=== PATIENT | male | born 1965 | race Caucasian/White ===

== ENCOUNTER 2019-09-02 09:08 | Inpatient (IN) | payer MEDICARE, MEDICAID ==
--- NOTE | 2019-09-02 09:14 | ED ---
Psych HPI <Vandana Roberts - Last Filed: 09/02/19 09:22> <Jose Guadalupe Burnham - Last Filed: 09/02/19 18:23> <Vivian Chavez - Last Filed: 09/06/19 10:39> - General Stated Complaint: Mental Health - History of Present Illness Initial Comments: 54yo male with history of depression on wellbutrin and seroquel, who is a patient at [facility] presenting to the emergency department today for cc of suicidal ideations with plan. Patient states he thought about cutting himself with a s harp razor blade in order to end his life, patient denies attempt. Denies overdose or other methods of suicidal ideation. Patient denies homicidal ideations. No fire arms in the home. Patient denies additional complaints. Patient denies any recent fever, chills, shortness of breath, chest pain, back pain, abdominal pain, nausea or vomiting, numbness or tingling, dysuria or hematuria, constipation or diarrhea, headaches or visual changes, or any other complaints. (Vandana Roberts) - Related Data Previous Rx's Medication Instructions Recorded Clotrimazole Cream [Lotrimin Cream] 1 applic TOPICAL DAILY #1 dose 09/06/19 Cyclobenzaprine [Flexeril] 10 mg PO TID PRN 30 Days tab 09/06/19 DULoxetine HCL [Cymbalta] 30 mg PO BID 30 Days capsule. 09/06/19 Diazepam [Valium] 5 mg PO BID 30 Days tab 09/06/19 Diclofenac Sodium [Voltaren] 75 mg PO BID 30 Days tab 09/06/19 Disulfiram [Antabuse] 250 mg PO DAILY 30 Days tab 09/06/19 Fluticasone Nasal [place] [Flonase 2 spr EA NOSTRIL DAILY PRN #1 spray 09/06/19 Nasal [place]] Gabapentin 800 mg PO TID 30 Days tab 09/06/19 Melatonin 20 mg PO HS PRN 30 Days tab 09/06/19 Nicotine 14Mg/24Hr Patch [Habitrol] 1 patch TRANSDERM DAILY 14 Days 09/06/19 patch Pantoprazole [Protonix] 40 mg PO HS 30 Days tablet. 09/06/19 Pravastatin Sodium [Pravachol] 40 mg PO DAILY 30 Days tab 04/11/20 QUEtiapine [SEROquel] 200 mg PO HS 30 Days tab 09/06/19 Sennosides-Docusate Sodium 1 each PO BID 30 Days tab 09/06/19 [Senokot-S] glyBURIDE [Diabeta] 5 mg PO AC-BID 30 Days tab 09/06/19 metFORMIN HCL 1,000 mg PO BID 30 Days tab 09/06/19 Allergies Allergy/AdvReac Type Severity Reaction Status Date / Time thimerosal Allergy Rash/Hives Verified 09/02/19 19:13 Review of Systems ROS Other: All systems not noted in ROS Statement are negative. <Vandana Roberts - Last Filed: 09/02/19 09:22> ROS Other: All systems not noted in ROS Statement are negative. <Jose Guadalupe Burnham - Last Filed: 09/02/19 18:23> ROS Other: All systems not noted in ROS Statement are negative. <Vivian Chavez - Last Filed: 09/06/19 10:39> ROS Statement: Those systems with pertinent positive or pertinent negative responses have been documented in the HPI. General Exam <Vandana Roberts - Last Filed: 09/02/19 09:22> - General Exam Comments Initial Comments: General: The patient is awake and alert, in no distress Eye: Pupils are equal, round and reactive to light, extra-ocular movements are intact. No nystagmus. There is normal conjunctiva bilaterally. No signs of icterus. Ears, nose, mouth and throat: There are moist mucous membranes and no oral lesions. Neck: The neck is supple, there is no tenderness or JVD. Cardiovascular: There is a regular rate and rhythm. No murmur, rub or gallop is appreciated. Respiratory: Lungs are clear to auscultation, respirations are non-labored, breath sounds are equal. No wheezes, stridor, rales, or rhonchi. Gastrointestinal: Soft, non-distended, non-tender abdomen without masses or organomegaly noted. There is no rebound or guarding present. Musculoskeletal: Normal ROM, no tenderness. Strength 5/5. Sensation intact. Radial pulses equal bilaterally 2+. Neurological: A&O x 3. CN II-XII intact grossly, There are no obvious motor or sensory deficits. Coordination appears grossly intact. Speech is normal. Skin: Skin is warm and dry and no rashes or lesions are noted. Psychiatric: Cooperative, flat affect (Vandana Roberts) Course <Jose Guadalupe Burnham - Last Filed: 09/02/19 18:23> Vital Signs 09/02/19 09/02/19 09/02/19 09:18 09:41 10:26 Temperature 99.2 F Pulse Rate 122 H 102 H Respiratory 18 18 18 Rate Blood Pressure 124/95 O2 Sat by Pulse 100 Oximetry 09/02/19 09/02/19 09/02/19 11:00 12:00 13:00 Temperature Pulse Rate Respiratory 18 18 18 Rate Blood Pressure O2 Sat by Pulse Oximetry 09/02/19 09/02/19 09/02/19 14:00 15:00 16:00 Temperature Pulse Rate 85 Respiratory 18 16 16 Rate Blood Pressure 128/88 O2 Sat by Pulse 97 Oximetry 09/02/19 09/02/19 17:00 18:28 Temperature Pulse Rate 81 Respiratory 20 18 Rate Blood Pressure 120/90 O2 Sat by Pulse 97 Oximetry - Reevaluation(s) Reevaluation #1: 09/02/19 18:25 Patient was endorsed me at shift change pending evaluation by EPS. Patient will be admitted for inpatient treatment (Jose Guadalupe Burnham) Medical Decision Making - Lab Data Result diagrams: 09/03/19 07:05 09/03/19 07:05 <Vivian Chavez - Last Filed: 09/06/19 10:39> - Medical Decision Making The patient was evaluated by social work. They are currently attempting to admit the patient to the mental health unit. I will sign the patient over to Dr. Burnham at shift change. (Vivian Chavez) - Lab Data Lab Results 09/02/19 Range/Units 09:00 Urine Color Light Yellow Urine Appearance Clear (Clear) Urine pH 6.0 (5.0-8.0) Ur Specific [place] 1.008 (1.001-1.035) Urine Protein Negative (Negative) Urine Glucose (UA) Negative (Negative) Urine Ketones 1+ H (Negative) Urine Blood Negative (Negative) Urine Nitrite Negative (Negative) Urine Bilirubin Negative (Negative) Urine Urobilinogen <2.0 (<2.0) mg/dL Ur Leukocyte Esterase Negative (Negative) Urine Opiates Screen Not Detected (NotDetected) Ur Oxycodone Screen Not Detected (NotDetected) Urine Methadone Screen Not Detected (NotDetected) Ur Propoxyphene Screen Not Detected (NotDetected) Ur Barbiturates Screen Not Detected (NotDetected) U Tricyclic Antidepress Not Detected (NotDetected) Ur Phencyclidine Scrn Not Detected (NotDetected) Ur Amphetamines Screen Not Detected (NotDetected) U Methamphetamines Scrn Not Detected (NotDetected) U Benzodiazepines Scrn Detected H (NotDetected) Urine Cocaine Screen Not Detected (NotDetected) U Marijuana (THC) Screen Not Detected (NotDetected) Disposition <Vandana Roberts - Last Filed: 09/02/19 09:22> <Jose Guadalupe Burnham - Last Filed: 09/02/19 18:23> Is patient prescribed a controlled substance at d/c from ED?: No Decision to Admit Reason: Admit from EC Decision Date: 09/02/19 Decision Time: 15:18 <Vivian Chavez - Last Filed: 09/06/19 10:39> Clinical Impression: Depression, Suicidal ideation Disposition: ADMITTED IP TO THIS HOSP
[2019-09-02 09:47] LABS: Appearance,Urine Clear (Clear); Bilirubin,Urine Negative (Negative); Blood,Urine Negative (Negative); Color,Urine Light Yellow; Glucose,Urine (UA) Negative (Negative); Ketones,Urine 1+ (Negative); Leukocyte Esterase,Urine Negative (Negative); Nitrite,Urine Negative (Negative); Protein,Urine Negative (Negative); Specific Gravity,Urine 1.008 (1.001-1.035); Urobilinogen,Urine <2.0 mg/dL (<2.0)
[2019-09-02 10:03] LABS: Amphetamine Screen,Urine Not Detected (NotDetected); Barbiturate Screen,Urine Not Detected (NotDetected); Benzodiazepines Screen,Urine Detected (NotDetected); Cocaine Screen,Urine Not Detected (NotDetected); Methadone Screen, Urine Not Detected (NotDetected); Opiate Screen,Urine Not Detected (NotDetected); Oxycodone Screen, Urine Not Detected (NotDetected); Phencyclidine Screen,Urine Not Detected (NotDetected); Tricyclic Antidepressant,Urine Not Detected (NotDetected); Urn Cannabinoid Scrn Not Detected (NotDetected)
[2019-09-02] MEDS ORDERED: LORazepam 1 MG TAB PO STA (10:12)
[2019-09-02] MEDS ORDERED: MAG HYDROX/AL HYDROX/SIMETH 30 ML CUP PO PRN (18:15)
[2019-09-02] MEDS ORDERED: ACETAMINOPHEN TAB 325 MG TAB PO PRN (18:15)
[2019-09-02] MEDS ORDERED: ZIPRASIDONE 20 MG VIAL IM PRN (18:15)
[2019-09-02] MEDS ORDERED: MAGNESIUM HYDROXIDE 2,400 MG/10 ML CUP PO PRN (18:15)
[2019-09-02] MEDS ORDERED: FLUTICASONE 50MCG/SPRAY NASAL 16GM EA NOSTRIL PRN (18:19)
[2019-09-02] MEDS ORDERED: CYCLOBENZAPRINE 10 MG TAB PO PRN (18:19)
[2019-09-02] MEDS: DIAZEPAM 5 MG TAB PO SCH (18:58)
[2019-09-02] MEDS: QUEtiapine 200 MG TAB PO SCH (21:07)
[2019-09-02] MEDS: ETODOLAC 400 MG TAB PO SCH (21:07)
[2019-09-02] MEDS: DULoxetine HCL 20 MG CAPSULE.DR PO SCH (21:07)
[2019-09-02] MEDS: GABAPENTIN 400 MG CAP PO SCH (23:11)
[2019-09-03 07:37] LABS: Glucose,Whole Blood 138 mg/dL (75-99)
[2019-09-03 07:51] LABS: Albumin 4.5 g/dL (3.5-5.0); Calcium 9.9 mg/dL (8.4-10.2); Potassium 4.4 mmol/L (3.5-5.1); Total Bilirubin 0.3 mg/dL (0.2-1.3); Total Protein 7.8 g/dL (6.3-8.2)
[2019-09-03 07:54] LABS: HCT 44.2 % (39.0-53.0); HGB 14.7 gm/dL (13.0-17.5); MCH 31.3 pg (25.0-35.0); MCHC 33.2 g/dL (31.0-37.0); MCV 94.4 fL (80.0-100.0); Mean Platelet Volume 7.2; Platelet Count 384 k/uL (150-450); RBC 4.68 m/uL (4.30-5.90); RDW 13.5 % (11.5-15.5)
[2019-09-03] MEDS: metFORMIN 500 MG TAB PO SCH ×2 (07:58→16:38)
[2019-09-03] MEDS: glipiZIDE 10 MG TAB PO SCH ×2 (07:58→17:20)
[2019-09-03] MEDS: NICOTINE 14MG/24HR PATCH TRANSDERM SCH (08:32)
[2019-09-03] MEDS: ETODOLAC 400 MG TAB PO SCH ×2 (08:32→20:19)
[2019-09-03] MEDS: PRAVASTATIN SODIUM 40 MG TAB PO SCH (08:32)
[2019-09-03] MEDS: DIAZEPAM 5 MG TAB PO SCH ×2 (08:33→20:22)
[2019-09-03] MEDS: CLOTRIMAZOLE 1% CREAM 15 GM TUBE TOPICAL SCH (08:33)
[2019-09-03] MEDS: DULoxetine HCL 20 MG CAPSULE.DR PO SCH (08:33)
[2019-09-03] MEDS: GABAPENTIN 400 MG CAP PO SCH ×3 (08:33→20:21)
[2019-09-03] MEDS: DISULFIRAM 250 MG PO SCH (08:36)
[2019-09-03] MEDS ORDERED: buPROPion SR 100 MG TABLET.ER PO SCH (09:00)
[2019-09-03 10:38] VITALS: BMI 25.7
[2019-09-03 10:56] LABS: Basophils # (M) 0.09 k/uL (0-0.2); Eosinophils # (M) 0.36 k/uL (0-0.7); Lymphocytes # (M) 2.52 k/uL (1.0-4.8); Neutrophils # (M) 5.13 k/uL (1.3-7.7); Neutrophils % (M) 57 %; Nucleated Red Blood Cells 0 /100 WBC (0-0); Total Cells Counted 100
--- NOTE | 2019-09-03 12:10 | P.HP ---
Psychiatric H&P - . H&P Date: 09/03/19 History & Physical: Allergies Allergy/AdvReac Type Severity Reaction Status Date / Time thimerosal Allergy Rash/Hives Verified 09/02/19 19:13 Vital Signs Temp 98.3 F 09/03/19 06:04 Pulse 137 H 09/03/19 06:04 Resp 16 09/03/19 06:04 BP 118/76 09/03/19 06:04 Pulse Ox 98 09/03/19 06:04 Intake & Output 09/02/19 09/03/19 09/03/19 18:59 06:59 18:59 Weight 74.7 kg 74.7 kg Laboratory Last Values WBC 9.0 k/uL (3.8-10.6) 09/03/19 07:05 RBC 4.68 m/uL (4.30-5.90) 09/03/19 07:05 Hgb 14.7 gm/dL (13.0-17.5) 09/03/19 07:05 Hct 44.2 % (39.0-53.0) 09/03/19 07:05 MCV 94.4 fL (80.0-100.0) 09/03/19 07:05 MCH 31.3 pg (25.0-35.0) 09/03/19 07:05 MCHC 33.2 g/dL (31.0-37.0) 09/03/19 07:05 RDW 13.5 % (11.5-15.5) 09/03/19 07:05 Plt Count 384 k/uL (150-450) 09/03/19 07:05 Neutrophils % (Manual) 57 % 09/03/19 07:05 Lymphocytes % (Manual) 28 % 09/03/19 07:05 Monocytes % (Manual) 10 % 09/03/19 07:05 Eosinophils % (Manual) 4 % 09/03/19 07:05 Basophils % (Manual) 1 % 09/03/19 07:05 Neutrophils # (Manual) 5.13 k/uL (1.3-7.7) 09/03/19 07:05 Lymphocytes # (Manual) 2.52 k/uL (1.0-4.8) 09/03/19 07:05 Monocytes # (Manual) 0.90 k/uL (0-1.0) 09/03/19 07:05 Eosinophils # (Manual) 0.36 k/uL (0-0.7) 09/03/19 07:05 Basophils # (Manual) 0.09 k/uL (0-0.2) 09/03/19 07:05 Nucleated RBCs 0 /100 WBC (0-0) 09/03/19 07:05 Manual Slide Review Performed 09/03/19 07:05 Sodium 139 mmol/L (137-145) 09/03/19 07:05 Potassium 4.4 mmol/L (3.5-5.1) 09/03/19 07:05 Chloride 104 mmol/L (98-107) 09/03/19 07:05 Carbon Dioxide 22 mmol/L (22-30) 09/03/19 07:05 Anion Gap 13 mmol/L 09/03/19 07:05 BUN 27 mg/dL (9-20) H 09/03/19 07:05 Creatinine 1.19 mg/dL (0.66-1.25) 09/03/19 07:05 Est GFR (CKD-EPI)AfAm 79 (>60 ml/min/1.73 sqM) 09/03/19 07:05 Est GFR (CKD-EPI)NonAf 68 (>60 ml/min/1.73 sqM) 09/03/19 07:05 Glucose 160 mg/dL (74-99) H 09/03/19 07:05 POC Glucose (mg/dL) 138 mg/dL (75-99) H 09/03/19 07:36 POC Glu Implementation Architect ID Louise Howard 09/03/19 07:36 Calcium 9.9 mg/dL (8.4-10.2) 09/03/19 07:05 Total Bilirubin 0.3 mg/dL (0.2-1.3) 09/03/19 07:05 AST 25 U/L (17-59) 09/03/19 07:05 ALT 32 U/L (4-49) 09/03/19 07:05 Alkaline Phosphatase 96 U/L (38-126) 09/03/19 07:05 Total Protein 7.8 g/dL (6.3-8.2) 09/03/19 07:05 Albumin 4.5 g/dL (3.5-5.0) 09/03/19 07:05 Triglycerides 352 mg/dL (<150) H 09/03/19 07:05 Cholesterol 212 mg/dL (<200) H 09/03/19 07:05 LDL Cholesterol, Calc 93 mg/dL (0-99) 09/03/19 07:05 HDL Cholesterol 49 mg/dL (40-60) 09/03/19 07:05 TSH 0.501 mIU/L (0.465-4.680) 09/03/19 07:05 Urine Color Light Yellow 09/02/19 09:00 Urine Appearance Clear (Clear) 09/02/19 09:00 Urine pH 6.0 (5.0-8.0) 09/02/19 09:00 Ur Specific [place] 1.008 (1.001-1.035) 09/02/19 09:00 Urine Protein Negative (Negative) 09/02/19 09:00 Urine Glucose (UA) Negative (Negative) 09/02/19 09:00 Urine Ketones 1+ (Negative) H 09/02/19 09:00 Urine Blood Negative (Negative) 09/02/19 09:00 Urine Nitrite Negative (Negative) 09/02/19 09:00 Urine Bilirubin Negative (Negative) 09/02/19 09:00 Urine Urobilinogen <2.0 mg/dL (<2.0) 09/02/19 09:00 Ur Leukocyte Esterase Negative (Negative) 09/02/19 09:00 Urine Opiates Screen Not Detected (NotDetected) 09/02/19 09:00 Ur Oxycodone Screen Not Detected (NotDetected) 09/02/19 09:00 Urine Methadone Screen Not Detected (NotDetected) 09/02/19 09:00 Ur Propoxyphene Screen Not Detected (NotDetected) 09/02/19 09:00 Ur Barbiturates Screen Not Detected (NotDetected) 09/02/19 09:00 U Tricyclic Antidepress Not Detected (NotDetected) 09/02/19 09:00 Ur Phencyclidine Scrn Not Detected (NotDetected) 09/02/19 09:00 Ur Amphetamines Screen Not Detected (NotDetected) 09/02/19 09:00 U Methamphetamines Scrn Not Detected (NotDetected) 09/02/19 09:00 U Benzodiazepines Scrn Detected (NotDetected) H 09/02/19 09:00 Urine Cocaine Screen Not Detected (NotDetected) 09/02/19 09:00 U Marijuana (THC) Screen Not Detected (NotDetected) 09/02/19 09:00 09/03/19 12:02 IDENTIFYING DATA: Patient is a 54-year-old male currently lives with her sister in a house is has 1 son and collects disability. HPI: Patient presented to the hospital yesterday and as per ER report claimed that patient was suicidal with a plan to cut himself with a razor blade. Patient was positive for benzodiazepines only and his urine drug screen before being admitted to the mental health unit. Patient was seen during group today and was directable and agreeable to take to write in the office. Patient claims that he's been struggling with depression and isolation more frequently in the past month or so. He states that he has recently moved up to [facility] to move with his sister and has minimal friends and contacts in the area. He states that he is also been concerned about the pandemic in the area which is caused him to be more isolated. He claims that his sister recently found out that he was huffing air duster in the house and caught him going out and buying cans 3 times a day. He states that he has been huffing air duster for the past 6 months and uses approximately 12 cans a day. He claims to have been taking his medications however continues to have anxiety and depression. He also comp lained of pain and arthritis in his back. He claims that he sleeps approximately 1 hour a night. Patient denies any suicidal or homicidal ideations intent or plan. At this time patient denies any auditory or visual hallucinations. Patient denies any flight of ideas and increased in goal directed behavior. Patient admits to using cigarettes daily however denies any other recreational drug use. PAST PSYCHIATRIC HISTORY: Patient states that his history of depression and anxiety and claims to have had an episode of "schizoaffective disorder". He says his last admission to the mental health unit was at [facility] approximately one year ago. He claims that he has a psychiatrist at [facility] and was supposed to go in for weekly therapy. Patient is currently on Valium, Cymbalta, Seroquel and disulfiram along with Wellbutrin. He denies any history of suicide attempts. PMH: Diabetes mellitus, back\\hip pain, obstructive sleep apnea ALLERGIES: as per EMR CHEMICAL DEPENDENCY HISTORY: as per HPI FAMILY PSYCHIATRIC/SUBSTANCE USE HISTORY: He states that his father had a "mental breakdown" however does not know what his diagnosis was. 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 He states that he is currently on disability is has 1 son and currently lives with his sister in a house.. MENTAL STATUS EXAM: General Appearance: Patient appears to be stated age is alert, directable, and attempts to cooperate. Patient appears to have poor hygiene and grooming. Behavior: Patient is seated without any agitated behavior. Attempts to cooperate. Speech: Patient's speech is fluent and nonpressured. Spoken. Mood/Affect: Patient reports their mood is depressed and anxious, affect is congruent Suicidality/Homicidality: Patient denies having any homicidal ideation intent or plan. Denies any suicidal ideations intent or plan Perceptions: Patient denies any visual hallucinations and denies any auditory hallucinations Though content/process: There is no evidence of any delusional thought content and thought process is linear and goal-directed. Preoccupied with his anxiety and depression. Memory and concentration: AOX3, grossly intact for the purposes of this session. Can spell "WORLD" backwards Judgment and insight: poor STRENGTHS/WEAKNESSES: strength is that patient is resilient. Weakness is that patient has poor judgment and is impulsive INTELLECT: average IMPRESSIONS: Major depressive disorder, severe, recurrent Anxiety disorder unspecified Inhalant abuse Nicotine dependence PLAN: -Patient is admitted under voluntary status to MHU for stabilization of psychiatric symptoms and safety. Patient signed adult voluntary form and medication consent and is placed in patient's chart. -Medications : Will restart patient on his home dose of Valium 5 mg twice a day for anxiety, Cymbalta increased to 30 mg twice a day for pain/mood, Seroquel 200 mg daily at bedtime +25 mg daily for mood stabilization/insomnia. -Geodon PRN for agitation/aggression -Patient was counselled on substance abuse and desired to cut back on use. -Patient was informed of the risks, benefits and side effects of the medication and patient verbally consented to taking the medications. Patient signed med consent form and was placed in chart. -Internal Medicine consult to perform medical evaluation and physical. -NRT - nicotine patch -SW on board for discharge planning. Encourage patient to participate in groups to work on coping skills. Patient currently has an intake date at [place] [facility] on Sunday.
[2019-09-03] MEDS: QUEtiapine 25 MG TAB PO SCH (12:25)
[2019-09-03 13:39] LABS: Hemoglobin A1C 7.1 % (4.0-6.0)
--- NOTE | 2019-09-03 20:01 | P.CONS ---
History of Present Illness - Reason for Consult Consult date: 09/03/19 - History of Present Illness Patient is a 54-year-old male with a PMH of depression and polysubstance abuse who presented to the ED with complaints of depression and suicidal ideation. 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 He reported thinking of cutting himself with a razor and his life. He was seen in the mental health unit where he reported feeling better since his admission. He did report mild right sided great toe pain which he believes is due to an ingrown nail, for which he follows with a marine designer. He denied chest pain, shortness of breath, cough, sore throat, nausea, vomiting, fever, chills, or diarrhea. He reports compliance with his medications at home. Review of Systems Pertinent positives and negatives as discussed in HPI, a complete review of systems was performed and all other systems are negative. Past Medical History Past Medical History: Diabetes Mellitus, Sleep Apnea/CPAP/BIPAP Additional Past Medical History / Comment(s): hx bilateral hip 2017 replacements History of Any Multi-Drug Resistant Organisms: None Reported Past Surgical History: Joint Replacement Additional Past Surgical History / Comment(s): Both hips replaced, right heal shatered Past Psychological History: Anxiety, Bipolar, Depression, Schizoaffective Disorder Smoking Status: Current some day smoker Past Alcohol Use History: None Reported Past Drug Use History: None Reported Medications and Allergies Home Medications Medication Instructions Recorded Confirmed Type Clotrimazole Cream [Lotrimin Cream] 1 applic TOPICAL DAILY 09/02/19 09/02/19 History Cyclobenzaprine [Flexeril] 10 mg PO TID PRN 09/02/19 09/02/19 History DULoxetine HCL [Cymbalta] 20 mg PO BID 09/02/19 09/02/19 History Diazepam [Valium] 5 mg PO BID 09/02/19 09/02/19 History Diclofenac Sodium [Voltaren] 75 mg PO BID 09/02/19 09/02/19 History Disulfiram [Antabuse] 250 mg PO DAILY 09/02/19 09/02/19 History Fluticasone Nasal [place] [Flonase 2 spr EA NOSTRIL DAILY PRN 09/02/19 09/02/19 History Nasal [place]] Gabapentin 800 mg PO TID 09/02/19 09/02/19 History Melatonin 20 mg PO HS PRN 09/02/19 09/02/19 History Omeprazole 20 mg PO HS 09/02/19 09/02/19 History Pravastatin Sodium [Pravachol] 40 mg PO DAILY 09/02/19 09/02/19 History QUEtiapine [SEROquel] 200 mg PO HS 09/02/19 09/02/19 History buPROPion HCL [Wellbutrin Sr] 200 mg PO DAILY 09/02/19 09/02/19 History diphenhydrAMINE [Benadryl] 250 mg PO HS PRN 09/02/19 09/02/19 History glyBURIDE [Diabeta] 5 mg PO AC-BID 09/02/19 09/02/19 History metFORMIN HCL 1,000 mg PO BID 09/02/19 09/02/19 History Allergies Allergy/AdvReac Type Severity Reaction Status Date / Time thimerosal Allergy Rash/Hives Verified 09/02/19 19:13 Physical Exam Vitals: Vital Signs Temp Pulse Resp BP Pulse Ox 09/03/19 06:04 98.3 F 137 H 16 118/76 98 Intake and Output 09/03/19 09/03/19 09/03/19 06:59 14:59 22:59 Other: Weight 74.7 kg General: non toxic, no distress, appears at stated age, overweight Derm: no unusual rashes/lesions no unusual ecchymoses, warm, dry Head: atraumatic, normocephalic, symmetric Eyes: EOMI, no lid lag, anicteric sclera, pupils equal round reactive to light ENT: Nose and ears atraumatic, no thrush, no pharyngeal erythema Neck: No thyromegaly, no cervical lymphadenopathy, trachea midline, supple Mouth: no lip lesion, mucus membranes moist Cardiovascular: S1S2 reg, no murmur, positive posterior tibial pulse bilateral, no edema, capillary refill less than 2 seconds Lungs: CTA bilateral, no rhonchi, no rales , no accessory muscle use Abdominal: soft, nontender to palpation, no guarding, no appreciable organomegaly, normal bowel sounds Ext: no gross muscle atrophy, toenail fungus bilaterally throughout all toes, muscle strength 5 out of 5 in all 4 extremities grossly, no contractures Neuro: CN II-XI grossly intact, light touch intact all 4 extremities, finger to nose within normal limits, Psych: Alert, oriented, appropriate affect Results CBC & Chem 7: 09/03/19 07:05 09/03/19 07:05 Labs: Abnormal Lab Results - Last 24 Hours (Table) 09/03/19 09/03/19 09/03/19 Range/Units 07:05 07:05 07:36 BUN 27 H (9-20) mg/dL Glucose 160 H (74-99) mg/dL POC Glucose (mg/dL) 138 H (75-99) mg/dL Hemoglobin A1c 7.1 H (4.0-6.0) % Triglycerides 352 H (<150) mg/dL Cholesterol 212 H (<200) mg/dL Assessment and Plan Plan: Type 2 DM -C/w home meds: Metformin and Glyburide -A1C 7.1 -Advised patient on importance of outpatient f/u with his PMD Hypertriglyceridemia -Advised patient on importance of PMD f/u with lifestyle modifications -May consider Fibrate use if persistently elevated Substance abuse -Advised patient on importance of cessation Depression with suicidal ideation -As per psych Chronic LBP -C/w home meds: Flexiril and Gabapentin Thank you for allowing us to participate in the care of this patient. We will follow peripherally. Do not hesitate to contact us with questions. Someone can be reached from the [facility] hospitalist group at all hours of the day at [phone].
[2019-09-03] MEDS: DULoxetine HCL 30 MG CAPSULE.DR PO SCH (20:19)
[2019-09-03] MEDS: QUEtiapine 200 MG TAB PO SCH (20:20)
[2019-09-04 08:06] LABS: Glucose,Whole Blood 211 mg/dL (75-99)
[2019-09-04] MEDS: PRAVASTATIN SODIUM 40 MG TAB PO SCH (08:07)
[2019-09-04] MEDS: GABAPENTIN 400 MG CAP PO SCH ×3 (08:07→21:13)
[2019-09-04] MEDS: metFORMIN 500 MG TAB PO SCH ×2 (08:07→17:16)
[2019-09-04] MEDS: glipiZIDE 10 MG TAB PO SCH ×2 (08:07→17:16)
[2019-09-04] MEDS: NICOTINE 14MG/24HR PATCH TRANSDERM SCH (08:08)
[2019-09-04] MEDS: CLOTRIMAZOLE 1% CREAM 15 GM TUBE TOPICAL SCH (08:08)
[2019-09-04] MEDS: QUEtiapine 25 MG TAB PO SCH (08:08)
[2019-09-04] MEDS: ETODOLAC 400 MG TAB PO SCH ×2 (08:08→20:34)
[2019-09-04] MEDS: DULoxetine HCL 30 MG CAPSULE.DR PO SCH ×2 (08:08→20:34)
[2019-09-04] MEDS: DIAZEPAM 5 MG TAB PO SCH ×2 (08:08→20:36)
[2019-09-04] MEDS: DISULFIRAM 250 MG PO SCH (08:09)
--- NOTE | 2019-09-04 10:07 | P.PN ---
Progress Note - Text Progress Note Date: 09/04/19 Interval History: Patient was seen taking part in group this morning and was directable and agre eable to speak with magnetic tape typewriter operator in the office. Patient appeared of fair hygiene and grooming and also wearing street clothing and was fairly talkative today. Patient appeared to have improvement in his insight and judgment and spoke about the guilt he has about huffing canisters in his sister's home and states that "it was disrespectful and I'm glad she did what she did". He states that he is continuing to look forward to going to [place] for substance abuse treatment. He states that he is going to groups and trying to work on his coping skills. He states that today he feels a little lethargic as his Wellbutrin was discontinued and he has Seroquel on board however states that he would like to continue on the same dose and will see tomorrow if he liked to have his Seroquel titrated down. He states that he slept well last night and his anxiety and mood have been gradually improving. At this time patient denies any suicidal or homical ideations, intent or plan. Patient denies any auditory, visual hallucinations and denies any paranoia or delusions. Mental Status Exam: General Appearance: Patient appears to be stated age is alert, directable, and attempts to cooperate. Patient appears to have improving hygiene and grooming. Wearing street clothing. Behavior: Patient is seated without any agitated behavior. Attempts to cooperate. Speech: Patient's speech is fluent and nonpressured. Spoken. Mood/Affect: Patient reports their mood is gradually improving, affect is congruent and brighter affect. Suicidality/Homicidality: Patient denies having any homicidal ideation intent or plan. Denies any suicidal ideations intent or plan Perceptions: Patient denies any visual hallucinations and denies any auditory hallucinations Though content/process: There is no evidence of any delusional thought content and thought process is linear and goal-directed. Memory and concentration: AOX3, grossly intact for the purposes of this session. Judgment and insight: poor, mildly improving. Assessment Major depressive disorder, severe, recurrent Anxiety disorder unspecified Inhalant abuse Nicotine dependence Plan: -Patient continues to meet criteria for inpatient psychiatric admission for symptom stabilization and safety. Patient has signed adult voluntary form and medication consent and was placed in patient's chart. -Medications: Continue with Valium 5 mg twice a day for anxiety, Cymbalta 30 mg twice a day for mood/pain, Seroquel 200 mg daily at bedtime at bedtime +25 mg daily for mood stabilization/insomnia. -When necessary Abril for agitation/aggression. -NRT - nicotine patch -SW on board for discharge planning. Encouraged the patient to participate in milieu. Patient currently has an intake date at [place] [facility] on Sunday.
[2019-09-04] MEDS: QUEtiapine 200 MG TAB PO SCH (20:34)
[2019-09-05 07:34] LABS: Glucose,Whole Blood 161 mg/dL (75-99)
[2019-09-05] MEDS: CLOTRIMAZOLE 1% CREAM 15 GM TUBE TOPICAL SCH (07:38)
[2019-09-05] MEDS: glipiZIDE 10 MG TAB PO SCH ×2 (07:38→19:31)
[2019-09-05] MEDS: metFORMIN 500 MG TAB PO SCH ×2 (07:38→19:31)
[2019-09-05] MEDS: DISULFIRAM 250 MG PO SCH (07:39)
[2019-09-05] MEDS: DIAZEPAM 5 MG TAB PO SCH ×2 (07:39→21:08)
[2019-09-05] MEDS: ETODOLAC 400 MG TAB PO SCH ×2 (07:40→21:08)
[2019-09-05] MEDS: DULoxetine HCL 30 MG CAPSULE.DR PO SCH ×2 (07:40→21:08)
[2019-09-05] MEDS: GABAPENTIN 400 MG CAP PO SCH ×3 (07:41→21:09)
[2019-09-05] MEDS: PRAVASTATIN SODIUM 40 MG TAB PO SCH (07:41)
[2019-09-05] MEDS: NICOTINE 14MG/24HR PATCH TRANSDERM SCH (07:41)
[2019-09-05] MEDS: QUEtiapine 25 MG TAB PO SCH (07:41)
--- NOTE | 2019-09-05 10:34 | P.PN ---
Progress Note - Text Progress Note Date: 09/05/19 Interval History: Patient was seen wandering the halls and near the nurse's desk this morning and was directable and agreeable to speak with quality analyst/technical writer in the office. Patient appeared to have improving hygiene and grooming and states that he slept well last night on his Seroquel. He states that he also declined his Seroquel this morning as it was making him feel "too sleepy" yesterday and states that his anxiety has been under better control now that the Wellbutrin has been discontinued. He claims that he has been having issues with his roommate who "acts like a 14-year-old and a 20-year-old body". He did state that he is trying to keep his distance from him. Patient appeared to have improvement in his insight and judgment. He states that he is continuing to look forward to going to [place] for substance abuse treatment and states that it is going to be a "long road for recovery" and also spoke about coming out of a "great group this morning". At this time patient denies any suicidal or homical ideations, intent or plan. Patient denies any auditory, visual hallucinations and denies any paranoia or delusions. Mental Status Exam: General Appearance: Patient appears to be stated age is alert, directable, and attempts to cooperate. Patient appears to have improving hygiene and grooming. Wearing street clothing. Behavior: Patient is seated without any agitated behavior. Attempts to cooperate. Speech: Patient's speech is fluent and nonpressured. Spoken. Mood/Affect: Patient reports their mood is gradually improving, affect is congruent and brighter affect. Suicidality/Homicidality: Patient denies having any homicidal ideation intent or plan. Denies any suicidal ideations intent or plan Perceptions: Patient denies any visual hallucinations and denies any auditory hallucinations Though content/process: There is no evidence of any delusional thought content and thought process is linear and goal-directed. More future oriented. Memory and concentration: AOX3, grossly intact for the purposes of this session. Judgment and insight: poor, mildly improving. Assessment Major depressive disorder, severe, recurrent Anxiety disorder unspecified Inhalant abuse Nicotine dependence Plan: -Patient continues to meet criteria for inpatient psychiatric admission for s ymptom stabilization and safety. Patient has signed adult voluntary form and medication consent and was placed in patient's chart. -Medications: Continue with Valium 5 mg twice a day for anxiety, Cymbalta 30 mg twice a day for mood/pain, Seroquel 200 mg daily at bedtime for mood stabilization/insomnia, discontinued morning dose of Seroquel due to lethargy. -When necessary Abril for agitation/aggression. -NRT - nicotine patch -SW on board for discharge planning. Encouraged the patient to participate in milieu. Patient currently has an intake date at [facility] on Sunday.
[2019-09-05] MEDS: SENNOSIDES-DOCUSATE SODIUM 1 EACH TAB PO SCH ×2 (10:36→21:09)
[2019-09-05 17:42] LABS: Glucose,Whole Blood 114 mg/dL (75-99)
[2019-09-05] MEDS: QUEtiapine 200 MG TAB PO SCH (21:09)
[2019-09-05] MEDS: PANTOPRAZOLE 40 MG TABLET PO SCH (21:09)
[2019-09-06 07:45] LABS: Glucose,Whole Blood 135 mg/dL (75-99)
[2019-09-06] MEDS: metFORMIN 500 MG TAB PO SCH ×2 (07:53→17:40)
[2019-09-06] MEDS: glipiZIDE 10 MG TAB PO SCH ×2 (07:53→17:40)
[2019-09-06] MEDS: DISULFIRAM 250 MG PO SCH (07:54)
[2019-09-06] MEDS: DULoxetine HCL 30 MG CAPSULE.DR PO SCH ×2 (07:54→21:00)
[2019-09-06] MEDS: CLOTRIMAZOLE 1% CREAM 15 GM TUBE TOPICAL SCH (07:54)
[2019-09-06] MEDS: DIAZEPAM 5 MG TAB PO SCH (07:54)
[2019-09-06] MEDS: ETODOLAC 400 MG TAB PO SCH ×2 (07:55→21:59)
[2019-09-06] MEDS: PRAVASTATIN SODIUM 40 MG TAB PO SCH (07:56)
[2019-09-06] MEDS: NICOTINE 14MG/24HR PATCH TRANSDERM SCH (07:56)
[2019-09-06] MEDS: GABAPENTIN 400 MG CAP PO SCH ×3 (07:56→21:00)
[2019-09-06] MEDS: SENNOSIDES-DOCUSATE SODIUM 1 EACH TAB PO SCH ×2 (07:56→21:59)
--- NOTE | 2019-09-06 08:25 | P.PN ---
Progress Note - Text Progress Note Date: 09/06/19 Interval History: Patient was seen after breakfast this morning and was directable and agreeable to speak with technical writer and editor in the office. Patient appeared to have improving hygiene and grooming and states that he slept well last night. Patient states that he felt a little bit sad last night after listening to the news in the evening time however stated that he usually doesn't watch the news and went to go to bed afterwards. Patient requested to have his Valium changed from nighttime dosing to 4 PM dosing. He states that he is continuing to look forward to going to [place] for substance abuse treatment tomorrow. Patient is continuing to go to groups. At this time patient denies any suicidal or homical ideations, intent or plan. Patient denies any auditory, visual hallucinations and denies any paranoia or delusions. Mental Status Exam: General Appearance: Patient appears to be stated age is alert, directable, and attempts to cooperate. Patient appears to have improving hygiene and grooming. Wearing street clothing. Behavior: Patient is seated without any agitated behavior. Attempts to cooperate. Speech: Patient's speech is fluent and nonpressured. Spoken. Mood/Affect: Patient reports their mood is gradually improving, affect is congruent and brighter affect. Suicidality/Homicidality: Patient denies having any homicidal ideation intent or plan. Denies any suicidal ideations intent or plan Perceptions: Patient denies any visual hallucinations and denies any auditory hallucinations Though content/process: There is no evidence of any delusional thought content and thought process is linear and goal-directed. More future oriented. Memory and concentration: AOX3, grossly intact for the purposes of this session. Judgment and insight: mildly improving. Assessment Major depressive disorder, severe, recurrent Anxiety disorder unspecified Inhalant abuse Nicotine dependence Plan: -Patient continues to meet criteria for inpatient psychiatric admission for symptom stabilization and safety. Patient has signed adult voluntary form and medication consent and was placed in patient's chart. -Medications: Continue with Valium 5 mg twice a day for anxiety, Cymbalta 30 mg twice a day for mood/pain, Seroquel 200 mg daily at bedtime for mood stabilization/insomnia. -When necessary Geodon for agitation/aggression. -NRT - nicotine patch -SW on board for discharge planning. Encouraged the patient to participate in milieu. Patient currently has an intake date at [facility] on Sunday. Discharge tomorrow morning.
[2019-09-06] MEDS ORDERED: DIAZEPAM 5 MG TAB PO SCH (16:00)
[2019-09-06] MEDS: PANTOPRAZOLE 40 MG TABLET PO SCH (21:00)
[2019-09-06] MEDS: QUEtiapine 200 MG TAB PO SCH (21:00)
[2019-09-07 05:52] LABS: Glucose,Whole Blood 138 mg/dL (75-99)
[2019-09-07] MEDS: ETODOLAC 400 MG TAB PO SCH (07:05)
[2019-09-07] MEDS: metFORMIN 500 MG TAB PO SCH (07:05)
[2019-09-07] MEDS: CLOTRIMAZOLE 1% CREAM 15 GM TUBE TOPICAL SCH (07:05)
[2019-09-07] MEDS: PRAVASTATIN SODIUM 40 MG TAB PO SCH (07:06)
[2019-09-07] MEDS: DULoxetine HCL 30 MG CAPSULE.DR PO SCH (07:06)
[2019-09-07] MEDS: GABAPENTIN 400 MG CAP PO SCH (07:06)
[2019-09-07 07:26] VITALS: BP 122/79; PULSE 124; RESP 16; TEMP 97.4
[2019-09-07] MEDS: glipiZIDE 10 MG TAB PO SCH (08:06)
[2019-09-07] MEDS: DISULFIRAM 250 MG PO SCH (08:07)
[2019-09-07] MEDS: SENNOSIDES-DOCUSATE SODIUM 1 EACH TAB PO SCH (08:08)
[2019-09-07] MEDS: NICOTINE 14MG/24HR PATCH TRANSDERM SCH (08:08)
--- NOTE | 2019-09-07 08:21 | P.DS ---
Providers Date of admission: 09/02/19 18:12 Expected date of discharge: 09/07/19 Attending physician: Conrado David MD Consults: 09/02/19 18:15 Consult Physician Routine Consulting Provider: Sourav Sloan Consult Reason/Comments: medical management Do you want consulting provider notified?: Yes Primary care physician: Cuauhtemoc Hardy MD - Discharge Diagnosis(es) (1) Major depressive disorder, recurrent severe without psychotic features Current Visit: Yes Status: Acute Priority: High (2) Anxiety disorder Current Visit: Yes Status: Acute Priority: Medium (3) Inhalant abuse Current Visit: Yes Status: Acute Priority: High (4) Nicotine dependence Current Visit: Yes Status: Acute Priority: Low Hospital Course: Admission HPI: Patient is a 54-year-old male currently lives with her sister in a house is has 1 son and collects disability. Patient presented to the hospital yesterday and as per ER report claimed that patient was suicidal with a plan to cut himself with a razor blade. Patient was positive for benzodiazepines only and his urine drug screen before being admitted to the mental health unit. Patient was seen during group today and was directable and agreeable to take to write in the office. Patient claims that he's been struggling with depression and isolation more frequently in the past month or so. He states that he has recently moved up to [facility] to move with his sister and has minimal friends and contacts in the area. He states that he is also been concerned about the pandemic in the area which is caused him to be more isolated. He claims that his sister recently found out that he was huffing air duster in the house and caught him going out and buying cans 3 times a day. He states that he has been huffing air duster for the past 6 months and uses approximately 12 cans a day. He claims to have been taking his medications however continues to have anxiety and depression. He also complained of pain and arthritis in his back. He claims that he sleeps approximately 1 hour a night. Patient denies any suicidal or homicidal ideations intent or plan. At this time patient denies any auditory or visual hallucinations. Patient denies any flight of ideas and increased in goal directed behavior. Patient admits to using cigarettes daily however denies any other recreational drug use. Hospital course: Upon admission to the unit patient was initially depressed and feeling hopeless. Patient was however directable and agreeable to commence treatment. Patient got along well with other patients on the unit and followed unit protocol. Patient was compliant with the medications and denied any side effects throughout hospital course. Patient was started on Seroquel titrated up to a dose of 200 mg nightly for mood stabilization/insomnia and also restarted on his home dose of Valium 5 mg twice a day for anxiety. Patient was restarted on Cymbalta however titrated up to a dose of 30 mg twice a day for mood/pain. Patient spoke of his stressors and engaged in therapy both group and individual. Patient was also seen by medical team for history and physical exam. Throughout the course of the hospitalization patient gradually improved with regards to mood, anxiety, sleep and became future oriented with improved insight and judgment. On the day of discharge patient denied any suicidal or homicidal ideations intent or plan denied any auditory or visual hallucinations. Patient endorsed wanting to live for his health and his future. The patient denied any access to guns or weapons. Patient denied any paranoia and did not endorse any delusions. Patient does have a significant history of substance abuse and was counseled on abstaining from all substances including alcohol and marijuana. Patient was agreeable to go to [facility] for substance inpatient abuse treatment. Patient was also counseled on the medications and need for regular compliance and was encouraged to follow-up with their outpatient appointment for mental health and also for primary care. Mental status exam: General Appearance: Patient appears to be stated age is alert, pleasant, and cooperative. Patient is in no acute distress and has fair hygiene and grooming Behavior: Patient is calmly seated without any agitated behavior. Cooperative. Speech: Patient's speech is fluent and nonpressured. Mood/Affect: Patient reports their mood is "better", affect is congruent and euthymic. Suicidality/Homicidality: Patient denies having any suicidal or homicidal ideation intent or plan. Perceptions: Patient denies any auditory or visual hallucinations. Though content/process: There is no evidence of any delusional thought content and thought process is linear and goal-directed. More future oriented. Memory and concentration: AOX3, grossly intact for the purposes of this session. Can spell "WORLD" backwards correctly. Judgment and insight: improved with guarded prognosis Impression: Major depressive disorder, severe, recurrent, without psychotic features Anxiety disorder unspecified Inhalant abuse Nicotine dependence Plan: -Continue with discharge today as patient has improved and stabilized p sychiatrically and is not currently an imminent threat to himself and/or others. -Continue medications: Continue with Seroquel 200 mg daily at bedtime for mood stabilization/insomnia, Valium 5 mg twice a day for anxiety, Cymbalta 30 mg twice a day for mood/pain. -Patient was counseled on the need for medication compliance and appropriate follow-up at mental health and also primary care for medical issues. Patient verbalized understanding and agreed. -concrete worker helped coordinate patient's ride and intake at [place] for inpatient substance abuse rehab. Social work also to arrange for patients follow up appointments for psychiatric care along with follow up with primary care provider. -Patient counseled on abstaining from recreational drugs and marijuana and alcohol. Was informed/educated on the adverse effects on their physical and mental health. Patient verbally agreed and understood. -Patient was instructed to return to the hospital or seek immediate medical care if their psychiatric or medical symptoms do worsen or reoccur. Allergies Allergy/AdvReac Type Severity Reaction Status Date / Time thimerosal Allergy Rash/Hives Verified 09/02/19 19:13 Laboratory Results WBC 9.0 k/uL (3.8-10.6) 09/03/19 07:05 RBC 4.68 m/uL (4.30-5.90) 09/03/19 07:05 Hgb 14.7 gm/dL (13.0-17.5) 09/03/19 07:05 Hct 44.2 % (39.0-53.0) 09/03/19 07:05 MCV 94.4 fL (80.0-100.0) 09/03/19 07:05 MCH 31.3 pg (25.0-35.0) 09/03/19 07:05 MCHC 33.2 g/dL (31.0-37.0) 09/03/19 07:05 RDW 13.5 % (11.5-15.5) 09/03/19 07:05 Plt Count 384 k/uL (150-450) 09/03/19 07:05 Neutrophils % (Manual) 57 % 09/03/19 07:05 Lymphocytes % (Manual) 28 % 09/03/19 07:05 Monocytes % (Manual) 10 % 09/03/19 07:05 Eosinophils % (Manual) 4 % 09/03/19 07:05 Basophils % (Manual) 1 % 09/03/19 07:05 Neutrophils # (Manual) 5.13 k/uL (1.3-7.7) 09/03/19 07:05 Lymphocytes # (Manual) 2.52 k/uL (1.0-4.8) 09/03/19 07:05 Monocytes # (Manual) 0.90 k/uL (0-1.0) 09/03/19 07:05 Eosinophils # (Manual) 0.36 k/uL (0-0.7) 09/03/19 07:05 Basophils # (Manual) 0.09 k/uL (0-0.2) 09/03/19 07:05 Nucleated RBCs 0 /100 WBC (0-0) 09/03/19 07:05 Manual Slide Review Performed 09/03/19 07:05 Sodium 139 mmol/L (137-145) 09/03/19 07:05 Potassium 4.4 mmol/L (3.5-5.1) 09/03/19 07:05 Chloride 104 mmol/L (98-107) 09/03/19 07:05 Carbon Dioxide 22 mmol/L (22-30) 09/03/19 07:05 Anion Gap 13 mmol/L 09/03/19 07:05 BUN 27 mg/dL (9-20) H 09/03/19 07:05 Creatinine 1.19 mg/dL (0.66-1.25) 09/03/19 07:05 Est GFR (CKD-EPI)AfAm 79 (>60 ml/min/1.73 sqM) 09/03/19 07:05 Est GFR (CKD-EPI)NonAf 68 (>60 ml/min/1.73 sqM) 09/03/19 07:05 Glucose 160 mg/dL (74-99) H 09/03/19 07:05 POC Glucose (mg/dL) 138 mg/dL (75-99) H 09/07/19 05:51 POC Glu Loan Review Analyst ID Ajit Pete 09/07/19 05:[address] Glu mg/dL 157 09/03/19 07:05 Hemoglobin A1c 7.1 % (4.0-6.0) H 09/03/19 07:05 Calcium 9.9 mg/dL (8.4-10.2) 09/03/19 07:05 Total Bilirubin 0.3 mg/dL (0.2-1.3) 09/03/19 07:05 AST 25 U/L (17-59) 09/03/19 07:05 ALT 32 U/L (4-49) 09/03/19 07:05 Alkaline Phosphatase 96 U/L (38-126) 09/03/19 07:05 Total Protein 7.8 g/dL (6.3-8.2) 09/03/19 07:05 Albumin 4.5 g/dL (3.5-5.0) 09/03/19 07:05 Triglycerides 352 mg/dL (<150) H 09/03/19 07:05 Cholesterol 212 mg/dL (<200) H 09/03/19 07:05 LDL Cholesterol, Calc 93 mg/dL (0-99) 09/03/19 07:05 HDL Cholesterol 49 mg/dL (40-60) 09/03/19 07:05 TSH 0.501 mIU/L (0.465-4.680) 09/03/19 07:05 Urine Color Light Yellow 09/02/19 09:00 Urine Appearance Clear (Clear) 09/02/19 09:00 Urine pH 6.0 (5.0-8.0) 09/02/19 09:00 Ur Specific [place] 1.008 (1.001-1.035) 09/02/19 09:00 Urine Protein Negative (Negative) 09/02/19 09:00 Urine Glucose (UA) Negative (Negative) 09/02/19 09:00 Urine Ketones 1+ (Negative) H 09/02/19 09:00 Urine Blood Negative (Negative) 09/02/19 09:00 Urine Nitrite Negative (Negative) 09/02/19 09:00 Urine Bilirubin Negative (Negative) 09/02/19 09:00 Urine Urobilinogen <2.0 mg/dL (<2.0) 09/02/19 09:00 Ur Leukocyte Esterase Negative (Negative) 09/02/19 09:00 Urine Opiates Screen Not Detected (NotDetected) 09/02/19 09:00 Ur Oxycodone Screen Not Detected (NotDetected) 09/02/19 09:00 Urine Methadone Screen Not Detected (NotDetected) 09/02/19 09:00 Ur Propoxyphene Screen Not Detected (NotDetected) 09/02/19 09:00 Ur Barbiturates Screen Not Detected (NotDetected) 09/02/19 09:00 U Tricyclic Antidepress Not Detected (NotDetected) 09/02/19 09:00 Ur Phencyclidine Scrn Not Detected (NotDetected) 09/02/19 09:00 Ur Amphetamines Screen Not Detected (NotDetected) 09/02/19 09:00 U Methamphetamines Scrn Not Detected (NotDetected) 09/02/19 09:00 U Benzodiazepines Scrn Detected (NotDetected) H 09/02/19 09:00 Urine Cocaine Screen Not Detected (NotDetected) 09/02/19 09:00 U Marijuana (THC) Screen Not Detected (NotDetected) 09/02/19 09:00 Vital Signs Temp 97.4 F L 09/07/19 06:20 Pulse 124 H 09/07/19 06:20 Resp 16 09/07/19 06:20 BP 122/79 09/07/19 06:20 Pulse Ox 99 09/06/19 08:00 Patient Condition at Discharge: Stable Plan - Discharge Summary Discharge Rx Participant: No New Discharge Prescriptions: New DULoxetine HCL [Cymbalta] 30 mg PO BID 30 Days capsule. Nicotine 14Mg/24Hr Patch [Habitrol] 1 patch TRANSDERM DAILY 14 Days patch Pantoprazole [Protonix] 40 mg PO HS 30 Days tablet. Sennosides-Docusate Sodium [Senokot-S] 1 each PO BID 30 Days tab Gabapentin [Neurontin] 800 mg PO TID 30 Days #180 cap Diazepam [Valium] 5 mg PO BID 30 Days #60 tab Continue Disulfiram [Antabuse] 250 mg PO DAILY 30 Days tab glyBURIDE [Diabeta] 5 mg PO AC-BID 30 Days tab Cyclobenzaprine [Flexeril] 10 mg PO TID PRN 30 Days tab PRN Reason: Muscle Spasm Fluticasone Nasal [place] [Flonase Nasal [place]] 2 spr EA NOSTRIL DAILY PRN #1 spray PRN Reason: Allergy Symptoms Clotrimazole Cream [Lotrimin Cream] 1 applic TOPICAL DAILY #1 dose Melatonin 20 mg PO HS PRN 30 Days tab PRN Reason: Insomnia metFORMIN HCL 1,000 mg PO BID 30 Days tab Pravastatin Sodium [Pravachol] 40 mg PO DAILY 30 Days tab QUEtiapine [SEROquel] 200 mg PO HS 30 Days tab Diclofenac Sodium [Voltaren] 75 mg PO BID 30 Days tab Discontinued diphenhydrAMINE [Benadryl] 250 mg PO HS PRN PRN Reason: Insomnia Omeprazole 20 mg PO HS Gabapentin 800 mg PO TID DULoxetine HCL [Cymbalta] 20 mg PO BID Diazepam [Valium] 5 mg PO BID buPROPion HCL [Wellbutrin Sr] 200 mg PO DAILY Discharge Medication List Clotrimazole Cream [Lotrimin Cream] 1 applic TOPICAL DAILY #1 dose 09/06/19 [Rx] Cyclobenzaprine [Flexeril] 10 mg PO TID PRN 30 Days tab 09/06/19 [Rx] DULoxetine HCL [Cymbalta] 30 mg PO BID 30 Days capsule. 09/06/19 [Rx] Diazepam [Valium] 5 mg PO BID 30 Days #60 tab 09/06/19 [Rx] Diclofenac Sodium [Voltaren] 75 mg PO BID 30 Days tab 09/06/19 [Rx] Disulfiram [Antabuse] 250 mg PO DAILY 30 Days tab 09/06/19 [Rx] Fluticasone Nasal [place] [Flonase Nasal [place]] 2 spr EA NOSTRIL DAILY PRN #1 spray 09/06/19 [Rx] Gabapentin [Neurontin] 800 mg PO TID 30 Days #180 cap 09/06/19 [Rx] Melatonin 20 mg PO HS PRN 30 Days tab 09/06/19 [Rx] Nicotine 14Mg/24Hr Patch [Habitrol] 1 patch TRANSDERM DAILY 14 Days patch 09/06/19 [Rx] Pantoprazole [Protonix] 40 mg PO HS 30 Days tablet. 09/06/19 [Rx] Pravastatin Sodium [Pravachol] 40 mg PO DAILY 30 Days tab 09/06/19 [Rx] QUEtiapine [SEROquel] 200 mg PO HS 30 Days tab 09/06/19 [Rx] Sennosides-Docusate Sodium [Senokot-S] 1 each PO BID 30 Days tab 09/06/19 [Rx] glyBURIDE [Diabeta] 5 mg PO AC-BID 30 Days tab 09/06/19 [Rx] metFORMIN HCL 1,000 mg PO BID 30 Days tab 09/06/19 [Rx] Follow up Appointment(s)/Referral(s): intake,intake [Other] - 09/07/19 11:00 am Cuauhtemoc Hardy MD [Primary Care Provider] - 1-2 days Patient Instructions/Handouts: Depression (DC) Activity/Diet/Wound Care/Special Instructions: Activity and diet as tolerated. Avoid the use of street drugs and alcohol. Take all medications as prescribed. When you are in need of refills on your medications please contact your medical provider and/or outpatient psychiatrist to have this done. Please go to scheduled outpatient appointment for aftercare. If symptoms return or become worse call the crisis line at and/or go to the nearest emergency room for an evaluation. Discharge Disposition: HOME SELF-CARE
[2019-09-07] MEDS ORDERED: DIAZEPAM 5 MG TAB PO SCH (09:00)
== END 2019-09-07 08:30 | DRG 885 ==
LOC: EC 09:08 → 3MHU 18:12
PROVIDERS: ADMIT Psychiatry & Neurology Psychiatry; ATTEND Psychiatry & Neurology Psychiatry
DX: F33.2 Major depressive disorder, recurrent severe without psychotic features (principal); R45.851 Suicidal ideations; E11.9 Type 2 diabetes mellitus without complications; F41.9 Anxiety disorder, unspecified; F18.10 Inhalant abuse, uncomplicated; G47.00 Insomnia, unspecified; G47.33 Obstructive sleep apnea (adult) (pediatric); E78.1 Pure hyperglyceridemia; G89.29 Other chronic pain; M54.5 Low back pain; M47.9 Spondylosis, unspecified; L60.0 Ingrowing nail; E66.3 Overweight; Z68.25 Body mass index [BMI] 25.0-25.9, adult; F17.210 Nicotine dependence, cigarettes, uncomplicated; Z71.6 Tobacco abuse counseling; Z79.84 Long term (current) use of oral hypoglycemic drugs; Z79.899 Other long term (current) drug therapy; Z96.643 Presence of artificial hip joint, bilateral; Z99.89 Dependence on other enabling machines and devices; Z71.3 Dietary counseling and surveillance; Z88.8 Allergy status to other drugs, medicaments and biological substances
CPT/HCPCS: 80053; 80061; 80306; 81003; 82075; 83036; 84443; 85025; 99285

== ENCOUNTER 2020-02-22 05:39 | Emergency (ER) | payer MEDICARE, OTHER ==
[2020-02-22 05:47] VITALS: BP 132/108; PULSE 117; RESP 18; TEMP 100.2
--- NOTE | 2020-02-22 06:13 | ED ---
Psych HPI - General Chief Complaint: Psychiatric Symptoms Stated Complaint: Depression Time Seen by Provider: 02/22/20 05:52 Source: patient, EMS Mode of arrival: EMS - History of Present Illness Initial Comments: Andrea is a 55-year-old male with extensive history of depression, anxiety and substance abuse. Patient reports that he was recently in rehab and was doing quite well however while in rehab he was taken off all of his benzos and was not prescribed any discharge. Patient reports that all the stress of life over the past couple months of the bed too much for him. He has established care with a new psychiatrist who is scheduled to see this Sunday through [facility], Dr. Waller. He has been following for therapy. He states that because he does not have medications for his anxiety and because he is very anxious and overwhelmed by with everything going on in the world right now he started drinking again a few weeks ago. She states that he does not want to drink, he drank last night finish drinking at midnight. This morning decided to have EMS bring him to the hospital for help with sobriety. The patient denies suicidal or homicidal ideations. He states he simply feels overwhelmed. - Related Data Previous Rx's Medication Instructions Recorded RX: Clotrimazole Cream [Lotrimin 1 applic TOPICAL DAILY #1 dose 09/06/19 Cream] RX: Cyclobenzaprine [Flexeril] 10 mg PO TID PRN 30 Days tab 09/06/19 RX: DULoxetine HCL [Cymbalta] 30 mg PO BID 30 Days capsule. 09/06/19 RX: Diclofenac Sodium [Voltaren] 75 mg PO BID 30 Days tab 09/06/19 RX: Disulfiram [Antabuse] 250 mg PO DAILY 30 Days tab 09/06/19 RX: Fluticasone Nasal [place] 2 spr EA NOSTRIL DAILY PRN #1 spray 09/06/19 [Flonase Nasal [place]] RX: Gabapentin [Neurontin] 800 mg PO TID 30 Days #180 cap 09/06/19 RX: Melatonin 20 mg PO HS PRN 30 Days tab 09/06/19 RX: Nicotine 14Mg/24Hr Patch 1 patch TRANSDERM DAILY 14 Days 09/06/19 [Habitrol] patch RX: Pantoprazole [Protonix] 40 mg PO HS 30 Days tablet. 09/06/19 RX: Pravastatin Sodium [Pravachol] 40 mg PO DAILY 30 Days tab 09/06/19 RX: QUEtiapine [SEROquel] 200 mg PO HS 30 Days tab 09/06/19 RX: Sennosides-Docusate Sodium 1 each PO BID 30 Days tab 09/06/19 [Senokot-S] RX: diazePAM [Valium] 5 mg PO BID 30 Days #60 tab 09/06/19 RX: glyBURIDE [Diabeta] 5 mg PO AC-BID 30 Days tab 09/06/19 RX: metFORMIN HCL 1,000 mg PO BID 30 Days tab 09/06/19 chlordiazePOXIDE HCl [Librium] 50 mg PO QID #34 capsule 02/22/20 Allergies Allergy/AdvReac Type Severity Reaction Status Date / Time thimerosal Allergy Rash/Hives Verified 02/22/20 05:47 Review of Systems ROS Statement: Those systems with pertinent positive or pertinent negative responses have been documented in the HPI. ROS Other: All systems not noted in ROS Statement are negative. Past Medical History Past Medical History: Diabetes Mellitus, Sleep Apnea/CPAP/BIPAP Additional Past Medical History / Comment(s): hx bilateral hip 2017 replacements History of Any Multi-Drug Resistant Organisms: None Reported Past Surgical History: Joint Replacement Additional Past Surgical History / Comment(s): Both hips replaced, right heal shatered Past Psychological History: Anxiety, Bipolar, Depression, Schizoaffective Disorder Past Alcohol Use History: None Reported Past Drug Use History: None Reported General Exam - General Exam Comments Initial Comments: Physical Exam GENERAL: Patient is well-developed and well-nourished. Patient is nontoxic and well-hydrated and is in no distress. HENT: Normocephalic, Atraumatic. EYES: PERRL, EOMI PULMONARY: Unlabored respirations. CARDIOVASCULAR: RRR Warm and well perfused extremities ABDOMEN: Non-distended SKIN: No rashes or bruising : Deferred NEUROLOGIC: Alert and oriented Normal speech Normal gait MUSCULOSKELETAL: Moving all extremities with no apparent injury PSYCHIATRIC: No SI/HI Limitations: no limitations Course Vital Signs 02/22/20 05:40 Temperature 100.2 F H Pulse Rate 117 H Respiratory 18 Rate Blood Pressure 132/108 O2 Sat by Pulse 95 Oximetry Medical Decision Making - Medical Decision Making Patient was seen and evaluated, history is obtained from the patient 55-year-old with a history of generalized anxiety, not currently on any when necessary anxiety medications. He states that he has been using alcohol to self medicate and wants help so that he is no longer using alcohol. Patient does have outpatient therapy as well as her outpatient psychiatrist, is scheduled to see a psychiatrist on Sunday of this week. She was previously prescribed Valium long-term, he has previously been given Librium for alcohol withdrawal. Discussed with patient the option for a Librium taper until he can see a psychiatrist patient is agreeable to this. At this time further workup is not indicated patient is not suicidal or homicidal delusional, a danger to himself or others. Patient does not require psychiatric evaluation at this time and will be discharged home. Disposition Clinical Impression: Acute anxiety, Alcohol abuse, Adjustment reaction of adult life Disposition: HOME SELF-CARE Additional Instructions: Take Librium as prescribed DO NOT DRINK ALCOHOL WHILE TAKING LIBRIUM - THIS COULD RESULT IN OVERDOSE AND Follow up with Dr Waller on Sunday as scheduled Call 911 or return to the ER or any worsening condition or development of new or concerning symptoms Prescriptions: chlordiazePOXIDE HCl [Librium] 50 mg PO QID #34 capsule Is patient prescribed a controlled substance at d/c from ED?: Yes Referrals: Marlen Mobley MD [Primary Care Provider] - 1-2 days
[2020-02-22] MEDS ORDERED: chlordiazePOXIDE 25 MG CAP PO STA (06:25)
== END 2020-02-22 06:51 | disposition home or self-care (01) ==
LOC: EC 05:39
DX: F41.9 Anxiety disorder, unspecified (principal); F10.10 Alcohol abuse, uncomplicated; F43.20 Adjustment disorder, unspecified; G47.33 Obstructive sleep apnea (adult) (pediatric); Z88.8 Allergy status to other drugs, medicaments and biological substances; Y90.9 Presence of alcohol in blood, level not specified; Z99.89 Dependence on other enabling machines and devices; Z96.643 Presence of artificial hip joint, bilateral
CPT/HCPCS: 82075; 99284

== ENCOUNTER 2020-03-14 10:08 | Inpatient (IN) | payer MEDICARE, MEDICAID ==
--- NOTE | 2020-03-14 10:36 | ED ---
Psych HPI - General Source: patient, RN notes reviewed Mode of arrival: ambulatory Limitations: no limitations <Kenneth Chinchilla - Last Filed: 03/14/20 10:35> <Jose Guadalupe Woods - Last Filed: 03/15/20 13:17> - General Chief Complaint: Psychiatric Symptoms Stated Complaint: mental health Time Seen by Provider: 03/14/20 10:21 - History of Present Illness Initial Comments: This a 55-year-old male presents emergency Department chief complaint of depression, bipolar disorder, psychiatric issues. Patient states that he has been struggling for the last year with his bipolar disorder states that he has hallucinations auditory and visual. Patient states that he does have a current psychiatrist. Patient states that he also has been huffing for the last year which is making difficult. Patient denies being suicidal denies any homicidal ideation. Patient has no physical complaints though he states that he was diagnosed with COVID 4 months ago. Patient states that he had no symptoms. Patient states that he does have a diabetes hypertension kidney disease. (Kenneth Chinchilla) - Related Data Home Medications Medication Instructions Recorded Confirmed Acetaminophen-Codeine 300-30mg 1 tab PO Q4-6H PRN 03/14/20 03/14/20 [Tylenol w/codeine #3] Carvedilol [Coreg] 6.25 mg PO BID 03/14/20 03/14/20 DULoxetine HCL [Cymbalta] 60 mg PO BID 03/14/20 03/14/20 Disulfiram [Antabuse] 500 mg PO DAILY 03/14/20 03/14/20 Lisinopril [Zestril] 10 mg PO DAILY 03/14/20 03/14/20 Pravastatin Sodium [Pravachol] 40 mg PO HS 03/14/20 03/14/20 busPIRone HCL [Buspar] 30 mg PO BID 03/14/20 03/14/20 diazePAM [Valium] 5 mg PO Q8H PRN 03/14/20 03/14/20 gemfibroziL [Lopid] 600 mg PO AC-BID 03/14/20 03/14/20 glipiZIDE XL [Glucotrol Xl] 2.5 mg PO DAILY 03/14/20 03/14/20 metFORMIN HCL ER [Glucophage Xr] 500 mg PO DAILY 03/14/20 03/14/20 Previous Rx's Medication Instructions Recorded Cyclobenzaprine [Flexeril] 10 mg PO TID PRN 30 Days tab 09/06/19 Fluticasone Nasal [place] [Flonase 2 spr EA NOSTRIL DAILY PRN #1 spray 09/06/19 Nasal [place]] Gabapentin [Neurontin] 800 mg PO TID 30 Days #180 cap 09/06/19 Pantoprazole [Protonix] 40 mg PO HS 30 Days tablet. 09/06/19 QUEtiapine [SEROquel] 200 mg PO HS 30 Days tab 09/06/19 Allergies Allergy/AdvReac Type Severity Reaction Status Date / Time thimerosal Allergy Rash/Hives Verified 03/14/20 14:20 Review of Systems ROS Other: All systems not noted in ROS Statement are negative. <Kenneth Chinchilla - Last Filed: 03/14/20 10:35> ROS Other: All systems not noted in ROS Statement are negative. <Jose Guadalupe Woods - Last Filed: 03/15/20 13:17> ROS Statement: Those systems with pertinent positive or pertinent negative responses have been documented in the HPI. Past Medical History Past Medical History: Diabetes Mellitus, Sleep Apnea/CPAP/BIPAP Additional Past Medical History / Comment(s): hx bilateral hip 2017 replacements History of Any Multi-Drug Resistant Organisms: None Reported Past Surgical History: Joint Replacement Additional Past Surgical History / Comment(s): Both hips replaced, right heal shatered Past Psychological History: Anxiety, Bipolar, Depression, Schizoaffective Disorder Smoking Status: Current every day smoker Past Alcohol Use History: None Reported Past Drug Use History: None Reported <Kenneth Chinchilla - Last Filed: 03/14/20 10:35> General Exam Limitations: no limitations General appearance: alert, in no apparent distress Head exam: Present: atraumatic, normocephalic, normal inspection Eye exam: Present: normal appearance, PERRL, EOMI. Absent: scleral icterus, conjunctival injection, periorbital swelling ENT exam: Present: normal exam, normal oropharynx, mucous membranes moist Neck exam: Present: normal inspection, full ROM. Absent: tenderness, meningismus, lymphadenopathy Respiratory exam: Present: normal lung sounds bilaterally. Absent: respiratory distress, wheezes, rales, rhonchi, stridor Cardiovascular Exam: Present: normal rhythm, tachycardia, normal heart sounds. Absent: systolic murmur, diastolic murmur, rubs, gallop, clicks GI/Abdominal exam: Present: soft, normal bowel sounds. Absent: distended, tenderness, guarding, rebound, rigid Psychiatric exam: Present: anxious Skin exam: Present: warm, dry, intact, normal color. Absent: rash <Kenneth Chinchilla M - Last Filed: 03/14/20 10:35> Course Vital Signs 03/14/20 03/14/20 03/14/20 10:16 10:31 16:52 Temperature 100.5 F H 98.8 F Pulse Rate 116 H 138 H Respiratory 20 18 Rate Blood Pressure 126/87 153/69 O2 Sat by Pulse 100 98 Oximetry 03/14/20 03/15/20 03/15/20 21:03 00:00 09:45 Temperature 98.4 F Pulse Rate 105 H Respiratory 16 Rate Blood Pressure 107/71 100/65 97/64 O2 Sat by Pulse 100 Oximetry 03/15/20 03/15/20 11:17 13:09 Temperature Pulse Rate 106 H 96 Respiratory 18 16 Rate Blood Pressure 85/54 86/62 O2 Sat by Pulse 95 95 Oximetry Medical Decision Making - Lab Data Result diagrams: 03/14/20 10:36 03/14/20 10:36 <Jose Guadalupe Woods N - Last Filed: 03/15/20 13:17> - Lab Data Lab Results 03/14/20 03/14/20 03/14/20 Range/Units 10:36 10:36 10:36 WBC 12.0 H (3.8-10.6) k/uL RBC 4.03 L (4.30-5.90) m/uL Hgb 12.4 L (13.0-17.5) gm/dL Hct 38.6 L (39.0-53.0) % MCV 95.7 (80.0-100.0) fL MCH 30.7 (25.0-35.0) pg MCHC 32.1 (31.0-37.0) g/dL RDW 14.4 (11.5-15.5) % Plt Count 330 (150-450) k/uL Neutrophils % 91 % Lymphocytes % 3 % Monocytes % 3 % Eosinophils % 2 % Basophils % 0 % Neutrophils # 10.8 H (1.3-7.7) k/uL Lymphocytes # 0.4 L (1.0-4.8) k/uL Monocytes # 0.3 (0-1.0) k/uL Eosinophils # 0.3 (0-0.7) k/uL Basophils # 0.0 (0-0.2) k/uL Sodium 134 L (137-145) mmol/L Potassium 4.6 (3.5-5.1) mmol/L Chloride 97 L (98-107) mmol/L Carbon Dioxide 22 (22-30) mmol/L Anion Gap 15 mmol/L BUN 25 H (9-20) mg/dL Creatinine 2.04 H (0.66-1.25) mg/dL Est GFR (CKD-EPI)AfAm 41 (>60 ml/min/1.73 sqM) Est GFR (CKD-EPI)NonAf 36 (>60 ml/min/1.73 sqM) Glucose 222 H (74-99) mg/dL POC Glucose (mg/dL) (75-99) mg/dL POC Glu Distillery Manager ID Calcium 8.3 L (8.4-10.2) mg/dL Total Bilirubin 0.7 (0.2-1.3) mg/dL AST 47 (17-59) U/L ALT 21 (4-49) U/L Alkaline Phosphatase 151 H (38-126) U/L Total Protein 8.3 H (6.3-8.2) g/dL Albumin 5.0 (3.5-5.0) g/dL Urine Opiates Screen Not Detected (NotDetected) Ur Oxycodone Screen Not Detected (NotDetected) Urine Methadone Screen Not Detected (NotDetected) Ur Propoxyphene Screen Not Detected (NotDetected) Ur Barbiturates Screen Not Detected (NotDetected) U Tricyclic Antidepress Detected H (NotDetected) Ur Phencyclidine Scrn Not Detected (NotDetected) Ur Amphetamines Screen Not Detected (NotDetected) U Methamphetamines Scrn Not Detected (NotDetected) U Benzodiazepines Scrn Detected H (NotDetected) Urine Cocaine Screen Not Detected (NotDetected) U Marijuana (THC) Screen Not Detected (NotDetected) Coronavirus (PCR) (Not Detectd) 03/14/20 03/14/20 03/15/20 Range/Units 16:56 20:45 03:36 WBC (3.8-10.6) k/uL RBC (4.30-5.90) m/uL Hgb (13.0-17.5) gm/dL Hct (39.0-53.0) % MCV (80.0-100.0) fL MCH (25.0-35.0) pg MCHC (31.0-37.0) g/dL RDW (11.5-15.5) % Plt Count (150-450) k/uL Neutrophils % % Lymphocytes % % Monocytes % % Eosinophils % % Basophils % % Neutrophils # (1.3-7.7) k/uL Lymphocytes # (1.0-4.8) k/uL Monocytes # (0-1.0) k/uL Eosinophils # (0-0.7) k/uL Basophils # (0-0.2) k/uL Sodium (137-145) mmol/L Potassium (3.5-5.1) mmol/L Chloride (98-107) mmol/L Carbon Dioxide (22-30) mmol/L Anion Gap mmol/L BUN (9-20) mg/dL Creatinine (0.66-1.25) mg/dL Est GFR (CKD-EPI)AfAm (>60 ml/min/1.73 sqM) Est GFR (CKD-EPI)NonAf (>60 ml/min/1.73 sqM) Glucose (74-99) mg/dL POC Glucose (mg/dL) 240 H 234 H (75-99) mg/dL POC Glu Distillery Manager ID Rossi Ayon Mckenzie Calcium (8.4-10.2) mg/dL Total Bilirubin (0.2-1.3) mg/dL AST (17-59) U/L ALT (4-49) U/L Alkaline Phosphatase (38-126) U/L Total Protein (6.3-8.2) g/dL Albumin (3.5-5.0) g/dL Urine Opiates Screen (NotDetected) Ur Oxycodone Screen (NotDetected) Urine Methadone Screen (NotDetected) Ur Propoxyphene Screen (NotDetected) Ur Barbiturates Screen (NotDetected) U Tricyclic Antidepress (NotDetected) Ur Phencyclidine Scrn (NotDetected) Ur Amphetamines Screen (NotDetected) U Methamphetamines Scrn (NotDetected) U Benzodiazepines Scrn (NotDetected) Urine Cocaine Screen (NotDetected) U Marijuana (THC) Screen (NotDetected) Coronavirus (PCR) Not Detected (Not Detectd) 03/15/20 Range/Units 10:48 WBC (3.8-10.6) k/uL RBC (4.30-5.90) m/uL Hgb (13.0-17.5) gm/dL Hct (39.0-53.0) % MCV (80.0-100.0) fL MCH (25.0-35.0) pg MCHC (31.0-37.0) g/dL RDW (11.5-15.5) % Plt Count (150-450) k/uL Neutrophils % % Lymphocytes % % Monocytes % % Eosinophils % % Basophils % % Neutrophils # (1.3-7.7) k/uL Lymphocytes # (1.0-4.8) k/uL Monocytes # (0-1.0) k/uL Eosinophils # (0-0.7) k/uL Basophils # (0-0.2) k/uL Sodium (137-145) mmol/L Potassium (3.5-5.1) mmol/L Chloride (98-107) mmol/L Carbon Dioxide (22-30) mmol/L Anion Gap mmol/L BUN (9-20) mg/dL Creatinine (0.66-1.25) mg/dL Est GFR (CKD-EPI)AfAm (>60 ml/min/1.73 sqM) Est GFR (CKD-EPI)NonAf (>60 ml/min/1.73 sqM) Glucose (74-99) mg/dL POC Glucose (mg/dL) 309 H (75-99) mg/dL POC Glu Distillery Manager Mariana Sargent Calcium (8.4-10.2) mg/dL Total Bilirubin (0.2-1.3) mg/dL AST (17-59) U/L ALT (4-49) U/L Alkaline Phosphatase (38-126) U/L Total Protein (6.3-8.2) g/dL Albumin (3.5-5.0) g/dL Urine Opiates Screen (NotDetected) Ur Oxycodone Screen (NotDetected) Urine Methadone Screen (NotDetected) Ur Propoxyphene Screen (NotDetected) Ur Barbiturates Screen (NotDetected) U Tricyclic Antidepress (NotDetected) Ur Phencyclidine Scrn (NotDetected) Ur Amphetamines Screen (NotDetected) U Methamphetamines Scrn (NotDetected) U Benzodiazepines Scrn (NotDetected) Urine Cocaine Screen (NotDetected) U Marijuana (THC) Screen (NotDetected) Coronavirus (PCR) (Not Detectd) Disposition <Kenneth Chinchilla - Last Filed: 03/14/20 10:35> Is patient prescribed a controlled substance at d/c from ED?: No Decision to Admit Reason: Admit from EC <Jose Guadalupe Woods - Last Filed: 03/15/20 13:17> Clinical Impression: Inhalant abuse, Depression, Acute psychosis Disposition: ADMITTED IP TO THIS [facility] Condition: Stable Referrals: Marlen Mobley MD [Primary Care Provider] - 1-2 days
[2020-03-14 10:54] LABS: Cocaine Screen,Urine Not Detected (NotDetected); Opiate Screen,Urine Not Detected (NotDetected); Phencyclidine Screen,Urine Not Detected (NotDetected); Urn Cannabinoid Scrn Not Detected (NotDetected)
[2020-03-14 10:55] LABS: Amphetamine Screen,Urine Not Detected (NotDetected); Barbiturate Screen,Urine Not Detected (NotDetected); Benzodiazepines Screen,Urine Detected (NotDetected); Methadone Screen, Urine Not Detected (NotDetected); Oxycodone Screen, Urine Not Detected (NotDetected); Tricyclic Antidepressant,Urine Detected (NotDetected)
[2020-03-14 11:04] LABS: Basophils % (A) 0 %; Eosinophils # (A) 0.3 k/uL (0-0.7); Eosinophils % (A) 2 %; HCT 38.6 % (39.0-53.0); HGB 12.4 gm/dL (13.0-17.5); Lymphocytes # (A) 0.4 k/uL (1.0-4.8); Lymphocytes % (A) 3 %; MCH 30.7 pg (25.0-35.0); MCHC 32.1 g/dL (31.0-37.0); MCV 95.7 fL (80.0-100.0); Mean Platelet Volume 6.9; Monocytes # (A) 0.3 k/uL (0-1.0); Monocytes % (A) 3 %; Neutrophils # (A) 10.8 k/uL (1.3-7.7); Neutrophils % (A) 91 %; Platelet Count 330 k/uL (150-450); RBC 4.03 m/uL (4.30-5.90); RDW 14.4 % (11.5-15.5)
[2020-03-14 11:27] LABS: Calcium 8.3 mg/dL (8.4-10.2); Potassium 4.6 mmol/L (3.5-5.1); Total Bilirubin 0.7 mg/dL (0.2-1.3); Total Protein 8.3 g/dL (6.3-8.2)
--- NOTE | 2020-03-14 11:40 | XR ---
EXAMINATION TYPE: XR chest 2V DATE OF EXAM: 03/14/2020 COMPARISON: None HISTORY: 55-year-old male with cough and shortness of breath TECHNIQUE: PA and lateral views FINDINGS: The cardiomediastinal silhouette, aorta, and pulmonary vasculature are within normal limits. Some str genna atelectasis at the left base. No consolidation or effusion. IMPRESSION: Strandy left basilar atelectasis. Otherwise, no acute process seen.
[2020-03-14] MEDS ORDERED: FLUTICASONE 50MCG/SPRAY NASAL 16GM EA NOSTRIL PRN (16:12)
[2020-03-14] MEDS ORDERED: Acetaminophen-Codeine 300-30mg TAB PO PRN (16:12)
[2020-03-14] MEDS ORDERED: CYCLOBENZAPRINE 10 MG TAB PO PRN (16:12)
[2020-03-14] MEDS ORDERED: LORazepam 1 MG TAB PO STA (16:16)
[2020-03-14] MEDS ORDERED: busPIRone HCl 10 MG TAB PO SCH (16:45)
[2020-03-14] MEDS: busPIRone HCl 10 MG TAB PO SCH ×2 (16:51→20:59)
[2020-03-14] MEDS: lisinopriL 10 MG TAB PO SCH (16:51)
[2020-03-14] MEDS: DULoxetine HCL 60 MG CAPSULE.DR PO SCH ×2 (16:51→21:01)
[2020-03-14] MEDS: carvediloL 6.25 MG TAB PO SCH (16:51)
[2020-03-14 16:59] LABS: Glucose,Whole Blood 240 mg/dL (75-99)
[2020-03-14] MEDS: INSULIN ASPART (NovoLOG) 100 UNIT/ML VIAL SQ SCH ×2 (17:11→20:56)
[2020-03-14 20:46] LABS: Glucose,Whole Blood 234 mg/dL (75-99)
[2020-03-14] MEDS: PANTOPRAZOLE 40 MG TABLET PO SCH (20:58)
[2020-03-14] MEDS: QUEtiapine 200 MG TAB PO SCH (20:59)
[2020-03-14] MEDS: PRAVASTATIN SODIUM 40 MG TAB PO SCH (21:06)
[2020-03-14] MEDS: cloNIDine HCL 0.1 MG TAB PO SCH (21:53)
[2020-03-14] MEDS: GABAPENTIN 400 MG CAP PO SCH (22:02)
[2020-03-15] MEDS: GABAPENTIN 400 MG CAP PO SCH ×3 (09:42→22:00)
[2020-03-15] MEDS: lisinopriL 10 MG TAB PO SCH (09:43)
[2020-03-15] MEDS: carvediloL 6.25 MG TAB PO SCH ×3 (09:44→19:44)
[2020-03-15] MEDS: DISULFIRAM 500 MG PO SCH (09:49)
[2020-03-15] MEDS ORDERED: LORazepam 1 MG TAB PO STA (10:49)
[2020-03-15 10:50] LABS: Glucose,Whole Blood 309 mg/dL (75-99)
[2020-03-15] MEDS: INSULIN ASPART (NovoLOG) 100 UNIT/ML VIAL SQ SCH ×4 (11:13→22:00)
[2020-03-15] MEDS: FENOFIBRATE 160 MG TAB PO SCH (11:14)
[2020-03-15] MEDS ORDERED: SODIUM CHLORIDE 0.9% 1,000 ML IV ONE (13:14)
[2020-03-15] MEDS ORDERED: MAGNESIUM HYDROXIDE 2,400 MG/10 ML CUP PO PRN (18:06)
[2020-03-15] MEDS ORDERED: MAG HYDROX/AL HYDROX/SIMETH 30 ML CUP PO PRN (18:06)
[2020-03-15] MEDS ORDERED: ZIPRASIDONE 20 MG VIAL IM PRN (18:06)
[2020-03-15] MEDS ORDERED: LORazepam 2 MG/ML INJ IM PRN (18:08)
[2020-03-15 19:34] LABS: Glucose,Whole Blood 335 mg/dL (75-99)
[2020-03-15] MEDS: busPIRone HCl 10 MG TAB PO SCH (19:45)
[2020-03-15] MEDS: PANTOPRAZOLE 40 MG TABLET PO SCH (19:45)
[2020-03-15] MEDS: DULoxetine HCL 60 MG CAPSULE.DR PO SCH (19:45)
[2020-03-15] MEDS: QUEtiapine 200 MG TAB PO SCH (19:45)
[2020-03-15 21:57] LABS: Glucose,Whole Blood 226 mg/dL (75-99)
[2020-03-15] MEDS: LORazepam 1 MG TAB PO PRN (22:00)
[2020-03-15] MEDS: cloNIDine HCL 0.1 MG TAB PO SCH (22:02)
[2020-03-15] MEDS: NICOTINE 7MG/24HR PATCH TRANSDERM SCH (22:03)
[2020-03-15] MEDS: PRAVASTATIN SODIUM 40 MG TAB PO SCH (22:04)
--- NOTE | 2020-03-15 23:23 | P.MDCNMH ---
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 he admits that he parked there on sunday night and was found on Sunday morning. he kept going into the store to buy more and getting high. he has not taken his psych meds for few days now. he has bipolar disorder with alternating manic and depressed mood. he denies any homicidal or suicidal ideation he currently denies any medical complaints. he denies any chest pain or trouble breathing,, denies any headaches, nausea or vomiting, denies nay coughing fever, or chills. he denies any drug of abuse, admits to occasional alcohol drinking no more than 1-3 drinks at a time. and claims that he has quit smoking for about a week now. patient claims that he had COVID 19 about 5 months ago Review of Systems Pertinent positives as noted in HPI. All other systems were reviewed and are negative Past Medical History Past Medical History: Diabetes Mellitus, Hypertension, Sleep Apnea/CPAP/BIPAP Additional Past Medical History / Comment(s): hx bilateral hip 2017 replacements History of Any Multi-Drug Resistant Organisms: None Reported Past Surgical History: Joint Replacement Additional Past Surgical History / Comment(s): Both hips replaced, right heal shatered Past Psychological History: Anxiety, Bipolar, Depression, Schizoaffective Disorder Smoking Status: Former smoker Past Alcohol Use History: None Reported Past Drug Use History: None Reported - Past Family History family Additional Family Medical History / Comment(s): anxiety Medications and Allergies Home Medications Medication Instructions Recorded Confirmed Type Cyclobenzaprine [Flexeril] 10 mg PO TID PRN 30 Days tab 09/06/19 03/14/20 Rx Fluticasone Nasal [place] [Flonase 2 spr EA NOSTRIL DAILY PRN #1 spray 09/06/19 03/14/20 Rx Nasal [place]] Gabapentin [Neurontin] 800 mg PO TID 30 Days #180 cap 09/06/19 03/14/20 Rx Pantoprazole [Protonix] 40 mg PO HS 30 Days tablet. 09/06/19 03/14/20 Rx QUEtiapine [SEROquel] 200 mg PO HS 30 Days tab 09/06/19 03/14/20 Rx Acetaminophen-Codeine 300-30mg 1 tab PO Q4-6H PRN 03/14/20 03/14/20 History [Tylenol w/codeine #3] Carvedilol [Coreg] 6.25 mg PO BID 03/14/20 03/14/20 History DULoxetine HCL [Cymbalta] 60 mg PO BID 03/14/20 03/14/20 History Disulfiram [Antabuse] 500 mg PO DAILY 03/14/20 03/14/20 History Lisinopril [Zestril] 10 mg PO DAILY 03/14/20 03/14/20 History Pravastatin Sodium [Pravachol] 40 mg PO HS 03/14/20 03/14/20 History busPIRone HCL [Buspar] 30 mg PO BID 03/14/20 03/14/20 History diazePAM [Valium] 5 mg PO Q8H PRN 03/14/20 03/14/20 History gemfibroziL [Lopid] 600 mg PO AC-BID 03/14/20 03/14/20 History glipiZIDE XL [Glucotrol Xl] 2.5 mg PO DAILY 03/14/20 03/14/20 History metFORMIN HCL ER [Glucophage Xr] 500 mg PO DAILY 03/14/20 03/14/20 History Allergies Allergy/AdvReac Type Severity Reaction Status Date / Time thimerosal Allergy Rash/Hives Verified 03/14/20 14:20 Physical Exam Vitals: Vital Signs Temp Pulse Pulse Resp BP BP Pulse Ox 03/15/20 19:20 97.8 F 110 H 18 126/75 96 03/15/20 15:57 90 18 108/63 98 03/15/20 14:47 95 18 91/56 98 03/15/20 13:28 97 18 98/74 98 03/15/20 13:09 96 16 86/62 95 03/15/20 11:17 106 H 18 85/54 95 03/15/20 09:45 97/64 03/15/20 00:00 98.4 F 105 H 16 100/65 100 Intake and Output 03/15/20 03/15/20 03/16/20 14:59 22:59 06:59 Other: Weight 84.2 kg Constitutional: No acute distress, conversant, pleasant Eyes: Anicteric sclerae, moist conjunctiva, no lid-lag Pupils equal round reactive to light ENMT: NC/AT Oropharynx clear, no erythema, exudates Neck: Supple, FROM, no masses, or JVD No carotid bruits No thyromegaly Lungs: Clear to auscultation Clear to percussion Normal respiratory effort, no accessory muscle use Cardiovascular: Heart regular in rate and rhythm, No murmurs, gallops, or rubs No peripheral edema Abdominal: Soft Nontender, no guarding, rebound or rigidity Abdomen moving with respiration Normoactive bowel sounds No hepatomegaly, No splenomegaly No palpable mass No abdominal wall hernia noted Skin: big toe nails with thickening yellow discoloration, otherwise Normal temperature, tone, texture, turgor No induration No subcutaneous nodules No rash, lesions No ulcers Extremities: No digital cyanosis No clubbing Pedal pulses intact and symmetrical Radial pulses intact and symmetrical No calf tenderness Psychiatric: Alert and oriented to person, place and time Appropriate affect fair judgement Neuro Muscles Strength 5/5 in all 4 extremities Sensation to light touch grossly present throughout Cranial nerves II-XII grossly intact No focal sensory deficits Lymphatics: no palpable cervical or supraclavicular , or inguinal lymph nodes Cranial Nerve Examination - Cranial Nerves Cranial Nerve II- Optic: Intact Cranial Nerve III- Oculomotor: Intact Cranial Nerve IV- Trochlear: Intact Cranial Nerve V- Trigeminal: Intact Cranial Nerve - Abducens: Intact Cranial Nerve VII- Facial: Intact Cranial Nerve VIII- Auditory: Intact Cranial Nerve IX- Glossopharyngeal: Intact Cranial Nerve X- Vagus: Intact Cranial Nerve XI- Accessory: Intact Cranial Nerve XII- Hypoglossal: Intact Results CBC & Chem 7: 03/14/20 10:36 03/14/20 10:36 Labs: Abnormal Lab Results - Last 24 Hours (Table) 03/15/20 03/15/20 03/15/20 Range/Units 10:48 19:32 21:56 POC Glucose (mg/dL) 309 H 335 H 226 H (75-99) mg/dL Assessment and Plan Assessment: bipolar disorder management per psych hypertension controlled resume home meds coreg clonidine lisinopril DM check A1C hold oral hypoglycemic agents continue with insulin sliding scale Toenail fungal infection Terbinafine cream twice a day Patient counseled to follow up with podiatry as an outpatient low risk for dvt , patient is ambulatory Follow-up labs Thank you for allowing us to participate in the care of this patient. We will follow peripherally. Do not hesitate to contact us with questions. Someone can be reached from the [facility] hospitalist group at all hours of the day at [phone].
[2020-03-16] MEDS: TERBINAFINE 1% CREAM 15 GM TUBE TOPICAL SCH ×3 (00:04→21:04)
[2020-03-16 02:09] LABS: Cholesterol 266 mg/dL (<200); HDL Cholesterol 49 mg/dL (40-60)
[2020-03-16 02:19] LABS: Triglycerides 555 mg/dL (<150)
[2020-03-16 08:05] LABS: Glucose,Whole Blood 288 mg/dL (75-99)
[2020-03-16] MEDS: INSULIN ASPART (NovoLOG) 100 UNIT/ML VIAL SQ SCH ×4 (08:06→20:24)
[2020-03-16] MEDS ORDERED: metFORMIN 500 MG TAB PO SCH (09:00)
[2020-03-16] MEDS: DISULFIRAM 500 MG PO SCH (09:01)
[2020-03-16] MEDS: lisinopriL 10 MG TAB PO SCH (09:01)
[2020-03-16] MEDS: FENOFIBRATE 160 MG TAB PO SCH (09:01)
[2020-03-16] MEDS: busPIRone HCl 10 MG TAB PO SCH ×2 (09:01→20:50)
[2020-03-16] MEDS: DULoxetine HCL 60 MG CAPSULE.DR PO SCH ×2 (09:01→20:49)
[2020-03-16] MEDS: GABAPENTIN 400 MG CAP PO SCH ×3 (09:01→20:49)
[2020-03-16] MEDS: NICOTINE 7MG/24HR PATCH TRANSDERM SCH (09:02)
[2020-03-16 12:59] LABS: Glucose,Whole Blood 169 mg/dL (75-99)
[2020-03-16] MEDS: LORazepam 1 MG TAB PO PRN (13:31)
[2020-03-16 13:32] LABS: Hemoglobin A1C 8.3 % (4.0-6.0)
--- NOTE | 2020-03-16 14:23 | P.HP ---
Psychiatric H&P - . H&P Date: 03/16/20 History & Physical: Allergies Allergy/AdvReac Type Severity Reaction Status Date / Time thimerosal Allergy Rash/Hives Verified 03/14/20 14:20 Vital Signs Temp 97.8 F 03/15/20 19:20 Pulse 110 H 03/15/20 19:20 Resp 18 03/15/20 19:20 BP 126/75 03/15/20 19:20 Pulse Ox 96 03/15/20 19:20 Intake & Output 03/15/20 03/16/20 03/16/20 18:59 06:59 18:59 Weight 84.2 kg Laboratory Last Values WBC 12.0 k/uL (3.8-10.6) H 03/14/20 10:36 RBC 4.03 m/uL (4.30-5.90) L 03/14/20 10:36 Hgb 12.4 gm/dL (13.0-17.5) L 03/14/20 10:36 Hct 38.6 % (39.0-53.0) L 03/14/20 10:36 MCV 95.7 fL (80.0-100.0) 03/14/20 10:36 MCH 30.7 pg (25.0-35.0) 03/14/20 10:36 MCHC 32.1 g/dL (31.0-37.0) 03/14/20 10:36 RDW 14.4 % (11.5-15.5) 03/14/20 10:36 Plt Count 330 k/uL (150-450) 03/14/20 10:36 Neutrophils % 91 % 03/14/20 10:36 Lymphocytes % 3 % 03/14/20 10:36 Monocytes % 3 % 03/14/20 10:36 Eosinophils % 2 % 03/14/20 10:36 Basophils % 0 % 03/14/20 10:36 Neutrophils # 10.8 k/uL (1.3-7.7) H 03/14/20 10:36 Lymphocytes # 0.4 k/uL (1.0-4.8) L 03/14/20 10:36 Monocytes # 0.3 k/uL (0-1.0) 03/14/20 10:36 Eosinophils # 0.3 k/uL (0-0.7) 03/14/20 10:36 Basophils # 0.0 k/uL (0-0.2) 03/14/20 10:36 Sodium 134 mmol/L (137-145) L 03/14/20 10:36 Potassium 4.6 mmol/L (3.5-5.1) 03/14/20 10:36 Chloride 97 mmol/L (98-107) L 03/14/20 10:36 Carbon Dioxide 22 mmol/L (22-30) 03/14/20 10:36 Anion Gap 15 mmol/L 03/14/20 10:36 BUN 25 mg/dL (9-20) H 03/14/20 10:36 Creatinine 2.04 mg/dL (0.66-1.25) H 03/14/20 10:36 Est GFR (CKD-EPI)AfAm 41 (>60 ml/min/1.73 sqM) 03/14/20 10:36 Est GFR (CKD-EPI)NonAf 36 (>60 ml/min/1.73 sqM) 03/14/20 10:36 Glucose 222 mg/dL (74-99) H 03/14/20 10:36 POC Glucose (mg/dL) 169 mg/dL (75-99) H 03/16/20 12:58 POC Glu [employer] Instructor ID Nasir Thapa 03/16/20 12:[address] Glu mg/dL 192 03/14/20 10:36 Hemoglobin A1c 8.3 % (4.0-6.0) H 03/14/20 10:36 Calcium 8.3 mg/dL (8.4-10.2) L 03/14/20 10:36 Total Bilirubin 0.7 mg/dL (0.2-1.3) 03/14/20 10:36 AST 47 U/L (17-59) 03/14/20 10:36 ALT 21 U/L (4-49) 03/14/20 10:36 Alkaline Phosphatase 151 U/L (38-126) H 03/14/20 10:36 Total Protein 8.3 g/dL (6.3-8.2) H 03/14/20 10:36 Albumin 5.0 g/dL (3.5-5.0) 03/14/20 10:36 Triglycerides 555 mg/dL (<150) H 03/14/20 10:36 Cholesterol 266 mg/dL (<200) H 03/14/20 10:36 LDL Cholesterol, Calc mg/dL (0-99) 03/14/20 10:36 HDL Cholesterol 49 mg/dL (40-60) 03/14/20 10:36 Urine Opiates Screen Not Detected (NotDetected) 03/14/20 10:36 Ur Oxycodone Screen Not Detected (NotDetected) 03/14/20 10:36 Urine Methadone Screen Not Detected (NotDetected) 03/14/20 10:36 Ur Propoxyphene Screen Not Detected (NotDetected) 03/14/20 10:36 Ur Barbiturates Screen Not Detected (NotDetected) 03/14/20 10:36 U Tricyclic Antidepress Detected (NotDetected) H 03/14/20 10:36 Ur Phencyclidine Scrn Not Detected (NotDetected) 03/14/20 10:36 Ur Amphetamines Screen Not Detected (NotDetected) 03/14/20 10:36 U Methamphetamines Scrn Not Detected (NotDetected) 03/14/20 10:36 U Benzodiazepines Scrn Detected (NotDetected) H 03/14/20 10:36 Urine Cocaine Screen Not Detected (NotDetected) 03/14/20 10:36 U Marijuana (THC) Screen Not Detected (NotDetected) 03/14/20 10:36 Coronavirus (PCR) Not Detected (Not Detectd) 03/15/20 03:36 03/16/20 14:06 IDENTIFYING DATA: Patient is a 55-year-old male currently lives with her sister in a house is has 1 son and collects disability. HPI: Patient presented to the hospital through the ER for psychiatric evaluation and depression. Patient has a significant history for polysubstance abuse including huffing aerosolized cans, history of depression and psychosis. Patient was last hospitalized in the psychiatric unit in August 2019 and was released to [facility]. According to ER report patient has apparently been hallucinating auditory and visually. Patient claims that he has been huffing for the past year. He states that he was diagnosed with covid-19 approximately 4 months ago. He states that he was found in a parking lot over the weekend that he was using ear trolley cleaner cans repeatedly in his car. Patient's urine drug screen was positive for benzodiazepines and TCAs. Patient's creatinine level was 2.04 and BUN was 25. Patient's sodium was 134 and WBCs were 12.0 on admission. Patient was agreeable to speak to science writer and appeared to be anxious. He claims that he has been having a "rough year" and states that he's been thinking a lot about covid-19. He claims that after leaving the hospital in August he went to [place] for rehab and claims that he ended up testing positive for coronavirus. He claims that he was then transferred to [place] to go to [facility] and was therefore a couple of months. He claims that once he left he was feeling "high" and states that he was having manic like symptoms where he was spending a lot of money and had an elated affect. He claims that he also s tarted drinking alcohol approximately fifth of vodka a day and also started using aerosolized cans once again. He claims that he was using approximately 6- 9 cans a day. He states that his highs from using the cans are separate from when he feels "manic". He states that his sleep is fair when he is on Seroquel and claims that he was hearing voices which were negative when he was also using. He claims that he sat in the parking lot in his car and continuously was using aerosolized cans. He states that the patrol police sergeant stopped him and brought him into the hospital for significant concerns. Patient claims that his anxiety is fairly high at this point and claims that his mood is "unstable". Patient denies any current suicidal or homicidal ideations intent or plan. At this time patient denies any current auditory or visual hallucinations. Patient denies any flight of ideas and increased in goal directed behavior. Patient admits to using cigarettes daily however denies any other recreational drug use. Patient also uses aerosolized cans and also alcohol as noted above. PAST PSYCHIATRIC HISTORY: Patient states that his history of depression and mood disorder and anxiety. He says his last admission to the mental health unit was August 2019. He claims that he has a psychiatrist at [facility] and was supposed to go in for weekly therapy. Patient is currently on Valium, Cymbalta, Seroquel and disulfiram. He denies any history of suicide attempts. PMH: Diabetes mellitus, back\\hip pain, obstructive sleep apnea, hypertension ALLERGIES: as per EMR CHEMICAL DEPENDENCY HISTORY: as per HPI FAMILY PSYCHIATRIC/SUBSTANCE USE HISTORY: He states that his father had a "mental breakdown" however does not know what his diagnosis was. He states that his sisters suffer from anxiety. 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 He states that he is currently on disability is has 1 son and currently lives with his sister in a house.. MENTAL STATUS EXAM: General Appearance: Patient appears to be stated age is alert, directable, and attempts to cooperate. Patient appears to have fair hygiene and grooming. Behavior: Patient is seated without any agitated behavior. Attempts to cooperate. Speech: Patient's speech is fluent and nonpressured. Soft Spoken. Mood/Affect: Patient reports their mood is "unstable" and anxious, affect is congruent Suicidality/Homicidality: Patient denies having any homicidal ideation intent or plan. Denies any suicidal ideations intent or plan Perceptions: Patient denies any visual hallucinations and denies any auditory hallucinations Though content/process: There is no evidence of any delusional thought content and thought process is linear and goal-directed. Preoccupied with his anxiety and depression. Memory and concentration: AOX3, grossly intact for the purposes of this session. Can spell "WORLD" backwards Judgment and insight: poor STRENGTHS/WEAKNESSES: strength is that patient is resilient. Weakness is that patient has poor judgment and is impulsive INTELLECT: average IMPRESSIONS: Mood disorder unspecified, rule out secondary to polysubstance abuse versus bipolar disorder. Anxiety disorder unspecified Inhalant abuse Nicotine dependence PLAN: -Patient is admitted under voluntary status to MHU for stabilization of psychiatric symptoms and safety. Patient signed adult voluntary form and medication consent and is placed in patient's chart. -Medications : Continue with home dose of Cymbalta 60 mg twice a day for pain/mood, continue with home dose of BuSpar 30 mg twice a day for anxiety. Patient is agreeable to start Zyprexa instead of Seroquel for mood stabiliz ation/insomnia. We'll start 2.5 mg daily +5 mg daily at bedtime. Continue with Antabuse daily for alcohol use disorder. -Geodon and Ativan PRN for agitation/aggression -CIWA protocol with Ativan when necessary. -Patient was counselled on substance abuse and desired to cut back on use. -Patient was informed of the risks, benefits and side effects of the medication and patient verbally consented to taking the medications. Patient signed med consent form and was placed in chart. -Internal Medicine consult to perform medical evaluation and physical. -NRT - nicotine patch -SW on board for discharge planning. Encourage patient to participate in groups to work on coping skills. We'll continue to work with patient on substance abuse programs and rehab, to arrange this prior to discharge. 03/16/20 14:10 03/16/20 14:30
[2020-03-16] MEDS: OLANZapine 2.5 MG TAB PO SCH (14:58)
[2020-03-16] MEDS: carvediloL 6.25 MG TAB PO SCH (16:46)
[2020-03-16 17:28] LABS: Glucose,Whole Blood 257 mg/dL (75-99)
[2020-03-16 19:47] LABS: Glucose,Whole Blood 256 mg/dL (75-99)
[2020-03-16] MEDS: OLANZapine 5 MG TAB PO SCH (20:49)
[2020-03-16] MEDS: PANTOPRAZOLE 40 MG TABLET PO SCH (20:49)
[2020-03-16] MEDS: PRAVASTATIN SODIUM 40 MG TAB PO SCH (20:49)
[2020-03-16] MEDS: cloNIDine HCL 0.1 MG TAB PO SCH (21:04)
[2020-03-17] MEDS: DISULFIRAM 500 MG PO SCH (08:11)
[2020-03-17] MEDS: carvediloL 6.25 MG TAB PO SCH ×2 (08:11→17:56)
[2020-03-17] MEDS: busPIRone HCl 10 MG TAB PO SCH ×2 (08:11→19:54)
[2020-03-17] MEDS: INSULIN ASPART (NovoLOG) 100 UNIT/ML VIAL SQ SCH ×4 (08:11→20:02)
[2020-03-17] MEDS: NICOTINE 7MG/24HR PATCH TRANSDERM SCH (08:11)
[2020-03-17] MEDS: lisinopriL 10 MG TAB PO SCH (08:12)
[2020-03-17] MEDS: DULoxetine HCL 60 MG CAPSULE.DR PO SCH ×2 (08:12→19:54)
[2020-03-17] MEDS: FENOFIBRATE 160 MG TAB PO SCH (08:12)
[2020-03-17] MEDS: TERBINAFINE 1% CREAM 15 GM TUBE TOPICAL SCH ×2 (08:12→19:54)
[2020-03-17] MEDS: OLANZapine 2.5 MG TAB PO SCH (08:12)
[2020-03-17 08:13] LABS: Glucose,Whole Blood 316 mg/dL (75-99)
[2020-03-17] MEDS: GABAPENTIN 400 MG CAP PO SCH ×3 (08:17→21:02)
[2020-03-17] MEDS: LORazepam 1 MG TAB PO PRN ×3 (08:17→22:26)
[2020-03-17 11:37] LABS: Calcium 9.4 mg/dL (8.4-10.2); Potassium 5.3 mmol/L (3.5-5.1)
[2020-03-17 13:00] LABS: Glucose,Whole Blood 247 mg/dL (75-99)
--- NOTE | 2020-03-17 13:42 | P.PN ---
Progress Note - Text Progress Note Date: 03/17/20 Interval History: Patient was seen wandering the hallways and was directable and agreeable to sp lena with typewriters functional tester in the office. Patient appears to be calmer today and claims that his anxiety move gradually improving. He states that he does not have suicidal thoughts today. He claims that he was able to speak with the intake person for rehab and claims that he'll be waiting for the response from them as to when he can get into rehab again. Patient was concerned about his kidney function and his heart rate today and lab work was reviewed with him. Patient will be getting a basic metabolic panel tomorrow. Patient claims that he feels better overall however claims that he does feel a little "tired today" however once remained on the same dose medications. He states that he is able to sleep better last night. They've 7 fair appetite. At this time patient denies any suicidal or homical ideations, intent or plan. Patient denies any auditory, visual hallucinations and denies any paranoia or delusions. Mental Status Exam: General Appearance: Patient appears to be stated age is alert, directable, and attempts to cooperate. Patient appears to have improving hygiene and grooming. Behavior: Patient is seated without any agitated behavior. Attempts to cooperate. Speech: Patient's speech is fluent and nonpressured Mood/Affect: Patient reports their mood is "a bit better today", affect is congruent Suicidality/Homicidality: Patient denies having any homicidal ideation intent or plan. Denies any suicidal ideations intent or plan Perceptions: Patient denies any visual hallucinations and denies any auditory hallucinations Though content/process: There is no evidence of any delusional thought content and thought process is linear and goal-directed. Memory and concentration: AOX3, grossly intact for the purposes of this session Judgment and insight: poor, improving mildly Assessment Mood disorder unspecified, rule out secondary to polysubstance abuse versus bipolar disorder. Anxiety disorder unspecified Inhalant abuse Nicotine dependence Plan: -Patient continues to meet criteria for inpatient psychiatric admission for symptom stabilization and safety. Patient has signed adult voluntary form and medication consent and was placed in patient's chart. -Medications: Continue with Zyprexa 2.5 mg daily +5 mg daily at bedtime for insomnia/mood stabilization. Continue with Antabuse daily for alcohol use disorder. Continue with Cymbalta 60 mg twice a day for pain/mood/anxiety. Continue with BuSpar 30 mg twice a day for anxiety. -CIWA protocol with when necessary Ativan. -When necessary Ativan and Geodon for agitation/aggression. -NRT - nicotine patch -SW on board for discharge planning. Encouraged the patient to participate in milieu. Patient has called the access line and is currently waiting for the response and the intake date for rehab.
[2020-03-17] MEDS ORDERED: SODIUM POLYSTYRENE SULFONATE 15 GM/60 ML BOTTLE PO STA (13:52)
[2020-03-17] MEDS: glipiZIDE 10 MG TAB PO SCH (17:56)
[2020-03-17 18:07] LABS: Glucose,Whole Blood 232 mg/dL (75-99)
[2020-03-17] MEDS: PANTOPRAZOLE 40 MG TABLET PO SCH (19:55)
[2020-03-17] MEDS: OLANZapine 5 MG TAB PO SCH (19:55)
[2020-03-17] MEDS: cloNIDine HCL 0.1 MG TAB PO SCH (19:55)
[2020-03-17] MEDS: PRAVASTATIN SODIUM 40 MG TAB PO SCH (19:56)
[2020-03-17 20:01] LABS: Glucose,Whole Blood 200 mg/dL (75-99)
[2020-03-18] MEDS: LORazepam 1 MG TAB PO PRN ×3 (06:38→21:24)
[2020-03-18] MEDS: busPIRone HCl 10 MG TAB PO SCH ×2 (08:06→21:21)
[2020-03-18] MEDS: NICOTINE 7MG/24HR PATCH TRANSDERM SCH (08:06)
[2020-03-18] MEDS: TERBINAFINE 1% CREAM 15 GM TUBE TOPICAL SCH ×2 (08:06→21:21)
[2020-03-18 08:07] LABS: Glucose,Whole Blood 312 mg/dL (75-99)
[2020-03-18] MEDS: OLANZapine 2.5 MG TAB PO SCH (08:07)
[2020-03-18] MEDS: carvediloL 6.25 MG TAB PO SCH ×2 (08:07→17:50)
[2020-03-18] MEDS: DISULFIRAM 500 MG PO SCH (08:07)
[2020-03-18] MEDS: DULoxetine HCL 60 MG CAPSULE.DR PO SCH ×2 (08:07→21:22)
[2020-03-18] MEDS: glipiZIDE 10 MG TAB PO SCH ×2 (08:08→17:50)
[2020-03-18] MEDS: FENOFIBRATE 160 MG TAB PO SCH (08:08)
[2020-03-18] MEDS: INSULIN ASPART (NovoLOG) 100 UNIT/ML VIAL SQ SCH ×4 (08:08→20:12)
[2020-03-18] MEDS: GABAPENTIN 400 MG CAP PO SCH ×3 (08:09→21:22)
--- NOTE | 2020-03-18 09:33 | P.PN ---
Progress Note - Text Progress Note Date: 03/18/20 Interval History: Patient was seen wandering the hallways and was directable and agreeable to yahaira paredes with sign writer letterer or painter in the office. Patient was concerned about possible hemorrhoids and also constipation and was requesting a stool softener today. Patient claims that he is trying to go to groups and participate as best as he can.. He states that he does not have suicidal thoughts today however does claim that he has still racing thoughts mainly about what he is going to do when he leaves the [facility]. He claims that he is willing to go to rehab at this point and wants to eventually move out of his sister's home. Patient was concerned about his kidney function and is anxiously awaiting his blood work today. He claims that he did wake up with a panic attack and required an Ativan at that time and now feels much better with regards to his anxiety. He states that he is able to sleep better last night. He admits having a fair appetite. At this time patient denies any suicidal or homical ideations, intent or plan. Patient denies any auditory, visual hallucinations and denies any paranoia or delusions. Mental Status Exam: General Appearance: Patient appears to be stated age is alert, directable, and attempts to cooperate. Patient appears to have improving hygiene and grooming. Behavior: Patient is seated without any agitated behavior. Attempts to cooperate. Speech: Patient's speech is fluent and nonpressured Mood/Affect: Patient reports their mood is "ok", affect is congruent and constricted Suicidality/Homicidality: Patient denies having any homicidal ideation intent or plan. Denies any suicidal ideations intent or plan Perceptions: Patient denies any visual hallucinations and denies any auditory hallucinations Though content/process: There is no evidence of any delusional thought content and thought process is linear and goal-directed. Perseverating on somatic symptoms and his anxiety. Memory and concentration: AOX3, grossly intact for the purposes of this session Judgment and insight: poor, improving mildly Assessment Mood disorder unspecified, rule out secondary to polysubstance abuse versus bipolar disorder. Anxiety disorder unspecified Inhalant abuse Nicotine dependence Plan: -Patient continues to meet criteria for inpatient psychiatric admission for symptom stabilization and safety. Patient has signed adult voluntary form and medication consent and was placed in patient's chart. -Medications: Increased Zyprexa 2.5 mg daily +7.5 mg daily at bedtime for insomnia/mood stabilization. Continue with Antabuse daily for alcohol use disorder. Continue with Cymbalta 60 mg twice a day for pain/mood/anxiety. Continue with BuSpar 30 mg twice a day for anxiety. -Added stool softener. -CIWA protocol with when necessary Ativan. -Awaiting basic metabolic panel today. -When necessary Ativan and Geodon for agitation/aggression. -NRT - nicotine patch -SW on board for discharge planning. Encouraged the patient to participate in milieu. Patient has called the access line and is currently waiting for the response and the intake date for rehab.
[2020-03-18 12:20] LABS: Calcium 9.6 mg/dL (8.4-10.2); Potassium 5.5 mmol/L (3.5-5.1)
[2020-03-18] MEDS: SENNOSIDES-DOCUSATE SODIUM 1 EACH TAB PO SCH ×2 (12:31→21:21)
[2020-03-18 12:54] LABS: Glucose,Whole Blood 176 mg/dL (75-99)
[2020-03-18] MEDS ORDERED: SODIUM POLYSTYRENE SULFONATE 15 GM/60 ML BOTTLE PO STA (13:53)
[2020-03-18 17:48] LABS: Glucose,Whole Blood 189 mg/dL (75-99)
[2020-03-18 20:06] LABS: Glucose,Whole Blood 222 mg/dL (75-99)
[2020-03-18] MEDS ORDERED: OLANZapine 2.5 MG TAB PO SCH (21:00)
[2020-03-18] MEDS: cloNIDine HCL 0.1 MG TAB PO SCH (21:22)
[2020-03-18] MEDS: PANTOPRAZOLE 40 MG TABLET PO SCH (21:24)
[2020-03-18] MEDS: PRAVASTATIN SODIUM 40 MG TAB PO SCH (21:25)
[2020-03-19] MEDS: LORazepam 1 MG TAB PO PRN ×3 (06:19→23:14)
[2020-03-19 07:42] LABS: Glucose,Whole Blood 242 mg/dL (75-99)
[2020-03-19] MEDS: carvediloL 6.25 MG TAB PO SCH ×2 (08:06→16:30)
[2020-03-19] MEDS: NICOTINE 7MG/24HR PATCH TRANSDERM SCH (08:06)
[2020-03-19] MEDS: busPIRone HCl 10 MG TAB PO SCH ×2 (08:07→20:29)
[2020-03-19] MEDS: DISULFIRAM 500 MG PO SCH (08:07)
[2020-03-19] MEDS: DULoxetine HCL 60 MG CAPSULE.DR PO SCH ×2 (08:07→20:29)
[2020-03-19] MEDS: GABAPENTIN 400 MG CAP PO SCH ×3 (08:08→20:29)
[2020-03-19] MEDS: OLANZapine 2.5 MG TAB PO SCH (08:08)
[2020-03-19] MEDS: SENNOSIDES-DOCUSATE SODIUM 1 EACH TAB PO SCH ×2 (08:08→21:08)
[2020-03-19] MEDS: TERBINAFINE 1% CREAM 15 GM TUBE TOPICAL SCH ×2 (08:09→20:25)
[2020-03-19] MEDS: INSULIN ASPART (NovoLOG) 100 UNIT/ML VIAL SQ SCH ×4 (08:09→20:29)
[2020-03-19] MEDS: glipiZIDE 10 MG TAB PO SCH ×2 (09:48→19:08)
[2020-03-19] MEDS: FENOFIBRATE 160 MG TAB PO SCH (09:48)
--- NOTE | 2020-03-19 11:18 | P.PN ---
Progress Note - Text Progress Note Date: 03/19/20 Interval History: Patient was seen wandering the hallways and was directable and agreeable to yahaira paredes with designer writer in the office. Patient was concerned about being oversedated at nighttime. He states that he was able to sleep throughout the night over claims that he was not able to awaken well this morning. Patient also claims that during the day still feeling a bit tired however does claim that his anxieties been helping. Patient states he did have his nighttime dose of Zyprexa decreased. Patient claims that he is trying to go to groups and participate as best as he can. He claims that he missed coffee this morning however does claim that he is eating his meals. He states that he does not have suicidal thoughts today. He claims that he is feeling anxious about possibly going home soon and claims that he would relapse if he does not go to [facility]. Hospital Admissions Officer reviewed patient's lab work today. He states that he is able to sleep better last night. He admits having a fair appetite. At this time patient denies any suicidal or homical ideations, intent or plan. Patient denies any auditory, visual hallucinations and denies any paranoia or delusions. Mental Status Exam: General Appearance: Patient appears to be stated age is alert, directable, and attempts to cooperate. Patient appears to have improving hygiene and grooming. Behavior: Patient is seated without any agitated behavior. Attempts to cooperate. Speech: Patient's speech is fluent and nonpressured Mood/Affect: Patient reports their mood is "a bit better", affect is congruent and constricted Suicidality/Homicidality: Patient denies having any homicidal ideation intent or plan. Denies any suicidal ideations intent or plan Perceptions: Patient denies any visual hallucinations and denies any auditory hallucinations Though content/process: There is no evidence of any delusional thought content and thought process is linear and goal-directed. Perseverating on somatic symptoms and his anxiety. Memory and concentration: AOX3, grossly intact for the purposes of this session Judgment and insight: poor, improving mildly Assessment Mood disorder unspecified, rule out secondary to polysubstance abuse versus bipolar disorder. Anxiety disorder unspecified Inhalant abuse Nicotine dependence Plan: -Patient continues to meet criteria for inpatient psychiatric admission for symptom stabilization and safety. Patient has signed adult voluntary form and medication consent and was placed in patient's chart. -Medications: decreased Zyprexa 1.25 mg daily + 5 mg daily at bedtime for insomnia/mood stabilization. Continue with Antabuse daily for alcohol use disorder. Continue with Cymbalta 60 mg twice a day for pain/mood/anxiety. Continue with BuSpar 30 mg twice a day for anxiety. -Added stool softener. Will add hemorrhoid cream. -Will ask medicine for input on patient's potassium and his insulin dosing as his potassium level is 5.5 today. -When necessary Sudhir and Abril for agitation/aggression. -NRT - nicotine patch -SW on board for discharge planning. Encouraged the patient to participate in milieu. Patient has an intake date at [facility] on March 24. Patient is at high-risk for relapse and is impulsive and will attempt to discharge patient directly to rehab.
[2020-03-19 12:03] LABS: Potassium 5.2 mmol/L (3.5-5.1)
[2020-03-19 12:04] LABS: Calcium 9.3 mg/dL (8.4-10.2)
[2020-03-19 13:21] LABS: Glucose,Whole Blood 317 mg/dL (75-99)
[2020-03-19 17:33] LABS: Glucose,Whole Blood 151 mg/dL (75-99)
[2020-03-19] MEDS: ACETAMINOPHEN TAB 325 MG TAB PO PRN (17:40)
[2020-03-19] MEDS: cloNIDine HCL 0.1 MG TAB PO SCH (20:28)
[2020-03-19 20:36] LABS: Glucose,Whole Blood 243 mg/dL (75-99)
[2020-03-19] MEDS ORDERED: OLANZapine 5 MG TAB PO SCH (21:00)
[2020-03-19] MEDS: PANTOPRAZOLE 40 MG TABLET PO SCH (21:08)
[2020-03-19] MEDS: PRAVASTATIN SODIUM 40 MG TAB PO SCH (21:08)
[2020-03-20] MEDS: LORazepam 1 MG TAB PO PRN ×3 (07:18→21:52)
[2020-03-20 07:46] LABS: Glucose,Whole Blood 328 mg/dL (75-99)
[2020-03-20] MEDS: NICOTINE 7MG/24HR PATCH TRANSDERM SCH (07:56)
[2020-03-20] MEDS: carvediloL 6.25 MG TAB PO SCH ×2 (07:56→16:20)
[2020-03-20] MEDS: INSULIN ASPART (NovoLOG) 100 UNIT/ML VIAL SQ SCH ×4 (07:56→20:46)
[2020-03-20] MEDS: glipiZIDE 10 MG TAB PO SCH ×2 (07:56→16:19)
[2020-03-20] MEDS: busPIRone HCl 10 MG TAB PO SCH ×2 (07:57→20:47)
[2020-03-20] MEDS: FENOFIBRATE 160 MG TAB PO SCH (07:57)
[2020-03-20] MEDS: DULoxetine HCL 60 MG CAPSULE.DR PO SCH ×2 (07:57→20:48)
[2020-03-20] MEDS: DISULFIRAM 500 MG PO SCH (07:57)
[2020-03-20] MEDS: OLANZapine 2.5 MG TAB PO SCH ×2 (07:58→20:49)
[2020-03-20] MEDS: SENNOSIDES-DOCUSATE SODIUM 1 EACH TAB PO SCH ×2 (07:58→20:47)
[2020-03-20] MEDS: TERBINAFINE 1% CREAM 15 GM TUBE TOPICAL SCH ×2 (07:58→21:23)
[2020-03-20] MEDS: GABAPENTIN 400 MG CAP PO SCH ×3 (07:58→20:47)
--- NOTE | 2020-03-20 11:31 | P.PN ---
Progress Note - Text Progress Note Date: 03/20/20 Interval History: Patient was seen taking part in activities group today and was directable and agreeable to speak with caption writer in the office. Patient claims that his anxiety was worse this morning and states that he did not sleep as well as he thought last night. Patient was asking to have his Zyprexa increased once again to 7.5 mg. He states that his energy level today is fair and he does not feel lethargic. He claims that his mood is also been gradually improving and spoke more about wanting to eventually move out of his home and find his own home. Patient claims that he is trying to go to groups and participate as best as he can. He claims that he is having problems of his hemorrhoids and was requesting to have medication for it. He states that he does not have suicidal thoughts today. He admits having a fair appetite. At this time patient denies any suicidal or homical ideations, intent or plan. Patient denies any auditory, visual hallucinations and denies any paranoia or delusions. Mental Status Exam: General Appearance: Patient appears to be stated age is alert, directable, and attempts to cooperate. Patient appears to have improving hygiene and grooming. Behavior: Patient is seated without any agitated behavior. Attempts to cooperate. Speech: Patient's speech is fluent and nonpressured Mood/Affect: Patient reports their mood is "better", affect is congruent and constricted Suicidality/Homicidality: Patient denies having any homicidal ideation intent or plan. Denies any suicidal ideations intent or plan Perceptions: Patient denies any visual hallucinations and denies any auditory hallucinations Though content/process: There is no evidence of any delusional thought content and thought process is linear and goal-directed. Memory and concentration: AOX3, grossly intact for the purposes of this session Judgment and insight: poor, improving mildly Assessment Mood disorder unspecified, rule out secondary to polysubstance abuse versus bipolar disorder. Anxiety disorder unspecified Inhalant abuse Nicotine dependence Plan: -Patient continues to meet criteria for inpatient psychiatric admission for symptom stabilization and safety. Patient has signed adult voluntary form and medication consent and was placed in patient's chart. -Medications: Increased Zyprexa 1.25 mg daily + 7.5 mg daily at bedtime for insomnia/mood stabilization. Continue with Antabuse daily for alcohol use disorder. Continue with Cymbalta 60 mg twice a day for pain/mood/anxiety. Continue with BuSpar 30 mg twice a day for anxiety. -Continue with stool softener. Will add hemorrhoid cream. -Potassium improved yesterday. -When necessary Ativan and Geodon for agitation/aggression. -NRT - nicotine patch -SW on board for discharge planning. Encouraged the patient to participate in milieu. Patient has an intake date at [facility] on March 24. Patient is at high-risk for relapse and is impulsive and will attempt to discharge patient directly to rehab.
[2020-03-20] MEDS: HYDROCORTISONE 2.5% RECTAL CREAM 30 GM TUBE RECTAL SCH ×2 (12:12→20:50)
[2020-03-20 12:47] LABS: Glucose,Whole Blood 241 mg/dL (75-99)
[2020-03-20] MEDS: ACETAMINOPHEN TAB 325 MG TAB PO PRN (16:20)
[2020-03-20 17:31] LABS: Glucose,Whole Blood 220 mg/dL (75-99)
[2020-03-20 19:58] LABS: Glucose,Whole Blood 266 mg/dL (75-99)
[2020-03-20] MEDS: cloNIDine HCL 0.1 MG TAB PO SCH (20:47)
[2020-03-20] MEDS: INSULIN DETEMIR (LEVEMIR) 100 UNIT/ML SYR SQ SCH (20:49)
[2020-03-20] MEDS: PANTOPRAZOLE 40 MG TABLET PO SCH (20:49)
[2020-03-20] MEDS: PRAVASTATIN SODIUM 40 MG TAB PO SCH (20:51)
[2020-03-21] MEDS: LORazepam 1 MG TAB PO PRN ×2 (06:12→16:33)
[2020-03-21] MEDS: glipiZIDE 10 MG TAB PO SCH ×2 (07:54→16:32)
[2020-03-21] MEDS: carvediloL 6.25 MG TAB PO SCH ×2 (07:54→16:33)
[2020-03-21] MEDS: INSULIN ASPART (NovoLOG) 100 UNIT/ML VIAL SQ SCH ×4 (07:55→20:01)
[2020-03-21] MEDS: busPIRone HCl 10 MG TAB PO SCH ×2 (07:55→20:01)
[2020-03-21] MEDS: DULoxetine HCL 60 MG CAPSULE.DR PO SCH ×2 (07:56→20:01)
[2020-03-21] MEDS: DISULFIRAM 500 MG PO SCH (07:56)
[2020-03-21] MEDS: GABAPENTIN 400 MG CAP PO SCH ×3 (07:56→20:01)
[2020-03-21] MEDS: FENOFIBRATE 160 MG TAB PO SCH (07:56)
[2020-03-21] MEDS: SENNOSIDES-DOCUSATE SODIUM 1 EACH TAB PO SCH ×2 (07:57→20:01)
[2020-03-21] MEDS: OLANZapine 2.5 MG TAB PO SCH ×2 (07:57→21:08)
[2020-03-21] MEDS: TERBINAFINE 1% CREAM 15 GM TUBE TOPICAL SCH ×2 (07:57→21:29)
[2020-03-21] MEDS: HYDROCORTISONE 2.5% RECTAL CREAM 30 GM TUBE RECTAL SCH ×2 (07:58→21:29)
[2020-03-21] MEDS: NICOTINE 7MG/24HR PATCH TRANSDERM SCH (07:58)
[2020-03-21 08:00] LABS: Glucose,Whole Blood 247 mg/dL (75-99)
--- NOTE | 2020-03-21 10:52 | P.PN ---
Progress Note - Text Progress Note Date: 03/21/20 Interval History: Patient was seen in the nurse's desk today and was directable and agreeable to speak with documentation writer in the office. Patient claims that his anxiety has been overall better however did state that he is to take an Ativan this morning due to a "panic attack". He states that he's been struggling with this for several years. He claims that he was able to sleep better throughout the night last night. He states that his energy level today is fair and he does not feel lethargic. He claims that his mood is also been gradually improving. Needs to speak about his future plans of obtaining section 8 housing eventually after rehab. Patient claims that he is trying to go to groups and participate as best as he can. He states that he does not have suicidal thoughts today. He admits having a fair appetite. At this time patient denies any suicidal or homical ideations, intent or plan. Patient denies any auditory, visual hallucinations and denies any paranoia or delusions. Mental Status Exam: General Appearance: Patient appears to be stated age is alert, directable, and attempts to cooperate. Patient appears to have improving hygiene and grooming. Behavior: Patient is seated without any agitated behavior. Attempts to cooperate. Speech: Patient's speech is fluent and nonpressured Mood/Affect: Patient reports their mood is "better", affect is congruent and constricted Suicidality/Homicidality: Patient denies having any homicidal ideation intent or plan. Denies any suicidal ideations intent or plan Perceptions: Patient denies any visual hallucinations and denies any auditory hallucinations Though content/process: There is no evidence of any delusional thought content and thought process is linear and goal-directed. Memory and concentration: AOX3, grossly intact for the purposes of this session Judgment and insight: poor, improving mildly Assessment Mood disorder unspecified, rule out secondary to polysubstance abuse versus bipolar disorder. Anxiety disorder unspecified Inhalant abuse Nicotine dependence Plan: -Patient continues to meet criteria for inpatient psychiatric admission for symptom stabilization and safety. Patient has signed adult voluntary form and medication consent and was placed in patient's chart. -Medications: Continue with Zyprexa 1.25 mg daily + 7.5 mg daily at bedtime for insomnia/mood stabilization. Continue with Antabuse daily for alcohol use disorder. Continue with Cymbalta 60 mg twice a day for pain/mood/anxiety. Continue with BuSpar 30 mg twice a day for anxiety. Added melatonin 6 mg daily at bedtime for sleep. -Continue with stool softener. Continue with hemorrhoid cream. -Potassium improved yesterday. -When necessary Ativan and Geodon for agitation/aggression. -NRT - nicotine patch -SW on board for discharge planning. Encouraged the patient to participate in milieu. Patient has an intake date at [facility] on March 24. Patient is at high-risk for relapse and is impulsive and will attempt to discharge patient directly to rehab.
[2020-03-21 12:44] LABS: Glucose,Whole Blood 279 mg/dL (75-99)
[2020-03-21] MEDS: ACETAMINOPHEN TAB 325 MG TAB PO PRN (16:33)
[2020-03-21 17:36] LABS: Glucose,Whole Blood 225 mg/dL (75-99)
[2020-03-21 19:56] LABS: Glucose,Whole Blood 264 mg/dL (75-99)
[2020-03-21] MEDS: cloNIDine HCL 0.1 MG TAB PO SCH (20:01)
[2020-03-21] MEDS: PRAVASTATIN SODIUM 40 MG TAB PO SCH (20:02)
[2020-03-21] MEDS: INSULIN DETEMIR (LEVEMIR) 100 UNIT/ML SYR SQ SCH (21:08)
[2020-03-21] MEDS: MELATONIN 3 MG TABLET PO SCH (21:08)
[2020-03-21] MEDS: PANTOPRAZOLE 40 MG TABLET PO SCH (21:08)
[2020-03-22] MEDS: LORazepam 1 MG TAB PO PRN ×2 (01:05→09:02)
[2020-03-22] MEDS: ACETAMINOPHEN TAB 325 MG TAB PO PRN ×2 (05:39→21:37)
[2020-03-22 08:18] LABS: Glucose,Whole Blood 345 mg/dL (75-99)
[2020-03-22] MEDS: INSULIN ASPART (NovoLOG) 100 UNIT/ML VIAL SQ SCH ×4 (08:26→20:04)
[2020-03-22] MEDS: DISULFIRAM 500 MG PO SCH (08:58)
[2020-03-22] MEDS: busPIRone HCl 10 MG TAB PO SCH ×2 (09:02→20:05)
[2020-03-22] MEDS: OLANZapine 2.5 MG TAB PO SCH ×2 (09:02→20:06)
[2020-03-22] MEDS: GABAPENTIN 400 MG CAP PO SCH ×3 (09:02→20:50)
[2020-03-22] MEDS: glipiZIDE 10 MG TAB PO SCH ×2 (09:02→18:01)
[2020-03-22] MEDS: DULoxetine HCL 60 MG CAPSULE.DR PO SCH ×2 (09:02→20:07)
[2020-03-22] MEDS: SENNOSIDES-DOCUSATE SODIUM 1 EACH TAB PO SCH ×2 (09:02→20:05)
[2020-03-22] MEDS: carvediloL 6.25 MG TAB PO SCH ×2 (09:02→18:01)
[2020-03-22] MEDS: FENOFIBRATE 160 MG TAB PO SCH (09:02)
[2020-03-22] MEDS: HYDROCORTISONE 2.5% RECTAL CREAM 30 GM TUBE RECTAL SCH ×2 (09:03→20:07)
[2020-03-22] MEDS: TERBINAFINE 1% CREAM 15 GM TUBE TOPICAL SCH ×2 (09:03→20:07)
[2020-03-22] MEDS: NICOTINE 7MG/24HR PATCH TRANSDERM SCH (09:03)
--- NOTE | 2020-03-22 11:15 | P.PN ---
Progress Note - Text Progress Note Date: 03/22/20 Interval History: Patient was seen near the nurse's desk today and was directable and agreeable to speak with news writer in the office. Patient claims that his anxiety has been overall getting better, she did state that he did have some mild anxiety this morning however claims it is mainly related to thinking about his sister and going back to her place when he is finished rehab. He claims that he was able to sleep better throughout the night last night. He states that his energy level today is fair and he does not feel lethargic. He spoke about politics and another world issues including the Coronavirus. He claims that his mood is also been gradually improving. Needs to speak about his future plans of obtaining section 8 housing eventually after rehab. Patient claims that he is trying to go to groups and participate as best as he can. He states that he does not have suicidal thoughts today. He admits having a fair appetite. At this time patient denies any suicidal or homical ideations, intent or plan. Patient denies any auditory, visual hallucinations and denies any paranoia or delusions. Mental Status Exam: General Appearance: Patient appears to be stated age is alert, directable, and attempts to cooperate. Patient appears to have improving hygiene and grooming. Behavior: Patient is seated without any agitated behavior. Attempts to cooperate. Speech: Patient's speech is fluent and nonpressured Mood/Affect: Patient reports their mood is "good", affect is congruent and constricted Suicidality/Homicidality: Patient denies having any homicidal ideation intent or plan. Denies any suicidal ideations intent or plan Perceptions: Patient denies any visual hallucinations and denies any auditory hallucinations Though content/process: There is no evidence of any delusional thought content and thought process is linear and goal-directed. Memory and concentration: AOX3, grossly intact for the purposes of this session Judgment and insight: poor, improving mildly Assessment Mood disorder unspecified, rule out secondary to polysubstance abuse versus bipolar disorder. Anxiety disorder unspecified Inhalant abuse Nicotine dependence Plan: -Patient continues to meet criteria for inpatient psychiatric admission for symptom stabilization and safety. Patient has signed adult voluntary form and medication consent and was placed in patient's chart. -Medications: Continue with Zyprexa 1.25 mg daily + 7.5 mg daily at bedtime for insomnia/mood stabilization. Continue with Antabuse daily for alcohol use disorder. Continue with Cymbalta 60 mg twice a day for pain/mood/anxiety. Continue with BuSpar 30 mg twice a day for anxiety. Continue with melatonin 6 mg daily at bedtime for sleep. -Continue with stool softener. Continue with hemorrhoid cream. -Potassium improved yesterday. -When necessary Ativan and Geodon for agitation/aggression. -NRT - nicotine patch -SW on board for discharge planning. Encouraged the patient to participate in milieu. Patient has an intake date at [facility] on March 24. Patient is at high-risk for relapse and is impulsive and will attempt to discharge patient directly to rehab.
[2020-03-22 12:52] LABS: Glucose,Whole Blood 115 mg/dL (75-99)
[2020-03-22] MEDS: LORazepam 0.5 MG TAB PO PRN (16:39)
[2020-03-22 17:55] LABS: Glucose,Whole Blood 322 mg/dL (75-99)
[2020-03-22 19:57] LABS: Glucose,Whole Blood 215 mg/dL (75-99)
[2020-03-22] MEDS: MELATONIN 3 MG TABLET PO SCH (20:06)
[2020-03-22] MEDS: PRAVASTATIN SODIUM 40 MG TAB PO SCH (20:07)
[2020-03-22] MEDS: PANTOPRAZOLE 40 MG TABLET PO SCH (20:07)
[2020-03-22] MEDS: cloNIDine HCL 0.1 MG TAB PO SCH (20:07)
[2020-03-22] MEDS: INSULIN DETEMIR (LEVEMIR) 100 UNIT/ML SYR SQ SCH (20:48)
[2020-03-23] MEDS: LORazepam 0.5 MG TAB PO PRN ×3 (03:27→18:16)
[2020-03-23 07:51] LABS: Glucose,Whole Blood 327 mg/dL (75-99)
[2020-03-23] MEDS: INSULIN ASPART (NovoLOG) 100 UNIT/ML VIAL SQ SCH ×4 (07:59→19:59)
[2020-03-23] MEDS: glipiZIDE 10 MG TAB PO SCH ×2 (07:59→17:44)
[2020-03-23] MEDS: busPIRone HCl 10 MG TAB PO SCH ×2 (08:44→20:02)
[2020-03-23] MEDS: DISULFIRAM 500 MG PO SCH (08:44)
[2020-03-23] MEDS: GABAPENTIN 400 MG CAP PO SCH ×3 (08:44→20:02)
[2020-03-23] MEDS: carvediloL 6.25 MG TAB PO SCH ×2 (08:44→17:45)
[2020-03-23] MEDS: DULoxetine HCL 60 MG CAPSULE.DR PO SCH ×2 (08:44→20:02)
[2020-03-23] MEDS: FENOFIBRATE 160 MG TAB PO SCH (08:44)
[2020-03-23] MEDS: TERBINAFINE 1% CREAM 15 GM TUBE TOPICAL SCH ×2 (08:45→21:23)
[2020-03-23] MEDS: SENNOSIDES-DOCUSATE SODIUM 1 EACH TAB PO SCH ×2 (08:45→20:02)
[2020-03-23] MEDS: NICOTINE 7MG/24HR PATCH TRANSDERM SCH (08:45)
[2020-03-23] MEDS: HYDROCORTISONE 2.5% RECTAL CREAM 30 GM TUBE RECTAL SCH ×2 (08:45→21:23)
[2020-03-23] MEDS: OLANZapine 2.5 MG TAB PO SCH ×2 (08:45→21:11)
[2020-03-23 09:40] LABS: Calcium 9.7 mg/dL (8.4-10.2); Potassium 5.3 mmol/L (3.5-5.1)
--- NOTE | 2020-03-23 10:07 | P.PN ---
Progress Note - Text Progress Note Date: 03/23/20 Interval History: Patient was seen participating in group this morning and was directable and ag reeable to speak with director underwriter sales in the office. Patient claims that his anxiety has been overall getting better. He claims that his mood has been also improving on the current medications. He claims that he needed to take an Ativan this morning early due to waking up from a nightmare in a panic attack. He continues to focus on the rehab and what he will do after he leaves. He claims that he was able to sleep better throughout the night last night. He states that his energy level today is fair and he does not feel lethargic. Patient claims that he is trying to go to groups and participate as best as he can. Things that he is getting along with other individuals on the unit well. He states that he does not have suicidal thoughts today. He admits having a fair appetite. At this time patient denies any suicidal or homical ideations, intent or plan. Patient denies any auditory, visual hallucinations and denies any paranoia or delusions. Mental Status Exam: General Appearance: Patient appears to be stated age is alert, directable, and attempts to cooperate. Patient appears to have improving hygiene and grooming. Behavior: Patient is seated without any agitated behavior. Attempts to c ooperate. Speech: Patient's speech is fluent and nonpressured Mood/Affect: Patient reports their mood is "good", affect is congruent and constricted Suicidality/Homicidality: Patient denies having any homicidal ideation intent or plan. Denies any suicidal ideations intent or plan Perceptions: Patient denies any visual hallucinations and denies any auditory hallucinations Though content/process: There is no evidence of any delusional thought content and thought process is linear and goal-directed. Memory and concentration: AOX3, grossly intact for the purposes of this session Judgment and insight: improving mildly Assessment Mood disorder unspecified, rule out secondary to polysubstance abuse versus bipolar disorder. Anxiety disorder unspecified Inhalant abuse Nicotine dependence Plan: -Patient continues to meet criteria for inpatient psychiatric admission for symptom stabilization and safety. Patient has signed adult voluntary form and medication consent and was placed in patient's chart. -Medications: Continue with Zyprexa 1.25 mg daily + 7.5 mg daily at bedtime for insomnia/mood stabilization. Continue with Antabuse daily for alcohol use disorder. Continue with Cymbalta 60 mg twice a day for pain/mood/anxiety. Continue with BuSpar 30 mg twice a day for anxiety. Continue with melatonin 6 mg daily at bedtime for sleep. Discontinued Catapres and replaced with prazosin 1 mg daily at bedtime for nightmares. -Continue with stool softener. Continue with hemorrhoid cream. -When necessary Ativan and Geodon for agitation/aggression. -NRT - nicotine patch -SW on board for discharge planning. Encouraged the patient to participate in milieu. Patient has an intake date at [facility] on February. Patient is at high-risk for relapse and is impulsive and will attempt to discharge patient directly to rehab. We'll attempt to ask for any further recommendations regarding patient's insulin and metformin prior to discharge.
[2020-03-23] MEDS: INSULIN ASPART (NovoLOG) 100 UNIT/ML VIAL SQ ONE ×2 (10:52→10:57)
[2020-03-23 11:08] LABS: Glucose,Whole Blood 180 mg/dL (75-99)
[2020-03-23 12:33] LABS: Glucose,Whole Blood 152 mg/dL (75-99)
[2020-03-23 17:40] LABS: Glucose,Whole Blood 324 mg/dL (75-99)
[2020-03-23 19:55] LABS: Glucose,Whole Blood 189 mg/dL (75-99)
[2020-03-23] MEDS: INSULIN DETEMIR (LEVEMIR) 100 UNIT/ML SYR SQ SCH (19:59)
[2020-03-23] MEDS ORDERED: PRAZOSIN 1 MG CAP PO SCH (21:00)
[2020-03-23] MEDS: MELATONIN 3 MG TABLET PO SCH (21:10)
[2020-03-23] MEDS: PANTOPRAZOLE 40 MG TABLET PO SCH (21:10)
[2020-03-23] MEDS: PRAVASTATIN SODIUM 40 MG TAB PO SCH (21:10)
[2020-03-24] MEDS: LORazepam 0.5 MG TAB PO PRN ×2 (03:28→10:58)
[2020-03-24] MEDS: ACETAMINOPHEN TAB 325 MG TAB PO PRN (03:28)
[2020-03-24 07:11] VITALS: BP 141/102; PULSE 134; RESP 18; TEMP 97.6
[2020-03-24 07:59] LABS: Glucose,Whole Blood 362 mg/dL (75-99)
[2020-03-24] MEDS: busPIRone HCl 10 MG TAB PO SCH (08:06)
[2020-03-24] MEDS: OLANZapine 2.5 MG TAB PO SCH (08:07)
[2020-03-24] MEDS: SENNOSIDES-DOCUSATE SODIUM 1 EACH TAB PO SCH (08:07)
[2020-03-24] MEDS: GABAPENTIN 400 MG CAP PO SCH (08:07)
[2020-03-24] MEDS: HYDROCORTISONE 2.5% RECTAL CREAM 30 GM TUBE RECTAL SCH (08:08)
[2020-03-24] MEDS: carvediloL 6.25 MG TAB PO SCH (08:08)
[2020-03-24] MEDS: INSULIN ASPART (NovoLOG) 100 UNIT/ML VIAL SQ SCH (08:09)
[2020-03-24] MEDS: glipiZIDE 10 MG TAB PO SCH (08:10)
[2020-03-24] MEDS: DISULFIRAM 500 MG PO SCH (08:54)
[2020-03-24] MEDS: NICOTINE 7MG/24HR PATCH TRANSDERM SCH (09:09)
[2020-03-24] MEDS: FENOFIBRATE 160 MG TAB PO SCH (09:09)
[2020-03-24] MEDS: TERBINAFINE 1% CREAM 15 GM TUBE TOPICAL SCH (09:10)
[2020-03-24] MEDS: DULoxetine HCL 60 MG CAPSULE.DR PO SCH (09:11)
--- NOTE | 2020-03-24 10:00 | P.DS ---
Providers Date of admission: 03/15/20 17:36 Expected date of discharge: 03/24/20 Attending physician: Conrado David MD Consults: 03/15/20 18:06 Consult Physician Routine Consulting Provider: Sourav Sloan Consult Reason/Comments: H&P and medical and diabetes and hypotension Do you want consulting provider notified?: Yes Primary care physician: Marlen Mobley - Discharge Diagnosis(es) (1) Unspecified mood [affective] disorder Current Visit: Yes Status: Acute Priority: High (2) Anxiety disorder Current Visit: Yes Status: Acute Priority: Medium (3) Inhalant abuse Current Visit: Yes Status: Acute Priority: High (4) Nicotine dependence Current Visit: Yes Status: Acute Priority: Low Hospital Course: Admission HPI: Patient is a 55-year-old male currently lives with her sister in a house is has 1 son and collects disability. Patient presented to the hospital through the ER for psychiatric evaluation and depression. Patient has a significant history for polysubstance abuse including huffing aerosolized cans, history of depression and psychosis. Patient was last hospitalized in the psychiatric unit in August 2019 and was released to [facility]. According to ER report patient has apparently been hallucinating auditory and visually. Patient claims that he has been huffing for the past year. He states that he was diagnosed with covid-19 approximately 4 months ago. He states that he was found in a parking lot over the weekend that he was using ear upholstery cleaner cans repeatedly in his car. Patient's urine drug screen was positive for benzodiazepines and TCAs. Patient's creatinine level was 2.04 and BUN was 25. Patient's sodium was 134 and WBCs were 12.0 on admission. Patient was agreeable to speak to software writer and appeared to be anxious. He claims that he has been having a "rough year" and states that he's been thinking a lot about covid-19. He claims that after leaving the hospital in August he went to [facility] for rehab and claims that he ended up testing positive for coronavirus. He claims that he was then transferred to [place] to go to [facility] and was therefore a couple of months. He claims that once he left he was feeling "high" and states that he was having manic like symptoms where he was spending a lot of money and had an elated affect. He claims that he also started drinking alcohol approximately fifth of vodka a day and also started using aerosolized cans once again. He claims that he was using approximately 6-9 cans a day. He states that his highs from using the cans are separate from when he feels "manic". He states that his sleep is fair when he is on Seroquel and claims that he was hearing voices which were negative when he was also using. He claims that he sat in the parking lot in his car and continuously was using aerosolized cans. He states that the police artist stopped him and brought him into the hospital for significant concerns. Patient claims that his anxiety is fairly high at this point and claims that his mood is "unstable". Patient denies any current suicidal or homicidal ideations intent or plan. At this time patient denies any current auditory or visual hallucinations. Patient denies any flight of ideas and increased in goal directed behavior. Patient admits to using cigarettes daily however denies any other recreational drug use. Patient also uses aeroso lized cans and also alcohol as noted above. Hospital course: Upon admission to the unit patient was initially depressed and anxious in going through withdrawals. Patient was however directable and agreeable to commence treatment. Patient got along well with other patients on the unit and followed unit protocol. Patient was compliant with the medications and denied any side effects throughout hospital course. Patient was started on Zyprexa and titrated up to dose of 1.25 mg daily +7.5 mg daily at bedtime for insomnia/mood stabilization. Patient was also restarted on his Antabuse, restarted on Cymbalta 60 mg twice a day for mood/pain/anxiety and also restarted on BuSpar 30 mg twice a day for anxiety. Added on melatonin 6 mg daily at bedtime for sleep and discontinue Catapres and replaced with prazosin titrated up to a dose of 2 mg daily at bedtime for nightmares/blood pressure. Patient will also be given a two-week supply of when necessary Ativan 0.5 mg daily at bedtime for anxiety /panic attacks. Patient spoke of his stressors and engaged in therapy both group and individual. Patient was also seen by medical team for history and physical exam. Patient had a chest x-ray on admission on 03/14/2020 which showed stranded left basilar atelectasis with no acute process seen. Throughout the course of the hospitalization patient gradually improved with regards to mood, anxiety, sleep and became future oriented with improved insight and judgment. On the day of discharge patient denied any suicidal or homicidal ideations intent or plan denied any auditory or visual hallucinations. Patient endorsed wanting to live for his health and his sobriety. The patient denied any access to guns or weapons. Patient denied any paranoia and did not endorse any delusions. Patient does have a significant history of substance abuse and was counseled on abstaining from all substances including alcohol and marijuana. Patient was offered inpatient substance rehab and was discharged directly to [facility] inpatient rehab from the unit. Patient was also counseled on the medications and need for regular compliance and was encouraged to follow-up with their outpatient appointment for mental health and also for primary care. Mental status exam: General Appearance: Patient appears to be overweight, stated age is alert, pleasant, and cooperative. Patient is in no acute distress and has improved hygiene and grooming Behavior: Patient is calmly seated without any agitated behavior. Speech: Patient's speech is fluent and nonpressured. Mood/Affect: Patient reports their mood is "better", affect is congruent and euthymic. Suicidality/Homicidality: Patient denies having any suicidal or homicidal ideation intent or plan. Perceptions: Patient denies any auditory or visual hallucinations. Though content/process: There is no evidence of any delusional thought content and thought process is linear and goal-directed. more future oriented Memory and concentration: AOX3, grossly intact for the purposes of this session. Can spell "WORLD" backwards correctly. Judgment and insight: chronically poor, however has improved with guarded prognosis Impression: Mood disorder unspecified, rule out substance-induced mood disorder versus bipolar disorder Anxiety disorder unspecified Inhalant abuse Nicotine dependence Plan: -Continue with discharge today as patient has improved and stabilized psychiatrically and is not currently an imminent threat to himself and/or others. Patient will remain at chronically elevated risk for harm to self and/or others due to his polysubstance abuse. -Continue medications: Continue with Zyprexa 1.25 mg daily +7.5 mg daily at bedtime for mood stabilization/insomnia, Antabuse, Cymbalta 60 mg twice a day for mood/pain/anxiety. BuSpar 30 mg twice a day for anxiety, melatonin 6 mg daily at bedtime for sleep, prazosin 2 mg daily at bedtime for nightmares/blood pressure and also will be given a two-week supply of 0.5 mg of Ativan nightly for anxiety/panic attacks. -Patient was counseled on the need for medication compliance and appropriate follow-up at mental health and also primary care for medical issues. Patient verbalized understanding and agreed. -Social work to help patient with arrangement for discharge to [facility] for inpatient rehab today. Social work also to arrange for patients follow up appointments with [facility] for psychiatric care along with follow up with primary care provider. -Patient counseled on abstaining from recreational drugs and marijuana and alcohol. Was informed/educated on the adverse effects on their physical and mental health. Patient verbally agreed and understood. Patient will be going to [facility] for inpatient rehab today. -Patient was instructed to return to the hospital or seek immediate medical care if their psychiatric or medical symptoms do worsen or reoccur. Allergies Allergy/AdvReac Type Severity Reaction Status Date / Time thimerosal Allergy Rash/Hives Verified 03/14/20 14:20 Laboratory Results WBC 12.0 k/uL (3.8-10.6) H 03/14/20 10:36 RBC 4.03 m/uL (4.30-5.90) L 03/14/20 10:36 Hgb 12.4 gm/dL (13.0-17.5) L 03/14/20 10:36 Hct 38.6 % (39.0-53.0) L 03/14/20 10:36 MCV 95.7 fL (80.0-100.0) 03/14/20 10:36 MCH 30.7 pg (25.0-35.0) 03/14/20 10:36 MCHC 32.1 g/dL (31.0-37.0) 03/14/20 10:36 RDW 14.4 % (11.5-15.5) 03/14/20 10:36 Plt Count 330 k/uL (150-450) 03/14/20 10:36 Neutrophils % 91 % 03/14/20 10:36 Lymphocytes % 3 % 03/14/20 10:36 Monocytes % 3 % 03/14/20 10:36 Eosinophils % 2 % 03/14/20 10:36 Basophils % 0 % 03/14/20 10:36 Neutrophils # 10.8 k/uL (1.3-7.7) H 03/14/20 10:36 Lymphocytes # 0.4 k/uL (1.0-4.8) L 03/14/20 10:36 Monocytes # 0.3 k/uL (0-1.0) 03/14/20 10:36 Eosinophils # 0.3 k/uL (0-0.7) 03/14/20 10:36 Basophils # 0.0 k/uL (0-0.2) 03/14/20 10:36 Sodium 136 mmol/L (137-145) L 03/23/20 08:58 Potassium 5.1 mmol/L (3.5-5.1) 03/23/20 12:24 Chloride 103 mmol/L (98-107) 03/23/20 08:58 Carbon Dioxide 22 mmol/L (22-30) 03/23/20 08:58 Anion Gap 11 mmol/L 03/23/20 08:58 BUN 28 mg/dL (9-20) H 03/23/20 08:58 Creatinine 1.21 mg/dL (0.66-1.25) 03/23/20 08:58 Est GFR (CKD-EPI)AfAm 77 (>60 ml/min/1.73 sqM) 03/23/20 08:58 Est GFR (CKD-EPI)NonAf 67 (>60 ml/min/1.73 sqM) 03/23/20 08:58 Glucose 314 mg/dL (74-99) H 03/23/20 08:58 POC Glucose (mg/dL) 362 mg/dL (75-99) H 03/24/20 07:54 POC Glu Scientific Artist ID Greg Torres 03/24/20 07:[address] Glu mg/dL 192 03/14/20 10:36 Hemoglobin A1c 8.3 % (4.0-6.0) H 03/14/20 10:36 Calcium 9.7 mg/dL (8.4-10.2) 03/23/20 08:58 Total Bilirubin 0.7 mg/dL (0.2-1.3) 03/14/20 10:36 AST 47 U/L (17-59) 03/14/20 10:36 ALT 21 U/L (4-49) 03/14/20 10:36 Alkaline Phosphatase 151 U/L (38-126) H 03/14/20 10:36 Total Protein 8.3 g/dL (6.3-8.2) H 03/14/20 10:36 Albumin 5.0 g/dL (3.5-5.0) 03/14/20 10:36 Triglycerides 555 mg/dL (<150) H 03/14/20 10:36 Cholesterol 266 mg/dL (<200) H 03/14/20 10:36 LDL Cholesterol, Calc mg/dL (0-99) 03/14/20 10:36 HDL Cholesterol 49 mg/dL (40-60) 03/14/20 10:36 Urine Opiates Screen Not Detected (NotDetected) 03/14/20 10:36 Ur Oxycodone Screen Not Detected (NotDetected) 03/14/20 10:36 Urine Methadone Screen Not Detected (NotDetected) 03/14/20 10:36 Ur Propoxyphene Screen Not Detected (NotDetected) 03/14/20 10:36 Ur Barbiturates Screen Not Detected (NotDetected) 03/14/20 10:36 U Tricyclic Antidepress Detected (NotDetected) H 03/14/20 10:36 Ur Phencyclidine Scrn Not Detected (NotDetected) 03/14/20 10:36 Ur Amphetamines Screen Not Detected (NotDetected) 03/14/20 10:36 U Methamphetamines Scrn Not Detected (NotDetected) 03/14/20 10:36 U Benzodiazepines Scrn Detected (NotDetected) H 03/14/20 10:36 Urine Cocaine Screen Not Detected (NotDetected) 03/14/20 10:36 U Marijuana (THC) Screen Not Detected (NotDetected) 03/14/20 10:36 Coronavirus (PCR) Not Detected (Not Detectd) 03/15/20 03:36 Vital Signs Temp 97.6 F 03/24/20 05:45 Pulse 134 H 03/24/20 05:45 Resp 18 03/24/20 05:45 BP 141/102 03/24/20 05:45 Pulse Ox 98 03/24/20 05:45 Patient Condition at Discharge: Stable Plan - Discharge Summary Discharge Rx Participant: No New Discharge Prescriptions: New LORazepam [Ativan] 0.5 mg PO HS PRN 14 Days tab PRN Reason: Anxiety carvediloL [Coreg] 6.25 mg PO BID-W/MEALS 30 Days tab Fluticasone Nasal Ragley [Flonase Nasal Ragley] 2 spray EA NOSTRIL DAILY PRN #1 spr PRN Reason: Allergy Symptoms glipiZIDE [Glucotrol] 10 mg PO AC-BID 30 Days tab Nicotine 7Mg/24Hr Patch [Habitrol] 1 patch TRANSDERM DAILY 30 Days patch Terbinafine 1% Cream [LamISIL] 1 applic TOPICAL BID #1 applic Fenofibrate [Lofibra] 160 mg PO DAILY 30 Days tab Melatonin 6 mg PO HS 30 Days tablet Prazosin [Minipress] 2 mg PO HS 30 Days cap Gabapentin [Neurontin] 800 mg PO TID 30 Days cap Hydrocortisone Pr Cream [Proctosol-Hc 2.5%] 1 applic RECTAL BID #1 applic Pantoprazole [Protonix] 40 mg PO HS 30 Days tablet. Sennosides-Docusate Sodium [Senokot-S] 1 each PO BID 30 Days tab Acetaminophen Tab [Tylenol] 650 mg PO Q8HR PRN 14 Days tab PRN Reason: Fever And/ Or Pain OLANZapine [ZyPREXA] 1.25 mg PO DAILY 30 Days tab OLANZapine [ZyPREXA] 7.5 mg PO HS 30 Days tablet Continue Disulfiram [Antabuse] 500 mg PO DAILY busPIRone HCL [Buspar] 30 mg PO BID 30 Days tab DULoxetine HCL [Cymbalta] 60 mg PO BID 30 Days cap Changed Pravastatin Sodium [Pravachol] 40 mg PO HS 30 Days tab Discontinued Pantoprazole [Protonix] 40 mg PO HS 30 Days tablet. Cyclobenzaprine [Flexeril] 10 mg PO TID PRN 30 Days tab PRN Reason: Muscle Spasm Fluticasone Nasal Ragley [Flonase Nasal Ragley] 2 spr EA NOSTRIL DAILY PRN #1 spray PRN Reason: Allergy Symptoms QUEtiapine [SEROquel] 200 mg PO HS 30 Days tab Gabapentin [Neurontin] 800 mg PO TID 30 Days #180 cap diazePAM [Valium] 5 mg PO Q8H PRN PRN Reason: Anxiety gemfibroziL [Lopid] 600 mg PO AC-BID Lisinopril [Zestril] 10 mg PO DAILY Carvedilol [Coreg] 6.25 mg PO BID Acetaminophen-Codeine 300-30mg [Tylenol w/codeine #3] 1 tab PO Q4-6H PRN PRN Reason: Pain No Action glipiZIDE XL [Glucotrol Xl] 2.5 mg PO DAILY metFORMIN HCL ER [Glucophage Xr] 500 mg PO DAILY Discharge Medication List Disulfiram [Antabuse] 500 mg PO DAILY 03/14/20 [History] glipiZIDE XL [Glucotrol Xl] 2.5 mg PO DAILY 03/14/20 [History] metFORMIN HCL ER [Glucophage Xr] 500 mg PO DAILY 03/14/20 [History] Acetaminophen Tab [Tylenol] 650 mg PO Q8HR PRN 14 Days tab 03/24/20 [Rx] DULoxetine HCL [Cymbalta] 60 mg PO BID 30 Days cap 03/24/20 [Rx] Fenofibrate [Lofibra] 160 mg PO DAILY 30 Days tab 03/24/20 [Rx] Fluticasone Nasal Ragley [Flonase Nasal Ragley] 2 spray EA NOSTRIL DAILY PRN #1 spr 03/24/20 [Rx] Gabapentin [Neurontin] 800 mg PO TID 30 Days cap 03/24/20 [Rx] Hydrocortisone Pr Cream [Proctosol-Hc 2.5%] 1 applic RECTAL BID #1 applic 03/24/20 [Rx] LORazepam [Ativan] 0.5 mg PO HS PRN 14 Days tab 03/24/20 [Rx] Melatonin 6 mg PO HS 30 Days tablet 03/24/20 [Rx] Nicotine 7Mg/24Hr Patch [Habitrol] 1 patch TRANSDERM DAILY 30 Days patch 03/24/20 [Rx] OLANZapine [ZyPREXA] 1.25 mg PO DAILY 30 Days tab 03/24/20 [Rx] OLANZapine [ZyPREXA] 7.5 mg PO HS 30 Days tablet 03/24/20 [Rx] Pantoprazole [Protonix] 40 mg PO HS 30 Days tablet.dr 03/24/20 [Rx] Pravastatin Sodium [Pravachol] 40 mg PO HS 30 Days tab 03/24/20 [Rx] Prazosin [Minipress] 2 mg PO HS 30 Days cap 03/24/20 [Rx] Sennosides-Docusate Sodium [Senokot-S] 1 each PO BID 30 Days tab 03/24/20 [Rx] Terbinafine 1% Cream [LamISIL] 1 applic TOPICAL BID #1 applic 03/24/20 [Rx] busPIRone HCL [Buspar] 30 mg PO BID 30 Days tab 03/24/20 [Rx] carvediloL [Coreg] 6.25 mg PO BID-W/MEALS 30 Days tab 03/24/20 [Rx] glipiZIDE [Glucotrol] 10 mg PO AC-BID 30 Days tab 03/24/20 [Rx] Follow up Appointment(s)/Referral(s): intake,intake [Other] - 03/24/20 1:00 pm Marlen Mobley MD [Primary Care Provider] - 1-2 days Activity/Diet/Wound Care/Special Instructions: Activity and diet as tolerated. Avoid the use of street drugs and alcohol. Take all medications as prescribed. When you are in need of refills on your medications please contact your medical provider and/or outpatient psychiatrist to have this done. Please go to scheduled outpatient appointment for aftercare treatment. If symptoms return or become worse, call the crisis line at and/or go to the nearest emergency room for evaluation. Discharge Disposition: OTHER INSTITUTION NOT DEFINED
[2020-03-24 13:43] VITALS: BMI 28.6
== END 2020-03-24 12:04 | disposition home or self-care (01) | DRG 885 ==
LOC: EC 10:08 → 3MHU 03-15 17:36
PROVIDERS: ADMIT Psychiatry & Neurology Psychiatry; ATTEND Psychiatry & Neurology Psychiatry
DX: F39 Unspecified mood [affective] disorder (principal); J98.11 Atelectasis; E11.9 Type 2 diabetes mellitus without complications; I95.9 Hypotension, unspecified; F18.10 Inhalant abuse, uncomplicated; F31.9 Bipolar disorder, unspecified; G47.00 Insomnia, unspecified; F41.0 Panic disorder [episodic paroxysmal anxiety]; Z20.828 Contact with and (suspected) exposure to other viral communicable diseases; I10 Essential (primary) hypertension; G47.33 Obstructive sleep apnea (adult) (pediatric); N28.9 Disorder of kidney and ureter, unspecified; K64.9 Unspecified hemorrhoids; S80.822A Blister (nonthermal), left lower leg, initial encounter; F17.210 Nicotine dependence, cigarettes, uncomplicated; Z71.6 Tobacco abuse counseling; Z79.84 Long term (current) use of oral hypoglycemic drugs; Z79.899 Other long term (current) drug therapy; Z86.19 Personal history of other infectious and parasitic diseases; Z96.643 Presence of artificial hip joint, bilateral; Z88.8 Allergy status to other drugs, medicaments and biological substances; Z81.8 Family history of other mental and behavioral disorders
CPT/HCPCS: 36415; 71046; 80048; 80053; 80061; 80306; 82075; 83036; 84132; 85025; 87635; 96360; 96361; 99285

== ENCOUNTER 2020-04-18 14:26 | Emergency (ER) | payer MEDICARE, OTHER ==
[2020-04-18 15:20] LABS: Glucose,Whole Blood 403 mg/dL (75-99)
[2020-04-18] MEDS ORDERED: SODIUM CHLORIDE 0.9% 2,000 ML IV ONE (15:25)
[2020-04-18 15:47] LABS: Basophils # (A) 0.1 k/uL (0-0.2); Basophils % (A) 1 %; Eosinophils # (A) 0.3 k/uL (0-0.7); Eosinophils % (A) 3 %; HCT 33.8 % (39.0-53.0); HGB 11.4 gm/dL (13.0-17.5); Lymphocytes # (A) 1.8 k/uL (1.0-4.8); Lymphocytes % (A) 21 %; MCH 31.2 pg (25.0-35.0); MCHC 33.8 g/dL (31.0-37.0); MCV 92.5 fL (80.0-100.0); Mean Platelet Volume 7.4; Monocytes # (A) 0.3 k/uL (0-1.0); Monocytes % (A) 4 %; Neutrophils # (A) 5.8 k/uL (1.3-7.7); Neutrophils % (A) 67 %; Platelet Count 306 k/uL (150-450); RBC 3.65 m/uL (4.30-5.90); RDW 13.8 % (11.5-15.5); WBC 8.6 k/uL (3.8-10.6)
[2020-04-18] MEDS ORDERED: LORazepam 2 MG/ML INJ IV STA (15:48)
[2020-04-18 15:51] LABS: Appearance,Urine Clear (Clear); Bilirubin,Urine Negative (Negative); Blood,Urine Negative (Negative); Color,Urine Colorless; Glucose,Urine (UA) 4+ (Negative); Ketones,Urine Negative (Negative); Leukocyte Esterase,Urine Negative (Negative); Nitrite,Urine Negative (Negative); Protein,Urine Negative (Negative); Specific Gravity,Urine 1.013 (1.001-1.035); Urobilinogen,Urine <2.0 mg/dL (<2.0)
[2020-04-18 15:55] LABS: ALT 16 U/L (4-49); AST 20 U/L (17-59); African American GFR (CKD) 88 (>60 ml/min/1.73 sqM); Alkaline Phosphatase 100 U/L (38-126); Anion Gap 12 mmol/L; Blood Urea Nitrogen 15 mg/dL (9-20); Calcium 9.1 mg/dL (8.4-10.2); Carbon Dioxide 21 mmol/L (22-30); Chloride 103 mmol/L (98-107); Glucose 408 mg/dL (74-99); Lipase 136 U/L (23-300); Magnesium 1.8 mg/dL (1.6-2.3); Non-African American GFR(CKD) 76 (>60 ml/min/1.73 sqM); Potassium 4.4 mmol/L (3.5-5.1); Sodium 136 mmol/L (137-145); Total Bilirubin 0.3 mg/dL (0.2-1.3)
[2020-04-18] MEDS ORDERED: INSULIN ASPART (NovoLOG) 100 UNIT/ML VIAL SQ ONE (15:57)
--- NOTE | 2020-04-18 16:02 | ED ---
General Adult HPI - General Chief complaint: Recheck/Abnormal Lab/Rx Stated complaint: High Blood Sugar Time Seen by Provider: 04/18/20 15:03 Source: patient, RN notes reviewed Mode of arrival: ambulatory Limitations: no limitations - History of Present Illness Initial comments: 55-year-old male presents emergency Department with chief complaint of hype rglycemia. Patient states blood sugar has been recently elevated. Patient denies any nausea vomiting diarrhea constipation. Patient states that she is currently homeless and states he was unable to afford his insulin in which he was discharged from with from [facility]. Patient states that he used to be on glipizide and metformin states his blood sugar was always well-controlled he is unsure why they switch his medications. Patient denies any chest pain or shortness of breath. Patient does admit that he is anxious does admit to occasional alcohol use denies any recent drug use he states that he is refrain since being discharged from rehab. Patient denies any other significant compla ints of fevers or chills. - Related Data Previous Rx's Medication Instructions Recorded Acetaminophen Tab [Tylenol] 650 mg PO Q8HR PRN 14 Days tab 03/24/20 Alcohol Antiseptic Pads [Alcohol 1 each TP AC-TID #90 med..pad 03/24/20 Swabs] Blood Sugar Diagnostic [Test 1 each MC AC-TID #90 strip 03/24/20 Strips] DULoxetine HCL [Cymbalta] 60 mg PO BID 30 Days cap 03/24/20 Fenofibrate [Lofibra] 160 mg PO DAILY 30 Days tab 03/24/20 Fluticasone Nasal [place] [Flonase 2 spray EA NOSTRIL DAILY PRN #1 spr 03/24/20 Nasal [place]] Gabapentin [Neurontin] 800 mg PO TID 30 Days cap 03/24/20 Hydrocortisone Pr Cream 1 applic RECTAL BID #1 applic 03/24/20 [Proctosol-Hc 2.5%] Insulin Aspart [NovoLOG] 5 units SQ TID-W/MEALS #5 cart 03/24/20 Insulin Detemir (Levemir) [Levemir] 15 unit SQ HS #5 syr 03/24/20 LORazepam [Ativan] 0.5 mg PO HS PRN 14 Days tab 03/24/20 Lancets 1 each MC AC-TID #90 each 03/24/20 Melatonin 6 mg PO HS 30 Days tablet 03/24/20 [place], Insulin Disposable [Bd 1 needle SQ DIRECTED #120 needle 03/24/20 Ultra-Fine Pen Needle 4mm 32g] Nicotine 7Mg/24Hr Patch [Habitrol] 1 patch TRANSDERM DAILY 30 Days 03/24/20 patch OLANZapine [ZyPREXA] 1.25 mg PO DAILY 30 Days tab 03/24/20 OLANZapine [ZyPREXA] 7.5 mg PO HS 30 Days tablet 03/24/20 Pantoprazole [Protonix] 40 mg PO HS 30 Days tablet. 03/24/20 Pravastatin Sodium [Pravachol] 40 mg PO HS 30 Days tab 03/24/20 Prazosin [Minipress] 2 mg PO HS 30 Days cap 03/24/20 Sennosides-Docusate Sodium 1 each PO BID 30 Days tab 03/24/20 [Senokot-S] Terbinafine 1% Cream [LamISIL] 1 applic TOPICAL BID #1 applic 03/24/20 busPIRone HCL [Buspar] 30 mg PO BID 30 Days tab 03/24/20 carvediloL [Coreg] 6.25 mg PO BID-W/MEALS 30 Days tab 03/24/20 glipiZIDE [Glucotrol] 10 mg PO AC-BID 30 Days tab 03/24/20 glipiZIDE [Glucotrol] 20 mg PO AC-BID #60 tablet 04/18/20 metFORMIN HCL 1,000 mg PO BID #60 tab 04/18/20 Allergies Allergy/AdvReac Type Severity Reaction Status Date / Time thimerosal Allergy Rash/Hives Verified 04/18/20 14:40 Review of Systems ROS Statement: Those systems with pertinent positive or pertinent negative responses have been documented in the HPI. ROS Other: All systems not noted in ROS Statement are negative. Past Medical History Past Medical History: Diabetes Mellitus, Hypertension, Sleep Apnea/CPAP/BIPAP Additional Past Medical History / Comment(s): hx bilateral hip 2017 replacements History of Any Multi-Drug Resistant Organisms: None Reported Past Surgical History: Joint Replacement Additional Past Surgical History / Comment(s): Both hips replaced, right heal shatered Past Psychological History: Anxiety, Bipolar, Depression, Schizoaffective Disorder Smoking Status: Former smoker Past Alcohol Use History: None Reported Past Drug Use History: None Reported - Past Family History family Additional Family Medical History / Comment(s): anxiety General Exam Limitations: no limitations General appearance: alert, in no apparent distress Head exam: Present: atraumatic, normocephalic, normal inspection Eye exam: Present: normal appearance, PERRL, EOMI. Absent: scleral icterus, conjunctival injection, periorbital swelling ENT exam: Present: normal exam, normal oropharynx, mucous membranes moist Neck exam: Present: normal inspection, full ROM. Absent: tenderness, meningismus, lymphadenopathy Respiratory exam: Present: normal lung sounds bilaterally. Absent: respiratory distress, wheezes, rales, rhonchi, stridor Cardiovascular Exam: Present: normal rhythm, tachycardia, normal heart sounds. Absent: systolic murmur, diastolic murmur, rubs, gallop, clicks Neurological exam: Present: alert, oriented X3, CN II-XII intact, reflexes normal. Absent: motor sensory deficit Skin exam: Present: warm, dry, intact, normal color. Absent: rash Course Vital Signs 04/18/20 14:35 Temperature 97.9 F Pulse Rate 102 H Respiratory 18 Rate Blood Pressure 121/83 O2 Sat by Pulse 98 Oximetry Medical Decision Making - Medical Decision Making 55-year-old male presented for hyperglycemia. Patient was well hydrated, given insulin. Blood sugar has improved. Patient will be provided prescription for metformin and glipizide as he was prior taken as tolerated well and blood sugar was primary control. Patient we discharged stable condition with close follow- up. - Lab Data Result diagrams: 04/18/20 15:28 04/18/20 15:28 Lab Results 04/18/20 04/18/20 04/18/20 Range/Units 15:09 15:28 15:28 WBC 8.6 (3.8-10.6) k/uL RBC 3.65 L (4.30-5.90) m/uL Hgb 11.4 L (13.0-17.5) gm/dL Hct 33.8 L (39.0-53.0) % MCV 92.5 (80.0-100.0) fL MCH 31.2 (25.0-35.0) pg MCHC 33.8 (31.0-37.0) g/dL RDW 13.8 (11.5-15.5) % Plt Count 306 (150-450) k/uL MPV 7.4 Neutrophils % 67 % Lymphocytes % 21 % Monocytes % 4 % Eosinophils % 3 % Basophils % 1 % Neutrophils # 5.8 (1.3-7.7) k/uL Lymphocytes # 1.8 (1.0-4.8) k/uL Monocytes # 0.3 (0-1.0) k/uL Eosinophils # 0.3 (0-0.7) k/uL Basophils # 0.1 (0-0.2) k/uL Sodium (137-145) mmol/L Potassium (3.5-5.1) mmol/L Chloride (98-107) mmol/L Carbon Dioxide (22-30) mmol/L Anion Gap mmol/L BUN (9-20) mg/dL Creatinine (0.66-1.25) mg/dL Est GFR (CKD-EPI)AfAm (>60 ml/min/1.73 sqM) Est GFR (CKD-EPI)NonAf (>60 ml/min/1.73 sqM) Glucose (74-99) mg/dL POC Glucose (mg/dL) 403 H (75-99) mg/dL POC Glu [employer] Supervisor ID Jackson Montero Plasma Lactic Acid Ender (0.7-2.0) mmol/L Calcium (8.4-10.2) mg/dL Magnesium (1.6-2.3) mg/dL Total Bilirubin (0.2-1.3) mg/dL AST (17-59) U/L ALT (4-49) U/L Alkaline Phosphatase (38-126) U/L Total Protein (6.3-8.2) g/dL Albumin (3.5-5.0) g/dL Lipase (23-300) U/L Urine Color Colorless Urine Appearance Clear (Clear) Urine pH 6.0 (5.0-8.0) Ur Specific [place] 1.013 (1.001-1.035) Urine Protein Negative (Negative) Urine Glucose (UA) 4+ H (Negative) Urine Ketones Negative (Negative) Urine Blood Negative (Negative) Urine Nitrite Negative (Negative) Urine Bilirubin Negative (Negative) Urine Urobilinogen <2.0 (<2.0) mg/dL Ur Leukocyte Esterase Negative (Negative) Acetone, Qual (Negative) 04/18/20 04/18/20 04/18/20 Range/Units 15:28 15:28 16:41 WBC (3.8-10.6) k/uL RBC (4.30-5.90) m/uL Hgb (13.0-17.5) gm/dL Hct (39.0-53.0) % MCV (80.0-100.0) fL MCH (25.0-35.0) pg MCHC (31.0-37.0) g/dL RDW (11.5-15.5) % Plt Count (150-450) k/uL MPV Neutrophils % % Lymphocytes % % Monocytes % % Eosinophils % % Basophils % % Neutrophils # (1.3-7.7) k/uL Lymphocytes # (1.0-4.8) k/uL Monocytes # (0-1.0) k/uL Eosinophils # (0-0.7) k/uL Basophils # (0-0.2) k/uL Sodium 136 L (137-145) mmol/L Potassium 4.4 (3.5-5.1) mmol/L Chloride 103 (98-107) mmol/L Carbon Dioxide 21 L (22-30) mmol/L Anion Gap 12 mmol/L BUN 15 (9-20) mg/dL Creatinine 1.08 (0.66-1.25) mg/dL Est GFR (CKD-EPI)AfAm 88 (>60 ml/min/1.73 sqM) Est GFR (CKD-EPI)NonAf 76 (>60 ml/min/1.73 sqM) Glucose 408 H (74-99) mg/dL POC Glucose (mg/dL) 376 H (75-99) mg/dL POC Glu [employer] Supervisor ID Rossi Ayon Plasma Lactic Acid Ender 3.0 H* (0.7-2.0) mmol/L Calcium 9.1 (8.4-10.2) mg/dL Magnesium 1.8 (1.6-2.3) mg/dL Total Bilirubin 0.3 (0.2-1.3) mg/dL AST 20 (17-59) U/L ALT 16 (4-49) U/L Alkaline Phosphatase 100 (38-126) U/L Total Protein 7.0 (6.3-8.2) g/dL Albumin 4.0 (3.5-5.0) g/dL Lipase 136 (23-300) U/L Urine Color Urine Appearance (Clear) Urine pH (5.0-8.0) Ur Specific [place] (1.001-1.035) Urine Protein (Negative) Urine Glucose (UA) (Negative) Urine Ketones (Negative) Urine Blood (Negative) Urine Nitrite (Negative) Urine Bilirubin (Negative) Urine Urobilinogen (<2.0) mg/dL Ur Leukocyte Esterase (Negative) Acetone, Qual Negative (Negative) 04/18/20 Range/Units 17:41 WBC (3.8-10.6) k/uL RBC (4.30-5.90) m/uL Hgb (13.0-17.5) gm/dL Hct (39.0-53.0) % MCV (80.0-100.0) fL MCH (25.0-35.0) pg MCHC (31.0-37.0) g/dL RDW (11.5-15.5) % Plt Count (150-450) k/uL MPV Neutrophils % % Lymphocytes % % Monocytes % % Eosinophils % % Basophils % % Neutrophils # (1.3-7.7) k/uL Lymphocytes # (1.0-4.8) k/uL Monocytes # (0-1.0) k/uL Eosinophils # (0-0.7) k/uL Basophils # (0-0.2) k/uL Sodium (137-145) mmol/L Potassium (3.5-5.1) mmol/L Chloride (98-107) mmol/L Carbon Dioxide (22-30) mmol/L Anion Gap mmol/L BUN (9-20) mg/dL Creatinine (0.66-1.25) mg/dL Est GFR (CKD-EPI)AfAm (>60 ml/min/1.73 sqM) Est GFR (CKD-EPI)NonAf (>60 ml/min/1.73 sqM) Glucose (74-99) mg/dL POC Glucose (mg/dL) 263 H (75-99) mg/dL POC Glu [employer] Supervisor ID Rossi Ayon Plasma Lactic Acid Ender (0.7-2.0) mmol/L Calcium (8.4-10.2) mg/dL Magnesium (1.6-2.3) mg/dL Total Bilirubin (0.2-1.3) mg/dL AST (17-59) U/L ALT (4-49) U/L Alkaline Phosphatase (38-126) U/L Total Protein (6.3-8.2) g/dL Albumin (3.5-5.0) g/dL Lipase (23-300) U/L Urine Color Urine Appearance (Clear) Urine pH (5.0-8.0) Ur Specific [place] (1.001-1.035) Urine Protein (Negative) Urine Glucose (UA) (Negative) Urine Ketones (Negative) Urine Blood (Negative) Urine Nitrite (Negative) Urine Bilirubin (Negative) Urine Urobilinogen (<2.0) mg/dL Ur Leukocyte Esterase (Negative) Acetone, Qual (Negative) Disposition Clinical Impression: Hyperglycemia Disposition: HOME SELF-CARE Condition: Stable Instructions (If sedation given, give patient instructions): Diabetic Hyperglycemia (ED) Additional Instructions: Please return to the Emergency Department if symptoms worsen or any other concerns. Prescriptions: glipiZIDE [Glucotrol] 20 mg PO AC-BID #60 tablet metFORMIN HCL 1,000 mg PO BID #60 tab Is patient prescribed a controlled substance at d/c from ED?: No Referrals: Marlen Mobley MD [Primary Care Provider] - 1-2 days Time of Disposition: 18:06
[2020-04-18 16:44] LABS: Glucose,Whole Blood 376 mg/dL (75-99)
[2020-04-18] MEDS ORDERED: INSULIN REGULAR 100 UNIT/ML VIAL IV ONE (17:10)
[2020-04-18 17:43] LABS: Glucose,Whole Blood 263 mg/dL (75-99)
[2020-04-18 18:22] VITALS: BP 138/78; PULSE 79; RESP 16; TEMP 97.8
[2020-04-18 18:22] LABS: Glucose,Whole Blood 135 mg/dL (75-99)
== END 2020-04-18 18:21 | disposition home or self-care (01) ==
LOC: SUPCPDRO 14:26 → EC 14:26
DX: R73.9 Hyperglycemia, unspecified (principal); G47.30 Sleep apnea, unspecified; Z88.3 Allergy status to other anti-infective agents; Z59.0 Homelessness; Z99.89 Dependence on other enabling machines and devices; Z96.643 Presence of artificial hip joint, bilateral; Z87.891 Personal history of nicotine dependence
CPT/HCPCS: 36415; 93005; 80053; 82009; 83605; 83690; 83735; 85025; 81003; 99283; 96374; 96375; 96361 ×2; 96372; J2060

== ENCOUNTER 2020-06-17 14:45 | Observation (INO) | payer MEDICARE, OTHER ==
[2020-06-17] MEDS ORDERED: NITROGLYCERIN OINT 1 INCH/GM PACKET TOPICAL STA (15:13)
[2020-06-17] MEDS ORDERED: LORazepam 2 MG/ML INJ IV PRN (15:14)
[2020-06-17] MEDS ORDERED: THIAMINE 100 MG/ML 2 ML VIAL IM STA (15:14)
[2020-06-17] MEDS: LORazepam 2 MG/ML INJ IV PRN ×3 (15:31→23:07)
--- NOTE | 2020-06-17 15:53 | ED ---
General Adult HPI - General Chief complaint: Chest Pain Stated complaint: Cardiac Issues Time Seen by Provider: 06/17/20 14:50 Source: patient, EMS, RN notes reviewed, old records reviewed Mode of arrival: EMS Limitations: no limitations - History of Present Illness Initial comments: this is a 55-year-old male who presents to the emergency department from [facility]. Patient was scheduled to have a cardiac cath tomorrow and he came in this morning with chest pain. Patient states he stopped drinking last night 8:00 this morning he woke up he was having chest pain secondary came to the emergency department. They did an EKG and cardiac enzymes and they were negative but they felt as though the patient needed to be further evaluated and since she was having a cardiac cath tomorrow they sent to our facility with a catheterization was done. Patient states currently he is chest pain-free denies any shortness of breath. Patient states he is quite a heavy drinker. He shouldn't denies any recent fever chills or cough. Patient denies abdominal pain patient denies any swelling to legs or calf tenderness. - Related Data Home Medications Medication Instructions Recorded Confirmed Aspirin [Adult Low Dose Aspirin EC] 81 mg PO QAM 06/15/20 06/15/20 Cyclobenzaprine [Flexeril] 10 mg PO TID 06/15/20 06/15/20 Gemfibrozil [Lopid] 600 mg PO AC-BID 06/15/20 06/15/20 Hydrocortisone Pr Cream 1 applic RECTAL BID PRN 06/15/20 06/15/20 [Proctosol-Hc 2.5%] Melatonin 10 mg PO HS 06/15/20 06/15/20 OLANZapine [ZyPREXA] 5 mg PO QAM 06/15/20 06/15/20 OLANZapine [ZyPREXA] 15 mg PO HS 06/15/20 06/15/20 lisinopriL 20 mg PO DAILY 06/15/20 06/15/20 oxyCODONE HCL/ACETAMINOPHEN 1 tab PO TID 06/15/20 06/15/20 [Percocet 7.5-325 mg] Previous Rx's Medication Instructions Recorded Acetaminophen Tab [Tylenol] 650 mg PO Q8HR PRN 14 Days tab 03/24/20 DULoxetine HCL [Cymbalta] 60 mg PO BID 30 Days cap 03/24/20 Fenofibrate [Lofibra] 160 mg PO DAILY 30 Days tab 03/24/20 Fluticasone Nasal [place] [Flonase 2 spray EA NOSTRIL DAILY PRN #1 spr 03/24/20 Nasal [place]] Gabapentin [Neurontin] 800 mg PO TID 30 Days cap 03/24/20 Pantoprazole [Protonix] 40 mg PO HS 30 Days tablet. 03/24/20 Pravastatin Sodium [Pravachol] 40 mg PO HS 30 Days tab 03/24/20 Prazosin [Minipress] 2 mg PO HS 30 Days cap 03/24/20 busPIRone HCL [Buspar] 30 mg PO BID 30 Days tab 03/24/20 carvediloL [Coreg] 6.25 mg PO BID-W/MEALS 30 Days tab 03/24/20 glipiZIDE [Glucotrol] 20 mg PO AC-BID #60 tablet 04/18/20 metFORMIN HCL 1,000 mg PO BID #60 tab 04/18/20 Allergies Allergy/AdvReac Type Severity Reaction Status Date / Time thimerosal Allergy Severe Rash/Hives/throat Verified 06/17/20 14:54 swelling neomycin Allergy Rash/Hives Verified 06/17/20 14:54 Review of Systems ROS Statement: Those systems with pertinent positive or pertinent negative responses have been documented in the HPI. ROS Other: All systems not noted in ROS Statement are negative. Past Medical History Past Medical History: Diabetes Mellitus, Hypertension, Sleep Apnea/CPAP/BIPAP Additional Past Medical History / Comment(s): hx bilateral hip 2017 replacements History of Any Multi-Drug Resistant Organisms: None Reported Past Surgical History: Joint Replacement Additional Past Surgical History / Comment(s): bilateral cataract removed, Both hips replaced, right heal shatered Past Psychological History: Anxiety, Bipolar, Depression, Schizoaffective Disorder Smoking Status: Current every day smoker Past Alcohol Use History: Abuse Past Drug Use History: None Reported - Past Family History family Additional Family Medical History / Comment(s): anxiety General Exam - General Exam Comments Initial Comments: GENERAL: Patient is well-developed and well-nourished. Patient is nontoxic and well- hydrated and is in mild distress. ENT: Neck is soft and supple. No significant lymphadenopathy is noted. Oropharynx is clear. Moist mucous membranes. Neck has full range of motion without eliciting any pain. EYES: The sclera were anicteric and conjunctiva were pink and moist. Extraocular movements were intact and pupils were equal round and reactive to light. Eyelids were unremarkable. PULMONARY: Unlabored respirations. Good breath sounds bilaterally. No audible rales rhonchi or wheezing was noted. CARDIOVASCULAR: There is a regular rate and rhythm without any murmurs gallops or rubs. ABDOMEN: Soft and nontender with normal bowel sounds. SKIN: Skin is clear with no lesions or rashes and otherwise unremarkable. NEUROLOGIC: Patient is alert and oriented x3. Cranial nerves II through XII are grossly intact. Motor and sensory are also intact. Normal speech, volume and content. Symmetrical smile. MUSCULOSKELETAL: Normal extremities with adequate strength and full range of motion. No lower extremity swelling or edema. No calf tenderness. LYMPHATICS: No significant lymphadenopathy is noted PSYCHIATRIC: Normal psychiatric evaluation. Limitations: no limitations Course Vital Signs 06/17/20 14:48 Temperature 99.8 F H Pulse Rate 94 Respiratory 18 Rate Blood Pressure 129/75 O2 Sat by Pulse 97 Oximetry Medical Decision Making - Medical Decision Making EKG shows normal sinus rhythm at 96 bpm MT interval is 140 QRS is 92 QT interval 352 QTC is [address] segment elevation or depression Patient is chest pain-free throughout his ED course. I spoke with Dr. Byrd she agreed to admit the patient admitted the patient wrote admitting orders. - Lab Data Lab Results 06/17/20 Range/Units 15:24 Troponin I <0.012 (0.000-0.034) ng/mL Disposition Clinical Impression: Chest pain, Alcohol withdrawal Disposition: ADMITTED IP TO THIS HOSP Referrals: Marlen Mobley MD [Primary Care Provider] - 1-2 days Time of Disposition: 15:55
[2020-06-17] MEDS ORDERED: NITROGLYCERIN SL TABS 0.4 MG TAB SUBLINGUAL PRN (15:55)
[2020-06-17] MEDS ORDERED: MELATONIN 3 MG TABLET PO PRN (16:16)
[2020-06-17] MEDS ORDERED: ONDANSETRON 4 MG/2 ML VIAL IVP PRN (16:16)
[2020-06-17] MEDS ORDERED: NALOXONE 0.4 MG/ML 1 ML VIAL IV PRN (16:16)
[2020-06-17] MEDS ORDERED: ACETAMINOPHEN TAB 325 MG TAB PO PRN (16:16)
--- NOTE | 2020-06-17 16:43 | P.HPIM ---
<Ajit Rudolph - Last Filed: 06/17/20 15:50> History of Present Illness H&P Date: 06/17/20 Chief Complaint: Chest pain History of presenting illness: Patient is a 55-year-old male with a past medical history of diabetes mellitus type 2, hypertension, EtOH use/abuse, anxiety, and recent Covid 19 virus infection in August,. Patient reports that since having Covid 19 virus infection he has been having problems with his heart and kidneys and has been undergoing extensive testing via his PCP and network and threat support specialist and recently failed his Stress Test and was scheduled for a cardiac cath on 06/18/[address] Morton. Patient states that since he was scheduled for his cardiac cath he was instructed that he had to stop drinking yesterday and binged from his typical 1 pint per day and drank a total of three 1/2 Pints of vodka with last drink at 8 PM. Pt states that today upon checking his blood pressure at home he noted it was elevated at 179/115 and became very anxious that it was so high and he then developed some chest tightness across his chest so he went straight to the ER. Patient was seen and fully evaluated at [facility] Emergency Department and transferred to [facility] to be admitted for continued close monitoring and further evaluation by cardiology. Upon assessment, patient reports chest pain is resolved and currently denies having any headache, lightheadedness, dizziness, changes in vision or hearing, palpitations, shortness of breath, abdominal pain, nausea, vomiting, or any swelling/pain/numbness/tingling/weakness in extremities. [facility] ED course: Patient was seen and fully evaluated in the emergency department resulting in transfer to our facility for admission for cardiac evaluation secondary to reports of chest pain and recently failed stress test. Labs: Troponin less than 0.012. CBC revealing mild leukocytosis with WBC count of 13.90, mild anemia with hemoglobin 10.3 and hematocrit 30.8, and thrombocytopenia with platelet count of 483. Liver profile normal findings. Lipase 25. Chest x-ray was negative for acute cardiopulmonary process. EKG prior to arrival revealed sinus tach at 115 bpm with no ischemic changes present. EKG upon arrival showing normal sinus rhythm and 99 bpm, no ischemic changes present. Assessment: Review of systems: Pertinent positives and negatives as discussed in HPI, a complete review of systems was performed and all other systems are negative. Physical exam: General: non toxic, no distress, appears at stated age Derm: warm, dry Head: atraumatic, normocephalic, symmetric Eyes: EOMI, no lid lag, anicteric sclera Mouth: no lip lesion, mucus membranes moist Cardiovascular: S1S2 reg, no murmur, positive posterior tibial pulse bilateral, Lungs: CTA bilateral, no rhonchi, no rales , no accessory muscle use Abdominal: soft, nontender to palpation, no guarding, no appreciable organ omegaly Ext: no gross muscle atrophy, no edema, no contractures Neuro: CN II-XI grossly intact, no focal neuro deficits Psych: Alert, oriented, appropriate affect Plan of care: Chest pain -Cardiology consult, patient scheduled for cardiac catheterization tomorrow with Dr. Morton. -Telemetry monitoring -Initial Troponin Negative < 0.012, trend troponins every 3 hours 2. -EKG prior to arrival revealed sinus tach at 115 bpm with no ischemic changes present. -EKG upon arrival showing normal sinus rhythm and 99 bpm, no ischemic changes present. -Continue daily carvedilol, pravastatin, aspirin, and Nitropaste. -Heparin for DVT prophylaxis -Chest pain currently resolved. -Heart healthy carb consistent diet and patient to be NPO at midnight for scheduled cardiac cath. EtOH withdrawal -CIWA protocol with symptom triggered medication management. -Fall precautions, seizure precautions, and aspiration precautions in place. Diabetes mellitus type 2 -Hold oral glycemic medications. Place patient on glycemic protocol with sliding scale. -Heart healthy carb consistent diet. Hypertension -Monitor vital signs and continue daily medication management. -Heart healthy carb consistent diet. Hyperlipidemia -Continue daily medication regimen with pravastatin. -Healthy carb consistent diet. The patient is placed in observation with an anticipated less than 2 midnight stay for evaluation of chest pain and EtOH withdrawal. CODE STATUS: Full code DVT prophylaxis: Heparin Discussed with: Patient Anticipated discharge date: tomorrow Anticipated discharge place: Home A total of 45 minutes was spent on the care of this complex patient more than 50% of the time was spent in counseling and care coordination. Past Medical History Past Medical History: Diabetes Mellitus, Hypertension, Sleep Apnea/CPAP/BIPAP Additional Past Medical History / Comment(s): hx bilateral hip 2017 replacements History of Any Multi-Drug Resistant Organisms: None Reported Past Surgical History: Joint Replacement Additional Past Surgical History / Comment(s): bilateral cataract removed, Both hips replaced, right heal shatered Past Psychological History: Anxiety, Bipolar, Depression, Schizoaffective Disorder Smoking Status: Current every day smoker Past Alcohol Use History: Abuse Past Drug Use History: None Reported - Past Family History family Additional Family Medical History / Comment(s): anxiety Medications and Allergies Home Medications Medication Instructions Recorded Confirmed Type Acetaminophen Tab [Tylenol] 650 mg PO Q8HR PRN 14 Days tab 03/24/20 06/17/20 Rx DULoxetine HCL [Cymbalta] 60 mg PO BID 30 Days cap 03/24/20 06/17/20 Rx Fenofibrate [Lofibra] 160 mg PO DAILY 30 Days tab 03/24/20 06/17/20 Rx Fluticasone Nasal [place] [Flonase 2 spray EA NOSTRIL DAILY PRN #1 spr 03/24/20 06/17/20 Rx Nasal [place]] Gabapentin [Neurontin] 800 mg PO TID 30 Days cap 03/24/20 06/17/20 Rx Pantoprazole [Protonix] 40 mg PO HS 30 Days tablet.dr 03/24/20 06/17/20 Rx Pravastatin Sodium [Pravachol] 40 mg PO HS 30 Days tab 03/24/20 06/17/20 Rx Prazosin [Minipress] 2 mg PO HS 30 Days cap 03/24/20 06/17/20 Rx busPIRone HCL [Buspar] 30 mg PO BID 30 Days tab 03/24/20 06/17/20 Rx carvediloL [Coreg] 6.25 mg PO BID-W/MEALS 30 Days tab 03/24/20 06/17/20 Rx glipiZIDE [Glucotrol] 20 mg PO AC-BID #60 tablet 04/18/20 06/17/20 Rx metFORMIN HCL 1,000 mg PO BID #60 tab 04/18/20 06/17/20 Rx Cyclobenzaprine [Flexeril] 10 mg PO TID PRN 06/15/20 06/17/20 History Gemfibrozil [Lopid] 600 mg PO AC-BID 06/15/20 06/17/20 History OLANZapine [ZyPREXA] 5 mg PO QAM 06/15/20 06/17/20 History lisinopriL 20 mg PO DAILY 06/15/20 06/17/20 History oxyCODONE HCL/ACETAMINOPHEN 1 tab PO TID PRN 06/15/20 06/17/20 History [Percocet 7.5-325 mg] Clotrimazole Cream [Lotrimin Cream] 1 applic TOPICAL DAILY 06/17/20 06/17/20 History Ergocalciferol (Vitamin D2) 1,250 mcg PO RODRÍGUEZ 06/17/20 06/17/20 History [Drisdol (50,000 Iu)] Melatonin 6 mg PO HS 06/17/20 06/17/20 History OLANZapine [ZyPREXA] 10 mg PO HS 06/17/20 06/17/20 History Sennosides [Senna] 8.6 mg PO BID PRN 06/17/20 06/17/20 History Allergies Allergy/AdvReac Type Severity Reaction Status Date / Time thimerosal Allergy Severe Rash/Hives/throat Verified 06/17/20 17:09 swelling neomycin Allergy Rash/Hives Verified 06/17/20 17:09 Physical Exam Vitals: Vital Signs Temp Pulse Resp BP Pulse Ox 06/17/20 14:48 99.8 F H 94 18 129/75 97 Intake and Output 06/17/20 06/17/20 06/17/20 06:59 14:59 22:59 Other: Weight 86.183 kg <Natalie Byrd - Last Filed: 06/17/20 18:42> History of Present Illness Patient seen and examined independently. Patient was also seen by Ajit Rudolph NP and case was discussed. I am in agreement with subjective, physical exam, assessment and plan as written above and amended below. Patient seen and examined at bedside. He is not longer having chest pain, he continues to have dyspnea on exertion which has been going on for quite some time per patient. + mild LINK, + tremors, No fidgeting, no nausea, no vomiting. General: non toxic, no distress, appears at stated age Derm: warm, dry Head: atraumatic, normocephalic, symmetric Eyes: EOMI, no lid lag, anicteric sclera Mouth: no lip lesion, mucus membranes moist Cardiovascular: S1S2 reg, no murmur, positive posterior tibial pulse bilateral, Lungs: Decreased bs bilateral, no rhonchi, no rales , no accessory muscle use Abdominal: soft, nontender to palpation, no guarding, no appreciable organomegaly Chest pain with abnormal stress test as outpatient - trop negative, ekg non ischemic, likely cath in AM. Discussed with nursing to alert cath lab nurse in AM that patient is now in patient. Physical Exam Osteopathic Statement: *. No significant issues noted on an osteopathic structural exam other than those noted in the History and Physical/Consult. Vitals: Vital Signs Temp Pulse Pulse Resp BP BP Pulse Ox 06/17/20 17:58 98.1 F 106 H 18 103/71 98 06/17/20 16:58 98.4 F 104 H 20 124/71 98 06/17/20 14:48 99.8 F H 94 18 129/75 97 Intake and Output 06/17/20 06/17/20 06/17/20 06:59 14:59 22:59 Other: # Voids 1 Weight 86.183 kg 86.183 kg Results Labs: Abnormal Lab Results - Last 24 Hours (Table) 06/17/20 Range/Units 17:50 POC Glucose (mg/dL) 205 H (75-99) mg/dL
[2020-06-17] MEDS: NICOTINE 14MG/24HR PATCH TRANSDERM SCH (17:51)
[2020-06-17 17:52] LABS: Glucose,Whole Blood 205 mg/dL (75-99)
[2020-06-17] MEDS: NITROGLYCERIN OINT 1 INCH/GM PACKET TOPICAL SCH ×2 (17:52→23:09)
[2020-06-17] MEDS: carvediloL 6.25 MG TAB PO SCH (17:58)
[2020-06-17] MEDS: THIAMINE 100 MG TAB PO SCH (17:59)
[2020-06-17] MEDS: INSULIN ASPART (NovoLOG) 100 UNIT/ML VIAL SQ SCH ×2 (17:59→20:37)
[2020-06-17] MEDS ORDERED: oxyCODONE-APAP 7.5-325MG 1 EACH TAB PO PRN (18:08)
[2020-06-17 20:18] LABS: Glucose,Whole Blood 185 mg/dL (75-99)
[2020-06-17] MEDS: busPIRone HCl 10 MG TAB PO SCH (20:36)
[2020-06-17] MEDS: DULoxetine HCL 60 MG CAPSULE.DR PO SCH (20:36)
[2020-06-17] MEDS: GABAPENTIN 400 MG CAP PO SCH (20:37)
[2020-06-17] MEDS ORDERED: PRAZOSIN 1 MG CAP PO SCH (21:00)
[2020-06-17] MEDS ORDERED: MELATONIN 3 MG TABLET PO SCH (21:00)
[2020-06-17] MEDS ORDERED: OLANZapine 10 MG TAB PO SCH (21:00)
[2020-06-17] MEDS ORDERED: PRAVASTATIN SODIUM 40 MG TAB PO SCH (21:00)
[2020-06-17] MEDS ORDERED: PANTOPRAZOLE 40 MG TABLET PO SCH (21:00)
[2020-06-17] MEDS: SODIUM CHLORIDE 0.9% 1,000 ML IV SCH (22:01)
[2020-06-17] MEDS: HEPARIN SODIUM,PORCINE 5,000 UNIT/ML 1 ML VIAL SQ SCH (23:06)
[2020-06-18] MEDS: SODIUM CHLORIDE 0.9% 1,000 ML IV SCH ×2 (02:21→13:27)
[2020-06-18 02:51] VITALS: TEMP 97.5
[2020-06-18] MEDS: LORazepam 2 MG/ML INJ IV PRN ×3 (04:05→10:36)
[2020-06-18] MEDS: NITROGLYCERIN OINT 1 INCH/GM PACKET TOPICAL SCH (05:13)
[2020-06-18 06:19] LABS: HCT 32.4 % (39.0-53.0); HGB 10.5 gm/dL (13.0-17.5); MCH 30.2 pg (25.0-35.0); MCHC 32.3 g/dL (31.0-37.0); MCV 93.3 fL (80.0-100.0); Mean Platelet Volume 6.9; Platelet Count 386 k/uL (150-450); RBC 3.48 m/uL (4.30-5.90); RDW 15.7 % (11.5-15.5); WBC 5.7 k/uL (3.8-10.6)
[2020-06-18] MEDS ORDERED: GEMFIBROZIL 600 MG PO SCH (07:30)
[2020-06-18] MEDS ORDERED: ASPIRIN 325 MG TAB PO STA (08:03)
[2020-06-18] MEDS ORDERED: ALPRAZolam 0.5 MG TAB PO PRN (08:03)
[2020-06-18] MEDS ORDERED: ATORVASTATIN 80 MG TAB PO STA (08:03)
[2020-06-18] MEDS ORDERED: SODIUM CHLORIDE 0.9% 1,000 ML in EMPTY BAG 1 BAG IV ONE (08:03)
[2020-06-18] MEDS ORDERED: ALPRAZolam 0.25 MG TAB PO PRN (08:03)
[2020-06-18] MEDS ORDERED: NITROGLYCERIN SL TABS 0.4 MG TAB SUBLINGUAL PRN (08:03)
[2020-06-18 08:06] LABS: Glucose,Whole Blood 184 mg/dL (75-99)
[2020-06-18] MEDS: INSULIN ASPART (NovoLOG) 100 UNIT/ML VIAL SQ SCH ×2 (08:12→13:19)
[2020-06-18] MEDS: busPIRone HCl 10 MG TAB PO SCH (08:24)
[2020-06-18] MEDS: carvediloL 6.25 MG TAB PO SCH (08:24)
[2020-06-18] MEDS: GABAPENTIN 400 MG CAP PO SCH (08:24)
[2020-06-18] MEDS: DULoxetine HCL 60 MG CAPSULE.DR PO SCH (08:25)
[2020-06-18] MEDS: THIAMINE 100 MG TAB PO SCH (08:25)
[2020-06-18] MEDS: HEPARIN SODIUM,PORCINE 5,000 UNIT/ML 1 ML VIAL SQ SCH (08:26)
[2020-06-18] MEDS ORDERED: LIDOCAINE 1% INJ 10MG/ML (20 ML MDV) ONE (08:52)
[2020-06-18] MEDS ORDERED: VERAPAMIL 2.5 MG/ML 2 ML AMP ONE (08:54)
[2020-06-18] MEDS ORDERED: fentaNYL (PF) 50 MCG/ML 2 ML AMP ONE (08:54)
[2020-06-18] MEDS ORDERED: ASPIRIN 81 MG PO SCH (09:00)
[2020-06-18] MEDS ORDERED: ASPIRIN 325 MG TAB PO SCH (09:00)
[2020-06-18] MEDS ORDERED: FENOFIBRATE 160 MG TAB PO SCH (09:00)
[2020-06-18] MEDS ORDERED: OLANZapine 5 MG TAB PO SCH (09:00)
[2020-06-18] MEDS ORDERED: lisinopriL 20 MG TAB PO SCH (09:00)
[2020-06-18] MEDS ORDERED: fentaNYL (PF) 50 MCG/ML 2 ML AMP IV ONE (09:33)
[2020-06-18] MEDS ORDERED: IV FLUID CONTINUATION 800 ML IV ONE (09:34)
[2020-06-18] MEDS ORDERED: LIDOCAINE 1% INJ 10MG/ML (20 ML MDV) SQ ONE (09:34)
[2020-06-18] MEDS ORDERED: MIDAZOLAM 2 MG/2 ML VIAL IV ONE (09:34)
[2020-06-18] MEDS ORDERED: VERAPAMIL SYRINGE (5 MG/10 ML) INTRAARTER ONE (09:40)
[2020-06-18] MEDS ORDERED: IOPAMIDOL-370 125ML BTL INJ ONE (09:49)
[2020-06-18 10:07] VITALS: RESP 16
[2020-06-18] MEDS ORDERED: RX INFO: IV CONTRAST WAS GIVEN 1 EACH MISC MISCELLANE PRN (10:11)
[2020-06-18] MEDS ORDERED: SODIUM CHLORIDE 0.9% 1,000 ML IV SCH (10:15)
--- NOTE | 2020-06-18 10:25 | CC ---
CARDIAC CATHETERIZATION REPORT Mr. Elliott is a 55-year-old male with a known history of hypertension, hyperlipidemia, diabetes mellitus, who has been complaining of episode of chest discomfort and had an abnormal myocardial perfusion imaging. In view of that, recommendation was made regarding cardiac catheterization. The procedure as well as the risks and the complications were discussed with the patient who is in full understanding and agreement. PROCEDURE: Patient was brought to the recyclable materials collector in a fasting semi-sedated state after receiving fentanyl and Benadryl and achieving moderate conscious sedated state. Using Xylocaine anesthesia and Seldinger technique, a 6-Montserratian sheath was introduced in the right radial artery. Selective right and left coronary angiography was performed using 5- [place]erratian 3.5 bend right Tonia catheter. Multiple views of the coronary artery including hemiaxial views obtained. Following that 5-Montserratian tight pigtail catheter introduced in the left ventricle and pressures were calculated. Following that, catheter and sheath were removed. Hemostasis was obtained with deployment of a TR band. There was no immediate complication. The patient was returned to his room in stable condition. Of note, the patient received 4500 units of intravenous heparin as well as intra-arterial verapamil. FINDINGS: LEFT MAIN: This is a large-sized vessel, bifurcating into left circumflex, left anterior descending artery. Left main coronary artery has no evidence of high-grade stenosis. LEFT ANTERIOR DESCENDING ARTERY: This is a large size vessel, tortuous in the mid and distal segment, giving rise to a diagonal branch of moderate caliber proximally. The left anterior descending artery as well as branches have no evidence of obstructive coronary artery disease. LEFT CIRCUMFLEX: This is a large nondominant vessel, giving rise to 2 obtuse marginal branches. The left circumflex as well as branches have no evidence of obstructive coronary artery disease. RIGHT CORONARY ARTERY: This is a large dominant vessel bifurcating distally PDA and posterolateral segment and branches. The right coronary artery as well as branches have no evidence of obstructive coronary artery disease. LEFT VENTRICULOGRAM: Left ventriculogram was not performed. HEMODYNAMICS: There was no gradient across the aortic valve. The left ventricular end-diastolic pressure was 10-12 mmHg. CONCLUSION: 1. Normal coronary arteries. 2. Normal left ventricular end-diastolic pressure. RECOMMENDATION: In view of finding anatomy, I recommend continue medical therapy with aggressive coronary risk modifications that have been initiated. Those findings and recommendation were discussed with the patient and his sister over the phone. They are in full understanding and agreement. Duration of sedation is 23 minutes. MMODL / IJN: [id number] /
--- NOTE | 2020-06-18 10:31 | LTR ---
June 18, 2020 Re: Andrea Elliott Dear Dr. Peralta: I had an opportunity to perform cardiac catheterization on Mr. Elliott at [facility] on the 18 of June and a full copy of the procedure note will be forwarded to you. In brief, he was found to have no evidence of obstructive coronary artery disease with a preserved left ventricular size and systolic function. Based on those findings, I recommended continued medical therapy with the aggressive coronary risk modifications as you have initiated. Thank you again for allowing me the opportunity to participate in his care. Please feel free to call for any questions. Sincerely yours, MD MINI Ash / ANAMN: [id number] /
[2020-06-18] MEDS: NICOTINE 14MG/24HR PATCH TRANSDERM SCH (10:38)
[2020-06-18 10:39] LABS: African American GFR (CKD) 59.5 (60.0-200.0); Anion Gap 11.4 mmol/L (4.00-12.00); Calcium 9.5 mg/dL (8.7-10.3); Carbon Dioxide 19.6 mmol/L (21.6-31.8); Chol/HDL Ratio 12.33; Magnesium 2.1 mg/dL (1.5-2.4); Non-African American GFR(CKD) 51.3 (60.0-200.0); Potassium 5.1 mmol/L (3.5-5.5)
[2020-06-18] MEDS ORDERED: methylPREDNISolone SOD SUCCI 125 MG/2 ML VIAL IV SCH (11:30)
[2020-06-18 12:55] LABS: Glucose,Whole Blood 317 mg/dL (75-99)
--- NOTE | 2020-06-18 14:12 | P.DS ---
<Ajit Rudolph - Last Filed: 06/18/20 14:01> Providers Expected date of discharge: 06/18/20 Hospital Course: Discharge Diagnosis: Non-Cardiac Chest pain, Resolved EtOH withdrawal Diabetes mellitus type 2, poorly controlled with recent A1c of 10.2 Hypertension Hyperlipidemia Hospital Course: Patient is a 55-year-old male with a past medical history of diabetes mellitus type 2, hypertension, EtOH use/abuse drinking a reported 1-2 pints of liquor daily, anxiety, and recent Covid 19 virus infection in August,. 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 He presented to [facility] ED with reports of chest pain which was reportedly preceded by reports of alcohol withdrawal, anxiety, and hypertension. Patient was transferred to our facility where he was admitted for cardiac workup and EtOH withdrawal as it had been greater than 18 hours since patients last drink. Cardiac workup completed with lipid profile revealing an elevated triglyceride level of 686 and total cholesterol of 296, troponins negative, EKGs showing no ischemic changes, and cardiac catheterization was reported to have no evidence of obstructive coronary artery disease with a preserved left ventricular size and systolic function. Patient was cleared by cardiology with recommendations to continue medical therapy with aggressive coronary risk modifications which are already in place with aspirin, carvedilol, pravastatin, fenofibrate, gemfibrozil, and lisinopril. CIWA protocol was in place and CIWA score downtrending with score of 5 upon discharge. Patient being discharged home at this time. Had long discussion on the importance of smoking and alcohol cessation. Patient was educated on significant risks of continued use up to and including . Discussed inpatient rehabilitation and patient declined at this time. Patient was strongly encouraged to continue attending outpatient AA meetings as we discussed and understand that there are inpatient rehabilitation centers available if he changes his mind and is willing to go. Recent A1c obtained outpatient on 06/09/20 resulted at 10.2, this was addressed by PCP with the addition of oral medications Jardiance and will need follow up. Assessment: Patient seen and examined at bedside Upon assessment, patient continues to deny any chest pain, headache, lightheadedness, dizziness, changes in vision or hearing, palpitations, shortness of breath, abdominal pain, nausea, or vomiting. No noted tremors. Physical exam: Vital signs stable. General: non toxic, no distress, appears at stated age Derm: warm, dry Head: atraumatic, normocephalic, symmetric Eyes: EOMI, no lid lag, anicteric sclera Mouth: no lip lesion, mucus membranes moist Cardiovascular: S1S2 reg, no murmur, positive posterior tibial pulse bilateral, Lungs: CTA bilateral, no rhonchi, no rales , no accessory muscle use Abdominal: soft, nontender to palpation, no guarding, no appreciable organomegaly Ext: no gross muscle atrophy, no edema, no contractures Neuro: CN II-XI grossly intact, no focal neuro deficits Psych: Alert, oriented, appropriate affect A total of 45 minutes of time were spent preparing this complex discharge summary. Plan - Discharge Summary Discharge Rx Participant: No New Discharge Prescriptions: New Aspirin 81 mg PO QAM chew Nicotine 14Mg/24Hr Patch [Habitrol] 1 patch TRANSDERM DAILY 30 Days #30 patch Thiamine [Vitamin B-1] 100 mg PO BID-W/MEALS tab Continue carvediloL [Coreg] 6.25 mg PO BID-W/MEALS 30 Days tab Fluticasone Nasal [place] [Flonase Nasal [place]] 2 spray EA NOSTRIL DAILY PRN #1 spr PRN Reason: Allergy Symptoms Fenofibrate [Lofibra] 160 mg PO DAILY 30 Days tab Prazosin [Minipress] 2 mg PO HS 30 Days cap Gabapentin [Neurontin] 800 mg PO TID 30 Days cap Pantoprazole [Protonix] 40 mg PO HS 30 Days tablet. Acetaminophen Tab [Tylenol] 650 mg PO Q8HR PRN 14 Days tab PRN Reason: Fever And/ Or Pain busPIRone HCL [Buspar] 30 mg PO BID 30 Days tab DULoxetine HCL [Cymbalta] 60 mg PO BID 30 Days cap Pravastatin Sodium [Pravachol] 40 mg PO HS 30 Days tab glipiZIDE [Glucotrol] 20 mg PO AC-BID #60 tablet Cyclobenzaprine [Flexeril] 10 mg PO TID PRN PRN Reason: Muscle Pain Gemfibrozil [Lopid] 600 mg PO AC-BID lisinopriL 20 mg PO DAILY OLANZapine [ZyPREXA] 5 mg PO QAM oxyCODONE HCL/ACETAMINOPHEN [Percocet 7.5-325 mg] 1 tab PO TID PRN PRN Reason: Pain OLANZapine [ZyPREXA] 10 mg PO HS Clotrimazole Cream [Lotrimin Cream] 1 applic TOPICAL DAILY Ergocalciferol (Vitamin D2) [Drisdol (50,000 Iu)] 1,250 mcg PO RODRÍGUEZ Sennosides [Senna] 8.6 mg PO BID PRN PRN Reason: Constipation Melatonin 6 mg PO HS metFORMIN HCL 1,000 mg PO BID #60 tab Discharge Medication List Acetaminophen Tab [Tylenol] 650 mg PO Q8HR PRN 14 Days tab 03/24/20 [Rx] DULoxetine HCL [Cymbalta] 60 mg PO BID 30 Days cap 03/24/20 [Rx] Fenofibrate [Lofibra] 160 mg PO DAILY 30 Days tab 03/24/20 [Rx] Fluticasone Nasal [place] [Flonase Nasal [place]] 2 spray EA NOSTRIL DAILY PRN #1 sp r 03/24/20 [Rx] Gabapentin [Neurontin] 800 mg PO TID 30 Days cap 03/24/20 [Rx] Pantoprazole [Protonix] 40 mg PO HS 30 Days tablet.dr 03/24/20 [Rx] Pravastatin Sodium [Pravachol] 40 mg PO HS 30 Days tab 03/24/20 [Rx] Prazosin [Minipress] 2 mg PO HS 30 Days cap 03/24/20 [Rx] busPIRone HCL [Buspar] 30 mg PO BID 30 Days tab 03/24/20 [Rx] carvediloL [Coreg] 6.25 mg PO BID-W/MEALS 30 Days tab 03/24/20 [Rx] glipiZIDE [Glucotrol] 20 mg PO AC-BID #60 tablet 04/18/20 [Rx] Cyclobenzaprine [Flexeril] 10 mg PO TID PRN 06/15/20 [History] Gemfibrozil [Lopid] 600 mg PO AC-BID 06/15/20 [History] OLANZapine [ZyPREXA] 5 mg PO QAM 06/15/20 [History] lisinopriL 20 mg PO DAILY 06/15/20 [History] oxyCODONE HCL/ACETAMINOPHEN [Percocet 7.5-325 mg] 1 tab PO TID PRN 06/15/20 [History] Clotrimazole Cream [Lotrimin Cream] 1 applic TOPICAL DAILY 06/17/20 [History] Ergocalciferol (Vitamin D2) [Drisdol (50,000 Iu)] 1,250 mcg PO RODRÍGUEZ 06/17/20 [History] Melatonin 6 mg PO HS 06/17/20 [History] OLANZapine [ZyPREXA] 10 mg PO HS 06/17/20 [History] Sennosides [Senna] 8.6 mg PO BID PRN 06/17/20 [History] Aspirin 81 mg PO QAM chew 06/18/20 [Rx] Nicotine 14Mg/24Hr Patch [Habitrol] 1 patch TRANSDERM DAILY 30 Days #30 patch 06/18/20 [Rx] Thiamine [Vitamin B-1] 100 mg PO BID-W/MEALS tab 06/18/20 [Rx] metFORMIN HCL 1,000 mg PO BID #60 tab 06/18/20 [Rx] Follow up Appointment(s)/Referral(s): Fiordaliza Morton MD [STAFF PHYSICIAN] - 1 Week (office will call pt at home to set up appoinment. ) Marlen Mobley MD [Primary Care Provider] - 1-2 days Jose Guadalupe Foster DO [Doctor of Osteopathic Medicine] - 1 Week (Follow-up with Dr. Foster, studio model for persistent dyspnea with exertion status post Covid 19 virus infection. Need PFTs to rule out underlying chronic lung disease with long-standing history of tobacco use.) Activity/Diet/Wound Care/Special Instructions: Activity: As tolerated Diet: Heart healthy and carb consistent diet. Special Instructions: -Strongly encourage you to stop smoking. -Strongly encourage you to stop drinking, as continuing alcohol abuse can lead to significant health consequences up to and including . Continue attending AA meetings as we discussed and understand that there are inpatient rehabilitation centers available if you change your mind and are willing to go. -Resume Metformin in 48 hours Discharge Disposition: HOME SELF-CARE <Natalie Byrd - Last Filed: 06/19/20 07:31> Providers Date of admission: 06/17/20 16:08 Attending physician: Natalie Byrd DO Consults: 06/17/20 15:56 Consult Physician Urgent Consulting Provider: [facility] Consult Reason/Comments: Chest pain Do you want consulting provider notified?: Yes Primary care physician: Marlen [facility] Course: Patient seen and examined independently. Patient was also seen by Ajit Rudolph NP and case was discussed. I am in agreement with discharge diagnosis, hospital course, and physical exam as written above and amended below. Patient seen and examined at bedside. No chest pain, mild tremors, no nausea, no vomiting, no LINK, no SOB at rest. Discussed possible trial of PPI on an outpatient basis and PFT/Pulmonary evaluation General: non toxic, no distress, appears at stated age Derm: warm, dry Head: atraumatic, normocephalic, symmetric Eyes: EOMI, no lid lag, anicteric sclera Mouth: no lip lesion, mucus membranes moist Cardiovascular: S1S2 reg, no murmur, positive posterior tibial pulse bilateral, Lungs: CTA bilateral, no rhonchi, no rales , no accessory muscle use Abdominal: soft, nontender to palpation, no guarding, no appreciable organomegaly Ext: no gross muscle atrophy, no edema, no contractures Neuro: CN II-XI grossly intact, no focal neuro deficits, + Tremors. Psych: Alert, oriented, appropriate affect Non cardiac chest pain ETOH abuse with withdrawal
[2020-06-18 14:18] VITALS: BP 115/77; PULSE 96
[2020-06-19] MEDS ORDERED: HEPARIN SODIUM,PORCINE 2,500 UNIT in SODIUM CHLORIDE 0.9% 250 ML IRRIGATION PRN (07:00)
[2020-06-19] MEDS ORDERED: HEPARIN SODIUM,PORCINE 10,000 UNIT in SODIUM CHLORIDE 0.9% 1,000 ML IRRIGATION PRN (07:00)
[2020-06-19] MEDS ORDERED: ASPIRIN 81 MG PO SCH (09:00)
== END 2020-06-18 15:45 | disposition home or self-care (01) ==
LOC: EC 14:45 → 6NMEDSUR 16:08
PROVIDERS: ADMIT Internal Medicine; ATTEND Internal Medicine
DX: R07.89 Other chest pain (principal); E11.65 Type 2 diabetes mellitus with hyperglycemia; E78.5 Hyperlipidemia, unspecified; F10.239 Alcohol dependence with withdrawal, unspecified; F17.200 Nicotine dependence, unspecified, uncomplicated; F25.9 Schizoaffective disorder, unspecified; F31.9 Bipolar disorder, unspecified; F41.9 Anxiety disorder, unspecified; I10 Essential (primary) hypertension; Z86.16 Personal history of COVID-19; Z79.82 Long term (current) use of aspirin; Z79.84 Long term (current) use of oral hypoglycemic drugs; Z79.899 Other long term (current) drug therapy; Z96.643 Presence of artificial hip joint, bilateral
CPT/HCPCS: 93458; 96376 ×3; 96372 ×2; 93005 ×2; 96374; 99285; 36415; 80061; 80048; 83735; 84484; 85027; 83721; G0378 ×2; C1769; C1894; J2250; J2060 ×2; J1644 ×3; J3411; J2001; J3010; Q9967

== ENCOUNTER 2020-07-02 15:50 | Inpatient (IN) | payer MEDICARE, MEDICAID ==
--- NOTE | 2020-07-02 16:53 | XR ---
EXAMINATION TYPE: XR chest 2V DATE OF EXAM: 07/02/2020 COMPARISON: 03/14/2020 HISTORY: Cough and short of breath TECHNIQUE: 2 views FINDINGS: Heart and mediastinum are normal. Lungs are clear. Diaphragm is normal. Bony thorax is norm al. IMPRESSION: Normal chest. No change.
--- NOTE | 2020-07-02 17:10 | ED ---
General Adult HPI - General Chief complaint: Psychiatric Symptoms Stated complaint: Anxiety Time Seen by Provider: 07/02/20 15:59 Source: patient, EMS, RN notes reviewed, old records reviewed Mode of arrival: EMS Limitations: no limitations - History of Present Illness Initial comments: 55-year-old male presenting for depression, suicidal ideation. Patient admits to HUFFING prior to arrival. He states this was not a suicide attempt but that he's been having increased anxiety and thoughts of suicide. He also admits to minimal alcohol consumption today. He's had history of depression and anxiety and states he symptoms are worsening. Denies any specific self-harm. - Related Data Home Medications Medication Instructions Recorded Confirmed Cyclobenzaprine [Flexeril] 10 mg PO TID PRN 06/15/20 07/02/20 Gemfibrozil [Lopid] 600 mg PO AC-BID 06/15/20 07/02/20 OLANZapine [ZyPREXA] 5 mg PO QAM 06/15/20 07/02/20 lisinopriL 20 mg PO DAILY 06/15/20 07/02/20 oxyCODONE HCL/ACETAMINOPHEN 1 tab PO TID PRN 06/15/20 07/02/20 [Percocet 7.5-325 mg] Clotrimazole Cream [Lotrimin Cream] 1 applic TOPICAL DAILY 06/17/20 07/02/20 Ergocalciferol (Vitamin D2) 1,250 mcg PO RODRÍGUEZ 06/17/20 07/02/20 [Drisdol (50,000 Iu)] Melatonin 6 mg PO HS 06/17/20 07/02/20 OLANZapine [ZyPREXA] 10 mg PO HS 06/17/20 07/02/20 Sennosides [Senna] 8.6 mg PO BID PRN 06/17/20 07/02/20 Carvedilol [Coreg] 12.5 mg PO BID 07/02/20 07/02/20 Nicotine 14Mg/24Hr Patch [Habitrol] 1 patch TRANSDERM DAILY PRN 07/02/20 07/02/20 Previous Rx's Medication Instructions Recorded Acetaminophen Tab [Tylenol] 650 mg PO Q8HR PRN 14 Days tab 03/24/20 DULoxetine HCL [Cymbalta] 60 mg PO BID 30 Days cap 03/24/20 Fenofibrate [Lofibra] 160 mg PO DAILY 30 Days tab 03/24/20 Fluticasone Nasal [place] [Flonase 2 spray EA NOSTRIL DAILY PRN #1 spr 03/24/20 Nasal [place]] Gabapentin [Neurontin] 800 mg PO TID 30 Days cap 03/24/20 Pantoprazole [Protonix] 40 mg PO HS 30 Days tablet. 03/24/20 Pravastatin Sodium [Pravachol] 40 mg PO HS 30 Days tab 03/24/20 Prazosin [Minipress] 2 mg PO HS 30 Days cap 03/24/20 busPIRone HCL [Buspar] 30 mg PO BID 30 Days tab 03/24/20 glipiZIDE [Glucotrol] 20 mg PO AC-BID #60 tablet 04/18/20 Aspirin 81 mg PO QAM chew 06/18/20 Thiamine [Vitamin B-1] 100 mg PO BID-W/MEALS tab 06/18/20 metFORMIN HCL 1,000 mg PO BID #60 tab 06/18/20 Allergies Allergy/AdvReac Type Severity Reaction Status Date / Time thimerosal Allergy Severe Rash/Hives/throat Verified 07/02/20 18:25 swelling neomycin Allergy Rash/Hives Verified 07/02/20 18:25 Review of Systems ROS Statement: Those systems with pertinent positive or pertinent negative responses have been documented in the HPI. ROS Other: All systems not noted in ROS Statement are negative. Past Medical History Past Medical History: Diabetes Mellitus, Hypertension, Sleep Apnea/CPAP/BIPAP Additional Past Medical History / Comment(s): hx bilateral hip 2017 replacements History of Any Multi-Drug Resistant Organisms: None Reported Past Surgical History: Joint Replacement Additional Past Surgical History / Comment(s): bilateral cataract removed, Both hips replaced, right heal shattered- screws/plates/ pins. Past Psychological History: Anxiety, Bipolar, Depression, Schizoaffective Disorder Smoking Status: Current every day smoker Past Alcohol Use History: Abuse Past Drug Use History: None Reported - Past Family History family Additional Family Medical History / Comment(s): anxiety General Exam Limitations: no limitations General appearance: alert, in no apparent distress Head exam: Present: atraumatic, normocephalic Eye exam: Present: normal appearance, PERRL ENT exam: Present: normal exam Neck exam: Present: normal inspection. Absent: tenderness, meningismus Respiratory exam: Present: normal lung sounds bilaterally. Absent: respiratory distress, wheezes, rales Cardiovascular Exam: Present: regular rate, normal rhythm GI/Abdominal exam: Present: soft. Absent: distended, tenderness, guarding Extremities exam: Present: normal inspection, normal capillary refill. Absent: pedal edema, calf tenderness Neurological exam: Present: alert, oriented X3, CN II-XII intact. Absent: motor sensory deficit Psychiatric exam: Present: depressed, anxious, suicidal ideation Skin exam: Present: warm, dry, intact. Absent: cyanosis, diaphoretic Course Vital Signs 07/02/20 07/02/20 15:58 18:13 Temperature 97.8 F Pulse Rate 89 79 Respiratory 16 16 Rate Blood Pressure 132/89 137/86 O2 Sat by Pulse 99 99 Oximetry - Reevaluation(s) Reevaluation #1: 07/02/20 17:09 Patient cleared for EPS evaluation. Medical Decision Making - Medical Decision Making Patient evaluated for suicidal ideation, depression. He has been evaluated by EPS in the emergency department and felt to require inpatient psychiatric evaluation and treatment. He will be admitted to this institution. - Lab Data Lab Results 07/02/20 Range/Units 17:04 Urine Opiates Screen Not Detected (NotDetected) Ur Oxycodone Screen Not Detected (NotDetected) Urine Methadone Screen Not Detected (NotDetected) Ur Propoxyphene Screen Not Detected (NotDetected) Ur Barbiturates Screen Not Detected (NotDetected) U Tricyclic Antidepress Not Detected (NotDetected) Ur Phencyclidine Scrn Not Detected (NotDetected) Ur Amphetamines Screen Not Detected (NotDetected) U Methamphetamines Scrn Not Detected (NotDetected) U Benzodiazepines Scrn Detected H (NotDetected) Urine Cocaine Screen Not Detected (NotDetected) U Marijuana (THC) Screen Not Detected (NotDetected) Disposition Clinical Impression: Depression, Anxiety disorder, Suicidal ideation Disposition: ADMITTED IP TO THIS [facility] Condition: Stable Is patient prescribed a controlled substance at d/c from ED?: No Referrals: Marlen Mobley MD [Primary Care Provider] - 1-2 days Decision to Admit Reason: Admit from EC Decision Date: 07/02/20 Decision Time: 19:20
[2020-07-02 17:45] LABS: Amphetamine Screen,Urine Not Detected (NotDetected); Barbiturate Screen,Urine Not Detected (NotDetected); Benzodiazepines Screen,Urine Detected (NotDetected); Cocaine Screen,Urine Not Detected (NotDetected); Methadone Screen, Urine Not Detected (NotDetected); Opiate Screen,Urine Not Detected (NotDetected); Oxycodone Screen, Urine Not Detected (NotDetected); Phencyclidine Screen,Urine Not Detected (NotDetected); Tricyclic Antidepressant,Urine Not Detected (NotDetected); Urn Cannabinoid Scrn Not Detected (NotDetected)
[2020-07-02] MEDS ORDERED: LORazepam 1 MG TAB PO STA (19:19)
[2020-07-02] MEDS ORDERED: MAG HYDROX/AL HYDROX/SIMETH 30 ML CUP PO PRN (21:45)
[2020-07-02] MEDS ORDERED: MAGNESIUM HYDROXIDE 2,400 MG/10 ML CUP PO PRN (21:45)
[2020-07-02] MEDS ORDERED: ACETAMINOPHEN TAB 325 MG TAB PO PRN (21:45)
[2020-07-02] MEDS ORDERED: CYCLOBENZAPRINE 10 MG TAB PO PRN (21:51)
[2020-07-02] MEDS ORDERED: LORazepam 2 MG/ML INJ IM PRN (21:53)
[2020-07-02 21:55] LABS: Glucose,Whole Blood 143 mg/dL (75-99)
[2020-07-02] MEDS ORDERED: HALOPERIDOL LACTATE 5 MG/ML 1 ML VIAL IM PRN (22:00)
[2020-07-02] MEDS ORDERED: SENNOSIDES 8.6 MG TAB PO PRN (23:00)
[2020-07-02] MEDS: PRAVASTATIN SODIUM 40 MG TAB PO SCH (23:06)
[2020-07-03] MEDS: PANTOPRAZOLE 40 MG TABLET PO SCH ×2 (00:18→21:05)
[2020-07-03] MEDS ORDERED: LORazepam 1 MG TAB PO PRN (06:45)
[2020-07-03] MEDS ORDERED: GEMFIBROZIL 600 MG PO SCH (07:30)
[2020-07-03] MEDS ORDERED: glipiZIDE 10 MG TAB PO SCH (07:30)
[2020-07-03 07:56] LABS: Glucose,Whole Blood 172 mg/dL (75-99)
[2020-07-03] MEDS: FENOFIBRATE 160 MG TAB PO SCH (07:58)
[2020-07-03] MEDS: carvediloL 12.5 MG TAB PO SCH ×2 (07:58→17:21)
[2020-07-03] MEDS: ASPIRIN 81 MG PO SCH (07:58)
[2020-07-03] MEDS: THIAMINE 100 MG TAB PO SCH ×2 (07:58→17:21)
[2020-07-03] MEDS: NICOTINE 14MG/24HR PATCH TRANSDERM SCH (07:59)
[2020-07-03] MEDS ORDERED: FLUTICASONE 50MCG/SPRAY NASAL 16GM EA NOSTRIL PRN (09:00)
[2020-07-03] MEDS ORDERED: metFORMIN 500 MG TAB PO SCH (09:00)
[2020-07-03] MEDS ORDERED: lisinopriL 20 MG TAB PO SCH (09:00)
[2020-07-03 10:24] LABS: Anisocytosis Slight; Basophils % (A) 1 %; Eosinophils # (A) 0.2 k/uL (0-0.7); Eosinophils % (A) 3 %; HCT 34.2 % (39.0-53.0); HGB 11.4 gm/dL (13.0-17.5); Lymphocytes % (A) 27 %; MCH 30.4 pg (25.0-35.0); MCHC 33.5 g/dL (31.0-37.0); Mean Platelet Volume 6.8; Monocytes # (A) 0.5 k/uL (0-1.0); Monocytes % (A) 7 %; Neutrophils # (A) 4.3 k/uL (1.3-7.7); Neutrophils % (A) 59 %; Platelet Count 415 k/uL (150-450); RBC 3.76 m/uL (4.30-5.90); RDW 16.1 % (11.5-15.5); WBC 7.2 k/uL (3.8-10.6)
[2020-07-03 10:34] LABS: Albumin 4.8 g/dL (3.5-5.0); Calcium 10.3 mg/dL (8.4-10.2); Potassium 5.2 mmol/L (3.5-5.1); Total Bilirubin 0.5 mg/dL (0.2-1.3); Total Protein 8.1 g/dL (6.3-8.2)
[2020-07-03] MEDS: GABAPENTIN 300 MG CAP PO SCH ×2 (11:48→21:06)
[2020-07-03 12:56] LABS: Glucose,Whole Blood 57 mg/dL (75-99)
[2020-07-03 13:08] LABS: Glucose,Whole Blood 56 mg/dL (75-99)
[2020-07-03 13:20] LABS: Glucose,Whole Blood 75 mg/dL (75-99)
--- NOTE | 2020-07-03 13:43 | P.HPMEDMHU ---
History of Present Illness H&P Date: 07/03/20 Chief Complaint: diabetes Patient is a 55-year-old male with a history of diabetes, hypertension, neuropathy, dyslipidemia who presented to the emergency department secondary to worsening anxiety and depression. He had been huffing 5 aerosol cans. He was subsequently admitted to the mental health unit. We are called secondary to elevated potassium, BUN, creatinine and low blood pressure. Patient seen and examined. He reports that he has been feeling depressed and did 5:30 aerosol cans over the weekend. He has had minimal alcohol consumption. He feels as though he has not been eating well but thinks his water intake take it may have been adequate. He reports prior history of kidney problems during Covid. He denies any nausea, vomiting, diarrhea. He denies any dysuria but states 2 days ago he felt it was difficult to urinate. He denies any cough, cold, fever, flu, chest pain, shortness of breath. Currently he is feeling anxious, fidgety, and diaphoretic. He feels as though he is withdrawing. He denies any lightheadedness or dizziness. Review of Systems Pertinent positives and negatives as discussed in HPI, a complete review of systems was performed and all other systems are negative. 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, neuropathy, anxiety History of Any Multi-Drug Resistant Organisms: None Reported Past Surgical History: Joint Replacement Additional Past Surgical History / Comment(s): bilateral cataract removed, Both hips replaced, right heal shattered- screws/plates/ pins, cardiac cath 06/18/20 Past Psychological History: Anxiety, Bipolar, Depression, Schizoaffective Disorder Smoking Status: Current some day smoker Past Alcohol Use History: Abuse Past Drug Use History: None Reported Additional Drug Use History / Comment(s): huffing - Past Family History family Additional Family Medical History / Comment(s): anxiety Medications and Allergies Home Medications Medication Instructions Recorded Confirmed Type Acetaminophen Tab [Tylenol] 650 mg PO Q8HR PRN 14 Days tab 03/24/20 07/02/20 Rx DULoxetine HCL [Cymbalta] 60 mg PO BID 30 Days cap 03/24/20 07/02/20 Rx Fenofibrate [Lofibra] 160 mg PO DAILY 30 Days tab 03/24/20 07/02/20 Rx Fluticasone Nasal [place] [Flonase 2 spray EA NOSTRIL DAILY PRN #1 spr 03/24/20 07/02/20 Rx Nasal [place]] Gabapentin [Neurontin] 800 mg PO TID 30 Days cap 03/24/20 07/02/20 Rx Pantoprazole [Protonix] 40 mg PO HS 30 Days tablet.dr 03/24/20 07/02/20 Rx Pravastatin Sodium [Pravachol] 40 mg PO HS 30 Days tab 03/24/20 07/02/20 Rx Prazosin [Minipress] 2 mg PO HS 30 Days cap 03/24/20 07/02/20 Rx busPIRone HCL [Buspar] 30 mg PO BID 30 Days tab 03/24/20 07/02/20 Rx glipiZIDE [Glucotrol] 20 mg PO AC-BID #60 tablet 04/18/20 07/02/20 Rx Cyclobenzaprine [Flexeril] 10 mg PO TID PRN 06/15/20 07/02/20 History Gemfibrozil [Lopid] 600 mg PO AC-BID 06/15/20 07/02/20 History OLANZapine [ZyPREXA] 5 mg PO QAM 06/15/20 07/02/20 History lisinopriL 20 mg PO DAILY 06/15/20 07/02/20 History oxyCODONE HCL/ACETAMINOPHEN 1 tab PO TID PRN 06/15/20 07/02/20 History [Percocet 7.5-325 mg] Clotrimazole Cream [Lotrimin Cream] 1 applic TOPICAL DAILY 06/17/20 07/02/20 History Ergocalciferol (Vitamin D2) 1,250 mcg PO RODRÍGUEZ 06/17/20 07/02/20 History [Drisdol (50,000 Iu)] Melatonin 6 mg PO HS 06/17/20 07/02/20 History OLANZapine [ZyPREXA] 10 mg PO HS 06/17/20 07/02/20 History Sennosides [Senna] 8.6 mg PO BID PRN 06/17/20 07/02/20 History Aspirin 81 mg PO QAM chew 06/18/20 07/02/20 Rx Thiamine [Vitamin B-1] 100 mg PO BID-W/MEALS tab 06/18/20 07/02/20 Rx metFORMIN HCL 1,000 mg PO BID #60 tab 06/18/20 07/02/20 Rx Carvedilol [Coreg] 12.5 mg PO BID 07/02/20 07/02/20 History Nicotine 14Mg/24Hr Patch [Habitrol] 1 patch TRANSDERM DAILY PRN 07/02/20 07/02/20 History Allergies Allergy/AdvReac Type Severity Reaction Status Date / Time thimerosal Allergy Severe Rash/Hives/throat Verified 07/02/20 18:25 swelling neomycin Allergy Rash/Hives Verified 07/02/20 18:25 Physical Exam Osteopathic Statement: *. No significant issues noted on an osteopathic structural exam other than those noted in the History and Physical/Consult. Vitals: Vital Signs Temp Pulse Pulse Resp BP BP Pulse Ox 07/03/20 08:00 110 H 85/53 07/03/20 03:49 97.6 F 132 H 110/68 07/02/20 22:18 98.4 F 106 H 16 101/64 98 07/02/20 18:13 79 16 137/86 99 07/02/20 15:58 97.8 F 89 16 132/89 99 Intake and Output 07/02/20 07/03/20 07/03/20 22:59 06:59 14:59 Other: Weight 78.5 kg General: non toxic, no distress, appears at stated age, diaphoretic Derm: warm, dry Head: atraumatic, normocephalic, symmetric Eyes: EOMI, no lid lag, anicteric sclera, pupils equal round reactive to light ENT: Nose and ears atraumatic, no thrush, no pharyngeal erythema Neck: No thyromegaly, no cervical lymphadenopathy, trachea midline, supple Mouth: no lip lesion, mucus membranes dry Cardiovascular: S1S2 tachy, no murmur, positive posterior tibial pulse bilateral, no edema, capillary refill less than 2 seconds Lungs: clear to ascultation bilateral, no ronchi, no rales, no wheeze, no accessory muscle use Abdominal: soft, nontender to palpation, no guarding, no appreciable organomegaly, normal bowel sounds Ext: no gross muscle atrophy, muscle strength muscle strength 5 out of 5 in all 4 extremities, no contractures Neuro: CN II-XI grossly intact, light touch intact all 4 extremities, finger to nose within normal limits, Psych: Alert, oriented, appropriate affect Cranial Nerve Examination - Cranial Nerves Cranial Nerve II- Optic: Intact Cranial Nerve III- Oculomotor: Intact Cranial Nerve IV- Trochlear: Intact Cranial Nerve V- Trigeminal: Intact Cranial Nerve - Abducens: Intact Cranial Nerve VII- Facial: Intact Cranial Nerve VIII- Auditory: Intact Cranial Nerve IX- Glossopharyngeal: Intact Cranial Nerve X- Vagus: Intact Cranial Nerve XI- Accessory: Intact Cranial Nerve XII- Hypoglossal: Intact Results CBC & Chem 7: 07/03/20 09:59 07/03/20 09:59 Labs: Abnormal Lab Results - Last 24 Hours (Table) 07/02/20 07/02/20 07/03/20 Range/Units 17:04 21:42 07:55 RBC (4.30-5.90) m/uL Hgb (13.0-17.5) gm/dL Hct (39.0-53.0) % RDW (11.5-15.5) % Potassium (3.5-5.1) mmol/L Carbon Dioxide (22-30) mmol/L BUN (9-20) mg/dL Creatinine (0.66-1.25) mg/dL Glucose (74-99) mg/dL POC Glucose (mg/dL) 143 H 172 H (75-99) mg/dL Calcium (8.4-10.2) mg/dL Triglycerides (<150) mg/dL Cholesterol (<200) mg/dL U Benzodiazepines Scrn Detected H (NotDetected) 07/03/20 07/03/20 07/03/20 Range/Units 09:59 09:59 12:47 RBC 3.76 L (4.30-5.90) m/uL Hgb 11.4 L (13.0-17.5) gm/dL Hct 34.2 L (39.0-53.0) % RDW 16.1 H (11.5-15.5) % Potassium 5.2 H (3.5-5.1) mmol/L Carbon Dioxide 21 L (22-30) mmol/L BUN 52 H (9-20) mg/dL Creatinine 2.43 H (0.66-1.25) mg/dL Glucose 102 H (74-99) mg/dL POC Glucose (mg/dL) 57 L (75-99) mg/dL Calcium 10.3 H (8.4-10.2) mg/dL Triglycerides 419 H (<150) mg/dL Cholesterol 252 H (<200) mg/dL U Benzodiazepines Scrn (NotDetected) 07/03/20 Range/Units 13:03 RBC (4.30-5.90) m/uL Hgb (13.0-17.5) gm/dL Hct (39.0-53.0) % RDW (11.5-15.5) % Potassium (3.5-5.1) mmol/L Carbon Dioxide (22-30) mmol/L BUN (9-20) mg/dL Creatinine (0.66-1.25) mg/dL Glucose (74-99) mg/dL POC Glucose (mg/dL) 56 L (75-99) mg/dL Calcium (8.4-10.2) mg/dL Triglycerides (<150) mg/dL Cholesterol (<200) mg/dL U Benzodiazepines Scrn (NotDetected) Assessment and Plan Assessment: JACKIE with hyperkalemia - hold lisinopril - encourage oral fluid intake - Repeat BP in AM - renal us - check UA - hold metformin and glipizde DM 2 with neuropathy - Hold metformin and glipizide secondary to renal dysfunction -Sliding-scale insulin -Follow blood sugars -Hemoglobin A1c 10.2 on 06/09/20 Hypertension -Currently hypotensive -Oral fluid hydration -Hold lisinopril, parameters added to Coreg Dyslipidemia -Fenofibrate, gemfibrozil Polysubstance abuse -Cessation Anemia -Chronic and at baseline -Outpatient follow-up Plan on following up with patient in a.m. and repeat blood work. Thank you for allowing us to participate in the care of this pleasant patient. Do not hesitate to contact us with questions. Someone can be reached from the [facility] hospitalist group all hours of the day at [phone] or via perfect serve.
--- NOTE | 2020-07-03 13:46 | US ---
EXAMINATION TYPE: US renals and bladder DATE OF EXAM: 07/03/2020 COMPARISON: NONE CLINICAL HISTORY: JACKIE, difficulty urinating . Abnormal labs. No pain. EXAM MEASUREMENTS: Right Kidney: 10.0 x 4.6 x 5.5 cm Left Kidney: 10.9 x 4.0 x 6.6 cm Right Kidney: No hydronephrosis or masses seen Left Kidney: No hydronephrosis or masses seen Bladder: distended, anechoic Bilateral Jets not seen There is no evidence for hydronephrosis at this point in time. No nephrolithiasis is seen. No stefania s are identified. The urinary bladder is anechoic. Bilateral ureteral jets are seen. IMPRESSION: No distinct abnormality seen.
[2020-07-03 14:28] LABS: Glucose,Whole Blood 112 mg/dL (75-99)
[2020-07-03] MEDS: OLANZapine 5 MG TAB PO SCH (14:41)
[2020-07-03] MEDS: DULoxetine HCL 30 MG CAPSULE.DR PO SCH (14:41)
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
[2020-07-03 17:48] LABS: Glucose,Whole Blood 126 mg/dL (75-99)
[2020-07-03] MEDS ORDERED: OLANZapine 5 MG TAB PO ONE (18:00)
[2020-07-03 19:20] LABS: Hemoglobin A1C 8.4 % (4.0-6.0)
[2020-07-03] MEDS ORDERED: OLANZapine 10 MG TAB PO SCH (21:00)
[2020-07-03] MEDS ORDERED: PANTOPRAZOLE 40 MG TABLET PO SCH (21:00)
[2020-07-03] MEDS ORDERED: PRAVASTATIN SODIUM 40 MG TAB PO SCH (21:00)
[2020-07-03] MEDS: PRAVASTATIN SODIUM 40 MG TAB PO SCH (21:05)
[2020-07-03] MEDS: busPIRone HCl 5 MG TAB PO SCH (21:05)
[2020-07-03 21:07] VITALS: RESP 18
[2020-07-04 02:30] VITALS: TEMP 97.9
[2020-07-04 07:00] LABS: Calcium 9.8 mg/dL (8.4-10.2)
[2020-07-04 07:41] LABS: Glucose,Whole Blood 155 mg/dL (75-99)
[2020-07-04] MEDS: THIAMINE 100 MG TAB PO SCH (08:06)
[2020-07-04] MEDS: carvediloL 12.5 MG TAB PO SCH (08:06)
[2020-07-04] MEDS: NICOTINE 14MG/24HR PATCH TRANSDERM SCH (08:06)
[2020-07-04] MEDS: FENOFIBRATE 160 MG TAB PO SCH (08:07)
[2020-07-04] MEDS: OLANZapine 5 MG TAB PO SCH (08:07)
[2020-07-04] MEDS: busPIRone HCl 5 MG TAB PO SCH (08:07)
[2020-07-04] MEDS: ASPIRIN 81 MG PO SCH (08:07)
[2020-07-04] MEDS: DULoxetine HCL 30 MG CAPSULE.DR PO SCH (08:07)
[2020-07-04] MEDS: GABAPENTIN 300 MG CAP PO SCH (08:08)
[2020-07-04 08:11] VITALS: BP 105/70; PULSE 130
[2020-07-04] MEDS ORDERED: ERGOCALCIFEROL 1,250 MCG (50,000 IU) CAPSULE PO SCH (09:00)
== END 2020-07-04 08:43 | disposition short-term general hospital (02) | DRG 897 ==
LOC: EC 15:50 → 3MHU 21:42
PROVIDERS: ADMIT Psychiatry & Neurology Psychiatry; ATTEND Psychiatry & Neurology Psychiatry
DX: F10.230 Alcohol dependence with withdrawal, uncomplicated (principal); R45.851 Suicidal ideations; N17.9 Acute kidney failure, unspecified; F18.20 Inhalant dependence, uncomplicated; F25.9 Schizoaffective disorder, unspecified; F31.9 Bipolar disorder, unspecified; E11.40 Type 2 diabetes mellitus with diabetic neuropathy, unspecified; I95.9 Hypotension, unspecified; I11.9 Hypertensive heart disease without heart failure; E11.9 Type 2 diabetes mellitus without complications; F41.9 Anxiety disorder, unspecified; Z20.822 Contact with and (suspected) exposure to COVID-19; N28.9 Disorder of kidney and ureter, unspecified; I10 Essential (primary) hypertension; G47.30 Sleep apnea, unspecified; F17.200 Nicotine dependence, unspecified, uncomplicated; E87.5 Hyperkalemia; E78.5 Hyperlipidemia, unspecified; D64.9 Anemia, unspecified; Z79.82 Long term (current) use of aspirin; Z79.84 Long term (current) use of oral hypoglycemic drugs; Z96.643 Presence of artificial hip joint, bilateral; Z79.899 Other long term (current) drug therapy; Z98.42 Cataract extraction status, left eye; Z98.41 Cataract extraction status, right eye; Z88.8 Allergy status to other drugs, medicaments and biological substances; Z81.8 Family history of other mental and behavioral disorders
CPT/HCPCS: 71046; 76770; 80048; 80053; 80061; 80306; 82075; 82550; 83036; 85025; 87635; 93005; 99285

== ENCOUNTER 2020-07-04 08:06 | Inpatient (IN) | payer MEDICARE, OTHER ==
[2020-07-04] MEDS ORDERED: NALOXONE 0.4 MG/ML 1 ML VIAL IV PRN (08:59)
[2020-07-04] MEDS ORDERED: MELATONIN 3 MG TABLET PO PRN (08:59)
[2020-07-04] MEDS ORDERED: ONDANSETRON 4 MG/2 ML VIAL IVP PRN (08:59)
[2020-07-04] MEDS ORDERED: ACETAMINOPHEN TAB 325 MG TAB PO PRN (08:59)
[2020-07-04] MEDS ORDERED: INSULIN REGULAR 100 UNIT/ML VIAL IV ONE (09:02)
[2020-07-04] MEDS ORDERED: SODIUM CHLORIDE 0.9% 1,000 ML IV ONE (09:02)
[2020-07-04] MEDS ORDERED: DEXTROSE 50% SYRINGE 50 ML IVP STA (09:02)
[2020-07-04] MEDS ORDERED: NICOTINE 14MG/24HR PATCH TRANSDERM PRN (09:03)
[2020-07-04] MEDS ORDERED: FLUTICASONE 50MCG/SPRAY NASAL 16GM EA NOSTRIL PRN (09:03)
[2020-07-04] MEDS ORDERED: SENNOSIDES 8.6 MG TAB PO PRN (09:03)
[2020-07-04] MEDS ORDERED: oxyCODONE-APAP 7.5-325MG 1 EACH TAB PO PRN (09:03)
[2020-07-04] MEDS ORDERED: CALCIUM GLUCONATE 1 GM in SODIUM CHLORIDE 0.9% 100 ML IVPB ONE (09:03)
[2020-07-04] MEDS ORDERED: LORazepam 1 MG TAB PO PRN (09:39)
--- NOTE | 2020-07-04 11:01 | P.HPIM ---
History of Present Illness H&P Date: 07/04/20 Chief Complaint: hyperkalemia Patient is a 55-year-old male with diabetes mellitus type 2 [id number], hypertension, neuropathy, dyslipidemia, and chronic pain who initially presented to the end urgency department secondary to worsening anxiety and depression. He had 5 aerosol cans a day prior. He was initially admitted to the mental health unit on 07/02/20. One blood work was done there after admission it was noted that his creatinine was 2.43, BUN 52, and potassium 5.2. Patient was not having any chest pain, shortness breath, nausea, vomiting, diarrhea, or dizziness. At that point in time his nephrotoxic medications including lisinopril, metformin were held. Oral fluid hydration was encouraged. His glipizide had also been discontinued. He developed some hypoglycemia with sugar in the 50s. This is corrected by giving him apple juice. He underwent a renal ultrasound which was without distinct abnormality. Creatine kinase was 100. Hemoglobin A1c 8.4. Urinalysis was ordered but was unable to be obtained. On the morning of 07/04 repeat blood work was obtained which showed a potassium of 6, creatinine 1.8, BUN 47, sodium 136. The currently arrangements are made for admission to the selective care unit. Patient seen and examined at bedside. He denies any lightheadedness, dizziness, chest pain, palpitations, shortness of breath. He has been eating and drinking well and was able to drink water throughout the day yesterday. He denies any dysuria or difficulty urinating. He is feeling anxious and fidgety. He feels as though he is continuing to withdraw an exceedingly anxious and is requesting Ativan. Review of Systems Pertinent positives and negatives as discussed in HPI, a complete review of systems was performed and all other systems are negative. 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, neuropathy, anxiety History of Any Multi-Drug Resistant Organisms: None Reported Past Surgical History: Joint Replacement Additional Past Surgical History / Comment(s): bilateral cataract removed, Both hips replaced, right heal shattered- screws/plates/ pins, cardiac cath 06/18/20 Past Psychological History: Anxiety, Bipolar, Depression, Schizoaffective Disorder Smoking Status: Current some day smoker Past Alcohol Use History: Abuse Past Drug Use History: None Reported Additional Drug Use History / Comment(s): huffing - Past Family History family Additional Family Medical History / Comment(s): anxiety Medications and Allergies Home Medications Medication Instructions Recorded Confirmed Type Acetaminophen Tab [Tylenol] 650 mg PO Q8HR PRN 14 Days tab 03/24/20 07/02/20 Rx DULoxetine HCL [Cymbalta] 60 mg PO BID 30 Days cap 03/24/20 07/02/20 Rx Fenofibrate [Lofibra] 160 mg PO DAILY 30 Days tab 03/24/20 07/02/20 Rx Fluticasone Nasal [place] [Flonase 2 spray EA NOSTRIL DAILY PRN #1 spr 03/24/20 07/02/20 Rx Nasal [place]] Gabapentin [Neurontin] 800 mg PO TID 30 Days cap 03/24/20 07/02/20 Rx Pantoprazole [Protonix] 40 mg PO HS 30 Days tablet. 03/24/20 07/02/20 Rx Pravastatin Sodium [Pravachol] 40 mg PO HS 30 Days tab 03/24/20 07/02/20 Rx Prazosin [Minipress] 2 mg PO HS 30 Days cap 03/24/20 07/02/20 Rx busPIRone HCL [Buspar] 30 mg PO BID 30 Days tab 03/24/20 07/02/20 Rx glipiZIDE [Glucotrol] 20 mg PO AC-BID #60 tablet 04/18/20 07/02/20 Rx Cyclobenzaprine [Flexeril] 10 mg PO TID PRN 06/15/20 07/02/20 History Gemfibrozil [Lopid] 600 mg PO AC-BID 06/15/20 07/02/20 History OLANZapine [ZyPREXA] 5 mg PO QAM 06/15/20 07/02/20 History lisinopriL 20 mg PO DAILY 06/15/20 07/02/20 History oxyCODONE HCL/ACETAMINOPHEN 1 tab PO TID PRN 06/15/20 07/02/20 History [Percocet 7.5-325 mg] Clotrimazole Cream [Lotrimin Cream] 1 applic TOPICAL DAILY 06/17/20 07/02/20 History Ergocalciferol (Vitamin D2) 1,250 mcg PO RODRÍGUEZ 06/17/20 07/02/20 History [Drisdol (50,000 Iu)] Melatonin 6 mg PO HS 06/17/20 07/02/20 History OLANZapine [ZyPREXA] 10 mg PO HS 06/17/20 07/02/20 History Sennosides [Senna] 8.6 mg PO BID PRN 06/17/20 07/02/20 History Aspirin 81 mg PO QAM chew 06/18/20 07/02/20 Rx Thiamine [Vitamin B-1] 100 mg PO BID-W/MEALS tab 06/18/20 07/02/20 Rx metFORMIN HCL 1,000 mg PO BID #60 tab 06/18/20 07/02/20 Rx Carvedilol [Coreg] 12.5 mg PO BID 07/02/20 07/02/20 History Nicotine 14Mg/24Hr Patch [Habitrol] 1 patch TRANSDERM DAILY PRN 07/02/20 07/02/20 History Allergies Allergy/AdvReac Type Severity Reaction Status Date / Time thimerosal Allergy Severe Rash/Hives/throat Verified 07/02/20 18:25 swelling neomycin Allergy Rash/Hives Verified 07/02/20 18:25 Physical Exam Osteopathic Statement: *. No significant issues noted on an osteopathic structural exam other than those noted in the History and Physical/Consult. Vitals: Intake and Output 07/03/20 07/04/20 07/04/20 22:59 06:59 14:59 Other: Weight 78.5 kg General: non toxic, no distress, appears at stated age Derm: warm, dry Head: atraumatic, normocephalic, symmetric Eyes: EOMI, no lid lag, anicteric sclera, pupils equal round reactive to light ENT: Nose and ears atraumatic, no thrush, no pharyngeal erythema Neck: No thyromegaly, no cervical lymphadenopathy, trachea midline, supple Mouth: no lip lesion, mucus membranes moist Cardiovascular: S1S2 reg, no murmur, positive posterior tibial pulse bilateral, no edema, capillary refill less than 2 seconds Lungs: clear to ascultation bilateral, no ronchi, no rales, no wheeze, no accessory muscle use Abdominal: soft, nontender to palpation, no guarding, no appreciable organomegaly, normal bowel sounds Ext: no gross muscle atrophy, muscle strength muscle strength 5 out of 5 in all 4 extremities, no contractures Neuro: CN II-XI grossly intact, light touch intact all 4 extremities, finger to nose within normal limits, Psych: Alert, oriented, appropriate affect Thrombosis Risk Factor Assmnt - DVT/VTE Prophylaxis DVT/VTE Prophylaxis: Mechanical Prophylaxis ordered Assessment and Plan Assessment: JACKIE with hyperkalemia - contnue to hold lisinopril - 0.9 1L bolus and then 130 mL/hr - nephro consult - renal ultrasound normal - check UA - hold metformin and glipizde - repeat BMP in AM DM 2 with neuropathy - Hold metformin and glipizide secondary to renal dysfunction - Sliding-scale insulin - Follow blood sugars - Hemoglobin A1c 8.4 Hypertension -Currently controlled -Hold lisinopril, parameters added to Coreg Dyslipidemia -Fenofibrate, gemfibrozil Polysubstance abuse -Cessation Anemia -Chronic and at baseline -Outpatient follow-up The patient is admitted with an anticipated greater than 2 midnight stay for evaluation of hyperkalemia. Surrogate decision-maker: CODE STATUS:full DVT prophylaxis: SCDs Discussed with: heather, nursing, and mental health nurse Anticipated discharge date: 2-[address]: return to mental health A total of 65 minutes was spent on the care of this complex patient more than 50% of the time was spent in counseling and care coordination.
[2020-07-04] MEDS ORDERED: SODIUM POLYSTYRENE SULFONATE 15 GM/60 ML BOTTLE PO STA (11:26)
[2020-07-04] MEDS: SODIUM CHLORIDE 0.9% 1,000 ML IV SCH ×2 (12:00→19:35)
[2020-07-04] MEDS: LORazepam 0.5 MG TAB PO PRN ×2 (12:01→20:13)
[2020-07-04 12:05] LABS: Glucose,Whole Blood 128 mg/dL (75-99)
[2020-07-04 13:20] LABS: Calcium 9.6 mg/dL (8.4-10.2)
--- NOTE | 2020-07-04 13:37 | P.NPCON ---
History of Present Illness - Reason for Consult Consult date: 07/04/20 acute renal failure, hyperkalemia - Chief Complaint Hyperkalemia - History of Present Illness 55-year-old white male admitted to inpatient psychiatry because of major depression. As per him he does have chronic kidney disease secondary to NSAID use which was stopped by his primary care physician couple of months ago. He admits having Covid infection last year and since then has elevated kidney function and heart problems. He does have long history of diabetes, denies any retinopathy but does have neuropathy. No history of CAD or strokes. He has hypertension and takes senna Prill and carvedilol at home. He also on multiple psychiatric medications. Denies any nausea vomiting diarrhea. No recent contrast studies or NSAID use. While he was in psychiatric unit, creatinine increased to 2.43 and a potassium of 5.2. Repeat potassium was 6.0 and creatinine was 1.8. He was transferred for medical management for hyperkalemia. Ultrasound no hydronephrosis, bladder scan no urinary retention. He was treated medically repeat potassium was 5.0. Review of Systems Constitutional: Reports as per HPI 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, neuropathy, anxiety History of Any Multi-Drug Resistant Organisms: None Reported Past Surgical History: Joint Replacement Additional Past Surgical History / Comment(s): bilateral cataract removed, Both hips replaced, right heal shattered- screws/plates/ pins, cardiac cath 06/18/20 Past Anesthesia/Blood Transfusion Reactions: No Reported Reaction Past Psychological History: Anxiety, Bipolar, Depression, Schizoaffective Disorder Smoking Status: Current some day smoker Past Alcohol Use History: Abuse Past Drug Use History: None Reported Additional Drug Use History / Comment(s): huffing - Past Family History family Additional Family Medical History / Comment(s): anxiety Medications and Allergies Home Medications Medication Instructions Recorded Confirmed Type Acetaminophen Tab [Tylenol] 650 mg PO Q8HR PRN 14 Days tab 03/24/20 07/02/20 Rx DULoxetine HCL [Cymbalta] 60 mg PO BID 30 Days cap 03/24/20 07/02/20 Rx Fenofibrate [Lofibra] 160 mg PO DAILY 30 Days tab 03/24/20 07/02/20 Rx Fluticasone Nasal [place] [Flonase 2 spray EA NOSTRIL DAILY PRN #1 spr 03/24/20 07/02/20 Rx Nasal [place]] Gabapentin [Neurontin] 800 mg PO TID 30 Days cap 03/24/20 07/02/20 Rx Pantoprazole [Protonix] 40 mg PO HS 30 Days tablet. 03/24/20 07/02/20 Rx Pravastatin Sodium [Pravachol] 40 mg PO HS 30 Days tab 03/24/20 07/02/20 Rx Prazosin [Minipress] 2 mg PO HS 30 Days cap 03/24/20 07/02/20 Rx busPIRone HCL [Buspar] 30 mg PO BID 30 Days tab 03/24/20 07/02/20 Rx glipiZIDE [Glucotrol] 20 mg PO AC-BID #60 tablet 04/18/20 07/02/20 Rx Cyclobenzaprine [Flexeril] 10 mg PO TID PRN 06/15/20 07/02/20 History Gemfibrozil [Lopid] 600 mg PO AC-BID 06/15/20 07/02/20 History OLANZapine [ZyPREXA] 5 mg PO QAM 06/15/20 07/02/20 History lisinopriL 20 mg PO DAILY 06/15/20 07/02/20 History oxyCODONE HCL/ACETAMINOPHEN 1 tab PO TID PRN 06/15/20 07/02/20 History [Percocet 7.5-325 mg] Clotrimazole Cream [Lotrimin Cream] 1 applic TOPICAL DAILY 06/17/20 07/02/20 History Ergocalciferol (Vitamin D2) 1,250 mcg PO RODRÍGUEZ 06/17/20 07/02/20 History [Drisdol (50,000 Iu)] Melatonin 6 mg PO HS 06/17/20 07/02/20 History OLANZapine [ZyPREXA] 10 mg PO HS 06/17/20 07/02/20 History Sennosides [Senna] 8.6 mg PO BID PRN 06/17/20 07/02/20 History Aspirin 81 mg PO QAM chew 06/18/20 07/02/20 Rx Thiamine [Vitamin B-1] 100 mg PO BID-W/MEALS tab 06/18/20 07/02/20 Rx metFORMIN HCL 1,000 mg PO BID #60 tab 06/18/20 07/02/20 Rx Carvedilol [Coreg] 12.5 mg PO BID 07/02/20 07/02/20 History Nicotine 14Mg/24Hr Patch [Habitrol] 1 patch TRANSDERM DAILY PRN 07/02/20 07/02/20 History Allergies Allergy/AdvReac Type Severity Reaction Status Date / Time thimerosal Allergy Severe Rash/Hives/throat Verified 07/02/20 18:25 swelling neomycin Allergy Rash/Hives Verified 07/02/20 18:25 Physical Exam Vitals: Vital Signs Temp Pulse Resp BP Pulse Ox 07/04/20 09:13 99 F 94 16 106/67 95 Intake and Output 07/03/20 07/04/20 07/04/20 22:59 06:59 14:59 Other: # Voids 1 Weight 78.5 kg No acute distress S1-S2 heard Lungs clear Abdomen soft No edema Results - Lab Results Most recent lab results Calcium 9.6 mg/dL (8.4-10.2) 07/04/20 12:50 07/04/20 12:50 Assessment and Plan Assessment: #1 nonoliguric acute kidney injury suspect prerenal process and combination of lisinopril. #2 hyperkalemia secondary to acute kidney injury and lisinopril. #3 history of hypertension but currently low normal blood pressures. #4 major depression #5 metabolic acidosis secondary to acute kidney injury #6 suspected CK D stage III baseline creatinine and 0.2-1.5 MG per DL secondary to tubulointerstitial nephritis from chronic NSAID use. Plan: #1 agree with stopping lisinopril. Decrease lisinopril to 6.25 mg twice a day. #2 follow-up on CPK. Check urine analysis and protein creatinine ratio. #3 continue with normal saline at 130 ML's an hour. #4 add sodium bicarbonate by tomorrow if CO2 less than 22. #5 avoid nephrotoxic agents and hypotensive episodes. #6 do not restart lisinopril, with history of high normal potassium's in the past.
[2020-07-04] MEDS: INSULIN ASPART (NovoLOG) 100 UNIT/ML VIAL SQ SCH ×3 (14:37→20:13)
[2020-07-04 16:18] LABS: Glucose,Whole Blood 168 mg/dL (75-99)
[2020-07-04] MEDS ORDERED: GEMFIBROZIL 600 MG PO SCH (17:30)
[2020-07-04] MEDS ORDERED: carvediloL 12.5 MG TAB PO SCH (17:30)
[2020-07-04 17:45] LABS: Appearance,Urine Clear (Clear); Bilirubin,Urine Negative (Negative); Blood,Urine Negative (Negative); Color,Urine Light Yellow; Glucose,Urine (UA) 1+ (Negative); Ketones,Urine Negative (Negative); Leukocyte Esterase,Urine Negative (Negative); Nitrite,Urine Negative (Negative); Protein,Urine Negative (Negative); Specific Gravity,Urine 1.008 (1.001-1.035); Urobilinogen,Urine <2.0 mg/dL (<2.0)
[2020-07-04 17:53] LABS: Creatinine,Urine Random 32.7 mg/dL; Protein/Creatinine Ratio,Urine 0.367
[2020-07-04 20:03] LABS: Glucose,Whole Blood 143 mg/dL (75-99)
[2020-07-04] MEDS: PANTOPRAZOLE 40 MG TABLET PO SCH (20:13)
[2020-07-04] MEDS: OLANZapine 10 MG TAB PO SCH (20:13)
[2020-07-04] MEDS: GABAPENTIN 400 MG CAP PO SCH (20:13)
[2020-07-04] MEDS: busPIRone HCl 5 MG TAB PO SCH (20:13)
[2020-07-05] MEDS: LORazepam 0.5 MG TAB PO PRN ×3 (04:41→18:30)
[2020-07-05] MEDS: SODIUM CHLORIDE 0.9% 1,000 ML IV SCH ×3 (04:41→17:30)
[2020-07-05 06:12] LABS: Glucose,Whole Blood 139 mg/dL (75-99)
[2020-07-05] MEDS: carvediloL 6.25 MG TAB PO SCH ×2 (06:30→17:45)
[2020-07-05] MEDS: INSULIN ASPART (NovoLOG) 100 UNIT/ML VIAL SQ SCH ×4 (06:30→20:42)
[2020-07-05 07:27] LABS: Anisocytosis Slight; HGB 10.7 gm/dL (13.0-17.5); MCH 30.5 pg (25.0-35.0); MCHC 32.4 g/dL (31.0-37.0); MCV 94.1 fL (80.0-100.0); Mean Platelet Volume 6.7; Platelet Count 393 k/uL (150-450); RDW 16.4 % (11.5-15.5); WBC 5.4 k/uL (3.8-10.6)
[2020-07-05 07:50] LABS: Calcium 9.8 mg/dL (8.4-10.2); Potassium 5.4 mmol/L (3.5-5.1)
[2020-07-05] MEDS: DULoxetine HCL 30 MG CAPSULE.DR PO SCH (09:41)
[2020-07-05] MEDS: busPIRone HCl 5 MG TAB PO SCH ×2 (09:41→20:41)
[2020-07-05] MEDS: ASPIRIN 81 MG PO SCH (09:41)
[2020-07-05] MEDS: GABAPENTIN 400 MG CAP PO SCH ×2 (09:42→20:41)
[2020-07-05] MEDS: OLANZapine 5 MG TAB PO SCH (09:42)
[2020-07-05] MEDS: FENOFIBRATE 160 MG TAB PO SCH (09:42)
[2020-07-05] MEDS: SODIUM BICARBONATE TAB 650 MG TAB PO SCH ×2 (10:33→20:42)
[2020-07-05 12:09] LABS: Glucose,Whole Blood 118 mg/dL (75-99)
[2020-07-05 13:01] LABS: Calcium 9.6 mg/dL (8.4-10.2); Potassium 4.9 mmol/L (3.5-5.1)
--- NOTE | 2020-07-05 14:09 | P.DS ---
Providers Date of admission: 07/04/20 08:58 Expected date of discharge: 07/05/20 Attending physician: Natalie Byrd DO Consults: 07/04/20 09:01 Consult Physician Routine Consulting Provider: Rodger Betts Consult Reason/Comments: JACKIE, Hyperkalemia Do you want consulting provider notified?: Yes Primary care physician: Stated None Hospital Course: 1. JACKIE with hyperkalemia 2. DM II with neuropathy 3. HTN 4. HLD 5. Polysubstance Abuse 6. Chronic Anemia Patient is a 55-year-old male with diabetes mellitus type 2 [id number], hypertension, neuropathy, dyslipidemia, and chronic pain who initially presented to the emergency department secondary to worsening anxiety and depression. He had 5 aerosol cans a day prior. He was initially admitted to the mental health unit on 07/02/20. Once blood work was done there after admission it was noted that his creatinine was 2.43, BUN 52, and potassium 5.2. Patient was not having any chest pain, shortness breath, nausea, vomiting, diarrhea, or dizziness. At that point in time his nephrotoxic medications including lisinopril, metformin were held. Oral fluid hydration was encouraged. His glipizide had also been discontinued. He developed some hypoglycemia with sugar in the 50s. This is corrected by giving him apple juice. He underwent a renal ultrasound which was without distinct abnormality. Creatine kinase was 100. Hemoglobin A1c 8.4. Urinalysis was ordered but was unable to be obtained. On the morning of 07/04 repeat blood work was obtained which showed a potassium of 6, creatinine 1.8, BUN 47, sodium 136. The currently arrangements are made for admission to the selective care unit. Patient was started on bicarb by nephrology, and given IVF with improvement in Cr. K remained in high-normal range on day of discharge. Regarding his medications - metformin was continued as GFR improved. Glipizide was halved to 10mg BID from 20mg BID to avoid future hypoglycemic events, and lisinopril was discontinued. His existing home medications were renally adjusted on discharge. Assessment: Gen: awake, alert HEENT: normocephalic, atraumatic, good hearing acuity, moist mucous membranes Resp: good air exchange, breathing comfortably with no accessory muscle use CVS: good distal perfusion x 4, GI: soft, NTTP, ND : no SPT, no CVAT, camarena catheter not present MSK: no pitting edema, no clubbing Neuro: non-focal, moving all extremities Psych: cooperative, anxious mood Patient Condition at Discharge: Good Plan - Discharge Summary Discharge Rx Participant: No New Discharge Prescriptions: New busPIRone HCl [Buspar] 15 mg PO BID tab carvediloL [Coreg] 6.25 mg PO BID-W/MEALS tab DULoxetine HCL [Cymbalta] 90 mg PO DAILY capsule. Gabapentin [Neurontin] 400 mg PO BID cap Sodium Bicarbonate Tab 650 mg PO BID tab Continue Fluticasone Nasal [place] [Flonase Nasal [place]] 2 spray EA NOSTRIL DAILY PRN #1 spr PRN Reason: Allergy Symptoms Fenofibrate [Lofibra] 160 mg PO DAILY 30 Days tab Prazosin [Minipress] 2 mg PO HS 30 Days cap Pantoprazole [Protonix] 40 mg PO HS 30 Days tablet. Acetaminophen Tab [Tylenol] 650 mg PO Q8HR PRN 14 Days tab PRN Reason: Fever And/ Or Pain Pravastatin Sodium [Pravachol] 40 mg PO HS 30 Days tab Cyclobenzaprine [Flexeril] 10 mg PO TID PRN PRN Reason: Muscle Pain Gemfibrozil [Lopid] 600 mg PO AC-BID OLANZapine [ZyPREXA] 5 mg PO DAILY oxyCODONE HCL/ACETAMINOPHEN [Percocet 7.5-325 mg] 1 tab PO TID PRN PRN Reason: Pain OLANZapine [ZyPREXA] 10 mg PO HS Clotrimazole Cream [Lotrimin Cream] 1 applic TOPICAL DAILY Ergocalciferol (Vitamin D2) [Drisdol (50,000 Iu)] 1,250 mcg PO RODRÍGUEZ Sennosides [Senna] 8.6 mg PO BID PRN PRN Reason: Constipation Melatonin 6 mg PO HS Aspirin 81 mg PO QAM chew metFORMIN HCL 1,000 mg PO BID #60 tab Nicotine 14Mg/24Hr Patch [Habitrol] 1 patch TRANSDERM DAILY PRN PRN Reason: Nicotine Cravings Thiamine [Vitamin B-1] 100 mg PO AC-BID Changed glipiZIDE [Glucotrol] 10 mg PO AC-BID #60 tablet Discontinued Gabapentin [Neurontin] 800 mg PO TID 30 Days cap busPIRone HCL [Buspar] 30 mg PO BID 30 Days tab DULoxetine HCL [Cymbalta] 60 mg PO BID 30 Days cap lisinopriL 20 mg PO DAILY Carvedilol [Coreg] 12.5 mg PO BID Discharge Medication List Acetaminophen Tab [Tylenol] 650 mg PO Q8HR PRN 14 Days tab 03/24/20 [Rx] Fenofibrate [Lofibra] 160 mg PO DAILY 30 Days tab 03/24/20 [Rx] Fluticasone Nasal [place] [Flonase Nasal [place]] 2 spray EA NOSTRIL DAILY PRN #1 spr 03/24/20 [Rx] Pantoprazole [Protonix] 40 mg PO HS 30 Days tablet.dr 03/24/20 [Rx] Pravastatin Sodium [Pravachol] 40 mg PO HS 30 Days tab 03/24/20 [Rx] Prazosin [Minipress] 2 mg PO HS 30 Days cap 03/24/20 [Rx] Cyclobenzaprine [Flexeril] 10 mg PO TID PRN 06/15/20 [History] Gemfibrozil [Lopid] 600 mg PO AC-BID 06/15/20 [History] OLANZapine [ZyPREXA] 5 mg PO DAILY 06/15/20 [History] oxyCODONE HCL/ACETAMINOPHEN [Percocet 7.5-325 mg] 1 tab PO TID PRN 06/15/20 [History] Clotrimazole Cream [Lotrimin Cream] 1 applic TOPICAL DAILY 06/17/20 [History] Ergocalciferol (Vitamin D2) [Drisdol (50,000 Iu)] 1,250 mcg PO RODRÍGUEZ 06/17/20 [History] Melatonin 6 mg PO HS 06/17/20 [History] OLANZapine [ZyPREXA] 10 mg PO HS 06/17/20 [History] Sennosides [Senna] 8.6 mg PO BID PRN 06/17/20 [History] Aspirin 81 mg PO QAM chew 06/18/20 [Rx] metFORMIN HCL 1,000 mg PO BID #60 tab 06/18/20 [Rx] Nicotine 14Mg/24Hr Patch [Habitrol] 1 patch TRANSDERM DAILY PRN 07/02/20 [History] Thiamine [Vitamin B-1] 100 mg PO AC-BID 07/04/20 [History] DULoxetine HCL [Cymbalta] 90 mg PO DAILY capsule. 07/05/20 [Rx] Gabapentin [Neurontin] 400 mg PO BID cap 07/05/20 [Rx] Sodium Bicarbonate Tab 650 mg PO BID tab 07/05/20 [Rx] busPIRone HCl [Buspar] 15 mg PO BID tab 07/05/20 [Rx] carvediloL [Coreg] 6.25 mg PO BID-W/MEALS tab 07/05/20 [Rx] glipiZIDE [Glucotrol] 10 mg PO AC-BID #60 tablet 07/05/20 [Rx] Discharge Disposition: TRANSFER TO PSYCH HOSP/UNIT
[2020-07-05 16:47] LABS: Glucose,Whole Blood 184 mg/dL (75-99)
[2020-07-05 20:07] LABS: Glucose,Whole Blood 172 mg/dL (75-99)
[2020-07-05] MEDS: PANTOPRAZOLE 40 MG TABLET PO SCH (20:41)
[2020-07-05] MEDS: OLANZapine 10 MG TAB PO SCH (20:41)
--- NOTE | 2020-07-05 20:51 | PN ---
PROGRESS NOTE Patient is seen for followup for hyperkalemia and acute kidney injury. Serum creatinine has improved from 1.65 on initial admission to 1.37 now. Serum potassium has also improved. It was 5.4 early this morning. Repeat one later on today was 4.9. Previous potassium was 6.0 on 07/04/2020. Currently patient is off of the HOANG inhibitors. He did report history of urine retention. We will ensure that he is emptying his bladder. O/E Pt is awake, comfortable, not in acute distress. Alert and oriented x3. Lungs are clear Heart sounds are heard, no murmur Abdomen is soft, non tender. Ext. no edema. [employer] exam is grossly intact, no motor deficits. Labs show cr 1.37, K 5.4, repeat K 4.9 ASSESSMENT 1. JACKIE, pre renal, improved. R/o obstructive uropathy. Check post void bladder scan. 2. Metabolic acidosis, currently off metformin. Can resume as outpatient once acidosis has improved. Add sodium bicarb, as this will help with the potassium as well. 3. Chronic kidney disease with previous creatinine 1.5 to 1.2 mg/dL, mostly secondary to nephrosclerosis and chronic NSAID use. 4. Hyperkalemia, secondary to JACKIE, HOANG/I, improved. Started on sodium bicarb yesterday.Maintain low potassium diet. R/o urine retention. PLAN: Maintain off of HOANG inhibitors. Can resume metformin down the road as outpatient. Add oral sodium bicarb. Follow up as outpatient for CKD. Check post void scan. MMODL / IJN: [id number] / MTDMacey
[2020-07-06 01:26] VITALS: RESP 16
[2020-07-06] MEDS: SODIUM CHLORIDE 0.9% 1,000 ML IV SCH ×2 (01:36→06:32)
[2020-07-06] MEDS: LORazepam 0.5 MG TAB PO PRN ×2 (04:48→12:33)
[2020-07-06 06:15] LABS: Glucose,Whole Blood 149 mg/dL (75-99)
[2020-07-06] MEDS: carvediloL 6.25 MG TAB PO SCH ×2 (06:32→17:26)
[2020-07-06] MEDS: INSULIN ASPART (NovoLOG) 100 UNIT/ML VIAL SQ SCH ×3 (06:32→17:26)
[2020-07-06] MEDS: ASPIRIN 81 MG PO SCH (07:44)
[2020-07-06] MEDS: GABAPENTIN 400 MG CAP PO SCH (07:44)
[2020-07-06] MEDS: busPIRone HCl 5 MG TAB PO SCH (07:44)
[2020-07-06] MEDS: FENOFIBRATE 160 MG TAB PO SCH (07:45)
[2020-07-06] MEDS: SODIUM BICARBONATE TAB 650 MG TAB PO SCH (07:45)
[2020-07-06] MEDS: DULoxetine HCL 30 MG CAPSULE.DR PO SCH (07:45)
[2020-07-06] MEDS: OLANZapine 5 MG TAB PO SCH (07:49)
[2020-07-06 11:25] VITALS: BP 132/89; PULSE 101; TEMP 98.1
[2020-07-06 12:02] LABS: Glucose,Whole Blood 142 mg/dL (75-99)
--- NOTE | 2020-07-06 13:22 | P.CN ---
Psychiatric Consult - . Consult date: 07/06/20 Consult:: IDENTIFYING DATA: This patient is a , unemployed, 55-year-old male who was initially admitted for depression and suicidal ideation in the context of alcohol and inhalant substance abuse who was transferred to the medical floor for management of acute kidney injury and hyperkalemia. HISTORY OF PRESENT ILLNESS: The patient presented to the hospital 07/02/2020 with a chief complaint of depression and suicidal ideation. Prior to that admission, the patient admitted to huffing prior to arrival. The patient reported to the emergency physician and he has been expressing increased anxiety and had thoughts of suicide. The patient was subsequently admitted to the psychiatric unit. Upon arrival to the psychiatric unit, who is noted that the patient had hyperkalemia and the blood work displayed acute kidney injury and the patient was admitted to the medical floor. Patient was evaluated by nephrology and the patient's lisinopril and metformin were held. Lisinopril was discontinued. The patient was then medically cleared. Upon evaluation, the patient does endorse significant symptoms of depression and elevated anxiety. He states that his been feeling overwhelmed and sad symptoms of anhedonia, hopelessness, helplessness, low mood, difficulty sleeping, and chronic suicidal ideation. This occurs in the context of substance abuse. The patient has been huffing 6 to 9 cans per day. He was previously prescribed Ativan earlier this winter but since discontinuing Ativan and the patient has been huffing on almost a daily basis as well as drinking up to a half pint of alcohol per day. The patient is currently requesting admission to the inpatient psychiatric unit to "get my medications right." PAST PSYCHIATRIC HISTORY: Patient has a history of schizoaffective disorder, major depressive disorder, generalized anxiety disorder, and substance abuse. Past psychotropic medications include Zyprexa, Cymbalta, BuSpar, Valium, Seroquel, disulfiram, and Ativan. This patient has had about 10-12 inpatient psychiatric admissions and was most recently admitted to the psychiatric unit on 03/16/2020. The patient follows with Dr. Waller through [facility]. He denies any prior attempts at suicide. PAST MEDICAL HISTORY: Diabetes mellitus, type II, obstructive sleep apnea, hypertension, bilateral hip replacement in 2017, neuropathy. ALLERGIES: Thimerosal, neomycin CHEMICAL DEPENDENCY HISTORY: Patient reports huffing daily prior to this admission. He also reports drinking up to a pint of hard liquor per day. He has previously stayed at [facility] for his substance use. FAMILY PSYCHIATRIC/SUBSTANCE USE HISTORY: The patient reports that his sisters suffer from anxiety. He reports an unspecified mental illness from his father. He does report substance abuse history from his father. SOCIAL HISTORY: Patient was born and raised in [place]. 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 His current on disability, is , and currently lives with his sister. He has one son. MENTAL STATUS EXAM: General Appearance: Patient appears to be stated age is alert, pleasant, and cooperative. Patient appears to have fair hygiene and grooming wearing hospital gown with fair eye contact. Multiple tattoos noted. Bald and with a hahn. Behavior: Patient is calmly lying in bed without any agitated behavior. Speech: Patient's speech is fluent and nonpressured. Mood/Affect: Patient reports their mood is "depressed and anxious", affect is congruent but slightly expansive in range. Suicidality/Homicidality: Patient is currently endorsing suicidal ideation but no homicidal ideation, intention, and/or plan. Perceptions: Patient denies any visual hallucinations and denies any auditory hallucinations Though content/process: There is no evidence of any delusional thought content and thought process is linear and goal-directed. Memory and concentration: AOX3, grossly intact for the purposes of this session. Can spell "WORLD" backwards Judgment and insight: poor IMPRESSIONS: Mood disorder, unspecified, rule out secondary to polysubstance abuse versus bipolar disorder. Anxiety disorder, unspecified Inhalant abuse Alcohol Use disorder Nicotine dependence PLAN: -At this time patient DOES meet criteria for inpatient psychiatric admission. -Delirium precautions recommended with patient including - avoiding use of narcotics and QUARTER INSPECTOR sedatives, limit anticholinergic medications when possible, frequent re-orientation, minimize use of restraints, open window shades during the day and close them at night -Would recommend the following medication changes/additions: We will decrease Cymbalta to 60 mg by mouth daily due to concern of kidney injury. Continue BuSpar 15 mg by mouth twice a day for anxiety Continue gabapentin 400 mg by mouth twice a day Continue melatonin 3 mg by mouth at bedtime when necessary for insomnia Decrease Zyprexa to 10 mg by mouth at bedtime for management of mood disorder/mood stabilization -Cannot leave AMA at this time. Patient will need a petition and certification if attempting to leave AMA. -When medically stable, patient is eligible for transfer to a psych bed when available. -Psychiatry will sign off at this point, please contact with any questions. 07/06/20 13:06
--- NOTE | 2020-07-06 16:30 | PN ---
PROGRESS NOTE Patient is seen for followup for acute kidney injury. The patient's renal function has improved with creatinine down to 1.3. He is comfortable. Denies any significant complaints. His creatinine had peaked at 2.43 mg/dL. Serum potassium has improved as well. The patient was started on sodium bicarb yesterday and there are plans for possible discharge to inpatient psych today. PHYSICAL EXAMINATION: Patient is comfortable, not in any acute distress. Blood pressure was 124/81, heart rate 114 per minute. He is afebrile. EXAMINATION OF THE HEART: S1, S2. EXAMINATION OF THE LUNGS: Bilateral breath sounds are heard. Abdomen is soft, nontender. Examination of lower extremities shows no evidence of edema. ELECTROLESS PLATER exam grossly intact. LABS: Labs show sodium 138, potassium 4.9, serum creatinine 1.37 yesterday on 07/05/2020. ASSESSMENT: 1. Acute kidney injury, currently improved. The patient is nonoliguric. He is off HOANG inhibitors. Creatinine down to about 1.3 from 2.4 at peak. 2. Chronic kidney disease secondary to nephrosclerosis, chronic use of NSAIDs. Baseline creatinine 1.5 to 1.2, NKF stage 3. 3. Metabolic acidosis maintained on sodium bicarb, started yesterday, currently off of metformin. 4. Hyperkalemia associated with acute kidney injury and some degree of acidosis, currently improved. Continue with the sodium bicarb for now. PLAN: Continue with sodium bicarb. Continue to monitor labs and maintain low-potassium diet. Avoid constipation. MMODL / IJN: [id number] /
[2020-07-06 17:00] LABS: Glucose,Whole Blood 191 mg/dL (75-99)
[2020-07-07] MEDS ORDERED: DULoxetine HCL 60 MG CAPSULE.DR PO SCH (09:00)
== END 2020-07-06 17:46 | DRG 683 ==
LOC: 3SCARD 08:58
PROVIDERS: ADMIT Internal Medicine; ATTEND Internal Medicine
DX: N17.9 Acute kidney failure, unspecified (principal); R45.851 Suicidal ideations; E87.2 Acidosis; E11.649 Type 2 diabetes mellitus with hypoglycemia without coma; D63.1 Anemia in chronic kidney disease; F25.9 Schizoaffective disorder, unspecified; E11.40 Type 2 diabetes mellitus with diabetic neuropathy, unspecified; E11.22 Type 2 diabetes mellitus with diabetic chronic kidney disease; F31.9 Bipolar disorder, unspecified; F39 Unspecified mood [affective] disorder; F18.10 Inhalant abuse, uncomplicated; N18.30 Chronic kidney disease, stage 3 unspecified; E87.5 Hyperkalemia; E78.5 Hyperlipidemia, unspecified; G89.29 Other chronic pain; I12.9 Hypertensive chronic kidney disease with stage 1 through stage 4 chronic kidney disease, or unspecified chronic kidney disease; F17.200 Nicotine dependence, unspecified, uncomplicated; N12 Tubulo-interstitial nephritis, not specified as acute or chronic; F41.1 Generalized anxiety disorder; G47.33 Obstructive sleep apnea (adult) (pediatric); F10.10 Alcohol abuse, uncomplicated; G47.00 Insomnia, unspecified; T39.395A Adverse effect of other nonsteroidal anti-inflammatory drugs [NSAID], initial encounter; R33.9 Retention of urine, unspecified; Z56.0 Unemployment, unspecified; Z79.899 Other long term (current) drug therapy; Z79.84 Long term (current) use of oral hypoglycemic drugs; Z79.82 Long term (current) use of aspirin; Z96.643 Presence of artificial hip joint, bilateral; Z98.42 Cataract extraction status, left eye; Z98.41 Cataract extraction status, right eye; Z98.890 Other specified postprocedural states; Z86.16 Personal history of COVID-19; Z88.3 Allergy status to other anti-infective agents; Z88.8 Allergy status to other drugs, medicaments and biological substances; Z81.8 Family history of other mental and behavioral disorders
CPT/HCPCS: 80048; 81003; 82570; 84156; 85027

== ENCOUNTER 2020-07-06 16:54 | Inpatient (IN) | payer MEDICARE, MEDICAID ==
[2020-07-06] MEDS ORDERED: oxyCODONE-APAP 7.5-325MG 1 EACH TAB PO PRN (17:18)
[2020-07-06] MEDS ORDERED: FLUTICASONE 50MCG/SPRAY NASAL 16GM EA NOSTRIL PRN (17:18)
[2020-07-06] MEDS ORDERED: MELATONIN 3 MG TABLET PO PRN (17:24)
[2020-07-06] MEDS ORDERED: MAG HYDROX/AL HYDROX/SIMETH 30 ML CUP PO PRN (17:26)
[2020-07-06] MEDS ORDERED: MAGNESIUM HYDROXIDE 2,400 MG/10 ML CUP PO PRN (17:26)
[2020-07-06] MEDS ORDERED: HALOPERIDOL LACTATE 5 MG/ML 1 ML VIAL IM PRN (17:27)
[2020-07-06] MEDS: INSULIN ASPART (NovoLOG) 100 UNIT/ML VIAL SQ SCH ×2 (18:42→21:01)
[2020-07-06 20:22] LABS: Glucose,Whole Blood 158 mg/dL (75-99)
[2020-07-06] MEDS: busPIRone HCl 5 MG TAB PO SCH (20:26)
[2020-07-06] MEDS: OLANZapine 10 MG TAB PO SCH (20:26)
[2020-07-06] MEDS: GABAPENTIN 400 MG CAP PO SCH (20:26)
[2020-07-06] MEDS: SODIUM BICARBONATE TAB 650 MG TAB PO SCH (21:40)
[2020-07-07 07:51] LABS: Glucose,Whole Blood 189 mg/dL (75-99)
[2020-07-07] MEDS: GABAPENTIN 400 MG CAP PO SCH ×2 (08:06→20:20)
[2020-07-07] MEDS: INSULIN ASPART (NovoLOG) 100 UNIT/ML VIAL SQ SCH ×4 (08:06→20:21)
[2020-07-07] MEDS: SODIUM BICARBONATE TAB 650 MG TAB PO SCH ×2 (08:07→20:20)
[2020-07-07] MEDS: busPIRone HCl 5 MG TAB PO SCH ×2 (08:07→20:20)
[2020-07-07] MEDS: ASPIRIN 81 MG PO SCH (08:07)
[2020-07-07] MEDS: FENOFIBRATE 160 MG TAB PO SCH (08:07)
[2020-07-07] MEDS: NICOTINE 14MG/24HR PATCH TRANSDERM SCH ×2 (08:08→09:27)
[2020-07-07] MEDS: carvediloL 6.25 MG TAB PO SCH ×2 (08:08→16:35)
[2020-07-07] MEDS: LORazepam 1 MG TAB PO PRN ×2 (08:43→16:35)
[2020-07-07] MEDS: amLODIPine 10 MG TAB PO SCH (08:56)
[2020-07-07] MEDS ORDERED: DULoxetine HCL 60 MG CAPSULE.DR PO SCH (09:00)
[2020-07-07 09:11] LABS: Calcium 10.6 mg/dL (8.4-10.2); Potassium 5.1 mmol/L (3.5-5.1)
--- NOTE | 2020-07-07 09:34 | P.HP ---
Psychiatric H&P - . H&P Date: 07/07/20 History & Physical: Allergies Allergy/AdvReac Type Severity Reaction Status Date / Time thimerosal Allergy Severe Rash/Hives/throat Verified 07/06/20 18:33 swelling neomycin Allergy Rash/Hives Verified 07/06/20 18:33 Vital Signs Temp 97.5 F L 07/07/20 06:48 Pulse 120 H 07/07/20 08:11 Resp 16 07/07/20 06:48 BP 165/96 07/07/20 08:11 Pulse Ox Intake & Output 07/06/20 07/07/20 07/07/20 18:59 06:59 18:59 Weight 81 kg Laboratory Last Values Sodium 136 mmol/L (137-145) L 07/07/20 07:51 Potassium 5.1 mmol/L (3.5-5.1) 07/07/20 07:51 Chloride 101 mmol/L (98-107) 07/07/20 07:51 Carbon Dioxide 22 mmol/L (22-30) 07/07/20 07:51 Anion Gap 13 mmol/L 07/07/20 07:51 BUN 22 mg/dL (9-20) H 07/07/20 07:51 Creatinine 1.31 mg/dL (0.66-1.25) H 07/07/20 07:51 Est GFR (CKD-EPI)AfAm 70 (>60 ml/min/1.73 sqM) 07/07/20 07:51 Est GFR (CKD-EPI)NonAf 61 (>60 ml/min/1.73 sqM) 07/07/20 07:51 Glucose 176 mg/dL (74-99) H 07/07/20 07:51 POC Glucose (mg/dL) 189 mg/dL (75-99) H 07/07/20 07:48 POC Glu Gun Examiner ID Elvin Roblero 07/07/20 07:48 Calcium 10.6 mg/dL (8.4-10.2) H 07/07/20 07:51 07/07/20 09:21 IDENTIFYING DATA: Patient is a , on disability, 55-year-old male who was initially admitted for depression suicidal ideation in the context of alcohol and inhalant abuse who is now discharged from the medical floor after being managed for acute kidney injury and hyperkalemia. HPI: Patient presented to the hospital on 07/02/2020 with a chief complaint depression and suicidal ideation. Prior to that admission, the patient reports that he has been feeling increasingly anxious and depressed over the past month. He states that the panic attacks have been occurring every day and would last hours at a time. He reports that during these panic attacks he would experience "feeling like I'm coming out of my skin" elevated anxiety, palpitations, and general and he is. He reports fear of the next attack. He states that it is these panic attacks that push him toward substance use. He states that he has been huffing 4-5 cans of chemical dusters. He reports he does this to alleviate his anxiety. On top of huffing, the patient does report to increased alcohol use saying that he would drink upwards to a pint of hard liquor multiple times per week. The patient reports that he has been feeling increasing depression. He reports anhedonia, low mood, low motivation, and suicidal ideation with a plan to cut his wrists. He reports that he did not attempt and reports no prior attempts at suicide. The patient does not endorse any significant symptoms of bipolar disorder at this time. He reports no flight of ideas, racing thoughts, or increased goal-directed behavior. He denies any auditory or visual hallucinations. He denies any paranoia or delusions. PAST PSYCHIATRIC HISTORY: Patient states that he has a history of schizoaffective disorder, major depressive disorder, generalized anxiety disorder, and substance abuse. The patient has had previous trials of Zyprexa, Cymbalta, BuSpar, Valium, Seroquel, disulfiram, and Ativan. He vaguely recalls being on Prozac in the past. The patient has had multiple psychiatric admissions and was most recently admitted to this psychiatric unit on 03/15. Patient follows with [facility] and reports seeing his therapist weekly. He denies any prior attempts at suicide. PMH: Diabetes mellitus type 2, obstructive sleep apnea, hypertension, bilateral hip replacement in 2017, neuropathy, acute kidney injury ALLERGIES: Thimerosal, neomycin CHEMICAL DEPENDENCY HISTORY: Patient reports huffing 4-5 cans per day over the past month. He reports heavy alcohol use, approximately a pint of hard liquor most days per week over the past month. He reports smoking a quarter pack per day of tobacco. He denies any other illicit drug use or marijuana use. The patient reports multiple inpatient rehabilitation admissions. His last rehabilitation admission was in February 2020 to [facility] for his alcohol and drug use. FAMILY PSYCHIATRIC/SUBSTANCE USE HISTORY: The patient reports that his sister has been diagnosed with anxiety. He reports that his father had a psychotic break when he was in pharmacy school. He also reports that his father abused Valium. SOCIAL HISTORY: Patient was born and raised in [place], [place]. 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 He reports he stopped working due to back and hip problems. He is currently on disability. He is since 2010. He has one 31-year-old son. He has 2 sisters, one he currently lives with. MENTAL STATUS EXAM: General Appearance: Patient appears to be stated age is alert, directable, and attempts to cooperate. Hygiene and grooming appear fair. Patient has extensive facial hair and a prominent mustache. Behavior: Patient is seated without any agitated behavior. Psychomotor activity appears slightly elevated. Patient appears to fidget while in his chair. Eye contact is appropriate. Speech: Patient's speech is fluent and nonpressured. Mood/Affect: Patient reports their mood is very anxious, affect is congruent and nervous. Suicidality/Homicidality: Patient denies having any homicidal ideation intent or plan. Patient admits to suicidal ideation with a plan but no intention. Perceptions: Patient denies any visual hallucinations and denies any auditory hallucinations Though content/process: There is no evidence of any delusional thought content and thought process is linear and goal-directed. Memory and concentration: AOX3, grossly intact for the purposes of this session. Can spell "WORLD" backwards Judgment and insight: Fair STRENGTHS/WEAKNESSES: Strength is that the patient has stable housing and stable income. Weakness is that patient engages in significant substance use and has poor coping skills. INTELLECT: average IMPRESSIONS: Mood disorder, unspecified, rule out secondary to polysubstance abuse Panic disorder Generalized anxiety disorder Inhalant abuse Alcohol use disorder Nicotine dependence PLAN: -Patient is admitted under voluntary status to MHU for stabilization of psychiatric symptoms and safety. Patient signed adult voluntary form and medication consent and is placed in patient's chart. -Medications : Discontinue Cymbalta at this time. We will start Paxil 20 mg by mouth daily for management of depression/anxiety/panic disorder. Continue BuSpar 15 mg by mouth twice a day for anxiety Continue gabapentin 400 mg by mouth twice a day for neuropathy/off label use for anxiety Continue Zyprexa 10 mg by mouth at bedtime for mood augmentation Start melatonin 5 mg by mouth at bedtime for insomnia. -Ativan and Haldol PRN for agitation/aggression -Patient was counselled on substance abuse and desired to cut back on use -Patient was informed of the risks, benefits and side effects of the medication and patient verbally consented to taking the medications. Patient signed med consent form and was placed in chart. -Internal Medicine consult to perform medical evaluation and physical. -NRT - nicotine patch -SW on board for discharge planning. Encourage patient to participate in groups to work on coping skills.
[2020-07-07 12:42] LABS: Glucose,Whole Blood 127 mg/dL (75-99)
[2020-07-07] MEDS: ACETAMINOPHEN TAB 325 MG TAB PO PRN (14:31)
[2020-07-07 17:42] LABS: Glucose,Whole Blood 150 mg/dL (75-99)
--- NOTE | 2020-07-07 18:38 | P.MDCNMH ---
History of Present Illness H&P Date: 07/07/20 Chief Complaint: Medical Clearance for Psychiatry 55 year old man with history of DM, MARRY, HTN, with recent admission to the medical floor for JACKIE and hyperkalemia. Psychiatry consulted medicine for medical management. Pt has no concerns at this time. Reports anxiety and depression, but no pain at this time. Review of Systems All Systems reviewed and pertinent positives and negatives noted in HPI, all other symptoms are negative 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, neuropathy, anxiety History of Any Multi-Drug Resistant Organisms: None Reported Past Surgical History: Joint Replacement Additional Past Surgical History / Comment(s): bilateral cataract removed, Both hips replaced, right heal shattered- screws/plates/ pins, cardiac cath 06/18/20 Past Anesthesia/Blood Transfusion Reactions: No Reported Reaction Past Psychological History: Anxiety, Bipolar, Depression, Schizoaffective Di sorder Smoking Status: Current some day smoker Past Alcohol Use History: Abuse Past Drug Use History: None Reported Additional Drug Use History / Comment(s): huffing - Past Family History family Additional Family Medical History / Comment(s): anxiety Medications and Allergies Home Medications Medication Instructions Recorded Confirmed Type Acetaminophen Tab [Tylenol] 650 mg PO Q8HR PRN 14 Days tab 03/24/20 07/06/20 Rx Fenofibrate [Lofibra] 160 mg PO DAILY 30 Days tab 03/24/20 07/06/20 Rx Fluticasone Nasal [place] [Flonase 2 spray EA NOSTRIL DAILY PRN #1 spr 03/24/20 07/06/20 Rx Nasal [place]] Pantoprazole [Protonix] 40 mg PO HS 30 Days tablet. 03/24/20 07/06/20 Rx Pravastatin Sodium [Pravachol] 40 mg PO HS 30 Days tab 03/24/20 07/06/20 Rx Prazosin [Minipress] 2 mg PO HS 30 Days cap 03/24/20 07/06/20 Rx Cyclobenzaprine [Flexeril] 10 mg PO TID PRN 06/15/20 07/06/20 History Gemfibrozil [Lopid] 600 mg PO AC-BID 06/15/20 07/06/20 History OLANZapine [ZyPREXA] 5 mg PO DAILY 06/15/20 07/06/20 History oxyCODONE HCL/ACETAMINOPHEN 1 tab PO TID PRN 06/15/20 07/06/20 History [Percocet 7.5-325 mg] Clotrimazole Cream [Lotrimin Cream] 1 applic TOPICAL DAILY 06/17/20 07/06/20 History Ergocalciferol (Vitamin D2) 1,250 mcg PO [id number] 06/17/20 07/06/20 History [Drisdol (50,000 Iu)] Melatonin 6 mg PO HS 06/17/20 07/06/20 History OLANZapine [ZyPREXA] 10 mg PO HS 06/17/20 07/06/20 History Sennosides [Senna] 8.6 mg PO BID PRN 06/17/20 07/06/20 History Aspirin 81 mg PO QAM chew 06/18/20 07/06/20 Rx metFORMIN HCL 1,000 mg PO BID #60 tab 06/18/20 07/06/20 Rx Nicotine 14Mg/24Hr Patch [Habitrol] 1 patch TRANSDERM DAILY PRN 07/02/20 07/06/20 History Thiamine [Vitamin B-1] 100 mg PO AC-BID 07/04/20 07/06/20 History DULoxetine HCL [Cymbalta] 90 mg PO DAILY capsule. 07/05/20 07/06/20 Rx Gabapentin [Neurontin] 400 mg PO BID cap 07/05/20 07/06/20 Rx Sodium Bicarbonate Tab 650 mg PO BID tab 07/05/20 07/06/20 Rx busPIRone HCl [Buspar] 15 mg PO BID tab 07/05/20 07/06/20 Rx carvediloL [Coreg] 6.25 mg PO BID-W/MEALS tab 07/05/20 07/06/20 Rx glipiZIDE [Glucotrol] 10 mg PO AC-BID #60 tablet 07/05/20 07/06/20 Rx Allergies Allergy/AdvReac Type Severity Reaction Status Date / Time thimerosal Allergy Severe Rash/Hives/throat Verified 07/06/20 18:33 swelling neomycin Allergy Rash/Hives Verified 07/06/20 18:33 Physical Exam Osteopathic Statement: *. No significant issues noted on an osteopathic structural exam other than those noted in the History and Physical/Consult. Vitals: Vital Signs Temp Pulse Resp BP 07/07/20 16:36 126 H 118/80 07/07/20 11:26 97.0 F L 07/07/20 08:11 120 H 165/96 07/07/20 06:48 97.5 F L 116 H 16 129/84 07/06/20 18:13 98.1 F 98 16 157/104 Gen: awake, alert HEENT: normocephalic, atraumatic, good hearing acuity, moist mucous membranes Resp: good air exchange, breathing comfortably with no accessory muscle use CVS: good distal perfusion x 4, GI: soft, NTTP, ND : no SPT, no CVAT, camarena catheter not present MSK: no pitting edema, no clubbing Neuro: non-focal, moving all extremities, cranial nerves II through XII are intact Psych: cooperative, euthymic mood Cranial Nerve Examination - Cranial Nerves Cranial Nerve II- Optic: Intact Cranial Nerve III- Oculomotor: Intact Cranial Nerve IV- Trochlear: Intact Cranial Nerve V- Trigeminal: Intact Cranial Nerve - Abducens: Intact Cranial Nerve VII- Facial: Intact Cranial Nerve VIII- Auditory: Intact Cranial Nerve IX- Glossopharyngeal: Intact Cranial Nerve X- Vagus: Intact Cranial Nerve XI- Accessory: Intact Cranial Nerve XII- Hypoglossal: Intact Results CBC & Chem 7: 07/07/20 07:51 Labs: Abnormal Lab Results - Last 24 Hours (Table) 07/06/20 07/07/20 07/07/20 Range/Units 20:10 07:48 07:51 Sodium 136 L (137-145) mmol/L BUN 22 H (9-20) mg/dL Creatinine 1.31 H (0.66-1.25) mg/dL Glucose 176 H (74-99) mg/dL POC Glucose (mg/dL) 158 H 189 H (75-99) mg/dL Calcium 10.6 H (8.4-10.2) mg/dL 07/07/20 Range/Units 12:41 Sodium (137-145) mmol/L BUN (9-20) mg/dL Creatinine (0.66-1.25) mg/dL Glucose (74-99) mg/dL POC Glucose (mg/dL) 127 H (75-99) mg/dL Calcium (8.4-10.2) mg/dL Assessment and Plan Assessment: 1. Hypertension 2. MARRY 3. DM II 4. Anxiety 5. MDD 55 year old man with HTN, MARRY, DMII, Anxiety, MDD who is now in the MHU for Depression and SI. Medicine asked to manage medical conditions. Plan: patient's medical conditions are stable continue home meds on discharge from MHU, patient may continue metformin and glipizide at half his original home dose (see my previous dc summary) will need follow up BMP check tomorrow AM to ensure K is still controlled, and Cr improving/stable Remainder of care per primary team
[2020-07-07 19:59] LABS: Glucose,Whole Blood 207 mg/dL (75-99)
[2020-07-07] MEDS: OLANZapine 10 MG TAB PO SCH (20:20)
[2020-07-07] MEDS ORDERED: MELATONIN 5 MG TABLET PO SCH (21:00)
[2020-07-08] MEDS: LORazepam 1 MG TAB PO PRN (05:59)
[2020-07-08 07:49] LABS: Glucose,Whole Blood 158 mg/dL (75-99)
[2020-07-08] MEDS: INSULIN ASPART (NovoLOG) 100 UNIT/ML VIAL SQ SCH ×4 (07:57→20:35)
[2020-07-08] MEDS: FENOFIBRATE 160 MG TAB PO SCH (07:58)
[2020-07-08] MEDS: carvediloL 6.25 MG TAB PO SCH ×2 (07:58→17:27)
[2020-07-08] MEDS: GABAPENTIN 400 MG CAP PO SCH ×2 (07:58→20:32)
[2020-07-08] MEDS: SODIUM BICARBONATE TAB 650 MG TAB PO SCH ×2 (07:58→20:33)
[2020-07-08] MEDS: NICOTINE 14MG/24HR PATCH TRANSDERM SCH (07:58)
[2020-07-08] MEDS: busPIRone HCl 5 MG TAB PO SCH ×2 (07:58→20:32)
[2020-07-08] MEDS: ASPIRIN 81 MG PO SCH (07:58)
[2020-07-08] MEDS: amLODIPine 10 MG TAB PO SCH (07:58)
[2020-07-08] MEDS ORDERED: PARoxetine 20 MG TAB PO SCH (09:00)
[2020-07-08 10:30] LABS: Calcium 10.2 mg/dL (8.4-10.2); Potassium 5.6 mmol/L (3.5-5.1)
--- NOTE | 2020-07-08 11:39 | P.PN ---
Progress Note - Text Progress Note Date: 07/08/20 Interval History: Patient was seen wandering the hallways and was directable and agreeable to speak with machine sign writer in the office. The patient reports that he continues to experience elevated anxiety. He states that he had a panic attack last night. He reports that this was triggered by a nightmare that he had related to some previous traumas that he has experienced in his life. Despite all of this, the patient is not reporting any significant symptoms of suicidal or homicidal ideation, intention, and/or plan today. He denies any auditory or visual hallucinations. Denying any paranoia or delusions. He has been adherent with his medications and is not reporting any significant side effects at this time. We discussed at length the tempering of his expectations in terms of managing his anxiety. The patient was counseled at great length that substance abuse will always interfere with his ability to reach homeostasis in terms of mood and anxiety symptoms. Mental Status Exam: General Appearance: Patient appears to be stated age is alert, directable, and cooperative. Hygiene and grooming appear fair. Behavior: Patient is calmly seated without any agitated behavior. Psychomotor activity appears normal. Eye contact is appropriate. Speech: Patient's speech is fluent and nonpressured. Mood/Affect: Mood is described as anxious, affect is congruent and constricted. Suicidality/Homicidality: Patient denies having any suicidal or homicidal ideation intent or plan. Perceptions: Patient denies any visual hallucinations and denies any auditory hallucinations Though content/process: There is no evidence of any delusional thought content and thought process is linear and goal-directed. 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 Panic disorder Generalized anxiety disorder Inhalant abuse Alcohol use disorder Nicotine dependence Plan: -Patient continues to meet criteria for inpatient psychiatric admission for symptom stabilization and safety. Patient has signed adult voluntary form and medication consent and was placed in patient's chart. -Medications: Increase Paxil to 40 mg by mouth daily for management of depression/anxiety/panic disorder. Continue BuSpar 15 mg by mouth twice a day for anxiety Continue gabapentin 400 mg by mouth twice a day for neuropathy/off label use for anxiety Continue Zyprexa 10 mg by mouth at bedtime for mood augmentation Discontinue melatonin due to vivid dreams/nightmares. -When necessary Vistaril and Haldol for agitation/aggression. -NRT - nicotine patch -SW on board for discharge planning. Encouraged the patient to participate in milieu.
[2020-07-08] MEDS: hydrOXYzine pamoate 25 MG CAP PO PRN ×2 (12:13→17:27)
[2020-07-08 12:33] LABS: Glucose,Whole Blood 123 mg/dL (75-99)
[2020-07-08] MEDS: ACETAMINOPHEN TAB 325 MG TAB PO PRN (14:07)
[2020-07-08 17:39] LABS: Glucose,Whole Blood 144 mg/dL (75-99)
[2020-07-08 20:02] LABS: Glucose,Whole Blood 210 mg/dL (75-99)
[2020-07-08] MEDS: OLANZapine 10 MG TAB PO SCH (20:32)
[2020-07-08] MEDS ORDERED: SODIUM POLYSTYRENE SULFONATE 15 GM/60 ML BOTTLE PO STA (21:03)
[2020-07-09] MEDS: hydrOXYzine pamoate 25 MG CAP PO PRN ×4 (05:47→22:08)
[2020-07-09 07:41] LABS: Potassium 4.6 mmol/L (3.5-5.1)
[2020-07-09 07:46] LABS: Glucose,Whole Blood 186 mg/dL (75-99)
[2020-07-09] MEDS: INSULIN ASPART (NovoLOG) 100 UNIT/ML VIAL SQ SCH ×4 (07:54→20:18)
[2020-07-09] MEDS: NICOTINE 14MG/24HR PATCH TRANSDERM SCH (07:55)
[2020-07-09] MEDS: amLODIPine 10 MG TAB PO SCH (07:55)
[2020-07-09] MEDS: PARoxetine 20 MG TAB PO SCH (07:56)
[2020-07-09] MEDS: carvediloL 6.25 MG TAB PO SCH ×2 (07:56→17:53)
[2020-07-09] MEDS: busPIRone HCl 5 MG TAB PO SCH (07:56)
[2020-07-09] MEDS: ASPIRIN 81 MG PO SCH (07:56)
[2020-07-09] MEDS: GABAPENTIN 400 MG CAP PO SCH ×2 (07:56→20:17)
[2020-07-09] MEDS: SODIUM BICARBONATE TAB 650 MG TAB PO SCH ×2 (07:57→20:17)
[2020-07-09] MEDS: FENOFIBRATE 160 MG TAB PO SCH (07:57)
[2020-07-09] MEDS ORDERED: hydrOXYzine pamoate 25 MG CAP PO STA (09:37)
[2020-07-09] MEDS ORDERED: cloNIDine HCL 0.1 MG TAB PO ONE (12:42)
[2020-07-09 12:44] LABS: Glucose,Whole Blood 166 mg/dL (75-99)
--- NOTE | 2020-07-09 12:53 | P.PN ---
Progress Note - Text Progress Note Date: 07/09/20 Interval History: Patient was seen wandering the hallways and was directable and agreeable to speak with magnetic tape typewriter operator in the office. The patient is reporting that he is expressing a panic attack. Despite this, the patient does not appear to be hyperventilating, perspiration, or appear in any acute distress. Patient states that he feels elevated anxiety and is unable to identify what is the trigger. He states that he "cannot live this way." He reports that if he was to go home that he feels like he would hurt himself. He is not reporting any homicidal ideation, intention, and/or plan. He is not reporting any auditory or visual hallucinations. The patient does admit that he has been using illicit Valium prior to this admission. The patient has been downplaying his substance abuse. Mental Status Exam: General Appearance: Patient appears to be stated age is alert, directable, and cooperative. Hygiene and grooming appear fair. Prominent mustache. Behavior: Patient is calmly seated without any agitated behavior. Psychomotor activity appears slightly elevated. Eye contact is appropriate. Speech: Patient's speech is fluent and nonpressured. Mood/Affect: Mood is described as anxious, affect is nervous and upset. Suicidality/Homicidality: Patient states that he would hurt himself given his current state. He is not reporting any homicidal ideation, intention, and/or plan. Perceptions: Patient denies any visual hallucinations and denies any auditory nguyen llucinations Though content/process: There is no evidence of any delusional thought content and thought process is linear and goal-directed. 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 Panic disorder Generalized anxiety disorder Inhalant abuse Alcohol use disorder Nicotine dependence Plan: -Patient continues to meet criteria for inpatient psychiatric admission for symptom stabilization and safety. Patient has signed adult voluntary form and medication consent and was placed in patient's chart. -Of concern, is the patient's elevated blood pressure. Despite not displaying any significant overt symptoms of a panic attack, the patient has had consisten tly high blood pressure and tachycardia. Medicine has been consulted to evaluate the patient. We will hold on discharge for now. -Medications: Continue Paxil 40 mg by mouth daily for management of depression/anxiety/panic disorder. Increase BuSpar to 30 mg by mouth twice a day for anxiety Continue gabapentin 400 mg by mouth twice a day for neuropathy/off label use for anxiety Continue Zyprexa 10 mg by mouth at bedtime for mood augmentation Start clonidine 0.1 mg by mouth twice a day for concern for withdrawal symptoms Discontinue melatonin due to vivid dreams/nightmares. -When necessary Vistaril and Haldol for agitation/aggression. -NRT - nicotine patch -SW on board for discharge planning. Encouraged the patient to participate in milieu.
[2020-07-09] MEDS: ACETAMINOPHEN TAB 325 MG TAB PO PRN (13:51)
[2020-07-09 17:44] LABS: Glucose,Whole Blood 151 mg/dL (75-99)
[2020-07-09 20:03] LABS: Glucose,Whole Blood 187 mg/dL (75-99)
[2020-07-09] MEDS: busPIRone HCl 10 MG TAB PO SCH (20:15)
[2020-07-09] MEDS: OLANZapine 10 MG TAB PO SCH (20:17)
[2020-07-09] MEDS: cloNIDine HCL 0.1 MG TAB PO SCH (20:17)
[2020-07-10] MEDS: hydrOXYzine pamoate 25 MG CAP PO PRN ×4 (04:01→20:35)
[2020-07-10 07:52] LABS: Glucose,Whole Blood 169 mg/dL (75-99)
[2020-07-10] MEDS: SODIUM BICARBONATE TAB 650 MG TAB PO SCH ×2 (07:54→20:35)
[2020-07-10] MEDS: FENOFIBRATE 160 MG TAB PO SCH (07:54)
[2020-07-10] MEDS: busPIRone HCl 10 MG TAB PO SCH ×2 (07:55→20:34)
[2020-07-10] MEDS: cloNIDine HCL 0.1 MG TAB PO SCH ×2 (07:56→20:34)
[2020-07-10] MEDS: PARoxetine 20 MG TAB PO SCH (07:56)
[2020-07-10] MEDS: NICOTINE 14MG/24HR PATCH TRANSDERM SCH (07:56)
[2020-07-10] MEDS: carvediloL 6.25 MG TAB PO SCH ×2 (07:56→17:44)
[2020-07-10] MEDS: ASPIRIN 81 MG PO SCH (07:56)
[2020-07-10] MEDS: amLODIPine 10 MG TAB PO SCH (07:57)
[2020-07-10] MEDS: INSULIN ASPART (NovoLOG) 100 UNIT/ML VIAL SQ SCH ×4 (07:59→20:35)
[2020-07-10] MEDS: GABAPENTIN 400 MG CAP PO SCH ×2 (07:59→20:34)
[2020-07-10 12:47] LABS: Glucose,Whole Blood 165 mg/dL (75-99)
[2020-07-10] MEDS ORDERED: LORazepam 0.5 MG TAB PO PRN (13:32)
--- NOTE | 2020-07-10 14:06 | P.PN ---
Progress Note - Text Progress Note Date: 07/10/20 Clinical Problems: Substance induced depressive disorder, rule out major depressive disorder with anxious distress, generalized anxiety disorder, panic disorder, inhalant use disorder severe, alcohol use disorder severe, tobacco use Interim history: I reviewed the medical record and interviewed the patient. He is a 55-year-old male transferred to the psychiatric unit from the medicine unit with complaints of anxiety, depression and suicidal ideation. He was discharged from medicine with a diagnosis of acute kidney injury with hyperkalemia, diabetes mellitus type 2 with neuropathy and hypertension. The hospitalist appeared to believe that the acute kidney injury was result of the combination lisinopril and high-dose glipizide (there was no mention of continued injury secondary to inhalant use). The patient complained of chronic and persistent anxiety unrelieved by his multiple psychotropic medications including BuSpar, Neurontin, Zyprexa and paroxatine. 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 We discussed treatment options and I agreed to trial a small dose of Ativan PRN for the treatment of his anxiety complaints. I explained that this was when necessary only while he is in the hospital and will not be prescribed at discharge. After he left my office immediately went to the nurse's station and demanded the benzodiazepines. At which point, the nurse informed me that his attending did not want him prescribed a benzodiazepine. He then demanded discharge and called his sister. His sister in turn called the nurses station and complained that he is "not ready for discharge." Mental status exam: He presented as a thin elderly male who is dressed casually with a T-shirt and jeans. He made eye contact and attended the interview. He had a tense facial expression. He had slight psychomotor retardation but no abnormal involuntary movements. His speech was spontaneous with normal rate and rhythm. Affect was anxious but not inappropriate. His denied suicidal ideation and wishes. He expressed feelings of hopelessness and helplessness with regard to his chronic anxiety. He ruminated about his anxiety. He did not express ideas reference, paranoid ideation or delusions. Her thinking was concrete but his associations were coherent, logical and goal directed. He denied hallucinations did not appear to responding to internal stimuli. We completed the Mini-Mental State Examination. His total score was 26/30. He showed no impairment in orientation or short-term memory. He He was unable to count backwards from 100 x 7 but accurate spell the word "world" correctly. He had no impairment in naming, language or visual spatial functioning. Assessment: He is a chronically anxious middle-aged man who presented with depression and anxiety and suicidal ideation in the context of abusing inhalant and alcohol. His most prominent complaint is anxiety which she is requesting benzodiazepine. Plan: Continue inpatient treatment. Sick precautions. Continue BuSpar 30 mg twice a day, Neurontin 40 mg twice a day, Zyprexa 10 mg at bedtime and proximal teen 40 mg daily. Ativan 0.5 mg 3 times a day when necessary for anxiety; monitor frequency of use of Ativan and taper prior to discharge. Encourage participation in therapeutic groups and activities. Evaluate clinical status response to treatment daily basis.
[2020-07-10 17:37] LABS: Glucose,Whole Blood 153 mg/dL (75-99)
[2020-07-10 19:57] LABS: Glucose,Whole Blood 178 mg/dL (75-99)
[2020-07-10] MEDS: OLANZapine 10 MG TAB PO SCH (20:34)
[2020-07-11] MEDS: hydrOXYzine pamoate 25 MG CAP PO PRN ×4 (02:28→20:45)
[2020-07-11 07:48] LABS: Glucose,Whole Blood 187 mg/dL (75-99)
[2020-07-11] MEDS: INSULIN ASPART (NovoLOG) 100 UNIT/ML VIAL SQ SCH ×4 (08:02→20:05)
[2020-07-11] MEDS: NICOTINE 14MG/24HR PATCH TRANSDERM SCH (08:04)
[2020-07-11] MEDS: GABAPENTIN 400 MG CAP PO SCH ×2 (08:07→20:05)
[2020-07-11] MEDS: amLODIPine 10 MG TAB PO SCH (08:08)
[2020-07-11] MEDS: ASPIRIN 81 MG PO SCH (08:08)
[2020-07-11] MEDS: busPIRone HCl 10 MG TAB PO SCH ×2 (08:08→20:05)
[2020-07-11] MEDS: carvediloL 6.25 MG TAB PO SCH ×2 (08:08→17:56)
[2020-07-11] MEDS: cloNIDine HCL 0.1 MG TAB PO SCH ×2 (08:08→20:05)
[2020-07-11] MEDS: FENOFIBRATE 160 MG TAB PO SCH (08:09)
[2020-07-11] MEDS: SODIUM BICARBONATE TAB 650 MG TAB PO SCH ×2 (08:09→20:05)
[2020-07-11] MEDS: PARoxetine 20 MG TAB PO SCH (08:09)
[2020-07-11] MEDS ORDERED: ERGOCALCIFEROL 1,250 MCG (50,000 IU) CAPSULE PO SCH (09:00)
--- NOTE | 2020-07-11 12:29 | P.PN ---
Progress Note - Text Progress Note Date: 07/11/20 Clinical Problems: Substance induced depressive disorder, rule out major depressive disorder with anxious distress, generalized anxiety disorder, panic disorder, inhalant use disorder severe, alcohol use disorder severe, tobacco use Interim history: I reviewed the medical record and interviewed the patient. He apologized for his leading me yesterday alleging that he is unaware that his attending psychiatrist did not want him prescribed benzodiazepines. However, he acknowledged that he has abused benzodiazepines in the past. Overall he feels that that overall his anxiety has decreased and he is looking forward to discharge. He attributes the improvement anxiety to therapeutic groups and activities. Mental status exam: He presented as a thin elderly male who is dressed in a hospital gown. He made eye contact and attended the interview. He blunted but bright facial expression. He had slight psychomotor retardation and no abnormal involuntary movements. His speech was spontaneous with normal rate and rhythm. Affect was anxious but not inappropriate. His denied suicidal ideation and wishes. He did not express feelings of hopelessness and helplessness with regard to his chronic anxiety. He did not ruminate about his anxiety. He did not express ideas reference, paranoid ideation or delusions. His thinking was concrete but his associations were coherent, logical and goal directed. He denied hallucinations did not appear to responding to internal stimuli. Assessment: He is a chronically anxious middle-aged man who presented with depression and anxiety and suicidal ideation in the context of abusing inhalant and alcohol. Plan: Continue inpatient treatment. Sick precautions. Continue BuSpar 30 mg twice a day, Neurontin 40 mg twice a day, Zyprexa 10 mg at bedtime and proximal teen 40 mg daily. Encourage participation in therapeutic groups and activities. Evaluate clinical status response to treatment daily basis.
[2020-07-11 12:37] LABS: Glucose,Whole Blood 180 mg/dL (75-99)
[2020-07-11] MEDS: ACETAMINOPHEN TAB 325 MG TAB PO PRN (16:44)
[2020-07-11 17:50] LABS: Glucose,Whole Blood 130 mg/dL (75-99)
[2020-07-11 19:48] LABS: Glucose,Whole Blood 278 mg/dL (75-99)
[2020-07-11 19:48] LABS: Glucose,Whole Blood 262 mg/dL (75-99)
[2020-07-11] MEDS: OLANZapine 10 MG TAB PO SCH (20:05)
[2020-07-12] MEDS: hydrOXYzine pamoate 25 MG CAP PO PRN ×3 (02:29→13:49)
[2020-07-12 07:47] LABS: Glucose,Whole Blood 169 mg/dL (75-99)
[2020-07-12] MEDS: INSULIN ASPART (NovoLOG) 100 UNIT/ML VIAL SQ SCH ×2 (08:02→12:56)
[2020-07-12] MEDS: cloNIDine HCL 0.1 MG TAB PO SCH (08:03)
[2020-07-12] MEDS: PARoxetine 20 MG TAB PO SCH (08:03)
[2020-07-12] MEDS: busPIRone HCl 10 MG TAB PO SCH (08:04)
[2020-07-12] MEDS: ASPIRIN 81 MG PO SCH (08:05)
[2020-07-12] MEDS: amLODIPine 10 MG TAB PO SCH (08:05)
[2020-07-12] MEDS: carvediloL 6.25 MG TAB PO SCH (08:05)
[2020-07-12] MEDS: GABAPENTIN 400 MG CAP PO SCH (08:05)
[2020-07-12] MEDS: NICOTINE 14MG/24HR PATCH TRANSDERM SCH (08:12)
[2020-07-12] MEDS: FENOFIBRATE 160 MG TAB PO SCH (08:12)
[2020-07-12] MEDS: SODIUM BICARBONATE TAB 650 MG TAB PO SCH (08:12)
[2020-07-12 09:14] VITALS: RESP 20
--- NOTE | 2020-07-12 10:04 | P.DS ---
Providers Date of admission: 07/06/20 18:12 Expected date of discharge: 07/12/20 Attending physician: Tej Joe MD Consults: 07/06/20 17:26 Consult Physician Routine Consulting Provider: Sourav Sloan Consult Reason/Comments: H&P and medical Do you want consulting provider notified?: Yes Primary care physician: Marlen Mobley - Discharge Diagnosis(es) (1) Major depressive disorder, recurrent severe without psychotic features Current Visit: Yes Status: Acute Priority: High (2) Anxiety disorder Current Visit: No Status: Acute Priority: High (3) Inhalant abuse Current Visit: Yes Status: Acute Priority: Medium (4) Nicotine dependence Current Visit: No Status: Chronic Priority: Medium Hospital Course: Admission HPI: Patient is a , on disability, 55-year-old male who was initially admitted for depression suicidal ideation in the context of alcohol and inhalant abuse who is now discharged from the medical floor after being managed for acute kidney injury and hyperkalemia. Patient presented to the hospital on 07/02/2020 with a chief complaint depression and suicidal ideation. Prior to that admission, the patient reports that he has been feeling increasingly anxious and depressed over the past month. He states that the panic attacks have been occurring every day and would last hours at a time. He reports that during these panic attacks he would experience "feeling like I'm coming out of my skin" elevated anxiety, palpitations, and general and he is. He reports fear of the next attack. He states that it is these panic attacks that push him toward substance use. He states that he has been huffing 4-5 cans of chemical dusters. He reports he does this to alleviate his anxiety. On top of huffing, the patient does report to increased alcohol use saying that he would drink upwards to a pint of hard liquor multiple times per week. The patient reports that he has been feeling increasing depression. He reports anhedonia, low mood, low motivation, and suicidal ideation with a plan to cut his wrists. He reports that he did not attempt and reports no prior attempts at suicide. The patient does not endorse any significant symptoms of bipolar disorder at this time. He reports no flight of ideas, racing thoughts, or increased goal-directed behavior. He denies any auditory or visual hallucinations. He denies any paranoia or delusions. Hospital course: Upon admission to the unit patient was initially presenting with elevated anxiety. The patient would state that he is having a panic attack but displayed no significant physical symptoms of a panic attack aside from high blood pressure and tachycardia. He did not appear to be in any acute distress upon presentation. The patient would complain of elevated anxiety throughout the hospital stay. During the hospital stay, the patient would also make attempts to obtain benzodiazepine medications from staff and at times would like to staff stating that he was prescribed Valium at home and that he was taking it on a regular basis. Review the patient's maps reveals the patient was not prescribed Valium since this past April. The patient then admitted that he was using illicit Valium. When the patient's Ativan was discontinued, the patient expressed anger towards the treatment team. The patient was counseled at length that it elevated anxiety will always be a problem if he engages in substance abuse that tends to exacerbate his anxiety symptoms. The patient was started on Paxil and was continued on his medications of BuSpar, gabapentin, and Zyprexa. Paxil was gradually titrated to final dose of 40 mg by mouth daily to address his depression, anxiety, and reported panic disorder. The patient was initially to be discharged last week, but the patient's sister expressed concern that the patient was not feeling ready and the patient stated that due to his elevated anxiety and presented with immediate risk to harm himself. The patient presented well over the weekend but continued to make an attempt to obtain benzodiazepine medication, even despite significant counseling and psychoeducation. On the day of discharge, the patient is not reporting any suicidal or homicidal ideation, intention, and/or plan. He is not reporting any paranoia or delusions. He denies any access to firearms or other weapons. Even prior to this admission, the patient has no previous attempts at suicide. The patient's blood pressure continues to be high but has decreased significantly. Vitals upon discharge revealed mild tachycardia 114 bpm and a blood pressure 141/91. The patient is not endorsing any palpitations, chest pain, or headache. He has been adherent with his medications is not reporting any symptoms and side effects. The patient was counseled at length on abstaining from all substances including alcohol, marijuana, inhalants, and illicit benzodiazepine use. The patient was offered however declined inpatient substance-abuse rehab. Prior to discharge, family meeting will be arranged by the social work professor to answer any questions and ensure safety. Mental status exam: General Appearance: Patient appears to be stated age is alert, pleasant, and cooperative. Patient is in no acute distress and has fair hygiene and grooming . Patient has prominent facial hair and is bald. Behavior: Patient is calmly seated without any agitated behavior. psychomotor activity appears normal. Speech: Patient's speech is fluent and nonpressured. Mood/Affect: Patient reports their mood "doing okay." affect appears slightly a ngry at this provider. Suicidality/Homicidality: Patient denies having any suicidal or homicidal ideation intent or plan. Perceptions: Patient denies any auditory or visual hallucinations. Though content/process: There is no evidence of any delusional thought content and thought process is linear and goal-directed. more future oriented Memory and concentration: AOX3, grossly intact for the purposes of this session. Can spell "WORLD" backwards correctly. Judgment and insight: Improved with guarded prognosis Impression: Depressive disorder secondary to substance abuse Generalized anxiety disorder Inhalant abuse Alcohol use disorder Benzodiazepine abuse Nicotine dependence Plan: -Continue with discharge today as patient has improved and stabilized psychiatrically and is not currently an imminent threat to himself and/or others. [Patient will remain at chronically elevated risk for harm to self and/or others due to his lack of insight and polysubstance abuse Continue medications: Paxil 40 mg by mouth daily for depression/anxiety Gabapentin 400 mg by mouth twice a day for neuropathy/off label use for anxiety Zyprexa 10 mg by mouth at bedtime for mood augmentation Clonidine 0.1 mg by mouth twice a day for withdrawal symptoms Vistaril 50 mg by mouth 3 times a day when necessary for anxiety Nicotine replacement therapy patches -Patient was counseled on the need for medication compliance and appropriate follow-up at mental health and also primary care for medical issues. Patient verbalized understanding and agreed. -Social work to arrange for and conduct family meeting to ensure safety upon discharge and answer any questions/concerns. Social work also to arrange for patients follow up appointments with [facility] for psychiatric care along with follow up with primary care provider. -Patient counseled on abstaining from recreational drugs and marijuana and alcohol. Was informed/educated on the adverse effects on their physical and mental health. Patient verbally agreed and understood. Patient was offered substance abuse treatment however declined at this time. -Patient was instructed to return to the hospital or seek immediate medical care if their psychiatric or medical symptoms do worsen or reoccur. -Psychoeducation and supportive therapy provided to patient. Risks and benefits of pharmacological treatment versus the risks and benefits of nontreatment weight and discussed. Informed consent discussion held. Common side effects of psychotropics discussed such as, but not limited to headache, GI disturbance, sexual dysfunction, movement disorders, sedation, and orthostatic hypotension. Life threatening and blackbox warnings of prescribed medications also discussed. Potential risks of operating a vehicle or heavy machinery discussed with patient at length. Advised on importance of compliance and a reliable and responsible manner. Patient advised to review FDA consumer labeling of all medications prior to taking. Patient verbalized understanding of potential risks, and agrees with current treatment plan. Patient advised to medically contact physician/emergency personnel if any acute changes in condition occur. Vital Signs Temp 97.0 F L 07/12/20 08:05 Pulse 114 H 07/12/20 09:36 Resp 20 07/12/20 08:05 BP 141/91 07/12/20 09:36 Pulse Ox 98 07/09/20 06:36 Intake & Output 07/11/20 07/12/20 07/12/20 18:59 06:59 18:59 Weight 78.8 kg Laboratory Results Sodium 140 mmol/L (137-145) 07/09/20 07:07 Potassium 4.6 mmol/L (3.5-5.1) 07/09/20 07:07 Chloride 104 mmol/L (98-107) 07/09/20 07:07 Carbon Dioxide 24 mmol/L (22-30) 07/09/20 07:07 Anion Gap 12 mmol/L 07/09/20 07:07 BUN 22 mg/dL (9-20) H 07/09/20 07:07 Creatinine 1.14 mg/dL (0.66-1.25) 07/09/20 07:07 Est GFR (CKD-EPI)AfAm 83 (>60 ml/min/1.73 sqM) 07/09/20 07:07 Est GFR (CKD-EPI)NonAf 72 (>60 ml/min/1.73 sqM) 07/09/20 07:07 Glucose 180 mg/dL (74-99) H 07/09/20 07:07 POC Glucose (mg/dL) 169 mg/dL (75-99) H 07/12/20 07:44 POC Glu Equipment Installation Professional ID Elvin Roblero 07/12/20 07:44 Calcium 10.0 mg/dL (8.4-10.2) 07/09/20 07:07 Allergies Allergy/AdvReac Type Severity Reaction Status Date / Time thimerosal Allergy Severe Rash/Hives/throat Verified 07/06/20 18:33 swelling neomycin Allergy Rash/Hives Verified 07/06/20 18:33 Patient Condition at Discharge: Stable Plan - Discharge Summary Discharge Rx Participant: No New Discharge Prescriptions: New Aspirin 81 mg PO QAM 30 Days chew busPIRone HCl [Buspar] 30 mg PO BID 30 Days tab cloNIDine HCL [Catapres] 0.1 mg PO BID 30 Days tab carvediloL [Coreg] 6.25 mg PO BID-W/MEALS 30 Days tab Nicotine 14Mg/24Hr Patch [Habitrol] 1 patch TRANSDERM DAILY 30 Days patch Fenofibrate [Lofibra] 160 mg PO DAILY 30 Days tab Gabapentin [Neurontin] 400 mg PO BID 30 Days cap amLODIPine [Norvasc] 10 mg PO DAILY 30 Days tab INSULIN ASPART (NovoLOG) [NovoLOG (formulary)] 0 unit SQ ACHS vial PARoxetine [Paxil] 40 mg PO DAILY 30 Days tab Sodium Bicarbonate Tab 650 mg PO BID 30 Days tab hydrOXYzine pamoate [Vistaril] 50 mg PO TID 30 Days cap OLANZapine [ZyPREXA] 10 mg PO HS 30 Days tab Continue Pantoprazole [Protonix] 40 mg PO HS 30 Days tablet. Pravastatin Sodium [Pravachol] 40 mg PO HS 30 Days tab Cyclobenzaprine [Flexeril] 10 mg PO TID PRN PRN Reason: Muscle Pain Gemfibrozil [Lopid] 600 mg PO AC-BID Ergocalciferol (Vitamin D2) [Drisdol (50,000 Iu)] 1,250 mcg PO RODRÍGUEZ Sennosides [Senna] 8.6 mg PO BID PRN PRN Reason: Constipation metFORMIN HCL 1,000 mg PO BID #60 tab Thiamine [Vitamin B-1] 100 mg PO AC-BID glipiZIDE [Glucotrol] 10 mg PO AC-BID #60 tablet Discontinued Fluticasone Nasal [place] [Flonase Nasal [place]] 2 spray EA NOSTRIL DAILY PRN #1 spr PRN Reason: Allergy Symptoms Fenofibrate [Lofibra] 160 mg PO DAILY 30 Days tab Prazosin [Minipress] 2 mg PO HS 30 Days cap Acetaminophen Tab [Tylenol] 650 mg PO Q8HR PRN 14 Days tab PRN Reason: Fever And/ Or Pain OLANZapine [ZyPREXA] 5 mg PO DAILY oxyCODONE HCL/ACETAMINOPHEN [Percocet 7.5-325 mg] 1 tab PO TID PRN PRN Reason: Pain OLANZapine [ZyPREXA] 10 mg PO HS Clotrimazole Cream [Lotrimin Cream] 1 applic TOPICAL DAILY Melatonin 6 mg PO HS Aspirin 81 mg PO QAM chew Nicotine 14Mg/24Hr Patch [Habitrol] 1 patch TRANSDERM DAILY PRN PRN Reason: Nicotine Cravings busPIRone HCl [Buspar] 15 mg PO BID tab carvediloL [Coreg] 6.25 mg PO BID-W/MEALS tab DULoxetine HCL [Cymbalta] 90 mg PO DAILY capsule. Gabapentin [Neurontin] 400 mg PO BID cap Sodium Bicarbonate Tab 650 mg PO BID tab Discharge Medication List Pantoprazole [Protonix] 40 mg PO HS 30 Days tablet. 03/24/20 [Rx] Pravastatin Sodium [Pravachol] 40 mg PO HS 30 Days tab 03/24/20 [Rx] Cyclobenzaprine [Flexeril] 10 mg PO TID PRN 06/15/20 [History] Gemfibrozil [Lopid] 600 mg PO AC-BID 06/15/20 [History] Ergocalciferol (Vitamin D2) [Drisdol (50,000 Iu)] 1,250 mcg PO RODRÍGUEZ 06/17/20 [History] Sennosides [Senna] 8.6 mg PO BID PRN 06/17/20 [History] metFORMIN HCL 1,000 mg PO BID #60 tab 06/18/20 [Rx] Thiamine [Vitamin B-1] 100 mg PO AC-BID 07/04/20 [History] glipiZIDE [Glucotrol] 10 mg PO AC-BID #60 tablet 07/05/20 [Rx] Aspirin 81 mg PO QAM 30 Days chew 07/12/20 [Rx] Fenofibrate [Lofibra] 160 mg PO DAILY 30 Days tab 07/12/20 [Rx] Gabapentin [Neurontin] 400 mg PO BID 30 Days cap 07/12/20 [Rx] INSULIN ASPART (NovoLOG) [NovoLOG (formulary)] 0 unit SQ ACHS vial 07/12/20 [Rx] Nicotine 14Mg/24Hr Patch [Habitrol] 1 patch TRANSDERM DAILY 30 Days patch 07/12/20 [Rx] OLANZapine [ZyPREXA] 10 mg PO HS 30 Days tab 07/12/20 [Rx] PARoxetine [Paxil] 40 mg PO DAILY 30 Days tab 07/12/20 [Rx] Sodium Bicarbonate Tab 650 mg PO BID 30 Days tab 07/12/20 [Rx] amLODIPine [Norvasc] 10 mg PO DAILY 30 Days tab 07/12/20 [Rx] busPIRone HCl [Buspar] 30 mg PO BID 30 Days tab 07/12/20 [Rx] carvediloL [Coreg] 6.25 mg PO BID-W/MEALS 30 Days tab 07/12/20 [Rx] cloNIDine HCL [Catapres] 0.1 mg PO BID 30 Days tab 07/12/20 [Rx] hydrOXYzine pamoate [Vistaril] 50 mg PO TID 30 Days cap 07/12/20 [Rx] Follow up Appointment(s)/Referral(s): [facility] [Outside] - 07/13/20 10:00 am (07-13-20 @ 10:00 with Cindy Coleman at [place] Office 07-14-20 @ 3:[address] Waller at [place] office) Marlen Mobley MD [Primary Care Provider] - 3 Days (Follow up with Primary Dr for monitoring of blood pressure and heart rate.) Patient Instructions/Handouts: Depression (ED), Psychotic Disorder (DC) Activity/Diet/Wound Care/Special Instructions: Activity and diet as tolerated. Avoid the use of street drugs and alcohol. Take all medications as prescribed. When you are in need of refills on your medications please contact your medical provider and/or outpatient psychiatrist to have this done. Please go to scheduled outpatient appointment for aftercare treatment. If symptoms return or become worse, call the crisis line at and/or go to the nearest emergency room for evaluation.
[2020-07-12] MEDS ORDERED: carvediloL 12.5 MG TAB PO SCH ×2 (11:00→17:30)
[2020-07-12] MEDS ORDERED: carvediloL 6.25 MG TAB PO ONE (11:00)
[2020-07-12 12:24] VITALS: BP 129/78
[2020-07-12 12:39] LABS: Glucose,Whole Blood 144 mg/dL (75-99)
[2020-07-12 15:17] VITALS: PULSE 130
[2020-07-12 16:13] VITALS: TEMP 97.5
== END 2020-07-12 16:44 | disposition home or self-care (01) | DRG 885 ==
LOC: 3MHU 18:12
PROVIDERS: ADMIT Psychiatry & Neurology Psychiatry; ATTEND Psychiatry & Neurology Psychiatry
DX: F33.2 Major depressive disorder, recurrent severe without psychotic features (principal); R45.851 Suicidal ideations; N17.9 Acute kidney failure, unspecified; E11.40 Type 2 diabetes mellitus with diabetic neuropathy, unspecified; F13.10 Sedative, hypnotic or anxiolytic abuse, uncomplicated; F18.10 Inhalant abuse, uncomplicated; F10.20 Alcohol dependence, uncomplicated; I10 Essential (primary) hypertension; E87.5 Hyperkalemia; G47.33 Obstructive sleep apnea (adult) (pediatric); F41.1 Generalized anxiety disorder; F17.210 Nicotine dependence, cigarettes, uncomplicated; Z71.6 Tobacco abuse counseling; F41.0 Panic disorder [episodic paroxysmal anxiety]; Z79.84 Long term (current) use of oral hypoglycemic drugs; Z79.82 Long term (current) use of aspirin; Z79.899 Other long term (current) drug therapy; Z96.643 Presence of artificial hip joint, bilateral; Z98.42 Cataract extraction status, left eye; Z98.41 Cataract extraction status, right eye; Z98.890 Other specified postprocedural states; Z88.3 Allergy status to other anti-infective agents; Z88.8 Allergy status to other drugs, medicaments and biological substances; Z81.8 Family history of other mental and behavioral disorders
CPT/HCPCS: 80048; 93005

== ENCOUNTER 2020-10-16 14:52 | Observation (INO) | payer MEDICARE, OTHER ==
--- NOTE | 2020-10-16 15:18 | ED ---
General Adult HPI - General Chief complaint: Psychiatric Symptoms Stated complaint: Depression Time Seen by Provider: 10/16/20 15:17 Source: patient Mode of arrival: EMS Limitations: no limitations - History of Present Illness Initial comments: Patient presents to the ED by ambulance for evaluation. Patient states that he has been depressed and anxious recently, and he was "huffing duster" just prior to being brought to the ED today. Patient states that he was huffing to "get high". Patient denies suicidal ideations or suicidal attempt. Patient denies any other illicit drug use, and he denies alcohol use as well. Patient denies medication abuse or overdose. Patient denies having any symptoms besides anxiety at this time, and he is requesting medication for his anxiety. Patient denies having any pain, trauma or injury, fever or chills, headache, focal numbness/weakness/neuro deficit, visual changes, chest pain, dyspnea, cough or cold symptoms, palpitations, dizziness, abdominal pain, nausea/vomiting/diarrhea, dysuria or urinary symptoms, hallucinations, homicidal ideations, or any other symptoms or complaints. - Related Data Home Medications Medication Instructions Recorded Confirmed Gemfibrozil [Lopid] 600 mg PO BID 06/15/20 10/16/20 Gabapentin 800 mg PO TID 10/16/20 10/16/20 Prazosin HCl 2 mg PO HS 10/16/20 10/16/20 busPIRone HCL 30 mg PO BID 10/16/20 10/16/20 carvediloL [Coreg*] 12.5 mg PO BID 10/16/20 10/16/20 glipiZIDE [Glucotrol] 20 mg PO BID 10/16/20 10/16/20 Previous Rx's Medication Instructions Recorded Pantoprazole [Protonix] 40 mg PO HS 30 Days tablet. 03/24/20 Pravastatin Sodium [Pravachol] 40 mg PO HS 30 Days tab 03/24/20 metFORMIN HCL 1,000 mg PO BID #60 tab 06/18/20 Fenofibrate [Lofibra] 160 mg PO DAILY 30 Days tab 07/12/20 OLANZapine [ZyPREXA] 10 mg PO HS 30 Days tab 07/12/20 PARoxetine [Paxil] 40 mg PO DAILY 30 Days tab 07/12/20 Sodium Bicarbonate Tab 650 mg PO BID 30 Days tab 07/12/20 amLODIPine [Norvasc] 10 mg PO DAILY 30 Days tab 07/12/20 cloNIDine HCL [Catapres] 0.1 mg PO BID 30 Days tab 07/12/20 Allergies Allergy/AdvReac Type Severity Reaction Status Date / Time thimerosal Allergy Severe Rash/Hives/throat Verified 10/16/20 17:42 swelling neomycin Allergy Rash/Hives Verified 10/16/20 17:42 Review of Systems ROS Statement: Those systems with pertinent positive or pertinent negative responses have been documented in the HPI. ROS Other: All systems not noted in ROS Statement are negative. 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, neuropathy, anxiety History of Any Multi-Drug Resistant Organisms: None Reported Past Surgical History: Joint Replacement Additional Past Surgical History / Comment(s): bilateral cataract removed, Both hips replaced, right heal shattered- screws/plates/ pins, cardiac cath 06/18/20 Past Anesthesia/Blood Transfusion Reactions: No Reported Reaction Past Psychological History: Anxiety, Bipolar, Depression, Schizoaffective Disorder Smoking Status: Current some day smoker Past Alcohol Use History: Occasional, Rare Past Drug Use History: None Reported - Past Family History family Additional Family Medical History / Comment(s): anxiety General Exam Limitations: no limitations General appearance: alert, in no apparent distress Head exam: Present: atraumatic, normocephalic Eye exam: Present: normal appearance, PERRL, EOMI ENT exam: Present: mucous membranes moist Neck exam: Present: other (Trachea is in midline) Respiratory exam: Present: normal lung sounds bilaterally. Absent: respiratory distress, wheezes, rales, rhonchi, stridor Cardiovascular Exam: Present: normal rhythm, tachycardia, normal heart sounds, other (Normal radial pulses bilaterally) GI/Abdominal exam: Present: soft. Absent: distended, tenderness, guarding Extremities exam: Absent: tenderness, pedal edema, calf tenderness Neurological exam: Present: alert, oriented X3, CN II-XII intact. Absent: motor sensory deficit Psychiatric exam: Present: anxious Skin exam: Present: warm, dry, intact, normal color Course Vital Signs 10/16/20 10/16/20 10/16/20 15:03 17:14 17:18 Temperature 100 F H 98.7 F Pulse Rate 115 H 95 Respiratory 20 16 Rate Blood Pressure 140/96 151/85 O2 Sat by Pulse 98 98 Oximetry - Reevaluation(s) Reevaluation #1: 10/16/20 18:18 Patient denies development of any new symptoms while in the ED. Patient remains alert and breathing comfortably with a normal room air oxygen saturation. Patient is aware of his test results, and he agrees with hospital admission at this time for further evaluation and management. 10/16/20 18:30 Case, H&P, test results and ED management were discussed with Dr. Smith. He accepts hospital admission. He agrees with nephrology consultation. He has no further recommendations at this time. EKG Findings - EKG Comments: EKG Findings:: Sinus tachycardia, ventricular rate of 105 bpm, no ectopy, normal CT and QRS intervals, normal QT interval, normal axis, nonspecific T-wave abnormality Medical Decision Making - Medical Decision Making Patient is noted to have acute renal insufficiency on laboratory evaluation. Patient's labs are otherwise fairly unremarkable. Patient's renal ultrasounds are also unremarkable. He shouldn't has been hydrated with IV fluids in the ED. Given that the patient is unlikely to have good outpatient follow-up, will admit the patient to the hospital for further evaluation and management of his acute renal insufficiency. Dr. Smith has accepted hospital admission. - Lab Data Result diagrams: 10/16/20 15:55 10/16/20 15:55 Lab Results 10/16/20 10/16/20 10/16/20 Range/Units 15:55 15:55 15:55 WBC 7.4 (3.8-10.6) k/uL RBC 4.18 L (4.30-5.90) m/uL Hgb 11.9 L (13.0-17.5) gm/dL Hct 36.4 L (39.0-53.0) % MCV 87.2 (80.0-100.0) fL MCH 28.6 (25.0-35.0) pg MCHC 32.8 (31.0-37.0) g/dL RDW 14.3 (11.5-15.5) % Plt Count 367 (150-450) k/uL MPV 6.7 Neutrophils % 61 % Lymphocytes % 27 % Monocytes % 7 % Eosinophils % 1 % Basophils % 1 % Neutrophils # 4.6 (1.3-7.7) k/uL Lymphocytes # 2.0 (1.0-4.8) k/uL Monocytes # 0.5 (0-1.0) k/uL Eosinophils # 0.1 (0-0.7) k/uL Basophils # 0.0 (0-0.2) k/uL Sodium 139 (137-145) mmol/L Potassium 3.8 (3.5-5.1) mmol/L Chloride 108 H (98-107) mmol/L Carbon Dioxide 22 (22-30) mmol/L Anion Gap 9 mmol/L BUN 34 H (9-20) mg/dL Creatinine 3.06 H (0.66-1.25) mg/dL Est GFR (CKD-EPI)AfAm 25 (>60 ml/min/1.73 sqM) Est GFR (CKD-EPI)NonAf 22 (>60 ml/min/1.73 sqM) Glucose 167 H (74-99) mg/dL Calcium 9.8 (8.4-10.2) mg/dL Total Bilirubin 0.4 (0.2-1.3) mg/dL AST 24 (17-59) U/L ALT 19 (4-49) U/L Alkaline Phosphatase 80 (38-126) U/L Creatine Kinase (55-170) U/L Total Protein 6.9 (6.3-8.2) g/dL Albumin 4.1 (3.5-5.0) g/dL Urine Color Urine Appearance (Clear) Urine pH (5.0-8.0) Ur Specific [place] (1.001-1.035) Urine Protein (Negative) Urine Glucose (UA) (Negative) Urine Ketones (Negative) Urine Blood (Negative) Urine Nitrite (Negative) Urine Bilirubin (Negative) Urine Urobilinogen (<2.0) mg/dL Ur Leukocyte Esterase (Negative) Urine WBC (0-5) /hpf Ur Squamous Epith Cells (0-4) /hpf Hyaline Casts (0-2) /lpf Urine Mucus (None) /hpf Salicylates <1.0 mg/dL Urine Opiates Screen Not Detected (NotDetected) Ur Oxycodone Screen Not Detected (NotDetected) Urine Methadone Screen Not Detected (NotDetected) Ur Propoxyphene Screen Not Detected (NotDetected) Acetaminophen <10.0 ug/mL Ur Barbiturates Screen Not Detected (NotDetected) U Tricyclic Antidepress Not Detected (NotDetected) Ur Phencyclidine Scrn Not Detected (NotDetected) Ur Amphetamines Screen Not Detected (NotDetected) U Methamphetamines Scrn Not Detected (NotDetected) U Benzodiazepines Scrn Not Detected (NotDetected) Urine Cocaine Screen Not Detected (NotDetected) U Marijuana (THC) Screen Not Detected (NotDetected) Serum Alcohol <10 mg/dL 10/16/20 10/16/20 Range/Units 15:55 15:55 WBC (3.8-10.6) k/uL RBC (4.30-5.90) m/uL Hgb (13.0-17.5) gm/dL Hct (39.0-53.0) % MCV (80.0-100.0) fL MCH (25.0-35.0) pg MCHC (31.0-37.0) g/dL RDW (11.5-15.5) % Plt Count (150-450) k/uL MPV Neutrophils % % Lymphocytes % % Monocytes % % Eosinophils % % Basophils % % Neutrophils # (1.3-7.7) k/uL Lymphocytes # (1.0-4.8) k/uL Monocytes # (0-1.0) k/uL Eosinophils # (0-0.7) k/uL Basophils # (0-0.2) k/uL Sodium (137-145) mmol/L Potassium (3.5-5.1) mmol/L Chloride (98-107) mmol/L Carbon Dioxide (22-30) mmol/L Anion Gap mmol/L BUN (9-20) mg/dL Creatinine (0.66-1.25) mg/dL Est GFR (CKD-EPI)AfAm (>60 ml/min/1.73 sqM) Est GFR (CKD-EPI)NonAf (>60 ml/min/1.73 sqM) Glucose (74-99) mg/dL Calcium (8.4-10.2) mg/dL Total Bilirubin (0.2-1.3) mg/dL AST (17-59) U/L ALT (4-49) U/L Alkaline Phosphatase (38-126) U/L Creatine Kinase 84 (55-170) U/L Total Protein (6.3-8.2) g/dL Albumin (3.5-5.0) g/dL Urine Color Yellow Urine Appearance Cloudy (Clear) Urine pH 5.0 (5.0-8.0) Ur Specific [place] 1.022 (1.001-1.035) Urine Protein Trace H (Negative) Urine Glucose (UA) 1+ H (Negative) Urine Ketones Negative (Negative) Urine Blood Negative (Negative) Urine Nitrite Negative (Negative) Urine Bilirubin Negative (Negative) Urine Urobilinogen <2.0 (<2.0) mg/dL Ur Leukocyte Esterase Negative (Negative) Urine WBC 3 (0-5) /hpf Ur Squamous Epith Cells 1 (0-4) /hpf Hyaline Casts 23 H (0-2) /lpf Urine Mucus Rare H (None) /hpf Salicylates mg/dL Urine Opiates Screen (NotDetected) Ur Oxycodone Screen (NotDetected) Urine Methadone Screen (NotDetected) Ur Propoxyphene Screen (NotDetected) Acetaminophen ug/mL Ur Barbiturates Screen (NotDetected) U Tricyclic Antidepress (NotDetected) Ur Phencyclidine Scrn (NotDetected) Ur Amphetamines Screen (NotDetected) U Methamphetamines Scrn (NotDetected) U Benzodiazepines Scrn (NotDetected) Urine Cocaine Screen (NotDetected) U Marijuana (THC) Screen (NotDetected) Serum Alcohol mg/dL - Radiology Data Radiology results: report reviewed (Chest x-ray: No acute process; renal/bladder ultrasound: No acute abnormality of the renal ultrasound) Disposition Clinical Impression: Depression, Acute anxiety, Huffing, Acute renal insufficiency Disposition: ADMITTED IP TO THIS [facility] Condition: Stable Is patient prescribed a controlled substance at d/c from ED?: No Referrals: Marlen Mobley MD [Primary Care Provider] - 1-2 days Time of Disposition: 18:31
[2020-10-16] MEDS ORDERED: LORazepam 2 MG/ML INJ IV STA ×2 (15:24→18:42)
[2020-10-16] MEDS ORDERED: SODIUM CHLORIDE 0.9% 1,000 ML IV ONE (15:27)
[2020-10-16 16:11] LABS: Basophils % (A) 1 %; Eosinophils # (A) 0.1 k/uL (0-0.7); Eosinophils % (A) 1 %; HCT 36.4 % (39.0-53.0); HGB 11.9 gm/dL (13.0-17.5); Lymphocytes % (A) 27 %; MCH 28.6 pg (25.0-35.0); MCHC 32.8 g/dL (31.0-37.0); MCV 87.2 fL (80.0-100.0); Mean Platelet Volume 6.7; Monocytes # (A) 0.5 k/uL (0-1.0); Monocytes % (A) 7 %; Neutrophils # (A) 4.6 k/uL (1.3-7.7); Neutrophils % (A) 61 %; Platelet Count 367 k/uL (150-450); RBC 4.18 m/uL (4.30-5.90); RDW 14.3 % (11.5-15.5); WBC 7.4 k/uL (3.8-10.6)
[2020-10-16 16:18] LABS: Amphetamine Screen,Urine Not Detected (NotDetected); Barbiturate Screen,Urine Not Detected (NotDetected); Benzodiazepines Screen,Urine Not Detected (NotDetected); Cocaine Screen,Urine Not Detected (NotDetected); Methadone Screen, Urine Not Detected (NotDetected); Opiate Screen,Urine Not Detected (NotDetected); Oxycodone Screen, Urine Not Detected (NotDetected); Phencyclidine Screen,Urine Not Detected (NotDetected); Tricyclic Antidepressant,Urine Not Detected (NotDetected); Urn Cannabinoid Scrn Not Detected (NotDetected)
[2020-10-16 16:20] LABS: ALT 19 U/L (4-49); AST 24 U/L (17-59); Acetaminophen <10.0 ug/mL; African American GFR (CKD) 25 (>60 ml/min/1.73 sqM); Albumin 4.1 g/dL (3.5-5.0); Alcohol <10 mg/dL; Alkaline Phosphatase 80 U/L (38-126); Anion Gap 9 mmol/L; Blood Urea Nitrogen 34 mg/dL (9-20); Calcium 9.8 mg/dL (8.4-10.2); Carbon Dioxide 22 mmol/L (22-30); Chloride 108 mmol/L (98-107); Glucose 167 mg/dL (74-99); Non-African American GFR(CKD) 22 (>60 ml/min/1.73 sqM); Potassium 3.8 mmol/L (3.5-5.1); Salicylate <1.0 mg/dL; Sodium 139 mmol/L (137-145); Total Bilirubin 0.4 mg/dL (0.2-1.3); Total Protein 6.9 g/dL (6.3-8.2)
[2020-10-16] MEDS ORDERED: SODIUM CHLORIDE 0.9% 500 ML 500 ML IV ONE (16:38)
[2020-10-16 16:52] LABS: Appearance,Urine Cloudy (Clear); Bilirubin,Urine Negative (Negative); Blood,Urine Negative (Negative); Color,Urine Yellow; Glucose,Urine (UA) 1+ (Negative); Hyaline Casts,Urine 23 /lpf (0-2); Ketones,Urine Negative (Negative); Leukocyte Esterase,Urine Negative (Negative); Mucus,Urine Rare /hpf; Nitrite,Urine Negative (Negative); Protein,Urine Trace (Negative); Specific Gravity,Urine 1.022 (1.001-1.035); Squamous Epithelial Cell,Urine 1 /hpf (0-4); Urobilinogen,Urine <2.0 mg/dL (<2.0); WBC,Urine 3 /hpf (0-5)
--- NOTE | 2020-10-16 17:30 | XR ---
EXAMINATION TYPE: XR chest 1V portable DATE OF EXAM: 10/16/2020 COMPARISON: 07/02/2020 HISTORY: Pain. TECHNIQUE: Single frontal view of the chest is obtained. FINDINGS: There is no focal air space opacity, pleural effusion, or pneumothorax seen. The cardiac silhouette size is within normal limits. The osseous structures are intact. IMPRESSION: No acute process.
--- NOTE | 2020-10-16 17:52 | US ---
EXAMINATION TYPE: US renals and bladder DATE OF EXAM: 10/16/2020 COMPARISON: NONE CLINICAL HISTORY: acute renal insufficiency. abn labs, pt in ER for depression EXAM MEASUREMENTS: Right Kidney: 9.8 x 4.9 x 5.8 cm Left Kidney: 10.1 x 4.8 x 5.7 cm Right Kidney: No hydronephrosis or masses seen Left Kidney: No hydronephrosis or masses seen Bladder: wnl There is no evidence for hydronephrosis at this point in time. No nephrolithiasis is seen. No stefania s are identified. IMPRESSION: No acute abnormality of the renal ultrasound.
[2020-10-16] MEDS: SODIUM CHLORIDE 0.9% 1,000 ML IV SCH (18:45)
[2020-10-16 21:18] LABS: Glucose,Whole Blood 248 mg/dL (75-99)
--- NOTE | 2020-10-16 23:38 | P.HPIM ---
History of Present Illness H&P Date: 10/16/20 The patient is a 55-year-old male with a PMH of type II DM, hyperlipidemia, hypertension, obstructive sleep apnea, and inhalants abuse who presented to the emergency room via EMS after he was found huffing cans of compressed air. patient reports that he has been abusing inhalants roughly 6-7 cans daily for the past 2 years. He reports anxiety due to his homelessness but denied any additional complaints. He denied chest discomfort, shortness of breath, fever, chills, cough. Denied abdominal pain, nausea, vomiting, diarrhea, dizziness. In the emergency room, laboratory evaluation revealed a creatinine of 3.060 up from a baseline of 1.5. the patient was subsequently admitted for further management. Review of systems: Pertinent positives and negatives as discussed in HPI, a complete review of systems was performed and all other systems are negative. Physical examination: General: non toxic, no distress, appears at stated age, normal weight Derm: no unusual rashes/lesions no unusual ecchymoses, warm, dry Head: atraumatic, normocephalic, symmetric Eyes: EOMI, no lid lag, anicteric sclera, pupils equal round reactive to light ENT: Nose and ears atraumatic, no thrush, no pharyngeal erythema Neck: No thyromegaly, no cervical lymphadenopathy, trachea midline, supple Mouth: no lip lesion, mucus membranes moist Cardiovascular: S1S2 reg, no murmur, positive posterior tibial pulse bilateral, no edema, capillary refill less than 2 seconds Lungs: CTA bilateral, no rhonchi, no rales , no accessory muscle use Abdominal: soft, nontender to palpation, no guarding, no appreciable o rganomegaly, normal bowel sounds Ext: no gross muscle atrophy, muscle strength 5 out of 5 in all 4 extremities grossly, no contractures, Neuro: CN II-XI grossly intact, light touch intact all 4 extremities, finger to nose within normal limits, Psych: Alert, oriented, appropriate affect Assessment/plan: Acute kidney injury on chronic kidney disease -Continue IV fluids -Monitor BMP Inhalants abuse -Strongly advised on the importance of cessation Chronic conditions: Type II DM, hypertension, hyperlipidemia -Lispro insulin sliding scale blood glucose monitoring -Check A1c -Continue the remaining home medications DVT prophylaxis -Heparin subq The patient is admitted with an anticipated less than 2 midnight stay for evaluation of JACKIE CODE STATUS: Full Code Discussed with: Patient Anticipated discharge date: Patient Anticipated discharge place: [facility] A total of 35 minutes was spent on the care of this complex patient more than 50% of the time was spent in counseling and care coordination. 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, neuropathy, anxiety History of Any Multi-Drug Resistant Organisms: None Reported Past Surgical History: Joint Replacement Additional Past Surgical History / Comment(s): bilateral cataract removed, Both hips replaced, right heal shattered- screws/plates/ pins, cardiac cath 06/18/20 Past Anesthesia/Blood Transfusion Reactions: No Reported Reaction Past Psychological History: Anxiety, Bipolar, Depression, Schizoaffective Disorder Smoking Status: Current every day smoker Past Alcohol Use History: Occasional, Rare Past Drug Use History: None Reported Additional Drug Use History / Comment(s): huffing-on & off for last year, once in a while-6 cans - Past Family History family Additional Family Medical History / Comment(s): anxiety Medications and Allergies Home Medications Medication Instructions Recorded Confirmed Type Pantoprazole [Protonix] 40 mg PO HS 30 Days tablet. 03/24/20 10/16/20 Rx Pravastatin Sodium [Pravachol] 40 mg PO HS 30 Days tab 03/24/20 10/16/20 Rx Gemfibrozil [Lopid] 600 mg PO BID 06/15/20 10/16/20 History metFORMIN HCL 1,000 mg PO BID #60 tab 06/18/20 10/16/20 Rx Fenofibrate [Lofibra] 160 mg PO DAILY 30 Days tab 07/12/20 10/16/20 Rx OLANZapine [ZyPREXA] 10 mg PO HS 30 Days tab 07/12/20 10/16/20 Rx PARoxetine [Paxil] 40 mg PO DAILY 30 Days tab 07/12/20 10/16/20 Rx Sodium Bicarbonate Tab 650 mg PO BID 30 Days tab 07/12/20 10/16/20 Rx amLODIPine [Norvasc] 10 mg PO DAILY 30 Days tab 07/12/20 10/16/20 Rx cloNIDine HCL [Catapres] 0.1 mg PO BID 30 Days tab 07/12/20 10/16/20 Rx Gabapentin 800 mg PO TID 05/22/21 05/22/21 History Prazosin HCl 2 mg PO HS 10/16/20 10/16/20 History busPIRone HCL 30 mg PO BID 10/16/20 10/16/20 History carvediloL [Coreg*] 12.5 mg PO BID 10/16/20 10/16/20 History glipiZIDE [Glucotrol] 20 mg PO BID 10/16/20 10/16/20 History Allergies Allergy/AdvReac Type Severity Reaction Status Date / Time thimerosal Allergy Severe Rash/Hives/throat Verified 10/16/20 17:42 swelling neomycin Allergy Rash/Hives Verified 10/16/20 17:42 Physical Exam Vitals: Vital Signs Temp Pulse Resp BP BP Pulse Ox 10/16/20 20:11 97.9 F 20 98/64 96 10/16/20 19:57 89 18 98 10/16/20 18:38 98.4 F 89 16 129/93 97 10/16/20 17:18 98.7 F 10/16/20 17:14 95 16 151/85 98 10/16/20 15:03 100 F H 115 H 20 140/96 98 Intake and Output 10/16/20 10/16/20 10/16/20 06:59 14:59 22:59 Other: Weight 83.915 kg Results CBC & Chem 7: 10/16/20 15:55 10/16/20 15:55 Labs: Abnormal Lab Results - Last 24 Hours (Table) 10/16/20 10/16/20 10/16/20 Range/Units 15:55 15:55 15:55 RBC 4.18 L (4.30-5.90) m/uL Hgb 11.9 L (13.0-17.5) gm/dL Hct 36.4 L (39.0-53.0) % Chloride 108 H (98-107) mmol/L BUN 34 H (9-20) mg/dL Creatinine 3.06 H (0.66-1.25) mg/dL Glucose 167 H (74-99) mg/dL POC Glucose (mg/dL) (75-99) mg/dL Urine Protein Trace H (Negative) Urine Glucose (UA) 1+ H (Negative) Hyaline Casts 23 H (0-2) /lpf Urine Mucus Rare H (None) /hpf 10/16/20 Range/Units 21:16 RBC (4.30-5.90) m/uL Hgb (13.0-17.5) gm/dL Hct (39.0-53.0) % Chloride (98-107) mmol/L BUN (9-20) mg/dL Creatinine (0.66-1.25) mg/dL Glucose (74-99) mg/dL POC Glucose (mg/dL) 248 H (75-99) mg/dL Urine Protein (Negative) Urine Glucose (UA) (Negative) Hyaline Casts (0-2) /lpf Urine Mucus (None) /hpf
[2020-10-17] MEDS: HEPARIN SODIUM,PORCINE/PF 5,000 UNIT/0.5 ML SYRINGE SQ SCH ×4 (02:15→21:37)
[2020-10-17] MEDS: LORazepam 2 MG/ML INJ IV PRN ×3 (04:40→21:38)
[2020-10-17 07:15] LABS: Glucose,Whole Blood 186 mg/dL (75-99)
[2020-10-17] MEDS: GABAPENTIN 400 MG CAP PO SCH ×3 (08:11→21:37)
[2020-10-17] MEDS: INSULIN ASPART (NovoLOG) 100 UNIT/ML VIAL SQ SCH ×4 (08:11→22:28)
[2020-10-17] MEDS: SODIUM BICARBONATE TAB 650 MG TAB PO SCH ×2 (08:11→21:37)
[2020-10-17] MEDS: SODIUM CHLORIDE 0.9% 1,000 ML IV SCH ×2 (08:11→17:40)
[2020-10-17] MEDS: PARoxetine 20 MG TAB PO SCH (08:12)
[2020-10-17] MEDS: busPIRone HCl 10 MG TAB PO SCH ×2 (08:12→21:36)
[2020-10-17] MEDS: cloNIDine HCL 0.1 MG TAB PO SCH ×2 (08:12→21:37)
--- NOTE | 2020-10-17 08:55 | P.NPCON ---
History of Present Illness - Reason for Consult Consult date: 10/17/20 acute renal failure - Chief Complaint Acute kidney injury - History of Present Illness Is a 55-year-old male who is seen in consultation because of acute kidney injury, history of inhalation abuse with a compressed air cans. He admits to poor intake of both food and liquids. No nausea vomiting no diarrhea. No abdominal pain. Denies any chest pain shortness of breath headache seizures syncope. He is known to us with acute kidney injury, hyperkalemia and hypomagnesemia in the past No history of alcohol abuse or other drug abuse currently Creatinine was 3 on admission he was started on IV fluids. He says is making plenty of urine. Repeat labs this morning are not available Past history significant for diabetes for about 20 years, sleep apnea, bilateral hip replacements in 2017 anxiety and peripheral neuropathy. 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, neuropathy, anxiety History of Any Multi-Drug Resistant Organisms: None Reported Past Surgical History: Joint Replacement Additional Past Surgical History / Comment(s): bilateral cataract removed, Both hips replaced, right heal shattered- screws/plates/ pins, cardiac cath 06/18/20 Past Anesthesia/Blood Transfusion Reactions: No Reported Reaction Past Psychological History: Anxiety, Bipolar, Depression, Schizoaffective Disorder Smoking Status: Current every day smoker Past Alcohol Use History: Occasional, Rare Past Drug Use History: None Reported Additional Drug Use History / Comment(s): huffing-on & off for last year, once in a while-6 cans - Past Family History family Additional Family Medical History / Comment(s): anxiety Medications and Allergies Home Medications Medication Instructions Recorded Confirmed Type Pantoprazole [Protonix] 40 mg PO HS 30 Days tablet. 03/24/20 10/16/20 Rx Pravastatin Sodium [Pravachol] 40 mg PO HS 30 Days tab 03/24/20 10/16/20 Rx Gemfibrozil [Lopid] 600 mg PO BID 06/15/20 10/16/20 History metFORMIN HCL 1,000 mg PO BID #60 tab 06/18/20 10/16/20 Rx Fenofibrate [Lofibra] 160 mg PO DAILY 30 Days tab 07/12/20 10/16/20 Rx OLANZapine [ZyPREXA] 10 mg PO HS 30 Days tab 07/12/20 10/16/20 Rx PARoxetine [Paxil] 40 mg PO DAILY 30 Days tab 07/12/20 10/16/20 Rx Sodium Bicarbonate Tab 650 mg PO BID 30 Days tab 07/12/20 10/16/20 Rx amLODIPine [Norvasc] 10 mg PO DAILY 30 Days tab 07/12/20 10/16/20 Rx cloNIDine HCL [Catapres] 0.1 mg PO BID 30 Days tab 07/12/20 10/16/20 Rx Gabapentin 800 mg PO TID 10/16/20 10/16/20 History Prazosin HCl 2 mg PO HS 10/16/20 10/16/20 History busPIRone HCL 30 mg PO BID 10/16/20 10/16/20 History carvediloL [Coreg*] 12.5 mg PO BID 10/16/20 10/16/20 History glipiZIDE [Glucotrol] 20 mg PO BID 10/16/20 10/16/20 History Allergies Allergy/AdvReac Type Severity Reaction Status Date / Time thimerosal Allergy Severe Rash/Hives/throat Verified 10/16/20 17:42 swelling neomycin Allergy Rash/Hives Verified 10/16/20 17:42 Physical Exam Vitals: Vital Signs Temp Pulse Pulse Resp BP BP Pulse Ox 10/17/20 08:00 97.9 F 100 19 129/84 97 10/17/20 03:15 97.7 F 81 18 109/66 96 10/16/20 20:11 97.9 F 20 98/64 96 10/16/20 19:57 89 18 98 10/16/20 18:38 98.4 F 89 16 129/93 97 10/16/20 17:18 98.7 F 10/16/20 17:14 95 16 151/85 98 10/16/20 15:03 100 F H 115 H 20 140/96 98 Intake and Output 10/16/20 10/17/20 10/17/20 22:59 06:59 14:59 Intake Total 2570 Balance 2570 Intake: Intake, IV Titration 1320 Amount Sodium Chloride 0.9% 1, 320 000 ml @ 80 mls/hr IV . [id number] [facility] Rx#:[id number] Sodium Chloride 0.9% 1, 1000 000 ml @ 999 mls/hr IV . Q1H1M [facility] Rx#:[id number] Oral 1250 Other: Weight 83.915 kg On exam concurrently is awake alert oriented. HEENT exam no JVP neck is supple no facial asymmetry Lungs clear to auscultation good air entry bilaterally Heart sounds are unremarkable for any murmur rub gallop Abdomen soft nontender no masses felt Extremity exam was no edema Neurologically awake alert oriented no asterixis Results - Lab Results Most recent lab results Calcium 9.8 mg/dL (8.4-10.2) 10/16/20 15:55 10/16/20 15:55 10/16/20 15:55 Assessment and Plan Assessment: Impression 1. Acute kidney injury likely from volume depletion with poor intake. Blood pr essure is somewhat low in the 90s to 120 range 2. Admitted with history of inhaling compressed air cans, awake and alert 3. Diabetes mellitus for 20 years, with some neuropathy 4. Chronic kidney disease, stage III, creatinine has been 1.14 dated 07/09/2020 with urine protein to creatinine ratio of 0.36 on 07/04/2020 and an ultrasound kidney showing 9.8 cm and 10.1 similar kidney 5. History of depression 6. History of hyperkalemia in the past, potassium was 6.6 on 01/15/2020 7. Hypertension currently blood pressure is somewhat low on clonidine 0.1 twice a day and prazosin 2 mg at bedtime Recommendation 1. Agree with continuation of IV fluids normal saline at 80 an hour. 2. Check renal profile today 3. Discontinue clonidine, given potential of noncompliance. 4. Maintain prazosin currently on 2 mg ,Watch blood pressure and adjust blood pressure medications as needed. Thank you for this consultation and we'll continue to follow closely
[2020-10-17 09:52] LABS: Anion Gap 5.3 mmol/L (4.00-12.00); BUN/Creat Ratio 17.5 Ratio (12.00-20.00); Calcium 8.5 mg/dL (8.7-10.3); Carbon Dioxide 22.7 mmol/L (21.6-31.8); Non-African American GFR(CKD) 47.5 (60.0-200.0); Potassium 4.4 mmol/L (3.5-5.5)
--- NOTE | 2020-10-17 10:19 | P.PN ---
<Ajit Rudolph - Last Filed: 10/17/20 10:04> Subjective Progress Note Date: 10/17/20 Hospital course: Patient is a 55-year-old male with a past medical history of hypertension, hyp erlipidemia, diabetes mellitus type 2, obstructive sleep apnea, anxiety, and inhalants abuse. Patient reportedly presented to the hospital on the evening of 10/16/20 after reportedly being found by the police huffing aerosol cans in the [employer] parking lot. Patient reportedly Huffs approximately 6-7 aerosolized cans daily and has done so for the past 2 years. Upon arrival to facility patient received full workup in the emergency department and was found to have an acute kidney injury with a creatinine of 3.060 which was significantly up from his baseline creatinine of 1.5. Patient was admitted under our services along with consultation to nephrology. Physical exam: Patient seen and fully evaluated at the bedside this morning. Patient slightly withdrawn and appeared to have paranoid behaviors. Attempted to discuss possibility of drug and alcohol rehabilitation program once medically stable, patient adamantly declined at this time. Patient denied having any complaints including headache, lightheadedness, dizziness, changes in his vision or hearing, chest pain, palpitations, shortness of breath, abdominal pain, nausea, changes in appetite, vomiting, changes in her difficulties with urinary or bowel function, or experiencing any numbness/tingling/weakness of his extremities. General: non toxic, no distress, appears at stated age Derm: warm, dry Head: atraumatic, normocephalic, symmetric Eyes: EOMI, no lid lag, anicteric sclera Mouth: no lip lesion, mucus membranes moist Cardiovascular: S1S2 reg, no murmur, positive posterior tibial pulse bilateral, Lungs: CTA bilateral, no rhonchi, no rales , no accessory muscle use Abdominal: soft, nontender to palpation, no guarding, no appreciable organomegaly Ext: no gross muscle atrophy, no edema, no contractures Neuro: CN II-XI grossly intact, no focal neuro deficits Psych: Alert, oriented, anxious and slightly paranoid behavior Plan of care: Acute kidney injury, improving -BUN 28, creatinine 1.6, and GFR of 47.5. -Continuation of gentle hydration with 0.9% normal saline at 80 mL's per hour we will continue to monitor with repeat a.m. labs. -Nephrology following recommended discontinuing of clonidine and maintaining prazosin at 2 mg with close monitoring of blood pressures. -Urinalysis is positive for protein and glucose but negative for blood or infection. -We will continue to monitor renal function closely with repeat a.m. labs. Inhalants abuse -Discussed possibility of possible assistance with placement in rehabilitation center for drug and alcohol abuse once he is medically stable, patient adamantly against this at this time. Patient educated on the importance of cessation of inhalants and risks of continued use up to and including . Tox-rftmiuo-jjvwdpyoz diabetes mellitus type 2 -Hold oral glycemic medications in place patient on glycemic protocol with NovoLog sliding scale. -Hemoglobin A1c 7.5%. Other chronic conditions including: Hypertension, hyperlipidemia, and obstructive sleep apnea -Monitor vital signs and continue daily medication management. -Heart healthy carb consistent diet. CODE STATUS: Full code DVT prophylaxis: Heparin Discussed with: Patient and RN Anticipated discharge date: possibly tomorrow. Anticipated discharge place: home A total of 45 minutes was spent on the care of this complex patient more than 50 % of the time was spent in counseling and care coordination. Objective - Vital Signs Vital signs: Vital Signs Temp 97.9 F 10/17/20 08:00 Pulse 100 10/17/20 08:00 Resp 19 10/17/20 08:00 BP 129/84 10/17/20 08:00 Pulse Ox 97 10/17/20 08:00 Intake & Output 10/16/20 10/17/20 10/17/20 18:59 06:59 18:59 Intake Total 2570 Balance 2570 Weight 83.915 kg 83.915 kg Intake: Intake, IV Titration 1320 Amount Sodium Chloride 0.9% 1, 320 000 ml @ 80 mls/hr IV . [id number] [facility] Rx#:[id number] Sodium Chloride 0.9% 1, 1000 000 ml @ 999 mls/hr IV . Q1H1M ONE Rx#:[id number] Oral 1250 - Labs CBC & Chem 7: 10/16/20 15:55 10/17/20 05:57 Labs: Abnormal Lab Results - Last 24 Hours (Table) 10/16/20 10/16/20 10/16/20 Range/Units 15:55 15:55 15:55 RBC 4.18 L (4.30-5.90) m/uL Hgb 11.9 L (13.0-17.5) gm/dL Hct 36.4 L (39.0-53.0) % Chloride 108 H (98-107) mmol/L BUN 34 H (9-20) mg/dL Creatinine 3.06 H (0.66-1.25) mg/dL Est GFR (CKD-EPI)AfAm (60.0-200.0) Est GFR (CKD-EPI)NonAf (60.0-200.0) Glucose 167 H (74-99) mg/dL POC Glucose (mg/dL) (75-99) mg/dL Calcium (8.7-10.3) mg/dL Urine Protein Trace H (Negative) Urine Glucose (UA) 1+ H (Negative) Hyaline Casts 23 H (0-2) /lpf Urine Mucus Rare H (None) /hpf 10/16/20 10/17/20 10/17/20 Range/Units 21:16 05:57 07:13 RBC (4.30-5.90) m/uL Hgb (13.0-17.5) gm/dL Hct (39.0-53.0) % Chloride (98-107) mmol/L BUN 28.0 H (9-20) mg/dL Creatinine 1.6 H (0.66-1.25) mg/dL Est GFR (CKD-EPI)AfAm 55.0 L (60.0-200.0) Est GFR (CKD-EPI)NonAf 47.5 L (60.0-200.0) Glucose 178 H (74-99) mg/dL POC Glucose (mg/dL) 248 H 186 H (75-99) mg/dL Calcium 8.5 L (8.7-10.3) mg/dL Urine Protein (Negative) Urine Glucose (UA) (Negative) Hyaline Casts (0-2) /lpf Urine Mucus (None) /hpf <Ezio Smith - Last Filed: 10/17/20 12:12> Objective - Vital Signs Vital signs: Vital Signs Temp 97.9 F 10/17/20 08:00 Pulse 100 10/17/20 08:00 Resp 19 10/17/20 08:00 BP 129/84 10/17/20 08:00 Pulse Ox 97 10/17/20 08:00 Intake & Output 10/16/20 10/17/20 10/17/20 18:59 06:59 18:59 Intake Total 2570 Balance 2570 Weight 83.915 kg 83.915 kg Intake: Intake, IV Titration 1320 Amount Sodium Chloride 0.9% 1, 320 000 ml @ 80 mls/hr IV . [id number] [facility] Rx#:[id number] Sodium Chloride 0.9% 1, 1000 000 ml @ 999 mls/hr IV . Q1H1M [facility] Rx#:[id number] Oral 1250 - Labs CBC & Chem 7: 10/17/20 05:57 10/17/20 05:57 Labs: Abnormal Lab Results - Last 24 Hours (Table) 10/16/20 10/16/20 10/16/20 Range/Units 15:55 15:55 15:55 WBC (4.50-10.00) X 10*3/uL RBC 4.18 L (4.30-5.90) m/uL Hgb 11.9 L (13.0-17.5) gm/dL Hct 36.4 L (39.0-53.0) % MCHC (32.0-37.0) g/dL Chloride 108 H (98-107) mmol/L BUN 34 H (9-20) mg/dL Creatinine 3.06 H (0.66-1.25) mg/dL Est GFR (CKD-EPI)AfAm (60.0-200.0) Est GFR (CKD-EPI)NonAf (60.0-200.0) Glucose 167 H (74-99) mg/dL POC Glucose (mg/dL) (75-99) mg/dL Calcium (8.7-10.3) mg/dL Urine Protein Trace H (Negative) Urine Glucose (UA) 1+ H (Negative) Hyaline Casts 23 H (0-2) /lpf Urine Mucus Rare H (None) /hpf 10/16/20 10/17/20 10/17/20 Range/Units 21:16 05:57 05:57 WBC 10.14 H (4.50-10.00) X 10*3/uL RBC 3.48 L (4.30-5.90) m/uL Hgb 9.9 L (13.0-17.5) gm/dL Hct 31.0 L (39.0-53.0) % MCHC 31.9 L (32.0-37.0) g/dL Chloride (98-107) mmol/L BUN 28.0 H (9-20) mg/dL Creatinine 1.6 H (0.66-1.25) mg/dL Est GFR (CKD-EPI)AfAm 55.0 L (60.0-200.0) Est GFR (CKD-EPI)NonAf 47.5 L (60.0-200.0) Glucose 178 H (74-99) mg/dL POC Glucose (mg/dL) 248 H (75-99) mg/dL Calcium 8.5 L (8.7-10.3) mg/dL Urine Protein (Negative) Urine Glucose (UA) (Negative) Hyaline Casts (0-2) /lpf Urine Mucus (None) /hpf 10/17/20 10/17/20 Range/Units 07:13 11:31 WBC (4.50-10.00) X 10*3/uL RBC (4.30-5.90) m/uL Hgb (13.0-17.5) gm/dL Hct (39.0-53.0) % MCHC (32.0-37.0) g/dL Chloride (98-107) mmol/L BUN (9-20) mg/dL Creatinine (0.66-1.25) mg/dL Est GFR (CKD-EPI)AfAm (60.0-200.0) Est GFR (CKD-EPI)NonAf (60.0-200.0) Glucose (74-99) mg/dL POC Glucose (mg/dL) 186 H 198 H (75-99) mg/dL Calcium (8.7-10.3) mg/dL Urine Protein (Negative) Urine Glucose (UA) (Negative) Hyaline Casts (0-2) /lpf Urine Mucus (None) /hpf Assessment and Plan Assessment: I reviewed the documentation as provided by the PABLO above, who is the original author of this note. I agree with the documented assessment and plan, with the following changes: None
[2020-10-17 10:39] LABS: Basophils # (A) 0.05 X 10*3/uL (0.00-0.10); Basophils % (A) 0.5 %; Eosinophils # (A) 0.16 X 10*3/uL (0.04-0.35); Eosinophils % (A) 1.6 %; HGB 9.9 g/dL (13.0-17.0); Lymphocytes # (A) 2.23 X 10*3/uL (0.90-5.00); MCH 28.4 pg (27.0-32.0); MCHC 31.9 g/dL (32.0-37.0); MCV 89.1 fL (80.0-97.0); Mean Platelet Volume 9.6 fL (9.5-12.2); Monocytes # (A) 0.69 X 10*3/uL (0.20-1.00); Monocytes % (A) 6.8 %; Neutrophils # (A) 6.97 X 10*3/uL (1.80-7.70); Neutrophils % (A) 68.7 %; Platelet Count 331 X 10*3/uL (140-440); RBC 3.48 X 10*6/uL (4.40-5.60); RDW 13.5 % (11.5-14.5); WBC 10.14 X 10*3/uL (4.50-10.00)
[2020-10-17 11:32] LABS: Glucose,Whole Blood 198 mg/dL (75-99)
[2020-10-17 12:29] LABS: Magnesium 1.6 mg/dL (1.5-2.4)
[2020-10-17 14:45] LABS: Hemoglobin A1C 9.6 % (4.0-6.0)
[2020-10-17 16:33] LABS: Glucose,Whole Blood 228 mg/dL (75-99)
[2020-10-17] MEDS ORDERED: PRAVASTATIN SODIUM 40 MG TAB PO SCH (21:00)
[2020-10-17] MEDS ORDERED: OLANZapine 10 MG TAB PO SCH (21:00)
[2020-10-17] MEDS ORDERED: PRAZOSIN 1 MG CAP PO SCH (21:00)
[2020-10-17] MEDS ORDERED: PANTOPRAZOLE 40 MG TABLET PO SCH (21:00)
[2020-10-17 21:20] LABS: Glucose,Whole Blood 163 mg/dL (75-99)
[2020-10-18 02:23] VITALS: RESP 18
[2020-10-18 07:04] LABS: Glucose,Whole Blood 210 mg/dL (75-99)
[2020-10-18] MEDS: cloNIDine HCL 0.1 MG TAB PO SCH (07:49)
[2020-10-18] MEDS: PARoxetine 20 MG TAB PO SCH (07:49)
[2020-10-18] MEDS: SODIUM CHLORIDE 0.9% 1,000 ML IV SCH (07:49)
[2020-10-18] MEDS: GABAPENTIN 400 MG CAP PO SCH (07:49)
[2020-10-18] MEDS: HEPARIN SODIUM,PORCINE/PF 5,000 UNIT/0.5 ML SYRINGE SQ SCH (07:49)
[2020-10-18] MEDS: busPIRone HCl 10 MG TAB PO SCH (07:49)
[2020-10-18] MEDS: SODIUM BICARBONATE TAB 650 MG TAB PO SCH (07:49)
[2020-10-18] MEDS: INSULIN ASPART (NovoLOG) 100 UNIT/ML VIAL SQ SCH ×2 (08:00→12:32)
[2020-10-18] MEDS: LORazepam 2 MG/ML INJ IV PRN ×2 (08:01→13:27)
[2020-10-18 08:03] VITALS: TEMP 97.7
[2020-10-18 08:24] LABS: HCT 35.3 % (39.0-53.0); HGB 11.6 gm/dL (13.0-17.5); MCH 28.8 pg (25.0-35.0); MCHC 32.8 g/dL (31.0-37.0); MCV 87.8 fL (80.0-100.0); Mean Platelet Volume 7.2; Platelet Count 327 k/uL (150-450); RBC 4.02 m/uL (4.30-5.90); RDW 13.9 % (11.5-15.5); WBC 5.9 k/uL (3.8-10.6)
[2020-10-18 09:00] LABS: African American GFR (CKD) 73 (>60 ml/min/1.73 sqM); Anion Gap 6 mmol/L; Blood Urea Nitrogen 21 mg/dL (9-20); Carbon Dioxide 24 mmol/L (22-30); Chloride 109 mmol/L (98-107); Glucose 224 mg/dL (74-99); Magnesium 1.4 mg/dL (1.6-2.3); Non-African American GFR(CKD) 63 (>60 ml/min/1.73 sqM); Potassium 5.2 mmol/L (3.5-5.1); Sodium 139 mmol/L (137-145)
[2020-10-18] MEDS: MAGNESIUM SULFATE-D5W PMX 1 GM in DEXTROSE/WATER 1 100ML.BAG IVPB SCH ×4 (10:56→15:13)
[2020-10-18 11:56] LABS: Glucose,Whole Blood 220 mg/dL (75-99)
--- NOTE | 2020-10-18 13:05 | P.PN ---
Subjective Patient is seen in follow-up for acute kidney injury. Renal function improving. Oral intake is good. No vomiting or diarrhea. Vital signs are stable. General: The patient appeared well nourished and normally developed. HEENT: Head exam is unremarkable. Neck is without jugular venous distension. LUNGS: Breath sounds decreased. HEART: Rate and Rhythm are regular. ABDOMEN: Soft, no distention. EXTREMITITES: No edema. Objective - Vital Signs Vital signs: Vital Signs Temp 97.7 F 10/18/20 07:19 Pulse 88 10/18/20 07:19 Resp 18 10/18/20 07:19 BP 151/111 10/18/20 07:19 Pulse Ox 97 10/18/20 07:19 Intake & Output 10/17/20 10/18/20 10/18/20 18:59 06:59 18:59 Intake Total 2200 Balance 2200 Intake: Intake, IV Titration 800 Amount Sodium Chloride 0.9% 1, 800 000 ml @ 80 mls/hr IV . [id number] [facility] Rx#:[id number] Oral 1400 Other: # Voids 3 - Labs CBC & Chem 7: 10/18/20 07:41 10/18/20 07:41 Labs: Abnormal Lab Results - Last 24 Hours (Table) 10/17/20 10/17/20 10/17/20 Range/Units 05:57 16:32 21:18 RBC (4.30-5.90) m/uL Hgb (13.0-17.5) gm/dL Hct (39.0-53.0) % Potassium (3.5-5.1) mmol/L Chloride (98-107) mmol/L BUN (9-20) mg/dL Creatinine (0.66-1.25) mg/dL Glucose (74-99) mg/dL POC Glucose (mg/dL) 228 H 163 H (75-99) mg/dL Hemoglobin A1c 9.6 H (4.0-6.0) % Magnesium (1.6-2.3) mg/dL 10/18/20 10/18/20 10/18/20 Range/Units 07:02 07:41 07:41 RBC 4.02 L (4.30-5.90) m/uL Hgb 11.6 L (13.0-17.5) gm/dL Hct 35.3 L (39.0-53.0) % Potassium 5.2 H (3.5-5.1) mmol/L Chloride 109 H (98-107) mmol/L BUN 21 H (9-20) mg/dL Creatinine 1.27 H (0.66-1.25) mg/dL Glucose 224 H (74-99) mg/dL POC Glucose (mg/dL) 210 H (75-99) mg/dL Hemoglobin A1c (4.0-6.0) % Magnesium 1.4 L (1.6-2.3) mg/dL 10/18/20 Range/Units 11:52 RBC (4.30-5.90) m/uL Hgb (13.0-17.5) gm/dL Hct (39.0-53.0) % Potassium (3.5-5.1) mmol/L Chloride (98-107) mmol/L BUN (9-20) mg/dL Creatinine (0.66-1.25) mg/dL Glucose (74-99) mg/dL POC Glucose (mg/dL) 220 H (75-99) mg/dL Hemoglobin A1c (4.0-6.0) % Magnesium (1.6-2.3) mg/dL Assessment and Plan Plan: Assessment: 1. Acute kidney injury mostly prerenal secondary to hypovolemia improving with IV hydration. Creatinine 1.27 today. 2. Hypomagnesemia from poor intake. Being replaced. 3. Diabetes mellitus. 4. Chronic kidney disease stage III with baseline creatinine 1.1-1.3. 5. Hypertension with chronic kidney disease. Stable. Plan: Maintain IV hydration. Magnesium being replaced. Encourage oral intake. Anticipate discharge soon. Follow up outpatient in 1-2 weeks.
[2020-10-18 14:33] VITALS: BMI 29.0
--- NOTE | 2020-10-18 14:34 | P.DS ---
<Ajit Rudolph - Last Filed: 10/18/20 14:23> Providers Expected date of discharge: 10/18/20 Hospital Course: Discharge Diagnosis: Acute kidney injury, improving Inhalants abuse Anf-xxqpnth-nuheuonpz diabetes mellitus type 2 Hypertension Hyperlipidemia Obstructive sleep apnea Hospital Course: Patient is a 55-year-old male with a past medical history of hypertension, hyperlipidemia, diabetes mellitus type 2, obstructive sleep apnea, anxiety, and inhalants abuse. Patient reportedly presented to the hospital on the evening of 10/16/20 after reportedly being found by the police huffing aerosol cans in the [employer] parking lot. Patient reportedly Huffs approximately 6-7 aerosolized cans daily and has done so for the past 2 years. Upon arrival to facility patient received full workup in the emergency department and was found to have an acute kidney injury with a creatinine of 3.060 which was significantly up from his baseline creatinine of 1.5. Patient was admitted under our services along with consultation to nephrology. He received IV hydration resulting in significant improvement of renal function with BUN 21, creatinine 1.27, and GFR of 63. Patient was found to have significant hypomagnesemia throughout hospitalization requiring replacement. Patient being discharged home on oral magnesium supplements and instructed on importance of taking daily. Patient's hemoglobin A1c was 9.6 however patient does report that he has not been taking his oral diabetic medications. Patient strongly encouraged to resume taking metformin and glipizide as directed and risks of continued medical noncompliance. Patient being discharged home and to follow up with PCP in 2 days and given prescription for follow-up on electrolyte levels and renal function with results to be sent back to PCP. Patient educated on the importance of cessation of Huffing/Abuse of inhalants and risks of continued use up to and including . Physical exam: Patient seen and fully evaluated at the bedside this morning. Renal function significantly improved. Patient continues to deny having any complaints including headache, lightheadedness, dizziness, changes in his vision or hearing, chest pain, palpitations, shortness of breath, abdominal pain, nausea, changes in appetite, vomiting, changes in her difficulties with urinary or bowel function, or experiencing any numbness/tingling/weakness of his extremities. General: non toxic, no distress, appears at stated age Derm: warm, dry Head: atraumatic, normocephalic, symmetric Eyes: EOMI, no lid lag, anicteric sclera Mouth: no lip lesion, mucus membranes moist Cardiovascular: S1S2 reg, no murmur, positive posterior tibial pulse bilateral, Lungs: CTA bilateral, no rhonchi, no rales , no accessory muscle use Abdominal: soft, nontender to palpation, no guarding, no appreciable organomegaly Ext: no gross muscle atrophy, no edema, no contractures Neuro: CN II-XI grossly intact, no focal neuro deficits Psych: Alert, oriented, anxious and slightly paranoid behavior A total of 45 minutes of time were spent preparing this complex discharge summary. Assessment: I reviewed the documentation as provided by the PABLO above, who is the original author of this note. I agree with the documented assessment and plan, with the following changes: None Patient Condition at Discharge: Stable Plan - Discharge Summary Discharge Rx Participant: Yes New Discharge Prescriptions: New Magnesium Oxide [Mag-Oxide] 200 mg PO DAILY 30 Days #30 tablet Continue Pantoprazole [Protonix] 40 mg PO HS 30 Days tablet. Pravastatin Sodium [Pravachol] 40 mg PO HS 30 Days tab Gemfibrozil [Lopid] 600 mg PO BID metFORMIN HCL 1,000 mg PO BID #60 tab cloNIDine HCL [Catapres] 0.1 mg PO BID 30 Days tab Fenofibrate [Lofibra] 160 mg PO DAILY 30 Days tab amLODIPine [Norvasc] 10 mg PO DAILY 30 Days tab PARoxetine [Paxil] 40 mg PO DAILY 30 Days tab Sodium Bicarbonate Tab 650 mg PO BID 30 Days tab OLANZapine [ZyPREXA] 10 mg PO HS 30 Days tab glipiZIDE [Glucotrol] 20 mg PO BID Prazosin HCl 2 mg PO HS Gabapentin 800 mg PO TID busPIRone HCL 30 mg PO BID carvediloL [Coreg*] 12.5 mg PO BID Discharge Medication List Pantoprazole [Protonix] 40 mg PO HS 30 Days tablet. 03/24/20 [Rx] Pravastatin Sodium [Pravachol] 40 mg PO HS 30 Days tab 03/24/20 [Rx] Gemfibrozil [Lopid] 600 mg PO BID 06/15/20 [History] metFORMIN HCL 1,000 mg PO BID #60 tab 06/18/20 [Rx] Fenofibrate [Lofibra] 160 mg PO DAILY 30 Days tab 07/12/20 [Rx] OLANZapine [ZyPREXA] 10 mg PO HS 30 Days tab 07/12/20 [Rx] PARoxetine [Paxil] 40 mg PO DAILY 30 Days tab 07/12/20 [Rx] Sodium Bicarbonate Tab 650 mg PO BID 30 Days tab 07/12/20 [Rx] amLODIPine [Norvasc] 10 mg PO DAILY 30 Days tab 07/12/20 [Rx] cloNIDine HCL [Catapres] 0.1 mg PO BID 30 Days tab 07/12/20 [Rx] Gabapentin 800 mg PO TID 10/16/20 [History] Prazosin HCl 2 mg PO HS 10/16/20 [History] busPIRone HCL 30 mg PO BID 10/16/20 [History] carvediloL [Coreg*] 12.5 mg PO BID 10/16/20 [History] glipiZIDE [Glucotrol] 20 mg PO BID 10/16/20 [History] Magnesium Oxide [Mag-Oxide] 200 mg PO DAILY 30 Days #30 tablet 10/18/20 [Rx] Follow up Appointment(s)/Referral(s): Marlen Mobley MD [Primary Care Provider] - 10/21/20 1:30 pm Ambulatory/Diagnostic Orders: Comprehensive Metabolic Panel [LAB.AMB] Time Frame: 3 Days, Location: None Selected Magnesium [LAB.AMB] Time Frame: 3 Days, Location: None Selected Activity/Diet/Wound Care/Special Instructions: Activity: As tolerated Diet: Heart healthy Special Instructions: Please abstain from huffing, as this can cause significant adverse health effects up to and including . Discharge Disposition: HOME SELF-CARE <Ezio Smith - Last Filed: 10/18/20 17:24> Providers Date of admission: 10/16/20 18:31 Attending physician: Ezio Smith MD Consults: 10/16/20 18:32 Consult Physician Urgent Consulting Provider: Ericka Grayson Consult Reason/Comments: acute renal insufficiency Do you want consulting provider notified?: Yes Primary care physician: Marlen Mobley
[2020-10-18 14:42] VITALS: BP 106/69; PULSE 99
== END 2020-10-18 16:58 | disposition home or self-care (01) ==
LOC: EC 14:52 → 4SSUR 18:31
PROVIDERS: ADMIT Internal Medicine; ATTEND Internal Medicine
DX: N17.9 Acute kidney failure, unspecified (principal); N18.30 Chronic kidney disease, stage 3 unspecified; I12.9 Hypertensive chronic kidney disease with stage 1 through stage 4 chronic kidney disease, or unspecified chronic kidney disease; E11.22 Type 2 diabetes mellitus with diabetic chronic kidney disease; E78.5 Hyperlipidemia, unspecified; F18.10 Inhalant abuse, uncomplicated; Z59.0 Homelessness; Z91.14 Patient's other noncompliance with medication regimen; Z20.822 Contact with and (suspected) exposure to COVID-19; F31.9 Bipolar disorder, unspecified; F25.9 Schizoaffective disorder, unspecified; E11.42 Type 2 diabetes mellitus with diabetic polyneuropathy; F06.4 Anxiety disorder due to known physiological condition; E83.42 Hypomagnesemia; E86.1 Hypovolemia; G47.33 Obstructive sleep apnea (adult) (pediatric); F17.200 Nicotine dependence, unspecified, uncomplicated; Z79.899 Other long term (current) drug therapy; Z79.84 Long term (current) use of oral hypoglycemic drugs; Z88.1 Allergy status to other antibiotic agents; Z96.643 Presence of artificial hip joint, bilateral; Z98.42 Cataract extraction status, left eye; Z98.41 Cataract extraction status, right eye
CPT/HCPCS: 96376 ×3; 96361 ×3; 96366; 96372 ×2; 96365; 96375; 99285; 36415; 93005; 80053; 80048 ×2; 82550; 83735 ×2; 85025 ×2; 85027; 81001; 80306; 80143; 83036; 87635; 80179; 71045; 76770; G0378 ×3; G0480; J2060 ×3; J3475; J1644 ×2; 80320

== ENCOUNTER 2020-12-05 | Emergency (ER) | payer MEDICARE, OTHER | END 2020-12-05 22:58 | disposition home or self-care (01) ==

== ENCOUNTER 2021-01-11 00:31 | Emergency (ER) | payer MEDICARE, OTHER ==
[2021-01-11 00:41] VITALS: BP 114/85; PULSE 90; RESP 18; TEMP 98.4
[2021-01-11] MEDS ORDERED: LORazepam 1 MG TAB PO STA (01:14)
--- NOTE | 2021-01-11 01:39 | ED ---
Anxiety HPI - General Chief Complaint: Anxiety Stated Complaint: High BP Time Seen by Provider: 01/11/21 00:43 Source: patient Mode of arrival: ambulatory - History of Present Illness Initial Comments: 55 -year-old male presenting to the emergency department with a chief complaint Acute anxiety. He states of since 10:00 he is experiencing a panic attack. patient reports this feels like his typical panic attack but he does not know the trigger at this time. States she takes Zyprexa and Remeron but they did not alleviate his symptoms tonight. States she has been previously seen in the emergency department for a panic attack. He reports his typical symptoms of this. He denies any homicidal, suicidal thoughts or ideations at this time. - Related Data Home Medications: Home Medications Medication Instructions Recorded Confirmed Gemfibrozil [Lopid] 600 mg PO BID 06/15/20 10/16/20 Gabapentin 800 mg PO TID 10/16/20 10/16/20 Prazosin HCl 2 mg PO HS 10/16/20 10/16/20 busPIRone HCL 30 mg PO BID 10/16/20 10/16/20 carvediloL [Coreg*] 12.5 mg PO BID 10/16/20 10/16/20 glipiZIDE [Glucotrol] 20 mg PO BID 10/16/20 10/16/20 Previous Rx's Medication Instructions Recorded Pantoprazole [Protonix] 40 mg PO HS 30 Days tablet. 03/24/20 Pravastatin Sodium [Pravachol] 40 mg PO HS 30 Days tab 03/24/20 metFORMIN HCL [Glucophage] 1,000 mg PO BID #60 tab 06/18/20 Fenofibrate [Lofibra] 160 mg PO DAILY 30 Days tab 07/12/20 OLANZapine [ZyPREXA] 10 mg PO HS 30 Days tab 07/12/20 PARoxetine [Paxil] 40 mg PO DAILY 30 Days tab 07/12/20 Sodium Bicarbonate Tab 650 mg PO BID 30 Days tab 07/12/20 amLODIPine [Norvasc] 10 mg PO DAILY 30 Days tab 07/12/20 cloNIDine HCL [Catapres] 0.1 mg PO BID 30 Days tab 07/12/20 Magnesium Oxide [Mag-Oxide] 200 mg PO DAILY 30 Days #30 tablet 10/18/20 Allergies/Adverse Reactions: Allergies Allergy/AdvReac Type Severity Reaction Status Date / Time thimerosal Allergy Severe Rash/Hives/throat Verified 01/11/21 00:41 swelling neomycin Allergy Rash/Hives Verified 01/11/21 00:41 Review of Systems ROS Statement: Those systems with pertinent positive or pertinent negative responses have been documented in the HPI. ROS Other: All systems not noted in ROS Statement are negative. Past Medical History Past Medical History: Diabetes Mellitus, Hyperlipidemia, Hypertension, Sleep A pnea/CPAP/BIPAP Additional Past Medical History / Comment(s): hx bilateral hip 2017 replacements, neuropathy, anxiety History of Any Multi-Drug Resistant Organisms: None Reported Past Surgical History: Joint Replacement Additional Past Surgical History / Comment(s): bilateral cataract removed, Both hips replaced, right heal shattered- screws/plates/ pins, cardiac cath 06/18/20 Past Anesthesia/Blood Transfusion Reactions: No Reported Reaction Past Psychological History: Anxiety, Bipolar, Depression, Schizoaffective Disorder Smoking Status: Current every day smoker Past Alcohol Use History: Occasional, Rare Past Drug Use History: None Reported - Past Family History family Additional Family Medical History / Comment(s): anxiety General Exam Limitations: no limitations General appearance: alert, in no apparent distress, anxious Head exam: Present: atraumatic, normocephalic, normal inspection Eye exam: Present: normal appearance Pupils: Present: normal accommodation ENT exam: Present: normal exam, normal oropharynx, mucous membranes moist Neck exam: Present: normal inspection, full ROM. Absent: tenderness Respiratory exam: Present: normal lung sounds bilaterally. Absent: respiratory distress, wheezes, rales, rhonchi, stridor Cardiovascular Exam: Present: regular rate, normal rhythm, normal heart sounds. Absent: systolic murmur Extremities exam: Present: normal inspection, full ROM Back exam: Present: normal inspection, full ROM Neurological exam: Present: alert, oriented X3 Psychiatric exam: Present: normal affect, anxious Skin exam: Present: warm, dry, intact, normal color Course Vital Signs 01/11/21 00:39 Temperature 98.4 F Pulse Rate 90 Respiratory 18 Rate Blood Pressure 114/85 O2 Sat by Pulse 98 Oximetry Medical Decision Making - Medical Decision Making 55-year-old male presenting to the emergency department with chief complaint of anxiety. On physical examination, patient is quite anxious. He did report his feels it is typical anxiety attack. Patient was given Ativan. Reevaluati on, he reports improvement in symptoms and would like to be discharged. He denies any homicidal, suicidal thoughts or ideations at this time. Case discussed with physician. Disposition Clinical Impression: Acute anxiety Disposition: HOME SELF-CARE Condition: Stable Instructions (If sedation given, give patient instructions): Generalized Anxiety Disorder (ED) Additional Instructions: Please return to the Emergency Department if symptoms worsen or any other concerns. Is patient prescribed a controlled substance at d/c from ED?: No Referrals: Marlen Mobley MD [Primary Care Provider] - 1-2 days Time of Disposition: 01:41
== END 2021-01-11 02:06 | disposition home or self-care (01) ==
LOC: EC 00:31
DX: F41.9 Anxiety disorder, unspecified (principal); E11.40 Type 2 diabetes mellitus with diabetic neuropathy, unspecified; I10 Essential (primary) hypertension; E78.5 Hyperlipidemia, unspecified; F31.9 Bipolar disorder, unspecified; F25.9 Schizoaffective disorder, unspecified; F17.200 Nicotine dependence, unspecified, uncomplicated; Z79.84 Long term (current) use of oral hypoglycemic drugs; Z79.899 Other long term (current) drug therapy
CPT/HCPCS: 99283

== ENCOUNTER 2021-02-15 16:10 | Observation (INO) | payer MEDICARE, OTHER ==
[2021-02-15] MEDS ORDERED: SODIUM CHLORIDE 0.9% 1,000 ML IV STA (16:43)
[2021-02-15 17:03] LABS: Basophils # (A) 0.1 k/uL (0-0.2); Basophils % (A) 1 %; Eosinophils # (A) 0.2 k/uL (0-0.7); Eosinophils % (A) 2 %; HCT 38.7 % (39.0-53.0); HGB 12.7 gm/dL (13.0-17.5); Lymphocytes # (A) 3.6 k/uL (1.0-4.8); Lymphocytes % (A) 29 %; MCH 29.4 pg (25.0-35.0); MCHC 32.7 g/dL (31.0-37.0); MCV 89.7 fL (80.0-100.0); Mean Platelet Volume 7.1; Monocytes # (A) 0.6 k/uL (0-1.0); Monocytes % (A) 5 %; Neutrophils # (A) 7.3 k/uL (1.3-7.7); Neutrophils % (A) 60 %; Platelet Count 419 k/uL (150-450); RBC 4.31 m/uL (4.30-5.90); WBC 12.2 k/uL (3.8-10.6)
[2021-02-15] MEDS ORDERED: LORazepam 2 MG/ML INJ IV STA (17:03)
[2021-02-15 17:13] LABS: Albumin 4.4 g/dL (3.5-5.0); Calcium 10.1 mg/dL (8.4-10.2); Magnesium 1.6 mg/dL (1.6-2.3); Potassium 3.9 mmol/L (3.5-5.1); Total Bilirubin 0.3 mg/dL (0.2-1.3); Total Protein 7.5 g/dL (6.3-8.2)
[2021-02-15 17:16] LABS: Partial Thromboplastin Time 23.1 sec (22.0-30.0); Prothrombin Time 10.8 sec (9.0-12.0)
--- NOTE | 2021-02-15 17:17 | ED ---
General Adult HPI - General Chief complaint: Chest Pain Stated complaint: Chest Pain Time Seen by Provider: 02/15/21 16:28 Source: patient, RN notes reviewed, old records reviewed Mode of arrival: ambulatory Limitations: no limitations - History of Present Illness Initial comments: 56-year-old male presenting for evaluation of chest pain. Patient states the pain began around 6 AM this morning. He states it radiates to his back. He has had similar pain in the past and was told this was his anxiety. He has no previous history of CAD. No history of DVT or PE. He denies cough or dyspnea. Denies fever. Denies vomiting. Denies diaphoresis. - Related Data Home Medications Medication Instructions Recorded Confirmed Prazosin HCl 2 mg PO HS 10/16/20 02/15/21 carvediloL [Coreg*] 12.5 mg PO BID 10/16/20 02/15/21 glipiZIDE [Glucotrol] 20 mg PO BID 10/16/20 02/15/21 Gabapentin 600 mg PO TID 02/15/21 02/15/21 Melatonin 5 mg PO HS PRN 02/15/21 02/15/21 Mirtazapine [Remeron] 15 mg PO HS 02/15/21 02/15/21 OLANZapine ODT [ZyPREXA ZYDIS] 5 mg PO DAILY PRN 02/15/21 02/15/21 OLANZapine [ZyPREXA] 15 mg PO HS 02/15/21 02/15/21 busPIRone HCL 15 mg PO BID 02/15/21 02/15/21 hydrOXYzine pamoate [Vistaril] 50 mg PO TID PRN 02/15/21 02/15/21 Previous Rx's Medication Instructions Recorded Pantoprazole [Protonix] 40 mg PO HS 30 Days tablet. 03/24/20 Pravastatin Sodium [Pravachol] 40 mg PO HS 30 Days tab 03/24/20 metFORMIN HCL [Glucophage] 1,000 mg PO BID #60 tab 06/18/20 Fenofibrate [Lofibra] 160 mg PO DAILY 30 Days tab 07/12/20 Allergies Allergy/AdvReac Type Severity Reaction Status Date / Time thimerosal Allergy Severe Rash/Hives/throat Verified 02/15/21 18:26 swelling neomycin Allergy Rash/Hives Verified 02/15/21 18:26 Review of Systems ROS Statement: Those systems with pertinent positive or pertinent negative responses have been documented in the HPI. ROS Other: All systems not noted in ROS Statement are negative. 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, neuropathy, anxiety History of Any Multi-Drug Resistant Organisms: None Reported Past Surgical History: Joint Replacement Additional Past Surgical History / Comment(s): bilateral cataract removed, Both hips replaced, right heal shattered- screws/plates/ pins, cardiac cath 06/18/20 Past Anesthesia/Blood Transfusion Reactions: No Reported Reaction Past Psychological History: Anxiety, Bipolar, Depression, Schizoaffective Diso rder Smoking Status: Current every day smoker Past Alcohol Use History: Occasional Past Drug Use History: None Reported - Past Family History family Additional Family Medical History / Comment(s): anxiety General Exam Limitations: no limitations General appearance: alert, in no apparent distress Head exam: Present: atraumatic, normocephalic Eye exam: Present: normal appearance, PERRL ENT exam: Present: mucous membranes dry Neck exam: Present: normal inspection. Absent: tenderness, meningismus Respiratory exam: Present: normal lung sounds bilaterally. Absent: respiratory distress, wheezes Cardiovascular Exam: Present: regular rate, normal rhythm GI/Abdominal exam: Present: soft. Absent: distended, tenderness, guarding Extremities exam: Present: normal inspection, normal capillary refill. Absent: pedal edema, calf tenderness Neurological exam: Present: alert, oriented X3, CN II-XII intact. Absent: motor sensory deficit Psychiatric exam: Present: anxious Skin exam: Present: warm, dry, intact. Absent: cyanosis, diaphoretic Course Vital Signs 02/15/21 02/15/21 16:15 17:00 Temperature 98.8 F Pulse Rate 102 H 92 Respiratory 19 12 Rate Blood Pressure 88/62 97/59 O2 Sat by Pulse 98 95 Oximetry EKG Findings - EKG Comments: EKG Findings:: EKG: Normal sinus rhythm, rate of 98, IL interval 144, QRS duration 92, QTC [address] segment elevation. Medical Decision Making - Medical Decision Making 56-year-old male presenting for evaluation of substernal chest pain. EKG is sinus rhythm. Chest x-ray is clear. Initial troponin negative. Patient did state the pain radiated to his back and therefore study of the aorta was pe rformed this was negative for dissection or acute findings. Patient had been taken to x-ray and had a near syncopal episode. [place] to require observation for telemetry and serial cardiac enzymes. I did discuss case with Dr. Zuniga. Patient will be admitted. - Lab Data Result diagrams: 02/15/21 16:54 02/15/21 16:54 Lab Results 02/15/21 02/15/21 02/15/21 Range/Units 16:54 16:54 16:54 WBC 12.2 H (3.8-10.6) k/uL RBC 4.31 (4.30-5.90) m/uL Hgb 12.7 L (13.0-17.5) gm/dL Hct 38.7 L (39.0-53.0) % MCV 89.7 (80.0-100.0) fL MCH 29.4 (25.0-35.0) pg MCHC 32.7 (31.0-37.0) g/dL RDW 14.0 (11.5-15.5) % Plt Count 419 (150-450) k/uL MPV 7.1 Neutrophils % 60 % Lymphocytes % 29 % Monocytes % 5 % Eosinophils % 2 % Basophils % 1 % Neutrophils # 7.3 (1.3-7.7) k/uL Lymphocytes # 3.6 (1.0-4.8) k/uL Monocytes # 0.6 (0-1.0) k/uL Eosinophils # 0.2 (0-0.7) k/uL Basophils # 0.1 (0-0.2) k/uL PT 10.8 (9.0-12.0) sec INR 1.0 (<1.2) APTT 23.1 (22.0-30.0) sec D-Dimer 0.55 (<0.60) mg/L FEU Sodium 138 (137-145) mmol/L Potassium 3.9 (3.5-5.1) mmol/L Chloride 104 (98-107) mmol/L Carbon Dioxide 16 L (22-30) mmol/L Anion Gap 18 mmol/L BUN 21 H (9-20) mg/dL Creatinine 1.39 H (0.66-1.25) mg/dL Est GFR (CKD-EPI)AfAm 65 (>60 ml/min/1.73 sqM) Est GFR (CKD-EPI)NonAf 56 (>60 ml/min/1.73 sqM) Glucose 138 H (74-99) mg/dL Calcium 10.1 (8.4-10.2) mg/dL Magnesium 1.6 (1.6-2.3) mg/dL Total Bilirubin 0.3 (0.2-1.3) mg/dL AST 24 (17-59) U/L ALT 17 (4-49) U/L Alkaline Phosphatase 76 (38-126) U/L Troponin I (0.000-0.034) ng/mL Total Protein 7.5 (6.3-8.2) g/dL Albumin 4.4 (3.5-5.0) g/dL 02/15/21 Range/Units 16:54 WBC (3.8-10.6) k/uL RBC (4.30-5.90) m/uL Hgb (13.0-17.5) gm/dL Hct (39.0-53.0) % MCV (80.0-100.0) fL MCH (25.0-35.0) pg MCHC (31.0-37.0) g/dL RDW (11.5-15.5) % Plt Count (150-450) k/uL MPV Neutrophils % % Lymphocytes % % Monocytes % % Eosinophils % % Basophils % % Neutrophils # (1.3-7.7) k/uL Lymphocytes # (1.0-4.8) k/uL Monocytes # (0-1.0) k/uL Eosinophils # (0-0.7) k/uL Basophils # (0-0.2) k/uL PT (9.0-12.0) sec INR (<1.2) APTT (22.0-30.0) sec D-Dimer (<0.60) mg/L FEU Sodium (137-145) mmol/L Potassium (3.5-5.1) mmol/L Chloride (98-107) mmol/L Carbon Dioxide (22-30) mmol/L Anion Gap mmol/L BUN (9-20) mg/dL Creatinine (0.66-1.25) mg/dL Est GFR (CKD-EPI)AfAm (>60 ml/min/1.73 sqM) Est GFR (CKD-EPI)NonAf (>60 ml/min/1.73 sqM) Glucose (74-99) mg/dL Calcium (8.4-10.2) mg/dL Magnesium (1.6-2.3) mg/dL Total Bilirubin (0.2-1.3) mg/dL AST (17-59) U/L ALT (4-49) U/L Alkaline Phosphatase (38-126) U/L Troponin I <0.012 (0.000-0.034) ng/mL Total Protein (6.3-8.2) g/dL Albumin (3.5-5.0) g/dL Disposition Clinical Impression: Chest pain Disposition: ADMITTED IP TO THIS [facility] Condition: Stable Is patient prescribed a controlled substance at d/c from ED?: No Referrals: Marlen Mobley MD [Primary Care Provider] - 1-2 days Decision to Admit Reason: Admit from EC Decision Date: 02/15/21 Decision Time: 19:01
--- NOTE | 2021-02-15 17:44 | XR ---
EXAMINATION TYPE: XR chest 2V DATE OF EXAM: 02/15/2021 COMPARISON: 07/02/2020 HISTORY: Chest pain TECHNIQUE: Frontal and lateral views of the chest are obtained. FINDINGS: There is no focal air space opacity, pleural effusion, or pneumothorax seen. The cardiac silhouette size is within normal limits. The osseous structures are intact. IMPRESSION: No acute cardiopulmonary process.
--- NOTE | 2021-02-15 18:38 | CT ---
EXAMINATION TYPE: CT angio thor/abd pel aorta DATE OF EXAM: 02/15/2021 COMPARISON: None available HISTORY: chest pain, syncope CT DLP: 928.8 mGycm. Automated Exposure Control for Dose Reduction was Utilized. CONTRAST: CTA scan of the thorax, abdomen and pelvis is performed without and with IV Contrast, patient injecte d with 80 mL of Isovue 370. Coronal, sagittal and MIPS/3-D reformats provided and reviewed. FINDINGS: CTA: The thoracic aorta and great vessels are grossly intact. There is minimal atherosclerotic plaque. No evidence of dissection, aneurysm or rupture. The abdominal aorta is grossly intact with minimal atherosclerotic plaque seen. No aneurysm, rupture or dissection. The celiac artery, SMA and PRAVIN, renal and iliac arteries are also grossly intact. No s ignificant stenosis, dissection or aneurysm. The central pulmonary arteries are adequately aerated without evidence of embolus. LUNGS: There is mild dependent atelectasis. Otherwise lungs are grossly clear, there is no concerning parenchymal mass or nodule identified. There is no pleural effusion or pneumothorax seen. The tra cheobronchial tree is patent. MEDIASTINUM: There are no greater than 1 cm hilar or mediastinal lymph nodes. No pericardial effusi on is seen. OTHER: No additional significant abnormality is seen. LIVER/GB: No significant abnormality is appreciated. PANCREAS: No significant abnormality is seen. SPLEEN: No significant abnormality is seen. ADRENALS: No significant abnormality is seen. KIDNEYS: No significant abnormality is seen. BOWEL: No significant abnormality is seen. GENITAL ORGANS: No gross abnormality seen. LYMPH NODES: No greater than 1cm abdominal or pelvic lymph nodes are appreciated. OSSEOUS STRUCTURES: No acute abnormality is seen. Severe L3-L5 spondylolysis with minimal grade 1 ant erolisthesis of L3 on L4. Bilateral hip arthroplasty seen. OTHER: No significant additional abnormality is seen. IMPRESSION: No acute abnormality of the CTA head chest, abdomen or pelvis. Lumbar spondylosis with minimal grade 1 spondylolisthesis.
[2021-02-15] MEDS ORDERED: ASPIRIN 325 MG TAB PO STA (18:52)
[2021-02-15] MEDS ORDERED: NALOXONE 0.4 MG/ML 1 ML VIAL IV PRN (18:56)
[2021-02-15] MEDS ORDERED: ACETAMINOPHEN TAB 325 MG TAB PO PRN (18:56)
[2021-02-15] MEDS: LORazepam 2 MG/ML INJ IV PRN (19:20)
[2021-02-15] MEDS: SODIUM CHLORIDE 0.9% 1,000 ML IV SCH (19:20)
[2021-02-15] MEDS ORDERED: SODIUM CHLORIDE 0.9% 1,000 ML IV ONE (21:36)
[2021-02-15] MEDS ORDERED: OLANZapine 7.5 MG TAB PO SCH (21:45)
[2021-02-15] MEDS ORDERED: PRAZOSIN 1 MG CAP PO SCH (21:45)
[2021-02-15] MEDS ORDERED: PRAVASTATIN SODIUM 40 MG TAB PO SCH (21:45)
[2021-02-15] MEDS ORDERED: MIRTAZAPINE 15 MG TAB PO SCH (21:45)
[2021-02-15] MEDS: busPIRone HCl 5 MG TAB PO SCH (22:56)
[2021-02-15] MEDS: GABAPENTIN 300 MG CAP PO SCH (22:56)
[2021-02-15] MEDS: carvediloL 12.5 MG TAB PO SCH (23:40)
--- NOTE | 2021-02-16 02:45 | P.HPIM ---
History of Present Illness H&P Date: 02/15/21 Chief Complaint: chest pain 56 year old male with multiple comorbidities, hypertension, diabetes mellitus Patient comes in due to sudden onset of chest pain started this morning described as retrosternal and radiates straight to the back 8 out of 10 in severity not associated with any other symptoms of nausea vomiting diaphoresis or palpitations he denies any shortness of breath or coughing denies any fevers or chills patient admits to having frequent episodes of chest pains in the past he is been told that he has anxiety. He was recently discharged back in September 2020, when he was admitted to the hospitalist police found him in [employer] parking lot huffing on some aerosolized Cans which she admits of doing in the past very frequently however he has quit for the past 6 months He is currently feeling okay denies any abdominal pain nausea vomiting diarrhea or changes in his urinary habits. She denies any chest pain trouble breathing at this time Patient workup in the ED EKG showed normal sinus rhythm, chest x-ray was negative Troponins were negative Patient had CT angios of the head chest abdomen and pelvis no acute pathology However ED noted that while patient was in the x-ray department he had a near syncope for which decided to keep him overnight for monitoring Blood work showed anion gap metabolic acidosis, lactic acid was checked and was elevated Review of Systems Pertinent positives as noted in HPI. All other systems were reviewed and are negative 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 , neuropathy, anxiety History of Any Multi-Drug Resistant Organisms: None Reported Past Surgical History: Joint Replacement Additional Past Surgical History / Comment(s): bilateral cataract removed, Both hips replaced, right heal shattered- screws/plates/ pins, cardiac cath 06/18/20 Past Anesthesia/Blood Transfusion Reactions: No Reported Reaction Past Psychological History: Anxiety, Bipolar, Depression, Schizoaffective Disorder Smoking Status: Current every day smoker Past Alcohol Use History: Occasional Past Drug Use History: None Reported - Past Family History family Additional Family Medical History / Comment(s): anxiety Medications and Allergies Home Medications Medication Instructions Recorded Confirmed Type Pantoprazole [Protonix] 40 mg PO HS 30 Days tablet. 03/24/20 02/15/21 Rx Pravastatin Sodium [Pravachol] 40 mg PO HS 30 Days tab 03/24/20 02/15/21 Rx metFORMIN HCL [Glucophage] 1,000 mg PO BID #60 tab 06/18/20 02/15/21 Rx Fenofibrate [Lofibra] 160 mg PO DAILY 30 Days tab 07/12/20 02/15/21 Rx Prazosin HCl 2 mg PO HS 10/16/20 02/15/21 History carvediloL [Coreg*] 12.5 mg PO BID 10/16/20 02/15/21 History glipiZIDE [Glucotrol] 20 mg PO BID 10/16/20 02/15/21 History Gabapentin 600 mg PO TID 02/15/21 02/15/21 History Melatonin 5 mg PO HS PRN 02/15/21 02/15/21 History Mirtazapine [Remeron] 15 mg PO HS 02/15/21 02/15/21 History OLANZapine ODT [ZyPREXA ZYDIS] 5 mg PO DAILY PRN 02/15/21 02/15/21 History OLANZapine [ZyPREXA] 15 mg PO HS 02/15/21 02/15/21 History busPIRone HCL 15 mg PO BID 02/15/21 02/15/21 History hydrOXYzine pamoate [Vistaril] 50 mg PO TID PRN 02/15/21 02/15/21 History Allergies Allergy/AdvReac Type Severity Reaction Status Date / Time thimerosal Allergy Severe Rash/Hives/throat Verified 02/15/21 18:26 swelling neomycin Allergy Rash/Hives Verified 02/15/21 18:26 Physical Exam Vitals: Vital Signs Temp Pulse Resp BP Pulse Ox 02/15/21 19:37 103 H 18 94/59 93 L 02/15/21 19:00 108 H 18 99/89 96 02/15/21 17:00 92 12 97/59 95 02/15/21 16:15 98.8 F 102 H 19 88/62 98 Intake and Output 02/15/21 02/15/21 02/15/21 06:59 14:59 22:59 Other: Weight 79.379 kg Constitutional: No acute distress, conversant, pleasant Eyes: Anicteric sclerae, moist conjunctiva, Pupils equal round reactive to light ENMT: NC/AT Oropharynx clear, no erythema, or exudates Neck: Supple, FROM, no masses, or JVD No carotid bruits No thyromegaly Lungs: Clear to auscultation Clear to percussion Normal respiratory effort, no accessory muscle use Cardiovascular: Heart regular in rate and rhythm, No murmurs, gallops, or rubs No peripheral edema Abdominal: Soft Nontender, no guarding, rebound or rigidity Abdomen moving with respiration Normoactive bowel sounds No hepatomegaly, No splenomegaly No palpable mass No abdominal wall hernia noted Skin: Normal temperature, tone, texture, turgor No induration No subcutaneous nodules No rash, lesions No ulcers Extremities: No digital cyanosis No clubbing Pedal pulses intact and symmetrical Radial pulses intact and symmetrical No calf tenderness Psychiatric: Alert and oriented to person, place and time Appropriate affect fair judgement Neuro Muscles Strength 5/5 in all 4 extremities Sensation to light touch grossly present throughout Cranial nerves II-XII grossly intact No focal sensory deficits Lymphatics: no palpable cervical or supraclavicular , or inguinal lymph nodes Results CBC & Chem 7: 02/15/21 16:54 02/15/21 16:54 Labs: Abnormal Lab Results - Last 24 Hours (Table) 02/15/21 02/15/21 02/15/21 Range/Units 16:54 16:54 20:45 WBC 12.2 H (3.8-10.6) k/uL Hgb 12.7 L (13.0-17.5) gm/dL Hct 38.7 L (39.0-53.0) % Carbon Dioxide 16 L (22-30) mmol/L BUN 21 H (9-20) mg/dL Creatinine 1.39 H (0.66-1.25) mg/dL Glucose 138 H (74-99) mg/dL Plasma Lactic Acid Ender 3.5 H* (0.7-2.0) mmol/L Assessment and Plan Assessment: Typical chest pain rule out ACS Trend troponins negative so far EKG normal sinus rhythm CT injury of the head chest abdomen and pelvis was negative for any aortic dissection Cardiology evaluation Trend troponins Cardiac monitoring Monitor vital signs Annual gap metabolic acidosis with lactic acidosis Slightly elevated renal function IV fluid hydration Repeat lactic acid resolved Imaging of the abdomen reviewed no vascular occlusions reported Chronic conditions Hypertension, resume home medications Hyperlipidemia resume statin Diabetes mellitus with A1c 9.6 resume insulin sliding scale for now Anxiety, Xanax when necessary Patient is full code Anticipated length of stay less than 2 midnights Heparin subcu 3 times a day for DVT prophylaxis
[2021-02-16 06:57] VITALS: RESP 18
[2021-02-16] MEDS: GABAPENTIN 300 MG CAP PO SCH ×2 (07:45→15:02)
[2021-02-16] MEDS: busPIRone HCl 5 MG TAB PO SCH (07:45)
[2021-02-16] MEDS: carvediloL 12.5 MG TAB PO SCH (07:45)
[2021-02-16] MEDS: SODIUM CHLORIDE 0.9% 1,000 ML IV SCH ×2 (07:46→15:03)
[2021-02-16] MEDS: HEPARIN SODIUM,PORCINE/PF 5,000 UNIT/0.5 ML SYRINGE SQ SCH ×2 (07:46→15:02)
[2021-02-16] MEDS: INSULIN ASPART (NovoLOG) 100 UNIT/ML VIAL SQ SCH ×2 (07:47→12:12)
[2021-02-16] MEDS ORDERED: ASPIRIN 325 MG TAB PO SCH (09:00)
[2021-02-16] MEDS ORDERED: PANTOPRAZOLE 40 MG/10 ML VIAL IV SCH (09:00)
[2021-02-16] MEDS: LORazepam 2 MG/ML INJ IV PRN ×2 (09:15→14:48)
[2021-02-16 09:36] LABS: Basophils # (A) 0.08 X 10*3/uL (0.00-0.10); Basophils % (A) 0.9 %; Eosinophils # (A) 0.27 X 10*3/uL (0.04-0.35); Eosinophils % (A) 3.2 %; HCT 34.9 % (39.6-50.0); HGB 11.5 g/dL (13.0-17.0); Lymphocytes # (A) 2.95 X 10*3/uL (0.90-5.00); Lymphocytes % (A) 34.6 %; MCH 29.4 pg (27.0-32.0); MCV 89.3 fL (80.0-97.0); Mean Platelet Volume 9.7 fL (9.5-12.2); Monocytes # (A) 0.82 X 10*3/uL (0.20-1.00); Monocytes % (A) 9.6 %; Neutrophils # (A) 4.38 X 10*3/uL (1.80-7.70); Neutrophils % (A) 51.3 %; Platelet Count 387 X 10*3/uL (140-440); RBC 3.91 X 10*6/uL (4.40-5.60); RDW 14.3 % (11.5-14.5); WBC 8.53 X 10*3/uL (4.50-10.00)
[2021-02-16 10:36] LABS: African American GFR (CKD) 70.2 (60.0-200.0); Albumin 4.3 g/dL (3.80-4.90); Albumin/Globulin Ratio 1.95 (1.60-3.17); Anion Gap 8.4 mmol/L (4.00-12.00); BUN/Creat Ratio 17.69 Ratio (12.00-20.00); Calcium 8.8 mg/dL (8.7-10.3); Carbon Dioxide 21.6 mmol/L (21.6-31.8); Globulin 2.2 g/dL (1.6-3.3); Non-African American GFR(CKD) 60.6 (60.0-200.0); Potassium 4.4 mmol/L (3.5-5.5); Total Bilirubin 0.2 mg/dL (0.3-1.2); Total Protein 6.5 g/dL (6.2-8.2)
[2021-02-16 11:53] LABS: Glucose,Whole Blood 160 mg/dL (75-99)
[2021-02-16 13:21] VITALS: BP 98/64; PULSE 86; TEMP 98.6
--- NOTE | 2021-02-16 14:58 | P.DS ---
Providers Date of admission: 02/15/21 18:56 Expected date of discharge: 02/16/21 Attending physician: Mina Zuniga Consults: 02/15/21 18:57 Consult Physician Routine Consulting Provider: Fiordaliza Morton Consult Reason/Comments: CP rule out Do you want consulting provider notified?: Yes Primary care physician: [facility] Hospital Course: This is a 56-year-old male with past medical history significant for hypertension, type 2 diabetes, and history of abusing aerosolized cans presented to the emergency room with chest pain. Patient was evaluated in the ER in 12- lead EKG showed no acute ischemic changes. Initial troponin was negative. Patient was placed on observation. Serial troponin remained negative. Patient was chest pain-free at the time of my evaluation this morning. He was seen and evaluated by cardiology. Patient was cleared for discharge home. No further testing recommended at this time. ACS ruled out. Patient will follow-up with cardiology in the office as directed. Physical exam: General: The patient is awake and alert, in no distress Eye: there is normal conjunctiva bilaterally. Neck: The neck is supple, there is no JVD. Cardiovascular: Normal S1-S2, no S3-S4, no murmurs. Respiratory: Lungs clear to auscultation bilaterally Gastrointestinal: Abdomen is soft, nontender Musculoskeletal: There is no pedal edema. Neurological:. Speech is normal. Skin: Skin is warm and dry Patient Condition at Discharge: Fair Plan - Discharge Summary Discharge Rx Participant: Yes New Discharge Prescriptions: Continue Pantoprazole [Protonix] 40 mg PO HS 30 Days tablet Pravastatin Sodium [Pravachol] 40 mg PO HS 30 Days tab metFORMIN HCL [Glucophage] 1,000 mg PO BID #60 tab Fenofibrate [Lofibra] 160 mg PO DAILY 30 Days tab glipiZIDE [Glucotrol] 20 mg PO BID Mirtazapine [Remeron] 15 mg PO HS OLANZapine [ZyPREXA] 15 mg PO HS Prazosin HCl 2 mg PO HS carvediloL [Coreg*] 12.5 mg PO BID OLANZapine ODT [ZyPREXA Zydis] 5 mg PO DAILY PRN PRN Reason: Anxiety busPIRone HCL 15 mg PO BID Melatonin 5 mg PO HS PRN PRN Reason: Insomnia Gabapentin 600 mg PO TID hydrOXYzine pamoate [Vistaril] 50 mg PO TID PRN PRN Reason: Anxiety Discharge Medication List Pantoprazole [Protonix] 40 mg PO HS 30 Days tablet. 03/24/20 [Rx] Pravastatin Sodium [Pravachol] 40 mg PO HS 30 Days tab 03/24/20 [Rx] metFORMIN HCL [Glucophage] 1,000 mg PO BID #60 tab 06/18/20 [Rx] Fenofibrate [Lofibra] 160 mg PO DAILY 30 Days tab 07/12/20 [Rx] Prazosin HCl 2 mg PO HS 10/16/20 [History] carvediloL [Coreg*] 12.5 mg PO BID 10/16/20 [History] glipiZIDE [Glucotrol] 20 mg PO BID 10/16/20 [History] Gabapentin 600 mg PO TID 02/15/21 [History] Melatonin 5 mg PO HS PRN 02/15/21 [History] Mirtazapine [Remeron] 15 mg PO HS 02/15/21 [History] OLANZapine ODT [ZyPREXA Zydis] 5 mg PO DAILY PRN 02/15/21 [History] OLANZapine [ZyPREXA] 15 mg PO HS 02/15/21 [History] busPIRone HCL 15 mg PO BID 02/15/21 [History] hydrOXYzine pamoate [Vistaril] 50 mg PO TID PRN 02/15/21 [History] Follow up Appointment(s)/Referral(s): Fiordaliza Morton MD [STAFF PHYSICIAN] - 2 Weeks Marlen Mobley MD [Primary Care Provider] - 1-2 days
--- NOTE | 2021-02-16 15:16 | CONS ---
CONSULTATION Mr. Elliott is a 56-year-old male who presented with symptoms of chest discomfort. His discomfort occurred at rest, not associated with any other symptoms. The patient has a history of chronic tobacco use, hypertension, hyperlipidemia and diabetes. In May of this year he underwent coronary angiography because of abnormal myocardial perfusion imaging that revealed no evidence of stress-induced ischemia. The patient has a prior history of alcohol intake and has a history of chronic tobacco use. The discomfort yesterday occurred at rest. It was not associated with any other symptoms. It lasted for a few hours. He is feeling better at this time. He denies any dizziness or palpitations. He denies any syncope. He has no PND, orthopnea or peripheral edema. MEDICATIONS: His medications at home included Zyprexa, prazosin, Remeron, Glucophage, pravastatin 40 mg daily, Protonix, Glucotrol 20 mg daily, carvedilol 12.5 mg twice a day, fenofibrate 160 mg daily, in addition to gabapentin. REVIEW OF SYSTEMS: RESPIRATORY SYSTEM: No recent wheezing or cough. No fever. He has chronic tobacco use. GI SYSTEM: No recent GI bleeding. No peptic ulcer disease. SYSTEM: No dysuria or hematuria. NERVOUS SYSTEM: No history of stroke or seizure. PHYSICAL EXAMINATION: He is a 56-year-old male, alert, oriented, in no apparent distress. Blood pressure is running in the 100s to 140 with a heart rate in the 80s. He was mildly tachycardic with sinus tachycardia. He had a temperature of 100 earlier. He is afebrile at this time. HEAD: Normocephalic. EYES: Sclerae anicteric. NECK: Good carotid upstroke. No bruit. No jugular venous distention. LUNGS: Clear to auscultation. HEART: Regular rate and rhythm. S1, S2. No S3. No S4. No murmur or rub. ABDOMEN: Soft, nontender. Positive bowel sounds. No organomegaly. EXTREMITIES: No edema. Intact distal pulses. LAB DATA: Lab data revealed troponin less than 0.012. Lactic acid on presentation 3.5, down to 1.2. BUN creatinine of 21 and 1.39. Hemoglobin of 12.7, white blood cell count 12.2. EKG revealed a sinus mechanism, normal axis and intervals. No acute ST-segment changes. Chest x-ray shows no acute infiltrate. Thoracic aortic CT shows no evidence of dissection or aneurysm. IMPRESSION: 1. Chest discomfort, atypical for ischemic heart disease, noncardiac. 2. Abnormal renal functions. The patient had abnormal renal functions in the past with some improvement. 3. History of chronic tobacco use. 4. Hypertension. 5. Hyperlipidemia. 6. Diabetes mellitus. 7. Probable dehydration. RECOMMENDATIONS: From the cardiac standpoint, I see no evidence of acute coronary syndrome. The patient does not require any further cardiac workup at this time. Will see him on an as-needed basis. Please feel free to call us for any questions. MMODL / IJN: [id number] /
[2021-02-16] MEDS ORDERED: carvediloL 12.5 MG TAB PO SCH (17:30)
[2021-02-17] MEDS ORDERED: PANTOPRAZOLE 40 MG TABLET PO SCH (07:30)
== END 2021-02-16 15:42 | disposition home or self-care (01) ==
LOC: EC 16:10 → 6NMEDSUR 18:56
PROVIDERS: ADMIT Internal Medicine; ATTEND Internal Medicine
DX: R07.89 Other chest pain (principal); E87.2 Acidosis; E78.5 Hyperlipidemia, unspecified; E11.9 Type 2 diabetes mellitus without complications; I10 Essential (primary) hypertension; Z20.822 Contact with and (suspected) exposure to COVID-19; F17.200 Nicotine dependence, unspecified, uncomplicated; F25.9 Schizoaffective disorder, unspecified; F31.9 Bipolar disorder, unspecified; F41.9 Anxiety disorder, unspecified; Z79.84 Long term (current) use of oral hypoglycemic drugs; Z79.899 Other long term (current) drug therapy; Z96.643 Presence of artificial hip joint, bilateral
CPT/HCPCS: 96376 ×2; 96361 ×3; 96372; 96375; 96374; 99285; 36415; 94760; 93005; 85379; 80053 ×2; 83605 ×2; 83735; 84484 ×2; 85025 ×2; 85610; 85730; 87635; 71046; 71275; 74174; G0378 ×2; J2060 ×2; C9113; Q9967; J1644

== ENCOUNTER → 2021-04-12 | Outpatient (CLI) | payer MEDICARE, OTHER ==
--- NOTE | 2021-04-12 21:03 | CONS ---
CONSULTATION REASON FOR CONSULTATION: Sleep apnea. HISTORY OF PRESENT ILLNESS: 56-year-old male patient recovering alcoholic, who is coming in for re-evaluation and treatment of obstructive sleep apnea. He was diagnosed having MARRY more than 20 years ago and he has quit the treatment as his machine broke and he has been off the treatment for almost 7 years. His initial evaluation was done through a sleep center in [place], [place]. The patient moved to [facility] around 3 years ago. He is post Covid from July of 2019 and he has recovered nicely. He is having typical features of obstructive sleep apnea with loud snoring, excessive hypersomnia and sleepiness and he quits breathing at night and wakes up waking up non-refreshed and tired and sleepy during the day. He goes to bed around 9 p.m., wakes up at 6 a.m. in the morning. He does have occasional nighttime arousals because of urination. He does grind his teeth and has chronic anxiety and chronic social anxiety. He has multiple other medical problems and comorbidities most significant of which is alcoholism from which he has recovered. His current Hollis score is at 12. No significant weight gain over the past 10 years. He is very much interested in pursuing treatment of his underlying sleep apnea. PAST MEDICAL HISTORY: MARRY, hypertension, hyperlipidemia, chronic anemia, Covid 19 infection back in July of 2019, alcoholism, chronic kidney disease, diabetes mellitus, neuropathy, diabetic neuropathy, chronic back pain. Social anxiety and depression. SURGICAL HISTORY: Includes bilateral hip replacement, right index finger surgery and right heel surgery. SOCIAL HISTORY: The patient is a nonsmoker. There is positive history of alcoholism. No substance abuse or drugs. OUTPATIENT MEDICATION LIST: Includes aspirin 81 mg p.o. daily, calcium and magnesium and zinc supplements, clonidine 0.1 mg twice a day, 1% cream, Coreg 12.5 mg twice a day, fenofibrate 160 mg p.o. daily, ferrous sulfate 325 mg p.o. daily, Flonase nasal spray, gabapentin 600 mg p.o. t.i.d., glipizide 10 mg 2 tablets b.i.d., hydrocortisone 0.2% cream, melatonin 5 mg on a p.r.n. basis, multivitamins, metformin 1 gram twice a day, pravastatin 40 mg p.o. daily, Protonix 40 mg p.o. daily, Senokot on a p.r.n. basis and vitamin B12 and super B complex, Buspirone 50 mg p.o. daily, Klonopin 1 mg every morning and 2 tablets at bedtime, 150 mg 1 tablet p.o. daily. Olanzapine 50 mg p.o. 1 tablet a day, prazosin 2 mg p.o. daily and Vistaril 50 mg 1 tablet 3 times a day as needed. FAMILY HISTORY: Negative for obstructive sleep apnea. REVIEW OF SYSTEMS: Fourteen-point review of system was done positive findings are mentioned in history of present illness. He drinks 2 cups of coffee in the morning. His weight is stable at around 180. He sleeps on his side. He does grind his teeth. He wakes up around 3-4 times in the middle of the night. No sleep paralysis, hallucinations or cataplexy. He has had dreams. No nightmares and he is on Prazosin for now. PHYSICAL EXAMINATION: VITAL SIGNS: BP is 111/85, pulse is 105, respirations 16, temperature 96.8, saturation 98% on room air. Height is 5 feet 7 inches, weight is 180. Hollis Score is at 12. Neck size 15.5 inches BMI 28. GENERAL APPEARANCE: Calm, comfortable. Head is atraumatic, normocephalic. NECK: Supple. Mallampati class 1. There is no goiter or neck masses. No overbite. LUNGS: Clear to auscultation. HEART: Heart sounds are regular rate and rhythm. Normal S1, S2. No S3, S4. No murmurs. ABDOMEN: Soft, nontender. No organomegaly. EXTREMITIES: No edema. No cyanosis or clubbing. NEUROLOGIC: Awake and alert. There is no focal neurological deficits. PSYCHIATRIC: Positive for social anxiety. IMPRESSION: 1. Obstructive sleep apnea diagnosed more than 20 years ago, currently off treatment and has been off treatment for the past 7 years. His machine is broken. His previous sleep evaluation was done through a sleep center in [place], [place]. The patient is currently symptomatic and his Hollis score is at 12 and he is interested in pursuing further treatment. No recent weight gain. 2. History of alcoholism, recovered. The patient has been clean for the past 2-3 months. 3. Hypertension. 4. Hyperlipidemia. 5. Chronic anemia, currently on iron supplements. 6. Diabetes mellitus with diabetic peripheral neuropathy and the patient on Neurontin for neuropathic discomfort. 7. Chronic kidney disease. 8. Chronic back pain. 9. Social anxiety/depression. PLAN: 1. Continue current medication regimen. 2. Proceed with a screening polysomnogram to assess for presence of sleep apnea and severity and treat accordingly. At same time, this will be a good opportunity to look for any periodic limb movement that goes along with his history of diabetic peripheral neuropathy. He is having dreams without nightmares. Continue Prazosin for now. Sleep hygiene measures are generally good and the patient is averaging around 7-8 hours of sleep per night. He has hypersomnia and sleepiness. Current Hollis score is 12. Will benefit from CPAP therapy if the diagnosis is established and reconfirmed. We will continue to follow. MINI / ANAMN: [id number] /
== END ==
LOC: SLEEP 15:02
PROVIDERS: ATTEND Internal Medicine Critical Care Medicine
DX: G47.33 Obstructive sleep apnea (adult) (pediatric) (principal); I10 Essential (primary) hypertension; E78.5 Hyperlipidemia, unspecified; D64.9 Anemia, unspecified; E11.42 Type 2 diabetes mellitus with diabetic polyneuropathy; I12.9 Hypertensive chronic kidney disease with stage 1 through stage 4 chronic kidney disease, or unspecified chronic kidney disease; E11.22 Type 2 diabetes mellitus with diabetic chronic kidney disease; N18.9 Chronic kidney disease, unspecified; G89.29 Other chronic pain; M54.9 Dorsalgia, unspecified; F41.9 Anxiety disorder, unspecified; F32.A Depression, unspecified; F17.200 Nicotine dependence, unspecified, uncomplicated; Z88.3 Allergy status to other anti-infective agents; Z88.8 Allergy status to other drugs, medicaments and biological substances
CPT/HCPCS: 99211

== ENCOUNTER → 2021-05-10 | Outpatient (CLI) | payer MEDICARE, OTHER ==
[2021-05-10 11:04] LABS: Basophils # (A) 0.08 X 10*3/uL (0.00-0.10); Basophils % (A) 0.9 %; Eosinophils # (A) 0.33 X 10*3/uL (0.04-0.35); Eosinophils % (A) 3.8 %; HCT 38.4 % (39.6-50.0); HGB 12.4 g/dL (13.0-17.0); Lymphocytes # (A) 2.16 X 10*3/uL (0.90-5.00); Lymphocytes % (A) 25.1 %; MCH 28.5 pg (27.0-32.0); MCHC 32.3 g/dL (32.0-37.0); MCV 88.3 fL (80.0-97.0); Mean Platelet Volume 9.5 fL (9.5-12.2); Monocytes # (A) 0.57 X 10*3/uL (0.20-1.00); Monocytes % (A) 6.6 %; Neutrophils # (A) 5.43 X 10*3/uL (1.80-7.70); Neutrophils % (A) 63.4 %; Platelet Count 347 X 10*3/uL (140-440); RBC 4.35 X 10*6/uL (4.40-5.60); RDW 14.3 % (11.5-14.5); WBC 8.59 X 10*3/uL (4.50-10.00)
[2021-05-10 11:43] LABS: % Iron Saturation 34.28 (15.00-50.00); ALT 29 U/L (10-49); AST 30 U/L (14-35); Albumin 4.6 g/dL (3.8-4.9); Alkaline Phosphatase 77 U/L (41-126); Amylase 47 U/L (23-121); BUN/Creat Ratio 11.37 Ratio (12.00-20.00); Blood Urea Nitrogen 16.6 mg/dL (9.0-27.0); Calcium 9.9 mg/dL (8.7-10.3); Carbon Dioxide 21.7 mmol/L (20.0-27.5); Chloride 102 mmol/L (96-109); Chol/HDL Ratio 4.69 Ratio; Ferritin 60.5 ng/mL (22.0-322.0); Globulin 2.7 g/dL (1.6-3.3); Glucose 174 mg/dL (70-110); Iron 155 ug/dL (65-175); LDL Cholesterol,Calculated 111.7 mg/dL (0.0-131.0); Lipase 27 U/L (14-60); Non-African American GFR(CKD) 52.6 (60.0-200.0); Potassium 4.8 mmol/L (3.5-5.5); Sodium 139 mmol/L (135-145); Total Iron Binding Capacity 452 ug/dL (228-460); Total Protein 7.3 g/dL (6.2-8.2)
[2021-05-10 11:45] LABS: Folate, Serum >20.00 ng/mL (4.40-31.00)
== END ==
LOC: LABWHC1 07:06
PROVIDERS: ATTEND Nurse Practitioner Family
DX: Z00.00 Encounter for general adult medical examination without abnormal findings (principal); I10 Essential (primary) hypertension; E11.9 Type 2 diabetes mellitus without complications; E78.5 Hyperlipidemia, unspecified; E66.3 Overweight; D50.9 Iron deficiency anemia, unspecified; G62.9 Polyneuropathy, unspecified; R74.8 Abnormal levels of other serum enzymes
CPT/HCPCS: 36415; 80053; 80061; 82150; 82306; 82607; 82728; 82746; 83036; 83540; 83550; 83690; 85025

== ENCOUNTER 2021-08-03 06:10 | Emergency (ER) | payer MEDICARE, OTHER ==
[2021-08-03] MEDS ORDERED: DIAZEPAM 5 MG/ML 2 ML INJ IM STA (06:34)
--- NOTE | 2021-08-03 07:38 | CT ---
EXAMINATION TYPE: CT lumbar spine wo con DATE OF EXAM: 08/03/2021 COMPARISON: None HISTORY: Pain and Rt leg numbness CT DLP: 1130.[address] of the lumbar spine was performed. Bone and soft tissue window settings are submitted as well as coronal and sagittal reconstructions. L1-L2: Normal disc space height. No disc herniation protrusion or central stenosis. No facet joint arthropathy. No evidence for foraminal encroachment. L2-L3: Normal disc space height. No disc herniation protrusion or central stenosis. No facet joint arthropathy. No evidence for foraminal encroachment. L3-L4: Severe degenerative disc disease with vacuum disc and extensive endplate sclerosis. Grade 1 an terolisthesis L3 on L4 measuring 4.6 mm. Posterior hypertrophic changes as well as of severe facet inez int arthropathy resulting in mild central stenosis. Bilateral neural foraminal encroachment identifie d. L4-L5: Severe degenerative disc disease with vacuum disc and extensive endplate sclerosis. Right 1 r etrolisthesis of L4 and L5 measuring 6 mm. There is hypertrophy of the ligamentum flavum and facet inez int arthropathy resulting in mild central stenosis. Bilateral neural foraminal encroachment noted. L5-S1: Mild degenerative disc space narrowing. Broad-based posterior disc bulge resulting in bilatera l lateral recess stenosis. No evidence for central stenosis or foraminal encroachment at this time. No paraspinal masses are identified. Lumbar segments are free if fracture. IMPRESSION: 1. Severe degenerative disc disease at L3-4 and L4-5 with associated mild central stenosis and bilate ral foraminal encroachment at each level. Grade 1 anterolisthesis L3 on L4 and grade 1 retrolisthesis of L4 and L5. See above
--- NOTE | 2021-08-03 08:00 | ED ---
Extremity Problem HPI - General Chief complaint: Extremity Problem,Nontraumatic Stated complaint: Leg Numbness Time Seen by Provider: 08/03/21 06:12 Source: patient, EMS, RN notes reviewed Mode of arrival: EMS Limitations: no limitations - History of Present Illness Initial comments: This a 56-year-old male presents emergency Department chief complaint of left leg numbness. Patient states that he has chronic peripheral neuropathy in which she takes gabapentin for. Patient does see Dr. Tyler. Patient states that he also had an MRI months ago which showed lumbar disc herniation. Patient states that he started having some pain radiating down his left leg and he was concerned. He denies any bowel incontinence, bladder retention, saddle anesthe daren. Patient states that "is going felt like his knee gave out on him but states he is able to ambulate now without any difficulty and he has forward motion of his lower extremities. Denies any abdominal pain denies any new trauma denies chest pain or shortness of breath. - Related Data Home Medications Medication Instructions Recorded Confirmed Prazosin HCl 2 mg PO HS 10/16/20 02/15/21 carvediloL [Coreg*] 12.5 mg PO BID 10/16/20 02/15/21 glipiZIDE [Glucotrol] 20 mg PO BID 10/16/20 02/15/21 Gabapentin 600 mg PO TID 02/15/21 02/15/21 Melatonin 5 mg PO HS PRN 02/15/21 02/15/21 Mirtazapine [Remeron] 15 mg PO HS 02/15/21 02/15/21 OLANZapine ODT [ZyPREXA Zydis] 5 mg PO DAILY PRN 02/15/21 02/15/21 OLANZapine [ZyPREXA] 15 mg PO HS 02/15/21 02/15/21 busPIRone HCL 15 mg PO BID 02/15/21 02/15/21 hydrOXYzine pamoate [Vistaril] 50 mg PO TID PRN 02/15/21 02/15/21 Previous Rx's Medication Instructions Recorded Pantoprazole [Protonix] 40 mg PO HS 30 Days tablet. 03/24/20 Pravastatin Sodium [Pravachol] 40 mg PO HS 30 Days tab 03/24/20 metFORMIN HCL [Glucophage] 1,000 mg PO BID #60 tab 06/18/20 Fenofibrate [Lofibra] 160 mg PO DAILY 30 Days tab 07/12/20 Ondansetron Odt [Zofran Odt] 4 mg PO Q8HR PRN #10 tab 07/17/21 Cyclobenzaprine [Flexeril] 10 mg PO TID PRN #15 tab 08/03/21 Allergies Allergy/AdvReac Type Severity Reaction Status Date / Time thimerosal Allergy Severe Rash/Hives/throat Verified 08/03/21 06:19 swelling neomycin Allergy Rash/Hives Verified 08/03/21 06:19 Review of Systems ROS Statement: Those systems with pertinent positive or pertinent negative responses have been documented in the HPI. ROS Other: All systems not noted in ROS Statement are negative. 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, neuropathy, anxiety History of Any Multi-Drug Resistant Organisms: None Reported Past Surgical History: Joint Replacement Additional Past Surgical History / Comment(s): bilateral cataract removed, Both hips replaced, right heal shattered- screws/plates/ pins, cardiac cath 06/18/20 Past Anesthesia/Blood Transfusion Reactions: No Reported Reaction Past Psychological History: Anxiety, Bipolar, Depression, Schizoaffective Disorder Smoking Status: Current every day smoker Past Alcohol Use History: Abuse Past Drug Use History: None Reported - Past Family History family Additional Family Medical History / Comment(s): anxiety General Exam Limitations: no limitations General appearance: alert, in no apparent distress Head exam: Present: atraumatic, normocephalic, normal inspection Respiratory exam: Present: normal lung sounds bilaterally. Absent: respiratory distress, wheezes, rales, rhonchi, stridor Cardiovascular Exam: Present: regular rate, normal rhythm, normal heart sounds. Absent: systolic murmur, diastolic murmur, rubs, gallop, clicks GI/Abdominal exam: Present: soft, normal bowel sounds. Absent: distended, tenderness, guarding, rebound, rigid Extremities exam: Present: other (Lower extremity pulses equal bilaterally dorsal pedis, posterior tibialis, equal color and equal warmth strength is equal bilaterally 5/ 5, DTRs within normal limits) Back exam: Present: full ROM, tenderness, muscle spasm, paraspinal tenderness. Absent: vertebral tenderness Neurological exam: Present: alert, oriented X3, CN II-XII intact, reflexes normal. Absent: motor sensory deficit Skin exam: Present: warm, dry, intact, normal color. Absent: rash Course Vital Signs 08/03/21 06:16 Temperature 99.5 F Pulse Rate 89 Respiratory 19 Rate Blood Pressure 141/112 O2 Sat by Pulse 99 Oximetry Medical Decision Making - Medical Decision Making CT does show degenerative changes, focal disc herniation, encroachment on the foramen patient has no red flag symptoms including bowel bladder retentionenema anesthesias. He is able to ambulate and has normal strength. Patient does have some lumbar radiculopathy in which patient will follow-up with Dr. Parham on- call orthopedic spine surgery, the patient patient agrees to plan. Patient unable take steroids secondary to diabetes, unable take Tylenol Motrin. Disposition Clinical Impression: Lumbar radiculopathy, acute Disposition: HOME SELF-CARE Condition: Stable Instructions (If sedation given, give patient instructions): Lumbar Radiculopathy (ED) Additional Instructions: Please return to the Emergency Department if symptoms worsen or any other concerns. Prescriptions: Cyclobenzaprine [Flexeril] 10 mg PO TID PRN #15 tab PRN Reason: Muscle Spasm Is patient prescribed a controlled substance at d/c from ED?: No Referrals: Marlen Mobley MD [Primary Care Provider] - 1-2 days Hayes Parham DO [Doctor of Osteopathic Medicine] - 1-2 days Time of Disposition: 07:59
[2021-08-03 08:16] VITALS: BP 123/97; PULSE 84; RESP 18; TEMP 99
== END 2021-08-03 08:15 | disposition home or self-care (01) ==
LOC: EC 06:10
DX: M54.16 Radiculopathy, lumbar region (principal); E11.9 Type 2 diabetes mellitus without complications; E78.5 Hyperlipidemia, unspecified; I10 Essential (primary) hypertension; F41.9 Anxiety disorder, unspecified; F31.9 Bipolar disorder, unspecified; F25.9 Schizoaffective disorder, unspecified; F17.200 Nicotine dependence, unspecified, uncomplicated; Z79.84 Long term (current) use of oral hypoglycemic drugs; Z96.643 Presence of artificial hip joint, bilateral
CPT/HCPCS: 99284; 96372; 72131; J3360

== ENCOUNTER 2021-08-10 17:01 | Emergency (ER) | payer MEDICARE, OTHER ==
--- NOTE | 2021-08-10 17:52 | ED ---
General Adult HPI - General Source: EMS Mode of arrival: EMS Limitations: no limitations <Rodrigue Ascencio - Last Filed: 08/10/21 17:52> <Jose F Tate - Last Filed: 08/12/21 05:21> - General Chief complaint: Psychiatric Symptoms Stated complaint: EPS eval Time Seen by Provider: 08/10/21 17:20 - History of Present Illness Initial comments: Dictation was produced using Pic[employer] dictation software. please excuse any grammatical, word or spelling errors. Chief Complaint: 56-year-old male presents to the emergency Department for suicidal ideation History of Present Illness: Patient is a 56-year-old male who has past medical history diabetes dyslipidemia and hypertension. States that he is feeling suicidal. He does not have a specific plan. Patient states he's been using computer duster and inhaling the fumes. he does not have any paranoia, not hearing any voices or seeing things. The ROS documented in this emergency department record has been reviewed and confirmed by me. Those systems with pertinent positive or negative responses have been documented in the HPI. All other systems are other negative and/or noncontributory. PHYSICAL EXAM: General Impression: Alert and oriented x3, not in acute distress HEENT: Normocephalic atraumatic, extra-ocular movements intact, pupils equal and reactive to light bilaterally, mucous membranes moist. Cardiovascular: Heart regular rate and rhythm Chest: Able to complete full sentences, no retractions, no tachypnea Musculoskeletal: no peripheral edema Motor: no focal deficits noted Neurological: CN II-XII grossly intact, no focal motor or sensory deficits noted Skin: Intact with no visualized rashes Psych: Normal affect and mood ED course: 56-year-old male presents to the emergency department for suicidal ideation. vital signs upon arrival are within acceptable limits (Rodrigue Ascencio) - Related Data Home Medications Medication Instructions Recorded Confirmed carvediloL [Coreg*] 12.5 mg PO BID 10/16/20 08/11/21 glipiZIDE [Glucotrol] 20 mg PO BID 10/16/20 08/11/21 Melatonin 5 mg PO HS PRN 02/15/21 08/11/21 busPIRone HCL 15 mg PO BID 02/15/21 08/11/21 hydrOXYzine pamoate [Vistaril] 50 mg PO DAILY PRN 02/15/21 08/11/21 Aspirin EC [Ecotrin Low Dose] 81 mg PO DAILY 08/10/21 08/11/21 Calcium/Magnesium/Zinc 1 tab PO DAILY 08/10/21 08/11/21 [Mucbdxf-Evrakatil-Faxu Tablet] Ferrous Sulfate [Feosol] 325 mg PO DAILY 08/10/21 08/11/21 Fluticasone Nasal [place] [Flonase 2 spr EA NOSTRIL DAILY PRN 08/10/21 08/11/21 Nasal [place]] Gabapentin 800 mg PO TID 08/10/21 08/11/21 Multivit-Min/Folic/Vit K/Lycop 1 tab PO DAILY 08/10/21 08/11/21 [Men's Multivitamin Tablet] Naltrexone HCl [Revia] 50 mg PO DAILY 08/10/21 08/11/21 Prazosin [Minipress] 5 mg PO HS 08/10/21 08/11/21 Sennosides [Senokot] 8.6 mg PO HS PRN 08/10/21 08/11/21 Vitamin B Complex 1 cap PO DAILY 08/10/21 08/11/21 Ziprasidone [Geodon] 40 mg PO BID 08/10/21 08/11/21 cloNIDine HCL [Catapres] 0.1 mg PO BID 08/10/21 08/11/21 clonazePAM [KlonoPIN] 1 mg PO DAILY 08/10/21 08/11/21 clonazePAM [KlonoPIN] 2 mg PO HS 08/10/21 08/11/21 Fish Oil(Unknown) 1 tab PO DAILY 08/11/21 08/11/21 Magnesium(Unknown) 1 tab PO DAILY 08/11/21 08/11/21 Turmeric(Unknown) 1 tab PO DAILY 08/11/21 08/11/21 Vitamin D3(Unknown) 1 tab PO DAILY 08/11/21 08/11/21 Previous Rx's Medication Instructions Recorded Pantoprazole [Protonix] 40 mg PO HS 30 Days tablet. 03/24/20 Pravastatin Sodium [Pravachol] 40 mg PO HS 30 Days tab 03/24/20 metFORMIN HCL [Glucophage] 1,000 mg PO BID #60 tab 06/18/20 Fenofibrate [Lofibra] 160 mg PO DAILY 30 Days tab 07/12/20 Allergies Allergy/AdvReac Type Severity Reaction Status Date / Time thimerosal Allergy Severe Rash/Hives/throat Verified 08/11/21 19:27 swelling neomycin Allergy Rash/Hives Verified 08/11/21 19:27 Review of Systems ROS Other: All systems not noted in ROS Statement are negative. <Rodrigue Ascencio - Last Filed: 08/10/21 17:52> ROS Other: All systems not noted in ROS Statement are negative. <Jose F Tate - Last Filed: 08/12/21 05:21> ROS Statement: Those systems with pertinent positive or pertinent negative responses have been documented in the HPI. 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, neuropathy, anxiety History of Any Multi-Drug Resistant Organisms: None Reported Past Surgical History: Joint Replacement Additional Past Surgical History / Comment(s): bilateral cataract removed, Both hips replaced, right heal shattered- screws/plates/ pins, cardiac cath 06/18/20 Past Anesthesia/Blood Transfusion Reactions: No Reported Reaction Past Psychological History: Anxiety, Bipolar, Depression, Schizoaffective Disorder Smoking Status: Current every day smoker Past Alcohol Use History: None Reported Past Drug Use History: None Reported - Past Family History family Additional Family Medical History / Comment(s): anxiety <Rodrigue Ascencio - Last Filed: 08/10/21 17:52> General Exam Limitations: no limitations <Rodrigue Ascencio - Last Filed: 08/10/21 17:52> Course Vital Signs 08/10/21 08/10/21 08/11/21 17:09 21:38 02:46 Temperature 98.9 F 98.7 F 98.1 F Pulse Rate 101 H 86 86 Respiratory 18 16 19 Rate Blood Pressure 162/129 135/81 110/74 O2 Sat by Pulse 99 96 97 Oximetry Medical Decision Making <Jose F Tate - Last Filed: 08/12/21 05:21> - Medical Decision Making 56-year-old male seen in [facility], patient deemed stable for discharge home (Jose F Tate) - Lab Data Lab Results 08/10/21 Range/Units 18:26 Urine Opiates Screen Negative (Negative) Urine Methadone Screen Negative (Negative) Ur Propoxyphene Screen Negative (Negative) Urine Barbiturates Negative (Negative) Ur Phencyclidine Scrn Negative (Negative) Ur Amphetamine Screen Negative (Negative) U Benzodiazepines Scrn Negative (Negative) Urine Cocaine Screen Negative (Negative) U Cannabinoids Screen Negative (Negative) Urine Alcohol Negative (Negative) Disposition <Rodrigue Ascencio D - Last Filed: 08/10/21 17:52> Is patient prescribed a controlled substance at d/c from ED?: No <Jose F Tate - Last Filed: 08/12/21 05:21> Clinical Impression: Depression, Inhalant abuse Disposition: HOME SELF-CARE Condition: Fair Instructions (If sedation given, give patient instructions): Mood Disorders (ED), Depression (ED) Referrals: Marlen Mobley MD [Primary Care Provider] - 1-2 days
[2021-08-10 21:38] VITALS: PULSE 86
[2021-08-11 02:48] VITALS: BP 110/74; RESP 19; TEMP 98.1
[2021-08-11 10:44] LABS: Urine Alcohol Negative (Negative); Urine Barbiturate Negative (Negative); Urine Cocaine Negative (Negative); Urine Methadone Negative (Negative); Urine Opiates Negative (Negative); Urine Phencyclidine Negative (Negative)
== END 2021-08-11 02:09 | disposition home or self-care (01) ==
LOC: EC 17:01
DX: F32.A Depression, unspecified (principal); F18.10 Inhalant abuse, uncomplicated; E11.40 Type 2 diabetes mellitus with diabetic neuropathy, unspecified; I10 Essential (primary) hypertension; E78.5 Hyperlipidemia, unspecified; F41.9 Anxiety disorder, unspecified; F25.9 Schizoaffective disorder, unspecified; F17.200 Nicotine dependence, unspecified, uncomplicated; Z79.84 Long term (current) use of oral hypoglycemic drugs; Z79.82 Long term (current) use of aspirin; Z79.899 Other long term (current) drug therapy
CPT/HCPCS: 80306; 82075; 99285

== ENCOUNTER 2021-08-11 16:45 | Inpatient (IN) | payer MEDICARE, OTHER ==
[2021-08-11] MEDS ORDERED: ALPRAZolam 0.5 MG TAB PO STA (17:41)
--- NOTE | 2021-08-11 17:42 | ED ---
General Adult HPI - General Source: patient Mode of arrival: wheelchair Limitations: no limitations <Rodrigue Ascencio - Last Filed: 08/11/21 17:41> <Jose F Tate - Last Filed: 08/12/21 05:19> - General Chief complaint: Psychiatric Symptoms Stated complaint: mental health Time Seen by Provider: 08/11/21 17:22 - History of Present Illness Initial comments: Dictation was produced using [employer] dictation software. please excuse any grammatical, word or spelling errors. Chief Complaint: 56-year-old male presents to the emergency Department for suicidal ideation. History of Present Illness: 26-year-old male who presents to the emergency department again for suicidal ideation. Patient was seen by me yesterday for the same complaint. Patient reports that he's been huffing air duster all day. He states he wants to hang himself. He was seen here yesterday by me. He is evaluated by EPS discharged home. Patient states he feels anxious. The ROS documented in this emergency department record has been reviewed and confirmed by me. Those systems with pertinent positive or negative responses have been documented in the HPI. All other systems are other negative and/or noncontributory. PHYSICAL EXAM: General Impression: Alert and oriented x3, not in acute distress HEENT: Normocephalic atraumatic, extra-ocular movements intact, pupils equal and reactive to light bilaterally, mucous membranes moist. Cardiovascular: Heart regular rate and rhythm Chest: Able to complete full sentences, no retractions, no tachypnea Abdomen: abdomen soft, non-tender, non-distended, no organomegaly Musculoskeletal: Pulses present and equal in all extremities, no peripheral edema Motor: no focal deficits noted Neurological: CN II-XII grossly intact, no focal motor or sensory deficits noted Skin: Intact with no visualized rashes Psych: Anxious ED course: 56-year-old male returns back to the emergency department for suicidal ideation. He states he has a plan to hang himself. Vital signs upon arrival shows heart rate of 126, rest of vital signs within acceptable limits. (Rodrigue Ascencio) - Related Data Home Medications Medication Instructions Recorded Confirmed carvediloL [Coreg*] 12.5 mg PO BID 10/16/20 08/11/21 glipiZIDE [Glucotrol] 20 mg PO BID 10/16/20 08/11/21 Melatonin 5 mg PO HS PRN 02/15/21 08/11/21 busPIRone HCL 15 mg PO BID 02/15/21 08/11/21 hydrOXYzine pamoate [Vistaril] 50 mg PO DAILY PRN 02/15/21 08/11/21 Aspirin EC [Ecotrin Low Dose] 81 mg PO DAILY 08/10/21 08/11/21 Calcium/Magnesium/Zinc 1 tab PO DAILY 08/10/21 08/11/21 [Ymdaxuw-Ujmdjlqmu-Agoc Tablet] Ferrous Sulfate [Feosol] 325 mg PO DAILY 08/10/21 08/11/21 Fluticasone Nasal [place] [Flonase 2 spr EA NOSTRIL DAILY PRN 08/10/21 08/11/21 Nasal [place]] Gabapentin 800 mg PO TID 08/10/21 08/11/21 Multivit-Min/Folic/Vit K/Lycop 1 tab PO DAILY 08/10/21 08/11/21 [Men's Multivitamin Tablet] Naltrexone HCl [Revia] 50 mg PO DAILY 08/10/21 08/11/21 Prazosin [Minipress] 5 mg PO HS 08/10/21 08/11/21 Sennosides [Senokot] 8.6 mg PO HS PRN 08/10/21 08/11/21 Vitamin B Complex 1 cap PO DAILY 08/10/21 08/11/21 Ziprasidone [Geodon] 40 mg PO BID 08/10/21 08/11/21 cloNIDine HCL [Catapres] 0.1 mg PO BID 08/10/21 08/11/21 clonazePAM [KlonoPIN] 1 mg PO DAILY 08/10/21 08/11/21 clonazePAM [KlonoPIN] 2 mg PO HS 08/10/21 08/11/21 Fish Oil(Unknown) 1 tab PO DAILY 08/11/21 08/11/21 Magnesium(Unknown) 1 tab PO DAILY 08/11/21 08/11/21 Turmeric(Unknown) 1 tab PO DAILY 08/11/21 08/11/21 Vitamin D3(Unknown) 1 tab PO DAILY 08/11/21 08/11/21 Previous Rx's Medication Instructions Recorded Pantoprazole [Protonix] 40 mg PO HS 30 Days tablet. 03/24/20 Pravastatin Sodium [Pravachol] 40 mg PO HS 30 Days tab 03/24/20 metFORMIN HCL [Glucophage] 1,000 mg PO BID #60 tab 06/18/20 Fenofibrate [Lofibra] 160 mg PO DAILY 30 Days tab 07/12/20 Allergies Allergy/AdvReac Type Severity Reaction Status Date / Time thimerosal Allergy Severe Rash/Hives/throat Verified 08/11/21 19:27 swelling neomycin Allergy Rash/Hives Verified 08/11/21 19:27 Review of Systems ROS Other: All systems not noted in ROS Statement are negative. <Rodrigue Ascencio - Last Filed: 08/11/21 17:41> ROS Other: All systems not noted in ROS Statement are negative. <Jose F Tate - Last Filed: 08/12/21 05:19> ROS Statement: Those systems with pertinent positive or pertinent negative responses have been documented in the HPI. 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, neuropathy, anxiety History of Any Multi-Drug Resistant Organisms: None Reported Past Surgical History: Joint Replacement Additional Past Surgical History / Comment(s): bilateral cataract removed, Both hips replaced, right heal shattered- screws/plates/ pins, cardiac cath 06/18/20 Past Anesthesia/Blood Transfusion Reactions: No Reported Reaction Past Psychological History: Anxiety, Bipolar, Depression, Schizoaffective Disorder Smoking Status: Current every day smoker Past Alcohol Use History: None Reported Past Drug Use History: None Reported - Past Family History family Additional Family Medical History / Comment(s): anxiety <Rodrigue Ascencio - Last Filed: 08/11/21 17:41> General Exam Limitations: no limitations <Rodrigue Ascencio - Last Filed: 08/11/21 17:41> General appearance: alert, in no apparent distress Head exam: Present: atraumatic, normocephalic, normal inspection Eye exam: Present: normal appearance, PERRL, EOMI. Absent: scleral icterus, conjunctival injection, periorbital swelling ENT exam: Present: normal exam, mucous membranes moist Neck exam: Present: normal inspection. Absent: tenderness, meningismus, lymphadenopathy Respiratory exam: Present: normal lung sounds bilaterally. Absent: respiratory distress, wheezes, rales, rhonchi, stridor Cardiovascular Exam: Present: regular rate, normal rhythm, normal heart sounds. Absent: systolic murmur, diastolic murmur, rubs, gallop, clicks GI/Abdominal exam: Present: soft, normal bowel sounds. Absent: distended, tenderness, guarding, rebound, rigid Extremities exam: Present: normal inspection, full ROM, normal capillary refill. Absent: tenderness, pedal edema, joint swelling, calf tenderness Back exam: Present: normal inspection Neurological exam: Present: alert, oriented X3, CN II-XII intact Psychiatric exam: Present: normal affect, normal mood Skin exam: Present: warm, dry, intact, normal color. Absent: rash <Jose F Tate - Last Filed: 08/12/21 05:19> Course Vital Signs 08/11/21 08/11/21 17:10 18:20 Temperature 98.2 F Pulse Rate 126 H 98 Respiratory 16 20 Rate Blood Pressure 152/97 110/77 O2 Sat by Pulse 96 96 Oximetry Medical Decision Making <Jose F Tate - Last Filed: 08/12/21 05:19> - Medical Decision Making 56-year-old male to the emergency department for evaluation. Patient deemed me dically stable for psychiatric evaluation. Patient seen and evaluated by psychiatry here in the ER and will be admitted for psychiatric evaluation and treatment (Jose F Tate) - Lab Data Lab Results 08/11/21 08/11/21 Range/Units 18:32 22:57 Urine Opiates Screen Not Detected (NotDetected) Ur Oxycodone Screen Not Detected (NotDetected) Urine Methadone Screen Not Detected (NotDetected) Ur Propoxyphene Screen Not Detected (NotDetected) Ur Barbiturates Screen Not Detected (NotDetected) U Tricyclic Antidepress Detected H (NotDetected) Ur Phencyclidine Scrn Not Detected (NotDetected) Ur Amphetamines Screen Not Detected (NotDetected) U Methamphetamines Scrn Not Detected (NotDetected) U Benzodiazepines Scrn Detected H (NotDetected) Urine Cocaine Screen Not Detected (NotDetected) U Marijuana (THC) Screen Not Detected (NotDetected) Coronavirus (PCR) Not Detected (Not Detectd) Disposition <Rodrigue Ascencio - Last Filed: 08/11/21 17:41> Is patient prescribed a controlled substance at d/c from ED?: No <Jose F Tate - Last Filed: 08/12/21 05:19> Clinical Impression: Depression, Inhalant abuse, Acute psychosis, Suicidal ideation Disposition: TRANSFER TO PSYCH HOSP/UNIT Condition: Fair
[2021-08-11 19:04] LABS: Amphetamine Screen,Urine Not Detected (NotDetected); Barbiturate Screen,Urine Not Detected (NotDetected); Benzodiazepines Screen,Urine Detected (NotDetected); Cocaine Screen,Urine Not Detected (NotDetected); Methadone Screen, Urine Not Detected (NotDetected); Opiate Screen,Urine Not Detected (NotDetected); Oxycodone Screen, Urine Not Detected (NotDetected); Phencyclidine Screen,Urine Not Detected (NotDetected); Tricyclic Antidepressant,Urine Detected (NotDetected); Urn Cannabinoid Scrn Not Detected (NotDetected)
[2021-08-12] MEDS ORDERED: ACETAMINOPHEN TAB 325 MG TAB PO PRN (01:16)
[2021-08-12] MEDS ORDERED: MAG HYDROX/AL HYDROX/SIMETH 30 ML CUP PO PRN (01:16)
[2021-08-12] MEDS ORDERED: HALOPERIDOL LACTATE 5 MG/ML 1 ML VIAL IM PRN (01:16)
[2021-08-12] MEDS ORDERED: MAGNESIUM HYDROXIDE 2,400 MG/10 ML CUP PO PRN (01:16)
[2021-08-12] MEDS ORDERED: haloperidoL 5 MG TAB PO PRN (01:26)
[2021-08-12 07:49] LABS: Glucose,Whole Blood 125 mg/dL (75-99)
[2021-08-12] MEDS: NICOTINE 14MG/24HR PATCH TRANSDERM SCH (08:40)
[2021-08-12] MEDS: GABAPENTIN 400 MG CAP PO SCH ×3 (08:41→21:23)
[2021-08-12] MEDS: MULTIVITAMINS, THERA 1 EACH TAB PO SCH (08:41)
[2021-08-12] MEDS: metFORMIN 500 MG TAB PO SCH ×2 (08:41→20:01)
[2021-08-12] MEDS: NALTREXONE HCL 50 MG TAB PO SCH (08:41)
[2021-08-12] MEDS: ASPIRIN 81 MG PO SCH (08:41)
[2021-08-12] MEDS: carvediloL 12.5 MG TAB PO SCH ×2 (08:41→18:00)
[2021-08-12] MEDS: cloNIDine HCL 0.1 MG TAB PO SCH ×2 (08:41→20:01)
[2021-08-12] MEDS: ZIPRASIDONE 40 MG CAP PO SCH ×2 (08:41→20:01)
[2021-08-12] MEDS ORDERED: hydrOXYzine HCL 50 MG/ML 1 ML VIAL IM PRN (09:00)
[2021-08-12] MEDS ORDERED: busPIRone HCl 5 MG TAB PO SCH (09:00)
[2021-08-12] MEDS ORDERED: hydrOXYzine pamoate 25 MG CAP PO PRN (09:00)
[2021-08-12] MEDS ORDERED: FLUTICASONE 50MCG/SPRAY NASAL 16GM EA NOSTRIL PRN (09:00)
[2021-08-12] MEDS: glipiZIDE 10 MG TAB PO SCH ×2 (09:05→21:23)
[2021-08-12 12:47] LABS: Glucose,Whole Blood 102 mg/dL (75-99)
--- NOTE | 2021-08-12 14:43 | P.HP ---
Psychiatric H&P - . H&P Date: 08/12/21 History & Physical: IDENTIFYING DATA: Andrea is a 56-year-old male admitted to the psychiatric unit voluntarily with complaints of depression, suicidal ideation and relapse to inhalation of air duster. HISTORY OF PRESENT ILLNESS: I reviewed the medical record and interviewed the patient. He is known to the psychiatric unit from prior admissions. We last discharged from in June 2020 with the diagnoses of major depressive disor kaitlynn, anxiety disorder, inhalant abuse and nicotine dependence. He stated that he was doing well until approximately one month prior to admission. He has been living in one of the three-quarter houses operated by [facility], meeting with his monogram maker that [facility] weekly and complying with medications prescribed by this [facility] psychiatrist. The change in his mental health status began when [facility] reshuffled clients in the three-quarter houses. He complained that he moved into a home with 3 other men and [facility] did not have regional property manager. The other residents of the home were irresponsible and did not contribute to the day-to-day upkeep of the house. He gave several examples that he found distressing. 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 He complained to [facility] management to no avail. He became increasingly frustrated and began neglecting himself. He stated that he stopped taking his medications regularly. The week of admission he relapsed to inhalation of air duster's. He stated he became so distressed they went to a local pharmacy and bought a can of air duster. After insulating the solvent he experiences visual hallucinations and began having thoughts of suicide. He expressed feelings of hopelessness and helplessness. He became distressed when he began having thoughts of overdosing on his prescription medications. He spoke to one of the managers of his request who recommended that he go to the . He presented to the initially with the complaint that he had an argument with his roommate. The EPS note indicates that he denied suicidal or homicidal ideations. He returned to the later the same day complaining of suicidal thoughts and expressed an interest in inpatient drug rehabilitation. He told the EPS nurse that he has not been taking his prescribed psychiatric medications for approximately 1-2 weeks. He reported suicidal thoughts with a plan of hanging or overdose and that he "would not be safe to be discharged and wants to be ." He denied the use of other drugs such as alcohol, cocaine, methamphetamine, or opioid pain medications, marijuana or heroin. He described continued anxiety in social situations. He denied symptoms suggestive of obsessions or compulsions. He described visual hallucinations and paranoia when he was abusing inhalants. PAST PSYCHIATRIC HISTORY: He has a long history of psychiatric illness with multiple psychiatric hospitalizations. According to [facility] his diagnosis he has a bipolar disorder, social anxiety disorder, alcohol use disorder and intellect use disorder. He last met with Dr. Dela Cruz that [facility] on 07/14/2021. His psychotropic medications are: Clonazepam 1 mg in the morning and 2 mg at bedtime, Geodon 40 mg twice a day, Vistaril 50 mg once a day when necessary, Prilosec prazosin 5 mg at bedtime and naltrexone 50 mg daily. This is his fifth or sixth psychiatric hospitalization. PAST MEDICAL HISTORY: Diabetes mellitus, back\\hip pain, obstructive sleep apnea ALLERGIES: Thimerosal, neomycin SUBSTANCE USE HISTORY: He has a history of inhalant abuse as well as alcohol use disorder. All his prior admissions to our psychiatric unit related to inhaling or "huffing" air duster. At his worst, he was inhaling 12 cans of air duster per day. He has been in residential substance abuse treatment programs and is currently living in a community house for substance use. FAMILY PSYCHIATRIC/SUBSTANCE USE HISTORY: His father had a history of a mental illness. LEGAL HISTORY: He is also in mental health court for legal charges related to inhalant use. SOCIAL HISTORY: His born and raised in [place]. 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 He is on disability related to his mental and physical problems. He last worked earlier this year for one month at the local [employer]. He quit when the work became too demanding. He is and has one son with whom he has no contact. MENTAL STATUS EXAM: He presented as a squat 56-year-old male with a shaved head. He made eye contact and appeared to attend to the interview. He had no prominent physical abnormalities. He had a blunted facial expression. He was alert and oriented to person, place and time. He had psychomotor retardation but no abnormal involuntary movements. His speech was spontaneous with decreased rate and rhythm. He had no articulation difficulties. His affect was depressed but reactive. He expressed suicidal ideation and wishes. He denied suicidal ideation. He expressed feelings of hopelessness, helplessness and worthlessness. He obsessed didn't ruminated over the residential problems and difficulty seeing experience as result of his inhalant abuse. He did not express ideas of reference, paranoid ideation, magical thinking or delusions. His thinking was concrete but his associations were coherent, logical and goal directed. He denied hallucinations did not appear to be responding to internal stimuli. Global impression of intellect is average. He is aware of his illness and need for treatment. STRENGTHS: Stable income, stable housing, engagement with mental health services, supportive relationship with his sister WEAKNESSES: Substance use problems, chronic physical problems IMPRESSION: . He said his 6-year-old male with multiple medical problems. He presented with complaints of suicidal ideation and a plan to hang himself or overdose on his prescription medications. The suicidal id eation developed in the context of problems with his living situation and subsequent poor compliance with prescription medication then relapse to inhalant use. He should be treated inpatient basis with a combination of psychopharmacology and multimodal therapy. PRINCIPLE DIAGNOSIS: Suicidal ideation, and he'll use disorder bipolar disorder current episode depressed without psychotic features, social anxiety disorder, alcohol use disorder in remission RECOMMENDATION: Admitted to the psychiatric unit voluntarily. Safety precautions. Consult medicine for initial physical exam and medical history. field crop harvest worker completed the initial psychosocial assessment and coordinate discharge and aftercare services. Continue his outpatient medications including clonazepam 1 mg in the morning and 2 mg at bedtime, Geodon 40 mg twice a day, Vistaril 50 mg daily when necessary, prazosin 5 mg at bedtime and naltrexone 50 mg daily. Discharge to residential substance abuse treatment. Encourage parti cipation in therapeutic groups and activities. Evaluate clinical status response to treatment daily basis. Allergies Allergy/AdvReac Type Severity Reaction Status Date / Time thimerosal Allergy Severe Rash/Hives/throat Verified 08/11/21 19:27 swelling neomycin Allergy Rash/Hives Verified 08/11/21 19:27 Vital Signs Temp 97.7 F 08/12/21 08:35 Pulse 110 H 08/12/21 08:35 Resp 18 08/12/21 08:35 BP 110/73 08/12/21 08:35 Pulse Ox 97 08/12/21 08:35 Intake & Output 08/11/21 08/12/21 08/12/21 18:59 06:59 18:59 Weight 81.647 kg Laboratory Last Values POC Glucose (mg/dL) 125 mg/dL (75-99) H 08/12/21 07:47 POC Glu General Worker ID Louise Howard 08/12/21 07:47 Urine Opiates Screen Not Detected (NotDetected) 08/11/21 18:32 Ur Oxycodone Screen Not Detected (NotDetected) 08/11/21 18:32 Urine Methadone Screen Not Detected (NotDetected) 08/11/21 18:32 Ur Propoxyphene Screen Not Detected (NotDetected) 08/11/21 18:32 Ur Barbiturates Screen Not Detected (NotDetected) 08/11/21 18:32 U Tricyclic Antidepress Detected (NotDetected) H 08/11/21 18:32 Ur Phencyclidine Scrn Not Detected (NotDetected) 08/11/21 18:32 Ur Amphetamines Screen Not Detected (NotDetected) 08/11/21 18:32 U Methamphetamines Scrn Not Detected (NotDetected) 08/11/21 18:32 U Benzodiazepines Scrn Detected (NotDetected) H 08/11/21 18:32 Urine Cocaine Screen Not Detected (NotDetected) 08/11/21 18:32 U Marijuana (THC) Screen Not Detected (NotDetected) 08/11/21 18:32 Coronavirus (PCR) Not Detected (Not Detectd) 08/11/21 22:57 08/12/21 09:43 08/12/21 14:39
[2021-08-12 17:35] LABS: Glucose,Whole Blood 166 mg/dL (75-99)
[2021-08-12 19:54] LABS: Glucose,Whole Blood 137 mg/dL (75-99)
[2021-08-12] MEDS: PRAVASTATIN SODIUM 40 MG TAB PO SCH (20:01)
[2021-08-12] MEDS: PANTOPRAZOLE 40 MG TABLET PO SCH (20:01)
[2021-08-12] MEDS: PRAZOSIN 1 MG CAP PO SCH (20:01)
[2021-08-12] MEDS: clonazePAM 1 MG TAB PO SCH (21:23)
[2021-08-13 07:50] LABS: Glucose,Whole Blood 163 mg/dL (75-99)
[2021-08-13] MEDS: ASPIRIN 81 MG PO SCH (08:39)
[2021-08-13] MEDS: glipiZIDE 10 MG TAB PO SCH ×2 (08:39→21:09)
[2021-08-13] MEDS: metFORMIN 500 MG TAB PO SCH ×2 (08:40→21:09)
[2021-08-13] MEDS: clonazePAM 1 MG TAB PO SCH ×2 (08:43→21:08)
[2021-08-13] MEDS: NICOTINE 14MG/24HR PATCH TRANSDERM SCH (08:43)
[2021-08-13] MEDS: cloNIDine HCL 0.1 MG TAB PO SCH ×2 (08:45→21:09)
[2021-08-13] MEDS: carvediloL 12.5 MG TAB PO SCH ×2 (08:45→16:47)
[2021-08-13] MEDS: ZIPRASIDONE 40 MG CAP PO SCH ×2 (09:38→21:09)
[2021-08-13] MEDS: MULTIVITAMINS, THERA 1 EACH TAB PO SCH (09:39)
[2021-08-13] MEDS: GABAPENTIN 400 MG CAP PO SCH ×3 (09:41→22:29)
[2021-08-13] MEDS: NALTREXONE HCL 50 MG TAB PO SCH (09:42)
[2021-08-13 10:37] LABS: Basophils # (A) 0.1 k/uL (0-0.2); Basophils % (A) 1 %; Eosinophils # (A) 0.3 k/uL (0-0.7); Eosinophils % (A) 4 %; HCT 41.6 % (39.0-53.0); HGB 13.1 gm/dL (13.0-17.5); Lymphocytes # (A) 2.6 k/uL (1.0-4.8); Lymphocytes % (A) 33 %; MCH 29.9 pg (25.0-35.0); MCHC 31.5 g/dL (31.0-37.0); MCV 94.7 fL (80.0-100.0); Mean Platelet Volume 7.4; Monocytes # (A) 0.3 k/uL (0-1.0); Monocytes % (A) 4 %; Neutrophils # (A) 4.2 k/uL (1.3-7.7); Neutrophils % (A) 54 %; Platelet Count 284 k/uL (150-450); RBC 4.39 m/uL (4.30-5.90); RDW 14.2 % (11.5-15.5); WBC 7.8 k/uL (3.8-10.6)
[2021-08-13 10:57] LABS: Albumin 4.5 g/dL (3.5-5.0); Calcium 9.1 mg/dL (8.4-10.2); Potassium 4.7 mmol/L (3.5-5.1); Total Bilirubin 0.5 mg/dL (0.2-1.3); Total Protein 7.6 g/dL (6.3-8.2)
--- NOTE | 2021-08-13 11:06 | P.PN ---
Progress Note - Text Progress Note Date: 08/13/21 Interval History: Patient was seen in his room and was directable and agreeable to speak with life insurance underwriter. He has a long history of psychiatric illness with multiple psychiatric hospitalizations. According to [facility] his diagnosis he has a bipolar disorder, social anxiety disorder, alcohol use disorder and intellect use disorder. At this time patient denies any suicidal or homical ideations, intent or plan. Patient denies any auditory, visual hallucinations and denies any paranoia or delusions. Patient denies any side effects from the medications and has been compliant with meds. Mental Status Exam: General Appearance: Patient appears to be stated age is alert, directable, and cooperative. Behavior: Patient is calmly seated without any agitated behavior. Speech: Patient's speech is fluent and nonpressured. Mood/Affect: Mood is improving mildly, affect is congruent and constricted. Suicidality/Homicidality: Patient denies having any suicidal or homicidal ideation intent or plan. Perceptions: Patient denies any visual hallucinations and denies any auditory hallucinations Though content/process: There is no evidence of any delusional thought content and thought process is linear and goal-directed. Memory and concentration: AOX3, grossly intact for the purposes of this session Judgment and insight: Improving mildly Assessment Patient stated that that he is very tired and continues to show severe depressive symptomatology which requires treatment in the hospital. Plan: -Patient continues to meet criteria for inpatient psychiatric admission for symptom stabilization and safety. -Medications: Continue medication as before. -When necessary Ativan and Haldol for agitation/aggression. -SW on board for discharge planning. Encouraged the patient to participate in milieu.
[2021-08-13 12:36] LABS: Glucose,Whole Blood 164 mg/dL (75-99)
[2021-08-13] MEDS: hydrOXYzine pamoate 25 MG CAP PO PRN (15:24)
[2021-08-13] MEDS: ZIPRASIDONE 20 MG CAP PO PRN (17:15)
[2021-08-13 17:23] LABS: Glucose,Whole Blood 67 mg/dL (75-99)
[2021-08-13 17:28] LABS: Glucose,Whole Blood 86 mg/dL (75-99)
[2021-08-13 17:54] LABS: HDL Cholesterol 38.1 mg/dL (40.00-60.00)
[2021-08-13 18:24] LABS: Chol/HDL Ratio 6.17 Ratio
[2021-08-13 20:02] LABS: Glucose,Whole Blood 99 mg/dL (75-99)
[2021-08-13] MEDS: PRAVASTATIN SODIUM 40 MG TAB PO SCH (21:09)
[2021-08-13] MEDS: PRAZOSIN 1 MG CAP PO SCH (21:09)
[2021-08-13] MEDS: PANTOPRAZOLE 40 MG TABLET PO SCH (21:09)
--- NOTE | 2021-08-14 01:17 | P.PN ---
Progress Note - Text Progress Note Date: 08/13/21 patient declined medical evaluation
[2021-08-14 06:53] VITALS: RESP 16
[2021-08-14 07:52] LABS: Glucose,Whole Blood 178 mg/dL (75-99)
[2021-08-14] MEDS: carvediloL 12.5 MG TAB PO SCH ×2 (07:59→18:09)
[2021-08-14] MEDS: cloNIDine HCL 0.1 MG TAB PO SCH ×2 (08:00→20:33)
[2021-08-14] MEDS: glipiZIDE 10 MG TAB PO SCH ×2 (08:01→20:33)
[2021-08-14] MEDS: NALTREXONE HCL 50 MG TAB PO SCH (08:01)
[2021-08-14] MEDS: MULTIVITAMINS, THERA 1 EACH TAB PO SCH (08:01)
[2021-08-14] MEDS: NICOTINE 14MG/24HR PATCH TRANSDERM SCH (08:01)
[2021-08-14] MEDS: ASPIRIN 81 MG PO SCH (08:01)
[2021-08-14] MEDS: GABAPENTIN 400 MG CAP PO SCH ×3 (08:01→20:34)
[2021-08-14] MEDS: PRAVASTATIN SODIUM 40 MG TAB PO SCH (08:01)
[2021-08-14] MEDS: metFORMIN 500 MG TAB PO SCH ×2 (08:01→20:34)
[2021-08-14] MEDS: ZIPRASIDONE 40 MG CAP PO SCH ×2 (08:02→20:34)
[2021-08-14] MEDS: clonazePAM 1 MG TAB PO SCH ×2 (08:28→20:32)
--- NOTE | 2021-08-14 11:05 | P.PN ---
Progress Note - Text Progress Note Date: 08/14/21 Interval History: Patient was seen in his room and was directable and agreeable to speak with typewriter repairer. Patient is a very withdrawn and preoccupied and is staying to himself. He is feeling tired. He speaks in low monotonous voice.. At this time patient denies any suicidal or homical ideations, intent or plan. Patient denies any auditory, visual hallucinations and denies any paranoia or delusions. Patient denies any side effects from the medications and has been compliant with meds. Mental Status Exam: General Appearance: Patient appears to be stated age is alert, directable, and cooperative. Behavior: Patient is calmly seated without any agitated behavior. Speech: Patient's speech is non fluent and nonpressured. Mood/Affect: Mood is improving mildly, affect is congruent and constricted. Suicidality/Homicidality: Patient denies having any suicidal or homicidal ideation intent or plan. Perceptions: Patient denies any visual hallucinations and denies any auditory hallucinations Though content/process: There is no evidence of any delusional thought content and thought process is linear and goal-directed. Memory and concentration: AOX3, grossly intact for the purposes of this session Judgment and insight: Improving mildly Assessment Patient continues to show severe depressive symptomatology necessitating hospitalization. Plan: -Patient continues to meet criteria for inpatient psychiatric admission for symptom stabilization and safety. -Medications: Continue medication as before. -When necessary Ativan and Haldol for agitation/aggression. -SW on board for discharge planning. Encouraged the patient to participate in milieu.
[2021-08-14 12:37] LABS: Glucose,Whole Blood 96 mg/dL (75-99)
[2021-08-14] MEDS: hydrOXYzine pamoate 25 MG CAP PO PRN (12:43)
[2021-08-14 14:46] LABS: Glucose,Whole Blood 104 mg/dL (75-99)
[2021-08-14] MEDS: ZIPRASIDONE 20 MG CAP PO PRN (14:50)
[2021-08-14] MEDS ORDERED: CALCIUM CARBONATE 500 MG CHEWABLE PO PRN (17:13)
--- NOTE | 2021-08-14 17:14 | P.MDCNMH ---
History of Present Illness H&P Date: 08/14/21 Chief Complaint: Medical management Patient is a 55-year-old male with diabetes mellitus type 2 [id number], hypertension, neuropathy, dyslipidemia, and chronic pain who initially presented to the emergency department secondary to worsening anxiety and depression. Medicine consulted for medical management Patient seen and examined at bedside. He denies any fevers, chills, nausea, vomiting, lightheadedness, dizziness, chest pain, palpitations, shortness of breath, abd pain, diarrhea, constipation, numbness/weakness of extremities. He has been eating and drinking well and was able to drink water throughout the day yesterday. He denies any dysuria or difficulty urinating. All Systems reviewed and pertinent positives and negatives noted in HPI, all other symptoms are negative Gen: awake, alert HEENT: normocephalic, atraumatic, good hearing acuity, moist mucous membranes Resp: good air exchange, breathing comfortably with no accessory muscle use CVS: good distal perfusion x 4, GI: soft, NTTP, ND : no SPT, no CVAT, camarena catheter not present MSK: no pitting edema, no clubbing Neuro: non-focal, moving all extremities, cranial nerves II through XII are intact Psych: cooperative, euthymic mood Assessment/plan: Chronic kidney disease Hypertension -He is not on an HOANG inhibitor, would recommend PCP consider this for chronic kidney disease and hypertension -Continue clonidine twice a day, Coreg DM 2 with neuropathy -Okay to resume home glipizide, metformin Dyslipidemia -Fenofibrate, -Resume home pravastatin Polysubstance abuse -Cessation counselor recommended Anemia -Chronic and at baseline -Outpatient follow-up GERD without esophagitis -Tums when necessary Surrogate decision-maker: CODE STATUS:full Thank you for this consult. A member of our team is available 18/12 home please recheck should there be any further questions or concerns. 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, neuropathy, anxiety History of Any Multi-Drug Resistant Organisms: None Reported Past Surgical History: Joint Replacement Additional Past Surgical History / Comment(s): bilateral cataract removed, Both hips replaced, right heal shattered- screws/plates/ pins, cardiac cath 06/18/20 Past Anesthesia/Blood Transfusion Reactions: No Reported Reaction Past Psychological History: Anxiety, Bipolar, Depression, Schizoaffective Disorder Smoking Status: Current every day smoker Past Alcohol Use History: None Reported Past Drug Use History: None Reported - Past Family History family Additional Family Medical History / Comment(s): anxiety Medications and Allergies Home Medications Medication Instructions Recorded Confirmed Type Pantoprazole [Protonix] 40 mg PO HS 30 Days tablet. 03/24/20 08/11/21 Rx Pravastatin Sodium [Pravachol] 40 mg PO HS 30 Days tab 03/24/20 08/11/21 Rx metFORMIN HCL [Glucophage] 1,000 mg PO BID #60 tab 06/18/20 08/11/21 Rx Fenofibrate [Lofibra] 160 mg PO DAILY 30 Days tab 07/12/20 08/11/21 Rx carvediloL [Coreg*] 12.5 mg PO BID 10/16/20 08/11/21 History glipiZIDE [Glucotrol] 20 mg PO BID 10/16/20 08/11/21 History Melatonin 5 mg PO HS PRN 02/15/21 08/11/21 History busPIRone HCL 15 mg PO BID 02/15/21 08/11/21 History hydrOXYzine pamoate [Vistaril] 50 mg PO DAILY PRN 02/15/21 08/11/21 History Aspirin EC [Ecotrin Low Dose] 81 mg PO DAILY 08/10/21 08/11/21 History Calcium/Magnesium/Zinc 1 tab PO DAILY 08/10/21 08/11/21 History [Gimkcgb-Valixxopi-Styq Tablet] Ferrous Sulfate [Feosol] 325 mg PO DAILY 08/10/21 08/11/21 History Fluticasone Nasal [place] [Flonase 2 spr EA NOSTRIL DAILY PRN 08/10/21 08/11/21 History Nasal [place]] Gabapentin 800 mg PO TID 08/10/21 08/11/21 History Multivit-Min/Folic/Vit K/Lycop 1 tab PO DAILY 08/10/21 08/11/21 History [Men's Multivitamin Tablet] Naltrexone HCl [Revia] 50 mg PO DAILY 08/10/21 08/11/21 History Prazosin [Minipress] 5 mg PO HS 08/10/21 08/11/21 History Sennosides [Senokot] 8.6 mg PO HS PRN 08/10/21 08/11/21 History Vitamin B Complex 1 cap PO DAILY 08/10/21 08/11/21 History Ziprasidone [Geodon] 40 mg PO BID 08/10/21 08/11/21 History cloNIDine HCL [Catapres] 0.1 mg PO BID 08/10/21 08/11/21 History clonazePAM [KlonoPIN] 1 mg PO DAILY 08/10/21 08/11/21 History clonazePAM [KlonoPIN] 2 mg PO HS 08/10/21 08/11/21 History Fish Oil(Unknown) 1 tab PO DAILY 08/11/21 08/11/21 History Magnesium(Unknown) 1 tab PO DAILY 08/11/21 08/11/21 History Turmeric(Unknown) 1 tab PO DAILY 08/11/21 08/11/21 History Vitamin D3(Unknown) 1 tab PO DAILY 08/11/21 08/11/21 History Allergies Allergy/AdvReac Type Severity Reaction Status Date / Time thimerosal Allergy Severe Rash/Hives/throat Verified 08/11/21 19:27 swelling neomycin Allergy Rash/Hives Verified 08/11/21 19:27 Physical Exam Osteopathic Statement: *. No significant issues noted on an osteopathic structural exam other than those noted in the History and Physical/Consult. Vitals: Vital Signs Temp Pulse Pulse Resp BP Pulse Ox 08/14/21 08:00 111 H 97/54 08/14/21 06:52 98.1 F 93 16 104/71 96 08/13/21 21:12 107 H 18 123/84 Intake and Output 08/14/21 08/14/21 08/14/21 06:59 14:59 22:59 Other: Weight 82.9 kg Cranial Nerve Examination - Cranial Nerves Cranial Nerve II- Optic: Intact Cranial Nerve III- Oculomotor: Intact Cranial Nerve IV- Trochlear: Intact Cranial Nerve V- Trigeminal: Intact Cranial Nerve - Abducens: Intact Cranial Nerve VII- Facial: Intact Cranial Nerve VIII- Auditory: Intact Cranial Nerve IX- Glossopharyngeal: Intact Cranial Nerve X- Vagus: Intact Cranial Nerve XI- Accessory: Intact Cranial Nerve XII- Hypoglossal: Intact Results CBC & Chem 7: 08/13/21 10:13 08/13/21 10:13 Labs: Abnormal Lab Results - Last 24 Hours (Table) 08/13/21 08/13/21 08/14/21 Range/Units 10:13 17:11 07:48 POC Glucose (mg/dL) 67 L 178 H (75-99) mg/dL Triglycerides 538.00 H (0.00-149.00) mg/dL Cholesterol 235.00 H (0.00-200.00) mg/dL HDL Cholesterol 38.10 L (40.00-60.00) mg/dL 08/14/21 Range/Units 14:44 POC Glucose (mg/dL) 104 H (75-99) mg/dL Triglycerides (0.00-149.00) mg/dL Cholesterol (0.00-200.00) mg/dL HDL Cholesterol (40.00-60.00) mg/dL
[2021-08-14 17:32] LABS: Glucose,Whole Blood 122 mg/dL (75-99)
[2021-08-14 19:54] LABS: Glucose,Whole Blood 107 mg/dL (75-99)
[2021-08-14] MEDS: PANTOPRAZOLE 40 MG TABLET PO SCH (20:34)
[2021-08-14] MEDS: PRAZOSIN 1 MG CAP PO SCH (20:34)
[2021-08-14 22:42] LABS: Glucose,Whole Blood 138 mg/dL (75-99)
[2021-08-14] MEDS: MELATONIN 5 MG TABLET PO PRN (22:54)
[2021-08-15] MEDS: ZIPRASIDONE 20 MG CAP PO PRN (05:49)
[2021-08-15 07:37] LABS: Glucose,Whole Blood 187 mg/dL (75-99)
[2021-08-15] MEDS: cloNIDine HCL 0.1 MG TAB PO SCH ×2 (08:08→20:04)
[2021-08-15] MEDS: clonazePAM 1 MG TAB PO SCH ×2 (08:08→20:04)
[2021-08-15] MEDS: ASPIRIN 81 MG PO SCH (08:08)
[2021-08-15] MEDS: GABAPENTIN 400 MG CAP PO SCH ×3 (08:09→20:04)
[2021-08-15] MEDS: FENOFIBRATE 160 MG TAB PO SCH (08:09)
[2021-08-15] MEDS: glipiZIDE 10 MG TAB PO SCH ×2 (08:10→20:09)
[2021-08-15] MEDS: metFORMIN 500 MG TAB PO SCH ×2 (08:10→20:04)
[2021-08-15] MEDS: NALTREXONE HCL 50 MG TAB PO SCH (08:11)
[2021-08-15] MEDS: MULTIVITAMINS, THERA 1 EACH TAB PO SCH (08:11)
[2021-08-15] MEDS: ZIPRASIDONE 40 MG CAP PO SCH ×2 (08:11→20:04)
[2021-08-15] MEDS: NICOTINE 14MG/24HR PATCH TRANSDERM SCH (08:11)
[2021-08-15] MEDS: carvediloL 12.5 MG TAB PO SCH ×2 (08:14→17:42)
--- NOTE | 2021-08-15 10:27 | P.PN ---
Progress Note - Text Progress Note Date: 08/15/21 Interval History: Patient was seen laying in his bed today and was directable and agreeable to s peak with consumer loan underwriter in the office. Patient appears to be fairly directable and cooperative during the interview. He states that he is feeling depressed and suicidal when he came into the hospital. He claims that he is no longer feeling like that and was speaking about going to rehab. He claims that. He has a spot for him at [facility] on . He appeared to be fairly future oriented and speaking about wanting to stay sober. He claims that he was using inhalants before coming into the hospital. He states that he has difficulty dealing with anxiety and we spoke about his benzodiazepines and the need to begin decreasing the Klonopin and patient was agreeable to this. He states that he has had better control with BuSpar and would like to have that resumed. He states that he is sleeping fairly well. Fair appetite. At this time patient denies any suicidal or homical ideations, intent or plan. Patient denies any auditory, visual hallucinations and denies any paranoia or delusions. Patient denies any side effects from the medications and has been compliant with meds. Mental Status Exam: General Appearance: Patient appears to be overweight, bald, stated age is alert, directable, and cooperative. Behavior: Patient is calmly seated without any agitated behavior. Appear somewhat anxious. Speech: Patient's speech is fluent and nonpressured. Mood/Affect: Mood is improving mildly, affect is congruent and constricted. Suicidality/Homicidality: Patient denies having any suicidal or homicidal ideation intent or plan. Perceptions: Patient denies any visual hallucinations and denies any auditory hallucinations Though content/process: There is no evidence of any delusional thought content and thought process is linear and goal-directed. [place] at times. Memory and concentration: AOX3, grossly intact for the purposes of this session Judgment and insight: Poor, Improving mildly Assessment Bipolar disorder, current episode depressed Suicidal ideations Social anxiety disorder Inhalant abuse Alcohol use disorder in remission Nicotine dependence Plan: -Patient continues to meet criteria for inpatient psychiatric admission for symptom stabilization and safety. Patient has signed adult voluntary form and medication consent and was placed in patient's chart. -Medications: Decreased Klonopin to 1 mg twice a day for anxiety, melatonin 5 mg daily at bedtime for insomnia, resumed BuSpar 15 mg twice a day for anxiety. Continue with Geodon 40 mg twice a day, naltrexone 50 mg daily for cravings, prazosin 5 mg daily at bedtime for nightmares. -Vistaril when necessary for anxiety. -When necessary Ativan and Haldol for agitation/aggression. -NRT - nicotine patch -SW on board for discharge planning. Encouraged the patient to participate in milieu. Patient has an intake appointment at [facility] for rehab on likely discharge then.
[2021-08-15 10:35] LABS: Appearance,Urine Clear (Clear); Bilirubin,Urine Negative (Negative); Blood,Urine Negative (Negative); Color,Urine Light Yellow; Glucose,Urine (UA) 3+ (Negative); Ketones,Urine Negative (Negative); Leukocyte Esterase,Urine Negative (Negative); Nitrite,Urine Negative (Negative); Protein,Urine Negative (Negative); Specific Gravity,Urine 1.009 (1.001-1.035); Urobilinogen,Urine <2.0 mg/dL (<2.0)
[2021-08-15 12:47] LABS: Glucose,Whole Blood 147 mg/dL (75-99)
[2021-08-15 17:36] LABS: Glucose,Whole Blood 150 mg/dL (75-99)
[2021-08-15 19:48] LABS: Glucose,Whole Blood 131 mg/dL (75-99)
[2021-08-15] MEDS: PANTOPRAZOLE 40 MG TABLET PO SCH (20:04)
[2021-08-15] MEDS: PRAZOSIN 1 MG CAP PO SCH (20:05)
[2021-08-15] MEDS: busPIRone HCl 5 MG TAB PO SCH (20:05)
[2021-08-15] MEDS: PRAVASTATIN SODIUM 40 MG TAB PO SCH (20:09)
[2021-08-16] MEDS: MELATONIN 5 MG TABLET PO PRN (01:14)
[2021-08-16 07:43] LABS: Glucose,Whole Blood 155 mg/dL (75-99)
[2021-08-16] MEDS: ASPIRIN 81 MG PO SCH (08:18)
[2021-08-16] MEDS: busPIRone HCl 5 MG TAB PO SCH ×2 (08:18→20:38)
[2021-08-16] MEDS: FENOFIBRATE 160 MG TAB PO SCH (08:18)
[2021-08-16] MEDS: metFORMIN 500 MG TAB PO SCH ×2 (08:19→20:39)
[2021-08-16] MEDS: ZIPRASIDONE 40 MG CAP PO SCH ×2 (08:19→20:41)
[2021-08-16] MEDS: cloNIDine HCL 0.1 MG TAB PO SCH ×2 (08:19→20:39)
[2021-08-16] MEDS: clonazePAM 1 MG TAB PO SCH ×2 (08:19→20:38)
[2021-08-16] MEDS: GABAPENTIN 400 MG CAP PO SCH ×3 (08:19→20:41)
[2021-08-16] MEDS: MULTIVITAMINS, THERA 1 EACH TAB PO SCH (08:19)
[2021-08-16] MEDS: glipiZIDE 10 MG TAB PO SCH ×2 (08:19→20:39)
[2021-08-16] MEDS: NICOTINE 14MG/24HR PATCH TRANSDERM SCH (08:20)
[2021-08-16] MEDS: carvediloL 12.5 MG TAB PO SCH ×2 (08:20→18:08)
[2021-08-16] MEDS: NALTREXONE HCL 50 MG TAB PO SCH (08:20)
--- NOTE | 2021-08-16 11:05 | P.PN ---
Progress Note - Text Progress Note Date: 08/16/21 Interval History: Patient was seen laying in his bed today and was directable and agreeable to s peak with short story writer in the office. Patient appears to be fairly directable and cooperative during the interview. She continues to have a constricted affect. He states that his depression has been improving since being on the medications. He did claim however that he did not sleep very well last night. He claims that he kept on having dreams and waking up. He states that he was on Remeron in the past which helped him. He claims that she has been trying to go to some groups and that he been helping. He continues to be fairly concrete. His hygiene and grooming have been improving. He claims that he is still willing to go to rehab and then [facility]. Fair appetite. At this time patient denies any suicidal or homical ideations, intent or plan. Patient denies any auditory, visual hallucinations and denies any paranoia or delusions. Patient denies any side effects from the medications and has been compliant with meds. Mental Status Exam: General Appearance: Patient appears to be overweight, bald, stated age is alert, directable, and cooperative. Behavior: Patient is calmly seated without any agitated behavior. Less anxious today. Speech: Patient's speech is fluent and nonpressured. [place]. Mood/Affect: Mood is improving mildly, affect is congruent and constricted. Suicidality/Homicidality: Patient denies having any suicidal or homicidal ideation intent or plan. Perceptions: Patient denies any visual hallucinations and denies any auditory hallucinations Though content/process: There is no evidence of any delusional thought content and thought process is linear and goal-directed. [place] at times. Memory and concentration: AOX3, grossly intact for the purposes of this session Judgment and insight: Poor, Improving mildly Assessment Bipolar disorder, current episode depressed Suicidal ideations Social anxiety disorder Inhalant abuse Alcohol use disorder in remission Nicotine dependence Plan: -Patient continues to meet criteria for inpatient psychiatric admission for symptom stabilization and safety. Patient has signed adult voluntary form and medication consent and was placed in patient's chart. -Medications: Klonopin 1 mg twice a day for anxiety, increase melatonin 10 mg daily at bedtime for insomnia, BuSpar 15 mg twice a day for anxiety. Continue with Geodon 40 mg twice a day, naltrexone 50 mg daily for cravings, prazosin 5 mg daily at bedtime for nightmares. added remeron 15 mg qhs for insomnia/mood. -Vistaril when necessary for anxiety. -When necessary Ativan and Haldol for agitation/aggression. -NRT - nicotine patch -SW on board for discharge planning. Encouraged the patient to participate in milieu. Patient has an intake appointment at [facility] for rehab on likely discharge then.
[2021-08-16 12:42] LABS: Glucose,Whole Blood 129 mg/dL (75-99)
[2021-08-16] MEDS: hydrOXYzine pamoate 25 MG CAP PO PRN (14:01)
[2021-08-16] MEDS: ZIPRASIDONE 20 MG CAP PO PRN (14:01)
[2021-08-16 17:40] LABS: Glucose,Whole Blood 167 mg/dL (75-99)
[2021-08-16 20:05] LABS: Glucose,Whole Blood 126 mg/dL (75-99)
[2021-08-16] MEDS: MELATONIN 5 MG TABLET PO SCH (20:39)
[2021-08-16] MEDS: PRAZOSIN 1 MG CAP PO SCH (20:40)
[2021-08-16] MEDS: PRAVASTATIN SODIUM 40 MG TAB PO SCH (20:40)
[2021-08-16] MEDS: MIRTAZAPINE 15 MG TAB PO SCH (20:40)
[2021-08-16] MEDS: PANTOPRAZOLE 40 MG TABLET PO SCH (20:40)
[2021-08-17 07:38] LABS: Glucose,Whole Blood 149 mg/dL (75-99)
[2021-08-17] MEDS: FENOFIBRATE 160 MG TAB PO SCH (08:17)
[2021-08-17] MEDS: glipiZIDE 10 MG TAB PO SCH ×2 (08:18→19:44)
[2021-08-17] MEDS: NICOTINE 14MG/24HR PATCH TRANSDERM SCH (08:18)
[2021-08-17] MEDS: busPIRone HCl 5 MG TAB PO SCH ×2 (08:18→19:37)
[2021-08-17] MEDS: metFORMIN 500 MG TAB PO SCH ×2 (08:18→19:37)
[2021-08-17] MEDS: carvediloL 12.5 MG TAB PO SCH ×2 (08:18→17:45)
[2021-08-17] MEDS: ZIPRASIDONE 40 MG CAP PO SCH ×2 (08:18→19:40)
[2021-08-17] MEDS: MULTIVITAMINS, THERA 1 EACH TAB PO SCH (08:18)
[2021-08-17] MEDS: ASPIRIN 81 MG PO SCH (08:18)
[2021-08-17] MEDS: cloNIDine HCL 0.1 MG TAB PO SCH ×2 (08:18→19:38)
[2021-08-17] MEDS: NALTREXONE HCL 50 MG TAB PO SCH (08:18)
[2021-08-17] MEDS: GABAPENTIN 400 MG CAP PO SCH ×3 (08:19→19:37)
[2021-08-17] MEDS: clonazePAM 1 MG TAB PO SCH ×3 (08:19→19:47)
--- NOTE | 2021-08-17 09:32 | P.PN ---
Progress Note - Text Progress Note Date: 08/17/21 Interval History: Patient was seen laying in his bed today and was directable and agreeable to s peak with repairer typewriter in the office. Patient appears to be fairly directable and cooperative during the interview. He appears to have improvement in his affect today. He states that he is doing a bit better since yesterday in terms of his mood and anxiety. He states that the BuSpar has been helping. He also claims that he was able to sleep better last night with the Remeron. He claimed that he did not have any nightmares last night. He states that he has been going to some groups and attending to participate as best as he can. He states that he is looking forward to going to rehab tomorrow and has a ride to pick him up in the morning. He claims that he has been showering and eating fairly well. At this time patient denies any suicidal or homical ideations, intent or plan. Patient denies any auditory, visual hallucinations and denies any paranoia or delusions. Patient denies any side effects from the medications and has been compliant with meds. Mental Status Exam: General Appearance: Patient appears to be overweight, bald, stated age is alert, directable, and cooperative. Behavior: Patient is calmly seated without any agitated behavior. Less anxious today. Speech: Patient's speech is fluent and nonpressured. [place]. Mood/Affect: Mood is improving mildly, affect is congruent and constricted. Suicidality/Homicidality: Patient denies having any suicidal or homicidal ideation intent or plan. Perceptions: Patient denies any visual hallucinations and denies any auditory hallucinations Though content/process: There is no evidence of any delusional thought content and thought process is linear and goal-directed. [place] at times, improving mildly. Memory and concentration: AOX3, grossly intact for the purposes of this session Judgment and insight: Improving mildly Assessment Bipolar disorder, current episode depressed Suicidal ideations Social anxiety disorder Inhalant abuse Alcohol use disorder in remission Nicotine dependence Plan: -Patient continues to meet criteria for inpatient psychiatric admission for symptom stabilization and safety. Patient has signed adult voluntary form and medication consent and was placed in patient's chart. -Medications: Klonopin 1 mg twice a day for anxiety, melatonin 10 mg daily at bedtime for insomnia, BuSpar 15 mg twice a day for anxiety. Continue with Geodon 40 mg twice a day, naltrexone 50 mg daily for cravings, prazosin 5 mg daily at bedtime for nightmares. remeron 15 mg qhs for insomnia/mood. -Vistaril when necessary for anxiety. -When necessary Ativan and Haldol for agitation/aggression. -NRT - nicotine patch -SW on board for discharge planning. Encouraged the patient to participate in milieu. Patient has an intake appointment at [facility] for rehab on , plan for discharge tomorrow morning as patient will be picked up in the morning and transported there. Patient is at very high risk for relapse and self harm if he is not discharged directly to rehab.
[2021-08-17 12:38] LABS: Glucose,Whole Blood 192 mg/dL (75-99)
[2021-08-17] MEDS: hydrOXYzine pamoate 25 MG CAP PO PRN (15:27)
[2021-08-17] MEDS: ZIPRASIDONE 20 MG CAP PO PRN (15:28)
[2021-08-17 17:34] LABS: Glucose,Whole Blood 117 mg/dL (75-99)
[2021-08-17 19:34] LABS: Glucose,Whole Blood 147 mg/dL (75-99)
[2021-08-17] MEDS: MELATONIN 5 MG TABLET PO SCH (19:37)
[2021-08-17] MEDS: MIRTAZAPINE 15 MG TAB PO SCH (19:43)
[2021-08-17] MEDS: PANTOPRAZOLE 40 MG TABLET PO SCH (19:43)
[2021-08-17] MEDS: PRAZOSIN 1 MG CAP PO SCH (19:44)
[2021-08-17] MEDS: PRAVASTATIN SODIUM 40 MG TAB PO SCH (19:45)
[2021-08-18 07:14] VITALS: BP 100/63; PULSE 91; TEMP 97.8
[2021-08-18 07:45] LABS: Glucose,Whole Blood 135 mg/dL (75-99)
[2021-08-18] MEDS: NICOTINE 14MG/24HR PATCH TRANSDERM SCH (07:58)
[2021-08-18] MEDS: GABAPENTIN 400 MG CAP PO SCH (08:17)
[2021-08-18] MEDS: ZIPRASIDONE 40 MG CAP PO SCH (08:17)
[2021-08-18] MEDS: cloNIDine HCL 0.1 MG TAB PO SCH (08:17)
[2021-08-18] MEDS: ASPIRIN 81 MG PO SCH (08:17)
[2021-08-18] MEDS: metFORMIN 500 MG TAB PO SCH (08:17)
[2021-08-18] MEDS: FENOFIBRATE 160 MG TAB PO SCH (08:18)
[2021-08-18] MEDS: carvediloL 12.5 MG TAB PO SCH (08:18)
[2021-08-18] MEDS: clonazePAM 1 MG TAB PO SCH (08:18)
[2021-08-18] MEDS: busPIRone HCl 5 MG TAB PO SCH (08:18)
[2021-08-18] MEDS: glipiZIDE 10 MG TAB PO SCH (08:19)
[2021-08-18] MEDS: NALTREXONE HCL 50 MG TAB PO SCH (08:19)
[2021-08-18] MEDS: MULTIVITAMINS, THERA 1 EACH TAB PO SCH (08:20)
--- NOTE | 2021-08-18 11:19 | P.DS ---
Providers Date of admission: 08/12/21 00:53 Expected date of discharge: 08/18/21 Attending physician: Stephen Mcknight MD Consults: 08/12/21 01:16 Consult Physician Routine Consulting Provider: Sourav Sloan Consult Reason/Comments: history and physical/medical management Do you want consulting provider notified?: Yes Primary care physician: Marlen Mobley - Discharge Diagnosis(es) (1) Bipolar disorder current episode depressed Status: Acute Priority: High (2) Suicidal ideations Status: Acute Priority: Medium (3) Social anxiety disorder Status: Acute Priority: Medium (4) Inhalant abuse Status: Acute Priority: High (5) Alcohol use disorder, mild, in early remission Status: Acute Priority: Low (6) Nicotine dependence Status: Acute Priority: Low Hospital Course: Admission HPI: Admission note was completed by Dr Mcknight "Andrea is a 56-year-old male admitted to the psychiatric unit voluntarily with complaints of depression, suicidal ideation and relapse to inhalation of air duster. I reviewed the medical record and interviewed the patient. He is known to the psychiatric unit from prior admissions. We last discharged from in June 2020 with the diagnoses of major depressive disorder, anxiety disorder, inhalant abuse and nicotine dependence. He stated that he was doing well until approximately one month prior to admission. He has been living in one of the three-quarter houses operated by [facility], meeting with his fire inspector that [facility] weekly and complying with medications prescribed by this [facility] psychiatrist. The change in his mental health status began when [facility] [employer] reshuffled clients in the three-quarter houses. He complained that he moved into a home with 3 other men and [employer] did not have council on aging director. The other residents of the home were irresponsible and did not contribute to the day-to-day upkeep of the house. He gave several examples that he found distressing. 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 He complained to [employer] management to no avail. He became increasingly frustrated and began neglecting himself. He stated that he stopped taking his medications regularly. The week of admission he relapsed to inhalation of air duster's. He stated he became so distressed they went to a local pharmacy and bought a can of air duster. After insulating the solvent he experiences visual hallucinations and began having thoughts of suicide. He expressed feelings of hopelessness and helplessness. He became distressed when he began having thoughts of overdosing on his prescription medications. He spoke to one of the managers of his request who recommended that he go to the . He presented to the initially with the complaint that he had an argument with his roommate. The EPS note indicates that he denied suicidal or homicidal ideations. He returned to the later the same day complaining of suicidal thoughts and expressed an interest in inpatient drug rehabilitation. He told the EPS nurse that he has not been taking his prescribed psychiatric medications for approximately 1-2 weeks. He reported suicidal thoughts with a plan of hanging or overdose and that he "would not be safe to be discharged and wants to be ." He denied the use of other drugs such as alcohol, cocaine, methamphetamine, or opioid pain medications, marijuana or heroin. He described continued anxiety in social situations. He denied symptoms suggestive of obsessions or compulsions. He described visual hallucinations and paranoia when he was abusing inhalants." Hospital course: Upon admission to the unit patient was directable and agreeable to commence treatment and signed adult voluntary form. Patient got along well with other patients on the unit and followed unit protocol. Patient was compliant with the medications and denied any side effects throughout hospital course. Patient was started on his home dose of Klonopin which was decreased down to 1 mg twice a day for anxiety, melatonin 10 mg daily at bedtime for insomnia, BuSpar 15 mg twice a day for anxiety, she is on 40 mg twice a day, naltrexone 50 mg by mouth daily for cravings, prazosin 5 mg daily at bedtime for nightmares, Remeron 15 mg daily at bedtime for insomnia/mood. Patient spoke of his stressors and engaged in therapy both group and individual. Patient was also seen by medical team for history and physical exam. Throughout the course of the hospitalization patient gradually improved with regards to mood, anxiety, sleep and became more future oriented with improved insight and judgment. On the day of discharge patient denied any suicidal or homicidal ideations intent or plan denied any auditory or visual hallucinations. Patient endorsed wanting to live for his sobriety and his future. The patient denied any access to guns or weapons. Patient denied any paranoia and did not endorse any delusions. Patient does have a significant history of substance abuse and was counseled on abstaining from all substances including alcohol and marijuana. Patient made the call to the access line and got a intake appointment for [facility] on day of discharge and will be transferred directly to [facility] from the hospital. Patient was also counseled on the medications and need for regular compliance and was encouraged to follow- up with their outpatient appointment for mental health and also for primary care. Mental status exam: General Appearance: Patient appears to be shaved head, stated age is alert, pleasant, and cooperative. Patient is in no acute distress and has improved hygiene and grooming Behavior: Patient is calmly seated without any agitated behavior. Speech: Patient's speech is fluent and nonpressured. Mood/Affect: Patient reports their mood is "better", affect is congruent and euthymic. Suicidality/Homicidality: Patient denies having any suicidal or homicidal ideation intent or plan. Perceptions: Patient denies any auditory or visual hallucinations. Though content/process: There is no evidence of any delusional thought content and thought process is linear and goal-directed. more future oriented Memory and concentration: AOX3, grossly intact for the purposes of this session. Can spell "WORLD" backwards correctly. Judgment and insight: chronically poor, however has improved with guarded prognosis Impression: Bipolar disorder, current episode depressed Suicidal ideations Social anxiety disorder Inhalant abuse Alcohol use disorder in remission Nicotine dependence Plan: -Continue with discharge today as patient has improved and stabilized psychiatrically and is not currently an imminent threat to himself and/or others. Patient will remain at chronically elevated risk for harm to self and/or others due to his impulsivity and substance abuse. -Continue medications: Klonopin 1 mg twice a day for anxiety which can continue to be evaluated by his outpatient doctor to have this gradually tapered down, melatonin 10 mg daily at bedtime for sleep, BuSpar 15 mg twice a day for anxiety, Geodon 40 mg twice a day, naltrexone by mouth 50 mg daily for cravings, prazosin 5 mg daily at bedtime for nightmares, Remeron 15 mg daily at bedtime for insomnia/mood. -Patient was counseled on the need for medication compliance and appropriate follow-up at mental health and also primary care for medical issues. Patient verbalized understanding and agreed. -Social work to help arrange patient's discharge today to [facility] and he will be transferred directly there from the hospital. Social work also to arrange for patients follow up appointments with [facility] for psychiatric care along with follow up with primary care provider. -Patient counseled on abstaining from recreational drugs and marijuana and alcohol. Was informed/educated on the adverse effects on their physical and mental health. Patient verbally agreed and understood. -Patient was instructed to return to the hospital or seek immediate medical care if their psychiatric or medical symptoms do worsen or reoccur. Allergies Allergy/AdvReac Type Severity Reaction Status Date / Time thimerosal Allergy Severe Rash/Hives/throat Verified 08/11/21 19:27 swelling neomycin Allergy Rash/Hives Verified 08/11/21 19:27 Laboratory Results WBC 7.8 k/uL (3.8-10.6) 08/13/21 10:13 RBC 4.39 m/uL (4.30-5.90) 08/13/21 10:13 Hgb 13.1 gm/dL (13.0-17.5) 08/13/21 10:13 Hct 41.6 % (39.0-53.0) 08/13/21 10:13 MCV 94.7 fL (80.0-100.0) 08/13/21 10:13 MCH 29.9 pg (25.0-35.0) 08/13/21 10:13 MCHC 31.5 g/dL (31.0-37.0) 08/13/21 10:13 RDW 14.2 % (11.5-15.5) 08/13/21 10:13 Plt Count 284 k/uL (150-450) 08/13/21 10:13 MPV 7.4 08/13/21 10:13 Neutrophils % 54 % 08/13/21 10:13 Lymphocytes % 33 % 08/13/21 10:13 Monocytes % 4 % 08/13/21 10:13 Eosinophils % 4 % 08/13/21 10:13 Basophils % 1 % 08/13/21 10:13 Neutrophils # 4.2 k/uL (1.3-7.7) 08/13/21 10:13 Lymphocytes # 2.6 k/uL (1.0-4.8) 08/13/21 10:13 Monocytes # 0.3 k/uL (0-1.0) 08/13/21 10:13 Eosinophils # 0.3 k/uL (0-0.7) 08/13/21 10:13 Basophils # 0.1 k/uL (0-0.2) 08/13/21 10:13 Sodium 137 mmol/L (137-145) 08/13/21 10:13 Potassium 4.7 mmol/L (3.5-5.1) 08/13/21 10:13 Chloride 107 mmol/L (98-107) 08/13/21 10:13 Carbon Dioxide 21 mmol/L (22-30) L 08/13/21 10:13 Anion Gap 9 mmol/L 08/13/21 10:13 BUN 30 mg/dL (9-20) H 08/13/21 10:13 Creatinine 1.46 mg/dL (0.66-1.25) H 08/13/21 10:13 Est GFR (CKD-EPI)AfAm 61 (>60 ml/min/1.73 sqM) 08/13/21 10:13 Est GFR (CKD-EPI)NonAf 53 (>60 ml/min/1.73 sqM) 08/13/21 10:13 Glucose 201 mg/dL (74-99) H 08/13/21 10:13 POC Glucose (mg/dL) 135 mg/dL (75-99) H 08/18/21 07:44 POC Glu Emts Radha Espinoza 08/18/21 07:44 Calcium 9.1 mg/dL (8.4-10.2) 08/13/21 10:13 Total Bilirubin 0.5 mg/dL (0.2-1.3) 08/13/21 10:13 AST 26 U/L (17-59) 08/13/21 10:13 ALT 22 U/L (4-49) 08/13/21 10:13 Alkaline Phosphatase 42 U/L (38-126) 08/13/21 10:13 Total Protein 7.6 g/dL (6.3-8.2) 08/13/21 10:13 Albumin 4.5 g/dL (3.5-5.0) 08/13/21 10:13 Triglycerides 538.00 mg/dL (0.00-149.00) H 08/13/21 10:13 Cholesterol 235.00 mg/dL (0.00-200.00) H 08/13/21 10:13 LDL Cholesterol Direct 126.00 mg/dL (0.00-129.00) 08/13/21 10:13 LDL Cholesterol, Calc mg/dL (0.0-131.0) 08/13/21 10:13 VLDL Cholesterol, Calc mg/dL (5.00-40.00) 08/13/21 10:13 HDL Cholesterol 38.10 mg/dL (40.00-60.00) L 08/13/21 10:13 Cholesterol/HDL Ratio 6.17 Ratio 08/13/21 10:13 TSH 0.787 mIU/L (0.465-4.680) 08/13/21 10:13 Urine Color Light Yellow 08/15/21 09:42 Urine Appearance Clear (Clear) 08/15/21 09:42 Urine pH 5.0 (5.0-8.0) 08/15/21 09:42 Ur Specific [place] 1.009 (1.001-1.035) 08/15/21 09:42 Urine Protein Negative (Negative) 08/15/21 09:42 Urine Glucose (UA) 3+ (Negative) H 08/15/21 09:42 Urine Ketones Negative (Negative) 08/15/21 09:42 Urine Blood Negative (Negative) 08/15/21 09:42 Urine Nitrite Negative (Negative) 08/15/21 09:42 Urine Bilirubin Negative (Negative) 08/15/21 09:42 Urine Urobilinogen <2.0 mg/dL (<2.0) 08/15/21 09:42 Ur Leukocyte Esterase Negative (Negative) 08/15/21 09:42 Urine Opiates Screen Not Detected (NotDetected) 08/11/21 18:32 Ur Oxycodone Screen Not Detected (NotDetected) 08/11/21 18:32 Urine Methadone Screen Not Detected (NotDetected) 08/11/21 18:32 Ur Propoxyphene Screen Not Detected (NotDetected) 08/11/21 18:32 Ur Barbiturates Screen Not Detected (NotDetected) 08/11/21 18:32 U Tricyclic Antidepress Detected (NotDetected) H 08/11/21 18:32 Ur Phencyclidine Scrn Not Detected (NotDetected) 08/11/21 18:32 Ur Amphetamines Screen Not Detected (NotDetected) 08/11/21 18:32 U Methamphetamines Scrn Not Detected (NotDetected) 08/11/21 18:32 U Benzodiazepines Scrn Detected (NotDetected) H 08/11/21 18:32 Urine Cocaine Screen Not Detected (NotDetected) 08/11/21 18:32 U Marijuana (THC) Screen Not Detected (NotDetected) 08/11/21 18:32 Coronavirus (PCR) Not Detected (Not Detectd) 08/11/21 22:57 Vital Signs Temp 97.8 F 08/18/21 06:43 Pulse 91 08/18/21 06:43 Resp 16 08/18/21 06:43 BP 100/63 08/18/21 06:43 Pulse Ox 95 08/17/21 06:47 Patient Condition at Discharge: Stable Plan - Discharge Summary New Discharge Prescriptions: New Nicotine 14Mg/24Hr Patch [Habitrol] 1 patch TRANSDERM DAILY 14 Days patch Multivitamins, Thera [Multivitamin (formulary)] 1 each PO DAILY 30 Days tab Mirtazapine [Remeron] 15 mg PO HS 30 Days tab Calcium Carbonate [Tums] 500 mg PO QID PRN 30 Days PRN Reason: Heartburn Acetaminophen Tab [Tylenol] 650 mg PO Q4HR PRN tab PRN Reason: Pain/Discomfort hydrOXYzine pamoate [Vistaril] 50 mg PO DAILY PRN 14 Days cap PRN Reason: Agitation Or Acute Anxiety clonazePAM [KlonoPIN] 1 mg PO BID PRN 14 Days tab PRN Reason: Anxiety Melatonin 10 mg PO HS 30 Days tablet Continue Turmeric(Unknown) 1 tab PO DAILY Vitamin D3(Unknown) 1 tab PO DAILY busPIRone HCL 15 mg PO BID 30 Days tab carvediloL [Coreg*] 12.5 mg PO BID 30 Days tab Aspirin EC [Ecotrin Low Dose] 81 mg PO DAILY 30 Days tab glipiZIDE [Glucotrol] 20 mg PO BID 30 Days tab Ferrous Sulfate [Iron (65 MG Elemental)] 325 mg PO DAILY 30 Days tab Pravastatin Sodium [Pravachol] 40 mg PO HS 30 Days tab Vitamin B Complex 1 cap PO DAILY 30 Days cap Fluticasone Nasal Fabens [Flonase Nasal Fabens] 2 spr EA NOSTRIL DAILY PRN PRN Reason: Allergy Symptoms Fish Oil(Unknown) 1 tab PO DAILY Magnesium(Unknown) 1 tab PO DAILY cloNIDine HCL [Catapres] 0.1 mg PO BID 30 Days tab Gabapentin 800 mg PO TID 14 Days tab Ziprasidone [Geodon] 40 mg PO BID 30 Days cap metFORMIN HCL [Glucophage] 1,000 mg PO BID 30 Days #60 tab Fenofibrate [Lofibra] 160 mg PO DAILY 30 Days tab Prazosin [Minipress] 5 mg PO HS 30 Days cap Pantoprazole [Protonix] 40 mg PO HS 30 Days tab Naltrexone HCl [Revia] 50 mg PO DAILY 30 Days tab Discontinued Multivit-Min/Folic/Vit K/Lycop [Men's Multivitamin Tablet] 1 tab PO DAILY Calcium/Magnesium/Zinc [Evpurgi-Nkqftnixl-Akne Tablet] 1 tab PO DAILY clonazePAM [KlonoPIN] 2 mg PO HS Melatonin 5 mg PO HS PRN PRN Reason: Insomnia hydrOXYzine pamoate [Vistaril] 50 mg PO DAILY PRN PRN Reason: Anxiety Sennosides [Senokot] 8.6 mg PO HS PRN PRN Reason: Constipation clonazePAM [KlonoPIN] 1 mg PO DAILY Discharge Medication List Fluticasone Nasal Fabens [Flonase Nasal Fabens] 2 spr EA NOSTRIL DAILY PRN 08/10/21 [History] Fish Oil(Unknown) 1 tab PO DAILY 08/11/21 [History] Magnesium(Unknown) 1 tab PO DAILY 08/11/21 [History] Turmeric(Unknown) 1 tab PO DAILY 08/11/21 [History] Vitamin D3(Unknown) 1 tab PO DAILY 08/11/21 [History] Acetaminophen Tab [Tylenol] 650 mg PO Q4HR PRN tab 08/17/21 [Rx] Aspirin EC [Ecotrin Low Dose] 81 mg PO DAILY 30 Days tab 08/17/21 [Rx] Calcium Carbonate [Tums] 500 mg PO QID PRN 30 Days 08/17/21 [Rx] Fenofibrate [Lofibra] 160 mg PO DAILY 30 Days tab 08/17/21 [Rx] Ferrous Sulfate [Iron (65 MG Elemental)] 325 mg PO DAILY 30 Days tab 08/17/21 [Rx] Gabapentin 800 mg PO TID 14 Days tab 08/17/21 [Rx] Melatonin 10 mg PO HS 30 Days tablet 08/17/21 [Rx] Mirtazapine [Remeron] 15 mg PO HS 30 Days tab 08/17/21 [Rx] Multivitamins, Thera [Multivitamin (formulary)] 1 each PO DAILY 30 Days tab 08/17/21 [Rx] Naltrexone HCl [Revia] 50 mg PO DAILY 30 Days tab 08/17/21 [Rx] Nicotine 14Mg/24Hr Patch [Habitrol] 1 patch TRANSDERM DAILY 14 Days patch 08/17/21 [Rx] Pantoprazole [Protonix] 40 mg PO HS 30 Days tab 08/17/21 [Rx] Pravastatin Sodium [Pravachol] 40 mg PO HS 30 Days tab 08/17/21 [Rx] Prazosin [Minipress] 5 mg PO HS 30 Days cap 08/17/21 [Rx] Vitamin B Complex 1 cap PO DAILY 30 Days cap 08/17/21 [Rx] Ziprasidone [Geodon] 40 mg PO BID 30 Days cap 08/17/21 [Rx] busPIRone HCL 15 mg PO BID 30 Days tab 08/17/21 [Rx] carvediloL [Coreg*] 12.5 mg PO BID 30 Days tab 08/17/21 [Rx] cloNIDine HCL [Catapres] 0.1 mg PO BID 30 Days tab 08/17/21 [Rx] clonazePAM [KlonoPIN] 1 mg PO BID PRN 14 Days tab 08/17/21 [Rx] glipiZIDE [Glucotrol] 20 mg PO BID 30 Days tab 08/17/21 [Rx] hydrOXYzine pamoate [Vistaril] 50 mg PO DAILY PRN 14 Days cap 08/17/21 [Rx] metFORMIN HCL [Glucophage] 1,000 mg PO BID 30 Days #60 tab 08/17/21 [Rx] Follow up Appointment(s)/Referral(s): [facility], [facility] [Other] - 08/18/21 11:00 am Marlen Mobley MD [Primary Care Provider] - 1-2 days Patient Instructions/Handouts: How to Stop Smoking (DC), Depression (DC) Activity/Diet/Wound Care/Special Instructions: Activity and diet as tolerated. Avoid the use of street drugs and alcohol. Take all medications as prescribed. When you are in need of refills on your medications please contact your medical provider and/or outpatient psychiatrist to have this done. Please go to scheduled outpatient appointment for aftercare treatment. If symptoms return or become worse, call the crisis line at and/or go to the nearest emergency room for evaluation Discharge Disposition: OTHER INSTITUTION NOT DEFINED
== END 2021-08-18 09:55 | DRG 885 ==
LOC: EC 16:45 → 3MHU 08-12 00:53
PROVIDERS: ADMIT Psychiatry & Neurology Psychiatry; ATTEND Psychiatry & Neurology Psychiatry
DX: F31.30 Bipolar disorder, current episode depressed, mild or moderate severity, unspecified (principal); R45.851 Suicidal ideations; F18.10 Inhalant abuse, uncomplicated; F25.9 Schizoaffective disorder, unspecified; F40.10 Social phobia, unspecified; D63.1 Anemia in chronic kidney disease; I12.9 Hypertensive chronic kidney disease with stage 1 through stage 4 chronic kidney disease, or unspecified chronic kidney disease; E11.22 Type 2 diabetes mellitus with diabetic chronic kidney disease; G47.00 Insomnia, unspecified; E11.40 Type 2 diabetes mellitus with diabetic neuropathy, unspecified; Z79.84 Long term (current) use of oral hypoglycemic drugs; F17.210 Nicotine dependence, cigarettes, uncomplicated; N18.9 Chronic kidney disease, unspecified; F10.11 Alcohol abuse, in remission; E78.5 Hyperlipidemia, unspecified; Z79.899 Other long term (current) drug therapy; Z79.82 Long term (current) use of aspirin; Z91.14 Patient's other noncompliance with medication regimen; Z96.643 Presence of artificial hip joint, bilateral; Z98.42 Cataract extraction status, left eye; Z98.41 Cataract extraction status, right eye; Z81.8 Family history of other mental and behavioral disorders; Z20.822 Contact with and (suspected) exposure to COVID-19; Z71.89 Other specified counseling
CPT/HCPCS: 80053; 80061; 80306; 81003; 82075; 83721; 84443; 85025; 87635; 93005; 99285

== ENCOUNTER → 2021-10-06 | Outpatient (CLI) | payer MEDICARE, OTHER ==
[2021-10-06 10:37] LABS: Basophils % (A) 1.2 %; Eosinophils # (A) 0.54 X 10*3/uL (0.04-0.35); Eosinophils % (A) 6.4 %; HCT 39.7 % (39.6-50.0); HGB 12.8 g/dL (13.0-17.0); Immature Grans, Automated 0.2 %; Lymphocytes # (A) 2.56 X 10*3/uL (0.90-5.00); Lymphocytes % (A) 30.4 %; MCH 29.4 pg (27.0-32.0); MCHC 32.2 g/dL (32.0-37.0); MCV 91.3 fL (80.0-97.0); Mean Platelet Volume 10.2 fL (9.5-12.2); Monocytes # (A) 0.66 X 10*3/uL (0.20-1.00); Monocytes % (A) 7.8 %; NRBC Per 100 WBC 0 /100 WBCS (0.0-0.0); Neutrophils # (A) 4.53 X 10*3/uL (1.80-7.70); Platelet Count 265 X 10*3/uL (140-440); RBC 4.35 X 10*6/uL (4.40-5.60); RDW 13.6 % (11.5-14.5); WBC 8.41 X 10*3/uL (4.50-10.00)
[2021-10-06 11:10] LABS: % Iron Saturation 17.68 (15.00-50.00); ALT 24 U/L (10-49); AST 19 U/L (14-35); Albumin 4.6 g/dL (3.8-4.9); Albumin/Globulin Ratio 1.59 (1.60-3.17); Alkaline Phosphatase 68 U/L (41-126); BUN/Creat Ratio 17.67 Ratio (12.00-20.00); Blood Urea Nitrogen 26.5 mg/dL (9.0-27.0); Calcium 9.8 mg/dL (8.7-10.3); Carbon Dioxide 22.7 mmol/L (20.0-27.5); Chloride 101 mmol/L (96-109); Chol/HDL Ratio 5.05 Ratio; Globulin 2.9 g/dL (1.6-3.3); Glucose 176 mg/dL (70-110); Iron 80 ug/dL (65-175); LDL Cholesterol,Calculated 100.2 mg/dL (0.0-131.0); Non-African American GFR(CKD) 50.9 (60.0-200.0); Potassium 4.6 mmol/L (3.5-5.5); Sodium 139 mmol/L (135-145); Total Bilirubin <0.15 mg/dL (0.30-1.20); Total Iron Binding Capacity 454 ug/dL (228-460); Total Protein 7.5 g/dL (6.2-8.2)
== END | disposition home or self-care (01) ==
LOC: LABWHC1 07:06
PROVIDERS: ATTEND Nurse Practitioner Family
DX: I10 Essential (primary) hypertension (principal); E11.9 Type 2 diabetes mellitus without complications; E78.5 Hyperlipidemia, unspecified; D50.9 Iron deficiency anemia, unspecified; E66.3 Overweight
CPT/HCPCS: 36415; 80053; 80061; 82306; 82607; 82746; 83036; 83540; 83550; 85025

== ENCOUNTER 2021-10-07 08:07 | Observation (INO) | payer MEDICARE, OTHER ==
[2021-10-07] MEDS ORDERED: NITROGLYCERIN OINT 1 INCH/GM PACKET TOPICAL STA (08:26)
[2021-10-07] MEDS ORDERED: ASPIRIN 81 MG PO STA (08:26)
[2021-10-07] MEDS ORDERED: LORazepam 2 MG/ML INJ IV STA (08:26)
--- NOTE | 2021-10-07 08:57 | ED ---
General Adult HPI - General Chief complaint: Chest Pain Stated complaint: hypertension Time Seen by Provider: 10/07/21 08:10 Source: patient, EMS, RN notes reviewed, old records reviewed Mode of arrival: EMS Limitations: no limitations - History of Present Illness Initial comments: This is a 56-year-old male who presents emergency Department with a past medical history significant for smoking diabetes hypertension high cholesterol and family history of heart disease. Patient states he woke up this morning with this chest pain and high blood pressure. Patient states there is no shortness of breath however his blood pressure home he believes is 156/127. Patient states she's had no diaphoretic episode. Patient states the chest pain continues. Patient denies any diaphoretic episodes. Patient denies any abdominal pain patient denies nausea vomiting diarrhea. Patient denies a headache patient denies numbness weakness. - Related Data Home Medications Medication Instructions Recorded Confirmed Multivitamins, Thera [Multivitamin 1 tab PO DAILY 10/07/21 10/07/21 (formulary)] cloNIDine HCL [Catapres] 0.1 mg PO HS 10/07/21 10/07/21 hydrOXYzine pamoate [Vistaril] 50 mg PO TID PRN 10/07/21 10/07/21 Previous Rx's Medication Instructions Recorded Aspirin EC [Ecotrin Low Dose] 81 mg PO DAILY 30 Days tab 08/17/21 Calcium Carbonate [Tums] 500 mg PO QID PRN 30 Days 08/17/21 Fenofibrate [Lofibra] 160 mg PO DAILY 30 Days tab 08/17/21 Ferrous Sulfate [Iron (65 MG 325 mg PO DAILY 30 Days tab 08/17/21 Elemental)] Gabapentin 800 mg PO TID 14 Days tab 08/17/21 Melatonin 10 mg PO HS 30 Days tablet 08/17/21 Mirtazapine [Remeron] 15 mg PO HS 30 Days tab 08/17/21 Naltrexone HCl [Revia] 50 mg PO DAILY 30 Days tab 08/17/21 Pantoprazole [Protonix] 40 mg PO HS 30 Days tab 08/17/21 Pravastatin Sodium [Pravachol] 40 mg PO HS 30 Days tab 08/17/21 Prazosin [Minipress] 5 mg PO HS 30 Days cap 08/17/21 Vitamin B Complex 1 cap PO DAILY 30 Days cap 08/17/21 Ziprasidone [Geodon] 40 mg PO BID 30 Days cap 08/17/21 busPIRone HCL 15 mg PO BID 30 Days tab 08/17/21 carvediloL [Coreg*] 12.5 mg PO BID 30 Days tab 08/17/21 clonazePAM [KlonoPIN] 1 mg PO BID PRN 14 Days tab 08/17/21 glipiZIDE [Glucotrol] 20 mg PO BID 30 Days tab 08/17/21 metFORMIN HCL [Glucophage] 1,000 mg PO BID 30 Days #60 tab 08/17/21 Allergies Allergy/AdvReac Type Severity Reaction Status Date / Time thimerosal Allergy Severe Rash/Hives/throat Verified 10/07/21 11:31 swelling neomycin Allergy Rash/Hives Verified 10/07/21 11:31 Review of Systems ROS Statement: Those systems with pertinent positive or pertinent negative responses have been documented in the HPI. ROS Other: All systems not noted in ROS Statement are negative. 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, neuropathy, anxiety History of Any Multi-Drug Resistant Organisms: None Reported Past Surgical History: Joint Replacement Additional Past Surgical History / Comment(s): bilateral cataract removed, Both hips replaced, right heal shattered- screws/plates/ pins, cardiac cath 06/18/20 Past Anesthesia/Blood Transfusion Reactions: No Reported Reaction Past Psychological History: Anxiety, Bipolar, Depression, Schizoaffective Disorder Smoking Status: Current every day smoker Past Alcohol Use History: None Reported Past Drug Use History: None Reported - Past Family History family Additional Family Medical History / Comment(s): anxiety Father Family Medical History: Myocardial Infarction ([place]) Additional Family Medical History / Comment(s): mid 30's Mother Family Medical History: Dementia General Exam - General Exam Comments Initial Comments: GENERAL: Patient is well-developed and well-nourished. Patient is nontoxic and well- hydrated and is in mild distress. ENT: Neck is soft and supple. No significant lymphadenopathy is noted. Oropharynx is clear. Moist mucous membranes. Neck has full range of motion without eliciting any pain. EYES: The sclera were anicteric and conjunctiva were pink and moist. Extraocular movements were intact and pupils were equal round and reactive to light. Eyelids were unremarkable. PULMONARY: Unlabored respirations. Good breath sounds bilaterally. No audible rales rhonchi or wheezing was noted. CARDIOVASCULAR: There is a regular rate and rhythm without any murmurs gallops or rubs. ABDOMEN: Soft and nontender with normal bowel sounds. SKIN: Skin is clear with no lesions or rashes and otherwise unremarkable. NEUROLOGIC: Patient is alert and oriented x3. Cranial nerves II through XII are grossly intact. Motor and sensory are also intact. Normal speech, volume and content. Symmetrical smile. MUSCULOSKELETAL: Normal extremities with adequate strength and full range of motion. No lower extremity swelling or edema. No calf tenderness. LYMPHATICS: No significant lymphadenopathy is noted PSYCHIATRIC: Normal psychiatric evaluation. Limitations: no limitations Course Vital Signs 10/07/21 10/07/21 10/07/21 08:08 09:00 09:30 Temperature 98.6 F Pulse Rate 87 80 80 Respiratory 14 16 Rate Blood Pressure 143/116 130/97 111/79 O2 Sat by Pulse 98 98 99 Oximetry 10/07/21 10/07/21 10/07/21 10:30 13:01 16:46 Temperature Pulse Rate 79 82 90 Respiratory 16 18 16 Rate Blood Pressure 132/85 111/79 129/96 O2 Sat by Pulse 95 98 98 Oximetry 10/07/21 18:36 Temperature 98.1 F Pulse Rate 79 Respiratory 18 Rate Blood Pressure 105/63 O2 Sat by Pulse 95 Oximetry Medical Decision Making - Medical Decision Making EKG shows sinus rhythm at 85 bpm WV interval 150 QRS is 100 QT interval 390 QTC is 431 per patient's EKG shows no ST segment patient depression. Chest x-ray shows no acute abnormality. Patient's blood pressure came down without medications. I started the patient on magnesium sulfate. I spoke with sounds physician's agreed to admit the patient admitted the patient wrote admitting orders I consult cardiology. - Lab Data Result diagrams: 10/07/21 09:02 10/07/21 09:02 Lab Results 10/07/21 10/07/21 10/07/21 Range/Units 09:02 09:02 09:02 WBC 9.4 (3.8-10.6) k/uL RBC 4.04 L (4.30-5.90) m/uL Hgb 12.5 L (13.0-17.5) gm/dL Hct 37.7 L (39.0-53.0) % MCV 93.2 (80.0-100.0) fL MCH 30.9 (25.0-35.0) pg MCHC 33.2 (31.0-37.0) g/dL RDW 13.9 (11.5-15.5) % Plt Count 344 (150-450) k/uL MPV 7.0 Neutrophils % 66 % Lymphocytes % 23 % Monocytes % 4 % Eosinophils % 4 % Basophils % 0 % Neutrophils # 6.2 (1.3-7.7) k/uL Lymphocytes # 2.1 (1.0-4.8) k/uL Monocytes # 0.4 (0-1.0) k/uL Eosinophils # 0.4 (0-0.7) k/uL Basophils # 0.0 (0-0.2) k/uL PT 11.4 (9.0-12.0) sec INR 1.1 (<1.2) APTT 23.2 (22.0-30.0) sec Sodium 138 (137-145) mmol/L Potassium 5.0 (3.5-5.1) mmol/L Chloride 102 (98-107) mmol/L Carbon Dioxide 26 (22-30) mmol/L Anion Gap 10 mmol/L BUN 26 H (9-20) mg/dL Creatinine 1.61 H (0.66-1.25) mg/dL Est GFR (CKD-EPI)AfAm 54 (>60 ml/min/1.73 sqM) Est GFR (CKD-EPI)NonAf 47 (>60 ml/min/1.73 sqM) Glucose 177 H (74-99) mg/dL Calcium 9.5 (8.4-10.2) mg/dL Magnesium 1.4 L (1.6-2.3) mg/dL Total Bilirubin 0.5 (0.2-1.3) mg/dL AST 22 (17-59) U/L ALT 20 (4-49) U/L Alkaline Phosphatase 64 (38-126) U/L Troponin I (0.000-0.034) ng/mL Total Protein 7.2 (6.3-8.2) g/dL Albumin 4.3 (3.5-5.0) g/dL Triglycerides (0.00-149.00) mg/dL Cholesterol (0.00-200.00) mg/dL LDL Cholesterol, Calc (0.0-131.0) mg/dL VLDL Cholesterol, Calc (5.00-40.00) mg/dL HDL Cholesterol (40.00-60.00) mg/dL Cholesterol/HDL Ratio Ratio 10/07/21 10/07/21 Range/Units 09:02 09:02 WBC (3.8-10.6) k/uL RBC (4.30-5.90) m/uL Hgb (13.0-17.5) gm/dL Hct (39.0-53.0) % MCV (80.0-100.0) fL MCH (25.0-35.0) pg MCHC (31.0-37.0) g/dL RDW (11.5-15.5) % Plt Count (150-450) k/uL MPV Neutrophils % % Lymphocytes % % Monocytes % % Eosinophils % % Basophils % % Neutrophils # (1.3-7.7) k/uL Lymphocytes # (1.0-4.8) k/uL Monocytes # (0-1.0) k/uL Eosinophils # (0-0.7) k/uL Basophils # (0-0.2) k/uL PT (9.0-12.0) sec INR (<1.2) APTT (22.0-30.0) sec Sodium (137-145) mmol/L Potassium (3.5-5.1) mmol/L Chloride (98-107) mmol/L Carbon Dioxide (22-30) mmol/L Anion Gap mmol/L BUN (9-20) mg/dL Creatinine (0.66-1.25) mg/dL Est GFR (CKD-EPI)AfAm (>60 ml/min/1.73 sqM) Est GFR (CKD-EPI)NonAf (>60 ml/min/1.73 sqM) Glucose (74-99) mg/dL Calcium (8.4-10.2) mg/dL Magnesium (1.6-2.3) mg/dL Total Bilirubin (0.2-1.3) mg/dL AST (17-59) U/L ALT (4-49) U/L Alkaline Phosphatase (38-126) U/L Troponin I <0.012 (0.000-0.034) ng/mL Total Protein (6.3-8.2) g/dL Albumin (3.5-5.0) g/dL Triglycerides 317.00 H (0.00-149.00) mg/dL Cholesterol 201.00 H (0.00-200.00) mg/dL LDL Cholesterol, Calc 99.8 (0.0-131.0) mg/dL VLDL Cholesterol, Calc 63.40 H (5.00-40.00) mg/dL HDL Cholesterol 37.80 L (40.00-60.00) mg/dL Cholesterol/HDL Ratio 5.32 Ratio Disposition Clinical Impression: Hypomagnesemia, Hypertensive urgency, Chest pain Disposition: ADMITTED IP TO THIS HOSP Condition: Good Time of Disposition: 11:05
--- NOTE | 2021-10-07 09:24 | XR ---
EXAMINATION TYPE: XR chest 2V DATE OF EXAM: 10/07/2021 COMPARISON: Chest x-ray February 15, 2021 HISTORY: Chest pain and hypertension. TECHNIQUE: Frontal and lateral views of the chest are obtained. FINDINGS: There is no suspicious new focal air space opacity, pleural effusion, or pneumothorax seen . The cardiac silhouette size remains within normal limits. The osseous structures are intact. Ove rlying EKG leads are redemonstrated. IMPRESSION: No acute process. No significant change from prior.
[2021-10-07 09:34] LABS: Basophils % (A) 0 %; Eosinophils # (A) 0.4 k/uL (0-0.7); Eosinophils % (A) 4 %; HCT 37.7 % (39.0-53.0); HGB 12.5 gm/dL (13.0-17.5); Lymphocytes # (A) 2.1 k/uL (1.0-4.8); Lymphocytes % (A) 23 %; MCH 30.9 pg (25.0-35.0); MCHC 33.2 g/dL (31.0-37.0); MCV 93.2 fL (80.0-100.0); Monocytes # (A) 0.4 k/uL (0-1.0); Monocytes % (A) 4 %; Neutrophils # (A) 6.2 k/uL (1.3-7.7); Neutrophils % (A) 66 %; Platelet Count 344 k/uL (150-450); RBC 4.04 m/uL (4.30-5.90); RDW 13.9 % (11.5-15.5); WBC 9.4 k/uL (3.8-10.6)
[2021-10-07 09:44] LABS: Albumin 4.3 g/dL (3.5-5.0); Calcium 9.5 mg/dL (8.4-10.2); Magnesium 1.4 mg/dL (1.6-2.3); Total Bilirubin 0.5 mg/dL (0.2-1.3); Total Protein 7.2 g/dL (6.3-8.2)
[2021-10-07 09:45] LABS: INR 1.1 (<1.2); Partial Thromboplastin Time 23.2 sec (22.0-30.0); Prothrombin Time 11.4 sec (9.0-12.0)
[2021-10-07] MEDS ORDERED: NITROGLYCERIN SL TABS 0.4 MG TAB SUBLINGUAL PRN (12:03)
[2021-10-07] MEDS: MAGNESIUM SULFATE-D5W PMX 1 GM in DEXTROSE/WATER 1 100ML.BAG IVPB SCH ×2 (13:00→13:57)
[2021-10-07] MEDS ORDERED: CALCIUM CARBONATE 500 MG CHEWABLE PO PRN (13:36)
[2021-10-07] MEDS ORDERED: hydrOXYzine pamoate 25 MG CAP PO PRN (13:36)
[2021-10-07] MEDS: clonazePAM 1 MG TAB PO PRN (14:42)
[2021-10-07] MEDS: GABAPENTIN 400 MG CAP PO SCH ×2 (16:42→20:17)
[2021-10-07] MEDS: carvediloL 12.5 MG TAB PO SCH (16:42)
[2021-10-07] MEDS: NITROGLYCERIN OINT 1 INCH/GM PACKET TOPICAL SCH ×2 (16:45→23:18)
--- NOTE | 2021-10-07 17:07 | P.HPIM ---
History of Present Illness H&P Date: 10/07/21 Chief Complaint: Chest pain 56-year-old man with medical history of hypertension, hyperlipidemia, mood disorder presented with chest pain. Patient says that starting this morning, he started to develop extremely severe cramping/crushing chest pain in the center of his chest. This prompted his of evaluation in the emergency room. He says his pain is not related to exercise, position, by mouth intake. He has never had any heart attacks or strokes in the past. He denies family history of heart disease. He is an active smoker. He also vapes. Denies fevers, chills, nausea, vomiting, palpitations, syncope, presyncope, cough, dyspnea, abdominal pain, constipation, diarrhea, dysuria, dyschezia, numbness/weakness of extremities. In the emergency room, patient was afebrile, 130/97, heart rate 80, 98% on room air. CBC is unremarkable. Chemistries are remarkable for BUNs/creatinine of 26/1.6. LFTs are unremarkable. Initial troponin was less than 0.012, repeat troponin was less than 0.012. Chest x-rays no acute process. EKG done shows no sinus rhythm without ischemic changes. All Systems reviewed and pertinent positives and negatives noted in HPI, all other symptoms are negative Gen: awake, alert HEENT: normocephalic, atraumatic, good hearing acuity, moist mucous membranes Resp: good air exchange, breathing comfortably with no accessory muscle use, clear to auscultation bilaterally CVS: good distal perfusion x 4, regular rate and rhythm without murmurs GI: soft, NTTP, ND : no SPT, no CVAT, camarena catheter not present MSK: no pitting edema, no clubbing Neuro: non-focal, moving all extremities Psych: cooperative, euthymic mood Labs and imaging reviewed as above Assessment/plan: Chest pain, atypical -Admit to observation, telemetry -Trend troponins -Cardiology consult -EKG/nitro when necessary -Aspirin, statin -Echo Hypertension Hyperlipidemia Mood disorder -Home medications reviewed and reconciled Patient is full code DVT prophylaxis with heparin 3 times a day 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, neuropathy, anxiety History of Any Multi-Drug Resistant Organisms: None Reported Past Surgical History: Joint Replacement Additional Past Surgical History / Comment(s): bilateral cataract removed, Both hips replaced, right heal shattered- screws/plates/ pins, cardiac cath 06/18/20 Past Anesthesia/Blood Transfusion Reactions: No Reported Reaction Past Psychological History: Anxiety, Bipolar, Depression, Schizoaffective Disorder Smoking Status: Current every day smoker Past Alcohol Use History: None Reported Past Drug Use History: None Reported - Past Family History family Additional Family Medical History / Comment(s): anxiety Medications and Allergies Home Medications Medication Instructions Recorded Confirmed Type Aspirin EC [Ecotrin Low Dose] 81 mg PO DAILY 30 Days tab 08/17/21 10/07/21 Rx Calcium Carbonate [Tums] 500 mg PO QID PRN 30 Days 08/17/21 10/07/21 Rx Fenofibrate [Lofibra] 160 mg PO DAILY 30 Days tab 08/17/21 10/07/21 Rx Ferrous Sulfate [Iron (65 MG 325 mg PO DAILY 30 Days tab 08/17/21 10/07/21 Rx Elemental)] Gabapentin 800 mg PO TID 14 Days tab 08/17/21 10/07/21 Rx Melatonin 10 mg PO HS 30 Days tablet 08/17/21 10/07/21 Rx Mirtazapine [Remeron] 15 mg PO HS 30 Days tab 08/17/21 10/07/21 Rx Naltrexone HCl [Revia] 50 mg PO DAILY 30 Days tab 08/17/21 10/07/21 Rx Pantoprazole [Protonix] 40 mg PO HS 30 Days tab 08/17/21 10/07/21 Rx Pravastatin Sodium [Pravachol] 40 mg PO HS 30 Days tab 08/17/21 10/07/21 Rx Prazosin [Minipress] 5 mg PO HS 30 Days cap 08/17/21 10/07/21 Rx Vitamin B Complex 1 cap PO DAILY 30 Days cap 08/17/21 10/07/21 Rx Ziprasidone [Geodon] 40 mg PO BID 30 Days cap 08/17/21 10/07/21 Rx busPIRone HCL 15 mg PO BID 30 Days tab 08/17/21 10/07/21 Rx carvediloL [Coreg*] 12.5 mg PO BID 30 Days tab 08/17/21 10/07/21 Rx clonazePAM [KlonoPIN] 1 mg PO BID PRN 14 Days tab 08/17/21 10/07/21 Rx glipiZIDE [Glucotrol] 20 mg PO BID 30 Days tab 08/17/21 10/07/21 Rx metFORMIN HCL [Glucophage] 1,000 mg PO BID 30 Days #60 tab 08/17/21 10/07/21 Rx Multivitamins, Thera [Multivitamin 1 tab PO DAILY 10/07/21 10/07/21 History (formulary)] cloNIDine HCL [Catapres] 0.1 mg PO HS 10/07/21 10/07/21 History hydrOXYzine pamoate [Vistaril] 50 mg PO TID PRN 10/07/21 10/07/21 History Allergies Allergy/AdvReac Type Severity Reaction Status Date / Time thimerosal Allergy Severe Rash/Hives/throat Verified 10/07/21 11:31 swelling neomycin Allergy Rash/Hives Verified 10/07/21 11:31 Physical Exam Osteopathic Statement: *. No significant issues noted on an osteopathic structural exam other than those noted in the History and Physical/Consult. Vitals: Vital Signs Temp Pulse Resp BP Pulse Ox 10/07/21 16:46 90 16 129/96 98 10/07/21 13:01 82 18 111/79 98 10/07/21 10:30 79 16 132/85 95 10/07/21 09:30 80 111/79 99 10/07/21 09:00 80 16 130/97 98 10/07/21 08:08 98.6 F 87 14 143/116 98 Intake and Output 10/07/21 10/07/21 10/07/21 06:59 14:59 22:59 Other: Weight 83.915 kg Results CBC & Chem 7: 10/07/21 09:02 10/07/21 09:02 Labs: Abnormal Lab Results - Last 24 Hours (Table) 10/07/21 10/07/21 Range/Units 09:02 09:02 RBC 4.04 L (4.30-5.90) m/uL Hgb 12.5 L (13.0-17.5) gm/dL Hct 37.7 L (39.0-53.0) % BUN 26 H (9-20) mg/dL Creatinine 1.61 H (0.66-1.25) mg/dL Glucose 177 H (74-99) mg/dL Magnesium 1.4 L (1.6-2.3) mg/dL
[2021-10-07] MEDS: busPIRone HCl 5 MG TAB PO SCH (20:17)
[2021-10-07] MEDS: ACETAMINOPHEN TAB 325 MG TAB PO PRN (20:17)
[2021-10-07] MEDS: ZIPRASIDONE 40 MG CAP PO SCH (20:17)
[2021-10-07] MEDS ORDERED: MIRTAZAPINE 15 MG TAB PO SCH (21:00)
[2021-10-07] MEDS ORDERED: PRAVASTATIN SODIUM 40 MG TAB PO SCH (21:00)
[2021-10-07] MEDS ORDERED: PRAZOSIN 1 MG CAP PO SCH (21:00)
[2021-10-07] MEDS ORDERED: MELATONIN 5 MG TABLET PO SCH (21:00)
[2021-10-07] MEDS ORDERED: PANTOPRAZOLE 40 MG TABLET PO SCH (21:00)
[2021-10-07] MEDS ORDERED: cloNIDine HCL 0.1 MG TAB PO SCH (21:00)
[2021-10-07 21:09] LABS: Glucose,Whole Blood 141 mg/dL (75-99)
[2021-10-08] MEDS: HEPARIN SODIUM,PORCINE/PF 5,000 UNIT/0.5 ML SYRINGE SQ SCH ×2 (01:35→11:31)
[2021-10-08] MEDS: carvediloL 12.5 MG TAB PO SCH (06:25)
[2021-10-08] MEDS: NITROGLYCERIN OINT 1 INCH/GM PACKET TOPICAL SCH ×2 (06:25→12:11)
[2021-10-08] MEDS: clonazePAM 1 MG TAB PO PRN ×2 (06:28→09:20)
[2021-10-08 08:10] VITALS: RESP 20
[2021-10-08] MEDS ORDERED: FOLIC ACID-VIT B COMPLEX-VIT C 1 CAP PO SCH (09:00)
[2021-10-08] MEDS ORDERED: ASPIRIN 81 MG PO SCH (09:00)
[2021-10-08] MEDS ORDERED: MULTIVITAMINS, THERA 1 EACH TAB PO SCH (09:00)
[2021-10-08] MEDS ORDERED: FENOFIBRATE 160 MG TAB PO SCH (09:00)
[2021-10-08] MEDS ORDERED: ASPIRIN 325 MG TAB PO SCH (09:00)
[2021-10-08] MEDS ORDERED: NALTREXONE HCL 50 MG TAB PO SCH (09:00)
[2021-10-08] MEDS ORDERED: FERROUS SULFATE 325 MG TAB PO SCH (09:00)
[2021-10-08] MEDS: GABAPENTIN 400 MG CAP PO SCH (09:16)
[2021-10-08] MEDS: busPIRone HCl 5 MG TAB PO SCH (09:16)
[2021-10-08] MEDS: ACETAMINOPHEN TAB 325 MG TAB PO PRN (09:16)
[2021-10-08] MEDS: ZIPRASIDONE 40 MG CAP PO SCH (09:18)
[2021-10-08 09:43] LABS: Chol/HDL Ratio 5.32 Ratio; LDL Cholesterol,Calculated 99.8 mg/dL (0.0-131.0)
[2021-10-08 11:31] VITALS: BP 117/84; PULSE 94; TEMP 97.6
[2021-10-08 11:41] LABS: Glucose,Whole Blood 204 mg/dL (75-99)
--- NOTE | 2021-10-08 13:55 | P.DS ---
Providers Date of admission: 10/07/21 12:04 Expected date of discharge: 10/08/21 Attending physician: Cameron Cross MD Consults: 10/07/21 12:03 Consult Physician Urgent Consulting Provider: [facility] Consult Reason/Comments: Chest pain Do you want consulting provider notified?: Yes Primary care physician: [facility] Course: 56-year-old man with medical history of hypertension, hyperlipidemia, mood disorder presented with chest pain. In the emergency room, patient was afebrile, 130/97, heart rate 80, 98% on room air. CBC is unremarkable. Chemistries are remarkable for BUNs/creatinine of 26/1.6. LFTs are unremarkable. Initial troponin was less than 0.012, repeat troponin was less than 0.012. Chest x-rays no acute process. EKG done shows no sinus rhythm without ischemic changes. Chest pain, atypical -Admitted to observation, telemetry. Trended troponins were negative. Pt treated with ASA, statin. CP resolved on its own, and patient indicated feeling back to baseline. Was discharged with PCP f/u and no changes to medications. -Cardiology consult -EKG/nitro when necessary -Aspirin, statin -Echo Hypertension Hyperlipidemia Mood disorder -Home medications reviewed and reconciled, no changes Gen: awake, alert HEENT: normocephalic, atraumatic, good hearing acuity, moist mucous membranes Resp: good air exchange, breathing comfortably with no accessory muscle use, clear to auscultation bilaterally CVS: good distal perfusion x 4, regular rate and rhythm without murmurs GI: soft, NTTP, ND : no SPT, no CVAT, camarena catheter not present MSK: no pitting edema, no clubbing Neuro: non-focal, moving all extremities Psych: cooperative, euthymic mood Patient Condition at Discharge: Good Plan - Discharge Summary Discharge Rx Participant: No New Discharge Prescriptions: Continue Mirtazapine [Remeron] 15 mg PO HS 30 Days tab Calcium Carbonate [Tums] 500 mg PO QID PRN 30 Days PRN Reason: Heartburn busPIRone HCL 15 mg PO BID 30 Days tab carvediloL [Coreg*] 12.5 mg PO BID 30 Days tab Aspirin EC [Ecotrin Low Dose] 81 mg PO DAILY 30 Days tab glipiZIDE [Glucotrol] 20 mg PO BID 30 Days tab Ferrous Sulfate [Iron (65 MG Elemental)] 325 mg PO DAILY 30 Days tab Pravastatin Sodium [Pravachol] 40 mg PO HS 30 Days tab Vitamin B Complex 1 cap PO DAILY 30 Days cap clonazePAM [KlonoPIN] 1 mg PO BID PRN 14 Days tab PRN Reason: Anxiety Melatonin 10 mg PO HS 30 Days tablet Gabapentin 800 mg PO TID 14 Days tab Ziprasidone [Geodon] 40 mg PO BID 30 Days cap metFORMIN HCL [Glucophage] 1,000 mg PO BID 30 Days #60 tab Fenofibrate [Lofibra] 160 mg PO DAILY 30 Days tab Prazosin [Minipress] 5 mg PO HS 30 Days cap Pantoprazole [Protonix] 40 mg PO HS 30 Days tab Naltrexone HCl [Revia] 50 mg PO DAILY 30 Days tab hydrOXYzine pamoate [Vistaril] 50 mg PO TID PRN PRN Reason: Anxiety cloNIDine HCL [Catapres] 0.1 mg PO HS Multivitamins, Thera [Multivitamin (formulary)] 1 tab PO DAILY Discharge Medication List Aspirin EC [Ecotrin Low Dose] 81 mg PO DAILY 30 Days tab 08/17/21 [Rx] Calcium Carbonate [Tums] 500 mg PO QID PRN 30 Days 08/17/21 [Rx] Fenofibrate [Lofibra] 160 mg PO DAILY 30 Days tab 08/17/21 [Rx] Ferrous Sulfate [Iron (65 MG Elemental)] 325 mg PO DAILY 30 Days tab 08/17/21 [Rx] Gabapentin 800 mg PO TID 14 Days tab 08/17/21 [Rx] Melatonin 10 mg PO HS 30 Days tablet 08/17/21 [Rx] Mirtazapine [Remeron] 15 mg PO HS 30 Days tab 08/17/21 [Rx] Naltrexone HCl [Revia] 50 mg PO DAILY 30 Days tab 08/17/21 [Rx] Pantoprazole [Protonix] 40 mg PO HS 30 Days tab 08/17/21 [Rx] Pravastatin Sodium [Pravachol] 40 mg PO HS 30 Days tab 08/17/21 [Rx] Prazosin [Minipress] 5 mg PO HS 30 Days cap 08/17/21 [Rx] Vitamin B Complex 1 cap PO DAILY 30 Days cap 08/17/21 [Rx] Ziprasidone [Geodon] 40 mg PO BID 30 Days cap 08/17/21 [Rx] busPIRone HCL 15 mg PO BID 30 Days tab 08/17/21 [Rx] carvediloL [Coreg*] 12.5 mg PO BID 30 Days tab 08/17/21 [Rx] clonazePAM [KlonoPIN] 1 mg PO BID PRN 14 Days tab 08/17/21 [Rx] glipiZIDE [Glucotrol] 20 mg PO BID 30 Days tab 08/17/21 [Rx] metFORMIN HCL [Glucophage] 1,000 mg PO BID 30 Days #60 tab 08/17/21 [Rx] Multivitamins, Thera [Multivitamin (formulary)] 1 tab PO DAILY 10/07/21 [History] cloNIDine HCL [Catapres] 0.1 mg PO HS 10/07/21 [History] hydrOXYzine pamoate [Vistaril] 50 mg PO TID PRN 10/07/21 [History] Follow up Appointment(s)/Referral(s): Marlen Mobley MD [Primary Care Provider] - 1-2 days Discharge Disposition: HOME SELF-CARE
--- NOTE | 2021-10-08 14:42 | P.CRDCN ---
History of Present Illness History of present illness: HISTORY OF PRESENTING ILLNESS Patient is a pleasant 56-year-old male with history of hypertension, hyperlipidemia, mood disorder, anxiety, normal coronary arteries by prior heart catheterization 2020 who presents secondary to a crushing chest pain. He states he was having more anxiety at home with some more stressors however nothing out of the ordinary and then started having chest pain and pressure. This resolved after a brief amount of time. He believes is related to high blood pressure is rechecked his blood pressure is up in the 150s over 110s. He states normally however is in the systolic 120 to 130s. He admits to mild dyspnea with this. He has had similar episodes in the past normally related to when he has high blood pressure. Denies any recent changes in medications and is good about taking his medications. Previous heart catheterization from 06/18/2020 showed n ormal coronary arteries. The liver showed troponins normal 3. EKG shows normal sinus rhythm, normal axis, no significant ST-T wave abnormalities. He does have chronic kidney disease with creatinine stable at 1.5. REVIEW OF SYSTEMS At the time of my exam: CONSTITUTIONAL: Denies fever or chills. CARDIOVASCULAR: +chest pain, +shortness of breath, no orthopnea, PND or palpitations. RESPIRATORY: Denies cough. GASTROINTESTINAL: Denies abdominal pain, diarrhea, constipation, nausea or vomiting. MUSCULOSKELETAL: Denies myalgias. NEUROLOGIC: Denies numbness, tingling or weakness. ENDOCRINE: Denies fatigue, weight change, polydipsia or polyurina. GENITOURINARY: Denies burning, hematuria or urgency with micturation. HEMATOLOGIC: Denies history of anemia or bleeding. PHYSICAL EXAMINATION Vital signs reviewed. CONSTITUTIONAL: No apparent distress. HEENT: Head is normocephalic. Pupils are equal, round. Sclerae anicteric. Mucous membranes of the mouth are moist. No JVD. No carotid bruit. CHEST EXAMINATION: Lungs are clear to auscultation. No chest wall tenderness is noted on palpation or with deep breathing. HEART EXAMINATION: Regular rate and rhythm. S1, S2 heard. No murmurs, gallops or rub. ABDOMEN: Soft, nontender. Positive bowel sounds. EXTREMITIES: 2+ peripheral pulses, no lower extremity edema and no calf tenderness. NEUROLOGIC EXAMINATION: Patient is awake, alert and oriented x3. ASSESSMENT 1. Atypical episode of chest pain may be related to hypertensive episode, tropo jose daniels normal 3 with normal heart catheterization in the past 2. Normal coronary arteries by heart catheterization May 2020 3. Hypertension 4. Hyperlipidemia 5. Anxiety PLAN Blood pressures appear better controlled. No further chest pain. Chest pain is atypical and he had normal heart catheterization 1 year ago. Appears stable for discharge home with outpatient follow-up. 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, neuropathy, anxiety History of Any Multi-Drug Resistant Organisms: None Reported Past Surgical History: Joint Replacement Additional Past Surgical History / Comment(s): bilateral cataract removed, Both hips replaced, right heal shattered- screws/plates/ pins, cardiac cath 06/18/20, Rt inguinal hernia repair. Tendons in Rt index finger repaired x2 Past Anesthesia/Blood Transfusion Reactions: No Reported Reaction Past Psychological History: Anxiety, Bipolar, Depression, Schizoaffective Disorder Smoking Status: Current every day smoker Additional Past Alcohol Use History / Comment(s): Pt quit drinking 9 months ago Past Drug Use History: Heroin, Marijuana, Prescription Drug Abuse Additional Drug Use History / Comment(s): huffing-on & off 1 month ago. Other drugs 5 years ago - Past Family History Father Family Medical History: Myocardial Infarction ([place]) Additional Family Medical History / Comment(s): mid 30's Mother Family Medical History: Dementia family Additional Family Medical History / Comment(s): anxiety Medications and Allergies Home Medications Medication Instructions Recorded Confirmed Type Aspirin EC [Ecotrin Low Dose] 81 mg PO DAILY 30 Days tab 08/17/21 10/07/21 Rx Calcium Carbonate [Tums] 500 mg PO QID PRN 30 Days 08/17/21 10/07/21 Rx Fenofibrate [Lofibra] 160 mg PO DAILY 30 Days tab 08/17/21 10/07/21 Rx Ferrous Sulfate [Iron (65 MG 325 mg PO DAILY 30 Days tab 08/17/21 10/07/21 Rx Elemental)] Gabapentin 800 mg PO TID 14 Days tab 08/17/21 10/07/21 Rx Melatonin 10 mg PO HS 30 Days tablet 08/17/21 10/07/21 Rx Mirtazapine [Remeron] 15 mg PO HS 30 Days tab 08/17/21 10/07/21 Rx Naltrexone HCl [Revia] 50 mg PO DAILY 30 Days tab 08/17/21 10/07/21 Rx Pantoprazole [Protonix] 40 mg PO HS 30 Days tab 08/17/21 10/07/21 Rx Pravastatin Sodium [Pravachol] 40 mg PO HS 30 Days tab 08/17/21 10/07/21 Rx Prazosin [Minipress] 5 mg PO HS 30 Days cap 08/17/21 10/07/21 Rx Vitamin B Complex 1 cap PO DAILY 30 Days cap 08/17/21 10/07/21 Rx Ziprasidone [Geodon] 40 mg PO BID 30 Days cap 08/17/21 10/07/21 Rx busPIRone HCL 15 mg PO BID 30 Days tab 08/17/21 10/07/21 Rx carvediloL [Coreg*] 12.5 mg PO BID 30 Days tab 08/17/21 10/07/21 Rx clonazePAM [KlonoPIN] 1 mg PO BID PRN 14 Days tab 08/17/21 10/07/21 Rx glipiZIDE [Glucotrol] 20 mg PO BID 30 Days tab 08/17/21 10/07/21 Rx metFORMIN HCL [Glucophage] 1,000 mg PO BID 30 Days #60 tab 08/17/21 10/07/21 Rx Multivitamins, Thera [Multivitamin 1 tab PO DAILY 10/07/21 10/07/21 History (formulary)] cloNIDine HCL [Catapres] 0.1 mg PO HS 10/07/21 10/07/21 History hydrOXYzine pamoate [Vistaril] 50 mg PO TID PRN 10/07/21 10/07/21 History Allergies Allergy/AdvReac Type Severity Reaction Status Date / Time thimerosal Allergy Severe Rash/Hives/throat Verified 10/07/21 11:31 swelling neomycin Allergy Rash/Hives Verified 10/07/21 11:31 Physical Exam Vitals: Vital Signs Temp Pulse Pulse Resp BP BP Pulse Ox 10/08/21 11:31 97.6 F 94 20 117/84 95 10/08/21 08:00 97.7 F 89 20 109/75 95 10/08/21 04:00 104 H 16 108/78 96 10/08/21 00:00 95 16 99/61 96 10/07/21 20:00 98.5 F 85 18 127/81 94 L 10/07/21 18:36 98.1 F 79 18 105/63 95 10/07/21 16:46 90 16 129/96 98 Intake and Output 10/07/21 10/08/21 10/08/21 22:59 06:59 14:59 Intake Total 485 326 Balance 485 326 Intake: Oral 485 326 Other: Voiding Method Toilet Toilet # Voids 1 1 Weight 83.915 kg Results 10/07/21 09:02 10/07/21 09:02 Cardiac Enzymes 10/07/21 Range/Units 17:44 Troponin I <0.012 (0.000-0.034) ng/mL Lipids 10/07/21 Range/Units 09:02 Triglycerides 317.00 H (0.00-149.00) mg/dL Cholesterol 201.00 H (0.00-200.00) mg/dL HDL Cholesterol 37.80 L (40.00-60.00) mg/dL Cholesterol/HDL Ratio 5.32 Ratio Current Medications Generic Name Dose Route Start Last Admin Trade Name Freq PRN Reason Stop Dose Admin Acetaminophen 650 mg 10/07/21 19:50 10/08/21 09:16 Acetaminophen Tab 325 Mg Tab PO 650 mg Q4HR PRN Administration Fever and/ or Pain Aspirin 81 mg 10/08/21 09:00 10/08/21 09:17 Aspirin 81 Mg PO 81 mg DAILY HEMANTH Administration Buspirone HCl 15 mg 10/07/21 21:00 10/08/21 09:16 Buspirone Hcl 5 Mg Tab PO 15 mg BID HEMANTH Administration Calcium Carbonate/Glycine 500 mg 10/07/21 13:36 Calcium Carbonate 500 Mg Chewable PO QID PRN Heartburn Carvedilol 12.5 mg 10/07/21 17:30 10/08/21 06:25 Carvedilol 12.5 Mg Tab PO 12.5 mg BID-W/MEALS HEMANTH Administration Clonazepam 1 mg 10/07/21 13:36 10/08/21 09:20 Clonazepam 1 Mg Tab PO 1 mg BID PRN Administration Anxiety Clonidine 0.1 mg 10/07/21 21:00 10/07/21 20:17 Clonidine Hcl 0.1 Mg Tab PO 0.1 mg HS HEMANTH Administration Fenofibrate 160 mg 10/08/21 09:00 10/08/21 09:17 Fenofibrate 160 Mg Tab PO 160 mg DAILY HEMANTH Administration Ferrous Sulfate 325 mg 10/08/21 09:00 10/08/21 09:16 Ferrous Sulfate 325 Mg Tab PO 325 mg DAILY HEMANTH Administration Gabapentin 800 mg 10/07/21 16:00 10/08/21 09:16 Gabapentin 400 Mg Cap PO 800 mg TID HEMANTH Administration Heparin Sodium (Porcine) 5,000 unit 10/08/21 00:00 10/08/21 11:31 Heparin Sodium,Porcine/Pf 5,000 Unit/0.5 Ml Syringe SQ Not Given Q8HR HEMANTH Hydroxyzine Pamoate 50 mg 10/07/21 13:36 Hydroxyzine Pamoate 25 Mg Cap PO TID PRN Anxiety Melatonin 10 mg 10/07/21 21:00 10/07/21 20:17 Melatonin 5 Mg Tablet PO 10 mg HS HEMANTH Administration Mirtazapine 15 mg 10/07/21 21:00 10/07/21 20:17 Mirtazapine 15 Mg Tab PO 15 mg HS HEMANTH Administration Multivit/Ca Carb/B Cmplx/FA/Prenat 1 each 10/08/21 09:00 10/08/21 09:17 Folic Acid-Vit B Complex-Vit C 1 Cap PO 1 each DAILY HEMANTH Administration Multivitamins 1 each 10/08/21 09:00 10/08/21 09:17 Multivitamins, Thera 1 Each Tab PO 1 each DAILY HEMANTH Administration Naltrexone HCl 50 mg 10/08/21 09:00 10/08/21 09:17 Naltrexone Hcl 50 Mg Tab PO 50 mg DAILY HEMANTH Administration Nitroglycerin 0.4 mg 10/07/21 12:03 Nitroglycerin Sl Tabs 0.4 Mg Tab SUBLINGUAL Q5M PRN Chest Pain Nitroglycerin 1 inch 10/07/21 18:00 10/08/21 12:11 Nitroglycerin Oint 1 Inch/Gm Packet TOPICAL Not Given Q6HR HEMANTH Pantoprazole Sodium 40 mg 10/07/21 21:00 10/07/21 20:17 Pantoprazole 40 Mg Tablet PO 40 mg HS HEMANTH Administration Pravastatin Sodium 40 mg 10/07/21 21:00 10/07/21 20:17 Pravastatin Sodium 40 Mg Tab PO 40 mg HS HEMANTH Administration Prazosin HCl 5 mg 10/07/21 21:00 10/07/21 20:17 Prazosin 1 Mg Cap PO 5 mg HS HEMANTH Administration Ziprasidone 40 mg 10/07/21 21:00 10/08/21 09:18 Ziprasidone 40 Mg Cap PO 40 mg BID HEMANTH Administration Intake and Output 10/07/21 10/08/21 10/08/21 22:59 06:59 14:59 Intake Total 485 326 Balance 485 326 Intake: Oral 485 326 Other: Voiding Method Toilet Toilet # Voids 1 1 Weight 83.915 kg 10/07/21 09:02 10/07/21 09:02
--- NOTE | 2021-10-12 12:06 | CA ---
Transthoracic Echo Report Name: Andrea Elliott Age: 56 Gender: M : 1965 Exam Date: 10/07/2021 13:53 Exam Location: [facility] Ht (in): 67 Wt (lb): 185 Ordering Physician: Ezio Smith MD Attending/Referring Phys: [employer] Court Judge Linda Leach RDCS Procedure CPT: Indications: Chest Pain Cardiac Hx: Technical Quality: Contrast 1: Total Dose (mL): Contrast 2: Total Dose (mL): MEASUREMENTS (Male / Female) Normal Values 2D ECHO LV Diastolic Diameter PLAX 4.0 cm 4.2 - 5.9 / 3.9 - 5.3 cm LV Systolic Diameter PLAX 2.8 cm IVS Diastolic Thickness 1.3 cm 0.6 - 1.0 / 0.6 - 0.9 cm LVPW Diastolic Thickness 1.3 cm 0.6 - 1.0 / 0.6 - 0.9 cm LV Relative Wall Thickness 0.7 RV Internal Dim ED PLAX 3.2 cm LA Systolic Diameter LX 3.4 cm 3.0 - 4.0 / 2.7 - 3.8 cm LA Volume 42.2 cm??? 18 - 58 / 22 - 52 cm??? M-MODE Aortic Root Diameter MM 3.7 cm MV E Point Septal Separation 0.6 cm AV Cusp Separation MM 2.0 cm DOPPLER AV Peak Velocity 117.2 cm/s AV Peak Gradient 5.5 mmHg MV Area PHT 2.0 cm??? Mitral E Point Velocity 78.3 cm/s Mitral A Point Velocity 121.9 cm/s Mitral E to A Ratio 0.6 MV Deceleration Time 371.6 ms MV E' Velocity 4.3 cm/s Mitral E to MV E' Ratio 18.3 TR Peak Velocity 211.2 cm/s TR Peak Gradient 17.8 mmHg Right Ventricular Systolic Press 22.2 mmHg FINDINGS Left Ventricle Left ventricular ejection fraction is estimated at 60-65 %. Normal left ventricular wall motion. Mildly increased left ventricular wall thickness. Right Ventricle Normal right ventricular size and function. Right ventricular systolic pressure within normal limits. Right Atrium Normal right atrial size. Left Atrium Normal left atrial size. No evidence for an atrial septal defect. Mitral Valve Moderate thickening/calcification of the posterior mitral valve leaflet. No mitral stenosis, regurgitation or prolapse. Aortic Valve Trileaflet aortic valve. No aortic valve stenosis or regurgitation. Tricuspid Valve Mild tricuspid regurgitation. Pulmonic Valve Trace pulmonic regurgitation. Pericardium Normal pericardium. Aorta Normal size aortic root and proximal ascending aorta. CONCLUSIONS Normal left ventricular dimension and systolic function Please see above for further details Previewed by: Dr. Zachery Strickland MD (Electronically Signed) Final Date: 12 Oct 2021 12:05
== END 2021-10-08 15:50 | disposition home or self-care (01) ==
LOC: EC 08:07 → 3SCARD 12:04 → INTOOBSV 12:04 → 3SCARD 15:51 → UNDODISIN 10-08 15:50
PROVIDERS: ADMIT Family Medicine; ATTEND Family Medicine
DX: R07.89 Other chest pain (principal); I16.0 Hypertensive urgency; E83.42 Hypomagnesemia; I12.9 Hypertensive chronic kidney disease with stage 1 through stage 4 chronic kidney disease, or unspecified chronic kidney disease; N18.9 Chronic kidney disease, unspecified; E11.22 Type 2 diabetes mellitus with diabetic chronic kidney disease; E78.00 Pure hypercholesterolemia, unspecified; E78.5 Hyperlipidemia, unspecified; I07.1 Rheumatic tricuspid insufficiency; E11.40 Type 2 diabetes mellitus with diabetic neuropathy, unspecified; F31.9 Bipolar disorder, unspecified; G47.30 Sleep apnea, unspecified; F41.9 Anxiety disorder, unspecified; F25.9 Schizoaffective disorder, unspecified; F17.200 Nicotine dependence, unspecified, uncomplicated; Z28.310 Unvaccinated for COVID-19; Z79.82 Long term (current) use of aspirin; Z79.84 Long term (current) use of oral hypoglycemic drugs; Z79.899 Other long term (current) drug therapy; Z88.1 Allergy status to other antibiotic agents; Z88.8 Allergy status to other drugs, medicaments and biological substances; Z96.643 Presence of artificial hip joint, bilateral; Z98.42 Cataract extraction status, left eye; Z98.41 Cataract extraction status, right eye; Z98.890 Other specified postprocedural states; Z87.898 Personal history of other specified conditions; Z82.49 Family history of ischemic heart disease and other diseases of the circulatory system; Z82.0 Family history of epilepsy and other diseases of the nervous system; Z81.8 Family history of other mental and behavioral disorders
CPT/HCPCS: 96365; 96366; 96375; 99285; 36415; 93005; 93306; 80061; 80053; 83735; 84484; 85025; 85610; 85730; 71046; G0378 ×2; J2060; J3475

== ENCOUNTER 2021-10-19 06:06 | Emergency (ER) | payer MEDICARE, OTHER ==
[2021-10-19] MEDS ORDERED: clonazePAM 0.5 MG TAB PO STA (06:32)
--- NOTE | 2021-10-19 06:43 | ED ---
General Adult HPI - General Chief complaint: Arrhythmia/Palpitations Stated complaint: Low BP, High HR Time Seen by Provider: 10/19/21 06:24 Source: patient, RN notes reviewed Mode of arrival: wheelchair Limitations: no limitations - History of Present Illness Initial comments: Patient is a 56-year-old male presents to the ER with complaints of palpitations with associated occasional chest pain and shortness of breath. He has a past medical history significant for diabetes, hypertension, hyperlipidemia, anxiety and sleep apnea. He reports that he recently underwent a sleep study which indicated he no longer needs a CPAP machine consequently is not using it. He notes that he does wake up during the night often anxiety and palpitations similar to events that he is experiencing now which have lessened since his arrival to the ED. He was recently worked up for chest pain and notes that symptoms are similar to but not the same as his previous presentation. He that takes Klonopin 1-2 times a day as needed for severe anxiety and has not taken any Klonopin since the onset of the symptoms. He denies any recent increased stressors, changes in mood or behavior. He denies any other complaints or concerns at this time. - Related Data Home Medications Medication Instructions Recorded Confirmed Multivitamins, Thera [Multivitamin 1 tab PO DAILY 10/07/21 10/19/21 (formulary)] cloNIDine HCL [Catapres] 0.1 mg PO HS 10/07/21 10/19/21 hydrOXYzine pamoate [Vistaril] 50 mg PO TID PRN 10/07/21 10/19/21 modafiniL [Provigil] 200 mg PO DAILY 10/19/21 10/19/21 Previous Rx's Medication Instructions Recorded Aspirin EC [Ecotrin Low Dose] 81 mg PO DAILY 30 Days tab 08/17/21 Calcium Carbonate [Tums] 500 mg PO QID PRN 30 Days 08/17/21 Fenofibrate [Lofibra] 160 mg PO DAILY 30 Days tab 08/17/21 Ferrous Sulfate [Iron (65 MG 325 mg PO DAILY 30 Days tab 08/17/21 Elemental)] Gabapentin 800 mg PO TID 14 Days tab 08/17/21 Melatonin 10 mg PO HS 30 Days tablet 08/17/21 Mirtazapine [Remeron] 15 mg PO HS 30 Days tab 08/17/21 Naltrexone HCl [Revia] 50 mg PO DAILY 30 Days tab 08/17/21 Pantoprazole [Protonix] 40 mg PO HS 30 Days tab 08/17/21 Pravastatin Sodium [Pravachol] 40 mg PO HS 30 Days tab 08/17/21 Prazosin [Minipress] 5 mg PO HS 30 Days cap 08/17/21 Vitamin B Complex 1 cap PO DAILY 30 Days cap 08/17/21 Ziprasidone [Geodon] 40 mg PO BID 30 Days cap 08/17/21 busPIRone HCL 15 mg PO BID 30 Days tab 08/17/21 carvediloL [Coreg*] 12.5 mg PO BID 30 Days tab 08/17/21 clonazePAM [KlonoPIN] 1 mg PO BID PRN 14 Days tab 08/17/21 glipiZIDE [Glucotrol] 20 mg PO BID 30 Days tab 08/17/21 metFORMIN HCL [Glucophage] 1,000 mg PO BID 30 Days #60 tab 08/17/21 Allergies Allergy/AdvReac Type Severity Reaction Status Date / Time thimerosal Allergy Severe Rash/Hives/throat Verified 10/19/21 08:26 swelling neomycin Allergy Rash/Hives Verified 10/19/21 08:26 Review of Systems ROS Statement: Those systems with pertinent positive or pertinent negative responses have been documented in the HPI. ROS Other: All systems not noted in ROS Statement are negative. Past Medical History Past Medical History: Diabetes Mellitus, Hyperlipidemia, Hypertension, Sleep Apnea/CPAP/BIPAP Additional Past Medical History / Comment(s): hx bilateral hip 2017 replacem ents, neuropathy, anxiety History of Any Multi-Drug Resistant Organisms: None Reported Past Surgical History: Joint Replacement Additional Past Surgical History / Comment(s): bilateral cataract removed, Both hips replaced, right heal shattered- screws/plates/ pins, cardiac cath 06/18/20 Past Anesthesia/Blood Transfusion Reactions: No Reported Reaction Past Psychological History: Anxiety, Bipolar, Depression, Schizoaffective Disorder Smoking Status: Current every day smoker Past Alcohol Use History: None Reported Past Drug Use History: None Reported - Past Family History Father Family Medical History: Myocardial Infarction ([place]) Additional Family Medical History / Comment(s): mid 30's Mother Family Medical History: Dementia family Additional Family Medical History / Comment(s): anxiety General Exam Limitations: no limitations General appearance: alert, in no apparent distress Head exam: Present: atraumatic, normocephalic, normal inspection Eye exam: Present: normal appearance, PERRL, EOMI. Absent: scleral icterus, conjunctival injection, periorbital swelling Respiratory exam: Present: normal lung sounds bilaterally. Absent: respiratory distress, wheezes, rales, rhonchi, stridor Cardiovascular Exam: Present: normal rhythm, tachycardia (mild), normal heart sounds. Absent: rubs, gallop GI/Abdominal exam: Present: soft, normal bowel sounds. Absent: distended, tenderness, guarding, rebound, rigid Rectal exam: Present: deferred Extremities exam: Present: normal inspection, full ROM, normal capillary refill. Absent: tenderness, pedal edema, joint swelling, calf tenderness Neurological exam: Present: alert, oriented X3, CN II-XII intact Psychiatric exam: Present: normal affect, normal mood Skin exam: Present: warm, dry, intact, normal color. Absent: rash Course Vital Signs 10/19/21 10/19/21 10/19/21 06:07 06:43 10:17 Temperature 97.7 F Pulse Rate 126 H 114 H 100 Respiratory 18 20 18 Rate Blood Pressure 136/96 116/89 100/84 O2 Sat by Pulse 99 96 96 Oximetry 10/19/21 11:02 Temperature Pulse Rate 95 Respiratory 18 Rate Blood Pressure 126/98 O2 Sat by Pulse 96 Oximetry EKG Findings - EKG Comments: EKG Findings:: Sinus tachycardia. Ventricular Rate 117. OK interval 132 ms QRS duration 99 ms - EKG Results: EKG: interpreted by ERMD, sinus rhythm EKG shows: tachycardia Medical Decision Making - Medical Decision Making Lab work reviled mild leukocytosis and increase creatinine. COVID test negative. Patient was given klonopin 1mg with improvement in anxiety levels but continue mild sinus tachycardia with increased heart rate with mild activity. Chest xray was normal chest and no changes. He is on coreg from cardiology and states he took his last dose on time last night. Heart rate and palpitations improved with IV fluid bolus. Heart back to baseline 80-90s and now denies any chest pain or shortness of breath. - Lab Data Result diagrams: 10/19/21 06:35 10/19/21 07:35 Lab Results 10/19/21 10/19/21 10/19/21 Range/Units 06:35 07:35 08:20 WBC 11.3 H (3.8-10.6) k/uL RBC 4.75 (4.30-5.90) m/uL Hgb 13.9 (13.0-17.5) gm/dL Hct 43.0 (39.0-53.0) % MCV 90.5 (80.0-100.0) fL MCH 29.4 (25.0-35.0) pg MCHC 32.5 (31.0-37.0) g/dL RDW 13.8 (11.5-15.5) % Plt Count 479 H (150-450) k/uL MPV 7.1 Neutrophils % 74 % Lymphocytes % 19 % Monocytes % 4 % Eosinophils % 1 % Basophils % 0 % Neutrophils # 8.3 H (1.3-7.7) k/uL Lymphocytes # 2.1 (1.0-4.8) k/uL Monocytes # 0.5 (0-1.0) k/uL Eosinophils # 0.1 (0-0.7) k/uL Basophils # 0.1 (0-0.2) k/uL Sodium 136 L (137-145) mmol/L Potassium 4.4 (3.5-5.1) mmol/L Chloride 101 (98-107) mmol/L Carbon Dioxide 21 L (22-30) mmol/L Anion Gap 14 mmol/L BUN 26 H (9-20) mg/dL Creatinine 1.72 H (0.66-1.25) mg/dL Est GFR (CKD-EPI)AfAm 50 (>60 ml/min/1.73 sqM) Est GFR (CKD-EPI)NonAf 43 (>60 ml/min/1.73 sqM) Glucose 170 H (74-99) mg/dL Calcium 9.8 (8.4-10.2) mg/dL Total Bilirubin 0.4 (0.2-1.3) mg/dL AST 27 (17-59) U/L ALT 23 (4-49) U/L Alkaline Phosphatase 54 (38-126) U/L Total Protein 8.0 (6.3-8.2) g/dL Albumin 4.8 (3.5-5.0) g/dL Coronavirus (PCR) Not Detected (Not Detectd) - EKG Data EKG shows normal: sinus rhythm Rate: tachycardia - Radiology Data Radiology results: report reviewed, image reviewed Normal chest. No changes. Disposition Clinical Impression: Sinus tachycardia, Dehydration Disposition: HOME SELF-CARE Condition: Fair Instructions (If sedation given, give patient instructions): Heart Palpitations (ED), Dehydration (ED) Additional Instructions: Please return to the Emergency Department if symptoms worsen or any other concerns. Is patient prescribed a controlled substance at d/c from ED?: Yes Referrals: Marlen Mobley MD [Primary Care Provider] - 1-2 days
--- NOTE | 2021-10-19 06:58 | XR ---
EXAMINATION TYPE: XR chest 2V DATE OF EXAM: 10/19/2021 COMPARISON: 10/07/2021 HISTORY: Dysrhythmia TECHNIQUE: 2 views FINDINGS: Heart and mediastinum are normal. Lungs are clear. Diaphragm is normal. Bony thorax appears normal. IMPRESSION: Normal chest. No change.
[2021-10-19 07:11] LABS: Basophils # (A) 0.1 k/uL (0-0.2); Basophils % (A) 0 %; Eosinophils # (A) 0.1 k/uL (0-0.7); Eosinophils % (A) 1 %; HGB 13.9 gm/dL (13.0-17.5); Lymphocytes # (A) 2.1 k/uL (1.0-4.8); Lymphocytes % (A) 19 %; MCH 29.4 pg (25.0-35.0); MCHC 32.5 g/dL (31.0-37.0); MCV 90.5 fL (80.0-100.0); Mean Platelet Volume 7.1; Monocytes # (A) 0.5 k/uL (0-1.0); Monocytes % (A) 4 %; Neutrophils # (A) 8.3 k/uL (1.3-7.7); Neutrophils % (A) 74 %; Platelet Count 479 k/uL (150-450); RBC 4.75 m/uL (4.30-5.90); RDW 13.8 % (11.5-15.5); WBC 11.3 k/uL (3.8-10.6)
[2021-10-19 07:58] LABS: Albumin 4.8 g/dL (3.5-5.0); Calcium 9.8 mg/dL (8.4-10.2); Potassium 4.4 mmol/L (3.5-5.1); Total Bilirubin 0.4 mg/dL (0.2-1.3)
[2021-10-19] MEDS ORDERED: SODIUM CHLORIDE 0.9% 500 ML 500 ML IV STA (08:05)
[2021-10-19 12:41] VITALS: BP 112/90; PULSE 108; RESP 14; TEMP 98
== END 2021-10-19 12:56 | disposition home or self-care (01) ==
LOC: EC 06:06
DX: R00.0 Tachycardia, unspecified (principal); E86.0 Dehydration; Z20.822 Contact with and (suspected) exposure to COVID-19; E11.40 Type 2 diabetes mellitus with diabetic neuropathy, unspecified; E11.36 Type 2 diabetes mellitus with diabetic cataract; I10 Essential (primary) hypertension; E78.5 Hyperlipidemia, unspecified; F31.9 Bipolar disorder, unspecified; F25.9 Schizoaffective disorder, unspecified; F41.9 Anxiety disorder, unspecified; F17.200 Nicotine dependence, unspecified, uncomplicated; Z79.82 Long term (current) use of aspirin; Z79.84 Long term (current) use of oral hypoglycemic drugs; Z79.899 Other long term (current) drug therapy
CPT/HCPCS: 36415; 71046; 80053; 85025; 87635; 93005; 96360; 96361; 99285

== ENCOUNTER 2021-10-22 05:53 | Emergency (ER) | payer MEDICARE, OTHER ==
[2021-10-22] MEDS ORDERED: SODIUM CHLORIDE 0.9% 500 ML 500 ML IV STA (06:16)
[2021-10-22] MEDS ORDERED: SODIUM CHLORIDE 0.9% 1,000 ML IV STA (06:16)
[2021-10-22] MEDS ORDERED: DIAZEPAM 5 MG/ML 2 ML INJ IVP STA (06:58)
[2021-10-22 08:06] VITALS: BP 109/90; RESP 18
--- NOTE | 2021-10-22 08:06 | XR ---
EXAMINATION TYPE: XR chest 2V DATE OF EXAM: 10/22/2021 COMPARISON: 10/19/2021 INDICATION: Chest pain TECHNIQUE: Frontal and lateral views of the chest are obtained. FINDINGS: The heart size is normal. The pulmonary vasculature is normal. The lungs are clear. IMPRESSION: 1. No acute pulmonary process.
[2021-10-22 08:29] LABS: Albumin 4.6 g/dL (3.5-5.0); Calcium 9.5 mg/dL (8.4-10.2); Magnesium 1.5 mg/dL (1.6-2.3); Potassium 4.8 mmol/L (3.5-5.1); Total Bilirubin 0.4 mg/dL (0.2-1.3); Total Protein 7.6 g/dL (6.3-8.2)
[2021-10-22 08:35] LABS: Partial Thromboplastin Time 22.5 sec (22.0-30.0); Prothrombin Time 11.2 sec (9.0-12.0)
[2021-10-22 08:47] LABS: Basophils % (A) 0 %; Eosinophils # (A) 0.2 k/uL (0-0.7); Eosinophils % (A) 2 %; HCT 40.1 % (39.0-53.0); HGB 13.4 gm/dL (13.0-17.5); Lymphocytes # (A) 2.1 k/uL (1.0-4.8); Lymphocytes % (A) 21 %; MCH 30.2 pg (25.0-35.0); MCHC 33.5 g/dL (31.0-37.0); MCV 90.1 fL (80.0-100.0); Monocytes # (A) 0.5 k/uL (0-1.0); Monocytes % (A) 5 %; Neutrophils # (A) 6.7 k/uL (1.3-7.7); Neutrophils % (A) 69 %; Platelet Count 429 k/uL (150-450); RBC 4.45 m/uL (4.30-5.90); RDW 13.6 % (11.5-15.5); WBC 9.7 k/uL (3.8-10.6)
--- NOTE | 2021-10-22 09:16 | ED ---
Anxiety HPI - General Chief Complaint: Anxiety Stated Complaint: Chest Pain Time Seen by Provider: 10/22/21 06:03 Source: patient, RN notes reviewed Mode of arrival: ambulatory Limitations: no limitations - History of Present Illness Initial Comments: This a 56-year-old male presents emergency Department chief complaint of anxiety, elevated heart rate, low blood pressure. Patient had multiple recent visits for similar complaints. Patient was admitted to cardiology clearance told him this is most likely anxiety he wakes up states she had panic injections vitals which were abnormal which makes symptoms worse. Patient presents to emergency department with similar complaints as prior visits. He has no abdominal pain. Patient denies any fevers chills no chest pain. - Related Data Home Medications: Home Medications Medication Instructions Recorded Confirmed Multivitamins, Thera [Multivitamin 1 tab PO DAILY 10/07/21 10/19/21 (formulary)] cloNIDine HCL [Catapres] 0.1 mg PO HS 10/07/21 10/19/21 hydrOXYzine pamoate [Vistaril] 50 mg PO TID PRN 10/07/21 10/19/21 modafiniL [Provigil] 200 mg PO DAILY 10/19/21 10/19/21 Previous Rx's Medication Instructions Recorded Aspirin EC [Ecotrin Low Dose] 81 mg PO DAILY 30 Days tab 08/17/21 Calcium Carbonate [Tums] 500 mg PO QID PRN 30 Days 08/17/21 Fenofibrate [Lofibra] 160 mg PO DAILY 30 Days tab 08/17/21 Ferrous Sulfate [Iron (65 MG 325 mg PO DAILY 30 Days tab 08/17/21 Elemental)] Gabapentin 800 mg PO TID 14 Days tab 08/17/21 Melatonin 10 mg PO HS 30 Days tablet 08/17/21 Mirtazapine [Remeron] 15 mg PO HS 30 Days tab 08/17/21 Naltrexone HCl [Revia] 50 mg PO DAILY 30 Days tab 08/17/21 Pantoprazole [Protonix] 40 mg PO HS 30 Days tab 08/17/21 Pravastatin Sodium [Pravachol] 40 mg PO HS 30 Days tab 08/17/21 Prazosin [Minipress] 5 mg PO HS 30 Days cap 08/17/21 Vitamin B Complex 1 cap PO DAILY 30 Days cap 08/17/21 Ziprasidone [Geodon] 40 mg PO BID 30 Days cap 08/17/21 busPIRone HCL 15 mg PO BID 30 Days tab 08/17/21 carvediloL [Coreg*] 12.5 mg PO BID 30 Days tab 08/17/21 clonazePAM [KlonoPIN] 1 mg PO BID PRN 14 Days tab 08/17/21 glipiZIDE [Glucotrol] 20 mg PO BID 30 Days tab 08/17/21 metFORMIN HCL [Glucophage] 1,000 mg PO BID 30 Days #60 tab 08/17/21 Allergies/Adverse Reactions: Allergies Allergy/AdvReac Type Severity Reaction Status Date / Time thimerosal Allergy Severe Rash/Hives/throat Verified 10/22/21 05:56 swelling neomycin Allergy Rash/Hives Verified 10/22/21 05:56 Review of Systems ROS Statement: Those systems with pertinent positive or pertinent negative responses have been documented in the HPI. ROS Other: All systems not noted in ROS Statement are negative. 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, neuropathy, anxiety History of Any Multi-Drug Resistant Organisms: None Reported Past Surgical History: Joint Replacement Additional Past Surgical History / Comment(s): bilateral cataract removed, Both hips replaced, right heal shattered- screws/plates/ pins, cardiac cath 06/18/20 Past Anesthesia/Blood Transfusion Reactions: No Reported Reaction Past Psychological History: Anxiety, Bipolar, Depression, Schizoaffective Disorder Smoking Status: Current every day smoker Past Alcohol Use History: None Reported Past Drug Use History: None Reported - Past Family History Father Family Medical History: Myocardial Infarction ([place]) Additional Family Medical History / Comment(s): mid 30's Mother Family Medical History: Dementia family Additional Family Medical History / Comment(s): anxiety General Exam Limitations: no limitations General appearance: alert, in no apparent distress, anxious Head exam: Present: atraumatic, normocephalic, normal inspection Eye exam: Present: normal appearance, PERRL, EOMI. Absent: scleral icterus, c onjunctival injection, periorbital swelling ENT exam: Present: normal exam, normal oropharynx, mucous membranes moist Neck exam: Present: normal inspection, full ROM. Absent: tenderness, meningismus, lymphadenopathy Respiratory exam: Present: normal lung sounds bilaterally. Absent: respiratory distress, wheezes, rales, rhonchi, stridor Cardiovascular Exam: Present: normal rhythm, tachycardia, normal heart sounds. Absent: systolic murmur, diastolic murmur, rubs, gallop, clicks Neurological exam: Present: alert, oriented X3 Skin exam: Present: warm, dry, intact, normal color. Absent: rash Course Vital Signs 10/22/21 10/22/21 05:57 08:05 Temperature 97.5 F L Pulse Rate 123 H 98 Respiratory 16 18 Rate Blood Pressure 158/105 109/90 O2 Sat by Pulse 98 98 Oximetry Medical Decision Making - Medical Decision Making 56-year-old presented for tachycardia, anxiety. Patient feels better after Valium. Patient has no complaints of chest pain, he had recent evaluation cardiology in which he was cleared from cardiology standpoint. Patient has no shortness breath no other complaints. - Lab Data Result diagrams: 10/22/21 07:46 10/22/21 07:46 Lab Results 10/22/21 10/22/21 10/22/21 Range/Units 07:46 07:46 07:46 WBC 9.7 (3.8-10.6) k/uL RBC 4.45 (4.30-5.90) m/uL Hgb 13.4 (13.0-17.5) gm/dL Hct 40.1 (39.0-53.0) % MCV 90.1 (80.0-100.0) fL MCH 30.2 (25.0-35.0) pg MCHC 33.5 (31.0-37.0) g/dL RDW 13.6 (11.5-15.5) % Plt Count 429 (150-450) k/uL MPV 8.0 Neutrophils % 69 % Lymphocytes % 21 % Monocytes % 5 % Eosinophils % 2 % Basophils % 0 % Neutrophils # 6.7 (1.3-7.7) k/uL Lymphocytes # 2.1 (1.0-4.8) k/uL Monocytes # 0.5 (0-1.0) k/uL Eosinophils # 0.2 (0-0.7) k/uL Basophils # 0.0 (0-0.2) k/uL PT 11.2 (9.0-12.0) sec INR 1.0 (<1.2) APTT 22.5 (22.0-30.0) sec D-Dimer 0.45 (<0.60) mg/L FEU Sodium 138 (137-145) mmol/L Potassium 4.8 (3.5-5.1) mmol/L Chloride 105 (98-107) mmol/L Carbon Dioxide 21 L (22-30) mmol/L Anion Gap 12 mmol/L BUN 26 H (9-20) mg/dL Creatinine 1.52 H (0.66-1.25) mg/dL Est GFR (CKD-EPI)AfAm 58 (>60 ml/min/1.73 sqM) Est GFR (CKD-EPI)NonAf 50 (>60 ml/min/1.73 sqM) Glucose 163 H (74-99) mg/dL Calcium 9.5 (8.4-10.2) mg/dL Magnesium 1.5 L (1.6-2.3) mg/dL Total Bilirubin 0.4 (0.2-1.3) mg/dL AST 28 (17-59) U/L ALT 27 (4-49) U/L Alkaline Phosphatase 58 (38-126) U/L Troponin I (0.000-0.034) ng/mL Total Protein 7.6 (6.3-8.2) g/dL Albumin 4.6 (3.5-5.0) g/dL 10/22/21 Range/Units 07:46 WBC (3.8-10.6) k/uL RBC (4.30-5.90) m/uL Hgb (13.0-17.5) gm/dL Hct (39.0-53.0) % MCV (80.0-100.0) fL MCH (25.0-35.0) pg MCHC (31.0-37.0) g/dL RDW (11.5-15.5) % Plt Count (150-450) k/uL MPV Neutrophils % % Lymphocytes % % Monocytes % % Eosinophils % % Basophils % % Neutrophils # (1.3-7.7) k/uL Lymphocytes # (1.0-4.8) k/uL Monocytes # (0-1.0) k/uL Eosinophils # (0-0.7) k/uL Basophils # (0-0.2) k/uL PT (9.0-12.0) sec INR (<1.2) APTT (22.0-30.0) sec D-Dimer (<0.60) mg/L FEU Sodium (137-145) mmol/L Potassium (3.5-5.1) mmol/L Chloride (98-107) mmol/L Carbon Dioxide (22-30) mmol/L Anion Gap mmol/L BUN (9-20) mg/dL Creatinine (0.66-1.25) mg/dL Est GFR (CKD-EPI)AfAm (>60 ml/min/1.73 sqM) Est GFR (CKD-EPI)NonAf (>60 ml/min/1.73 sqM) Glucose (74-99) mg/dL Calcium (8.4-10.2) mg/dL Magnesium (1.6-2.3) mg/dL Total Bilirubin (0.2-1.3) mg/dL AST (17-59) U/L ALT (4-49) U/L Alkaline Phosphatase (38-126) U/L Troponin I <0.012 (0.000-0.034) ng/mL Total Protein (6.3-8.2) g/dL Albumin (3.5-5.0) g/dL Disposition Clinical Impression: Acute anxiety, Panic attack Disposition: HOME SELF-CARE Condition: Stable Instructions (If sedation given, give patient instructions): Generalized Anxiety Disorder (ED) Additional Instructions: Please follow-up your primary care physician regarding anxiolytic medication for anxiety.Please return to the Emergency Department if symptoms worsen or any other concerns. Is patient prescribed a controlled substance at d/c from ED?: No Referrals: Marlen Mobley MD [Primary Care Provider] - 1-2 days Time of Disposition: 09:16
[2021-10-22 13:16] VITALS: PULSE 102; TEMP 98
== END 2021-10-22 10:14 | disposition home or self-care (01) ==
LOC: EC 05:53
DX: F41.0 Panic disorder [episodic paroxysmal anxiety] (principal); F17.200 Nicotine dependence, unspecified, uncomplicated; E11.9 Type 2 diabetes mellitus without complications; I10 Essential (primary) hypertension; Z88.1 Allergy status to other antibiotic agents; Z88.8 Allergy status to other drugs, medicaments and biological substances; Z79.899 Other long term (current) drug therapy
CPT/HCPCS: 36415; 93005; 85379; 80053; 83735; 84484; 85025; 85610; 85730; 71046; 99285; 96374; 96361; J3360

== ENCOUNTER 2021-10-26 06:09 | Emergency (ER) | payer MEDICARE, OTHER ==
[2021-10-26 06:13] VITALS: RESP 16
[2021-10-26] MEDS ORDERED: diazePAM 5 MG TAB PO STA (06:29)
--- NOTE | 2021-10-26 06:36 | ED ---
Anxiety HPI - General Chief Complaint: Anxiety Stated Complaint: Palpitations Time Seen by Provider: 10/26/21 06:20 Source: patient, RN notes reviewed, old records reviewed Mode of arrival: ambulatory Limitations: no limitations - History of Present Illness Initial Comments: This is a well-appearing 56-year-old male who presents to the emergency room wi th anxiety since awakening this morning. Patient has a history of the same. He was seen last week in the emergency room and given Valium which resolved his symptoms. He does have an appointment with his primary care doctor tomorrow. He denies any fevers, no nausea vomiting or diarrhea. He does not know what triggers his anxiety, states that he woke up with it this morning. He does have history of bipolar, high cholesterol, hypertension and diabetes. He is a smoker, smokes 1 pack a week. Denies any alcohol or drug use. MD Complaint: anxiety, heart racing, shortness of breath -: hour(s) Symptoms: other Place: home Previous History of Same: Yes Severity: moderate Quality: constant Provoking factors: none known Improves With: medication (improved with valium in past) - Related Data Home Medications: Home Medications Medication Instructions Recorded Confirmed Multivitamins, Thera [Multivitamin 1 tab PO DAILY 10/07/21 10/19/21 (formulary)] cloNIDine HCL [Catapres] 0.1 mg PO HS 10/07/21 10/19/21 hydrOXYzine pamoate [Vistaril] 50 mg PO TID PRN 10/07/21 10/19/21 modafiniL [Provigil] 200 mg PO DAILY 10/19/21 10/19/21 Previous Rx's Medication Instructions Recorded Aspirin EC [Ecotrin Low Dose] 81 mg PO DAILY 30 Days tab 08/17/21 Calcium Carbonate [Tums] 500 mg PO QID PRN 30 Days 08/17/21 Fenofibrate [Lofibra] 160 mg PO DAILY 30 Days tab 08/17/21 Ferrous Sulfate [Iron (65 MG 325 mg PO DAILY 30 Days tab 08/17/21 Elemental)] Gabapentin 800 mg PO TID 14 Days tab 08/17/21 Melatonin 10 mg PO HS 30 Days tablet 08/17/21 Mirtazapine [Remeron] 15 mg PO HS 30 Days tab 08/17/21 Naltrexone HCl [Revia] 50 mg PO DAILY 30 Days tab 08/17/21 Pantoprazole [Protonix] 40 mg PO HS 30 Days tab 08/17/21 Pravastatin Sodium [Pravachol] 40 mg PO HS 30 Days tab 08/17/21 Prazosin [Minipress] 5 mg PO HS 30 Days cap 08/17/21 Vitamin B Complex 1 cap PO DAILY 30 Days cap 08/17/21 Ziprasidone [Geodon] 40 mg PO BID 30 Days cap 08/17/21 busPIRone HCL 15 mg PO BID 30 Days tab 08/17/21 carvediloL [Coreg*] 12.5 mg PO BID 30 Days tab 08/17/21 clonazePAM [KlonoPIN] 1 mg PO BID PRN 14 Days tab 08/17/21 glipiZIDE [Glucotrol] 20 mg PO BID 30 Days tab 08/17/21 metFORMIN HCL [Glucophage] 1,000 mg PO BID 30 Days #60 tab 08/17/21 Allergies/Adverse Reactions: Allergies Allergy/AdvReac Type Severity Reaction Status Date / Time thimerosal Allergy Severe Rash/Hives/throat Verified 10/22/21 05:56 swelling neomycin Allergy Rash/Hives Verified 10/22/21 05:56 Review of Systems ROS Statement: Those systems with pertinent positive or pertinent negative responses have been documented in the HPI. ROS Other: All systems not noted in ROS Statement are negative. 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, neuropathy, anxiety History of Any Multi-Drug Resistant Organisms: None Reported Past Surgical History: Joint Replacement Additional Past Surgical History / Comment(s): bilateral cataract removed, Both hips replaced, right heal shattered- screws/plates/ pins, cardiac cath 06/18/20 Past Anesthesia/Blood Transfusion Reactions: No Reported Reaction Past Psychological History: Anxiety, Bipolar, Depression, Schizoaffective Disorder Smoking Status: Current every day smoker Past Alcohol Use History: None Reported Past Drug Use History: None Reported - Past Family History Father Family Medical History: Myocardial Infarction ([place]) Additional Family Medical History / Comment(s): mid 30's Mother Family Medical History: Dementia family Additional Family Medical History / Comment(s): anxiety General Exam Limitations: no limitations General appearance: alert, in no apparent distress Head exam: Present: atraumatic Eye exam: Present: normal appearance. Absent: scleral icterus, conjunctival injection ENT exam: Present: normal exam, normal oropharynx, mucous membranes moist Neck exam: Present: normal inspection Respiratory exam: Present: normal lung sounds bilaterally. Absent: respiratory distress, accessory muscle use Cardiovascular Exam: Present: tachycardia, normal heart sounds GI/Abdominal exam: Present: soft. Absent: tenderness, guarding, rebound, rigid Back exam: Present: normal inspection. Absent: tenderness, CVA tenderness (R), CVA tenderness (L), rash noted Neurological exam: Present: alert, oriented X3 Psychiatric exam: Present: anxious. Absent: agitated, flat affect, manic Skin exam: Present: warm, dry, normal color. Absent: cyanosis, diaphoretic, petechiae, pallor Course Vital Signs 10/26/21 10/26/21 10/26/21 06:10 06:21 07:49 Temperature 98 F 98.7 F Pulse Rate 126 H 93 Pulse Rate [ 111 H Pen Tender ] Respiratory 16 16 Rate Blood Pressure 116/74 91/71 O2 Sat by Pulse 98 95 Oximetry Medical Decision Making - Medical Decision Making Patient presents with anxiety upon awakening this morning. He was seen October 22 for similar symptoms and Valium which resolved his symptoms. He did have a cardiology consult and was cleared on October 08. He was given Valium which resolved his symptoms today. He does have an appointment with his primary care doctor tomorrow. Vital signs are stable. Patient is agreeable to being discharged home. Case discussed with Dr. Lyons. - Lab Data Lab Results 10/26/21 Range/Units 06:48 POC Glucose (mg/dL) 179 H (75-99) mg/dL POC Glu Fourdrinier Operator ID Mary Pace - EKG Data EKG shows normal: sinus rhythm Rate: tachycardia EKG Comments: Ventricular rate of 111, PA interval 0.128, QRS 0.101, QTC 0.400 Disposition Clinical Impression: Acute anxiety Disposition: HOME SELF-CARE Condition: Good Instructions (If sedation given, give patient instructions): Generalized Anxiety Disorder (ED) Additional Instructions: Keep your appointment with your primary care doctor tomorrow regarding your anxiety. Return to the emergency room with any new or concerning symptoms. Is patient prescribed a controlled substance at d/c from ED?: No Referrals: Marlen Mobley MD [Primary Care Provider] - 1-2 days Time of Disposition: 07:38
[2021-10-26 06:50] LABS: Glucose,Whole Blood 179 mg/dL (75-99)
[2021-10-26 07:54] VITALS: BP 91/71; PULSE 93; TEMP 98.7
== END 2021-10-26 07:54 | disposition home or self-care (01) ==
LOC: EC 06:09
DX: R00.2 Palpitations (principal)
CPT/HCPCS: 36415; 93005

== ENCOUNTER 2021-10-27 03:41 | Emergency (ER) | payer MEDICARE, OTHER ==
[2021-10-27] MEDS ORDERED: LORazepam 2 MG/ML INJ IV STA (04:43)
[2021-10-27] MEDS ORDERED: SODIUM CHLORIDE 0.9% 500 ML 500 ML IV STA (04:43)
[2021-10-27 05:46] LABS: Basophils # (A) 0.1 k/uL (0-0.2); Basophils % (A) 1 %; Eosinophils # (A) 0.1 k/uL (0-0.7); Eosinophils % (A) 2 %; HGB 12.4 gm/dL (13.0-17.5); Lymphocytes # (A) 1.9 k/uL (1.0-4.8); Lymphocytes % (A) 27 %; MCHC 31.8 g/dL (31.0-37.0); Mean Platelet Volume 6.9; Monocytes # (A) 0.3 k/uL (0-1.0); Monocytes % (A) 5 %; Neutrophils # (A) 4.6 k/uL (1.3-7.7); Neutrophils % (A) 63 %; Platelet Count 345 k/uL (150-450); RBC 4.29 m/uL (4.30-5.90); RDW 12.7 % (11.5-15.5); WBC 7.3 k/uL (3.8-10.6)
[2021-10-27 06:02] LABS: ALT 19 U/L (4-49); AST 24 U/L (17-59); African American GFR (CKD) 33 (>60 ml/min/1.73 sqM); Albumin 4.3 g/dL (3.5-5.0); Alkaline Phosphatase 48 U/L (38-126); Anion Gap 15 mmol/L; Blood Urea Nitrogen 29 mg/dL (9-20); Calcium 8.9 mg/dL (8.4-10.2); Carbon Dioxide 16 mmol/L (22-30); Chloride 102 mmol/L (98-107); Glucose 124 mg/dL (74-99); Magnesium 1.3 mg/dL (1.6-2.3); Non-African American GFR(CKD) 29 (>60 ml/min/1.73 sqM); Potassium 4.2 mmol/L (3.5-5.1); Sodium 133 mmol/L (137-145); Total Bilirubin 0.5 mg/dL (0.2-1.3); Total Protein 7.1 g/dL (6.3-8.2)
--- NOTE | 2021-10-27 06:04 | XR ---
EXAMINATION TYPE: XR chest 2V DATE OF EXAM: 10/27/2021 COMPARISON: Chest x-ray October 22, 2021 HISTORY: Dyspnea. TECHNIQUE: Frontal and lateral views of the chest are obtained. FINDINGS: Elevation and eventration of the anterior aspect right hemidiaphragm is redemonstrated. The re is no suspicious new focal air space opacity, pleural effusion, or pneumothorax seen. The cardiac silhouette size remains within normal limits. The osseous structures are intact. IMPRESSION: No acute process. No significant change from prior.
[2021-10-27] MEDS ORDERED: SODIUM CHLORIDE 0.9% 1,000 ML IV ONE (06:36)
[2021-10-27] MEDS ORDERED: MAGNESIUM SULFATE-D5W PMX 1 GM in DEXTROSE/WATER 1 100ML.BAG IVPB ONE (06:37)
--- NOTE | 2021-10-27 07:17 | ED ---
Anxiety HPI - General Chief Complaint: Anxiety Stated Complaint: Anxiety Time Seen by Provider: 10/27/21 04:32 Source: patient Mode of arrival: ambulatory - History of Present Illness Initial Comments: This patient is a 56-year-old man who presents with the complaint that he cari eves he is having an anxiety attack. Patient states that he woke up about 2 hours ago with a feeling like his heart was pounding and he was short of breath. He states he has had episodes like this going back couple of weeks. The patient denies chest pain. No diaphoresis. No nausea or vomiting. He states that he did have a sleep study a little while back and was told that he did not require CPAP. MD Complaint: anxiety, heart racing, shortness of breath -: hour(s) Symptoms: palpitations, perioral numbness/tingling, dry mouth, sense of impending doom Place: home Previous History of Same: Yes Severity: severe Quality: intermittent Improves With: nothing Worsens With: nothing Associated symptoms: shortness of breath - Related Data Home Medications: Home Medications Medication Instructions Recorded Confirmed Multivitamins, Thera [Multivitamin 1 tab PO DAILY 10/07/21 10/27/21 (formulary)] cloNIDine HCL [Catapres] 0.1 mg PO HS 10/07/21 10/27/21 hydrOXYzine pamoate [Vistaril] 50 mg PO TID PRN 10/07/21 10/27/21 modafiniL [Provigil] 200 mg PO DAILY 10/19/21 10/27/21 Cyclobenzaprine [Flexeril] 10 mg PO TID PRN 10/26/21 10/27/21 Dulaglutide [Trulicity] 0.75 mg SQ Q7D 10/26/21 10/27/21 Previous Rx's Medication Instructions Recorded Aspirin EC [Ecotrin Low Dose] 81 mg PO DAILY 30 Days tab 08/17/21 Calcium Carbonate [Tums] 500 mg PO QID PRN 30 Days 08/17/21 Fenofibrate [Lofibra] 160 mg PO DAILY 30 Days tab 08/17/21 Ferrous Sulfate [Iron (65 MG 325 mg PO DAILY 30 Days tab 08/17/21 Elemental)] Gabapentin 800 mg PO TID 14 Days tab 08/17/21 Melatonin 10 mg PO HS 30 Days tablet 08/17/21 Mirtazapine [Remeron] 15 mg PO HS 30 Days tab 08/17/21 Naltrexone HCl [Revia] 50 mg PO DAILY 30 Days tab 08/17/21 Pantoprazole [Protonix] 40 mg PO HS 30 Days tab 08/17/21 Pravastatin Sodium [Pravachol] 40 mg PO HS 30 Days tab 08/17/21 Prazosin [Minipress] 5 mg PO HS 30 Days cap 08/17/21 Vitamin B Complex 1 cap PO DAILY 30 Days cap 08/17/21 Ziprasidone [Geodon] 40 mg PO BID 30 Days cap 08/17/21 busPIRone HCL 15 mg PO BID 30 Days tab 08/17/21 carvediloL [Coreg*] 12.5 mg PO BID 30 Days tab 08/17/21 clonazePAM [KlonoPIN] 1 mg PO BID PRN 14 Days tab 08/17/21 glipiZIDE [Glucotrol] 20 mg PO BID 30 Days tab 08/17/21 metFORMIN HCL [Glucophage] 1,000 mg PO BID 30 Days #60 tab 08/17/21 Allergies/Adverse Reactions: Allergies Allergy/AdvReac Type Severity Reaction Status Date / Time thimerosal Allergy Severe Rash/Hives/throat Verified 10/27/21 06:58 swelling neomycin Allergy Rash/Hives Verified 10/27/21 06:58 Review of Systems ROS Statement: Those systems with pertinent positive or pertinent negative responses have been documented in the HPI. ROS Other: All systems not noted in ROS Statement are negative. Constitutional: Denies: fever, chills, weakness Eyes: Denies: vision change Respiratory: Reports: dyspnea. Denies: cough, wheezes, hemoptysis Cardiovascular: Reports: palpitations. Denies: chest pain, orthopnea, edema, syncope Gastrointestinal: Denies: abdominal pain, nausea, vomiting Genitourinary: Denies: dysuria, hematuria Musculoskeletal: Denies: back pain Skin: Denies: rash Neurological: Denies: headache, weakness, numbness Psychiatric: Denies: visual hallucinations 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, neuropathy, anxiety History of Any Multi-Drug Resistant Organisms: None Reported Past Surgical History: Joint Replacement Additional Past Surgical History / Comment(s): bilateral cataract removed, Both hips replaced, right heal shattered- screws/plates/ pins, cardiac cath 06/18/20 Past Anesthesia/Blood Transfusion Reactions: No Reported Reaction Past Psychological History: Anxiety, Bipolar, Depression, Schizoaffective Disorder Smoking Status: Current every day smoker Past Alcohol Use History: None Reported Past Drug Use History: None Reported - Past Family History Father Family Medical History: Myocardial Infarction ([place]) Additional Family Medical History / Comment(s): mid 30's Mother Family Medical History: Dementia family Additional Family Medical History / Comment(s): anxiety Course Vital Signs 10/27/21 10/27/21 04:04 08:15 Temperature 98.6 F Pulse Rate 98 100 Respiratory 18 16 Rate Blood Pressure 103/68 103/70 O2 Sat by Pulse 98 96 Oximetry - Reevaluation(s) Reevaluation #1: 10/27/21 08:24 Patient's 56-year-old man with episode of anxiety. It does sound like there may be a component of sleep apnea. Workup does reveal degree of acute kidney injury and I was going to have the patient admitted but he states he must go to [facility] today to get his weekly supply of medications. He does understand that changing kidney function can be particularly serious for diabetic patient's. He states he will return here or to his doctor's office for further evaluation and treatment. Medical Decision Making - Lab Data Result diagrams: 10/27/21 05:17 10/27/21 05:17 Lab Results 10/27/21 10/27/21 10/27/21 Range/Units 05:17 05:17 05:17 WBC 7.3 (3.8-10.6) k/uL RBC 4.29 L (4.30-5.90) m/uL Hgb 12.4 L (13.0-17.5) gm/dL Hct 39.0 (39.0-53.0) % MCV 91.0 (80.0-100.0) fL MCH 29.0 (25.0-35.0) pg MCHC 31.8 (31.0-37.0) g/dL RDW 12.7 (11.5-15.5) % Plt Count 345 (150-450) k/uL MPV 6.9 Neutrophils % 63 % Lymphocytes % 27 % Monocytes % 5 % Eosinophils % 2 % Basophils % 1 % Neutrophils # 4.6 (1.3-7.7) k/uL Lymphocytes # 1.9 (1.0-4.8) k/uL Monocytes # 0.3 (0-1.0) k/uL Eosinophils # 0.1 (0-0.7) k/uL Basophils # 0.1 (0-0.2) k/uL Sodium 133 L (137-145) mmol/L Potassium 4.2 (3.5-5.1) mmol/L Chloride 102 (98-107) mmol/L Carbon Dioxide 16 L (22-30) mmol/L Anion Gap 15 mmol/L BUN 29 H (9-20) mg/dL Creatinine 2.42 H (0.66-1.25) mg/dL Est GFR (CKD-EPI)AfAm 33 (>60 ml/min/1.73 sqM) Est GFR (CKD-EPI)NonAf 29 (>60 ml/min/1.73 sqM) Glucose 124 H (74-99) mg/dL Calcium 8.9 (8.4-10.2) mg/dL Magnesium 1.3 L (1.6-2.3) mg/dL Total Bilirubin 0.5 (0.2-1.3) mg/dL AST 24 (17-59) U/L ALT 19 (4-49) U/L Alkaline Phosphatase 48 (38-126) U/L Troponin I <0.012 (0.000-0.034) ng/mL Total Protein 7.1 (6.3-8.2) g/dL Albumin 4.3 (3.5-5.0) g/dL TSH 1.920 (0.465-4.680) mIU/L - EKG Data -: EKG Interpreted by Sc EKG shows normal: sinus rhythm, axis (Normal), intervals (Normal), QRS complexes (Normal) Rate: tachycardia (Rate 101 bpm) Interpretation: nonspecific ST-T wave changes Disposition Clinical Impression: Acute kidney injury, Hypomagnesemia, Anxiety Disposition: Left Against Medical Advice Condition: Fair Instructions (If sedation given, give patient instructions): Acute Kidney Injury (DC), Generalized Anxiety Disorder (ED) Additional Instructions: As we discussed, your creatinine today is 2.42. Return here to have it rechecked or follow with your doctor in a day. As we discussed if there is any change in your condition return immediately. I do suggest that he return after obtaining her medications Is patient prescribed a controlled substance at d/c from ED?: No Referrals: Marlen Mobley MD [Primary Care Provider] - 1-2 days Louise Taylor MD [STAFF PHYSICIAN] - 1-2 days
[2021-10-27 08:17] VITALS: BP 103/70; RESP 16
[2021-10-27 09:15] VITALS: PULSE 82; TEMP 97.8
== END 2021-10-27 09:14 | disposition home or self-care (01) ==
LOC: EC 03:41
DX: F41.9 Anxiety disorder, unspecified (principal); N17.9 Acute kidney failure, unspecified; E83.42 Hypomagnesemia; E11.40 Type 2 diabetes mellitus with diabetic neuropathy, unspecified; I10 Essential (primary) hypertension; E78.5 Hyperlipidemia, unspecified; F31.9 Bipolar disorder, unspecified; F25.9 Schizoaffective disorder, unspecified; F17.200 Nicotine dependence, unspecified, uncomplicated; Z79.84 Long term (current) use of oral hypoglycemic drugs; Z79.82 Long term (current) use of aspirin; Z79.899 Other long term (current) drug therapy
CPT/HCPCS: 36415; 93005; 80053; 84443; 82009; 83735; 84484; 85025; 71046; 99285; 96365; 96375; 96361; J2060; J3475

== ENCOUNTER 2021-10-31 05:11 | Emergency (ER) | payer MEDICARE, OTHER ==
[2021-10-31] MEDS ORDERED: SODIUM CHLORIDE 0.9% 1,000 ML IV STA (06:07)
--- NOTE | 2021-10-31 07:22 | ED ---
Abdominal Pain HPI - General Chief Complaint: Abdominal Pain Stated Complaint: Lower Back Pain Time Seen by Provider: 10/31/21 05:20 Source: patient, RN notes reviewed Mode of arrival: wheelchair Limitations: no limitations - History of Present Illness Initial Comments: This a 56-year-old male presents emergency Department chief complaint of low back pain. Patient states that he had multiple recent ER visits most recent visit showed evidence of acute kidney injury. Patient states that he did not follow-up with his PCP. Patient is stable and is very anxious, requesting medications for his anxiety. Patient states she's been eating and drinking okay no chest pain. Patient denies any fevers or chills no dysuria no hematuria denies any trauma. - Related Data Home Medications Medication Instructions Recorded Confirmed Multivitamins, Thera [Multivitamin 1 tab PO DAILY 10/07/21 10/31/21 (formulary)] cloNIDine HCL [Catapres] 0.1 mg PO HS 10/07/21 10/31/21 hydrOXYzine pamoate [Vistaril] 50 mg PO TID PRN 10/07/21 10/31/21 modafiniL [Provigil] 200 mg PO DAILY 10/19/21 10/31/21 Cyclobenzaprine [Flexeril] 10 mg PO TID PRN 10/26/21 10/31/21 Dulaglutide [Trulicity] 0.75 mg SQ TH 10/26/21 10/31/21 Previous Rx's Medication Instructions Recorded Aspirin EC [Ecotrin Low Dose] 81 mg PO DAILY 30 Days tab 08/17/21 Calcium Carbonate [Tums] 500 mg PO QID PRN 30 Days 08/17/21 Fenofibrate [Lofibra] 160 mg PO DAILY 30 Days tab 08/17/21 Ferrous Sulfate [Iron (65 MG 325 mg PO DAILY 30 Days tab 08/17/21 Elemental)] Gabapentin 800 mg PO TID 14 Days tab 08/17/21 Melatonin 10 mg PO HS 30 Days tablet 08/17/21 Mirtazapine [Remeron] 15 mg PO HS 30 Days tab 08/17/21 Naltrexone HCl [Revia] 50 mg PO DAILY 30 Days tab 08/17/21 Pantoprazole [Protonix] 40 mg PO HS 30 Days tab 08/17/21 Pravastatin Sodium [Pravachol] 40 mg PO HS 30 Days tab 08/17/21 Prazosin [Minipress] 5 mg PO HS 30 Days cap 08/17/21 Vitamin B Complex 1 cap PO DAILY 30 Days cap 08/17/21 Ziprasidone [Geodon] 40 mg PO BID 30 Days cap 08/17/21 busPIRone HCL 15 mg PO BID 30 Days tab 08/17/21 carvediloL [Coreg*] 12.5 mg PO BID 30 Days tab 08/17/21 clonazePAM [KlonoPIN] 1 mg PO BID PRN 14 Days tab 08/17/21 glipiZIDE [Glucotrol] 20 mg PO BID 30 Days tab 08/17/21 metFORMIN HCL [Glucophage] 1,000 mg PO BID 30 Days #60 tab 08/17/21 Allergies Allergy/AdvReac Type Severity Reaction Status Date / Time thimerosal Allergy Severe Rash/Hives/throat Verified 10/31/21 07:31 swelling neomycin Allergy Rash/Hives Verified 10/31/21 07:31 Review of Systems ROS Statement: Those systems with pertinent positive or pertinent negative responses have been documented in the HPI. ROS Other: All systems not noted in ROS Statement are negative. 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, neuropathy, anxiety History of Any Multi-Drug Resistant Organisms: None Reported Past Surgical History: Joint Replacement Additional Past Surgical History / Comment(s): bilateral cataract removed, Both hips replaced, right heal shattered- screws/plates/ pins, cardiac cath 06/18/20 Past Anesthesia/Blood Transfusion Reactions: No Reported Reaction Past Psychological History: Anxiety, Bipolar, Depression, Schizoaffective Disorder Smoking Status: Current every day smoker Past Alcohol Use History: None Reported Past Drug Use History: None Reported - Past Family History Father Family Medical History: Myocardial Infarction ([place]) Additional Family Medical History / Comment(s): mid 30's Mother Family Medical History: Dementia family Additional Family Medical History / Comment(s): anxiety General Exam General appearance: alert, in no apparent distress Head exam: Present: atraumatic, normocephalic, normal inspection Eye exam: Present: normal appearance, PERRL, EOMI. Absent: scleral icterus, conjunctival injection, periorbital swelling Pupils: Present: normal accommodation ENT exam: Present: normal exam, normal oropharynx, mucous membranes moist Neck exam: Present: normal inspection. Absent: tenderness, meningismus, lymphadenopathy Respiratory exam: Present: normal lung sounds bilaterally. Absent: respiratory distress, wheezes, rales, rhonchi, stridor Cardiovascular Exam: Present: normal rhythm, tachycardia, normal heart sounds. Absent: systolic murmur, diastolic murmur, rubs, gallop, clicks GI/Abdominal exam: Present: soft, normal bowel sounds. Absent: distended, tenderness, guarding, rebound, rigid Back exam: Present: CVA tenderness (L). Absent: CVA tenderness (R) Neurological exam: Present: alert, oriented X3 Course Vital Signs 10/31/21 10/31/21 05:21 07:21 Temperature 98.1 F 98.1 F Pulse Rate 128 H 81 Respiratory 18 18 Rate Blood Pressure 124/85 105/80 O2 Sat by Pulse 98 100 Oximetry Medical Decision Making - Medical Decision Making Patient's workup including labs, urinalysis, all son is negative. Patient heart rate has improved. Patient is positive for oxycodone those not on his normal medication list. Patient is advised to follow-up with his PCP in which she has a scheduled appointment return parameters were discussed. - Lab Data Result diagrams: 10/31/21 07:41 10/31/21 07:41 Lab Results 10/31/21 10/31/21 10/31/21 Range/Units 07:41 07:41 07:41 WBC 6.7 (3.8-10.6) k/uL RBC 4.18 L (4.30-5.90) m/uL Hgb 12.2 L (13.0-17.5) gm/dL Hct 38.2 L (39.0-53.0) % MCV 91.3 (80.0-100.0) fL MCH 29.3 (25.0-35.0) pg MCHC 32.1 (31.0-37.0) g/dL RDW 13.0 (11.5-15.5) % Plt Count 328 (150-450) k/uL MPV 7.3 Neutrophils % 56 % Lymphocytes % 26 % Monocytes % 7 % Eosinophils % 8 % Basophils % 1 % Neutrophils # 3.7 (1.3-7.7) k/uL Lymphocytes # 1.7 (1.0-4.8) k/uL Monocytes # 0.4 (0-1.0) k/uL Eosinophils # 0.5 (0-0.7) k/uL Basophils # 0.1 (0-0.2) k/uL Sodium (137-145) mmol/L Potassium (3.5-5.1) mmol/L Chloride (98-107) mmol/L Carbon Dioxide (22-30) mmol/L Anion Gap mmol/L BUN (9-20) mg/dL Creatinine (0.66-1.25) mg/dL Est GFR (CKD-EPI)AfAm (>60 ml/min/1.73 sqM) Est GFR (CKD-EPI)NonAf (>60 ml/min/1.73 sqM) Glucose (74-99) mg/dL Plasma Lactic Acid Ender 1.6 (0.7-2.0) mmol/L Calcium (8.4-10.2) mg/dL Total Bilirubin (0.2-1.3) mg/dL AST (17-59) U/L ALT (4-49) U/L Alkaline Phosphatase (38-126) U/L Total Protein (6.3-8.2) g/dL Albumin (3.5-5.0) g/dL Amylase (30-110) U/L Lipase (23-300) U/L Urine Color Yellow Urine Appearance Clear (Clear) Urine pH 6.0 (5.0-8.0) Ur Specific [place] 1.011 (1.001-1.035) Urine Protein Negative (Negative) Urine Glucose (UA) 3+ H (Negative) Urine Ketones Negative (Negative) Urine Blood Negative (Negative) Urine Nitrite Negative (Negative) Urine Bilirubin Negative (Negative) Urine Urobilinogen <2.0 (<2.0) mg/dL Ur Leukocyte Esterase Negative (Negative) Urine Opiates Screen (NotDetected) Ur Oxycodone Screen (NotDetected) Urine Methadone Screen (NotDetected) Ur Propoxyphene Screen (NotDetected) Ur Barbiturates Screen (NotDetected) U Tricyclic Antidepress (NotDetected) Ur Phencyclidine Scrn (NotDetected) Ur Amphetamines Screen (NotDetected) U Methamphetamines Scrn (NotDetected) U Benzodiazepines Scrn (NotDetected) Urine Cocaine Screen (NotDetected) U Marijuana (THC) Screen (NotDetected) 10/31/21 10/31/21 Range/Units 07:41 07:41 WBC (3.8-10.6) k/uL RBC (4.30-5.90) m/uL Hgb (13.0-17.5) gm/dL Hct (39.0-53.0) % MCV (80.0-100.0) fL MCH (25.0-35.0) pg MCHC (31.0-37.0) g/dL RDW (11.5-15.5) % Plt Count (150-450) k/uL MPV Neutrophils % % Lymphocytes % % Monocytes % % Eosinophils % % Basophils % % Neutrophils # (1.3-7.7) k/uL Lymphocytes # (1.0-4.8) k/uL Monocytes # (0-1.0) k/uL Eosinophils # (0-0.7) k/uL Basophils # (0-0.2) k/uL Sodium 139 (137-145) mmol/L Potassium 4.8 (3.5-5.1) mmol/L Chloride 101 (98-107) mmol/L Carbon Dioxide 27 (22-30) mmol/L Anion Gap 11 mmol/L BUN 15 (9-20) mg/dL Creatinine 1.35 H (0.66-1.25) mg/dL Est GFR (CKD-EPI)AfAm 67 (>60 ml/min/1.73 sqM) Est GFR (CKD-EPI)NonAf 58 (>60 ml/min/1.73 sqM) Glucose 131 H (74-99) mg/dL Plasma Lactic Acid Ender (0.7-2.0) mmol/L Calcium 9.7 (8.4-10.2) mg/dL Total Bilirubin 0.3 (0.2-1.3) mg/dL AST 40 (17-59) U/L ALT 38 (4-49) U/L Alkaline Phosphatase 50 (38-126) U/L Total Protein 7.5 (6.3-8.2) g/dL Albumin 4.5 (3.5-5.0) g/dL Amylase 62 (30-110) U/L Lipase 81 (23-300) U/L Urine Color Urine Appearance (Clear) Urine pH (5.0-8.0) Ur Specific [place] (1.001-1.035) Urine Protein (Negative) Urine Glucose (UA) (Negative) Urine Ketones (Negative) Urine Blood (Negative) Urine Nitrite (Negative) Urine Bilirubin (Negative) Urine Urobilinogen (<2.0) mg/dL Ur Leukocyte Esterase (Negative) Urine Opiates Screen Not Detected (NotDetected) Ur Oxycodone Screen Detected H (NotDetected) Urine Methadone Screen Not Detected (NotDetected) Ur Propoxyphene Screen Not Detected (NotDetected) Ur Barbiturates Screen Not Detected (NotDetected) U Tricyclic Antidepress Detected H (NotDetected) Ur Phencyclidine Scrn Not Detected (NotDetected) Ur Amphetamines Screen Not Detected (NotDetected) U Methamphetamines Scrn Not Detected (NotDetected) U Benzodiazepines Scrn Detected H (NotDetected) Urine Cocaine Screen Not Detected (NotDetected) U Marijuana (THC) Screen Not Detected (NotDetected) Disposition Clinical Impression: Abdominal pain Disposition: HOME SELF-CARE Condition: Stable Instructions (If sedation given, give patient instructions): Abdominal Pain (ED) Additional Instructions: Please return to the Emergency Department if symptoms worsen or any other concerns. Is patient prescribed a controlled substance at d/c from ED?: No Referrals: Marlen Mobley MD [Primary Care Provider] - 1-2 days Time of Disposition: 10:09
--- NOTE | 2021-10-31 08:26 | US ---
EXAMINATION TYPE: US kidneys/renal and bladder DATE OF EXAM: 10/31/2021 COMPARISON: NONE CLINICAL HISTORY: 56-year-old male pain , acute kidney injury TECHNIQUE: Multiple sonographic images of the kidneys and bladder are obtained. FINDINGS: EXAM MEASUREMENTS: Right Kidney: 10.0 x 5.3 x 4.1 cm Left Kidney: 11.1 x 4.2 x 4.0 cm Right Kidney: No hydronephrosis or masses seen Left Kidney: No hydronephrosis or masses seen Bladder: anechoic Bilateral Jets seen: Left only IMPRESSION: No hydronephrosis.
[2021-10-31 08:36] LABS: Albumin 4.5 g/dL (3.5-5.0); Calcium 9.7 mg/dL (8.4-10.2); Potassium 4.8 mmol/L (3.5-5.1); Total Bilirubin 0.3 mg/dL (0.2-1.3); Total Protein 7.5 g/dL (6.3-8.2)
[2021-10-31 08:44] LABS: Basophils # (A) 0.1 k/uL (0-0.2); Basophils % (A) 1 %; Eosinophils # (A) 0.5 k/uL (0-0.7); Eosinophils % (A) 8 %; HCT 38.2 % (39.0-53.0); HGB 12.2 gm/dL (13.0-17.5); Lymphocytes # (A) 1.7 k/uL (1.0-4.8); Lymphocytes % (A) 26 %; MCH 29.3 pg (25.0-35.0); MCHC 32.1 g/dL (31.0-37.0); MCV 91.3 fL (80.0-100.0); Mean Platelet Volume 7.3; Monocytes # (A) 0.4 k/uL (0-1.0); Monocytes % (A) 7 %; Neutrophils # (A) 3.7 k/uL (1.3-7.7); Neutrophils % (A) 56 %; Platelet Count 328 k/uL (150-450); RBC 4.18 m/uL (4.30-5.90); WBC 6.7 k/uL (3.8-10.6)
[2021-10-31 09:18] LABS: Appearance,Urine Clear (Clear); Bilirubin,Urine Negative (Negative); Blood,Urine Negative (Negative); Color,Urine Yellow; Glucose,Urine (UA) 3+ (Negative); Ketones,Urine Negative (Negative); Leukocyte Esterase,Urine Negative (Negative); Nitrite,Urine Negative (Negative); Protein,Urine Negative (Negative); Specific Gravity,Urine 1.011 (1.001-1.035); Urobilinogen,Urine <2.0 mg/dL (<2.0)
[2021-10-31 09:29] LABS: Amphetamine Screen,Urine Not Detected (NotDetected); Benzodiazepines Screen,Urine Detected (NotDetected); Cocaine Screen,Urine Not Detected (NotDetected); Opiate Screen,Urine Not Detected (NotDetected); Phencyclidine Screen,Urine Not Detected (NotDetected); Tricyclic Antidepressant,Urine Detected (NotDetected); Urn Cannabinoid Scrn Not Detected (NotDetected)
[2021-10-31 09:30] LABS: Barbiturate Screen,Urine Not Detected (NotDetected); Methadone Screen, Urine Not Detected (NotDetected); Oxycodone Screen, Urine Detected (NotDetected)
[2021-10-31 10:16] VITALS: BP 98/77; PULSE 91; RESP 16; TEMP 97.8
== END 2021-10-31 10:15 | disposition home or self-care (01) ==
LOC: EC 05:11
DX: R10.9 Unspecified abdominal pain (principal); E11.9 Type 2 diabetes mellitus without complications; I10 Essential (primary) hypertension; E78.5 Hyperlipidemia, unspecified; F17.200 Nicotine dependence, unspecified, uncomplicated; Z82.49 Family history of ischemic heart disease and other diseases of the circulatory system; Z88.7 Allergy status to serum and vaccine; Z88.1 Allergy status to other antibiotic agents
CPT/HCPCS: 36415; 76770; 80053; 80306; 81003; 82150; 83605; 83690; 85025; 93005

== ENCOUNTER 2021-11-01 04:56 | Emergency (ER) | payer MEDICARE, OTHER ==
[2021-11-01] MEDS ORDERED: LORazepam 2 MG/ML INJ IM STA (05:20)
--- NOTE | 2021-11-01 05:26 | ED ---
Anxiety HPI - General Chief Complaint: Chest Pain Stated Complaint: Anxiety, Chest Pain Time Seen by Provider: 11/01/21 05:02 Source: patient, RN notes reviewed, old records reviewed Mode of arrival: ambulatory Limitations: no limitations - History of Present Illness Initial Comments: This is a 56-year-old male who is well-known to our facility patient comes and diarrhea today for evaluation anxiety severe anxiety with history of severe anxiety patient also has history of some medication withdrawal is recently out of his anxiolysis medication at home. Patient has nausea no vomiting no shortness of breath no other new significant complaints. Patient states he just feels severely anxious he states he wakes up this way and would like something for anxiety is not homicidal or suicidal denies drugs or alcohol MD Complaint: anxiety, heart racing -: hour(s) Symptoms: palpitations Place: home Previous History of Same: Yes Severity: moderate Quality: constant Provoking factors: emotional stress, medication change Improves With: medication Worsens With: nothing Associated symptoms: palpitations - Related Data Home Medications: Home Medications Medication Instructions Recorded Confirmed Multivitamins, Thera [Multivitamin 1 tab PO DAILY 10/07/21 10/31/21 (formulary)] cloNIDine HCL [Catapres] 0.1 mg PO HS 10/07/21 10/31/21 hydrOXYzine pamoate [Vistaril] 50 mg PO TID PRN 10/07/21 10/31/21 modafiniL [Provigil] 200 mg PO DAILY 10/19/21 10/31/21 Cyclobenzaprine [Flexeril] 10 mg PO TID PRN 10/26/21 10/31/21 Dulaglutide [Trulicity] 0.75 mg SQ TH 10/26/21 10/31/21 Previous Rx's Medication Instructions Recorded Aspirin EC [Ecotrin Low Dose] 81 mg PO DAILY 30 Days tab 08/17/21 Calcium Carbonate [Tums] 500 mg PO QID PRN 30 Days 08/17/21 Fenofibrate [Lofibra] 160 mg PO DAILY 30 Days tab 08/17/21 Ferrous Sulfate [Iron (65 MG 325 mg PO DAILY 30 Days tab 08/17/21 Elemental)] Gabapentin 800 mg PO TID 14 Days tab 08/17/21 Melatonin 10 mg PO HS 30 Days tablet 08/17/21 Mirtazapine [Remeron] 15 mg PO HS 30 Days tab 08/17/21 Naltrexone HCl [Revia] 50 mg PO DAILY 30 Days tab 08/17/21 Pantoprazole [Protonix] 40 mg PO HS 30 Days tab 08/17/21 Pravastatin Sodium [Pravachol] 40 mg PO HS 30 Days tab 08/17/21 Prazosin [Minipress] 5 mg PO HS 30 Days cap 08/17/21 Vitamin B Complex 1 cap PO DAILY 30 Days cap 08/17/21 Ziprasidone [Geodon] 40 mg PO BID 30 Days cap 08/17/21 busPIRone HCL 15 mg PO BID 30 Days tab 08/17/21 carvediloL [Coreg*] 12.5 mg PO BID 30 Days tab 08/17/21 clonazePAM [KlonoPIN] 1 mg PO BID PRN 14 Days tab 08/17/21 glipiZIDE [Glucotrol] 20 mg PO BID 30 Days tab 08/17/21 metFORMIN HCL [Glucophage] 1,000 mg PO BID 30 Days #60 tab 08/17/21 Allergies/Adverse Reactions: Allergies Allergy/AdvReac Type Severity Reaction Status Date / Time thimerosal Allergy Severe Rash/Hives/throat Verified 11/01/21 05:01 swelling neomycin Allergy Rash/Hives Verified 11/01/21 05:01 Review of Systems ROS Statement: Those systems with pertinent positive or pertinent negative responses have been documented in the HPI. ROS Other: All systems not noted in ROS Statement are negative. 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, neuropathy, anxiety History of Any Multi-Drug Resistant Organisms: None Reported Past Surgical History: Joint Replacement Additional Past Surgical History / Comment(s): bilateral cataract removed, Both hips replaced, right heal shattered- screws/plates/ pins, cardiac cath 06/18/20 Past Anesthesia/Blood Transfusion Reactions: No Reported Reaction Past Psychological History: Anxiety, Bipolar, Depression, Schizoaffective Disorder Smoking Status: Current every day smoker Past Alcohol Use History: None Reported Past Drug Use History: None Reported - Past Family History Father Family Medical History: Myocardial Infarction ([place]) Additional Family Medical History / Comment(s): mid 30's Mother Family Medical History: Dementia family Additional Family Medical History / Comment(s): anxiety General Exam Limitations: no limitations General appearance: anxious Head exam: Present: atraumatic, normocephalic, normal inspection Eye exam: Present: normal appearance, PERRL, EOMI. Absent: scleral icterus, conjunctival injection, periorbital swelling ENT exam: Present: normal exam, mucous membranes moist Neck exam: Present: normal inspection. Absent: tenderness, meningismus, lymphadenopathy Respiratory exam: Present: normal lung sounds bilaterally. Absent: respiratory distress, wheezes, rales, rhonchi, stridor Cardiovascular Exam: Present: regular rate, normal rhythm, normal heart sounds. Absent: systolic murmur, diastolic murmur, rubs, gallop, clicks GI/Abdominal exam: Present: soft, normal bowel sounds. Absent: distended, tenderness, guarding, rebound, rigid Extremities exam: Present: normal inspection, full ROM, normal capillary refill. Absent: tenderness, pedal edema, joint swelling, calf tenderness Back exam: Present: normal inspection Neurological exam: Present: alert, oriented X3, CN II-XII intact Psychiatric exam: Present: normal affect, normal mood Skin exam: Present: warm, dry, intact, normal color. Absent: rash Course Vital Signs 11/01/21 11/01/21 11/01/21 04:57 05:45 06:25 Temperature 98.1 F 98.8 F Pulse Rate 131 H 89 Respiratory 22 18 18 Rate Blood Pressure 150/98 98/59 O2 Sat by Pulse 95 99 Oximetry - Reevaluation(s) Reevaluation #1: 11/01/21 Medical record is reviewed Reevaluation #2: 11/01/21 Patient informed of results and questions answered Reevaluation #3: 11/01/21 Patient increase his to taking anxiety medication here in the ER and then be di scharged home Medical Decision Making - Medical Decision Making 56 male severe anxiety coming in with anxiety reaction likely due to not having his home anxiety medication. Patient symptoms are improved. Not homicidal or suicidal and can be discharged home Disposition Clinical Impression: Atypical chest pain, Anxiety Disposition: HOME SELF-CARE Condition: Good Instructions (If sedation given, give patient instructions): Chest Pain (ED) Is patient prescribed a controlled substance at d/c from ED?: No Referrals: Marlen Mobley MD [Primary Care Provider] - 1-2 days Time of Disposition: 06:05
[2021-11-01 06:12] VITALS: RESP 18
[2021-11-01 06:26] VITALS: BP 98/59; PULSE 89; TEMP 98.8
== END 2021-11-01 06:25 | disposition home or self-care (01) ==
LOC: EC 04:56
DX: R07.89 Other chest pain (principal); F41.9 Anxiety disorder, unspecified; E11.9 Type 2 diabetes mellitus without complications; E78.5 Hyperlipidemia, unspecified; I10 Essential (primary) hypertension; F17.200 Nicotine dependence, unspecified, uncomplicated; Z82.49 Family history of ischemic heart disease and other diseases of the circulatory system; Z88.7 Allergy status to serum and vaccine; Z88.1 Allergy status to other antibiotic agents
CPT/HCPCS: 93005; 99284; 96372; J2060

== ENCOUNTER → 2021-11-30 | Outpatient (CLI) | payer MEDICARE, OTHER ==
--- NOTE | 2021-11-30 09:16 | US ---
EXAMINATION TYPE: US carotid duplex BILAT DATE OF EXAM: 11/30/2021 COMPARISON: NONE CLINICAL HISTORY: R42 DIZZINESS. Dizziness. Current smoker. Hx hypertension, hyperlipidemia. EXAM MEASUREMENTS: RIGHT: Peak Systolic Velocity (PSV) cm/sec ----- Right CCA: 52.4 ----- Right ICA: 88.6 ----- Right ECA: 95.3 ICA/CCA ratio: 1.7 RIGHT: End Diastole cm/sec ----- Right CCA: 19.6 ----- Right ICA: 24.8 ----- Right ECA: 22.8 LEFT: Peak Systolic Velocity (PSV) cm/sec ----- Left CCA: 66.8 ----- Left ICA: 83.4 ----- Left ECA: 87.5 ICA/CCA ratio: 1.2 LEFT: End Diastole cm/sec ----- Left CCA: 20.6 ----- Left ICA: 31.1 ----- Left ECA: 22.6 VERTEBRALS (direction of flow): Right Vertebral: Antegrade Left Vertebral: Limited evaluation, waveform appears to be antegrade. However, artifact is seen. Rhythm: Normal Plaque seen within bilateral bulbs and right prox ICA. No elevated velocities at this time. Limited e valuation of left vertebral. IMPRESSION: No hemodynamic significant stenosis either internal carotid artery identified. Criteria for Assigning % of Stenosis / Diameter reduction (Estimation based on the indirect measurements of the internal carotid artery velocities (ICA PSV). 1. Normal (no stenosis)=ICA PSV < 125 cm/s: ratio < 2.0: ICA EDV<40 cm/s. 2. Less than 50% stenosis=ICA PSV < 125 cm/s: ratio < 2.0: ICA EDV<40 cm/s. 3. 50 to 69% stenosis=ICA PSV of 125 to 230 cm/s: ration 2.0 ? 4.0: ICA EDV 40-100 cm/s. 4. Greater than 70% stenosis to near occlusion= ICA PSV > 230 cm/s: ratio > 4.0: ICA EDV > 100 cm/s. 5. Near occlusion= ICA PSV velocities may be low or undetectable: variable ratio and ICA EDV. 6. Total occlusion=unable to detect flow.
== END | disposition home or self-care (01) ==
LOC: RADUSWWP 08:10
PROVIDERS: ATTEND Family Medicine
DX: I65.23 Occlusion and stenosis of bilateral carotid arteries (principal)
CPT/HCPCS: 93880

== ENCOUNTER 2022-01-10 07:38 | Emergency (ER) | payer MEDICARE, OTHER ==
[2022-01-10 07:44] VITALS: TEMP 98
[2022-01-10] MEDS ORDERED: ALPRAZolam 0.25 MG TAB PO STA (08:02)
[2022-01-10] MEDS ORDERED: SODIUM CHLORIDE 0.9% 500 ML 500 ML IV STA (08:02)
[2022-01-10] MEDS ORDERED: SODIUM CHLORIDE 0.9% 1,000 ML IV STA (08:02)
--- NOTE | 2022-01-10 08:11 | ED ---
Recheck HPI - General Chief Complaint: Recheck/Abnormal Lab/Rx Stated Complaint: High BP Time Seen by Provider: 01/10/22 07:47 Source: patient, RN notes reviewed Mode of arrival: ambulatory Limitations: no limitations - History of Present Illness Initial Comments: 56-year-old male with a history of hypertension diabetes anxiety depression hyperlipidemia who states she's been having issues with his blood pressure intermittently acting up since he had coded. He states he woke up at 6:30 this morning his blood pressure 168/118 and bitemporal her headaches and some tingling in his right arm. The pain is had was about 7/10 in severity. Sharp in nature. No fevers chills sweats cough or other symptoms no change in medications no change in diet he states he states he did take a 0.1 mg Catapres this morning without much difference MD Complaint: other - Related Data Home Medications Medication Instructions Recorded Confirmed Multivitamins, Thera [Multivitamin 1 tab PO DAILY 10/07/21 01/10/22 (formulary)] cloNIDine HCL [Catapres] 0.1 mg PO HS 10/07/21 01/10/22 hydrOXYzine pamoate [Vistaril] 50 mg PO TID PRN 10/07/21 01/10/22 modafiniL [Provigil] 200 mg PO DAILY 10/19/21 01/10/22 Dulaglutide [Trulicity] 0.75 mg SQ DIRECTED 10/26/21 01/10/22 Gabapentin 800 mg PO QID 01/10/22 01/10/22 Nicotine 14Mg/24Hr Patch [Habitrol 1 patch TRANSDERM DAILY 01/10/22 01/10/22 14Mg/24Hr Patch] clonazePAM [KlonoPIN] 1 mg PO TID 01/10/22 01/10/22 traMADol HCL 50 mg PO Q6H PRN 01/10/22 01/10/22 Previous Rx's Medication Instructions Recorded Aspirin EC [Ecotrin Low Dose] 81 mg PO DAILY 30 Days tab 08/17/21 Calcium Carbonate [Tums] 500 mg PO QID PRN 30 Days 08/17/21 Fenofibrate [Lofibra] 160 mg PO DAILY 30 Days tab 08/17/21 Ferrous Sulfate [Iron (65 MG 325 mg PO DAILY 30 Days tab 08/17/21 Elemental)] Melatonin 10 mg PO HS 30 Days tablet 08/17/21 Mirtazapine [Remeron] 15 mg PO HS 30 Days tab 08/17/21 Naltrexone HCl [Revia] 50 mg PO DAILY 30 Days tab 08/17/21 Pantoprazole [Protonix] 40 mg PO HS 30 Days tab 08/17/21 Pravastatin Sodium [Pravachol] 40 mg PO HS 30 Days tab 08/17/21 Prazosin [Minipress] 5 mg PO HS 30 Days cap 08/17/21 Vitamin B Complex 1 cap PO DAILY 30 Days cap 08/17/21 Ziprasidone [Geodon] 40 mg PO BID 30 Days cap 08/17/21 busPIRone HCL 15 mg PO BID 30 Days tab 08/17/21 carvediloL [Coreg*] 12.5 mg PO BID 30 Days tab 08/17/21 glipiZIDE [Glucotrol] 20 mg PO BID 30 Days tab 08/17/21 metFORMIN HCL [Glucophage] 1,000 mg PO BID 30 Days #60 tab 08/17/21 Allergies Allergy/AdvReac Type Severity Reaction Status Date / Time thimerosal Allergy Severe Rash/Hives/throat Verified 01/10/22 08:40 swelling neomycin Allergy Rash/Hives Verified 01/10/22 08:40 Review of Systems ROS Statement: Those systems with pertinent positive or pertinent negative responses have been documented in the HPI. ROS Other: All systems not noted in ROS Statement are negative. 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, neuropathy, anxiety History of Any Multi-Drug Resistant Organisms: None Reported Past Surgical History: Joint Replacement Additional Past Surgical History / Comment(s): bilateral cataract removed, Both hips replaced, right heal shattered- screws/plates/ pins, cardiac cath 06/18/20 Past Anesthesia/Blood Transfusion Reactions: No Reported Reaction Past Psychological History: Anxiety, Bipolar, Depression, Schizoaffective Disorder Smoking Status: Current every day smoker Past Alcohol Use History: None Reported Past Drug Use History: None Reported - Past Family History Father Family Medical History: Myocardial Infarction ([place]) Additional Family Medical History / Comment(s): mid 30's Mother Family Medical History: Dementia family Additional Family Medical History / Comment(s): anxiety General Exam - General Exam Comments Initial Comments: This a well-developed well-nourished awake alert anxious appearing male Limitations: no limitations General appearance: alert, anxious Head exam: Present: atraumatic, normocephalic, normal inspection Eye exam: Present: normal appearance, PERRL, EOMI. Absent: scleral icterus, conjunctival injection, periorbital swelling ENT exam: Present: mucous membranes dry Neck exam: Present: normal inspection, tenderness (Some tenderness palpation of the paraspinous muscles no step-off no crepitation), full ROM, other (Discharge or bruits). Absent: meningismus, lymphadenopathy Respiratory exam: Present: normal lung sounds bilaterally. Absent: respiratory distress, wheezes, rales, rhonchi, stridor Cardiovascular Exam: Present: normal rhythm, tachycardia, normal heart sounds. Absent: systolic murmur, diastolic murmur, rubs, gallop, clicks GI/Abdominal exam: Present: soft, normal bowel sounds. Absent: distended, tenderness, guarding, rebound, rigid Extremities exam: Present: normal inspection, full ROM, normal capillary refill. Absent: tenderness, pedal edema, joint swelling, calf tenderness Back exam: Present: normal inspection Neurological exam: Present: alert, oriented X3, CN II-XII intact Psychiatric exam: Present: normal affect, normal mood Skin exam: Present: warm, dry, intact, normal color. Absent: rash Course Vital Signs 01/10/22 01/10/22 07:39 09:44 Temperature 98 F Pulse Rate 114 H 88 Respiratory 18 16 Rate Blood Pressure 155/112 131/97 O2 Sat by Pulse 98 96 Oximetry Medical Decision Making - Medical Decision Making Patient is feeling improved at this time blood pressure is improved patient be discharged some evidence of dehydration. - Lab Data Result diagrams: 01/10/22 08:12 01/10/22 08:12 Lab Results 01/10/22 01/10/22 Range/Units 08:12 08:12 WBC 11.1 H (3.8-10.6) k/uL RBC 4.09 L (4.30-5.90) m/uL Hgb 12.4 L (13.0-17.5) gm/dL Hct 37.7 L (39.0-53.0) % MCV 92.1 (80.0-100.0) fL MCH 30.4 (25.0-35.0) pg MCHC 33.0 (31.0-37.0) g/dL RDW 14.5 (11.5-15.5) % Plt Count 419 (150-450) k/uL MPV 7.0 Neutrophils % 71 % Lymphocytes % 18 % Monocytes % 5 % Eosinophils % 2 % Basophils % 0 % Neutrophils # 7.9 H (1.3-7.7) k/uL Lymphocytes # 2.0 (1.0-4.8) k/uL Monocytes # 0.6 (0-1.0) k/uL Eosinophils # 0.2 (0-0.7) k/uL Basophils # 0.0 (0-0.2) k/uL Sodium 141 (137-145) mmol/L Potassium 4.8 (3.5-5.1) mmol/L Chloride 106 (98-107) mmol/L Carbon Dioxide 19 L (22-30) mmol/L Anion Gap 16 mmol/L BUN 18 (9-20) mg/dL Creatinine 1.13 (0.66-1.25) mg/dL Est GFR (CKD-EPI)AfAm 83 (>60 ml/min/1.73 sqM) Est GFR (CKD-EPI)NonAf 72 (>60 ml/min/1.73 sqM) Glucose 115 H (74-99) mg/dL Calcium 9.8 (8.4-10.2) mg/dL Magnesium 1.8 (1.6-2.3) mg/dL Total Bilirubin 0.4 (0.2-1.3) mg/dL AST 31 (17-59) U/L ALT 20 (4-49) U/L Alkaline Phosphatase 78 (38-126) U/L Creatine Kinase 81 (55-170) U/L C-Reactive Protein 0.8 (<1.0) mg/dL Total Protein 7.6 (6.3-8.2) g/dL Albumin 4.6 (3.5-5.0) g/dL - EKG Data -: EKG Interpreted by Ak EKG shows normal: sinus rhythm EKG Comments: Sinus tachycardia rate of 102 MI interval 146 QRS duration 98 QT/QTC 350/[address]-T wave changes. Compared with 10/26/2021 no acute changes - Radiology Data Radiology results: report reviewed (Image reviewed no acute findings.), image reviewed Disposition Clinical Impression: Hypertension, Dehydration, Anxiety Disposition: HOME SELF-CARE Condition: Good Instructions (If sedation given, give patient instructions): Hypertension (ED), Dehydration (ED), Anxiety (ED) Is patient prescribed a controlled substance at d/c from ED?: No Referrals: Marlen Mobley MD [Primary Care Provider] - 1-2 days Decision Date: 01/10/22 Decision Time: 10:25
--- NOTE | 2022-01-10 08:25 | CT ---
EXAMINATION TYPE: CT brain wo con CT DLP: 1094.4 mGycm, Automated exposure control for dose reduction was used. DATE OF EXAM: 01/10/2022 8:20 AM COMPARISON: None. CLINICAL INDICATION:Male, 56 years old with history of Headache, acute, Headache TECHNIQUE: Brain: Axial CT images of the brain were obtained with coronal and sagittal reformats created and rev iewed. Contrast used: None. Oral contrast used: None. FINDINGS: Brain: Extra-axial spaces: No abnormal extra-axial fluid collections. Ventricular system: Within normal limits Cerebral parenchyma: No acute intraparenchymal hemorrhage or mass effect. The troncoso-white junction is well differentiated. Cerebellum: Unremarkable. Mass effect: No evidence of midline shift. Intracranial vasculature: unremarkable Soft tissues: Normal. Calvarium/osseous structures: No depressed skull fracture. Paranasal sinuses and mastoid air cells: Mild scattered paranasal sinus disease. Visualized orbits: Bilateral aphakia IMPRESSION: No acute intracranial process.
--- NOTE | 2022-01-10 08:51 | XR ---
EXAMINATION TYPE: XR chest 2V DATE OF EXAM: 01/10/2022 COMPARISON: 10/27/2021 TECHNIQUE: PA and lateral views submitted. HISTORY: Hypertension FINDINGS: The lungs are clear and there is no pneumothorax, pleural effusion, or focal pneumonia. Heart size normal. No overt failure. Hyperinflation suggests COPD. IMPRESSION: 1. No acute process.
[2022-01-10 08:53] LABS: Basophils % (A) 0 %; Eosinophils # (A) 0.2 k/uL (0-0.7); Eosinophils % (A) 2 %; HCT 37.7 % (39.0-53.0); HGB 12.4 gm/dL (13.0-17.5); Lymphocytes % (A) 18 %; MCH 30.4 pg (25.0-35.0); MCV 92.1 fL (80.0-100.0); Monocytes # (A) 0.6 k/uL (0-1.0); Monocytes % (A) 5 %; Neutrophils # (A) 7.9 k/uL (1.3-7.7); Neutrophils % (A) 71 %; Platelet Count 419 k/uL (150-450); RBC 4.09 m/uL (4.30-5.90); RDW 14.5 % (11.5-15.5); WBC 11.1 k/uL (3.8-10.6)
[2022-01-10 09:13] LABS: Albumin 4.6 g/dL (3.5-5.0); C Reactive Protein 0.8 mg/dL (<1.0); Calcium 9.8 mg/dL (8.4-10.2); Magnesium 1.8 mg/dL (1.6-2.3); Potassium 4.8 mmol/L (3.5-5.1); Total Bilirubin 0.4 mg/dL (0.2-1.3); Total Protein 7.6 g/dL (6.3-8.2)
[2022-01-10 10:20] VITALS: BP 131/97; PULSE 88; RESP 16
== END 2022-01-10 10:31 | disposition home or self-care (01) ==
LOC: EC 07:38
DX: I10 Essential (primary) hypertension (principal); F41.9 Anxiety disorder, unspecified; E86.0 Dehydration; E11.9 Type 2 diabetes mellitus without complications; E78.5 Hyperlipidemia, unspecified; F31.9 Bipolar disorder, unspecified; F17.200 Nicotine dependence, unspecified, uncomplicated; Z88.7 Allergy status to serum and vaccine; Z88.1 Allergy status to other antibiotic agents; Z79.82 Long term (current) use of aspirin; Z79.4 Long term (current) use of insulin; Z79.84 Long term (current) use of oral hypoglycemic drugs; Z79.899 Other long term (current) drug therapy
CPT/HCPCS: 36415; 70450; 71046; 80053; 82550; 83735; 85025; 86140; 93005; 96360; 96361; 99284

== ENCOUNTER → 2022-01-26 | Outpatient (CLI) | payer MEDICARE, OTHER ==
--- NOTE | 2022-01-26 14:18 | BD ---
EXAMINATION TYPE: Axial Bone Density DATE OF EXAM: 01/26/2022 COMPARISON: NONE CLINICAL HISTORY: 56 years year old Male. ICD-10 CODE: M85.88 OTHER DISORDER BONE DENSITY STRUCTURE Height: 66.25 Weight: 181.9 FRAX RISK QUESTIONS: Alcohol (3 or more units per day): NO Family History (Parent hip fracture): NO Glucocorticoids (More than 3mos): NO History of Fracture in Adulthood: RT OS CALCIS Secondary Osteoporosis: 1. Type 1 Diabetes: NO 2. Hyperthyroidism: NO 3. Menopause before 45: NA 4. Malnutrition: NO 5. Chronic liver disease: YES Rheumatoid Arthritis: NO Current Tobacco Use: YES RISK FACTORS HISTORY OF: Hip Fracture (Right/Left): NO Spine Fracture: NO History of Wrist Fracture: NO Surgery to Spine/Hip(right/left)/Wrist (right/left): BILATERAL HIP REPLACEMENTS-2018 Family History of Osteoporosis: MOTHER Active: NO Diet low in dairy products/other sources of calcium: NO Postmenopausal woman: NA Take estrogen and/or progesterone medications: NO Lost more than 2 inches in height since high school: NO Frequent falls: NO Poor Health: NO Hyperparathyroidism: NO Adrenal Insufficiency: NO MEDICATIONS: Prednisone or other steroids: NO Thyroid Medications: NO Osteoporosis Medications: NO Additional Medications: BP MEDS, CHOLESTEROL MEDS, DEPRESSION MEDS, BI-POLAR MEDS, REFLUX MEDS, VIT D , CALCIUM, MULTI VIT Additional History: EXAM MEASUREMENTS: Bone mineral densitometry was performed using the [employer] System. Bone mineral density as measured about the Lumbar spine is: ----- L1-L4(G/cm2): 1.387 T Score Values are as follows: ----- L1: 0.6 ----- L2: -0.7 ----- L3: 1.3 ----- L4: 4.4 ----- L1-L4: 1.7 BASELINE STUDY Bone mineral density about the L Wrist (g/cm2): 0.599 T Score values are as follows: -----Dist. R+U: 1.5 -----Prox. R+U: 0.7 -----Radius total: 1.4 BASELINE STUDY FRAX%s: NO FRX'S GIVEN DUE TO HIPS WERE NOT SCANNED. IMPRESSION: Normal (Values between +1 and -1 indicate normal bone mass). Consider repeating this study in 5 year s or sooner if there is some new clinical indication. NOTE: T-SCORE=SD OF THE YOUNG ADULT MEAN.
[2022-01-26 14:40] LABS: HCT 37.2 % (39.0-53.0); MCH 30.4 pg (25.0-35.0); MCHC 32.2 g/dL (31.0-37.0); MCV 94.4 fL (80.0-100.0); Mean Platelet Volume 8.2; Platelet Count 338 k/uL (150-450); RBC 3.94 m/uL (4.30-5.90); RDW 14.7 % (11.5-15.5)
[2022-01-26 14:58] LABS: ALT 29 U/L (4-49); AST 24 U/L (17-59); African American GFR (CKD) >90 (>60 ml/min/1.73 sqM); Albumin 4.2 g/dL (3.5-5.0); Alkaline Phosphatase 98 U/L (38-126); Anion Gap 16 mmol/L; Blood Urea Nitrogen 15 mg/dL (9-20); Calcium 9.6 mg/dL (8.4-10.2); Carbon Dioxide 20 mmol/L (22-30); Chloride 103 mmol/L (98-107); Glucose 148 mg/dL (74-99); Magnesium 1.6 mg/dL (1.6-2.3); Non-African American GFR(CKD) >90 (>60 ml/min/1.73 sqM); Phosphorus 3.7 mg/dL (2.5-4.5); Potassium 4.4 mmol/L (3.5-5.1); Sodium 139 mmol/L (137-145); Total Bilirubin 0.1 mg/dL (0.2-1.3); Total Protein 7.3 g/dL (6.3-8.2); Uric Acid 5.6 mg/dL (3.5-8.5)
[2022-01-26 19:46] LABS: Appearance,Urine Clear (Clear); Bilirubin,Urine Negative (Negative); Blood,Urine Negative (Negative); Color,Urine Yellow (Yellow); Ketones,Urine Negative (Negative); Nitrite,Urine Negative (Negative); PH, Urine 7.5 (5.0-8.0); Specific Gravity,Urine 1.013 (1.001-1.030); Urobilinogen,Urine 0.2 (0.2,1.0)
[2022-01-26 20:02] LABS: % Iron Saturation 17.79 (15.00-50.00); Iron 69 ug/dL (65-175); Total Iron Binding Capacity 388 ug/dL (228-460)
[2022-01-27 01:21] LABS: Microalbumin Creatinine Ratio <30 mg/g Creat (0-30); Urine Creatinine 43.3 mg/dL (39.0-259.0)
== END | disposition home or self-care (01) ==
LOC: RADBDWWP 12:42
PROVIDERS: ATTEND Family Medicine
DX: M85.88 Other specified disorders of bone density and structure, other site (principal); N17.9 Acute kidney failure, unspecified; E11.9 Type 2 diabetes mellitus without complications; D64.9 Anemia, unspecified; N39.0 Urinary tract infection, site not specified; N25.81 Secondary hyperparathyroidism of renal origin; E55.9 Vitamin D deficiency, unspecified; M10.9 Gout, unspecified
CPT/HCPCS: 77080; 80053; 81003; 82043; 82306; 82570; 82728; 83036; 83540; 83550; 83735; 83970; 84100; 84153; 84550; 85027

== ENCOUNTER → 2022-02-27 | Outpatient (CLI) | payer MEDICARE, OTHER ==
--- NOTE | 2022-02-27 14:09 | US ---
EXAMINATION TYPE: US kidneys/renal and bladder DATE OF EXAM: 02/27/2022 COMPARISON: US and CT CLINICAL HISTORY: N17.9 kidney injury. Pt states recent abnormal renal labs EXAM MEASUREMENTS: Right Kidney: 10.3 x 4.9 x 4.8 cm Left Kidney: 11.6 x 5.1 x 4.8 cm Right Kidney: Appeared wnl Left Kidney: Mild renal pelvis dilation Bladder: Thickened anterior wall on post void Bilateral Jets seen: Only right jet visualized Normal Post Void Residual: No, 70 ml IMPRESSION: Mild bladder wall thickening anteriorly. Findings may represent nondistention with underlying mass no t entirely excluded. Further evaluation with CT urogram is recommended with 15 minute delayed supine and prone imaging of the urinary bladder for complete evaluation.
== END | disposition home or self-care (01) ==
LOC: RADUSWWP 12:58
PROVIDERS: ATTEND Internal Medicine Nephrology
DX: N17.9 Acute kidney failure, unspecified (principal); N32.89 Other specified disorders of bladder
CPT/HCPCS: 76770

== ENCOUNTER 2022-03-30 06:14 | Emergency (ER) | payer MEDICARE, OTHER ==
[2022-03-30] MEDS ORDERED: NITROGLYCERIN SL TABS 0.4 MG TAB SUBLINGUAL STA (06:19)
[2022-03-30 06:32] VITALS: TEMP 98
[2022-03-30] MEDS ORDERED: LORazepam 2 MG/ML INJ IV STA (06:40)
[2022-03-30] MEDS ORDERED: SODIUM CHLORIDE 0.9% 1,000 ML IV STA ×2 (06:40→08:37)
--- NOTE | 2022-03-30 07:08 | ED ---
Chest Pain HPI - General Chief Complaint: Chest Pain Stated Complaint: Chest pain Time Seen by Provider: 03/30/22 06:18 Source: patient, EMS Mode of arrival: EMS Limitations: no limitations - History of Present Illness Initial Comments: This is a 57-year-old male with a past medical history of hypertension and hyperlipidemia who presents to the emergency department for chest pain. He was woken up at approximately 3 AM with substernal chest pain radiating into the right arm. He has associated shortness of breath. Denies any nausea or vomiting. He also feels very sweaty. He has no cardiac history. States that he did drink a pint of vodka last night. He was given aspirin and nitroglycerin by EMS on route with no relief. Denies any fevers, chills, sore throat, cough, palpitations, abdominal pain, nausea, vomiting, diarrhea, back pain, or headaches. MD Complaint: chest pain Pain Location: substernal Pain Radiation: RUE - Related Data Home Medications Medication Instructions Recorded Confirmed Multivitamins, Thera [Multivitamin 1 tab PO DAILY 10/07/21 01/10/22 (formulary)] cloNIDine HCL [Catapres] 0.1 mg PO HS 10/07/21 01/10/22 hydrOXYzine pamoate [Vistaril] 50 mg PO TID PRN 10/07/21 01/10/22 modafiniL [Provigil] 200 mg PO DAILY 10/19/21 01/10/22 Dulaglutide [Trulicity] 0.75 mg SQ DIRECTED 10/26/21 01/10/22 Gabapentin 800 mg PO QID 01/10/22 01/10/22 Nicotine 14Mg/24Hr Patch [Habitrol 1 patch TRANSDERM DAILY 01/10/22 01/10/22 14Mg/24Hr Patch] clonazePAM [KlonoPIN] 1 mg PO TID 01/10/22 01/10/22 traMADol HCL 50 mg PO Q6H PRN 01/10/22 01/10/22 Previous Rx's Medication Instructions Recorded Aspirin EC [Ecotrin Low Dose] 81 mg PO DAILY 30 Days tab 08/17/21 Calcium Carbonate [Tums] 500 mg PO QID PRN 30 Days 08/17/21 Fenofibrate [Lofibra] 160 mg PO DAILY 30 Days tab 08/17/21 Ferrous Sulfate [Iron (65 MG 325 mg PO DAILY 30 Days tab 08/17/21 Elemental)] Melatonin 10 mg PO HS 30 Days tablet 08/17/21 Mirtazapine [Remeron] 15 mg PO HS 30 Days tab 08/17/21 Naltrexone HCl [Revia] 50 mg PO DAILY 30 Days tab 08/17/21 Pantoprazole [Protonix] 40 mg PO HS 30 Days tab 08/17/21 Pravastatin Sodium [Pravachol] 40 mg PO HS 30 Days tab 08/17/21 Prazosin [Minipress] 5 mg PO HS 30 Days cap 08/17/21 Vitamin B Complex 1 cap PO DAILY 30 Days cap 08/17/21 Ziprasidone [Geodon] 40 mg PO BID 30 Days cap 08/17/21 busPIRone HCL 15 mg PO BID 30 Days tab 08/17/21 carvediloL [Coreg*] 12.5 mg PO BID 30 Days tab 08/17/21 glipiZIDE [Glucotrol] 20 mg PO BID 30 Days tab 08/17/21 metFORMIN HCL [Glucophage] 1,000 mg PO BID 30 Days #60 tab 08/17/21 Allergies Allergy/AdvReac Type Severity Reaction Status Date / Time thimerosal Allergy Severe Rash/Hives/throat Verified 01/10/22 13:52 swelling neomycin Allergy Rash/Hives Verified 01/10/22 13:52 Review of Systems ROS Statement: Those systems with pertinent positive or pertinent negative responses have been documented in the HPI. ROS Other: All systems not noted in ROS Statement are negative. EKG Findings - EKG Comments: EKG Findings:: Sinus tachycardia. Ventricular rate 122 bpm, [place] interval 144 ms, QRS duration 89 ms, QTC 362 ms. 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, neuropathy, anxiety History of Any Multi-Drug Resistant Organisms: None Reported Past Surgical History: Joint Replacement Additional Past Surgical History / Comment(s): bilateral cataract removed, Both hips replaced, right heal shattered- screws/plates/ pins, cardiac cath 06/18/20 Past Anesthesia/Blood Transfusion Reactions: No Reported Reaction Past Psychological History: Anxiety, Bipolar, Depression, Schizoaffective Disorder Smoking Status: Current every day smoker Past Alcohol Use History: None Reported Past Drug Use History: None Reported - Past Family History Father Family Medical History: Myocardial Infarction ([place]) Additional Family Medical History / Comment(s): mid 30's Mother Family Medical History: Dementia family Additional Family Medical History / Comment(s): anxiety General Exam Limitations: no limitations General appearance: alert, other (Diaphoretic and clammy) Head exam: Present: atraumatic, normocephalic, normal inspection Neck exam: Present: normal inspection. Absent: tenderness, meningismus, lymphadenopathy Respiratory exam: Present: other (Labored). Absent: wheezes, rales, rhonchi Cardiovascular Exam: Present: tachycardia Neurological exam: Present: alert, oriented X3, CN II-XII intact Psychiatric exam: Present: normal affect, normal mood Skin exam: Present: warm, dry, intact, normal color. Absent: rash Course Vital Signs 03/30/22 03/30/22 03/30/22 06:29 06:58 07:21 Temperature 98 F 98 F Pulse Rate 135 H 113 H 106 H Respiratory 20 18 Rate Blood Pressure 98/71 114/92 91/67 O2 Sat by Pulse 96 96 Oximetry Chest Pain MDM - MDM This is a 57-year-old male who presents to the emergency department for chest pain. Lab work reveals leukocytosis and multiple electrolyte irregularities likely related to dehydration. Patient's blood pressure started to drop as low as the 80s systolically and then increased to the low 100s and high 90s. ED attending Dr. Woods believes that this may be related to the nitroglycerin given by EMS and the patient may also be in alcohol withdrawals. He was given a liter bolus of normal saline and Ativan with good effect. First troponin is negative. Chest x-ray reveals no acute cardiopulmonary process. Patient will be admitted to medicine for alcohol withdrawals and multiple electrolyte ir regularities. Regarding the chest pain, he had a negative cardiac workup in September of this year. Will continue the patient on the CIWA protocol and rehydrate him for management of electrolytes. This case was discussed in detail with the attending ED physician. Presentation, findings, and treatment plan discussed in detail as well. Disposition Clinical Impression: Alcohol abuse with withdrawal, Hyperkalemia, Hypercalcemia Disposition: ADMITTED IP TO THIS HOSP Referrals: Marlen Mobley MD [Primary Care Provider] - 1-2 days
[2022-03-30 07:13] LABS: Basophils # (A) 0.1 k/uL (0-0.2); Basophils % (A) 1 %; Eosinophils # (A) 0.1 k/uL (0-0.7); Eosinophils % (A) 1 %; HCT 44.5 % (39.0-53.0); Lymphocytes # (A) 2.4 k/uL (1.0-4.8); Lymphocytes % (A) 15 %; MCHC 34.1 g/dL (31.0-37.0); Mean Platelet Volume 8.7; Monocytes # (A) 0.7 k/uL (0-1.0); Monocytes % (A) 5 %; Neutrophils # (A) 12.2 k/uL (1.3-7.7); Neutrophils % (A) 76 %; Platelet Count 385 k/uL (150-450); RDW 14.6 % (11.5-15.5)
[2022-03-30 07:22] VITALS: RESP 18
[2022-03-30 07:22] LABS: HGB 15.2 gm/dL (13.0-17.5)
[2022-03-30 07:26] LABS: INR 0.9 (<1.2)
[2022-03-30 07:27] LABS: Partial Thromboplastin Time 23.1 sec (22.0-30.0); Prothrombin Time 9.9 sec (9.0-12.0)
[2022-03-30 07:34] LABS: Albumin 5.1 g/dL (3.5-5.0); Calcium 12.8 mg/dL (8.4-10.2); Magnesium 1.5 mg/dL (1.6-2.3); Potassium 5.5 mmol/L (3.5-5.1); Total Bilirubin 0.8 mg/dL (0.2-1.3); Total Protein 8.3 g/dL (6.3-8.2)
--- NOTE | 2022-03-30 07:42 | XR ---
EXAMINATION TYPE: XR chest 2V DATE OF EXAM: 03/30/2022 COMPARISON: 01/10/2022 HISTORY: 57-year-old male with chest pain TECHNIQUE: AP and lateral views FINDINGS: Heart normal size. Aorta and pulmonary vasculature within normal limits. Body habitus resulting in nguyen zy peripheral densities. No consolidation or pleural effusion. Increased retrosternal clear space. IMPRESSION: Hyperinflation may relate to depth of inspiration or underlying emphysema. Otherwise, no acute proces s seen.
[2022-03-30] MEDS ORDERED: SODIUM CHLORIDE 0.9% 1,000 ML with THIAMINE 100 MG, FOLIC ACID 1 MG IV ONE ×3 (08:30)
[2022-03-30] MEDS ORDERED: THIAMINE 100 MG/ML 2 ML VIAL IM STA (08:38)
[2022-03-30] MEDS ORDERED: LORazepam 0.5 MG TAB PO PRN (08:38)
[2022-03-30] MEDS ORDERED: LORazepam 1 MG TAB PO PRN ×3 (08:38)
[2022-03-30 09:03] LABS: Appearance,Urine Clear (Clear); Bacteria,Urine Rare /hpf; Bilirubin,Urine Negative (Negative); Blood,Urine Negative (Negative); Color,Urine Yellow; Glucose,Urine (UA) Negative (Negative); Hyaline Casts,Urine 39 /lpf (0-2); Ketones,Urine 2+ (Negative); Leukocyte Esterase,Urine Negative (Negative); Mucus,Urine Rare /hpf; Nitrite,Urine Negative (Negative); PH, Urine 5.5 (5.0-8.0); Protein,Urine 1+ (Negative); RBC,Urine <1 /hpf (0-5); Specific Gravity,Urine 1.022 (1.001-1.035); Squamous Epithelial Cell,Urine <1 /hpf (0-4); Urobilinogen,Urine <2.0 mg/dL (<2.0); WBC,Urine <1 /hpf (0-5)
[2022-03-30 09:06] LABS: Amphetamine Screen,Urine Not Detected (NotDetected); Barbiturate Screen,Urine Not Detected (NotDetected); Benzodiazepines Screen,Urine Not Detected (NotDetected); Cocaine Screen,Urine Not Detected (NotDetected); Methadone Screen, Urine Not Detected (NotDetected); Opiate Screen,Urine Not Detected (NotDetected); Oxycodone Screen, Urine Not Detected (NotDetected); Phencyclidine Screen,Urine Not Detected (NotDetected); Tricyclic Antidepressant,Urine Detected (NotDetected); Urn Cannabinoid Scrn Not Detected (NotDetected)
[2022-03-30] MEDS ORDERED: ACETAMINOPHEN TAB 325 MG TAB PO PRN (09:16)
[2022-03-30] MEDS ORDERED: ONDANSETRON 4 MG/2 ML VIAL IVP PRN (09:16)
[2022-03-30] MEDS ORDERED: KETOROLAC 15 MG/ML 1 ML VIAL IVP PRN (09:16)
[2022-03-30] MEDS ORDERED: IBUPROFEN 400 MG TAB PO PRN (09:16)
[2022-03-30] MEDS ORDERED: NALOXONE 0.4 MG/ML 1 ML VIAL IV PRN (09:16)
[2022-03-30] MEDS ORDERED: PANTOPRAZOLE 40 MG/10 ML VIAL IV SCH (09:30)
[2022-03-30] MEDS ORDERED: SODIUM CHLORIDE 0.9% 1,000 ML IV SCH (09:30)
--- NOTE | 2022-03-30 10:40 | P.CONS ---
History of Present Illness - Reason for Consult Consult date: 03/30/22 - Chief Complaint chest pain, dyspnea - History of Present Illness History of Presenting Illness: Patient is a 57-year-old man with a history of hypertension, hyperlipidemia, anxiety/panic attacks who presented with chest pain. Patient says his pain woke him up from sleep in the middle the night and was associated with some shortness of breath as well. He denies having association with sweats, nausea, vomiting. This happened multiple times before, in the past has been worked up for coronary artery disease and had a completely negative left heart catheterization in 2020. Patient has issues with hypertension, but is compliant with his medications. Otherwise, he's been treated for anxiety with history of multiple panic attacks, reports feeling that his present episode of chest pain dyspnea resolved with Ativan while he is in the hospital. Normally when he has his issues he takes Klonopin 1 mg 3 times a day, however, he ran out of this medication and was unable to treat his panic attack which brought him to the hospital today. Patient denies fevers, chills, nausea, vomiting, palpitations, syncopal, presyncopal, abdominal pain, constipation, dysuria, dyschezia, diarrhea, numbness/weakness of extremities. In the emergency room, patient was afebrile 98/70, heart rate 135, 96% on room air. CBC had a leukocytosis of 16, otherwise unremarkable. Chemistry showed a sodium of 136, potassium 5.5, P1 at 41, creatinine 1.28. Liver function test showed total protein of 8.3, abdomen 5.1. Troponin was 0.012. BNP was 166. Coags were unremarkable. D-dimer was 0.56. Chest x-ray did not have any acute abnormalities, but did show hyperinflation consistent with emphysema. EKG shows sinus tachycardia with a normal axis, no ischemic changes. Patient was seen in consultation by medicine in the ER. Review of systems: Pertinent positives and negatives as discussed in HPI, a complete review of systems was performed and all other systems are negative. Physical exam: Vital signs reviewed and stable. General: Nontoxic, no distress and appears stated age. Derm: Skin warm and dry, normal coloration for ethnicity. Head: Atraumatic, normocephalic and symmetric. Eyes: EOMs intact, no lid lag, and anicteric sclera Mouth: no lip lesions, mucus membranes moist Cardiovascular: Tachycardic, regular rhythm with normal S1S2, no murmur, no pitting edema Lungs: Respirations even, regular, and unlabored on room air. Lungs CTA bilaterally, no rhonchi, no rales, no wheezing, and no accessory muscle usage. Abdominal: soft, nontender to palpation, no guarding, no appreciable organomegaly Ext: ROM intact. No gross muscle atrophy, no contractures Neuro: Speech clear, face symmetrical and CN II-XII grossly intact with no noted focal neuro deficits Psych: Alert and oriented to person, place, time, and situation. Appropriate and pleasant affect. Assessment and Plan of Care: Anxiety/panic attack -Patient felt back to baseline after 1 mg of Ativan -Counseled patient regarding follow-up with [facility] within 1-2 weeks -Discharge patient with 3 days worth of Klonopin, also recommended PCP follow-up -Continue BuSpar Acute kidney injury Hypercalcemia Hyperkalemia Leukocytosis History of alcohol abuse -Patient was counseled again regarding alcohol cessation -Alcohol use likely related to dehydration resulting in HPI, hypercalcemia, hyperkalemia, leukocytosis -Patient was given IV fluids, patient will hydrate at home, tolerating oral intake -No suspicion of infection -Repeat competency metabolic panel in 3 days, prescription provided Hypertension Hyperlipidemia -Resume home medications with no changes CODE STATUS: Full code DVT prophylaxis: Early ambulation Discussed with: Patient, nursing Anticipated discharge date: Today Anticipated discharge place: Home A total of 45 minutes was spent on the care of this complex patient more than 50% of the time was spent in counseling and care coordination.. I was present for 100% of the history and physical evaluation above as well as the medical decision-making, and I agree with the documented assessment findings above. 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, neuropathy, anxiety History of Any Multi-Drug Resistant Organisms: None Reported Past Surgical History: Joint Replacement Additional Past Surgical History / Comment(s): bilateral cataract removed, Both hips replaced, right heal shattered- screws/plates/ pins, cardiac cath 06/18/20 Past Anesthesia/Blood Transfusion Reactions: No Reported Reaction Past Psychological History: Anxiety, Bipolar, Depression, Schizoaffective Disorder Smoking Status: Current every day smoker Past Alcohol Use History: None Reported Past Drug Use History: None Reported - Past Family History Father Family Medical History: Myocardial Infarction ([place]) Additional Family Medical History / Comment(s): mid 30's Mother Family Medical History: Dementia family Additional Family Medical History / Comment(s): anxiety Medications and Allergies Home Medications Medication Instructions Recorded Confirmed Type Aspirin EC [Ecotrin Low Dose] 81 mg PO DAILY 30 Days tab 08/17/21 01/10/22 Rx Calcium Carbonate [Tums] 500 mg PO QID PRN 30 Days 08/17/21 01/10/22 Rx Fenofibrate [Lofibra] 160 mg PO DAILY 30 Days tab 08/17/21 01/10/22 Rx Ferrous Sulfate [Iron (65 MG 325 mg PO DAILY 30 Days tab 08/17/21 01/10/22 Rx Elemental)] Melatonin 10 mg PO HS 30 Days tablet 08/17/21 01/10/22 Rx Mirtazapine [Remeron] 15 mg PO HS 30 Days tab 08/17/21 01/10/22 Rx Naltrexone HCl [Revia] 50 mg PO DAILY 30 Days tab 08/17/21 01/10/22 Rx Pantoprazole [Protonix] 40 mg PO HS 30 Days tab 08/17/21 01/10/22 Rx Pravastatin Sodium [Pravachol] 40 mg PO HS 30 Days tab 08/17/21 01/10/22 Rx Prazosin [Minipress] 5 mg PO HS 30 Days cap 08/17/21 01/10/22 Rx Vitamin B Complex 1 cap PO DAILY 30 Days cap 08/17/21 01/10/22 Rx Ziprasidone [Geodon] 40 mg PO BID 30 Days cap 08/17/21 01/10/22 Rx busPIRone HCL 15 mg PO BID 30 Days tab 08/17/21 01/10/22 Rx carvediloL [Coreg*] 12.5 mg PO BID 30 Days tab 08/17/21 01/10/22 Rx glipiZIDE [Glucotrol] 20 mg PO BID 30 Days tab 08/17/21 01/10/22 Rx metFORMIN HCL [Glucophage] 1,000 mg PO BID 30 Days #60 tab 08/17/21 01/10/22 Rx Multivitamins, Thera [Multivitamin 1 tab PO DAILY 10/07/21 01/10/22 History (formulary)] cloNIDine HCL [Catapres] 0.1 mg PO HS 10/07/21 01/10/22 History hydrOXYzine pamoate [Vistaril] 50 mg PO TID PRN 10/07/21 01/10/22 History modafiniL [Provigil] 200 mg PO DAILY 10/19/21 01/10/22 History Dulaglutide [Trulicity] 0.75 mg SQ DIRECTED 10/26/21 01/10/22 History Gabapentin 800 mg PO QID 01/10/22 01/10/22 History Nicotine 14Mg/24Hr Patch [Habitrol 1 patch TRANSDERM DAILY 01/10/22 01/10/22 History 14Mg/24Hr Patch] traMADol HCL 50 mg PO Q6H PRN 01/10/22 01/10/22 History clonazePAM 1 mg PO TID 3 Days #9 tab 03/30/22 Rx Allergies Allergy/AdvReac Type Severity Reaction Status Date / Time thimerosal Allergy Severe Rash/Hives/throat Verified 01/10/22 13:52 swelling neomycin Allergy Rash/Hives Verified 01/10/22 13:52 Physical Exam Osteopathic Statement: *. No significant issues noted on an osteopathic structural exam other than those noted in the History and Physical/Consult. Vitals: Vital Signs Temp Pulse Resp BP Pulse Ox 03/30/22 07:21 98 F 106 H 18 91/67 96 03/30/22 06:58 113 H 114/92 03/30/22 06:29 98 F 135 H 20 98/71 96 Intake and Output 03/29/22 03/30/22 03/30/22 22:59 06:59 14:59 Other: Weight 83.915 kg Results CBC & Chem 7: 03/30/22 06:53 03/30/22 06:53 Labs: Abnormal Lab Results - Last 24 Hours (Table) 03/30/22 03/30/22 03/30/22 Range/Units 06:53 06:53 08:29 WBC 16.0 H (3.8-10.6) k/uL Neutrophils # 12.2 H (1.3-7.7) k/uL Sodium 136 L (137-145) mmol/L Potassium 5.5 H (3.5-5.1) mmol/L Chloride 94 L (98-107) mmol/L BUN 21 H (9-20) mg/dL Creatinine 1.28 H (0.66-1.25) mg/dL Glucose 161 H (74-99) mg/dL Calcium 12.8 H (8.4-10.2) mg/dL Magnesium 1.5 L (1.6-2.3) mg/dL Alkaline Phosphatase 134 H (38-126) U/L Total Protein 8.3 H (6.3-8.2) g/dL Albumin 5.1 H (3.5-5.0) g/dL Urine Protein 1+ H (Negative) Urine Ketones 2+ H (Negative) Urine Bacteria Rare H (None) /hpf Hyaline Casts 39 H (0-2) /lpf Urine Mucus Rare H (None) /hpf U Tricyclic Antidepress (NotDetected) 03/30/22 Range/Units 08:29 WBC (3.8-10.6) k/uL Neutrophils # (1.3-7.7) k/uL Sodium (137-145) mmol/L Potassium (3.5-5.1) mmol/L Chloride (98-107) mmol/L BUN (9-20) mg/dL Creatinine (0.66-1.25) mg/dL Glucose (74-99) mg/dL Calcium (8.4-10.2) mg/dL Magnesium (1.6-2.3) mg/dL Alkaline Phosphatase (38-126) U/L Total Protein (6.3-8.2) g/dL Albumin (3.5-5.0) g/dL Urine Protein (Negative) Urine Ketones (Negative) Urine Bacteria (None) /hpf Hyaline Casts (0-2) /lpf Urine Mucus (None) /hpf U Tricyclic Antidepress Detected H (NotDetected)
[2022-03-30 11:33] VITALS: BP 126/78; PULSE 100
[2022-03-31] MEDS ORDERED: THIAMINE 100 MG TAB PO SCH (09:00)
== END 2022-03-30 11:33 | disposition home or self-care (01) ==
LOC: EC 06:14 → 5NMEDONC 09:16 → UNDOADMIN 09:16 → EC 11:33
DX: F10.139 Alcohol abuse with withdrawal, unspecified (principal); E87.5 Hyperkalemia; E83.52 Hypercalcemia; E11.9 Type 2 diabetes mellitus without complications; I10 Essential (primary) hypertension; G47.30 Sleep apnea, unspecified; F17.200 Nicotine dependence, unspecified, uncomplicated; E78.5 Hyperlipidemia, unspecified; Z88.7 Allergy status to serum and vaccine; Z88.1 Allergy status to other antibiotic agents; Z79.82 Long term (current) use of aspirin; Z79.899 Other long term (current) drug therapy; Z20.822 Contact with and (suspected) exposure to COVID-19
CPT/HCPCS: 36415; 93005; 85379; 83880; 80053; 84443; 82150; 83690; 83735; 84484; 85025; 85610; 85730; 81001; 80306; 83970; 87502; 87635; 71046; 99285; 96374; 96361; G0480; J2060; 80320

== ENCOUNTER 2022-04-19 05:19 | Emergency (ER) | payer MEDICARE, OTHER ==
[2022-04-19 05:24] VITALS: RESP 18; TEMP 97.6
[2022-04-19] MEDS ORDERED: HYDROmorphone 1 MG/ML 1 ML SYRINGE IM STA (05:37)
[2022-04-19] MEDS ORDERED: diazePAM 5 MG TAB PO STA (05:37)
--- NOTE | 2022-04-19 05:37 | ED ---
Fall HPI - General Chief Complaint: Fall Stated Complaint: Fall, Back Injury Time Seen by Provider: 04/19/22 05:24 Source: patient, RN notes reviewed, old records reviewed Mode of arrival: ambulatory - History of Present Illness Initial Comments: This is a 49-year-old male who presented for fall. Patient admits on arrival to the emergency department room that he is here just her severe anxiety that woke up this morning is unable to follow back asleep history of the same. Patient states usually near the morning time is when the symptoms get worse for the does take medication before bed MD Complaint: fall -: minutes(s) Fall From: standing When Fall Occurred: unsure Fall Witnessed: no Place Fall Occurred: home Loss of Consciousness: none Prolonged Down Time?: no Symptoms Prior to Fall: none Severity: mild Severity scale (1-10): 1 Context: tripped/slipped Associated Symptoms: denies - Related Data Home Medications Medication Instructions Recorded Confirmed Multivitamins, Thera [Multivitamin 1 tab PO DAILY 10/07/21 04/25/22 (formulary)] modafiniL [Provigil] 200 mg PO DAILY 10/19/21 04/25/22 Gabapentin 800 mg PO QID 01/10/22 04/25/22 Nicotine 14Mg/24Hr Patch [Habitrol 1 patch TRANSDERM DAILY 01/10/22 04/25/22 14Mg/24Hr Patch] Cyclobenzaprine [Flexeril] 10 mg PO TID PRN 04/25/22 04/25/22 Dulaglutide [Trulicity] 3 mg SQ Q7D 04/25/22 04/25/22 Magnesium Oxide [Mag-Ox] 400 mg PO DAILY 04/25/22 04/25/22 Pregabalin [Lyrica] 50 mg PO TID 04/25/22 04/25/22 carvediloL [Coreg] 12.5 mg PO BID 04/25/22 04/25/22 clonazePAM 1 mg PO DIRECTED 04/25/22 04/25/22 Previous Rx's Medication Instructions Recorded Aspirin EC [Ecotrin Low Dose] 81 mg PO DAILY 30 Days tab 08/17/21 Calcium Carbonate [Tums] 500 mg PO QID PRN 30 Days 08/17/21 Ferrous Sulfate [Iron (65 MG 325 mg PO DAILY 30 Days tab 08/17/21 Elemental)] Melatonin 10 mg PO HS 30 Days tablet 08/17/21 Mirtazapine [Remeron] 15 mg PO HS 30 Days tab 08/17/21 Pantoprazole [Protonix] 40 mg PO HS 30 Days tab 08/17/21 Pravastatin Sodium [Pravachol] 40 mg PO HS 30 Days tab 08/17/21 Vitamin B Complex 1 cap PO DAILY 30 Days cap 08/17/21 Ziprasidone [Geodon] 40 mg PO BID 30 Days cap 08/17/21 busPIRone HCL 15 mg PO BID 30 Days tab 08/17/21 glipiZIDE [Glucotrol] 20 mg PO BID 30 Days tab 08/17/21 metFORMIN HCL [Glucophage] 1,000 mg PO BID 30 Days #60 tab 08/17/21 HYDROcodone/APAP 5-325MG [[place] 1 tab PO Q6HR PRN 3 Days #12 tab 04/20/22 5-325] chlordiazePOXIDE HCl [Librium] See Taper PO TID #20 capsule 04/26/22 Allergies Allergy/AdvReac Type Severity Reaction Status Date / Time thimerosal Allergy Severe Rash/Hives/throat Verified 04/27/22 12:02 swelling neomycin Allergy Rash/Hives Verified 04/27/22 12:02 Review of Systems ROS Statement: Those systems with pertinent positive or pertinent negative responses have been documented in the HPI. ROS Other: All systems not noted in ROS Statement are negative. 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, neuropathy, anxiety History of Any Multi-Drug Resistant Organisms: None Reported Past Surgical History: Joint Replacement Additional Past Surgical History / Comment(s): bilateral cataract removed, Both hips replaced, right heal shattered- screws/plates/ pins, cardiac cath 06/18/20 Past Anesthesia/Blood Transfusion Reactions: No Reported Reaction Past Psychological History: Anxiety, Bipolar, Depression, Schizoaffective Disorder Smoking Status: Current every day smoker Past Alcohol Use History: None Reported Past Drug Use History: None Reported - Past Family History Father Family Medical History: Myocardial Infarction ([place]) Additional Family Medical History / Comment(s): mid 30's Mother Family Medical History: Dementia family Additional Family Medical History / Comment(s): anxiety General Exam Limitations: no limitations General appearance: alert, in no apparent distress, anxious Head exam: Present: atraumatic, normocephalic, normal inspection Eye exam: Present: normal appearance, PERRL, EOMI. Absent: scleral icterus, conjunctival injection, periorbital swelling ENT exam: Present: normal exam, mucous membranes moist Neck exam: Present: normal inspection. Absent: tenderness, meningismus, lymphadenopathy Respiratory exam: Present: normal lung sounds bilaterally. Absent: respiratory distress, wheezes, rales, rhonchi, stridor Cardiovascular Exam: Present: regular rate, normal rhythm, normal heart sounds. Absent: systolic murmur, diastolic murmur, rubs, gallop, clicks GI/Abdominal exam: Present: soft, normal bowel sounds. Absent: distended, tenderness, guarding, rebound, rigid Extremities exam: Present: normal inspection, full ROM, normal capillary refill. Absent: tenderness, pedal edema, joint swelling, calf tenderness Back exam: Present: normal inspection Neurological exam: Present: alert, oriented X3, CN II-XII intact Psychiatric exam: Present: normal affect, normal mood Skin exam: Present: warm, dry, intact, normal color. Absent: rash Course Vital Signs 04/19/22 04/19/22 05:21 06:40 Temperature 97.6 F Pulse Rate 118 H 102 H Respiratory 18 18 Rate Blood Pressure 127/84 116/68 O2 Sat by Pulse 98 97 Oximetry - Reevaluation(s) Reevaluation #1: 04/19/22 medical record is reviewed patient symptoms improved here in the ED patient informed of results and questions answered Medical Decision Making - Medical Decision Making 49 male with significant anxiety likely also related alcohol withdrawal. Patient has no significant findings here in the ER otherwise. Patient can be discharged home Disposition Clinical Impression: Fall, Back pain Disposition: HOME SELF-CARE Condition: Good Instructions (If sedation given, give patient instructions): Fall Prevention for Older Adults (ED), Chronic Back Pain (DC) Is patient prescribed a controlled substance at d/c from ED?: No Referrals: Marlen Mobley MD [Primary Care Provider] - 1-2 days Time of Disposition: 06:35
[2022-04-19 06:40] VITALS: BP 116/68; PULSE 102
== END 2022-04-19 06:40 | disposition home or self-care (01) ==
LOC: EC 05:19
DX: M54.9 Dorsalgia, unspecified (principal); E11.9 Type 2 diabetes mellitus without complications; I10 Essential (primary) hypertension; F41.9 Anxiety disorder, unspecified; F31.9 Bipolar disorder, unspecified; F17.200 Nicotine dependence, unspecified, uncomplicated; Z79.84 Long term (current) use of oral hypoglycemic drugs; Z79.85 Long-term (current) use of injectable non-insulin antidiabetic drugs; Z88.7 Allergy status to serum and vaccine; Z88.1 Allergy status to other antibiotic agents; Z79.899 Other long term (current) drug therapy; W01.0XXA Fall on same level from slipping, tripping and stumbling without subsequent striking against object, initial encounter
CPT/HCPCS: 99283; 96372; J1170

== ENCOUNTER 2022-04-20 07:02 | Emergency (ER) | payer MEDICARE, OTHER ==
[2022-04-20] MEDS ORDERED: KETOROLAC 15 MG/ML 1 ML VIAL IM STA (07:10)
[2022-04-20] MEDS ORDERED: HYDROcodone/APAP 5-325MG 1 EACH TAB PO STA (07:10)
[2022-04-20] MEDS ORDERED: LIDOCAINE 5% PATCH TOPICAL ONE (07:10)
--- NOTE | 2022-04-20 07:22 | ED ---
Back Pain HPI - General Chief Complaint: Back Pain/Injury Stated Complaint: Back pain Time Seen by Provider: 04/20/22 07:06 Source: patient, RN notes reviewed Limitations: no limitations - History of Present Illness Initial Comments: This is a 57-year-old male who presents to the emergency department for lower back pain. States that last night, he slipped going down some stairs and ended up falling down for 5 steps. States that he is in significant pain but has not taken anything for his symptoms. Pain is primarily in the lower back. Denies any loss of bowel or bladder control or saddle anesthesia. He is scheduled for a lumbar fusion with Dr. Landers next month and is not on any regular pain medication. Denies any fevers, chills, sore throat, cough, dyspnea, chest pain, palpitations, abdominal pain, nausea, vomiting, diarrhea, or headaches. MD Complaint: back pain Onset/Timin -: days(s) Context: fall - Related Data Home Medications Medication Instructions Recorded Confirmed Multivitamins, Thera [Multivitamin 1 tab PO DAILY 10/07/21 01/10/22 (formulary)] cloNIDine HCL [Catapres] 0.1 mg PO HS 10/07/21 01/10/22 hydrOXYzine pamoate [Vistaril] 50 mg PO TID PRN 10/07/21 01/10/22 modafiniL [Provigil] 200 mg PO DAILY 10/19/21 01/10/22 Dulaglutide [Trulicity] 0.75 mg SQ DIRECTED 10/26/21 01/10/22 Gabapentin 800 mg PO QID 01/10/22 01/10/22 Nicotine 14Mg/24Hr Patch [Habitrol 1 patch TRANSDERM DAILY 01/10/22 01/10/22 14Mg/24Hr Patch] traMADol HCL 50 mg PO Q6H PRN 01/10/22 01/10/22 Previous Rx's Medication Instructions Recorded Aspirin EC [Ecotrin Low Dose] 81 mg PO DAILY 30 Days tab 08/17/21 Calcium Carbonate [Tums] 500 mg PO QID PRN 30 Days 08/17/21 Fenofibrate [Lofibra] 160 mg PO DAILY 30 Days tab 08/17/21 Ferrous Sulfate [Iron (65 MG 325 mg PO DAILY 30 Days tab 08/17/21 Elemental)] Melatonin 10 mg PO HS 30 Days tablet 08/17/21 Mirtazapine [Remeron] 15 mg PO HS 30 Days tab 08/17/21 Naltrexone HCl [Revia] 50 mg PO DAILY 30 Days tab 08/17/21 Pantoprazole [Protonix] 40 mg PO HS 30 Days tab 08/17/21 Pravastatin Sodium [Pravachol] 40 mg PO HS 30 Days tab 08/17/21 Prazosin [Minipress] 5 mg PO HS 30 Days cap 08/17/21 Vitamin B Complex 1 cap PO DAILY 30 Days cap 08/17/21 Ziprasidone [Geodon] 40 mg PO BID 30 Days cap 08/17/21 busPIRone HCL 15 mg PO BID 30 Days tab 08/17/21 carvediloL [Coreg*] 12.5 mg PO BID 30 Days tab 08/17/21 glipiZIDE [Glucotrol] 20 mg PO BID 30 Days tab 08/17/21 metFORMIN HCL [Glucophage] 1,000 mg PO BID 30 Days #60 tab 08/17/21 clonazePAM 1 mg PO TID 3 Days #9 tab 03/30/22 HYDROcodone/APAP 5-325MG [[place] 1 tab PO Q6HR PRN 3 Days #12 tab 04/20/22 5-325] Ketorolac [Toradol] 10 mg PO Q6HR PRN #20 tab 04/20/22 Lidocaine 5% Patch [Lidoderm 5% 1 patch TOPICAL DAILY PRN #30 patch 04/20/22 Patch] Allergies Allergy/AdvReac Type Severity Reaction Status Date / Time thimerosal Allergy Severe Rash/Hives/throat Verified 04/20/22 07:05 swelling neomycin Allergy Rash/Hives Verified 04/20/22 07:05 Review of Systems ROS Statement: Those systems with pertinent positive or pertinent negative responses have been documented in the HPI. ROS Other: All systems not noted in ROS Statement are negative. 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, neuropathy, anxiety History of Any Multi-Drug Resistant Organisms: None Reported Past Surgical History: Joint Replacement Additional Past Surgical History / Comment(s): bilateral cataract removed, Both hips replaced, right heal shattered- screws/plates/ pins, cardiac cath 06/18/20 Past Anesthesia/Blood Transfusion Reactions: No Reported Reaction Past Psychological History: Anxiety, Bipolar, Depression, Schizoaffective Disorder Smoking Status: Current every day smoker Past Alcohol Use History: None Reported Past Drug Use History: None Reported - Past Family History Father Family Medical History: Myocardial Infarction ([place]) Additional Family Medical History / Comment(s): mid 30's Mother Family Medical History: Dementia family Additional Family Medical History / Comment(s): anxiety General Exam Limitations: no limitations General appearance: alert, in distress Head exam: Present: atraumatic, normocephalic, normal inspection Respiratory exam: Present: normal lung sounds bilaterally. Absent: respiratory distress, wheezes, rales, rhonchi, stridor Cardiovascular Exam: Present: regular rate, normal rhythm, normal heart sounds. Absent: systolic murmur, diastolic murmur, rubs, gallop, clicks Back exam: Present: normal inspection, tenderness (Over the lumbar spine). Absent: full ROM Neurological exam: Present: alert, oriented X3, CN II-XII intact Psychiatric exam: Present: normal affect, normal mood Skin exam: Present: warm, dry, intact, normal color. Absent: rash Course Vital Signs 04/20/22 04/20/22 07:03 08:57 Temperature 98.5 F 98.2 F Pulse Rate 130 H 98 Respiratory 20 18 Rate Blood Pressure 118/83 120/86 O2 Sat by Pulse 99 96 Oximetry Medical Decision Making - Medical Decision Making This is a 57 year old male who presents to the emergency department for lower back pain. X-ray of the lumbar spine obtained and on my interpretation there are diffuse multilevel degenerative changes with no evidence of a new compression fracture. Patient's pain was managed in the emergency department. Prescription for lidocaine patches, [place], and Toradol provided. Advised that if he takes the Toradol, he should avoid ibuprofen or other [id number] anti-inflammatories. The [place] is to be taken very sparingly when his pain is the most severe, and I'm only willing to prescribe this due to the severity of the patient's lower back problems that were acutely exacerbated from this injury. Advised that this can be sedating, and he is instructed to avoid driving or operating machinery when taking this. Also instructed him to apply ice for 10-15 minutes every 2-3 hours and to follow-up with Dr. Landers. Return precautions reviewed in depth, the patient is instructed to return to the emergency department with any new, worsening, or concerning symptoms. Patient verbalized understanding. This case was discussed in detail with the attending ED physician. Presentation, findings, and treatment plan discussed in detail as well. - Radiology Data Radiology results: report reviewed, image reviewed Disposition Clinical Impression: Low back pain, Fall Disposition: HOME SELF-CARE Instructions (If sedation given, give patient instructions): Acute Low Back Pain (ED) Additional Instructions: Return to the emergency department with any new, worsening, or concerning symptoms. Apply ice for 10-15 minutes every 2-3 hours. You can take the Toradol with Tylenol for pain relief. If you choose to take the Toradol do not take [id number] ibuprofen or other anti-inflammatories. Take the [place] very sparingly when your pain is the most severe and avoid driving or operating machinery with this because it can be sedating. The lidocaine patches can also be used daily and should be left on for 12 hours a day. Follow up with your primary care provider in 1-2 days. Prescriptions: Lidocaine 5% Patch [Lidoderm 5% Patch] 1 patch TOPICAL DAILY PRN #30 patch PRN Reason: Pain HYDROcodone/APAP 5-325MG [[place] 5-325] 1 tab PO Q6HR PRN 3 Days #12 tab PRN Reason: Pain Ketorolac [Toradol] 10 mg PO Q6HR PRN #20 tab PRN Reason: Pain Is patient prescribed a controlled substance at d/c from ED?: Yes When asked, does pt state using other controlled substances?: Yes If prescribed controlled substance>3 days was MAPS reviewed?: Prescribed <3 Days Referrals: Marlen Mobley MD [Primary Care Provider] - 1-2 days
--- NOTE | 2022-04-20 07:32 | XR ---
Lumbar spine HISTORY: pain following fall COMPARISON: 02/16/2022. TECHNIQUE: 3 views lumbar spine were obtained. FINDINGS: There is been no interval change compared to the prior study. There is a grade 2 anterolisthesis of L3 on L4. There is a moderate compression fracture of L4 which is unchanged compared to previous. There is marked disc space narrowing and spondylosis at the L3-4 and L4-5 levels indicating marked de generative disc disease. The L1-2 and L2-3 disc spaces as well as the L5-S1 disc space is normal. There is marked facet arthro ramonita at the L3-4 and L4-5 levels. The sacrum and SI joints appear normal. There are bilateral hip prostheses. IMPRESSION: Marked degenerative changes at the L3-4 and L4-5 levels as described above. The findings are stable w hen compared to the prior study. Compared to the prior study there is no acute injury
[2022-04-20] MEDS ORDERED: ACET/COD 300 MG/30 MG STARTER PACK 6 TAB BTL PO STA (07:56)
[2022-04-20] MEDS ORDERED: IBUPROFEN 600 MG STARTER PACK 4 TAB BTL PO STA (07:56)
[2022-04-20] MEDS ORDERED: LORazepam 1 MG TAB PO STA (07:56)
[2022-04-20 08:58] VITALS: BP 120/86; PULSE 98; RESP 18; TEMP 98.2
== END 2022-04-20 08:58 | disposition home or self-care (01) ==
LOC: EC 07:02
DX: M54.50 Low back pain, unspecified (principal); F17.200 Nicotine dependence, unspecified, uncomplicated; E78.5 Hyperlipidemia, unspecified; I10 Essential (primary) hypertension; E11.40 Type 2 diabetes mellitus with diabetic neuropathy, unspecified; Z96.643 Presence of artificial hip joint, bilateral; Z88.1 Allergy status to other antibiotic agents; Z88.3 Allergy status to other anti-infective agents; Z79.82 Long term (current) use of aspirin; Z79.84 Long term (current) use of oral hypoglycemic drugs; Z79.899 Other long term (current) drug therapy; W10.9XXA Fall (on) (from) unspecified stairs and steps, initial encounter; Y92.89 Other specified places as the place of occurrence of the external cause
CPT/HCPCS: 72100; 99283; 96372; J1885

== ENCOUNTER 2022-04-21 02:18 | Emergency (ER) | payer MEDICARE, OTHER ==
[2022-04-21] MEDS ORDERED: PROCHLORPERAZINE 5 MG TAB PO STA (02:35)
[2022-04-21] MEDS ORDERED: LORazepam 1 MG TAB PO STA (02:35)
--- NOTE | 2022-04-21 02:36 | ED ---
Chest Pain HPI - General Chief Complaint: Chest Pain Stated Complaint: palpitations Time Seen by Provider: 04/21/22 02:33 Source: patient, RN notes reviewed, old records reviewed Mode of arrival: wheelchair Limitations: no limitations - History of Present Illness Initial Comments: This is a 49-year-old male well-known to our facility coming in for evaluation today. Patient Dese for evaluation regards to severe anxiety. Patient's visual from sleep tonight. He is unable to get back asleep became very anxious MD Complaint: chest pain, other (anxious) -: hour(s) Onset: during rest, during exertion, awoke with symptoms Pain Location: epigastric Severity: moderate Severity scale (1-10): 7 Quality: tightness Consistency: constant Improves With: nothing Worsens With: nothing Context: other (0) Anginal Symptoms: sense of impending doom Other Symptoms: palpitations Treatments Prior to Arrival: none - Related Data Home Medications Medication Instructions Recorded Confirmed Multivitamins, Thera [Multivitamin 1 tab PO DAILY 10/07/21 04/25/22 (formulary)] modafiniL [Provigil] 200 mg PO DAILY 10/19/21 04/25/22 Gabapentin 800 mg PO QID 01/10/22 04/25/22 Nicotine 14Mg/24Hr Patch [Habitrol 1 patch TRANSDERM DAILY 01/10/22 04/25/22 14Mg/24Hr Patch] Cyclobenzaprine [Flexeril] 10 mg PO TID PRN 04/25/22 04/25/22 Dulaglutide [Trulicity] 3 mg SQ Q7D 04/25/22 04/25/22 Magnesium Oxide [Mag-Ox] 400 mg PO DAILY 04/25/22 04/25/22 Pregabalin [Lyrica] 50 mg PO TID 04/25/22 04/25/22 carvediloL [Coreg] 12.5 mg PO BID 04/25/22 04/25/22 clonazePAM 1 mg PO DIRECTED 04/25/22 04/25/22 Previous Rx's Medication Instructions Recorded Aspirin EC [Ecotrin Low Dose] 81 mg PO DAILY 30 Days tab 08/17/21 Calcium Carbonate [Tums] 500 mg PO QID PRN 30 Days 08/17/21 Ferrous Sulfate [Iron (65 MG 325 mg PO DAILY 30 Days tab 08/17/21 Elemental)] Melatonin 10 mg PO HS 30 Days tablet 08/17/21 Mirtazapine [Remeron] 15 mg PO HS 30 Days tab 08/17/21 Pantoprazole [Protonix] 40 mg PO HS 30 Days tab 08/17/21 Pravastatin Sodium [Pravachol] 40 mg PO HS 30 Days tab 08/17/21 Vitamin B Complex 1 cap PO DAILY 30 Days cap 08/17/21 Ziprasidone [Geodon] 40 mg PO BID 30 Days cap 08/17/21 busPIRone HCL 15 mg PO BID 30 Days tab 08/17/21 glipiZIDE [Glucotrol] 20 mg PO BID 30 Days tab 08/17/21 metFORMIN HCL [Glucophage] 1,000 mg PO BID 30 Days #60 tab 08/17/21 HYDROcodone/APAP 5-325MG [[place] 1 tab PO Q6HR PRN 3 Days #12 tab 04/20/22 5-325] chlordiazePOXIDE HCl [Librium] See Taper PO TID #20 capsule 04/26/22 Allergies Allergy/AdvReac Type Severity Reaction Status Date / Time thimerosal Allergy Severe Rash/Hives/throat Verified 04/27/22 12:02 swelling neomycin Allergy Rash/Hives Verified 04/27/22 12:02 Review of Systems ROS Statement: Those systems with pertinent positive or pertinent negative responses have been documented in the HPI. ROS Other: All systems not noted in ROS Statement are negative. 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, neuropathy, anxiety History of Any Multi-Drug Resistant Organisms: None Reported Past Surgical History: Joint Replacement Additional Past Surgical History / Comment(s): bilateral cataract removed, Both hips replaced, right heal shattered- screws/plates/ pins, cardiac cath 06/18/20 Past Anesthesia/Blood Transfusion Reactions: No Reported Reaction Past Psychological History: Anxiety, Bipolar, Depression, Schizoaffective Disorder Smoking Status: Current every day smoker Past Alcohol Use History: None Reported Past Drug Use History: None Reported - Past Family History Father Family Medical History: Myocardial Infarction ([place]) Additional Family Medical History / Comment(s): mid 30's Mother Family Medical History: Dementia family Additional Family Medical History / Comment(s): anxiety General Exam General appearance: alert, in no apparent distress, anxious Head exam: Present: atraumatic, normocephalic, normal inspection Eye exam: Present: normal appearance, PERRL, EOMI. Absent: scleral icterus, conjunctival injection, periorbital swelling ENT exam: Present: normal exam, mucous membranes moist Neck exam: Present: normal inspection. Absent: tenderness, meningismus, lymphadenopathy Respiratory exam: Present: normal lung sounds bilaterally. Absent: respiratory distress, wheezes, rales, rhonchi, stridor Cardiovascular Exam: Present: regular rate, normal rhythm, normal heart sounds. Absent: systolic murmur, diastolic murmur, rubs, gallop, clicks GI/Abdominal exam: Present: soft, normal bowel sounds. Absent: distended, tenderness, guarding, rebound, rigid Extremities exam: Present: normal inspection, full ROM, normal capillary refill. Absent: tenderness, pedal edema, joint swelling, calf tenderness Back exam: Present: normal inspection Neurological exam: Present: alert, oriented X3, CN II-XII intact Psychiatric exam: Present: normal affect, normal mood Skin exam: Present: warm, dry, intact, normal color. Absent: rash Course Vital Signs 04/21/22 04/21/22 04/21/22 02:23 02:54 04:06 Temperature 97.6 F 97.8 F Pulse Rate 117 H 108 H Pulse Rate [ 107 H [place] ] Respiratory 16 18 Rate Blood Pressure 111/72 102/74 O2 Sat by Pulse 99 96 Oximetry - Reevaluation(s) Reevaluation #1: 04/21/22 medical record is reviewed patient symptoms improved here in the ED patient informed of results and questions answered Chest Pain MDM - MDM 57 male DF for evaluation of severe anxiety. Improved with anxiolysis and patient can be discharged home. Patient has history of same with multiple visits at this time of day Disposition Clinical Impression: Anxiety disorder Disposition: HOME SELF-CARE Condition: Fair Instructions (If sedation given, give patient instructions): Anxiety (ED) Is patient prescribed a controlled substance at d/c from ED?: No Referrals: Marlen Mobley MD [Primary Care Provider] - 1-2 days Time of Disposition: 03:45
[2022-04-21] MEDS ORDERED: diazePAM 5 MG TAB PO STA (03:42)
[2022-04-21 04:07] VITALS: BP 102/74; PULSE 108; RESP 18; TEMP 97.8
== END 2022-04-21 04:09 | disposition home or self-care (01) ==
LOC: EC 02:18
DX: F41.9 Anxiety disorder, unspecified (principal); E11.9 Type 2 diabetes mellitus without complications; I10 Essential (primary) hypertension; F31.9 Bipolar disorder, unspecified; F17.200 Nicotine dependence, unspecified, uncomplicated; Z88.7 Allergy status to serum and vaccine; Z88.1 Allergy status to other antibiotic agents; Z79.899 Other long term (current) drug therapy
CPT/HCPCS: 93005; 99284; S0183

== ENCOUNTER 2022-04-22 06:11 | Emergency (ER) | payer MEDICARE, OTHER ==
[2022-04-22 06:24] VITALS: BP 115/83; RESP 22; TEMP 97.2
[2022-04-22 06:25] VITALS: PULSE 122
[2022-04-22] MEDS ORDERED: clonazePAM 0.5 MG TAB PO STA (06:30)
--- NOTE | 2022-04-22 06:40 | ED ---
Anxiety HPI - General Chief Complaint: Anxiety Stated Complaint: panic attack Time Seen by Provider: 04/22/22 06:25 Source: patient, RN notes reviewed Mode of arrival: ambulatory - History of Present Illness Initial Comments: This is a 57-year-old male who presents to the emergency department for anxiety. Patient does have chronic anxiety and receives Klonopin as prescribed by [facility]. States that [facility] was closed yesterday due to the holidays, and he was unable to get his Klonopin refill. He is able to see [facility] in 2 days, on Sunday, but he is worried about making it through until then. Currently takes 1 mg in the morning and 2 mg at night. When he woke up this morning, he had severe anxiety, he tried to work through it himself, but was unable to do so. Patient is visibly shaking in the examination room. Denies any fevers, chills, sore throat, cough, dyspnea, chest pain, palpitations, abdominal pain, nausea, vomiting, diarrhea, back pain, or headaches. MD Complaint: anxiety Previous History of Same: Yes - Related Data Home Medications: Home Medications Medication Instructions Recorded Confirmed Multivitamins, Thera [Multivitamin 1 tab PO DAILY 10/07/21 01/10/22 (formulary)] cloNIDine HCL [Catapres] 0.1 mg PO HS 10/07/21 01/10/22 hydrOXYzine pamoate [Vistaril] 50 mg PO TID PRN 10/07/21 01/10/22 modafiniL [Provigil] 200 mg PO DAILY 10/19/21 01/10/22 Dulaglutide [Trulicity] 0.75 mg SQ DIRECTED 10/26/21 01/10/22 Gabapentin 800 mg PO QID 01/10/22 01/10/22 Nicotine 14Mg/24Hr Patch [Habitrol 1 patch TRANSDERM DAILY 01/10/22 01/10/22 14Mg/24Hr Patch] traMADol HCL 50 mg PO Q6H PRN 01/10/22 01/10/22 Previous Rx's Medication Instructions Recorded Aspirin EC [Ecotrin Low Dose] 81 mg PO DAILY 30 Days tab 08/17/21 Calcium Carbonate [Tums] 500 mg PO QID PRN 30 Days 08/17/21 Fenofibrate [Lofibra] 160 mg PO DAILY 30 Days tab 08/17/21 Ferrous Sulfate [Iron (65 MG 325 mg PO DAILY 30 Days tab 08/17/21 Elemental)] Melatonin 10 mg PO HS 30 Days tablet 08/17/21 Mirtazapine [Remeron] 15 mg PO HS 30 Days tab 08/17/21 Naltrexone HCl [Revia] 50 mg PO DAILY 30 Days tab 08/17/21 Pantoprazole [Protonix] 40 mg PO HS 30 Days tab 08/17/21 Pravastatin Sodium [Pravachol] 40 mg PO HS 30 Days tab 08/17/21 Prazosin [Minipress] 5 mg PO HS 30 Days cap 08/17/21 Vitamin B Complex 1 cap PO DAILY 30 Days cap 08/17/21 Ziprasidone [Geodon] 40 mg PO BID 30 Days cap 08/17/21 busPIRone HCL 15 mg PO BID 30 Days tab 08/17/21 carvediloL [Coreg*] 12.5 mg PO BID 30 Days tab 08/17/21 glipiZIDE [Glucotrol] 20 mg PO BID 30 Days tab 08/17/21 metFORMIN HCL [Glucophage] 1,000 mg PO BID 30 Days #60 tab 08/17/21 clonazePAM 1 mg PO TID 3 Days #9 tab 03/30/22 HYDROcodone/APAP 5-325MG [[place] 1 tab PO Q6HR PRN 3 Days #12 tab 04/20/22 5-325] Ketorolac [Toradol] 10 mg PO Q6HR PRN #20 tab 04/20/22 Lidocaine 5% Patch [Lidoderm 5% 1 patch TOPICAL DAILY PRN #30 patch 04/20/22 Patch] clonazePAM [KlonoPIN] 1 mg PO DIRECTED 3 Days #9 04/22/22 tablet Allergies/Adverse Reactions: Allergies Allergy/AdvReac Type Severity Reaction Status Date / Time thimerosal Allergy Severe Rash/Hives/throat Verified 04/22/22 06:21 swelling neomycin Allergy Rash/Hives Verified 04/22/22 06:21 Review of Systems ROS Statement: Those systems with pertinent positive or pertinent negative responses have been documented in the HPI. ROS Other: All systems not noted in ROS Statement are negative. 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 , neuropathy, anxiety, back pain History of Any Multi-Drug Resistant Organisms: None Reported Past Surgical History: Joint Replacement Additional Past Surgical History / Comment(s): bilateral cataract removed, Both hips replaced, right heal shattered- screws/plates/ pins, cardiac cath 06/18/20 Past Anesthesia/Blood Transfusion Reactions: No Reported Reaction Past Psychological History: Anxiety, Bipolar, Depression, Schizoaffective Disorder Smoking Status: Current every day smoker Past Alcohol Use History: None Reported Past Drug Use History: None Reported - Past Family History Father Family Medical History: Myocardial Infarction ([place]) Additional Family Medical History / Comment(s): mid 30's Mother Family Medical History: Dementia family Additional Family Medical History / Comment(s): anxiety General Exam Limitations: no limitations General appearance: alert, anxious Head exam: Present: atraumatic, normocephalic, normal inspection Respiratory exam: Present: normal lung sounds bilaterally. Absent: respiratory distress, wheezes, rales, rhonchi, stridor Cardiovascular Exam: Present: normal rhythm, tachycardia, normal heart sounds. Absent: systolic murmur, diastolic murmur, rubs, gallop, clicks Neurological exam: Present: alert, oriented X3, CN II-XII intact Psychiatric exam: Present: anxious Skin exam: Present: warm, dry, intact, normal color. Absent: rash Course Vital Signs 04/22/22 04/22/22 06:21 06:25 Temperature 97.2 F L Pulse Rate 142 H 122 H Respiratory 22 Rate Blood Pressure 115/83 O2 Sat by Pulse 100 Oximetry Medical Decision Making - Medical Decision Making This is a 49-year-old male who presents to the emergency department for anxiety. He was given a dose of Klonopin in the emergency department. 3 day course of Klonopin was prescribed to get him through until he is able to see [facility] on Sunday. Instructed him to follow up promptly, as he cannot continue to rely on the emergency department to prescribe his medication. He was also reminded that he needs to take his medication as prescribed and make sure that he is not running out of it early. Return precautions reviewed in depth, the patient is instructed to return to the emergency department with any new, worsening, or concerning symptoms. Patient verbalized understanding. This case was discussed in detail with the attending ED physician. Presentation, findings, and treatment plan discussed in detail as well. Disposition Clinical Impression: Panic attack, Anxiety disorder Disposition: HOME SELF-CARE Instructions (If sedation given, give patient instructions): Generalized Anxiety Disorder (ED) Additional Instructions: Return to the emergency department with any new, worsening, or concerning symptoms. Make sure that you are taking the Klonopin as prescribed and follow up with [facility] on Sunday for your medication refills. Follow up with your primary care provider in 1-2 days. Prescriptions: clonazePAM [KlonoPIN] 1 mg PO DIRECTED 3 Days #9 tablet Is patient prescribed a controlled substance at d/c from ED?: Yes When asked, does pt state using other controlled substances?: Yes If prescribed controlled substance>3 days was MAPS reviewed?: Prescribed <3 Days Referrals: None,Stated [Primary Care Provider] - 1-2 days
== END 2022-04-22 07:00 | disposition home or self-care (01) ==
LOC: EC 06:11
DX: F41.0 Panic disorder [episodic paroxysmal anxiety] (principal); F17.200 Nicotine dependence, unspecified, uncomplicated; E11.9 Type 2 diabetes mellitus without complications; I10 Essential (primary) hypertension; F31.9 Bipolar disorder, unspecified; G47.30 Sleep apnea, unspecified; E78.5 Hyperlipidemia, unspecified; Z88.7 Allergy status to serum and vaccine; Z88.1 Allergy status to other antibiotic agents; Z79.85 Long-term (current) use of injectable non-insulin antidiabetic drugs; Z79.82 Long term (current) use of aspirin
CPT/HCPCS: 99283

== ENCOUNTER 2022-04-24 10:52 | Emergency (ER) | payer MEDICARE, OTHER | END 2022-04-24 11:30 | LOC: EC 10:52 | DX: Z53.21 Procedure and treatment not carried out due to patient leaving prior to being seen by health care provider (principal) | CPT/HCPCS: 99499 ==

== ENCOUNTER 2022-04-24 12:54 | Emergency (ER) | payer MEDICARE, OTHER ==
[2022-04-24 13:49] VITALS: BP 92/65; PULSE 110; RESP 20; TEMP 98
== END 2022-04-24 13:46 | disposition left against medical advice (07) ==
LOC: EC 12:54
DX: Z53.21 Procedure and treatment not carried out due to patient leaving prior to being seen by health care provider (principal)
CPT/HCPCS: 93005; 99285; 99499

== ENCOUNTER 2022-04-25 03:10 | Emergency (ER) | payer MEDICARE, OTHER ==
[2022-04-25] MEDS ORDERED: LORazepam 1 MG TAB PO STA (04:31)
--- NOTE | 2022-04-25 04:32 | ED ---
Anxiety HPI - General Chief Complaint: Anxiety Stated Complaint: Panic attack Time Seen by Provider: 04/25/22 03:22 Source: patient Mode of arrival: ambulatory - History of Present Illness Initial Comments: 57-year-old male with past history of anxiety presents to the emergency department reporting a panic attack. Patient has been seen in the emergency room several times for similar complaint. States that he does have a prescription for Clonopin however took his last dose this morning. He was supposed to have an appointment with [facility] however states that his anxiety was ma edel him so anxious she could not make it to his appointment. Presents tonight as he has been unable to control his symptoms. States that he reschedule his [facility] appointment for tomorrow. Denies any suicidal or homicidal ideation - Related Data Home Medications: Home Medications Medication Instructions Recorded Confirmed Multivitamins, Thera [Multivitamin 1 tab PO DAILY 10/07/21 04/25/22 (formulary)] modafiniL [Provigil] 200 mg PO DAILY 10/19/21 04/25/22 Gabapentin 800 mg PO QID 01/10/22 04/25/22 Nicotine 14Mg/24Hr Patch [Habitrol 1 patch TRANSDERM DAILY 01/10/22 04/25/22 14Mg/24Hr Patch] Cyclobenzaprine [Flexeril] 10 mg PO TID PRN 04/25/22 04/25/22 Dulaglutide [Trulicity] 3 mg SQ Q7D 04/25/22 04/25/22 Magnesium Oxide [Mag-Ox] 400 mg PO DAILY 04/25/22 04/25/22 Pregabalin [Lyrica] 50 mg PO TID 04/25/22 04/25/22 carvediloL [Coreg] 12.5 mg PO BID 04/25/22 04/25/22 clonazePAM 1 mg PO DIRECTED 04/25/22 04/25/22 Previous Rx's Medication Instructions Recorded Aspirin EC [Ecotrin Low Dose] 81 mg PO DAILY 30 Days tab 08/17/21 Calcium Carbonate [Tums] 500 mg PO QID PRN 30 Days 08/17/21 Ferrous Sulfate [Iron (65 MG 325 mg PO DAILY 30 Days tab 08/17/21 Elemental)] Melatonin 10 mg PO HS 30 Days tablet 08/17/21 Mirtazapine [Remeron] 15 mg PO HS 30 Days tab 08/17/21 Pantoprazole [Protonix] 40 mg PO HS 30 Days tab 08/17/21 Pravastatin Sodium [Pravachol] 40 mg PO HS 30 Days tab 08/17/21 Vitamin B Complex 1 cap PO DAILY 30 Days cap 08/17/21 Ziprasidone [Geodon] 40 mg PO BID 30 Days cap 08/17/21 busPIRone HCL 15 mg PO BID 30 Days tab 08/17/21 glipiZIDE [Glucotrol] 20 mg PO BID 30 Days tab 08/17/21 metFORMIN HCL [Glucophage] 1,000 mg PO BID 30 Days #60 tab 08/17/21 HYDROcodone/APAP 5-325MG [[place] 1 tab PO Q6HR PRN 3 Days #12 tab 04/20/22 5-325] chlordiazePOXIDE HCl [Librium] See Taper PO TID #20 capsule 04/26/22 Allergies/Adverse Reactions: Allergies Allergy/AdvReac Type Severity Reaction Status Date / Time thimerosal Allergy Severe Rash/Hives/throat Verified 04/27/22 12:02 swelling neomycin Allergy Rash/Hives Verified 04/27/22 12:02 Review of Systems ROS Statement: Those systems with pertinent positive or pertinent negative responses have been documented in the HPI. ROS Other: All systems not noted in ROS Statement are negative. 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, neuropathy, anxiety, back pain History of Any Multi-Drug Resistant Organisms: None Reported Past Surgical History: Joint Replacement Additional Past Surgical History / Comment(s): bilateral cataract removed, Both hips replaced, right heal shattered- screws/plates/ pins, cardiac cath 06/18/20 Past Anesthesia/Blood Transfusion Reactions: No Reported Reaction Past Psychological History: Anxiety, Bipolar, Depression, Schizoaffective Disorder Smoking Status: Current every day smoker Past Alcohol Use History: None Reported Past Drug Use History: None Reported - Past Family History Father Family Medical History: Myocardial Infarction ([place]) Additional Family Medical History / Comment(s): mid 30's Mother Family Medical History: Dementia family Additional Family Medical History / Comment(s): anxiety General Exam General appearance: alert, anxious Head exam: Present: atraumatic, normocephalic, normal inspection Eye exam: Present: normal appearance, PERRL, EOMI. Absent: scleral icterus, conjunctival injection, periorbital swelling ENT exam: Present: normal exam, mucous membranes moist Neck exam: Present: normal inspection. Absent: tenderness, meningismus, lymphadenopathy Respiratory exam: Present: normal lung sounds bilaterally. Absent: respiratory distress, wheezes, rales, rhonchi, stridor Cardiovascular Exam: Present: regular rate, normal rhythm, normal heart sounds. Absent: systolic murmur, diastolic murmur, rubs, gallop, clicks GI/Abdominal exam: Present: soft, normal bowel sounds. Absent: distended, tenderness, guarding, rebound, rigid Extremities exam: Present: normal inspection, full ROM, normal capillary refill. Absent: tenderness, pedal edema, joint swelling, calf tenderness Back exam: Present: normal inspection Neurological exam: Present: alert, oriented X3, CN II-XII intact Psychiatric exam: Present: normal affect, normal mood Skin exam: Present: warm, dry, intact, normal color. Absent: rash Course Vital Signs 04/25/22 04/25/22 03:23 04:48 Temperature 98.3 F 98.6 F Pulse Rate 60 71 Respiratory 19 16 Rate Blood Pressure 96/76 110/75 O2 Sat by Pulse 100 98 Oximetry Medical Decision Making - Medical Decision Making Upon arrival patient was placed into room 14. Thorough history and physical exam was performed. He was given 1 dose of Ativan. Will be discharged home to follow up with [facility] for his medication refills. Stressed the importance of this. Patient agreeable and discharged home in stable condition Disposition Clinical Impression: Panic attack Disposition: HOME SELF-CARE Condition: Stable Instructions (If sedation given, give patient instructions): Generalized Anxiety Disorder (ED) Additional Instructions: Please follow-up today at [facility] for your prescription renewal Is patient prescribed a controlled substance at d/c from ED?: No Referrals: Marlen Mobley MD [Primary Care Provider] - 1-2 days Time of Disposition: 04:32
[2022-04-25 04:49] VITALS: BP 110/75; PULSE 71; RESP 16; TEMP 98.6
== END 2022-04-25 04:48 | disposition home or self-care (01) ==
LOC: EC 03:10
DX: F41.0 Panic disorder [episodic paroxysmal anxiety] (principal); F17.290 Nicotine dependence, other tobacco product, uncomplicated; F25.9 Schizoaffective disorder, unspecified; F31.9 Bipolar disorder, unspecified; E11.9 Type 2 diabetes mellitus without complications; E78.5 Hyperlipidemia, unspecified; I10 Essential (primary) hypertension; Z96.643 Presence of artificial hip joint, bilateral; Z88.1 Allergy status to other antibiotic agents; Z88.3 Allergy status to other anti-infective agents; Z79.85 Long-term (current) use of injectable non-insulin antidiabetic drugs; Z79.899 Other long term (current) drug therapy
CPT/HCPCS: 99283

== ENCOUNTER 2022-04-25 13:31 | Emergency (ER) | payer MEDICARE, OTHER ==
[2022-04-25 13:59] VITALS: RESP 18
--- NOTE | 2022-04-25 15:34 | XR ---
EXAMINATION TYPE: XR chest 2V DATE OF EXAM: 04/25/2022 COMPARISON: Chest x-ray March 30, 2022 HISTORY: Syncope and weakness. TECHNIQUE: Frontal and lateral views of the chest are obtained. FINDINGS: There is elevated and eventrated anterior aspect right hemidiaphragm. There is no suspiciou s focal air space opacity, pleural effusion, or pneumothorax seen. The cardiac silhouette size is st able and within normal limits. The osseous structures are intact. IMPRESSION: No acute cardiopulmonary process. No significant change from prior.
[2022-04-25 15:51] LABS: Basophils # (A) 0.1 k/uL (0-0.2); Basophils % (A) 0 %; Eosinophils # (A) 0.1 k/uL (0-0.7); Eosinophils % (A) 1 %; HCT 44.3 % (39.0-53.0); HGB 15.1 gm/dL (13.0-17.5); Lymphocytes # (A) 2.8 k/uL (1.0-4.8); Lymphocytes % (A) 24 %; MCH 31.2 pg (25.0-35.0); MCV 91.7 fL (80.0-100.0); Mean Platelet Volume 7.9; Monocytes # (A) 0.4 k/uL (0-1.0); Monocytes % (A) 4 %; Neutrophils # (A) 7.9 k/uL (1.3-7.7); Neutrophils % (A) 69 %; Platelet Count 368 k/uL (150-450); RBC 4.83 m/uL (4.30-5.90); RDW 14.7 % (11.5-15.5); WBC 11.5 k/uL (3.8-10.6)
[2022-04-25 16:02] LABS: ALT 37 U/L (4-49); AST 36 U/L (17-59); African American GFR (CKD) >90 (>60 ml/min/1.73 sqM); Albumin 5.3 g/dL (3.5-5.0); Alkaline Phosphatase 104 U/L (38-126); Anion Gap 19 mmol/L; Blood Urea Nitrogen 10 mg/dL (9-20); Calcium 9.6 mg/dL (8.4-10.2); Carbon Dioxide 17 mmol/L (22-30); Chloride 107 mmol/L (98-107); Glucose 78 mg/dL (74-99); Non-African American GFR(CKD) 87 (>60 ml/min/1.73 sqM); Potassium 4.3 mmol/L (3.5-5.1); Sodium 143 mmol/L (137-145); Total Bilirubin 0.3 mg/dL (0.2-1.3); Total Protein 8.5 g/dL (6.3-8.2)
[2022-04-25 16:26] LABS: Appearance,Urine Clear (Clear); Bilirubin,Urine Negative (Negative); Blood,Urine Negative (Negative); Color,Urine Colorless; Glucose,Urine (UA) Negative (Negative); Ketones,Urine Negative (Negative); Leukocyte Esterase,Urine Negative (Negative); Nitrite,Urine Negative (Negative); Protein,Urine Negative (Negative); Specific Gravity,Urine 1.004 (1.001-1.035); Urobilinogen,Urine <2.0 mg/dL (<2.0)
[2022-04-25 16:27] LABS: Alcohol 275 mg/dL
[2022-04-25 16:32] LABS: Prothrombin Time 10.6 sec (9.0-12.0)
[2022-04-25 16:33] LABS: Cocaine Screen,Urine Not Detected (NotDetected); Phencyclidine Screen,Urine Not Detected (NotDetected); Urn Cannabinoid Scrn Not Detected (NotDetected)
[2022-04-25 16:34] LABS: Amphetamine Screen,Urine Not Detected (NotDetected); Barbiturate Screen,Urine Not Detected (NotDetected); Benzodiazepines Screen,Urine Detected (NotDetected); Methadone Screen, Urine Not Detected (NotDetected); Opiate Screen,Urine Not Detected (NotDetected); Oxycodone Screen, Urine Not Detected (NotDetected); Tricyclic Antidepressant,Urine Detected (NotDetected)
[2022-04-25] MEDS ORDERED: clonazePAM 0.5 MG TAB PO STA (16:37)
--- NOTE | 2022-04-25 17:09 | ED ---
General Adult HPI - General Chief complaint: Syncope Stated complaint: AMS Time Seen by Provider: 04/25/22 14:48 Source: patient Mode of arrival: EMS Limitations: no limitations - History of Present Illness Initial comments: This patient is a 57-year-old man who presents here because his roommate told him he had passed out. The patient states she was sitting up in bed. He was going to use the bathroom but then his roommate told him that he seemed to pass out and collapsed back in bed. The patient states he does not feel like he was injured. There was no seizure activity noted. No incontinence. Patient does note he had been drinking earlier. Onset/Timin -: hour(s) Severity scale (1-10): 0 Consistency: constant Improves with: none Worsens with: none Associated Symptoms: syncope Treatments Prior to Arrival: none - Related Data Home Medications Medication Instructions Recorded Confirmed Multivitamins, Thera [Multivitamin 1 tab PO DAILY 10/07/21 04/25/22 (formulary)] modafiniL [Provigil] 200 mg PO DAILY 10/19/21 04/25/22 Gabapentin 800 mg PO QID 01/10/22 04/25/22 Nicotine 14Mg/24Hr Patch [Habitrol 1 patch TRANSDERM DAILY 01/10/22 04/25/22 14Mg/24Hr Patch] Cyclobenzaprine [Flexeril] 10 mg PO TID PRN 04/25/22 04/25/22 Dulaglutide [Trulicity] 3 mg SQ Q7D 04/25/22 04/25/22 Magnesium Oxide [Mag-Ox] 400 mg PO DAILY 04/25/22 04/25/22 Pregabalin [Lyrica] 50 mg PO TID 04/25/22 04/25/22 carvediloL [Coreg] 12.5 mg PO BID 04/25/22 04/25/22 clonazePAM 1 mg PO DIRECTED 04/25/22 04/25/22 Previous Rx's Medication Instructions Recorded Aspirin EC [Ecotrin Low Dose] 81 mg PO DAILY 30 Days tab 08/17/21 Calcium Carbonate [Tums] 500 mg PO QID PRN 30 Days 08/17/21 Ferrous Sulfate [Iron (65 MG 325 mg PO DAILY 30 Days tab 08/17/21 Elemental)] Melatonin 10 mg PO HS 30 Days tablet 08/17/21 Mirtazapine [Remeron] 15 mg PO HS 30 Days tab 08/17/21 Pantoprazole [Protonix] 40 mg PO HS 30 Days tab 08/17/21 Pravastatin Sodium [Pravachol] 40 mg PO HS 30 Days tab 08/17/21 Vitamin B Complex 1 cap PO DAILY 30 Days cap 08/17/21 Ziprasidone [Geodon] 40 mg PO BID 30 Days cap 08/17/21 busPIRone HCL 15 mg PO BID 30 Days tab 08/17/21 glipiZIDE [Glucotrol] 20 mg PO BID 30 Days tab 08/17/21 metFORMIN HCL [Glucophage] 1,000 mg PO BID 30 Days #60 tab 08/17/21 HYDROcodone/APAP 5-325MG [[place] 1 tab PO Q6HR PRN 3 Days #12 tab 04/20/22 5-325] Allergies Allergy/AdvReac Type Severity Reaction Status Date / Time thimerosal Allergy Severe Rash/Hives/throat Verified 04/25/22 13:59 swelling neomycin Allergy Rash/Hives Verified 04/25/22 13:59 Review of Systems ROS Statement: Those systems with pertinent positive or pertinent negative responses have been documented in the HPI. ROS Other: All systems not noted in ROS Statement are negative. Constitutional: Denies: fever, chills, weakness Eyes: Denies: vision change Respiratory: Denies: cough, dyspnea Cardiovascular: Reports: syncope. Denies: chest pain, palpitations, edema Gastrointestinal: Denies: abdominal pain, vomiting, diarrhea Genitourinary: Denies: dysuria Musculoskeletal: Denies: back pain Skin: Denies: rash Neurological: Denies: headache, weakness, numbness Past Medical History Past Medical History: Diabetes Mellitus, Hyperlipidemia, Hypertension, Sleep Apnea/CPAP/BIPAP Additional Past Medical History / Comment(s): hx bilateral hip 2017 replaceme nts, neuropathy, anxiety, back pain History of Any Multi-Drug Resistant Organisms: None Reported Past Surgical History: Joint Replacement Additional Past Surgical History / Comment(s): bilateral cataract removed, Both hips replaced, right heal shattered- screws/plates/ pins, cardiac cath 06/18/20 Past Anesthesia/Blood Transfusion Reactions: No Reported Reaction Past Psychological History: Anxiety, Bipolar, Depression, Schizoaffective Disorder Smoking Status: Current every day smoker Past Alcohol Use History: None Reported Past Drug Use History: None Reported - Past Family History Father Family Medical History: Myocardial Infarction ([place]) Additional Family Medical History / Comment(s): mid 30's Mother Family Medical History: Dementia family Additional Family Medical History / Comment(s): anxiety General Exam Limitations: no limitations General appearance: alert, in no apparent distress Head exam: Present: atraumatic, normocephalic Eye exam: Present: normal appearance, nystagmus. Absent: PERRL, EOMI, scleral icterus, conjunctival injection Neck exam: Present: normal inspection Respiratory exam: Present: normal lung sounds bilaterally. Absent: respiratory distress, wheezes, rales, rhonchi, stridor Cardiovascular Exam: Present: regular rate, normal rhythm, normal heart sounds. Absent: systolic murmur, diastolic murmur, rubs, gallop GI/Abdominal exam: Present: soft. Absent: distended, tenderness, guarding, rebound, rigid, mass Extremities exam: Present: normal inspection, normal capillary refill. Absent: pedal edema, calf tenderness Back exam: Present: normal inspection. Absent: CVA tenderness (R), CVA tenderness (L) Neurological exam: Present: alert Skin exam: Present: warm, dry, intact, normal color. Absent: rash Course Vital Signs 04/25/22 04/25/22 13:57 17:20 Temperature 98.3 F 97.3 F L Pulse Rate 88 77 Respiratory 18 18 Rate Blood Pressure 102/78 110/68 O2 Sat by Pulse 98 98 Oximetry Medical Decision Making - Medical Decision Making Patient's 57-year-old man here after he had passed out at home. Patient does admit to drinking and his alcohol level is elevated. On reevaluation he has no complaints. He would like to go home. The patient does have roommate there will who will be with him. He is able to stand at bedside and clinically appears well. Discussed appropriate further care and follow-up as well as advice to curb his drinking. - Lab Data Result diagrams: 04/25/22 15:23 04/25/22 15:23 Lab Results 04/25/22 04/25/22 04/25/22 Range/Units 15:23 15:23 15:23 WBC 11.5 H (3.8-10.6) k/uL RBC 4.83 (4.30-5.90) m/uL Hgb 15.1 (13.0-17.5) gm/dL Hct 44.3 (39.0-53.0) % MCV 91.7 (80.0-100.0) fL MCH 31.2 (25.0-35.0) pg MCHC 34.0 (31.0-37.0) g/dL RDW 14.7 (11.5-15.5) % Plt Count 368 (150-450) k/uL MPV 7.9 Neutrophils % 69 % Lymphocytes % 24 % Monocytes % 4 % Eosinophils % 1 % Basophils % 0 % Neutrophils # 7.9 H (1.3-7.7) k/uL Lymphocytes # 2.8 (1.0-4.8) k/uL Monocytes # 0.4 (0-1.0) k/uL Eosinophils # 0.1 (0-0.7) k/uL Basophils # 0.1 (0-0.2) k/uL PT 10.6 (9.0-12.0) sec INR 1.0 (<1.2) APTT 23.0 (22.0-30.0) sec Sodium 143 (137-145) mmol/L Potassium 4.3 (3.5-5.1) mmol/L Chloride 107 (98-107) mmol/L Carbon Dioxide 17 L (22-30) mmol/L Anion Gap 19 mmol/L BUN 10 (9-20) mg/dL Creatinine 0.96 (0.66-1.25) mg/dL Est GFR (CKD-EPI)AfAm >90 (>60 ml/min/1.73 sqM) Est GFR (CKD-EPI)NonAf 87 (>60 ml/min/1.73 sqM) Glucose 78 (74-99) mg/dL Calcium 9.6 (8.4-10.2) mg/dL Total Bilirubin 0.3 (0.2-1.3) mg/dL AST 36 (17-59) U/L ALT 37 (4-49) U/L Alkaline Phosphatase 104 (38-126) U/L Troponin I (0.000-0.034) ng/mL Total Protein 8.5 H (6.3-8.2) g/dL Albumin 5.3 H (3.5-5.0) g/dL Urine Color Urine Appearance (Clear) Urine pH (5.0-8.0) Ur Specific [place] (1.001-1.035) Urine Protein (Negative) Urine Glucose (UA) (Negative) Urine Ketones (Negative) Urine Blood (Negative) Urine Nitrite (Negative) Urine Bilirubin (Negative) Urine Urobilinogen (<2.0) mg/dL Ur Leukocyte Esterase (Negative) Urine Opiates Screen (NotDetected) Ur Oxycodone Screen (NotDetected) Urine Methadone Screen (NotDetected) Ur Propoxyphene Screen (NotDetected) Ur Barbiturates Screen (NotDetected) U Tricyclic Antidepress (NotDetected) Ur Phencyclidine Scrn (NotDetected) Ur Amphetamines Screen (NotDetected) U Methamphetamines Scrn (NotDetected) U Benzodiazepines Scrn (NotDetected) Urine Cocaine Screen (NotDetected) U Marijuana (THC) Screen (NotDetected) Serum Alcohol 275 H* mg/dL 04/25/22 04/25/22 Range/Units 15:23 15:47 WBC (3.8-10.6) k/uL RBC (4.30-5.90) m/uL Hgb (13.0-17.5) gm/dL Hct (39.0-53.0) % MCV (80.0-100.0) fL MCH (25.0-35.0) pg MCHC (31.0-37.0) g/dL RDW (11.5-15.5) % Plt Count (150-450) k/uL MPV Neutrophils % % Lymphocytes % % Monocytes % % Eosinophils % % Basophils % % Neutrophils # (1.3-7.7) k/uL Lymphocytes # (1.0-4.8) k/uL Monocytes # (0-1.0) k/uL Eosinophils # (0-0.7) k/uL Basophils # (0-0.2) k/uL PT (9.0-12.0) sec INR (<1.2) APTT (22.0-30.0) sec Sodium (137-145) mmol/L Potassium (3.5-5.1) mmol/L Chloride (98-107) mmol/L Carbon Dioxide (22-30) mmol/L Anion Gap mmol/L BUN (9-20) mg/dL Creatinine (0.66-1.25) mg/dL Est GFR (CKD-EPI)AfAm (>60 ml/min/1.73 sqM) Est GFR (CKD-EPI)NonAf (>60 ml/min/1.73 sqM) Glucose (74-99) mg/dL Calcium (8.4-10.2) mg/dL Total Bilirubin (0.2-1.3) mg/dL AST (17-59) U/L ALT (4-49) U/L Alkaline Phosphatase (38-126) U/L Troponin I <0.012 (0.000-0.034) ng/mL Total Protein (6.3-8.2) g/dL Albumin (3.5-5.0) g/dL Urine Color Colorless Urine Appearance Clear (Clear) Urine pH 5.0 (5.0-8.0) Ur Specific [place] 1.004 (1.001-1.035) Urine Protein Negative (Negative) Urine Glucose (UA) Negative (Negative) Urine Ketones Negative (Negative) Urine Blood Negative (Negative) Urine Nitrite Negative (Negative) Urine Bilirubin Negative (Negative) Urine Urobilinogen <2.0 (<2.0) mg/dL Ur Leukocyte Esterase Negative (Negative) Urine Opiates Screen Not Detected (NotDetected) Ur Oxycodone Screen Not Detected (NotDetected) Urine Methadone Screen Not Detected (NotDetected) Ur Propoxyphene Screen Not Detected (NotDetected) Ur Barbiturates Screen Not Detected (NotDetected) U Tricyclic Antidepress Detected H (NotDetected) Ur Phencyclidine Scrn Not Detected (NotDetected) Ur Amphetamines Screen Not Detected (NotDetected) U Methamphetamines Scrn Not Detected (NotDetected) U Benzodiazepines Scrn Detected H (NotDetected) Urine Cocaine Screen Not Detected (NotDetected) U Marijuana (THC) Screen Not Detected (NotDetected) Serum Alcohol mg/dL Disposition Clinical Impression: Alcohol intoxication Disposition: HOME SELF-CARE Condition: Fair Instructions (If sedation given, give patient instructions): Alcohol Intoxication (DC) Is patient prescribed a controlled substance at d/c from ED?: No Referrals: Marlen Mobley MD [Primary Care Provider] - 1-2 days
[2022-04-25 17:21] VITALS: BP 110/68; PULSE 77; TEMP 97.3
== END 2022-04-25 17:20 | disposition home or self-care (01) ==
LOC: EC 13:31
DX: F10.129 Alcohol abuse with intoxication, unspecified (principal); E11.40 Type 2 diabetes mellitus with diabetic neuropathy, unspecified; I10 Essential (primary) hypertension; G47.30 Sleep apnea, unspecified; F41.9 Anxiety disorder, unspecified; F31.9 Bipolar disorder, unspecified; F17.200 Nicotine dependence, unspecified, uncomplicated; Z88.7 Allergy status to serum and vaccine; Z88.1 Allergy status to other antibiotic agents; Z79.84 Long term (current) use of oral hypoglycemic drugs; Z79.4 Long term (current) use of insulin; Z79.899 Other long term (current) drug therapy
CPT/HCPCS: 36415; 80053; 84484; 85025; 85610; 85730; 81003; 80306; 71046; 99284; G0480; 80320

== ENCOUNTER 2022-04-26 01:34 | Emergency (ER) | payer MEDICARE, OTHER ==
[2022-04-26 02:10] VITALS: BP 117/84; PULSE 120; RESP 18; TEMP 98
[2022-04-26] MEDS ORDERED: clonazePAM 0.5 MG TAB PO STA (03:59)
--- NOTE | 2022-04-26 04:14 | ED ---
General Adult HPI - General Chief complaint: Alcohol Stated complaint: alcohol withdrawals Time Seen by Provider: 04/26/22 02:15 Source: patient Mode of arrival: ambulatory - History of Present Illness Initial comments: [id number] male with past history of anxiety, heavy daily alcohol abuse who presents to the emergency room reporting alcohol withdrawal. Patient was seen in the emergency department today for an episode of unresponsiveness. Laboratory studies were completed which were within normal limits. Patient was discharged home. States that he was drinking prior to the visit and when he went home he has not had anything to drink. He now feels like he is in alcohol withdrawal. He does have a prescription for Klonopin. States that his appointment today at [facility] was to refill his Klonopin however he could not make it as he was hospitalized here. He denies nausea or vomiting. Admits to tremulousness. Has planned to go to rehab. No other alleviating, precipitating modifying factors - Related Data Home Medications Medication Instructions Recorded Confirmed Multivitamins, Thera [Multivitamin 1 tab PO DAILY 10/07/21 04/25/22 (formulary)] modafiniL [Provigil] 200 mg PO DAILY 10/19/21 04/25/22 Gabapentin 800 mg PO QID 01/10/22 04/25/22 Nicotine 14Mg/24Hr Patch [Habitrol 1 patch TRANSDERM DAILY 01/10/22 04/25/22 14Mg/24Hr Patch] Cyclobenzaprine [Flexeril] 10 mg PO TID PRN 04/25/22 04/25/22 Dulaglutide [Trulicity] 3 mg SQ Q7D 04/25/22 04/25/22 Magnesium Oxide [Mag-Ox] 400 mg PO DAILY 04/25/22 04/25/22 Pregabalin [Lyrica] 50 mg PO TID 04/25/22 04/25/22 carvediloL [Coreg] 12.5 mg PO BID 04/25/22 04/25/22 clonazePAM 1 mg PO DIRECTED 04/25/22 04/25/22 Previous Rx's Medication Instructions Recorded Aspirin EC [Ecotrin Low Dose] 81 mg PO DAILY 30 Days tab 08/17/21 Calcium Carbonate [Tums] 500 mg PO QID PRN 30 Days 08/17/21 Ferrous Sulfate [Iron (65 MG 325 mg PO DAILY 30 Days tab 08/17/21 Elemental)] Melatonin 10 mg PO HS 30 Days tablet 08/17/21 Mirtazapine [Remeron] 15 mg PO HS 30 Days tab 08/17/21 Pantoprazole [Protonix] 40 mg PO HS 30 Days tab 08/17/21 Pravastatin Sodium [Pravachol] 40 mg PO HS 30 Days tab 08/17/21 Vitamin B Complex 1 cap PO DAILY 30 Days cap 08/17/21 Ziprasidone [Geodon] 40 mg PO BID 30 Days cap 08/17/21 busPIRone HCL 15 mg PO BID 30 Days tab 08/17/21 glipiZIDE [Glucotrol] 20 mg PO BID 30 Days tab 08/17/21 metFORMIN HCL [Glucophage] 1,000 mg PO BID 30 Days #60 tab 08/17/21 HYDROcodone/APAP 5-325MG [[place] 1 tab PO Q6HR PRN 3 Days #12 tab 04/20/22 5-325] chlordiazePOXIDE HCl [Librium] See Taper PO TID #20 capsule 04/26/22 Allergies Allergy/AdvReac Type Severity Reaction Status Date / Time thimerosal Allergy Severe Rash/Hives/throat Verified 04/27/22 12:02 swelling neomycin Allergy Rash/Hives Verified 04/27/22 12:02 Review of Systems ROS Statement: Those systems with pertinent positive or pertinent negative responses have been documented in the HPI. ROS Other: All systems not noted in ROS Statement are negative. 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, neuropathy, anxiety, back pain History of Any Multi-Drug Resistant Organisms: None Reported Past Surgical History: Joint Replacement Additional Past Surgical History / Comment(s): bilateral cataract removed, Both hips replaced, right heal shattered- screws/plates/ pins, cardiac cath 06/18/20 Past Anesthesia/Blood Transfusion Reactions: No Reported Reaction Past Psychological History: Anxiety, Bipolar, Depression, Schizoaffective Disorder Smoking Status: Current every day smoker Past Alcohol Use History: Abuse, Daily, Heavy, Occasional Past Drug Use History: None Reported - Past Family History Father Family Medical History: Myocardial Infarction ([place]) Additional Family Medical History / Comment(s): mid 30's Mother Family Medical History: Dementia family Additional Family Medical History / Comment(s): anxiety General Exam General appearance: alert, in no apparent distress, anxious Head exam: Present: atraumatic, normocephalic, normal inspection Eye exam: Present: normal appearance, PERRL, EOMI. Absent: scleral icterus, conjunctival injection, periorbital swelling ENT exam: Present: normal exam, mucous membranes moist Neck exam: Present: normal inspection. Absent: tenderness, meningismus, lymphadenopathy Respiratory exam: Present: normal lung sounds bilaterally. Absent: respiratory distress, wheezes, rales, rhonchi, stridor Cardiovascular Exam: Present: normal rhythm, tachycardia, normal heart sounds. Absent: systolic murmur, diastolic murmur, rubs, gallop, clicks GI/Abdominal exam: Present: soft, normal bowel sounds. Absent: distended, tenderness, guarding, rebound, rigid Extremities exam: Present: normal inspection, full ROM, normal capillary refill. Absent: tenderness, pedal edema, joint swelling, calf tenderness Back exam: Present: normal inspection Neurological exam: Present: alert, oriented X3, CN II-XII intact Psychiatric exam: Present: anxious Skin exam: Present: warm, dry, intact, normal color. Absent: rash Course Vital Signs 04/26/22 02:07 Temperature 98.0 F Pulse Rate 120 H Respiratory 18 Rate Blood Pressure 117/84 O2 Sat by Pulse 98 Oximetry Medical Decision Making - Medical Decision Making On arrival patient placed in room 3. A thorough history and physical exam was performed. I did order the patient's home dose of Klonopin. He will be placed on Librium in the outpatient setting. Instructed to follow-up with his psychiatrist for benzo prescription. Return for any new or worsening symptoms. Patient was agreeable discharge home in stable condition Disposition Clinical Impression: Alcohol withdrawal Disposition: HOME SELF-CARE Condition: Stable Instructions (If sedation given, give patient instructions): Alcohol Withdrawal (ED) Additional Instructions: Stop drinking. Follow-up with [facility] for further medication refills Prescriptions: chlordiazePOXIDE HCl [Librium] See Taper PO TID #20 capsule Is patient prescribed a controlled substance at d/c from ED?: No Referrals: Marlen Mobley MD [Primary Care Provider] - 1-2 days Time of Disposition: 04:15
== END 2022-04-26 04:24 | disposition home or self-care (01) ==
LOC: EC 01:34
DX: F10.139 Alcohol abuse with withdrawal, unspecified (principal); F17.200 Nicotine dependence, unspecified, uncomplicated; E11.9 Type 2 diabetes mellitus without complications; E78.5 Hyperlipidemia, unspecified; I10 Essential (primary) hypertension; Z88.1 Allergy status to other antibiotic agents; Z88.3 Allergy status to other anti-infective agents; Z79.899 Other long term (current) drug therapy; Z79.85 Long-term (current) use of injectable non-insulin antidiabetic drugs
CPT/HCPCS: 82075; 99284

== ENCOUNTER 2022-04-27 03:04 | Emergency (ER) | payer MEDICARE, OTHER ==
[2022-04-27 03:26] VITALS: RESP 20
[2022-04-27] MEDS ORDERED: NITROGLYCERIN SL TABS 0.4 MG TAB SUBLINGUAL STA (05:17)
[2022-04-27] MEDS ORDERED: clonazePAM 0.5 MG TAB PO STA (05:17)
--- NOTE | 2022-04-27 05:17 | ED ---
General Adult HPI - General Chief complaint: Recheck/Abnormal Lab/Rx Stated complaint: Chest Pain Time Seen by Provider: 04/27/22 03:30 Source: patient, EMS Mode of arrival: EMS - History of Present Illness Initial comments: 57-year-old male with past medical history of anxiety disorder who presents to the emergency room with reported chest pain. States the chest pain started last evening. It does not radiate. Describes it as a pressure sensation. Has associated shortness of breath. Patient has been seen multiple times in the emergency room for similar complaints. He has had a heart cath which was negative for coronary disease. He denies fevers chills or cough. No ripping or tearing patient to his back. No other alleviating, precipitating or modifying factors - Related Data Home Medications Medication Instructions Recorded Confirmed Multivitamins, Thera [Multivitamin 1 tab PO DAILY 10/07/21 04/25/22 (formulary)] modafiniL [Provigil] 200 mg PO DAILY 10/19/21 04/25/22 Gabapentin 800 mg PO QID 01/10/22 04/25/22 Nicotine 14Mg/24Hr Patch [Habitrol 1 patch TRANSDERM DAILY 01/10/22 04/25/22 14Mg/24Hr Patch] Cyclobenzaprine [Flexeril] 10 mg PO TID PRN 04/25/22 04/25/22 Dulaglutide [Trulicity] 3 mg SQ Q7D 04/25/22 04/25/22 Magnesium Oxide [Mag-Ox] 400 mg PO DAILY 04/25/22 04/25/22 Pregabalin [Lyrica] 50 mg PO TID 04/25/22 04/25/22 carvediloL [Coreg] 12.5 mg PO BID 04/25/22 04/25/22 clonazePAM 1 mg PO DIRECTED 04/25/22 04/25/22 Previous Rx's Medication Instructions Recorded Aspirin EC [Ecotrin Low Dose] 81 mg PO DAILY 30 Days tab 08/17/21 Calcium Carbonate [Tums] 500 mg PO QID PRN 30 Days 08/17/21 Ferrous Sulfate [Iron (65 MG 325 mg PO DAILY 30 Days tab 08/17/21 Elemental)] Melatonin 10 mg PO HS 30 Days tablet 08/17/21 Mirtazapine [Remeron] 15 mg PO HS 30 Days tab 08/17/21 Pantoprazole [Protonix] 40 mg PO HS 30 Days tab 08/17/21 Pravastatin Sodium [Pravachol] 40 mg PO HS 30 Days tab 08/17/21 Vitamin B Complex 1 cap PO DAILY 30 Days cap 08/17/21 Ziprasidone [Geodon] 40 mg PO BID 30 Days cap 08/17/21 busPIRone HCL 15 mg PO BID 30 Days tab 08/17/21 glipiZIDE [Glucotrol] 20 mg PO BID 30 Days tab 08/17/21 metFORMIN HCL [Glucophage] 1,000 mg PO BID 30 Days #60 tab 08/17/21 HYDROcodone/APAP 5-325MG [[place] 1 tab PO Q6HR PRN 3 Days #12 tab 04/20/22 5-325] chlordiazePOXIDE HCl [Librium] See Taper PO TID #20 capsule 04/26/22 Allergies Allergy/AdvReac Type Severity Reaction Status Date / Time thimerosal Allergy Severe Rash/Hives/throat Verified 04/27/22 12:02 swelling neomycin Allergy Rash/Hives Verified 04/27/22 12:02 Review of Systems ROS Statement: Those systems with pertinent positive or pertinent negative responses have been documented in the HPI. ROS Other: All systems not noted in ROS Statement are negative. 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, neuropathy, anxiety, back pain History of Any Multi-Drug Resistant Organisms: None Reported Past Surgical History: Joint Replacement Additional Past Surgical History / Comment(s): bilateral cataract removed, Both hips replaced, right heal shattered- screws/plates/ pins, cardiac cath 06/18/20 Past Anesthesia/Blood Transfusion Reactions: No Reported Reaction Past Psychological History: Anxiety, Bipolar, Depression, Schizoaffective Disorder Smoking Status: Current every day smoker Past Alcohol Use History: Abuse, Daily, Heavy, Occasional Past Drug Use History: None Reported - Past Family History Father Family Medical History: Myocardial Infarction ([place]) Additional Family Medical History / Comment(s): mid 30's Mother Family Medical History: Dementia family Additional Family Medical History / Comment(s): anxiety General Exam General appearance: alert, in no apparent distress Head exam: Present: atraumatic, normocephalic, normal inspection Eye exam: Present: normal appearance, PERRL, EOMI. Absent: scleral icterus, conjunctival injection, periorbital swelling ENT exam: Present: normal exam, mucous membranes moist Neck exam: Present: normal inspection. Absent: tenderness, meningismus, lymphadenopathy Respiratory exam: Present: normal lung sounds bilaterally. Absent: respiratory distress, wheezes, rales, rhonchi, stridor Cardiovascular Exam: Present: normal rhythm, tachycardia, normal heart sounds. Absent: systolic murmur, diastolic murmur, rubs, gallop, clicks GI/Abdominal exam: Present: soft, normal bowel sounds. Absent: distended, tenderness, guarding, rebound, rigid Extremities exam: Present: normal inspection, full ROM, normal capillary refill. Absent: tenderness, pedal edema, joint swelling, calf tenderness Back exam: Present: normal inspection Neurological exam: Present: alert, oriented X3, CN II-XII intact Psychiatric exam: Present: normal affect, normal mood Skin exam: Present: warm, dry, intact, normal color. Absent: rash Course Vital Signs 04/27/22 04/27/22 03:21 07:43 Temperature 98.7 F 97.8 F Pulse Rate 110 H 88 Respiratory 20 20 Rate Blood Pressure 117/85 120/98 O2 Sat by Pulse 98 100 Oximetry EKG Findings - EKG Comments: EKG Findings:: EKG interpreted by myself. Demonstrates a sinus tachycardia with a rate of 135. OR interval 140. QRS E4. QTC 361. No acute ST segment elevations or depressions. Medical Decision Making - Medical Decision Making On arrival patient was placed into room 9. A thorough history and physical exam was performed. 12 EKG is obtained which is interpreted by myself as negative for any acute process. He is placed on continuous pulse ox and monitoring engineer ing. Laboratory studies are obtained and reviewed by myself. Chest x-ray is also performed. Patient has asked multiple times throughout his stay in the emergency department for something for anxiety. He has been seen on sequential days for his anxiety requesting refill of his anxiety medications. It has been stressed to the patient that he needs to follow up with [facility] for this medication refill however the patient's consistently fails to make an appointment. Patient's troponin is negative. Discuss the diagnosis, differential treatment options. I did provide him with one dose of anxiety medication emergency room. He will be discharged home at this time. Instructed follow-up with [facility] for his medication refill and return for any new or worsening symptoms. Patient discharged with stable condition - Lab Data Result diagrams: 04/27/22 05:30 04/27/22 06:54 Lab Results 04/27/22 04/27/22 04/27/22 Range/Units 05:30 05:30 06:54 WBC 15.4 H (3.8-10.6) k/uL RBC 4.65 (4.30-5.90) m/uL Hgb 14.4 (13.0-17.5) gm/dL Hct 41.8 (39.0-53.0) % MCV 89.9 (80.0-100.0) fL MCH 31.0 (25.0-35.0) pg MCHC 34.4 (31.0-37.0) g/dL RDW 14.5 (11.5-15.5) % Plt Count 453 H (150-450) k/uL MPV 7.9 Neutrophils % 81 % Lymphocytes % 12 % Monocytes % 5 % Eosinophils % 0 % Basophils % 0 % Neutrophils # 12.4 H (1.3-7.7) k/uL Lymphocytes # 1.8 (1.0-4.8) k/uL Monocytes # 0.8 (0-1.0) k/uL Eosinophils # 0.0 (0-0.7) k/uL Basophils # 0.0 (0-0.2) k/uL PT 10.8 (9.0-12.0) sec INR 1.0 (<1.2) APTT 24.2 (22.0-30.0) sec Sodium 135 L (137-145) mmol/L Potassium 6.0 H (3.5-5.1) mmol/L Chloride 98 (98-107) mmol/L Carbon Dioxide 18 L (22-30) mmol/L Anion Gap 19 mmol/L BUN 14 (9-20) mg/dL Creatinine 1.07 (0.66-1.25) mg/dL Est GFR (CKD-EPI)AfAm 89 (>60 ml/min/1.73 sqM) Est GFR (CKD-EPI)NonAf 77 (>60 ml/min/1.73 sqM) Glucose 135 H (74-99) mg/dL Calcium 9.0 (8.4-10.2) mg/dL Magnesium 1.5 L (1.6-2.3) mg/dL Total Bilirubin 1.3 (0.2-1.3) mg/dL AST 52 (17-59) U/L ALT 39 (4-49) U/L Alkaline Phosphatase 101 (38-126) U/L Troponin I (0.000-0.034) ng/mL Total Protein 8.3 H (6.3-8.2) g/dL Albumin 5.4 H (3.5-5.0) g/dL Lipase 155 (23-300) U/L 04/27/22 Range/Units 06:54 WBC (3.8-10.6) k/uL RBC (4.30-5.90) m/uL Hgb (13.0-17.5) gm/dL Hct (39.0-53.0) % MCV (80.0-100.0) fL MCH (25.0-35.0) pg MCHC (31.0-37.0) g/dL RDW (11.5-15.5) % Plt Count (150-450) k/uL MPV Neutrophils % % Lymphocytes % % Monocytes % % Eosinophils % % Basophils % % Neutrophils # (1.3-7.7) k/uL Lymphocytes # (1.0-4.8) k/uL Monocytes # (0-1.0) k/uL Eosinophils # (0-0.7) k/uL Basophils # (0-0.2) k/uL PT (9.0-12.0) sec INR (<1.2) APTT (22.0-30.0) sec Sodium (137-145) mmol/L Potassium (3.5-5.1) mmol/L Chloride (98-107) mmol/L Carbon Dioxide (22-30) mmol/L Anion Gap mmol/L BUN (9-20) mg/dL Creatinine (0.66-1.25) mg/dL Est GFR (CKD-EPI)AfAm (>60 ml/min/1.73 sqM) Est GFR (CKD-EPI)NonAf (>60 ml/min/1.73 sqM) Glucose (74-99) mg/dL Calcium (8.4-10.2) mg/dL Magnesium (1.6-2.3) mg/dL Total Bilirubin (0.2-1.3) mg/dL AST (17-59) U/L ALT (4-49) U/L Alkaline Phosphatase (38-126) U/L Troponin I <0.012 (0.000-0.034) ng/mL Total Protein (6.3-8.2) g/dL Albumin (3.5-5.0) g/dL Lipase (23-300) U/L Disposition Clinical Impression: Chest pain, Social anxiety disorder Disposition: HOME SELF-CARE Condition: Stable Instructions (If sedation given, give patient instructions): Chest Pain (ED) Additional Instructions: Follow up with your doctor for medication refills. Return for any new or worsening symptoms Is patient prescribed a controlled substance at d/c from ED?: No Referrals: Marlen Mobley MD [Primary Care Provider] - 1-2 days Time of Disposition: 06:45
[2022-04-27 06:06] LABS: Basophils % (A) 0 %; Eosinophils % (A) 0 %; HCT 41.8 % (39.0-53.0); HGB 14.4 gm/dL (13.0-17.5); Lymphocytes # (A) 1.8 k/uL (1.0-4.8); Lymphocytes % (A) 12 %; MCHC 34.4 g/dL (31.0-37.0); MCV 89.9 fL (80.0-100.0); Mean Platelet Volume 7.9; Monocytes # (A) 0.8 k/uL (0-1.0); Monocytes % (A) 5 %; Neutrophils # (A) 12.4 k/uL (1.3-7.7); Neutrophils % (A) 81 %; Platelet Count 453 k/uL (150-450); RBC 4.65 m/uL (4.30-5.90); RDW 14.5 % (11.5-15.5); WBC 15.4 k/uL (3.8-10.6)
--- NOTE | 2022-04-27 06:11 | XR ---
EXAMINATION TYPE: XR chest 2V DATE OF EXAM: 04/27/2022 COMPARISON: 04/25/2022 HISTORY: Chest pain TECHNIQUE: FINDINGS: Heart is normal. Lungs are clear. Diaphragm is normal. Bony thorax is intact. IMPRESSION: Normal chest. No change.
[2022-04-27 06:51] LABS: Partial Thromboplastin Time 24.2 sec (22.0-30.0); Prothrombin Time 10.8 sec (9.0-12.0)
[2022-04-27 07:12] LABS: Albumin 5.4 g/dL (3.5-5.0); Magnesium 1.5 mg/dL (1.6-2.3); Total Bilirubin 1.3 mg/dL (0.2-1.3); Total Protein 8.3 g/dL (6.3-8.2)
[2022-04-27 07:46] VITALS: BP 120/98; PULSE 88; TEMP 97.8
== END 2022-04-27 07:46 | disposition home or self-care (01) ==
LOC: EC 03:04
DX: R07.9 Chest pain, unspecified (principal); F40.10 Social phobia, unspecified; E11.9 Type 2 diabetes mellitus without complications; I10 Essential (primary) hypertension; F41.9 Anxiety disorder, unspecified; F31.9 Bipolar disorder, unspecified; F17.200 Nicotine dependence, unspecified, uncomplicated; Z88.1 Allergy status to other antibiotic agents; Z88.7 Allergy status to serum and vaccine
CPT/HCPCS: 36415; 71046; 80053; 83690; 83735; 84484; 85025; 85610; 85730; 93005; 99285

== ENCOUNTER → 2022-06-23 | Outpatient (CLI) | payer MEDICARE, OTHER ==
--- NOTE | 2022-06-25 09:52 | MR ---
EXAMINATION TYPE: MR lumbar spine wo con DATE OF EXAM: 06/23/2022 7:39 PM COMPARISON: Spine radiograph 04/20/2022. CLINICAL INDICATION:Male, 57 years old with history of M47.26 OTHER SPONDYLOSIS WITH RADICULOPATHY; B ack Pain x10 years TECHNIQUE: Multi planar, multi sequence imaging was performed utilizing: T1-weighted, T2-weighted, a nd turbo inversion recovery imaging of the lumbar spine. IV Contrast: None. FINDINGS: Alignment: The lumbar vertebral bodies have preserved heights. Retrolisthesis of L4 on L5 with anter ior listhesis of L3 on L4. Cord: The conus medullaris and the distal spinal cord appear unremarkable with regards to their signa l intensity and morphology. Bones/Discs: Scattered Modic endplate changes are seen most pronounced at L3-L5. No abnormal bony familia ma on inversion recovery sequences. Multilevel degenerative disc disease is noted and most pronounced at the L3-L5. Complete loss of disc height is present at L3-L4 and L4-L5. Disc desiccation L5-S1. T12-L1: No evidence of significant spinal canal stenosis or neural foraminal stenosis. L1-L2: No evidence of significant spinal canal stenosis or neural foraminal stenosis. L2-L3: No evidence of significant spinal canal stenosis or neural foraminal stenosis. L3-L4: There is an abundance of epidural fat which compresses the cauda equina. No evidence of signif icant spinal canal stenosis or neural foraminal stenosis. L4-L5: There is an abundance of epidural fat which compresses the cauda equina. Disc bulge and facet joint arthropathy with severe bilateral neural foraminal stenosis. L5-S1: There is an abundance of epidural fat which compresses the cauda equina. No significant disc p athology. Facet joint arthropathy with moderate bilateral neural foraminal stenosis. Other findings: None. IMPRESSION: 1. Epidural lipomatosis which compresses the cauda equina starting from L3 and extends inferiorly. 2. Severe L3-L4 and L4-L5 neural foraminal stenosis bilaterally
== END | disposition home or self-care (01) ==
LOC: RADMRIMAIN 18:40
PROVIDERS: ATTEND Nurse Practitioner Family
DX: M47.26 Other spondylosis with radiculopathy, lumbar region (principal); M48.061 Spinal stenosis, lumbar region without neurogenic claudication; E88.2 Lipomatosis, not elsewhere classified; M99.73 Connective tissue and disc stenosis of intervertebral foramina of lumbar region
CPT/HCPCS: 72148

== ENCOUNTER 2022-08-07 05:40 | Inpatient (IN) | payer MEDICARE, OTHER ==
[2022-07-31 12:15] VITALS: BMI 30.5
--- NOTE | 2022-08-06 15:05 | P.HPOR ---
History of Present Illness H&P Date: 07/31/22 .D:Date: 07/31/22 : 09:03am .T:Title: [facility] H&P Date of :63 R14 Allergies: Age: 57 year Height: 5'7" Weight: 160 lbs BP:126/79 BMI: 25.06 kg/m2 Occupation: Disabled VAS: 7 CHIEF COMPLAINT: Low back pain DOI: Chronic DOS: n/a Duration of current treatment regiment: 6 months HISTORY: Xrays No new xrays taken in office Trauma or injury No Work-Related No Pain description dull, aching. Location posterior Patient notes that their pain radiates to bilateral lower extremitiesL>R Activity Modification yes Hand Dominance right TREATMENTS COMPLETED: 6 weeks of PT completed? Month and Year of last PT date? Yes How many sessions? 12 Did it help? No Physician directed home exercise completed? yes Patient has trialed the physician directed home exercise program with relief of their symptoms. Medications yes List: Gabapentin and Lyrica Alternative interventions Chiropractic: No Massage therapy: No R.I.C.E: No Brace: No Injections No RFA: No SUBJECTIVE: Mr. Elliott returns to the office for pre operative appointment for his upcoming lumbar(L3-Pelvis) Decompression and Fusion . Since the time of the last appointment the patient reports no improvements to his symptoms. Patient continues to complain of low back pain extending into the bilateral lower extremities along with numbness and tingling diffusely. Overall the patient has seen a progressive increase in symptoms since their onset. Mr. Elliott symptoms are exacerbated with prolonged standing and ambulation, due to this they notes that it is increasingly difficult for Mr. Elliott to complete many of their daily tasks. Patient is having severe sleep disturbances as well due to their ongoing pain and associated symptoms. Regarding treatments, the patient has previously trialed all abovementioned treatment modalities without relief of his symptoms. Patient denies trialing any other modalities at this time. Otherwise the patient denies any f/c/sob/cp, no incision concerns, no bladder or bowel retention/incontinence, no perineal numbness/tingling, and ambulates independently. HPI: Mr. Elliott returns to the office for a recheck of their low back pain. Since the time of the last appointment the patient reports no improvements to his symptoms. Patient continues to complain of low back pain extending into the bilateral lower extremities along with numbness and tingling diffusely. Overall the patient has seen a progressive increase in symptoms since their onset. Mr. Elliott symptoms are exacerbated with prolonged standing and ambulation, due to this they notes that it is increasingly difficult for Mr. Elliott to complete many of their daily tasks. Patient is having severe sleep disturbances as well due to their ongoing pain and associated symptoms. Regarding treatments, the patient has previously trialed all abovementioned treatment modalities without relief of his symptoms. Patient denies trialing any other modalities at this time. Otherwise the patient denies any f/c/sob/cp, no incision concerns, no bladder or bowel retention/incontinence, no perineal numbness/tingling, and ambulates independently. Mr. Elliott presents to the office for an evaluation of their low back pain. Patient reports a dull aching lumbar pain ongoing for 3.5yrs with no known injury or trauma to indicate an exact onset of their symptoms. Symptoms have progressed in the past month. In addition to their lumbar pain, they do report that it radiates into the bilateral lower extremities, associated with numbness and tingling. He reports the left side is greater than the right side. Overall the patient has seen a progressive increase in symptoms since their onset. Mr. Elliott symptoms are exacerbated with any activity, due to this they notes that it is increasingly difficult for Mr. Elliott to complete many of their daily tasks. Patient is having moderate sleep disturbances as well due to their ongoing pain and associated symptoms. Regarding treatments, the patient has previously trialed the above listed modalities. Patient denies trialing any other modalities at this time. For their symptoms, the patient has been taking gabapentin 800 mg 4 times a day and Lyrica 50 mg 3 times a day. Otherwise the patient denies any f/c/sob/cp, no bladder or bowel retention/incontinence, no perineal numbness/tingling, and ambulates independently. The patients' past social, medical, family, surgical history, as well as review of systems, have been reviewed. Please refer to the Neurosurgery History and Physical form that has been scanned in to our electronic medical record system. 14 points review of systems completed and as stated in HPI, all other systems reviewed are negative. Social History: Reviewed, see appropriate section of the chart for details. P3 Family History: Reviewed, see appropriate section of the chart for details. P2 Past Medical History: Reviewed, see appropriate section of the chart for details. [id number] Medications: Rx: ASPIRIN EC 81MG ORAL Tablet, Ref: 0 Rx: CALCIUM ORAL Tablet, Ref: 0 Rx: FISH OIL ORAL Capsule, Ref: 0 Rx: glipiZIDE Ref: 0 Rx: METFORMIN HCL 500MG ORAL Tablet, Ref: 0 Rx: MULTIVITAMINS ORAL Tablet, Ref: 0 Rx: traZODone 150 mg tablet Ref: 0 Rx: VITAMIN B COMPLEX ORAL , Ref: 0 Rx: Vitamin B-6 25 mg tablet Ref: 0 Rx: VITAMIN D ORAL Tablet, Ref: 0 Rx: VITAMIN E 200UNITS ORAL Capsule, Ref: 0 Rx: Zanaflex Ref: 0 Rx: ZANTAC 150MG ORAL , Ref: 11 Rx: busPIRone 15 mg tablet Ref: 0 Rx: carvediloL 12.5 mg tablet Ref: 0 Rx: clonazePAM 1 mg tablet Ref: 0 Rx: gabapentin 800 mg tablet Ref: 0 Rx: mirtazapine 15 mg tablet Ref: 0 Rx: naltrexone 50 mg tablet Ref: 0 Rx: naltrexone 50 mg tablet Ref: 0 Rx: pravastatin 40 mg tablet Ref: 0 Rx: tiZANidine 4 mg capsule Ref: 0 Rx: Trulicity Ref: 0 Rx: ziprasidone 40 mg capsule Ref: 0 Rx: ketorolac 10 mg tablet Ref: 0 Rx: Lyrica 50 mg capsule Ref: 0 PHYSICAL EXAMINATION: General: Awake, alert, appropriate for age, in no acute distress. HEENT: No unusual neck masses around region of lateral neck triangle, thyroid, supraclavicular groove Extremities: Skin warm and dry without acute lesions, coloration, temperature, skin intact, no tenderness or erythema Integument: Hairy patches: ABSENT Dorsal skin dimples: ABSENT Cafe au lait spots: ABSENT Surgical incisions: n/a Palpation: Please see Pain drawing on Intake sheet for further detail. Midline spinal tenderness: No E6 Cervical Tenderness: No E6 Paralumbar tenderness: No E6 Parathoracic tenderness: No E6 Buttocks tenderness: No E6 Sacroilliac Tenderness: No POSTURAL and MUSCULO-SKELETAL EVALUATION: Coronal Balance: NEUTRAL Recumbent testing: Patient is able to lay flat on back Sagittal Balance: NEUTRAL Shoulder Profile: LEVEL Pelvic Girdle: LEVEL Neck ROM: UNRESTRICTED Lumbar ROM: RESTRICTED Shoulder ROM: Symmetrical Hip ROM: Symmetrical Knee ROM: Symmetrical Hands: Normal appearance, symmetrical Feet: Normal appearance, Symmetrical VASCULAR STATUS : LEFT RIGHT Wrist Pulses INTACT INTACT Pedal Pulses (Dors. pedis & post.tibialis) INTACT INTACT Color NORMAL NORMAL Edema MIld LE Absent NEUROLOGIC EXAMINATION: Mental Status:Awake and alert, fully oriented, with normal attention, concentration and memory, and fluent, appropriate speech. Cranial Nerves: I: Olfactory not tested. II: Visual acuity normal, no visual field deficit noted with confrontation. III,IV: Normal pupillary reflexes & intact extraocular movements without nystagmus. V,: Intact symmetrical facial sensation. VII: Intact symmetrical facial motor movement VIII: Hearing intact. IX,X: Intact gag, swallow, & normal voice. XI: Sternocleidomastoid, trapezius function intact. XII: Tongue midline with normal movements. L'hermitte's Sign: Negative / absent Spurling'Sign: Absent bilaterally. Cubital percussion test: Absent bilaterally. Chris-Tinel sign - Carpal region: Absent bilaterally. Straight Leg Raising: Absent bilaterally. 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 Right 5/5 5/5 5/5 5/5 5/5 5/5 Left 5/5 5/5 5/5 5/5 5/5 5/5 LOWER EXTREMITY Hip Flexion Knee Extension Knee Flexion DF PF EHL FHL Right 4/5 4/5 4/5 4/5 4/5 4/5 4/5 Left 4/5 4/5 4/5 4/5 4/5 4/5 4/5 REFLEXES(0-4/2, NT)Upper ExtremityLower Extremity Right 2 2 Left 1 1 Pathological Reflexes RIGHT LEFT Chris's Absent Absent Clonus Absent Absent Babinski Absent Absent # Indicates mechanical impairment Muscle appearance: Some muscle wasting in b/l Calves Sensory system (0-4, N/T) Test type RU AUBRIE RL LL Joint-Position 2 2 2 2 Vibration 2 2 2 2 Pain & LT sense 2 2 2 2 Dermatomal Deficit: None None L3-5 L3-4, S1 Gait and Functional Evaluation: Ambulatory aids: Independent Romberg's test: Intact bilaterally Toe heel walk / heel-toe walk intact while maintaining satisfactory balance? No Squatting/straightening w/o assistance to a min of 60 degree knee flexion? No Single leg stance: intact Trendelenburg sign negative bilaterally Hand and finger dexterity intact bilaterally? yes Disdiadochokinesis examination negative bilaterally? yes RADIOGRAPHIC STUDIES: XRay taken on 02/16/22 of Lumbar Spine and Pelvis: Severe multilevel degenerative changes with straightening of the normal lumbar lordosis. L3-S1 stenosis. Multilevel diminished disc height. No acute osseous abnormalities CT scan from08/03/2021 of Lumbar Spine: IMPRESSION: 1. Severe degenerative disc disease at L3-4 and L4-5 with associated mild central stenosis and bilateral foraminal encroachment at each level. Grade 1 anterolisthesis L3 on L4 and grade 1 retrolisthesis of L4 and L5. See above MRI scan from04/28/2021 of Lumbar Spine: Impression: 1. Straightening of the normal lumbar lordosis consistent with strain in the appropriate clinical circumstance versus secondary to grade 1 anterior listhesis and compressive discopathy as described above. Recommend clinical correlation. 2. L3-L4: Grade 1 anterior listhesis is seen resulting in severe bilateral neural foraminal encroachment and bilateral exiting L3 nerve impingement in conjunction with facet arthrosis. Moderate to severe canal stenosis is seen. 3. L4-L5: 3-4 mm annular bulge effaces the ventral surface of the thecal sac resulting in severe bilateral neural laminal encroachment and bilateral exiting L4 nerve impingement in conjunction with facet arthrosis. Mild canal stenosis is seen. 4. L5-S1: 3-4 mm annular bulge effaces the ventral surface of the thecal sac resulting in moderate to severe bilateral neural foraminal encroachment and bilateral exiting L5 nerve impingement in conjunction with facet arthrosis IMPRESSION: It was my pleasure to have seen and examined Andrea. I reviewed the patient's clinical syndrome, physical findings, and imaging studies during the appointment today. It is my impression that the patient has a diagnosis of. 1. L3-4 Grade I unstable spondylolisthesis 2.L3-S1 spondylosis with severe stenosis 3. Bilateral lower extremity radiculopathy 4. Neurogenic claudication I outlined the natural course history without intervention and various interventional options. PLAN: Based on my findings I suggest the following course of action: - Advised patient to continue with supplements, health maintenance, and home exercise programs. Patient expressed understanding and will continue with these modalities. - I discussed treatment options with the patient, including operative and non- operative options, and they have elected to proceed with the following surgical procedure: lumbar(L3-Pelvis) Decompression and Fusion The indications, risks, benefits, and alternatives to surgery were discussed with the patient at length. Specifically (but not limited to) the risks of infection, stiffness, recurrence of symptoms, need for revision surgery, local numbness, neurovascular injury, and blood clots were discussed. The patient's questions were answered. The decision to proceed was made. Consent will be obtained for the procedure. Surgical Procedure Risk Review Andrae Elliott is a 57 year old male presenting for evaluation of onset of Low back pain, LE weakness, difficulty with ambulating distances, severe increase in his low back pain. It was my pleasure to have seen and examined Mr. Elliott. In our visit today we have had a chance to go over subjective complaints, physical examination findings and treatments, including the natural course history without intervention and various interventional options. The imaging demonstrates L3-S1 severe spondylosis with stenosis, central and foraminal with severe disc dessication, height loss and alignment derrangement . On physical exam, Mr. Elliott demonstrates Low back pain with motion, limited ROM seconday to pain, weakness in LE, paresthesia, radiculopathy all significantly impating his day to day activities . I explained to the patient that as his condition progresses it could cause Continued sx, worsening sx, further neurological compromise or even deficit, continued back pain, more debility . At this time, based on the patients imaging and physical exam, I recommend surgery in the form or a: L3-Pelvis decompression and fusion . I discussed the risk and benefits of this procedure at length with Mr. Elliott. The patient his wifeagreed to consider pursuing the procedure mentioned above. Plan: 1. L3 to Pelvis decompression and fusion 2. Follow up with PCP for surgical clearance 3. Review of surgical risks and benefits as well as an educational packet on the proposed surgical procedure. Risks: All surgical procedures come with inherent risks, including those related to positioning, anesthesia, intraoperative findings, and postoperative complications. It is important to understand that surgery does not come with any guarantee of a successful outcome as complications and adverse events are always possible. The patient was given a handout in office today discussing the surgical procedure and risks associated with the intervention, both of which were discussed with the patient. These risks include but are not limited to the following: ? Experiencing same, different or even worse symptoms in back, neck, arms, or legs compared to before surgery. ? Requiring further surgery or other forms of treatment presently or at some time in the future at same or other levels of the intended spine surgery. ? On an extreme but fortunately relatively rare basis severe complication such as blindness, stroke, heart attack, temporary and/or permanent nerve injury, paralysis, coma, or may occur, sometimes without known explanatio n. ? Surgical complications may include but are not limited to risk of infection, fluid accumulation in the surgical dissection site, including a seroma or hematoma, that requires additional surgery, wound drainage, bleeding, new numbness or weakness, vision changes/loss, spinal fluid leakage, non-healing and/or infected incision, headaches, difficulty or inability to swallow, hoarseness, hemopneumothorax, pneumothorax, impotence, retrograde ejaculation, vaginal dryness; injury to nerves, spinal cord, blood vessels, lymphatics or other vital organs (i.e., bowel injury, injury to the great vessels); heterotopic bone formation; complications related to the hardware such as screws, rods, cages including misplaced hardware, device failure, instrumentation at the wrong spine level, hardware fracture/breakage, or hardware loosening; vertebral failure of the spinal column above or below the newly placed hardware; retained surgical instrumentations or devices and the need for further surgery. ? Medical risks of the planned spine surgery include but are not limited to generalized Infections to the whole body or local areas outside of the surgical site (sepsis), heart attack, bleeding, anaphylaxis, meningitis, seizure, epilepsy, hearing loss, burn du, laceration of the head or other areas of the body, bruising, hypersensitivity of the skin, bladder over distension; allergic reaction; shoulder injury related to positioning; fat, blood and air clots to other areas of the body like heart, lungs, brain; failure of internal organs such as lungs, kidneys, liver and excessive bleeding. If blood transfusions are necessary, note that transfusions may cause intolerance reactions such as anaphylaxis or other complex reactions. Despite best efforts, the results of spine surgery might not heal in terms of bone, soft tissues such as skin, fascia, ligaments, and joints. Additionally, in order to achieve best possible results, spine surgery may be carried out beyond the initially planned levels and involve decompression, fusion including insertion of hardware at levels other than the original intended area of surgical interest change some portions of the procedure in order to ensure the best possible outcomes. With spine surgery and spinal fusion, there are different off label uses of instrumentation (devices, implants and hardware) as well as biological s ubstances (bone morphogenic proteins, demineralized bone matrix) as well as using extra bone from allograft sources (i.e. cadaver bone) or autograft (iliac crest bone, ribs, or the spine itself). The patient has been given information about these practices and their inherent risks and benefits. [facility] Physician Assistants are medically trained surgical providers who function in the outpatient, inpatient, and operating room setting under the direct supervision of the attending surgeon.They assist in the operating room with direct supervision of the attending surgeons. The patient has had a chance to review all the listed information, has been given print outs detailing this information, and has had all his/her questions answered to their satisfaction. It was my pleasure to have seen and examined Mr. Elliott. In our visit today we have had a chance to go over my understanding of our patient's current condition, the natural course history without intervention and various interventional options. Questions were invited and answered, and the patient wishes to proceed as outlined above. I have seen and examined the patient for 25 minutes and we have spent more than 50% of the time in repeat and detailed counseling about the patient's condition, its natural course history with out and as much as can be predicted with surgery and re-review of various surgical treatment options. In conclusion,Mr. Elliott and his spouse/partner requested we proceed with the above suggested surgery and are willing to accept risks and limitations of the suggested surgery as nature of the disease process and our best attempts at treatment for the condition. Thank you again for allowing us to be part of your patient's care. Please don't hesitate to contact me if you have any further questions. FOLLOW-UP Post procedure Pt Education (Informational booklet, instructions, etc) given at today's appointment: Yes .ED:Patient Education: Y Medications Reviewed: YES Attestation: In our visit today Mr. Elliott and I have had a chance to go over my understanding of the patient's current condition, the natural course history without intervention and various interventional options. Questions were invited and answered, and the patient wishes to proceed as outlined above. I will be sure to keep you updated afterMr. Lexi returns here for further follow-up. Thank you again for your referral. Please do not hesitate to contact me if you have any further questions. Signed and authenticated by: Ulices Hurt [facility] [address], [place] [address] [place] [address] This message is confidential, intended only for the named recipient(s) and may contain information that is privileged or exempt from disclosure under applicable law. If you are not the intended recipient(s), you are notified that the dissemination, distribution or copying of this information is strictly prohibited. If you received this message in error, please notify the sender then delete this message. Patient verbalizes understanding of the information discussed. The above note was initiated by Pat Albarran, physician recording internet marketing assistant for Dr. Ulices Landers. This note has been reviewed by Dr. Landers, who has made his personal changes and impressions for this document. CC: Marlen Sher NP # SIGNED BY Ulices Landers (MARICARMEN)08/03/2022 09:39AM # REVISED BY Ulices ANDREWS)08/06/2022 03:04PM Past Medical History Past Medical History: Diabetes Mellitus, GERD/Reflux, Hyperlipidemia, Hypertension, Liver Disease, Renal Disease, Sleep Apnea/CPAP/BIPAP Additional Past Medical History / Comment(s): Neuropathy, back pain, no CPAP use, Cirrhosis, "kidneys don't always work right." History of Any Multi-Drug Resistant Organisms: None Reported Past Surgical History: Heart Catheterization, Joint Replacement, Orthopedic Surgery Additional Past Surgical History / Comment(s): Bilateral cataracts removed, bilateral hip replacements, right heal surgery with screws/plates/pins placed. Past Anesthesia/Blood Transfusion Reactions: No Reported Reaction Past Psychological History: Anxiety, Bipolar, Depression, Schizoaffective Disorder Smoking Status: Former smoker, Vaper Past Alcohol Use History: Abuse, Daily, Heavy Additional Past Alcohol Use History / Comment(s): Down to vaping a couple of times a day, had smoked for 20 yrs, 1 ppd, quit smoking 3 months ago. Quit drinking 9 months ago. Past Drug Use History: None Reported Additional Drug Use History / Comment(s): Hx of other drug use 5 years ago. - Past Family History Father Family Medical History: Myocardial Infarction ([place]) Additional Family Medical History / Comment(s): [place] in mid 30's. Mother Family Medical History: Dementia family Additional Family Medical History / Comment(s): Anxiety. Medications and Allergies Home Medications Medication Instructions Recorded Confirmed Type Aspirin EC [Ecotrin Low Dose] 81 mg PO DAILY 30 Days tab 08/17/21 07/31/22 Rx Calcium Carbonate [Tums] 500 mg PO QID PRN 30 Days 08/17/21 07/31/22 Rx Ferrous Sulfate [Iron (65 MG 325 mg PO DAILY 30 Days tab 08/17/21 07/31/22 Rx Elemental)] Melatonin 10 mg PO HS 30 Days tablet 08/17/21 07/31/22 Rx Mirtazapine [Remeron] 15 mg PO HS 30 Days tab 08/17/21 07/31/22 Rx Pantoprazole [Protonix] 40 mg PO HS 30 Days tab 08/17/21 07/31/22 Rx Pravastatin Sodium [Pravachol] 40 mg PO HS 30 Days tab 08/17/21 07/31/22 Rx Vitamin B Complex 1 cap PO DAILY 30 Days cap 08/17/21 07/31/22 Rx Ziprasidone [Geodon] 40 mg PO BID 30 Days cap 08/17/21 07/31/22 Rx busPIRone HCL 15 mg PO BID 30 Days tab 08/17/21 07/31/22 Rx glipiZIDE [Glucotrol] 20 mg PO BID 30 Days tab 08/17/21 07/31/22 Rx metFORMIN HCL [Glucophage] 1,000 mg PO BID 30 Days #60 tab 08/17/21 07/31/22 Rx Multivitamins, Thera [Multivitamin 1 tab PO DAILY 10/07/21 07/31/22 History (formulary)] modafiniL [Provigil] 200 mg PO DAILY 10/19/21 07/31/22 History Gabapentin 800 mg PO QID 01/10/22 07/31/22 History Cyclobenzaprine [Flexeril] 10 mg PO TID PRN 04/25/22 07/31/22 History Magnesium Oxide [Mag-Ox] 400 mg PO DAILY 04/25/22 07/31/22 History Pregabalin [Lyrica] 50 mg PO TID 04/25/22 07/31/22 History carvediloL [Coreg] 25 mg PO BID 04/25/22 07/31/22 History clonazePAM 1 mg PO DIRECTED PRN 04/25/22 07/31/22 History Allergies Allergy/AdvReac Type Severity Reaction Status Date / Time thimerosal Allergy Severe Rash/Hives/throat Verified 07/31/22 11:33 swelling neomycin Allergy Rash/Hives Verified 07/31/22 11:33 Physical Examination Osteopathic Statement: *. No significant issues noted on an osteopathic structural exam other than those noted in the History and Physical/Consult.
[~2022-08-07 05:40] MED LIST: DEXAMETHASONE SOD PHOSPHATE 4 MG/ML 1 ML VIAL IV ONE; HYDROmorphone 0.5 MG/0.5 ML SYRINGE IVP PRN; LIDOCAINE 1% (10MG/ML) FOR IV START INTRADERMA PRN; ONDANSETRON 4 MG/2 ML VIAL IVP ONE
[2022-08-07] MEDS: LACTATED RINGERS 1,000 ML IV SCH ×2 (06:20→16:36)
[2022-08-07] MEDS ORDERED: TRANEXAMIC ACID 1,000 MG in SODIUM CHLORIDE 0.9% 100 ML IVPB ONE ×2 (06:22→06:23)
[2022-08-07] MEDS ORDERED: ONDANSETRON 4 MG/2 ML VIAL ONE (06:58)
[2022-08-07 06:59] LABS: Glucose,Whole Blood 177 mg/dL (70-110)
[2022-08-07] MEDS ORDERED: MIDAZOLAM 2 MG/2 ML VIAL IVP ONE (07:02)
[2022-08-07] MEDS ORDERED: fentaNYL (PF) 50 MCG/1 ML VIAL IVP ONE (07:03)
[2022-08-07 07:09] LABS: INR 0.9 (<1.2); Prothrombin Time 9.5 sec (9.0-12.0)
[2022-08-07] MEDS ORDERED: WATER FOR INJECTION, STERILE 10 ML VIAL IV ONE (07:30)
[2022-08-07] MEDS ORDERED: ALBUMIN HUMAN 5% (25gm) 500 ML VIAL IVPB ONE (07:30)
[2022-08-07] MEDS ORDERED: PHENYLEPHRINE-0.9% NACL SYG 1,000 MCG/10 ML SYRINGE ONE (07:30)
[2022-08-07] MEDS ORDERED: SODIUM CHLORIDE 0.9% 100 ML BAG ONE (07:30)
[2022-08-07] MEDS ORDERED: PROPOFOL 10 MG/ML 20 ML VIAL IV ONE (07:30)
[2022-08-07] MEDS ORDERED: ROCURONIUM 10 MG/ML (5 ML VIAL) IV ONE (07:30)
[2022-08-07] MEDS ORDERED: fentaNYL (PF) 50 MCG/ML 2 ML AMP ONE (07:30)
[2022-08-07] MEDS ORDERED: GLYCOPYRROLATE 0.2 MG/ML 2 ML VIAL ONE (07:30)
[2022-08-07] MEDS ORDERED: KETAMINE 10 MG/ML 20 ML VIAL ONE (07:30)
[2022-08-07] MEDS ORDERED: MIDAZOLAM 2 MG/2 ML VIAL ONE (07:30)
[2022-08-07] MEDS ORDERED: SUCCINYLCHOLINE CHLORIDE 200 MG/10 ML VIAL IV ONE (07:30)
[2022-08-07] MEDS ORDERED: LIDOCAINE 2% INJ 20 MG/ML (2 ML VIAL) ONE (07:30)
[2022-08-07] MEDS ORDERED: ceFAZolin 1,000 MG VIAL ONE (07:30)
[2022-08-07] MEDS ORDERED: NEOSTIGMINE 1 MG/ML 10 ML VIAL ONE (07:30)
[2022-08-07] MEDS ORDERED: ePHEDrine 50 MG/ML 1 ML VIAL ONE (07:30)
[2022-08-07] MEDS ORDERED: GELATIN SPONGE,ABSORB (LARGE) 1 EACH SPONGE TOPICAL ONE (08:49)
[2022-08-07] MEDS ORDERED: THROMBIN (BOVINE) 5,000 UNIT VIAL TOPICAL ONE (08:50)
[2022-08-07] MEDS ORDERED: LACTATED RINGERS 1,000 ML IV ONE ×3 (09:34→11:15)
[2022-08-07 09:57] LABS: Glucose,Whole Blood 128 mg/dL (70-110)
[2022-08-07] MEDS ORDERED: VANCOMYCIN 1,000 MG VIAL MISCELLANE ONE (12:30)
--- NOTE | 2022-08-07 12:55 | FL ---
EXAMINATION TYPE: FL guidance operating room DATE OF EXAM: 08/07/2022 HISTORY: Fluoroscopy time 1 min 54 sec fluoro time. 4237.97 DAP. of fluoroscopy provided. IMPRESSION: 1. Fluoroscopy time.
--- NOTE | 2022-08-07 12:55 | XR ---
EXAM TYPE: LUMBAR SPINE X RAY SERIES COMPARISON: NONE HISTORY: Lumbar fusion TECHNIQUE: 12 intraoperative views are submitted. FINDINGS: Limited intraoperative resolution images demonstrate surgical changes involving the lumbar spine whic h appear in near anatomic alignment. IMPRESSION: 1. Postsurgical changes
[2022-08-07] MEDS ORDERED: MAGNESIUM HYDROXIDE 2,400 MG/10 ML CUP PO PRN (13:27)
[2022-08-07] MEDS ORDERED: SENNOSIDES-DOCUSATE SODIUM 1 EACH TAB PO PRN (13:27)
[2022-08-07] MEDS ORDERED: CYCLOBENZAPRINE 5 MG TAB PO PRN (13:27)
[2022-08-07] MEDS ORDERED: HYDROmorphone 0.5 MG/0.5 ML SYRINGE IVP PRN (13:27)
[2022-08-07] MEDS ORDERED: HYDROcodone/APAP 5-325MG 1 EACH TAB PO PRN (13:27)
[2022-08-07 13:58] LABS: Glucose,Whole Blood 185 mg/dL (70-110)
--- NOTE | 2022-08-07 14:36 | XR ---
EXAMINATION TYPE: XR chest 1V confirm line [facility] DATE OF EXAM: 08/07/2022 COMPARISON: NONE HISTORY: Central line placement TECHNIQUE: Single frontal view of the chest is obtained. FINDINGS: Elevated right hemidiaphragm with bibasilar subsegmental consolidation. Central line seen with the tip overlying the right atrium and no sizable pneumothorax. No overt failure. Heart size nor mal. IMPRESSION: 1. Central line overlying the right atrium with no sizable pneumothorax. 2. Bibasilar atelectasis or infiltrate.
[2022-08-07] MEDS: HYDROmorphone 1 MG/ML 1 ML SYRINGE IVP PRN ×3 (16:10→22:41)
[2022-08-07] MEDS: GABAPENTIN 300 MG CAP PO SCH ×2 (16:36→20:28)
[2022-08-07] MEDS ORDERED: clonazePAM 1 MG TAB PO PRN (16:42)
[2022-08-07] MEDS ORDERED: NON FORMULARY DRUG (Vitamin B Complex [Vitamin B Complex] 1 EACH Capsule) PO SCH (16:45)
--- NOTE | 2022-08-07 17:06 | P.OP ---
Date of Procedure: 08/07/22 Preoperative Diagnosis: 1. L3-S1 severe spondylosis with severe stenosis 2. L3-4 Grade I spondylolisthesis, L4-5 Grade I spondylolisthesis 3. LE weakness with paresthesias 4. Neurogenic claudication Postoperative Diagnosis: 1. L3-S1 severe spondylosis with severe stenosis 2. L3-4 Grade I spondylolisthesis, L4-5 Grade I spondylolisthesis 3. LE weakness with paresthesias 4. Neurogenic claudication Procedure(s) Performed: 1. L3-4, L4-5 intradiscal osteotomy for deformity correction, 3 column. (56041) 2. L3-4, L4-5, L5-S1 posteriolateral and interbody fusion (53139, [id number]) 3. Bilateral open sacroilliac joint fusion for long construct stability and rigidity (02837/50) 4. L3-4, L4-5, L5-S1 bilateral laminectomy, complete facetectcomy and foraminotomy beyond that needed for cage placement, for neural decompression as well as deformity correction (25161, [id number]) 5. Segmental instrumentation L3-Pelvis (15858) 6. Attachment of the caudal end of the construct to the bony pelvis not sacrum (85645) 7. Insertion of biomechanical device L3-4, L4-5, L5-S1 ([id number]) 8. Use of Syntropharma Navigation for screw placement (38521) Use of IONM all screws testing above 17 mA Implants: -Globus Creo screw and tawnya system -x1 Amplify cage L5-S1 -x2 Zivation explandable cages L3-4, L4-5 -MagnatOs, Allocel, iFactor, Autograft, Allograft Anesthesia: PERNELLA Surgeon: Ulices Landers Assistant Director Of Public Works #1: Christopher Becker (Was present and assisted with all aspects of the case from positioning to dressing placement) Estimated Blood Loss (ml): 450 IV fluids (ml): 2,500 Urine output (ml): 330 Pathology: none sent Condition: stable Disposition: PACU Indications for Procedure: Andrea Elliott is a 57 year old male presenting for evaluation of onset of Low back pain, LE weakness, difficulty with ambulating distances, severe increase in his low back pain. It was my pleasure to have seen and examined Mr. Elliott. In our visit today we have had a chance to go over subjective complaints, physical examination findings and treatments, including the natural course history without intervention and various interventional options. The imaging demonstrates L3-S1 severe spondylosis with stenosis, central and foraminal with severe disc dessication, height loss and alignment derrangement . On physical exam, Mr. Elliott demonstrates Low back pain with motion, limited ROM seconday to pain, weakness in LE, paresthesia, radiculopathy all significantly impating his day to day activities . I explained to the patient that as his condition progresses it could cause Continued sx, worsening sx, further neurological compromise or even deficit, continued back pain, more debility . At this time, based on the patients imaging and physical exam, I recommend surgery in the form or a: L3-Pelvis decompression and fusion . I discussed the risk and benefits of this procedure at length with Mr. Elliott. The patient his wifeagreed to consider pursuing the procedure mentioned above. Plan: 1. L3 to Pelvis decompression and fusion 2. Follow up with PCP for surgical clearance Description of Procedure: L3-Pelvis Decompression and fusion The patient was seen and examined in the preoperative area. All preoperative protocols were followed. Informed consent was obtained, risks and benefits of the procedure were discussed at length. Risks including bleeding infection damage to the surrounding tissue and risk of re-operation were discussed with the patient. Risk of anesthesia up to and including was discussed with the patient. These are outlined in the risk review. They were willing to accept these risks and all the risks of surgery. The patient was given a weight-based dose of antibiotics in the form of 3 g Ancef. The patient was seen and evaluated by the anesthesia team who deemed them fit for surgery. The site was marked, the patient was willing to proceed with the procedure. The patient was transferred to the operative suite by the Department of anesthesia. They were then drifted off to sleep by the department anesthesia and GETA was performed. The patient tolerated this well. Cunningham catheter was placed by nursing staff, a-traumatically. Once confirmation of lines and ventilation the patient was transferred to a prone Trios spine table very carefully. The head was secured and stable. Xray confirmed alignment. All bony prominences including wrists, elbows, axilla, chest, hips, and thighs, and feet were padded very well. Special attention was paid to the genitalia, and these were padded accordingly. SCDs were placed on bilateral lower extremities and were connected. Arms were well padded and placed at 90/90 up and out and well padded. Safety strap and tape placed on the patient. Once in position, again we confirmed good ventilation capabilities and that lines were running appropriately. The patients lumbosacral pelvic was then exposed. Hair was removed for incision. 1010s were placed outlining the incision site. Standard alcohol was used to clean the incision site and allowed to dry. C-arm was used to bio-kasey the patient and confirm level for incision which was marked with a skin marker. Operative briefing was performed with all teams and everyone in agreement to proceed. The patient was then prepped and draped in a normal sterile fashion. Timeout was then performed, and all parties agreed with the procedure to be performed. Midline skin incision was then made over the previously bookmarked area and dissection taken down to the lumbosacral fascia which was identified and cleaned with a syed. There was excessive sub-q adipose that was obtrusive and needed to be retracted. Once midline was identified, fasciotomy was made over the SP of L2-S1 and pelvis. Subperiosteal dissection was then taken down over the lamina and facet joints and TPs were exposed and trough made posterolateral. TPs were then decorticated with a high speed alfredo for lateral fusion. Dissection was taken out over the sacrum to the pelvis. SI joint identified and modified Valdez starting point for pelvic screws identified as well. Retractors p laced. Wound was irrigated and lateral image with penfield 4 placed at the pars of L3 confirmed levels for operation. SP clamp was then placed for the Syntropharma navigation tracker and secured. The wound was then filled with NSS and Z-drape placed. A 3D Zhiem spin was then obtained and registered. Once confirmation of accuracy screws were then placed from L3-Pelvis using navigation. Navigated h igh speed alfredo was used to make a fire pilot hole followed by a navigated awl-tap passed through the pedicle into the body. A ball tip probe then confirmed within the pedicle. Screw was then measured and placed using a navigated screwdriver. After screws were placed from L3-S1, AP image confirmed safe placement of screws. Lateral images as well as navigation were then used to place bilateral pelvic screws. Starting point selected just lateral to the SI joint and S2 pseudo facet. Lateral image taken and alfredo used to make the fire pilot hole. Gearshift then used to pass into the pelvis under lateral imaging just above the sciatic notch. 30 deg/30deg iliac oblique then taken to confirm within the teardrop and ball tip probe used to probe good bone. Screw was then measured and selected and placed under lateral imaging. This was repeated on the contralateral side. Screws were then visualized and appeared safe.Repeating a similar process in an S2Ai approach, with a navigated alfredo, tap and gear shift, SI bone Torque screws were placed across the SI joints bilaterally for bilateral open SI fusion. The SI joints were decorticated with a highspeed alfredo as well and the screws were confirmed to be in good position under lateral, AP, Inlet and outlet views shows good purchase across the SI joint bilaterally. Screws were then tested, and reliably tested screws tested above 17 mA. We then proceeded to decompression, deformity correction and interbody placement. Starting at L5-S1, bilateral laminectomy, complete facetectomy and foraminotomies were performed using high speed bur, Kerrison rongure. There was exuberant bone formation, osteophytes and scar tissue surrounding these joints as well as the dura. Once exposed the neural elements were protected and the disc space was accessed. Osteotome was used to make osteotomy in L5 and S1 and for complete disc removal. A box osteotome was then used to widen this bilaterally. This was passed into the anterior 1/3 of L5. This allowed for loosening of this level and correction. An Amplify cage was then selected based on shaving and trials. Bleeding endplates were encountered and cartilage removed. Autograft, allograft were then placed anterior to the cage. The cage was then impacted into place under lateral imaging while protecting neural elements. The cage was then expanded into position and showed good lift and correction. Sikhism of lordosis and height achieved. Meticulous hemostasis then performed. Cage was backfilled with DBM and the area irrigated. We then proceeded to L4-5. At L4-5, bilateral laminectomy, complete facetectomy and foraminotomy was performed as described above. Again, exuberant scar tissue and bone formation was encountered and at this level specifically in the foramen. There was also a large disc osteophyte complex that was identified once disc space was found. The dura was carefully dissected off this anteriorly and b/l. Once encountered, the disc space was then accessed in a similar fashion and neural elements protected. Intradiscal, 3 column osteotomies, for deformity correction was then performed using osteotome and box osteotome to access the anterior 1/3 of vertebral body and loosen this for deformity correction. Once completed and complete discectomy performed there was good mobility at this level. Cage was then sized and selected. Autograft and allograft was then placed anterior in the disc space and the cage was then inserted and impacted into place under lateral. AP image, as before, was taken to ensure midline placement. The cage was then expanded into position. This recreated height and lordosis in this area well. The cage was tested and was very stable. The wound was irrigated. Meticulous hemostasis then performed, and attention turned to L3-4. At L3-4 again bilateral laminectomy, complete facetectomy and foraminotomy were performed. Exuberant scar tissue and bone formation was encountered and at this level specifically around the pars due to bilateral pars defects that were likely chronic in this area causing the slip. The dura was carefully dissected off this anteriorly and b/l. Once encountered, the disc space was then accessed in a similar fashion and neural elements protected. Intradiscal, 3 column osteotomies, for deformity correction was then performed at this level as described above. Cage was then placed under lateral image, expanded and had good height, lordosis and deformity correction. The wound was irrigated, and meticulous hemostasis performed once again. Attention was then drawn to tawnya placement. Rods were selected, measured, cut and bent to appropriate lordosis. They were then secured into pelvic screws b/l. Sequential reduction then done into each screw and set screw placed. Set screws were then final tightened and lateral image showed good lordosis holiness as well as height holiness at each level. Once rods were secured, cross links were selected and placed and final tightened. The wound was then irrigated with 3L Ancef irrigation, 3L gentamicin irrigation and 3L NSS. Surgicel was then placed on the dura, which was inspected and had no injury. Then, in the posterolateral gutter was placed, MagnatOs, Autograft and allograft. This was impacted into position and surgical placed over it. 2g Vanco powder was then placed deep in the wound. A deep, subfascial drain was placed. We then proceeded with layered closure. #1 PDS placed in the deep fascia. 0 Vicryl placed in the deep subq, 2-0 placed in the superficial subq and kasi placed in the skin. The wound edges approximated very well. The wound was then cleaned with ETOH and dressed with optifoam dressing, drain sponges and tegaderms. Drains sewed into position. IONM confirmed no changes. The patient was then transferred off the [facility] spine table to their hospital bed a-traumatically. Drains continued to hold suction. The patient was then extubated and transferred to the ICU in stable condition having tolerated the procedure with no complications.
--- NOTE | 2022-08-07 17:11 | P.CONS ---
History of Present Illness - Reason for Consult Consult date: 08/07/22 - Chief Complaint Management - History of Present Illness This is a pleasant 57-year-old male with past medical history of hypertension, diabetes, hyperlipidemia, MARRY on CPAP, lumbar radiculopathy, anxiety, insomnia who is postop day zero lumbar decompression and fusion by Dr. Landers. Patient was a little difficult to arouse since he just came from postop. However, he did answer questions appropriately. Patient's stated that he just felt tired went to sleep. Patient denies chest pain, shortness breath, nausea, vomiting, fever, or chills. Vitals are stable with a blood pressure of 129/80 hurt rate 92 respiratory rate 16 oxygen saturation 93% on 2 L. Review of Systems A 14 point review of systems was assessed patient was only positive for those discussed in HPI Past Medical History Past Medical History: Diabetes Mellitus, GERD/Reflux, Hyperlipidemia, Hypertension, Liver Disease, Renal Disease, Sleep Apnea/CPAP/BIPAP Additional Past Medical History / Comment(s): Neuropathy, back pain, no CPAP use, Cirrhosis, "kidneys don't always work right." History of Any Multi-Drug Resistant Organisms: None Reported Past Surgical History: Heart Catheterization, Joint Replacement, Orthopedic Surgery Additional Past Surgical History / Comment(s): Bilateral cataracts removed, bilateral hip replacements, right heal surgery with screws/plates/pins placed. Past Anesthesia/Blood Transfusion Reactions: No Reported Reaction Smoking Status: Former smoker, Vaper - Past Family History Father Family Medical History: Myocardial Infarction (AL) Additional Family Medical History / Comment(s): AL in mid 30's. Mother Family Medical History: Dementia family Additional Family Medical History / Comment(s): Anxiety. Medications and Allergies Home Medications Medication Instructions Recorded Confirmed Type Aspirin EC [Ecotrin Low Dose] 81 mg PO DAILY 30 Days tab 08/17/21 08/07/22 Rx Calcium Carbonate [Tums] 500 mg PO QID PRN 30 Days 08/17/21 08/07/22 Rx Ferrous Sulfate [Iron (65 MG 325 mg PO DAILY 30 Days tab 08/17/21 08/07/22 Rx Elemental)] Melatonin 10 mg PO HS 30 Days tablet 08/17/21 08/07/22 Rx Mirtazapine [Remeron] 15 mg PO HS 30 Days tab 08/17/21 08/07/22 Rx Pantoprazole [Protonix] 40 mg PO HS 30 Days tab 08/17/21 08/07/22 Rx Pravastatin Sodium [Pravachol] 40 mg PO HS 30 Days tab 08/17/21 08/07/22 Rx Vitamin B Complex 1 cap PO DAILY 30 Days cap 08/17/21 08/07/22 Rx Ziprasidone [Geodon] 40 mg PO BID 30 Days cap 08/17/21 08/07/22 Rx busPIRone HCL 15 mg PO BID 30 Days tab 08/17/21 08/07/22 Rx glipiZIDE [Glucotrol] 20 mg PO BID 30 Days tab 08/17/21 08/07/22 Rx metFORMIN HCL [Glucophage] 1,000 mg PO BID 30 Days #60 tab 08/17/21 08/07/22 Rx Multivitamins, Thera [Multivitamin 1 tab PO DAILY 10/07/21 08/07/22 History (formulary)] modafiniL [Provigil] 200 mg PO DAILY 10/19/21 08/07/22 History Gabapentin 800 mg PO QID 01/10/22 08/07/22 History Cyclobenzaprine [Flexeril] 10 mg PO TID PRN 04/25/22 08/07/22 History Magnesium Oxide [Mag-Ox] 400 mg PO DAILY 04/25/22 08/07/22 History Pregabalin [Lyrica] 50 mg PO TID 04/25/22 08/07/22 History carvediloL [Coreg] 25 mg PO BID 04/25/22 08/07/22 History clonazePAM 1 mg PO DIRECTED PRN 04/25/22 08/07/22 History Allergies Allergy/AdvReac Type Severity Reaction Status Date / Time thimerosal Allergy Severe Rash/Hives/throat Verified 08/07/22 06:15 swelling neomycin Allergy Rash/Hives Verified 08/07/22 06:15 Physical Exam Osteopathic Statement: *. No significant issues noted on an osteopathic structural exam other than those noted in the History and Physical/Consult. Vitals: Vital Signs Temp Pulse Resp BP Pulse Ox 08/07/22 15:26 92 16 129/80 93 L 08/07/22 14:56 95 16 131/87 94 L 08/07/22 14:41 95 15 126/87 92 L 08/07/22 14:26 95 15 130/88 08/07/22 14:10 100 16 129/86 99 08/07/22 13:44 96.8 F L 105 H 16 115/76 08/07/22 07:32 98 18 112/78 100 08/07/22 07:22 98 18 115/70 100 08/07/22 07:17 100 18 117/73 100 08/07/22 07:12 98 18 122/82 100 08/07/22 07:07 95 18 120/80 100 08/07/22 06:31 98.2 F 110 H 18 143/94 98 Intake and Output 08/07/22 08/07/22 08/07/22 06:59 14:59 22:59 Intake Total 100 4700 Output Total 1225 Balance 100 3475 Intake: IV 100 4700 Output: Urine 775 Estimated Blood Loss 450 Other: Weight 87.2 kg 87.2 kg General: [non toxic], [no distress], [appears at stated age] Derm: [warm], [dry] Head: [atraumatic], [normocephalic], [symmetric] Eyes: [EOMI], [no lid lag], [anicteric sclera] Mouth: [no lip lesion], [mucus membranes moist] Cardiovascular: [S1S2 reg], [no murmur], [positive posterior tibial pulse bilateral], Lungs: [CTA bilateral], [no rhonchi, no rales] , [no accessory muscle use] Abdominal: [soft], [ nontender to palpation], [no guarding], [no appreciable organomegaly] Ext: [no gross muscle atrophy], [no edema], [no contractures] Neuro: [ CN II-XI grossly intact], [no focal neuro deficits] Psych: [Alert], [oriented], [appropriate affect] Results Labs: Abnormal Lab Results - Last 24 Hours (Table) 08/07/22 08/07/22 08/07/22 Range/Units 06:57 09:55 13:56 POC Glucose (mg/dL) 177 H 128 H 185 H (70-110) mg/dL Assessment and Plan Assessment: 1. Hypertension Patient is currently normotensive likely due to anesthesia and pain medications Resume home medications with parameters placed Carvedilol 25 mg by mouth twice a day with parameters hold if systolic blood pressure is less than or equal to 110 and if heart rate is less than or equal to 55 Check BP before giving medication to patient 2. Rmj-[id number]-vscdhvgnr diabetes mellitus Insulin sliding scale Decrease glipizide to 10 mg by mouth twice a day from 20 mg by mouth twice a day Carbohydrate diet Hold metformin Glucose monitoring every 6 hours 3. Postop day 0 lumbar decompression and fusion Orthopedic primary team following Pain control per primary 4. Chronic conditions: Hyperlipidemia, CAD with PTCA 1 , sleep apnea hence CPAP, anxiety, neuropathy, insomnia and chronic pain Resume home medications and CPAP. 5. GI DVT prophylaxis 6. A.m. labs Thank you for allowing sound physicians to participate in patient's care. If any questions please do not hesitate to call sound team. Time with Patient: Greater than 30
[2022-08-07 17:27] LABS: Glucose,Whole Blood 183 mg/dL (70-110)
[2022-08-07] MEDS: ACETAMINOPHEN TAB 325 MG TAB PO SCH ×2 (17:50→23:51)
[2022-08-07] MEDS: carvediloL 12.5 MG TAB PO SCH (17:51)
[2022-08-07] MEDS: glipiZIDE 10 MG TAB PO SCH (17:51)
[2022-08-07] MEDS: INSULIN ASPART (NovoLOG) 100 UNIT/ML VIAL SQ SCH (17:51)
--- NOTE | 2022-08-07 18:16 | CT ---
EXAMINATION TYPE: CT lumbar spine wo con DATE OF EXAM: 08/07/2022 COMPARISON: 08/03/2021 HISTORY: L3-pelvis decompression/fusion CT DLP: 2079.6 mGycm Automated exposure control for dose reduction was used. Images obtained from the level of T12-S3 vertebra with no contrast. The lumbar vertebrae have fairly normal alignment. There is tawnya and screws fusing posteriorly the lum bar spine from the level of L3-S2 vertebra. There is sclerosis of the vertebral bodies at L4-5. There is disc prosthesis from L3 to S1. There is metal artifact which obscures the detail. No focal bone d estruction. There is multilevel laminectomy defect. There are small soft tissue air bubbles posterior ly on the right side in the subcutaneous tissues. No significant fluid collection. No lumbar paraspin al mass. There is a mild degenerative subluxation at L3-4 of 5 mm unchanged. IMPRESSION: Multilevel posterior fusion surgery. No complicating process seen. Recent surgery. There is first-deg ree L3-4 spondylolisthesis. Unchanged.
[2022-08-07] MEDS: MELATONIN 5 MG TABLET PO SCH (20:27)
[2022-08-07] MEDS: ZIPRASIDONE 40 MG CAP PO SCH (20:28)
[2022-08-07] MEDS: MIRTAZAPINE 15 MG TAB PO SCH (20:28)
[2022-08-07] MEDS: PANTOPRAZOLE 40 MG TABLET PO SCH (20:28)
[2022-08-07] MEDS: PRAVASTATIN SODIUM 40 MG TAB PO SCH (20:28)
[2022-08-07] MEDS: busPIRone HCl 5 MG TAB PO SCH (20:28)
[2022-08-07] MEDS: HYDROcodone/APAP 10-325MG 1 EACH TAB PO PRN (20:41)
[2022-08-07 20:52] LABS: Glucose,Whole Blood 196 mg/dL (70-110)
[2022-08-07] MEDS ORDERED: glipiZIDE 10 MG TAB PO SCH (21:00)
[2022-08-08] MEDS: HYDROcodone/APAP 10-325MG 1 EACH TAB PO PRN ×4 (02:05→22:56)
[2022-08-08] MEDS: ACETAMINOPHEN TAB 325 MG TAB PO SCH ×4 (05:30→23:59)
[2022-08-08 05:59] LABS: Glucose,Whole Blood 261 mg/dL (70-110)
[2022-08-08] MEDS: glipiZIDE 10 MG TAB PO SCH ×2 (06:50→17:35)
[2022-08-08] MEDS: INSULIN ASPART (NovoLOG) 100 UNIT/ML VIAL SQ SCH ×3 (06:50→17:36)
[2022-08-08] MEDS: ASPIRIN 81 MG PO SCH (07:32)
[2022-08-08] MEDS: ZIPRASIDONE 40 MG CAP PO SCH ×2 (07:32→20:27)
[2022-08-08] MEDS: MAGNESIUM OXIDE 400 MG TAB PO SCH (07:32)
[2022-08-08] MEDS: FERROUS SULFATE 325 MG TAB PO SCH (07:32)
[2022-08-08] MEDS: MULTIVITAMINS, THERA 1 EACH TAB PO SCH (07:32)
[2022-08-08] MEDS: GABAPENTIN 300 MG CAP PO SCH ×3 (07:32→20:27)
[2022-08-08] MEDS: HYDROmorphone 1 MG/ML 1 ML SYRINGE IVP PRN ×2 (07:33→10:22)
[2022-08-08] MEDS: carvediloL 12.5 MG TAB PO SCH ×2 (07:33→17:35)
[2022-08-08] MEDS: busPIRone HCl 5 MG TAB PO SCH ×2 (07:33→20:27)
--- NOTE | 2022-08-08 08:31 | P.PN ---
Subjective Progress Note Date: 08/08/22 Principal diagnosis: 1. L3-S1 severe spondylosis with severe stenosis 2. L3-4 Grade I spondylolisthesis, L4-5 Grade I spondylolisthesis 3. LE weakness with paresthesias 4. Neurogenic claudication Patient seen and examined this morning. Patient does report that he had a rough night last night, he admits to confusion from anesthetic. Upon entering the room patient was in disarray with gown removed, camarena catheter taut, and Hemovac laying on floor. Patient was assisted with placing gown on and repositioning in bed. Patient is currently resting in bed. He does have complaint of lower back pain. Medication is being provided. Patient does report improvement of his symptoms in his bilateral lower extremities since procedure, denies any numbness tingling Encouraged patient to work with physical therapy today and to be up in chair for all meals. LSO brace is present at bedside. Surgical dressing is intact with Hemovac present, with output of 30mls. Continue to encourage patient to use incentive spirometer. Patient is currently afebrile, denies nausea/vomiting, or chest pain. Objective - Vital Signs Vital signs: Vital Signs Temp 100.5 F H 08/08/22 01:04 Pulse 147 H 08/08/22 01:04 Resp 22 08/08/22 01:04 BP 125/70 08/08/22 01:04 Pulse Ox 93 L 08/08/22 01:04 FiO2 Intake & Output 08/07/22 08/08/22 08/08/22 18:59 06:59 18:59 Intake Total 4700 Output Total 1245 2610 Balance 3455 -2610 Weight 87.2 kg Intake: IV 4700 Output: Drainage 20 10 Right Back 20 10 Urine 775 2600 Estimated Blood Loss 450 Other: Voiding Method Indwelling Catheter - Exam Physical Examination General: The patient is awake and alert, in no acute distress Skin: Skin is warm and dry with no obvious rashes or lesions. Surgical incision to the lumbar spine, dressing is intact with Hemovac present. Eye: Pupils are equal, round and reactive to light, extra-ocular movements are intact; there is normal conjunctiva bilaterally. Neck: The neck is supple, there is no tenderness and ROM intact. Cardiovascular: There is a regular rate and rhythm. No murmur, rub or gallop is appreciated. Respiratory: Lungs are clear to auscultation, respirations are non-labored, breath sounds are equal. Gastrointestinal: Soft, non-distended, non-tender abdomen. Back: There is no tenderness to palpation in the midline, paralumbar, parathoracic or buttocks region. There is no obvious deformity . Musculoskeletal: ROM limited secondary to pain and stiffness from surgical procedure. Muscle strength in all major muscle groups of bilateral upper extremities 5/5, bilateral lower extremities 4/5. Neurological: CN 2-12 intact. There are no obvious motor or sensory deficits. Movement and coordination equal and intact. Sensory exam to light touch intact C5-T1 and intact from L2-S1. Reflexes 2/4 in bilateral upper and lower extremities. Negative Hoffmans, babinski, and clonus signs. Psychiatric: Cooperative, appropriate mood & affect, normal judgment. - Labs Labs: Abnormal Lab Results - Last 24 Hours (Table) 08/07/22 08/07/22 08/07/22 Range/Units 09:55 13:56 17:24 POC Glucose (mg/dL) 128 H 185 H 183 H (70-110) mg/dL 08/07/22 08/08/22 Range/Units 20:50 05:57 POC Glucose (mg/dL) 196 H 261 H (70-110) mg/dL Assessment and Plan Assessment: Postop day 1: [id number] decompression and fusion with bilateral SI fusion 1. L3-S1 severe spondylosis with severe stenosis 2. L3-4 Grade I spondylolisthesis, L4-5 Grade I spondylolisthesis 3. LE weakness with paresthesias 4. Neurogenic claudication Plan: -Appreciate siebel consultant and team management. -Activity: Ambulate QID, OOB all meals, up and about, limit lifting bending twisting to less than 5 lbs. Use walker or cane if needed for stability. -Daily PT/OT, increase ambulation strength and balance. -LSO Brace when up and about, not needed in bed or chair -Pain control: Adequate at this time -Meds: reviewed -GI ppx: senna, Miralax -DC camarena when up and about, bedside commode if needed -DVT PPX: OK to restart Heparin tonight -Hygiene: Shower today. Maintain dressing clean and dry. Meticulous cleaning after BMs away from the incision site -Drains: Maintain for now. DC later today pending out put and PT -Encourage IS 10x/hr -Dispo: Anticipate discharge home tomorrow with homecare *I reviewed and discussed this case with my attending Dr. Landers, whom has reviewed this chart and films and is in agreement with assessment and plan of care as outlined above. I have personally seen and examined the patient, performed the documentation and the assessment and plan as written. Number of minutes spent on the visit: 30m.
[2022-08-08 09:44] LABS: ALT 44 U/L (10-49); AST 66 U/L (14-35); African American GFR (CKD) 76.8 (60.0-200.0); Albumin 3.5 g/dL (3.8-4.9); Albumin/Globulin Ratio 1.96 (1.60-3.17); Alkaline Phosphatase 54 U/L (41-126); Blood Urea Nitrogen 12.6 mg/dL (9.0-27.0); Calcium 7.9 mg/dL (8.7-10.3); Carbon Dioxide 23.7 mmol/L (20.0-27.5); Chloride 100 mmol/L (96-109); Globulin 1.8 g/dL (1.6-3.3); Glucose 289 mg/dL (70-110); Magnesium 1.5 mg/dL (1.5-2.4); Non-African American GFR(CKD) 66.3 (60.0-200.0); Potassium 4.6 mmol/L (3.5-5.5); Sodium 135 mmol/L (135-145); Total Bilirubin <0.15 mg/dL (0.30-1.20); Total Protein 5.2 g/dL (6.2-8.2)
[2022-08-08 09:57] LABS: Basophils # (A) 0.04 X 10*3/uL (0.00-0.10); Basophils % (A) 0.5 %; Eosinophils # (A) 0.08 X 10*3/uL (0.04-0.35); Eosinophils % (A) 0.9 %; HCT 26.1 % (39.6-50.0); HGB 8.4 g/dL (13.0-17.0); Immature Grans, Automated 0.6 %; Lymphocytes # (A) 1.45 X 10*3/uL (0.90-5.00); Lymphocytes % (A) 16.9 %; MCH 31.8 pg (27.0-32.0); MCHC 32.2 g/dL (32.0-37.0); MCV 98.9 fL (80.0-97.0); Mean Platelet Volume 10.5 fL (9.5-12.2); Monocytes % (A) 5.8 %; NRBC Per 100 WBC 0 /100 WBCS (0.0-0.0); Neutrophils # (A) 6.44 X 10*3/uL (1.80-7.70); Neutrophils % (A) 75.3 %; Platelet Count 206 X 10*3/uL (140-440); RBC 2.64 X 10*6/uL (4.40-5.60); RBC Morphology NORMAL; RDW 13.1 % (11.5-14.5); WBC 8.56 X 10*3/uL (4.50-10.00)
[2022-08-08 11:30] LABS: Glucose,Whole Blood 283 mg/dL (70-110)
--- NOTE | 2022-08-08 11:42 | P.ANPRN ---
Procedure Note - Anesthesia - Invasive Line Right Arterial Line Time Out Performed: Yes Date of Procedure: 08/07/22 Location of Patient: PreOp Preparation: Sterile Prep, Sterile Dressing Arterial Line Location: Radial Ultrasound Used: No Purpose - Visualization and Identification of Vasculature: No Narrative: Informed consent obtained from the patient. Procedure was performed under complete aseptic precautions. The left wrist is slightly extended and placed on a roll of cloth. Radial artery palpated and appeared to have a intact collateral circulation. Front of the wrist was cleaned with ChloraPrep. It was draped and 2 mL of 1% lidocaine was infiltrated and ability into the front of the wrist. A 20-gauge two and half inch Arrow arterial catheter was inserted and a bright red blood/back was noticed. It was connected to the pressure monitoring line and the flashback was confirmed. The line was sutured into the skin. Tegaderm dressing was applied. Patient tolerated the procedure very well with no apparent complications. Right Central Line Time Out Performed: Yes Date of Procedure: 08/07/22 Location of Patient: PreOp Preparation: Sterile Prep, Sterile Dressing Central Line Location: Internal Jugular Ultrasound Used: Yes Purpose - Visualization and Identification of Vasculature: Yes Image Stored and Saved: Yes Narrative: Central line placement per sterile protocol utilized. Informed consent obtained.Right Internal jugular vein cannulated under aseptic precautions. 3cc 1% lidocaine infiltrated initially after cleaning with iodine based prep and draping. Ultrasound used to locate the vein and Seldinger technique used. 7Fr triple-lumen central line inserted after the finding the needle with test pilot needle/catheter. The line is dressed with biopatch and tegaderm. Patient tolerated the procedure well.
[2022-08-08] MEDS: SENNOSIDES-DOCUSATE SODIUM 1 EACH TAB PO SCH (15:14)
--- NOTE | 2022-08-08 15:50 | P.PN ---
Subjective Progress Note Date: 08/08/22 Patient was seen and examined. No acute events overnight. Patient reports 8 out of 10 pain in his lower back. He is passing gas but no bowel movement. Agreeable for rehab. General: non toxic, no distress, appears at stated age Derm: warm, dry Head: atraumatic, normocephalic, symmetric Eyes: EOMI, no lid lag, anicteric sclera Mouth: no lip lesion, mucus membranes moist Cardiovascular: Tachycardic, no murmur Lungs: CTA bilateral, no rhonchi, no rales , no accessory muscle use Abdominal: soft, nontender to palpation, no guarding, no appreciable organomegaly, + bowel sounds, + camarena catheter Ext: no gross muscle atrophy, no edema, no contractures Neuro: no focal neuro deficits Psych: Alert, oriented, appropriate affect #Acute blood loss anemia #Diabetes mellitus with hyperglycemia Chronic conditions: hypertension, hyperlipidemia, CAD s/p stent, sleep apnea on CPAP, anxiety, neuropathy, insomnia Based on my assessment of this patient, this patient meets a moderate complexity level of care. I have reviewed the following applications development consultant notes: Orthopedic surgery note 08/08, ambulate QID, OK to restart heparin tonight, possibly discontinue drains and camarena catheter. I have reviewed the results of the following tests: CBC shows hemoglobin of 8.4 and MCV of 98.9. CMP shows glucose of 289, calcium of 7.9, AST of 66. [id number] glucose 183-283 over the past 24 hours. I have ordered the following tests: Agree with CBC ordered tomorrow morning. I have discussed the care of this patient with the following independent historian: None. I have independently interpreted the following test below: None. I have discussed the management of this patient with the following physician: None. This patient has a moderate risk of morbidity due to the following reasons: Patient has a chronic diagnosis of hypertension and diabetes mellitus. Most recent hemoglobin of 8.4. Expected resultant surgery. No indication for blood transfusion. Plans to repeat CBC tomorrow morning. Hemoglobin A1c 8.2. Blood glucose continues to be elevated. Increase NovoLog sliding scale to medium. BP 147/75 with pulse of 119. Continue Coreg 25 mg by mouth twice a day. Objective - Vital Signs Vital signs: Vital Signs Temp 98.2 F 08/08/22 14:24 Pulse 119 H 08/08/22 14:24 Resp 19 08/08/22 14:24 BP 147/75 08/08/22 14:24 Pulse Ox 96 08/08/22 14:24 FiO2 Intake & Output 08/07/22 08/08/22 08/08/22 18:59 06:59 18:59 Intake Total 4700 236 Output Total 1245 2610 1300 Balance 3455 -2610 -1064 Weight 87.2 kg Intake: IV 4700 Oral 236 Output: Drainage 20 10 Right Back 20 10 Urine 775 2600 1300 Estimated Blood Loss 450 Other: Voiding Method Indwelling Catheter Indwelling Catheter - Labs CBC & Chem 7: 08/08/22 03:55 08/08/22 03:55 Labs: Abnormal Lab Results - Last 24 Hours (Table) 08/07/22 08/07/22 08/08/22 Range/Units 17:24 20:50 03:55 RBC (4.40-5.60) X 10*6/uL Hgb (13.0-17.0) g/dL Hct (39.6-50.0) % MCV (80.0-97.0) fL Immature Gran # (0.00-0.04) X 10*3/uL BUN/Creatinine Ratio (12.00-20.00) Ratio Glucose (70-110) mg/dL POC Glucose (mg/dL) 183 H 196 H (70-110) mg/dL Hemoglobin A1c 8.2 H (0.0-6.0) % Calcium (8.7-10.3) mg/dL Total Bilirubin (0.30-1.20) mg/dL AST (14-35) U/L Total Protein (6.2-8.2) g/dL Albumin (3.8-4.9) g/dL 08/08/22 08/08/22 08/08/22 Range/Units 03:55 03:55 05:57 RBC 2.64 L (4.40-5.60) X 10*6/uL Hgb 8.4 L (13.0-17.0) g/dL Hct 26.1 L (39.6-50.0) % MCV 98.9 H (80.0-97.0) fL Immature Gran # 0.05 H (0.00-0.04) X 10*3/uL BUN/Creatinine Ratio 10.50 L (12.00-20.00) Ratio Glucose 289 H (70-110) mg/dL POC Glucose (mg/dL) 261 H (70-110) mg/dL Hemoglobin A1c (0.0-6.0) % Calcium 7.9 L (8.7-10.3) mg/dL Total Bilirubin <0.15 L (0.30-1.20) mg/dL AST 66 H (14-35) U/L Total Protein 5.2 L (6.2-8.2) g/dL Albumin 3.5 L (3.8-4.9) g/dL 08/08/22 Range/Units 11:28 RBC (4.40-5.60) X 10*6/uL Hgb (13.0-17.0) g/dL Hct (39.6-50.0) % MCV (80.0-97.0) fL Immature Gran # (0.00-0.04) X 10*3/uL BUN/Creatinine Ratio (12.00-20.00) Ratio Glucose (70-110) mg/dL POC Glucose (mg/dL) 283 H (70-110) mg/dL Hemoglobin A1c (0.0-6.0) % Calcium (8.7-10.3) mg/dL Total Bilirubin (0.30-1.20) mg/dL AST (14-35) U/L Total Protein (6.2-8.2) g/dL Albumin (3.8-4.9) g/dL
[2022-08-08] MEDS: CYCLOBENZAPRINE 5 MG TAB PO SCH ×2 (16:53→20:27)
[2022-08-08 17:02] LABS: Glucose,Whole Blood 263 mg/dL (70-110)
[2022-08-08] MEDS: LACTATED RINGERS 1,000 ML IV SCH (19:01)
[2022-08-08] MEDS: MIRTAZAPINE 15 MG TAB PO SCH (20:26)
[2022-08-08] MEDS: MELATONIN 5 MG TABLET PO SCH (20:26)
[2022-08-08] MEDS: PRAVASTATIN SODIUM 40 MG TAB PO SCH (20:27)
[2022-08-08] MEDS: PANTOPRAZOLE 40 MG TABLET PO SCH (20:27)
[2022-08-08 20:32] LABS: Glucose,Whole Blood 175 mg/dL (70-110)
[2022-08-09] MEDS: HYDROcodone/APAP 10-325MG 1 EACH TAB PO PRN ×5 (04:07→20:39)
[2022-08-09] MEDS: ACETAMINOPHEN TAB 325 MG TAB PO SCH ×3 (05:36→18:04)
[2022-08-09 05:46] LABS: Glucose,Whole Blood 234 mg/dL (70-110)
[2022-08-09 06:03] LABS: Basophils # (A) 0.1 k/uL (0-0.2); Basophils % (A) 1 %; Eosinophils # (A) 0.2 k/uL (0-0.7); Eosinophils % (A) 2 %; HCT 28.4 % (39.0-53.0); HGB 9.2 gm/dL (13.0-17.5); Lymphocytes # (A) 1.1 k/uL (1.0-4.8); Lymphocytes % (A) 11 %; MCH 31.7 pg (25.0-35.0); MCHC 32.4 g/dL (31.0-37.0); MCV 97.7 fL (80.0-100.0); Mean Platelet Volume 7.9; Monocytes # (A) 0.5 k/uL (0-1.0); Monocytes % (A) 5 %; Neutrophils # (A) 7.8 k/uL (1.3-7.7); Neutrophils % (A) 79 %; Platelet Count 202 k/uL (150-450); RBC 2.91 m/uL (4.30-5.90); RDW 13.2 % (11.5-15.5); WBC 9.9 k/uL (3.8-10.6)
[2022-08-09 06:20] LABS: African American GFR (CKD) >90 (>60 ml/min/1.73 sqM); Anion Gap 8 mmol/L; Blood Urea Nitrogen 8 mg/dL (9-20); Calcium 8.1 mg/dL (8.4-10.2); Carbon Dioxide 23 mmol/L (22-30); Chloride 103 mmol/L (98-107); Glucose 209 mg/dL (74-99); Non-African American GFR(CKD) >90 (>60 ml/min/1.73 sqM); Potassium 4.3 mmol/L (3.5-5.1); Sodium 134 mmol/L (137-145)
[2022-08-09 07:37] LABS: Glucose,Whole Blood 210 mg/dL (70-110)
[2022-08-09] MEDS: FERROUS SULFATE 325 MG TAB PO SCH (08:05)
[2022-08-09] MEDS: MULTIVITAMINS, THERA 1 EACH TAB PO SCH (08:06)
[2022-08-09] MEDS: GABAPENTIN 300 MG CAP PO SCH ×3 (08:06→22:11)
[2022-08-09] MEDS: glipiZIDE 10 MG TAB PO SCH ×2 (08:06→18:03)
[2022-08-09] MEDS: SENNOSIDES-DOCUSATE SODIUM 1 EACH TAB PO SCH (08:06)
[2022-08-09] MEDS: ZIPRASIDONE 40 MG CAP PO SCH ×2 (08:06→22:11)
[2022-08-09] MEDS: MAGNESIUM OXIDE 400 MG TAB PO SCH (08:06)
[2022-08-09] MEDS: carvediloL 12.5 MG TAB PO SCH ×2 (08:06→18:03)
[2022-08-09] MEDS: CYCLOBENZAPRINE 5 MG TAB PO SCH ×3 (08:06→22:11)
[2022-08-09] MEDS: busPIRone HCl 5 MG TAB PO SCH ×2 (08:06→22:10)
[2022-08-09] MEDS: ASPIRIN 81 MG PO SCH (08:07)
[2022-08-09] MEDS: INSULIN ASPART (NovoLOG) 100 UNIT/ML VIAL SQ SCH ×3 (08:08→18:03)
--- NOTE | 2022-08-09 08:27 | P.PN ---
Subjective Progress Note Date: 08/09/22 Principal diagnosis: 1. L3-S1 severe spondylosis with severe stenosis 2. L3-4 Grade I spondylolisthesis, L4-5 Grade I spondylolisthesis 3. LE weakness with paresthesias 4. Neurogenic claudication Patient seen and examined this morning. Patient is currently resting in bed. He reports that his pain is being managed on current regimen. Patient states that he has been working with physical therapy and feels he is tolerating activity well. LSO brace is present at bedside. Prescription for rolling walker has been placed in the chart. Camarena catheter is present, this may be removed this morning. Surgical dressing has been changed this morning, Hemovac present, with output of 80mls overnight. Continue to encourage patient to use incentive spirometer. Patient is currently afebrile, denies nausea/vomiting, or chest pain. Objective - Vital Signs Vital signs: Vital Signs Temp 97.9 F 08/09/22 02:30 Pulse 124 H 08/09/22 02:30 Resp 22 08/09/22 02:30 BP 119/68 08/09/22 02:30 Pulse Ox 97 08/09/22 02:30 FiO2 Intake & Output 08/08/22 08/09/22 08/09/22 18:59 06:59 18:59 Intake Total 354 Output Total 3140 2620 Balance -2786 -2620 Intake: Oral 354 Output: Drainage 140 120 Right Back 140 120 Urine 3000 2500 Other: Voiding Method Indwelling Catheter Indwelling Catheter - Exam Physical Examination General: The patient is awake and alert, in no acute distress Skin: Skin is warm and dry with no obvious rashes or lesions. Surgical incision to the lumbar spine, dressing is intact with Hemovac present. Eye: Pupils are equal, round and reactive to light, extra-ocular movements are intact; there is normal conjunctiva bilaterally. Neck: The neck is supple, there is no tenderness and ROM intact. Cardiovascular: There is a regular rate and rhythm. No murmur, rub or gallop is appreciated. Respiratory: Lungs are clear to auscultation, respirations are non-labored, breath sounds are equal. Gastrointestinal: Soft, non-distended, non-tender abdomen. Back: There is no tenderness to palpation in the midline, paralumbar, parathoracic or buttocks region. There is no obvious deformity . Musculoskeletal: ROM limited secondary to pain and stiffness from surgical procedure. Muscle strength in all major muscle groups of bilateral upper extremities 5/5, bilateral lower extremities 4/5. Neurological: CN 2-12 intact. There are no obvious motor or sensory deficits. Movement and coordination equal and intact. Sensory exam to light touch intact C5-T1 and intact from L2-S1. Reflexes 2/4 in bilateral upper and lower extremities. Negative Hoffmans, babinski, and clonus signs. Psychiatric: Cooperative, appropriate mood & affect, normal judgment. - Labs CBC & Chem 7: 08/09/22 05:40 08/09/22 05:40 Labs: Abnormal Lab Results - Last 24 Hours (Table) 08/08/22 08/08/22 08/08/22 Range/Units 03:55 03:55 03:55 RBC 2.64 L (4.40-5.60) X 10*6/uL Hgb 8.4 L (13.0-17.0) g/dL Hct 26.1 L (39.6-50.0) % MCV 98.9 H (80.0-97.0) fL Immature Gran # 0.05 H (0.00-0.04) X 10*3/uL Neutrophils # (1.3-7.7) k/uL Sodium (137-145) mmol/L BUN (9-20) mg/dL BUN/Creatinine Ratio 10.50 L (12.00-20.00) Ratio Glucose 289 H (70-110) mg/dL POC Glucose (mg/dL) (70-110) mg/dL Hemoglobin A1c 8.2 H (0.0-6.0) % Calcium 7.9 L (8.7-10.3) mg/dL Total Bilirubin <0.15 L (0.30-1.20) mg/dL AST 66 H (14-35) U/L Total Protein 5.2 L (6.2-8.2) g/dL Albumin 3.5 L (3.8-4.9) g/dL 08/08/22 08/08/22 08/08/22 Range/Units 11:28 17:00 20:30 RBC (4.40-5.60) X 10*6/uL Hgb (13.0-17.0) g/dL Hct (39.6-50.0) % MCV (80.0-97.0) fL Immature Gran # (0.00-0.04) X 10*3/uL Neutrophils # (1.3-7.7) k/uL Sodium (137-145) mmol/L BUN (9-20) mg/dL BUN/Creatinine Ratio (12.00-20.00) Ratio Glucose (70-110) mg/dL POC Glucose (mg/dL) 283 H 263 H 175 H (70-110) mg/dL Hemoglobin A1c (0.0-6.0) % Calcium (8.7-10.3) mg/dL Total Bilirubin (0.30-1.20) mg/dL AST (14-35) U/L Total Protein (6.2-8.2) g/dL Albumin (3.8-4.9) g/dL 08/09/22 08/09/22 08/09/22 Range/Units 05:40 05:40 05:45 RBC 2.91 L (4.40-5.60) X 10*6/uL Hgb 9.2 L (13.0-17.0) g/dL Hct 28.4 L (39.6-50.0) % MCV (80.0-97.0) fL Immature Gran # (0.00-0.04) X 10*3/uL Neutrophils # 7.8 H (1.3-7.7) k/uL Sodium 134 L (137-145) mmol/L BUN 8 L (9-20) mg/dL BUN/Creatinine Ratio (12.00-20.00) Ratio Glucose 209 H (70-110) mg/dL POC Glucose (mg/dL) 234 H (70-110) mg/dL Hemoglobin A1c (0.0-6.0) % Calcium 8.1 L (8.7-10.3) mg/dL Total Bilirubin (0.30-1.20) mg/dL AST (14-35) U/L Total Protein (6.2-8.2) g/dL Albumin (3.8-4.9) g/dL 08/09/22 Range/Units 07:36 RBC (4.40-5.60) X 10*6/uL Hgb (13.0-17.0) g/dL Hct (39.6-50.0) % MCV (80.0-97.0) fL Immature Gran # (0.00-0.04) X 10*3/uL Neutrophils # (1.3-7.7) k/uL Sodium (137-145) mmol/L BUN (9-20) mg/dL BUN/Creatinine Ratio (12.00-20.00) Ratio Glucose (70-110) mg/dL POC Glucose (mg/dL) 210 H (70-110) mg/dL Hemoglobin A1c (0.0-6.0) % Calcium (8.7-10.3) mg/dL Total Bilirubin (0.30-1.20) mg/dL AST (14-35) U/L Total Protein (6.2-8.2) g/dL Albumin (3.8-4.9) g/dL Assessment and Plan Assessment: Postop day 2: [id number] decompression and fusion with bilateral SI fusion 1. L3-S1 severe spondylosis with severe stenosis 2. L3-4 Grade I spondylolisthesis, L4-5 Grade I spondylolisthesis 3. LE weakness with paresthesias 4. Neurogenic claudication Plan: -Appreciate franchise business consultant and team management. -Activity: Ambulate QID, OOB all meals, up and about, limit lifting bending twisting to less than 5 lbs. Use walker or cane if needed for stability. -Daily PT/OT, increase ambulation strength and balance. -LSO Brace when up and about, not needed in bed or chair -Prescription for Rolling walker has been placed in chart. -Pain control: Adequate at this time -Meds: reviewed -GI ppx: senna, Miralax -DC camarena when up and about, bedside commode if needed -DVT PPX: Heparin -Hygiene: Shower today. Maintain dressing clean and dry. Meticulous cleaning after BMs away from the incision site -Drains: Maintain for now. DC later today pending out put and PT -Encourage IS 10x/hr -Dispo: Anticipate discharge home tomorrow vs Sunday with homecare *I reviewed and discussed this case with my attending Dr. Landers, whom has reviewed this chart and films and is in agreement with assessment and plan of care as outlined above. I have personally seen and examined the patient, performed the documentation and the assessment and plan as written. Number of minutes spent on the visit: 30m.
[2022-08-09 11:55] LABS: Glucose,Whole Blood 327 mg/dL (70-110)
--- NOTE | 2022-08-09 14:52 | P.PN ---
Subjective Progress Note Date: 08/09/22 Patient was seen and examined. No acute events overnight. Patient reports 8 out of 10 pain in his lower back. Working well with PT and OT. Agreeable for rehab. General: non toxic, no distress, appears at stated age Derm: warm, dry Head: atraumatic, normocephalic, symmetric Eyes: EOMI, no lid lag, anicteric sclera Mouth: no lip lesion, mucus membranes moist Cardiovascular: Tachycardic, no murmur Lungs: CTA bilateral, no rhonchi, no rales , no accessory muscle use Abdominal: soft, nontender to palpation, no guarding, no appreciable organomegaly, + bowel sounds, + camarena catheter Ext: no gross muscle atrophy, no edema, no contractures Neuro: no focal neuro deficits Psych: Alert, oriented, appropriate affect #Acute blood loss anemia #Diabetes mellitus with hyperglycemia Chronic conditions: hypertension, hyperlipidemia, CAD s/p stent, sleep apnea on CPAP, anxiety, neuropathy, insomnia Based on my assessment of this patient, this patient meets a moderate complexity level of care. I have reviewed the following library consultant notes: Orthopedic surgery note 08/09, ambulate QID, continue heparin, possibly discontinue drains and camarena catheter. I have reviewed the results of the following tests: CBC shows hemoglobin of 9.2 which is improved from 8.4. BMP shows Na 134, glucose of 209, Ca 8.1. [id number] glucose 175-327 over the past 24 hours. I have ordered the following tests: None. I have discussed the care of this patient with the following independent historian: None. I have independently interpreted the following test below: None. I have discussed the management of this patient with the following physician: None. This patient has a moderate risk of morbidity due to the following reasons: Patient has a chronic diagnosis of hypertension and diabetes mellitus. Most recent hemoglobin of 9.2. Expected resultant surgery. No indication for blood transfusion. Hemoglobin A1c 8.2. Blood glucose continues to be elevated. Continue NovoLog sliding scale medium. Add Levemir 10 units at bedtime. BP 137/88 with pulse of 128. Continue Coreg 25 mg by mouth twice a day. Patient needs adequate pain control. States that he is tachycardic at baseline. Objective - Vital Signs Vital signs: Vital Signs Temp 98.4 F 08/09/22 07:39 Pulse 128 H 08/09/22 07:39 Resp 19 08/09/22 07:50 BP 137/88 08/09/22 07:39 Pulse Ox 99 08/09/22 07:39 FiO2 Intake & Output 08/08/22 08/09/22 08/09/22 18:59 06:59 18:59 Intake Total 354 354 Output Total 3140 2620 3511 Balance -1365 -8112 -9943 Intake: Oral 354 354 Output: Drainage 140 120 30 Right Back 140 120 30 Urine 3000 2500 2630 Uretheral (Camarena) 2400 Other: Voiding Method Indwelling Catheter Indwelling Catheter Indwelling Catheter - Labs CBC & Chem 7: 08/09/22 05:40 08/09/22 05:40 Labs: Abnormal Lab Results - Last 24 Hours (Table) 08/08/22 08/08/22 08/09/22 Range/Units 17:00 20:30 05:40 RBC 2.91 L (4.30-5.90) m/uL Hgb 9.2 L (13.0-17.5) gm/dL Hct 28.4 L (39.0-53.0) % Neutrophils # 7.8 H (1.3-7.7) k/uL Sodium (137-145) mmol/L BUN (9-20) mg/dL Glucose (74-99) mg/dL POC Glucose (mg/dL) 263 H 175 H (70-110) mg/dL Calcium (8.4-10.2) mg/dL 08/09/22 08/09/22 08/09/22 Range/Units 05:40 05:45 07:36 RBC (4.30-5.90) m/uL Hgb (13.0-17.5) gm/dL Hct (39.0-53.0) % Neutrophils # (1.3-7.7) k/uL Sodium 134 L (137-145) mmol/L BUN 8 L (9-20) mg/dL Glucose 209 H (74-99) mg/dL POC Glucose (mg/dL) 234 H 210 H (70-110) mg/dL Calcium 8.1 L (8.4-10.2) mg/dL 08/09/22 Range/Units 11:53 RBC (4.30-5.90) m/uL Hgb (13.0-17.5) gm/dL Hct (39.0-53.0) % Neutrophils # (1.3-7.7) k/uL Sodium (137-145) mmol/L BUN (9-20) mg/dL Glucose (74-99) mg/dL POC Glucose (mg/dL) 327 H (70-110) mg/dL Calcium (8.4-10.2) mg/dL
[2022-08-09] MEDS: LACTATED RINGERS 1,000 ML IV SCH (15:11)
[2022-08-09 16:54] LABS: Glucose,Whole Blood 186 mg/dL (70-110)
[2022-08-09 20:32] LABS: Glucose,Whole Blood 225 mg/dL (70-110)
[2022-08-09] MEDS ORDERED: INSULIN DETEMIR (LEVEMIR) 100 UNIT/ML SYR SQ SCH (21:00)
[2022-08-09] MEDS: PRAVASTATIN SODIUM 40 MG TAB PO SCH (22:10)
[2022-08-09] MEDS: MELATONIN 5 MG TABLET PO SCH (22:10)
[2022-08-09] MEDS: PANTOPRAZOLE 40 MG TABLET PO SCH (22:10)
[2022-08-09] MEDS: MIRTAZAPINE 15 MG TAB PO SCH (22:11)
[2022-08-10] MEDS: ACETAMINOPHEN TAB 325 MG TAB PO SCH ×3 (01:11→11:43)
[2022-08-10] MEDS: HYDROcodone/APAP 10-325MG 1 EACH TAB PO PRN ×3 (01:11→11:39)
[2022-08-10 06:12] LABS: Glucose,Whole Blood 188 mg/dL (70-110)
[2022-08-10] MEDS: carvediloL 12.5 MG TAB PO SCH (06:39)
[2022-08-10] MEDS: glipiZIDE 10 MG TAB PO SCH (06:51)
[2022-08-10] MEDS: INSULIN ASPART (NovoLOG) 100 UNIT/ML VIAL SQ SCH ×2 (06:51→11:42)
[2022-08-10 07:25] LABS: HCT 25.7 % (39.0-53.0); HGB 8.7 gm/dL (13.0-17.5); MCH 32.6 pg (25.0-35.0); MCV 95.9 fL (80.0-100.0); Mean Platelet Volume 7.8; Platelet Count 263 k/uL (150-450); RBC 2.68 m/uL (4.30-5.90); RDW 13.3 % (11.5-15.5); WBC 8.4 k/uL (3.8-10.6)
[2022-08-10] MEDS: MAGNESIUM OXIDE 400 MG TAB PO SCH (08:03)
[2022-08-10] MEDS: CYCLOBENZAPRINE 5 MG TAB PO SCH (08:03)
[2022-08-10] MEDS: GABAPENTIN 300 MG CAP PO SCH (08:03)
[2022-08-10] MEDS: ASPIRIN 81 MG PO SCH (08:03)
[2022-08-10] MEDS: SENNOSIDES-DOCUSATE SODIUM 1 EACH TAB PO SCH (08:03)
[2022-08-10] MEDS: busPIRone HCl 5 MG TAB PO SCH (08:04)
[2022-08-10] MEDS: MULTIVITAMINS, THERA 1 EACH TAB PO SCH (08:04)
[2022-08-10] MEDS: FERROUS SULFATE 325 MG TAB PO SCH (08:04)
[2022-08-10] MEDS: ZIPRASIDONE 40 MG CAP PO SCH (08:06)
--- NOTE | 2022-08-10 08:29 | P.PN ---
Subjective Progress Note Date: 08/10/22 Principal diagnosis: 1. L3-S1 severe spondylosis with severe stenosis 2. L3-4 Grade I spondylolisthesis, L4-5 Grade I spondylolisthesis 3. LE weakness with paresthesias 4. Neurogenic claudication Patient seen and examined this morning. Patient is currently resting in bed. He reports that his pain is being managed on current regimen. Patient states that he has been working with physical therapy and feels he is tolerating activity well. LSO brace is present at bedside. Prescription for medications and rolling walker have been placed in the chart. Surgical dressing is CDI. Continue to encourage patient to use incentive spirometer. Patient is currently afebrile, denies nausea/vomiting, or chest pain. Objective - Vital Signs Vital signs: Vital Signs Temp 98.7 F 08/10/22 01:13 Pulse 96 08/10/22 06:38 Resp 16 08/10/22 01:13 BP 90/58 08/10/22 06:38 Pulse Ox 92 L 08/10/22 01:13 FiO2 Intake & Output 08/09/22 08/10/22 08/10/22 18:59 06:59 18:59 Intake Total 354 Output Total 2660 200 Balance -2306 -200 Intake: Oral 354 Output: Drainage 30 Right Back 30 Urine 2630 200 Uretheral (Cunningham) 2400 Other: Voiding Method Indwelling Catheter Toilet Urinal # Voids 2 3 - Exam Physical Examination General: The patient is awake and alert, in no acute distress Skin: Skin is warm and dry with no obvious rashes or lesions. Surgical incision to the lumbar spine, dressing is intact. Eye: Pupils are equal, round and reactive to light, extra-ocular movements are intact; there is normal conjunctiva bilaterally. Neck: The neck is supple, there is no tenderness and ROM intact. Cardiovascular: There is a regular rate and rhythm. No murmur, rub or gallop is appreciated. Respiratory: Lungs are clear to auscultation, respirations are non-labored, b reath sounds are equal. Gastrointestinal: Soft, non-distended, non-tender abdomen. Back: There is no tenderness to palpation in the midline, paralumbar, parathoracic or buttocks region. There is no obvious deformity . Musculoskeletal: ROM limited secondary to pain and stiffness from surgical p rocedure. Muscle strength in all major muscle groups of bilateral upper extremities 5/5, bilateral lower extremities 4/5. Neurological: CN 2-12 intact. There are no obvious motor or sensory deficits. Movement and coordination equal and intact. Sensory exam to light touch intact C5-T1 and intact from L2-S1. Reflexes 2/4 in bilateral upper and lower extremities. Negative Hoffmans, babinski, and clonus signs. Psychiatric: Cooperative, appropriate mood & affect, normal judgment. - Labs CBC & Chem 7: 08/10/22 07:08 08/09/22 05:40 Labs: Abnormal Lab Results - Last 24 Hours (Table) 08/09/22 08/09/22 08/09/22 Range/Units 11:53 16:52 20:26 RBC (4.30-5.90) m/uL Hgb (13.0-17.5) gm/dL Hct (39.0-53.0) % POC Glucose (mg/dL) 327 H 186 H 225 H (70-110) mg/dL 08/10/22 08/10/22 Range/Units 06:09 07:08 RBC 2.68 L (4.30-5.90) m/uL Hgb 8.7 L (13.0-17.5) gm/dL Hct 25.7 L (39.0-53.0) % POC Glucose (mg/dL) 188 H (70-110) mg/dL Assessment and Plan Assessment: Postop day 3: [id number] decompression and fusion with bilateral SI fusion 1. L3-S1 severe spondylosis with severe stenosis 2. L3-4 Grade I spondylolisthesis, L4-5 Grade I spondylolisthesis 3. LE weakness with paresthesias 4. Neurogenic claudication Plan: -Appreciate validation consultant and team management. -Activity: Ambulate QID, OOB all meals, up and about, limit lifting bending twisting to less than 5 lbs. Use walker or cane if needed for stability. -Daily PT/OT, increase ambulation strength and balance. -LSO Brace when up and about, not needed in bed or chair -Prescription for Rolling walker and discharge medications have been placed in chart. -Pain control: Adequate at this time -Meds: reviewed -GI ppx: senna, Miralax -DVT PPX: Heparin -Hygiene: Shower today. Maintain dressing clean and dry. Meticulous cleaning after BMs away from the incision site -Encourage IS 10x/hr -Dispo: Anticipate discharge to [facility] when insurance auth is obtained. Patient is cleared from Orthopedic standpoint for discharge. *I reviewed and discussed this case with my attending Dr. Landers, whom has reviewed this chart and films and is in agreement with assessment and plan of care as outlined above. I have personally seen and examined the patient, performed the documentation and the assessment and plan as written. Number of minutes spent on the visit: 10m.
[2022-08-10 11:36] LABS: Glucose,Whole Blood 193 mg/dL (70-110)
[2022-08-10 15:16] VITALS: BP 102/59; PULSE 89; RESP 18; TEMP 98.6
--- NOTE | 2022-08-10 15:17 | P.DS ---
Providers Date of admission: 08/07/22 05:40 Expected date of discharge: 08/10/22 Attending physician: Ulices Landers DO Consults: 08/07/22 13:27 Consult Physician Routine Consulting Provider: Natalie Byrd Consult Reason/Comments: medical management s/p L3-pelvis decompression- fusion Do you want consulting provider notified?: Yes Primary care physician: Mar[facility] Course: Date of admission: 08/07/2022 Date of discharge: 08/10/2022 Admission diagnosis: 1. L3-S1 severe spondylosis with severe stenosis 2. L3-4 Grade I spondylolisthesis, L4-5 Grade I spondylolisthesis 3. LE weakness with paresthesias 4. Neurogenic claudication Discharge diagnosis: Same Attending physician: Dr. Landers Surgical procedures: L3-S1 decompression with posterior lateral and interbody fusion, bilateral SI joint fusion Brief history: Patient is a 57-year-old male who had initially been evaluated in the outpatient setting by Dr. Landers with regards to chronic low back pain, lower extremity weakness and paresthesias with neurogenic claudication. It was determined that the patient had severe L3-S1 spondylosis with stenosis, also grade 1 spondylolisthesis of L3-S4 and L4-L5. Conservative measures were initially attempted, patient then elected to proceed with surgery. Patient underwent surgery on 08/07/2022. Hospital course: Details of patient's surgery can be found in operative report. Patient tolerated the procedure well and was subsequently transported to orthopedic floor. Patient's orthopeidc and medical care was provided daily. Patient had daily laboratory tests performed for evaluation of overall blood counts. Patient had daily physical therapy to include strengthening range of motion as well as education with walker ambulation. Patient was treated with SCDs and compression stocking for their postoperative DVT prophylaxis during their inpatient stay. Patient was noted to have a relatively uneventful postoperative course. Patient reported satisfactory pain control with oral pain medications by postoperative day 1. Patient showed satisfactory progress with physical therapy. Patient moved steadily through the program and had no difficulty meeting the goals by postoperative day 3. Given patient's otherwise satisfactory course and having met physical therapy goals, plan is to discharge patient rehab on postoperative day 3. Discharge condition/disposition: Patient will be discharged rehab in stable condition. Discharge medications: Instructions are given on resumption of patient's normal daily medications per primary care recommendation, in addition patient will be prescribed [place] 10 mg/325 mg, gabapentin 800 mg, Flexeril 5 mg, senna S, Duricef 500 mg. Spine Discharge and Recovery Instructions Dressing: Leave your dressing in place for a total of 5 days post operatively. Then you may remove your dressing and leave open to air. Keep the area clean and if not able to keep area clean, then cover with sterile gauze and tape. Showering: You may shower 3 days after your procedure allowing soap and water to run over incision. Do not scrub. Do not soak. Blot dry. Follow up: Please confirm a follow up appointment with your surgeon 3 weeks post operatively. Please make an appointment to follow up with your PCP in 1-2 weeks after surgery for evaluation 3 phase, 3-week plan POST OP WEEKS 1-3 1. Lifting/carrying/pushing/pulling limited to less than 5 pounds. 2. Do not sit for longer than 15 minutes at one time. Get up and walk around. Prolonged sitting is NOT advised. If you lay down, see if you can tolerate laying down on you front (belly side) 3. Walk for periods of 15 minutes = 1 mile but no longer; do it multiple times times each day. 4. Ice your low back after activity. POST OP WEEKS 3-6 1. Lifting limited to less than 20 pounds. 2. Do not sit for longer than 30 minutes at a time. Frequently change positions. Use a sit-to stand workstation or take frequent breaks from sitting if you have returned to work. 3. Walk for 30 minutes each day. If possible, do these three or more times a day POST OP WEEKS 6+ At your 6-week appointment we will give you a physical therapy referral to focus on a core stabilization and strengthening program. You should also work on leg & buttock strengthening, hamstring & quadriceps stretching, and continue a low impact aerobic activity program such as swimming, walking, or riding a stationary bicycle. During the initial 6 weeks after your surgery, you are at the highest risk of re-injuring your spine. You should generally avoid BLTs (bending, lifting and twisting combination motions) and follow the above guidelines to reduce the chance of reinjury. You can anticipate post op appointments in our office at approximately 3 weeks and 6 weeks after your surgery. INCISION CARE: If your incision is not draining you do NOT need to cover it with a dressing. Keep your incision clean, dry and intact. In most cases, we apply skin glue, kasi or sutures to the incision at the time of surgery. This will be like a crust or have the appearance of a scab and will fall off in time on its own. The stitches or kasi need to be removed at 3 weeks post op appointment. You may begin to shower 3 days after surgery (this allows the glue to mcmullen well). However, please avoid scrubbing the incision site or peeling off any of the skin glue. This will ensure optimal healing of your incision. Also, during this time avoid soaking the incision area in water - this includes swimming pools, hot tubs or baths. No ointments, lotions or oils on the incision until your surgeon allows. Leave kasi, sutures or glue in place. Neurological dysfunction that comes on suddenly can also be a sign of a stroke. Below some common symptoms of a stroke are listed: B - balance difficulty such as sudden onset walking or leaning to one side - NEW E - eye problem such as sudden double vision or trouble seeing on one side - NEW F - Facial weakness or numbness on one side - NEW A - Arm or leg weakness or numbness on one side - NEW S - Slurred speech or difficulty with word finding - NEW T - Time is BRAIN! Call 911 as soon as you recognize these symptoms Diet: Consume a regular diet rich in vegetables and lean protein such as chicken or fish. You should consume in a ratio of approximately 20% fats|40% carbohydrates|40%protein. Vegetables, sweet potatoes, brown rice or quinoa are examples of good carbohydrates. Chips, white bread, cookies and sweets/sugar are examples of bad carbohydrates. Limit your bad carbs, go wild with good carbs. 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 (1) Get Active. Physical activity can help people lose weight, control high blood pressure and cholesterol, feel emotionally better, and sleep better. (2) Control Cholesterol. Avoid a diet high in saturated fat, trans fat, & cholesterol. Limit whole milk & cream, ice cream, butter, egg yolks, processed meats (like sausage and hot dogs), and fatty meats. Choose healthy foods that are low in saturated fat, trans fat and cholesterol which include: Fruits and vegetables, fiber rich grain products (like whole grain pasta and brown rice), lean meat such as chicken, fish, nuts, seeds, and legumes. (3) Eat Better. Eat small portions. Shop at the grocery with a list and do not stray from it. Tips for a healthy diet include: Limit sodium intake to less than 1500mg daily, avoid prepackaged, processed, and fast foods, choose a diet rich in fruits, vegetables, and whole grain, high fiber foods, and limit saturated & cholesterol in your diet. (4) Manage Blood Pressure. If you have high blood pressure, you should have a cuff at home so that you can check your blood pressure regularly. Be sure you have a good cuff. An arm one is generally better than a wrist one. Bring the cuff to a doctor's appointment to validate that the measurements that your cuff are taking are accurate. Take your blood pressure twice daily when you are sitting down and relaxing. Record the numbers in a log and bring this log with you to your doctors' appointments. (5) Lose Weight if your BMI is above 25. A healthy BMI is between 19-25. To calculate Your BMI, you may use a Standard BMI Calculator on the NIH BMI website: <www.nhlbi.nih.gov/guidelines/obesity/BMI/bmicalc.htm>. Weigh oneself daily. If you are overweight, set a goal to lose weight. A pound a week loss if needed is a good target. (6) Reduce Blood Sugar. Limit foods and liquids with "added sugars." (Added sugars include sucrose, fructose, glucose, maltose, dextrose, high fructose corn syrup, corn syrup, concentrated fruit juice and honey). (7) Stop Smoking. If you smoke, quitting smoking is one of the best things that you can do for your health. Smoking increases your risk of heart attack, stroke, and peripheral vascular disease, which is a build-up of plaque in your arteries. Please discard all the cigarettes and lighters in your house. Have a plan for what you will do when you have the urge to smoke. Direct and second- hand smoke shortens your life as well as the lives of your family, friends and others around you. For your health and the health of those around you, please consider quitting! Proper Bending Body Mechanics: Maintain a wide stance with one foot slightly in front of the other. Keep your back straight. Bend utilizing the strength in your hips and knees. Do not bend at the waist. Maintain the lifted object at your waist-level close to your body. Avoid lifting weight that causes immediately pain or pain anywhere in the body afterwards. Smoking/Nicotine If there was ever one thing that you could do to increase your overall health, decrease your risk of cardiovascular problems by about 39% the second you make the choice, it is to STOP SMOKING. Your body's most instant gratification is the second you stop smoking. We have all heard the studies, read the articles but it is true, smoking is extremely bad for your overall health, and moreover it is detrimental to your bone health. Nicotine, IN ANY FORM, kills bone cells, prevents your body from healing fractures, and significantly prolongs healing after surgery. In spine surgery specifically, it increases your risk of not healing your bones to create a fusion and increases your risk of having a revision surgery due to this up to 60%. I know it is hard. I know it feels impossible. But there are ways. Take control of your life. We are here to help you through it. And when you are ready, ask us and we can direct you to help if you desire. Use the START Plan to Quit Smoking (please visit the Helpguide.org website listed below for more information): S = Set a quit date. Choose a date within the next 2 weeks, so you have enough time to prepare without losing your motivation to quit. If you mainly smoke at work, quit on the weekend, so you have a few days to adjust to the change. T = Tell family, friends, and co-workers that you plan to quit. Let your friends and family in on your plan to quit smoking and tell them you need their support and encouragement to stop. Look for a quit blanca who wants to stop smoking as well. You can help each other get through the rough times. A = Anticipate and plan for the challenges you'll face while quitting. Most people who begin smoking again do so within the first 3 months. You can help yourself make it through by preparing ahead for common challenges, such as nicotine withdrawal and cigarette cravings. R = Remove cigarettes and other tobacco products from your home, car, and work. Throw away all your cigarettes (no emergency pack!), lighters, ashtrays, and matches. Wash your clothes and freshen up anything that smells like smoke. Shampoo your car, clean your drapes and carpet, and steam your furniture. T = Talk to your doctor about getting help to quit. Your doctor can prescribe medication to help with withdrawal and suggest other alternatives. If you can't see a doctor, you can get many products over the counter at your local pharmacy or grocery store, including the nicotine patch, nicotine lozenges, and nicotine gum. Resources for Quitting Smoking: <https://www.[place].gov/documents/[facility]/Quit_Tobacco_Resources_for_patients_313 480_7.pdf> Supplementation: Take recommended dosages of Vitamin D and Calcium to help fortify your bones and help them to heal. See your health maintenance packet for dosages and recommended levels. DVT/VTE prophylaxis: You will be given compression stockings from the hospital. Wear these daily for the first two weeks after surgery. You may take them off at night. You may be prescribed a medication to help thin your blood. Take this as directed. If you are not prescribed this medication, early and frequent ambulation has been shown to be the best prophylaxis to deep vein thrombosis and sequelae related to this event. Procedures: L3-S1 decompression with posterior lateral interbody fusion, bilateral SI joint fusion Plan - Discharge Summary Discharge Rx Participant: No New Discharge Prescriptions: New cefaDROXiL [Duricef] 500 mg PO Q12HR #10 cap Sennosides/Docusate Sodium [Senna Plus 8.6-50 mg Softgel] 1 each PO DAILY PRN #20 capsule PRN Reason: Constipation Cyclobenzaprine [Flexeril] 5 mg PO TID #90 tablet Gabapentin 800 mg PO QID #120 tab HYDROcodone/APAP 10-325MG [[place] 10-325] 1 tab PO Q4-6H PRN #56 tab PRN Reason: Pain No Action Mirtazapine [Remeron] 15 mg PO HS 30 Days tab Calcium Carbonate [Tums] 500 mg PO QID PRN 30 Days PRN Reason: Heartburn busPIRone HCL 15 mg PO BID 30 Days tab Aspirin EC [Ecotrin Low Dose] 81 mg PO DAILY 30 Days tab glipiZIDE [Glucotrol] 20 mg PO BID 30 Days tab Ferrous Sulfate [Iron (65 MG Elemental)] 325 mg PO DAILY 30 Days tab Pravastatin Sodium [Pravachol] 40 mg PO HS 30 Days tab Vitamin B Complex 1 cap PO DAILY 30 Days cap modafiniL [Provigil] 200 mg PO DAILY Gabapentin 800 mg PO QID Melatonin 10 mg PO HS 30 Days tablet Ziprasidone [Geodon] 40 mg PO BID 30 Days cap metFORMIN HCL [Glucophage] 1,000 mg PO BID 30 Days #60 tab Pantoprazole [Protonix] 40 mg PO HS 30 Days tab Multivitamins, Thera [Multivitamin (formulary)] 1 tab PO DAILY clonazePAM 1 mg PO DIRECTED PRN PRN Reason: Anxiety carvediloL [Coreg] 25 mg PO BID Magnesium Oxide [Mag-Ox] 400 mg PO DAILY Pregabalin [Lyrica] 50 mg PO TID Cyclobenzaprine [Flexeril] 10 mg PO TID PRN PRN Reason: Muscle Spasm Discharge Medication List Aspirin EC [Ecotrin Low Dose] 81 mg PO DAILY 30 Days tab 08/17/21 [Rx] Calcium Carbonate [Tums] 500 mg PO QID PRN 30 Days 08/17/21 [Rx] Ferrous Sulfate [Iron (65 MG Elemental)] 325 mg PO DAILY 30 Days tab 08/17/21 [Rx] Melatonin 10 mg PO HS 30 Days tablet 08/17/21 [Rx] Mirtazapine [Remeron] 15 mg PO HS 30 Days tab 08/17/21 [Rx] Pantoprazole [Protonix] 40 mg PO HS 30 Days tab 08/17/21 [Rx] Pravastatin Sodium [Pravachol] 40 mg PO HS 30 Days tab 08/17/21 [Rx] Vitamin B Complex 1 cap PO DAILY 30 Days cap 08/17/21 [Rx] Ziprasidone [Geodon] 40 mg PO BID 30 Days cap 08/17/21 [Rx] busPIRone HCL 15 mg PO BID 30 Days tab 08/17/21 [Rx] glipiZIDE [Glucotrol] 20 mg PO BID 30 Days tab 08/17/21 [Rx] metFORMIN HCL [Glucophage] 1,000 mg PO BID 30 Days #60 tab 08/17/21 [Rx] Multivitamins, Thera [Multivitamin (formulary)] 1 tab PO DAILY 10/07/21 [History] modafiniL [Provigil] 200 mg PO DAILY 10/19/21 [History] Gabapentin 800 mg PO QID 01/10/22 [History] Cyclobenzaprine [Flexeril] 10 mg PO TID PRN 04/25/22 [History] Magnesium Oxide [Mag-Ox] 400 mg PO DAILY 04/25/22 [History] Pregabalin [Lyrica] 50 mg PO TID 04/25/22 [History] carvediloL [Coreg] 25 mg PO BID 04/25/22 [History] clonazePAM 1 mg PO DIRECTED PRN 04/25/22 [History] Cyclobenzaprine [Flexeril] 5 mg PO TID #90 tablet 08/10/22 [Rx] Gabapentin 800 mg PO QID #120 tab 08/10/22 [Rx] HYDROcodone/APAP 10-325MG [[place] 10-325] 1 tab PO Q4-6H PRN #56 tab 08/10/22 [Rx] Sennosides/Docusate Sodium [Senna Plus 8.6-50 mg Softgel] 1 each PO DAILY PRN #20 capsule 08/10/22 [Rx] cefaDROXiL [Duricef] 500 mg PO Q12HR #10 cap 08/10/22 [Rx] Follow up Appointment(s)/Referral(s): Ulices Landers DO [Doctor of Osteopathic Medicine] - 08/21/22 10:40 am Activity/Diet/Wound Care/Special Instructions: Spine Discharge and Recovery Instructions Date of Surgery: 08/07/2022 Diagnosis: Lumbar spondylosis, lumbar stenosis Procedure: [id number] decompression and fusion with bilateral SI fusion Medications: See medication list All medication refills should be obtained through your primary care doctor or your clinic spine surgeon. Please discuss prescription refills at your follow up appointment. Do not call the hospital for medication refills. Dressing: Leave your dressing in place for a total of 5 days post operatively. Then you may remove your dressing and leave open to air. Keep the area clean and if not able to keep area clean, then cover with sterile gauze and tape. Showering: You may shower 3 days after your procedure allowing soap and water to run over incision. Do not scrub. Do not soak. Blot dry. Follow up: Please confirm a follow up appointment with your surgeon 3 weeks post operatively. Please make an appointment to follow up with your PCP in 1-2 weeks after surgery for evaluation 3 phase, 3-week plan POST OP WEEKS 1-3 1. Lifting/carrying/pushing/pulling limited to less than 5 pounds. 2. Do not sit for longer than 15 minutes at one time. Get up and walk around. Prolonged sitting is NOT advised. If you lay down, see if you can tolerate laying down on you front (belly side) 3. Walk for periods of 15 minutes = 1 mile but no longer; do it multiple times times each day. 4. Ice your low back after activity. POST OP WEEKS 3-6 1. Lifting limited to less than 20 pounds. 2. Do not sit for longer than 30 minutes at a time. Frequently change positions. Use a sit-to stand workstation or take frequent breaks from sitting if you have returned to work. 3. Walk for 30 minutes each day. If possible, do these three or more times a day POST OP WEEKS 6+ At your 6-week appointment we will give you a physical therapy referral to focus on a core stabilization and strengthening program. You should also work on leg & buttock strengthening, hamstring & quadriceps stretching, and continue a low impact aerobic activity program such as swimming, walking, or riding a stationary bicycle. During the initial 6 weeks after your surgery, you are at the highest risk of re-injuring your spine. You should generally avoid BLTs (bending, lifting and twisting combination motions) and follow the above guidelines to reduce the chance of reinjury. You can anticipate post op appointments in our office at approximately 3 weeks and 6 weeks after your surgery. INCISION CARE: If your incision is not draining you do NOT need to cover it with a dressing. Keep your incision clean, dry and intact. In most cases, we apply skin glue, kasi or sutures to the incision at the time of surgery. This will be like a crust or have the appearance of a scab and will fall off in time on its own. The stitches or kasi need to be removed at 3 weeks post op appointment. You may begin to shower 3 days after surgery (this allows the glue to mcmullen well). However, please avoid scrubbing the incision site or peeling off any of the skin glue. This will ensure optimal healing of your incision. Also, during this time avoid soaking the incision area in water - this includes swimming pools, hot tubs or baths. No ointments, lotions or oils on the incision until your surgeon allows. Leave kasi, sutures or glue in place. Neurological dysfunction that comes on suddenly can also be a sign of a stroke. Below some common symptoms of a stroke are listed: B - balance difficulty such as sudden onset walking or leaning to one side - NEW E - eye problem such as sudden double vision or trouble seeing on one side - NEW F - Facial weakness or numbness on one side - NEW A - Arm or leg weakness or numbness on one side - NEW S - Slurred speech or difficulty with word finding - NEW T - Time is BRAIN! Call 911 as soon as you recognize these symptoms Diet: Consume a regular diet rich in vegetables and lean protein such as chicken or fish. You should consume in a ratio of approximately 20% fats|40% carbohydrates|40%protein. Vegetables, sweet potatoes, brown rice or quinoa are examples of good carbohydrates. Chips, white bread, cookies and sweets/sugar are examples of bad carbohydrates. Limit your bad carbs, go wild with good carbs. 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 (1) Get Active. Physical activity can help people lose weight, control high blood pressure and cholesterol, feel emotionally better, and sleep better. (2) Control Cholesterol. Avoid a diet high in saturated fat, trans fat, & cholesterol. Limit whole milk & cream, ice cream, butter, egg yolks, processed meats (like sausage and hot dogs), and fatty meats. Choose healthy foods that are low in saturated fat, trans fat and cholesterol which include: Fruits and vegetables, fiber rich grain products (like whole grain pasta and brown rice), lean meat such as chicken, fish, nuts, seeds, and legumes. (3) Eat Better. Eat small portions. Shop at the grocery with a list and do not stray from it. Tips for a healthy diet include: Limit sodium intake to less than 1500mg daily, avoid prepackaged, processed, and fast foods, choose a diet rich in fruits, vegetables, and whole grain, high fiber foods, and limit saturated & cholesterol in your diet. (4) Manage Blood Pressure. If you have high blood pressure, you should have a cuff at home so that you can check your blood pressure regularly. Be sure you have a good cuff. An arm one is generally better than a wrist one. Bring the cuff to a doctor's appointment to validate that the measurements that your cuff are taking are accurate. Take your blood pressure twice daily when you are sitting down and relaxing. Record the numbers in a log and bring this log with you to your doctors' appointments. (5) Lose Weight if your BMI is above 25. A healthy BMI is between 19-25. To calculate Your BMI, you may use a Standard BMI Calculator on the NIH BMI website: <www.nhlbi.nih.gov/guidelines/obesity/BMI/bmicalc.htm>. Weigh oneself daily. If you are overweight, set a goal to lose weight. A pound a week loss if needed is a good target. (6) Reduce Blood Sugar. Limit foods and liquids with "added sugars." (Added sugars include sucrose, fructose, glucose, maltose, dextrose, high fructose corn syrup, corn syrup, concentrated fruit juice and honey). (7) Stop Smoking. If you smoke, quitting smoking is one of the best things that you can do for your health. Smoking increases your risk of heart attack, stroke, and peripheral vascular disease, which is a build-up of plaque in your arteries. Please discard all the cigarettes and lighters in your house. Have a plan for what you will do when you have the urge to smoke. Direct and second- hand smoke shortens your life as well as the lives of your family, friends and others around you. For your health and the health of those around you, please c onsider quitting! Proper Bending Body Mechanics: Maintain a wide stance with one foot slightly in front of the other. Keep your back straight. Bend utilizing the strength in your hips and knees. Do not bend at the waist. Maintain the lifted object at your waist-level close to your body. Avoid lifting weight that causes immediately pain or pain anywhere in the body afterwards. Smoking/Nicotine If there was ever one thing that you could do to increase your overall health, decrease your risk of cardiovascular problems by about 39% the second you make the choice, it is to STOP SMOKING. Your body's most instant gratification is the second you stop smoking. We have all heard the studies, read the articles but it is true, smoking is extremely bad for your overall health, and moreover it is detrimental to your bone health. Nicotine, IN ANY FORM, kills bone cells, prevents your body from healing fractures, and significantly prolongs healing after surgery. In spine surgery specifically, it increases your risk of not healing your bones to create a fusion and increases your risk of having a revision surgery due to this up to 60%. I know it is hard. I know it feels impossible. But there are ways. Take control of your life. We are here to help you through it. And when you are ready, ask us and we can direct you to help if you desire. Use the START Plan to Quit Smoking (please visit the Helpguide.org website listed below for more information): S = Set a quit date. Choose a date within the next 2 weeks, so you have enough time to prepare without losing your motivation to quit. If you mainly smoke at work, quit on the weekend, so you have a few days to adjust to the change. T = Tell family, friends, and co-workers that you plan to quit. Let your friends and family in on your plan to quit smoking and tell them you need their support and encouragement to stop. Look for a quit blanca who wants to stop smoking as well. You can help each other get through the rough times. A = Anticipate and plan for the challenges you'll face while quitting. Most people who begin smoking again do so within the first 3 months. You can help yourself make it through by preparing ahead for common challenges, such as nicotine withdrawal and cigarette cravings. R = Remove cigarettes and other tobacco products from your home, car, and work. Throw away all your cigarettes (no emergency pack!), lighters, ashtrays, and matches. Wash your clothes and freshen up anything that smells like smoke. Shampoo your car, clean your drapes and carpet, and steam your furniture. T = Talk to your doctor about getting help to quit. Your doctor can prescribe medication to help with withdrawal and suggest other alternatives. If you can't see a doctor, you can get many products over the counter at your local pharmacy or grocery store, including the nicotine patch, nicotine lozenges, and nicotine gum. Resources for Quitting Smoking: <https://www.[place].gov/documents/[facility]/Quit_Tobacco_Resources_for_patients_313 480_7.pdf> Supplementation: Take recommended dosages of Vitamin D and Calcium to help fortify your bones and help them to heal. See your health maintenance packet for dosages and rec ommended levels. DVT/VTE prophylaxis: You will be given compression stockings from the hospital. Wear these daily for the first two weeks after surgery. You may take them off at night. You may be prescribed a medication to help thin your blood. Take this as directed. If you are not prescribed this medication, early and frequent ambulation has been shown to be the best prophylaxis to deep vein thrombosis and sequelae related to this event. Discharge Disposition: TRANSFER TO SNF/ECF
[2022-08-10] MEDS: LACTATED RINGERS 1,000 ML IV SCH (15:30)
--- NOTE | 2022-08-10 15:33 | P.PN ---
Subjective Progress Note Date: 08/10/22 Patient was seen and examined. No acute events overnight. Patient reports 8 out of 10 pain in his lower back. Working well with PT and OT. Agreeable for rehab. General: non toxic, no distress, appears at stated age Derm: warm, dry Head: atraumatic, normocephalic, symmetric Eyes: EOMI, no lid lag, anicteric sclera Mouth: no lip lesion, mucus membranes moist Cardiovascular: Tachycardic, no murmur Lungs: CTA bilateral, no rhonchi, no rales , no accessory muscle use Abdominal: soft, nontender to palpation, no guarding, no appreciable organomegaly, + bowel sounds, + camarena catheter Ext: no gross muscle atrophy, no edema, no contractures Neuro: no focal neuro deficits Psych: Alert, oriented, appropriate affect #Acute blood loss anemia #Diabetes mellitus with hyperglycemia Chronic conditions: hypertension, hyperlipidemia, CAD s/p stent, sleep apnea on CPAP, anxiety, neuropathy, insomnia Based on my assessment of this patient, this patient meets a moderate complexity level of care. I have reviewed the following professional services consultant notes: Orthopedic surgery note 08/10, anticipate discharge to [facility] when insurance auth is obtained. Patient is cleared from orthopedic standpoint for discharge. I have reviewed the results of the following tests: CBC shows hemoglobin of 8.7. [id number]-aa-[id number] glucose 186-327 over the past 24 hours. I have ordered the following tests: None. I have discussed the care of this patient with the following independent histo tavares: None. I have independently interpreted the following test below: None. I have discussed the management of this patient with the following physician: None. This patient has a moderate risk of morbidity due to the following reasons: Patient has a chronic diagnosis of hypertension and diabetes mellitus. Most recent hemoglobin of 8.7. Expected resultant surgery. No indication for blood transfusion. Hemoglobin A1c 8.2. Continue oral medications on discharge. BP 102/59 with pulse of 89. Continue Coreg 25 mg by mouth twice a day. Objective - Vital Signs Vital signs: Vital Signs Temp 98.6 F 08/10/22 14:15 Pulse 89 08/10/22 14:15 Resp 18 08/10/22 14:15 BP 102/59 08/10/22 14:15 Pulse Ox 95 08/10/22 14:15 FiO2 Intake & Output 03/08/10/22 08/10/22 18:59 06:59 18:59 Intake Total 354 90 Output Total 2660 200 Balance -2306 -200 90 Intake: Oral 354 90 Output: Drainage 30 Right Back 30 Urine 2630 200 Uretheral (Camarena) 2400 Other: Voiding Method Indwelling Catheter Toilet Urinal # Voids 2 3 - Labs CBC & Chem 7: 08/10/22 07:08 08/09/22 05:40 Labs: Abnormal Lab Results - Last 24 Hours (Table) 08/09/22 08/09/22 08/10/22 Range/Units 16:52 20:26 06:09 RBC (4.30-5.90) m/uL Hgb (13.0-17.5) gm/dL Hct (39.0-53.0) % POC Glucose (mg/dL) 186 H 225 H 188 H (70-110) mg/dL 08/10/22 08/10/22 Range/Units 07:08 11:34 RBC 2.68 L (4.30-5.90) m/uL Hgb 8.7 L (13.0-17.5) gm/dL Hct 25.7 L (39.0-53.0) % POC Glucose (mg/dL) 193 H (70-110) mg/dL
== END 2022-08-10 16:19 | DRG 460 ==
LOC: 2ORMAIN 05:40 → 4SSUR 14:38
PROVIDERS: ADMIT Orthopaedic Surgery; ATTEND Orthopaedic Surgery
PROC: 01NB0ZZ Release Lumbar Nerve, Open Approach (ICD-10-PCS; 2022-08-07)
PROC: 01NR0ZZ Release Sacral Nerve, Open Approach (ICD-10-PCS; 2022-08-07)
PROC: 0SG10AJ Fusion of 2 or more Lumbar Vertebral Joints with Interbody Fusion Device, Posterior Approach, Anterior Column, Open Approach (ICD-10-PCS; 2022-08-07)
PROC: 0SG30AJ Fusion of Lumbosacral Joint with Interbody Fusion Device, Posterior Approach, Anterior Column, Open Approach (ICD-10-PCS; 2022-08-07)
PROC: 0QS004Z Reposition Lumbar Vertebra with Internal Fixation Device, Open Approach (ICD-10-PCS; 2022-08-07)
PROC: 0ST40ZZ Resection of Lumbosacral Disc, Open Approach (ICD-10-PCS; 2022-08-07)
PROC: 0QB00ZZ Excision of Lumbar Vertebra, Open Approach (ICD-10-PCS; 2022-08-07)
PROC: 8E0WXBZ Computer Assisted Procedure of Trunk Region (ICD-10-PCS; 2022-08-07)
PROC: 0SG107J Fusion of 2 or more Lumbar Vertebral Joints with Autologous Tissue Substitute, Posterior Approach, Anterior Column, Open Approach (ICD-10-PCS; principal; 2022-08-07 07:30)
DX: M47.26 Other spondylosis with radiculopathy, lumbar region (principal); D62 Acute posthemorrhagic anemia; E11.40 Type 2 diabetes mellitus with diabetic neuropathy, unspecified; I10 Essential (primary) hypertension; E11.65 Type 2 diabetes mellitus with hyperglycemia; F10.11 Alcohol abuse, in remission; M48.062 Spinal stenosis, lumbar region with neurogenic claudication; M43.16 Spondylolisthesis, lumbar region; M48.07 Spinal stenosis, lumbosacral region; M51.16 Intervertebral disc disorders with radiculopathy, lumbar region; M48.00 Spinal stenosis, site unspecified; M25.78 Osteophyte, vertebrae; G47.33 Obstructive sleep apnea (adult) (pediatric); E78.5 Hyperlipidemia, unspecified; G47.00 Insomnia, unspecified; F41.9 Anxiety disorder, unspecified; G89.29 Other chronic pain; I25.10 Atherosclerotic heart disease of native coronary artery without angina pectoris; F17.290 Nicotine dependence, other tobacco product, uncomplicated; F19.91 Other psychoactive substance use, unspecified, in remission; Z96.643 Presence of artificial hip joint, bilateral; Z79.82 Long term (current) use of aspirin; Z79.899 Other long term (current) drug therapy; Z79.84 Long term (current) use of oral hypoglycemic drugs; Z88.8 Allergy status to other drugs, medicaments and biological substances; Z88.1 Allergy status to other antibiotic agents; Z95.5 Presence of coronary angioplasty implant and graft
CPT/HCPCS: 72100; 72131; 80048; 80053; 83036; 83735; 84443; 85025; 85027; 85610; 85730; 86850; 86900; 86901

== ENCOUNTER 2022-09-03 08:30 | Emergency (ER) | payer MEDICARE, OTHER ==
[2022-09-03 08:41] VITALS: RESP 18
--- NOTE | 2022-09-03 08:49 | ED ---
General Adult HPI - General Chief complaint: Back Pain/Injury Stated complaint: Back Pain Time Seen by Provider: 09/03/22 08:31 Source: patient, RN notes reviewed, old records reviewed Mode of arrival: EMS Limitations: no limitations, physical limitation - History of Present Illness Initial comments: 57-year-old male presents emergency department of back pain. Patient states that he was climbing stairs this morning and he went down on one knee and started experiencing tingling in the lumbar region. He states that he had L2, L3, L4 fusion last month. He states that tingling is nonradiating. He reports some tenderness in his lumbar region both spinal and paraspinal. He has been taking [place] since his surgery. He last took it at 0330 according to the patient. He states that he has a history of neuropathy but states he doesn't feel that he has any new leg symptoms. Denies loss of bowel or bladder function. Denies saddle anesthesia. Denies fever. - Related Data Home Medications Medication Instructions Recorded Confirmed Multivitamins, Thera [Multivitamin 1 tab PO DAILY 10/07/21 08/07/22 (formulary)] modafiniL [Provigil] 200 mg PO DAILY 10/19/21 08/07/22 Magnesium Oxide [Mag-Ox] 400 mg PO DAILY 04/25/22 08/07/22 carvediloL [Coreg] 25 mg PO BID 04/25/22 08/07/22 Previous Rx's Medication Instructions Recorded Aspirin EC [Ecotrin Low Dose] 81 mg PO DAILY 30 Days tab 08/17/21 Calcium Carbonate [Tums] 500 mg PO QID PRN 30 Days 08/17/21 Ferrous Sulfate [Iron (65 MG 325 mg PO DAILY 30 Days tab 08/17/21 Elemental)] Melatonin 10 mg PO HS 30 Days tablet 08/17/21 Mirtazapine [Remeron] 15 mg PO HS 30 Days tab 08/17/21 Pantoprazole [Protonix] 40 mg PO HS 30 Days tab 08/17/21 Pravastatin Sodium [Pravachol] 40 mg PO HS 30 Days tab 08/17/21 Vitamin B Complex 1 cap PO DAILY 30 Days cap 08/17/21 Ziprasidone [Geodon] 40 mg PO BID 30 Days cap 08/17/21 busPIRone HCL 15 mg PO BID 30 Days tab 08/17/21 glipiZIDE [Glucotrol] 20 mg PO BID 30 Days tab 08/17/21 metFORMIN HCL [Glucophage] 1,000 mg PO BID 30 Days #60 tab 08/17/21 Cyclobenzaprine [Flexeril] 5 mg PO TID #90 tablet 08/10/22 Gabapentin 800 mg PO QID #120 tab 08/10/22 HYDROcodone/APAP 10-325MG [[place] 1 tab PO Q4-6H PRN #56 tab 08/10/22 10-325] HYDROcodone/APAP 10-325MG [[place] 1 tab PO Q4-6H PRN #56 tab 08/10/22 10-325] Pregabalin [Lyrica] 50 mg PO TID #9 cap 08/10/22 Sennosides/Docusate Sodium [Senna 1 each PO DAILY PRN #20 capsule 08/10/22 Plus 8.6-50 mg Softgel] cefaDROXiL [Duricef] 500 mg PO Q12HR #10 cap 08/10/22 clonazePAM [KlonoPIN] 1 mg PO TID PRN #9 tab 08/10/22 Allergies Allergy/AdvReac Type Severity Reaction Status Date / Time thimerosal Allergy Severe Rash/Hives/throat Verified 09/03/22 08:41 swelling neomycin Allergy Rash/Hives Verified 09/03/22 08:41 Review of Systems ROS Statement: Those systems with pertinent positive or pertinent negative responses have been documented in the HPI. ROS Other: All systems not noted in ROS Statement are negative. Past Medical History Past Medical History: Diabetes Mellitus, GERD/Reflux, Hyperlipidemia, Hypertension, Liver Disease, Renal Disease, Sleep Apnea/CPAP/BIPAP Additional Past Medical History / Comment(s): Neuropathy, back pain, no CPAP use, Cirrhosis, "kidneys don't always work right." History of Any Multi-Drug Resistant Organisms: None Reported Past Surgical History: Heart Catheterization, Joint Replacement, Orthopedic Surgery Additional Past Surgical History / Comment(s): Bilateral cataracts removed, bilateral hip replacements, right heal surgery with screws/plates/pins placed, L2-L4 cage infusion, Past Anesthesia/Blood Transfusion Reactions: No Reported Reaction Past Psychological History: Anxiety, Bipolar, Depression, Schizoaffective Disorder Smoking Status: Current every day smoker, Former smoker, Vaper Past Alcohol Use History: None Reported Past Drug Use History: None Reported - Past Family History Father Family Medical History: Myocardial Infarction ([place]) Additional Family Medical History / Comment(s): [place] in mid 30's. Mother Family Medical History: Dementia family Additional Family Medical History / Comment(s): Anxiety. General Exam Limitations: no limitations, physical limitation General appearance: alert, in no apparent distress Head exam: Present: atraumatic, normocephalic, normal inspection Neck exam: Present: normal inspection. Absent: tenderness, meningismus, lymphadenopathy Respiratory exam: Present: normal lung sounds bilaterally. Absent: respiratory distress, wheezes, rales, rhonchi, stridor Cardiovascular Exam: Present: regular rate, normal rhythm, normal heart sounds. Absent: systolic murmur, diastolic murmur, rubs, gallop, clicks Extremities exam: Present: normal inspection, full ROM, normal capillary refill. Absent: tenderness, pedal edema, joint swelling, calf tenderness Back exam: Present: tenderness, paraspinal tenderness (mild tenderness bilateral in lumbar region), other (Scar from recent surgery present ). Absent: full ROM (decreased rom due to prior back surgery) Neurological exam: Present: alert, oriented X3 Skin exam: Present: warm, dry, intact, normal color. Absent: rash Course Vital Signs 09/03/22 08:32 Temperature 98.1 F Pulse Rate 109 H Respiratory 18 Rate Blood Pressure 130/113 O2 Sat by Pulse 98 Oximetry Medical Decision Making - Medical Decision Making Was pt. sent in by a medical professional or institution (, PA, FIRE EATER, urgent care, hospital, or usp...) When possible be specific @ -No Did you speak to anyone other than the patient for history (EMS, parent, family, police, friend...)? What history was obtained from this source @ -No Did you review nursing and triage notes (agree or disagree)? Why? @ -I reviewed and agree with nursing and triage notes Were old charts reviewed (outside hosp., previous admission, EMS record, old EKG, old radiological studies, urgent care reports/EKG's, usp records)? Report findings @ -No old charts were reviewed Differential Diagnosis (chest pain, altered mental status, abdominal pain women, abdominal pain men, vaginal bleeding, weakness, fever, dyspnea, syncope, headache, dizziness, GI bleed, back pain, seizure, CVA, palpatations, mental health, musculoskeletal)? @ - Differential Back Pain: Strain, zoster, cauda equina syndrome, epidural abscess, vertebral osteomyelitis, discitis, fracture, subluxation, disc herniation, DJD, spinal stenosis, dissection, AAA, pancreatitis, peptic ulcer disease, pyelonephritis, kidney stone, this is not meant to be an all-inclusive list. EKG interpreted by me (3pts min.). @ -None X-rays interpreted by me (1pt min.). @ -X-ray lumbar spine shows interdisc and posterior metallic fusion from L3 through S1 with near anatomic alignment. Intravertebral disc in the lower thoracic and upper lumbar spine are normal in thickness. CT interpreted by me (1pt min.). @ -None done U/S interpreted by me (1pt. min.). @ -None done What testing was considered but not performed or refused? (CT, X-rays, U/S, labs)? Why? @ -None What meds were considered but not given or refused? Why? @ -None Did you discuss the management of the patient with other professionals (professionals i.e. , PA, FIRE EATER, lab, RT, psych nurse, social staff worker, cassandra consultant, teacher, chief digital officer, social work case manager)? Give summary @ -No Was smoking cessation discussed for >3mins.? @ -No Was critical care preformed (if so, how long)? @ -No Were there social determinants of health that impacted care today? How? (Homelessness, low income, unemployed, alcoholism, drug addiction, transportation, low edu. Level, literacy, decrease access to med. care, prison, rehab)? @ -No Was there de-escalation of care discussed even if they declined (Discuss DNR or withdrawal of care, Hospice)? DNR status @ -No What co-morbidities impacted this encounter? (DM, HTN, Smoking, COPD, CAD, Cancer, CVA, ARF, Chemo, Hep., AIDS, mental health diagnosis, sleep apnea, morbid obesity)? @ -None Was patient admitted / discharged? Hospital course, mention meds given and route, prescriptions, significant lab abnormalities, going to OR and other pertinent info. @ -Discharged. Patient presented with low back pain 3 hours. Patient recently underwent lumbar fusion surgery. X-ray lumbar spine obtained. [place] 7.5 administered. Patient's pain level has improved. Patient discharged in stable condition. Undiagnosed new problem with uncertain prognosis? @ -No Drug Therapy requiring intensive monitoring for toxicity (Heparin, Nitro, Insulin, Cardizem)? @ -No Were any procedures done? @ -No Diagnosis/symptom? @ -Lumbar strain Acute, or Chronic, or Acute on Chronic? @ -Acute Uncomplicated (without systemic symptoms) or Complicated (systemic symptoms)? @ -Uncomplicated Side effects of treatment? @ -No Exacerbation, Progression, or Severe Exacerbation? @ -No Poses a threat to life or bodily function? How? (Chest pain, [place], [place], pneumonia, PE, COPD, DKA, ARF, appy, cholecystitis, CVA, Diverticulitis, Homicidal, Suicidal, threat to staff... and all critical care pts) @ -No Disposition Clinical Impression: Strain of lumbar region Disposition: HOME SELF-CARE Condition: Stable Instructions (If sedation given, give patient instructions): Acute Low Back Pain (ED) Additional Instructions: Please return to the Emergency Department if symptoms worsen or any other concerns. Is patient prescribed a controlled substance at d/c from ED?: No Referrals: Marlen Mobley MD [Primary Care Provider] - 1-2 days Time of Disposition: 09:41
[2022-09-03] MEDS ORDERED: HYDROcodone/APAP 7.5-325MG 1 EACH TAB PO STA (09:02)
--- NOTE | 2022-09-03 09:17 | XR ---
Lumbar spine. HISTORY: Lumbar fusion. COMPARISON: 08/07/2022. TECHNIQUE: 3 views of the lumbar spine were obtained. FINDINGS: There has been posterior metallic and interdisc fusion from L3 through S1. The T11-12, T12/L1, L1/L2 and L2/L3 intervertebral discs are normal in height. The lumbar vertebral segments are normal in alignment. Note is made of bilateral hip prostheses. IMPRESSION: Interdisc and posterior metallic fusion from L3 through S1 with near anatomic alignment. The interver tebral discs in the lower thoracic and upper lumbar spine are normal in thickness.
[2022-09-03 09:53] VITALS: BP 135/99; PULSE 115; TEMP 98
== END 2022-09-03 09:57 | disposition home or self-care (01) ==
LOC: EC 08:30
DX: S39.012A Strain of muscle, fascia and tendon of lower back, initial encounter (principal); E11.9 Type 2 diabetes mellitus without complications; I10 Essential (primary) hypertension; G47.30 Sleep apnea, unspecified; F31.9 Bipolar disorder, unspecified; F41.9 Anxiety disorder, unspecified; F17.290 Nicotine dependence, other tobacco product, uncomplicated; Z79.899 Other long term (current) drug therapy; Z88.8 Allergy status to other drugs, medicaments and biological substances; X58.XXXA Exposure to other specified factors, initial encounter
CPT/HCPCS: 72100; 99284

== ENCOUNTER 2022-09-10 15:15 | Emergency (ER) | payer MEDICARE, OTHER ==
[2022-09-10 15:25] VITALS: BP 103/74; RESP 20; TEMP 97.9
[2022-09-10] MEDS ORDERED: diazePAM 2 MG TAB PO STA (15:33)
[2022-09-10 16:37] VITALS: PULSE 106
--- NOTE | 2022-09-10 16:41 | ED ---
General Adult HPI - General Chief complaint: Anxiety Stated complaint: Anxiety Time Seen by Provider: 09/10/22 15:28 Source: patient, RN notes reviewed, old records reviewed Mode of arrival: wheelchair Limitations: no limitations - History of Present Illness Initial comments: Patient is a 57-year-old male with past medical history remarkable for chronic alcohol abuse, panic attacks, anxiety who presents emergency Department complaining of a panic attack and anxiety. States he did drink alcohol earlier today, approximately a third of a pint of vodka. Denies any withdrawal symptoms. Has a history of psychiatric illness. States he does have a history of withdrawals but has no symptoms. Denies chest pain, shortness breath, abdominal pain, vomiting. States has a history of chronic tachycardia. Currently just feels anxious all over. 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 He does want to pick it up tomorrow but is uncertain if he can wait until then. He is requesting a dose of Valium. Illnesses no acute complaints at this time. Presents for further evaluation. Denies any suicidal ideations, attempts, plans. Denies any homicidal ideations, attempts complaints. Denies any hallucinations. - Related Data Home Medications Medication Instructions Recorded Confirmed Multivitamins, Thera [Multivitamin 1 tab PO DAILY 10/07/21 08/07/22 (formulary)] modafiniL [Provigil] 200 mg PO DAILY 10/19/21 08/07/22 Magnesium Oxide [Mag-Ox] 400 mg PO DAILY 04/25/22 08/07/22 carvediloL [Coreg] 25 mg PO BID 04/25/22 08/07/22 Previous Rx's Medication Instructions Recorded Aspirin EC [Ecotrin Low Dose] 81 mg PO DAILY 30 Days tab 08/17/21 Calcium Carbonate [Tums] 500 mg PO QID PRN 30 Days 08/17/21 Ferrous Sulfate [Iron (65 MG 325 mg PO DAILY 30 Days tab 08/17/21 Elemental)] Melatonin 10 mg PO HS 30 Days tablet 08/17/21 Mirtazapine [Remeron] 15 mg PO HS 30 Days tab 08/17/21 Pantoprazole [Protonix] 40 mg PO HS 30 Days tab 08/17/21 Pravastatin Sodium [Pravachol] 40 mg PO HS 30 Days tab 08/17/21 Vitamin B Complex 1 cap PO DAILY 30 Days cap 08/17/21 Ziprasidone [Geodon] 40 mg PO BID 30 Days cap 08/17/21 busPIRone HCL 15 mg PO BID 30 Days tab 08/17/21 glipiZIDE [Glucotrol] 20 mg PO BID 30 Days tab 08/17/21 metFORMIN HCL [Glucophage] 1,000 mg PO BID 30 Days #60 tab 08/17/21 Cyclobenzaprine [Flexeril] 5 mg PO TID #90 tablet 08/10/22 Gabapentin 800 mg PO QID #120 tab 08/10/22 HYDROcodone/APAP 10-325MG [[place] 1 tab PO Q4-6H PRN #56 tab 08/10/22 10-325] HYDROcodone/APAP 10-325MG [[place] 1 tab PO Q4-6H PRN #56 tab 08/10/22 10-325] Pregabalin [Lyrica] 50 mg PO TID #9 cap 08/10/22 Sennosides/Docusate Sodium [[place] 1 each PO DAILY PRN #20 capsule 08/10/22 Plus 8.6-50 mg Softgel] cefaDROXiL [Duricef] 500 mg PO Q12HR #10 cap 08/10/22 clonazePAM [KlonoPIN] 1 mg PO TID PRN #9 tab 08/10/22 Allergies Allergy/AdvReac Type Severity Reaction Status Date / Time thimerosal Allergy Severe Rash/Hives/throat Verified 09/10/22 15:25 swelling neomycin Allergy Rash/Hives Verified 09/10/22 15:25 Review of Systems ROS Statement: Those systems with pertinent positive or pertinent negative responses have been documented in the HPI. Review of Systems: CONST: Denies fever EYES: Denies blurry vision ENT: Denies nasal congestion C/V: Denies Chest pain RESP: Denies shortness of breath GI: Denies abdominal pain : Denies dysuria SKIN: Denies rash. MSK: Denies joint pain. NEURO: Denies headache PSYCH: Denies suicidal and homicidal ideations/plans/attempts. Denies visual or auditory hallucinations. He endorses anxiety ROS Other: All systems not noted in ROS Statement are negative. Past Medical History Past Medical History: Diabetes Mellitus, GERD/Reflux, Hyperlipidemia, Hypertension, Liver Disease, Renal Disease, Sleep Apnea/CPAP/BIPAP Additional Past Medical History / Comment(s): Neuropathy, back pain, no CPAP use, Cirrhosis, "kidneys don't always work right." History of Any Multi-Drug Resistant Organisms: None Reported Past Surgical History: Heart Catheterization, Joint Replacement, Orthopedic Surgery Additional Past Surgical History / Comment(s): Bilateral cataracts removed, bilateral hip replacements, right heal surgery with screws/plates/pins placed, L2-L4 cage infusion, Past Anesthesia/Blood Transfusion Reactions: No Reported Reaction Past Psychological History: Anxiety, Bipolar, Depression, Schizoaffective Disorder Smoking Status: Current every day smoker, Former smoker, Vaper Past Alcohol Use History: None Reported Past Drug Use History: None Reported - Past Family History Father Family Medical History: Myocardial Infarction ([place]) Additional Family Medical History / Comment(s): [place] in mid 30's. Mother Family Medical History: Dementia family Additional Family Medical History / Comment(s): Anxiety. General Exam - General Exam Comments Initial Comments: General: Appears somewhat anxious, pacing in the room.No tongue fasciculations. No tremors. HEAD: Normal with no signs of head trauma. EYES: PERRLA, EOMI, conjunctiva normal, no discharge. Pupils 3 mm and equal bilaterally. ENT: Hearing grossly intact, normal oropharynx. RESPIRATORY: Clear breath sounds bilaterally. No wheezes, rales, or rhonchi. C/V: Regular rate and rhythm. S1 and S2 auscultated, no edema, peripheral pulses 2+ and intact throughout ABD: Abd is soft, nontender, nondistended EXT: Normal range of motion, no obvious deformity SKIN: No rashes or lesions observed on exposed skin. NEURO: Alert and oriented 4. No focal deficits. Clinically sober at this time. ambulates without difficulty, normal cerebellar function finger-nose testing. No focal deficits Limitations: no limitations Course Vital Signs 09/10/22 09/10/22 15:23 16:36 Temperature 97.9 F Pulse Rate 119 H 106 H Respiratory 20 Rate Blood Pressure 103/74 O2 Sat by Pulse 98 Oximetry Medical Decision Making - Medical Decision Making Was pt. sent in by a medical professional or institution (, PA, FACULTY RESEARCH PHYSICIAN, urgent care, hospital, or custodial...) When possible be specific @ -No Did you speak to anyone other than the patient for history (EMS, parent, family, police, friend...)? What history was obtained from this source @ -No Did you review nursing and triage notes (agree or disagree)? Why? @ -I reviewed and agree with nursing and triage notes Were old charts reviewed (outside hosp., previous admission, EMS record, old EKG, old radiological studies, urgent care reports/EKG's, custodial records)? Report findings @ -No old charts were reviewed Differential Diagnosis (chest pain, altered mental status, abdominal pain women, abdominal pain men, vaginal bleeding, weakness, fever, dyspnea, syncope, headache, dizziness, GI bleed, back pain, seizure, CVA, palpatations, mental health, musculoskeletal)? @ -Anxiety, alcohol intoxication, panic attack, psychiatric illness, as this is not all inclusive. EKG interpreted by me (3pts min.). @ -As above X-rays interpreted by me (1pt min.). @ -None done CT interpreted by me (1pt min.). @ -None done U/S interpreted by me (1pt. min.). @ -None done What testing was considered but not performed or refused? (CT, X-rays, U/S, labs)? Why? @ -None What meds were considered but not given or refused? Why? @ -None Did you discuss the management of the patient with other professionals (professionals i.e. , PA, FACULTY RESEARCH PHYSICIAN, lab, RT, psych nurse, social studies department chair, door to door sales representative, teacher, community reinvestment act officer, case management director)? Give summary @ -No Was smoking cessation discussed for >3mins.? @ -No Was critical care preformed (if so, how long)? @ -No Were there social determinants of health that impacted care today? How? (Homelessness, low income, unemployed, alcoholism, drug addiction, transportation, low edu. Level, literacy, decrease access to med. care, nursing home, rehab)? @ -No Was there de-escalation of care discussed even if they declined (Discuss DNR or withdrawal of care, Hospice)? DNR status @ -No What co-morbidities impacted this encounter? (DM, HTN, Smoking, COPD, CAD, Cancer, CVA, ARF, Chemo, Hep., AIDS, mental health diagnosis, sleep apnea, morbid obesity)? @ -Anxiety Was patient admitted / discharged? Hospital course, mention meds given and route, prescriptions, significant lab abnormalities, going to OR and other pertinent info. @ -Based on the patient's presentation and physical exam, he does appear to be presenting with an anxiety attack. Has a known history of this. He has presented with similar complaints in the past. No obvious signs of alcohol withdrawal at this time. He is clinically sober at this time. Neuro exam is normal. We will obtain a screening EKG but then provide him with Valium. He is tachycardic with a history of chronic tachycardia. He was in agreement this plan. We did discuss at length that he needs to fill his prescription and take up tomorrow which he was in agreement with. EKG is no signs of acute ischemia. Following Valium, patient is feeling improved. No evidence of alcohol withdrawal at this time. Tachycardia is also improved. I discussed results with him. He would like to go home at this time I believe this is reasonable. Strict return precautions discussed. Did memorial counselor him on alcohol cessation. I instructed the patient to follow up with their PCP in the next 1-3 days. I explained that the patient should return to the emergency department if they experience any worsening symptoms. Strict return precautions were discussed with the patient. The patient expressed understanding of these instructions. I answered all questions that the patient had. The patient was discharged home in good condition with their prescriptions and follow up information. Undiagnosed new problem with uncertain prognosis? @ -No Drug Therapy requiring intensive monitoring for toxicity (Heparin, Nitro, Insulin, Cardizem)? @ -No Were any procedures done? @ -No Diagnosis/symptom? @ -Anxiety Acute, or Chronic, or Acute on Chronic? @ -Acute Uncomplicated (without systemic symptoms) or Complicated (systemic symptoms)? @ -Uncomplicated Side effects of treatment? @ -No Exacerbation, Progression, or Severe Exacerbation? @ -No Poses a threat to life or bodily function? How? (Chest pain, [place], [place], pneumonia, PE, COPD, DKA, ARF, appy, cholecystitis, CVA, Diverticulitis, Homicidal, Suicidal, threat to staff... and all critical care pts) @ -No - EKG Data -: EKG Interpreted by Me EKG Comments: 12-lead Electrocardiogram Interpretation Note EKG was reviewed and interpreted by myself. 12-lead ECG performed at 1539 is interpreted by me as revealing sinus tachycardia at a rate of 122 beats per minute. [place] is normal. NM interval is 154 ms, QRS duration is 99 ms, QTc is 410 ms.. There were no ST or T wave abnormalities to suggest myocardial ischemia or injury. R wave progression across the precordium was satisfactory. By my interpretation this EKG is non-diagnostic for acute ischemia. Disposition Clinical Impression: Anxiety Disposition: HOME SELF-CARE Condition: Good Instructions (If sedation given, give patient instructions): Generalized Anxiety Disorder (ED) Is patient prescribed a controlled substance at d/c from ED?: No Referrals: Marlen Mobley MD [Primary Care Provider] - 1-2 days Time of Disposition: 16:35
== END 2022-09-10 16:56 | disposition home or self-care (01) ==
LOC: EC 15:15
DX: F41.9 Anxiety disorder, unspecified (principal); E11.40 Type 2 diabetes mellitus with diabetic neuropathy, unspecified; E78.5 Hyperlipidemia, unspecified; I10 Essential (primary) hypertension; F17.290 Nicotine dependence, other tobacco product, uncomplicated; Z88.8 Allergy status to other drugs, medicaments and biological substances; Z79.899 Other long term (current) drug therapy
CPT/HCPCS: 93005; 99283

== ENCOUNTER 2022-09-11 04:32 | Inpatient (IN) | payer MEDICARE, OTHER ==
[2022-09-11] MEDS ORDERED: clonazePAM 0.5 MG TAB PO STA (04:53)
--- NOTE | 2022-09-11 05:14 | ED ---
General Adult HPI - General Chief complaint: Anxiety Stated complaint: Panic Attack Time Seen by Provider: 09/11/22 04:44 Source: patient Mode of arrival: ambulatory Limitations: no limitations - History of Present Illness Initial comments: This is a 57-year-old male with a past medical history including anxiety and hypertension presents emergency department for worsening anxiety today. The patient had been seen in the emergency department earlier today for anxiety and was given Valium and was sent home. The patient stated that he felt as if he was doing well after he was discharged but stated that once he got home he did use alcohol at home and stated that he started to wake up with significant anxiety. The patient did admit that he ran out of his Klonopin on Sunday and had been taking this medication 3 times a day, the patient stated that he takes 1 mg by mouth of Klonopin 3 times a day for his anxiety and has been doing so for years. The patient stated that he drank alcohol earlier this evening and it did help with anxiety prefer the but then became worse. The patient was tachycardic with an elevated blood pressure on arrival. The patient denied any shortness of breath or chest pain. The patient also denied any nausea or vomiting. - Related Data Home Medications Medication Instructions Recorded Confirmed Multivitamins, Thera [Multivitamin 1 tab PO DAILY 10/07/21 08/07/22 (formulary)] modafiniL [Provigil] 200 mg PO DAILY 10/19/21 08/07/22 Magnesium Oxide [Mag-Ox] 400 mg PO DAILY 04/25/22 08/07/22 carvediloL [Coreg] 25 mg PO BID 04/25/22 08/07/22 Previous Rx's Medication Instructions Recorded Aspirin EC [Ecotrin Low Dose] 81 mg PO DAILY 30 Days tab 08/17/21 Calcium Carbonate [Tums] 500 mg PO QID PRN 30 Days 08/17/21 Ferrous Sulfate [Iron (65 MG 325 mg PO DAILY 30 Days tab 08/17/21 Elemental)] Melatonin 10 mg PO HS 30 Days tablet 08/17/21 Mirtazapine [Remeron] 15 mg PO HS 30 Days tab 08/17/21 Pantoprazole [Protonix] 40 mg PO HS 30 Days tab 08/17/21 Pravastatin Sodium [Pravachol] 40 mg PO HS 30 Days tab 08/17/21 Vitamin B Complex 1 cap PO DAILY 30 Days cap 08/17/21 Ziprasidone [Geodon] 40 mg PO BID 30 Days cap 08/17/21 busPIRone HCL 15 mg PO BID 30 Days tab 08/17/21 glipiZIDE [Glucotrol] 20 mg PO BID 30 Days tab 08/17/21 metFORMIN HCL [Glucophage] 1,000 mg PO BID 30 Days #60 tab 08/17/21 Cyclobenzaprine [Flexeril] 5 mg PO TID #90 tablet 08/10/22 Gabapentin 800 mg PO QID #120 tab 08/10/22 HYDROcodone/APAP 10-325MG [[place] 1 tab PO Q4-6H PRN #56 tab 08/10/22 10-325] HYDROcodone/APAP 10-325MG [[place] 1 tab PO Q4-6H PRN #56 tab 08/10/22 10-325] Pregabalin [Lyrica] 50 mg PO TID #9 cap 08/10/22 Sennosides/Docusate Sodium [Senna 1 each PO DAILY PRN #20 capsule 08/10/22 Plus 8.6-50 mg Softgel] cefaDROXiL [Duricef] 500 mg PO Q12HR #10 cap 08/10/22 clonazePAM [KlonoPIN] 1 mg PO TID PRN #9 tab 08/10/22 Allergies Allergy/AdvReac Type Severity Reaction Status Date / Time thimerosal Allergy Severe Rash/Hives/throat Verified 09/10/22 15:25 swelling neomycin Allergy Rash/Hives Verified 09/10/22 15:25 Review of Systems ROS Statement: Those systems with pertinent positive or pertinent negative responses have been documented in the HPI. ROS Other: All systems not noted in ROS Statement are negative. Past Medical History Past Medical History: Diabetes Mellitus, GERD/Reflux, Hyperlipidemia, Hyperte nsion, Liver Disease, Renal Disease, Sleep Apnea/CPAP/BIPAP Additional Past Medical History / Comment(s): Neuropathy, back pain, no CPAP use, Cirrhosis, "kidneys don't always work right." History of Any Multi-Drug Resistant Organisms: None Reported Past Surgical History: Heart Catheterization, Joint Replacement, Orthopedic Surgery Additional Past Surgical History / Comment(s): Bilateral cataracts removed, bilateral hip replacements, right heal surgery with screws/plates/pins placed, L2-L4 cage infusion, Past Anesthesia/Blood Transfusion Reactions: No Reported Reaction Past Psychological History: Anxiety, Bipolar, Depression, Schizoaffective D isorder Smoking Status: Current every day smoker, Former smoker, Vaper Past Alcohol Use History: None Reported Past Drug Use History: None Reported - Past Family History Father Family Medical History: Myocardial Infarction ([place]) Additional Family Medical History / Comment(s): [place] in mid 30's. Mother Family Medical History: Dementia family Additional Family Medical History / Comment(s): Anxiety. General Exam Limitations: no limitations General appearance: alert, anxious Head exam: Present: atraumatic, normocephalic, normal inspection Eye exam: Present: normal appearance, PERRL Pupils: Present: normal accommodation ENT exam: Present: normal exam, normal oropharynx, mucous membranes moist Neck exam: Present: normal inspection, full ROM Respiratory exam: Present: normal lung sounds bilaterally Cardiovascular Exam: Present: normal rhythm, tachycardia GI/Abdominal exam: Present: soft, normal bowel sounds Extremities exam: Present: normal inspection, full ROM Back exam: Present: normal inspection, full ROM Neurological exam: Present: alert, oriented X3, CN II-XII intact Psychiatric exam: Present: normal affect, normal mood Skin exam: Present: warm, dry Course Vital Signs 09/11/22 04:33 Temperature 98.1 F Pulse Rate 130 H Respiratory 22 Rate Blood Pressure 214/151 O2 Sat by Pulse 98 Oximetry EKG Findings - EKG Comments: EKG Findings:: An EKG was obtained and was interpreted by myself showing a rate of 141, [place] interval of 138, QRS duration of 89 and QTC of 372. This EKG showed a sinus tachycardia without any ST segment elevation or depression noted. Medical Decision Making - Medical Decision Making Was pt. sent in by a medical professional or institution (, PA, REPORTING SPECIALIST, urgent care, hospital, or [facility]...) When possible be specific @ -No Did you speak to anyone other than the patient for history (EMS, parent, family, police, friend...)? What history was obtained from this source @ -No Did you review nursing and triage notes (agree or disagree)? Why? @ -I reviewed and agree with nursing and triage notes Were old charts reviewed (outside hosp., previous admission, EMS record, old EKG, old radiological studies, urgent care reports/EKG's, [facility] records)? Report findings @ -No old charts were reviewed Differential Diagnosis (chest pain, altered mental status, abdominal pain women, abdominal pain men, vaginal bleeding, weakness, fever, dyspnea, syncope, headache, dizziness, GI bleed, back pain, seizure, CVA, palpatations, mental health)? @ -Benzodiazepine withdrawal, anxiety, PE, ACS EKG interpreted by me (3pts min.). @ -As above X-rays interpreted by me (1pt min.). @ -Chest x-ray was obtained and was interpreted by myself showing no acute process. CT interpreted by me (1pt min.). @ -CTA of the chest was ordered and was still pending at this time. U/S interpreted by me (1pt. min.). @ -None done What testing was considered but not performed or refused? (CT, X-rays, U/S, labs)? Why? @ -None What meds were considered but not given or refused? Why? @ -None Did you discuss the management of the patient with other professionals (pro fessionals i.e. , PA, REPORTING SPECIALIST, lab, RT, psych nurse, child protective services social worker, director hematology, teacher, global chief creative officer, correctional casework specialist)? Give summary @ -Yes, admitting physician was contacted regarding admission Was smoking cessation discussed for >3mins.? @ -Yes Was critical care preformed (if so, how long)? @ -No Were there social determinants of health that impacted care today? How? (Homelessness, low income, unemployed, alcoholism, drug addiction, transportation, low edu. Level, literacy, decrease access to med. care, fpc, rehab)? @ -No Was there de-escalation of care discussed even if they declined (Discuss DNR or withdrawal of care, Hospice)? DNR status @ -No What co-morbidities impacted this encounter? (DM, HTN, Smoking, COPD, CAD, Cancer, CVA, ARF, Chemo, Hep., AIDS, mental health diagnosis, sleep apnea, morbid obesity)? @ -Chronic alcoholism, anxiety Was patient admitted / discharged? Hospital course, mention meds given and route, prescriptions, significant lab abnormalities, going to OR and other pertinent info. @ -The patient was seen and evaluated emergency department. Physical exam, the patient was tachycardic and hypertensive and was anxious. The patient had been seen earlier for this but had much more mild symptoms. The patient stated he had worsening symptoms today and likely was secondary to benzodiazepine withdrawal. CIWA was low. Due to the patient's significantly elevated blood pressure and heart rate, a full cardiac workup was obtained. Workup did show a d-dimer that was elevated at [address] of the chest was ordered. The patient also had a lipase level of 1000 likely secondary to pancreatitis. Due to the patient's elevated lipase level in the setting of benzodiazepine withdrawal, the patient will be admitted for further workup and evaluation. The patient was agreeable to this and all his questions were answered appropriately. The patient was admitted in stable condition. Undiagnosed new problem with uncertain prognosis? @ -No Drug Therapy requiring intensive monitoring for toxicity (Heparin, Nitro, Insulin, Cardizem)? @ -No Were any procedures done? @ -No Diagnosis/symptom? @ -Pancreatitis, benzodiazepine withdrawal Acute, or Chronic, or Acute on Chronic? @ -Acute Uncomplicated (without systemic symptoms) or Complicated (systemic symptoms)? @ -Complicated Side effects of treatment? @ -No Exacerbation, Progression, or Severe Exacerbation? @ -No Poses a threat to life or bodily function? How? (Chest pain, [place], [place], pneumonia, PE, COPD, DKA, ARF, appy, cholecystitis, CVA, Diverticulitis, Homicidal, Suicidal, threat to staff... and all critical care pts) @ -Yes, worsening withdrawal can lead to possible . - Lab Data Result diagrams: 09/11/22 05:58 09/11/22 05:00 Lab Results 09/11/22 09/11/22 09/11/22 Range/Units 05:00 05:00 05:23 WBC (3.8-10.6) k/uL RBC (4.30-5.90) m/uL Hgb (13.0-17.5) gm/dL Hct (39.0-53.0) % MCV (80.0-100.0) fL MCH (25.0-35.0) pg MCHC (31.0-37.0) g/dL RDW (11.5-15.5) % Plt Count (150-450) k/uL MPV Neutrophils % % Lymphocytes % % Monocytes % % Eosinophils % % Basophils % % Neutrophils # (1.3-7.7) k/uL Lymphocytes # (1.0-4.8) k/uL Monocytes # (0-1.0) k/uL Eosinophils # (0-0.7) k/uL Basophils # (0-0.2) k/uL PT 10.8 (9.0-12.0) sec INR 1.0 (<1.2) APTT 23.9 (22.0-30.0) sec D-Dimer 3.18 H (<0.60) mg/L FEU Sodium 138 (137-145) mmol/L Potassium 4.8 (3.5-5.1) mmol/L Chloride 104 (98-107) mmol/L Carbon Dioxide 16 L (22-30) mmol/L Anion Gap 18 mmol/L BUN 10 (9-20) mg/dL Creatinine 0.99 (0.66-1.25) mg/dL Est GFR (CKD-EPI)AfAm >90 (>60 ml/min/1.73 sqM) Est GFR (CKD-EPI)NonAf 84 (>60 ml/min/1.73 sqM) Glucose 128 H (74-99) mg/dL Calcium 9.5 (8.4-10.2) mg/dL Magnesium 2.2 (1.6-2.3) mg/dL Total Bilirubin 0.5 (0.2-1.3) mg/dL AST 34 (17-59) U/L ALT 25 (4-49) U/L Alkaline Phosphatase 148 H (38-126) U/L Troponin I <0.012 (0.000-0.034) ng/mL Total Protein 8.4 H (6.3-8.2) g/dL Albumin 4.9 (3.5-5.0) g/dL Lipase 1093 H (23-300) U/L 09/11/22 Range/Units 05:58 WBC 15.3 H (3.8-10.6) k/uL RBC 4.10 L (4.30-5.90) m/uL Hgb 12.4 L D (13.0-17.5) gm/dL Hct 37.7 L (39.0-53.0) % MCV 92.0 (80.0-100.0) fL MCH 30.4 (25.0-35.0) pg MCHC 33.0 (31.0-37.0) g/dL RDW 13.9 (11.5-15.5) % Plt Count 621 H D (150-450) k/uL MPV 6.8 Neutrophils % 78 % Lymphocytes % 14 % Monocytes % 4 % Eosinophils % 1 % Basophils % 0 % Neutrophils # 11.9 H (1.3-7.7) k/uL Lymphocytes # 2.2 (1.0-4.8) k/uL Monocytes # 0.5 (0-1.0) k/uL Eosinophils # 0.2 (0-0.7) k/uL Basophils # 0.1 (0-0.2) k/uL PT (9.0-12.0) sec INR (<1.2) APTT (22.0-30.0) sec D-Dimer (<0.60) mg/L FEU Sodium (137-145) mmol/L Potassium (3.5-5.1) mmol/L Chloride (98-107) mmol/L Carbon Dioxide (22-30) mmol/L Anion Gap mmol/L BUN (9-20) mg/dL Creatinine (0.66-1.25) mg/dL Est GFR (CKD-EPI)AfAm (>60 ml/min/1.73 sqM) Est GFR (CKD-EPI)NonAf (>60 ml/min/1.73 sqM) Glucose (74-99) mg/dL Calcium (8.4-10.2) mg/dL Magnesium (1.6-2.3) mg/dL Total Bilirubin (0.2-1.3) mg/dL AST (17-59) U/L ALT (4-49) U/L Alkaline Phosphatase (38-126) U/L Troponin I (0.000-0.034) ng/mL Total Protein (6.3-8.2) g/dL Albumin (3.5-5.0) g/dL Lipase (23-300) U/L Disposition Clinical Impression: Benzodiazepine withdrawal, Anxiety, Pancreatitis Disposition: ADMITTED IP TO THIS HOSP Condition: Stable Is patient prescribed a controlled substance at d/c from ED?: No Referrals: Marlen Mobley MD [Primary Care Provider] - 1-2 days Time of Disposition: 06:30 Decision to Admit Reason: Admit from EC Decision Date: 09/11/22 Decision Time: 06:30
[2022-09-11 05:34] LABS: ALT 25 U/L (4-49); African American GFR (CKD) >90 (>60 ml/min/1.73 sqM); Albumin 4.9 g/dL (3.5-5.0); Anion Gap 18 mmol/L; Blood Urea Nitrogen 10 mg/dL (9-20); Calcium 9.5 mg/dL (8.4-10.2); Carbon Dioxide 16 mmol/L (22-30); Chloride 104 mmol/L (98-107); Glucose 128 mg/dL (74-99); Lipase 1093 U/L (23-300); Non-African American GFR(CKD) 84 (>60 ml/min/1.73 sqM); Sodium 138 mmol/L (137-145); Total Bilirubin 0.5 mg/dL (0.2-1.3); Total Protein 8.4 g/dL (6.3-8.2)
[2022-09-11 05:51] LABS: AST 34 U/L (17-59); Alkaline Phosphatase 148 U/L (38-126); Magnesium 2.2 mg/dL (1.6-2.3); Potassium 4.8 mmol/L (3.5-5.1)
--- NOTE | 2022-09-11 06:07 | XR ---
EXAMINATION TYPE: XR chest 2V DATE OF EXAM: 09/11/2022 5:57 AM COMPARISON: Chest radiographs from 08/07/2022 TECHNIQUE: XR chest 2V Frontal and lateral views of the chest. CLINICAL INDICATION:Male, 57 years old with history of CP; FINDINGS: Lungs/Pleura: There is no evidence of pleural effusion, focal consolidation, or pneumothorax. Pulmonary vascularity: Unremarkable. Heart/mediastinum: Cardiomediastinal silhouette is unremarkable. Musculoskeletal: No acute osseous pathology. IMPRESSION: No acute cardiopulmonary disease/process.
[2022-09-11 06:08] LABS: Basophils # (A) 0.1 k/uL (0-0.2); Basophils % (A) 0 %; Eosinophils # (A) 0.2 k/uL (0-0.7); Eosinophils % (A) 1 %; HCT 37.7 % (39.0-53.0); Lymphocytes # (A) 2.2 k/uL (1.0-4.8); Lymphocytes % (A) 14 %; MCH 30.4 pg (25.0-35.0); Mean Platelet Volume 6.8; Monocytes # (A) 0.5 k/uL (0-1.0); Monocytes % (A) 4 %; Neutrophils # (A) 11.9 k/uL (1.3-7.7); Neutrophils % (A) 78 %; RDW 13.9 % (11.5-15.5); WBC 15.3 k/uL (3.8-10.6)
[2022-09-11 06:11] LABS: Partial Thromboplastin Time 23.9 sec (22.0-30.0); Prothrombin Time 10.8 sec (9.0-12.0)
[2022-09-11 06:14] LABS: HGB 12.4 gm/dL (13.0-17.5); Platelet Count 621 k/uL (150-450)
--- NOTE | 2022-09-11 07:22 | CT ---
EXAMINATION TYPE: CT angio chest CT DLP: 377.8 mGycm, Automated exposure control for dose reduction was used. DATE OF EXAM: 09/11/2022 6:40 AM COMPARISON: Chest radiograph from same day 09/11/2022. CLINICAL INDICATION:Male, 57 years old with history of SOB, r/o PE; ELEVATED D-DIMER TECHNIQUE/CONTRAST: CTA scan of the thorax is performed with IV Contrast, patient injected with 70 mL of Isovue 370, pulm onary embolism protocol. MIP images are created and reviewed these are created on a separate worksta tion.. FINDINGS: Pulmonary Artery: There is no evidence for a central filling defect within the pulmonary vasculature to suggest acute pulmonary embolism. Limited evaluation of the segmental and subsegmental branches se condary to bolus timing. The pulmonary artery is of normal size. Lungs/Pleura: Mild centrilobular emphysema changes. There is an elevated right diaphragm. Associated atelectasis secondary to the diaphragm is noted. Left major fissure intrafissural lymph node. Series 411 image 56. No evidence of focal consolidation, pleural effusion or pneumothorax. Airway: Large airways are patent. Heart: Heart is within normal limits for size. Vasculature: No evidence of aortic aneurysm. Mediastinum: No gross evidence of adenopathy. Musculoskeletal: No acute osseous abnormalities, partially visualized fixation hardware to lower thor acic spine. Soft Tissues: Unremarkable. Lower neck: No significant findings. Upper Abdomen: Few scattered colonic diverticula. Diffuse low-attenuation to the liver parenchyma. IMPRESSION: 1. No evidence of central pulmonary embolism. Limited evaluation of the segmental and subsegmental br anches. 2. Hepatic steatosis.
[2022-09-11] MEDS ORDERED: NALOXONE 0.4 MG/ML 1 ML VIAL IV PRN (09:49)
[2022-09-11] MEDS ORDERED: HYDROmorphone 1 MG/ML 1 ML SYRINGE IVP PRN (09:50)
[2022-09-11] MEDS ORDERED: HYDROcodone/APAP 5-325MG 1 EACH TAB PO PRN (09:50)
[2022-09-11] MEDS ORDERED: ONDANSETRON 4 MG/2 ML VIAL IVP PRN (09:50)
[2022-09-11] MEDS ORDERED: LORazepam 2 MG/ML INJ IV PRN (09:52)
[2022-09-11] MEDS ORDERED: CALCIUM CARBONATE 500 MG CHEWABLE PO PRN (10:36)
[2022-09-11] MEDS ORDERED: NAPROXEN 250 MG TAB PO PRN (10:36)
[2022-09-11] MEDS ORDERED: MELATONIN 5 MG TABLET PO PRN (10:36)
[2022-09-11] MEDS ORDERED: THIAMINE 100 MG/ML 2 ML VIAL IM STA (10:38)
[2022-09-11] MEDS ORDERED: DEXTROSE 50% SYRINGE 50 ML IVP PRN ×2 (10:38)
[2022-09-11] MEDS ORDERED: LORazepam 1 MG TAB PO PRN ×4 (10:38)
[2022-09-11] MEDS: FERROUS SULFATE 325 MG TAB PO SCH (11:27)
[2022-09-11] MEDS: busPIRone HCl 5 MG TAB PO SCH ×2 (11:27→21:30)
[2022-09-11] MEDS: GABAPENTIN 400 MG CAP PO SCH ×3 (11:28→23:50)
[2022-09-11] MEDS: ASPIRIN 81 MG PO SCH (11:28)
[2022-09-11] MEDS: HYDROcodone/APAP 7.5-325MG 1 EACH TAB PO PRN ×2 (11:28→18:19)
[2022-09-11] MEDS: carvediloL 12.5 MG TAB PO SCH ×2 (11:28→17:44)
[2022-09-11] MEDS: MAGNESIUM OXIDE 400 MG TAB PO SCH (11:28)
[2022-09-11] MEDS: MULTIVITAMINS, THERA 1 EACH TAB PO SCH (11:28)
[2022-09-11] MEDS: ZIPRASIDONE 40 MG CAP PO SCH ×2 (11:29→21:30)
[2022-09-11] MEDS: SODIUM CHLORIDE 0.9% 1,000 ML IV SCH ×2 (11:29→23:50)
[2022-09-11 11:32] LABS: Glucose,Whole Blood 116 mg/dL (70-110)
[2022-09-11] MEDS: INSULIN ASPART (NovoLOG) 100 UNIT/ML VIAL SQ SCH ×3 (11:38→21:29)
[2022-09-11] MEDS: LORazepam 0.5 MG TAB PO PRN ×2 (12:51→16:56)
[2022-09-11] MEDS: CYCLOBENZAPRINE 10 MG TAB PO PRN (16:56)
[2022-09-11 17:01] LABS: Glucose,Whole Blood 170 mg/dL (70-110)
--- NOTE | 2022-09-11 18:02 | P.HPIM ---
History of Present Illness H&P Date: 09/11/22 History of Presenting Illness: Patient is a very pleasant 57-year-old male with a past medical history of hypertension, hyperlipidemia, type II lot-hiegpjz-ayoygxiut diabetes mellitus, chronic back pain, COPD with continued nicotine dependence, obstructive sleep apnea unable to tolerate CPAP patient reports recently being started on Provigil, hepatic steatosis, anxiety, depression, and bipolar disorder. Patient presented to the emergency department secondary to reports of severe anxiety and panic attack. Patient reports that he is on Klonopin1 mg 3 times daily and and recently ran out on Sunday. Patient states he has been on this medication for years and since pain now he is having severe panic attacks. Patient states he drank a fifth of alcohol in attempts to help with his severe anxiety but states this only made things worse since he came to the ER for evaluation. Patient reports feeling severely anxious with palpitations but denies experiencing any headache, lightheadedness, dizziness, chest pain, or shortness of breath. Upon arrival to the emergency department patient was found to be in hypertensive urgency with blood pressure 214/151 and tachycardic with heart rate 130s-140's. He underwent full evaluation. EKG was completed showing sinus tachycardia with heart rate of 141 upon personal review and interpretation. Chest x-ray completed and reviewed, lungs appear clear showing no signs of acute cardiopulmonary process. Labs completed and reviewed. CBC showing leukocytosis with WBC count of 15.3, thrombocytosis with platelet count of 621, and normocytic anemia with hemoglobin of 12.4, BMP unremarkable. Liver profile showing slightly elevated alkaline phosphatase of 148. Lipase elevated at 1093. D-dimer elevated at 3.18. CTA chest was completed and radiology report reviewed, negative for pulmonary emboli. Discussed plan of care with the ED provider, patient being admitted under our services to general medical unit with telemetry for benzodiazepine withdrawal and alcoholic pancreatitis. Review of systems: Pertinent positives and negatives as discussed in HPI, a complete review of systems was performed and all other systems are negative. Physical exam: Vital signs reviewed and stable. General: Nontoxic, no distress and appears stated age. Derm: Skin warm and dry, normal coloration for ethnicity. Head: Atraumatic, normocephalic and symmetric. Eyes: EOMs intact, no lid lag, and anicteric sclera Mouth: no lip lesions, mucus membranes moist Cardiovascular: tachycardic rate and regular rhythm with normal S1S2, no murmur, positive posterior tibial pulses bilaterally, and cap refill < 2 seconds. Lungs: Respirations even, regular, and unlabored on room air. Lungs CTA bilaterally, no rhonchi, no rales, no wheezing, and no accessory muscle usage. Abdominal: soft, nontender to palpation, no guarding, no appreciable organomegaly Ext: ROM intact. No gross muscle atrophy, no edema, no contractures Neuro: Speech clear, face symmetrical and CN II-XII grossly intact with no noted focal neuro deficits Psych: Alert and oriented to person, place, time, and situation. Appropriate and pleasant affect. Assessment and Plan of Care: Benzodiazepine withdrawal Alcoholic pancreatitis, with binge drinking behaviors Anxiety with panic attacks Sinus tachycardia, secondary to above Hypertensive urgency, secondary to above. -Upon arrival to the emergency department patient was found to be in hypertensive urgency with blood pressure 214/151 and tachycardic with heart rate 130s-140's. -EKG was completed showing sinus tachycardia with heart rate of 141 upon personal review and interpretation. -Chest x-ray completed and reviewed, lungs appear clear showing no signs of acute cardiopulmonary process. -Labs completed and reviewed. CBC showing leukocytosis with WBC count of 15.3, thrombocytosis with platelet count of 621, and normocytic anemia with hemoglobin of 12.4, BMP unremarkable. Liver profile showing slightly elevated alkaline phosphatase of 148. Lipase elevated at 1093. -Discussed plan of care with the ED provider, patient admitted under our services to general medical unit with telemetry for benzodiazepine withdrawal and alcoholic pancreatitis. -Monitoring of CIWA scores to continue and patient to be medicated with Ativan 0.5 mg every 4 hours as needed for CIWA score of 4-5, Ativan 1 mg every 4 hours for CIWA score of 6-7, Ativan 2 mg every 3 hours CIWA score of 8-9, and Ativan 2 mg every 2 hours forr CIWA score of 10 or greater. -consult to psychiatry. Elevated d-dimer, CTA negative for PE - D-dimer elevated at 3.18. -CTA chest was completed and radiology report reviewed, negative for pulmonary emboli. The patient is admitted with an anticipated greater than 2 midnight stay for evaluation of benzodiazepine withdrawal and alcoholic pancreatitis CODE STATUS: Full code DVT prophylaxis: Lovenox Discussed with: Patient, ED physician, and RN Anticipated discharge date: Clinical course to determine Anticipated discharge place: Home Patient was seen independently by Nurse Practitioner. This document was prepared using [employer] dictation software. Please allow for errors in diesel engine erector while rare they do occur. Past Medical History Past Medical History: Diabetes Mellitus, GERD/Reflux, Hyperlipidemia, Hypertension, Liver Disease, Renal Disease, Sleep Apnea/CPAP/BIPAP Additional Past Medical History / Comment(s): Neuropathy, back pain, no CPAP use, Cirrhosis, "kidneys don't always work right." History of Any Multi-Drug Resistant Organisms: None Reported Past Surgical History: Heart Catheterization, Joint Replacement, Orthopedic Surgery Additional Past Surgical History / Comment(s): Bilateral cataracts removed, bilateral hip replacements, right heal surgery with screws/plates/pins placed, L2-L4 cage infusion, Past Anesthesia/Blood Transfusion Reactions: No Reported Reaction Past Psychological History: Anxiety, Bipolar, Depression, Schizoaffective Disorder Smoking Status: Current every day smoker, Former smoker, Vaper Past Alcohol Use History: None Reported Past Drug Use History: None Reported - Past Family History Father Family Medical History: Myocardial Infarction (MA) Additional Family Medical History / Comment(s): MA in mid 30's. Mother Family Medical History: Dementia family Additional Family Medical History / Comment(s): Anxiety. Medications and Allergies Home Medications Medication Instructions Recorded Confirmed Type Aspirin EC [Ecotrin Low Dose] 81 mg PO DAILY 30 Days tab 08/17/21 09/11/22 Rx Calcium Carbonate [Tums] 500 mg PO QID PRN 30 Days 08/17/21 09/11/22 Rx Ferrous Sulfate [Iron (65 MG 325 mg PO DAILY 30 Days tab 08/17/21 09/11/22 Rx Elemental)] Mirtazapine [Remeron] 15 mg PO HS 30 Days tab 08/17/21 09/11/22 Rx Pantoprazole [Protonix] 40 mg PO HS 30 Days tab 08/17/21 09/11/22 Rx Pravastatin Sodium [Pravachol] 40 mg PO HS 30 Days tab 08/17/21 09/11/22 Rx Vitamin B Complex 1 cap PO DAILY 30 Days cap 08/17/21 09/11/22 Rx Ziprasidone [Geodon] 40 mg PO BID 30 Days cap 08/17/21 09/11/22 Rx busPIRone HCL 15 mg PO BID 30 Days tab 08/17/21 09/11/22 Rx glipiZIDE [Glucotrol] 20 mg PO BID 30 Days tab 08/17/21 09/11/22 Rx metFORMIN HCL [Glucophage] 1,000 mg PO BID 30 Days #60 tab 08/17/21 09/11/22 Rx Multivitamins, Thera [Multivitamin 1 tab PO DAILY 10/07/21 09/11/22 History (formulary)] modafiniL [Provigil] 200 mg PO DAILY 10/19/21 09/11/22 History Magnesium Oxide [Mag-Ox] 400 mg PO DAILY 04/25/22 09/11/22 History carvediloL [Coreg] 25 mg PO BID 04/25/22 09/11/22 History Cyclobenzaprine [Flexeril] 10 mg PO TID PRN 09/11/22 09/11/22 History Gabapentin 800 mg PO Q6H 09/11/22 09/11/22 History HYDROcodone/APAP 7.5-325MG [[place] 1 tab PO Q6HR PRN 09/11/22 09/11/22 History 7.5-325] Melatonin 5 mg PO HS PRN 09/11/22 09/11/22 History Naproxen [Naprosyn] 500 mg PO Q12H PRN 09/11/22 09/11/22 History Pregabalin [Lyrica] 100 mg PO TID 09/11/22 09/11/22 History Sennosides/Docusate Sodium [Senna 1 tab PO DAILY PRN 09/11/22 09/11/22 History Plus 8.6-50 mg Softgel] Tirzepatide [Mounjaro] 5 mg SQ Q7D 09/11/22 09/11/22 History clonazePAM [KlonoPIN] 1 mg PO TID 09/11/22 09/11/22 History Allergies Allergy/AdvReac Type Severity Reaction Status Date / Time thimerosal Allergy Severe Rash/Hives/throat Verified 09/11/22 09:17 swelling neomycin Allergy Rash/Hives Verified 09/11/22 09:17 Physical Exam Vitals: Vital Signs Temp Pulse Resp BP Pulse Ox 09/11/22 10:19 98.2 F 09/11/22 09:44 120 H 18 136/96 95 09/11/22 06:50 123 H 18 149/101 98 09/11/22 04:33 98.1 F 130 H 22 214/151 98 Intake and Output 09/10/22 09/11/22 09/11/22 22:59 06:59 14:59 Other: Weight 83.915 kg Results CBC & Chem 7: 09/11/22 05:58 09/11/22 05:00 Labs: Abnormal Lab Results - Last 24 Hours (Table) 09/11/22 09/11/22 09/11/22 Range/Units 05:00 05:23 05:58 WBC 15.3 H (3.8-10.6) k/uL RBC 4.10 L (4.30-5.90) m/uL Hgb 12.4 L D (13.0-17.5) gm/dL Hct 37.7 L (39.0-53.0) % Plt Count 621 H D (150-450) k/uL Neutrophils # 11.9 H (1.3-7.7) k/uL D-Dimer 3.18 H (<0.60) mg/L FEU Carbon Dioxide 16 L (22-30) mmol/L Glucose 128 H (74-99) mg/dL Alkaline Phosphatase 148 H (38-126) U/L Total Protein 8.4 H (6.3-8.2) g/dL Lipase 1093 H (23-300) U/L
[2022-09-11 20:41] LABS: Glucose,Whole Blood 128 mg/dL (70-110)
[2022-09-11] MEDS: PRAVASTATIN SODIUM 40 MG TAB PO SCH (21:30)
[2022-09-11] MEDS: MIRTAZAPINE 15 MG TAB PO SCH (21:30)
[2022-09-11] MEDS: PANTOPRAZOLE 40 MG TABLET PO SCH (21:30)
[2022-09-12] MEDS: GABAPENTIN 400 MG CAP PO SCH ×4 (06:27→23:32)
[2022-09-12 07:14] LABS: Basophils % (A) 0 %; Eosinophils # (A) 0.2 k/uL (0-0.7); Eosinophils % (A) 2 %; HGB 11.4 gm/dL (13.0-17.5); Lymphocytes % (A) 26 %; MCH 30.8 pg (25.0-35.0); MCHC 32.7 g/dL (31.0-37.0); Mean Platelet Volume 7.6; Monocytes # (A) 0.5 k/uL (0-1.0); Monocytes % (A) 6 %; Neutrophils # (A) 4.8 k/uL (1.3-7.7); Neutrophils % (A) 62 %; Platelet Count 540 k/uL (150-450); RBC 3.72 m/uL (4.30-5.90); WBC 7.6 k/uL (3.8-10.6)
[2022-09-12 07:31] LABS: Glucose,Whole Blood 158 mg/dL (70-110)
[2022-09-12 07:38] LABS: African American GFR (CKD) >90 (>60 ml/min/1.73 sqM); Anion Gap 8 mmol/L; Blood Urea Nitrogen 10 mg/dL (9-20); Calcium 9.1 mg/dL (8.4-10.2); Carbon Dioxide 25 mmol/L (22-30); Chloride 106 mmol/L (98-107); Glucose 136 mg/dL (74-99); Lipase 248 U/L (23-300); Magnesium 2.2 mg/dL (1.6-2.3); Non-African American GFR(CKD) >90 (>60 ml/min/1.73 sqM); Potassium 4.8 mmol/L (3.5-5.1); Sodium 139 mmol/L (137-145)
[2022-09-12] MEDS: MULTIVITAMINS, THERA 1 EACH TAB PO SCH (08:12)
[2022-09-12] MEDS: ENOXAPARIN 40 MG/0.4 ML SYRINGE SQ SCH (08:13)
[2022-09-12] MEDS: busPIRone HCl 5 MG TAB PO SCH ×2 (08:13→21:21)
[2022-09-12] MEDS: ASPIRIN 81 MG PO SCH (08:13)
[2022-09-12] MEDS: carvediloL 12.5 MG TAB PO SCH ×2 (08:13→16:37)
[2022-09-12] MEDS: THIAMINE 100 MG TAB PO SCH (08:13)
[2022-09-12] MEDS: ZIPRASIDONE 40 MG CAP PO SCH ×2 (08:14→21:21)
[2022-09-12] MEDS: INSULIN ASPART (NovoLOG) 100 UNIT/ML VIAL SQ SCH ×4 (08:14→21:21)
[2022-09-12] MEDS: LORazepam 0.5 MG TAB PO PRN ×3 (08:14→23:35)
[2022-09-12] MEDS: FERROUS SULFATE 325 MG TAB PO SCH (08:14)
[2022-09-12] MEDS: SODIUM CHLORIDE 0.9% 1,000 ML IV SCH ×2 (08:14→17:48)
[2022-09-12] MEDS: MAGNESIUM OXIDE 400 MG TAB PO SCH (08:14)
[2022-09-12] MEDS: HYDROcodone/APAP 7.5-325MG 1 EACH TAB PO PRN ×3 (09:41→22:02)
[2022-09-12 11:27] LABS: Glucose,Whole Blood 129 mg/dL (70-110)
--- NOTE | 2022-09-12 13:11 | P.CN ---
Psychiatric Consult - . Consult date: 09/12/22 Consult:: 09/12/22 12:57 History & Physical: IDENTIFYING DATA: Andrea is a 57-year-old male admitted to the medical floors for pancreatitis and etoh withdrawal. Patient currently lives at [facility]. reason for consultation: Increased anxiety and panic attacks. HISTORY OF PRESENT ILLNESS: Patient was seen today for psychiatric consultation on medical floors. Patient was initially admitted to the ER on 09/11. Patient was initially complaining of increased anxiety and was seen earlier that day. Patient went home after being discharged and began drinking alcohol and also took his Klonopin to control his anxiety. Patient's troponins were negative, lipase was significantly elevated at 1093. WBCs elevated at 15.3. Patient was found to have pancreatitis and going to alcohol withdrawal on admission to the medical floors. Patient was seen today laying in the bed and was agreeable to speak to engineering writer. Patient was fairly pleasant with engineering writer however did appear mildly anxious. He claims that he was managing his anxiety to prime the hospital. He states that he's been having trouble with his son lately and states that he asked him for money and states that "he didn't respond to me". He claims that his son may be upset at him. He claims that the anxiety is in giving him about 2 or 3 panic attacks a week. He states that it wakes him from his sleep. He claims that he is not having depression at this time. Things that he sleeping fairly at nighttime. Claims of fair appetite. Patient is denying any suicidal or homicidal ideations intent or plan. Denying any auditory or visual hallucinations. Patient claims that he vapes nicotine products, does not use any other recreational drugs. She has been using Klonopin and [place] are claims that these are prescribed to him. Has a history of alcohol abuse and mild alcohol withdrawal symptoms at this time including mild tremors. His history of abusing inhalants in the past however states that he is sober from this. PAST PSYCHIATRIC HISTORY: He has a long history of psychiatric illness with multiple psychiatric hospitalizations and last psychiatric admission was in July 2021. According to [facility] his diagnosis he has a bipolar disorder, social anxiety disorder, alcohol use disorder and intellect use disorder. She currently follows up at [facility]. Patient has been on several different psychiatric medications in including Geodon, BuSpar, Klonopin, also, naltrexone, processing, Remeron. Denies any suicide attempts in the past. PAST MEDICAL HISTORY: Diabetes mellitus, back\\hip pain, obstructive sleep apnea ALLERGIES: Thimerosal, neomycin SUBSTANCE USE HISTORY: As per HPI. FAMILY PSYCHIATRIC/SUBSTANCE USE HISTORY: His father had a history of a mental illness. LEGAL HISTORY: He was also in mental health court for legal charges related to inhalant use. SOCIAL HISTORY: His born and raised in [place]. 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 He is on disability related to his mental and physical problems. 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 He quit when the work became too demanding. He is and has one son with whom he has no contact. Currently lives at [facility]. MENTAL STATUS EXAM: General Appearance: Patient appears to be bald, has a goatee, stated age is alert, pleasant, and cooperative. Patient appears to have fair hygiene and grooming wearing hospital gown with fair eye contact. Behavior: Patient is calmly lying in bed without any agitated behavior. Attempts to cooperate Speech: Patient's speech is fluent and nonpressured. Mood/Affect: Patient reports their mood is "mainly anxious", affect is congruent Suicidality/Homicidality: Patient denies having any suicidal or homicidal ideation intent or plan. Perceptions: Patient denies any visual hallucinations and denies any auditory hallucinations Though content/process: There is no evidence of any delusional thought content and thought process is linear and goal-directed. Focused on medications and anxiety. Memory and concentration: AOX3, grossly intact for the purposes of this session. Can spell "WORLD" backwards Judgment and insight: poor IMPRESSIONS: Bipolar disorder unspecified Generalized anxiety disorder with panic attacks Alcohol use disorder, currently in withdrawal History of inhalant abuse Nicotine dependence Possible benzodiazepine and opiate abuse PLAN: -At this time patient DOES NOT meet criteria for inpatient psychiatric admission. -Would recommend the following medication changes/additions: Can continue with BuSpar as prescribed, melatonin increased to 10 mg daily at bedtime for sleep, Geodon 40 mg twice a day for mood stabilization, Remeron 15 mg daily at bedtime for sleep/mood, patient is agreeable to start propranolol 20 mg twice a day for anxiety/panic attacks. -CIWA protocol with PRN Ativan for alcohol withdrawal. Continue to monitor vital signs. -caustic plant worker to provide patient with outpatient mental health/psychiatry resources for appropriate follow up upon discharge -Leaf Size Picker spoke with patient about substance abuse and the harmful effects on medical and mental health, patient verbally understood and agreed. -Patient claims that he will be going back to [facility] upon discharge. -Communicated plan to patient's nurse -Will continue to follow along tomorrow -Please contact with any questions. 09/12/22 13:12
[2022-09-12] MEDS: PROPRANOLOL 20 MG TAB PO SCH ×2 (13:36→21:21)
[2022-09-12] MEDS: CYCLOBENZAPRINE 10 MG TAB PO PRN (15:00)
[2022-09-12 17:12] LABS: Glucose,Whole Blood 185 mg/dL (70-110)
--- NOTE | 2022-09-12 18:19 | P.PN ---
Subjective Progress Note Date: 09/12/22 Hospital course: Patient is a very pleasant 57-year-old male with a past medical history of hypertension, hyperlipidemia, type II chm-hdjtoky-etqwmksay diabetes mellitus, chronic back pain, COPD with continued nicotine dependence, obstructive sleep apnea unable to tolerate CPAP patient reports recently being started on Provigil, hepatic steatosis, anxiety, depression, and bipolar disorder. Patient presented to the emergency department secondary to reports of severe anxiety and panic attack. Patient reports that he is on Klonopin1 mg 3 times daily and and recently ran out on Sunday. Patient states he has been on this medication for years and since pain now he is having severe panic attacks. Patient states he drank a fifth of alcohol in attempts to help with his severe anxiety but states this only made things worse since he came to the ER for evaluation. Patient reports feeling severely anxious with palpitations but denies experiencing any headache, lightheadedness, dizziness, chest pain, or shortness of breath. Upon arrival to the emergency department patient was found to be in hypertensive urgency with blood pressure 214/151 and tachycardic with heart rate 130s-140's. He underwent full evaluation. EKG was completed showing sinus tachycardia with heart rate of 141 upon personal review and interpretation. Chest x-ray completed and reviewed, lungs appear clear showing no signs of acute cardiopulmonary process. Labs completed and reviewed. CBC showing leukocytosis with WBC count of 15.3, thrombocytosis with platelet count of 621, and normocytic anemia with hemoglobin of 12.4, BMP unremarkable. Liver profile showing slightly elevated alkaline phosphatase of 148. Lipase elevated at 1093. D-dimer elevated at 3.18. CTA chest was completed and radiology report reviewed, negative for pulmonary emboli. Discussed plan of care with the ED provider, patient being admitted under our services to general medical unit with telemetry for benzodiazepine withdrawal and alcoholic pancreatitis. Physical exam: Patient seen and evaluated at bedside this morning. He has had 2.5 mg of Ativan over the past 24 hours. Current CIWA score is 5. Patient reports feeling a little shaky but otherwise denies having any other complaints or concerns at this time. Vital signs reviewed and stable. General: Nontoxic, no distress and appears stated age. Derm: Skin warm and dry, normal coloration for ethnicity. Head: Atraumatic, normocephalic and symmetric. Eyes: EOMs intact, no lid lag, and anicteric sclera Mouth: no lip lesions, mucus membranes moist Cardiovascular: tachycardic rate and regular rhythm with normal S1S2, no murmur, positive posterior tibial pulses bilaterally, and cap refill < 2 seconds. Lungs: Respirations even, regular, and unlabored on room air. Lungs CTA bilaterally, no rhonchi, no rales, no wheezing, and no accessory muscle usage. Abdominal: soft, nontender to palpation, no guarding, no appreciable organomegaly Ext: ROM intact. No gross muscle atrophy, no edema, no contractures Neuro: Speech clear, face symmetrical and CN II-XII grossly intact with no noted focal neuro deficits Psych: Alert and oriented to person, place, time, and situation. Appropriate and pleasant affect. Assessment and Plan of Care: Benzodiazepine withdrawal Alcoholic pancreatitis, with binge drinking behaviors Anxiety with panic attacks Sinus tachycardia, secondary to above. Resolved. Hypertensive urgency, secondary to above. Resolved. Leukocytosis, reactive. Resolved. -Upon arrival to the emergency department patient was found to be in hypertensive urgency with blood pressure 214/151 and tachycardic with heart rate 130s-140's. Blood pressure and heart rate now controlled with morning BP 120/75 and heart rate of 87. -Labs completed and reviewed. CBC showing resolution of previous leukocytosis with WBC count decreasing from 15.3 down to 7.6, thrombocytosis improving with platelet count decreasing down to 540, and normocytic anemia with hemoglobin of 11.4, BMP unremarkable. Liver profile showing slightly elevated alkaline ph osphatase of 148. Lipase initially elevated at 1093 and decreasing down to 248 this morning. -Diet increased to regular diet at this time and will monitor how well patient tolerates. -Continue Monitoring of CIWA scores to continue and patient to be medicated with Ativan 0.5 mg every 4 hours as needed for CIWA score of 4-5, Ativan 1 mg every 4 hours for CIWA score of 6-7, Ativan 2 mg every 3 hours CIWA score of 8-9, and Ativan 2 mg every 2 hours forr CIWA score of 10 or greater. Patient has had a total of 2.5 mg of Ativan over the past 24 hours. Current CIWA score is 5 -Consult placed to psychiatry. Elevated d-dimer, CTA negative for PE - D-dimer elevated at 3.18. -CTA chest was completed and radiology report reviewed, negative for pulmonary emboli. The patient is admitted with an anticipated greater than 2 midnight stay for evaluation of benzodiazepine withdrawal and alcoholic pancreatitis CODE STATUS: Full code DVT prophylaxis: Lovenox Discussed with: Patient and RN Anticipated discharge date: Clinical course to determine Anticipated discharge place: Home Patient was seen independently by Nurse Practitioner. This document was prepared using [facility] dictation software. Please allow for errors in bessemer regulator while rare they do occur. Ajit Rudolph CLIENT SERVICES ASSISTANT rendered care for this patient independently, reviewed the findings and plan as documented in the note above. I did not physically speak with or examine the patient on this date. Objective - Vital Signs Vital signs: Vital Signs Temp 97.4 F L 09/12/22 07:28 Pulse 87 09/12/22 07:28 Resp 18 09/12/22 07:28 BP 120/75 09/12/22 07:28 Pulse Ox 96 09/12/22 07:28 FiO2 Intake & Output 09/11/22 09/12/22 09/12/22 18:59 06:59 18:59 Intake Total 400 590 Balance 400 590 Weight 83.915 kg Intake: Intake, IV Titration 400 Amount Sodium Chloride 0.9% 1, 400 000 ml @ 100 mls/hr IV . Q10H HEMANTH Rx#:[id number] Oral 590 Other: Voiding Method Toilet Toilet Toilet # Voids 2 - Labs CBC & Chem 7: 09/12/22 05:50 09/12/22 05:50 Labs: Abnormal Lab Results - Last 24 Hours (Table) 09/11/22 09/11/22 09/11/22 Range/Units 11:30 16:59 20:40 RBC (4.30-5.90) m/uL Hgb (13.0-17.5) gm/dL Hct (39.0-53.0) % Plt Count (150-450) k/uL Glucose (74-99) mg/dL POC Glucose (mg/dL) 116 H 170 H 128 H (70-110) mg/dL 09/12/22 09/12/22 09/12/22 Range/Units 05:50 05:50 07:30 RBC 3.72 L (4.30-5.90) m/uL Hgb 11.4 L (13.0-17.5) gm/dL Hct 35.0 L (39.0-53.0) % Plt Count 540 H (150-450) k/uL Glucose 136 H (74-99) mg/dL POC Glucose (mg/dL) 158 H (70-110) mg/dL
[2022-09-12 20:21] LABS: Glucose,Whole Blood 181 mg/dL (70-110)
[2022-09-12] MEDS ORDERED: MELATONIN 5 MG TABLET PO SCH (21:00)
[2022-09-12] MEDS: MIRTAZAPINE 15 MG TAB PO SCH (21:21)
[2022-09-12] MEDS: PRAVASTATIN SODIUM 40 MG TAB PO SCH (21:21)
[2022-09-12] MEDS: PANTOPRAZOLE 40 MG TABLET PO SCH (21:21)
[2022-09-13] MEDS: SODIUM CHLORIDE 0.9% 1,000 ML IV SCH ×2 (03:43→12:25)
[2022-09-13] MEDS: GABAPENTIN 400 MG CAP PO SCH ×2 (04:47→12:25)
[2022-09-13] MEDS: HYDROcodone/APAP 7.5-325MG 1 EACH TAB PO PRN ×2 (04:47→10:54)
[2022-09-13] MEDS: LORazepam 0.5 MG TAB PO PRN ×2 (05:21→12:25)
[2022-09-13 07:29] LABS: Glucose,Whole Blood 142 mg/dL (70-110)
[2022-09-13] MEDS: INSULIN ASPART (NovoLOG) 100 UNIT/ML VIAL SQ SCH ×2 (07:50→12:25)
[2022-09-13] MEDS: MAGNESIUM OXIDE 400 MG TAB PO SCH (08:33)
[2022-09-13] MEDS: MULTIVITAMINS, THERA 1 EACH TAB PO SCH (08:33)
[2022-09-13] MEDS: ASPIRIN 81 MG PO SCH (08:33)
[2022-09-13] MEDS: busPIRone HCl 5 MG TAB PO SCH (08:33)
[2022-09-13] MEDS: carvediloL 12.5 MG TAB PO SCH (08:34)
[2022-09-13] MEDS: PROPRANOLOL 20 MG TAB PO SCH (08:34)
[2022-09-13] MEDS: ZIPRASIDONE 40 MG CAP PO SCH (08:34)
[2022-09-13] MEDS: ENOXAPARIN 40 MG/0.4 ML SYRINGE SQ SCH (08:34)
[2022-09-13] MEDS: THIAMINE 100 MG TAB PO SCH (08:34)
[2022-09-13] MEDS: FERROUS SULFATE 325 MG TAB PO SCH (08:34)
[2022-09-13] MEDS: CYCLOBENZAPRINE 10 MG TAB PO PRN (08:40)
[2022-09-13 08:46] LABS: HCT 37.6 % (39.6-50.0); HGB 11.5 g/dL (13.0-17.0); MCH 30.2 pg (27.0-32.0); MCHC 30.6 g/dL (32.0-37.0); MCV 98.7 fL (80.0-97.0); RBC 3.81 X 10*6/uL (4.40-5.60); WBC 7.05 X 10*3/uL (4.50-10.00)
[2022-09-13 08:47] LABS: Mean Platelet Volume 10.2 fL (9.5-12.2); NRBC Per 100 WBC 0 /100 WBCS (0.0-0.0); Platelet Count 314 X 10*3/uL (140-440); RDW 13.6 % (11.5-14.5)
[2022-09-13 12:22] LABS: Glucose,Whole Blood 270 mg/dL (70-110)
[2022-09-13 12:45] VITALS: BP 150/91; PULSE 83; RESP 16; TEMP 98.4
[2022-09-13 13:14] LABS: Magnesium 1.9 mg/dL (1.5-2.4)
[2022-09-13 13:15] LABS: ALT 21 U/L (10-49); AST 37 U/L (14-35); African American GFR (CKD) 90.2 (60.0-200.0); Albumin 3.8 g/dL (3.8-4.9); Albumin/Globulin Ratio 1.43 (1.60-3.17); Alkaline Phosphatase 115 U/L (41-126); BUN/Creat Ratio 9.71 Ratio (12.00-20.00); Blood Urea Nitrogen 10.2 mg/dL (9.0-27.0); Carbon Dioxide 19.5 mmol/L (20.0-27.5); Chloride 108 mmol/L (96-109); Globulin 2.7 g/dL (1.6-3.3); Glucose 157 mg/dL (70-110); Non-African American GFR(CKD) 77.9 (60.0-200.0); Potassium 5.5 mmol/L (3.5-5.5); Sodium 139 mmol/L (135-145); Total Bilirubin <0.15 mg/dL (0.30-1.20); Total Protein 6.5 g/dL (6.2-8.2)
--- NOTE | 2022-09-13 14:14 | P.DS ---
Providers Date of admission: 09/11/22 09:49 Expected date of discharge: 09/13/22 Attending physician: Cameron Cross MD Consults: 09/11/22 18:02 Consult Physician Routine Consulting Provider: Conrado David Consult Reason/Comments: increased anxiety, panic attacks Do you want consulting provider notified?: Yes [facility]: Discharge Diagnosis: Benzodiazepine withdrawal Alcoholic pancreatitis, with binge drinking behaviors Anxiety with panic attacks Sinus tachycardia, secondary to above. Resolved . Hypertensive urgency, secondary to above. Resolved. Leukocytosis, reactive. Resolved. Elevated d-dimer, CTA negative for PE Hospital Course: Patient is a very pleasant 57-year-old male with a past medical history of hypertension, hyperlipidemia, type II pua-uqzmhfs-zeahcsfus diabetes mellitus, chronic back pain, COPD with continued nicotine dependence, obstructive sleep apnea unable to tolerate CPAP patient reports recently being started on Provigil, hepatic steatosis, anxiety, depression, and bipolar disorder. Patient presented to the emergency department secondary to reports of severe anxiety and panic attack. Patient reports that he is on Klonopin1 mg 3 times daily and and recently ran out on Sunday. Patient states he has been on this medication for years and since pain now he is having severe panic attacks. Patient states he drank a fifth of alcohol in attempts to help with his severe anxiety but states this only made things worse since he came to the ER for evaluation. Patient reports feeling severely anxious with palpitations but denies experiencing any headache, lightheadedness, dizziness, chest pain, or shortness of breath. Upon arrival to the emergency department patient was found to be in hypertensive urgency with blood pressure 214/151 and tachycardic with heart rate 130s-140's. He underwent full evaluation. EKG was completed showing sinus tachycardia with heart rate of 141 upon personal review and interpretation. Chest x-ray completed and reviewed, lungs appear clear showing no signs of acute cardiopulmonary process. Labs completed and reviewed. CBC showing leukocytosis with WBC count of 15.3, thrombocytosis with platelet count of 621, and normocytic anemia with hemoglobin of 12.4, BMP unremarkable. Liver profile showing slightly elevated alkaline phosphatase of 148. Lipase elevated at 1093. D-dimer elevated at 3.18. CTA chest was completed and radiology report reviewed, negative for pulmonary emboli. Discussed plan of care with the ED provider, patient being admitted under our services to general medical unit with telemetry for benzodiazepine withdrawal and alcoholic pancreatitis. he was evaluated by psychiatry recommending starting patient on propranolol twice daily for treatment of anxiety/panic attacks. Lipase decreasing from 1093 down to 248 with IV fluid hydration. Patient's diet increased to regular diet and he has tolerating well. Patient has averaged 2.5 mg of Ativan needed every 24 hours for signs/symptoms of withdrawal. Medically, patient is stable at this time. Blood pressure and heart rate much better controlled with morning blood pressure 135/84 and heart rate of 72. patient requesting discharge at this time. Patient to be provided with a 3 day prescription for Klonopin and recommended that he follow up outpatient with his PCP. Patient educated on importance of discontinuation of Provigil as this can worsen his anxiety. Patient also advised to discuss with his PCP the process of weaning off of benzodiazepines. Patient also advised against drinking while taking benzodiazepines as this can result in respiratory depression and . Patient verbalizing understanding and denying having any further questions, concerns, or complaints. Discussed with psychiatry, patient medically stable for discharge at this time. Patient provided with community resources available to him in his area. Physical exam: Patient seen and evaluated at bedside this morning. He has had 2.5 mg of Ativan over the past 24 hours. Current CIWA score is 5. Patient reports feeling a little shaky but otherwise denies having any other complaints or concerns at this time. Vital signs reviewed and stable. General: Nontoxic, no distress and appears stated age. Derm: Skin warm and dry, normal coloration for ethnicity. Head: Atraumatic, normocephalic and symmetric. Eyes: EOMs intact, no lid lag, and anicteric sclera Mouth: no lip lesions, mucus membranes moist Cardiovascular: tachycardic rate and regular rhythm with normal S1S2, no murmur, positive posterior tibial pulses bilaterally, and cap refill < 2 seconds. Lungs: Respirations even, regular, and unlabored on room air. Lungs CTA bilaterally, no rhonchi, no rales, no wheezing, and no accessory muscle usage. Abdominal: soft, nontender to palpation, no guarding, no appreciable organomegaly Ext: ROM intact. No gross muscle atrophy, no edema, no contractures Neuro: Speech clear, face symmetrical and CN II-XII grossly intact with no noted focal neuro deficits Psych: Alert and oriented to person, place, time, and situation. Appropriate and pleasant affect. A total of 33 minutes of time were spent preparing this complex discharge summary. Pt was discharged on 09/13/22 at 1:56 PM. Patient was seen independently by Nurse Practitioner. This document was prepared using [employer] dictation software. Please allow for errors in straddle carrier operator while rare they do occur. Ajit Rudolph NP rendered care for this patient independently, reviewed the findings and plan as documented in the note above. I did not physically speak with or examine the patient on this date. Patient Condition at Discharge: Stable Plan - Discharge Summary Discharge Rx Participant: No New Discharge Prescriptions: New Propranolol HCl 40 mg PO BID 30 Days #60 tablet Continue Mirtazapine [Remeron] 15 mg PO HS 30 Days tab Calcium Carbonate [Tums] 500 mg PO QID PRN 30 Days PRN Reason: Heartburn busPIRone HCL 15 mg PO BID 30 Days tab Aspirin EC [Ecotrin Low Dose] 81 mg PO DAILY 30 Days tab glipiZIDE [Glucotrol] 20 mg PO BID 30 Days tab Ferrous Sulfate [Iron (65 MG Elemental)] 325 mg PO DAILY 30 Days tab Pravastatin Sodium [Pravachol] 40 mg PO HS 30 Days tab Vitamin B Complex 1 cap PO DAILY 30 Days cap Gabapentin 800 mg PO Q6H Cyclobenzaprine [Flexeril] 10 mg PO TID PRN PRN Reason: Muscle Spasm Tirzepatide [Mounjaro] 5 mg SQ Q7D Naproxen [Naprosyn] 500 mg PO Q12H PRN PRN Reason: Pain Ziprasidone [Geodon] 40 mg PO BID 30 Days cap metFORMIN HCL [Glucophage] 1,000 mg PO BID 30 Days #60 tab Pantoprazole [Protonix] 40 mg PO HS 30 Days tab Multivitamins, Thera [Multivitamin (formulary)] 1 tab PO DAILY Magnesium Oxide [Mag-Ox] 400 mg PO DAILY Sennosides/Docusate Sodium [Senna Plus 8.6-50 mg Softgel] 1 tab PO DAILY PRN PRN Reason: Constipation Melatonin 5 mg PO HS PRN PRN Reason: Insomnia Pregabalin [Lyrica] 100 mg PO TID HYDROcodone/APAP 7.5-325MG [[place] 7.5-325] 1 tab PO Q6HR PRN PRN Reason: Pain Changed clonazePAM [KlonoPIN] 1 mg PO TID 3 Days #9 tab Discontinued modafiniL [Provigil] 200 mg PO DAILY carvediloL [Coreg] 25 mg PO BID Discharge Medication List Aspirin EC [Ecotrin Low Dose] 81 mg PO DAILY 30 Days tab 08/17/21 [Rx] Calcium Carbonate [Tums] 500 mg PO QID PRN 30 Days 08/17/21 [Rx] Ferrous Sulfate [Iron (65 MG Elemental)] 325 mg PO DAILY 30 Days tab 08/17/21 [Rx] Mirtazapine [Remeron] 15 mg PO HS 30 Days tab 08/17/21 [Rx] Pantoprazole [Protonix] 40 mg PO HS 30 Days tab 08/17/21 [Rx] Pravastatin Sodium [Pravachol] 40 mg PO HS 30 Days tab 08/17/21 [Rx] Vitamin B Complex 1 cap PO DAILY 30 Days cap 08/17/21 [Rx] Ziprasidone [Geodon] 40 mg PO BID 30 Days cap 08/17/21 [Rx] busPIRone HCL 15 mg PO BID 30 Days tab 08/17/21 [Rx] glipiZIDE [Glucotrol] 20 mg PO BID 30 Days tab 08/17/21 [Rx] metFORMIN HCL [Glucophage] 1,000 mg PO BID 30 Days #60 tab 08/17/21 [Rx] Multivitamins, Thera [Multivitamin (formulary)] 1 tab PO DAILY 10/07/21 [History] Magnesium Oxide [Mag-Ox] 400 mg PO DAILY 04/25/22 [History] Cyclobenzaprine [Flexeril] 10 mg PO TID PRN 09/11/22 [History] Gabapentin 800 mg PO Q6H 09/11/22 [History] HYDROcodone/APAP 7.5-325MG [[place] 7.5-325] 1 tab PO Q6HR PRN 09/11/22 [History] Melatonin 5 mg PO HS PRN 09/11/22 [History] Naproxen [Naprosyn] 500 mg PO Q12H PRN 09/11/22 [History] Pregabalin [Lyrica] 100 mg PO TID 09/11/22 [History] Sennosides/Docusate Sodium [Senna Plus 8.6-50 mg Softgel] 1 tab PO DAILY PRN 09/11/22 [History] Tirzepatide [Mounjaro] 5 mg SQ Q7D 09/11/22 [History] Propranolol HCl 40 mg PO BID 30 Days #60 tablet 09/13/22 [Rx] clonazePAM [KlonoPIN] 1 mg PO TID 3 Days #9 tab 09/13/22 [Rx] Follow up Appointment(s)/Referral(s): Marlen Sher NPC [STAFF PHYSICIAN] - 10/03/22 3:10 pm (This was the first available appointment.) Patient Instructions/Handouts: Clonazepam (By mouth), Propranolol/Hydrochlorothiazide (By mouth), At-Risk Alcohol Use (DC), Panic Disorder (DC), Anxiety (GEN), Panic Attack (GEN) Activity/Diet/Wound Care/Special Instructions: Activity: As tolerated. Take breaks as needed. Diet: Heart healthy and carb consistent diet. Avoid salts, or foods with hidden salts such as canned or boxed foods and frozen dinners. Extra salt makes your heart work harder and traps the fluid in your body for longer. Special Instructions: Take all of your medications as directed and remember to keep all of your doctor's appointments and follow-up as needed. As we discussed I am recommending that you discontinue use of Provigil, as this is a stimulant and is known to cause increased anxiety. Also I have sent to home with a three-day supply of Klonopin, highly recommend considering weaning off of this medication slowly under your PCP. Thank you for allowing us to participate in your care, it was truly a pleasure having you for our patient!!! Discharge/Stand Alone Forms: AA Meetings [facility] - [facility], AA Meetings [facility], Community Resources, Outpatient Counseling, Inp Substance Abuse Facilities Discharge Disposition: HOME SELF-CARE
== END 2022-09-13 14:54 | disposition home or self-care (01) | DRG 439 ==
LOC: EC 04:32 → 5NMEDONC 09:49
PROVIDERS: ADMIT Family Medicine; ATTEND Family Medicine
PROC: HZ2ZZZZ Detoxification Services for Substance Abuse Treatment (ICD-10-PCS; principal; 2022-09-11)
DX: K85.20 Alcohol induced acute pancreatitis without necrosis or infection (principal); F10.239 Alcohol dependence with withdrawal, unspecified; F13.239 Sedative, hypnotic or anxiolytic dependence with withdrawal, unspecified; I16.0 Hypertensive urgency; Z88.8 Allergy status to other drugs, medicaments and biological substances; F31.9 Bipolar disorder, unspecified; E78.5 Hyperlipidemia, unspecified; G89.29 Other chronic pain; J44.9 Chronic obstructive pulmonary disease, unspecified; F41.9 Anxiety disorder, unspecified; K76.0 Fatty (change of) liver, not elsewhere classified; M54.9 Dorsalgia, unspecified; Z79.84 Long term (current) use of oral hypoglycemic drugs; Z79.899 Other long term (current) drug therapy; F25.9 Schizoaffective disorder, unspecified; G47.33 Obstructive sleep apnea (adult) (pediatric); R00.0 Tachycardia, unspecified; F17.290 Nicotine dependence, other tobacco product, uncomplicated; Z79.82 Long term (current) use of aspirin; Z96.643 Presence of artificial hip joint, bilateral; E11.42 Type 2 diabetes mellitus with diabetic polyneuropathy; Z59.00 Homelessness unspecified; Z98.42 Cataract extraction status, left eye; Z98.41 Cataract extraction status, right eye; Z71.41 Alcohol abuse counseling and surveillance of alcoholic
CPT/HCPCS: 36415; 71046; 71275; 80048; 80053; 83690; 83735; 84484; 85025; 85027; 85379; 85610; 85730; 93005; 96374; 99285

== ENCOUNTER 2022-10-02 10:32 | Emergency (ER) | payer MEDICARE, OTHER ==
[2022-10-02 10:40] VITALS: RESP 18
[2022-10-02] MEDS ORDERED: KETOROLAC 15 MG/ML 1 ML VIAL IM STA (11:03)
[2022-10-02] MEDS ORDERED: HYDROcodone/APAP 5-325MG 1 EACH TAB PO STA (11:03)
[2022-10-02] MEDS ORDERED: LIDOCAINE 5% PATCH TOPICAL ONE (11:03)
--- NOTE | 2022-10-02 11:55 | ED ---
Back Pain HPI - General Chief Complaint: Psychiatric Symptoms Stated Complaint: mental health Time Seen by Provider: 10/02/22 10:51 Source: patient, RN notes reviewed Mode of arrival: EMS Limitations: no limitations - History of Present Illness Initial Comments: This is a 57-year-old male who presents to the emergency department for lower back pain and depression. Patient states that he tripped and fell yesterday, hitting his lower back. He was evaluated here yesterday and had a computed tomography scan of the lumbar spine which was found to be normal. This pain was managed in the emergency department and he was discharged home. Patient called EMS because she continues to have pain and states that he "fell mentally ". He reports increasing depression related to his pain and not being able to do his normal daily activities. Denies any suicidal ideations or auditory/visual hallucinations. Also denies any loss of bowel/bladder control or saddle anesthesia. Denies any fevers, chills, sore throat, cough, dyspnea, chest pain, palpitations, abdominal pain, nausea, vomiting, diarrhea, or headaches. MD Complaint: back pain - Related Data Home Medications Medication Instructions Recorded Confirmed Multivitamins, Thera [Multivitamin 1 tab PO DAILY 10/07/21 10/02/22 (formulary)] Magnesium Oxide [Mag-Ox] 400 mg PO DAILY 04/25/22 10/02/22 Cyclobenzaprine [Flexeril] 10 mg PO TID PRN 09/11/22 10/02/22 Gabapentin 800 mg PO Q6H 09/11/22 10/02/22 HYDROcodone/APAP 7.5-325MG [[place] 1 tab PO Q6HR PRN 09/11/22 10/02/22 7.5-325] Melatonin 5 mg PO HS PRN 09/11/22 10/02/22 Naproxen [Naprosyn] 500 mg PO Q12H PRN 09/11/22 10/02/22 Pregabalin [Lyrica] 100 mg PO TID 09/11/22 10/02/22 Sennosides/Docusate Sodium [Senna 1 tab PO DAILY PRN 09/11/22 10/02/22 Plus 8.6-50 mg Softgel] Tirzepatide [Mounjaro] 5 mg SQ DIRECTED 09/11/22 10/02/22 Previous Rx's Medication Instructions Recorded Aspirin EC [Ecotrin Low Dose] 81 mg PO DAILY 30 Days tab 08/17/21 Calcium Carbonate [Tums] 500 mg PO QID PRN 30 Days 08/17/21 Ferrous Sulfate [Iron (65 MG 325 mg PO DAILY 30 Days tab 08/17/21 Elemental)] Mirtazapine [Remeron] 15 mg PO HS 30 Days tab 08/17/21 Pantoprazole [Protonix] 40 mg PO HS 30 Days tab 08/17/21 Pravastatin Sodium [Pravachol] 40 mg PO HS 30 Days tab 08/17/21 Vitamin B Complex 1 cap PO DAILY 30 Days cap 08/17/21 Ziprasidone [Geodon] 40 mg PO BID 30 Days cap 08/17/21 busPIRone HCL 15 mg PO BID 30 Days tab 08/17/21 glipiZIDE [Glucotrol] 20 mg PO BID 30 Days tab 08/17/21 metFORMIN HCL [Glucophage] 1,000 mg PO BID 30 Days #60 tab 08/17/21 Propranolol HCl 40 mg PO BID 30 Days #60 tablet 09/13/22 clonazePAM [KlonoPIN] 1 mg PO TID 3 Days #9 tab 09/13/22 chlordiazePOXIDE HCl [Librium] 25 mg PO TID 3 Days #9 capsule 10/03/22 Allergies Allergy/AdvReac Type Severity Reaction Status Date / Time thimerosal Allergy Severe Rash/Hives/throat Verified 10/04/22 02:38 swelling neomycin Allergy Rash/Hives Verified 10/04/22 02:38 Review of Systems ROS Statement: Those systems with pertinent positive or pertinent negative responses have been documented in the HPI. ROS Other: All systems not noted in ROS Statement are negative. Past Medical History Past Medical History: Diabetes Mellitus, GERD/Reflux, Hyperlipidemia, Hypertension, Liver Disease, Renal Disease, Sleep Apnea/CPAP/BIPAP Additional Past Medical History / Comment(s): Neuropathy, back pain, no CPAP use, Cirrhosis, "kidneys don't always work right." History of Any Multi-Drug Resistant Organisms: None Reported Past Surgical History: Heart Catheterization, Joint Replacement, Orthopedic Surgery Additional Past Surgical History / Comment(s): Bilateral cataracts removed, bilateral hip replacements, right heal surgery with screws/plates/pins placed, L2-L4 cage infusion, Past Anesthesia/Blood Transfusion Reactions: No Reported Reaction Past Psychological History: Anxiety, Bipolar, Depression, Schizoaffective Disorder Smoking Status: Current every day smoker, Former smoker, Vaper Past Alcohol Use History: None Reported Past Drug Use History: None Reported - Past Family History Father Family Medical History: Myocardial Infarction ([place]) Additional Family Medical History / Comment(s): [place] in mid 30's. Mother Family Medical History: Dementia family Additional Family Medical History / Comment(s): Anxiety. General Exam Limitations: no limitations General appearance: alert, in no apparent distress Head exam: Present: atraumatic, normocephalic, normal inspection Respiratory exam: Present: normal lung sounds bilaterally. Absent: respiratory distress, wheezes, rales, rhonchi, stridor Cardiovascular Exam: Present: regular rate, normal rhythm, normal heart sounds. Absent: systolic murmur, diastolic murmur, rubs, gallop, clicks Extremities exam: Present: tenderness (lumbar spine) Neurological exam: Present: alert, oriented X3, CN II-XII intact Psychiatric exam: Present: normal affect, normal mood Skin exam: Present: warm, dry, intact, normal color. Absent: rash Course Vital Signs 10/02/22 10/02/22 10:35 16:08 Temperature 100.7 F H 97.3 F L Pulse Rate 100 98 Respiratory 18 18 Rate Blood Pressure 144/107 171/123 O2 Sat by Pulse 98 99 Oximetry Medical Decision Making - Medical Decision Making This is a 57-year-old who presents to the emergency department for lower back pain and depression. Was pt. sent in by a medical professional or institution? @ -No Did you speak to anyone other than the patient for history? @ -No Did you review nursing and triage notes? @ -Yes, and I agree, it is accurate with regards to the patient's symptoms. Were old charts reviewed? @ -Yes, CT scan of the lumbar spine from yesterday demonstrating no acute findings. Differential Diagnosis? @ -Differential Back Pain: Strain, zoster, cauda equina syndrome, epidural abscess, vertebral osteomyelitis, discitis, fracture, subluxation, disc herniation, DJD, spinal stenosis, dissection, AAA, pancreatitis, peptic ulcer disease, pyelonephritis, kidney stone, this is not meant to be an all-inclusive list. -Differential Mental Health Depression, anxiety, bipolar, psychosis, schizophrenia, borderline personality, situational depression, adjustment disorder, behavioral disorder, brain tumor, malingering, substance abuse, encephalopathy, medication reaction, dementia, hypothyroidism, degenerative neurologic disorder, lupus.... This is not meant to be all-inclusive list What testing was considered but not performed? (CT, X-rays, U/S, labs)? Why? @ -None What meds were considered but not given? Why? @ -None Did you discuss the management of the patient with other professionals? @ -Yes, EPS, who cleared the patient for discharge home from a mental health perspective. Did you reconcile home meds? @ -No Was smoking cessation discussed for >3mins.? @ -No Was critical care preformed (if so, how long)? @ -No Were there social determinants of health that impacted care today? How? (Homelessness, low income, unemployed, alcoholism, drug addiction, transportation, low edu. Level, literacy, decrease access to med. care, retirement, rehab)? @ -No Was there de-escalation of care discussed even if they declined? (Discuss DNR or withdrawal of care, Hospice)? @ -No What co-morbidities impacted this encounter? (DM, HTN, Smoking, COPD, CAD, Cancer, CVA, Hep., AIDS, mental health diagnosis, sleep apnea, morbid obesity)? @ -Depression, chronic back pain Was patient admitted / discharged? @ -Discharged. Computed tomography scan of the lumbar spine from yesterday was reviewed revealing no acute findings. Pain was controlled in the emergency department with [place], Toradol, and a lidocaine patch. EPS valuated the patient who states that he is clear for discharge home from a mental health perspective. I'm in agreement with this, as the patient has no active suicidal or homicidal ideations. Advised ibuprofen and Tylenol as needed for any additional pain relief. Undiagnosed new problem with uncertain prognosis? @ -None Drug Therapy requiring intensive monitoring for toxicity (Heparin, Nitro, Insulin, Cardizem)? @ -None Were any procedures done? @ -None Diagnosis/symptom? @ -Back pain, fall Acute, or Chronic, or Acute on Chronic? @ -Acute Uncomplicated (without systemic symptoms) or Complicated (systemic symptoms)? @ -Uncomplicated Side effects of treatment? @ -None Exacerbation, Progression, or Severe Exacerbation] @ -Not applicable Poses a threat to life or bodily function? @ -No Diagnosis/symptom? @ -Depression Acute, or Chronic, or Acute on Chronic? @ -Acute on chronic Uncomplicated (without systemic symptoms) or Complicated (systemic symptoms)? @ -Uncomplicated Side effects of treatment? @ -None Exacerbation, Progression, or Severe Exacerbation] @ -Exacerbation Poses a threat to life or bodily function? @ -Yes, in general this does impact his ability to function. Return precautions reviewed in depth, the patient is instructed to return to the emergency department with any new, worsening, or concerning symptoms. Patient v erbalized understanding. This case was discussed in detail with the attending ED physician, Dr. Chavez. Presentation, findings, and treatment plan discussed in detail as well. - Lab Data Lab Results 10/02/22 Range/Units 10:47 Influenza Type A (PCR) Not Detected (Not Detectd) Influenza Type B (PCR) Not Detected (Not Detectd) RSV (PCR) Not Detected (Not Detectd) SARS-CoV-2 (PCR) Not Detected (Not Detectd) Disposition Clinical Impression: Lower back pain, Depression Disposition: HOME SELF-CARE Instructions (If sedation given, give patient instructions): Chronic Back Pain (DC), Back Pain (ED) Additional Instructions: Return to the emergency department with any new, worsening, or concerning symptoms. Alternate with ibuprofen and Tylenol as needed for pain relief. Follow up with your primary care provider in 1-2 days. Is patient prescribed a controlled substance at d/c from ED?: No Referrals: Marlen Mobley MD [Primary Care Provider] - 1-2 days
[2022-10-02 16:14] VITALS: BP 171/123; PULSE 98; TEMP 97.3
== END 2022-10-02 16:14 | disposition home or self-care (01) ==
LOC: EC 10:32
DX: F32.A Depression, unspecified (principal); M54.50 Low back pain, unspecified; E11.40 Type 2 diabetes mellitus with diabetic neuropathy, unspecified; E11.36 Type 2 diabetes mellitus with diabetic cataract; I10 Essential (primary) hypertension; F17.290 Nicotine dependence, other tobacco product, uncomplicated; Z20.822 Contact with and (suspected) exposure to COVID-19; Z79.899 Other long term (current) drug therapy; W01.0XXA Fall on same level from slipping, tripping and stumbling without subsequent striking against object, initial encounter
CPT/HCPCS: 82075; 87636; 99285; 96372; J1885

== ENCOUNTER 2022-10-03 02:51 | Emergency (ER) | payer MEDICARE, OTHER ==
[2022-10-03 02:58] VITALS: BP 141/103; PULSE 104; RESP 18; TEMP 97.7
[2022-10-03] MEDS ORDERED: SODIUM CHLORIDE 0.9% 500 ML 500 ML IV STA (03:07)
[2022-10-03] MEDS ORDERED: LORazepam 2 MG/ML INJ IV STA (03:07)
--- NOTE | 2022-10-03 03:10 | ED ---
Alcohol HPI - General Chief Complaint: Alcohol Stated Complaint: Alcohol Withdrawal Time Seen by Provider: 10/03/22 03:01 Source: patient Mode of arrival: ambulatory Limitations: no limitations - History of Present Illness Initial Comments: this patient is a 57-year-old man who presents to have evaluation for alcohol withdrawal. The patient states that he usually drinks about a fifth of alcohol per day. The patient states that his last drink was in the afternoon approximately 1 PM. Now is feeling tremulous, anxious and having a little bit of nausea. MD Complaint: alcohol withdrawal Time Since Last Drink: 14 -: hour(s) Recent Trauma: No Associated Symptoms: nausea, tremors Treatments Prior to Arrival: none Chronic Alcohol Use: Yes - Related Data Home Medications Medication Instructions Recorded Confirmed Multivitamins, Thera [Multivitamin 1 tab PO DAILY 10/07/21 10/11/22 (formulary)] Magnesium Oxide [Mag-Ox] 400 mg PO DAILY 04/25/22 10/11/22 Cyclobenzaprine [Flexeril] 10 mg PO TID PRN 09/11/22 10/11/22 Gabapentin 800 mg PO Q6H 09/11/22 10/11/22 HYDROcodone/APAP 7.5-325MG [[place] 1 tab PO Q6HR PRN 09/11/22 10/11/22 7.5-325] Melatonin 5 mg PO HS PRN 09/11/22 10/11/22 Naproxen [Naprosyn] 500 mg PO Q12H PRN 09/11/22 10/11/22 Pregabalin [Lyrica] 100 mg PO TID 09/11/22 10/11/22 Sennosides/Docusate Sodium [Senna 1 tab PO DAILY PRN 09/11/22 10/11/22 Plus 8.6-50 mg Softgel] Tirzepatide [Mounjaro] 5 mg SQ DIRECTED 09/11/22 10/11/22 Previous Rx's Medication Instructions Recorded Aspirin EC [Ecotrin Low Dose] 81 mg PO DAILY 30 Days tab 08/17/21 Calcium Carbonate [Tums] 500 mg PO QID PRN 30 Days 08/17/21 Ferrous Sulfate [Iron (65 MG 325 mg PO DAILY 30 Days tab 08/17/21 Elemental)] Mirtazapine [Remeron] 15 mg PO HS 30 Days tab 08/17/21 Pantoprazole [Protonix] 40 mg PO HS 30 Days tab 08/17/21 Pravastatin Sodium [Pravachol] 40 mg PO HS 30 Days tab 08/17/21 Vitamin B Complex 1 cap PO DAILY 30 Days cap 08/17/21 Ziprasidone [Geodon] 40 mg PO BID 30 Days cap 08/17/21 busPIRone HCL 15 mg PO BID 30 Days tab 08/17/21 glipiZIDE [Glucotrol] 20 mg PO BID 30 Days tab 08/17/21 metFORMIN HCL [Glucophage] 1,000 mg PO BID 30 Days #60 tab 08/17/21 Propranolol HCl 40 mg PO BID 30 Days #60 tablet 09/13/22 clonazePAM [KlonoPIN] 1 mg PO TID 3 Days #9 tab 09/13/22 chlordiazePOXIDE HCl [Librium] 25 mg PO TID 3 Days #9 capsule 10/03/22 Allergies Allergy/AdvReac Type Severity Reaction Status Date / Time thimerosal Allergy Severe Rash/Hives/throat Verified 10/11/22 08:49 swelling neomycin Allergy Rash/Hives Verified 10/11/22 08:49 Review of Systems ROS Statement: Those systems with pertinent positive or pertinent negative responses have been documented in the HPI. ROS Other: All systems not noted in ROS Statement are negative. Constitutional: Denies: fever, chills, weakness Eyes: Denies: vision change Respiratory: Denies: cough, dyspnea Cardiovascular: Reports: palpitations. Denies: chest pain, edema, syncope Gastrointestinal: Reports: nausea. Denies: abdominal pain, vomiting, diarrhea, melena, hematochezia Genitourinary: Denies: dysuria, hematuria Skin: Denies: rash Neurological: Denies: headache, weakness Psychiatric: Reports: anxiety Past Medical History Past Medical History: Diabetes Mellitus, GERD/Reflux, Hyperlipidemia, Hypertension, Liver Disease, Renal Disease, Sleep Apnea/CPAP/BIPAP Additional Past Medical History / Comment(s): Neuropathy, back pain, no CPAP use, Cirrhosis, "kidneys don't always work right." History of Any Multi-Drug Resistant Organisms: None Reported Past Surgical History: Heart Catheterization, Joint Replacement, Orthopedic Surg meliton Additional Past Surgical History / Comment(s): Bilateral cataracts removed, bilateral hip replacements, right heal surgery with screws/plates/pins placed, L2-L4 cage infusion, Past Anesthesia/Blood Transfusion Reactions: No Reported Reaction Past Psychological History: Anxiety, Bipolar, Depression, PTSD, Schizoaffective Disorder Smoking Status: Former smoker, Vaper Past Alcohol Use History: Abuse, Daily, Heavy Past Drug Use History: None Reported - Past Family History Father Family Medical History: Myocardial Infarction ([place]) Additional Family Medical History / Comment(s): [place] in mid 30's. Mother Family Medical History: Dementia family Additional Family Medical History / Comment(s): Anxiety. General Exam Limitations: no limitations General appearance: alert, in no apparent distress Head exam: Present: atraumatic, normocephalic Eye exam: Present: normal appearance. Absent: scleral icterus, conjunctival injection Respiratory exam: Present: normal lung sounds bilaterally. Absent: respiratory distress, wheezes, rales, rhonchi, stridor Cardiovascular Exam: Present: regular rate, normal rhythm, normal heart sounds. Absent: systolic murmur, diastolic murmur, rubs, gallop GI/Abdominal exam: Present: soft. Absent: distended, tenderness, guarding, rebound, rigid, mass Extremities exam: Present: normal inspection, normal capillary refill. Absent: pedal edema, calf tenderness Back exam: Present: normal inspection. Absent: CVA tenderness (R), CVA tenderness (L) Neurological exam: Present: alert Psychiatric exam: Present: anxious. Absent: suicidal ideation Skin exam: Present: warm, dry, intact, normal color. Absent: rash Course Vital Signs 10/03/22 02:52 Temperature 97.7 F Pulse Rate 104 H Respiratory 18 Rate Blood Pressure 141/103 O2 Sat by Pulse 98 Oximetry Medical Decision Making - Medical Decision Making Patient is 54-year-old man here complaining of symptoms related to alcohol withdrawal, mainly anxiety and tremulousness. The patient did have good response to medication here and wants to go home. We discussed appropriate further care and follow-up, we discussed also sensation, we discussed return parameters Was pt. sent in by a medical professional or institution (, PA, PRINTER REPAIR TECHNICIAN, urgent care, hospital, or longterm...) When possible be specific @ -[No] Did you speak to anyone other than the patient for history (EMS, parent, family, police, friend...)? What history was obtained from this source @ -[No] Did you review nursing and triage notes (agree or disagree)? Why? @ -[I reviewed and agree with nursing and triage notes] Were old charts reviewed (outside hosp., previous admission, EMS record, old EKG, old radiological studies, urgent care reports/EKG's, longterm records)? Report findings @ -[No old charts were reviewed] Differential Diagnosis (chest pain, altered mental status, abdominal pain women, abdominal pain men, vaginal bleeding, weakness, fever, dyspnea, syncope, headache, dizziness, GI bleed, back pain, seizure, CVA, palpatations, mental health, musculoskeletal)? @ -[Differential diagnosis includes acute intoxication, alcohol withdrawal, anxiety amongst other etiologies EKG interpreted by me (3pts min.). @ -[ X-rays interpreted by me (1pt min.). @ -[None done] CT interpreted by me (1pt min.). @ -[None done] U/S interpreted by me (1pt. min.). @ -[None done] What testing was considered but not performed or refused? (CT, X-rays, U/S, labs)? Why? @ -[None] What meds were considered but not given or refused? Why? @ -[None] Did you discuss the management of the patient with other professionals (professionals i.e. , PA, PRINTER REPAIR TECHNICIAN, lab, RT, psych nurse, social media manager, electrical intern, teacher, chairman and chief executive officer, patient case coordinator)? Give summary @ -[No] Was smoking cessation discussed for >3mins.? @ -[No] Was critical care preformed (if so, how long)? @ -[No] Were there social determinants of health that impacted care today? How? (Homelessness, low income, unemployed, alcoholism, drug addiction, transportation, low edu. Level, literacy, decrease access to med. care, longterm, rehab)? @ -[No] Was there de-escalation of care discussed even if they declined (Discuss DNR or withdrawal of care, Hospice)? DNR status @ -[No] What co-morbidities impacted this encounter? (DM, HTN, Smoking, COPD, CAD, Cancer, CVA, ARF, Chemo, Hep., AIDS, mental health diagnosis, sleep apnea, morbid obesity)? @ -[None] Was patient admitted / discharged? Hospital course, mention meds given and route, prescriptions, significant lab abnormalities, going to OR and other pertinent info. @ -[Discharged Undiagnosed new problem with uncertain prognosis? @ -[No] Drug Therapy requiring intensive monitoring for toxicity (Heparin, Nitro, Insulin, Cardizem)? @ -[No] Were any procedures done? @ -[No] Diagnosis/symptom? @ -[Acute alcohol withdrawal Acute, or Chronic, or Acute on Chronic? @ -[default] Uncomplicated (without systemic symptoms) or Complicated (systemic symptoms)? @ -[Uncomplicated Side effects of treatment? @ -[No] Exacerbation, Progression, or Severe Exacerbation? @ -[No] Poses a threat to life or bodily function? How? (Chest pain, [place], [place], pneumonia, PE, COPD, DKA, ARF, appy, cholecystitis, CVA, Diverticulitis, Homicidal, Suicidal, threat to staff... and all critical care pts) @ -[No] - Lab Data Result diagrams: 10/03/22 03:44 10/03/22 03:44 Lab Results 10/03/22 10/03/22 10/03/22 Range/Units 03:44 03:44 03:44 WBC 8.1 (3.8-10.6) k/uL RBC 3.65 L (4.30-5.90) m/uL Hgb 11.0 L (13.0-17.5) gm/dL Hct 33.9 L (39.0-53.0) % MCV 93.0 (80.0-100.0) fL MCH 30.1 (25.0-35.0) pg MCHC 32.4 (31.0-37.0) g/dL RDW 14.6 (11.5-15.5) % Plt Count 283 (150-450) k/uL MPV 8.0 Neutrophils % 68 % Lymphocytes % 22 % Monocytes % 4 % Eosinophils % 3 % Basophils % 1 % Neutrophils # 5.5 (1.3-7.7) k/uL Lymphocytes # 1.7 (1.0-4.8) k/uL Monocytes # 0.3 (0-1.0) k/uL Eosinophils # 0.2 (0-0.7) k/uL Basophils # 0.1 (0-0.2) k/uL Sodium 140 (137-145) mmol/L Potassium 4.1 (3.5-5.1) mmol/L Chloride 105 (98-107) mmol/L Carbon Dioxide 20 L (22-30) mmol/L Anion Gap 15 mmol/L BUN 16 (9-20) mg/dL Creatinine 0.90 (0.66-1.25) mg/dL Est GFR (CKD-EPI)AfAm >90 (>60 ml/min/1.73 sqM) Est GFR (CKD-EPI)NonAf >90 (>60 ml/min/1.73 sqM) Glucose 191 H (74-99) mg/dL Calcium 9.3 (8.4-10.2) mg/dL Total Bilirubin 0.2 (0.2-1.3) mg/dL AST 26 (17-59) U/L ALT 24 (4-49) U/L Alkaline Phosphatase 94 (38-126) U/L Troponin I <0.012 (0.000-0.034) ng/mL Total Protein 6.9 (6.3-8.2) g/dL Albumin 3.9 (3.5-5.0) g/dL Serum Alcohol <10 mg/dL Disposition Clinical Impression: Alcohol withdrawal Disposition: HOME SELF-CARE Condition: Good Instructions (If sedation given, give patient instructions): Alcohol Withdrawal (ED) Prescriptions: chlordiazePOXIDE HCl [Librium] 25 mg PO TID 3 Days #9 capsule Is patient prescribed a controlled substance at d/c from ED?: No Referrals: Marlen Mobley MD [Primary Care Provider] - 1-2 days
[2022-10-03] MEDS ORDERED: chlordiazePOXIDE 25 MG CAP PO STA (03:42)
[2022-10-03 04:00] LABS: Basophils # (A) 0.1 k/uL (0-0.2); Basophils % (A) 1 %; Eosinophils # (A) 0.2 k/uL (0-0.7); Eosinophils % (A) 3 %; HCT 33.9 % (39.0-53.0); Lymphocytes # (A) 1.7 k/uL (1.0-4.8); Lymphocytes % (A) 22 %; MCH 30.1 pg (25.0-35.0); MCHC 32.4 g/dL (31.0-37.0); Monocytes # (A) 0.3 k/uL (0-1.0); Monocytes % (A) 4 %; Neutrophils # (A) 5.5 k/uL (1.3-7.7); Neutrophils % (A) 68 %; Platelet Count 283 k/uL (150-450); RBC 3.65 m/uL (4.30-5.90); RDW 14.6 % (11.5-15.5); WBC 8.1 k/uL (3.8-10.6)
[2022-10-03 04:04] LABS: ALT 24 U/L (4-49); AST 26 U/L (17-59); African American GFR (CKD) >90 (>60 ml/min/1.73 sqM); Albumin 3.9 g/dL (3.5-5.0); Alcohol <10 mg/dL; Alkaline Phosphatase 94 U/L (38-126); Anion Gap 15 mmol/L; Blood Urea Nitrogen 16 mg/dL (9-20); Calcium 9.3 mg/dL (8.4-10.2); Carbon Dioxide 20 mmol/L (22-30); Chloride 105 mmol/L (98-107); Glucose 191 mg/dL (74-99); Non-African American GFR(CKD) >90 (>60 ml/min/1.73 sqM); Potassium 4.1 mmol/L (3.5-5.1); Sodium 140 mmol/L (137-145); Total Bilirubin 0.2 mg/dL (0.2-1.3); Total Protein 6.9 g/dL (6.3-8.2)
== END 2022-10-03 05:58 | disposition home or self-care (01) ==
LOC: EC 02:51
DX: F10.939 Alcohol use, unspecified with withdrawal, unspecified (principal); E11.9 Type 2 diabetes mellitus without complications; I10 Essential (primary) hypertension; G47.30 Sleep apnea, unspecified; F41.9 Anxiety disorder, unspecified; F31.9 Bipolar disorder, unspecified; F17.290 Nicotine dependence, other tobacco product, uncomplicated; Z79.899 Other long term (current) drug therapy; Z88.7 Allergy status to serum and vaccine; Z88.1 Allergy status to other antibiotic agents
CPT/HCPCS: 36415; 80053; 84484; 85025; 99284; 96374; 96361 ×2; G0480; J2060; 80320

== ENCOUNTER 2022-10-03 14:10 | Emergency (ER) | payer MEDICARE, OTHER ==
--- NOTE | 2022-10-03 15:15 | ED ---
General Adult HPI - General Chief complaint: Alcohol Stated complaint: Withdraw Time Seen by Provider: 10/03/22 14:15 Source: patient, RN notes reviewed, old records reviewed Mode of arrival: ambulatory Limitations: no limitations - History of Present Illness Initial comments: This is a 57-year-old male who presents emergency department stating that he drinks alcohol needs rehabilitation but is not sure if he wants to go per patient states he is afraid he might withdraw. I told him that if he goes to rehabilitation they will give medications so that he doesn't withdraw. Patient states he drank a few hours ago and has been to the ER multiple times in the last few days. Patient denies any injuries patient denies any falls. Patient states he is not really sure what he wants. Patient denies any chest pain difficult breathing shortest breath per patient denies any fever chills or cough per patient denies abdominal pain patient denies nausea vomiting diarrhea. Patient states he shaking like he is not shaking currently. - Related Data Home Medications Medication Instructions Recorded Confirmed Multivitamins, Thera [Multivitamin 1 tab PO DAILY 10/07/21 10/02/22 (formulary)] Magnesium Oxide [Mag-Ox] 400 mg PO DAILY 04/25/22 10/02/22 Cyclobenzaprine [Flexeril] 10 mg PO TID PRN 09/11/22 10/02/22 Gabapentin 800 mg PO Q6H 09/11/22 10/02/22 HYDROcodone/APAP 7.5-325MG [[place] 1 tab PO Q6HR PRN 09/11/22 10/02/22 7.5-325] Melatonin 5 mg PO HS PRN 09/11/22 10/02/22 Naproxen [Naprosyn] 500 mg PO Q12H PRN 09/11/22 10/02/22 Pregabalin [Lyrica] 100 mg PO TID 09/11/22 10/02/22 Sennosides/Docusate Sodium [[place] 1 tab PO DAILY PRN 09/11/22 10/02/22 Plus 8.6-50 mg Softgel] Tirzepatide [Mounjaro] 5 mg SQ DIRECTED 09/11/22 10/02/22 Previous Rx's Medication Instructions Recorded Aspirin EC [Ecotrin Low Dose] 81 mg PO DAILY 30 Days tab 08/17/21 Calcium Carbonate [Tums] 500 mg PO QID PRN 30 Days 08/17/21 Ferrous Sulfate [Iron (65 MG 325 mg PO DAILY 30 Days tab 08/17/21 Elemental)] Mirtazapine [Remeron] 15 mg PO HS 30 Days tab 08/17/21 Pantoprazole [Protonix] 40 mg PO HS 30 Days tab 08/17/21 Pravastatin Sodium [Pravachol] 40 mg PO HS 30 Days tab 08/17/21 Vitamin B Complex 1 cap PO DAILY 30 Days cap 08/17/21 Ziprasidone [Geodon] 40 mg PO BID 30 Days cap 08/17/21 busPIRone HCL 15 mg PO BID 30 Days tab 08/17/21 glipiZIDE [Glucotrol] 20 mg PO BID 30 Days tab 08/17/21 metFORMIN HCL [Glucophage] 1,000 mg PO BID 30 Days #60 tab 08/17/21 Propranolol HCl 40 mg PO BID 30 Days #60 tablet 09/13/22 clonazePAM [KlonoPIN] 1 mg PO TID 3 Days #9 tab 09/13/22 chlordiazePOXIDE HCl [Librium] 25 mg PO TID 3 Days #9 capsule 10/03/22 Allergies Allergy/AdvReac Type Severity Reaction Status Date / Time thimerosal Allergy Severe Rash/Hives/throat Verified 10/03/22 14:15 swelling neomycin Allergy Rash/Hives Verified 10/03/22 14:15 Review of Systems ROS Statement: Those systems with pertinent positive or pertinent negative responses have been documented in the HPI. ROS Other: All systems not noted in ROS Statement are negative. Past Medical History Past Medical History: Diabetes Mellitus, GERD/Reflux, Hyperlipidemia, Hypertension, Liver Disease, Renal Disease, Sleep Apnea/CPAP/BIPAP Additional Past Medical History / Comment(s): Neuropathy, back pain, no CPAP use, Cirrhosis, "kidneys don't always work right." History of Any Multi-Drug Resistant Organisms: None Reported Past Surgical History: Heart Catheterization, Joint Replacement, Orthopedic Surgery Additional Past Surgical History / Comment(s): Bilateral cataracts removed, bilateral hip replacements, right heal surgery with screws/plates/pins placed, L2-L4 cage infusion, Past Anesthesia/Blood Transfusion Reactions: No Reported Reaction Past Psychological History: Anxiety, Bipolar, Depression, PTSD, Schizoaffective Disorder Smoking Status: Former smoker, Vaper Past Alcohol Use History: Abuse, Daily, Heavy Past Drug Use History: None Reported - Past Family History Father Family Medical History: Myocardial Infarction ([place]) Additional Family Medical History / Comment(s): [place] in mid 30's. Mother Family Medical History: Dementia family Additional Family Medical History / Comment(s): Anxiety. General Exam - General Exam Comments Initial Comments: GENERAL: Patient is well-developed and well-nourished. Patient is nontoxic and well- hydrated and is in no acute distress. Patient was not asked intoxicated patient no shaking patient was not vomiting ENT: Neck is soft and supple. No significant lymphadenopathy is noted. Oropharynx is clear. Moist mucous membranes. Neck has full range of motion without eliciting any pain. EYES: The sclera were anicteric and conjunctiva were pink and moist. Extraocular movements were intact and pupils were equal round and reactive to light. Eyelids were unremarkable. PULMONARY: Unlabored respirations. Good breath sounds bilaterally. No audible rales rhonchi or wheezing was noted. CARDIOVASCULAR: There is a regular rate and rhythm without any murmurs gallops or rubs. ABDOMEN: Soft and nontender with normal bowel sounds. SKIN: Skin is clear with no lesions or rashes and otherwise unremarkable. NEUROLOGIC: Patient is alert and oriented x3. Cranial nerves II through XII are grossly intact. Motor and sensory are also intact. Normal speech, volume and content. Symmetrical smile. MUSCULOSKELETAL: Normal extremities with adequate strength and full range of motion. No lower extremity swelling or edema. No calf tenderness. LYMPHATICS: No significant lymphadenopathy is noted PSYCHIATRIC: Normal psychiatric evaluation. Limitations: no limitations Course Vital Signs 10/03/22 14:12 Temperature 97.3 F L Pulse Rate 95 Respiratory 16 Rate Blood Pressure 162/107 O2 Sat by Pulse 99 Oximetry Medical Decision Making - Medical Decision Making Was pt. sent in by a medical professional or institution (, PA, HYPNOTHERAPIST, urgent care, hospital, or halfway...) When possible be specific @ -No Did you speak to anyone other than the patient for history (EMS, parent, family, police, friend...)? What history was obtained from this source @ -No Did you review nursing and triage notes (agree or disagree)? Why? @ -I reviewed and agree with nursing and triage notes Were old charts reviewed (outside hosp., previous admission, EMS record, old EKG, old radiological studies, urgent care reports/EKG's, halfway records)? Report findings @ -No old charts were reviewed Differential Diagnosis (chest pain, altered mental status, abdominal pain women, abdominal pain men, vaginal bleeding, weakness, fever, dyspnea, syncope, headache, dizziness, GI bleed, back pain, seizure, CVA, palpatations, mental health, musculoskeletal)? @ -Alcohol abuse EKG interpreted by me (3pts min.). @ -As above X-rays interpreted by me (1pt min.). @ -None done CT interpreted by me (1pt min.). @ -None done U/S interpreted by me (1pt. min.). @ -None done What testing was considered but not performed or refused? (CT, X-rays, U/S, labs)? Why? @ -None What meds were considered but not given or refused? Why? @ -None Did you discuss the management of the patient with other professionals (professionals i.e. , PA, HYPNOTHERAPIST, lab, RT, psych nurse, social media marketer, residential life director, teacher, field crop technical officer, case management coordinator)? Give summary @ -No Was smoking cessation discussed for >3mins.? @ -No Was critical care preformed (if so, how long)? @ -No Were there social determinants of health that impacted care today? How? (Homelessness, low income, unemployed, alcoholism, drug addiction, transportation, low edu. Level, literacy, decrease access to med. care, halfway, rehab)? @ -No Was there de-escalation of care discussed even if they declined (Discuss DNR or withdrawal of care, Hospice)? DNR status @ -No What co-morbidities impacted this encounter? (DM, HTN, Smoking, COPD, CAD, Cancer, CVA, ARF, Chemo, Hep., AIDS, mental health diagnosis, sleep apnea, morbid obesity)? @ -None Was patient admitted / discharged? Hospital course, mention meds given and route, prescriptions, significant lab abnormalities, going to OR and other pertinent info. @ -Patient was not acting test was able to ambulate without problem was not shaking was not nauseated or vomiting. Patient did state he would consider going to rehab Undiagnosed new problem with uncertain prognosis? @ -No Drug Therapy requiring intensive monitoring for toxicity (Heparin, Nitro, Insulin, Cardizem)? @ -No Were any procedures done? @ -No Diagnosis/symptom? @ -Alcohol abuse Acute, or Chronic, or Acute on Chronic? @ -Acute Uncomplicated (without systemic symptoms) or Complicated (systemic symptoms)? @ -default Side effects of treatment? @ -No Exacerbation, Progression, or Severe Exacerbation? @ -No Poses a threat to life or bodily function? How? (Chest pain, [place], [place], pneumonia, PE, COPD, DKA, ARF, appy, cholecystitis, CVA, Diverticulitis, Homicidal, Suicidal, threat to staff... and all critical care pts) @ -No Disposition Clinical Impression: Alcohol abuse Disposition: HOME SELF-CARE Instructions (If sedation given, give patient instructions): Abuse of Alcohol (ED) Additional Instructions: Patient is to go to rehab for alcohol abuse Is patient prescribed a controlled substance at d/c from ED?: No Referrals: Marlen Mobley MD [Primary Care Provider] - 1-2 days Time of Disposition: 15:13
[2022-10-03 15:51] VITALS: BP 160/96; PULSE 92; RESP 18; TEMP 97.8
== END 2022-10-03 15:51 | disposition home or self-care (01) ==
LOC: EC 14:10
DX: F10.139 Alcohol abuse with withdrawal, unspecified (principal); E11.40 Type 2 diabetes mellitus with diabetic neuropathy, unspecified; E78.5 Hyperlipidemia, unspecified; I10 Essential (primary) hypertension; F41.9 Anxiety disorder, unspecified; F31.9 Bipolar disorder, unspecified; F17.290 Nicotine dependence, other tobacco product, uncomplicated; Z88.8 Allergy status to other drugs, medicaments and biological substances; Z79.899 Other long term (current) drug therapy
CPT/HCPCS: 99284

== ENCOUNTER 2022-10-04 02:29 | Emergency (ER) | payer MEDICARE, OTHER ==
[2022-10-04] MEDS ORDERED: LORazepam 2 MG/ML INJ IV STA (02:54)
[2022-10-04] MEDS ORDERED: SODIUM CHLORIDE 0.9% 2,000 ML IV STA (02:54)
--- NOTE | 2022-10-04 02:56 | ED ---
Alcohol HPI - General Chief Complaint: Alcohol Stated Complaint: ALCOHOL WITHDRAWL Time Seen by Provider: 10/04/22 02:41 Source: patient, RN notes reviewed Mode of arrival: ambulatory Limitations: no limitations - History of Present Illness Initial Comments: 57-year-old male presents emergency Department with chief complaint of alcohol withdrawal. Patient had recent ER visits for similar complaints and hospitalizations. Patient states his last drink was this afternoon. He's been complaining of being shaky, nausea vomiting. Patient was given prescription for Librium other day but states he did not fill the prescription. He denies any other illicit drug use. Denies localized abdominal pain. No chest pain or shortness breath - Related Data Home Medications Medication Instructions Recorded Confirmed Multivitamins, Thera [Multivitamin 1 tab PO DAILY 10/07/21 10/02/22 (formulary)] Magnesium Oxide [Mag-Ox] 400 mg PO DAILY 04/25/22 10/02/22 Cyclobenzaprine [Flexeril] 10 mg PO TID PRN 09/11/22 10/02/22 Gabapentin 800 mg PO Q6H 09/11/22 10/02/22 HYDROcodone/APAP 7.5-325MG [[place] 1 tab PO Q6HR PRN 09/11/22 10/02/22 7.5-325] Melatonin 5 mg PO HS PRN 09/11/22 10/02/22 Naproxen [Naprosyn] 500 mg PO Q12H PRN 09/11/22 10/02/22 Pregabalin [Lyrica] 100 mg PO TID 09/11/22 10/02/22 Sennosides/Docusate Sodium [Senna 1 tab PO DAILY PRN 09/11/22 10/02/22 Plus 8.6-50 mg Softgel] Tirzepatide [Mounjaro] 5 mg SQ DIRECTED 09/11/22 10/02/22 Previous Rx's Medication Instructions Recorded Aspirin EC [Ecotrin Low Dose] 81 mg PO DAILY 30 Days tab 08/17/21 Calcium Carbonate [Tums] 500 mg PO QID PRN 30 Days 08/17/21 Ferrous Sulfate [Iron (65 MG 325 mg PO DAILY 30 Days tab 08/17/21 Elemental)] Mirtazapine [Remeron] 15 mg PO HS 30 Days tab 08/17/21 Pantoprazole [Protonix] 40 mg PO HS 30 Days tab 08/17/21 Pravastatin Sodium [Pravachol] 40 mg PO HS 30 Days tab 08/17/21 Vitamin B Complex 1 cap PO DAILY 30 Days cap 08/17/21 Ziprasidone [Geodon] 40 mg PO BID 30 Days cap 08/17/21 busPIRone HCL 15 mg PO BID 30 Days tab 08/17/21 glipiZIDE [Glucotrol] 20 mg PO BID 30 Days tab 08/17/21 metFORMIN HCL [Glucophage] 1,000 mg PO BID 30 Days #60 tab 08/17/21 Propranolol HCl 40 mg PO BID 30 Days #60 tablet 09/13/22 clonazePAM [KlonoPIN] 1 mg PO TID 3 Days #9 tab 09/13/22 chlordiazePOXIDE HCl [Librium] 25 mg PO TID 3 Days #9 capsule 10/03/22 Allergies Allergy/AdvReac Type Severity Reaction Status Date / Time thimerosal Allergy Severe Rash/Hives/throat Verified 10/04/22 02:38 swelling neomycin Allergy Rash/Hives Verified 10/04/22 02:38 Review of Systems ROS Statement: Those systems with pertinent positive or pertinent negative responses have been documented in the HPI. ROS Other: All systems not noted in ROS Statement are negative. Past Medical History Past Medical History: Diabetes Mellitus, GERD/Reflux, Hyperlipidemia, Hypertension, Liver Disease, Renal Disease, Sleep Apnea/CPAP/BIPAP Additional Past Medical History / Comment(s): Neuropathy, back pain, no CPAP use, Cirrhosis, "kidneys don't always work right." History of Any Multi-Drug Resistant Organisms: None Reported Past Surgical History: Heart Catheterization, Joint Replacement, Orthopedic Surgery Additional Past Surgical History / Comment(s): Bilateral cataracts removed, bilateral hip replacements, right heal surgery with screws/plates/pins placed, L2-L4 cage infusion, Past Anesthesia/Blood Transfusion Reactions: No Reported Reaction Past Psychological History: Anxiety, Bipolar, Depression, PTSD, Schizoaffective Disorder Smoking Status: Former smoker, Vaper Past Alcohol Use History: Abuse, Daily, Heavy Past Drug Use History: None Reported - Past Family History Father Family Medical History: Myocardial Infarction (DC) Additional Family Medical History / Comment(s): DC in mid 30's. Mother Family Medical History: Dementia family Additional Family Medical History / Comment(s): Anxiety. General Exam Limitations: no limitations General appearance: alert, in no apparent distress Head exam: Present: atraumatic, normocephalic, normal inspection Neck exam: Present: normal inspection. Absent: tenderness, meningismus, lymphadenopathy Respiratory exam: Present: normal lung sounds bilaterally. Absent: respiratory distress, wheezes, rales, rhonchi, stridor Cardiovascular Exam: Present: normal rhythm, tachycardia, normal heart sounds. Absent: systolic murmur, diastolic murmur, rubs, gallop, clicks GI/Abdominal exam: Present: soft, normal bowel sounds. Absent: distended, tenderness, guarding, rebound, rigid Neurological exam: Present: alert, oriented X3 Course Vital Signs 10/04/22 10/04/22 10/04/22 02:35 02:53 02:55 Temperature 97.7 F Pulse Rate 116 H 94 Respiratory 22 Rate Blood Pressure 199/122 160/93 O2 Sat by Pulse 97 Oximetry Medical Decision Making - Medical Decision Making Was pt. sent in by a medical professional or institution (, PA, INSPECTOR PACKER, urgent care, hospital, or [facility]...) When possible be specific @ -No Did you speak to anyone other than the patient for history (EMS, parent, family, police, friend...)? What history was obtained from this source @ -No Did you review nursing and triage notes (agree or disagree)? Why? @ -I reviewed and agree with nursing and triage notes Were old charts reviewed (outside hosp., previous admission, EMS record, old EKG, old radiological studies, urgent care reports/EKG's, [facility] records)? Report findings @ -Reviewed recent visits including laboratory studies Differential Diagnosis (chest pain, altered mental status, abdominal pain women, abdominal pain men, vaginal bleeding, weakness, fever, dyspnea, syncope, headache, dizziness, GI bleed, back pain, seizure, CVA, palpatations, mental health, musculoskeletal)? @ -Alcohol abuse alcohol intoxication, alcohol withdrawal EKG interpreted by me (3pts min.). @ -None X-rays interpreted by me (1pt min.). @ -None done CT interpreted by me (1pt min.). @ -None done U/S interpreted by me (1pt. min.). @ -None done What testing was considered but not performed or refused? (CT, X-rays, U/S, wali hernandez)? Why? @ -None What meds were considered but not given or refused? Why? @ -None Did you discuss the management of the patient with other professionals (professionals i.e. , PA, INSPECTOR PACKER, lab, RT, psych nurse, social work associate, vault maker, teacher, diplomatic officer, case loader operator)? Give summary @ -No Was smoking cessation discussed for >3mins.? @ -No Was critical care preformed (if so, how long)? @ -No Were there social determinants of health that impacted care today? How? (Homelessness, low income, unemployed, alcoholism, drug addiction, transportation, low edu. Level, literacy, decrease access to med. care, alf, rehab)? @ -No Was there de-escalation of care discussed even if they declined (Discuss DNR or withdrawal of care, Hospice)? DNR status @ -No What co-morbidities impacted this encounter? (DM, HTN, Smoking, COPD, CAD, Cancer, CVA, ARF, Chemo, Hep., AIDS, mental health diagnosis, sleep apnea, morbid obesity)? @ -Alcohol abuse, anxiety Was patient admitted / discharged? Hospital course, mention meds given and route, prescriptions, significant lab abnormalities, going to OR and other pertinent info. @ -Discharge patient has greatly improved at this time. Patient had mild symptoms he is advised to fill his prescription for Librium is advised to follow-up with rehab prior discussed. Return parameters were discussed. Undiagnosed new problem with uncertain prognosis? @ -No Drug Therapy requiring intensive monitoring for toxicity (Heparin, Nitro, Insulin, Cardizem)? @ -No Were any procedures done? @ -No Diagnosis/symptom? @ -Alcohol abuse Acute, or Chronic, or Acute on Chronic? @ -Acute on chronic Uncomplicated (without systemic symptoms) or Complicated (systemic symptoms)? @ -Uncomplicated Side effects of treatment? @ -No Exacerbation, Progression, or Severe Exacerbation? @ -No Poses a threat to life or bodily function? How? (Chest pain, USA, DC, pneumonia, PE, COPD, DKA, ARF, appy, cholecystitis, CVA, Diverticulitis, Homicidal, Suicidal, threat to staff... and all critical care pts) @ -No - Lab Data Result diagrams: 10/04/22 03:12 10/04/22 03:12 Lab Results 10/04/22 10/04/22 Range/Units 03:12 03:12 WBC 10.8 H (3.8-10.6) k/uL RBC 3.63 L (4.30-5.90) m/uL Hgb 10.8 L (13.0-17.5) gm/dL Hct 32.6 L (39.0-53.0) % MCV 89.8 (80.0-100.0) fL MCH 29.8 (25.0-35.0) pg MCHC 33.2 (31.0-37.0) g/dL RDW 14.8 (11.5-15.5) % Plt Count 312 (150-450) k/uL MPV 8.1 Neutrophils % 76 % Lymphocytes % 16 % Monocytes % 3 % Eosinophils % 1 % Basophils % 0 % Neutrophils # 8.2 H (1.3-7.7) k/uL Lymphocytes # 1.8 (1.0-4.8) k/uL Monocytes # 0.3 (0-1.0) k/uL Eosinophils # 0.1 (0-0.7) k/uL Basophils # 0.0 (0-0.2) k/uL Sodium 138 (137-145) mmol/L Potassium 4.2 (3.5-5.1) mmol/L Chloride 102 (98-107) mmol/L Carbon Dioxide 22 (22-30) mmol/L Anion Gap 14 mmol/L BUN 17 (9-20) mg/dL Creatinine 0.79 (0.66-1.25) mg/dL Est GFR (CKD-EPI)AfAm >90 (>60 ml/min/1.73 sqM) Est GFR (CKD-EPI)NonAf >90 (>60 ml/min/1.73 sqM) Glucose 171 H (74-99) mg/dL Calcium 8.9 (8.4-10.2) mg/dL Magnesium 1.4 L (1.6-2.3) mg/dL Total Bilirubin 0.5 (0.2-1.3) mg/dL AST 32 (17-59) U/L ALT 25 (4-49) U/L Alkaline Phosphatase 122 (38-126) U/L Total Protein 6.9 (6.3-8.2) g/dL Albumin 4.0 (3.5-5.0) g/dL Lipase 119 (23-300) U/L Disposition Clinical Impression: Alcohol abuse Disposition: HOME SELF-CARE Condition: Stable Instructions (If sedation given, give patient instructions): Alcohol Withdrawal (ED) Additional Instructions: Please return to the Emergency Department if symptoms worsen or any other concerns. Is patient prescribed a controlled substance at d/c from ED?: No Referrals: Marlen Mobley MD [Primary Care Provider] - 1-2 days Time of Disposition: 03:50
[2022-10-04 03:35] LABS: ALT 25 U/L (4-49); AST 32 U/L (17-59); African American GFR (CKD) >90 (>60 ml/min/1.73 sqM); Alkaline Phosphatase 122 U/L (38-126); Anion Gap 14 mmol/L; Blood Urea Nitrogen 17 mg/dL (9-20); Calcium 8.9 mg/dL (8.4-10.2); Carbon Dioxide 22 mmol/L (22-30); Chloride 102 mmol/L (98-107); Glucose 171 mg/dL (74-99); Lipase 119 U/L (23-300); Magnesium 1.4 mg/dL (1.6-2.3); Non-African American GFR(CKD) >90 (>60 ml/min/1.73 sqM); Potassium 4.2 mmol/L (3.5-5.1); Sodium 138 mmol/L (137-145); Total Bilirubin 0.5 mg/dL (0.2-1.3); Total Protein 6.9 g/dL (6.3-8.2)
[2022-10-04 03:43] LABS: Basophils % (A) 0 %; Eosinophils # (A) 0.1 k/uL (0-0.7); Eosinophils % (A) 1 %; HCT 32.6 % (39.0-53.0); HGB 10.8 gm/dL (13.0-17.5); Lymphocytes # (A) 1.8 k/uL (1.0-4.8); Lymphocytes % (A) 16 %; MCH 29.8 pg (25.0-35.0); MCHC 33.2 g/dL (31.0-37.0); MCV 89.8 fL (80.0-100.0); Mean Platelet Volume 8.1; Monocytes # (A) 0.3 k/uL (0-1.0); Monocytes % (A) 3 %; Neutrophils # (A) 8.2 k/uL (1.3-7.7); Neutrophils % (A) 76 %; Platelet Count 312 k/uL (150-450); RBC 3.63 m/uL (4.30-5.90); RDW 14.8 % (11.5-15.5); WBC 10.8 k/uL (3.8-10.6)
[2022-10-04] MEDS ORDERED: MAGNESIUM OXIDE 400 MG TAB PO STA (03:45)
[2022-10-04 04:32] VITALS: BP 170/93; PULSE 92; RESP 18; TEMP 98.1
== END 2022-10-04 04:31 | disposition home or self-care (01) ==
LOC: EC 02:29
DX: F10.10 Alcohol abuse, uncomplicated (principal); E11.9 Type 2 diabetes mellitus without complications; I10 Essential (primary) hypertension; G47.30 Sleep apnea, unspecified; F41.9 Anxiety disorder, unspecified; F31.9 Bipolar disorder, unspecified; F17.290 Nicotine dependence, other tobacco product, uncomplicated; Z88.8 Allergy status to other drugs, medicaments and biological substances; Z79.899 Other long term (current) drug therapy
CPT/HCPCS: 36415; 80053; 83690; 83735; 85025; 99285; 96374; 96361; J2060

== ENCOUNTER 2022-10-11 07:52 | Inpatient (IN) | payer MEDICARE, OTHER ==
[2022-10-11] MEDS ORDERED: SODIUM CHLORIDE 0.9% 500 ML 500 ML IV STA (08:14)
--- NOTE | 2022-10-11 08:14 | ED ---
Chest Pain HPI - General Chief Complaint: Chest Pain Stated Complaint: Chest pain/SOB Time Seen by Provider: 10/11/22 08:03 Source: patient Mode of arrival: ambulatory Limitations: no limitations - History of Present Illness Initial Comments: 57-year-old male with past medical history of diabetes, hypertension, alcohol abuse who presents to the emergency department with chest pain and shortness of breath. States it started yesterday morning. Describes it as a sharp pressure in the anterior portion of his chest. Denies history of cardiac disease. Does smoke. No history of asthma or COPD. He denies any fevers. Does admit to a cough. No nausea, vomiting or diaphoresis. No calf pain or swelling. No history of DVT or PE. No fevers. Denies any sick contacts. No other alleviating, precipitating or modifying factors - Related Data Home Medications Medication Instructions Recorded Confirmed Multivitamins, Thera [Multivitamin 1 tab PO DAILY 10/07/21 10/11/22 (formulary)] Cyclobenzaprine [Flexeril] 10 mg PO TID PRN 09/11/22 10/11/22 HYDROcodone/APAP 7.5-325MG [[place] 1 tab PO Q6HR PRN 09/11/22 10/11/22 7.5-325] Melatonin 5 mg PO HS PRN 09/11/22 10/11/22 Pregabalin [Lyrica] 100 mg PO TID 09/11/22 10/11/22 Sennosides/Docusate Sodium [Senna 1 tab PO DAILY PRN 09/11/22 10/11/22 Plus 8.6-50 mg Softgel] Previous Rx's Medication Instructions Recorded Aspirin EC [Ecotrin Low Dose] 81 mg PO DAILY 30 Days tab 08/17/21 Calcium Carbonate [Tums] 500 mg PO QID PRN 30 Days 08/17/21 Ferrous Sulfate [Iron (65 MG 325 mg PO DAILY 30 Days tab 08/17/21 Elemental)] Mirtazapine [Remeron] 15 mg PO HS 30 Days tab 08/17/21 Pantoprazole [Protonix] 40 mg PO HS 30 Days tab 08/17/21 Pravastatin Sodium [Pravachol] 40 mg PO HS 30 Days tab 08/17/21 Vitamin B Complex 1 cap PO DAILY 30 Days cap 08/17/21 busPIRone HCL 15 mg PO BID 30 Days tab 08/17/21 glipiZIDE [Glucotrol] 20 mg PO BID 30 Days tab 08/17/21 metFORMIN HCL [Glucophage] 1,000 mg PO BID 30 Days #60 tab 08/17/21 Propranolol HCl 40 mg PO BID 30 Days #60 tablet 09/13/22 Folic Acid 1 mg PO DAILY #30 tab 10/16/22 OLANZapine [ZyPREXA] 5 mg PO HS #30 tab 10/16/22 Thiamine [Vitamin B-1] 100 mg PO DAILY #30 tab 10/16/22 Allergies Allergy/AdvReac Type Severity Reaction Status Date / Time thimerosal Allergy Severe Rash/Hives/throat Verified 10/11/22 08:49 swelling neomycin Allergy Rash/Hives Verified 10/11/22 08:49 Review of Systems ROS Statement: Those systems with pertinent positive or pertinent negative responses have been documented in the HPI. ROS Other: All systems not noted in ROS Statement are negative. EKG Findings - EKG Comments: EKG Findings:: EKG interpreted by myself demonstrates sinus tachycardia with a rate of 126. NV interval 104. QRS 90. QTc is 385. No acute ST segment elevations or depressions Past Medical History Past Medical History: Diabetes Mellitus, GERD/Reflux, Hyperlipidemia, Hypertension, Liver Disease, Renal Disease, Sleep Apnea/CPAP/BIPAP Additional Past Medical History / Comment(s): Neuropathy, back pain, no CPAP use, Cirrhosis, "kidneys don't always work right." History of Any Multi-Drug Resistant Organisms: None Reported Past Surgical History: Heart Catheterization, Joint Replacement, Orthopedic Surgery Additional Past Surgical History / Comment(s): Bilateral cataracts removed, bilateral hip replacements, right heal surgery with screws/plates/pins placed, L2-L4 cage infusion, Past Anesthesia/Blood Transfusion Reactions: No Reported Reaction Past Psychological History: Anxiety, Bipolar, Depression, PTSD, Schizoaffective Disorder Smoking Status: Current every day smoker, Vaper Past Alcohol Use History: Abuse, Daily, Heavy - Past Family History Father Family Medical History: Myocardial Infarction (DC) Additional Family Medical History / Comment(s): DC in mid 30's. Mother Family Medical History: Dementia family Additional Family Medical History / Comment(s): Anxiety. General Exam Limitations: no limitations General appearance: alert, in no apparent distress Head exam: Present: atraumatic, normocephalic, normal inspection Eye exam: Present: normal appearance, PERRL, EOMI. Absent: scleral icterus, conjunctival injection, periorbital swelling ENT exam: Present: normal exam, mucous membranes moist Neck exam: Present: normal inspection. Absent: tenderness, meningismus, lym phadenopathy Respiratory exam: Present: normal lung sounds bilaterally. Absent: respiratory distress, wheezes, rales, rhonchi, stridor Cardiovascular Exam: Present: normal rhythm, tachycardia, normal heart sounds. Absent: systolic murmur, diastolic murmur, rubs, gallop, clicks GI/Abdominal exam: Present: soft, normal bowel sounds. Absent: distended, tenderness, guarding, rebound, rigid Extremities exam: Present: normal inspection, full ROM, normal capillary refill. Absent: tenderness, pedal edema, joint swelling, calf tenderness Back exam: Present: normal inspection Neurological exam: Present: alert, oriented X3, CN II-XII intact Psychiatric exam: Present: normal affect, normal mood Skin exam: Present: warm, dry, intact, normal color. Absent: rash Course Vital Signs 10/11/22 10/11/22 10/11/22 07:56 09:00 09:30 Temperature 95.9 F L Pulse Rate 52 L 125 H 122 H Respiratory 18 14 14 Rate Blood Pressure 140/88 128/105 144/96 O2 Sat by Pulse 82 L 98 97 Oximetry 10/11/22 10/11/22 10/11/22 10:00 10:30 15:32 Temperature 97.5 F L Pulse Rate 123 H 121 H 115 H Respiratory 18 14 18 Rate Blood Pressure 127/94 119/97 122/91 O2 Sat by Pulse 96 96 98 Oximetry Chest Pain MDM - MDM Was pt. sent in by a medical professional or institution (, PA, GREEN MARKETER, urgent care, hospital, or skilled nursing...) When possible be specific @ -No Did you speak to anyone other than the patient for history (EMS, parent, family, police, friend...)? What history was obtained from this source @ No Did you review nursing and triage notes (agree or disagree)? Why? @ -I reviewed and agree with nursing and triage note Were old charts reviewed (outside hosp., previous admission, EMS record, old EKG, old radiological studies, urgent care reports/EKG's, skilled nursing records)? Report findings @ -No old charts were reviewed Differential Diagnosis (chest pain, altered mental status, abdominal pain women, abdominal pain men, vaginal bleeding, weakness, fever, dyspnea, syncope, headache, dizziness, GI bleed, back pain, seizure, CVA, palpatations, mental health, musculoskeletal)? @ -stemi, nstemi, acs, coronary vasospasm, pe, dissection EKG interpreted by me (3pts min.). @ -yes X-rays interpreted by me (1pt min.). @ -yes CT interpreted by me (1pt min.). @ -yes U/S interpreted by me (1pt. min.). @ -None done What testing was considered but not performed or refused? (CT, X-rays, U/S, labs)? Why? @ -None What meds were considered but not given or refused? Why? @ -None Did you discuss the management of the patient with other professionals (professionals i.e. , PA, GREEN MARKETER, lab, RT, psych nurse, social research assistant, tread cutter, teacher, medical information officer, watch case polisher)? Give summary @ -Dr. Smith accepted the patient Was smoking cessation discussed for >3mins.? @ -No Was critical care preformed (if so, how long)? @ -yes, 35 minutes Were there social determinants of health that impacted care today? How? (Homele ssness, low income, unemployed, alcoholism, drug addiction, transportation, low edu. Level, literacy, decrease access to med. care, skilled nursing, rehab)? @ -alcoholism Was there de-escalation of care discussed even if they declined (Discuss DNR or withdrawal of care, Hospice)? DNR status @ -No What co-morbidities impacted this encounter? (DM, HTN, Smoking, COPD, CAD, Cancer, CVA, ARF, Chemo, Hep., AIDS, mental health diagnosis, sleep apnea, morbid obesity)? @ -alcoholism Was patient admitted / discharged? Hospital course, mention meds given and route, prescriptions, significant lab abnormalities, going to OR and other pertinent info. @ -Upon arrival the patient was placed into room 3. A thorough history and physical exam was performed. IV access is established. Patient was given a dose of Ativan due to his extreme tachycardia with last drink being 24 hours ag o. Lab studies are reviewed. D-dimer 8.5. Troponin 0.064. The patient was given an aspirin. He is sent for a CT of his chest which does not demonstrate PE. Patient will be admitted on a heparin drip with cardiology to consult. Spoke with Dr. Smith for admission. Undiagnosed new problem with uncertain prognosis? @ -No Drug Therapy requiring intensive monitoring for toxicity (Heparin, Nitro, Insulin, Cardizem)? @ -yes, heparin Were any procedures done? @ -No Diagnosis/symptom? @ -NSTEMI, acute chest pain, acute tachycardia, impending DTs Acute, or Chronic, or Acute on Chronic? @ -acute Uncomplicated (without systemic symptoms) or Complicated (systemic symptoms)? @ -complicated Side effects of treatment? @ -No Exacerbation, Progression, or Severe Exacerbation? @ -[o Poses a threat to life or bodily function? How? (Chest pain, USA, DC, pneumonia, PE, COPD, DKA, ARF, appy, cholecystitis, CVA, Diverticulitis, Homicidal, Suicidal, threat to staff... and all critical care pts) @ -yes - suspected DTs or cardiac arrest from heart disease Disposition Clinical Impression: Chest pain, NSTEMI (non-ST elevated myocardial infarction) Disposition: ADMITTED IP TO THIS HOSP Condition: Stable Is patient prescribed a controlled substance at d/c from ED?: No Time of Disposition: 10:52 Decision to Admit Reason: Admit from EC Decision Date: 10/11/22 Decision Time: 10:52
[2022-10-11] MEDS ORDERED: LORazepam 2 MG/ML INJ IV STA (08:15)
--- NOTE | 2022-10-11 09:10 | XR ---
EXAMINATION TYPE: XR chest 2V DATE OF EXAM: 10/11/2022 9:02 AM COMPARISON: Chest radiographs from 09/11/2022, CTA chest 09/11/2022. TECHNIQUE: XR chest 2V Frontal and lateral views of the chest. CLINICAL INDICATION:Male, 57 years old with history of Chest Pain; FINDINGS: Lungs/Pleura: There is no evidence of pleural effusion, focal consolidation, or pneumothorax. Simila r of elevation the right hemidiaphragm. Pulmonary vascularity: Unremarkable. Heart/mediastinum: Cardiomediastinal silhouette is unremarkable. Musculoskeletal: No acute osseous pathology. IMPRESSION: No acute cardiopulmonary disease/process. No significant change from prior examination.
[2022-10-11 09:20] LABS: ALT 39 U/L (4-49); African American GFR (CKD) >90 (>60 ml/min/1.73 sqM); Albumin 4.4 g/dL (3.5-5.0); Anion Gap 23 mmol/L; Blood Urea Nitrogen 24 mg/dL (9-20); Calcium 8.9 mg/dL (8.4-10.2); Carbon Dioxide 14 mmol/L (22-30); Chloride 91 mmol/L (98-107); Glucose 280 mg/dL (74-99); Lipase 425 U/L (23-300); Non-African American GFR(CKD) 80 (>60 ml/min/1.73 sqM); Sodium 128 mmol/L (137-145); Total Protein 7.7 g/dL (6.3-8.2)
[2022-10-11 09:24] LABS: AST 45 U/L (17-59); Alkaline Phosphatase 160 U/L (38-126); Magnesium 2.4 mg/dL (1.6-2.3); Potassium 4.6 mmol/L (3.5-5.1)
[2022-10-11 09:25] LABS: HCT 40.9 % (39.0-53.0); MCH 30.4 pg (25.0-35.0); MCHC 33.7 g/dL (31.0-37.0); MCV 90.3 fL (80.0-100.0); Mean Platelet Volume 8.6; Platelet Count 425 k/uL (150-450); RBC 4.53 m/uL (4.30-5.90); RDW 14.8 % (11.5-15.5); WBC 7.7 k/uL (3.8-10.6)
[2022-10-11 09:26] LABS: HGB 13.8 gm/dL (13.0-17.5)
[2022-10-11 09:43] LABS: INR 0.9 (<1.2); Prothrombin Time 9.8 sec (9.0-12.0)
[2022-10-11 09:54] LABS: Partial Thromboplastin Time 21.5 sec (22.0-30.0)
[2022-10-11] MEDS ORDERED: ASPIRIN 81 MG PO STA (10:43)
[2022-10-11] MEDS ORDERED: NALOXONE 0.4 MG/ML 1 ML VIAL IV PRN (11:37)
[2022-10-11] MEDS ORDERED: THIAMINE 100 MG/ML 2 ML VIAL IM STA (11:37)
[2022-10-11] MEDS ORDERED: MORPHINE SULFATE 4 MG/ML SYRINGE IVP STA (11:37)
[2022-10-11] MEDS ORDERED: LORazepam 0.5 MG TAB PO PRN (11:37)
[2022-10-11] MEDS ORDERED: LORazepam 1 MG TAB PO PRN ×4 (11:37)
[2022-10-11] MEDS ORDERED: MORPHINE SULFATE 4 MG/ML SYRINGE IV PRN (11:37)
[2022-10-11 11:48] LABS: Band Neutrophils % 4 %; Lymphocytes # (M) 1.16 k/uL (1.0-4.8); Monocytes # (M) 0.62 k/uL (0-1.0); Neutrophils % (M) 73 %; Nucleated Red Blood Cells 0 /100 WBC (0-0); RBC Morphology Normal; Total Cells Counted 100
--- NOTE | 2022-10-11 12:38 | CT ---
EXAMINATION TYPE: CT chest angio for PE CT DLP: 303.2 mGycm, Automated exposure control for dose reduction was used. DATE OF EXAM: 10/11/2022 12:20 PM COMPARISON: CTA chest 09/11/2022. Chest radiograph from same day. CLINICAL INDICATION:Male, 57 years old with history of pe; CHEST PAIN, SOB TECHNIQUE/CONTRAST: CTA scan of the thorax is performed with IV Contrast, patient injected with 100 mL of Isovue 300, pul monary embolism protocol. MIP images are created and reviewed. There was some IV contrast extravasa tion within the right wrist. BOBY Soriano notified. FINDINGS: Pulmonary Artery: There is no evidence for a central filling defect within the pulmonary vasculature to suggest acute pulmonary embolism. Limited evaluation of the segmental and subsegmental branches se condary to bolus timing. The pulmonary artery is of normal size. Lungs/Pleura: No evidence of focal consolidation, pleural effusion or pneumothorax. No suspicious pul monary nodule or mass. Elevation the right hemidiaphragm redemonstrated. Associated atelectasis secon smith to diaphragm is again noted. Airway: Large airways are patent. Heart: Heart is within normal limits for size.. Vasculature: No evidence of aortic aneurysm. Mediastinum: No gross evidence of adenopathy. Musculoskeletal: No acute osseous abnormalities Soft Tissues: Unremarkable. Lower neck: No significant findings. Upper Abdomen: Diffuse low-attenuation to the liver parenchyma. Small hiatal hernia. IMPRESSION: 1. No evidence of central pulmonary embolism. Limited evaluation of the segmental and subsegmental br anches. 2. Hepatic steatosis.
[2022-10-11] MEDS ORDERED: HEPARIN SODIUM 1,000 UN/ML (10ML VL) IV PRN (13:38)
[2022-10-11] MEDS ORDERED: HEPARIN SODIUM 1,000 UN/ML (10ML VL) IV ONE (13:38)
--- NOTE | 2022-10-11 13:40 | P.CRDCN ---
History of Present Illness Consult date: 10/11/22 History of present illness: HISTORY OF PRESENT ILLNESS: This is a 49-year-old male with a past medical history significant for hyperlipidemia, hypertension, diabetes, alcohol abuse, nicotine dependence, anxiety, bipolar disorder, depression, PTSD, and schizoaffective disorder. Patient follows in the office with Dr. Morton has not been to the office since May 2020. We have been asked to see the patient in consultation for chest pain. Patient examined at the bedside. Patient states he began having chest pain and shortness of breath over the last 24 hours. At the time of examination, the patient denies having any chest pain or pressure. He continues to report mild shortness of breath. Patient was found to have minimally elevated troponins and elevated d-dimer. He underwent a CTA which was negative for pulmonary embolism. * EKG reveals sinus tachycardia with a heart rate of 126 * Chest xray no acute cardiopulmonary disease * Laboratory data: WBC 7.7. Hemoglobin 13.8. Platelet count 425. Sodium 128. Potassium 4.6. BUN 24. Creatinine 1.03. Troponin 0.064. ProBNP 927. Lipase 425. * Current home cardiac medications include propanolol 40 mg twice a day, aspirin 81 mg daily, and Pravachol 40 mg at night * Most recent echocardiogram obtained in September 2021 revealing ejection fraction 60-65%, mild TR * Cardiac catheterization history: May 2020 revealing normal coronary arteries REVIEW OF SYSTEMS: At the time of my exam: CONSTITUTIONAL: Denies fever or chills. HEENT: Denies blurred vision, vision changes, or eye pain. Denies hemoptysis CARDIOVASCULAR: Denies chest pain. Denies orthopnea. Denies PND. Denies palpitations RESPIRATORY: Denies shortness of breath. GASTROINTESTINAL: Denies abdominal pain. Denies nausea or vomiting. HEMATOLOGIC: Denies bleeding disorders. GENITOURINARY: Denies any blood in urine. SKIN: Denies pruitis. Denies rash. PHYSICAL EXAM: VITAL SIGNS: Reviewed. GENERAL: Well-developed in no acute distress. HEENT: Head is normocephalic. Pupils are equal, round. Sclerae anicteric. Mucous membranes of the mouth are moist. Neck supple. No JVD or thyromegaly LUNGS: Respirations even and unlabored. Lungs essentially clear to auscultation bilaterally. HEART: Regular rate and rhythm. S1 and S2 heard. ABDOMEN: Soft. Nondistended. Nontender. EXTREMITIES: Normal range of motion. No clubbing or cyanosis. Peripheral pulses intact. No lower extremity edema NEUROLOGIC: Awake and alert. Oriented x 3. ASSESSMENT: Chest pain and shortness of breath 24 hours Normal coronary arteries, per cardiac catheterization in 2020 Elevated d-dimer, CT negative for pulmonary embolism Hyponatremia Elevated lipase Hyperlipidemia Hypertension Diabetes History of alcohol abuse Nicotine dependence Anxiety Bipolar disorder Depression PTSD Schizoaffective disorder PLAN: Obtain 2-D echo to assess cardiac structure and function Begin IV heparin Trend troponins Resume home cardiac medications Nothing by mouth at midnight. Will reevaluate in a.m. for possible stress testing or cardiac cath if rise in troponin Further recommendations pending patient's course Nurse practitioner note has been reviewed by physician. Signing provider agrees with the documented findings, assessment, and plan of care. Past Medical History Past Medical History: Diabetes Mellitus, GERD/Reflux, Hyperlipidemia, Hypertension, Liver Disease, Renal Disease, Sleep Apnea/CPAP/BIPAP Additional Past Medical History / Comment(s): Neuropathy, back pain, no CPAP use, Cirrhosis, "kidneys don't always work right." History of Any Multi-Drug Resistant Organisms: None Reported Past Surgical History: Heart Catheterization, Joint Replacement, Orthopedic Surgery Additional Past Surgical History / Comment(s): Bilateral cataracts removed, bilateral hip replacements, right heal surgery with screws/plates/pins placed, L2-L4 cage infusion, Past Anesthesia/Blood Transfusion Reactions: No Reported Reaction Past Psychological History: Anxiety, Bipolar, Depression, PTSD, Schizoaffective Disorder Smoking Status: Current every day smoker, Vaper Past Alcohol Use History: Abuse, Daily, Heavy - Past Family History Father Family Medical History: Myocardial Infarction ([place]) Additional Family Medical History / Comment(s): [place] in mid 30's. Mother Family Medical History: Dementia family Additional Family Medical History / Comment(s): Anxiety. Medications and Allergies Home Medications Medication Instructions Recorded Confirmed Type Aspirin EC [Ecotrin Low Dose] 81 mg PO DAILY 30 Days tab 08/17/21 10/11/22 Rx Calcium Carbonate [Tums] 500 mg PO QID PRN 30 Days 08/17/21 10/11/22 Rx Ferrous Sulfate [Iron (65 MG 325 mg PO DAILY 30 Days tab 08/17/21 10/11/22 Rx Elemental)] Mirtazapine [Remeron] 15 mg PO HS 30 Days tab 08/17/21 10/11/22 Rx Pantoprazole [Protonix] 40 mg PO HS 30 Days tab 08/17/21 10/11/22 Rx Pravastatin Sodium [Pravachol] 40 mg PO HS 30 Days tab 08/17/21 10/11/22 Rx Vitamin B Complex 1 cap PO DAILY 30 Days cap 08/17/21 10/11/22 Rx Ziprasidone [Geodon] 40 mg PO BID 30 Days cap 08/17/21 10/11/22 Rx busPIRone HCL 15 mg PO BID 30 Days tab 08/17/21 10/11/22 Rx glipiZIDE [Glucotrol] 20 mg PO BID 30 Days tab 08/17/21 10/11/22 Rx metFORMIN HCL [Glucophage] 1,000 mg PO BID 30 Days #60 tab 08/17/21 10/11/22 Rx Multivitamins, Thera [Multivitamin 1 tab PO DAILY 10/07/21 10/11/22 History (formulary)] Magnesium Oxide [Mag-Ox] 400 mg PO DAILY 04/25/22 10/11/22 History Cyclobenzaprine [Flexeril] 10 mg PO TID PRN 09/11/22 10/11/22 History Gabapentin 800 mg PO Q6H 09/11/22 10/11/22 History HYDROcodone/APAP 7.5-325MG [[place] 1 tab PO Q6HR PRN 09/11/22 10/11/22 History 7.5-325] Melatonin 5 mg PO HS PRN 09/11/22 10/11/22 History Naproxen [Naprosyn] 500 mg PO Q12H PRN 09/11/22 10/11/22 History Pregabalin [Lyrica] 100 mg PO TID 09/11/22 10/11/22 History Sennosides/Docusate Sodium [Senna 1 tab PO DAILY PRN 09/11/22 10/11/22 History Plus 8.6-50 mg Softgel] Tirzepatide [Mounjaro] 5 mg SQ DIRECTED 09/11/22 10/11/22 History Propranolol HCl 40 mg PO BID 30 Days #60 tablet 09/13/22 10/11/22 Rx clonazePAM [KlonoPIN] 1 mg PO TID 3 Days #9 tab 09/13/22 10/11/22 Rx chlordiazePOXIDE HCl [Librium] 25 mg PO TID 3 Days #9 capsule 10/03/22 10/11/22 Rx Allergies Allergy/AdvReac Type Severity Reaction Status Date / Time thimerosal Allergy Severe Rash/Hives/throat Verified 10/11/22 08:49 swelling neomycin Allergy Rash/Hives Verified 10/11/22 08:49 Physical Exam Vitals: Vital Signs Temp Pulse Resp BP Pulse Ox 10/11/22 10:30 121 H 14 119/97 96 10/11/22 10:00 123 H 18 127/94 96 10/11/22 09:30 122 H 14 144/96 97 10/11/22 09:00 125 H 14 128/105 98 10/11/22 07:56 95.9 F L 52 L 18 140/88 82 L Intake and Output 10/10/22 10/11/22 10/11/22 22:59 06:59 14:59 Other: Weight 79.379 kg Results 10/11/22 08:50 10/11/22 08:50 Cardiac Enzymes 10/11/22 10/11/22 Range/Units 08:50 08:50 AST 45 (17-59) U/L Troponin I 0.064 H* (0.000-0.034) ng/mL Coagulation 10/11/22 Range/Units 08:50 PT 9.8 (9.0-12.0) sec APTT 21.5 L (22.0-30.0) sec CBC 10/11/22 Range/Units 08:50 WBC 7.7 (3.8-10.6) k/uL RBC 4.53 (4.30-5.90) m/uL Hgb 13.8 D (13.0-17.5) gm/dL Hct 40.9 (39.0-53.0) % Plt Count 425 (150-450) k/uL Comprehensive Metabolic Panel 10/11/22 Range/Units 08:50 Sodium 128 L (137-145) mmol/L Potassium 4.6 (3.5-5.1) mmol/L Chloride 91 L (98-107) mmol/L Carbon Dioxide 14 L (22-30) mmol/L BUN 24 H (9-20) mg/dL Creatinine 1.03 (0.66-1.25) mg/dL Glucose 280 H (74-99) mg/dL Calcium 8.9 (8.4-10.2) mg/dL AST 45 (17-59) U/L ALT 39 (4-49) U/L Alkaline Phosphatase 160 H (38-126) U/L Total Protein 7.7 (6.3-8.2) g/dL Albumin 4.4 (3.5-5.0) g/dL Current Medications Generic Name Dose Route Start Last Admin Trade Name Freq PRN Reason Stop Dose Admin Lorazepam 0.5 mg 10/11/22 11:37 Lorazepam 0.5 Mg Tab PO Q4HR PRN [place] 4 To 5 Lorazepam 1 mg 10/11/22 11:37 Lorazepam 1 Mg Tab PO Q4HR PRN [place] 6 To 7 Lorazepam 2 mg 10/11/22 11:37 Lorazepam 1 Mg Tab PO Q2HR PRN [place] 10 or greater Lorazepam 2 mg 10/11/22 11:37 Lorazepam 1 Mg Tab PO Q3HR PRN [place] 8 To 9 Lorazepam 1 mg 10/11/22 11:37 Lorazepam 1 Mg Tab PO Q1HR PRN Alcohol Withdrawal Morphine Sulfate 4 mg 10/11/22 11:37 Morphine Sulfate 4 Mg/Ml Syringe IV Q4HR PRN Severe Pain (Scale 7 to 10) Naloxone HCl 0.2 mg 10/11/22 11:37 Naloxone 0.4 Mg/Ml 1 Ml Vial IV Q2M PRN Opioid Reversal Thiamine HCl 100 mg 10/12/22 09:00 Thiamine 100 Mg Tab PO DAILY HEMANTH Intake and Output 10/10/22 10/11/22 10/11/22 22:59 06:59 14:59 Other: Weight 79.379 kg Patient Weight 10/12/22 06:59 Weight 79.379 kg 10/11/22 08:50 10/11/22 08:50
[2022-10-11] MEDS ORDERED: HEPARIN SOD,PORK IN 0.45% NACL 25,000 UNIT in 0.45% NACL 1 250ML.BAG IV SCH (13:45)
[2022-10-11] MEDS ORDERED: MELATONIN 5 MG TABLET PO PRN (14:47)
[2022-10-11] MEDS ORDERED: DEXTROSE 50% SYRINGE 50 ML IVP PRN ×2 (15:10)
--- NOTE | 2022-10-11 15:19 | P.HPIM ---
History of Present Illness H&P Date: 10/11/22 Chief Complaint: Chest pain and shortness of breath Patient is a 57-year-old male with a past medical history of hypertension, hyperlipidemia, type 2 diabetes mellitus, chronic back pain, COPD, tobacco abuse, sleep apnea and not able to tolerate CPAP who was recently admitted last month for anxiety with panic attacks and alcoholic pancreatitis. Patient on that admission was started on propanolol. Patient comes to the ED today because of intermittent sharp chest pain with shortness of breath that started 1 day ago. Patient states that his symptoms worsen with exertion and improve with rest. He states that his chest pain is substernal sharp and radiates to his left arm. He is also complaining of "stomach pain". Patient states that he has been drinking for the past 10 days. He states that his last drink was 1 day ago. Patient also states that he stopped taking all of his medications one month ago which includes Klonopin. Patient states that currently his chest pain has subsided and is no longer having shortness of breath. In the ED patient was tachycardic. Sodium 128, chloride 91, bicarbonate 14, alkaline phosphatase 160, glucose 280, troponin 0.064 and alcohol less than 10, d-dimer 8.5. CTA chest negative for pulmonary embolism. Lipase 424. Patient was admitted to the medicine service and to also be evaluated by cardiology. Review of symptoms: 10 ROS reviewed and are negative except as noted in HPI Physical exam General: [Alert and oriented, no acute distress, appears chronically debilitated]. Eye: [PERRL, EOMI, normal conjunctiva]. HENT: [Normocephalic, clear tympanic membranes, normal hearing, moist oral mucosa, no scleral icterus, no sinus tenderness]. Neck: [Supple, non-tender, no carotid bruits, no JVD, no lymphadenopathy]. Lungs: [Clear to auscultation and percussion, non-labored respiration]. Heart: [Tachycardic, regular rhythm, no murmur, gallop or edema]. Abdomen: [Soft, non-tender, non-distended, normal bowel sounds, no masses]. Musculoskeletal: [Normal range of motion and strength, no tenderness or swelling]. Neurologic: [Awake, alert, and oriented X3, CN II-XII intact]. Psychiatric: [Cooperative, appropriate mood and affect]. Assessment I reviewed patient's vital signs. Patient is tachycardic. I believe the initial vital signs that were in error Data reviewed: Sodium 128, chloride 91, bicarbonate 14, alkaline phosphatase 160, glucose 280, troponin 0.064 and alcohol less than 10, d-dimer 8.5. CTA chest negative for pulmonary embolism. Lipase 424. Atypical chest pain Elevated troponin suspect type II NC from tachycardia Sinus tachycardia likely due to dehydration and alcohol withdrawal Acute alcohol pancreatitis Acute on chronic elevated alkaline phosphatase likely due to alcohol abuse. Rule out bile duct obstruction Alcohol abuse/alcohol withdrawal Metabolic acidosis suspect due to alcoholic ketoacidosis Acute on chronic depression Elevated d-dimer: CTA chest negative for pulmonary embolism Acute on chronic elevated alkaline phosphatase likely due to alcohol abuse. Rule out bile duct obstruction Mild hypovolemic hyponatremia Medication noncompliance History of benzodiazepine withdrawal Tobacco abuse Plan We'll trend troponins. Heparin drip as recommended by cardiology Check echocardiogram Cardiology recommends to keep the patient nothing by mouth for possible heart cath versus stress test tomorrow Restart patient's propanolol 40 mg by mouth twice a day and pravastatin 40 mg at bedtime and aspirin 81 mg daily Aggressive IV fluids IV morphine 4mg when necessary for pain Trend lipase Check right upper quadrant ultrasound to rule out bile duct obstruction Trend CMP CIWA protocol We'll resume patient's Remeron Consults psychiatry for his depression. Patient would like to go to [facility] once he is medically stable. Patient denies suicidal or homicidal idealization Patient states that he has not taken any of his medications that include Klo nopin, Narco gabapentin and lyrica for 1 month. We will not resume these medications as patient is high risk for drug abuse. Nicotine patch Patient counseled on alcohol and smoking cessation DVT prophylaxis: Heparin drip CODE STATUS:full code DVT prophylaxis: Heparin drip Discussed with: Patient, ER, rn Anticipated length of stay > than [address]: home versus [facility] A total of 75 minutes was spent on the care of this complex patient more than 50% of the time was spent in counseling and care coordination. Past Medical History Past Medical History: Diabetes Mellitus, GERD/Reflux, Hyperlipidemia, Hypertension, Liver Disease, Renal Disease, Sleep Apnea/CPAP/BIPAP Additional Past Medical History / Comment(s): Neuropathy, back pain, no CPAP use, Cirrhosis, "kidneys don't always work right." History of Any Multi-Drug Resistant Organisms: None Reported Past Surgical History: Heart Catheterization, Joint Replacement, Orthopedic Surgery Additional Past Surgical History / Comment(s): Bilateral cataracts removed, bilateral hip replacements, right heal surgery with screws/plates/pins placed, L2-L4 cage infusion, Past Anesthesia/Blood Transfusion Reactions: No Reported Reaction Past Psychological History: Anxiety, Bipolar, Depression, PTSD, Schizoaffective Disorder Smoking Status: Current every day smoker, Vaper Past Alcohol Use History: Abuse, Daily, Heavy - Past Family History Father Family Medical History: Myocardial Infarction ([place]) Additional Family Medical History / Comment(s): [place] in mid 30's. Mother Family Medical History: Dementia family Additional Family Medical History / Comment(s): Anxiety. Medications and Allergies Home Medications Medication Instructions Recorded Confirmed Type Aspirin EC [Ecotrin Low Dose] 81 mg PO DAILY 30 Days tab 08/17/21 10/11/22 Rx Calcium Carbonate [Tums] 500 mg PO QID PRN 30 Days 08/17/21 10/11/22 Rx Ferrous Sulfate [Iron (65 MG 325 mg PO DAILY 30 Days tab 08/17/21 10/11/22 Rx Elemental)] Mirtazapine [Remeron] 15 mg PO HS 30 Days tab 08/17/21 10/11/22 Rx Pantoprazole [Protonix] 40 mg PO HS 30 Days tab 08/17/21 10/11/22 Rx Pravastatin Sodium [Pravachol] 40 mg PO HS 30 Days tab 08/17/21 10/11/22 Rx Vitamin B Complex 1 cap PO DAILY 30 Days cap 08/17/21 10/11/22 Rx Ziprasidone [Geodon] 40 mg PO BID 30 Days cap 08/17/21 10/11/22 Rx busPIRone HCL 15 mg PO BID 30 Days tab 08/17/21 10/11/22 Rx glipiZIDE [Glucotrol] 20 mg PO BID 30 Days tab 08/17/21 10/11/22 Rx metFORMIN HCL [Glucophage] 1,000 mg PO BID 30 Days #60 tab 08/17/21 10/11/22 Rx Multivitamins, Thera [Multivitamin 1 tab PO DAILY 10/07/21 10/11/22 History (formulary)] Magnesium Oxide [Mag-Ox] 400 mg PO DAILY 04/25/22 10/11/22 History Cyclobenzaprine [Flexeril] 10 mg PO TID PRN 09/11/22 10/11/22 History Gabapentin 800 mg PO Q6H 09/11/22 10/11/22 History HYDROcodone/APAP 7.5-325MG [[place] 1 tab PO Q6HR PRN 09/11/22 10/11/22 History 7.5-325] Melatonin 5 mg PO HS PRN 09/11/22 10/11/22 History Naproxen [Naprosyn] 500 mg PO Q12H PRN 09/11/22 10/11/22 History Pregabalin [Lyrica] 100 mg PO TID 09/11/22 10/11/22 History Sennosides/Docusate Sodium [Senna 1 tab PO DAILY PRN 09/11/22 10/11/22 History Plus 8.6-50 mg Softgel] Tirzepatide [Mounjaro] 5 mg SQ DIRECTED 09/11/22 10/11/22 History Propranolol HCl 40 mg PO BID 30 Days #60 tablet 09/13/22 10/11/22 Rx clonazePAM [KlonoPIN] 1 mg PO TID 3 Days #9 tab 09/13/22 10/11/22 Rx chlordiazePOXIDE HCl [Librium] 25 mg PO TID 3 Days #9 capsule 10/03/22 10/11/22 Rx Allergies Allergy/AdvReac Type Severity Reaction Status Date / Time thimerosal Allergy Severe Rash/Hives/throat Verified 10/11/22 08:49 swelling neomycin Allergy Rash/Hives Verified 10/11/22 08:49 Physical Exam Osteopathic Statement: *. No significant issues noted on an osteopathic structural exam other than those noted in the History and Physical/Consult. Vitals: Vital Signs Temp Pulse Resp BP Pulse Ox 10/11/22 10:30 121 H 14 119/97 96 10/11/22 10:00 123 H 18 127/94 96 10/11/22 09:30 122 H 14 144/96 97 10/11/22 09:00 125 H 14 128/105 98 10/11/22 07:56 95.9 F L 52 L 18 140/88 82 L Intake and Output 10/11/22 10/11/22 10/11/22 06:59 14:59 22:59 Other: Weight 79.379 kg Results CBC & Chem 7: 10/11/22 08:50 10/11/22 08:50 Labs: Abnormal Lab Results - Last 24 Hours (Table) 10/11/22 10/11/22 10/11/22 Range/Units 08:50 08:50 08:50 APTT 21.5 L (22.0-30.0) sec D-Dimer 8.52 H (<0.60) mg/L FEU Sodium 128 L (137-145) mmol/L Chloride 91 L (98-107) mmol/L Carbon Dioxide 14 L (22-30) mmol/L BUN 24 H (9-20) mg/dL Glucose 280 H (74-99) mg/dL Magnesium 2.4 H (1.6-2.3) mg/dL Alkaline Phosphatase 160 H (38-126) U/L Troponin I 0.064 H* (0.000-0.034) ng/mL Lipase 425 H (23-300) U/L
[2022-10-11] MEDS: SODIUM CHLORIDE 0.9% 1,000 ML IV SCH (15:21)
[2022-10-11 16:21] LABS: Glucose,Whole Blood 379 mg/dL (70-110)
--- NOTE | 2022-10-11 16:35 | CA ---
Transthoracic Echo Report Name: Andrea Elliott Age: 57 Gender: M : 1965 Exam Date: 10/11/2022 14:18 Exam Location: [facility] Ht (in): 67 Wt (lb): 175 Ordering Physician: Ashley Max Attending/Referring Phys: [id number], Winter Continuous Still Operator Ilan Erickson Procedure CPT: Indications: LV function, elevated troponins, chest pain, SOB Cardiac Hx: Limited study secondary to tachycardia. Evaluate LV function. Technical Quality: Fair Contrast 1: Total Dose (mL): Contrast 2: Total Dose (mL): MEASUREMENTS (Male / Female) Normal Values 2D ECHO LV Diastolic Diameter PLAX 3.4 cm 4.2 - 5.9 / 3.9 - 5.3 cm LV Systolic Diameter PLAX 2.1 cm IVS Diastolic Thickness 1.6 cm 0.6 - 1.0 / 0.6 - 0.9 cm LVPW Diastolic Thickness 0.8 cm 0.6 - 1.0 / 0.6 - 0.9 cm LV Relative Wall Thickness 0.7 RV Internal Dim ED PLAX 2.2 cm LV Diastolic Volume MOD BP 21.3 cm??? 67 - 155 / 56 - 104 cm??? LV Systolic Volume MOD BP 8.8 cm??? 22 - 58 / 19 - 49 cm??? LV Ejection Fraction MOD BP 59.0 % >= 55 % LV Diastolic Volume MOD 4C 22.6 cm??? LV Systolic Volume MOD 4C 11.3 cm??? LV Ejection Fraction MOD 4C 49.8 % LV Diastolic Length 4C 6.3 cm LV Systolic Length 4C 5.0 cm LV Diastolic Volume MOD 2C 19.8 cm??? LV Systolic Volume MOD 2C 6.4 cm??? LV Ejection Fraction MOD 2C 67.6 % LV Diastolic Length 2C 6.5 cm LV Systolic Length 2C 5.4 cm FINDINGS Left Ventricle Limited study for LV function. Left ventricular ejection fraction is estimated at 50-55%. Right Ventricle Right Atrium Left Atrium Mitral Valve Aortic Valve Tricuspid Valve Pulmonic Valve Pericardium Aorta CONCLUSIONS Patient is tachycardic. There is a small pericardial effusion all-around circumferential. Ejection fraction is about 50-55% Previewed by: Dr. Chelo Morley MD (Electronically Signed) Final Date: 11 Oct 2022 16:34
[2022-10-11] MEDS: NICOTINE 21MG/24HR PATCH TRANSDERM SCH (16:48)
[2022-10-11] MEDS: INSULIN ASPART (NovoLOG) 100 UNIT/ML VIAL SQ SCH ×2 (16:48→20:44)
[2022-10-11 20:32] LABS: Glucose,Whole Blood 269 mg/dL (70-110)
[2022-10-11] MEDS: PANTOPRAZOLE 40 MG TABLET PO SCH (20:43)
[2022-10-11] MEDS: PRAVASTATIN SODIUM 40 MG TAB PO SCH (20:44)
[2022-10-11] MEDS: PROPRANOLOL 40 MG TAB PO SCH (20:52)
[2022-10-11] MEDS: busPIRone HCl 5 MG TAB PO SCH (20:52)
[2022-10-11] MEDS ORDERED: MIRTAZAPINE 15 MG TAB PO SCH (21:00)
[2022-10-12] MEDS ORDERED: LORazepam 2 MG/ML INJ IV STA (04:35)
[2022-10-12 06:08] LABS: Glucose,Whole Blood 231 mg/dL (70-110)
[2022-10-12] MEDS: INSULIN ASPART (NovoLOG) 100 UNIT/ML VIAL SQ SCH ×4 (06:46→20:23)
[2022-10-12] MEDS ORDERED: LORazepam 2 MG/ML INJ IV PRN ×3 (07:02)
[2022-10-12] MEDS: SODIUM CHLORIDE 0.9% 1,000 ML IV SCH ×4 (07:06→20:57)
[2022-10-12 07:11] LABS: ALT 39 U/L (4-49); African American GFR (CKD) >90 (>60 ml/min/1.73 sqM); Albumin 3.7 g/dL (3.5-5.0); Anion Gap 14 mmol/L; Blood Urea Nitrogen 25 mg/dL (9-20); Calcium 8.7 mg/dL (8.4-10.2); Carbon Dioxide 18 mmol/L (22-30); Chloride 100 mmol/L (98-107); Glucose 221 mg/dL (74-99); Lipase 359 U/L (23-300); Non-African American GFR(CKD) 82 (>60 ml/min/1.73 sqM); Sodium 132 mmol/L (137-145); Total Bilirubin 0.7 mg/dL (0.2-1.3); Total Protein 6.6 g/dL (6.3-8.2)
[2022-10-12 07:13] LABS: AST 49 U/L (17-59); Alkaline Phosphatase 141 U/L (38-126); Potassium 4.3 mmol/L (3.5-5.1)
[2022-10-12 07:27] LABS: Prothrombin Time 10.9 sec (9.0-12.0)
[2022-10-12] MEDS: NICOTINE 21MG/24HR PATCH TRANSDERM SCH (08:04)
[2022-10-12] MEDS: THIAMINE 100 MG TAB PO SCH (08:04)
[2022-10-12] MEDS: MULTIVITAMINS, THERA 1 EACH TAB PO SCH (08:04)
[2022-10-12] MEDS: ASPIRIN 81 MG PO SCH (08:04)
[2022-10-12] MEDS: busPIRone HCl 5 MG TAB PO SCH ×2 (08:04→20:55)
[2022-10-12] MEDS: PROPRANOLOL 40 MG TAB PO SCH ×2 (08:06→20:57)
[2022-10-12 08:38] LABS: HCT 36.1 % (39.0-53.0); HGB 12.5 gm/dL (13.0-17.5); MCH 30.6 pg (25.0-35.0); MCHC 34.6 g/dL (31.0-37.0); MCV 88.7 fL (80.0-100.0); Mean Platelet Volume 9.8; Platelet Count 365 k/uL (150-450); RBC 4.08 m/uL (4.30-5.90); RDW 14.9 % (11.5-15.5)
[2022-10-12] MEDS ORDERED: HYDROmorphone 1 MG/ML 1 ML SYRINGE IVP PRN (09:15)
[2022-10-12] MEDS ORDERED: CYCLOBENZAPRINE 10 MG TAB PO PRN (09:16)
[2022-10-12] MEDS ORDERED: chlordiazePOXIDE 25 MG CAP PO STA (09:18)
[2022-10-12 09:59] LABS: Band Neutrophils % 6 %; Lymphocytes # (M) 2.25 k/uL (1.0-4.8); Monocytes # (M) 0.45 k/uL (0-1.0); Neutrophils % (M) 64 %; Nucleated Red Blood Cells 0 /100 WBC (0-0); Total Cells Counted 100
[2022-10-12] MEDS: PREGABALIN 50 MG CAP PO SCH ×3 (10:22→20:57)
[2022-10-12] MEDS: HYDROmorphone 0.5 MG/0.5 ML SYRINGE IVP PRN ×2 (10:22→20:55)
--- NOTE | 2022-10-12 10:58 | US ---
EXAMINATION TYPE: US abdomen limited DATE OF EXAM: 10/12/2022 COMPARISON: 02/27/2022 CLINICAL INDICATION: Male, 57 years old with history of r/o bile duct obstruction; TECHNIQUE: Multiple sonographic images of the right upper quadrant are obtained. FINDINGS: EXAM MEASUREMENTS: Liver Length: 17.2 cm Gallbladder Wall: 0.3 cm Right Kidney: 10.6 x 5.5 x 5.0 cm SODA FLAKER NOTES:Technical limitations, altered mental status and confusion Pancreas: Obscured by bowel gas Liver: limited views intercostally Gallbladder: no evidence of stones as visualized Evidence for sonographic Lunsford's sign: no CBD: Obscured by overlying bowel gas Right Kidney: no evidence of hydronephrosis IMPRESSION: Liver increased in echo pattern correlate for hepatic steatosis or hepatocellular disease.
[2022-10-12 12:09] LABS: Glucose,Whole Blood 203 mg/dL (70-110)
--- NOTE | 2022-10-12 12:39 | P.PN ---
Subjective Progress Note Date: 10/12/22 HISTORY OF PRESENT ILLNESS: This is a 49-year-old male with a past medical history significant for hyperlipidemia, hypertension, diabetes, alcohol abuse, nicotine dependence, anxiety, bipolar disorder, depression, PTSD, and schizoaffective disorder. Patient follows in the office with Dr. Morton has not been to the office since May 2020. We have been asked to see the patient in consultation for chest pain. Patient examined at the bedside. Patient states he began having chest pain and shortness of breath over the last 24 hours. At the time of examination, the patient denies having any chest pain or pressure. He continues to report mild shortness of breath. Patient was found to have minimally elevated troponins and elevated d-dimer. He underwent a CTA which was negative for pulmonary embolism. * EKG reveals sinus tachycardia with a heart rate of 126 * Chest xray no acute cardiopulmonary disease * Laboratory data: WBC 7.7. Hemoglobin 13.8. Platelet count 425. Sodium 128. Potassium 4.6. BUN 24. Creatinine 1.03. Troponin 0.064. ProBNP 927. Lipase 425. * Current home cardiac medications include propanolol 40 mg twice a day, aspirin 81 mg daily, and Pravachol 40 mg at night * Most recent echocardiogram obtained in September 2021 revealing ejection fraction 60-65%, mild TR * Cardiac catheterization history: May 2020 revealing normal coronary arteries 10/12/2022 Patient examined this morning at the bedside. Patient is currently going through alcohol withdrawal. There is a security public safety officer at the bedside. Patient denies any chest pain or pressure. He denies any shortness of breath. He remains on IV heparin. Troponins resulted at 0.064. 0.059. 0.057. Echocardiogram completed revealing an ejection fraction 50-55% without any noted wall motion abnormalities. Small pericardial effusion. PHYSICAL EXAM: VITAL SIGNS: Reviewed. GENERAL: Well-developed in no acute distress. HEENT: Head is normocephalic. Pupils are equal, round. Sclerae anicteric. Mucous membranes of the mouth are moist. Neck supple. No JVD or thyromegaly LUNGS: Respirations even and unlabored. Lungs essentially clear to auscultation bilaterally. HEART: Regular rate and rhythm. S1 and S2 heard. ABDOMEN: Soft. Nondistended. Nontender. EXTREMITIES: Normal range of motion. No clubbing or cyanosis. Peripheral pulses intact. No lower extremity edema NEUROLOGIC: Awake and alert. Oriented x 3. ASSESSMENT: Chest pain and shortness of breath 24 hours Abnormal troponins, unclear etiology Normal coronary arteries, per cardiac catheterization in 2020 Elevated d-dimer, CT negative for pulmonary embolism Hyponatremia Elevated lipase Hyperlipidemia Hypertension Diabetes History of alcohol abuse Nicotine dependence Anxiety Bipolar disorder Depression PTSD Schizoaffective disorder PLAN: Discontinue IV heparin Continue with medical management at this time Recommend abstinence from alcohol Recommend outpatient stress testing once patient's acute issues have resolved Further recommendations pending patient's course Nurse practitioner note has been reviewed by physician. Signing provider agrees with the documented findings, assessment, and plan of care. Objective - Vital Signs Vital signs: Vital Signs Temp 97.6 F 10/12/22 11:47 Pulse 91 10/12/22 11:47 Resp 16 10/12/22 11:47 BP 123/75 10/12/22 11:47 Pulse Ox 97 10/12/22 11:47 FiO2 Intake & Output 10/11/22 10/12/22 10/12/22 18:59 06:59 18:59 Intake Total 75.724 Balance 75.724 Weight 79.379 kg Intake: Intake, IV Titration 75.724 Amount Heparin Sod,Pork in 0.45% 75.724 NaCl 25,000 unit In 0.45 % NaCl 1 250ml.bag @ 12 UNITS/KG/HR 9.525 mls/hr IV .Q24H [facility] Rx#: [id number] Other: Voiding Method Toilet Toilet # Voids 2 - Labs CBC & Chem 7: 10/12/22 06:39 10/12/22 06:39 Labs: Abnormal Lab Results - Last 24 Hours (Table) 10/11/22 10/11/22 10/11/22 Range/Units 16:18 16:21 19:40 RBC (4.30-5.90) m/uL Hgb (13.0-17.5) gm/dL Hct (39.0-53.0) % APTT (22.0-30.0) sec Sodium (137-145) mmol/L Carbon Dioxide (22-30) mmol/L BUN (9-20) mg/dL Glucose (74-99) mg/dL POC Glucose (mg/dL) 379 H (70-110) mg/dL Hemoglobin A1c (0.0-6.0) % Alkaline Phosphatase (38-126) U/L Troponin I 0.059 H* 0.057 H* (0.000-0.034) ng/mL Lipase (23-300) U/L 10/11/22 10/11/22 10/12/22 Range/Units 19:40 20:29 06:06 RBC (4.30-5.90) m/uL Hgb (13.0-17.5) gm/dL Hct (39.0-53.0) % APTT 21.3 L (22.0-30.0) sec Sodium (137-145) mmol/L Carbon Dioxide (22-30) mmol/L BUN (9-20) mg/dL Glucose (74-99) mg/dL POC Glucose (mg/dL) 269 H 231 H (70-110) mg/dL Hemoglobin A1c (0.0-6.0) % Alkaline Phosphatase (38-126) U/L Troponin I (0.000-0.034) ng/mL Lipase (23-300) U/L 10/12/22 10/12/22 10/12/22 Range/Units 06:39 06:39 06:39 RBC 4.08 L (4.30-5.90) m/uL Hgb 12.5 L (13.0-17.5) gm/dL Hct 36.1 L (39.0-53.0) % APTT (22.0-30.0) sec Sodium 132 L (137-145) mmol/L Carbon Dioxide 18 L (22-30) mmol/L BUN 25 H (9-20) mg/dL Glucose 221 H (74-99) mg/dL POC Glucose (mg/dL) (70-110) mg/dL Hemoglobin A1c 7.7 H (0.0-6.0) % Alkaline Phosphatase 141 H (38-126) U/L Troponin I (0.000-0.034) ng/mL Lipase 359 H (23-300) U/L 10/12/22 10/12/22 Range/Units 06:39 12:07 RBC (4.30-5.90) m/uL Hgb (13.0-17.5) gm/dL Hct (39.0-53.0) % APTT 20.8 L (22.0-30.0) sec Sodium (137-145) mmol/L Carbon Dioxide (22-30) mmol/L BUN (9-20) mg/dL Glucose (74-99) mg/dL POC Glucose (mg/dL) 203 H (70-110) mg/dL Hemoglobin A1c (0.0-6.0) % Alkaline Phosphatase (38-126) U/L Troponin I (0.000-0.034) ng/mL Lipase (23-300) U/L
[2022-10-12] MEDS ORDERED: OLANZapine 5 MG TAB PO PRN (14:29)
--- NOTE | 2022-10-12 14:37 | P.CN ---
Psychiatric Consult - . Consult date: 10/12/22 Consult:: 10/12/22 13:55 History & Physical: IDENTIFYING DATA: Andrea is a 57-year-old male admitted to the medical floors for chest pain and NSTEMI reason for consultation: Depression HISTORY OF PRESENT ILLNESS: Patient was seen today for psychiatric consultation on medical floors. Patient was admitted to the hospital on 10/11. Patient was having chest pain and shortness of breath on admission. Patient was found to have a and STEMI and cardiology has been following along. Patient had a one-to-one sitter today. He was agreeable to speak to director underwriter sales today at the bedside. Patient appeared to be mildly confused initially during conversation and had mild disorganization of his speech. He was mumbling at times. He claims that his chest pain has improved. He was denying any depression or any anxiety today. He did not have any other complaints or issues. He states that his been sleeping about 6-8 hours. He claims that his appetite is been fair. He states that he is drinking about a pint of alcohol or vodka per day. He is currently living at a three-quarter home. He is denying any withdrawal symptoms at this time. Patient's daughter states that last time patient was agitated c onfused and pulling on his IVs. Patient is denying any suicidal or homicidal ideations intent or plan. Denying any auditory or visual hallucinations. Patient claims that he vapes nicotine products, does not use any other recreational drugs. Patient has a history of using Klonopin Lanse's and also inhalants. After director underwriter sales left the room, patient stood up out of the bed and the bed alarm went off. Patient was asked where he was going and he states that "I just want to get out of the tub" and was getting mildly agitated when attempted to be redirected. PAST PSYCHIATRIC HISTORY: He has a long history of psychiatric illness with multiple psychiatric hospitalizations and last psychiatric admission was in July 2021. According to [facility] his diagnosis he has a bipolar disorder, social anxiety disorder, alcohol use disorder and intellect use disorder and polysubstance abuse. he currently follows up at [facility]. Patient has been on several different psychiatric medications in including Geodon, BuSpar, Klonopin, also, naltrexone, processing, Remeron. Denies any suicide attempts in the past. PAST MEDICAL HISTORY: Diabetes mellitus, back\\hip pain, obstructive sleep apnea ALLERGIES: Thimerosal, neomycin SUBSTANCE USE HISTORY: As per HPI. FAMILY PSYCHIATRIC/SUBSTANCE USE HISTORY: His father had a history of a mental illness. LEGAL HISTORY: He was also in mental health court for legal charges related to inhalant use. SOCIAL HISTORY: His born and raised in [place]. 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 He is on disability related to his mental and physical problems. 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 He quit when the work became too demanding. He is and has one son with whom he has no contact. Currently lives at a three-quarter house MENTAL STATUS EXAM: General Appearance: Patient appears to be bald, has a goatee, several tattoos, stated age is alert, attempts to cooperate however is confused. Patient appears to have fair hygiene and grooming wearing hospital gown with fair eye contact. Behavior: Patient is calmly lying in bed without any agitated behavior. Attempts to cooperate however confused at times Speech: Patient's speech is fluent and nonpressured. Mumbling at times. Mood/Affect: Patient reports their mood is "ok", affect is congruent and constricted Suicidality/Homicidality: Patient denies having any suicidal or homicidal ideation intent or plan. Perceptions: Patient denies any visual hallucinations and denies any auditory hallucinations Though content/process: There is no evidence of any delusional thought content and thought process is linear and goal-directed. [place] Memory and concentration: AOX3, grossly intact for the purposes of this session. Can spell "WORLD" backwards Judgment and insight: poor IMPRESSIONS: Delirium unknown etiology Bipolar disorder Generalized anxiety disorder with panic attacks Alcohol use disorder, currently in withdrawal History of inhalant abuse Nicotine dependence Possible benzodiazepine and opiate abuse PLAN: -At this time patient DOES NOT meet criteria for inpatient psychiatric admission. -Would recommend the following medication changes/additions: Can continue with BuSpar as prescribed, start zyprexa 5 mg qhs for mood stabilization/psychosis, zyprexa prn for agitation, continue with propranolol 40 mg twice a day for anxiety/panic attacks. decrease/taper down librium for etoh withdrawal -CIWA protocol with PRN Ativan for alcohol withdrawal. Continue to monitor vital signs. -river transportation worker to provide patient with outpatient mental health/psychiatry resources for appropriate follow up upon discharge -Arch Cushion Press Operator spoke with patient about substance abuse and the harmful effects on medical and mental health, patient verbally understood and agreed. -Patient claims that he will be going back to [facility] upon discharge. -Communicated plan to patient's nurse -Will continue to follow along tomorrow -Please contact with any questions. 10/12/22 14:37
[2022-10-12] MEDS ORDERED: chlordiazePOXIDE 25 MG CAP PO SCH (16:00)
[2022-10-12 17:02] LABS: Glucose,Whole Blood 134 mg/dL (70-110)
--- NOTE | 2022-10-12 18:53 | P.PN ---
Subjective Progress Note Date: 10/12/22 (delayed charting seen at 0946) Patient is a 57-year-old male with hypertension, hyperlipidemia, type 2 diabetes mellitus, chronic back pain, COPD, tobacco abuse, sleep apnea and not able to tolerate CPAP who presetend for chest pain and shortness of breath. He was recently admitted last month for anxiety with panic attacks and alcoholic pancreatitis. On that admission he was started on propanolol. In the ED he was tachycardic. Laboratory analysis was remarkable for Sodium 128, chloride 91, bicarbonate 14, alkaline phosphatase 160, glucose 280, troponin 0.064 and alcohol less than 10, d-dimer 8.5. CTA chest negative for pulmonary embolism. Lipase 424. Patient was admitted and cardiology was consulted. Started on a heparin drip, IV fluids, and CIWA protocol. They recommneded stress test vs cath. Patient seen and examined at bedside. He complained of upper abdominal lower chest pain. He denies any shortness of breath. He is having some alcohol withdrawal symptoms with fidgeting and shaking. He has some nausea but no vomiting. Vital signs reviewed General: nontoxic, no distress, appears at stated age Cardiovascular: S1S2 reg, no murmur, positive posterior tibial pulse bilateral, Lungs: Decreased breath sounds bilateral, no rhonchi, no rales , no accessory muscle use Abdominal: soft, nontender to palpation, no guarding, no appreciable organomegaly Ext: no gross muscle atrophy, no edema, no contractures Neuro: CN II-XI grossly intact, no focal neuro deficits Psych: Alert, oriented 3, appropriate affect Assessment: Chest pain Acute alcohol pancreatitis Elevated troponin suspect type II VA from tachycardia Acute on chronic elevated alkaline phosphatase likely due to alcohol abuse. Alcohol withdrawal secondary to alcohol dependency Diabetes mellitus type 2 with A1c 7.7 Metabolic acidosis suspect due to alcoholic ketoacidosis Acute on chronic depression Mild hypovolemic hyponatremia Medication noncompliance History of benzodiazepine withdrawal Tobacco abuse Imaging: Abdominal view-increase echo pattern in the liver consistent with hepatic steatosis Data Review: Vital signs reviewed temperature 97.9, pulse 101, history of 16, blood pressure 102/77, O2 sat 96% on room air Laboratory analysis reviewed hemoglobin 12.5, hematocrit 36.6, PTT 20, sodium 132, carbon dioxide 18, anion gap 14, BUN 25, creatinine 1.01, A1c 7.7 Blood sugars reviewed and am fasting was 221 Plan: -Start Librium 20 mg 3 times daily, continue with CIWA, continue with thiamine 100 mg daily and fourth acid 1 mg daily -Resume home [place] 7.5, 325, BuSpar 15 mg 3 times daily, gabapentin decreased to 50 mg 3 times daily, propranolol 40 mg daily -Continue with IV fluids -Transition from morphine to Dilaudid for pain control apple 0.5 or 1 mg IV depending on severity of pain -Psychiatry note reviewed: Patient does not meet criteria for inpatient psychiatric admission, recommend starting the proximal and propranolol 40 mg twice daily -Cardiology reviewed discontinue IV heparin, outpatient stress testing once patient's acute issues have resolved - Sliding-scale insulin. Metformin and Glucotrol on hold. DVT prophylaxis: Heparin Discussed with: Patient, nursing Anticipated discharge date: Pending clinical course Anticipated discharge place: Pending clinical course This dictation was prepared using [employer] voice recognition software. Though every attempt is made to correct errors during during dictation some may still exist. Objective - Vital Signs Vital signs: Vital Signs Temp 98.4 F 10/12/22 15:43 Pulse 91 10/12/22 15:43 Resp 18 10/12/22 15:43 BP 109/75 10/12/22 15:43 Pulse Ox 97 10/12/22 15:43 FiO2 Intake & Output 10/11/22 10/12/22 10/12/22 18:59 06:59 18:59 Intake Total 75.724 780 Output Total 350 Balance 75.724 430 Weight 79.379 kg Intake: Intake, IV Titration 75.724 780 Amount Heparin Sod,Pork in 0.45% 75.724 NaCl 25,000 unit In 0.45 % NaCl 1 250ml.bag @ 12 UNITS/KG/HR 9.525 mls/hr IV .Q24H [facility] Rx#: [id number] Sodium Chloride 0.9% 1, 780 000 ml @ 130 mls/hr IV . [id number] [facility] Rx#:[id number] Output: Urine 350 Other: Voiding Method Toilet Toilet # Voids 2 - Labs CBC & Chem 7: 10/12/22 06:39 10/12/22 06:39 Labs: Abnormal Lab Results - Last 24 Hours (Table) 10/11/22 10/11/22 10/11/22 Range/Units 19:40 19:40 20:29 RBC (4.30-5.90) m/uL Hgb (13.0-17.5) gm/dL Hct (39.0-53.0) % APTT 21.3 L (22.0-30.0) sec Sodium (137-145) mmol/L Carbon Dioxide (22-30) mmol/L BUN (9-20) mg/dL Glucose (74-99) mg/dL POC Glucose (mg/dL) 269 H (70-110) mg/dL Hemoglobin A1c (0.0-6.0) % Alkaline Phosphatase (38-126) U/L Troponin I 0.057 H* (0.000-0.034) ng/mL Lipase (23-300) U/L 10/12/22 10/12/22 10/12/22 Range/Units 06:06 06:39 06:39 RBC 4.08 L (4.30-5.90) m/uL Hgb 12.5 L (13.0-17.5) gm/dL Hct 36.1 L (39.0-53.0) % APTT (22.0-30.0) sec Sodium (137-145) mmol/L Carbon Dioxide (22-30) mmol/L BUN (9-20) mg/dL Glucose (74-99) mg/dL POC Glucose (mg/dL) 231 H (70-110) mg/dL Hemoglobin A1c 7.7 H (0.0-6.0) % Alkaline Phosphatase (38-126) U/L Troponin I (0.000-0.034) ng/mL Lipase (23-300) U/L 10/12/22 10/12/22 10/12/22 Range/Units 06:39 06:39 12:07 RBC (4.30-5.90) m/uL Hgb (13.0-17.5) gm/dL Hct (39.0-53.0) % APTT 20.8 L (22.0-30.0) sec Sodium 132 L (137-145) mmol/L Carbon Dioxide 18 L (22-30) mmol/L BUN 25 H (9-20) mg/dL Glucose 221 H (74-99) mg/dL POC Glucose (mg/dL) 203 H (70-110) mg/dL Hemoglobin A1c (0.0-6.0) % Alkaline Phosphatase 141 H (38-126) U/L Troponin I (0.000-0.034) ng/mL Lipase 359 H (23-300) U/L 10/12/22 Range/Units 17:00 RBC (4.30-5.90) m/uL Hgb (13.0-17.5) gm/dL Hct (39.0-53.0) % APTT (22.0-30.0) sec Sodium (137-145) mmol/L Carbon Dioxide (22-30) mmol/L BUN (9-20) mg/dL Glucose (74-99) mg/dL POC Glucose (mg/dL) 134 H (70-110) mg/dL Hemoglobin A1c (0.0-6.0) % Alkaline Phosphatase (38-126) U/L Troponin I (0.000-0.034) ng/mL Lipase (23-300) U/L
[2022-10-12 20:17] LABS: Glucose,Whole Blood 141 mg/dL (70-110)
[2022-10-12] MEDS: OLANZapine 5 MG TAB PO SCH (20:55)
[2022-10-12] MEDS: PRAVASTATIN SODIUM 40 MG TAB PO SCH (20:57)
[2022-10-12] MEDS: PANTOPRAZOLE 40 MG TABLET PO SCH (20:57)
[2022-10-13 05:50] LABS: Glucose,Whole Blood 161 mg/dL (70-110)
[2022-10-13] MEDS: INSULIN ASPART (NovoLOG) 100 UNIT/ML VIAL SQ SCH ×4 (06:09→21:35)
[2022-10-13] MEDS: SODIUM CHLORIDE 0.9% 1,000 ML IV SCH ×3 (06:10→20:13)
[2022-10-13] MEDS: NICOTINE 21MG/24HR PATCH TRANSDERM SCH (08:40)
[2022-10-13] MEDS: busPIRone HCl 5 MG TAB PO SCH ×2 (08:41→21:34)
[2022-10-13] MEDS: PREGABALIN 50 MG CAP PO SCH ×3 (08:41→21:34)
[2022-10-13] MEDS: PROPRANOLOL 40 MG TAB PO SCH ×2 (08:41→21:35)
[2022-10-13] MEDS: ASPIRIN 81 MG PO SCH (08:42)
[2022-10-13] MEDS: FOLIC ACID 1 MG TAB PO SCH (08:42)
[2022-10-13] MEDS: FERROUS SULFATE 325 MG TAB PO SCH (08:42)
[2022-10-13] MEDS: MULTIVITAMINS, THERA 1 EACH TAB PO SCH (08:42)
[2022-10-13] MEDS: THIAMINE 100 MG TAB PO SCH (08:42)
[2022-10-13 11:50] LABS: Glucose,Whole Blood 219 mg/dL (70-110)
[2022-10-13 12:45] LABS: ALT 35 U/L (4-49); AST 36 U/L (17-59); African American GFR (CKD) >90 (>60 ml/min/1.73 sqM); Albumin 3.1 g/dL (3.5-5.0); Alkaline Phosphatase 112 U/L (38-126); Anion Gap 10 mmol/L; Blood Urea Nitrogen 16 mg/dL (9-20); Calcium 7.9 mg/dL (8.4-10.2); Carbon Dioxide 21 mmol/L (22-30); Chloride 104 mmol/L (98-107); Glucose 223 mg/dL (74-99); Magnesium 1.9 mg/dL (1.6-2.3); Non-African American GFR(CKD) 88 (>60 ml/min/1.73 sqM); Potassium 3.5 mmol/L (3.5-5.1); Sodium 135 mmol/L (137-145); Total Bilirubin 0.4 mg/dL (0.2-1.3); Total Protein 5.7 g/dL (6.3-8.2)
[2022-10-13 12:50] LABS: HCT 32.6 % (39.0-53.0); HGB 10.8 gm/dL (13.0-17.5); MCH 29.6 pg (25.0-35.0); MCHC 33.2 g/dL (31.0-37.0); MCV 89.1 fL (80.0-100.0); Mean Platelet Volume 9.7; Platelet Count 370 k/uL (150-450); RBC 3.65 m/uL (4.30-5.90); RDW 15.2 % (11.5-15.5); WBC 9.7 k/uL (3.8-10.6)
--- NOTE | 2022-10-13 13:57 | P.PN ---
Progress Note - Text Progress Note Date: 10/13/22 Interval History: Patient was seen today for psychiatric follow-up. Patient appeared to be fairly lethargic and was laying in bed. He was awoken by race and sports book writer. He continues to have a sitter at the bedside today. He was fairly concrete however continues to be confused. He states that he has been feeling tired. He attempted to answer most questions appropriately. He does not know where he currently is however he does note that he is in a "some hospital", he does not know today's date he kno ws his full name. He does not know the situation as to why he is in the hospital. He is denying any anxiety or any problems with his mood. States that he slept overnight, does not remember eating this morning. At this time patient denies any suicidal or homical ideations, intent or plan. Patient denies any auditory, visual hallucinations. Patient denies any side effects from the medications and has been compliant with meds. sitter claims that patient was confused earlier and was trying to get up out of bed and had to be redirected. Mental Status Exam: General Appearance: Patient appears to be bald, has a goatee, several tattoos, stated age is lethargice, attempts to cooperate however is confused. Patient appears to have fair hygiene and grooming wearing hospital gown with fair eye contact. Behavior: Patient is calmly lying in bed without any agitated behavior. confused at times Speech: Patient's speech is fluent and nonpressured. Mumbling at times, improving mildly Mood/Affect: Patient reports their mood is "ok", affect is congruent and constricted Suicidality/Homicidality: Patient denies having any suicidal or homicidal ideation intent or plan. Perceptions: Patient denies any visual hallucinations and denies any auditory hallucinations Though content/process: There is no evidence of any delusional thoughts, [place]. confused at times. Memory and concentration: AOX1, does not know the date or his specific location. Cannot spell "WORLD" backwards Judgment and insight: poor IMPRESSIONS: Delirium unknown etiology Bipolar disorder Generalized anxiety disorder with panic attacks Alcohol use disorder, currently in withdrawal History of inhalant abuse Nicotine dependence Possible benzodiazepine and opiate abuse PLAN: -At this time patient DOES NOT meet criteria for inpatient psychiatric admission. -Would recommend the following medication changes/additions: Can continue with BuSpar as prescribed, zyprexa 5 mg qhs for mood stabilization/psychosis, zyprexa prn for agitation, continue with propranolol 40 mg twice a day for anxiety/panic attacks. decrease/taper down librium for etoh withdrawal over the next two days -CIWA protocol with PRN Ativan for alcohol withdrawal. Continue to monitor vital signs. -pack worker supervisor to provide patient with outpatient mental health/psychiatry resources for appropriate follow up upon discharge -Mold Making Plastics Sheets Supervisor spoke with patient about substance abuse and the harmful effects on medical and mental health, patient verbally understood and agreed. -Patient claims that he will be going back to [facility] upon discharge. -Communicated plan to patient's nurse -will follow along only if requested over the weekend. -Please contact with any questions.
[2022-10-13 16:45] LABS: Glucose,Whole Blood 174 mg/dL (70-110)
--- NOTE | 2022-10-13 17:46 | P.PN ---
Subjective Progress Note Date: 10/13/22 (delayed charting seen at 0830) Patient is a 57-year-old male with hypertension, hyperlipidemia, type 2 diabetes mellitus, chronic back pain, COPD, tobacco abuse, sleep apnea and not able to tolerate CPAP who presetend for chest pain and shortness of breath. He was recently admitted last month for anxiety with panic attacks and alcoholic pancreatitis. On that admission he was started on propanolol. In the ED he was tachycardic. Laboratory analysis was remarkable for Sodium 128, chloride 91, bicarbonate 14, alkaline phosphatase 160, glucose 280, troponin 0.064 and alcohol less than 10, d-dimer 8.5. CTA chest negative for pulmonary embolism. Lipase 424. Patient was admitted and cardiology was consulted. Started on a heparin drip, IV fluids, and CIWA protocol. Cardiology recommended outpatient stress test. He was seen by psychiatry and did not meet requirements for inpati ent psychiatric care. He was started on Librium and did well. His diet was slowly advanced. He underwent Abdominal ultrasound which showed increase echo pattern in the liver consistent with hepatic steatosis Patient seen and examined at bedside. Denies any nausea or vomiting. Does report some overall pain and just generalized shakiness. Tolerated a Popsicle well. He complains of being very tired. Vital signs reviewed General: nontoxic, no distress, appears at stated age Cardiovascular: S1S2 reg, no murmur, positive posterior tibial pulse bilateral, Lungs: Decreased breath sounds bilateral, no rhonchi, no rales , no accessory muscle use Abdominal: soft, nontender to palpation, no guarding, no appreciable organomegaly Ext: no gross muscle atrophy, no edema, no contractures Neuro: CN II-XI grossly intact, no focal neuro deficits Psych: Alert, oriented 3, appropriate affect Assessment: Chest pain Acute alcohol pancreatitis Elevated troponin due to type II IA from tachycardia Acute on chronic elevated alkaline phosphatase likely due to alcohol abuse. Alcohol withdrawal secondary to alcohol dependency Diabetes mellitus type 2 with A1c 7.7 Metabolic acidosis suspect due to alcoholic ketoacidosis Acute on chronic depression Mild hypovolemic hyponatremia Medication noncompliance History of benzodiazepine withdrawal Tobacco abuse Imaging: none new Data Review: Vital signs reviewed and temperature 97.9, pulse 84, respirations 16, blood pressure 110/77, O2 sat 96% on room air Laboratory analysis reviewed and hemoglobin 10.8, hematocrit 32.6, sodium 135, carbon dioxide 21, blood sugar 223, Plan: --Continue with CIWA protocol, thiamine, folic acid. Librium decreased to 10 mg 3 times daily. -Increase diet to clear liquids -Continue with Dilaudid 0.5-1 mg based on scale as needed for pain -Continue [place] 7.5, 325, BuSpar 15 mg 3 times daily, gabapentin decreased to 50 mg 3 times daily, propranolol 40 mg daily -Continue with IV fluids -Psychiatry note reviewed: Patient does not meet criteria for inpatient psychiatric admission,will follow as needed -Cardiology signed off: outpatient stress test - Sliding-scale insulin. Metformin and Glucotrol on hold. Start Levemir 10 units at night. DVT prophylaxis: Heparin Discussed with: Patient, nursing Anticipated discharge date: Pending clinical course Anticipated discharge place: Pending clinical course This dictation was prepared using [employer] voice recognition software. Though every attempt is made to correct errors during during dictation some may still exist. Objective - Vital Signs Vital signs: Vital Signs Temp 98.3 F 10/13/22 16:00 Pulse 88 10/13/22 16:00 Resp 18 10/13/22 16:00 BP 108/76 10/13/22 16:00 Pulse Ox 99 10/13/22 16:00 FiO2 21 10/13/22 08:15 Intake & Output 10/12/22 10/13/22 10/13/22 18:59 06:59 18:59 Intake Total 780 160 400 Output Total 350 675 600 Balance 430 -515 -200 Intake: Intake, IV Titration 780 Amount Sodium Chloride 0.9% 1, 780 000 ml @ 130 mls/hr IV . Q7H42M [facility] Rx#:[id number] Oral 160 400 Output: Urine 350 675 600 Other: Voiding Method Toilet Toilet Toilet # Voids 1 1 - Labs CBC & Chem 7: 10/13/22 11:29 10/13/22 11:29 Labs: Abnormal Lab Results - Last 24 Hours (Table) 10/12/22 10/13/22 10/13/22 Range/Units 20:15 05:49 11:29 RBC 3.65 L (4.30-5.90) m/uL Hgb 10.8 L (13.0-17.5) gm/dL Hct 32.6 L (39.0-53.0) % Sodium (137-145) mmol/L Carbon Dioxide (22-30) mmol/L Glucose (74-99) mg/dL POC Glucose (mg/dL) 141 H 161 H (70-110) mg/dL Calcium (8.4-10.2) mg/dL Phosphorus (2.5-4.5) mg/dL Total Protein (6.3-8.2) g/dL Albumin (3.5-5.0) g/dL 10/13/22 10/13/22 10/13/22 Range/Units 11:29 11:48 16:42 RBC (4.30-5.90) m/uL Hgb (13.0-17.5) gm/dL Hct (39.0-53.0) % Sodium 135 L (137-145) mmol/L Carbon Dioxide 21 L (22-30) mmol/L Glucose 223 H (74-99) mg/dL POC Glucose (mg/dL) 219 H 174 H (70-110) mg/dL Calcium 7.9 L (8.4-10.2) mg/dL Phosphorus 2.0 L (2.5-4.5) mg/dL Total Protein 5.7 L (6.3-8.2) g/dL Albumin 3.1 L (3.5-5.0) g/dL
[2022-10-13 19:47] LABS: Glucose,Whole Blood 230 mg/dL (70-110)
[2022-10-13] MEDS: PANTOPRAZOLE 40 MG TABLET PO SCH (21:34)
[2022-10-13] MEDS: PRAVASTATIN SODIUM 40 MG TAB PO SCH (21:34)
[2022-10-13] MEDS: OLANZapine 5 MG TAB PO SCH (21:34)
[2022-10-13] MEDS: INSULIN DETEMIR (LEVEMIR) 100 UNIT/ML SYR SQ SCH (21:35)
[2022-10-13] MEDS: HYDROcodone/APAP 7.5-325MG 1 EACH TAB PO PRN (21:42)
--- NOTE | 2022-10-13 23:53 | PN ---
PROGRESS NOTE SUBJECTIVE: This 57-year-old gentleman was initially admitted to hospital with shortness of breath and elevated D-dimer. Had a CT scan of the chest that was negative for pulmonary embolism. The day after his initial admission, the patient developed alcohol withdrawal. This morning he is feeling better and is currently awaiting a psych evaluation. An echocardiogram showed normal LV systolic function with mild pericardial effusion. He denies chest pain or difficulty in breathing. OBJECTIVE: GENERAL: Comfortable at rest. VITAL SIGNS: Stable. CHEST: Reveals good air entry bilaterally. HEART: Reveals first and second heart sounds. No gallop, no murmur. ABDOMEN: Soft. EXTREMITIES: Did not reveal any edema. Peripheral pulses are felt. ASSESSMENT: 1. Chest pain. 2. Elevated D-dimer. 3. Alcohol withdrawal. PLAN: Echocardiogram shows normal wall motion and LV function. Once he is more stable, I will consider performing a stress test on him. MINI / ANAMN: [id number] /
[2022-10-14] MEDS: SODIUM CHLORIDE 0.9% 1,000 ML IV SCH ×2 (02:37→12:05)
[2022-10-14] MEDS: HYDROcodone/APAP 7.5-325MG 1 EACH TAB PO PRN ×3 (03:02→20:41)
[2022-10-14 06:13] LABS: Glucose,Whole Blood 159 mg/dL (70-110)
[2022-10-14] MEDS: INSULIN ASPART (NovoLOG) 100 UNIT/ML VIAL SQ SCH ×4 (06:52→20:40)
[2022-10-14] MEDS: PROPRANOLOL 40 MG TAB PO SCH ×2 (07:40→20:40)
[2022-10-14] MEDS: NICOTINE 21MG/24HR PATCH TRANSDERM SCH (07:40)
[2022-10-14] MEDS: FOLIC ACID 1 MG TAB PO SCH (07:41)
[2022-10-14] MEDS: busPIRone HCl 5 MG TAB PO SCH ×2 (07:41→20:39)
[2022-10-14] MEDS: ASPIRIN 81 MG PO SCH (07:41)
[2022-10-14] MEDS: MULTIVITAMINS, THERA 1 EACH TAB PO SCH (07:41)
[2022-10-14] MEDS: PREGABALIN 50 MG CAP PO SCH ×3 (07:41→20:40)
[2022-10-14] MEDS: FERROUS SULFATE 325 MG TAB PO SCH (07:41)
[2022-10-14] MEDS: THIAMINE 100 MG TAB PO SCH (07:41)
[2022-10-14 07:45] LABS: HCT 38.9 % (39.0-53.0); HGB 12.6 gm/dL (13.0-17.5); MCH 30.1 pg (25.0-35.0); MCHC 32.3 g/dL (31.0-37.0); MCV 93.4 fL (80.0-100.0); Mean Platelet Volume 8.5; Platelet Count 357 k/uL (150-450); RBC 4.17 m/uL (4.30-5.90); RDW 15.1 % (11.5-15.5); WBC 9.1 k/uL (3.8-10.6)
[2022-10-14 07:57] LABS: African American GFR (CKD) >90 (>60 ml/min/1.73 sqM); Anion Gap 11 mmol/L; Blood Urea Nitrogen 10 mg/dL (9-20); Calcium 8.5 mg/dL (8.4-10.2); Carbon Dioxide 24 mmol/L (22-30); Chloride 103 mmol/L (98-107); Glucose 156 mg/dL (74-99); Magnesium 1.8 mg/dL (1.6-2.3); Non-African American GFR(CKD) >90 (>60 ml/min/1.73 sqM); Phosphorus 2.7 mg/dL (2.5-4.5); Potassium 3.4 mmol/L (3.5-5.1); Sodium 138 mmol/L (137-145)
[2022-10-14] MEDS ORDERED: POTASSIUM CHLORIDE ER 20 MEQ TAB.ER PO STA (08:15)
[2022-10-14 11:44] LABS: Glucose,Whole Blood 209 mg/dL (70-110)
[2022-10-14] MEDS ORDERED: HYDROcodone/APAP 7.5-325MG 1 EACH TAB PO ONE (13:29)
--- NOTE | 2022-10-14 13:35 | P.PN ---
Subjective Progress Note Date: 10/14/22 (delayed charting seen at 0930) Patient is a 57-year-old male with hypertension, hyperlipidemia, type 2 diabetes mellitus, chronic back pain, COPD, tobacco abuse, sleep apnea and not able to tolerate CPAP who presetend for chest pain and shortness of breath. He was recently admitted last month for anxiety with panic attacks and alcoholic pancreatitis. On that admission he was started on propanolol. In the ED he was tachycardic. Laboratory analysis was remarkable for Sodium 128, chloride 91, bicarbonate 14, alkaline phosphatase 160, glucose 280, troponin 0.064 and alcohol less than 10, d-dimer 8.5. CTA chest negative for pulmonary embolism. Lipase 424. Patient was admitted and cardiology was consulted. Started on a heparin drip, IV fluids, and CIWA protocol. Cardiology recommended outpatient stress test. He was seen by psychiatry and did not meet requirements for inpati ent psychiatric care. He was started on Librium and did well. His diet was slowly advanced. He underwent Abdominal ultrasound which showed increase echo pattern in the liver consistent with hepatic steatosis. He continued to improve. Patient seen and examined at bedside. He tolerated his clear liquid diet well. His overall body pains are getting better. He denies any nausea or vomiting. Vital signs reviewed General: nontoxic, no distress, appears at stated age Cardiovascular: S1S2 reg, no murmur, positive posterior tibial pulse bilateral, Lungs: Decreased breath sounds bilateral, no rhonchi, no rales , no accessory muscle use Abdominal: soft, nontender to palpation, no guarding, no appreciable organomegaly Ext: no gross muscle atrophy, no edema, no contractures Neuro: CN II-XI grossly intact, no focal neuro deficits Psych: Alert, oriented 3, appropriate affect Assessment: Chest pain Acute alcohol pancreatitis Elevated troponin due to type II MD from tachycardia Acute on chronic elevated alkaline phosphatase likely due to alcohol abuse. Alcohol withdrawal secondary to alcohol dependency Diabetes mellitus type 2 with A1c 7.7 Metabolic acidosis suspect due to alcoholic ketoacidosis Acute on chronic depression Mild hypovolemic hyponatremia Medication noncompliance History of benzodiazepine withdrawal Tobacco abuse Imaging: none new Data Review: Vital signs reviewed temperature 98.1, pulse 81, respirations 17, blood pressure 102/77, O2 sat 100% on room air Labs reviewed and remarkable for hemoglobin 12.6, potassium 3.4 Plan: - Patient had increased pain after eating lunch, will continue with low-fat d iet. Likely home tomorrow. - Stop CIWA, has not needed ativan in >24 hours - Librium to 20 mg BID today. -Potassium 40 mEq 1 now -Continue with Dilaudid 0.5-1 mg based on scale as needed for pain -Continue [place] 7.5, 325, BuSpar 15 mg 3 times daily, gabapentin decreased to 50 mg 3 times daily, propranolol 40 mg daily -off IV fluids -Psychiatry note reviewed: Patient does not meet criteria for inpatient psychiatric admission,will follow as needed -Cardiology signed off: outpatient stress test - Sliding-scale insulin. Metformin and Glucotrol on hold. Levemir 10 units at night. Anticipate home in AM DVT prophylaxis: Heparin Discussed with: Patient, nursing Anticipated discharge date: Pending clinical course Anticipated discharge place: Pending clinical course This dictation was prepared using [employer] voice recognition software. Though every attempt is made to correct errors during during dictation some may still exist. Objective - Vital Signs Vital signs: Vital Signs Temp 98.1 F 10/14/22 07:04 Pulse 81 10/14/22 07:04 Resp 17 10/14/22 07:04 BP 102/77 10/14/22 07:04 Pulse Ox 100 10/14/22 07:04 FiO2 21 10/13/22 08:15 Intake & Output 10/13/22 10/14/22 10/14/22 18:59 06:59 18:59 Intake Total 400 Output Total 600 700 Balance -200 -700 Intake: Oral 400 Output: Urine 600 700 Other: Voiding Method Toilet Toilet # Voids 1 1 - Labs CBC & Chem 7: 10/14/22 05:49 10/14/22 05:49 Labs: Abnormal Lab Results - Last 24 Hours (Table) 10/13/22 10/13/22 10/14/22 Range/Units 16:42 19:44 05:49 RBC 4.17 L (4.30-5.90) m/uL Hgb 12.6 L (13.0-17.5) gm/dL Hct 38.9 L (39.0-53.0) % Potassium (3.5-5.1) mmol/L Glucose (74-99) mg/dL POC Glucose (mg/dL) 174 H 230 H (70-110) mg/dL 10/14/22 10/14/22 10/14/22 Range/Units 05:49 06:11 11:43 RBC (4.30-5.90) m/uL Hgb (13.0-17.5) gm/dL Hct (39.0-53.0) % Potassium 3.4 L (3.5-5.1) mmol/L Glucose 156 H (74-99) mg/dL POC Glucose (mg/dL) 159 H 209 H (70-110) mg/dL
--- NOTE | 2022-10-14 14:34 | PN ---
PROGRESS NOTE SUBJECTIVE: The patient is doing better, ambulating with help, his chest pain had resolved. An echocardiogram showed normal LV function and wall motion. OBJECTIVE: GENERAL: Today, he is comfortable at rest. VITAL SIGNS: Stable. NECK: There is no jugular venous distention. CHEST: Reveals good air entry bilaterally. HEART: Reveals first and second heart sounds. No gallop. EXTREMITIES: Exam of extremities did not reveal any edema. Peripheral pulses are felt. ASSESSMENT: Atypical chest pain, myocardial infarction ruled out. Echo looks normal. I will see him back in the office after discharge and arrange an outpatient stress test. MMODL / IJN: [id number] /
[2022-10-14 16:42] LABS: Glucose,Whole Blood 219 mg/dL (70-110)
[2022-10-14 20:32] LABS: Glucose,Whole Blood 240 mg/dL (70-110)
[2022-10-14] MEDS: PANTOPRAZOLE 40 MG TABLET PO SCH (20:39)
[2022-10-14] MEDS: PRAVASTATIN SODIUM 40 MG TAB PO SCH (20:39)
[2022-10-14] MEDS: INSULIN DETEMIR (LEVEMIR) 100 UNIT/ML SYR SQ SCH (20:40)
[2022-10-14] MEDS: OLANZapine 5 MG TAB PO SCH (20:40)
[2022-10-14] MEDS ORDERED: ALPRAZolam 0.5 MG TAB PO STA (22:53)
[2022-10-15 06:57] LABS: Glucose,Whole Blood 233 mg/dL (70-110)
[2022-10-15] MEDS: INSULIN ASPART (NovoLOG) 100 UNIT/ML VIAL SQ SCH ×4 (06:58→20:56)
[2022-10-15] MEDS: busPIRone HCl 5 MG TAB PO SCH ×2 (07:20→20:57)
[2022-10-15] MEDS: NICOTINE 21MG/24HR PATCH TRANSDERM SCH (07:20)
[2022-10-15] MEDS: MULTIVITAMINS, THERA 1 EACH TAB PO SCH (07:20)
[2022-10-15] MEDS: FERROUS SULFATE 325 MG TAB PO SCH (07:20)
[2022-10-15] MEDS: PROPRANOLOL 40 MG TAB PO SCH ×2 (07:21→20:57)
[2022-10-15] MEDS: THIAMINE 100 MG TAB PO SCH (07:21)
[2022-10-15] MEDS: PREGABALIN 50 MG CAP PO SCH ×3 (07:21→20:58)
[2022-10-15] MEDS: FOLIC ACID 1 MG TAB PO SCH (07:21)
[2022-10-15] MEDS: ASPIRIN 81 MG PO SCH (07:21)
[2022-10-15 11:38] LABS: Glucose,Whole Blood 236 mg/dL (70-110)
[2022-10-15] MEDS: HYDROcodone/APAP 7.5-325MG 1 EACH TAB PO PRN ×2 (13:18→19:14)
[2022-10-15] MEDS ORDERED: ALPRAZolam 0.5 MG TAB PO STA ×2 (13:40→23:00)
--- NOTE | 2022-10-15 14:27 | P.PN ---
Subjective Progress Note Date: 10/15/22 Principal diagnosis: pancreatitis Patient has been having severe stabbing pain in the upper abdomen after eating. He states pain improves after norco. He also states he had episodes of pancreatitis before and it lasted 21 days. No nausea or vomiting. No fevers. Objective - Vital Signs Vital signs: Vital Signs Temp 98.3 F 10/15/22 07:05 Pulse 98 10/15/22 07:05 Resp 18 10/15/22 07:05 BP 125/84 10/15/22 07:05 Pulse Ox 96 10/15/22 07:05 FiO2 21 10/13/22 08:15 Intake & Output 10/14/22 10/15/22 10/15/22 18:59 06:59 18:59 Intake Total 300 Output Total 700 Balance -700 300 Intake: Oral 300 Output: Urine 700 Other: Voiding Method Toilet # Voids 520 3 # Bowel Movements 0 - Exam Vital signs reviewed General: nontoxic, no distress, appears at stated age Cardiovascular: S1S2 reg, no murmur, positive posterior tibial pulse bilateral, Lungs: Decreased breath sounds bilateral, no rhonchi, no rales , no accessory muscle use Abdominal: soft, nontender to palpation, no guarding, no appreciable organomegaly Ext: no gross muscle atrophy, no edema, no contractures Neuro: CN II-XI grossly intact, no focal neuro deficits Psych: Alert, oriented 3, appropriate affect - Labs CBC & Chem 7: 10/14/22 05:49 10/14/22 05:49 Labs: Abnormal Lab Results - Last 24 Hours (Table) 10/14/22 10/14/22 10/15/22 Range/Units 16:41 20:30 06:55 POC Glucose (mg/dL) 219 H 240 H 233 H (70-110) mg/dL 10/15/22 Range/Units 11:36 POC Glucose (mg/dL) 236 H (70-110) mg/dL Assessment and Plan Plan: Assessment: Chest pain Acute alcohol pancreatitis Elevated troponin due to type II [place] from tachycardia Acute on chronic elevated alkaline phosphatase likely due to alcohol abuse. Alcohol withdrawal secondary to alcohol dependency Diabetes mellitus type 2 with A1c 7.7 Metabolic acidosis suspect due to alcoholic ketoacidosis Acute on chronic depression Mild hypovolemic hyponatremia Medication noncompliance History of benzodiazepine withdrawal Tobacco abuse Imaging: none new Data Review: Vital signs reviewed Labs reviewed Plan: -Patient had increased pain after eating lunch, will continue with low-fat diet. Likely home tomorrow. -He was given one dose of xanax for anxiety today, all other benzos he was getting for etoh withdrawal discontinued. -Continue with [place] 7.5, 325, BuSpar 15 mg 3 times daily, gabapentin decreased to 50 mg 3 times daily, propranolol 40 mg daily -off IV fluids -Psychiatry note reviewed: Patient does not meet criteria for inpatient psychiatric admission,will follow as needed -Cardiology signed off: outpatient stress test - Sliding-scale insulin. Metformin and Glucotrol on hold. Levemir 10 units at night. Not able to discharge him as he is claiming he still has uncontrolled abdominal pain. Will scale back on diet to full liquids for now. DVT prophylaxis: Heparin Discussed with: Patient, nursing Anticipated discharge date: Pending clinical course Anticipated discharge place: Pending clinical course
[2022-10-15 16:49] LABS: Glucose,Whole Blood 211 mg/dL (70-110)
[2022-10-15 20:11] LABS: Glucose,Whole Blood 191 mg/dL (70-110)
[2022-10-15] MEDS: INSULIN DETEMIR (LEVEMIR) 100 UNIT/ML SYR SQ SCH (20:56)
[2022-10-15] MEDS: OLANZapine 5 MG TAB PO SCH (20:58)
[2022-10-15] MEDS: PRAVASTATIN SODIUM 40 MG TAB PO SCH (20:58)
[2022-10-15] MEDS: PANTOPRAZOLE 40 MG TABLET PO SCH (20:58)
[2022-10-16 05:57] LABS: Glucose,Whole Blood 310 mg/dL (70-110)
[2022-10-16] MEDS: INSULIN ASPART (NovoLOG) 100 UNIT/ML VIAL SQ SCH (06:09)
[2022-10-16] MEDS: HYDROcodone/APAP 7.5-325MG 1 EACH TAB PO PRN (06:17)
[2022-10-16 08:41] VITALS: BP 112/71; PULSE 101; RESP 18; TEMP 98.4
[2022-10-16] MEDS: FOLIC ACID 1 MG TAB PO SCH (09:31)
[2022-10-16] MEDS: PREGABALIN 50 MG CAP PO SCH (09:31)
[2022-10-16] MEDS: PROPRANOLOL 40 MG TAB PO SCH (09:31)
[2022-10-16] MEDS: MULTIVITAMINS, THERA 1 EACH TAB PO SCH (09:31)
[2022-10-16] MEDS: busPIRone HCl 5 MG TAB PO SCH (09:31)
[2022-10-16] MEDS: NICOTINE 21MG/24HR PATCH TRANSDERM SCH (09:31)
[2022-10-16] MEDS: ASPIRIN 81 MG PO SCH (09:31)
[2022-10-16] MEDS: FERROUS SULFATE 325 MG TAB PO SCH (09:31)
[2022-10-16] MEDS: THIAMINE 100 MG TAB PO SCH (09:31)
--- NOTE | 2022-10-16 09:44 | P.DS ---
Providers Date of admission: 10/11/22 11:37 Expected date of discharge: 10/16/22 Attending physician: Ezio Smith MD Consults: 10/11/22 11:37 Consult Physician Urgent Consulting Provider: [facility] Consult Reason/Comments: acute chest pain, elevated trop Do you want consulting provider notified?: Yes 10/11/22 14:49 Consult Physician Routine Consulting Provider: Conrado David Consult Reason/Comments: depression Do you want consulting provider notified?: Yes Primary care physician: Marlen Mobley [facility] Course: Discharge Diagnosis: Acute alcohol pancreatitis Chest pain Elevated troponin due to type II [place] from tachycardia Acute on chronic elevated alkaline phosphatase likely due to alcohol abuse. Alcohol withdrawal secondary to alcohol dependency Diabetes mellitus type 2 with A1c 7.7 Edema left arm due to IV infiltration Metabolic acidosis suspect due to alcoholic ketoacidosis Acute on chronic depression Mild hypovolemic hyponatremia Medication noncompliance History of benzodiazepine withdrawal Tobacco abuse Hospital Course: Patient is a 57-year-old male with hypertension, hyperlipidemia, type 2 diabetes mellitus, chronic back pain, COPD, tobacco abuse, sleep apnea and not able to tolerate CPAP who presetend for chest pain and shortness of breath. He was recently admitted last month for anxiety with panic attacks and alcoholic pancreatitis. On that admission he was started on propanolol. In the ED he was tachycardic. Laboratory analysis was remarkable for Sodium 128, chloride 91, bicarbonate 14, alkaline phosphatase 160, glucose 280, troponin 0.064 and alcohol less than 10, d-dimer 8.5. CTA chest negative for pulmonary embolism. Lipase 424. Patient was admitted and cardiology was consulted. Started on a heparin drip, IV fluids, and CIWA protocol. Cardiology recommended outpatient stress test. He was seen by psychiatry and did not meet requirements for inpatient psychiatric care. He was started on Librium and did well. His diet was slowly advanced. He underwent Abdominal ultrasound which showed increase echo pattern in the liver consistent with hepatic steatosis. He continued to improve slowly. He was tolerating a diet and was determined stable for discharge home. Follow-up: Dr. Sheppard for outaptient stress jenny, off Tirzepatide as known to cause pancreatitis, consider naltrexone if able to maintian sobriety in the outpatient setting. Dr. Mobley on October 30. Patient seen and examined at bedside. Doing well, still feeling tired, abdominal pain is controlled. Vital signs reviewed and stable. General: nontoxic, no distress, appears at stated age Derm: warm, dry Head: atraumatic, normocephalic, symmetric Eyes: EOMI, no lid lag, anicteric sclera Mouth: no lip lesion, mucus membranes moist Cardiovascular: S1S2 reg, no murmur, positive posterior tibial pulse bilateral, Lungs: CTA bilateral, no rhonchi, no rales , no accessory muscle use Abdominal: soft, nontender to palpation, no guarding, no appreciable organomegaly Ext: no gross muscle atrophy, no edema, no contractures, edema left forearm where IV infiltrated Neuro: CN II-XI grossly intact, no focal neuro deficits Psych: Alert, oriented, flat affect A total of 40 minutes of time were spent preparing this complex discharge summary. Patient was discharged on 10/16/22. This dictation was prepared using [employer] voice recognition software. Though every attempt is made to correct errors during during dictation some may still exist. Patient Condition at Discharge: Stable Plan - Discharge Summary Discharge Rx Participant: No New Discharge Prescriptions: New Thiamine [Vitamin B-1] 100 mg PO DAILY #30 tab Folic Acid 1 mg PO DAILY #30 tab OLANZapine [ZyPREXA] 5 mg PO HS #30 tab Continue Mirtazapine [Remeron] 15 mg PO HS 30 Days tab Calcium Carbonate [Tums] 500 mg PO QID PRN 30 Days PRN Reason: Heartburn busPIRone HCL 15 mg PO BID 30 Days tab Aspirin EC [Ecotrin Low Dose] 81 mg PO DAILY 30 Days tab glipiZIDE [Glucotrol] 20 mg PO BID 30 Days tab Ferrous Sulfate [Iron (65 MG Elemental)] 325 mg PO DAILY 30 Days tab Pravastatin Sodium [Pravachol] 40 mg PO HS 30 Days tab Vitamin B Complex 1 cap PO DAILY 30 Days cap Cyclobenzaprine [Flexeril] 10 mg PO TID PRN PRN Reason: Muscle Spasm Propranolol HCl 40 mg PO BID 30 Days #60 tablet metFORMIN HCL [Glucophage] 1,000 mg PO BID 30 Days #60 tab Pantoprazole [Protonix] 40 mg PO HS 30 Days tab Multivitamins, Thera [Multivitamin (formulary)] 1 tab PO DAILY Sennosides/Docusate Sodium [Senna Plus 8.6-50 mg Softgel] 1 tab PO DAILY PRN PRN Reason: Constipation Melatonin 5 mg PO HS PRN PRN Reason: Insomnia Pregabalin [Lyrica] 100 mg PO TID HYDROcodone/APAP 7.5-325MG [[place] 7.5-325] 1 tab PO Q6HR PRN PRN Reason: Pain Discontinued Gabapentin 800 mg PO Q6H Tirzepatide [Mounjaro] 5 mg SQ DIRECTED Naproxen [Naprosyn] 500 mg PO Q12H PRN PRN Reason: Pain Ziprasidone [Geodon] 40 mg PO BID 30 Days cap Magnesium Oxide [Mag-Ox] 400 mg PO DAILY clonazePAM [KlonoPIN] 1 mg PO TID 3 Days #9 tab chlordiazePOXIDE HCl [Librium] 25 mg PO TID 3 Days #9 capsule Discharge Medication List Aspirin EC [Ecotrin Low Dose] 81 mg PO DAILY 30 Days tab 08/17/21 [Rx] Calcium Carbonate [Tums] 500 mg PO QID PRN 30 Days 08/17/21 [Rx] Ferrous Sulfate [Iron (65 MG Elemental)] 325 mg PO DAILY 30 Days tab 08/17/21 [Rx] Mirtazapine [Remeron] 15 mg PO HS 30 Days tab 08/17/21 [Rx] Pantoprazole [Protonix] 40 mg PO HS 30 Days tab 08/17/21 [Rx] Pravastatin Sodium [Pravachol] 40 mg PO HS 30 Days tab 08/17/21 [Rx] Vitamin B Complex 1 cap PO DAILY 30 Days cap 08/17/21 [Rx] busPIRone HCL 15 mg PO BID 30 Days tab 08/17/21 [Rx] glipiZIDE [Glucotrol] 20 mg PO BID 30 Days tab 08/17/21 [Rx] metFORMIN HCL [Glucophage] 1,000 mg PO BID 30 Days #60 tab 08/17/21 [Rx] Multivitamins, Thera [Multivitamin (formulary)] 1 tab PO DAILY 10/07/21 [History] Cyclobenzaprine [Flexeril] 10 mg PO TID PRN 09/11/22 [History] HYDROcodone/APAP 7.5-325MG [[place] 7.5-325] 1 tab PO Q6HR PRN 09/11/22 [History] Melatonin 5 mg PO HS PRN 09/11/22 [History] Pregabalin [Lyrica] 100 mg PO TID 09/11/22 [History] Sennosides/Docusate Sodium [Senna Plus 8.6-50 mg Softgel] 1 tab PO DAILY PRN 09/11/22 [History] Propranolol HCl 40 mg PO BID 30 Days #60 tablet 09/13/22 [Rx] Folic Acid 1 mg PO DAILY #30 tab 10/16/22 [Rx] OLANZapine [ZyPREXA] 5 mg PO HS #30 tab 10/16/22 [Rx] Thiamine [Vitamin B-1] 100 mg PO DAILY #30 tab 10/16/22 [Rx] Follow up Appointment(s)/Referral(s): Marlen Mobley MD [Primary Care Provider] - 10/30/22 1:30 pm (Appointment with UNDER CUTTER Marlen, please ensure follow up with your primary care provider.) [facility] [NON-STAFF] - 1 Week Umang Sheppard MD [STAFF PHYSICIAN] - 1 Week Activity/Diet/Wound Care/Special Instructions: Activity As tolerated Diet: Low fat, carb consistent Special Instructions: Stay off Tirzepatide as it can cause pancreatitis Abstain from alcohol, could discuss with Dr. Mobley the possibility of naltrexone to help maintain sobriety Discharge/Stand Alone Forms: Meetings [place], Who Do I Call?, Community Resources, Outpatient Counseling, Inp Substance Abuse Facilities Discharge Disposition: HOME SELF-CARE
[2022-10-16 11:45] LABS: Glucose,Whole Blood 275 mg/dL (70-110)
--- NOTE | 2022-10-25 16:07 | CDI ---
Documentation Clarification Form Date: From: Cristina Garcia Phone: [phone] Admit Date: 10/11/2022 11:37:00 AM Patient Name: Andrea Elliott Visit Number: [id number] Discharge Date: 10/16/2022 11:58:00 AM ATTENTION: The Clinical Documentation Specialists (CDI) and [facility] Coding Staff appreciate your assistance in clarifying documentation. Please respond to the clarification below the line at the bottom and electronically sign. The CDI & [facility] Coding staff will review the response and follow-up if needed. Please note: Queries are made part of the Legal Health Record. If you have any questions, please contact the author of this message via ITS. Dr. Natalie Byrd "Edema left arm due to IV infiltration" is documented in the Discharge Summary on 10/16 which may lack sufficient clinical evidence/support in the medical record. Additional clarification is requested. History/Risk Factors: "57-year-old male with a past medical history of hypertension, hyperlipidemia, type 2 diabetes mellitus, chronic back pain, COPD, tobacco abuse, sleep apnea and not able to tolerate CPAP who was recently admitted. Patient comes to the ED today because of intermittent sharp chest pain with shortness of breath that started 1 day ago." - Per Admission H&P on 10/11 Clinical Indicators: "Ext: no gross muscle atrophy, no edema, no contractures" - Per Progress Note on 10/12 "Ext: no gross muscle atrophy, no edema, no contractures" - Per Progress Note on 10/13 "Ext: no gross muscle atrophy, no edema, no contractures" - Per Progress Note on 10/14 "Ext: no gross muscle atrophy, no edema, no contractures" - Per Progress Note on 10/15 "Ext: no gross muscle atrophy, no edema, no contractures, edema left forearm where IV infiltrated " - Per Discharge Summary 10/16 IV Line Assessment Per Nursing Documentation: 20 gauge IV in (documented left on 10/12, & and right on 10/14, & 10/12 03:00 - Dry & Intact, Asymptomatic (US guided) 10/13 01:41 - Dry & Intact, Asymptomatic 10/13 14:00 - Dry & Intact, Asymptomatic Patent 10/14 20:45 - Dry & Intact, Asymptomatic Patent 10/15 07:15 - Dry & Intact 10/15 20:56 - Dry & Intact, Asymptomatic Patent Satisfactory 10/16 09:30 - Dry & Intact, Asymptomatic Patent Satisfactory 10/16 11:47 - Discontinued, tip intact, Dressing applied, Asymptomatic 20 gauge IV in Left Forearm Started 10/12 01:55 - Patient removed 10/12 03:00 10/12 01:55 - Asymptomatic Treatment: none documented in chart Please clarify if IV infiltration is a valid diagnosis? [ X ] Yes, IV Infiltration is present as evidence by (additional clinical support): edema left arm [ ] No, IV infiltration is ruled out [ ] Other (please specify diagnosis) [ ] Unable to determine MTDD
== END 2022-10-16 11:58 | disposition home or self-care (01) | DRG 438 ==
LOC: EC 07:52 → 3SCARD 11:37 → 4SSUR 10-14 01:55
PROVIDERS: ADMIT Internal Medicine; ATTEND Internal Medicine
DX: K85.20 Alcohol induced acute pancreatitis without necrosis or infection (principal); I21.A1 Myocardial infarction type 2; I31.39 Other pericardial effusion (noninflammatory); E87.29 Other acidosis; F10.239 Alcohol dependence with withdrawal, unspecified; E87.1 Hypo-osmolality and hyponatremia; F25.9 Schizoaffective disorder, unspecified; K76.0 Fatty (change of) liver, not elsewhere classified; E11.40 Type 2 diabetes mellitus with diabetic neuropathy, unspecified; F31.9 Bipolar disorder, unspecified; J44.9 Chronic obstructive pulmonary disease, unspecified; T80.89XA Other complications following infusion, transfusion and therapeutic injection, initial encounter; E86.1 Hypovolemia; I10 Essential (primary) hypertension; E78.5 Hyperlipidemia, unspecified; Y90.0 Blood alcohol level of less than 20 mg/100 ml; K21.9 Gastro-esophageal reflux disease without esophagitis; K76.9 Liver disease, unspecified; N28.9 Disorder of kidney and ureter, unspecified; G89.29 Other chronic pain; F41.1 Generalized anxiety disorder; F41.0 Panic disorder [episodic paroxysmal anxiety]; F43.10 Post-traumatic stress disorder, unspecified; G47.30 Sleep apnea, unspecified; R00.0 Tachycardia, unspecified; T50.906A Underdosing of unspecified drugs, medicaments and biological substances, initial encounter; Z91.128 Patient's intentional underdosing of medication regimen for other reason; F17.290 Nicotine dependence, other tobacco product, uncomplicated; Z71.6 Tobacco abuse counseling; Z79.82 Long term (current) use of aspirin; Z79.84 Long term (current) use of oral hypoglycemic drugs; Z79.899 Other long term (current) drug therapy; Z96.643 Presence of artificial hip joint, bilateral; Z98.1 Arthrodesis status; Z88.3 Allergy status to other anti-infective agents; Z88.8 Allergy status to other drugs, medicaments and biological substances; Y84.8 Other medical procedures as the cause of abnormal reaction of the patient, or of later complication, without mention of misadventure at the time of the procedure; Y92.230 Patient room in hospital as the place of occurrence of the external cause
CPT/HCPCS: 36415; 71046; 71275; 76705; 80048; 80053; 80320; 83036; 83690; 83735; 83880; 84100; 84484; 85025; 85027; 85379; 85610; 85730; 93005; 93308; 94760; 96372; 96374; 96375; 99291

== ENCOUNTER 2022-10-21 16:26 | Emergency (ER) | payer MEDICARE, OTHER ==
[2022-10-21 16:43] VITALS: BP 169/127; PULSE 107; RESP 18; TEMP 98.2
--- NOTE | 2022-10-21 17:13 | ED ---
General Adult HPI - General Chief complaint: Abdominal Pain Stated complaint: abd pain Time Seen by Provider: 10/21/22 17:08 Source: patient Mode of arrival: wheelchair Limitations: no limitations - History of Present Illness Initial comments: Patient states that he has a history of alcoholic pancreatitis, and he states he was just discharged from the hospital a few days ago after being admitted for pancreatitis. Patient states that he has had worsening epigastric abdominal pain since he was discharged home. Patient states that he has also had nausea and vomiting. Patient states that his last sip of alcohol was 10 days ago. Patient denies drug abuse. Patient denies trauma or injury, fever or chills, headache, focal numbness/weakness/neuro deficit, chest pain or pressure, dyspnea, cough or cold symptoms, palpitations, dizziness, lower abdominal pain, back or flank pain, diarrhea or constipation, bloody or melanotic stool, hematemesis, dysuria/hematuria/urinary frequency/urinary symptoms, leg or calf swelling or pain, or any other symptoms or complaints. - Related Data Home Medications Medication Instructions Recorded Confirmed Multivitamins, Thera [Multivitamin 1 tab PO DAILY 10/07/21 10/11/22 (formulary)] Cyclobenzaprine [Flexeril] 10 mg PO TID PRN 09/11/22 10/11/22 HYDROcodone/APAP 7.5-325MG [[place] 1 tab PO Q6HR PRN 09/11/22 10/11/22 7.5-325] Melatonin 5 mg PO HS PRN 09/11/22 10/11/22 Pregabalin [Lyrica] 100 mg PO TID 09/11/22 10/11/22 Sennosides/Docusate Sodium [[place]enna 1 tab PO DAILY PRN 09/11/22 10/11/22 Plus 8.6-50 mg Softgel] Previous Rx's Medication Instructions Recorded Aspirin EC [Ecotrin Low Dose] 81 mg PO DAILY 30 Days tab 08/17/21 Calcium Carbonate [Tums] 500 mg PO QID PRN 30 Days 08/17/21 Ferrous Sulfate [Iron (65 MG 325 mg PO DAILY 30 Days tab 08/17/21 Elemental)] Mirtazapine [Remeron] 15 mg PO HS 30 Days tab 08/17/21 Pantoprazole [Protonix] 40 mg PO HS 30 Days tab 08/17/21 Pravastatin Sodium [Pravachol] 40 mg PO HS 30 Days tab 08/17/21 Vitamin B Complex 1 cap PO DAILY 30 Days cap 08/17/21 busPIRone HCL 15 mg PO BID 30 Days tab 08/17/21 glipiZIDE [Glucotrol] 20 mg PO BID 30 Days tab 08/17/21 metFORMIN HCL [Glucophage] 1,000 mg PO BID 30 Days #60 tab 08/17/21 Propranolol HCl 40 mg PO BID 30 Days #60 tablet 09/13/22 Folic Acid 1 mg PO DAILY #30 tab 10/16/22 OLANZapine [ZyPREXA] 5 mg PO HS #30 tab 10/16/22 Thiamine [Vitamin B-1] 100 mg PO DAILY #30 tab 10/16/22 Allergies Allergy/AdvReac Type Severity Reaction Status Date / Time thimerosal Allergy Severe Rash/Hives/throat Verified 10/21/22 16:43 swelling neomycin Allergy Rash/Hives Verified 10/21/22 16:43 Review of Systems ROS Statement: Those systems with pertinent positive or pertinent negative responses have been documented in the HPI. ROS Other: All systems not noted in ROS Statement are negative. Past Medical History Past Medical History: Diabetes Mellitus, GERD/Reflux, Hyperlipidemia, Hypertension, Liver Disease, Renal Disease, Sleep Apnea/CPAP/BIPAP Additional Past Medical History / Comment(s): Neuropathy, back pain, no CPAP use, Cirrhosis, "kidneys don't always work right." , pancreatitis History of Any Multi-Drug Resistant Organisms: None Reported Past Surgical History: Heart Catheterization, Joint Replacement, Orthopedic Surgery Additional Past Surgical History / Comment(s): Bilateral cataracts removed, bilateral hip replacements, right heal surgery with screws/plates/pins placed, L2-L4 cage infusion, Past Anesthesia/Blood Transfusion Reactions: No Reported Reaction Past Psychological History: Anxiety, Bipolar, Depression, PTSD, Schizoaffective Disorder Smoking Status: Current every day smoker, Vaper Past Alcohol Use History: Abuse, Daily, Heavy - Past Family History Father Family Medical History: Myocardial Infarction (CT) Additional Family Medical History / Comment(s): CT in mid 30's. Mother Family Medical History: Dementia family Additional Family Medical History / Comment(s): Anxiety. General Exam Limitations: no limitations General appearance: alert, in no apparent distress Head exam: Present: atraumatic, normocephalic Eye exam: Present: normal appearance, EOMI ENT exam: Present: mucous membranes moist Neck exam: Present: other (Trachea is in midline) Respiratory exam: Present: normal lung sounds bilaterally. Absent: respiratory distress, wheezes, rales, rhonchi, stridor Cardiovascular Exam: Present: normal rhythm, tachycardia, normal heart sounds, other (Normal radial pulses bilaterally) GI/Abdominal exam: Present: soft, hypoactive bowel sounds, other (Moderate epigastric abdominal tenderness). Absent: distended, guarding, rebound Extremities exam: Absent: tenderness, pedal edema, calf tenderness Back exam: Absent: CVA tenderness (R), CVA tenderness (L) Neurological exam: Present: alert, oriented X3 Psychiatric exam: Present: normal affect, normal mood Skin exam: Present: warm, dry, intact, normal color Course Vital Signs 10/21/22 16:40 Temperature 98.2 F Pulse Rate 107 H Respiratory 18 Rate Blood Pressure 169/127 O2 Sat by Pulse 99 Oximetry - Reevaluation(s) Reevaluation #1: 10/21/22 21:35 Patient states that his pain and nausea have improved with ED treatment, and he denies development of any new symptoms while in the ED. Patient's abdomen remains soft and nonsurgical on examination. Patient is aware of his test results, and he feels comfortable being discharged home at this time. Patient was counseled about abdominal pain and nausea/vomiting. Patient was clearly exp lained return and follow-up instructions, and he was instructed to follow up closely with his primary care provider. Will discharge patient home with a starter pack of Zofran. Patient feels comfortable with this plan. Medical Decision Making - Medical Decision Making Was pt. sent in by a medical professional or institution (, PA, DIRECTOR OF PUBLIC SAFETY, urgent care, hospital, or penitentiary...) When possible be specific @ -No Did you speak to anyone other than the patient for history (EMS, parent, family, police, friend...)? What history was obtained from this source @ -No Did you review nursing and triage notes (agree or disagree)? Why? @ -I reviewed and agree with nursing and triage notes Were old charts reviewed (outside hosp., previous admission, EMS record, old EKG, old radiological studies, urgent care reports/EKG's, penitentiary records)? Report findings @ -No old charts were reviewed Differential Diagnosis (chest pain, altered mental status, abdominal pain women, abdominal pain men, vaginal bleeding, weakness, fever, dyspnea, syncope, headache, dizziness, GI bleed, back pain, seizure, CVA, palpatations, mental health, musculoskeletal)? @ -Differential Abdominal Pain Men: Appendicitis, cholecystitis, diverticulosis, ischemic bowel, pancreatitis, hepatitis, gastroenteritis, bowel obstruction, constipation, inflammatory bowel, hepatitis, peptic ulcer disease, this is not meant to be an all-inclusive list EKG interpreted by me (3pts min.). @ -None done X-rays interpreted by me (1pt min.). @ -None done CT interpreted by me (1pt min.). @ -None done U/S interpreted by me (1pt. min.). @ -None done What testing was considered but not performed or refused? (CT, X-rays, U/S, labs)? Why? @ -None What meds were considered but not given or refused? Why? @ -None Did you discuss the management of the patient with other professionals (professionals i.e. , PA, DIRECTOR OF PUBLIC SAFETY, lab, RT, psych nurse, director social service, advertisement distributor, teacher, food safety officer, onsite case manager)? Give summary @ -No Was smoking cessation discussed for >3mins.? @ -No Was critical care preformed (if so, how long)? @ -No Were there social determinants of health that impacted care today? How? (Homelessness, low income, unemployed, alcoholism, drug addiction, transportation, low edu. Level, literacy, decrease access to med. care, correction, rehab)? @ -No Was there de-escalation of care discussed even if they declined (Discuss DNR or withdrawal of care, Hospice)? DNR status @ -No What co-morbidities impacted this encounter? (DM, HTN, Smoking, COPD, CAD, Cancer, CVA, ARF, Chemo, Hep., AIDS, mental health diagnosis, sleep apnea, morbid obesity)? @ -None Was patient admitted / discharged? Hospital course, mention meds given and route, prescriptions, significant lab abnormalities, going to OR and other pertinent info. @ -Patient's pain/symptoms have improved with ED treatment. Patient is af ebrile and without leukocytosis. Patient's labs are fairly unremarkable. Patient has a soft and nonsurgical abdominal exam. I do not suspect an emergent medical or surgical condition at this time. Will discharge patient home at this time. Patient feels comfortable with this plan. Undiagnosed new problem with uncertain prognosis? @ -No Drug Therapy requiring intensive monitoring for toxicity (Heparin, Nitro, Insulin, Cardizem)? @ -No Were any procedures done? @ -No Diagnosis/symptom? @ -Abdominal pain with nausea and vomiting Acute, or Chronic, or Acute on Chronic? @ -Acute on chronic Uncomplicated (without systemic symptoms) or Complicated (systemic symptoms)? @ -default Side effects of treatment? @ -No Exacerbation, Progression, or Severe Exacerbation? @ -No Poses a threat to life or bodily function? How? (Chest pain, USA, CT, pneumonia, PE, COPD, DKA, ARF, appy, cholecystitis, CVA, Diverticulitis, Homicidal, Suicidal, threat to staff... and all critical care pts) @ -No - Lab Data Result diagrams: 10/21/22 20:31 10/21/22 20:31 Lab Results 10/21/22 10/21/22 10/21/22 Range/Units 19:36 20:31 20:31 WBC 6.0 (3.8-10.6) k/uL RBC 4.18 L (4.30-5.90) m/uL Hgb 12.2 L (13.0-17.5) gm/dL Hct 39.0 (39.0-53.0) % MCV 93.3 (80.0-100.0) fL MCH 29.3 (25.0-35.0) pg MCHC 31.4 (31.0-37.0) g/dL RDW 15.3 (11.5-15.5) % Plt Count 429 (150-450) k/uL MPV 7.6 Neutrophils % 76 % Lymphocytes % 17 % Monocytes % 4 % Eosinophils % 0 % Basophils % 0 % Neutrophils # 4.6 (1.3-7.7) k/uL Lymphocytes # 1.0 (1.0-4.8) k/uL Monocytes # 0.2 (0-1.0) k/uL Eosinophils # 0.0 (0-0.7) k/uL Basophils # 0.0 (0-0.2) k/uL Sodium 139 (137-145) mmol/L Potassium 4.3 (3.5-5.1) mmol/L Chloride 100 (98-107) mmol/L Carbon Dioxide 28 (22-30) mmol/L Anion Gap 11 mmol/L BUN 9 (9-20) mg/dL Creatinine 0.93 (0.66-1.25) mg/dL Est GFR (CKD-EPI)AfAm >90 (>60 ml/min/1.73 sqM) Est GFR (CKD-EPI)NonAf >90 (>60 ml/min/1.73 sqM) Glucose 163 H (74-99) mg/dL Plasma Lactic Acid Ender 0.8 (0.7-2.0) mmol/L Calcium 9.1 (8.4-10.2) mg/dL Total Bilirubin 0.4 (0.2-1.3) mg/dL AST 31 (17-59) U/L ALT 34 (4-49) U/L Alkaline Phosphatase 122 (38-126) U/L Total Protein 7.1 (6.3-8.2) g/dL Albumin 4.0 (3.5-5.0) g/dL Amylase 44 (30-110) U/L Lipase 54 (23-300) U/L Serum Alcohol <10 mg/dL Disposition Clinical Impression: Abdominal pain, Nausea and vomiting Disposition: HOME SELF-CARE Condition: Stable Instructions (If sedation given, give patient instructions): Acute Nausea and Vomiting (ED), Abdominal Pain (ED) Additional Instructions: Return to the ER immediately should you develop new or worsening pain, persistent vomiting, feeling dizzy or faint, shortness of breath, a fever, or new or worsening symptoms. Follow up closely with your primary care provider. Is patient prescribed a controlled substance at d/c from ED?: No Referrals: Marlen Mobley MD [Primary Care Provider] - 1-2 days Time of Disposition: 21:39
[2022-10-21] MEDS ORDERED: SODIUM CHLORIDE 0.9% 1,000 ML IV STA (17:16)
[2022-10-21] MEDS ORDERED: ONDANSETRON 4 MG/2 ML VIAL IVP STA (17:17)
[2022-10-21] MEDS ORDERED: HYDROmorphone 1 MG/ML 1 ML SYRINGE IVP STA (17:17)
[2022-10-21] MEDS ORDERED: HYDROmorphone 1 MG/ML 1 ML SYRINGE IM STA (18:34)
[2022-10-21] MEDS ORDERED: ONDANSETRON ODT 4 MG TAB PO STA (18:34)
[2022-10-21 20:41] LABS: Basophils % (A) 0 %; Eosinophils % (A) 0 %; HGB 12.2 gm/dL (13.0-17.5); Lymphocytes % (A) 17 %; MCH 29.3 pg (25.0-35.0); MCHC 31.4 g/dL (31.0-37.0); MCV 93.3 fL (80.0-100.0); Mean Platelet Volume 7.6; Monocytes # (A) 0.2 k/uL (0-1.0); Monocytes % (A) 4 %; Neutrophils # (A) 4.6 k/uL (1.3-7.7); Neutrophils % (A) 76 %; Platelet Count 429 k/uL (150-450); RBC 4.18 m/uL (4.30-5.90); RDW 15.3 % (11.5-15.5)
[2022-10-21 20:59] LABS: ALT 34 U/L (4-49); AST 31 U/L (17-59); African American GFR (CKD) >90 (>60 ml/min/1.73 sqM); Alcohol <10 mg/dL; Alkaline Phosphatase 122 U/L (38-126); Amylase 44 U/L (30-110); Anion Gap 11 mmol/L; Blood Urea Nitrogen 9 mg/dL (9-20); Calcium 9.1 mg/dL (8.4-10.2); Carbon Dioxide 28 mmol/L (22-30); Chloride 100 mmol/L (98-107); Glucose 163 mg/dL (74-99); Lipase 54 U/L (23-300); Non-African American GFR(CKD) >90 (>60 ml/min/1.73 sqM); Potassium 4.3 mmol/L (3.5-5.1); Sodium 139 mmol/L (137-145); Total Bilirubin 0.4 mg/dL (0.2-1.3); Total Protein 7.1 g/dL (6.3-8.2)
[2022-10-21] MEDS ORDERED: ONDANSETRON 4 MG ODT STARTER PACK 2 TAB BTL PO STA (21:38)
== END 2022-10-21 22:06 | disposition home or self-care (01) ==
LOC: EC 16:26
DX: R10.30 Lower abdominal pain, unspecified (principal); R11.2 Nausea with vomiting, unspecified; E11.9 Type 2 diabetes mellitus without complications; I10 Essential (primary) hypertension; G47.30 Sleep apnea, unspecified; F41.9 Anxiety disorder, unspecified; F31.9 Bipolar disorder, unspecified; F17.290 Nicotine dependence, other tobacco product, uncomplicated; Z79.899 Other long term (current) drug therapy; Z88.6 Allergy status to analgesic agent; Z88.8 Allergy status to other drugs, medicaments and biological substances
CPT/HCPCS: 36415; 80053; 82150; 83605; 83690; 85025; 99284; 96372; G0480; J1170; S0119; 80320

== ENCOUNTER 2022-10-22 20:09 | Emergency (ER) | payer MEDICARE, OTHER ==
[2022-10-22 20:12] VITALS: BP 137/100; PULSE 108; RESP 20; TEMP 98.4
--- NOTE | 2022-10-22 21:06 | ED ---
General Adult HPI - General Chief complaint: Abdominal Pain Stated complaint: abd pain Time Seen by Provider: 10/22/22 20:44 Source: patient, RN notes reviewed Mode of arrival: ambulatory Limitations: no limitations - History of Present Illness Initial comments: 57-year-old male presents emergency Department with chief complaint of abdominal pain. Patient states that he was recently hospitalized for pancreatitis. Patient was here yesterday for the same thing. He states that the pain is in the epigastric region similar to when he had the pancreatitis. Patient states that he's been nauseous and vomiting but he has been able to tolerate fluids and food. When asked patient if he was given medication for nausea yesterday he stated "yes and I was given Dilaudid for pain." He denies fever, chills, bloody vomiting, diarrhea. He states he is having normal bowel movements. - Related Data Home Medications Medication Instructions Recorded Confirmed Multivitamins, Thera [Multivitamin 1 tab PO DAILY 10/07/21 10/11/22 (formulary)] Cyclobenzaprine [Flexeril] 10 mg PO TID PRN 09/11/22 10/11/22 HYDROcodone/APAP 7.5-325MG [[place] 1 tab PO Q6HR PRN 09/11/22 10/11/22 7.5-325] Melatonin 5 mg PO HS PRN 09/11/22 10/11/22 Pregabalin [Lyrica] 100 mg PO TID 09/11/22 10/11/22 Sennosides/Docusate Sodium [[place]enna 1 tab PO DAILY PRN 09/11/22 10/11/22 Plus 8.6-50 mg Softgel] Previous Rx's Medication Instructions Recorded Aspirin EC [Ecotrin Low Dose] 81 mg PO DAILY 30 Days tab 08/17/21 Calcium Carbonate [Tums] 500 mg PO QID PRN 30 Days 08/17/21 Ferrous Sulfate [Iron (65 MG 325 mg PO DAILY 30 Days tab 08/17/21 Elemental)] Mirtazapine [Remeron] 15 mg PO HS 30 Days tab 08/17/21 Pantoprazole [Protonix] 40 mg PO HS 30 Days tab 08/17/21 Pravastatin Sodium [Pravachol] 40 mg PO HS 30 Days tab 08/17/21 Vitamin B Complex 1 cap PO DAILY 30 Days cap 08/17/21 busPIRone HCL 15 mg PO BID 30 Days tab 08/17/21 glipiZIDE [Glucotrol] 20 mg PO BID 30 Days tab 08/17/21 metFORMIN HCL [Glucophage] 1,000 mg PO BID 30 Days #60 tab 08/17/21 Propranolol HCl 40 mg PO BID 30 Days #60 tablet 09/13/22 Folic Acid 1 mg PO DAILY #30 tab 10/16/22 OLANZapine [ZyPREXA] 5 mg PO HS #30 tab 10/16/22 Thiamine [Vitamin B-1] 100 mg PO DAILY #30 tab 10/16/22 Allergies Allergy/AdvReac Type Severity Reaction Status Date / Time thimerosal Allergy Severe Rash/Hives/throat Verified 10/22/22 20:12 swelling neomycin Allergy Rash/Hives Verified 10/22/22 20:12 Review of Systems ROS Statement: Those systems with pertinent positive or pertinent negative responses have been documented in the HPI. ROS Other: All systems not noted in ROS Statement are negative. Past Medical History Past Medical History: Diabetes Mellitus, GERD/Reflux, Hyperlipidemia, Hypertension, Liver Disease, Renal Disease, Sleep Apnea/CPAP/BIPAP Additional Past Medical History / Comment(s): Neuropathy, back pain, no CPAP use, Cirrhosis, "kidneys don't always work right." , pancreatitis History of Any Multi-Drug Resistant Organisms: None Reported Past Surgical History: Heart Catheterization, Joint Replacement, Orthopedic Surgery Additional Past Surgical History / Comment(s): Bilateral cataracts removed, bilateral hip replacements, right heal surgery with screws/plates/pins placed, L2-L4 cage infusion, Past Anesthesia/Blood Transfusion Reactions: No Reported Reaction Past Psychological History: Anxiety, Bipolar, Depression, PTSD, Schizoaffective Disorder Smoking Status: Current every day smoker, Vaper Past Alcohol Use History: Abuse, Daily, Heavy Past Drug Use History: None Reported - Past Family History Father Family Medical History: Myocardial Infarction (CT) Additional Family Medical History / Comment(s): CT in mid 30's. Mother Family Medical History: Dementia family Additional Family Medical History / Comment(s): Anxiety. General Exam Limitations: no limitations General appearance: alert, in no apparent distress Head exam: Present: atraumatic, normocephalic, normal inspection Eye exam: Present: normal appearance, PERRL, EOMI. Absent: scleral icterus, conjunctival injection, periorbital swelling ENT exam: Present: normal exam, mucous membranes moist Neck exam: Present: normal inspection. Absent: tenderness, meningismus, lymphadenopathy Respiratory exam: Present: normal lung sounds bilaterally Cardiovascular Exam: Present: regular rate, normal rhythm, normal heart sounds. Absent: systolic murmur, diastolic murmur, rubs, gallop, clicks GI/Abdominal exam: Present: soft, tenderness (Mild tenderness in the epigastric region). Absent: distended Extremities exam: Present: normal inspection, full ROM, normal capillary refill. Absent: tenderness, pedal edema, joint swelling, calf tenderness Back exam: Present: normal inspection Neurological exam: Present: alert, oriented X3 Psychiatric exam: Present: normal affect, normal mood Skin exam: Present: warm, dry, intact, normal color. Absent: rash Course Vital Signs 10/22/22 20:10 Temperature 98.4 F Pulse Rate 108 H Respiratory 20 Rate Blood Pressure 137/100 O2 Sat by Pulse 97 Oximetry Medical Decision Making - Medical Decision Making Was pt. sent in by a medical professional or institution (JACQUES Bryan, DATA ASSISTANT, urgent care, hospital, or correction...) When possible be specific @ -No Did you speak to anyone other than the patient for history (EMS, parent, family, police, friend...)? What history was obtained from this source @ -No Did you review nursing and triage notes (agree or disagree)? Why? @ -I reviewed and agree with nursing and triage notes Were old charts reviewed (outside hosp., previous admission, EMS record, old EKG, old radiological studies, urgent care reports/EKG's, correction records)? Report findings @ -Prior records from yesterday's hospital visit and labs were reviewed. Differential Diagnosis (chest pain, altered mental status, abdominal pain women, abdominal pain men, vaginal bleeding, weakness, fever, dyspnea, syncope, headache, dizziness, GI bleed, back pain, seizure, CVA, palpatations, mental health, musculoskeletal)? @ -Differential Abdominal Pain Men: Appendicitis, cholecystitis, diverticulosis, ischemic bowel, pancreatitis, hepatitis, UTI, gastroenteritis, AAA, incarcerated hernia, bowel obstruction, constipation, inflammatory bowel, hepatitis, peptic ulcer disease, splenic infarction, perforated viscus, testicular torsion, this is not meant to be an a ll-inclusive list EKG interpreted by me (3pts min.). @ -EKG at 2235 showed sinus rhythm rate 84, KS 156, QRS 96, QTQTc 199705 X-rays interpreted by me (1pt min.). @ -None done CT interpreted by me (1pt min.). @ -None done U/S interpreted by me (1pt. min.). @ -None done What testing was considered but not performed or refused? (CT, X-rays, U/S, labs)? Why? @ -None What meds were considered but not given or refused? Why? @ -None Did you discuss the management of the patient with other professionals (professionals i.e. DrParish, PA, DATA ASSISTANT, lab, RT, psych nurse, social services specialist, dentist, teacher, ground defence officer, continuous pillowcase cutter)? Give summary @ -No Was smoking cessation discussed for >3mins.? @ -No Was critical care preformed (if so, how long)? @ -No Were there social determinants of health that impacted care today? How? (Homelessness, low income, unemployed, alcoholism, drug addiction, transportation, low edu. Level, literacy, decrease access to med. care, long term, rehab)? @ -No Was there de-escalation of care discussed even if they declined (Discuss DNR or withdrawal of care, Hospice)? DNR status @ -No What co-morbidities impacted this encounter? (DM, HTN, Smoking, COPD, CAD, Cancer, CVA, ARF, Chemo, Hep., AIDS, mental health diagnosis, sleep apnea, morbid obesity)? @ -None Was patient admitted / discharged? Hospital course, mention meds given and route, prescriptions, significant lab abnormalities, going to OR and other pertinent info. @ -Discharged. Patient presented to emergency department with chief complaint of epigastric pain and vomiting. Patient was in the emergency department yesterday for the same thing and was given Dilaudid. Patient was requesting Dilaudid again today which I did not give him. Patient was given Zofran for nausea which she states helps. CBC showed hemoglobin of 10.9 which is around what is typical for him. CMP was within normal limits. EKG was obtained which showed sinus rhythm rate 94. Patient was given a GI cocktail. Patient was advised to follow up with his primary care provider. Care precautions were discussed. Patient discharged in stable condition. Case discussed with my attending, Dr. Whiting. Undiagnosed new problem with uncertain prognosis? @ -No Drug Therapy requiring intensive monitoring for toxicity (Heparin, Nitro, Insulin, Cardizem)? @ -No Were any procedures done? @ -No Diagnosis/symptom? @ -Gastritis Acute, or Chronic, or Acute on Chronic? @ -Acute Uncomplicated (without systemic symptoms) or Complicated (systemic symptoms)? @ -Uncomplicated Side effects of treatment? @ -No Exacerbation, Progression, or Severe Exacerbation? @ -No Poses a threat to life or bodily function? How? (Chest pain, USA, CT, pneumonia, PE, COPD, DKA, ARF, appy, cholecystitis, CVA, Diverticulitis, Homicidal, Suicidal, threat to staff... and all critical care pts) @ -No - Lab Data Result diagrams: 10/22/22 22:24 10/22/22 22:24 Lab Results 10/22/22 10/22/22 Range/Units 22:24 22:24 WBC 7.5 (3.8-10.6) k/uL RBC 3.60 L (4.30-5.90) m/uL Hgb 10.9 L (13.0-17.5) gm/dL Hct 33.3 L (39.0-53.0) % MCV 92.6 (80.0-100.0) fL MCH 30.4 (25.0-35.0) pg MCHC 32.9 (31.0-37.0) g/dL RDW 15.3 (11.5-15.5) % Plt Count 444 (150-450) k/uL MPV 7.3 Neutrophils % 74 % Lymphocytes % 18 % Monocytes % 3 % Eosinophils % 1 % Basophils % 0 % Neutrophils # 5.5 (1.3-7.7) k/uL Lymphocytes # 1.4 (1.0-4.8) k/uL Monocytes # 0.2 (0-1.0) k/uL Eosinophils # 0.1 (0-0.7) k/uL Basophils # 0.0 (0-0.2) k/uL Sodium 136 L (137-145) mmol/L Potassium 3.9 (3.5-5.1) mmol/L Chloride 98 (98-107) mmol/L Carbon Dioxide 26 (22-30) mmol/L Anion Gap 12 mmol/L BUN 11 (9-20) mg/dL Creatinine 0.95 (0.66-1.25) mg/dL Est GFR (CKD-EPI)AfAm >90 (>60 ml/min/1.73 sqM) Est GFR (CKD-EPI)NonAf 88 (>60 ml/min/1.73 sqM) Glucose 176 H (74-99) mg/dL Calcium 9.0 (8.4-10.2) mg/dL Total Bilirubin 0.4 (0.2-1.3) mg/dL AST 34 (17-59) U/L ALT 34 (4-49) U/L Alkaline Phosphatase 111 (38-126) U/L Total Protein 6.5 (6.3-8.2) g/dL Albumin 3.6 (3.5-5.0) g/dL Amylase 46 (30-110) U/L Lipase 69 (23-300) U/L Disposition Clinical Impression: Abdominal pain Disposition: HOME SELF-CARE Condition: Stable Instructions (If sedation given, give patient instructions): Abdominal Pain (ED) Additional Instructions: Please return to the emergency department for new or worsening symptoms. Is patient prescribed a controlled substance at d/c from ED?: No Referrals: None,Stated [REFERRING] - 1-2 days Time of Disposition: 23:54
[2022-10-22] MEDS ORDERED: ONDANSETRON ODT 4 MG TAB PO STA (21:33)
[2022-10-22 22:36] LABS: Basophils % (A) 0 %; Eosinophils # (A) 0.1 k/uL (0-0.7); Eosinophils % (A) 1 %; HCT 33.3 % (39.0-53.0); HGB 10.9 gm/dL (13.0-17.5); Lymphocytes # (A) 1.4 k/uL (1.0-4.8); Lymphocytes % (A) 18 %; MCH 30.4 pg (25.0-35.0); MCHC 32.9 g/dL (31.0-37.0); MCV 92.6 fL (80.0-100.0); Mean Platelet Volume 7.3; Monocytes # (A) 0.2 k/uL (0-1.0); Monocytes % (A) 3 %; Neutrophils # (A) 5.5 k/uL (1.3-7.7); Neutrophils % (A) 74 %; Platelet Count 444 k/uL (150-450); RDW 15.3 % (11.5-15.5); WBC 7.5 k/uL (3.8-10.6)
[2022-10-22 22:58] LABS: ALT 34 U/L (4-49); AST 34 U/L (17-59); African American GFR (CKD) >90 (>60 ml/min/1.73 sqM); Albumin 3.6 g/dL (3.5-5.0); Alkaline Phosphatase 111 U/L (38-126); Amylase 46 U/L (30-110); Anion Gap 12 mmol/L; Blood Urea Nitrogen 11 mg/dL (9-20); Carbon Dioxide 26 mmol/L (22-30); Chloride 98 mmol/L (98-107); Glucose 176 mg/dL (74-99); Lipase 69 U/L (23-300); Non-African American GFR(CKD) 88 (>60 ml/min/1.73 sqM); Potassium 3.9 mmol/L (3.5-5.1); Sodium 136 mmol/L (137-145); Total Bilirubin 0.4 mg/dL (0.2-1.3); Total Protein 6.5 g/dL (6.3-8.2)
[2022-10-22] MEDS ORDERED: MAG HYDROX/AL HYDROX/SIMETH 30 ML, HYOSCYAMINE ELIXIR 10 ML PO STA ×2 (23:22)
== END 2022-10-22 23:54 | disposition home or self-care (01) ==
LOC: EC 20:09
DX: R10.13 Epigastric pain (principal); E11.9 Type 2 diabetes mellitus without complications; I10 Essential (primary) hypertension; G47.30 Sleep apnea, unspecified; F41.9 Anxiety disorder, unspecified; F31.9 Bipolar disorder, unspecified; F17.290 Nicotine dependence, other tobacco product, uncomplicated; Z79.899 Other long term (current) drug therapy; Z88.6 Allergy status to analgesic agent; Z88.8 Allergy status to other drugs, medicaments and biological substances
CPT/HCPCS: 36415; 80053; 82150; 83690; 85025; 93005; 99284

== ENCOUNTER 2022-10-27 13:39 | Inpatient (IN) | payer MEDICARE, OTHER ==
--- NOTE | 2022-10-27 14:09 | ED ---
Psych HPI - General Chief Complaint: Psychiatric Symptoms Stated Complaint: MENTAL HEALTH Time Seen by Provider: 10/27/22 13:43 Source: patient, RN notes reviewed, old records reviewed Mode of arrival: EMS Limitations: no limitations - History of Present Illness Initial Comments: This is a 49-year-old male to the ER today. Patient presents today for ev aluation regards to psychiatric illness with severe depression patient has history of alcoholism, currently sober, thinking of suicidal thoughts with worsening depression MD Complaint: suicidal ideation, feels depressed -: unknown Associated Psychiatric Symptoms: depression, suicidal ideation, racing thoughts History of same: Yes Quality: constant, getting worse Improves With: none, medication Worsens With: none, medication Context: recent alcohol abuse Associated Symptoms: denies other symptoms Treatments Prior to Arrival: placed on mental health hold - Related Data Home Medications Medication Instructions Recorded Confirmed Multivitamins, Thera [Multivitamin 1 tab PO DAILY 10/07/21 10/27/22 (formulary)] Cyclobenzaprine [Flexeril] 10 mg PO TID PRN 09/11/22 10/27/22 HYDROcodone/APAP 7.5-325MG [Sylvia 1 tab PO Q6HR PRN 09/11/22 10/27/22 7.5-325] Melatonin 5 mg PO HS PRN 09/11/22 10/27/22 Pregabalin [Lyrica] 100 mg PO TID 09/11/22 10/27/22 Sennosides/Docusate Sodium [Senna 1 tab PO DAILY PRN 09/11/22 10/27/22 Plus 8.6-50 mg Softgel] Previous Rx's Medication Instructions Recorded Aspirin EC [Ecotrin Low Dose] 81 mg PO DAILY 30 Days tab 08/17/21 Calcium Carbonate [Tums] 500 mg PO QID PRN 30 Days 08/17/21 Ferrous Sulfate [Iron (65 MG 325 mg PO DAILY 30 Days tab 08/17/21 Elemental)] Mirtazapine [Remeron] 15 mg PO HS 30 Days tab 08/17/21 Pantoprazole [Protonix] 40 mg PO HS 30 Days tab 08/17/21 Pravastatin Sodium [Pravachol] 40 mg PO HS 30 Days tab 08/17/21 Vitamin B Complex 1 cap PO DAILY 30 Days cap 08/17/21 busPIRone HCL 15 mg PO BID 30 Days tab 08/17/21 glipiZIDE [Glucotrol] 20 mg PO BID 30 Days tab 08/17/21 metFORMIN HCL [Glucophage] 1,000 mg PO BID 30 Days #60 tab 08/17/21 Propranolol HCl 40 mg PO BID 30 Days #60 tablet 09/13/22 Folic Acid 1 mg PO DAILY #30 tab 10/16/22 OLANZapine [ZyPREXA] 5 mg PO HS #30 tab 10/16/22 Thiamine [Vitamin B-1] 100 mg PO DAILY #30 tab 10/16/22 Allergies Allergy/AdvReac Type Severity Reaction Status Date / Time thimerosal Allergy Severe Rash/Hives/throat Verified 10/27/22 16:30 swelling neomycin Allergy Rash/Hives Verified 10/27/22 16:30 Review of Systems ROS Statement: Those systems with pertinent positive or pertinent negative responses have been documented in the HPI. ROS Other: All systems not noted in ROS Statement are negative. Past Medical History Past Medical History: Diabetes Mellitus, GERD/Reflux, Hyperlipidemia, Hypertension, Liver Disease, Renal Disease, Sleep Apnea/CPAP/BIPAP Additional Past Medical History / Comment(s): Neuropathy, back pain, no CPAP use, Cirrhosis, "kidneys don't always work right." , pancreatitis History of Any Multi-Drug Resistant Organisms: None Reported Past Surgical History: Heart Catheterization, Joint Replacement, Orthopedic Surgery Additional Past Surgical History / Comment(s): Bilateral cataracts removed, bilateral hip replacements, right heal surgery with screws/plates/pins placed, L2-L4 cage infusion, Past Anesthesia/Blood Transfusion Reactions: No Reported Reaction Past Psychological History: Anxiety, Bipolar, Depression, PTSD, Schizoaffective Disorder Smoking Status: Current every day smoker, Vaper Past Alcohol Use History: Abuse, Daily, Heavy Past Drug Use History: None Reported - Past Family History Father Family Medical History: Myocardial Infarction ([place]) Additional Family Medical History / Comment(s): [place] in mid 30's. Mother Family Medical History: Dementia family Additional Family Medical History / Comment(s): Anxiety. General Exam General appearance: alert, in no apparent distress, anxious Head exam: Present: atraumatic, normocephalic, normal inspection Eye exam: Present: normal appearance, PERRL, EOMI. Absent: scleral icterus, conjunctival injection, periorbital swelling ENT exam: Present: normal exam, mucous membranes moist Neck exam: Present: normal inspection. Absent: tenderness, meningismus, lymphadenopathy Respiratory exam: Present: normal lung sounds bilaterally. Absent: respiratory distress, wheezes, rales, rhonchi, stridor Cardiovascular Exam: Present: regular rate, normal rhythm, normal heart sounds. Absent: systolic murmur, diastolic murmur, rubs, gallop, clicks GI/Abdominal exam: Present: soft, normal bowel sounds. Absent: distended, tenderness, guarding, rebound, rigid Extremities exam: Present: normal inspection, full ROM, normal capillary refill. Absent: tenderness, pedal edema, joint swelling, calf tenderness Back exam: Present: normal inspection Neurological exam: Present: alert, oriented X3, CN II-XII intact Psychiatric exam: Present: normal affect, normal mood Skin exam: Present: warm, dry, intact, normal color. Absent: rash Course Vital Signs 10/27/22 10/27/22 13:56 19:28 Temperature 98.6 F Pulse Rate 95 Respiratory 19 18 Rate Blood Pressure 113/71 O2 Sat by Pulse 98 Oximetry - Reevaluation(s) Reevaluation #1: 10/27/22 15:08 Medical records reviewed Reevaluation #2: 10/27/22 15:08 Medical clear for psychiatric evaluation Medical Decision Making - Lab Data Lab Results 10/27/22 Range/Units 17:00 Coronavirus (PCR) Not Detected (Not Detectd) Disposition Clinical Impression: Depression, Adjustment reaction of adult life, Anxiety disorder Disposition: [facility]ITT[facility] Condition: Fair Is patient prescribed a controlled substance at d/c from ED?: No
[2022-10-27] MEDS ORDERED: LORazepam 1 MG TAB PO STA (14:13)
[2022-10-27] MEDS ORDERED: MAG HYDROX/AL HYDROX/SIMETH 30 ML CUP PO PRN (20:34)
[2022-10-27] MEDS ORDERED: ACETAMINOPHEN TAB 325 MG TAB PO PRN (20:34)
[2022-10-27] MEDS ORDERED: haloperidoL 5 MG TAB PO PRN (20:34)
[2022-10-27] MEDS ORDERED: MAGNESIUM HYDROXIDE 2,400 MG/10 ML CUP PO PRN (20:34)
[2022-10-27] MEDS ORDERED: HALOPERIDOL LACTATE 5 MG/ML 1 ML VIAL IM PRN (20:46)
[2022-10-27] MEDS ORDERED: LORazepam 2 MG/ML INJ IM PRN (20:47)
[2022-10-27] MEDS ORDERED: MELATONIN 5 MG TABLET PO PRN (20:48)
[2022-10-27] MEDS ORDERED: CYCLOBENZAPRINE 10 MG TAB PO PRN (20:48)
[2022-10-27] MEDS ORDERED: HYDROcodone/APAP 7.5-325MG 1 EACH TAB PO PRN (20:48)
[2022-10-27] MEDS ORDERED: CALCIUM CARBONATE 500 MG CHEWABLE PO PRN (20:48)
[2022-10-27] MEDS ORDERED: SENNOSIDES-DOCUSATE SODIUM 1 EACH TAB PO PRN (20:48)
[2022-10-27] MEDS: glipiZIDE 10 MG TAB PO SCH (22:04)
[2022-10-27] MEDS: PRAVASTATIN SODIUM 40 MG TAB PO SCH (22:04)
[2022-10-27] MEDS: PREGABALIN 100 MG CAP PO SCH (22:05)
[2022-10-27] MEDS: MIRTAZAPINE 15 MG TAB PO SCH (22:05)
[2022-10-27] MEDS: metFORMIN 500 MG TAB PO SCH (22:05)
[2022-10-27] MEDS: PROPRANOLOL 40 MG TAB PO SCH (22:05)
[2022-10-27] MEDS: PANTOPRAZOLE 40 MG TABLET PO SCH (22:06)
[2022-10-27] MEDS: OLANZapine 5 MG TAB PO SCH (22:06)
[2022-10-27] MEDS: busPIRone HCl 5 MG TAB PO SCH (22:07)
--- NOTE | 2022-10-28 05:21 | P.MDCNMH ---
History of Present Illness H&P Date: 10/28/22 Chief Complaint: suicidal ideation 57 year old male coming in for depressed mood and increase suicidal ideation, he claims to be sober, and last alcohol drink was over 10 days ago . he denies any fever, chills, cough, sore throat, chest pain , trouble breathing , nausea , abd pain , changes in urinary or bowel habits. he denies tobacco smoking , and illicit drugs. he admits to vaping and occasional alcohol he reports chronic vomiting, non bloody no bilious Review of Systems Pertinent positives as noted in HPI. All other systems were reviewed and are negative Past Medical History Past Medical History: Diabetes Mellitus, GERD/Reflux, Hyperlipidemia, Hypertension, Liver Disease, Renal Disease, Sleep Apnea/CPAP/BIPAP Additional Past Medical History / Comment(s): Neuropathy, back pain, no CPAP use, Cirrhosis, "kidneys don't always work right." , pancreatitis History of Any Multi-Drug Resistant Organisms: None Reported Past Surgical History: Heart Catheterization, Joint Replacement, Orthopedic Surgery Additional Past Surgical History / Comment(s): Bilateral cataracts removed, bilateral hip replacements, right heal surgery with screws/plates/pins placed, L2-L4 cage infusion, Past Anesthesia/Blood Transfusion Reactions: No Reported Reaction Past Psychological History: Anxiety, Bipolar, Depression, PTSD, Schizoaffective Disorder Smoking Status: Current every day smoker, Vaper Past Alcohol Use History: Abuse, Daily, Heavy Past Drug Use History: None Reported - Past Family History Father Family Medical History: Myocardial Infarction ([place]) Additional Family Medical History / Comment(s): [place] in mid 30's. Mother Family Medical History: Dementia family Additional Family Medical History / Comment(s): Anxiety. Medications and Allergies Home Medications Medication Instructions Recorded Confirmed Type Aspirin EC [Ecotrin Low Dose] 81 mg PO DAILY 30 Days tab 08/17/21 10/27/22 Rx Calcium Carbonate [Tums] 500 mg PO QID PRN 30 Days 08/17/21 10/27/22 Rx Ferrous Sulfate [Iron (65 MG 325 mg PO DAILY 30 Days tab 08/17/21 10/27/22 Rx Elemental)] Mirtazapine [Remeron] 15 mg PO HS 30 Days tab 08/17/21 10/27/22 Rx Pantoprazole [Protonix] 40 mg PO HS 30 Days tab 08/17/21 10/27/22 Rx Pravastatin Sodium [Pravachol] 40 mg PO HS 30 Days tab 08/17/21 10/27/22 Rx Vitamin B Complex 1 cap PO DAILY 30 Days cap 08/17/21 10/27/22 Rx busPIRone HCL 15 mg PO BID 30 Days tab 08/17/21 10/27/22 Rx glipiZIDE [Glucotrol] 20 mg PO BID 30 Days tab 08/17/21 10/27/22 Rx metFORMIN HCL [Glucophage] 1,000 mg PO BID 30 Days #60 tab 08/17/21 10/27/22 Rx Multivitamins, Thera [Multivitamin 1 tab PO DAILY 10/07/21 10/27/22 History (formulary)] Cyclobenzaprine [Flexeril] 10 mg PO TID PRN 09/11/22 10/27/22 History HYDROcodone/APAP 7.5-325MG [Husser 1 tab PO Q6HR PRN 09/11/22 10/27/22 History 7.5-325] Melatonin 5 mg PO HS PRN 09/11/22 10/27/22 History Pregabalin [Lyrica] 100 mg PO TID 09/11/22 10/27/22 History Sennosides/Docusate Sodium [Senna 1 tab PO DAILY PRN 09/11/22 10/27/22 History Plus 8.6-50 mg Softgel] Propranolol HCl 40 mg PO BID 30 Days #60 tablet 09/13/22 10/27/22 Rx Folic Acid 1 mg PO DAILY #30 tab 10/16/22 10/27/22 Rx OLANZapine [ZyPREXA] 5 mg PO HS #30 tab 10/16/22 10/27/22 Rx Thiamine [Vitamin B-1] 100 mg PO DAILY #30 tab 10/16/22 10/27/22 Rx Allergies Allergy/AdvReac Type Severity Reaction Status Date / Time thimerosal Allergy Severe Rash/Hives/throat Verified 10/27/22 16:30 swelling neomycin Allergy Rash/Hives Verified 10/27/22 16:30 Physical Exam Vitals: Vital Signs Temp Pulse Pulse Resp BP BP Pulse Ox 10/27/22 20:09 97.8 F 114 H 20 138/88 97 10/27/22 19:28 18 10/27/22 13:56 98.6 F 95 19 113/71 98 Intake and Output 10/27/22 10/27/22 10/28/22 14:59 22:59 06:59 Other: Weight 79.379 kg 75 kg Constitutional: No acute distress, Eyes: Anicteric sclerae, moist conjunctiva, Pupils equal round reactive to light ENMT: NC/AT Oropharynx clear, no erythema, or exudates Lungs: Clear to auscultation Clear to percussion Normal respiratory effort, no accessory muscle use Cardiovascular: Heart regular in rate and rhythm, No murmurs, gallops, or rubs No peripheral edema Abdominal: Soft Nontender, no guarding, rebound or rigidity Abdomen moving with respiration Normoactive bowel sounds Skin: Normal temperature, tone, texture, turgor Extremities: No digital cyanosis No clubbing Pedal pulses intact and symmetrical Radial pulses intact and symmetrical No calf tenderness Psychiatric: Alert and oriented to person, place and time Neuro Muscles Strength 5/5 in all 4 extremities Sensation to light touch grossly present throughout Cranial Nerve Examination - Cranial Nerves Cranial Nerve II- Optic: Intact Cranial Nerve III- Oculomotor: Intact Cranial Nerve IV- Trochlear: Intact Cranial Nerve V- Trigeminal: Intact Cranial Nerve - Abducens: Intact Cranial Nerve VII- Facial: Intact Cranial Nerve VIII- Auditory: Intact Cranial Nerve IX- Glossopharyngeal: Intact Cranial Nerve X- Vagus: Intact Cranial Nerve XI- Accessory: Intact Cranial Nerve XII- Hypoglossal: Intact Assessment and Plan Assessment: depression and suicidal ideation management per psych DM resume glipizide and metformin blood work pending thank you for this consultation
[2022-10-28] MEDS: MULTIVITAMINS, THERA 1 EACH TAB PO SCH (08:31)
[2022-10-28] MEDS: PREGABALIN 100 MG CAP PO SCH ×3 (08:31→22:16)
[2022-10-28] MEDS: metFORMIN 500 MG TAB PO SCH ×2 (08:31→22:08)
[2022-10-28] MEDS: THIAMINE 100 MG TAB PO SCH (08:31)
[2022-10-28] MEDS: busPIRone HCl 5 MG TAB PO SCH ×2 (08:31→20:21)
[2022-10-28] MEDS: FERROUS SULFATE 325 MG TAB PO SCH (08:31)
[2022-10-28] MEDS: NICOTINE 14MG/24HR PATCH TRANSDERM SCH (08:31)
[2022-10-28] MEDS: glipiZIDE 10 MG TAB PO SCH ×2 (08:31→18:12)
[2022-10-28] MEDS: PROPRANOLOL 40 MG TAB PO SCH ×2 (08:31→22:10)
[2022-10-28] MEDS: ASPIRIN 81 MG PO SCH (08:31)
[2022-10-28] MEDS ORDERED: NON FORMULARY DRUG (Vitamin B Complex [Vitamin B Complex] 1 EACH Capsule) PO SCH (09:00)
[2022-10-28] MEDS: ONDANSETRON ODT 4 MG TAB PO PRN ×2 (14:00→18:19)
--- NOTE | 2022-10-28 15:20 | P.HP ---
Psychiatric H&P - . H&P Date: 10/28/22 History & Physical: Allergies Allergy/AdvReac Type Severity Reaction Status Date / Time thimerosal Allergy Severe Rash/Hives/throat Verified 10/27/22 16:30 swelling neomycin Allergy Rash/Hives Verified 10/27/22 16:30 Vital Signs Temp 98.4 F 10/28/22 06:55 Pulse 115 H 10/28/22 06:55 Resp 18 10/28/22 06:55 BP 151/107 10/28/22 06:55 Pulse Ox 95 10/28/22 06:55 FiO2 Intake & Output 10/27/22 10/28/22 10/28/22 18:59 06:59 18:59 Weight 79.379 kg 75 kg Laboratory Last Values Coronavirus (PCR) Not Detected (Not Detectd) 10/27/22 17:00 10/28/22 15:12 Initial psychiatric evaluation Andrea is a 57-year-old male was currently hospitalized after patient presents to the ER with depression feelings of helplessness and hopelessness and suicidal ideations and a plan Patient also has a history of alcohol use disorder Patient states that he is currently homeless He says that he had a plan to kill himself but did not go into any specifics He admits that he has been here several times in the past He says that he currently is feeling hopeless However he seems to be somewhat focused on feeling nauseous admits he states that started this morning He denies any ingestion of any unknown substances He admits that he has alcohol problem but denies any illicit substance use Past history personal social history Patient currently states that he is homeless He says that he has a chronic problem with alcohol use Patient also continues to be wanting to sleep at this time and is not motivated to give any further details Mental status examination: MENTAL STATUS EXAM: General Appearance: Patient is laying in bed and keeps trying to line to go to sleep Patient is a poor historian and keeps his eyes closed for the interview Responses were mostly monosyllabic Appearance is unkept and disheveled Behavior: Uncooperative Speech: Patient's speech is sparse and superficial Mood/Affect: Patient reports their mood is a little depressed, affect is congruent and constricted. Suicidality/Homicidality: Patient denies having any homicidal ideation intent or plan. Admits feeling depressed but denies any suicidal plans at this time Perceptions: Patient denies any visual hallucinations and denies any auditory hallucinations Though content/process: There is no evidence of any delusional thought content and thought process is linear and goal-directed. Memory and concentration: AOX3, grossly intact for the purposes of this session. Can spell "WORLD" backwards Judgment and insight: poor STRENGTHS/WEAKNESSES: strength is that patient is resilient. Weakness is that patient has poor judgment and is impulsive and a history of chronic alcohol abuse INTELLECT: average IMPRESSIONS: Depressive disorder unspecified Alcohol use disorder chronic PLAN: -Patient is admitted under voluntary status to [facility]HU for stabilization of psychiatric symptoms and safety. Patient has signed adult voluntary form and medication consent and is placed in patient's chart. -Medications : Will continue his home medications that include buspirone 15 mg twice a day Remeron 15 mg at bedtime. pregabalin 100 mg 3 times a day -Ativan and Haldol PRN for agitation/aggression. lamictal 100 mg daily for mood stabilization, buspar 10 mg bid for anxiety, seroquel 100 mg qhs for insomnia/mood stabilization -Started thiamine, MVM for etoh use -CIWA protocol with Ativan PRN for ETOH withdrawal -Patient was counselled on substance abuse and desired to cut back on use and is interested in going to rehab. -Patient was informed of the risks, benefits and side effects of the medication and patient verbally consented to taking the medications. Patient signed med consent form and was placed in chart. -Internal Medicine consult to perform medical evaluation and physical. -SW on board for discharge planning. Encourage patient to participate in groups to work on coping skills. Live Haney M.D. 10/28/2022
[2022-10-28 16:25] LABS: ALT 24 U/L (4-49); African American GFR (CKD) >90 (>60 ml/min/1.73 sqM); Albumin 3.8 g/dL (3.5-5.0); Anion Gap 10 mmol/L; Blood Urea Nitrogen 11 mg/dL (9-20); Calcium 8.8 mg/dL (8.4-10.2); Carbon Dioxide 28 mmol/L (22-30); Chloride 95 mmol/L (98-107); Glucose 113 mg/dL (74-99); HCT 36.7 % (39.0-53.0); HGB 12.2 gm/dL (13.0-17.5); MCH 30.6 pg (25.0-35.0); MCHC 33.2 g/dL (31.0-37.0); MCV 92.1 fL (80.0-100.0); Mean Platelet Volume 6.7; Non-African American GFR(CKD) 84 (>60 ml/min/1.73 sqM); Platelet Count 496 k/uL (150-450); RBC 3.98 m/uL (4.30-5.90); RDW 15.7 % (11.5-15.5); Sodium 133 mmol/L (137-145); Total Bilirubin 0.6 mg/dL (0.2-1.3); Total Protein 6.7 g/dL (6.3-8.2); WBC 5.9 k/uL (3.8-10.6)
[2022-10-28 16:41] LABS: AST 28 U/L (17-59); Alkaline Phosphatase 107 U/L (38-126)
[2022-10-28 18:17] LABS: Eosinophils # (M) 0.18 k/uL (0-0.7); Lymphocytes # (M) 2.48 k/uL (1.0-4.8); Monocytes # (M) 0.41 k/uL (0-1.0); Neutrophils # (M) 2.83 k/uL (1.3-7.7); Neutrophils % (M) 48 %; Nucleated Red Blood Cells 0 /100 WBC (0-0); Total Cells Counted 100
[2022-10-28] MEDS: LORazepam 1 MG TAB PO PRN (18:19)
[2022-10-28] MEDS ORDERED: SODIUM CHLORIDE 0.9% 1,000 ML IV ONE ×2 (18:54→19:05)
[2022-10-28] MEDS: PROCHLORPERAZINE INJ 10 MG/2 ML VIAL IM STA ×2 (20:10→22:11)
[2022-10-28] MEDS ORDERED: PROCHLORPERAZINE INJ 10 MG/2 ML VIAL IVP STA (20:15)
[2022-10-28] MEDS: OLANZapine 5 MG TAB PO SCH (20:21)
[2022-10-28] MEDS: PANTOPRAZOLE 40 MG TABLET PO SCH (20:21)
[2022-10-28] MEDS: MIRTAZAPINE 15 MG TAB PO SCH (20:21)
[2022-10-28 20:27] LABS: HCT 34.7 % (39.0-53.0); HGB 11.3 gm/dL (13.0-17.5); MCH 30.4 pg (25.0-35.0); MCHC 32.7 g/dL (31.0-37.0); Mean Platelet Volume 7.3; Platelet Count 479 k/uL (150-450); RBC 3.73 m/uL (4.30-5.90); RDW 15.7 % (11.5-15.5); WBC 5.4 k/uL (3.8-10.6)
[2022-10-28 20:34] LABS: Glucose,Whole Blood 192 mg/dL (70-110)
[2022-10-28 20:41] LABS: Albumin 3.4 g/dL (3.5-5.0); Calcium 8.5 mg/dL (8.4-10.2); Potassium 3.7 mmol/L (3.5-5.1); Total Bilirubin 0.4 mg/dL (0.2-1.3); Total Protein 5.9 g/dL (6.3-8.2)
[2022-10-28] MEDS: PRAVASTATIN SODIUM 40 MG TAB PO SCH (22:09)
[2022-10-29] MEDS: FERROUS SULFATE 325 MG TAB PO SCH (08:21)
[2022-10-29] MEDS: THIAMINE 100 MG TAB PO SCH (08:21)
[2022-10-29 08:22] LABS: Glucose,Whole Blood 142 mg/dL (70-110)
[2022-10-29] MEDS: ASPIRIN 81 MG PO SCH (08:22)
[2022-10-29] MEDS: NICOTINE 14MG/24HR PATCH TRANSDERM SCH (08:22)
[2022-10-29] MEDS: busPIRone HCl 5 MG TAB PO SCH ×2 (08:22→20:41)
[2022-10-29] MEDS: metFORMIN 500 MG TAB PO SCH ×2 (08:23→20:41)
[2022-10-29] MEDS: PREGABALIN 100 MG CAP PO SCH ×3 (08:23→20:48)
[2022-10-29] MEDS: MULTIVITAMINS, THERA 1 EACH TAB PO SCH (08:23)
[2022-10-29] MEDS: glipiZIDE 10 MG TAB PO SCH ×2 (08:24→17:27)
[2022-10-29] MEDS: ONDANSETRON ODT 4 MG TAB PO PRN ×2 (10:07→22:00)
[2022-10-29] MEDS: PROPRANOLOL 40 MG TAB PO SCH ×2 (11:43→20:43)
--- NOTE | 2022-10-29 11:57 | P.PN ---
Subjective Progress Note Date: 10/29/22 Principal diagnosis: IMPRESSIONS: Depressive disorder unspecified Alcohol use disorder chronic Subjective/subjective data: Patient reports that he is feeling slightly better He says that his nausea seems to have decreased and that he feels like his appetite is come back He says that he still feels depressed He says that he has not talked to anyone regarding any placement Mental status examination: MENTAL STATUS EXAM: General Appearance: Patient was seen while walking down in the corridor Patient is a poor historian and remains a motivated Responses were mostly monosyllabic Appearance is unkept and disheveled Behavior: Uncooperative Speech: Patient's speech is sparse and superficial Mood/Affect: Patient reports their mood is a little depressed, affect is congruent and constricted. Suicidality/Homicidality: Patient denies having any homicidal ideation intent or plan. Admits feeling depressed but denies any suicidal plans at this time Perceptions: Patient denies any visual hallucinations and denies any auditory hallucinations Though content/process: There is no evidence of any delusional thought content and thought process is linear and goal-directed. Memory and concentration: AOX3, grossly intact for the purposes of this session. Can spell "WORLD" backwards Judgment and insight: poor PLAN: -Patient is admitted under voluntary status to [facility]HU for stabilization of psychiatric symptoms and safety. Patient has signed adult voluntary form and medication consent and is placed in patient's chart. -Medications : Will continue his home medications that include buspirone 15 mg twice a day Remeron 15 mg at bedtime. pregabalin 100 mg 3 times a day -Ativan and Haldol PRN for agitation/aggression. lamictal 100 mg daily for mood stabilization, buspar 10 mg bid for anxiety, seroquel 100 mg qhs for insomnia/mood stabilization -Started thiamine, MVM for etoh use -CIWA protocol with Ativan PRN for ETOH withdrawal -Patient was counselled on substance abuse and desired to cut back on use and is interested in going to rehab. -Patient was informed of the risks, benefits and side effects of the medication and patient verbally consented to taking the medications. Patient signed med consent form and was placed in chart. -Internal Medicine consult to perform medical evaluation and physical. -SW on board for discharge planning. Encourage patient to participate in groups to work on coping skills. Live Haney M.D. 10/29/2022 Objective - Vital Signs Vital signs: Vital Signs Temp 98.1 F 10/29/22 06:32 Pulse 143 H 10/29/22 11:43 Resp 16 10/29/22 06:32 BP 101/63 10/29/22 11:43 Pulse Ox 97 10/29/22 06:32 FiO2 Intake & Output 10/28/22 10/29/22 10/29/22 18:59 06:59 18:59 Weight 75.5 kg - Labs CBC & Chem 7: 10/28/22 19:43 10/28/22 19:43 Labs: Abnormal Lab Results - Last 24 Hours (Table) 10/28/22 10/28/22 10/28/22 Range/Units 15:54 15:54 19:43 RBC 3.98 L (4.30-5.90) m/uL Hgb 12.2 L (13.0-17.5) gm/dL Hct 36.7 L (39.0-53.0) % RDW 15.7 H (11.5-15.5) % Plt Count 496 H (150-450) k/uL Sodium 133 L 132 L (137-145) mmol/L Chloride 95 L 96 L (98-107) mmol/L Glucose 113 H 189 H (74-99) mg/dL POC Glucose (mg/dL) (70-110) mg/dL Total Protein 5.9 L (6.3-8.2) g/dL Albumin 3.4 L (3.5-5.0) g/dL 10/28/22 10/28/22 10/29/22 Range/Units 19:43 20:31 08:20 RBC 3.73 L (4.30-5.90) m/uL Hgb 11.3 L (13.0-17.5) gm/dL Hct 34.7 L (39.0-53.0) % RDW 15.7 H (11.5-15.5) % Plt Count 479 H (150-450) k/uL Sodium (137-145) mmol/L Chloride (98-107) mmol/L Glucose (74-99) mg/dL POC Glucose (mg/dL) 192 H 142 H (70-110) mg/dL Total Protein (6.3-8.2) g/dL Albumin (3.5-5.0) g/dL
[2022-10-29 12:47] LABS: Glucose,Whole Blood 142 mg/dL (70-110)
[2022-10-29] MEDS: LORazepam 1 MG TAB PO PRN ×2 (13:27→21:37)
[2022-10-29 17:32] LABS: Glucose,Whole Blood 131 mg/dL (70-110)
[2022-10-29 17:36] LABS: LDL Cholesterol,Calculated 55.5 mg/dL
[2022-10-29] MEDS: OLANZapine 5 MG TAB PO SCH (20:41)
[2022-10-29] MEDS: MIRTAZAPINE 15 MG TAB PO SCH (20:42)
[2022-10-29] MEDS: INSULIN ASPART (NovoLOG) 100 UNIT/ML VIAL SQ SCH (20:46)
[2022-10-29] MEDS: PRAVASTATIN SODIUM 40 MG TAB PO SCH (20:46)
[2022-10-29] MEDS: PANTOPRAZOLE 40 MG TABLET PO SCH (20:46)
[2022-10-30 07:55] LABS: Glucose,Whole Blood 124 mg/dL (70-110)
[2022-10-30] MEDS: THIAMINE 100 MG TAB PO SCH (08:41)
[2022-10-30] MEDS: MULTIVITAMINS, THERA 1 EACH TAB PO SCH (08:41)
[2022-10-30] MEDS: metFORMIN 500 MG TAB PO SCH ×2 (08:41→20:41)
[2022-10-30] MEDS: glipiZIDE 10 MG TAB PO SCH ×2 (08:41→16:52)
[2022-10-30] MEDS: FERROUS SULFATE 325 MG TAB PO SCH (08:41)
[2022-10-30] MEDS: PREGABALIN 100 MG CAP PO SCH ×3 (08:41→20:41)
[2022-10-30] MEDS: LORazepam 1 MG TAB PO PRN ×2 (08:41→16:52)
[2022-10-30] MEDS: busPIRone HCl 5 MG TAB PO SCH (08:41)
[2022-10-30] MEDS: ASPIRIN 81 MG PO SCH (08:41)
[2022-10-30] MEDS: PROPRANOLOL 40 MG TAB PO SCH ×2 (08:42→20:41)
[2022-10-30] MEDS: NICOTINE 14MG/24HR PATCH TRANSDERM SCH (09:57)
[2022-10-30] MEDS: INSULIN ASPART (NovoLOG) 100 UNIT/ML VIAL SQ SCH ×4 (09:57→20:50)
[2022-10-30 12:55] LABS: Glucose,Whole Blood 198 mg/dL (70-110)
--- NOTE | 2022-10-30 13:04 | P.PN ---
Progress Note - Text Progress Note Date: 10/30/22 Subjective/subjective data: Patient was seen today laying in bed and was agreeable to speak to securities underwriter. He states that he was feeling worse prior to coming in the hospital and states that he relapsed back on huffing spray cans. he states that he wanted to "get away for a bit". He had a fairly constricted affect, but is very concrete. He interacted pleasantly with securities underwriter and was agreeable to continuing on with treatment. He states that he is still feeling depressed. He claims that he previously tried Geodon which had helped him and he wants to go back on it. He claims that he is also feeling fairly anxious at this time and also depressed. He states that he was able to sleep fairly lastly, has a fair appetite. He is denying any other issues at this time. He was fairly monotone and continues to state that he is a motivation. At this time is denying any suicidal or homicidal ideations intent or plan. Denying any auditory or visual hallucinations. He is denying any side effects from medications at this time. Mental status examination: MENTAL STATUS EXAM: General Appearance: Patient was seen laying in bed, responses were mostly monosyllabic Appearance is unkept and disheveled. wearing hospital gown. Behavior: cooperative Speech: Patient's speech is sparse and superficial, concrete. Mood/Affect: Patient reports their mood is a little depressed, and is feeling anxious affect is congruent and constricted. Suicidality/Homicidality: Patient denies having any homicidal ideation intent or plan. denies any suicidal plans at this time Perceptions: Patient denies any visual hallucinations and denies any auditory hallucinations Though content/process: There is no evidence of any delusional thought content and thought process is linear and goal-directed. Memory and concentration: AOX3, grossly intact for the purposes of this session Judgment and insight: poor chronically, improving midlly IMPRESSIONS: Depressive disorder unspecified generalized anxiety disorder Alcohol use disorder inhalant use disorder PLAN: -Patient is admitted under voluntary status to MHU for stabilization of psychiatric symptoms and safety. Patient has signed adult voluntary form and medication consent and is placed in patient's chart. -Medications : Increase buspirone 20 mg twice a day, Remeron 15 mg at bedtime. melatonin prn for sleep, pregabalin 100 mg 3 times a day, start geodon 20 mg bid for mood stabilization/psychosis. ordered ekg. -Ativan and Haldol PRN for agitation/aggression. -thiamine, MVM for etoh use -CIWA protocol with Ativan PRN for ETOH withdrawal -SW on board for discharge planning. Encourage patient to participate in groups to work on coping skills.
[2022-10-30] MEDS: ZIPRASIDONE 20 MG CAP PO SCH ×2 (13:11→20:40)
[2022-10-30 14:15] VITALS: BMI 26.0
[2022-10-30 17:32] LABS: Glucose,Whole Blood 75 mg/dL (70-110)
[2022-10-30 20:05] LABS: Glucose,Whole Blood 101 mg/dL (70-110)
[2022-10-30] MEDS: busPIRone HCl 10 MG TAB PO SCH (20:40)
[2022-10-30] MEDS: MIRTAZAPINE 15 MG TAB PO SCH (20:41)
[2022-10-30] MEDS: PRAVASTATIN SODIUM 40 MG TAB PO SCH (20:41)
[2022-10-30] MEDS: PANTOPRAZOLE 40 MG TABLET PO SCH (20:41)
[2022-10-31 06:55] VITALS: RESP 16
[2022-10-31] MEDS: LORazepam 1 MG TAB PO PRN (07:36)
[2022-10-31] MEDS: ZIPRASIDONE 20 MG CAP PO SCH ×2 (07:36→20:28)
[2022-10-31] MEDS: glipiZIDE 10 MG TAB PO SCH ×2 (07:36→17:56)
[2022-10-31] MEDS: PROPRANOLOL 40 MG TAB PO SCH ×2 (07:37→20:29)
[2022-10-31] MEDS: THIAMINE 100 MG TAB PO SCH (07:37)
[2022-10-31] MEDS: busPIRone HCl 10 MG TAB PO SCH ×2 (07:37→20:28)
[2022-10-31] MEDS: ASPIRIN 81 MG PO SCH (07:37)
[2022-10-31] MEDS: metFORMIN 500 MG TAB PO SCH ×2 (07:37→20:29)
[2022-10-31] MEDS: FERROUS SULFATE 325 MG TAB PO SCH (07:37)
[2022-10-31] MEDS: MULTIVITAMINS, THERA 1 EACH TAB PO SCH (07:38)
[2022-10-31 07:53] LABS: Glucose,Whole Blood 135 mg/dL (70-110)
[2022-10-31] MEDS: INSULIN ASPART (NovoLOG) 100 UNIT/ML VIAL SQ SCH ×4 (07:56→20:30)
[2022-10-31] MEDS: NICOTINE 14MG/24HR PATCH TRANSDERM SCH (07:56)
[2022-10-31] MEDS: PREGABALIN 100 MG CAP PO SCH ×3 (09:08→20:29)
[2022-10-31] MEDS ORDERED: ONDANSETRON ODT 8 MG TAB.RAPDIS PO PRN (10:16)
--- NOTE | 2022-10-31 10:19 | P.PN ---
Progress Note - Text Progress Note Date: 10/31/22 Subjective/subjective data: Patient was seen today laying in bed and was agreeable to speak to engineering writer. He appeared to be in mild distress this morning and had a basin on the floor beside his bed with some vomitt in it. he claims that he started feeling nausous after breakfast this morning and vomitted and he was agreeable to try zofran. claims that he is doing better today with regards to his mood, continues to state that he has baseline level of anxiety. He had a fairly constricted affect, but is concrete. He interacted pleasantly with engineering writer and was agreeable to continuing on with treatment. He claims that the geodon has been helping to "stabilize my mood" and thanked engineering writer. He states that he was able to sleep fairly lastly, has a fair appetite. At this time is denying any suicidal or homicidal ideations intent or plan. Denying any auditory or visual hallucinations. He is denying any side effects from medications at this time. Mental status examination: MENTAL STATUS EXAM: General Appearance: Patient was seen laying in bed, responses were mostly monosyllabic Appearance is unkept and disheveled. wearing hospital gown. Behavior: cooperative Speech: Patient's speech is sparse and superficial, concret, improving mildly Mood/Affect: Patient reports their mood is a bit better, and is feeling anxious affect is congruent and constricted. Suicidality/Homicidality: Patient denies having any homicidal ideation intent or plan. denies any suicidal plans at this time Perceptions: Patient denies any visual hallucinations and denies any auditory hallucinations Though content/process: There is no evidence of any delusional thought content and thought process is linear and goal-directed. Memory and concentration: AOX3, grossly intact for the purposes of this session Judgment and insight: poor chronically, improving midlly IMPRESSIONS: Depressive disorder unspecified generalized anxiety disorder Alcohol use disorder inhalant use disorder PLAN: -Patient is admitted under voluntary status to MHU for stabilization of psychiatric symptoms and safety. Patient has signed adult voluntary form and medication consent and is placed in patient's chart. -Medications : buspirone 20 mg twice a day, Remeron 15 mg at bedtime. melatonin prn for sleep, pregabalin 100 mg 3 times a day, geodon 20 mg bid for mood stabilization/psychosis. reviewed ekg. zofran prn for nausea. -Ativan and Haldol PRN for agitation/aggression. -thiamine, MVM for etoh use -CIWA protocol with Ativan PRN for ETOH withdrawal -SW on board for discharge planning. Encourage patient to participate in groups to work on coping skills. Sw to look into dispo back to [facility], likely in 1-2 days.
[2022-10-31 13:00] LABS: Glucose,Whole Blood 155 mg/dL (70-110)
[2022-10-31 17:35] LABS: Glucose,Whole Blood 127 mg/dL (70-110)
[2022-10-31 20:22] LABS: Glucose,Whole Blood 197 mg/dL (70-110)
[2022-10-31] MEDS: PANTOPRAZOLE 40 MG TABLET PO SCH (20:28)
[2022-10-31] MEDS: MIRTAZAPINE 15 MG TAB PO SCH (20:29)
[2022-10-31] MEDS: PRAVASTATIN SODIUM 40 MG TAB PO SCH (20:29)
[2022-11-01 07:11] VITALS: BP 148/88; PULSE 107; TEMP 97.7
[2022-11-01 08:11] LABS: Glucose,Whole Blood 128 mg/dL (70-110)
[2022-11-01] MEDS: glipiZIDE 10 MG TAB PO SCH (08:13)
[2022-11-01] MEDS: INSULIN ASPART (NovoLOG) 100 UNIT/ML VIAL SQ SCH ×2 (08:13→12:47)
[2022-11-01] MEDS: FERROUS SULFATE 325 MG TAB PO SCH (08:14)
[2022-11-01] MEDS: metFORMIN 500 MG TAB PO SCH (08:14)
[2022-11-01] MEDS: ASPIRIN 81 MG PO SCH (08:14)
[2022-11-01] MEDS: busPIRone HCl 10 MG TAB PO SCH (08:15)
[2022-11-01] MEDS: ZIPRASIDONE 20 MG CAP PO SCH (08:15)
[2022-11-01] MEDS: PROPRANOLOL 40 MG TAB PO SCH (08:15)
[2022-11-01] MEDS: PREGABALIN 100 MG CAP PO SCH (08:15)
[2022-11-01] MEDS: NICOTINE 14MG/24HR PATCH TRANSDERM SCH (08:15)
[2022-11-01] MEDS: MULTIVITAMINS, THERA 1 EACH TAB PO SCH (08:15)
[2022-11-01] MEDS: THIAMINE 100 MG TAB PO SCH (08:15)
--- NOTE | 2022-11-01 10:43 | P.DS ---
Providers Date of admission: 10/27/22 19:52 Expected date of discharge: 11/01/22 Attending physician: Conrado David MD Consults: 10/27/22 20:34 Consult Physician Routine Consulting Provider: Sourav Sloan Consult Reason/Comments: medical management Do you want consulting provider notified?: Yes Primary care physician: Marlen Mobley - Discharge Diagnosis(es) (1) Depressive disorder Current Visit: Yes Status: Acute Priority: High (2) Generalized anxiety disorder Current Visit: Yes Status: Acute Priority: High (3) Alcohol use disorder Current Visit: Yes Status: Acute Priority: Medium (4) Inhalant abuse Current Visit: Yes Status: Acute Priority: High Hospital Course: Admission HPI: Admission note was completed by Dr Haney "Andrea is a 57-year-old male was curr ently hospitalized after patient presents to the ER with depression feelings of helplessness and hopelessness and suicidal ideations and a plan. Patient also has a history of alcohol use disorder Patient states that he is currently homeless He says that he had a plan to kill himself but did not go into any specifics He admits that he has been here several times in the past He says that he currently is feeling hopeless However he seems to be somewhat focused on feeling nauseous admits he states that started this morning He denies any ingestion of any unknown substances He admits that he has alcohol problem but denies any illicit substance use" Hospital course: Upon admission to the unit patient was directable and agreeable to commence treatment and signed adult voluntary form . Patient mainly kept to himself during his hospital stay however he got along well with other patients on the unit and followed unit protocol. Patient was compliant with the medications and denied any side effects throughout hospital course. Patient was started on BuSpar 20 mg twice a day for anxiety, Remeron 15 mg daily at bedtime for mood/anxiety/insomnia, melatonin when necessary for sleep, Lyrica 100 mg 3 times a day for neuropathic pain, Geodon 20 mg twice a day for mood stabilization/psychosis. Patient spoke of his stressors and engaged in therapy both group and individual. Patient was also seen by medical team for history and physical exam. Throughout the course of the hospitalization patient gradually improved with regards to mood, anxiety, sleep and returned back to their baseline level of functioning. On the day of discharge patient denied any suicidal or homicidal ideations intent or plan denied any auditory or visual hallucinations. Patient endorsed wanting to live for his future and to find housing. The patient denied any access to guns or weapons. Patient denied any paranoia and did not endorse any delusions. Patient does have a significant history of substance abuse and was counseled on abstaining from all substances including alcohol and marijuana. Patient was offered however declined inpatient substance-abuse rehab. Patient was also counseled on the medications and need for regular compliance and was encouraged to follow-up with their outpatient appointment for mental health and also for primary care. SW attempted to help patient get back to [facility] upon discharge however patient is not allowed back. patients sister is also not allowing patient to go there to stay with her. SW to work further with patient today to either do referral to assisted vs hotel/ motel. Mental status exam: General Appearance: Patient appears to be mildly discheveled, stated age is alert, pleasant, and cooperative. Patient is in no acute distress and has improved hygiene and grooming Behavior: Patient is calmly seated without any agitated behavior. concrete. Speech: Patient's speech is fluent and nonpressured. concrete. monotone Mood/Affect: Patient reports their mood is "good", affect is congruent and constricted Suicidality/Homicidality: Patient denies having any suicidal or homicidal ideation intent or plan. Perceptions: Patient denies any auditory or visual hallucinations. Though content/process: There is no evidence of any delusional thought content and thought process is linear and goal-directed. concrete. Memory and concentration: AOX3, grossly intact for the purposes of this session. Can spell "WORLD" backwards correctly. Judgment and insight: chronically poor, however has improved with guarded prognosis Impression: Depressive disorder unspecified Alcohol use disorder Inhalant abuse Generalized anxiety disorder Plan: -Continue with discharge today as patient has improved and stabilized psychiatrically and is not currently an imminent threat to himself and/or others. Patient will remain at chronically elevated risk for harm to self and/or others due to his impulsivity and polysubstance abuse. -Continue medications: Geodon 20 mg twice a day for mood stabilization/psychosis, BuSpar 20 mg twice a day for anxiety, Remeron 15 mg daily at bedtime for mood/anxiety/insomnia, melatonin when necessary for sleep, Lyrica 100 mg 3 times a day for neuropathic pain. -Patient was counseled on the need for medication compliance and appropriate follow-up at mental health and also primary care for medical issues. Patient verbalized understanding and agreed. -Social work to help patient with disposition today. Patient has not not allowed back at [facility] or his sister's place and is currently homeless. Will review options of either assisted referral versus motel/hotel. Social work also to arrange for patients follow up appointments with [facility] for psychiatric care along with follow up with primary care provider. -Patient counseled on abstaining from recreational drugs and marijuana and alcohol. Was informed/educated on the adverse effects on their physical and mental health. Patient verbally agreed and understood. -Patient was instructed to return to the hospital or seek immediate medical care if their psychiatric or medical symptoms do worsen or reoccur. Allergies Allergy/AdvReac Type Severity Reaction Status Date / Time thimerosal Allergy Severe Rash/Hives/throat Verified 10/27/22 16:30 swelling neomycin Allergy Rash/Hives Verified 10/27/22 16:30 Laboratory Results WBC 5.4 k/uL (3.8-10.6) 10/28/22 19:43 RBC 3.73 m/uL (4.30-5.90) L 10/28/22 19:43 Hgb 11.3 gm/dL (13.0-17.5) L 10/28/22 19:43 Hct 34.7 % (39.0-53.0) L 10/28/22 19:43 MCV 93.0 fL (80.0-100.0) 10/28/22 19:43 MCH 30.4 pg (25.0-35.0) 10/28/22 19:43 MCHC 32.7 g/dL (31.0-37.0) 10/28/22 19:43 RDW 15.7 % (11.5-15.5) H 10/28/22 19:43 Plt Count 479 k/uL (150-450) H 10/28/22 19:43 MPV 7.3 10/28/22 19:43 Neutrophils % (Manual) 48 % 10/28/22 15:54 Lymphocytes % (Manual) 42 % 10/28/22 15:54 Monocytes % (Manual) 7 % 10/28/22 15:54 Eosinophils % (Manual) 3 % 10/28/22 15:54 Neutrophils # (Manual) 2.83 k/uL (1.3-7.7) 10/28/22 15:54 Lymphocytes # (Manual) 2.48 k/uL (1.0-4.8) 10/28/22 15:54 Monocytes # (Manual) 0.41 k/uL (0-1.0) 10/28/22 15:54 Eosinophils # (Manual) 0.18 k/uL (0-0.7) 10/28/22 15:54 Nucleated RBCs 0 /100 WBC (0-0) 10/28/22 15:54 Manual Slide Review Performed 10/28/22 15:54 Sodium 132 mmol/L (137-145) L 10/28/22 19:43 Potassium 3.7 mmol/L (3.5-5.1) 10/28/22 19:43 Chloride 96 mmol/L (98-107) L 10/28/22 19:43 Carbon Dioxide 24 mmol/L (22-30) 10/28/22 19:43 Anion Gap 12 mmol/L 10/28/22 19:43 BUN 11 mg/dL (9-20) 10/28/22 19:43 Creatinine 1.09 mg/dL (0.66-1.25) 10/28/22 19:43 Est GFR (CKD-EPI)AfAm 86 (>60 ml/min/1.73 sqM) 10/28/22 19:43 Est GFR (CKD-EPI)NonAf 75 (>60 ml/min/1.73 sqM) 10/28/22 19:43 Glucose 189 mg/dL (74-99) H 10/28/22 19:43 POC Glucose (mg/dL) 128 mg/dL (70-110) H 11/01/22 08:08 POC Glu Coil Rewind Machine Operator ID Julianna Mercado 11/01/22 08:08 Calcium 8.5 mg/dL (8.4-10.2) 10/28/22 19:43 Total Bilirubin 0.4 mg/dL (0.2-1.3) 10/28/22 19:43 AST 23 U/L (17-59) 10/28/22 19:43 ALT 22 U/L (4-49) 10/28/22 19:43 Alkaline Phosphatase 98 U/L (38-126) 10/28/22 19:43 Total Protein 5.9 g/dL (6.3-8.2) L 10/28/22 19:43 Albumin 3.4 g/dL (3.5-5.0) L 10/28/22 19:43 Triglycerides 259.00 mg/dL H 10/28/22 15:54 Cholesterol 152.00 mg/dL 10/28/22 15:54 LDL Cholesterol, Calc 55.5 mg/dL 10/28/22 15:54 VLDL Cholesterol, Calc 51.80 mg/dL H 10/28/22 15:54 HDL Cholesterol 44.70 mg/dL 10/28/22 15:54 Cholesterol/HDL Ratio 3.40 Ratio 10/28/22 15:54 Lipase 82 U/L (23-300) 10/28/22 19:43 TSH 0.674 mIU/L (0.465-4.680) 10/28/22 15:54 Coronavirus (PCR) Not Detected (Not Detectd) 10/27/22 17:00 Vital Signs Temp 97.7 F 11/01/22 06:45 Pulse 107 H 11/01/22 06:45 Resp 16 11/01/22 06:45 BP 148/88 11/01/22 06:45 Pulse Ox 95 10/31/22 06:54 FiO2 Patient Condition at Discharge: Stable Plan - Discharge Summary Discharge Rx Participant: No New Discharge Prescriptions: New busPIRone HCl [Buspar] 20 mg PO BID 14 Days #56 tab chlordiazePOXIDE HCl [Librium] 10 mg PO DAILY 2 Days #2 cap Mag Hydrox/Al Hydrox/Simeth [Maalox] 30 ml PO Q4HR PRN ml PRN Reason: Gi Upset Ziprasidone [Geodon] 20 mg PO BID 14 Days #28 cap Nicotine 14Mg/24Hr Patch [Habitrol] 1 patch TRANSDERM DAILY 14 Days #14 patch Ferrous Sulfate [Iron (65 MG Elemental)] 325 mg PO DAILY 14 Days #14 tab Continue Calcium Carbonate [Tums] 500 mg PO QID PRN 30 Days PRN Reason: Heartburn Ferrous Sulfate [Iron (65 MG Elemental)] 325 mg PO DAILY 30 Days tab Vitamin B Complex 1 cap PO DAILY 30 Days cap Cyclobenzaprine [Flexeril] 10 mg PO TID PRN PRN Reason: Muscle Spasm Thiamine [Vitamin B-1] 100 mg PO DAILY #30 tab metFORMIN HCL [Glucophage] 1,000 mg PO BID 14 Days #28 tab glipiZIDE [Glucotrol] 20 mg PO BID 14 Days #56 tab Pravastatin Sodium [Pravachol] 40 mg PO HS 14 Days #14 tab Propranolol HCl 40 mg PO BID 14 Days #28 tablet Multivitamins, Thera [Multivitamin (formulary)] 1 tab PO DAILY Sennosides/Docusate Sodium [Senna Plus 8.6-50 mg Softgel] 1 tab PO DAILY PRN PRN Reason: Constipation Melatonin 5 mg PO HS PRN PRN Reason: Insomnia Pregabalin [Lyrica] 100 mg PO TID Folic Acid 1 mg PO DAILY #30 tab Aspirin EC [Ecotrin Low Dose] 81 mg PO DAILY 14 Days #14 tab Pantoprazole [Protonix] 40 mg PO HS 14 Days #14 tab Mirtazapine [Remeron] 15 mg PO HS 14 Days #14 tab Discontinued busPIRone HCL 15 mg PO BID 30 Days tab HYDROcodone/APAP 7.5-325MG [[place] 7.5-325] 1 tab PO Q6HR PRN PRN Reason: Pain OLANZapine [ZyPREXA] 5 mg PO HS #30 tab Discharge Medication List Calcium Carbonate [Tums] 500 mg PO QID PRN 30 Days 08/17/21 [Rx] Ferrous Sulfate [Iron (65 MG Elemental)] 325 mg PO DAILY 30 Days tab 08/17/21 [Rx] Vitamin B Complex 1 cap PO DAILY 30 Days cap 08/17/21 [Rx] Multivitamins, Thera [Multivitamin (formulary)] 1 tab PO DAILY 10/07/21 [History] Cyclobenzaprine [Flexeril] 10 mg PO TID PRN 09/11/22 [History] Melatonin 5 mg PO HS PRN 09/11/22 [History] Pregabalin [Lyrica] 100 mg PO TID 09/11/22 [History] Sennosides/Docusate Sodium [Senna Plus 8.6-50 mg Softgel] 1 tab PO DAILY PRN 09/11/22 [History] Folic Acid 1 mg PO DAILY #30 tab 10/16/22 [Rx] Thiamine [Vitamin B-1] 100 mg PO DAILY #30 tab 05/22/23 [Rx] Aspirin EC [Ecotrin Low Dose] 81 mg PO DAILY 14 Days #14 tab 11/01/22 [Rx] Ferrous Sulfate [Iron (65 MG Elemental)] 325 mg PO DAILY 14 Days #14 tab [Rx] Mag Hydrox/Al Hydrox/Simeth [Maalox] 30 ml PO Q4HR PRN ml 11/01/22 [Rx] Mirtazapine [Remeron] 15 mg PO HS 14 Days #14 tab 11/01/22 [Rx] Nicotine 14Mg/24Hr Patch [Habitrol] 1 patch TRANSDERM DAILY 14 Days #14 patch 11/01/22 [Rx] Pantoprazole [Protonix] 40 mg PO HS 14 Days #14 tab 11/01/22 [Rx] Pravastatin Sodium [Pravachol] 40 mg PO HS 14 Days #14 tab 11/01/22 [Rx] Propranolol HCl 40 mg PO BID 14 Days #28 tablet 11/01/22 [Rx] Ziprasidone [Geodon] 20 mg PO BID 14 Days #28 cap 11/01/22 [Rx] busPIRone HCl [Buspar] 20 mg PO BID 14 Days #56 tab 11/01/22 [Rx] chlordiazePOXIDE HCl [Librium] 10 mg PO DAILY 2 Days #2 cap 11/01/22 [Rx] glipiZIDE [Glucotrol] 20 mg PO BID 14 Days #56 tab 11/01/22 [Rx] metFORMIN HCL [Glucophage] 1,000 mg PO BID 14 Days #28 tab 11/01/22 [Rx] Follow up Appointment(s)/Referral(s): Marlen Mobley MD [Primary Care Provider] - 1-2 days Activity/Diet/Wound Care/Special Instructions: Avoid the use of street drugs and alcohol. Take all medications as prescribed. When you are in need of refills on your medications, please contact your medical provider and/or outpatient psychiatrist to have this done. Please go to scheduled outpatient appointments for aftercare treatment. If symptoms return or become worse, call the crisis line at and/or go to the nearest emergency room for evaluation. Discharge Disposition: OTHER INSTITUTION NOT DEFINED
[2022-11-01 12:42] LABS: Glucose,Whole Blood 165 mg/dL (70-110)
== END 2022-11-01 12:48 | disposition home or self-care (01) | DRG 881 ==
LOC: EC 13:39 → 3MHU 19:52
PROVIDERS: ADMIT Psychiatry & Neurology Psychiatry; ATTEND Psychiatry & Neurology Psychiatry
DX: F32.A Depression, unspecified (principal); R45.851 Suicidal ideations; E11.9 Type 2 diabetes mellitus without complications; E78.5 Hyperlipidemia, unspecified; F10.21 Alcohol dependence, in remission; F17.290 Nicotine dependence, other tobacco product, uncomplicated; F18.10 Inhalant abuse, uncomplicated; F41.1 Generalized anxiety disorder; K74.60 Unspecified cirrhosis of liver; F43.10 Post-traumatic stress disorder, unspecified; F25.9 Schizoaffective disorder, unspecified; G47.00 Insomnia, unspecified; I10 Essential (primary) hypertension; Z79.82 Long term (current) use of aspirin; Z79.84 Long term (current) use of oral hypoglycemic drugs; Z79.899 Other long term (current) drug therapy; Z82.49 Family history of ischemic heart disease and other diseases of the circulatory system; Z96.643 Presence of artificial hip joint, bilateral; Z81.8 Family history of other mental and behavioral disorders; R11.0 Nausea; G62.9 Polyneuropathy, unspecified; G47.30 Sleep apnea, unspecified; Z59.00 Homelessness unspecified
CPT/HCPCS: 80053; 80061; 82075; 83036; 83690; 84443; 85025; 85027; 87635; 93005; 99285

== ENCOUNTER 2022-11-01 13:46 | Emergency (ER) | payer MEDICARE, OTHER ==
[2022-11-01 14:30] VITALS: TEMP 97.8
--- NOTE | 2022-11-01 15:19 | ED ---
Alcohol HPI - General Chief Complaint: Abdominal Pain Stated Complaint: Alcohol withdrawals Time Seen by Provider: 11/01/22 15:18 Source: patient, RN notes reviewed, old records reviewed Mode of arrival: ambulatory Limitations: no limitations - History of Present Illness Initial Comments: This 57-year-old male to the emergency department for evaluation. Patient comes in today for alcohol intoxication recent discharge from psychiatric C unit here in the hospital. Patient states he left went to the store regarding alcohol drinking comes in today for possible withdrawal changes or concern for pancreatitis with abdominal pain. 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) Previous Visits for Alcohol Intoxication?: Yes Recent Trauma: Yes Associated Symptoms: denies other symptoms Treatments Prior to Arrival: none Chronic Alcohol Use: Yes - Related Data Home Medications Medication Instructions Recorded Confirmed Multivitamins, Thera [Multivitamin 1 tab PO DAILY 10/07/21 11/05/22 (formulary)] Melatonin 5 mg PO HS PRN 09/11/22 11/05/22 Pregabalin [Lyrica] 100 mg PO TID 09/11/22 11/05/22 Sennosides/Docusate Sodium [Senna 1 tab PO DAILY PRN 09/11/22 11/05/22 Plus 8.6-50 mg Softgel] Previous Rx's Medication Instructions Recorded Calcium Carbonate [Tums] 500 mg PO QID PRN 30 Days 08/17/21 Ferrous Sulfate [Iron (65 MG 325 mg PO DAILY 30 Days tab 08/17/21 Elemental)] Vitamin B Complex 1 cap PO DAILY 30 Days cap 08/17/21 Folic Acid 1 mg PO DAILY #30 tab 10/16/22 Thiamine [Vitamin B-1] 100 mg PO DAILY #30 tab 10/16/22 Aspirin EC [Ecotrin Low Dose] 81 mg PO DAILY 14 Days #14 tab 11/01/22 Mag Hydrox/Al Hydrox/Simeth 30 ml PO Q4HR PRN ml 11/01/22 [Maalox] Mirtazapine [Remeron] 15 mg PO HS 14 Days #14 tab 11/01/22 Nicotine 14Mg/24Hr Patch [Habitrol] 1 patch TRANSDERM DAILY 14 Days 11/01/22 #14 patch Pantoprazole [Protonix] 40 mg PO HS 14 Days #14 tab 11/01/22 Pravastatin Sodium [Pravachol] 40 mg PO HS 14 Days #14 tab 11/01/22 Propranolol HCl 40 mg PO BID 14 Days #28 tablet 11/01/22 Ziprasidone [Geodon] 20 mg PO BID 14 Days #28 cap 11/01/22 busPIRone HCl [Buspar] 20 mg PO BID 14 Days #56 tab 11/01/22 glipiZIDE [Glucotrol] 20 mg PO BID 14 Days #56 tab 11/01/22 metFORMIN HCL [Glucophage] 1,000 mg PO BID 14 Days #28 tab 11/01/22 Cyclobenzaprine [Flexeril] 5 mg PO TID 5 Days #15 tablet 11/02/22 Lidocaine 5% Patch [Lidoderm 5% 1 patch TOPICAL DAILY PRN 14 Days 11/02/22 Patch] #14 patch Allergies Allergy/AdvReac Type Severity Reaction Status Date / Time thimerosal Allergy Severe Rash/Hives/throat Verified 11/13/22 15:29 swelling neomycin Allergy Rash/Hives Verified 11/13/22 15:29 Review of Systems ROS Statement: Those systems with pertinent positive or pertinent negative responses have been documented in the HPI. ROS Other: All systems not noted in ROS Statement are negative. Past Medical History Past Medical History: Diabetes Mellitus, GERD/Reflux, Hyperlipidemia, Hypertension, Liver Disease, Renal Disease, Sleep Apnea/CPAP/BIPAP Additional Past Medical History / Comment(s): Neuropathy, back pain, no CPAP use, Cirrhosis, "kidneys don't always work right." , pancreatitis History of Any Multi-Drug Resistant Organisms: None Reported Past Surgical History: Heart Catheterization, Joint Replacement, Orthopedic Surgery Additional Past Surgical History / Comment(s): Bilateral cataracts removed, bilateral hip replacements, right heal surgery with screws/plates/pins placed, L2-L4 cage infusion, Past Anesthesia/Blood Transfusion Reactions: No Reported Reaction Past Psychological History: Anxiety, Bipolar, Depression, PTSD, Schizoaffective Disorder Smoking Status: Current every day smoker, Vaper Past Alcohol Use History: Abuse, Daily, Heavy Past Drug Use History: None Reported - Past Family History Father Family Medical History: Myocardial Infarction ([place]) Additional Family Medical History / Comment(s): [place] in mid 30's. Mother Family Medical History: Dementia family Additional Family Medical History / Comment(s): Anxiety. General Exam Limitations: no limitations General appearance: alert, in no apparent distress, anxious Head exam: Present: atraumatic, normocephalic, normal inspection Eye exam: Present: normal appearance, PERRL, EOMI. Absent: scleral icterus, conjunctival injection, periorbital swelling ENT exam: Present: normal exam, mucous membranes moist Neck exam: Present: normal inspection. Absent: tenderness, meningismus, lympha denopathy Respiratory exam: Present: normal lung sounds bilaterally. Absent: respiratory distress, wheezes, rales, rhonchi, stridor Cardiovascular Exam: Present: normal rhythm, tachycardia, normal heart sounds. Absent: systolic murmur, diastolic murmur, rubs, gallop, clicks GI/Abdominal exam: Present: soft, normal bowel sounds. Absent: distended, tenderness, guarding, rebound, rigid Extremities exam: Present: normal inspection, full ROM, normal capillary refill. Absent: tenderness, pedal edema, joint swelling, calf tenderness Back exam: Present: normal inspection Neurological exam: Present: alert, oriented X3, CN II-XII intact Psychiatric exam: Present: normal affect, normal mood Skin exam: Present: warm, dry, intact, normal color. Absent: rash Course Vital Signs 11/01/22 11/01/22 11/01/22 14:27 16:59 18:19 Temperature 97.8 F Pulse Rate 138 H 125 H 121 H Respiratory 17 18 18 Rate Blood Pressure 90/63 94/68 125/71 O2 Sat by Pulse 98 97 100 Oximetry - Reevaluation(s) Reevaluation #1: 11/01/22 23:36 Medical records reviewed Reevaluation #2: 11/01/22 23:37 Symptoms improved Reevaluation #3: 11/01/22 23:37 Patient informed results questions answered Reevaluation #4: 11/01/22 23:37 Was pt. sent in by a medical professional or institution? @ -no Did you speak to anyone other than the patient for history? @ -no Did you review nursing and triage notes? @ -agree Were old charts reviewed? @ -ES recent discharge summary from psychiatric unit Differential Diagnosis? @ -prior EKG interpreted by me (3pts min.)? @ -no X-rays interpreted by me (1pt min.)? @ -no CT interpreted by me (1pt min.)? @ -no U/S interpreted by me (1pt. min.)? @ -no What testing was considered but not performed? (CT, X-rays, U/S, labs)? Why? @ -no What meds were considered but not given? Why? @ -no Did you discuss the management of the patient with other professionals? @ -no Did you reconcile home meds? @ -no Was smoking cessation discussed for >3mins.? @ -no Was critical care preformed (if so, how long)? @ -no Were there social determinants of health that impacted care today? How? (Homel essness, low income, unemployed, alcoholism, drug addiction, transportation, low edu. Level, literacy, decrease access to med. care, usp, rehab)? @ -no Was there de-escalation of care discussed even if they declined? (Discuss DNR or withdrawal of care, Hospice)? @ -no What co-morbidities impacted this encounter? (DM, HTN, Smoking, COPD, CAD, Cancer, CVA, Hep., AIDS, mental health diagnosis, sleep apnea, morbid obesity)? @ -none Was patient admitted / discharged? @ -57 male who is currently feeling well feels good, informed of lab values returned normal, symptoms are improved, patient states he does feel good for discharge home not currently suicidal or homicidal. Discharged Undiagnosed new problem with uncertain prognosis? @ -no Drug Therapy requiring intensive monitoring for toxicity (Heparin, Nitro, Insulin, Cardizem)? @ -no Were any procedures done? @ -no Diagnosis/symptom? @ -Abdominal pain nausea vomiting Acute, or Chronic, or Acute on Chronic? @ -Acute on chronic Uncomplicated (without systemic symptoms) or Complicated (systemic symptoms)? @ -uncomplicated Side effects of treatment? @ -no Exacerbation, Progression, or Severe Exacerbation] @ -no Poses a threat to life or bodily function? @ -no Reevaluation #5: 11/01/22 23:37 Differential Abdominal Pain Women: Appendicitis, Cholecystitis, diverticulosis, ischemic bowel, pancreatitis, hepatitis, UTI, gastroenteritis, AAA, incarcerated hernia, bowel obstruction, c onstipation, inflammatory bowel, hepatitis, peptic ulcer disease, splenic infarction, perforated viscus, vulvitis, ovarian torsion, PID, kidney stone, placenta abruption, this is not meant to be an all-inclusive list Medical Decision Making - Medical Decision Making 57 male who is currently feeling well feels good, informed of lab values returned normal, symptoms are improved, patient states he does feel good for discharge home not currently suicidal or homicidal. - Lab Data Result diagrams: 11/01/22 16:42 11/01/22 17:32 Lab Results 11/01/22 11/01/22 Range/Units 16:42 17:32 WBC 7.2 (3.8-10.6) k/uL RBC 4.21 L (4.30-5.90) m/uL Hgb 12.6 L (13.0-17.5) gm/dL Hct 39.0 (39.0-53.0) % MCV 92.6 (80.0-100.0) fL MCH 29.9 (25.0-35.0) pg MCHC 32.3 (31.0-37.0) g/dL RDW 15.6 H (11.5-15.5) % Plt Count 500 H (150-450) k/uL MPV 8.1 Neutrophils % 46 % Lymphocytes % 39 % Monocytes % 8 % Eosinophils % 3 % Basophils % 1 % Neutrophils # 3.3 (1.3-7.7) k/uL Lymphocytes # 2.8 (1.0-4.8) k/uL Monocytes # 0.6 (0-1.0) k/uL Eosinophils # 0.2 (0-0.7) k/uL Basophils # 0.1 (0-0.2) k/uL Sodium 140 (137-145) mmol/L Potassium 4.2 (3.5-5.1) mmol/L Chloride 102 (98-107) mmol/L Carbon Dioxide 26 (22-30) mmol/L Anion Gap 12 mmol/L BUN 15 (9-20) mg/dL Creatinine 0.97 (0.66-1.25) mg/dL Est GFR (CKD-EPI)AfAm >90 (>60 ml/min/1.73 sqM) Est GFR (CKD-EPI)NonAf 86 (>60 ml/min/1.73 sqM) Glucose 53 L (74-99) mg/dL Calcium 9.2 (8.4-10.2) mg/dL Total Bilirubin 0.3 (0.2-1.3) mg/dL AST 29 (17-59) U/L ALT 27 (4-49) U/L Alkaline Phosphatase 81 (38-126) U/L Total Protein 6.6 (6.3-8.2) g/dL Albumin 3.8 (3.5-5.0) g/dL Amylase 64 (30-110) U/L Lipase 251 (23-300) U/L Serum Alcohol 43 mg/dL - EKG Data -: EKG Interpreted by Me Disposition Clinical Impression: Abdominal colic, Abdominal pain, Alcohol intoxication, Depression Disposition: HOME SELF-CARE Condition: Fair Instructions (If sedation given, give patient instructions): Abdominal Pain (ED) Is patient prescribed a controlled substance at d/c from ED?: No Referrals: Marlen Mobley MD [Primary Care Provider] - 1-2 days Time of Disposition: 18:40
[2022-11-01] MEDS ORDERED: PANTOPRAZOLE 40 MG/10 ML VIAL IVP STA (16:36)
[2022-11-01] MEDS ORDERED: ONDANSETRON 4 MG/2 ML VIAL IVP STA (16:36)
[2022-11-01] MEDS ORDERED: SODIUM CHLORIDE 0.9% 1,000 ML IV STA (16:36)
[2022-11-01] MEDS ORDERED: LORazepam 2 MG/ML INJ IV STA (16:36)
[2022-11-01] MEDS: MORPHINE SULFATE 4 MG/ML SYRINGE IVP STA ×2 (16:50→18:51)
[2022-11-01 17:00] VITALS: RESP 18
[2022-11-01 17:01] LABS: Basophils # (A) 0.1 k/uL (0-0.2); Basophils % (A) 1 %; Eosinophils # (A) 0.2 k/uL (0-0.7); Eosinophils % (A) 3 %; HGB 12.6 gm/dL (13.0-17.5); Lymphocytes # (A) 2.8 k/uL (1.0-4.8); Lymphocytes % (A) 39 %; MCH 29.9 pg (25.0-35.0); MCHC 32.3 g/dL (31.0-37.0); MCV 92.6 fL (80.0-100.0); Mean Platelet Volume 8.1; Monocytes # (A) 0.6 k/uL (0-1.0); Monocytes % (A) 8 %; Neutrophils # (A) 3.3 k/uL (1.3-7.7); Neutrophils % (A) 46 %; Platelet Count 500 k/uL (150-450); RBC 4.21 m/uL (4.30-5.90); RDW 15.6 % (11.5-15.5); WBC 7.2 k/uL (3.8-10.6)
[2022-11-01 18:02] LABS: ALT 27 U/L (4-49); African American GFR (CKD) >90 (>60 ml/min/1.73 sqM); Albumin 3.8 g/dL (3.5-5.0); Alcohol 43 mg/dL; Amylase 64 U/L (30-110); Anion Gap 12 mmol/L; Blood Urea Nitrogen 15 mg/dL (9-20); Calcium 9.2 mg/dL (8.4-10.2); Carbon Dioxide 26 mmol/L (22-30); Chloride 102 mmol/L (98-107); Glucose 53 mg/dL (74-99); Lipase 251 U/L (23-300); Non-African American GFR(CKD) 86 (>60 ml/min/1.73 sqM); Sodium 140 mmol/L (137-145); Total Bilirubin 0.3 mg/dL (0.2-1.3); Total Protein 6.6 g/dL (6.3-8.2)
[2022-11-01 18:20] VITALS: BP 125/71; PULSE 121
[2022-11-01 18:32] LABS: AST 29 U/L (17-59); Alkaline Phosphatase 81 U/L (38-126); Potassium 4.2 mmol/L (3.5-5.1)
== END 2022-11-01 19:05 | disposition home or self-care (01) ==
LOC: EC 13:46
DX: F10.129 Alcohol abuse with intoxication, unspecified (principal); F32.A Depression, unspecified; R10.84 Generalized abdominal pain; E11.36 Type 2 diabetes mellitus with diabetic cataract; E11.40 Type 2 diabetes mellitus with diabetic neuropathy, unspecified; G47.30 Sleep apnea, unspecified; F17.290 Nicotine dependence, other tobacco product, uncomplicated; Z86.59 Personal history of other mental and behavioral disorders; Z88.8 Allergy status to other drugs, medicaments and biological substances
CPT/HCPCS: 36415; 80053; 82150; 83690; 85025; 99284; 96374; 96375 ×3; 96361; G0480; J2060; J2270; J2405; C9113; 80320

== ENCOUNTER 2022-11-01 20:25 | Emergency (ER) | payer MEDICARE, OTHER ==
[2022-11-01 21:15] VITALS: TEMP 97.3
--- NOTE | 2022-11-01 22:22 | ED ---
Psych HPI - General Chief Complaint: Psychiatric Symptoms Stated Complaint: Mental Health Time Seen by Provider: 11/01/22 21:40 Source: patient, RN notes reviewed, old records reviewed Mode of arrival: ambulatory - History of Present Illness Initial Comments: This is a 49-year-old male who presents today for evaluation. This patient's [facility] facility was seen by myself earlier today for possible alcohol withdrawal patient is showing no signs of withdrawal then no current signs of alcohol withdrawal patient currently states that he is seeing things hearing voices and would like psychiatric evaluation. Patient was discharged for psychiatric unit today. MD Complaint: suicidal ideation, feels depressed, altered mental status (Hearing voices) -: unknown Associated Psychiatric Symptoms: racing thoughts, auditory hallucinations, visual hallucinations, delusions Quality: constant, changing over time, getting worse Improves With: none Worsens With: none Context: recent alcohol abuse, recent drug abuse, not taking psychiatric medications, significant life stressor Associated Symptoms: denies other symptoms Treatments Prior to Arrival: placed on mental health hold - Related Data Home Medications Medication Instructions Recorded Confirmed Multivitamins, Thera [Multivitamin 1 tab PO DAILY 10/07/21 11/01/22 (formulary)] Cyclobenzaprine [Flexeril] 10 mg PO TID PRN 09/11/22 11/01/22 Melatonin 5 mg PO HS PRN 09/11/22 11/01/22 Pregabalin [Lyrica] 100 mg PO TID 09/11/22 11/01/22 Sennosides/Docusate Sodium [Senna 1 tab PO DAILY PRN 09/11/22 11/01/22 Plus 8.6-50 mg Softgel] Previous Rx's Medication Instructions Recorded Calcium Carbonate [Tums] 500 mg PO QID PRN 30 Days 08/17/21 Ferrous Sulfate [Iron (65 MG 325 mg PO DAILY 30 Days tab 08/17/21 Elemental)] Vitamin B Complex 1 cap PO DAILY 30 Days cap 08/17/21 Folic Acid 1 mg PO DAILY #30 tab 10/16/22 Thiamine [Vitamin B-1] 100 mg PO DAILY #30 tab 10/16/22 Aspirin EC [Ecotrin Low Dose] 81 mg PO DAILY 14 Days #14 tab 11/01/22 Mag Hydrox/Al Hydrox/Simeth 30 ml PO Q4HR PRN ml 11/01/22 [Maalox] Mirtazapine [Remeron] 15 mg PO HS 14 Days #14 tab 11/01/22 Nicotine 14Mg/24Hr Patch [Habitrol] 1 patch TRANSDERM DAILY 14 Days 11/01/22 #14 patch Pantoprazole [Protonix] 40 mg PO HS 14 Days #14 tab 11/01/22 Pravastatin Sodium [Pravachol] 40 mg PO HS 14 Days #14 tab 11/01/22 Propranolol HCl 40 mg PO BID 14 Days #28 tablet 11/01/22 Ziprasidone [Geodon] 20 mg PO BID 14 Days #28 cap 11/01/22 busPIRone HCl [Buspar] 20 mg PO BID 14 Days #56 tab 11/01/22 chlordiazePOXIDE HCl [Librium] 10 mg PO DAILY 2 Days #2 cap 11/01/22 glipiZIDE [Glucotrol] 20 mg PO BID 14 Days #56 tab 11/01/22 metFORMIN HCL [Glucophage] 1,000 mg PO BID 14 Days #28 tab 11/01/22 Allergies Allergy/AdvReac Type Severity Reaction Status Date / Time thimerosal Allergy Severe Rash/Hives/throat Verified 11/01/22 22:00 swelling neomycin Allergy Rash/Hives Verified 11/01/22 22:00 Review of Systems ROS Statement: Those systems with pertinent positive or pertinent negative responses have been documented in the HPI. ROS Other: All systems not noted in ROS Statement are negative. Past Medical History Past Medical History: Diabetes Mellitus, GERD/Reflux, Hyperlipidemia, Hypertension, Liver Disease, Renal Disease, Sleep Apnea/CPAP/BIPAP Additional Past Medical History / Comment(s): Neuropathy, back pain, no CPAP use, Cirrhosis, "kidneys don't always work right." , pancreatitis History of Any Multi-Drug Resistant Organisms: None Reported Past Surgical History: Heart Catheterization, Joint Replacement, Orthopedic Surgery Additional Past Surgical History / Comment(s): Bilateral cataracts removed, bilateral hip replacements, right heal surgery with screws/plates/pins placed, L2-L4 cage infusion, Past Anesthesia/Blood Transfusion Reactions: No Reported Reaction Past Psychological History: Anxiety, Bipolar, Depression, PTSD, Schizoaffective Disorder Smoking Status: Current every day smoker, Vaper Past Alcohol Use History: Abuse, Daily, Heavy Past Drug Use History: None Reported - Past Family History Father Family Medical History: Myocardial Infarction ([place]) Additional Family Medical History / Comment(s): [place] in mid 30's. Mother Family Medical History: Dementia family Additional Family Medical History / Comment(s): Anxiety. General Exam Limitations: no limitations General appearance: appears intoxicated, anxious Head exam: Present: atraumatic, normocephalic, normal inspection Eye exam: Present: normal appearance, PERRL, EOMI. Absent: scleral icterus, conjunctival injection, periorbital swelling ENT exam: Present: normal exam, mucous membranes moist Neck exam: Present: normal inspection. Absent: tenderness, meningismus, lymphadenopathy Respiratory exam: Present: normal lung sounds bilaterally. Absent: respiratory distress, wheezes, rales, rhonchi, stridor Cardiovascular Exam: Present: normal rhythm, tachycardia, normal heart sounds. Absent: systolic murmur, diastolic murmur, rubs, gallop, clicks GI/Abdominal exam: Present: soft, normal bowel sounds. Absent: distended, tenderness, guarding, rebound, rigid Extremities exam: Present: normal inspection, full ROM, normal capillary refill. Absent: tenderness, pedal edema, joint swelling, calf tenderness Back exam: Present: normal inspection Neurological exam: Present: alert, oriented X3, CN II-XII intact Psychiatric exam: Present: normal affect, normal mood Skin exam: Present: warm, dry, intact, normal color. Absent: rash Course Vital Signs 11/01/22 21:12 Temperature 97.3 F L Pulse Rate 130 H Respiratory 17 Rate Blood Pressure 107/69 O2 Sat by Pulse 98 Oximetry - Reevaluation(s) Reevaluation #1: 11/01/22 22:34 Medical record is reviewed Reevaluation #2: 11/01/22 22:34 medical clear for psychiatric evaluation Medical Decision Making - Medical Decision Making 49 male seen eval by psychiatry, patient deemed stable for discharge home Disposition Clinical Impression: Acute anxiety, Depression, Acute psychosis Disposition: HOME SELF-CARE Condition: Fair Instructions (If sedation given, give patient instructions): Abuse of Alcohol (ED) Is patient prescribed a controlled substance at d/c from ED?: No Referrals: None,Stated [Primary Care Provider] - 1-2 days Forms: AA Meetings [address] - [facility], AA Meetings [facility], [facility] Time of Disposition: 23:30
[2022-11-01 23:51] VITALS: BP 112/88; PULSE 53; RESP 18
== END 2022-11-01 23:51 | disposition home or self-care (01) ==
LOC: EC 20:25
DX: F23 Brief psychotic disorder (principal); F32.A Depression, unspecified; F41.9 Anxiety disorder, unspecified; E11.40 Type 2 diabetes mellitus with diabetic neuropathy, unspecified; E11.36 Type 2 diabetes mellitus with diabetic cataract; I10 Essential (primary) hypertension; F17.290 Nicotine dependence, other tobacco product, uncomplicated; Z88.8 Allergy status to other drugs, medicaments and biological substances; Z79.899 Other long term (current) drug therapy
CPT/HCPCS: 82075; 99284

== ENCOUNTER 2022-11-02 03:03 | Emergency (ER) | payer MEDICARE, OTHER ==
[2022-11-02 03:19] VITALS: RESP 20
[2022-11-02] MEDS ORDERED: MORPHINE SULFATE 2 MG/ML SYRINGE IM STA ×2 (04:14→06:18)
[2022-11-02] MEDS ORDERED: LIDOCAINE 5% PATCH TOPICAL STA (04:14)
[2022-11-02] MEDS ORDERED: KETOROLAC 15 MG/ML 1 ML VIAL IM STA (04:14)
--- NOTE | 2022-11-02 05:51 | CT ---
EXAMINATION TYPE: CT lumbar spine wo con DATE OF EXAM: 11/02/2022 4:55 AM COMPARISON: CT lumbar spine October 01, 2022 HISTORY: Recent back surgery. Trauma injury with pain CT DLP: 1691 mGycm Automated exposure control for dose reduction was used. Unenhanced CT of the lumbar spine was performed. Bone and soft tissue window settings are submitted as well as coronal and sagittal reconstructions. There are 5 lumbar type vertebra redemonstrated. There are posterior interpedicular rods and screws r edemonstrated running from L3 through S1 levels bilaterally. There is persistent additional fixating screws in the bilateral sacroiliac joints. Posterior decompression changes with laminectomy defects a nd spinous process resection in the mid to lower lumbar spine is redemonstrated. Persistent artificia l disc material L3-L4 through L5-S1 levels is redemonstrated. Alignment is stable with slight grade 1 anterolisthesis L3 on L4 and grade 1 retrolisthesis L4 on L5. There is no acute displaced fracture. Vertebral body heights and disc space heights are maintained above the L3 level. Artifact from metall ic hardware makes evaluation slightly suboptimal at levels of surgical change. No suspicious incident al finding in the visualized abdomen or upper pelvis. IMPRESSION: As above. No acute displaced fracture. Postsurgical change redemonstrated with stable ali gnment.
[2022-11-02] MEDS ORDERED: ACET/COD 300 MG/30 MG STARTER PACK 6 TAB BTL PO STA (06:18)
--- NOTE | 2022-11-02 06:21 | ED ---
General Adult HPI - General Chief complaint: Back Pain/Injury Stated complaint: Fall, Back Pain Time Seen by Provider: 11/02/22 04:09 Source: patient, RN notes reviewed, old records reviewed Mode of arrival: ambulatory Limitations: no limitations - History of Present Illness Initial comments: Patient is a 57-year-old male who presents emergency Department complaining of low back pain. Follow his car and landed on his back just prior to arrival. Denies hitting his head. Denies loss consciousness. Denies any other pain other than left-sided paraspinal muscle tenderness palpation. Worse with movement. Denies any saddle anesthesias. Denies any urinary bowel incontinence or retention. Denies any lower extremity paralysis or weakness. States he does have a history of somewhat recent lumbar spine surgery. Is concerned regarding the hardware. Presents for further evaluation at this time. Denies any midline spine tenderness palpation. Was ambulatory after the fall. No other acute complaints. - Related Data Home Medications Medication Instructions Recorded Confirmed Multivitamins, Thera [Multivitamin 1 tab PO DAILY 10/07/21 11/01/22 (formulary)] Cyclobenzaprine [Flexeril] 10 mg PO TID PRN 09/11/22 11/01/22 Melatonin 5 mg PO HS PRN 09/11/22 11/01/22 Pregabalin [Lyrica] 100 mg PO TID 09/11/22 11/01/22 Sennosides/Docusate Sodium [Senna 1 tab PO DAILY PRN 09/11/22 11/01/22 Plus 8.6-50 mg Softgel] Previous Rx's Medication Instructions Recorded Calcium Carbonate [Tums] 500 mg PO QID PRN 30 Days 08/17/21 Ferrous Sulfate [Iron (65 MG 325 mg PO DAILY 30 Days tab 08/17/21 Elemental)] Vitamin B Complex 1 cap PO DAILY 30 Days cap 08/17/21 Folic Acid 1 mg PO DAILY #30 tab 10/16/22 Thiamine [Vitamin B-1] 100 mg PO DAILY #30 tab 10/16/22 Aspirin EC [Ecotrin Low Dose] 81 mg PO DAILY 14 Days #14 tab 11/01/22 Mag Hydrox/Al Hydrox/Simeth 30 ml PO Q4HR PRN ml 11/01/22 [Maalox] Mirtazapine [Remeron] 15 mg PO HS 14 Days #14 tab 11/01/22 Nicotine 14Mg/24Hr Patch [Habitrol] 1 patch TRANSDERM DAILY 14 Days 11/01/22 #14 patch Pantoprazole [Protonix] 40 mg PO HS 14 Days #14 tab 11/01/22 Pravastatin Sodium [Pravachol] 40 mg PO HS 14 Days #14 tab 11/01/22 Propranolol HCl 40 mg PO BID 14 Days #28 tablet 11/01/22 Ziprasidone [Geodon] 20 mg PO BID 14 Days #28 cap 11/01/22 busPIRone HCl [Buspar] 20 mg PO BID 14 Days #56 tab 11/01/22 chlordiazePOXIDE HCl [Librium] 10 mg PO DAILY 2 Days #2 cap 11/01/22 glipiZIDE [Glucotrol] 20 mg PO BID 14 Days #56 tab 11/01/22 metFORMIN HCL [Glucophage] 1,000 mg PO BID 14 Days #28 tab 11/01/22 Cyclobenzaprine [Flexeril] 5 mg PO TID 5 Days #15 tablet 11/02/22 Lidocaine 5% Patch [Lidoderm 5% 1 patch TOPICAL DAILY PRN 14 Days 11/02/22 Patch] #14 patch Allergies Allergy/AdvReac Type Severity Reaction Status Date / Time thimerosal Allergy Severe Rash/Hives/throat Verified 11/02/22 03:19 swelling neomycin Allergy Rash/Hives Verified 11/02/22 03:19 Review of Systems ROS Statement: Those systems with pertinent positive or pertinent negative responses have been documented in the HPI. Review of Systems: CONST: Denies fever EYES: Denies blurry vision ENT: Denies nasal congestion C/V: Denies Chest pain RESP: Denies shortness of breath GI: Denies abdominal pain : Denies dysuria SKIN: Denies rash. MSK: Endorses paraspinal muscle tenderness NEURO: Denies headache ROS Other: All systems not noted in ROS Statement are negative. Past Medical History Past Medical History: Diabetes Mellitus, GERD/Reflux, Hyperlipidemia, Hypertension, Liver Disease, Renal Disease, Sleep Apnea/CPAP/BIPAP Additional Past Medical History / Comment(s): Neuropathy, back pain, no CPAP use, Cirrhosis, "kidneys don't always work right." , pancreatitis History of Any Multi-Drug Resistant Organisms: None Reported Past Surgical History: Heart Catheterization, Joint Replacement, Orthopedic Surgery Additional Past Surgical History / Comment(s): Bilateral cataracts removed, bilateral hip replacements, right heal surgery with screws/plates/pins placed, L2-L4 cage infusion, Past Anesthesia/Blood Transfusion Reactions: No Reported Reaction Past Psychological History: Anxiety, Bipolar, Depression, PTSD, Schizoaffective Disorder Smoking Status: Current every day smoker, Vaper Past Alcohol Use History: Abuse, Daily, Heavy Past Drug Use History: None Reported - Past Family History Father Family Medical History: Myocardial Infarction ([place]) Additional Family Medical History / Comment(s): [place] in mid 30's. Mother Family Medical History: Dementia family Additional Family Medical History / Comment(s): Anxiety. General Exam - General Exam Comments Initial Comments: General: Appears in no acute distress. HEAD: Normal with no signs of head trauma. Negative Valdes sign. Negative raccoon eyes. EYES: PERRLA, EOMI, conjunctiva normal, no discharge. Pupils 3 mm equal bilaterally. ENT: Hearing grossly intact, normal oropharynx. RESPIRATORY: Clear breath sounds bilaterally. C/V: Regular rate and rhythm. S1 and S2 auscultated. Peripheral pulses 2+ intact throughout. ABD: Abd is soft, nontender, nondistended EXT: Normal range of motion, no obvious deformity. Pelvis is stable. No midline cervical or thoracic spinal tenderness to palpation. Minimal lumbar spine tenderness to palpation in the midline but mostly in the left paraspinal muscles. No radiation of the pain. No obvious step-offs or deformities. SKIN: No rashes or lesions observed on exposed skin. NEURO: Alert and oriented x 4. Cranial nerves II-XII intact. No focal sensory or strength deficits. GCS of 15. NIH is 0. No focal deficits. Limitations: no limitations Course Vital Signs 11/02/22 03:16 Temperature 98.2 F Pulse Rate 110 H Respiratory 20 Rate Blood Pressure 135/88 O2 Sat by Pulse 100 Oximetry Medical Decision Making - Medical Decision Making Was pt. sent in by a medical professional or institution (, PA, LABORER MINE, urgent care, hospital, or alf...) When possible be specific @ -No Did you speak to anyone other than the patient for history (EMS, parent, family, police, friend...)? What history was obtained from this source @ -No Did you review nursing and triage notes (agree or disagree)? Why? @ -I reviewed and agree with nursing and triage notes Were old charts reviewed (outside hosp., previous admission, EMS record, old EKG, old radiological studies, urgent care reports/EKG's, alf records)? Report findings @ -No old charts were reviewed Differential Diagnosis (chest pain, altered mental status, abdominal pain women, abdominal pain men, vaginal bleeding, weakness, fever, dyspnea, syncope, headache, dizziness, GI bleed, back pain, seizure, CVA, palpatations, mental health, musculoskeletal)? @ -Differential Musculoskeletal Muscular strain, contusion, ligament sprain, fracture, arthritis, septic arthritis, bursitis, cellulitis, muscle spasm, nerve compression, DVT, arterial occlusion, herpes zoster, electrolyte abnormality, tumor.... This is not meant to be in all inclusive list EKG interpreted by me (3pts min.). @ -None done X-rays interpreted by me (1pt min.). @ -None done CT interpreted by me (1pt min.). @ -CT lumbar spine reveal no evidence of obvious acute fracture. Hardware appears intact and well aligned. No obvious acute injury. Radiology does corroborate this. U/S interpreted by me (1pt. min.). @ -None done What testing was considered but not performed or refused? (CT, X-rays, U/S, labs)? Why? @ -None What meds were considered but not given or refused? Why? @ -None Did you discuss the management of the patient with other professionals (professionals i.e. , PA, LABORER MINE, lab, RT, psych nurse, clinical social work aide, wedding transportation driver, teacher, tank officer, director of casework department)? Give summary @ -No Was smoking cessation discussed for >3mins.? @ -No Was critical care preformed (if so, how long)? @ -No Were there social determinants of health that impacted care today? How? (Homelessness, low income, unemployed, alcoholism, drug addiction, transportation, low edu. Level, literacy, decrease access to med. care, group home, rehab)? @ -No Was there de-escalation of care discussed even if they declined (Discuss DNR or withdrawal of care, Hospice)? DNR status @ -No What co-morbidities impacted this encounter? (DM, HTN, Smoking, COPD, CAD, Cancer, CVA, ARF, Chemo, Hep., AIDS, mental health diagnosis, sleep apnea, morbid obesity)? @ -None Was patient admitted / discharged? Hospital course, mention meds given and route, prescriptions, significant lab abnormalities, going to OR and other pertinent info. @ -Based on the patient's presentation and physical exam, I'm concerned for was likely a muscle strain or sprain, however cannot rule out lumbar spine injury or recent surgery damage. Patient has no signs or symptoms of cauda equina syndrome at this time. Vital signs within acceptable limits. No other obvious injury. We'll obtain CT imaging of the lumbar spine as well as provide analgesic medications with a lidocaine patch, morphine injection, Toradol injection. He was in agreement this plan. Imaging returned and show no evidence of acute injury. Discussed results with the patient. Exam remains unchanged, with some improvement of pain. He'll be discharged home at this time with strict return precautions. He will follow-up with his surgeon. Patient was in agreement this plan. I will provide the patient with a prescription for Tylenol 3 starter pack, lidocaine patch, Flexeril. I instructed the patient to follow up with their PCP in the next 1-3 days. I explained that the patient should return to the emergency department if they experience any worsening symptoms. Strict return precautions were discussed with the patient. The patient expressed understanding of these instructions. I answered all questions that the patient had. The patient was discharged home in good condition with their prescriptions and follow up information. Undiagnosed new problem with uncertain prognosis? @ -No Drug Therapy requiring intensive monitoring for toxicity (Heparin, Nitro, Insulin, Cardizem)? @ -No Were any procedures done? @ -No Diagnosis/symptom? @ -Lower back strain, lumbar strain Acute, or Chronic, or Acute on Chronic? @ -Acute Uncomplicated (without systemic symptoms) or Complicated (systemic symptoms)? @ -Uncomplicated Side effects of treatment? @ -No Exacerbation, Progression, or Severe Exacerbation? @ -No Poses a threat to life or bodily function? How? (Chest pain, [place], [place], pneumonia, PE, COPD, DKA, ARF, appy, cholecystitis, CVA, Diverticulitis, Homicidal, Suicidal, threat to staff... and all critical care pts) @ -No Disposition Clinical Impression: Lumbar strain Disposition: HOME SELF-CARE Condition: Good Instructions (If sedation given, give patient instructions): Low Back Strain (ED) Prescriptions: Cyclobenzaprine [Flexeril] 5 mg PO TID 5 Days #15 tablet Lidocaine 5% Patch [Lidoderm 5% Patch] 1 patch TOPICAL DAILY PRN 14 Days #14 patch PRN Reason: Pain Is patient prescribed a controlled substance at d/c from ED?: No Referrals: Marlen Mobley MD [Primary Care Provider] - 1-2 days Time of Disposition: 06:15
[2022-11-02 06:35] VITALS: BP 139/88; PULSE 129; TEMP 98
== END 2022-11-02 06:35 | disposition home or self-care (01) ==
LOC: EC 03:03
DX: S39.012A Strain of muscle, fascia and tendon of lower back, initial encounter (principal); E11.36 Type 2 diabetes mellitus with diabetic cataract; E11.40 Type 2 diabetes mellitus with diabetic neuropathy, unspecified; I10 Essential (primary) hypertension; G47.30 Sleep apnea, unspecified; F17.290 Nicotine dependence, other tobacco product, uncomplicated; Z88.8 Allergy status to other drugs, medicaments and biological substances; X58.XXXA Exposure to other specified factors, initial encounter
CPT/HCPCS: 72131; 99284; 96372 ×3; J2270; J1885

== ENCOUNTER 2022-11-02 06:34 | Emergency (ER) | payer MEDICARE, OTHER ==
[2022-11-02 06:45] VITALS: BP 180/100; PULSE 115; RESP 20; TEMP 97.9
--- NOTE | 2022-11-02 07:35 | ED ---
General Adult HPI - General Chief complaint: Recheck/Abnormal Lab/Rx Stated complaint: Numbness in legs Time Seen by Provider: 11/02/22 07:07 Source: patient Mode of arrival: ambulatory Limitations: no limitations - History of Present Illness Initial comments: 57-year-old male presents to the ED with a chief complaint of numbness. Patient was seen this morning and evaluated due to back pain status post "falling out of his car and landing on his back". Additionally patient notes had recent lumbar surgery. CT this morning showed hardware in place with no acute fractures. CT noted no findings suggestive of acute injury. Discharged with Flexeril and lidocaine patches. She states upon walking back to his car, started to experience numbness in both legs, left worse than right. Patient describes as numbness as pins and needles. Denies any new injury. Denies weakness of the legs. No other complaints. - Related Data Home Medications Medication Instructions Recorded Confirmed Multivitamins, Thera [Multivitamin 1 tab PO DAILY 10/07/21 11/01/22 (formulary)] Cyclobenzaprine [Flexeril] 10 mg PO TID PRN 09/11/22 11/01/22 Melatonin 5 mg PO HS PRN 09/11/22 11/01/22 Pregabalin [Lyrica] 100 mg PO TID 09/11/22 11/01/22 Sennosides/Docusate Sodium [Senna 1 tab PO DAILY PRN 09/11/22 11/01/22 Plus 8.6-50 mg Softgel] Previous Rx's Medication Instructions Recorded Calcium Carbonate [Tums] 500 mg PO QID PRN 30 Days 08/17/21 Ferrous Sulfate [Iron (65 MG 325 mg PO DAILY 30 Days tab 08/17/21 Elemental)] Vitamin B Complex 1 cap PO DAILY 30 Days cap 08/17/21 Folic Acid 1 mg PO DAILY #30 tab 10/16/22 Thiamine [Vitamin B-1] 100 mg PO DAILY #30 tab 10/16/22 Aspirin EC [Ecotrin Low Dose] 81 mg PO DAILY 14 Days #14 tab 11/01/22 Mag Hydrox/Al Hydrox/Simeth 30 ml PO Q4HR PRN ml 11/01/22 [Maalox] Mirtazapine [Remeron] 15 mg PO HS 14 Days #14 tab 11/01/22 Nicotine 14Mg/24Hr Patch [Habitrol] 1 patch TRANSDERM DAILY 14 Days 11/01/22 #14 patch Pantoprazole [Protonix] 40 mg PO HS 14 Days #14 tab 11/01/22 Pravastatin Sodium [Pravachol] 40 mg PO HS 14 Days #14 tab 11/01/22 Propranolol HCl 40 mg PO BID 14 Days #28 tablet 11/01/22 Ziprasidone [Geodon] 20 mg PO BID 14 Days #28 cap 11/01/22 busPIRone HCl [Buspar] 20 mg PO BID 14 Days #56 tab 11/01/22 chlordiazePOXIDE HCl [Librium] 10 mg PO DAILY 2 Days #2 cap 11/01/22 glipiZIDE [Glucotrol] 20 mg PO BID 14 Days #56 tab 11/01/22 metFORMIN HCL [Glucophage] 1,000 mg PO BID 14 Days #28 tab 11/01/22 Cyclobenzaprine [Flexeril] 5 mg PO TID 5 Days #15 tablet 11/02/22 Lidocaine 5% Patch [Lidoderm 5% 1 patch TOPICAL DAILY PRN 14 Days 11/02/22 Patch] #14 patch Allergies Allergy/AdvReac Type Severity Reaction Status Date / Time thimerosal Allergy Severe Rash/Hives/throat Verified 11/02/22 06:45 swelling neomycin Allergy Rash/Hives Verified 11/02/22 06:45 Review of Systems ROS Statement: Those systems with pertinent positive or pertinent negative responses have been documented in the HPI. ROS Other: All systems not noted in ROS Statement are negative. Past Medical History Past Medical History: Diabetes Mellitus, GERD/Reflux, Hyperlipidemia, Hypertension, Liver Disease, Renal Disease, Sleep Apnea/CPAP/BIPAP Additional Past Medical History / Comment(s): Neuropathy, back pain, no CPAP us e, Cirrhosis, "kidneys don't always work right." , pancreatitis History of Any Multi-Drug Resistant Organisms: None Reported Past Surgical History: Heart Catheterization, Joint Replacement, Orthopedic Surgery Additional Past Surgical History / Comment(s): Bilateral cataracts removed, bilateral hip replacements, right heal surgery with screws/plates/pins placed, L2-L4 cage infusion, Past Anesthesia/Blood Transfusion Reactions: No Reported Reaction Past Psychological History: Anxiety, Bipolar, Depression, PTSD, Schizoaffective Disorder Smoking Status: Current every day smoker, Vaper Past Alcohol Use History: Abuse, Daily, Heavy Past Drug Use History: None Reported - Past Family History Father Family Medical History: Myocardial Infarction ([place]) Additional Family Medical History / Comment(s): [place] in mid 30's. Mother Family Medical History: Dementia family Additional Family Medical History / Comment(s): Anxiety. General Exam Limitations: no limitations General appearance: alert, in no apparent distress Head exam: Present: atraumatic Eye exam: Present: normal appearance Respiratory exam: Present: normal lung sounds bilaterally Cardiovascular Exam: Present: regular rate, normal rhythm GI/Abdominal exam: Present: soft Extremities exam: Present: other (Strength and sensation equal and symmetric in bilateral lower extremities.) Neurological exam: Present: alert, oriented X3 Course Vital Signs 11/02/22 06:42 Temperature 97.9 F Pulse Rate 115 H Respiratory 20 Rate Blood Pressure 180/100 O2 Sat by Pulse 100 Oximetry Medical Decision Making - Medical Decision Making Was pt. sent in by a medical professional or institution (, PA, LAUNDRY ROUTE DRIVER, urgent care, hospital, or skilled nursing...) When possible be specific @ -No Did you speak to anyone other than the patient for history (EMS, parent, family, police, friend...)? What history was obtained from this source @ -No Did you review nursing and triage notes (agree or disagree)? Why? @ -I reviewed and agree with nursing and triage notes Were old charts reviewed (outside hosp., previous admission, EMS record, old EKG, old radiological studies, urgent care reports/EKG's, skilled nursing records)? Report findings @ -Old charts reviewed showing prior visit this morning. At that time had a CT that was negative for any acute findings. Differential Diagnosis (chest pain, altered mental status, abdominal pain women, abdominal pain men, vaginal bleeding, weakness, fever, dyspnea, syncope, headache, dizziness, GI bleed, back pain, seizure, CVA, palpatations, mental he alth, musculoskeletal)? @ -Differential Weakness: Hypoglycemia, shock, sepsis, hyponatremia, anemia, infection, [place], ETOH, adverse medicine reaction, overdose, stroke, this is not meant to be an all-inclusive list. EKG interpreted by me (3pts min.). @ -As above X-rays interpreted by me (1pt min.). @ -None done CT interpreted by me (1pt min.). @ -None done U/S interpreted by me (1pt. min.). @ -None done What testing was considered but not performed or refused? (CT, X-rays, U/S, labs)? Why? @ -None What meds were considered but not given or refused? Why? @ -None Did you discuss the management of the patient with other professionals (professionals i.e. , PA, LAUNDRY ROUTE DRIVER, lab, RT, psych nurse, social services manager, cloth sander, teacher, contract officer, rehabilitation caseworker)? Give summary @ -No Was smoking cessation discussed for >3mins.? @ -No Was critical care preformed (if so, how long)? @ -No Were there social determinants of health that impacted care today? How? (Homelessness, low income, unemployed, alcoholism, drug addiction, tr ansportation, low edu. Level, literacy, decrease access to med. care, longterm, rehab)? @ -No Was there de-escalation of care discussed even if they declined (Discuss DNR or withdrawal of care, Hospice)? DNR status @ -No What co-morbidities impacted this encounter? (DM, HTN, Smoking, COPD, CAD, Cancer, CVA, ARF, Chemo, Hep., AIDS, mental health diagnosis, sleep apnea, morbid obesity)? @ -Diabetes. Was patient admitted / discharged? Hospital course, mention meds given and route, prescriptions, significant lab abnormalities, going to OR and other pertinent info. @ -Discharged. Patient has a known history of neuropathy with similar symptoms in the past. Patient states symptoms today are consistent with this. Patient had CT imaging of his back this morning that was negative for any acute findings. At this time, felt additional workup not warranted. Patient discharged home in stable conditions. At time of discharge vital signs stable. Undiagnosed new problem with uncertain prognosis? @ -No Drug Therapy requiring intensive monitoring for toxicity (Heparin, Nitro, Insulin, Cardizem)? @ -No Were any procedures done? @ -No Diagnosis/symptom? @ -Neuropathy Acute, or Chronic, or Acute on Chronic? @ -Acute on chronic Uncomplicated (without systemic symptoms) or Complicated (systemic symptoms)? @ -default Side effects of treatment? @ -No Exacerbation, Progression, or Severe Exacerbation? @ -No Poses a threat to life or bodily function? How? (Chest pain, [place], [place], pneumonia, PE, COPD, DKA, ARF, appy, cholecystitis, CVA, Diverticulitis, Homicidal, Suicidal, threat to staff... and all critical care pts) @ -No Disposition Clinical Impression: Neuropathy Disposition: HOME SELF-CARE Additional Instructions: Please return to the Emergency Department if symptoms worsen or any other concerns. Is patient prescribed a controlled substance at d/c from ED?: No Referrals: Marlen Mobley MD [Primary Care Provider] - 1-2 days Decision Time: 07:39
== END 2022-11-02 08:25 | disposition home or self-care (01) ==
LOC: EC 06:34
DX: E11.40 Type 2 diabetes mellitus with diabetic neuropathy, unspecified (principal); I10 Essential (primary) hypertension; G47.30 Sleep apnea, unspecified; F17.290 Nicotine dependence, other tobacco product, uncomplicated; F41.9 Anxiety disorder, unspecified; F31.9 Bipolar disorder, unspecified; Z79.899 Other long term (current) drug therapy; Z79.84 Long term (current) use of oral hypoglycemic drugs
CPT/HCPCS: 99283

== ENCOUNTER 2022-11-02 13:06 | Emergency (ER) | payer MEDICARE, OTHER ==
[2022-11-02 13:47] VITALS: BP 102/60; PULSE 103; RESP 20; TEMP 98.3
[2022-11-02] MEDS ORDERED: ACETAMINOPHEN TAB 500 MG TAB PO STA (14:30)
--- NOTE | 2022-11-02 14:31 | ED ---
Fall HPI - General Chief Complaint: Fall Stated Complaint: Fall, Legs Numbness Time Seen by Provider: 11/02/22 14:23 Source: patient Mode of arrival: wheelchair - History of Present Illness Initial Comments: Patient is a 57 -year-old male presenting for evaluation of fall. This is patient's third visit today for this complaint. Patient fell out of the car yesterday landing on his back. He denies loss of consciousness and head trauma. Denies blood thinner use. Patient reports intermittent numbness to the back of his thighs. Patient does admit that this is a chronic issue he has history of diabetes with neuropathy. He also has history of previous lumbar surgery. He denies numbness and tingling in the groin, buttock region. Denies loss of bowel bladder function. Denies focal weakness. Denies burning with urination, blood in the urine, trouble urinating. - Related Data Home Medications Medication Instructions Recorded Confirmed Multivitamins, Thera [Multivitamin 1 tab PO DAILY 10/07/21 11/01/22 (formulary)] Cyclobenzaprine [Flexeril] 10 mg PO TID PRN 09/11/22 11/01/22 Melatonin 5 mg PO HS PRN 09/11/22 11/01/22 Pregabalin [Lyrica] 100 mg PO TID 09/11/22 11/01/22 Sennosides/Docusate Sodium [Senna 1 tab PO DAILY PRN 09/11/22 11/01/22 Plus 8.6-50 mg Softgel] Previous Rx's Medication Instructions Recorded Calcium Carbonate [Tums] 500 mg PO QID PRN 30 Days 08/17/21 Ferrous Sulfate [Iron (65 MG 325 mg PO DAILY 30 Days tab 08/17/21 Elemental)] Vitamin B Complex 1 cap PO DAILY 30 Days cap 08/17/21 Folic Acid 1 mg PO DAILY #30 tab 10/16/22 Thiamine [Vitamin B-1] 100 mg PO DAILY #30 tab 10/16/22 Aspirin EC [Ecotrin Low Dose] 81 mg PO DAILY 14 Days #14 tab 11/01/22 Mag Hydrox/Al Hydrox/Simeth 30 ml PO Q4HR PRN ml 11/01/22 [Maalox] Mirtazapine [Remeron] 15 mg PO HS 14 Days #14 tab 06/07/23 Nicotine 14Mg/24Hr Patch [Habitrol] 1 patch TRANSDERM DAILY 14 Days 11/01/22 #14 patch Pantoprazole [Protonix] 40 mg PO HS 14 Days #14 tab 11/01/22 Pravastatin Sodium [Pravachol] 40 mg PO HS 14 Days #14 tab 11/01/22 Propranolol HCl 40 mg PO BID 14 Days #28 tablet 11/01/22 Ziprasidone [Geodon] 20 mg PO BID 14 Days #28 cap 11/01/22 busPIRone HCl [Buspar] 20 mg PO BID 14 Days #56 tab 11/01/22 chlordiazePOXIDE HCl [Librium] 10 mg PO DAILY 2 Days #2 cap 11/01/22 glipiZIDE [Glucotrol] 20 mg PO BID 14 Days #56 tab 11/01/22 metFORMIN HCL [Glucophage] 1,000 mg PO BID 14 Days #28 tab 11/01/22 Cyclobenzaprine [Flexeril] 5 mg PO TID 5 Days #15 tablet 11/02/22 Lidocaine 5% Patch [Lidoderm 5% 1 patch TOPICAL DAILY PRN 14 Days 11/02/22 Patch] #14 patch Allergies Allergy/AdvReac Type Severity Reaction Status Date / Time thimerosal Allergy Severe Rash/Hives/throat Verified 11/02/22 13:47 swelling neomycin Allergy Rash/Hives Verified 11/02/22 13:47 Review of Systems ROS Statement: Those systems with pertinent positive or pertinent negative responses have been documented in the HPI. ROS Other: All systems not noted in ROS Statement are negative. Past Medical History Past Medical History: Diabetes Mellitus, GERD/Reflux, Hyperlipidemia, Hypertension, Liver Disease, Renal Disease, Sleep Apnea/CPAP/BIPAP Additional Past Medical History / Comment(s): Neuropathy, back pain, no CPAP use, Cirrhosis, "kidneys don't always work right." , pancreatitis History of Any Multi-Drug Resistant Organisms: None Reported Past Surgical History: Heart Catheterization, Joint Replacement, Orthopedic Surgery Additional Past Surgical History / Comment(s): Bilateral cataracts removed, bilateral hip replacements, right heal surgery with screws/plates/pins placed, L2-L4 cage infusion, Past Anesthesia/Blood Transfusion Reactions: No Reported Reaction Past Psychological History: Anxiety, Bipolar, Depression, PTSD, Schizoaffective Disorder Smoking Status: Current every day smoker, Vaper Past Alcohol Use History: Abuse, Daily, Heavy Past Drug Use History: None Reported - Past Family History Father Family Medical History: Myocardial Infarction ([place]) Additional Family Medical History / Comment(s): [place] in mid 30's. Mother Family Medical History: Dementia family Additional Family Medical History / Comment(s): Anxiety. General Exam Limitations: no limitations General appearance: alert, in no apparent distress Head exam: Present: atraumatic, normocephalic, normal inspection Eye exam: Present: normal appearance, PERRL, EOMI. Absent: scleral icterus, conjunctival injection, periorbital swelling Respiratory exam: Present: normal lung sounds bilaterally. Absent: respiratory distress, wheezes, rales, rhonchi, stridor Cardiovascular Exam: Present: regular rate, normal rhythm, normal heart sounds. Absent: systolic murmur, diastolic murmur, rubs, gallop, clicks Back exam: Present: normal inspection, full ROM, paraspinal tenderness (lumbar bilatral ). Absent: vertebral tenderness Expanded Sensory exam: Upper Extremity Light Touch: Normal, Lower Extremity Light Touch: Normal Motor strength exam: RUE: 5, LUE: 5, RLE: 5, LLE: 5 Skin exam: Present: warm, dry, intact, normal color. Absent: rash Course Vital Signs 11/02/22 13:45 Temperature 98.3 F Pulse Rate 103 H Respiratory 20 Rate Blood Pressure 102/60 O2 Sat by Pulse 99 Oximetry Medical Decision Making - Medical Decision Making Was pt. sent in by a medical professional or institution (, PA, CURRICULUM SPECIALIST, urgent care, hospital, or detention...) When possible be specific @ -No Did you speak to anyone other than the patient for history (EMS, parent, family, police, friend...)? What history was obtained from this source @ -No Did you review nursing and triage notes (agree or disagree)? Why? @ -I reviewed and agree with nursing and triage notes Were old charts reviewed (outside hosp., previous admission, EMS record, old EKG, old radiological studies, urgent care reports/EKG's, detention records)? Report findings @ -Reviewed previous lumbar spine CT obtained today which shows no acute displaced fracture. There is postsurgical change redemonstrated with stable alignment Differential Diagnosis (chest pain, altered mental status, abdominal pain women, abdominal pain men, vaginal bleeding, weakness, fever, dyspnea, syncope, headache, dizziness, GI bleed, back pain, seizure, CVA, palpatations, mental health)? @ -Differential Back Pain: Strain, zoster, cauda equina syndrome, epidural abscess, vertebral osteomyelitis, discitis, fracture, subluxation, disc herniation, DJD, spinal stenosis, dissection, AAA, pancreatitis, peptic ulcer disease, pyelonephritis, kidney stone, this is not meant to be an all-inclusive list. EKG interpreted by me (3pts min.). @ -As above X-rays interpreted by me (1pt min.). @ -None done CT interpreted by me (1pt min.). @ -None done U/S interpreted by me (1pt. min.). @ -None done] What testing was considered but not performed or refused? (CT, X-rays, U/S, labs)? Why? @ -None What meds were considered but not given or refused? Why? @ -Ordered Tylenol however patient refused Did you discuss the management of the patient with other professionals (professionals i.e. , PA, CURRICULUM SPECIALIST, lab, RT, psych nurse, forensic social worker, sheet metal duct worker supervisor, teacher, correctional probation officer, case specialist)? Give summary @ -No Was smoking cessation discussed for >3mins.? @ -No Was critical care preformed (if so, how long)? @ -No Were there social determinants of health that impacted care today? How? (Homelessness, low income, unemployed, alcoholism, drug addiction, transportation, low edu. Level, literacy, decrease access to med. care, senior care, rehab)? @ -No Was there de-escalation of care discussed even if they declined (Discuss DNR or withdrawal of care, Hospice)? DNR status @ -No What co-morbidities impacted this encounter? (DM, HTN, Smoking, COPD, CAD, Cancer, CVA, ARF, Chemo, Hep., AIDS, mental health diagnosis, sleep apnea, morbid obesity)? @ -None Was patient admitted / discharged? Hospital course, mention meds given and route, prescriptions, significant lab abnormalities, going to OR and other p ertinent info. @ -Patient presenting for back pain and numbness in the bilateral thighs. No symptoms or signs of cauda equina. No neurological deficit on exam. Sensation is intact. Full range of motion of the back and lower extremities. No midline tenderness. Patient already had a computed tomography scan of his lumbar spine today which was interpreted by myself/radiology showing no acute changes. patient was already prescribed pain medication before his discharge earlier today. He will take as needed for pain and follow-up with primary care provider Undiagnosed new problem with uncertain prognosis? @ -No Drug Therapy requiring intensive monitoring for toxicity (Heparin, Nitro, Insulin, Cardizem)? @ -No Were any procedures done? @ -No Diagnosis/symptom? @ -fall, numbness Acute, or Chronic, or Acute on Chronic? @ -acute Uncomplicated (without systemic symptoms) or Complicated (systemic symptoms)? @ -uncomplicated Side effects of treatment? @ -No Exacerbation, Progression, or Severe Exacerbation? @ -No Poses a threat to life or bodily function? How? (Chest pain, [place], [place], pneumonia, PE, COPD, DKA, ARF, appy, cholecystitis, CVA, Diverticulitis, Homicidal, Suicidal, threat to staff... and all critical care pts) @No Dr. Chavez is my attending Disposition Clinical Impression: Fall, Numbness Disposition: HOME SELF-CARE Condition: Good Instructions (If sedation given, give patient instructions): Fall Prevention for Older Adults (ED), Peripheral Neuropathy (ED) Additional Instructions: Take medication prescribed previously. Please follow-up with your primary care provider in 1-2 days. Return to the emergency department if you experience new, concerning, or worsening symptoms. Is patient prescribed a controlled substance at d/c from ED?: No Referrals: None,Stated [Primary Care Provider] - 1-2 days Time of Disposition: 14:31
== END 2022-11-02 15:30 | disposition home or self-care (01) ==
LOC: EC 13:06
DX: R20.0 Anesthesia of skin (principal); E11.9 Type 2 diabetes mellitus without complications; I10 Essential (primary) hypertension; G47.30 Sleep apnea, unspecified; F41.9 Anxiety disorder, unspecified; F31.9 Bipolar disorder, unspecified; F17.290 Nicotine dependence, other tobacco product, uncomplicated; Z88.6 Allergy status to analgesic agent; Z88.8 Allergy status to other drugs, medicaments and biological substances; Z79.899 Other long term (current) drug therapy; V89.9XXA Person injured in unspecified vehicle accident, initial encounter
CPT/HCPCS: 99284

== ENCOUNTER 2022-11-03 05:39 | Emergency (ER) | payer MEDICARE, OTHER ==
[2022-11-03 05:44] VITALS: BP 135/88; PULSE 115; RESP 20; TEMP 98.2
[2022-11-03] MEDS ORDERED: LORazepam 1 MG TAB PO STA (05:48)
[2022-11-03] MEDS ORDERED: IBUPROFEN 800 MG TAB PO STA (05:48)
[2022-11-03] MEDS ORDERED: ACETAMINOPHEN TAB 500 MG TAB PO STA (05:48)
--- NOTE | 2022-11-03 05:49 | ED ---
General Adult HPI - General Chief complaint: Back Pain/Injury Stated complaint: Back Pain Time Seen by Provider: 11/03/22 05:41 Source: patient, RN notes reviewed, old records reviewed Mode of arrival: wheelchair Limitations: no limitations - History of Present Illness Initial comments: Patient is a 57-year-old male who presents emergency department for low back pain. Patient is a frequent visitor to our emergency department, and this is the fourth visit in the last 24 hours for identical complaints. I evaluated him last night. There are no new complaints. Only complains of continued back pain. No new symptoms. Denies any lower extremity paralysis. Denies any saddle anesthesias. Denies any urinary or bowel incontinence or retention. Ortiz s endorse chronic bilateral lower extremity tingling sensation which has been present chronically and is not an acute process. Denies any chest pain or shortness of breath. Denies any other new injuries. He is asking for pain medications as well as Ativan as he states he has high anxiety right now. No other acute complaints at this time. - Related Data Home Medications Medication Instructions Recorded Confirmed Multivitamins, Thera [Multivitamin 1 tab PO DAILY 10/07/21 11/01/22 (formulary)] Cyclobenzaprine [Flexeril] 10 mg PO TID PRN 09/11/22 11/01/22 Melatonin 5 mg PO HS PRN 09/11/22 11/01/22 Pregabalin [Lyrica] 100 mg PO TID 09/11/22 11/01/22 Sennosides/Docusate Sodium [Senna 1 tab PO DAILY PRN 09/11/22 11/01/22 Plus 8.6-50 mg Softgel] Previous Rx's Medication Instructions Recorded Calcium Carbonate [Tums] 500 mg PO QID PRN 30 Days 08/17/21 Ferrous Sulfate [Iron (65 MG 325 mg PO DAILY 30 Days tab 08/17/21 Elemental)] Vitamin B Complex 1 cap PO DAILY 30 Days cap 08/17/21 Folic Acid 1 mg PO DAILY #30 tab 10/16/22 Thiamine [Vitamin B-1] 100 mg PO DAILY #30 tab 10/16/22 Aspirin EC [Ecotrin Low Dose] 81 mg PO DAILY 14 Days #14 tab 11/01/22 Mag Hydrox/Al Hydrox/Simeth 30 ml PO Q4HR PRN ml 11/01/22 [Maalox] Mirtazapine [Remeron] 15 mg PO HS 14 Days #14 tab 11/01/22 Nicotine 14Mg/24Hr Patch [Habitrol] 1 patch TRANSDERM DAILY 14 Days 11/01/22 #14 patch Pantoprazole [Protonix] 40 mg PO HS 14 Days #14 tab 11/01/22 Pravastatin Sodium [Pravachol] 40 mg PO HS 14 Days #14 tab 11/01/22 Propranolol HCl 40 mg PO BID 14 Days #28 tablet 11/01/22 Ziprasidone [Geodon] 20 mg PO BID 14 Days #28 cap 11/01/22 busPIRone HCl [Buspar] 20 mg PO BID 14 Days #56 tab 11/01/22 chlordiazePOXIDE HCl [Librium] 10 mg PO DAILY 2 Days #2 cap 11/01/22 glipiZIDE [Glucotrol] 20 mg PO BID 14 Days #56 tab 11/01/22 metFORMIN HCL [Glucophage] 1,000 mg PO BID 14 Days #28 tab 11/01/22 Cyclobenzaprine [Flexeril] 5 mg PO TID 5 Days #15 tablet 11/02/22 Lidocaine 5% Patch [Lidoderm 5% 1 patch TOPICAL DAILY PRN 14 Days 11/02/22 Patch] #14 patch Allergies Allergy/AdvReac Type Severity Reaction Status Date / Time thimerosal Allergy Severe Rash/Hives/throat Verified 11/03/22 05:43 swelling neomycin Allergy Rash/Hives Verified 11/03/22 05:43 Review of Systems ROS Statement: Those systems with pertinent positive or pertinent negative responses have been documented in the HPI. Review of Systems: CONST: Denies fever EYES: Denies blurry vision ENT: Denies nasal congestion C/V: Denies Chest pain RESP: Denies shortness of breath GI: Denies abdominal pain : Denies dysuria SKIN: Denies rash. MSK: Endorses low back pain NEURO: Denies headache ROS Other: All systems not noted in ROS Statement are negative. Past Medical History Past Medical History: Diabetes Mellitus, GERD/Reflux, Hyperlipidemia, Hypertension, Liver Disease, Renal Disease, Sleep Apnea/CPAP/BIPAP Additional Past Medical History / Comment(s): Neuropathy, back pain, no CPAP use, Cirrhosis, "kidneys don't always work right." , pancreatitis History of Any Multi-Drug Resistant Organisms: None Reported Past Surgical History: Heart Catheterization, Joint Replacement, Orthopedic Surgery Additional Past Surgical History / Comment(s): Bilateral cataracts removed, bilateral hip replacements, right heal surgery with screws/plates/pins placed, L2-L4 cage infusion, Past Anesthesia/Blood Transfusion Reactions: No Reported Reaction Past Psychological History: Anxiety, Bipolar, Depression, PTSD, Schizoaffective Disorder Smoking Status: Current every day smoker, Vaper Past Alcohol Use History: Abuse, Daily, Heavy Past Drug Use History: None Reported - Past Family History Father Family Medical History: Myocardial Infarction ([place]) Additional Family Medical History / Comment(s): [place] in mid 30's. Mother Family Medical History: Dementia family Additional Family Medical History / Comment(s): Anxiety. General Exam - General Exam Comments Initial Comments: General: Appears in no acute distress. HEAD: Normal with no signs of head trauma. EYES: EOMI ENT: Hearing grossly intact, normal oropharynx. RESPIRATORY: Clear breath sounds bilaterally. No wheezes, rales, or rhonchi. C/V: Regular rate and rhythm. S1 and S2 auscultated. Peripheral pulses 2+ intact throughout. ABD: Abd is soft, nontender, nondistended EXT: Normal range of motion, no obvious deformity. No midline cervical, thoracic, lumbar spine tenderness palpation. Tender to palpation over the left paraspinal muscles in the lumbar spine secondary to a fall yesterday. SKIN: No rashes or lesions observed on exposed skin. NEURO: Alert and oriented 4. Able to ambulate without difficulty. No focal sensory or strength deficits. GCS of 15. Limitations: no limitations Course Vital Signs 11/03/22 05:41 Temperature 98.2 F Pulse Rate 115 H Respiratory 20 Rate Blood Pressure 135/88 O2 Sat by Pulse 99 Oximetry Medical Decision Making - Medical Decision Making Was pt. sent in by a medical professional or institution (, PA, STATISTICAL MODELER, urgent care, hospital, or skilled nursing...) When possible be specific @ -No Did you speak to anyone other than the patient for history (EMS, parent, family, police, friend...)? What history was obtained from this source @ -No Did you review nursing and triage notes (agree or disagree)? Why? @ -I reviewed and agree with nursing and triage notes Were old charts reviewed (outside hosp., previous admission, EMS record, old EKG, old radiological studies, urgent care reports/EKG's, skilled nursing records)? Report findings @ -Old charts reviewed from the last 3 visits over the last 24 hours. Differential Diagnosis (chest pain, altered mental status, abdominal pain women, abdominal pain men, vaginal bleeding, weakness, fever, dyspnea, syncope, headache, dizziness, GI bleed, back pain, seizure, CVA, palpatations, mental health, musculoskeletal)? @ -Acute on chronic back pain, lumbar strain. This list is not all inclusive. EKG interpreted by me (3pts min.). @ -None done X-rays interpreted by me (1pt min.). @ -None done CT interpreted by me (1pt min.). @ -None done U/S interpreted by me (1pt. min.). @ -None done What testing was considered but not performed or refused? (CT, X-rays, U/S, labs)? Why? @ -None What meds were considered but not given or refused? Why? @ -None Did you discuss the management of the patient with other professionals (professionals i.e. , PA, STATISTICAL MODELER, lab, RT, psych nurse, director of social work, diagrammer, teacher, admissions officer, case packer)? Give summary @ -No Was smoking cessation discussed for >3mins.? @ -No Was critical care preformed (if so, how long)? @ -No Were there social determinants of health that impacted care today? How? (Homelessness, low income, unemployed, alcoholism, drug addiction, transportation, low edu. Level, literacy, decrease access to med. care, snf, rehab)? @ -No Was there de-escalation of care discussed even if they declined (Discuss DNR or withdrawal of care, Hospice)? DNR status @ -No What co-morbidities impacted this encounter? (DM, HTN, Smoking, COPD, CAD, Cancer, CVA, ARF, Chemo, Hep., AIDS, mental health diagnosis, sleep apnea, morbid obesity)? @ -None Was patient admitted / discharged? Hospital course, mention meds given and route, prescriptions, significant lab abnormalities, going to OR and other pertinent info. @ -Based on the patient's presentation and physical exam, presents again with left paraspinal muscle tenderness to palpation after a fall suffered yesterday. Diagnosed with a low back strain yesterday after negative CT imaging for any acute process. He is still having pain at the same site. No changes. No concern for cauda equina syndrome at this time. Has chronic lower extremity tingling and paresthesias. He ambulates without difficulty. Has no other acute complaints. States he feels anxious and is asking for anxiety medications as well as pain medications. Vital signs are within except for limits. I spoke with the patient, and he does currently have a lidocaine patch on. States that he has minimal improvement in his pain. Recommended that he follow up with his PCP if he wants stronger pain medications. He needs to continue to use [id number] analgesic meds as well as the Flexeril lidocaine patches I prescribed him yesterday. He has no new complaints to make me suspicious for cauda equina syndrome which we discussed. i informed him i cannot provide him with any additional pain medications at this time but if he would like a small dose of ativan for anxiety i'm willing to do so. he was in agreement this plan. he will receive tylenol as well as motrin in addition to a small dose of ativan. strict return precautions discussed. instructed him he needs to follow up with his pcp. he was in agreement this plan. I informed him if he wants more pain medications of Ventolin Tylenol or Motrin which he can obtain over the counter, he needs to follow up with his PCP. I instructed the patient to follow up with their PCP in the next 1-3 days. I explained that the patient should return to the emergency department if they experience any worsening symptoms. Strict return precautions were discussed with the patient. The patient expressed understanding of these instructions. I answered all questions that the patient had. The patient was discharged home in good condition with their prescriptions and follow up information. Undiagnosed new problem with uncertain prognosis? @ -No Drug Therapy requiring intensive monitoring for toxicity (Heparin, Nitro, Insulin, Cardizem)? @ -No Were any procedures done? @ -No Diagnosis/symptom? @ -Anxiety, lumbar strain Acute, or Chronic, or Acute on Chronic? @ -Acute on chronic Uncomplicated (without systemic symptoms) or Complicated (systemic symptoms)? @ -Uncomplicated Side effects of treatment? @ -No Exacerbation, Progression, or Severe Exacerbation? @ -No Poses a threat to life or bodily function? How? (Chest pain, [place], [place], pneumonia, PE, COPD, DKA, ARF, appy, cholecystitis, CVA, Diverticulitis, Homicidal, Suicidal, threat to staff... and all critical care pts) @ -[No] Disposition Clinical Impression: Back pain, Anxiety Disposition: HOME SELF-CARE Condition: Good Instructions (If sedation given, give patient instructions): Acute Low Back Pain (ED) Is patient prescribed a controlled substance at d/c from ED?: No Referrals: None,Stated [Primary Care Provider] - 1-2 days Time of Disposition: 05:50
== END 2022-11-03 06:12 | disposition home or self-care (01) ==
LOC: EC 05:39
DX: S39.012A Strain of muscle, fascia and tendon of lower back, initial encounter (principal); F41.9 Anxiety disorder, unspecified; E11.9 Type 2 diabetes mellitus without complications; I10 Essential (primary) hypertension; G47.30 Sleep apnea, unspecified; F17.290 Nicotine dependence, other tobacco product, uncomplicated; F31.9 Bipolar disorder, unspecified; Z79.899 Other long term (current) drug therapy; Z88.8 Allergy status to other drugs, medicaments and biological substances; X58.XXXA Exposure to other specified factors, initial encounter
CPT/HCPCS: 99284

== ENCOUNTER 2022-11-04 22:23 | Emergency (ER) | payer MEDICARE, OTHER ==
[2022-11-04 22:44] VITALS: TEMP 98.2
[2022-11-04] MEDS ORDERED: KETOROLAC 15 MG/ML 1 ML VIAL IVP STA (23:49)
[2022-11-05] MEDS ORDERED: FAMOTIDINE 20 MG/2 ML VIAL IV STA (00:37)
[2022-11-05] MEDS ORDERED: MORPHINE SULFATE 4 MG/ML SYRINGE IVP STA (00:38)
--- NOTE | 2022-11-05 00:44 | ED ---
Abdominal Pain HPI - General Chief Complaint: Abdominal Pain Stated Complaint: Abd pain Time Seen by Provider: 11/04/22 23:43 Source: patient, RN notes reviewed Mode of arrival: ambulatory Limitations: no limitations - History of Present Illness Initial Comments: This is a 57-year-old male who presents to the emergency department for abdominal pain. Patient states that he had 4.5 pints of vodka this evening, and shortly afterwards started to develop epigastric pain. He has minor associated nausea. States that he has a history of pancreatitis and the pain feels similar. Patient is very well-known to this emergency department for mental health issues and alcohol intoxication. Denies any fevers, chills, sore throat, cough, dyspnea, chest pain, palpitations, vomiting, diarrhea, back pain, or headaches. MD Complaint: abdominal pain - Related Data Home Medications Medication Instructions Recorded Confirmed Multivitamins, Thera [Multivitamin 1 tab PO DAILY 10/07/21 11/01/22 (formulary)] Cyclobenzaprine [Flexeril] 10 mg PO TID PRN 09/11/22 11/01/22 Melatonin 5 mg PO HS PRN 09/11/22 11/01/22 Pregabalin [Lyrica] 100 mg PO TID 09/11/22 11/01/22 Sennosides/Docusate Sodium [Senna 1 tab PO DAILY PRN 09/11/22 11/01/22 Plus 8.6-50 mg Softgel] Previous Rx's Medication Instructions Recorded Calcium Carbonate [Tums] 500 mg PO QID PRN 30 Days 08/17/21 Ferrous Sulfate [Iron (65 MG 325 mg PO DAILY 30 Days tab 08/17/21 Elemental)] Vitamin B Complex 1 cap PO DAILY 30 Days cap 08/17/21 Folic Acid 1 mg PO DAILY #30 tab 10/16/22 Thiamine [Vitamin B-1] 100 mg PO DAILY #30 tab 10/16/22 Aspirin EC [Ecotrin Low Dose] 81 mg PO DAILY 14 Days #14 tab 11/01/22 Mag Hydrox/Al Hydrox/Simeth 30 ml PO Q4HR PRN ml 11/01/22 [Maalox] Mirtazapine [Remeron] 15 mg PO HS 14 Days #14 tab 11/01/22 Nicotine 14Mg/24Hr Patch [Habitrol] 1 patch TRANSDERM DAILY 14 Days 11/01/22 #14 patch Pantoprazole [Protonix] 40 mg PO HS 14 Days #14 tab 11/01/22 Pravastatin Sodium [Pravachol] 40 mg PO HS 14 Days #14 tab 11/01/22 Propranolol HCl 40 mg PO BID 14 Days #28 tablet 11/01/22 Ziprasidone [Geodon] 20 mg PO BID 14 Days #28 cap 11/01/22 busPIRone HCl [Buspar] 20 mg PO BID 14 Days #56 tab 11/01/22 chlordiazePOXIDE HCl [Librium] 10 mg PO DAILY 2 Days #2 cap 11/01/22 glipiZIDE [Glucotrol] 20 mg PO BID 14 Days #56 tab 11/01/22 metFORMIN HCL [Glucophage] 1,000 mg PO BID 14 Days #28 tab 11/01/22 Cyclobenzaprine [Flexeril] 5 mg PO TID 5 Days #15 tablet 11/02/22 Lidocaine 5% Patch [Lidoderm 5% 1 patch TOPICAL DAILY PRN 14 Days 11/02/22 Patch] #14 patch Allergies Allergy/AdvReac Type Severity Reaction Status Date / Time thimerosal Allergy Severe Rash/Hives/throat Verified 11/04/22 22:42 swelling neomycin Allergy Rash/Hives Verified 11/04/22 22:42 Review of Systems ROS Statement: Those systems with pertinent positive or pertinent negative responses have been documented in the HPI. ROS Other: All systems not noted in ROS Statement are negative. Past Medical History Past Medical History: Diabetes Mellitus, GERD/Reflux, Hyperlipidemia, Hypertension, Liver Disease, Renal Disease, Sleep Apnea/CPAP/BIPAP Additional Past Medical History / Comment(s): Neuropathy, back pain, no CPAP use, Cirrhosis, "kidneys don't always work right." , pancreatitis History of Any Multi-Drug Resistant Organisms: None Reported Past Surgical History: Heart Catheterization, Joint Replacement, Orthopedic Surgery Additional Past Surgical History / Comment(s): Bilateral cataracts removed, bilateral hip replacements, right heal surgery with screws/plates/pins placed, L2-L4 cage infusion, Past Anesthesia/Blood Transfusion Reactions: No Reported Reaction Past Psychological History: Anxiety, Bipolar, Depression, PTSD, Schizoaffective Disorder Smoking Status: Current every day smoker, Vaper Past Alcohol Use History: Abuse, Daily, Heavy Past Drug Use History: None Reported - Past Family History Father Family Medical History: Myocardial Infarction (OR) Additional Family Medical History / Comment(s): OR in mid 30's. Mother Family Medical History: Dementia family Additional Family Medical History / Comment(s): Anxiety. General Exam Limitations: no limitations General appearance: alert, in no apparent distress Head exam: Present: atraumatic, normocephalic, normal inspection Respiratory exam: Present: normal lung sounds bilaterally. Absent: respiratory distress, wheezes, rales, rhonchi, stridor Cardiovascular Exam: Present: regular rate, normal rhythm, normal heart sounds. Absent: systolic murmur, diastolic murmur, rubs, gallop, clicks GI/Abdominal exam: Present: soft, tenderness (Epigastric/upper abdominal), normal bowel sounds. Absent: distended, guarding, rebound, rigid Neurological exam: Present: alert, oriented X3, CN II-XII intact Psychiatric exam: Present: normal affect, normal mood Skin exam: Present: warm, dry, intact, normal color. Absent: rash Course Vital Signs 11/04/22 22:42 Temperature 98.2 F Pulse Rate 118 H Respiratory 16 Rate Blood Pressure 113/75 O2 Sat by Pulse 97 Oximetry Medical Decision Making - Medical Decision Making This is a 57-year-old male who presents to the emergency department for abdominal pain. Was pt. sent in by a medical professional or institution? @ -No Did you speak to anyone other than the patient for history? @ -No Did you review nursing and triage notes? @ -Yes, and I agree, it is accurate with regards to the patient's symptoms. Were old charts reviewed? @ -No Differential Diagnosis? @ -Differential Abdominal Pain Men: Appendicitis, cholecystitis, diverticulosis, ischemic bowel, pancreatitis, hepatitis, UTI, gastroenteritis, AAA, incarcerated hernia, bowel obstruction, constipation, inflammatory bowel, hepatitis, peptic ulcer disease, splenic infarction, perforated viscus, testicular torsion, this is not meant to be an all-inclusive list EKG interpreted by me (3pts min.)? @ -EKG interpreted by me demonstrating the following: Sinus tachycardia. Ventricular rate 106 bpm, WA interval 128 ms, QRS duration 98 ms, QTC 398 ms. X-rays interpreted by me (1pt min.)? @ -Not obtained CT interpreted by me (1pt min.)? @ -Not obtained U/S interpreted by me (1pt. min.)? @ -Not obtained What testing was considered but not performed? (CT, X-rays, U/S, labs)? Why? @ -None What meds were considered but not given? Why? @ -None Did you discuss the management of the patient with other professionals? @ -No Did you reconcile home meds? @ -No Was smoking cessation discussed for >3mins.? @ -No Was critical care preformed (if so, how long)? @ -No Were there social determinants of health that impacted care today? How? (Homelessness, low income, unemployed, alcoholism, drug addiction, transportation, low edu. Level, literacy, decrease access to med. care, intermediate, r ehab)? @ -Alcoholism, contributing to the patient's overall poor health and increasing his risk for further health complications. Was there de-escalation of care discussed even if they declined? (Discuss DNR or withdrawal of care, Hospice)? @ -No What co-morbidities impacted this encounter? (DM, HTN, Smoking, COPD, CAD, C ancer, CVA, Hep., AIDS, mental health diagnosis, sleep apnea, morbid obesity)? @ -DM, HLD, HTN, Alcohol abuse Was patient admitted / discharged? @ -Discharged. Lab work obtained revealing a somewhat low hemoglobin, which is consistent with the patient's prior values and known history of anemia. Lipase mildly elevated at 365 and not suggestive of pancreatitis. Lactic acid elevated at 3.3 and he was given 1 L bolus of IV fluids. His alcohol level was 183. Patient's pain was well controlled in the emergency department. He took a nap, woke up, and subsequently requested discharge home, stating that he felt much better. Patient discharged home in stable condition and otherwise advised to continue with supportive care. Undiagnosed new problem with uncertain prognosis? @ -None Drug Therapy requiring intensive monitoring for toxicity (Heparin, Nitro, Insulin, Cardizem)? @ -None Were any procedures done? @ -None Diagnosis/symptom? @ -Upper abdominal pain Acute, or Chronic, or Acute on Chronic? @ -Acute Uncomplicated (without systemic symptoms) or Complicated (systemic symptoms)? @ -Uncomplicated Side effects of treatment? @ -None Exacerbation, Progression, or Severe Exacerbation] @ -Not applicable Poses a threat to life or bodily function? @ -No Return precautions reviewed in depth, the patient is instructed to return to the emergency department with any new, worsening, or concerning symptoms. Patient verbalized understanding. This case was discussed in detail with the attending ED physician, Dr. Philippe. Presentation, findings, and treatment plan discussed in detail as well. - Lab Data Result diagrams: 11/05/22 01:25 11/05/22 00:15 Lab Results 11/05/22 11/05/22 11/05/22 Range/Units 00:15 00:15 00:40 WBC (3.8-10.6) k/uL RBC (4.30-5.90) m/uL Hgb (13.0-17.5) gm/dL Hct (39.0-53.0) % MCV (80.0-100.0) fL MCH (25.0-35.0) pg MCHC (31.0-37.0) g/dL RDW (11.5-15.5) % Plt Count (150-450) k/uL MPV Neutrophils % % Lymphocytes % % Monocytes % % Eosinophils % % Basophils % % Neutrophils # (1.3-7.7) k/uL Lymphocytes # (1.0-4.8) k/uL Monocytes # (0-1.0) k/uL Eosinophils # (0-0.7) k/uL Basophils # (0-0.2) k/uL Anisocytosis Sodium 141 (137-145) mmol/L Potassium 4.2 (3.5-5.1) mmol/L Chloride 106 (98-107) mmol/L Carbon Dioxide 20 L (22-30) mmol/L Anion Gap 15 mmol/L BUN 12 (9-20) mg/dL Creatinine 1.14 (0.66-1.25) mg/dL Est GFR (CKD-EPI)AfAm 82 (>60 ml/min/1.73 sqM) Est GFR (CKD-EPI)NonAf 71 (>60 ml/min/1.73 sqM) Glucose 164 H (74-99) mg/dL Lactic Ac Sepsis Rflx Plasma Lactic Acid Ender 3.3 H* (0.7-2.0) mmol/L Calcium 8.2 L (8.4-10.2) mg/dL Total Bilirubin 0.4 (0.2-1.3) mg/dL AST 32 (17-59) U/L ALT 24 (4-49) U/L Alkaline Phosphatase 66 (38-126) U/L Total Protein 6.0 L (6.3-8.2) g/dL Albumin 3.4 L (3.5-5.0) g/dL Amylase 59 (30-110) U/L Lipase 365 H (23-300) U/L Urine Opiates Screen Detected H (NotDetected) Ur Oxycodone Screen Not Detected (NotDetected) Urine Methadone Screen Not Detected (NotDetected) Ur Propoxyphene Screen Not Detected (NotDetected) Ur Barbiturates Screen Not Detected (NotDetected) U Tricyclic Antidepress Not Detected (NotDetected) Ur Phencyclidine Scrn Not Detected (NotDetected) Ur Amphetamines Screen Not Detected (NotDetected) U Methamphetamines Scrn Not Detected (NotDetected) U Benzodiazepines Scrn Detected H (NotDetected) Urine Cocaine Screen Not Detected (NotDetected) U Marijuana (THC) Screen Not Detected (NotDetected) Serum Alcohol 183 mg/dL 11/05/22 11/05/22 Range/Units 01:25 01:25 WBC 4.9 (3.8-10.6) k/uL RBC 3.11 L (4.30-5.90) m/uL Hgb 9.3 L D (13.0-17.5) gm/dL Hct 28.2 L (39.0-53.0) % MCV 90.8 (80.0-100.0) fL MCH 29.8 (25.0-35.0) pg MCHC 32.8 (31.0-37.0) g/dL RDW 16.1 H (11.5-15.5) % Plt Count 331 (150-450) k/uL MPV 7.2 Neutrophils % 34 % Lymphocytes % 50 % Monocytes % 7 % Eosinophils % 5 % Basophils % 1 % Neutrophils # 1.6 (1.3-7.7) k/uL Lymphocytes # 2.4 (1.0-4.8) k/uL Monocytes # 0.3 (0-1.0) k/uL Eosinophils # 0.2 (0-0.7) k/uL Basophils # 0.0 (0-0.2) k/uL Anisocytosis Slight Sodium (137-145) mmol/L Potassium (3.5-5.1) mmol/L Chloride (98-107) mmol/L Carbon Dioxide (22-30) mmol/L Anion Gap mmol/L BUN (9-20) mg/dL Creatinine (0.66-1.25) mg/dL Est GFR (CKD-EPI)AfAm (>60 ml/min/1.73 sqM) Est GFR (CKD-EPI)NonAf (>60 ml/min/1.73 sqM) Glucose (74-99) mg/dL Lactic Ac Sepsis Rflx Y Plasma Lactic Acid Ender (0.7-2.0) mmol/L Calcium (8.4-10.2) mg/dL Total Bilirubin (0.2-1.3) mg/dL AST (17-59) U/L ALT (4-49) U/L Alkaline Phosphatase (38-126) U/L Total Protein (6.3-8.2) g/dL Albumin (3.5-5.0) g/dL Amylase (30-110) U/L Lipase (23-300) U/L Urine Opiates Screen (NotDetected) Ur Oxycodone Screen (NotDetected) Urine Methadone Screen (NotDetected) Ur Propoxyphene Screen (NotDetected) Ur Barbiturates Screen (NotDetected) U Tricyclic Antidepress (NotDetected) Ur Phencyclidine Scrn (NotDetected) Ur Amphetamines Screen (NotDetected) U Methamphetamines Scrn (NotDetected) U Benzodiazepines Scrn (NotDetected) Urine Cocaine Screen (NotDetected) U Marijuana (THC) Screen (NotDetected) Serum Alcohol mg/dL Disposition Clinical Impression: Upper abdominal pain Disposition: HOME SELF-CARE Instructions (If sedation given, give patient instructions): Abdominal Pain (ED) Additional Instructions: Return to the emergency department with any new, worsening, or concerning symptoms. Follow up with your primary care provider in 1-2 days. Is patient prescribed a controlled substance at d/c from ED?: No Referrals: Nonstaff,Physician [Primary Care Provider] - 1-2 days
[2022-11-05 00:47] LABS: ALT 24 U/L (4-49); AST 32 U/L (17-59); African American GFR (CKD) 82 (>60 ml/min/1.73 sqM); Albumin 3.4 g/dL (3.5-5.0); Alkaline Phosphatase 66 U/L (38-126); Amylase 59 U/L (30-110); Anion Gap 15 mmol/L; Blood Urea Nitrogen 12 mg/dL (9-20); Calcium 8.2 mg/dL (8.4-10.2); Carbon Dioxide 20 mmol/L (22-30); Chloride 106 mmol/L (98-107); Glucose 164 mg/dL (74-99); Lipase 365 U/L (23-300); Non-African American GFR(CKD) 71 (>60 ml/min/1.73 sqM); Potassium 4.2 mmol/L (3.5-5.1); Sodium 141 mmol/L (137-145); Total Bilirubin 0.4 mg/dL (0.2-1.3)
[2022-11-05 00:53] LABS: Amphetamine Screen,Urine Not Detected (NotDetected); Barbiturate Screen,Urine Not Detected (NotDetected); Benzodiazepines Screen,Urine Detected (NotDetected); Cocaine Screen,Urine Not Detected (NotDetected); Methadone Screen, Urine Not Detected (NotDetected); Opiate Screen,Urine Detected (NotDetected); Oxycodone Screen, Urine Not Detected (NotDetected); Phencyclidine Screen,Urine Not Detected (NotDetected); Tricyclic Antidepressant,Urine Not Detected (NotDetected); Urn Cannabinoid Scrn Not Detected (NotDetected)
[2022-11-05 00:55] LABS: Alcohol 183 mg/dL
[2022-11-05] MEDS ORDERED: SODIUM CHLORIDE 0.9% 1,000 ML IV STA (01:27)
[2022-11-05 02:28] LABS: Anisocytosis Slight; Basophils % (A) 1 %; Eosinophils # (A) 0.2 k/uL (0-0.7); Eosinophils % (A) 5 %; HCT 28.2 % (39.0-53.0); Lymphocytes # (A) 2.4 k/uL (1.0-4.8); Lymphocytes % (A) 50 %; MCH 29.8 pg (25.0-35.0); MCHC 32.8 g/dL (31.0-37.0); MCV 90.8 fL (80.0-100.0); Mean Platelet Volume 7.2; Monocytes # (A) 0.3 k/uL (0-1.0); Monocytes % (A) 7 %; Neutrophils # (A) 1.6 k/uL (1.3-7.7); Neutrophils % (A) 34 %; Platelet Count 331 k/uL (150-450); RBC 3.11 m/uL (4.30-5.90); RDW 16.1 % (11.5-15.5); WBC 4.9 k/uL (3.8-10.6)
[2022-11-05 02:30] LABS: HGB 9.3 gm/dL (13.0-17.5)
[2022-11-05 03:41] VITALS: BP 117/78; PULSE 87; RESP 18
== END 2022-11-05 03:43 | disposition home or self-care (01) ==
LOC: EC 22:23
DX: R10.13 Epigastric pain (principal); E11.9 Type 2 diabetes mellitus without complications; I10 Essential (primary) hypertension; G47.30 Sleep apnea, unspecified; F41.9 Anxiety disorder, unspecified; F31.9 Bipolar disorder, unspecified; F17.290 Nicotine dependence, other tobacco product, uncomplicated; Z79.899 Other long term (current) drug therapy
CPT/HCPCS: 99285; 96374; 96375 ×2; 96361 ×2; 36415; 93005; 80053; 82150; 83605; 83690; 85025; 80306; G0480; J2270; J1885; 80320

== ENCOUNTER 2022-11-05 09:24 | Inpatient (IN) | payer MEDICARE, OTHER ==
[2022-11-05 09:55] LABS: Glucose,Whole Blood 157 mg/dL (70-110)
[2022-11-05] MEDS ORDERED: SODIUM CHLORIDE 0.9% 1,000 ML IV ONE (09:59)
[2022-11-05] MEDS ORDERED: NALOXONE 0.4 MG/ML 1 ML VIAL IM STA (09:59)
--- NOTE | 2022-11-05 10:07 | ED ---
General Adult HPI - General Chief complaint: Back Pain/Injury Stated complaint: back pain Time Seen by Provider: 11/05/22 09:30 Source: patient, RN notes reviewed, old records reviewed Mode of arrival: ambulatory Limitations: no limitations - History of Present Illness Initial comments: This a 57-year-old male who comes into the emergency department initially complaining of back pain and then became unresponsive in triage so he was brought to the trauma bay. Patient did state he was drinking and he is diabetic. No further history is available this time - Related Data Home Medications Medication Instructions Recorded Confirmed Multivitamins, Thera [Multivitamin 1 tab PO DAILY 10/07/21 11/05/22 (formulary)] Melatonin 5 mg PO HS PRN 09/11/22 11/05/22 Pregabalin [Lyrica] 100 mg PO TID 09/11/22 11/05/22 Sennosides/Docusate Sodium [Senna 1 tab PO DAILY PRN 09/11/22 11/05/22 Plus 8.6-50 mg Softgel] Previous Rx's Medication Instructions Recorded Calcium Carbonate [Tums] 500 mg PO QID PRN 30 Days 08/17/21 Ferrous Sulfate [Iron (65 MG 325 mg PO DAILY 30 Days tab 08/17/21 Elemental)] Vitamin B Complex 1 cap PO DAILY 30 Days cap 08/17/21 Folic Acid 1 mg PO DAILY #30 tab 10/16/22 Thiamine [Vitamin B-1] 100 mg PO DAILY #30 tab 10/16/22 Aspirin EC [Ecotrin Low Dose] 81 mg PO DAILY 14 Days #14 tab 11/01/22 Mag Hydrox/Al Hydrox/Simeth 30 ml PO Q4HR PRN ml 11/01/22 [Maalox] Mirtazapine [Remeron] 15 mg PO HS 14 Days #14 tab 11/01/22 Nicotine 14Mg/24Hr Patch [Habitrol] 1 patch TRANSDERM DAILY 14 Days 11/01/22 #14 patch Pantoprazole [Protonix] 40 mg PO HS 14 Days #14 tab 11/01/22 Pravastatin Sodium [Pravachol] 40 mg PO HS 14 Days #14 tab 11/01/22 Propranolol HCl 40 mg PO BID 14 Days #28 tablet 11/01/22 Ziprasidone [Geodon] 20 mg PO BID 14 Days #28 cap 06/07/23 busPIRone HCl [Buspar] 20 mg PO BID 14 Days #56 tab 11/01/22 glipiZIDE [Glucotrol] 20 mg PO BID 14 Days #56 tab 11/01/22 metFORMIN HCL [Glucophage] 1,000 mg PO BID 14 Days #28 tab 11/01/22 Cyclobenzaprine [Flexeril] 5 mg PO TID 5 Days #15 tablet 11/02/22 Lidocaine 5% Patch [Lidoderm 5% 1 patch TOPICAL DAILY PRN 14 Days 11/02/22 Patch] #14 patch Allergies Allergy/AdvReac Type Severity Reaction Status Date / Time thimerosal Allergy Severe Rash/Hives/throat Verified 11/05/22 09:28 swelling neomycin Allergy Rash/Hives Verified 11/05/22 09:28 Review of Systems ROS Statement: Those systems with pertinent positive or pertinent negative responses have been documented in the HPI. ROS Other: All systems not noted in ROS Statement are negative. Past Medical History Past Medical History: Diabetes Mellitus, GERD/Reflux, Hyperlipidemia, Hypertension, Liver Disease, Renal Disease, Sleep Apnea/CPAP/BIPAP Additional Past Medical History / Comment(s): Neuropathy, back pain, no CPAP use, Cirrhosis, "kidneys don't always work right." , pancreatitis History of Any Multi-Drug Resistant Organisms: None Reported Past Surgical History: Heart Catheterization, Joint Replacement, Orthopedic Surgery Additional Past Surgical History / Comment(s): Bilateral cataracts removed, bilateral hip replacements, right heal surgery with screws/plates/pins placed, L2-L4 cage infusion, Past Anesthesia/Blood Transfusion Reactions: No Reported Reaction Past Psychological History: Anxiety, Bipolar, Depression, PTSD, Schizoaffective Disorder Smoking Status: Current every day smoker, Vaper Past Alcohol Use History: Abuse, Daily, Heavy Past Drug Use History: None Reported - Past Family History Father Family Medical History: Myocardial Infarction (PR) Additional Family Medical History / Comment(s): PR in mid 30's. Mother Family Medical History: Dementia family Additional Family Medical History / Comment(s): Anxiety. General Exam - General Exam Comments Initial Comments: GENERAL: Patient is well-developed and well-nourished. Patient is nontoxic and well- hydrated and is in no acute distress. ENT: Neck is soft and supple. No significant lymphadenopathy is noted. Oropharynx is clear. Moist mucous membranes. Neck has full range of motion without eliciting any pain. EYES: The sclera were anicteric and conjunctiva were pink and moist. Extraocular movements were intact and pupils were equal round and reactive to light. Eyelids were unremarkable. PULMONARY: Unlabored respirations. Good breath sounds bilaterally. No audible rales rhonchi or wheezing was noted. CARDIOVASCULAR: There is a regular rate and rhythm without any murmurs gallops or rubs. ABDOMEN: Soft and nontender with normal bowel sounds. SKIN: Skin is clear with no lesions or rashes and otherwise unremarkable. NEUROLOGIC: Patient is alert and oriented times. Cranial nerves II through XII are grossly intact. Motor and sensory are also intact. Normal speech, volume and content. Symmetrical smile. MUSCULOSKELETAL: Normal extremities with adequate strength and full range of motion. LYMPHATICS: No significant lymphadenopathy is noted PSYCHIATRIC: Unable to assess at this time Limitations: no limitations Course Vital Signs 11/05/22 11/05/22 11/05/22 09:26 10:10 10:58 Temperature 97.9 F Pulse Rate 110 H 110 H Respiratory 18 18 18 Rate Blood Pressure 162/113 143/107 O2 Sat by Pulse 100 98 Oximetry Medical Decision Making - Medical Decision Making EKG was interpreted by myself shows sinus tachycardia at 116 bpm MI interval 236 QRS is under 1 Q-T intervals 3:30 QTC is 399. Patient's EKG shows no ST segment elevation or depression. Was pt. sent in by a medical professional or institution ([facility]ACQU[facility] Byran, ANIMAL RESCUER, urgent care, hospital, or fdc...) When possible be specific @ -[No] Did you speak to anyone other than the patient for history (EMS, parent, family, police, friend...)? What history was obtained from this source @ -[No] Did you review nursing and triage notes (agree or disagree)? Why? @ -[I reviewed and agree with nursing and triage notes] Were old charts reviewed (outside hosp., previous admission, EMS record, old EKG, old radiological studies, urgent care reports/EKG's, fdc records)? Report findings @ -I reviewed prior chart and lab work from earlier today and yesterday when the patient was in the hospital Differential Diagnosis (chest pain, altered mental status, abdominal pain women, abdominal pain men, vaginal bleeding, weakness, fever, dyspnea, syncope, headache, dizziness, GI bleed, back pain, seizure, CVA, palpatations, mental health, musculoskeletal)? @ -Differential Altered Mental Status: Hypoglycemia, DKA, hypercapnia, ETOH, overdose, CO poisoning, trauma, myxedema coma, HTN encephalopathy, infection, encephalitis, psychosis, intercranial hemorrhage, hepatic encephalopathy, meningitis, CVA, this is not meant to be an all-inclusive list EKG interpreted by me (3pts min.). @ -[As above] X-rays interpreted by me (1pt min.). @ -Chest x-ray showed no acute abnormality CT interpreted by me (1pt min.). @ -CT scan showed no acute abnormality U/S interpreted by me (1pt. min.). @ -[None done] What testing was considered but not performed or refused? (CT, X-rays, U/S, labs)? Why? @ -[None] What meds were considered but not given or refused? Why? @ -[None] Did you discuss the management of the patient with other professionals (professionals i.e. , PA, ANIMAL RESCUER, lab, RT, psych nurse, social media assistant, granite fabricator, teacher, surface to air weapons officer, case specialist)? Give summary @ -I found physicians agreed to admit the patient admitted the patient I wrote admitting orders Was smoking cessation discussed for >3mins.? @ -[No] Was critical care preformed (if so, how long)? @ -[No] Were there social determinants of health that impacted care today? How? (Homelessness, low income, unemployed, alcoholism, drug addiction, transporta tion, low edu. Level, literacy, decrease access to med. care, senior living, rehab)? @ -[No] Was there de-escalation of care discussed even if they declined (Discuss DNR or withdrawal of care, Hospice)? DNR status @ -[No] What co-morbidities impacted this encounter? (DM, HTN, Smoking, COPD, CAD, Cancer, CVA, ARF, Chemo, Hep., AIDS, mental health diagnosis, sleep apnea, morbid obesity)? @ -Alcoholism Was patient admitted / discharged? Hospital course, mention meds given and route, prescriptions, significant lab abnormalities, going to OR and other pertinent info. @ -Patient was initially unresponsive except with sternal rub he then she slowly came around and admitted he was drinking alcohol again and he had been here last night and discharged recently. Patient had CAT scan of the head showed no acute normalities patient had laboratory showed no acute normalities however he was highly intoxicated and I spoke was found physicians name agreed to admit the patient admitted the patient Undiagnosed new problem with uncertain prognosis? @ -[No] Drug Therapy requiring intensive monitoring for toxicity (Heparin, Nitro, Insulin, Cardizem)? @ -[No] Were any procedures done? @ -[No] Diagnosis/symptom? @ -Intoxication Acute, or Chronic, or Acute on Chronic? @ -Acute Uncomplicated (without systemic symptoms) or Complicated (systemic symptoms)? @ -Complicated Side effects of treatment? @ -[No] Exacerbation, Progression, or Severe Exacerbation? @ -[No] Poses a threat to life or bodily function? How? (Chest pain, [place], PR, pneumonia, PE, COPD, DKA, ARF, appy, cholecystitis, CVA, Diverticulitis, Homicidal, Suicidal, threat to staff... and all critical care pts) @ -Yes could lead to delirium tremens - Lab Data Result diagrams: 11/05/22 10:05 11/05/22 10:05 Lab Results 11/05/22 11/05/22 11/05/22 Range/Units 09:53 10:05 10:05 WBC 4.8 (3.8-10.6) k/uL RBC 3.40 L (4.30-5.90) m/uL Hgb 10.3 L (13.0-17.5) gm/dL Hct 31.3 L (39.0-53.0) % MCV 92.1 (80.0-100.0) fL MCH 30.5 (25.0-35.0) pg MCHC 33.1 (31.0-37.0) g/dL RDW 16.2 H (11.5-15.5) % Plt Count 359 (150-450) k/uL MPV 7.0 Neutrophils % (Manual) 38 % Lymphocytes % (Manual) 47 % Monocytes % (Manual) 8 % Eosinophils % (Manual) 6 % Basophils % (Manual) 1 % Neutrophils # (Manual) 1.82 (1.3-7.7) k/uL Lymphocytes # (Manual) 2.26 (1.0-4.8) k/uL Monocytes # (Manual) 0.38 (0-1.0) k/uL Eosinophils # (Manual) 0.29 (0-0.7) k/uL Basophils # (Manual) 0.05 (0-0.2) k/uL Nucleated RBCs 0 (0-0) /100 WBC Manual Slide Review Performed RBC Morphology Normal Anisocytosis Slight PT 10.3 (9.0-12.0) sec INR 1.0 (<1.2) APTT 21.7 L (22.0-30.0) sec Sodium (137-145) mmol/L Potassium (3.5-5.1) mmol/L Chloride (98-107) mmol/L Carbon Dioxide (22-30) mmol/L Anion Gap mmol/L BUN (9-20) mg/dL Creatinine (0.66-1.25) mg/dL Est GFR (CKD-EPI)AfAm (>60 ml/min/1.73 sqM) Est GFR (CKD-EPI)NonAf (>60 ml/min/1.73 sqM) Glucose (74-99) mg/dL POC Glucose (mg/dL) 157 H (70-110) mg/dL POC Glu [employer] Sophia Silva Calcium (8.4-10.2) mg/dL Magnesium (1.6-2.3) mg/dL Total Bilirubin (0.2-1.3) mg/dL AST (17-59) U/L ALT (4-49) U/L Alkaline Phosphatase (38-126) U/L Ammonia (<30) umol/L Troponin I (0.000-0.034) ng/mL Total Protein (6.3-8.2) g/dL Albumin (3.5-5.0) g/dL Lipase (23-300) U/L Urine Opiates Screen (NotDetected) Ur Oxycodone Screen (NotDetected) Urine Methadone Screen (NotDetected) Ur Propoxyphene Screen (NotDetected) Ur Barbiturates Screen (NotDetected) U Tricyclic Antidepress (NotDetected) Ur Phencyclidine Scrn (NotDetected) Ur Amphetamines Screen (NotDetected) U Methamphetamines Scrn (NotDetected) U Benzodiazepines Scrn (NotDetected) Urine Cocaine Screen (NotDetected) U Marijuana (THC) Screen (NotDetected) Serum Alcohol mg/dL 11/05/22 11/05/22 11/05/22 Range/Units 10:05 10:05 10:05 WBC (3.8-10.6) k/uL RBC (4.30-5.90) m/uL Hgb (13.0-17.5) gm/dL Hct (39.0-53.0) % MCV (80.0-100.0) fL MCH (25.0-35.0) pg MCHC (31.0-37.0) g/dL RDW (11.5-15.5) % Plt Count (150-450) k/uL MPV Neutrophils % (Manual) % Lymphocytes % (Manual) % Monocytes % (Manual) % Eosinophils % (Manual) % Basophils % (Manual) % Neutrophils # (Manual) (1.3-7.7) k/uL Lymphocytes # (Manual) (1.0-4.8) k/uL Monocytes # (Manual) (0-1.0) k/uL Eosinophils # (Manual) (0-0.7) k/uL Basophils # (Manual) (0-0.2) k/uL Nucleated RBCs (0-0) /100 WBC Manual Slide Review RBC Morphology Anisocytosis PT (9.0-12.0) sec INR (<1.2) APTT (22.0-30.0) sec Sodium 144 (137-145) mmol/L Potassium 3.8 (3.5-5.1) mmol/L Chloride 110 H (98-107) mmol/L Carbon Dioxide 21 L (22-30) mmol/L Anion Gap 13 mmol/L BUN 10 (9-20) mg/dL Creatinine 0.83 (0.66-1.25) mg/dL Est GFR (CKD-EPI)AfAm >90 (>60 ml/min/1.73 sqM) Est GFR (CKD-EPI)NonAf >90 (>60 ml/min/1.73 sqM) Glucose 160 H (74-99) mg/dL POC Glucose (mg/dL) (70-110) mg/dL POC Glu [employer] Calcium 8.1 L (8.4-10.2) mg/dL Magnesium 1.4 L (1.6-2.3) mg/dL Total Bilirubin 0.1 L (0.2-1.3) mg/dL AST 19 (17-59) U/L ALT 22 (4-49) U/L Alkaline Phosphatase 91 (38-126) U/L Ammonia <9 (<30) umol/L Troponin I (0.000-0.034) ng/mL Total Protein 5.9 L (6.3-8.2) g/dL Albumin 3.4 L (3.5-5.0) g/dL Lipase 298 (23-300) U/L Urine Opiates Screen Detected H (NotDetected) Ur Oxycodone Screen Not Detected (NotDetected) Urine Methadone Screen Not Detected (NotDetected) Ur Propoxyphene Screen Not Detected (NotDetected) Ur Barbiturates Screen Not Detected (NotDetected) U Tricyclic Antidepress Detected H (NotDetected) Ur Phencyclidine Scrn Not Detected (NotDetected) Ur Amphetamines Screen Not Detected (NotDetected) U Methamphetamines Scrn Not Detected (NotDetected) U Benzodiazepines Scrn Detected H (NotDetected) Urine Cocaine Screen Not Detected (NotDetected) U Marijuana (THC) Screen Not Detected (NotDetected) Serum Alcohol 275 H* mg/dL 11/05/22 Range/Units 10:05 WBC (3.8-10.6) k/uL RBC (4.30-5.90) m/uL Hgb (13.0-17.5) gm/dL Hct (39.0-53.0) % MCV (80.0-100.0) fL MCH (25.0-35.0) pg MCHC (31.0-37.0) g/dL RDW (11.5-15.5) % Plt Count (150-450) k/uL MPV Neutrophils % (Manual) % Lymphocytes % (Manual) % Monocytes % (Manual) % Eosinophils % (Manual) % Basophils % (Manual) % Neutrophils # (Manual) (1.3-7.7) k/uL Lymphocytes # (Manual) (1.0-4.8) k/uL Monocytes # (Manual) (0-1.0) k/uL Eosinophils # (Manual) (0-0.7) k/uL Basophils # (Manual) (0-0.2) k/uL Nucleated RBCs (0-0) /100 WBC Manual Slide Review RBC Morphology Anisocytosis PT (9.0-12.0) sec INR (<1.2) APTT (22.0-30.0) sec Sodium (137-145) mmol/L Potassium (3.5-5.1) mmol/L Chloride (98-107) mmol/L Carbon Dioxide (22-30) mmol/L Anion Gap mmol/L BUN (9-20) mg/dL Creatinine (0.66-1.25) mg/dL Est GFR (CKD-EPI)AfAm (>60 ml/min/1.73 sqM) Est GFR (CKD-EPI)NonAf (>60 ml/min/1.73 sqM) Glucose (74-99) mg/dL POC Glucose (mg/dL) (70-110) mg/dL POC Glu [employer] Calcium (8.4-10.2) mg/dL Magnesium (1.6-2.3) mg/dL Total Bilirubin (0.2-1.3) mg/dL AST (17-59) U/L ALT (4-49) U/L Alkaline Phosphatase (38-126) U/L Ammonia (<30) umol/L Troponin I <0.012 (0.000-0.034) ng/mL Total Protein (6.3-8.2) g/dL Albumin (3.5-5.0) g/dL Lipase (23-300) U/L Urine Opiates Screen (NotDetected) Ur Oxycodone Screen (NotDetected) Urine Methadone Screen (NotDetected) Ur Propoxyphene Screen (NotDetected) Ur Barbiturates Screen (NotDetected) U Tricyclic Antidepress (NotDetected) Ur Phencyclidine Scrn (NotDetected) Ur Amphetamines Screen (NotDetected) U Methamphetamines Scrn (NotDetected) U Benzodiazepines Scrn (NotDetected) Urine Cocaine Screen (NotDetected) U Marijuana (THC) Screen (NotDetected) Serum Alcohol mg/dL Disposition Clinical Impression: Alcohol intoxication Disposition: ADMITTED IP TO THIS [facility] Referrals: Nonstaff,Physician [Primary Care Provider] - 1-2 days Time of Disposition: 13:26
[2022-11-05 10:30] LABS: ALT 22 U/L (4-49); AST 19 U/L (17-59); African American GFR (CKD) >90 (>60 ml/min/1.73 sqM); Albumin 3.4 g/dL (3.5-5.0); Alkaline Phosphatase 91 U/L (38-126); Anion Gap 13 mmol/L; Blood Urea Nitrogen 10 mg/dL (9-20); Calcium 8.1 mg/dL (8.4-10.2); Carbon Dioxide 21 mmol/L (22-30); Chloride 110 mmol/L (98-107); Glucose 160 mg/dL (74-99); Lipase 298 U/L (23-300); Magnesium 1.4 mg/dL (1.6-2.3); Non-African American GFR(CKD) >90 (>60 ml/min/1.73 sqM); Potassium 3.8 mmol/L (3.5-5.1); Sodium 144 mmol/L (137-145); Total Bilirubin 0.1 mg/dL (0.2-1.3); Total Protein 5.9 g/dL (6.3-8.2)
[2022-11-05 10:33] LABS: Anisocytosis Slight; HCT 31.3 % (39.0-53.0); HGB 10.3 gm/dL (13.0-17.5); MCH 30.5 pg (25.0-35.0); MCHC 33.1 g/dL (31.0-37.0); MCV 92.1 fL (80.0-100.0); Platelet Count 359 k/uL (150-450); RDW 16.2 % (11.5-15.5); WBC 4.8 k/uL (3.8-10.6)
[2022-11-05 10:36] LABS: Prothrombin Time 10.3 sec (9.0-12.0)
--- NOTE | 2022-11-05 10:44 | CT ---
EXAMINATION TYPE: CT brain wo con DATE OF EXAM: 11/05/2022 COMPARISON: 01/10/2022 HISTORY: 57-year-old male confusion, Altered mental status TECHNIQUE: Examination was done in axial plane without intravenous contrast. Coronal and sagittal r econstructions performed. CT DLP: 1086.4 mGycm Automated exposure control for dose reduction was used. FINDINGS: There is no evidence of acute intracranial hemorrhage, acute ischemic changes, mass, mass-effect, or extra-axial fluid collection. There is no effacement of cerebral sulci or basal subarachnoid cister ns. There is no hydrocephalus. There is no midline shift. Saha-white matter distinction is preserv ed. Mild generalized supratentorial volume loss. Partially empty sella. Paranasal sinuses and mastoid air cells well pneumatized. Orbits and globes are intact. IMPRESSION: No acute intracranial abnormality seen.
--- NOTE | 2022-11-05 10:45 | XR ---
EXAMINATION TYPE: XR chest 2V DATE OF EXAM: 11/05/2022 COMPARISON: 10/11/2022 HISTORY: 57-year-old male confusion, altered mental status, weakness TECHNIQUE: AP and lateral views FINDINGS: Heart normal size. Mild elongation/ectasia of the thoracic aorta. No consolidation or pleural effusio n. Pulmonary vasculature within normal limits. IMPRESSION: No acute cardiopulmonary process.
[2022-11-05 10:51] LABS: Partial Thromboplastin Time 21.7 sec (22.0-30.0)
[2022-11-05 10:56] LABS: Alcohol 275 mg/dL
[2022-11-05 11:45] LABS: Basophils # (M) 0.05 k/uL (0-0.2); Eosinophils # (M) 0.29 k/uL (0-0.7); Lymphocytes # (M) 2.26 k/uL (1.0-4.8); Monocytes # (M) 0.38 k/uL (0-1.0); Neutrophils # (M) 1.82 k/uL (1.3-7.7); Neutrophils % (M) 38 %; Nucleated Red Blood Cells 0 /100 WBC (0-0); Total Cells Counted 100
[2022-11-05 11:46] LABS: RBC Morphology Normal
[2022-11-05 11:52] LABS: Amphetamine Screen,Urine Not Detected (NotDetected); Benzodiazepines Screen,Urine Detected (NotDetected); Cocaine Screen,Urine Not Detected (NotDetected); Opiate Screen,Urine Detected (NotDetected); Phencyclidine Screen,Urine Not Detected (NotDetected); Tricyclic Antidepressant,Urine Detected (NotDetected); Urn Cannabinoid Scrn Not Detected (NotDetected)
[2022-11-05 11:53] LABS: Barbiturate Screen,Urine Not Detected (NotDetected); Methadone Screen, Urine Not Detected (NotDetected); Oxycodone Screen, Urine Not Detected (NotDetected)
[2022-11-05] MEDS ORDERED: SODIUM CHLORIDE 0.9% 1,000 ML with MVI, ADULT NO.4 WITH VIT K 10 ML, THIAMINE 100 MG, F... IV ONE ×4 (13:26)
[2022-11-05] MEDS ORDERED: THIAMINE 100 MG/ML 2 ML VIAL IM STA (13:27)
[2022-11-05] MEDS: MAGNESIUM SULFATE-D5W PMX 1 GM in DEXTROSE/WATER 1 100ML.BAG IVPB SCH ×5 (14:21→20:12)
[2022-11-05] MEDS: LORazepam 2 MG/ML INJ IV PRN ×2 (14:31→19:54)
[2022-11-05] MEDS ORDERED: MELATONIN 5 MG TABLET PO PRN (15:55)
[2022-11-05] MEDS ORDERED: SENNOSIDES-DOCUSATE SODIUM 1 EACH TAB PO PRN (15:55)
[2022-11-05] MEDS ORDERED: CALCIUM CARBONATE 500 MG CHEWABLE PO PRN (15:55)
[2022-11-05] MEDS ORDERED: DEXTROSE 50% SYRINGE 50 ML IVP PRN ×2 (16:01)
--- NOTE | 2022-11-05 16:03 | P.HPIM ---
History of Present Illness H&P Date: 11/05/22 Patient is a 57-year-old male with history of alcohol dependence, hypertension, dyslipidemia, type 2 diabetes, chronic back pain, COPD, tobacco use, sleep apnea not on CPAP presenting for alcohol intoxication. He claims that he is currently homeless, was recently discharged from the hospital on 11/01. At that time, he was admitted to psychiatry for alcohol use disorder as well as depressive disorder. He claims that he started drinking alcohol as soon as he got out of the hospital. Today he drank hard liquor, and then presented to the emergency on his own for detox and possibly getting into alcohol rehab. His plan is to eventually get housing after rehab. Currently he denies any chest pain, palpitation, shortness breath, nausea, vomiting, diarrhea, constipation, or urin mary complaints. He claims that he has some mild epigastric pain. This is similar to his prior episodes of pancreatitis. He denies any fevers or chills. He also vapes daily and reportedly no illicit drug use. In the ED, he was tachycardic to 110, blood pressure 162/113, saturating at 90% on room air, respiratory rate 18, temperature 97.9. WBC 4.8, hemoglobin 10.3, platelet 249, potassium 3.8, bicarb 21, anion gap 13, creatinine 0.83, glucose 160, magnesium 1.4, negative troponin, lipase 298, serum alcohol 275. Urine toxicology positive for opiates, TCA, and benzodiazepine. Chest x-ray showed no acute process. Brain CT showed no acute process. Patient admitted for alcohol intoxication. Pertinent positives and negatives as discussed in HPI, a complete review of systems was performed and all other systems are negative. Patient seen and examined at bedside. Vital signs reviewed General: nontoxic, no distress, appears at stated age, appears intoxicated Derm: warm, dry Head: atraumatic, normocephalic, symmetric Eyes: EOMI, no lid lag, anicteric sclera, pupils equal round reactive to light ENT: Nose and ears atraumatic Neck: No thyromegaly, supple Mouth: no lip lesion, mucus membranes moist Cardiovascular: S1S2 reg, no murmur, no edema Lungs: clear to auscultation bilateral, no rhonchi, no rales, no wheeze, no accessory muscle use Abdominal: soft, mild tenderness to palpation in epigastric region, no guarding, no appreciable organomegaly Ext: no gross muscle atrophy, muscle strength muscle strength 5 out of 5 in all 4 extremities, no contractures Neuro: CN II-XII grossly intact Psych: Alert, oriented, appropriate affect Assessment/Plan: Active: Acute alcohol intoxication Alcohol dependence, impending alcohol withdrawal High anion gap metabolic acidosis Sinus tachycardia Hypomagnesemia Polysubstance abuse Abdominal pain Diabetes, type II -Continue IV fluids normal saline at 1 50 mL an hour -Monitor for withdrawal's, Ativan IV as needed per CIWA score -Thiamine 100 mg daily -Metabolic acidosis likely in the setting of alcohol use -EKG independently interpreted, shows satisfactory. -4 g IV magnesium sulfate ordered -May have a component of chronic pancreatitis causing abdominal pain versus gastritis in the setting of alcohol use, on Protonix -Sliding scale insulin, holding home antidiabetic medications Chronic: Chronic normocytic anemia Depression Anxiety disorder Dyslipidemia Chronic back pain The patient is admitted with an anticipated greater than 2 midnight stay as inpatient status for evaluation of alcohol intoxication and alcoholic dependence. Surrogate decision-maker: Sibling CODE STATUS: Full Code DVT prophylaxis: Lovenox Anticipated discharge date: Pending clinical course Anticipated discharge place: Pending clinical course A total of 65 minutes was spent on the care of this complex patient more than 50% of the time was spent in counseling and care coordination. Past Medical History Past Medical History: Diabetes Mellitus, GERD/Reflux, Hyperlipidemia, Hypertension, Liver Disease, Renal Disease, Sleep Apnea/CPAP/BIPAP Additional Past Medical History / Comment(s): Neuropathy, back pain, no CPAP use, Cirrhosis, "kidneys don't always work right." , pancreatitis History of Any Multi-Drug Resistant Organisms: None Reported Past Surgical History: Heart Catheterization, Joint Replacement, Orthopedic Surgery Additional Past Surgical History / Comment(s): Bilateral cataracts removed, bilateral hip replacements, right heal surgery with screws/plates/pins placed, L2-L4 cage infusion, Past Anesthesia/Blood Transfusion Reactions: No Reported Reaction Past Psychological History: Anxiety, Bipolar, Depression, PTSD, Schizoaffective Disorder Smoking Status: Current every day smoker, Vaper Past Alcohol Use History: Abuse, Daily, Heavy Past Drug Use History: None Reported - Past Family History Father Family Medical History: Myocardial Infarction (AL) Additional Family Medical History / Comment(s): AL in mid 30's. Mother Family Medical History: Dementia family Additional Family Medical History / Comment(s): Anxiety. Medications and Allergies Home Medications Medication Instructions Recorded Confirmed Type Calcium Carbonate [Tums] 500 mg PO QID PRN 30 Days 08/17/21 11/05/22 Rx Ferrous Sulfate [Iron (65 MG 325 mg PO DAILY 30 Days tab 08/17/21 11/05/22 Rx Elemental)] Vitamin B Complex 1 cap PO DAILY 30 Days cap 08/17/21 11/05/22 Rx Multivitamins, Thera [Multivitamin 1 tab PO DAILY 10/07/21 11/05/22 History (formulary)] Melatonin 5 mg PO HS PRN 09/11/22 11/05/22 History Pregabalin [Lyrica] 100 mg PO TID 09/11/22 11/05/22 History Sennosides/Docusate Sodium [Senna 1 tab PO DAILY PRN 09/11/22 11/05/22 History Plus 8.6-50 mg Softgel] Folic Acid 1 mg PO DAILY #30 tab 10/16/22 11/05/22 Rx Thiamine [Vitamin B-1] 100 mg PO DAILY #30 tab 10/16/22 11/05/22 Rx Aspirin EC [Ecotrin Low Dose] 81 mg PO DAILY 14 Days #14 tab 11/01/22 11/05/22 Rx Mag Hydrox/Al Hydrox/Simeth 30 ml PO Q4HR PRN ml 11/01/22 11/05/22 Rx [Maalox] Mirtazapine [Remeron] 15 mg PO HS 14 Days #14 tab 11/01/22 11/05/22 Rx Nicotine 14Mg/24Hr Patch [Habitrol] 1 patch TRANSDERM DAILY 14 Days 11/01/22 11/05/22 Rx #14 patch Pantoprazole [Protonix] 40 mg PO HS 14 Days #14 tab 11/01/22 11/05/22 Rx Pravastatin Sodium [Pravachol] 40 mg PO HS 14 Days #14 tab 11/01/22 11/05/22 Rx Propranolol HCl 40 mg PO BID 14 Days #28 tablet 11/01/22 11/05/22 Rx Ziprasidone [Geodon] 20 mg PO BID 14 Days #28 cap 11/01/22 11/05/22 Rx busPIRone HCl [Buspar] 20 mg PO BID 14 Days #56 tab 11/01/22 11/05/22 Rx glipiZIDE [Glucotrol] 20 mg PO BID 14 Days #56 tab 11/01/22 11/05/22 Rx metFORMIN HCL [Glucophage] 1,000 mg PO BID 14 Days #28 tab 11/01/22 11/05/22 Rx Cyclobenzaprine [Flexeril] 5 mg PO TID 5 Days #15 tablet 11/02/22 11/05/22 Rx Lidocaine 5% Patch [Lidoderm 5% 1 patch TOPICAL DAILY PRN 14 Days 11/02/22 11/05/22 Rx Patch] #14 patch Allergies Allergy/AdvReac Type Severity Reaction Status Date / Time thimerosal Allergy Severe Rash/Hives/throat Verified 11/05/22 09:28 swelling neomycin Allergy Rash/Hives Verified 11/05/22 09:28 Physical Exam Vitals: Vital Signs Temp Pulse Resp BP Pulse Ox 11/05/22 14:19 103 H 18 133/88 96 11/05/22 13:27 18 11/05/22 10:58 110 H 18 143/107 98 11/05/22 10:10 18 11/05/22 09:26 97.9 F 110 H 18 162/113 100 Intake and Output 11/05/22 11/05/22 11/05/22 06:59 14:59 22:59 Other: Weight 74.843 kg Results CBC & Chem 7: 11/05/22 10:05 11/05/22 10:05 Labs: Abnormal Lab Results - Last 24 Hours (Table) 11/05/22 11/05/22 11/05/22 Range/Units 09:53 10:05 10:05 RBC 3.40 L (4.30-5.90) m/uL Hgb 10.3 L (13.0-17.5) gm/dL Hct 31.3 L (39.0-53.0) % RDW 16.2 H (11.5-15.5) % APTT 21.7 L (22.0-30.0) sec Chloride (98-107) mmol/L Carbon Dioxide (22-30) mmol/L Glucose (74-99) mg/dL POC Glucose (mg/dL) 157 H (70-110) mg/dL Calcium (8.4-10.2) mg/dL Magnesium (1.6-2.3) mg/dL Total Bilirubin (0.2-1.3) mg/dL Total Protein (6.3-8.2) g/dL Albumin (3.5-5.0) g/dL Urine Opiates Screen (NotDetected) U Tricyclic Antidepress (NotDetected) U Benzodiazepines Scrn (NotDetected) Serum Alcohol mg/dL 11/05/22 11/05/22 Range/Units 10:05 10:05 RBC (4.30-5.90) m/uL Hgb (13.0-17.5) gm/dL Hct (39.0-53.0) % RDW (11.5-15.5) % APTT (22.0-30.0) sec Chloride 110 H (98-107) mmol/L Carbon Dioxide 21 L (22-30) mmol/L Glucose 160 H (74-99) mg/dL POC Glucose (mg/dL) (70-110) mg/dL Calcium 8.1 L (8.4-10.2) mg/dL Magnesium 1.4 L (1.6-2.3) mg/dL Total Bilirubin 0.1 L (0.2-1.3) mg/dL Total Protein 5.9 L (6.3-8.2) g/dL Albumin 3.4 L (3.5-5.0) g/dL Urine Opiates Screen Detected H (NotDetected) U Tricyclic Antidepress Detected H (NotDetected) U Benzodiazepines Scrn Detected H (NotDetected) Serum Alcohol 275 H* mg/dL
[2022-11-05] MEDS ORDERED: HYDROcodone/APAP 5-325MG 1 EACH TAB PO PRN (16:39)
[2022-11-05 17:56] LABS: Glucose,Whole Blood 116 mg/dL (70-110)
[2022-11-05] MEDS: INSULIN ASPART (NovoLOG) 100 UNIT/ML VIAL SQ SCH ×2 (18:03→20:43)
[2022-11-05] MEDS: PREGABALIN 100 MG CAP PO SCH ×2 (18:07→21:47)
[2022-11-05 20:31] LABS: Glucose,Whole Blood 130 mg/dL (70-110)
[2022-11-05] MEDS: busPIRone HCl 10 MG TAB PO SCH (20:37)
[2022-11-05] MEDS: ZIPRASIDONE 20 MG CAP PO SCH (20:41)
[2022-11-05] MEDS: PROPRANOLOL 40 MG TAB PO SCH (20:42)
[2022-11-05] MEDS ORDERED: MIRTAZAPINE 15 MG TAB PO SCH (21:00)
[2022-11-05] MEDS ORDERED: PANTOPRAZOLE 40 MG TABLET PO SCH (21:00)
[2022-11-05] MEDS ORDERED: PRAVASTATIN SODIUM 40 MG TAB PO SCH (21:00)
[2022-11-05] MEDS ORDERED: cloNIDine HCL 0.2 MG TAB PO PRN (22:28)
[2022-11-05] MEDS ORDERED: chlordiazePOXIDE 25 MG CAP PO STA (22:29)
[2022-11-06 06:55] LABS: Glucose,Whole Blood 156 mg/dL (70-110)
[2022-11-06 07:03] LABS: Anisocytosis Slight; Basophils % (A) 0 %; Eosinophils # (A) 0.3 k/uL (0-0.7); Eosinophils % (A) 6 %; HCT 29.3 % (39.0-53.0); HGB 9.6 gm/dL (13.0-17.5); Lymphocytes # (A) 1.4 k/uL (1.0-4.8); Lymphocytes % (A) 28 %; MCH 29.7 pg (25.0-35.0); MCHC 32.7 g/dL (31.0-37.0); Mean Platelet Volume 7.2; Monocytes # (A) 0.3 k/uL (0-1.0); Monocytes % (A) 6 %; Neutrophils # (A) 2.8 k/uL (1.3-7.7); Neutrophils % (A) 56 %; Platelet Count 347 k/uL (150-450); RBC 3.23 m/uL (4.30-5.90); RDW 16.2 % (11.5-15.5); WBC 4.9 k/uL (3.8-10.6)
[2022-11-06 07:22] LABS: African American GFR (CKD) >90 (>60 ml/min/1.73 sqM); Anion Gap 3 mmol/L; Blood Urea Nitrogen 8 mg/dL (9-20); Calcium 7.7 mg/dL (8.4-10.2); Carbon Dioxide 27 mmol/L (22-30); Chloride 108 mmol/L (98-107); Glucose 147 mg/dL (74-99); Magnesium 1.8 mg/dL (1.6-2.3); Non-African American GFR(CKD) >90 (>60 ml/min/1.73 sqM); Potassium 4.1 mmol/L (3.5-5.1); Sodium 138 mmol/L (137-145)
[2022-11-06 07:32] LABS: Glucose,Whole Blood 156 mg/dL (70-110)
[2022-11-06] MEDS: INSULIN ASPART (NovoLOG) 100 UNIT/ML VIAL SQ SCH (07:51)
[2022-11-06] MEDS ORDERED: ASPIRIN 81 MG PO SCH (09:00)
[2022-11-06] MEDS ORDERED: ENOXAPARIN 40 MG/0.4 ML SYRINGE SQ SCH (09:00)
[2022-11-06] MEDS ORDERED: THIAMINE 100 MG TAB PO SCH (09:00)
[2022-11-06] MEDS ORDERED: FOLIC ACID 1 MG TAB PO SCH (09:00)
[2022-11-06] MEDS ORDERED: FERROUS SULFATE 325 MG TAB PO SCH (09:00)
[2022-11-06] MEDS ORDERED: NICOTINE 14MG/24HR PATCH TRANSDERM SCH (09:00)
[2022-11-06] MEDS ORDERED: NON FORMULARY DRUG (Vitamin B Complex [Vitamin B Complex] 1 EACH Capsule) PO SCH (09:00)
[2022-11-06] MEDS ORDERED: MULTIVITAMINS, THERA 1 EACH TAB PO SCH (09:00)
[2022-11-06] MEDS: busPIRone HCl 10 MG TAB PO SCH (09:39)
[2022-11-06] MEDS: PREGABALIN 100 MG CAP PO SCH (10:24)
[2022-11-06] MEDS: PROPRANOLOL 40 MG TAB PO SCH (10:24)
[2022-11-06] MEDS: ZIPRASIDONE 20 MG CAP PO SCH (10:25)
[2022-11-06 10:31] VITALS: BP 127/90; PULSE 98; RESP 18; TEMP 97.8
--- NOTE | 2022-11-06 14:27 | P.DS ---
Providers Date of admission: 11/05/22 13:27 Expected date of discharge: 11/06/22 Attending physician: Jalen Del Toro MD Primary care physician: Physician Nonstaff Hospital Course: Discharge Diagnosis: Acute alcohol intoxication and known alcoholic Social stressor homelessness. Patient was [facility]22 and since that time has presetned 8 times to the emergency department with varying different complaints. Anemia- stable from admission - 9.6 on discharge and 9.3 on at 0125 Hypomagnesemia Anion gap metabolic acidosis- resolved Sinus tachycardia- resolved DM 2 Hospital Course: Patient is a 57-year-old male well known to our facility with a history of alcohol dependency, hypertension, dyslipidemia, type 2 diabetes, chronic back pain, COPD, tobacco abuse, and obstructive sleep apnea not on CPAP use who presented to the ER with alcohol intoxication. He initially presented to the ER on his own with wanting to detox and possibly get into alcohol rehab. On arrival to the ER he was slightly tachycardic with a pulse of 110 and blood pressure 162/113. Initial laboratory analysis was remarkable for hemoglobin of 9.3, chloride 110, carbon dioxide 21, calcium 8.1, magnesium 1.4, alcohol level of 275, and urine drug screen positive for opiates, tricyclics, and benzodiazepines. He is admitted for acute alcohol intoxication. He was started on CIWA protocol. On 11/06/22 patient had required no additional Ativan dosing for over 12 hours. He stated he was feeling well. We discussed that should he want to pursue with alcohol rehab this is a voluntary program which she needs to call coordinate. He was given information on these programs in the numbers to contact on discharge. Patient was determined stable for discharge Patient is at a high likelihood for readmission due to his homelessness, he has been seen multiple times in the emergency department setting over the last 1 week. On discharge from the mental health unit he was given a list of shelters options. Prior to this they looked at the options of [facility] and patient was unable to return, he refuses referral to [facility], and his sister stated patient was unable to return with her. Patient seen and examined at bedside. He has no complaints and is feeling good at this time. Vital signs reviewed and stable. General: nontoxic, no distress, appears at stated age Cardiovascular: S1S2 reg, no murmur, positive posterior tibial pulse bilateral, Lungs: CTA bilateral, no rhonchi, no rales , no accessory muscle use Ext: no gross muscle atrophy, no edema b/l lower extremities, no contractures Neuro: CN II-XI grossly intact, no focal neuro deficits Psych: Alert, oriented, appropriate affect A total of 25 minutes of time were spent preparing this complex discharge summary. Patient was discharged on 11/06/22. This dictation was prepared using [employer] voice recognition software. Though every attempt is made to correct errors during dictation some may still exist. Patient Condition at Discharge: Stable Plan - Discharge Summary New Discharge Prescriptions: Continue Calcium Carbonate [Tums] 500 mg PO QID PRN 30 Days PRN Reason: Heartburn Ferrous Sulfate [Iron (65 MG Elemental)] 325 mg PO DAILY 30 Days tab Vitamin B Complex 1 cap PO DAILY 30 Days cap Thiamine [Vitamin B-1] 100 mg PO DAILY #30 tab busPIRone HCl [Buspar] 20 mg PO BID 14 Days #56 tab Mag Hydrox/Al Hydrox/Simeth [Maalox] 30 ml PO Q4HR PRN ml PRN Reason: Gi Upset metFORMIN HCL [Glucophage] 1,000 mg PO BID 14 Days #28 tab glipiZIDE [Glucotrol] 20 mg PO BID 14 Days #56 tab Pravastatin Sodium [Pravachol] 40 mg PO HS 14 Days #14 tab Propranolol HCl 40 mg PO BID 14 Days #28 tablet Cyclobenzaprine [Flexeril] 5 mg PO TID 5 Days #15 tablet Multivitamins, Thera [Multivitamin (formulary)] 1 tab PO DAILY Sennosides/Docusate Sodium [Senna Plus 8.6-50 mg Softgel] 1 tab PO DAILY PRN PRN Reason: Constipation Melatonin 5 mg PO HS PRN PRN Reason: Insomnia Pregabalin [Lyrica] 100 mg PO TID Folic Acid 1 mg PO DAILY #30 tab Ziprasidone [Geodon] 20 mg PO BID 14 Days #28 cap Nicotine 14Mg/24Hr Patch [Habitrol] 1 patch TRANSDERM DAILY 14 Days #14 patch Aspirin EC [Ecotrin Low Dose] 81 mg PO DAILY 14 Days #14 tab Pantoprazole [Protonix] 40 mg PO HS 14 Days #14 tab Mirtazapine [Remeron] 15 mg PO HS 14 Days #14 tab Lidocaine 5% Patch [Lidoderm 5% Patch] 1 patch TOPICAL DAILY PRN 14 Days #14 patch PRN Reason: Pain Discharge Medication List Calcium Carbonate [Tums] 500 mg PO QID PRN 30 Days 08/17/21 [Rx] Ferrous Sulfate [Iron (65 MG Elemental)] 325 mg PO DAILY 30 Days tab 08/17/21 [Rx] Vitamin B Complex 1 cap PO DAILY 30 Days cap 08/17/21 [Rx] Multivitamins, Thera [Multivitamin (formulary)] 1 tab PO DAILY 10/07/21 [History] Melatonin 5 mg PO HS PRN 09/11/22 [History] Pregabalin [Lyrica] 100 mg PO TID 09/11/22 [History] Sennosides/Docusate Sodium [Senna Plus 8.6-50 mg Softgel] 1 tab PO DAILY PRN 09/11/22 [History] Folic Acid 1 mg PO DAILY #30 tab 10/16/22 [Rx] Thiamine [Vitamin B-1] 100 mg PO DAILY #30 tab 10/16/22 [Rx] Aspirin EC [Ecotrin Low Dose] 81 mg PO DAILY 14 Days #14 tab 11/01/22 [Rx] Mag Hydrox/Al Hydrox/Simeth [Maalox] 30 ml PO Q4HR PRN ml 11/01/22 [Rx] Mirtazapine [Remeron] 15 mg PO HS 14 Days #14 tab 11/01/22 [Rx] Nicotine 14Mg/24Hr Patch [Habitrol] 1 patch TRANSDERM DAILY 14 Days #14 patch 11/01/22 [Rx] Pantoprazole [Protonix] 40 mg PO HS 14 Days #14 tab 11/01/22 [Rx] Pravastatin Sodium [Pravachol] 40 mg PO HS 14 Days #14 tab 11/01/22 [Rx] Propranolol HCl 40 mg PO BID 14 Days #28 tablet 11/01/22 [Rx] Ziprasidone [Geodon] 20 mg PO BID 14 Days #28 cap 11/01/22 [Rx] busPIRone HCl [Buspar] 20 mg PO BID 14 Days #56 tab 11/01/22 [Rx] glipiZIDE [Glucotrol] 20 mg PO BID 14 Days #56 tab 11/01/22 [Rx] metFORMIN HCL [Glucophage] 1,000 mg PO BID 14 Days #28 tab 11/01/22 [Rx] Cyclobenzaprine [Flexeril] 5 mg PO TID 5 Days #15 tablet 11/02/22 [Rx] Lidocaine 5% Patch [Lidoderm 5% Patch] 1 patch TOPICAL DAILY PRN 14 Days #14 patch 11/02/22 [Rx] Follow up Appointment(s)/Referral(s): Nonstaff,Physician [Primary Care Provider] - 1-2 days Patient Instructions/Handouts: Alcohol Intoxication (DC) Activity/Diet/Wound Care/Special Instructions: Activity: As tolerated Diet: carb consistent Special Instructions: Abstain from Alcohol Discharge/Stand Alone Forms: AA Meetings [place] Shelters, Inp Substance Abuse Facilities, Area PCPs Discharge Disposition: HOME SELF-CARE
== END 2022-11-06 10:38 | disposition home or self-care (01) | DRG 897 ==
LOC: EC 09:24 → 4SSUR 13:27
PROVIDERS: ADMIT Student in an Organized Health Care Education/Training Program; ATTEND Student in an Organized Health Care Education/Training Program
DX: F10.229 Alcohol dependence with intoxication, unspecified (principal); M54.50 Low back pain, unspecified; D64.9 Anemia, unspecified; E78.5 Hyperlipidemia, unspecified; E83.42 Hypomagnesemia; F17.290 Nicotine dependence, other tobacco product, uncomplicated; F25.9 Schizoaffective disorder, unspecified; F43.10 Post-traumatic stress disorder, unspecified; K21.9 Gastro-esophageal reflux disease without esophagitis; G89.29 Other chronic pain; G47.33 Obstructive sleep apnea (adult) (pediatric); R00.0 Tachycardia, unspecified; K74.60 Unspecified cirrhosis of liver; I10 Essential (primary) hypertension; Y90.8 Blood alcohol level of 240 mg/100 ml or more; Z79.82 Long term (current) use of aspirin; Z79.84 Long term (current) use of oral hypoglycemic drugs; Z79.899 Other long term (current) drug therapy; Z82.49 Family history of ischemic heart disease and other diseases of the circulatory system; Z96.643 Presence of artificial hip joint, bilateral; Z81.8 Family history of other mental and behavioral disorders; Z88.1 Allergy status to other antibiotic agents; Z88.8 Allergy status to other drugs, medicaments and biological substances; Z71.41 Alcohol abuse counseling and surveillance of alcoholic
CPT/HCPCS: 36415; 70450; 71046; 80048; 80053; 80306; 80320; 82140; 83036; 83690; 83735; 84484; 85025; 85610; 85730; 93005; 96361; 96365; 96366; 96368; 96372; 96375; 99285

== ENCOUNTER 2022-11-13 14:52 | Emergency (ER) | payer MEDICARE, OTHER ==
[2022-11-13 15:29] VITALS: TEMP 98.3
[2022-11-13] MEDS ORDERED: ONDANSETRON 4 MG/2 ML VIAL IVP STA (16:29)
[2022-11-13] MEDS ORDERED: KETOROLAC 15 MG/ML 1 ML VIAL IVP STA (16:29)
[2022-11-13] MEDS ORDERED: SODIUM CHLORIDE 0.9% 1,000 ML IV STA (16:29)
--- NOTE | 2022-11-13 16:51 | ED ---
General Adult HPI - General Chief complaint: Abdominal Pain Stated complaint: lower abd pain Time Seen by Provider: 11/13/22 16:19 Source: patient, RN notes reviewed Mode of arrival: ambulatory Limitations: no limitations - History of Present Illness Initial comments: 49-year-old male presents emergency department chief complaint of abdominal pain. Patient has an extensive history of this pain in the epigastric region without radiation. Patient states that it started as morning after a night of heavy drinking. He states that it feels like his prior pancreatitis. He reports that he drank 2 fifths last night. Denies fever, chills. He reports nausea without vomiting. - Related Data Home Medications Medication Instructions Recorded Confirmed Multivitamins, Thera [Multivitamin 1 tab PO DAILY 10/07/21 11/05/22 (formulary)] Melatonin 5 mg PO HS PRN 09/11/22 11/05/22 Pregabalin [Lyrica] 100 mg PO TID 09/11/22 11/05/22 Sennosides/Docusate Sodium [Senna 1 tab PO DAILY PRN 09/11/22 11/05/22 Plus 8.6-50 mg Softgel] Previous Rx's Medication Instructions Recorded Calcium Carbonate [Tums] 500 mg PO QID PRN 30 Days 08/17/21 Ferrous Sulfate [Iron (65 MG 325 mg PO DAILY 30 Days tab 08/17/21 Elemental)] Vitamin B Complex 1 cap PO DAILY 30 Days cap 08/17/21 Folic Acid 1 mg PO DAILY #30 tab 10/16/22 Thiamine [Vitamin B-1] 100 mg PO DAILY #30 tab 10/16/22 Aspirin EC [Ecotrin Low Dose] 81 mg PO DAILY 14 Days #14 tab 11/01/22 Mag Hydrox/Al Hydrox/Simeth 30 ml PO Q4HR PRN ml 11/01/22 [Maalox] Mirtazapine [Remeron] 15 mg PO HS 14 Days #14 tab 11/01/22 Nicotine 14Mg/24Hr Patch [Habitrol] 1 patch TRANSDERM DAILY 14 Days 11/01/22 #14 patch Pantoprazole [Protonix] 40 mg PO HS 14 Days #14 tab 11/01/22 Pravastatin Sodium [Pravachol] 40 mg PO HS 14 Days #14 tab 11/01/22 Propranolol HCl 40 mg PO BID 14 Days #28 tablet 11/01/22 Ziprasidone [Geodon] 20 mg PO BID 14 Days #28 cap 11/01/22 busPIRone HCl [Buspar] 20 mg PO BID 14 Days #56 tab 11/01/22 glipiZIDE [Glucotrol] 20 mg PO BID 14 Days #56 tab 11/01/22 metFORMIN HCL [Glucophage] 1,000 mg PO BID 14 Days #28 tab 11/01/22 Cyclobenzaprine [Flexeril] 5 mg PO TID 5 Days #15 tablet 11/02/22 Lidocaine 5% Patch [Lidoderm 5% 1 patch TOPICAL DAILY PRN 14 Days 11/02/22 Patch] #14 patch Allergies Allergy/AdvReac Type Severity Reaction Status Date / Time thimerosal Allergy Severe Rash/Hives/throat Verified 11/13/22 15:29 swelling neomycin Allergy Rash/Hives Verified 11/13/22 15:29 Review of Systems ROS Statement: Those systems with pertinent positive or pertinent negative responses have been documented in the HPI. ROS Other: All systems not noted in ROS Statement are negative. Past Medical History Past Medical History: Diabetes Mellitus, GERD/Reflux, Hyperlipidemia, Hypertension, Liver Disease, Renal Disease, Sleep Apnea/CPAP/BIPAP Additional Past Medical History / Comment(s): Neuropathy, back pain, no CPAP use, Cirrhosis, "kidneys don't always work right." , pancreatitis History of Any Multi-Drug Resistant Organisms: None Reported Past Surgical History: Heart Catheterization, Joint Replacement, Orthopedic Surgery Additional Past Surgical History / Comment(s): Bilateral cataracts removed, bilateral hip replacements, right heal surgery with screws/plates/pins placed, L2-L4 cage infusion, Past Anesthesia/Blood Transfusion Reactions: No Reported Reaction Past Psychological History: Anxiety, Bipolar, Depression, PTSD, Schizoaffective Disorder Smoking Status: Current every day smoker, Vaper Past Alcohol Use History: Abuse, Daily, Heavy Past Drug Use History: None Reported - Past Family History Father Family Medical History: Myocardial Infarction ([place]) Additional Family Medical History / Comment(s): [place] in mid 30's. Mother Family Medical History: Dementia family Additional Family Medical History / Comment(s): Anxiety. General Exam Limitations: no limitations General appearance: alert, in no apparent distress Head exam: Present: atraumatic, normocephalic, normal inspection Eye exam: Present: normal appearance, PERRL, EOMI. Absent: scleral icterus, conjunctival injection, periorbital swelling ENT exam: Present: normal exam, mucous membranes moist Neck exam: Present: normal inspection. Absent: tenderness, meningismus, lymphadenopathy Respiratory exam: Present: normal lung sounds bilaterally. Absent: respiratory distress, wheezes, rales, rhonchi, stridor Cardiovascular Exam: Present: regular rate, normal rhythm, normal heart sounds. Absent: systolic murmur, diastolic murmur, rubs, gallop, clicks GI/Abdominal exam: Present: soft, normal bowel sounds. Absent: distended, tenderness, guarding, rebound, rigid Extremities exam: Present: normal inspection, full ROM, normal capillary refill. Absent: tenderness, pedal edema, joint swelling, calf tenderness Back exam: Present: normal inspection Neurological exam: Present: alert, oriented X3 Psychiatric exam: Present: normal affect, normal mood Skin exam: Present: warm, dry, intact, normal color, other (DP and PT pulses 2+). Absent: rash Course Vital Signs 11/13/22 11/13/22 15:25 20:12 Temperature 98.3 F Pulse Rate 108 H 103 H Respiratory 20 17 Rate Blood Pressure 106/73 105/65 O2 Sat by Pulse 96 97 Oximetry Medical Decision Making - Medical Decision Making Was pt. sent in by a medical professional or institution (JACQUES Bryan, DATA TECHNICAL LEAD, urgent care, hospital, or fci...) When possible be specific @ -No Did you speak to anyone other than the patient for history (EMS, parent, family, police, friend...)? What history was obtained from this source @ -No Did you review nursing and triage notes (agree or disagree)? Why? @ -I reviewed and agree with nursing and triage notes Were old charts reviewed (outside hosp., previous admission, EMS record, old EKG, old radiological studies, urgent care reports/EKG's, fci records)? Report findings @ -Prior laboratory studies, imaging from prior visits were reviewed Differential Diagnosis (chest pain, altered mental status, abdominal pain women, abdominal pain men, vaginal bleeding, weakness, fever, dyspnea, syncope, headache, dizziness, GI bleed, back pain, seizure, CVA, palpatations, mental health, musculoskeletal)? @ -Differential Abdominal Pain Men: Appendicitis, cholecystitis, diverticulosis, ischemic bowel, pancreatitis, hepatitis, UTI, gastroenteritis, AAA, incarcerated hernia, bowel obstruction, constipation, inflammatory bowel, hepatitis, peptic ulcer disease, splenic infarction, perforated viscus, testicular torsion, this is not meant to be an all-inclusive list EKG interpreted by me (3pts min.). @ -As above X-rays interpreted by me (1pt min.). @ -None done CT interpreted by me (1pt min.). @ -None done U/S interpreted by me (1pt. min.). @ -None done What testing was considered but not performed or refused? (CT, X-rays, U/S, labs)? Why? @ -None What meds were considered but not given or refused? Why? @ -None Did you discuss the management of the patient with other professionals (professionals i.e. , PA, DATA TECHNICAL LEAD, lab, RT, psych nurse, adoption social worker, racebook writer, teacher, chief media officer, immigration case worker)? Give summary @ -No Was smoking cessation discussed for >3mins.? @ -No Was critical care preformed (if so, how long)? @ -No Were there social determinants of health that impacted care today? How? (Homelessness, low income, unemployed, alcoholism, drug addiction, transportation, low edu. Level, literacy, decrease access to med. care, nursing home, re hab)? @ -No Was there de-escalation of care discussed even if they declined (Discuss DNR or withdrawal of care, Hospice)? DNR status @ -No What co-morbidities impacted this encounter? (DM, HTN, Smoking, COPD, CAD, Cancer, CVA, ARF, Chemo, Hep., AIDS, mental health diagnosis, sleep apnea, morbid obesity)? @ -None Was patient admitted / discharged? Hospital course, mention meds given and route, prescriptions, significant lab abnormalities, going to OR and other pertinent info. @ -Discharged. Patient reports to the emergency department with chief complaint of epigastric pain after a night of heavy drinking. Patient reports a history of pancreatitis and states this pain is the same as his prior episodes. On examination, patient is nontender, abdomen soft, patient neurovascularly intact in distal extremities. IV access was unable to be obtained in patient. Patient given IM toradol for his pain. CBC showed WBC 4.9, hemoglobin 11.5 consistent with prior lab studies, CMP showed sodium 136, potassium 4.2, creatinine 0.61, alk phos 138, lipase 107. Advised patient that it does not look like he has pancreatitis at this time based on his laboratory studies. Patient reports improvement in his pain with the toradol. Patient discharged in stable condition and return precautions discussed. Case discussed with my attending, Dr. Lyons Undiagnosed new problem with uncertain prognosis? @ -No Drug Therapy requiring intensive monitoring for toxicity (Heparin, Nitro, Insulin, Cardizem)? @ -No Were any procedures done? @ -No Diagnosis/symptom? @ -abdominal pain Acute, or Chronic, or Acute on Chronic? @ -acute Uncomplicated (without systemic symptoms) or Complicated (systemic symptoms)? @ -uncomplicated Side effects of treatment? @ -No Exacerbation, Progression, or Severe Exacerbation? @ -No Poses a threat to life or bodily function? How? (Chest pain, [place], [place], pneumonia, PE, COPD, DKA, ARF, appy, cholecystitis, CVA, Diverticulitis, Homicidal, Suicidal, threat to staff... and all critical care pts) @ -No - Lab Data Result diagrams: 11/13/22 18:00 11/13/22 18:00 Lab Results 11/13/22 11/13/22 Range/Units 18:00 18:00 WBC 4.9 (3.8-10.6) k/uL RBC 3.68 L (4.30-5.90) m/uL Hgb 11.5 L (13.0-17.5) gm/dL Hct 33.6 L (39.0-53.0) % MCV 91.3 (80.0-100.0) fL MCH 31.3 (25.0-35.0) pg MCHC 34.3 (31.0-37.0) g/dL RDW 17.3 H (11.5-15.5) % Plt Count 263 (150-450) k/uL MPV 9.3 Neutrophils % 51 % Lymphocytes % 36 % Monocytes % 8 % Eosinophils % 2 % Basophils % 1 % Neutrophils # 2.5 (1.3-7.7) k/uL Lymphocytes # 1.7 (1.0-4.8) k/uL Monocytes # 0.4 (0-1.0) k/uL Eosinophils # 0.1 (0-0.7) k/uL Basophils # 0.0 (0-0.2) k/uL Anisocytosis Slight Sodium 136 L (137-145) mmol/L Potassium 4.2 (3.5-5.1) mmol/L Chloride 101 (98-107) mmol/L Carbon Dioxide 25 (22-30) mmol/L Anion Gap 10 mmol/L BUN 5 L (9-20) mg/dL Creatinine 0.61 L (0.66-1.25) mg/dL Est GFR (CKD-EPI)AfAm >90 (>60 ml/min/1.73 sqM) Est GFR (CKD-EPI)NonAf >90 (>60 ml/min/1.73 sqM) Glucose 134 H (74-99) mg/dL Calcium 8.6 (8.4-10.2) mg/dL Total Bilirubin 0.9 (0.2-1.3) mg/dL AST 39 (17-59) U/L ALT 23 (4-49) U/L Alkaline Phosphatase 138 H (38-126) U/L Total Protein 6.7 (6.3-8.2) g/dL Albumin 3.8 (3.5-5.0) g/dL Amylase 39 (30-110) U/L Lipase 107 (23-300) U/L Disposition Clinical Impression: Abdominal pain Disposition: HOME SELF-CARE Condition: Stable Instructions (If sedation given, give patient instructions): Abdominal Pain (ED) Additional Instructions: Please follow up with your primary care provider. Return to the emergency department with new or worsening symptoms. Is patient prescribed a controlled substance at d/c from ED?: No Referrals: None,Stated [Primary Care Provider] - 1-2 days Time of Disposition: 20:10
[2022-11-13] MEDS ORDERED: ONDANSETRON ODT 4 MG TAB PO STA (18:13)
[2022-11-13] MEDS ORDERED: KETOROLAC 15 MG/ML 1 ML VIAL IM STA (18:13)
[2022-11-13 18:37] LABS: ALT 23 U/L (4-49); African American GFR (CKD) >90 (>60 ml/min/1.73 sqM); Amylase 39 U/L (30-110); Anion Gap 10 mmol/L; Blood Urea Nitrogen 5 mg/dL (9-20); Calcium 8.6 mg/dL (8.4-10.2); Carbon Dioxide 25 mmol/L (22-30); Chloride 101 mmol/L (98-107); Glucose 134 mg/dL (74-99); Lipase 107 U/L (23-300); Non-African American GFR(CKD) >90 (>60 ml/min/1.73 sqM); Sodium 136 mmol/L (137-145); Total Bilirubin 0.9 mg/dL (0.2-1.3)
[2022-11-13 18:54] LABS: Anisocytosis Slight; Basophils % (A) 1 %; Eosinophils # (A) 0.1 k/uL (0-0.7); Eosinophils % (A) 2 %; HCT 33.6 % (39.0-53.0); HGB 11.5 gm/dL (13.0-17.5); Lymphocytes # (A) 1.7 k/uL (1.0-4.8); Lymphocytes % (A) 36 %; MCH 31.3 pg (25.0-35.0); MCHC 34.3 g/dL (31.0-37.0); MCV 91.3 fL (80.0-100.0); Mean Platelet Volume 9.3; Monocytes # (A) 0.4 k/uL (0-1.0); Monocytes % (A) 8 %; Neutrophils # (A) 2.5 k/uL (1.3-7.7); Neutrophils % (A) 51 %; Platelet Count 263 k/uL (150-450); RBC 3.68 m/uL (4.30-5.90); RDW 17.3 % (11.5-15.5); WBC 4.9 k/uL (3.8-10.6)
[2022-11-13 19:13] LABS: AST 39 U/L (17-59); Albumin 3.8 g/dL (3.5-5.0); Alkaline Phosphatase 138 U/L (38-126); Potassium 4.2 mmol/L (3.5-5.1); Total Protein 6.7 g/dL (6.3-8.2)
[2022-11-13 20:13] VITALS: BP 105/65; PULSE 103; RESP 17
== END 2022-11-13 20:15 | disposition home or self-care (01) ==
LOC: EC 14:52
DX: R10.30 Lower abdominal pain, unspecified (principal); E11.9 Type 2 diabetes mellitus without complications; I10 Essential (primary) hypertension; F41.9 Anxiety disorder, unspecified; F31.9 Bipolar disorder, unspecified; F17.290 Nicotine dependence, other tobacco product, uncomplicated; Z88.1 Allergy status to other antibiotic agents; Z88.8 Allergy status to other drugs, medicaments and biological substances; Z79.899 Other long term (current) drug therapy
CPT/HCPCS: 36415; 80053; 82150; 83690; 85025; 99284; 96372; J1885

== ENCOUNTER → 2023-03-21 | Outpatient (CLI) | payer MEDICARE, OTHER ==
--- NOTE | 2023-03-21 13:21 | CTL ---
EXAMINATION TYPE: CT Low Dose Lung DATE OF EXAM ORDERED: 03/21/2023 COMPARISON: CT PE chest 10/11/2022 HISTORY: . Low Dose CT Lung Screening CT DLP: 83.[address] CTDI: 2.3 mGy IV CONTRAST USED: None. SCREENING VISIT: First visit COMPARISON: None. TECHNIQUE: Low dose computed tomography scan was performed through the chest at 1 millimeter thick se ctions and reconstructed images in the coronal plane at [address] DIAGNOSTIC QUALITY: Satisfactory FINDINGS: LUNG NODULES: Not presentLeft lung: no nodules identified.Right lung: no nodules identified. LUNGS: COPD: Severity: Mild Fibrosis: Severity: Mild scattered subpleural fibrosis. Lymph nodes: None Other findings: None RIGHT PLEURAL SPACE: Effusion: None Calcification: None Thickening: None Pneumothorax: None LEFT PLEURAL SPACE: Effusion: None Calcification: None Thickening: None Pneumothorax: None HEART: Heart Size: Mildly enlarged Coronary calcification: Mild Pericardial effusion: None OTHER FINDINGS: Upper abdomen: No significant abnormality Bony thorax: Degenerative changes Supraclavicular region: No significant abnormalityOther: No significant abnormalityI IMPRESSION: No distinct pulmonary nodularity appreciated. FOLLOW UP CT CHEST RECOMMENDATION: Follow-up screening in one year CT LUNG RAD: LUNG RAD CATEGORY 1 negative
== END | disposition home or self-care (01) ==
LOC: RADCTMAIN 12:36
PROVIDERS: ATTEND Family Medicine
DX: Z12.2 Encounter for screening for malignant neoplasm of respiratory organs (principal); F17.210 Nicotine dependence, cigarettes, uncomplicated
CPT/HCPCS: 71271

== ENCOUNTER 2023-08-18 07:51 | Emergency (ER) | payer BC, MEDICARE, OTHER ==
[2023-08-18 08:38] LABS: Basophils # (A) 0.1 k/uL (0-0.2); Basophils % (A) 1 %; Eosinophils # (A) 0.4 k/uL (0-0.7); Eosinophils % (A) 3 %; HCT 44.2 % (39.0-53.0); HGB 14.4 gm/dL (13.0-17.5); Lymphocytes # (A) 2.1 k/uL (1.0-4.8); Lymphocytes % (A) 18 %; MCH 29.3 pg (25.0-35.0); MCHC 32.6 g/dL (31.0-37.0); MCV 89.7 fL (80.0-100.0); Mean Platelet Volume 7.5; Monocytes # (A) 0.5 k/uL (0-1.0); Monocytes % (A) 5 %; Neutrophils # (A) 7.9 k/uL (1.3-7.7); Neutrophils % (A) 70 %; Platelet Count 464 k/uL (150-450); RBC 4.92 m/uL (4.30-5.90); RDW 13.6 % (11.5-15.5); WBC 11.4 k/uL (3.8-10.6)
--- NOTE | 2023-08-18 08:43 | XR ---
EXAMINATION TYPE: XR chest 2V DATE OF EXAM: 08/18/2023 COMPARISON: 12/15/2022 HISTORY: Chest pain TECHNIQUE: Frontal and lateral views of the chest are obtained. FINDINGS: There is no focal air space opacity, pleural effusion, or pneumothorax seen. The cardiac silhouette size is within normal limits. The osseous structures are intact. There is mild stable elevation rig ht hemidiaphragm. IMPRESSION: No acute cardiopulmonary process.
[2023-08-18 08:53] LABS: INR 0.8 (<1.2); Partial Thromboplastin Time 26.1 sec (22.0-30.0); Prothrombin Time 9.6 sec (10.0-12.5)
--- NOTE | 2023-08-18 09:00 | ED ---
General Adult HPI - General Chief complaint: Chest Pain Stated complaint: Chest Pain, Congestion Time Seen by Provider: 08/18/23 08:06 Source: patient, RN notes reviewed, old records reviewed Mode of arrival: ambulatory Limitations: no limitations - History of Present Illness Initial comments: 58-year-old male presenting with approximately 1 week of cough and cold symptoms. He reports nasal congestion and chest congestion. He developed left anterior sharp chest pain worse with cough which began over the past 24 hours. No fever. He states his cough is somewhat productive. Patient denies prior history of CAD. Denies associated diaphoresis or vomiting. Pain does not radiate. - Related Data Home Medications Medication Instructions Recorded Confirmed Escitalopram [Lexapro] 10 mg PO DAILY 12/15/22 12/15/22 Gabapentin [Neurontin] 300 mg PO TID 12/15/22 12/15/22 Lipase/Protease/Amylase [Creon Dr 24,000 units PO TID-W/MEALS 12/15/22 12/15/22 24,000 Unit Capsule] OLANZapine [ZyPREXA] 5 mg PO HS 12/15/22 12/15/22 Pantoprazole [Protonix] 40 mg PO BID 12/15/22 12/15/22 busPIRone HCL 15 mg PO BID 12/15/22 12/15/22 Previous Rx's Medication Instructions Recorded Ferrous Sulfate [Iron (65 MG 325 mg PO DAILY 30 Days tab 08/17/21 Elemental)] Aspirin EC [Ecotrin Low Dose] 81 mg PO DAILY 14 Days #14 tab 11/01/22 Mirtazapine [Remeron] 15 mg PO HS 14 Days #14 tab 11/01/22 Pravastatin Sodium [Pravachol] 40 mg PO HS 14 Days #14 tab 11/01/22 glipiZIDE [Glucotrol] 20 mg PO BID 14 Days #56 tab 11/01/22 metFORMIN HCL [Glucophage] 1,000 mg PO BID 14 Days #28 tab 11/01/22 Magnesium Oxide [Mag-Ox] 400 mg PO BID #60 tab 12/17/22 Propranolol LA [Inderal LA] 80 mg PO DAILY #30 cap 12/17/22 Thiamine [Vitamin B-1] 100 mg PO DAILY #30 tab 12/17/22 Albuterol Inhaler [Ventolin Hfa 1 - 2 puff INHALATION Q4HR PRN #1 08/18/23 Inhaler] each Azithromycin [Zithromax Z Pack] 1 tab PO DIRECTED #6 tab 08/18/23 predniSONE 50 mg PO DAILY #5 tab 08/18/23 Allergies Allergy/AdvReac Type Severity Reaction Status Date / Time thimerosal Allergy Severe Rash/Hives/throat Verified 08/18/23 07:56 swelling neomycin Allergy Rash/Hives Verified 08/18/23 07:56 Review of Systems ROS Statement: Those systems with pertinent positive or pertinent negative responses have been documented in the HPI. ROS Other: All systems not noted in ROS Statement are negative. Past Medical History Past Medical History: Diabetes Mellitus, GERD/Reflux, Hyperlipidemia, Hypertension, Liver Disease, Renal Disease, Sleep Apnea/CPAP/BIPAP Additional Past Medical History / Comment(s): Neuropathy, back pain, no CPAP use, Cirrhosis, "kidneys don't always work right." , pancreatitis History of Any Multi-Drug Resistant Organisms: None Reported Past Surgical History: Heart Catheterization, Joint Replacement, Orthopedic Surgery Additional Past Surgical History / Comment(s): Bilateral cataracts removed, bilateral hip replacements, right heal surgery with screws/plates/pins placed, L2-L4 cage infusion, Past Anesthesia/Blood Transfusion Reactions: No Reported Reaction Past Psychological History: Anxiety, Bipolar, Depression, PTSD, Schizoaffective Disorder Smoking Status: Current every day smoker, Vaper Past Alcohol Use History: Abuse, Daily, Heavy Past Drug Use History: None Reported - Past Family History Father Family Medical History: Myocardial Infarction (NC) Additional Family Medical History / Comment(s): NC in mid 30's. Mother Family Medical History: Dementia family Additional Family Medical History / Comment(s): Anxiety. General Exam Limitations: no limitations General appearance: alert, in no apparent distress Head exam: Present: atraumatic, normocephalic Eye exam: Present: normal appearance, PERRL ENT exam: Present: normal exam Neck exam: Present: normal inspection. Absent: tenderness, meningismus Respiratory exam: Present: normal lung sounds bilaterally. Absent: respiratory distress, wheezes Cardiovascular Exam: Present: regular rate, normal rhythm GI/Abdominal exam: Present: soft. Absent: distended, tenderness, guarding, rebound Extremities exam: Present: normal inspection, normal capillary refill Neurological exam: Present: alert, oriented X3, CN II-XII intact. Absent: motor sensory deficit Psychiatric exam: Present: normal affect, normal mood Skin exam: Present: warm, dry, intact. Absent: cyanosis, diaphoretic Course Vital Signs 08/18/23 08/18/23 08/18/23 07:52 08:14 08:42 Temperature 97.5 F L Pulse Rate 51 L 84 94 Respiratory 20 20 22 Rate Blood Pressure 126/89 117/86 145/83 O2 Sat by Pulse 95 96 100 Oximetry Medical Decision Making - Medical Decision Making Was pt. sent in by a medical professional or institution (, PA, [facility] [facility], urgent care, hospital, or half-way...) When possible be specific @ -No Did you speak to anyone other than the patient for history (EMS, parent, family, police, friend...)? What history was obtained from this source @ -No Did you review nursing and triage notes (agree or disagree)? Why? @ -I reviewed and agree with nursing and triage notes Were old charts reviewed (outside hosp., previous admission, EMS record, old EKG, old radiological studies, urgent care reports/EKG's, half-way records)? Report findings @ -No old charts were reviewed Differential Diagnosis (chest pain, altered mental status, abdominal pain women, abdominal pain men, vaginal bleeding, weakness, fever, dyspnea, syncope, headache, dizziness, GI bleed, back pain, seizure, CVA, palpatations, mental health, musculoskeletal)? @Differential Chest Pain: Stable Angina, Unstable Angina, STEMI, NSTEMI Aortic Dissection, Pneumothorax, Musculoskeletal, Esophageal Spasm GERD, Cholecystitis, Pancreatitis, Zoster, this is not meant to be an all-inclusive list. EKG interpreted by me (3pts min.). @ -Sinus rhythm rate of 82, AZ interval 151, QRS duration 100, QTc 408, no ST segment elevation. X-rays interpreted by me (1pt min.). @ -[Chest x-ray without acute process, no focal pneumonia, no pneumothorax. CT interpreted by me (1pt min.). @ -None done U/S interpreted by me (1pt. min.). @ -None done What testing was considered but not performed or refused? (CT, X-rays, U/S, labs)? Why? @ -None What meds were considered but not given or refused? Why? @ -None Did you discuss the management of the patient with other professionals (professionals i.e. , PA, [employer], lab, RT, psych nurse, delinquency prevention social worker, clutch mechanic, teacher, equal opportunity officer, child welfare caseworker)? Give summary @ -No Was smoking cessation discussed for >3mins.? @ -No Was critical care preformed (if so, how long)? @ -No Were there social determinants of health that impacted care today? How? (Homelessness, low income, unemployed, alcoholism, drug addiction, trans portation, low edu. Level, literacy, decrease access to med. care, snf, rehab)? @ -No Was there de-escalation of care discussed even if they declined (Discuss DNR or withdrawal of care, Hospice)? DNR status @ -No What co-morbidities impacted this encounter? (DM, HTN, Smoking, COPD, CAD, Cancer, CVA, ARF, Chemo, Hep., AIDS, mental health diagnosis, sleep apnea, morbid obesity)? @ -Diabetes, hypertension, tobacco use Was patient admitted / discharged? Hospital course, mention meds given and ro lalo, prescriptions, significant lab abnormalities, going to OR and other pertinent info. @ -[58-year-old male presenting with cough and cold symptoms, chest congestion over the past 1 week to 10 days. Patient afebrile, well-appearing. He is a current smoker. He did develop a left-sided chest pain which is worse with cough. I did obtain EKG, laboratory testing, chest x-ray. Patient had a mini panfilo elevated D-dimer and there was consideration for CT angiography although the patient had a significantly higher D-dimer approximately [address] angiogram at that time. Manteno to be low risk and downtrending. Patient has a negative troponin. Chest x-ray is without acute process. Patient will be treated for bronchitis, COPD exacerbation. Return parameters discussed. Undiagnosed new problem with uncertain prognosis? @ -No Drug Therapy requiring intensive monitoring for toxicity (Heparin, Nitro, Insulin, Cardizem)? @ -No Were any procedures done? @ -No Diagnosis/symptom? @ -[COPD, atypical chest pain Acute, or Chronic, or Acute on Chronic? @Acute Uncomplicated (without systemic symptoms) or Complicated (systemic symptoms)? @ -Default Side effects of treatment? @ -No Exacerbation, Progression, or Severe Exacerbation? @ -No Poses a threat to life or bodily function? How? (Chest pain, [place], NC, pneumonia, PE, COPD, DKA, ARF, appy, cholecystitis, CVA, Diverticulitis, Homicidal, Suicidal, threat to staff... and all critical care pts) @ -Low risk at this time - Lab Data Result diagrams: 08/18/23 08:27 08/18/23 08:52 Lab Results 08/18/23 08/18/23 08/18/23 Range/Units 08:27 08:27 08:27 WBC 11.4 H (3.8-10.6) k/uL RBC 4.92 (4.30-5.90) m/uL Hgb 14.4 (13.0-17.5) gm/dL Hct 44.2 (39.0-53.0) % MCV 89.7 (80.0-100.0) fL MCH 29.3 (25.0-35.0) pg MCHC 32.6 (31.0-37.0) g/dL RDW 13.6 (11.5-15.5) % Plt Count 464 H (150-450) k/uL MPV 7.5 Neutrophils % 70 % Lymphocytes % 18 % Monocytes % 5 % Eosinophils % 3 % Basophils % 1 % Neutrophils # 7.9 H (1.3-7.7) k/uL Lymphocytes # 2.1 (1.0-4.8) k/uL Monocytes # 0.5 (0-1.0) k/uL Eosinophils # 0.4 (0-0.7) k/uL Basophils # 0.1 (0-0.2) k/uL PT 9.6 L (10.0-12.5) sec INR 0.8 (<1.2) APTT 26.1 (22.0-30.0) sec D-Dimer 0.71 H (<0.60) mg/L FEU Sodium (137-145) mmol/L Potassium (3.5-5.1) mmol/L Chloride (98-107) mmol/L Carbon Dioxide (22-30) mmol/L Anion Gap mmol/L BUN (9-20) mg/dL Creatinine (0.66-1.25) mg/dL Est GFR (CKD-EPI)AfAm (>60 ml/min/1.73 sqM) Est GFR (CKD-EPI)NonAf (>60 ml/min/1.73 sqM) Glucose (74-99) mg/dL Calcium (8.4-10.2) mg/dL Magnesium (1.6-2.3) mg/dL Total Bilirubin (0.2-1.3) mg/dL AST (17-59) U/L ALT (4-49) U/L Alkaline Phosphatase (38-126) U/L Troponin I (0.000-0.034) ng/mL Total Protein (6.3-8.2) g/dL Albumin (3.5-5.0) g/dL Influenza Type A (PCR) Not Detected (Not Detectd) Influenza Type B (PCR) Not Detected (Not Detectd) RSV (PCR) Not Detected (Not Detectd) SARS-CoV-2 (PCR) Not Detected (Not Detectd) 08/18/23 08/18/23 Range/Units 08:52 08:52 WBC (3.8-10.6) k/uL RBC (4.30-5.90) m/uL Hgb (13.0-17.5) gm/dL Hct (39.0-53.0) % MCV (80.0-100.0) fL MCH (25.0-35.0) pg MCHC (31.0-37.0) g/dL RDW (11.5-15.5) % Plt Count (150-450) k/uL MPV Neutrophils % % Lymphocytes % % Monocytes % % Eosinophils % % Basophils % % Neutrophils # (1.3-7.7) k/uL Lymphocytes # (1.0-4.8) k/uL Monocytes # (0-1.0) k/uL Eosinophils # (0-0.7) k/uL Basophils # (0-0.2) k/uL PT (10.0-12.5) sec INR (<1.2) APTT (22.0-30.0) sec D-Dimer (<0.60) mg/L FEU Sodium 138 (137-145) mmol/L Potassium 5.0 (3.5-5.1) mmol/L Chloride 101 (98-107) mmol/L Carbon Dioxide 25 (22-30) mmol/L Anion Gap 12 mmol/L BUN 27 H (9-20) mg/dL Creatinine 1.44 H (0.66-1.25) mg/dL Est GFR (CKD-EPI)AfAm 61 (>60 ml/min/1.73 sqM) Est GFR (CKD-EPI)NonAf 53 (>60 ml/min/1.73 sqM) Glucose 164 H (74-99) mg/dL Calcium 9.9 (8.4-10.2) mg/dL Magnesium 2.6 H (1.6-2.3) mg/dL Total Bilirubin 0.3 (0.2-1.3) mg/dL AST 25 (17-59) U/L ALT 25 (4-49) U/L Alkaline Phosphatase 141 H (38-126) U/L Troponin I <0.012 (0.000-0.034) ng/mL Total Protein 8.1 (6.3-8.2) g/dL Albumin 4.7 (3.5-5.0) g/dL Influenza Type A (PCR) (Not Detectd) Influenza Type B (PCR) (Not Detectd) RSV (PCR) (Not Detectd) SARS-CoV-2 (PCR) (Not Detectd) Disposition Clinical Impression: COPD (chronic obstructive pulmonary disease) Disposition: HOME SELF-CARE Condition: Fair Instructions (If sedation given, give patient instructions): COPD (Chronic Obstructive Pulmonary Disease) (ED) Prescriptions: predniSONE 50 mg PO DAILY #5 tab Albuterol Inhaler [Ventolin Hfa Inhaler] 1 - 2 puff INHALATION Q4HR PRN #1 each PRN Reason: Shortness Of Breath Azithromycin [Zithromax Z Pack] 1 tab PO DIRECTED #6 tab Is patient prescribed a controlled substance at d/c from ED?: No Referrals: Marlen Mobley MD [Primary Care Provider] - 1-2 days Time of Disposition: 10:05
[2023-08-18 09:25] LABS: ALT 25 U/L (4-49); AST 25 U/L (17-59); African American GFR (CKD) 61 (>60 ml/min/1.73 sqM); Albumin 4.7 g/dL (3.5-5.0); Alkaline Phosphatase 141 U/L (38-126); Anion Gap 12 mmol/L; Blood Urea Nitrogen 27 mg/dL (9-20); Calcium 9.9 mg/dL (8.4-10.2); Carbon Dioxide 25 mmol/L (22-30); Chloride 101 mmol/L (98-107); Glucose 164 mg/dL (74-99); Magnesium 2.6 mg/dL (1.6-2.3); Non-African American GFR(CKD) 53 (>60 ml/min/1.73 sqM); Sodium 138 mmol/L (137-145); Total Bilirubin 0.3 mg/dL (0.2-1.3); Total Protein 8.1 g/dL (6.3-8.2)
[2023-08-18] MEDS: DEXAMETHASONE SOD PHOSPHATE 10 MG/ML 1 ML VIAL IV STA (10:15)
[2023-08-18] MEDS: SODIUM CHLORIDE 0.9% 1,000 ML IV ONE (10:15)
[2023-08-18] MEDS: DEXAMETHASONE SOD PHOSPHATE 10 MG/ML 1 ML VIAL IM STA (10:21)
[2023-08-18 10:35] VITALS: BP 106/78; PULSE 82; RESP 20; TEMP 98.1
== END 2023-08-18 10:34 | disposition home or self-care (01) ==
LOC: EC 07:51
DX: J44.9 Chronic obstructive pulmonary disease, unspecified (principal); F17.290 Nicotine dependence, other tobacco product, uncomplicated; Z88.8 Allergy status to other drugs, medicaments and biological substances
CPT/HCPCS: 36415; 93005; 85379; 80053; 83735; 84484; 85025; 85610; 85730; 87636; 71046; 99285; 96372; J1100

== ENCOUNTER → 2023-09-24 | Outpatient (CLI) | payer MEDICARE ==
[2023-09-24 09:54] LABS: HCT 49.2 % (39.0-53.0); HGB 14.9 gm/dL (13.0-17.5); Hypochromasia Moderate; MCH 29.1 pg (25.0-35.0); MCHC 30.4 g/dL (31.0-37.0); Mean Platelet Volume 7.1; Platelet Count 330 k/uL (150-450); RBC 5.13 m/uL (4.30-5.90); WBC 8.7 k/uL (3.8-10.6)
[2023-09-24 10:02] LABS: MCV 95.9 fL (80.0-100.0)
[2023-09-24 10:30] LABS: Eosinophils # (M) 0.35 k/uL (0-0.7); Lymphocytes # (M) 2.87 k/uL (1.0-4.8); Monocytes # (M) 0.61 k/uL (0-1.0); Neutrophils # (M) 4.87 k/uL (1.3-7.7); Neutrophils % (M) 56 %; Nucleated Red Blood Cells 0 /100 WBC (0-0); Total Cells Counted 100
[2023-09-24 15:28] LABS: Amylase 61 U/L (23-121); BUN/Creat Ratio 20.69 Ratio (12.00-20.00); Blood Urea Nitrogen 26.9 mg/dL (9.0-27.0); Carbon Dioxide 19.3 mmol/L (21.6-31.8); Chloride 103 mmol/L (96-109); Chol/HDL Ratio 6.19 Ratio; Glucose 154 mg/dL (70-110); Iron 179 UG/DL (65-175); Lipase 46 U/L (14-60); Potassium 5.1 mmol/L (3.5-5.5); Sodium 137 mmol/L (135-145)
[2023-09-24 15:29] LABS: ALT 28 U/L (10-49); AST 22 U/L (14-35); Albumin 4.9 g/dL (3.8-4.9); Albumin/Globulin Ratio 1.53 Ratio (1.60-3.17); Alkaline Phosphatase 112 U/L (41-126); Globulin 3.2 g/dL (1.6-3.3); Total Bilirubin 0.4 mg/dL (0.3-1.2); Total Protein 8.1 g/dL (6.2-8.2)
[2023-09-24 19:43] LABS: Microalbumin Creatinine Ratio <17 mg/g Cr (0-30); Urine Creatinine 71.6 mg/dL (39.0-259.0)
== END | disposition home or self-care (01) ==
LOC: LABWHC1 08:17
PROVIDERS: ATTEND Family Medicine
DX: I10 Essential (primary) hypertension (principal); E11.9 Type 2 diabetes mellitus without complications; E78.5 Hyperlipidemia, unspecified; E66.9 Obesity, unspecified; D50.9 Iron deficiency anemia, unspecified
CPT/HCPCS: 36415; 80053; 80061; 82043; 82150; 82306; 82570; 82607; 82728; 82746; 83036; 83540; 83690; 83721; 84443; 85025

== ENCOUNTER 2023-12-29 12:13 | Emergency (ER) | payer MEDICARE, OTHER ==
--- NOTE | 2023-12-29 12:58 | ED ---
General Adult HPI - General Source: patient, RN notes reviewed Mode of arrival: wheelchair Limitations: no limitations <Dani Lyons - Last Filed: 12/29/23 20:58> <Misha Whiting - Last Filed: 12/30/23 01:26> - General Chief complaint: Abdominal Pain Stated complaint: Vomiting Time Seen by Provider: 12/29/23 12:14 - History of Present Illness Initial comments: Patient is a 58-year-old male present to the emergency department with concerns with vomiting and abdominal discomfort. Area of discomfort is epigastrium. Patient denies chest pain when questioned. Patient does have epigastric discomfort with several episodes of nausea vomiting that started yesterday. Patient does have history of similar episodes 3 times previously associated with pancreatitis. Patient is a former heavy drinker. (Dani Lyons) - Related Data Home Medications Medication Instructions Recorded Confirmed Lipase/Protease/Amylase [Cory Cheema 1 cap PO TID-W/MEALS 12/15/22 12/29/23 24,000 Unit Capsule] busPIRone HCL 15 mg PO BID 12/15/22 12/29/23 Baclofen 10 mg PO HS 12/29/23 12/29/23 Cyclobenzaprine [Flexeril] 10 mg PO TID 12/29/23 12/29/23 Dulaglutide [Trulicity] 3 mg SQ MO 12/29/23 12/29/23 Empagliflozin [Jardiance] 25 mg PO DAILY 12/29/23 12/29/23 Escitalopram [Lexapro] 20 mg PO DAILY 12/29/23 12/29/23 Ferrous Sulfate [Iron (65 MG 325 mg PO MOWEFR 12/29/23 12/29/23 Elemental)] Gabapentin 1,200 mg PO TID 12/29/23 12/29/23 Ibuprofen [Motrin] 800 mg PO Q8H PRN 12/29/23 12/29/23 Ketoconazole 2% Cream [Nizoral 2%] 1 applic TOPICAL DAILY 12/29/23 12/29/23 Lidocaine 5% Patch [Lidoderm] 3 patch TOPICAL DAILY 12/29/23 12/29/23 Losartan [Cozaar] 25 mg PO BID 12/29/23 12/29/23 Magnesium Oxide [Mag-Ox] 400 mg PO MOWEFR 12/29/23 12/29/23 Melatonin 10 mg PO HS 12/29/23 12/29/23 Pantoprazole Sodium [Protonix] 20 mg PO BID 12/29/23 12/29/23 Pregabalin [Lyrica] 200 mg PO HS 12/29/23 12/29/23 Propranolol [Inderal] 20 mg PO DAILY 12/29/23 12/29/23 QUEtiapine [SEROquel] 100 mg PO HS 12/29/23 12/29/23 QUEtiapine [SEROquel] 100 mg PO HS PRN 12/29/23 12/29/23 hydrOXYzine pamoate [Vistaril] 50 mg PO TID 12/29/23 12/29/23 Previous Rx's Medication Instructions Recorded Pravastatin Sodium [Pravachol] 40 mg PO HS 14 Days #14 tab 11/01/22 glipiZIDE [Glucotrol] 20 mg PO BID 14 Days #56 tab 11/01/22 metFORMIN HCL [Glucophage] 1,000 mg PO BID 14 Days #28 tab 11/01/22 Ciprofloxacin HCl [Cipro] 500 mg PO BID 7 Days #14 tab 12/29/23 metroNIDAZOLE [Flagyl] 500 mg PO TID 7 Days #21 tab 12/29/23 Allergies Allergy/AdvReac Type Severity Reaction Status Date / Time thimerosal Allergy Severe Rash/Hives/throat Verified 12/29/23 19:16 swelling neomycin Allergy Rash/Hives Verified 12/29/23 19:16 Review of Systems ROS Other: All systems not noted in ROS Statement are negative. Constitutional: Denies: fever Eyes: Denies: eye pain ENT: Denies: ear pain Respiratory: Denies: cough Cardiovascular: Reports: as per HPI Gastrointestinal: Reports: as per HPI, abdominal pain, nausea, vomiting Genitourinary: Denies: dysuria Musculoskeletal: Denies: back pain <Dani Lyons - Last Filed: 12/29/23 20:58> ROS Other: All systems not noted in ROS Statement are negative. <Misha Whiting - Last Filed: 12/30/23 01:26> ROS Statement: Those systems with pertinent positive or pertinent negative responses have been documented in the HPI. Past Medical History Past Medical History: Diabetes Mellitus, GERD/Reflux, Hyperlipidemia, Hypertension, Liver Disease, Renal Disease, Sleep Apnea/CPAP/BIPAP Additional Past Medical History / Comment(s): Neuropathy, back pain, no CPAP use, Cirrhosis, "kidneys don't always work right." , pancreatitis History of Any Multi-Drug Resistant Organisms: None Reported Past Surgical History: Heart Catheterization, Joint Replacement, Orthopedic Surgery Additional Past Surgical History / Comment(s): Bilateral cataracts removed, bilateral hip replacements, right heal surgery with screws/plates/pins placed, L2-L4 cage infusion, Past Anesthesia/Blood Transfusion Reactions: No Reported Reaction Past Psychological History: Anxiety, Bipolar, Depression, PTSD, Schizoaffective Disorder Smoking Status: Current every day smoker, Vaper Past Alcohol Use History: Abuse, Daily, Heavy Past Drug Use History: None Reported - Past Family History Father Family Medical History: Myocardial Infarction (SD) Additional Family Medical History / Comment(s): SD in mid 30's. Mother Family Medical History: Dementia family Additional Family Medical History / Comment(s): Anxiety. <Dani Lyons Filed: 12/29/23 20:58> General Exam Limitations: no limitations General appearance: alert, in no apparent distress Head exam: Present: normocephalic Eye exam: Present: normal appearance Neck exam: Present: normal inspection Respiratory exam: Present: normal lung sounds bilaterally. Absent: chest wall tenderness Cardiovascular Exam: Present: regular rate, normal rhythm, normal heart sounds Expanded Peripheral pulses: 2+: Radial (R), Radial (L), Posterior Tibialis (R), Posterior Tibialis (L) GI/Abdominal exam: Present: soft, tenderness (Mild to moderate epigastric tenderness to palpation), normal bowel sounds. Absent: distended, guarding, rebound, rigid, pulsatile mass Extremities exam: Present: normal inspection. Absent: pedal edema, calf tenderness Neurological exam: Present: alert Psychiatric exam: Present: normal affect, normal mood Skin exam: Present: normal color <Dani Lyons Filed: 12/29/23 20:58> Course Vital Signs 12/29/23 12/29/23 12:14 20:57 Temperature 97.4 F L Pulse Rate 114 H 99 Respiratory 18 17 Rate Blood Pressure 98/72 120/76 O2 Sat by Pulse 100 98 Oximetry EKG Findings - EKG Results: EKG: interpreted by ERMD, sinus rhythm, normal axis, normal QRS, normal ST/T EKG shows: tachycardia <Dani Lyons Filed: 12/29/23 20:58> Medical Decision Making - Lab Data Result diagrams: 12/29/23 14:19 12/29/23 14:19 <Dani Lyons - Last Filed: 12/29/23 20:58> - Lab Data Result diagrams: 12/29/23 14:19 12/29/23 14:19 <Misha Whiting - Last Filed: 12/30/23 01:26> - Medical Decision Making Was pt. sent in by a medical professional or institution (, PA, [facility]ER, urgent care, hospital, or skilled nursing...) When possible be specific @ -[No] Did you speak to anyone other than the patient for history (EMS, parent, family, police, friend...)? What history was obtained from this source @ -[No] Did you review nursing and triage notes (agree or disagree)? Why? @ -[I reviewed and agree with nursing and triage notes] Were old charts reviewed (outside hosp., previous admission, EMS record, old EKG, old radiological studies, urgent care reports/EKG's, skilled nursing records)? Report findings @ -Previous imaging reviewed Differential Diagnosis (chest pain, altered mental status, abdominal pain women, abdominal pain men, vaginal bleeding, weakness, fever, dyspnea, syncope, headache, dizziness, GI bleed, back pain, seizure, CVA, palpatations, mental health, musculoskeletal)? @ -Differential Abdominal Pain Men: Appendicitis, cholecystitis, diverticulosis, ischemic bowel, pancreatitis, hepatitis, UTI, gastroenteritis, AAA, incarcerated hernia, bowel obstruction, constipation, inflammatory bowel, hepatitis, peptic ulcer disease, splenic infarction, perforated viscus, testicular torsion, this is not meant to be an all-inclusive list EKG interpreted by me (3pts min.). @ -[As above] X-rays interpreted by me (1pt min.). @ -[None done] CT interpreted by me (1pt min.). @ -CT scan shows some possible gallbladder/ductal dilation U/S interpreted by me (1pt. min.). @ -[None done] What testing was considered but not performed or refused? (CT, X-rays, U/S, labs)? Why? @ -[None] What meds were considered but not given or refused? Why? @ -[None] Did you discuss the management of the patient with other professionals (professionals i.e. DrParish, PA, [employer]BER HEWER, lab, RT, psych nurse, high school social studies tutor, information technology advisor, teacher, bank operations officer, immigration case manager)? Give summary @ -[No] Was smoking cessation discussed for >3mins.? @ -[No] Was critical care preformed (if so, how long)? @ -[No] Were there social determinants of health that impacted care today? How? (Homelessness, low income, unemployed, alcoholism, drug addiction, transportation, low edu. Level, literacy, decrease access to med. care, assisted, rehab)? @ -[No] Was there de-escalation of care discussed even if they declined (Discuss DNR or withdrawal of care, Hospice)? DNR status @ -[No] What co-morbidities impacted this encounter? (DM, HTN, Smoking, COPD, CAD, Cancer, CVA, ARF, Chemo, Hep., AIDS, mental health diagnosis, sleep apnea, morbid obesity)? @ -History of pancreatitis Was patient admitted / discharged? Hospital course, mention meds given and route, prescriptions, significant lab abnormalities, going to OR and other pertinent info. @ -Presents with abdominal/epigastric pain. CT scan with possible gallbladder/ductal disease. Ultrasound ordered. Case will be endorsed to Dr. Whiting at [facility]. (Dani Lyons) Patient signed out to me pending results of gallbladder ultrasound. Briefly, patient presented already complaining of epigastric and right upper quadrant abdominal pain. He was concern for possible pancreatitis as he does have a history of it. Also had nausea and vomiting. Workup so far was remarkable for CKD, with normal hepatobiliary labs. CT imaging interpreted by myself revealed findings concerning for distention of the gallbladder and biliary tree without calcified stones present. No other obvious finding. Gallbladder ultrasound was obtained pending. Patient received Dilaudid for pain. Gallbladder ultrasound returned remarkable for findings dilation of the CBD as well as pancreatic ducts. Consideration of further imaging such as ERCP or MRCP may be warranted. Patient also had a hydropic gallbladder with pericholecystic fluid and in the correct clinical setting could be called in for acute cholecystitis. On reevaluation, patient is still having pain. It is slightly improved. I discussed the results with patient. As he is still symptomatic, I did want to empirically treat him for acute cholecystitis and likely transfer him due to the findings of the dilated CBD as well as pancreatic duct as we do not have GI services available at our facility. After a lengthy discussion, patient states he will return if symptoms do not improve and we will attempt follow-up outpatient. States he cannot be admitted or transferred at this time as he needs to "handle a few things." This includes finding care for 2 of his young kittens. I discussed at length with the patient and informed him this would be leaving AMA. He expressed understanding. He understands my desire for GI evaluation and potential ERCP or MRCP. He does not want this at this time. The patient was apprised of the potential risks of leaving the hospital AGAINST MEDICAL ADVICE, including serious complications, permanent disability, and . At the time of my interview the patient, the patient was alert, oriented, and capable. Patient signed AMA form, which was witnessed and signed by nursing staff, and placed in patient's chart. I urged the patient to return to the hospital as soon as possible to complete evaluation and treatment. I did empirically treat the patient and initiate oral antibiotics at least to cover for cholecystitis empirically. Recommended return as soon as possible if symptoms worsen and persist. Also given follow-up with GI. He expressed understanding. Patient left AGAINST MEDICAL ADVICE. Diagnosis/symptom? @ -Abdominal pain, concerning findings for cholecystitis Acute, or Chronic, or Acute on Chronic? @ -Acute Uncomplicated (without systemic symptoms) or Complicated (systemic symptoms)? @ -Complicated Side effects of treatment? @ -None Exacerbation, Progression, or Severe Exacerbation] @ -No Poses a threat to life or bodily function? @ -Yes (Misha Whiting) - Lab Data Lab Results 12/29/23 12/29/23 12/29/23 Range/Units 14:19 14:19 14:19 WBC 7.8 (3.8-10.6) k/uL RBC 4.27 L (4.30-5.90) m/uL Hgb 12.8 L (13.0-17.5) gm/dL Hct 38.2 L (39.0-53.0) % MCV 89.5 (80.0-100.0) fL MCH 29.9 (25.0-35.0) pg MCHC 33.4 (31.0-37.0) g/dL RDW 14.0 (11.5-15.5) % Plt Count 402 (150-450) k/uL MPV 6.9 Neutrophils % 78 % Lymphocytes % 8 % Monocytes % 8 % Eosinophils % 2 % Basophils % 0 % Neutrophils # 6.1 (1.3-7.7) k/uL Lymphocytes # 0.7 L (1.0-4.8) k/uL Monocytes # 0.6 (0-1.0) k/uL Eosinophils # 0.2 (0-0.7) k/uL Basophils # 0.0 (0-0.2) k/uL PT 10.3 (10.0-12.5) sec INR 0.9 (<1.2) APTT 23.5 (22.0-30.0) sec Sodium 133 L (137-145) mmol/L Potassium 4.0 (3.5-5.1) mmol/L Chloride 97 L (98-107) mmol/L Carbon Dioxide 23 (22-30) mmol/L Anion Gap 13 mmol/L BUN 34 H (9-20) mg/dL Creatinine 1.54 H (0.66-1.25) mg/dL Est GFR (CKD-EPI)AfAm 56 (>60 ml/min/1.73 sqM) Est GFR (CKD-EPI)NonAf 49 (>60 ml/min/1.73 sqM) Glucose 120 H (74-99) mg/dL POC Glucose (mg/dL) (70-110) mg/dL POC Glu Block Paver ID Calcium 9.3 (8.4-10.2) mg/dL Total Bilirubin 0.8 (0.2-1.3) mg/dL AST 35 (17-59) U/L ALT 32 (4-49) U/L Alkaline Phosphatase 80 (38-126) U/L Troponin I (0.000-0.034) ng/mL Total Protein 7.5 (6.3-8.2) g/dL Albumin 4.8 (3.5-5.0) g/dL Amylase 73 (30-110) U/L Lipase 210 (23-300) U/L 12/29/23 12/29/23 Range/Units 14:19 15:10 WBC (3.8-10.6) k/uL RBC (4.30-5.90) m/uL Hgb (13.0-17.5) gm/dL Hct (39.0-53.0) % MCV (80.0-100.0) fL MCH (25.0-35.0) pg MCHC (31.0-37.0) g/dL RDW (11.5-15.5) % Plt Count (150-450) k/uL MPV Neutrophils % % Lymphocytes % % Monocytes % % Eosinophils % % Basophils % % Neutrophils # (1.3-7.7) k/uL Lymphocytes # (1.0-4.8) k/uL Monocytes # (0-1.0) k/uL Eosinophils # (0-0.7) k/uL Basophils # (0-0.2) k/uL PT (10.0-12.5) sec INR (<1.2) APTT (22.0-30.0) sec Sodium (137-145) mmol/L Potassium (3.5-5.1) mmol/L Chloride (98-107) mmol/L Carbon Dioxide (22-30) mmol/L Anion Gap mmol/L BUN (9-20) mg/dL Creatinine (0.66-1.25) mg/dL Est GFR (CKD-EPI)AfAm (>60 ml/min/1.73 sqM) Est GFR (CKD-EPI)NonAf (>60 ml/min/1.73 sqM) Glucose (74-99) mg/dL POC Glucose (mg/dL) 119 H (70-110) mg/dL POC Glu Block Paver ID Alpa Ordonez Calcium (8.4-10.2) mg/dL Total Bilirubin (0.2-1.3) mg/dL AST (17-59) U/L ALT (4-49) U/L Alkaline Phosphatase (38-126) U/L Troponin I <0.012 (0.000-0.034) ng/mL Total Protein (6.3-8.2) g/dL Albumin (3.5-5.0) g/dL Amylase (30-110) U/L Lipase (23-300) U/L Disposition <Dani Lyons - Last Filed: 12/29/23 20:58> Time of Disposition: 10:37 <Misha Whiting - Last Filed: 12/30/23 01:26> Clinical Impression: Abdominal pain, Cholecystitis Disposition: LEFT AGAINST MEDICAL ADVICE Prescriptions: Ciprofloxacin HCl [Cipro] 500 mg PO BID 7 Days #14 tab metroNIDAZOLE [Flagyl] 500 mg PO TID 7 Days #21 tab Referrals: Marlen Mobley MD [Primary Care Provider] - 1-2 days Beti Sheppard MD [STAFF PHYSICIAN] - 1-2 days Joseluis Chino DO [Doctor of Osteopathic Medicine] - 1-2 days
[2023-12-29 15:12] LABS: Glucose,Whole Blood 119 mg/dL (70-110)
[2023-12-29] MEDS: ONDANSETRON 4 MG/2 ML VIAL IVP STA (16:18)
[2023-12-29] MEDS: FAMOTIDINE 20 MG/2 ML VIAL IV STA (16:19)
[2023-12-29] MEDS: HYDROmorphone 1 MG/ML 1 ML SYRINGE IVP STA (16:19)
[2023-12-29] MEDS: SODIUM CHLORIDE 0.9% 1,000 ML IV STA ×2 (16:21→19:46)
[2023-12-29 16:22] LABS: Basophils % (A) 0 %; Eosinophils # (A) 0.2 k/uL (0-0.7); Eosinophils % (A) 2 %; HCT 38.2 % (39.0-53.0); HGB 12.8 gm/dL (13.0-17.5); Lymphocytes # (A) 0.7 k/uL (1.0-4.8); Lymphocytes % (A) 8 %; MCH 29.9 pg (25.0-35.0); MCHC 33.4 g/dL (31.0-37.0); MCV 89.5 fL (80.0-100.0); Mean Platelet Volume 6.9; Monocytes # (A) 0.6 k/uL (0-1.0); Monocytes % (A) 8 %; Neutrophils # (A) 6.1 k/uL (1.3-7.7); Neutrophils % (A) 78 %; Platelet Count 402 k/uL (150-450); RBC 4.27 m/uL (4.30-5.90); WBC 7.8 k/uL (3.8-10.6)
[2023-12-29 16:31] LABS: INR 0.9 (<1.2); Partial Thromboplastin Time 23.5 sec (22.0-30.0); Prothrombin Time 10.3 sec (10.0-12.5)
[2023-12-29 16:35] LABS: ALT 32 U/L (4-49); AST 35 U/L (17-59); African American GFR (CKD) 56 (>60 ml/min/1.73 sqM); Albumin 4.8 g/dL (3.5-5.0); Alkaline Phosphatase 80 U/L (38-126); Amylase 73 U/L (30-110); Anion Gap 13 mmol/L; Blood Urea Nitrogen 34 mg/dL (9-20); Calcium 9.3 mg/dL (8.4-10.2); Carbon Dioxide 23 mmol/L (22-30); Chloride 97 mmol/L (98-107); Glucose 120 mg/dL (74-99); Lipase 210 U/L (23-300); Non-African American GFR(CKD) 49 (>60 ml/min/1.73 sqM); Sodium 133 mmol/L (137-145); Total Bilirubin 0.8 mg/dL (0.2-1.3); Total Protein 7.5 g/dL (6.3-8.2)
--- NOTE | 2023-12-29 19:58 | CT ---
EXAMINATION TYPE: CT abdomen pelvis wo con CT DLP: 671.9 mGycm, Automated exposure control for dose reduction was used. DATE OF EXAM: 12/29/2023 7:14 PM COMPARISON: None. CLINICAL INDICATION:Male, 58 years old with history of abp; abdominal pain, hx of pancreatitis TECHNIQUE: Axial CT of the abdomen and pelvis. Sagittal and coronal reformats were created on a [employer] workstation. Contrast used: mL of , (none if empty) Oral contrast used: without Oral Contrast (none if empty) FINDINGS: Exam is limited without contrast. LOWER CHEST: Mild bibasilar scarring and/or subsegmental atelectasis. No consolidation or effusion. N ormal heart size. Relatively heavy mitral valve calcifications. Mild coronary artery calcifications. ABDOMEN LIVER: Eventration along the right hemidiaphragm. Grossly unremarkable liver parenchyma. GALLBLADDER AND BILE DUCTS: The gallbladder appears moderately distended without evidence of perichol ecystic inflammation or calcified gallstones. Biliary tree appears moderately dilated, CBD is approxi mately 11 mm. No calcified choledocholithiasis is suggested. PANCREAS: Unremarkable. SPLEEN: Unremarkable. ADRENAL GLANDS: Mildly thickened, may be seen with hyperplasia.. KIDNEYS AND URETERS: No evidence of renal calculi or contour deformity. No hydronephrosis. Mildly pro minent left extrarenal pelvis. PELVIS Limited assessment by beam hardening artifact from bilateral hip prostheses. BLADDER: Grossly unremarkable REPRODUCTIVE: Organs are not seen ABDOMEN & PELVIS STOMACH AND BOWEL: Stomach and small bowel are nondistended, no evidence of obstruction. The append ix appears within normal limits. There is some stool and gas seen throughout the colon with no focal acute abnormality shown. Colonic diverticula are present which do not appear inflamed. PERITONEUM/RETROPERITONEUM: No evidence of pneumoperitoneum or free fluid. VASCULATURE: Mild atherosclerotic calcifications of the abdominal aorta and branches. No evidence of aortic aneurysm. LYMPH NODES: No enlarged nodes by CT size criteria. SOFT TISSUE/ABDOMINAL WALL: Small fat-containing umbilical hernia. MUSCULOSKELETAL: No acute osseous abnormalities. Mild/moderate disc degeneration changes are present throughout the thoracolumbar spine. Posterior fusion changes with accompanying laminectomies and int erbody disc prostheses from L3 to S1. Posterior fusion changes also extend to S2 and bilateral fixati on screws traverse the SI joints and terminate in the iliac bones. Bilateral total hip arthroplasties are present. Hardware appears grossly intact. IMPRESSION: 1. Limited unenhanced study shows no acute inflammatory or obstructive process in the abdomen or pel vis. 2. Moderate distention of the gallbladder and biliary tree, without calcified stones evident. Correl ate clinically with LFTs. 3. Colonic diverticula are present, without signs of inflammation to suggest diverticulitis.
[2023-12-29] MEDS: HYDROmorphone 1 MG/ML 1 ML SYRINGE IM STA (20:56)
--- NOTE | 2023-12-29 22:16 | US ---
EXAMINATION TYPE: US gallbladder DATE OF EXAM: 12/29/2023 COMPARISON: Same day CT abdomen CLINICAL INDICATION: Male, 58 years old with history of pain; Vomiting, pain TECHNIQUE: Multiple sonographic images of the right upper quadrant are obtained. FINDINGS: EXAM MEASUREMENTS: Liver Length: 15.1 cm Gallbladder Wall: 0.3 cm CBD: 1.2 cm Right Kidney: 10.0 x 5.2 x 4.3 cm Pancreas: Tail obscured by overlying bowel gas. duct = 0.6cm Liver: attenuating, heterogeneous Gallbladder: hydropic. pericholecystic fluid Evidence for sonographic Lunsford's sign: no CBD: dilated Right Kidney: no evidence of hydronephrosis IMPRESSION: 1. Dilated CBD and pancreatic duct, of uncertain etiology or significance. Consider MRCP if clinical ly warranted. 2. Hydropic gallbladder with pericholecystic fluid. Findings are somewhat equivocal, but early acute cholecystitis is not excluded. 3. Heterogeneously coarsened hepatic parenchyma suggestive of diffuse hepatocellular disease, common ly steatosis.
[2023-12-29] MEDS: metroNIDAZOLE 500 MG TAB PO STA (22:56)
[2023-12-29] MEDS: ONDANSETRON 4 MG ODT STARTER PACK 2 TAB BTL PO STA (22:56)
[2023-12-29] MEDS: CIPROFLOXACIN HCL 500 MG TAB PO STA (22:57)
[2023-12-30 02:24] VITALS: BP 128/74; PULSE 101; RESP 18; TEMP 97.6
== END 2023-12-30 00:03 | disposition left against medical advice (07) ==
LOC: EC 12:13
CPT/HCPCS: 36415; 74176; 76705; 80053; 82150; 83690; 84484; 85025; 85610; 85730; 93005; 96361; 96372; 96374; 96375; 99284

== ENCOUNTER 2024-01-15 10:00 | Day surgery (SDC) | payer MEDICARE, OTHER ==
[~2024-01-15 10:00] MED LIST changes: -DEXAMETHASONE SOD PHOSPHATE 4 MG/ML 1 ML VIAL IV ONE; -HYDROmorphone 0.5 MG/0.5 ML SYRINGE IVP PRN; +LACTATED RINGERS 1,000 ML BAG ONE; -LIDOCAINE 1% (10MG/ML) FOR IV START INTRADERMA PRN; -ONDANSETRON 4 MG/2 ML VIAL IVP ONE; +PROPOFOL 10 MG/ML 20 ML VIAL IV ONE
--- NOTE | 2024-01-18 15:56 | PCN ---
PROCEDURE NOTE REQUESTING PHYSICIAN: Marlen Sher NP BRIEF HISTORY: The patient is a 58-year-old pleasant white male scheduled for an elective colonoscopy as a part of screening for colorectal neoplasia. PROCEDURE PERFORMED: Colonoscopy with biopsy. PREOPERATIVE DIAGNOSIS: Screening for colon cancer. ANESTHESIA: IV sedation per Anesthesia. DESCRIPTION OF PROCEDURE: After informed consent was obtained from the patient, he was brought into the endoscopy unit. IV conscious sedation was administered by Anesthesia under continuous monitoring. Initial digital rectal examination was normal. The Olympus CF-190 videocolonoscope was then inserted into the rectum, gradually advanced into the cecum. Careful examination was performed, and the scope was gradually being withdrawn. The ileocecal valve and the appendiceal orifice were visualized and appeared normal. The prep was fair. Thorough irrigation was performed. Mucosa of the cecum, ascending colon, and transverse colon appeared normal. In the descending colon, there was a 6 mm flat polyp that was removed by cold biopsy. There was scattered sigmoid diverticulosis seen. Rectum appeared normal. Retroflexion was performed in the rectum. No lesions were noted and the patient tolerated the procedure well. IMPRESSION: 1. Scattered sigmoid diverticulosis. 2. 6 mm flat descending colon polyp, status post removal by cold biopsy. RECOMMENDATIONS: Findings of this examination were discussed with the patient as well as his family. He was advised to follow up with the biopsy results and if the biopsy reveals adenoma, he can have a repeat colonoscopy in 5 years. MMODL / IJN: [id number] /
== END 2024-01-15 10:58 ==
LOC: ORWHC2ENDO 10:00
PROVIDERS: ATTEND Internal Medicine Gastroenterology
DX: Z12.11 Encounter for screening for malignant neoplasm of colon (principal); D12.4 Benign neoplasm of descending colon; K57.30 Diverticulosis of large intestine without perforation or abscess without bleeding; I12.9 Hypertensive chronic kidney disease with stage 1 through stage 4 chronic kidney disease, or unspecified chronic kidney disease; N18.9 Chronic kidney disease, unspecified; E11.22 Type 2 diabetes mellitus with diabetic chronic kidney disease; K21.9 Gastro-esophageal reflux disease without esophagitis; Z79.84 Long term (current) use of oral hypoglycemic drugs; Z79.899 Other long term (current) drug therapy
CPT/HCPCS: 45380; 88305

== ENCOUNTER 2024-02-05 07:49 | Day surgery (SDC) | payer MEDICARE, OTHER ==
[2024-02-05] MEDS: diazePAM 5 MG TAB PO STA (08:55)
[2024-02-05 08:57] VITALS: TEMP 98.8
[2024-02-05 09:53] VITALS: RESP 16
--- NOTE | 2024-02-05 11:27 | CT ---
EXAMINATION TYPE: CT lumbar spine w con CT DLP: 1000.30 mGycm, Automated exposure control for dose reduction was used. DATE OF EXAM: 02/05/2024 10:58 AM COMPARISON: Lumbar spine radiograph 01/24/2024, CT abdomen and pelvis 12/29/2023, CT lumbar spine 11/03/19. CLINICAL INDICATION:Male, 59 years old with history of M54.10 radiculopathy; PHH, radiculopathy. POST MYELOGRAM TECHNIQUE: Multiple axial images were obtained from the midportion of T11 through the sacroiliac carly nts after fluoroscopic myelogram was performed. Soft tissue and bone windows in coronal and sagittal planes were obtained and reviewed. Contrast used:12cc mL of Isovue M200 Oral contrast used: none. FINDINGS: There are 5 lumbar type vertebra redemonstrated. There are posterior interpedicular rods and screws r edemonstrated running from L3 through S1 levels bilaterally. There is persistent additional fixating screws in the bilateral sacroiliac joints. Partial visualization of bilateral hip arthroplasty change s. No acute fracture identified. Mild dextrocurvature of the thoracolumbar spine. Stable slight grade 1 anterolisthesis of L3 on L4 and grade 1 retrolisthesis L4 on L5. Hardware is stable with stable al ignment. Posterior decompression changes with laminectomy defects and spinous process resection in the mid to lower lumbar spine is redemonstrated. Persistent artificial disc material L3-L4 through L5-S1 levels is redemonstrated. Vertebral body heights and disc space heights are maintained above the L3 level. No significant centr al canal stenosis or neuroforaminal stenosis from visualized T12-L3. There is left paracentral mild e ffacement of the anterior thecal sac at the mid L3 vertebral body level (series 3, image 39). Artifac t from metallic hardware makes evaluation slightly suboptimal at levels of surgical change. Broad-bas ed disc bulge at L3-L4 with mild effacement of the anterior thecal sac. Mild bilateral neural foramin al narrowing. No significant central canal stenosis below the L4 level. No gross evidence of signific ant neuroforaminal stenosis below the L4 level. Sigmoid diverticulosis. IMPRESSION: 1. No evidence for spinal fracture. 2. Stable postsurgical changes redemonstrated with stable alignment. 3. Mild central canal stenosis at L3-L4 secondary to disc bulge with mild bilateral neural foraminal stenosis. Left paracentral mild effacement of the anterior thecal sac at the mid L3 vertebral body le rubi. Could represent disc sequestration fragment versus other etiologies. No other significant centra l canal or neural foraminal stenosis identified. Consider further evaluation with MRI lumbar spine.
--- NOTE | 2024-02-05 12:42 | FL ---
EXAMINATION TYPE: FL myelogram lumbosacral DATE: 02/05/2024 CLINICAL HISTORY: 5-year-old male N5 4.10, radiculopathy, prior surgery 17 months ago. COMPLICATIONS: None SEDATION: By radiology nursing. The patient and the patient's vital signs were monitored by qualified [facility] radiology personnel. TECHNIQUE: The procedure and potential risks were explained to patient and an informed consent was obtained with teach back. Site and side was verified. A time out was performed. The patient was placed prone on the fluoroscopy table and the L3 level was localized and the skin was marked and was prepped and draped in the usual sterile fashion. Extensive L3 through pelvic posterio r and interbody fusion with corresponding laminectomies. Lidocaine was used for local anesthesia. Utilizing fluoroscopic guidance a 22-gauge spinal needle was placed through the skin and into the subarachnoid space. After visualization of CSF, total of 12 mL Isovue-M 200 contrast material is administered into the in trathecal space. The table was manipulated to promote passage of contrast along to the lower and upper levels of the l umbar spine. The patient tolerated the procedure well and was sent to the CT suite in satisfactory condition. The estimated blood loss was minimal. The patient's condition was unchanged following the procedure. Fluoroscopy time: 37 Total images: 4. Total DAP: 15 mGycm2 IMPRESSION: Successful lumbar injection for CT myelogram. L3 through pelvic posterior and interbody fusion with c orresponding laminectomies.
[2024-02-05 15:07] VITALS: BP 95/62; PULSE 95
== END 2024-02-05 14:05 | disposition home or self-care (01) ==
LOC: RADPROMAIN 07:49
PROVIDERS: ATTEND Orthopaedic Surgery
DX: M48.061 Spinal stenosis, lumbar region without neurogenic claudication (principal); M51.16 Intervertebral disc disorders with radiculopathy, lumbar region
CPT/HCPCS: 62304; 72132

== ENCOUNTER → 2024-02-19 | Outpatient (CLI) | payer MEDICARE ==
--- NOTE | 2024-02-19 10:08 | MR ---
MR MRCP INDICATION: Patient age:Male; 59 years old; Reason for study: R93.2 ABN IMAGING OF LIVER AND BILIARY TRACT; [facility]. COMPARISON: CT abdomen and pelvis 12/29/2023, gallbladder ultrasound 12/29/2023, CTA thoracoabdominal p kathleen 02/15/2021. TECHNIQUE: Multi planar, T2-weighted imaging with and without fat saturation and chemical shift imag ing was performed of the abdomen. Then, heavily T2 weighted imaging was utilized in order to study th e biliary system. Maximum intensity projection images were reconstructed from the original data of t he biliary tree. No Gadolinium given. FINDINGS: Motion degraded examination. MRCP: The intrahepatic ducts have a normal appearance. The common bile duct at the level of the [place] creatic head measures 9 mm in size. Previously measured [address] in 2020. The common hepatic duct measures 9 mm in size. The pancreatic duct is dilated measuring 6 mm in size. Previously measured [address] 2020. There is smooth tapering of the pancreatic and common bile duct at the pancreatic head . No filling defects identified. The gallbladder appears unremarkable. No filling defects. No wall thickening. Abdomen: The spleen, adrenal glands, kidneys, and pancreas have a normal noncontrast appearance. Subc entimeter thin-walled right inferior hepatic lobe T2 hyperintense cyst. Scattered distal colonic dive rticulosis. Susceptibility artifact from lumbar fusion hardware demonstrated. IMPRESSION: Extrahepatic biliary duct dilatation and main pancreatic ductal dilatation with smooth tapering. Over all stable when compared to prior CT 2020. No filling defects notified. Correlate with bili labs. Can not exclude ampullary malignancy or stricture. Consider further evaluation with ERCP. [facility], , 02/19/2024 10:06 AM
== END | disposition home or self-care (01) ==
LOC: RADMRIMAIN 05:52
PROVIDERS: ATTEND Internal Medicine Gastroenterology
DX: R93.2 Abnormal findings on diagnostic imaging of liver and biliary tract (principal)
CPT/HCPCS: 74181

== ENCOUNTER 2024-03-05 11:09 | Observation (INO) | payer MEDICARE ==
--- NOTE | 2024-03-05 11:39 | ED ---
General Adult HPI - General Chief complaint: Altered Mental Status Stated complaint: AMS Time Seen by Provider: 03/05/24 11:15 Source: patient, EMS, RN notes reviewed, old records reviewed Mode of arrival: ambulatory - History of Present Illness Initial comments: This is a 59-year-old male who presents to the emergency department who is brought in by police because he was altered. [place] [facility] [place] just underwear and her shirt and no shoes. Patient himself does not know why he was there or how he got there. Patient is altered he is only oriented x 1 maybe 2 and patient has no complaints at this time. Patient denies fever chills patient has vomiting or diarrhea patient denies chest pain or abdominal pain patient has back pain patient has any trauma patient Nuys any drinking patient denies any drug use - Related Data Home Medications Medication Instructions Recorded Confirmed Lipase/Protease/Amylase [Cory Cheema 1 cap PO TID-W/MEALS 12/15/22 02/05/24 24,000 Unit Capsule] Baclofen 10 mg PO HS 12/29/23 02/05/24 Cyclobenzaprine [Flexeril] 10 mg PO TID 12/29/23 02/05/24 Dulaglutide [Trulicity] 3 mg SQ WEEKLY 12/29/23 02/05/24 Empagliflozin [Jardiance] 25 mg PO DAILY 12/29/23 02/05/24 Escitalopram [Lexapro] 20 mg PO DAILY 12/29/23 02/05/24 Ferrous Sulfate [Iron (65 MG 325 mg PO MOWEFR 12/29/23 02/05/24 Elemental)] Gabapentin 1,200 mg PO TID 12/29/23 02/05/24 Ketoconazole 2% Cream [Nizoral 2%] 1 applic TOPICAL DAILY 12/29/23 02/05/24 Lidocaine 5% Patch [Lidoderm] 3 patch TOPICAL DAILY 12/29/23 02/05/24 Losartan [Cozaar] 25 mg PO BID 12/29/23 02/05/24 Magnesium Oxide [Mag-Ox] 400 mg PO MOWEFR 12/29/23 02/05/24 Melatonin 10 mg PO HS 12/29/23 02/05/24 Pantoprazole Sodium [Protonix] 20 mg PO BID 12/29/23 02/05/24 Propranolol [Inderal] 20 mg PO DAILY 12/29/23 02/05/24 QUEtiapine [SEROquel] 200 mg PO HS 12/29/23 02/05/24 hydrOXYzine pamoate [Vistaril] 50 mg PO TID 12/29/23 02/05/24 Celecoxib [CeleBREX] 200 mg PO BID 01/25/24 02/05/24 modafiniL [Provigil] 200 mg PO DAILY 01/25/24 02/05/24 Previous Rx's Medication Instructions Recorded Pravastatin Sodium [Pravachol] 40 mg PO HS 14 Days #14 tab 11/01/22 glipiZIDE [Glucotrol] 20 mg PO BID 14 Days #56 tab 11/01/22 metFORMIN HCL [Glucophage] 1,000 mg PO BID 14 Days #28 tab 11/01/22 Allergies Allergy/AdvReac Type Severity Reaction Status Date / Time thimerosal Allergy Severe Rash/Hives/throat Verified 03/05/24 11:16 swelling neomycin Allergy Rash/Hives Verified 03/05/24 11:16 Review of Systems ROS Statement: Those systems with pertinent positive or pertinent negative responses have been documented in the HPI. ROS Other: All systems not noted in ROS Statement are negative. Past Medical History Past Medical History: Diabetes Mellitus, GERD/Reflux, Hyperlipidemia, Hypertension, Liver Disease, Renal Disease Additional Past Medical History / Comment(s): Neuropathy, back pain raditating to legs, Cirrhosis, "kidneys don't always work right." , pancreatitis History of Any Multi-Drug Resistant Organisms: None Reported Past Surgical History: Heart Catheterization, Joint Replacement, Orthopedic Surgery Additional Past Surgical History / Comment(s): Bilateral cataracts removed, bilateral hip replacements, right heal surgery with screws/plates/pins placed, L2-L4 cage fussion Past Anesthesia/Blood Transfusion Reactions: No Reported Reaction Past Psychological History: Anxiety, Bipolar, Depression, PTSD, Schizoaffective Disorder Smoking Status: Vaper Past Alcohol Use History: None Reported Past Drug Use History: None Reported - Past Family History Father Family Medical History: Myocardial Infarction ([place]) Additional Family Medical History / Comment(s): [place] in mid 30's. Mother Family Medical History: Dementia family Additional Family Medical History / Comment(s): Anxiety. General Exam - General Exam Comments Initial Comments: GENERAL: Patient is well-developed and well-nourished. Patient is nontoxic and well- hydrated and is in mild distress. ENT: Neck is soft and supple. No significant lymphadenopathy is noted. Oropharynx is clear. Moist mucous membranes. Neck has full range of motion without eliciting any pain. EYES: The sclera were anicteric and conjunctiva were pink and moist. Extraocular movements were intact and pupils were equal round and reactive to light. Eyelids were unremarkable. PULMONARY: Unlabored respirations. Good breath sounds bilaterally. No audible rales rhonchi or wheezing was noted. CARDIOVASCULAR: There is a regular rate and rhythm without any murmurs gallops or rubs. ABDOMEN: Soft and nontender with normal bowel sounds. SKIN: Skin is clear with no lesions or rashes and otherwise unremarkable. NEUROLOGIC: Patient is alert and oriented x 1. Cranial nerves II through XII are grossly intact. Motor and sensory are also intact. Normal speech, volume and content. Symmetrical smile. MUSCULOSKELETAL: Normal extremities with adequate strength and full range of motion. LYMPHATICS: No significant lymphadenopathy is noted PSYCHIATRIC: Normal psychiatric evaluation. Course Vital Signs 03/05/24 03/05/24 11:11 12:20 Temperature 98.1 F Pulse Rate 123 H 104 H Respiratory 20 20 Rate Blood Pressure 139/114 164/92 O2 Sat by Pulse 95 96 Oximetry Medical Decision Making - Medical Decision Making EKG is interpreted by myself. EKG shows sinus tachycardia at 122 bpm. Under 48 QRS is 93 QT interval 313 QTc is 386. Patient's EKG shows no ST segment ovation or depression Was pt. sent in by a medical professional or institution (, PA, OPERATOR ASSISTANT I CEMENTING, urgent care, hospital, or fdc...) When possible be specific @ -No Did you speak to anyone other than the patient for history (EMS, parent, family, police, friend...)? What history was obtained from this source @ -All of our history is obtained from EMS Did you review nursing and triage notes (agree or disagree)? Why? @ -I reviewed and agree with nursing and triage notes Were old charts reviewed (outside hosp., previous admission, EMS record, old EKG, old radiological studies, urgent care reports/EKG's, fdc records)? Report findings @ -No old charts were reviewed Differential Diagnosis? @ -Differential Altered Mental Status: Hypoglycemia, DKA, hypercapnia, ETOH, overdose, CO poisoning, trauma, myxedema coma, HTN encephalopathy, infection, encephalitis, psychosis, intercranial hemorrhage, hepatic encephalopathy, meningitis, CVA, this is not meant to be an all-inclusive list EKG interpreted by me (3pts min.). @ -As above X-rays interpreted by me (1pt min.). @ -Chest x-ray shows no acute abnormality CT interpreted by me (1pt min.). @ -CT of the brain shows no acute abnormality U/S interpreted by me (1pt. min.). @ -None done What testing was considered but not performed or refused? (CT, X-rays, U/S, labs)? Why? @ -None What meds were considered but not given or refused? Why? @ -None Did you discuss the management of the patient with other professionals (professionals i.e. , PA, OPERATOR ASSISTANT I CEMENTING, lab, RT, psych nurse, social worker palliative care, roll forming machine set up operator, teacher, tax compliance officer, onsite case manager)? Give summary @ -I spoke with sound physicians he agreed to admit the patient Was smoking cessation discussed for >3mins.? @ -No Was critical care preformed (if so, how long)? @ -No Were there social determinants of health that impacted care today? How? (Homelessness, low income, unemployed, alcoholism, drug addiction, transportation, low edu. Level, literacy, decrease access to med. care, usp, rehab)? @ -No Was there de-escalation of care discussed even if they declined (Discuss DNR or withdrawal of care, Hospice)? DNR status @ -No What co-morbidities impacted this encounter? (DM, HTN, Smoking, COPD, CAD, Cancer, CVA, ARF, Chemo, Hep., AIDS, mental health diagnosis, sleep apnea, morbid obesity)? @ -None Was patient admitted / discharged? Hospital course, mention meds given and route, prescriptions, significant lab abnormalities, going to OR and other pertinent info. @ -Patient remains alert but oriented x 1 only. I spoke with sound physicians after all lab work came back and no significant acute abnormality was noted. Patient does have a creatinine of 2.04 and an elevated white count. Undiagnosed new problem with uncertain prognosis? @ -No Drug Therapy requiring intensive monitoring for toxicity (Heparin, Nitro, Insulin, Cardizem)? @ -No Were any procedures done? @ -No Diagnosis/symptom? @ -Altered mental status Acute, or Chronic, or Acute on Chronic? @ -Acute Uncomplicated (without systemic symptoms) or Complicated (systemic symptoms)? @ -Complicated Side effects of treatment? @ -No Exacerbation, Progression, or Severe Exacerbation? @ -No Poses a threat to life or bodily function? How? (Chest pain, [place], [place], pneumonia, PE, COPD, DKA, ARF, appy, cholecystitis, CVA, Diverticulitis, Homicidal, Suicidal, threat to staff... and all critical care pts) @ -No - Lab Data Result diagrams: 03/05/24 11:57 03/05/24 11:57 Lab Results 03/05/24 03/05/24 03/05/24 Range/Units 11:57 11:57 11:57 WBC 17.2 H (3.8-10.6) k/uL RBC 4.65 (4.30-5.90) m/uL Hgb 13.5 (13.0-17.5) gm/dL Hct 41.9 (39.0-53.0) % MCV 90.1 (80.0-100.0) fL MCH 29.0 (25.0-35.0) pg MCHC 32.2 (31.0-37.0) g/dL RDW 13.5 (11.5-15.5) % Plt Count 562 H (150-450) k/uL MPV 6.6 Neutrophils % 87 % Lymphocytes % 7 % Monocytes % 4 % Eosinophils % 0 % Basophils % 0 % Neutrophils # 14.9 H (1.3-7.7) k/uL Lymphocytes # 1.2 (1.0-4.8) k/uL Monocytes # 0.7 (0-1.0) k/uL Eosinophils # 0.0 (0-0.7) k/uL Basophils # 0.0 (0-0.2) k/uL PT 11.5 (10.0-12.5) sec INR 1.1 (<1.2) APTT 22.2 (22.0-30.0) sec Sodium 146 H (137-145) mmol/L Potassium 4.7 (3.5-5.1) mmol/L Chloride 108 H (98-107) mmol/L Carbon Dioxide 18 L (22-30) mmol/L Anion Gap 20 mmol/L BUN 37 H (9-20) mg/dL Creatinine 2.04 H (0.66-1.25) mg/dL Est GFR (CKD-EPI)AfAm 40 (>60 ml/min/1.73 sqM) Est GFR (CKD-EPI)NonAf 35 (>60 ml/min/1.73 sqM) Glucose 152 H (74-99) mg/dL POC Glucose (mg/dL) (70-110) mg/dL POC Glu Machine Woodworking Sander ID Calcium 10.9 H (8.4-10.2) mg/dL Total Bilirubin 0.7 (0.2-1.3) mg/dL AST 35 (17-59) U/L ALT 23 (4-49) U/L Alkaline Phosphatase 67 (38-126) U/L Ammonia (<30) umol/L Troponin I (0.000-0.034) ng/mL Total Protein 8.1 (6.3-8.2) g/dL Albumin 5.1 H (3.5-5.0) g/dL Urine Opiates Screen (NotDetected) Ur Oxycodone Screen (NotDetected) Urine Methadone Screen (NotDetected) Ur Barbiturates Screen (NotDetected) U Tricyclic Antidepress (NotDetected) Ur Phencyclidine Scrn (NotDetected) Ur Amphetamines Screen (NotDetected) U Methamphetamines Scrn (NotDetected) U Benzodiazepines Scrn (NotDetected) Urine Cocaine Screen (NotDetected) U Marijuana (THC) Screen (NotDetected) Serum Alcohol <10 mg/dL 03/05/24 03/05/24 03/05/24 Range/Units 11:57 11:57 12:41 WBC (3.8-10.6) k/uL RBC (4.30-5.90) m/uL Hgb (13.0-17.5) gm/dL Hct (39.0-53.0) % MCV (80.0-100.0) fL MCH (25.0-35.0) pg MCHC (31.0-37.0) g/dL RDW (11.5-15.5) % Plt Count (150-450) k/uL MPV Neutrophils % % Lymphocytes % % Monocytes % % Eosinophils % % Basophils % % Neutrophils # (1.3-7.7) k/uL Lymphocytes # (1.0-4.8) k/uL Monocytes # (0-1.0) k/uL Eosinophils # (0-0.7) k/uL Basophils # (0-0.2) k/uL PT (10.0-12.5) sec INR (<1.2) APTT (22.0-30.0) sec Sodium (137-145) mmol/L Potassium (3.5-5.1) mmol/L Chloride (98-107) mmol/L Carbon Dioxide (22-30) mmol/L Anion Gap mmol/L BUN (9-20) mg/dL Creatinine (0.66-1.25) mg/dL Est GFR (CKD-EPI)AfAm (>60 ml/min/1.73 sqM) Est GFR (CKD-EPI)NonAf (>60 ml/min/1.73 sqM) Glucose (74-99) mg/dL POC Glucose (mg/dL) 130 H (70-110) mg/dL POC Glu Machine [employer]working Sander ID Tej Lucia Calcium (8.4-10.2) mg/dL Total Bilirubin (0.2-1.3) mg/dL AST (17-59) U/L ALT (4-49) U/L Alkaline Phosphatase (38-126) U/L Ammonia <9 (<30) umol/L Troponin I <0.012 (0.000-0.034) ng/mL Total Protein (6.3-8.2) g/dL Albumin (3.5-5.0) g/dL Urine Opiates Screen (NotDetected) Ur Oxycodone Screen (NotDetected) Urine Methadone Screen (NotDetected) Ur Barbiturates Screen (NotDetected) U Tricyclic Antidepress (NotDetected) Ur Phencyclidine Scrn (NotDetected) Ur Amphetamines Screen (NotDetected) U Methamphetamines Scrn (NotDetected) U Benzodiazepines Scrn (NotDetected) Urine Cocaine Screen (NotDetected) U Marijuana (THC) Screen (NotDetected) Serum Alcohol mg/dL 03/05/24 Range/Units 13:29 WBC (3.8-10.6) k/uL RBC (4.30-5.90) m/uL Hgb (13.0-17.5) gm/dL Hct (39.0-53.0) % MCV (80.0-100.0) fL MCH (25.0-35.0) pg MCHC (31.0-37.0) g/dL RDW (11.5-15.5) % Plt Count (150-450) k/uL MPV Neutrophils % % Lymphocytes % % Monocytes % % Eosinophils % % Basophils % % Neutrophils # (1.3-7.7) k/uL Lymphocytes # (1.0-4.8) k/uL Monocytes # (0-1.0) k/uL Eosinophils # (0-0.7) k/uL Basophils # (0-0.2) k/uL PT (10.0-12.5) sec INR (<1.2) APTT (22.0-30.0) sec Sodium (137-145) mmol/L Potassium (3.5-5.1) mmol/L Chloride (98-107) mmol/L Carbon Dioxide (22-30) mmol/L Anion Gap mmol/L BUN (9-20) mg/dL Creatinine (0.66-1.25) mg/dL Est GFR (CKD-EPI)AfAm (>60 ml/min/1.73 sqM) Est GFR (CKD-EPI)NonAf (>60 ml/min/1.73 sqM) Glucose (74-99) mg/dL POC Glucose (mg/dL) (70-110) mg/dL POC Glu Machine Woodworking Sander ID Calcium (8.4-10.2) mg/dL Total Bilirubin (0.2-1.3) mg/dL AST (17-59) U/L ALT (4-49) U/L Alkaline Phosphatase (38-126) U/L Ammonia (<30) umol/L Troponin I (0.000-0.034) ng/mL Total Protein (6.3-8.2) g/dL Albumin (3.5-5.0) g/dL Urine Opiates Screen Not Detected (NotDetected) Ur Oxycodone Screen Not Detected (NotDetected) Urine Methadone Screen Not Detected (NotDetected) Ur Barbiturates Screen Not Detected (NotDetected) U Tricyclic Antidepress Detected H (NotDetected) Ur Phencyclidine Scrn Not Detected (NotDetected) Ur Amphetamines Screen Not Detected (NotDetected) U Methamphetamines Scrn Not Detected (NotDetected) U Benzodiazepines Scrn Detected H (NotDetected) Urine Cocaine Screen Not Detected (NotDetected) U Marijuana (THC) Screen Not Detected (NotDetected) Serum Alcohol mg/dL Disposition Clinical Impression: Altered mental status Disposition: ADMITTED IP TO THIS HOSP Referrals: Marlen Mobley MD [Primary Care Provider] - 1-2 days Time of Disposition: 14:26
[2024-03-05] MEDS: SODIUM CHLORIDE 0.9% 500 ML 500 ML IV ONE (11:59)
--- NOTE | 2024-03-05 12:24 | XR ---
EXAMINATION TYPE: XR chest 2V DATE OF EXAM: 03/05/2024 COMPARISON: 08/18/2023 HISTORY: 59-year-old male confusion, altered mental status TECHNIQUE: AP and lateral views FINDINGS: Heart normal size. Aorta and pulmonary vascularity within normal limits. Mild interstitial prominence is unchanged. Eventration anterior right hemidiaphragm is unchanged. No consolidation or pleural eff usion. IMPRESSION: Chronic changes. No acute process seen. [facility], , 03/05/2024 12:22 PM
[2024-03-05 12:27] LABS: ALT 23 U/L (4-49); AST 35 U/L (17-59); African American GFR (CKD) 40 (>60 ml/min/1.73 sqM); Albumin 5.1 g/dL (3.5-5.0); Alcohol <10 mg/dL; Alkaline Phosphatase 67 U/L (38-126); Anion Gap 20 mmol/L; Blood Urea Nitrogen 37 mg/dL (9-20); Calcium 10.9 mg/dL (8.4-10.2); Carbon Dioxide 18 mmol/L (22-30); Chloride 108 mmol/L (98-107); Glucose 152 mg/dL (74-99); Non-African American GFR(CKD) 35 (>60 ml/min/1.73 sqM); Potassium 4.7 mmol/L (3.5-5.1); Sodium 146 mmol/L (137-145); Total Bilirubin 0.7 mg/dL (0.2-1.3); Total Protein 8.1 g/dL (6.3-8.2)
--- NOTE | 2024-03-05 12:30 | CT ---
EXAMINATION TYPE: CT brain wo con CT DLP: 1095.4 mGycm, Automated exposure control for dose reduction was used. DATE OF EXAM: 03/05/2024 12:23 PM COMPARISON: Prior CT Brain from 12/15/2022, 11/05/2022 . CLINICAL INDICATION:Male, 59 years old with history of Altered mental status, AMS TECHNIQUE: Brain: Multiple axial CT images of the brain were obtained without IV contrast. . Coronal and sagitta l reformats reviewed. FINDINGS: Brain: Extra-axial spaces: No abnormal extra-axial fluid collections. Ventricular system: Within normal limits Cerebral parenchyma: No acute intraparenchymal hemorrhage or mass effect. The troncoso-white junction is well differentiated. Cerebellum: Unremarkable. Mass effect: No evidence of midline shift. Intracranial vasculature: unremarkable Soft tissues: Normal. Calvarium/osseous structures: No depressed skull fracture. Paranasal sinuses and mastoid air cells: Clear Visualized orbits: Bilateral aphakia IMPRESSION: No acute intracranial process. [facility], , 03/05/2024 12:28 PM
[2024-03-05 12:33] LABS: Basophils % (A) 0 %; Eosinophils % (A) 0 %; HCT 41.9 % (39.0-53.0); HGB 13.5 gm/dL (13.0-17.5); Lymphocytes # (A) 1.2 k/uL (1.0-4.8); Lymphocytes % (A) 7 %; MCHC 32.2 g/dL (31.0-37.0); MCV 90.1 fL (80.0-100.0); Mean Platelet Volume 6.6; Monocytes # (A) 0.7 k/uL (0-1.0); Monocytes % (A) 4 %; Neutrophils # (A) 14.9 k/uL (1.3-7.7); Neutrophils % (A) 87 %; Platelet Count 562 k/uL (150-450); RBC 4.65 m/uL (4.30-5.90); RDW 13.5 % (11.5-15.5); WBC 17.2 k/uL (3.8-10.6)
[2024-03-05 12:34] LABS: INR 1.1 (<1.2); Partial Thromboplastin Time 22.2 sec (22.0-30.0); Prothrombin Time 11.5 sec (10.0-12.5)
[2024-03-05 12:42] LABS: Glucose,Whole Blood 130 mg/dL (70-110)
[2024-03-05] MEDS: LIDOCAINE 2% URO-JET JELLY 5 ML KIT URETHRAL ONE (13:29)
[2024-03-05 13:59] LABS: Amphetamine Screen,Urine Not Detected (NotDetected); Barbiturate Screen,Urine Not Detected (NotDetected); Benzodiazepines Screen,Urine Detected (NotDetected); Cocaine Screen,Urine Not Detected (NotDetected); Methadone Screen, Urine Not Detected (NotDetected); Opiate Screen,Urine Not Detected (NotDetected); Oxycodone Screen, Urine Not Detected (NotDetected); Phencyclidine Screen,Urine Not Detected (NotDetected); Tricyclic Antidepressant,Urine Detected (NotDetected); Urn Cannabinoid Scrn Not Detected (NotDetected)
[2024-03-05] MEDS: SODIUM CHLORIDE 0.9% 1,000 ML IV ONE (15:07)
[2024-03-05] MEDS ORDERED: DEXTROSE 50% SYRINGE 50 ML IVP PRN ×2 (15:11)
[2024-03-05 15:17] LABS: Appearance,Urine Clear (Clear); Bilirubin,Urine Negative (Negative); Blood,Urine Negative (Negative); Color,Urine Light Yellow; Glucose,Urine (UA) 4+ (Negative); Ketones,Urine 1+ (Negative); Leukocyte Esterase,Urine Negative (Negative); Nitrite,Urine Negative (Negative); Protein,Urine Trace (Negative); Specific Gravity,Urine 1.024 (1.001-1.035); Urobilinogen,Urine <2.0 mg/dL (<2.0)
--- NOTE | 2024-03-05 16:06 | US ---
EXAMINATION TYPE: US kidneys/renal and bladder DATE OF EXAM: 03/05/2024 COMPARISON: MR 2023 CLINICAL INDICATION: Male, 59 years old with history of JACKIE TECHNIQUE: Grayscale and color Doppler imaging of the bilateral kidneys and urinary bladder: FINDINGS: EXAM MEASUREMENTS: Right Kidney: 10.1 x 4.8 x 5.7 cm Left Kidney: 10.6 x 5.1 x 5.9 cm [employer] Worker notes:Exam is limited due to constant patient movement. Right Kidney: No hydronephrosis or masses seen Left Kidney: No hydronephrosis or masses seen Bladder: Bladder wall appears minimally thickened: 0.38 cm. But otherwise without gross abnormality Bilateral Jets seen: Yes IMPRESSION: No hydronephrosis. [facility], , 03/05/2024 4:04 PM
[2024-03-05] MEDS: hydrOXYzine pamoate 25 MG CAP PO PRN (16:29)
[2024-03-05 17:09] LABS: Glucose,Whole Blood 155 mg/dL (70-110)
[2024-03-05] MEDS: LIPASE 20,000/PROTEASE 63,000/AMYLASE 84,000 PO SCH (17:20)
[2024-03-05] MEDS: INSULIN ASPART (NovoLOG) 100 UNIT/ML VIAL SQ SCH (17:22)
--- NOTE | 2024-03-05 19:03 | P.HPIM ---
History of Present Illness H&P Date: 03/05/24 History of Presenting Illness: Patient is a pleasant 59-year-old male with a past medical history of hypertension, hyperlipidemia, liver cirrhosis, [id number] diabetes mellitus, chronic kidney disease stage IIIb, anxiety, bipolar disorder, depression, PTSD, and schizoaffective disorder. He presented to the emergency department after being brought in by the police after being found wandering downtown in his underwear and T-shirt with no shoes. Patient alert to self only and unable to provide meaningful history. He does deny having any pain or complaints at this time. Patient noted to have multiple muscle fasciculations to bilateral upper extremities and continuous pill-rolling behavior of bilateral hands. He is very fidgety and unable to sit still. He denies any alcohol or drug use and denies taking any prescription or nonprescription pills. Patient is able to be redirected and follows commands. Pupils dilated. He underwent evaluation in the emergency department. Vital signs upon arrival show blood pr essure 139/114, heart rate 123, respiratory rate 20, temp 98.1 F, and SpO2 of 95% on room air. Blood glucose was 152. EKG completed showing sinus tachycardia 122 bpm with no significant T wave or ST abnormality showing no signs of acute ischemia upon personal review and interpretation. CT brain negative for acute intracranial process. Chest x-ray showing elevation of hemidiaphragm unchanged but negative for acute cardiopulmonary process. Labs completed and reviewed. CBC showing leukocytosis with WBC count of 17.2 and thrombocytosis with platelet count of 562. Coagulation profile normal findings. BMP revealing hyponatremia with sodium of 146, high anion gap metabolic acidosis with chloride of 108, bicarb 18, and anion gap of 20 along with acute kidney injury on CKD stage IIIb with BUN of 37, creatinine of 2.04, GFR of 35 baseline creatinine of 1.3. Blood glucose 152. Calcium was elevated at 10.9. Liver profile unremarkable. Ammonia levels were less than 9 and troponin was l ess than 0.012. Urinalysis positive for glucose and ketones but negative for blood or infection. Serum alcohol level was negative at less than 10. Urine drug screen was positive for tricyclic antidepressants and benzodiazepines otherwise negative. Patient admitted under our services for further workup with consultation to nephrology and psychiatry. Review of systems: Pertinent positives and negatives as discussed in HPI, a complete review of systems was performed and all other systems are negative. Physical exam: Vital signs reviewed and stable. General: Nontoxic, no distress and appears stated age. Derm: Skin warm and dry, normal coloration for ethnicity. Head: Atraumatic, normocephalic and symmetric. Eyes: EOM's intact, no lid lag, and anicteric sclera. Pupils dilated but equal bilaterally. Mouth: no lip lesions, mucus membranes dry. no tounge protrusion or Cardiovascular: Tachycardic rate and regular rhythm with normal S1S2, no murmur, positive posterior tibial pulses bilaterally, and cap refill < 2 seconds. Lungs: Respirations even, regular, and unlabored on room air. Lungs CTA bilaterally, no rhonchi, no rales, no wheezing, and no accessory muscle usage. Abdominal: soft, nontender to palpation, no guarding, no appreciable organomegaly Ext: ROM intact. No gross muscle atrophy, no edema, no contractures Neuro: Speech clear, face symmetrical and CN II-XII grossly intact with no noted focal neuro deficits Psych: Alert and oriented to self only. Very fidgety with upper extremity fasciculations. Anxious and paranoid affect. Assessment and Plan of Care: Acute Metabolic encephalopathy, delirium of unclear cause High anion gap metabolic acidosis Hypernatremia Acute kidney injury on stage IIIb chronic kidney disease Sinus tachycardia Leukocytosis and thrombocytosis Hypercalcemia -Acute metabolic encephalopathy of unclear cause. Patient does have extensive psychiatric history and current presentation is possibly secondary to polysubstance abuse as patient is on multiple psychiatric medications including Provigil 200 mg daily, Lyrica 300 mg twice daily, Seroquel 100 mg nightly, BuSpar 15 mg twice daily, and Lexapro 20 mg daily. Patient also testing positive for benzodiazepines and has dilated pupils but is not prescribed. -Will hold these psychiatric medications pending evaluation by psychiatrist. -Patient received a 1 L bolus of 0.9% normal saline and started on maintenance infusion at 100 cc/h. -Patient to remain on continuous telemetry monitoring. -Neurochecks every 4 hours. -Fall precautions and elopement precautions in place. -Consult placed to psychiatry secondary to patient's extensive psychiatric history and current presentation. -Consult placed to nephrology secondary to JACKIE on CKD. -Orders placed for bladder scanning to monitor for postvoid residual/retention -Order placed for renal ultrasound. -Hold nephrotoxic medications including losartan. -TSH with reflex free T4 to be obtained. Hypertension -Monitor vital signs. Continue propranolol 20 mg daily. Losartan held secondary to JACKIE. Hyperlipidemia -Continue pravastatin 40 mg nightly. Liver cirrhosis -Liver enzymes unremarkable and ammonia level is less than 9. Aqu-wnchglo-[id number] diabetes mellitus -Hold oral medications and patient placed on glycemic protocol with NovoLog sliding scale. Data and Imaging reviewed: -As stated above in HPI. CODE STATUS: Full code DVT prophylaxis: Heparin Anticipated discharge date: Pending clinical course Anticipated discharge place: Pending clinical course Patient was seen independently by Nurse Practitioner. This document was prepared using [employer] dictation software. Please allow for errors in premix operator concentrate while rare they do occur. Patient was seen independently by Ajit Rudolph NP. I agree with the assessment and plan as above. Past Medical History Past Medical History: Diabetes Mellitus, GERD/Reflux, Hyperlipidemia, Hypertension, Liver Disease, Renal Disease Additional Past Medical History / Comment(s): Neuropathy, back pain raditating to legs, Cirrhosis, "kidneys don't always work right." , pancreatitis History of Any Multi-Drug Resistant Organisms: None Reported Past Surgical History: Heart Catheterization, Joint Replacement, Orthopedic Surgery Additional Past Surgical History / Comment(s): Bilateral cataracts removed, bilateral hip replacements, right heal surgery with screws/plates/pins placed, L2-L4 cage fussion Past Anesthesia/Blood Transfusion Reactions: No Reported Reaction Past Psychological History: Anxiety, Bipolar, Depression, PTSD, Schizoaffective Disorder Smoking Status: Vaper Past Alcohol Use History: None Reported Past Drug Use History: None Reported - Past Family History Father Family Medical History: Myocardial Infarction ([place]) Additional Family Medical History / Comment(s): [place] in mid 30's. Mother Family Medical History: Dementia family Additional Family Medical History / Comment(s): Anxiety. Medications and Allergies Home Medications Medication Instructions Recorded Confirmed Type Pravastatin Sodium [Pravachol] 40 mg PO HS 14 Days #14 tab 11/01/22 03/05/24 Rx glipiZIDE [Glucotrol] 20 mg PO BID 14 Days #56 tab 11/01/22 03/05/24 Rx Lipase/Protease/Amylase [Creon Dr 1 cap PO TID-W/MEALS 12/15/22 03/05/24 History 24,000 Unit Capsule] Empagliflozin [Jardiance] 25 mg PO DAILY 12/29/23 03/05/24 History Ferrous Sulfate [Iron (65 MG 325 mg PO DIRECTED 12/29/23 03/05/24 History Elemental)] Ketoconazole 2% Cream [Nizoral 2%] 1 applic TOPICAL DAILY 12/29/23 03/05/24 History Lidocaine 5% Patch [Lidoderm 5% 1 patch TRANSDERM DAILY 12/29/23 03/05/24 History Patch] Magnesium Oxide [Mag-Ox] 400 mg PO DAILY 12/29/23 03/05/24 History Melatonin 10 mg PO HS 12/29/23 03/05/24 History Pantoprazole Sodium [Protonix] 20 mg PO BID 12/29/23 03/05/24 History Propranolol [Inderal] 20 mg PO DAILY 12/29/23 03/05/24 History hydrOXYzine pamoate [Vistaril] 50 mg PO TID PRN 12/29/23 03/05/24 History modafiniL [Provigil] 200 mg PO DAILY 01/25/24 03/05/24 History Aspirin EC [Ecotrin Low Dose] 81 mg PO DAILY 03/05/24 03/05/24 History Aspirin/Acetaminophen/Caffeine 1 tab PO DAILY PRN 03/05/24 03/05/24 History [Excedrin Migraine Caplet] Dulaglutide [Trulicity] 4.5 mg SQ WEEKLY 03/05/24 03/05/24 History Fenofibrate 160 mg PO DAILY 03/05/24 03/05/24 History Prazosin HCl [Minipress] 2 mg PO HS 03/05/24 03/05/24 History Thiamine [Vitamin B-1] 100 mg PO DAILY 03/05/24 03/05/24 History Vitamin D(Unknown Dose) 1 tab PO DAILY 03/05/24 03/05/24 History Escitalopram [Lexapro] 10 mg PO DAILY #30 tab 03/07/24 Rx QUEtiapine [SEROquel] 100 mg PO HS #30 tab 03/07/24 Rx Sodium Bicarbonate Tab 650 mg PO BID #60 tab 03/07/24 Rx busPIRone HCl [Buspar] 10 mg PO BID #60 tab 03/07/24 Rx Allergies Allergy/AdvReac Type Severity Reaction Status Date / Time thimerosal Allergy Severe Rash/Hives/throat Verified 03/05/24 14:46 swelling neomycin Allergy Rash/Hives Verified 03/05/24 14:46 Physical Exam Vitals: Vital Signs Temp Pulse Resp BP Pulse Ox 03/05/24 14:37 116 H 20 117/84 98 03/05/24 12:20 104 H 20 164/92 96 03/05/24 11:11 98.1 F 123 H 20 139/114 95 Intake and Output 03/04/24 03/05/24 03/05/24 22:59 06:59 14:59 Output Total 650 Balance -650 Output: Urine 650 Straight 650 Other: Weight 81.647 kg Results CBC & Chem 7: 03/06/24 08:41 03/07/24 05:30 Labs: Abnormal Lab Results - Last 24 Hours (Table) 03/05/24 03/05/24 03/05/24 Range/Units 11:57 11:57 12:41 WBC 17.2 H (3.8-10.6) k/uL Plt Count 562 H (150-450) k/uL Neutrophils # 14.9 H (1.3-7.7) k/uL Sodium 146 H (137-145) mmol/L Chloride 108 H (98-107) mmol/L Carbon Dioxide 18 L (22-30) mmol/L BUN 37 H (9-20) mg/dL Creatinine 2.04 H (0.66-1.25) mg/dL Glucose 152 H (74-99) mg/dL POC Glucose (mg/dL) 130 H (70-110) mg/dL Calcium 10.9 H (8.4-10.2) mg/dL Albumin 5.1 H (3.5-5.0) g/dL U Tricyclic Antidepress (NotDetected) U Benzodiazepines Scrn (NotDetected) 03/05/24 Range/Units 13:29 WBC (3.8-10.6) k/uL Plt Count (150-450) k/uL Neutrophils # (1.3-7.7) k/uL Sodium (137-145) mmol/L Chloride (98-107) mmol/L Carbon Dioxide (22-30) mmol/L BUN (9-20) mg/dL Creatinine (0.66-1.25) mg/dL Glucose (74-99) mg/dL POC Glucose (mg/dL) (70-110) mg/dL Calcium (8.4-10.2) mg/dL Albumin (3.5-5.0) g/dL U Tricyclic Antidepress Detected H (NotDetected) U Benzodiazepines Scrn Detected H (NotDetected)
[2024-03-05 20:05] LABS: Glucose,Whole Blood 121 mg/dL (70-110)
[2024-03-05] MEDS: PRAZOSIN 1 MG CAP PO SCH (20:22)
[2024-03-05] MEDS: PANTOPRAZOLE 40 MG TABLET PO SCH (20:22)
[2024-03-05] MEDS: MELATONIN 5 MG TABLET PO SCH (20:22)
[2024-03-05] MEDS: PRAVASTATIN SODIUM 40 MG TAB PO SCH (20:22)
[2024-03-05] MEDS ORDERED: QUEtiapine 100 MG TAB PO SCH (21:00)
[2024-03-05] MEDS ORDERED: busPIRone HCl 5 MG TAB PO SCH (21:00)
[2024-03-05] MEDS: SODIUM CHLORIDE 0.45% 1,000 ML IV SCH (23:49)
[2024-03-05] MEDS: HEPARIN SODIUM,PORCINE 5,000 UNIT/ML 1 ML VIAL SQ SCH (23:50)
[2024-03-06] MEDS: ONDANSETRON 4 MG/2 ML VIAL IVP STA ×2 (00:26→00:32)
[2024-03-06 06:14] LABS: Glucose,Whole Blood 128 mg/dL (70-110)
[2024-03-06] MEDS: ASPIRIN 81 MG PO SCH (08:43)
[2024-03-06] MEDS: THIAMINE 100 MG TAB PO SCH (08:43)
[2024-03-06] MEDS: PROPRANOLOL 20 MG TAB PO SCH (08:43)
[2024-03-06] MEDS: FENOFIBRATE 160 MG TAB PO SCH (08:44)
[2024-03-06] MEDS ORDERED: CHOLECALCIFEROL 25 MCG (1000 IU) TABLET PO SCH (09:00)
[2024-03-06] MEDS ORDERED: ESCITALOPRAM 20 MG TAB PO SCH (09:00)
[2024-03-06 09:32] LABS: HCT 40.5 % (39.0-53.0); MCH 28.6 pg (25.0-35.0); MCHC 32.1 g/dL (31.0-37.0); MCV 88.9 fL (80.0-100.0); Mean Platelet Volume 7.5; Platelet Count 515 k/uL (150-450); RBC 4.56 m/uL (4.30-5.90); WBC 12.4 k/uL (3.8-10.6)
[2024-03-06 09:42] LABS: ALT 32 U/L (4-49); AST 68 U/L (17-59); African American GFR (CKD) 51 (>60 ml/min/1.73 sqM); Albumin/Globulin Ratio 1.7; Alkaline Phosphatase 81 U/L (38-126); Anion Gap 16 mmol/L; Blood Urea Nitrogen 37 mg/dL (9-20); Calcium 10.5 mg/dL (8.4-10.2); Carbon Dioxide 17 mmol/L (22-30); Chloride 114 mmol/L (98-107); Globulin 2.9 g/dL; Glucose 119 mg/dL (74-99); Magnesium 2.2 mg/dL (1.6-2.3); Non-African American GFR(CKD) 44 (>60 ml/min/1.73 sqM); Potassium 4.3 mmol/L (3.5-5.1); Sodium 147 mmol/L (137-145); Total Bilirubin 0.8 mg/dL (0.2-1.3); Total Protein 7.9 g/dL (6.3-8.2)
--- NOTE | 2024-03-06 11:07 | P.NPCON ---
History of Present Illness - Reason for Consult acute renal failure - History of Present Illness Reason for consultation: Acute kidney injury History of present is: Patient is a 59-year-old male seen in renal consultation for acute kidney injury. Patient's creatinine in October 2022 was 0.6-0.7 but recently has been in the range of 1.3-1.5. Creatinine this admission was 2.04 and is 1.66 today. Sodium is 147 today. Patient came to the hospital due to altered mental status. He was found wandering the streets in his underwear and was brought to the hospital. Patient is not a very reliable historian. He denies use of IV drugs or alcohol. Serum alcohol level was negative. Urine drug screen was positive for tricyclic antidepressants and benzodiazepines. UA shows 1+ ketones and 4+ glucose. Otherwise fairly benign. Patient has history of liver cirrhosis as well as diabetes mellitus. Patient also has history of bipolar and schizoaffective disorder. Patient was on multiple psychiatric meds including BuSpar and Seroquel. He was also on Provigil. Additionally he was also on losartan and Jardiance outpatient. I also see Motrin on his outpatient list. Again it is not clear as to what exactly he was taking. He is currently receiving half-normal saline at 100 cc an hour. Denies gross hematuria or dysuria. Vital signs are stable. General: Restless. HEENT: Head exam is unremarkable. LUNGS: No audible rhonchi or wheezes. HEART: Rate and Rhythm are regular. ABDOMEN: Nontender. EXTREMITITES: No edema. Tremor noted. Past Medical History Past Medical History: Diabetes Mellitus, GERD/Reflux, Hyperlipidemia, Hypertension, Liver Disease, Renal Disease Additional Past Medical History / Comment(s): Neuropathy, back pain raditating to legs, Cirrhosis, "kidneys don't always work right." , pancreatitis History of Any Multi-Drug Resistant Organisms: None Reported Past Surgical History: Heart Catheterization, Joint Replacement, Orthopedic Surgery Additional Past Surgical History / Comment(s): Bilateral cataracts removed, bilateral hip replacements, right heal surgery with screws/plates/pins placed, L2-L4 cage fussion Past Anesthesia/Blood Transfusion Reactions: No Reported Reaction Past Psychological History: Anxiety, Bipolar, Depression, PTSD, Schizoaffective Disorder Smoking Status: Unknown if ever smoked Past Alcohol Use History: None Reported Additional Past Alcohol Use History / Comment(s): Per sister, pt has been clean for about a year and was drinking heavily, using street drugs (mainly huffing) prior. Additional Drug Use History / Comment(s): Pt's sister states that pt has been using illicit drugs since he was a child but has been clean for about a year. - Past Family History Father Family Medical History: Myocardial Infarction ([place]) Additional Family Medical History / Comment(s): [place] in mid 30's. Mother Family Medical History: Dementia family Additional Family Medical History / Comment(s): Anxiety. Medications and Allergies Home Medications Medication Instructions Recorded Confirmed Type Pravastatin Sodium [Pravachol] 40 mg PO HS 14 Days #14 tab 11/01/22 03/05/24 Rx glipiZIDE [Glucotrol] 20 mg PO BID 14 Days #56 tab 11/01/22 03/05/24 Rx metFORMIN HCL [Glucophage] 1,000 mg PO BID 14 Days #28 tab 11/01/22 03/05/24 Rx Lipase/Protease/Amylase [Creon Dr 1 cap PO TID-W/MEALS 12/15/22 03/05/24 History 24,000 Unit Capsule] Baclofen 10 mg PO HS 12/29/23 03/05/24 History Cyclobenzaprine [Flexeril] 10 mg PO TID PRN 12/29/23 03/05/24 History Empagliflozin [Jardiance] 25 mg PO DAILY 12/29/23 03/05/24 History Escitalopram [Lexapro] 20 mg PO DAILY 12/29/23 03/05/24 History Ferrous Sulfate [Iron (65 MG 325 mg PO DIRECTED 12/29/23 03/05/24 History Elemental)] Ketoconazole 2% Cream [Nizoral 2%] 1 applic TOPICAL DAILY 12/29/23 03/05/24 History Lidocaine 5% Patch [Lidoderm] 1 patch TRANSDERM DAILY 12/29/23 03/05/24 History Losartan [Cozaar] 25 mg PO BID 12/29/23 03/05/24 History Magnesium Oxide [Mag-Ox] 400 mg PO DAILY 12/29/23 03/05/24 History Melatonin 10 mg PO HS 12/29/23 03/05/24 History Pantoprazole Sodium [Protonix] 20 mg PO BID 12/29/23 03/05/24 History Propranolol [Inderal] 20 mg PO DAILY 12/29/23 03/05/24 History QUEtiapine [SEROquel] 100 mg PO HS 12/29/23 03/05/24 History hydrOXYzine pamoate [Vistaril] 50 mg PO TID PRN 12/29/23 03/05/24 History modafiniL [Provigil] 200 mg PO DAILY 01/25/24 03/05/24 History Aspirin EC [Ecotrin Low Dose] 81 mg PO DAILY 03/05/24 03/05/24 History Aspirin/Acetaminophen/Caffeine 1 tab PO DAILY PRN 03/05/24 03/05/24 History [Excedrin Migraine Caplet] Dulaglutide [Trulicity] 4.5 mg SQ WEEKLY 03/05/24 03/05/24 History Fenofibrate 160 mg PO DAILY 03/05/24 03/05/24 History Ibuprofen [Motrin] 800 mg PO Q8H PRN 03/05/24 03/05/24 History Prazosin HCl [Minipress] 2 mg PO HS 03/05/24 03/05/24 History Pregabalin [Lyrica] 300 mg PO BID 03/05/24 03/05/24 History QUEtiapine [SEROquel] 100 mg PO HS PRN 03/05/24 03/05/24 History Thiamine [Vitamin B-1] 100 mg PO DAILY 03/05/24 03/05/24 History Vitamin D(Unknown Dose) 1 tab PO DAILY 03/05/24 03/05/24 History busPIRone HCL 15 mg PO BID 03/05/24 03/05/24 History Gabapentin 1,200 mg PO TID 03/06/24 03/06/24 History Allergies Allergy/AdvReac Type Severity Reaction Status Date / Time thimerosal Allergy Severe Rash/Hives/throat Verified 03/05/24 14:46 swelling neomycin Allergy Rash/Hives Verified 03/05/24 14:46 Physical Exam Vitals: Vital Signs Temp Pulse Pulse Resp BP BP BP 03/06/24 07:00 98.5 F 109 H 18 149/91 03/06/24 02:00 128 H 03/06/24 01:53 98.1 F 128 H 18 142/79 03/05/24 19:12 98.6 F 80 17 161/82 03/05/24 14:37 116 H 20 117/84 03/05/24 12:20 104 H 20 164/92 03/05/24 11:11 98.1 F 123 H 20 139/114 Pulse Ox 03/06/24 07:00 98 03/06/24 02:00 03/06/24 01:53 97 03/05/24 19:12 97 03/05/24 14:37 98 03/05/24 12:20 96 03/05/24 11:11 95 Intake and Output 03/05/24 03/06/24 03/06/24 22:59 06:59 14:59 Intake Total 850 60 Output Total 0 1160 Balance 850 -1100 Intake: Intake, IV Titration 250 Amount Sodium Chloride 0.9% 1, 250 000 ml @ 100 mls/hr IV . Q10H ONE Rx#:[id number] Oral 600 60 Output: Urine 1160 Straight 580 Stool 0 Other: # Voids 0 Weight 81.647 kg Results - Lab Results Most recent lab results Calcium 10.5 mg/dL (8.4-10.2) H 03/06/24 08:41 Magnesium 2.2 mg/dL (1.6-2.3) 03/06/24 08:41 03/06/24 08:41 03/06/24 08:41 Assessment and Plan Plan: Assessment: 1. Acute kidney injury secondary to vasomotor nephropathy from hypovolemia. Creatinine 2.04 on admission and is 1.66 today. No hydronephrosis noted on kidney ultrasound. 2. Chronic kidney disease stage IIIa with baseline creatinine recently in the range of 1.3-1.5. Etiology is diabetic kidney disease and nephrosclerosis. Trace proteinuria noted on UA. 3. Anion gap metabolic acidosis secondary to acute kidney injury. He was also on metformin and Jardiance which can cause acidosis. Additionally urine ketones were positive suggesting starvation ketosis. Additional component of nongap acidosis from IV fluids. Serum alcohol level negative. Volatile screen pendin g. 4. Hypernatremia from lack of oral water intake. 5. Hypercalcemia secondary to volume contraction. Corrected calcium for albumin is actually in the normal range. TSH normal. I do see vitamin D on his home medication list but unclear as to what he was exactly taking. 6. History of bipolar and schizoaffective disorder. 7. Diabetes mellitus. 8. Hypertension with chronic kidney disease. Plan: Change IV fluids to D5W at 80 cc an hour. Encouraged oral intake, including free water. Check secondary workup for hypercalcemia. Psychiatry consulted. Case discussed with primary team. Thank you for the consultation. I will continue to follow the patient with you during his hospital stay.
[2024-03-06 12:12] LABS: Glucose,Whole Blood 163 mg/dL (70-110)
[2024-03-06] MEDS: SODIUM BICARBONATE TAB 650 MG TAB PO SCH (12:28)
[2024-03-06] MEDS: DEXTROSE 5% IN WATER 1,000 ML IV SCH (13:24)
--- NOTE | 2024-03-06 14:28 | P.CN ---
Psychiatric Consult - . Consult date: 03/06/24 Consult:: 03/06/24 13:22 IDENTIFYING DATA: Andrea is a 59-year-old male, currently lives alone reason for consultation: Psychiatric evaluation HISTORY OF PRESENT ILLNESS: Patient presented to the ER yesterday, was brought in by the police for altered mental status. Patient was apparently found at a "radio station" with no pants on had underwear on, no shoes was acting confused according to ER report. Patient was found to have JACKIE, nephrology on board. WBCs were elevated 7.2, ANC was 14.9. Patient had a CT scan of his brain which did not show any acute changes. Patient had a urine drug screen is positive for TCA, benzodiazepines. Blood alcohol level was negative. Patient was seen in the room today, appeared to be fidgeting, also anxious appearing. He was fairly concrete, hesitant in his speech. He responded to several questions with "I do not know". He knew his first name does not know his last name or age. He does not know the location where he is at. He does not know today's date. He was a fairly poor historian does not know why he is in the hospital. Cannot tell physician underwriter what he last remembered, if he use drugs or not. He denied any alcohol use. Claims that he must be sleeping well, denied eating any lunch today. At this time he is denying any suicidal homicidal ideations intent or plan. Denying any auditory visual loose hallucinations. He was able to identify certain things in the room however had difficulty recalling what they were used for. PAST PSYCHIATRIC HISTORY: He has a long history of psychiatric illness with multiple psychiatric hospitalizations and last psychiatric admission was in September 2022. According to [facility] his diagnosis he has a bipolar disorder, social anxiety disorder, alcohol use disorder and intellect use disorder and polysubstance abuse, patient also has a significant history for inhalant abuse. Patient previously was following up at [facility]. Patient has been on several different psychiatric medications in including Geodon, BuSpar, Klonopin, Seroquel, also, naltrexone, processing, Remeron. Denies any suicide attempts in the past. PAST MEDICAL HISTORY: As per medical H&P ALLERGIES: Thimerosal, neomycin SUBSTANCE USE HISTORY: As per HPI. FAMILY PSYCHIATRIC/SUBSTANCE USE HISTORY: His father had a history of a mental illness. SOCIAL HISTORY: Social history is taken from previous admission note in 2022 by physician underwriter. His born and raised in [place]. 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 He is on disability related to his mental and physical problems. 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 He quit when the work became too demanding. He is and has one son with whom he has no contact. Currently lives alone. MENTAL STATUS EXAM: General Appearance: Patient appears to be bald, has a goatee, several tattoos, stated age is alert, attempts to cooperate however is confused. Patient appears to have fair hygiene and grooming wearing hospital gown with fair eye contact. Behavior: Patient is calmly lying in bed without any agita concrete, hesitant Mood/Affect: Patient reports their mood is "ok", affect is incongruent and constricted Suicidality/Homicidality: Patient denies having any suicidal or homicidal ideation intent or plan. Perceptions: Patient denies any visual hallucinations and denies any auditory hallucinations Though content/process: Poverty of content, not endorsing any delusions. [place] Memory and concentration: AOX1, he only knows his first name, does not know his age his location or today's date. Cannot spell "WORLD" backwards Judgment and insight: poor IMPRESSIONS: Delirium unknown etiology History of bipolar disorder Generalized anxiety disorder with panic attacks History of inhalant abuse Nicotine dependence PLAN: -At this time patient DOES NOT meet criteria for inpatient psychiatric admission. -Patient DOES NOT have decision making capacity at this time and is unable to reason through and communicate/appreciate the risks, benefits and alternatives to treatment. -Delirium precautions recommended with patient including - avoiding use of narcotics and BIODIESEL ENGINEERING MANAGER sedatives, limit anticholinergic medications when possible, frequent re-orientation, minimize use of restraints, open window shades during the day and close them at night -Would recommend the following medication changes/additions: Start 100 mg nightly of Seroquel for mood stabilization/sleep, Lexapro 10 mg daily for mood/anxiety, BuSpar 10 mg twice daily for anxiety. -CIWA protocol with PRN Ativan for alcohol withdrawal. Continue to monitor vital signs. -Continue 1:1 sitter for safety -magazine worker to provide patient substance use treatment resources including AA/NA meetings in the community. -magazine worker to provide patient with access line number to call for inpatient substance rehab -Communicated plan to patient's nurse -Will continue to follow along -Please contact with any questions. 03/06/24 14:27
[2024-03-06] MEDS: busPIRone HCl 10 MG TAB PO SCH (14:42)
[2024-03-06] MEDS: ESCITALOPRAM 10 MG TAB PO SCH (14:42)
[2024-03-06] MEDS: QUEtiapine 50 MG TAB PO STA (14:42)
[2024-03-06 15:11] LABS: Protein, Total 7.7 g/dL (6.2-8.2)
[2024-03-06] MEDS ORDERED: LORazepam 2 MG/ML INJ IV PRN ×2 (15:35)
[2024-03-06] MEDS ORDERED: LORazepam 0.5 MG TAB PO PRN (15:35)
[2024-03-06] MEDS ORDERED: LORazepam 1 MG TAB PO PRN (15:35)
[2024-03-06] MEDS: LORazepam 2 MG/ML INJ IV PRN ×3 (15:45→22:13)
[2024-03-06 17:30] LABS: Glucose,Whole Blood 108 mg/dL (70-110)
--- NOTE | 2024-03-06 18:34 | P.PN ---
Subjective Progress Note Date: 03/06/24 Hospital course: Patient is a pleasant 59-year-old male with a past medical history of hypertension, hyperlipidemia, liver cirrhosis, [id number] diabetes mellitus, chronic kidney disease stage IIIb, anxiety, bipolar disorder, depre ssion, PTSD, and schizoaffective disorder. He presented to the emergency department after being brought in by the police after being found wandering downtown in his underwear and T-shirt with no shoes. Patient alert to self only and unable to provide meaningful history. He does deny having any pain or complaints at this time. Patient noted to have multiple muscle fasciculations to bilateral upper extremities and continuous pill-rolling behavior of bilateral hands. He is very fidgety and unable to sit still. He denies any alcohol or drug use and denies taking any prescription or nonprescription pills. Patient is able to be redirected and follows commands. Pupils dilated. He underwent evaluation in the emergency department. Vital signs upon arrival show blood pressure 139/114, heart rate 123, respiratory rate 20, temp 98.1 F, and SpO2 of 95% on room air. Blood glucose was 152. EKG completed showing sinus tachycardia 122 bpm with no significant T wave or ST abnormality showing no signs of acute ischemia upon personal review and interpretation. CT brain negative for acute intracranial process. Chest x-ray showing elevation of hemidiaphragm unchanged but negative for acute cardiopulmonary process. Labs completed and reviewed. CBC showing leukocytosis with WBC count of 17.2 and thrombocytosis with platelet count of 562. Coagulation profile normal findings. BMP revealing hyponatremia with sodium of 146, high anion gap metabolic acidosis with chloride of 108, bicarb 18, and anion gap of 20 along with acute kidney injury on CKD stage IIIb with BUN of 37, creatinine of 2.04, GFR of 35 baseline creatinine of 1.3. Blood glucose 152. Calcium was elevated at 10.9. Liver profile unremarkable. Ammonia levels were less than 9 and troponin was less than 0.012. Urinalysis positive for glucose and ketones but negative for blood or infection. Serum alcohol level was negative at less than 10. Urine drug screen was positive for tricyclic antidepressants and benzodiazepines otherwise negative. Patient admitted under our services for further workup with consultation to nephrology and psychiatry. Physical exam: Patient seen and fully evaluated at bedside this morning he continues to be very fidgety with upper and lower extremity fasciculations. He denies having any pain or complaints. Pupils no longer dilated and now reacting to light. Suspect withdraw, unclear type. Per nursing, psychiatrist states patient has history of huffing. Patient adamantly denies any prescription or drug use. Vital signs reviewed and stable. General: Nontoxic, no distress and appears stated age. Derm: Skin warm and dry, normal coloration for ethnicity. Head: Atraumatic, normocephalic and symmetric. Eyes: EOM's intact, no lid lag, and anicteric sclera. Mouth: no lip lesions, mucus membranes dry. no tounge protrusion or Cardiovascular: Tachycardic rate and regular rhythm with normal S1S2, no murmur, positive posterior tibial pulses bilaterally, and cap refill < 2 seconds. Lungs: Respirations even, regular, and unlabored on room air. Lungs CTA bilaterally, no rhonchi, no rales, no wheezing, and no accessory muscle usage. Abdominal: soft, nontender to palpation, no guarding, no appreciable organomegaly Ext: ROM intact. No gross muscle atrophy, no edema, no contractures Neuro: Speech clear, face symmetrical and CN II-XII grossly intact with no noted focal neuro deficits Psych: Alert and oriented to self only. Very fidgety with upper and lower extremity fasciculations. Anxious and paranoid affect. Assessment and Plan of Care: Acute delirium of unclear cause, possibly psychosis High anion gap metabolic acidosis Sinus tachycardia, likely secondary to acute delirium Leukocytosis and thrombocytosis -Acute metabolic encephalopathy of unclear cause. Patient does have extensive psychiatric history and current presentation is possibly secondary to polysu bstance abuse as patient is on multiple psychiatric medications including Patient also testing positive for benzodiazepines and has dilated pupils but is not prescribed. -Hold Provigil 200 mg daily, Lyrica 300 mg twice daily, Seroquel 100 mg nightly, BuSpar 15 mg twice daily, and Lexapro 20 mg daily pending evaluation by psychiatrist. -Continue gentle IV fluid hydration with D5 0.45% normal saline at 83 cc/h. -Continue telemetry monitoring. -Neurochecks every 4 hours. -Fall precautions and elopement precautions in place. -Consult placed to psychiatry secondary to patient's extensive psychiatric history and current presentation. -TSH normal findings at 3.600. Acute kidney injury on stage IIIb chronic kidney disease Hypernatremia Hypercalcemia -Nephrology following, discussed plan of care with Dr. Betts and he is discontinuing normal saline and starting patient on D5.45 at 83 cc/h. -Renal ultrasound completed and negative for hydronephrosis or acute process. -Hold nephrotoxic medications including losartan. Hypertension -Monitor vital signs. Continue propranolol 20 mg daily. Losartan held secondary to JACKIE. Hyperlipidemia -Continue pravastatin 40 mg nightly. Liver cirrhosis -Liver enzymes unremarkable and ammonia level is less than 9. [id number] diabetes mellitus -Hold oral medications and patient placed on glycemic protocol with NovoLog sliding scale. Data and Imaging reviewed: -Vital signs reviewed. Blood pressure 149/91, heart rate 109, respiratory rate 18, temp 98.5 F, and SpO2 of 98% on room air. -Renal ultrasound completed and negative for hydronephrosis or acute process. -Morning labs reviewed. Leukocytosis and thrombocytosis improving with WBC count of 12.4 and platelet count of 515. BMP showing sodium 147 and high anion gap metabolic acidosis with chloride of 114, bicarb of 17, and anion gap of 16 with improvement of renal function with BUN of 37, creatinine of 1.66, and GFR of 44. Calcium 10.5. Liver profile showing elevated AST of 68 otherwise normal findings. CODE STATUS: Full code DVT prophylaxis: Heparin Anticipated discharge date: Pending clinical course Anticipated discharge place: Pending clinical course Patient was seen independently by Nurse Practitioner. This document was prepared using [employer] dictation software. Please allow for errors in mobile engineer while rare they do occur. Patient was seen independently by Ajit Rudolph NP. I agree with the assessment and plan as above. Objective - Vital Signs Vital signs: Vital Signs Temp 98.5 F 03/06/24 07:00 Pulse 109 H 03/06/24 07:00 Resp 18 03/06/24 07:00 BP 149/91 03/06/24 07:00 Pulse Ox 98 03/06/24 07:00 FiO2 Intake & Output 03/05/24 03/06/24 03/06/24 18:59 06:59 18:59 Intake Total 850 60 Output Total 650 1160 Balance 200 -1100 Weight 81.647 kg 81.647 kg Intake: Intake, IV Titration 250 Amount Sodium Chloride 0.9% 1, 250 000 ml @ 100 mls/hr IV . Q10H ONE Rx#:[id number] Oral 600 60 Output: Urine 650 1160 Straight 650 580 Stool 0 Other: # Voids 0 - Labs CBC & Chem 7: 03/06/24 08:41 03/07/24 05:30 Labs: Abnormal Lab Results - Last 24 Hours (Table) 03/05/24 03/05/24 03/05/24 Range/Units 11:57 11:57 12:41 WBC 17.2 H (3.8-10.6) k/uL Plt Count 562 H (150-450) k/uL Neutrophils # 14.9 H (1.3-7.7) k/uL Sodium 146 H (137-145) mmol/L Chloride 108 H (98-107) mmol/L Carbon Dioxide 18 L (22-30) mmol/L BUN 37 H (9-20) mg/dL Creatinine 2.04 H (0.66-1.25) mg/dL Glucose 152 H (74-99) mg/dL POC Glucose (mg/dL) 130 H (70-110) mg/dL Calcium 10.9 H (8.4-10.2) mg/dL Albumin 5.1 H (3.5-5.0) g/dL Urine Protein (Negative) Urine Glucose (UA) (Negative) Urine Ketones (Negative) U Tricyclic Antidepress (NotDetected) U Benzodiazepines Scrn (NotDetected) 03/05/24 03/05/24 03/05/24 Range/Units 13:29 13:29 17:07 WBC (3.8-10.6) k/uL Plt Count (150-450) k/uL Neutrophils # (1.3-7.7) k/uL Sodium (137-145) mmol/L Chloride (98-107) mmol/L Carbon Dioxide (22-30) mmol/L BUN (9-20) mg/dL Creatinine (0.66-1.25) mg/dL Glucose (74-99) mg/dL POC Glucose (mg/dL) 155 H (70-110) mg/dL Calcium (8.4-10.2) mg/dL Albumin (3.5-5.0) g/dL Urine Protein Trace H (Negative) Urine Glucose (UA) 4+ H (Negative) Urine Ketones 1+ H (Negative) U Tricyclic Antidepress Detected H (NotDetected) U Benzodiazepines Scrn Detected H (NotDetected) 03/05/24 03/06/24 Range/Units 20:03 06:13 WBC (3.8-10.6) k/uL Plt Count (150-450) k/uL Neutrophils # (1.3-7.7) k/uL Sodium (137-145) mmol/L Chloride (98-107) mmol/L Carbon Dioxide (22-30) mmol/L BUN (9-20) mg/dL Creatinine (0.66-1.25) mg/dL Glucose (74-99) mg/dL POC Glucose (mg/dL) 121 H 128 H (70-110) mg/dL Calcium (8.4-10.2) mg/dL Albumin (3.5-5.0) g/dL Urine Protein (Negative) Urine Glucose (UA) (Negative) Urine Ketones (Negative) U Tricyclic Antidepress (NotDetected) U Benzodiazepines Scrn (NotDetected)
[2024-03-06 20:50] LABS: Glucose,Whole Blood 135 mg/dL (70-110)
[2024-03-06] MEDS: QUEtiapine 100 MG TAB PO SCH (21:04)
[2024-03-07 05:53] LABS: Glucose,Whole Blood 142 mg/dL (70-110)
[2024-03-07 08:08] VITALS: BP 104/72; PULSE 105; TEMP 97.8
[2024-03-07 09:16] LABS: BUN/Creat Ratio 20.88 Ratio (12.00-20.00); Blood Urea Nitrogen 35.5 mg/dL (9.0-27.0); Calcium 8.5 mg/dL (8.7-10.3); Carbon Dioxide 18.1 mmol/L (21.6-31.8); Chloride 104 mmol/L (96-109); Glucose 136 mg/dL (70-110); Magnesium 2.1 mg/dL (1.5-2.4); Potassium 3.8 mmol/L (3.5-5.5); Sodium 136 mmol/L (135-145)
[2024-03-07] MEDS ORDERED: SODIUM CHLORIDE 0.9% 1,000 ML IV SCH (11:00)
[2024-03-07] MEDS: LACTATED RINGERS 1,000 ML IV SCH (12:10)
[2024-03-07 12:14] LABS: Angiotensin-1 Converting Enz. 30 U/L (8-52)
[2024-03-07 12:17] LABS: Glucose,Whole Blood 122 mg/dL (70-110)
--- NOTE | 2024-03-07 12:28 | P.PN ---
Subjective Progress Note Date: 03/07/24 Principal diagnosis: JACKIE secondary to vasomotor nephropathy from hypovolemia Hospital course: Patient is 59 year old male who brought to the ED with altered mental status. We were consulted for JACKIE on CKD. He was found to have creatinine 2.04, Na 17, calcium 10.9, albumin 5.1, TSH 3.6, UA 1+ketones and 4+ glucose on admission with UDS positive for benzodiazepines and tricyclic antidepressants. 03/07/24 Patient seen today. He seems to be doing a lot better and notes improvement in food and water intake. Denies chest pain, abdominal pain, shortness of breath, lightheadedness and dizziness. He reports some weakness on standing up but associates that with back surgery that he got done a year ago. Labs today show Na 136, K 3.8, BUN 35.5, creatinine 1.7, GFR 46, bicarb 18.1, AG 13.90, calcium 8.5, PTH 30.5, Vit D 25 hydroxy 39.5 and salicylate <1.0. Objective - Vital Signs Vital signs: Vital Signs Temp 97.8 F 03/07/24 07:00 Pulse 105 H 03/07/24 07:00 Resp 20 03/07/24 07:00 BP 104/72 03/07/24 07:00 Pulse Ox 98 03/07/24 07:00 FiO2 Intake & Output 03/06/24 03/07/24 03/07/24 18:59 06:59 18:59 Intake Total 118 1163 240 Output Total 400 Balance -282 1163 240 Intake: Intake, IV Titration 913 Amount Dextrose 5% in Water 1, 913 000 ml @ 83 mls/hr IV . Q12H3M [facility] Rx#:[id number] Oral 118 250 240 Output: Urine 400 Other: Voiding Method Toilet Toilet Toilet # Voids 2 # Bowel Movements 0 - Exam General: nontoxic, no distress, appears at stated age, overweight Derm: warm, dry, intact HEENT: unremarkable Cardiovascular: S1 S2 reg, no murmur Lungs: CTA bilateral, no rhonchi, no rales, no accessory muscle use Abdominal: soft, non-tender to palpataion Extremities: no gross muscle atrophy, no edema Neuro: Alert, Oriented - Labs CBC & Chem 7: 03/06/24 08:41 03/07/24 05:30 Labs: Abnormal Lab Results - Last 24 Hours (Table) 03/06/24 03/06/24 03/06/24 Range/Units 08:41 12:11 20:48 Carbon Dioxide (21.6-31.8) mmol/L Anion Gap (4.00-12.00) mmol/L BUN (9.0-27.0) mg/dL Creatinine (0.6-1.5) mg/dL Est GFR (CKD-EPI) (>=60) BUN/Creatinine Ratio (12.00-20.00) Ratio Glucose (70-110) mg/dL POC Glucose (mg/dL) 163 H 135 H (70-110) mg/dL Hemoglobin A1c 6.8 H (<=6.0) % Calcium (8.7-10.3) mg/dL 03/07/24 03/07/24 Range/Units 05:30 05:52 Carbon Dioxide 18.1 L (21.6-31.8) mmol/L Anion Gap 13.90 H (4.00-12.00) mmol/L BUN 35.5 H (9.0-27.0) mg/dL Creatinine 1.7 H (0.6-1.5) mg/dL Est GFR (CKD-EPI) 46 L (>=60) BUN/Creatinine Ratio 20.88 H (12.00-20.00) Ratio Glucose 136 H (70-110) mg/dL POC Glucose (mg/dL) 142 H (70-110) mg/dL Hemoglobin A1c (<=6.0) % Calcium 8.5 L (8.7-10.3) mg/dL Assessment and Plan Assessment: Acute kidney injury secondary to vasomotor nephropathy from hypovolemia. C reatinine 2.04 on admission and is 1.7 today. No hydronephrosis noted on kidney ultrasound. Chronic kidney disease stage IIIa with baseline creatinine recently in the range of 1.3-1.5. Etiology is diabetic kidney disease and nephrosclerosis. Trace proteinuria noted on UA. Anion gap metabolic acidosis secondary to acute kidney injury. He was also on metformin and Jardiance which can cause acidosis. Additionally urine ketones were positive suggesting starvation ketosis. Additional component of nongap acidosis from IV fluids. Serum alcohol level negative. Volatile screen pending. Hypernatremia from lack of oral water intake. Na today 136. Resolved Hypercalcemia secondary to volume contraction. Corrected calcium for albumin is actually in the normal range. Ca today 8.5. TSH normal. PTH normal. Vit D normal. Resolved History of bipolar and schizoaffective disorder. Diabetes mellitus. Hypertension with chronic kidney disease. Plan: Change D5W to LR at 50 cc an hour. Encouraged oral intake, including free water. Monitor BMP I have seen and examined the patient with resident and agree with A&P as written. f/u with hyerpcalcemia workup.
[2024-03-07] MEDS: SODIUM BICARB 8.4% 50 ML SYR (1 MEQ/ML) IV STA (13:09)
[2024-03-07 14:00] VITALS: RESP 18
--- NOTE | 2024-03-07 14:54 | P.PN ---
Progress Note - Text Progress Note Date: 03/07/24 (') Interval history: Patient was seen today for psychiatric follow-up regarding patient's delirium and withdrawals. Nurse claims that patient has been asking about discharge today, is more lucid and cooperative today. She denied any behavioral issues with patient today. He was seen today by functional tester typewriters at the bedside. He claims that he is doing better, he recognize functional tester typewriters from yesterday. He was alert and oriented x 3 today. Appears to be more logical, thoughts are more organized today. He spoke about the events prior to coming into the hospital states that he was just doing laundry when he took off his pants, claims that he does not know what occurred afterwards. He adamantly denies any relapses with alcohol or marijuana or any other drugs including inhalants. He states that he has been clean for several months now sober from substances. He was future oriented claims that he wants to go home and get back to work and claims that he keeps busy during the day. Denies any depression or anxiety at this time. Claims that he slept fairly last night. Denying any auditory or visual hallucinations. Denying any suicidal homicidal ideations intent or plan. Sand System Operator's spoke with patient's sister Bia over the phone, nurse and patient were in the room during the phone call. She claims that he usually keeps in good contact with them, states that his home environment is safe and he also has a friend that sees him more regularly and will check in on him. She claims that she will also check in on him once she is done work today, claims that there is no guns or weapons in the house. She feels comfortable with a discharge today if he is released from the hospital. We spoke about follow-up with [facility] and patient agreed to this. MENTAL STATUS EXAM: General Appearance: Patient appears to be bald, has a goatee, several tattoos, stated age is alert, cooperative. Patient appears to have fair hygiene and grooming wearing hospital gown with fair eye contact. Behavior: Patient is calmly lying in bed, more cooperative today Mood/Affect: Patient reports their mood is "fine", affect is congruent Suicidality/Homicidality: Patient denies having any suicidal or homicidal ideation intent or plan. Perceptions: Patient denies any visual hallucinations and denies any auditory h allucinations Though content/process: More logical today, future oriented. Denies any delusions or paranoia. Memory and concentration: AOX3, improving attention span. Can spell "WORLD" backwards Judgment and insight: Improved IMPRESSIONS: Delirium unknown etiology, resolved History of bipolar disorder Generalized anxiety disorder with panic attacks History of inhalant abuse Nicotine dependence PLAN: -At this time patient DOES NOT meet criteria for inpatient psychiatric admission. -Would recommend the following medication changes/additions: Continue with 100 mg nightly of Seroquel for mood stabilization/sleep, Lexapro 10 mg daily for mood/anxiety, BuSpar 10 mg twice daily for anxiety. -social group worker to provide patient substance use treatment resources including AA/NA meetings in the community. -social group worker to provide patient with access line number to call for inpatient substance rehab -Patient states that he currently follows up as an outpatient with [facility] she was encouraged to do so within 1 to 2 weeks. -Communicated plan to patient's nurse -Psychiatry will sign off. -Please contact with any questions.
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
[2024-03-07 20:05] LABS: Vitamin D, 1, 25-Dihydroxy 57 pg/mL (20 - 79)
[2024-03-17 15:10] LABS: Albumin 4.47 g/dL (3.80-4.90)
== END 2024-03-07 15:13 | disposition home or self-care (01) ==
LOC: EC 11:09 → 6NMEDSUR 14:27
PROVIDERS: ADMIT Student in an Organized Health Care Education/Training Program; ATTEND Student in an Organized Health Care Education/Training Program
DX: R41.82 Altered mental status, unspecified (principal); I12.9 Hypertensive chronic kidney disease with stage 1 through stage 4 chronic kidney disease, or unspecified chronic kidney disease; E11.22 Type 2 diabetes mellitus with diabetic chronic kidney disease; N18.32 Chronic kidney disease, stage 3b; N17.9 Acute kidney failure, unspecified; E87.29 Other acidosis; E86.1 Hypovolemia; G93.40 Encephalopathy, unspecified; E87.1 Hypo-osmolality and hyponatremia; E87.0 Hyperosmolality and hypernatremia; E83.52 Hypercalcemia; D75.839 Thrombocytosis, unspecified; D72.829 Elevated white blood cell count, unspecified; E11.40 Type 2 diabetes mellitus with diabetic neuropathy, unspecified; K74.60 Unspecified cirrhosis of liver; K21.9 Gastro-esophageal reflux disease without esophagitis; F43.10 Post-traumatic stress disorder, unspecified; F41.1 Generalized anxiety disorder; F41.0 Panic disorder [episodic paroxysmal anxiety]; F40.10 Social phobia, unspecified; E78.5 Hyperlipidemia, unspecified; F31.9 Bipolar disorder, unspecified; F25.9 Schizoaffective disorder, unspecified; F17.200 Nicotine dependence, unspecified, uncomplicated; F19.10 Other psychoactive substance abuse, uncomplicated; Z79.899 Other long term (current) drug therapy; Z79.85 Long-term (current) use of injectable non-insulin antidiabetic drugs; Z79.84 Long term (current) use of oral hypoglycemic drugs; Z79.82 Long term (current) use of aspirin; Z79.1 Long term (current) use of non-steroidal anti-inflammatories (NSAID)
CPT/HCPCS: 96376 ×2; 96361 ×2; 96372 ×2; 96374; 96375 ×2; 99285; 36415; 93005; 36410; 76937; 82652; 80053 ×2; 80048; 84443; 82140; 82164; 83735 ×2; 84484; 85025; 85027; 85610; 85730; 81003; 84165; 82306; 80306; 83970; 86334; 83036; 80179; 71046; 76770; 70450; G0378 ×3; G0480; J2060 ×2; J1644 ×2; J2405; 80320; 84600

== ENCOUNTER → 2024-03-20 | Outpatient (CLI) | payer MEDICARE, OTHER ==
[2024-03-20 12:48] LABS: Creatinine,Urine Random 93.7 mg/dL; Protein/Creatinine Ratio,Urine 0.107
[2024-03-20 16:33] LABS: HCT 39.6 % (39.6-50.0); HGB 12.5 g/dL (13.0-17.0); MCH 28.3 pg (27.0-32.0); MCHC 31.6 g/dL (32.0-37.0); MCV 89.6 FL (80.0-97.0); Mean Platelet Volume 10.3 FL (9.5-12.2); NRBC Per 100 WBC 0 X 10*3/uL (0.00-0.01); Platelet Count 377 X 10*3/uL (140-440); RBC 4.42 X 10*6/uL (4.40-5.60); RDW 13.9 % (11.5-14.5); WBC 10.95 X 10*3/uL (4.50-10.00)
[2024-03-20 16:46] LABS: ALT 24 U/L (10-49); AST 22 U/L (14-35); Albumin 4.5 g/dL (3.8-4.9); Albumin/Globulin Ratio 1.67 Ratio (1.60-3.17); Alkaline Phosphatase 64 U/L (41-126); BUN/Creat Ratio 17.41 Ratio (12.00-20.00); Blood Urea Nitrogen 29.6 mg/dL (9.0-27.0); Calcium 9.6 mg/dL (8.7-10.3); Carbon Dioxide 23.3 mmol/L (21.6-31.8); Chloride 100 mmol/L (96-109); Globulin 2.7 g/dL (1.6-3.3); Glucose 96 mg/dL (70-110); Magnesium 2.3 mg/dL (1.5-2.4); Potassium 4.5 mmol/L (3.5-5.5); Sodium 138 mmol/L (135-145); Total Bilirubin <0.2 mg/dL (0.3-1.2); Total Protein 7.2 g/dL (6.2-8.2)
[2024-03-20 18:49] LABS: Appearance,Urine Clear (Clear); Bilirubin,Urine Negative (Negative); Blood,Urine Negative (Negative); Color,Urine Dark Yellow (Yellow); Ketones,Urine Negative (Negative); Nitrite,Urine Negative (Negative); PH, Urine 5.5; Specific Gravity,Urine 1.024 (1.001-1.030); Urobilinogen,Urine 0.2 E.U./DL
[2024-03-20 23:31] LABS: Microalbumin Creatinine Ratio <12 mg/g Cr (0-30); Urine Creatinine 99.1 mg/dL (39.0-259.0)
== END | disposition home or self-care (01) ==
LOC: LABWHC1 11:04
PROVIDERS: ATTEND Nurse Practitioner Acute Care
CPT/HCPCS: 36415; 80053; 81003; 82043; 82570; 83735; 84100; 84156; 85027

== ENCOUNTER 2024-03-28 16:32 | Emergency (ER) | payer MEDICARE, OTHER ==
[2024-03-28 16:39] VITALS: RESP 18
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
[2024-03-28] MEDS: SODIUM CHLORIDE 0.9% 1,000 ML IV STA ×2 (17:37→19:55)
[2024-03-28] MEDS: HYDROmorphone 2 MG/ML 1 ML SYRINGE IVP STA (17:37)
[2024-03-28 17:39] VITALS: TEMP 98.3
[2024-03-28 17:41] LABS: Basophils # (A) 0.1 k/uL (0-0.2); Basophils % (A) 1 %; Eosinophils # (A) 0.5 k/uL (0-0.7); Eosinophils % (A) 5 %; HCT 35.8 % (39.0-53.0); HGB 11.7 gm/dL (13.0-17.5); Lymphocytes # (A) 2.2 k/uL (1.0-4.8); Lymphocytes % (A) 24 %; MCH 28.9 pg (25.0-35.0); MCHC 32.8 g/dL (31.0-37.0); MCV 88.3 fL (80.0-100.0); Mean Platelet Volume 6.8; Monocytes # (A) 0.4 k/uL (0-1.0); Monocytes % (A) 5 %; Neutrophils # (A) 5.5 k/uL (1.3-7.7); Neutrophils % (A) 61 %; Platelet Count 515 k/uL (150-450); RBC 4.06 m/uL (4.30-5.90); RDW 13.4 % (11.5-15.5)
[2024-03-28 17:52] LABS: ALT 18 U/L (4-49); AST 24 U/L (17-59); African American GFR (CKD) 44 (>60 ml/min/1.73 sqM); Albumin 4.1 g/dL (3.5-5.0); Alcohol <10 mg/dL; Alkaline Phosphatase 49 U/L (38-126); Anion Gap 10 mmol/L; Blood Urea Nitrogen 29 mg/dL (9-20); Carbon Dioxide 25 mmol/L (22-30); Chloride 102 mmol/L (98-107); Glucose 107 mg/dL (74-99); Non-African American GFR(CKD) 38 (>60 ml/min/1.73 sqM); Potassium 4.7 mmol/L (3.5-5.1); Sodium 137 mmol/L (137-145); Total Bilirubin 0.3 mg/dL (0.2-1.3); Total Protein 6.7 g/dL (6.3-8.2)
[2024-03-28 18:06] LABS: Partial Thromboplastin Time 21.8 sec (22.0-30.0)
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
--- NOTE | 2024-03-28 19:43 | CT ---
EXAMINATION TYPE: CT ChestAbdPelvis w con DATE OF EXAM: 03/28/2024 7:03 PM COMPARISON: None CLINICAL INDICATION: Male, 59 years old with history of trauma; pain Technique: CT ChestAbdPelvis w con; Multiple axial images were obtained. Two-dimensional coronal and sagittal reconstructions were obtained. Contrast used:100ml mL of Isovue 300 with IV Contrast, (None if empty) Oral contrast used: without Oral Contrast CT DLP: 1668.1 mGycm, Automated exposure control for dose reduction was used. Findings: CHEST: LUNGS/ PLEURA: No focal consolidation, pneumothorax or pleural effusion. AIRWAY: Patent and unremarkable. HEART: Size within normal limits. MEDIASTINUM: No gross evidence of adenopathy. VASCULATURE: No aortic aneurysm. MUSCULOSKELETAL: No acute osseous abnormalities. SOFT TISSUES/LYMPH NODES: Unremarkable. LOWER NECK: No significant findings. ABDOMEN: ABDOMEN LIVER: Unremarkable GALLBLADDER AND BILE DUCTS: Unremarkable. PANCREAS: Unremarkable. SPLEEN: Unremarkable. ADRENAL GLANDS: Unremarkable. KIDNEYS AND URETERS: No evidence of hydronephrosis or renal calculus. The ureters are unremarkable. PELVIS Limited evaluation due to streak artifact from hip prostheses. BLADDER: Unremarkable REPRODUCTIVE: Unremarkable. ABDOMEN & PELVIS STOMACH AND BOWEL: No evidence of bowel obstruction. Moderate to large amount stool throughout the co ileana. PERITONEUM/RETROPERITONEUM: No evidence of pneumoperitoneum or free fluid. VASCULATURE: No evidence of aortic aneurysm. MUSCULOSKELETAL: No acute osseous abnormalities, bilateral hip arthroplasties with hardware appearing intact. Sacroiliac joint in fixation hardware in the spine appear intact. LYMPH NODES: No gross evidence for lymphadenopathy. SOFT TISSUE/ABDOMINAL WALL: Unremarkable IMPRESSION: 1. No evidence for acute thoracic or abdominal process. 2. Fixation hardware in the spine, sacroiliac joints and bilateral hip arthroplasties all appear int act. 3. Moderate to large amount stool throughout the colon. [facility], , 03/28/2024 7:41 PM
[2024-03-28] MEDS ORDERED: ACET/COD 300 MG/30 MG STARTER PACK 6 TAB BTL PO STA (20:08)
[2024-03-28 20:15] LABS: Amphetamine Screen,Urine Not Detected (NotDetected); Barbiturate Screen,Urine Not Detected (NotDetected); Benzodiazepines Screen,Urine Not Detected (NotDetected); Cocaine Screen,Urine Not Detected (NotDetected); Methadone Screen, Urine Not Detected (NotDetected); Opiate Screen,Urine Detected (NotDetected); Oxycodone Screen, Urine Not Detected (NotDetected); Phencyclidine Screen,Urine Not Detected (NotDetected); Tricyclic Antidepressant,Urine Detected (NotDetected); Urn Cannabinoid Scrn Not Detected (NotDetected)
[2024-03-28 20:22] VITALS: BP 114/73; PULSE 86
== END 2024-03-28 20:20 | disposition home or self-care (01) ==
LOC: EC 16:32
DX: M25.552 Pain in left hip (principal); M54.9 Dorsalgia, unspecified; F17.290 Nicotine dependence, other tobacco product, uncomplicated; Z88.8 Allergy status to other drugs, medicaments and biological substances; V89.2XXA Person injured in unspecified motor-vehicle accident, traffic, initial encounter; Y92.411 Interstate highway as the place of occurrence of the external cause
CPT/HCPCS: 36415; 93005; 86900; 86901; 80053; 83605; 84484; 85025; 85610; 85730; 86850; 80306; 72125; 70450; 71260; 74177; 99285; 96374; 96361; G0480; J1171; Q9967; 80320

== ENCOUNTER 2024-04-02 18:19 | Inpatient (IN) | payer MEDICARE, OTHER ==
[2024-04-02 19:31] LABS: Glucose,Whole Blood 130 mg/dL (70-110)
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
[2024-04-02 19:48] LABS: Basophils # (A) 0.1 k/uL (0-0.2); Basophils % (A) 0 %; Eosinophils # (A) 0.1 k/uL (0-0.7); Eosinophils % (A) 1 %; HCT 44.2 % (39.0-53.0); HGB 14.1 gm/dL (13.0-17.5); Lymphocytes # (A) 2.4 k/uL (1.0-4.8); Lymphocytes % (A) 15 %; MCH 28.4 pg (25.0-35.0); MCHC 31.9 g/dL (31.0-37.0); MCV 89.1 fL (80.0-100.0); Mean Platelet Volume 6.4; Monocytes # (A) 0.9 k/uL (0-1.0); Monocytes % (A) 5 %; Neutrophils # (A) 12.2 k/uL (1.3-7.7); Neutrophils % (A) 76 %; Platelet Count 691 k/uL (150-450); RBC 4.96 m/uL (4.30-5.90); RDW 13.5 % (11.5-15.5)
[2024-04-02 19:59] LABS: Partial Thromboplastin Time 24.3 sec (22.0-30.0); Prothrombin Time 11.1 sec (10.0-12.5)
[2024-04-02] MEDS: SODIUM CHLORIDE 0.9% 1,000 ML IV ONE ×2 (20:03→23:11)
[2024-04-02 20:19] LABS: ALT 21 U/L (4-49); AST 28 U/L (17-59); African American GFR (CKD) 45 (>60 ml/min/1.73 sqM); Alkaline Phosphatase 76 U/L (38-126); Anion Gap 22 mmol/L; Blood Urea Nitrogen 32 mg/dL (9-20); Calcium 10.4 mg/dL (8.4-10.2); Carbon Dioxide 11 mmol/L (22-30); Chloride 110 mmol/L (98-107); Glucose 126 mg/dL (74-99); Non-African American GFR(CKD) 39 (>60 ml/min/1.73 sqM); Potassium 4.4 mmol/L (3.5-5.1); Sodium 143 mmol/L (137-145); Total Bilirubin 0.8 mg/dL (0.2-1.3); Total Protein 8.2 g/dL (6.3-8.2)
--- NOTE | 2024-04-02 20:45 | CT ---
EXAMINATION TYPE: CT brain wo con DATE OF EXAM: 04/02/2024 7:50 PM COMPARISON: 03/28/2024.. CLINICAL INDICATION: Male, 59 years old with history of Altered mental status, ams TECHNIQUE: Brain: Axial CT images of the brain were obtained with coronal and sagittal reformats created and rev iewed. Contrast used: None. Oral contrast used: None. CT DLP: 1286 mGycm, Automated exposure control for dose reduction was used. FINDINGS: Brain: Extra-axial spaces: No abnormal extra-axial fluid collections. Ventricular system: Within normal limits Cerebral parenchyma: No acute intraparenchymal hemorrhage or mass effect. The troncoso-white junction is well differentiated. Cerebellum: Unremarkable. Mass effect: No evidence of midline shift. Intracranial vasculature: unremarkable Soft tissues: Normal. Calvarium/osseous structures: No depressed skull fracture. Paranasal sinuses and mastoid air cells: Mild scattered paranasal sinus disease. Visualized orbits: Bilaterally aphakia. IMPRESSION: No acute intracranial process. [facility], , 04/02/2024 8:42 PM
--- NOTE | 2024-04-02 20:45 | XR ---
EXAMINATION TYPE: XR chest 2V DATE OF EXAM: 04/02/2024 7:54 PM COMPARISON: Chest radiographs from 03/05/2024 CLINICAL INDICATION: Male, 59 years old with history of altered mental status; MERGED WITH [facility] TECHNIQUE: XR chest 2V Frontal and lateral views of the chest. FINDINGS: Lungs/Pleura: There is no evidence of pleural effusion, focal consolidation, or pneumothorax. Pulmonary vascularity: Unremarkable. Heart/mediastinum: Cardiomediastinal silhouette is unremarkable. Musculoskeletal: No acute osseous pathology. IMPRESSION: No acute cardiopulmonary disease/process. [facility], , 04/02/2024 8:43 PM
[2024-04-02 21:58] LABS: Amphetamine Screen,Urine Not Detected (NotDetected); Benzodiazepines Screen,Urine Not Detected (NotDetected); Cocaine Screen,Urine Not Detected (NotDetected); Opiate Screen,Urine Not Detected (NotDetected); Phencyclidine Screen,Urine Not Detected (NotDetected)
[2024-04-02 21:59] LABS: Barbiturate Screen,Urine Not Detected (NotDetected); Methadone Screen, Urine Not Detected (NotDetected); Oxycodone Screen, Urine Not Detected (NotDetected); Tricyclic Antidepressant,Urine Detected (NotDetected); Urn Cannabinoid Scrn Not Detected (NotDetected)
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
[2024-04-02 22:53] LABS: Appearance,Urine Clear (Clear); Bilirubin,Urine Negative (Negative); Blood,Urine Negative (Negative); Color,Urine Yellow; Glucose,Urine (UA) 4+ (Negative); Leukocyte Esterase,Urine Negative (Negative); Nitrite,Urine Negative (Negative); PH, Urine 7.5 (5.0-8.0); Protein,Urine Trace (Negative); Specific Gravity,Urine 1.026 (1.001-1.035); Urobilinogen,Urine <2.0 mg/dL (<2.0)
[2024-04-02] MEDS: LORazepam 2 MG/ML INJ IV STA (23:09)
[2024-04-02 23:47] LABS: African American GFR (CKD) 47 (>60 ml/min/1.73 sqM); Anion Gap 24 mmol/L; Blood Urea Nitrogen 32 mg/dL (9-20); Calcium 9.8 mg/dL (8.4-10.2); Chloride 109 mmol/L (98-107); Glucose 148 mg/dL (74-99); Non-African American GFR(CKD) 41 (>60 ml/min/1.73 sqM); Potassium 4.2 mmol/L (3.5-5.1); Sodium 141 mmol/L (137-145)
[2024-04-02 23:47] LABS: Ketones,Urine 2+ (Negative)
[2024-04-02 23:53] LABS: Glucose,Whole Blood 134 mg/dL (70-110)
[2024-04-02] MEDS ORDERED: CYCLOBENZAPRINE 10 MG TAB PO PRN (23:59)
[2024-04-03 00:02] LABS: Carbon Dioxide 8 mmol/L (22-30)
[2024-04-03] MEDS: LORazepam 2 MG/ML INJ IV PRN ×3 (00:27→07:34)
[2024-04-03] MEDS: DEXTROSE 5%-0.9% NACL 1,000 ML IV SCH ×2 (00:30→02:00)
[2024-04-03] MEDS: THIAMINE 100 MG/ML 2 ML VIAL IM STA (00:33)
[2024-04-03] MEDS: LORazepam 2 MG/ML INJ IV STA (01:07)
[2024-04-03 01:08] LABS: ABG Base Excess -7.9 mmol/L; ABG HCO3 14 mmol/L (21-25); ABG Oxygen Saturation 96.8 % (94-97); ABG PCO2 20 mmHg (35-45); ABG PH 7.45 (7.35-7.45); ABG PO2 92 mmHg (83-108); ABG TCO2 15 mmol/L (19-24); Allen Test Performed? Yes
[2024-04-03 01:55] LABS: Glucose,Whole Blood 153 mg/dL (70-110)
[2024-04-03] MEDS: SODIUM CHLORIDE 0.9% 1,000 ML IV ONE (02:12)
[2024-04-03] MEDS: INSULIN REGULAR 100 UNIT in SODIUM CHLORIDE 0.9% 100 ML IV SCH (02:14)
[2024-04-03 02:59] LABS: Glucose,Whole Blood 101 mg/dL (70-110)
[2024-04-03] MEDS ORDERED: DEXTROSE 50% SYRINGE 50 ML IVP PRN (03:40)
[2024-04-03 03:44] LABS: Glucose,Whole Blood 65 mg/dL (70-110)
[2024-04-03 04:07] LABS: Glucose,Whole Blood 101 mg/dL (70-110)
[2024-04-03] MEDS ORDERED: VANCOMYCIN IV PER PHARMACY 1 EACH MISC MISCELLANE PRN (04:15)
[2024-04-03 04:32] LABS: HCT 38.4 % (39.0-53.0); HGB 12.2 gm/dL (13.0-17.5); MCH 28.4 pg (25.0-35.0); MCHC 31.9 g/dL (31.0-37.0); Mean Platelet Volume 7.2; Platelet Count 608 k/uL (150-450); RBC 4.31 m/uL (4.30-5.90); RDW 13.9 % (11.5-15.5); WBC 12.9 k/uL (3.8-10.6)
[2024-04-03 04:48] LABS: ALT 19 U/L (4-49); AST 28 U/L (17-59); Albumin 4.2 g/dL (3.5-5.0); Alkaline Phosphatase 75 U/L (38-126); Salicylate <1.0 mg/dL; Total Bilirubin 0.6 mg/dL (0.2-1.3)
[2024-04-03 04:55] LABS: Glucose,Whole Blood 123 mg/dL (70-110)
[2024-04-03] MEDS: PIPERACILLIN-TAZOBACTAM 3.375 GM in SODIUM CHLORIDE 0.9% 100 ML IVPB SCH (05:07)
[2024-04-03 05:09] LABS: Band Neutrophils % 3 %; Lymphocytes # (M) 1.81 k/uL (1.0-4.8); Monocytes # (M) 1.16 k/uL (0-1.0); Neutrophils % (M) 74 %; Nucleated Red Blood Cells 0 /100 WBC (0-0); Total Cells Counted 100
[2024-04-03 05:10] LABS: Toxic Granulation Present; Toxic Vacuolation Present
[2024-04-03 05:35] LABS: African American GFR (CKD) 51 (>60 ml/min/1.73 sqM); Anion Gap 14 mmol/L; Blood Urea Nitrogen 31 mg/dL (9-20); Calcium 9.2 mg/dL (8.4-10.2); Carbon Dioxide 13 mmol/L (22-30); Chloride 119 mmol/L (98-107); Glucose 90 mg/dL (74-99); Non-African American GFR(CKD) 44 (>60 ml/min/1.73 sqM); Potassium 4.3 mmol/L (3.5-5.1); Sodium 146 mmol/L (137-145)
[2024-04-03 05:52] LABS: T4, Free (Free Thyroxine) 1.33 ng/dL (0.78-2.19)
[2024-04-03 06:02] LABS: Glucose,Whole Blood 146 mg/dL (70-110)
[2024-04-03] MEDS: VANCOMYCIN 1,500 MG in SODIUM CHLORIDE 0.9% 500 ML 500 ML IVPB ONE (06:23)
[2024-04-03 06:52] LABS: Glucose,Whole Blood 153 mg/dL (70-110)
[2024-04-03 07:20] LABS: Glucose,Whole Blood 146 mg/dL (70-110)
[2024-04-03] MEDS: INSULIN ASPART (NovoLOG) 100 UNIT/ML VIAL SQ SCH (07:24)
[2024-04-03] MEDS: GABAPENTIN 400 MG CAP PO SCH (07:35)
[2024-04-03] MEDS: FAMOTIDINE 20 MG TAB PO SCH (07:35)
[2024-04-03] MEDS: MULTIVITAMINS, THERA 1 EACH TAB PO SCH (07:35)
[2024-04-03] MEDS: PANTOPRAZOLE 40 MG TABLET PO SCH (07:35)
[2024-04-03] MEDS: PROPRANOLOL 20 MG TAB PO SCH (07:36)
[2024-04-03] MEDS: HEPARIN SODIUM,PORCINE 5,000 UNIT/ML 1 ML VIAL SQ SCH (07:36)
[2024-04-03 07:53] LABS: VBG PH 7.35 (7.31-7.41)
[2024-04-03] MEDS ORDERED: ENOXAPARIN 40 MG/0.4 ML SYRINGE SQ SCH (09:00)
[2024-04-03] MEDS: AMPICILLIN 2,000 MG in SODIUM CHLORIDE 0.9% 100 ML IVPB SCH (09:39)
[2024-04-03] MEDS: GABAPENTIN 300 MG CAP PO SCH (09:43)
[2024-04-03] MEDS: BACLOFEN 10 MG TAB PO SCH (09:43)
[2024-04-03 09:56] LABS: Glucose,Whole Blood 136 mg/dL (70-110)
[2024-04-03 10:50] LABS: African American GFR (CKD) 67 (>60 ml/min/1.73 sqM); Alcohol <10 mg/dL; Anion Gap 12 mmol/L; Blood Urea Nitrogen 22 mg/dL (9-20); Calcium 7.6 mg/dL (8.4-10.2); Carbon Dioxide 11 mmol/L (22-30); Chloride 121 mmol/L (98-107); Glucose 116 mg/dL (74-99); Non-African American GFR(CKD) 58 (>60 ml/min/1.73 sqM); Potassium 3.8 mmol/L (3.5-5.1); Sodium 144 mmol/L (137-145)
--- NOTE | 2024-04-03 10:58 | P.PN ---
Subjective Progress Note Date: 04/03/24 Subjective: Patient seen and examined at the bedside. Patient continued to be stable with confusion and AO x 1. Continues to endorse diffuse tremors. ROS: Patient unable to provide any reasonable history. Objective: Vital signs reviewed. General: non toxic, nondistressed, older than stated age Derm: no unusual rashes/lesions, warm Head: atraumatic, normocephalic, symmetric Eyes: EOMI, no lid lag, anicteric sclera, pupils equal round reactive to light ENT: Nose and ears atraumatic Neck: No cervical lymphadenopathy, trachea midline, supple, no nuchal rigidity noted, Brudzinski sign negative Mouth: no lip lesion, mucus membranes moist Cardiovascular: S1S2 reg, no murmur, positive dorsalis pedis pulse bilateral, no edema Lungs: CTA bilateral, no rhonchi, no rales, no accessory muscle use Abdominal: soft, nontender to palpation, no guarding Ext: muscle strength 5 out of 5 in all 4 extremities grossly, no gross muscle atrophy, no contractures, Neuro: CN II-XI grossly intact, no gross focal neuro deficits, upper and lower extremity tremors diffuse, lip smacking noted. Psych: AO x 1, oriented to himself only Data reviewed today: Labs: WBC 12.9, hemoglobin 12.2, hematocrit 38.4, platelet count 608, band neutrophils 3%, toxic granulation present, toxic vacuolation present, sodium 146, potassium 4.3, chloride 119, bicarb 13, anion gap 14, BUN 31, creatinine 1.68, CRP 1.9, TSH 4.7, free T4 1.33 Images: No new imaging Assessment and Plan: 59-year-old male with a past medical history of diabetes mellitus, hypertension, mood disorder, and hyperlipidemia presents with symptoms of altered mental status. Patient is admitted to the internal medicine service for further workup of current altered state. #Acute toxic-metabolic encephalopathy #Polypharmacy #High anion gap metabolic acidosis with unclear etiology (broad differential includes: euglycemic DKA, substance abuse, starvation ketosis, delirium tremens, sepsis, seratonin syndrome, volatile poisoning) CIWA protocol Daily thiamine 100 mg p.o. Continue with D5 NS 200 ml/hr. Blood glucose monitoring q1h. Insulin sliding scale. Hold home oral hypoglycemics. BMP q4h. Lactic acid 1.[address] and chest x-ray in the ED were noncontributory Neurology on consult, TSH 4.78 with free T4 of 1.33, vitamin B12 is pending Order serum alcohol level Check serum osmolality Order volatiles screening Fall precautions Low threshold for seizures, seizure precautions Psychiatry consulted #SIRS, without obvious infectious etiology WBC 16 and neutrophils 12.2 CXR shows no acute cardiopulmonary process Patient poor historian but denies dysuria Left shift with neutrophilic bands 3%, order procalcitonin Suspicion for encephilitis/meningitis in the setting of toxic metabolic enc ephalopathy of unclear etiology Starting ceftriaxone 2 g IVPB every 12 hours, ampicillin 2 g IV every 4 hour and vancomycin 1.5 g IVP every 16 hour Neurology on board, consider LP PCR test for COVID-19 # Acute kidney injury No episodes of hypotension since admission, on losartan at home, no other nephrotoxic agents and home medication list. Creatinine 1.68, improving Continue IV fluids as above Continue to monitor Chronic: #Hypertension: Hold home losartan in setting of JACKIE #Hyperlipidemia: Continue home medications F: D5 NS 200 ml/hr E: None N: Regular diet A: Normally ambulates unassisted at home DVT ppx: Heparin subq GI ppx: Famotidine 40 mg p.o. daily Code Status: Not identified yet Anticipated discharge place: Pending clinical course Anticipated discharge date: Pending clinical course I have seen and evaluated the patient today. Discussed with the resident and agree with the residents finding and plan as documented in the resident's note. Changes highlighted in blue font. Objective - Vital Signs Vital signs: Vital Signs Temp 97.3 F L 04/02/24 23:04 Pulse 105 H 04/03/24 09:54 Resp 21 04/03/24 09:54 BP 118/62 04/03/24 09:54 Pulse Ox 98 04/03/24 09:54 FiO2 Intake & Output 04/02/24 04/03/24 04/03/24 18:59 06:59 18:59 Intake Total 8.074 Output Total 750 Balance -741.926 Weight 68.039 kg Intake: Intake, IV Titration 8.074 Amount Insulin Regular 100 unit 8.074 In Sodium Chloride 0.9% 100 ml @ 0.1 UNITS/KG/HR 6.872 mls/hr IV .[id number] Rx#:[id number] Output: Urine 750 Straight 750 - Labs CBC & Chem 7: 04/03/24 04:07 04/03/24 10:09 Labs: Abnormal Lab Results - Last 24 Hours (Table) 04/02/24 04/02/24 04/02/24 Range/Units 19:30 19:34 19:34 WBC 16.0 H (3.8-10.6) k/uL Hgb (13.0-17.5) gm/dL Hct (39.0-53.0) % Plt Count 691 H (150-450) k/uL Neutrophils # 12.2 H (1.3-7.7) k/uL Neutrophils # (Manual) (1.3-7.7) k/uL Monocytes # (Manual) (0-1.0) k/uL ABG pCO2 (35-45) mmHg ABG HCO3 (21-25) mmol/L ABG Total CO2 (19-24) mmol/L VBG pCO2 (37-51) mmHg VBG HCO3 (24-28) mmol/L Hemoglobin (13.0-17.5) gm/dL Sodium (137-145) mmol/L Chloride 110 H (98-107) mmol/L Carbon Dioxide 11 L (22-30) mmol/L BUN 32 H (9-20) mg/dL Creatinine 1.84 H (0.66-1.25) mg/dL Glucose 126 H (74-99) mg/dL POC Glucose (mg/dL) 130 H (70-110) mg/dL Calcium 10.4 H (8.4-10.2) mg/dL C-Reactive Protein (0.00-0.80) mg/dL TSH (0.465-4.680) mIU/L Urine Protein (Negative) Urine Glucose (UA) (Negative) Urine Ketones (Negative) U Tricyclic Antidepress (NotDetected) SARS-CoV-2 (PCR) (Not Detectd) 04/02/24 04/02/24 04/02/24 Range/Units 21:21 21:21 23:08 WBC (3.8-10.6) k/uL Hgb (13.0-17.5) gm/dL Hct (39.0-53.0) % Plt Count (150-450) k/uL Neutrophils # (1.3-7.7) k/uL Neutrophils # (Manual) (1.3-7.7) k/uL Monocytes # (Manual) (0-1.0) k/uL ABG pCO2 (35-45) mmHg ABG HCO3 (21-25) mmol/L ABG Total CO2 (19-24) mmol/L VBG pCO2 (37-51) mmHg VBG HCO3 (24-28) mmol/L Hemoglobin (13.0-17.5) gm/dL Sodium (137-145) mmol/L Chloride 109 H (98-107) mmol/L Carbon Dioxide 8 L* (22-30) mmol/L BUN 32 H (9-20) mg/dL Creatinine 1.78 H (0.66-1.25) mg/dL Glucose 148 H (74-99) mg/dL POC Glucose (mg/dL) (70-110) mg/dL Calcium (8.4-10.2) mg/dL C-Reactive Protein (0.00-0.80) mg/dL TSH (0.465-4.680) mIU/L Urine Protein Trace H (Negative) Urine Glucose (UA) 4+ H (Negative) Urine Ketones 2+ H (Negative) U Tricyclic Antidepress Detected H (NotDetected) SARS-CoV-2 (PCR) (Not Detectd) 04/02/24 04/03/24 04/03/24 Range/Units 23:52 01:05 01:54 WBC (3.8-10.6) k/uL Hgb (13.0-17.5) gm/dL Hct (39.0-53.0) % Plt Count (150-450) k/uL Neutrophils # (1.3-7.7) k/uL Neutrophils # (Manual) (1.3-7.7) k/uL Monocytes # (Manual) (0-1.0) k/uL ABG pCO2 20 L (35-45) mmHg ABG HCO3 14 L (21-25) mmol/L ABG Total CO2 15 L (19-24) mmol/L VBG pCO2 (37-51) mmHg VBG HCO3 (24-28) mmol/L Hemoglobin 12.8 L (13.0-17.5) gm/dL Sodium (137-145) mmol/L Chloride (98-107) mmol/L Carbon Dioxide (22-30) mmol/L BUN (9-20) mg/dL Creatinine (0.66-1.25) mg/dL Glucose (74-99) mg/dL POC Glucose (mg/dL) 134 H 153 H (70-110) mg/dL Calcium (8.4-10.2) mg/dL C-Reactive Protein (0.00-0.80) mg/dL TSH (0.465-4.680) mIU/L Urine Protein (Negative) Urine Glucose (UA) (Negative) Urine Ketones (Negative) U Tricyclic Antidepress (NotDetected) SARS-CoV-2 (PCR) (Not Detectd) 04/03/24 04/03/24 04/03/24 Range/Units 03:35 04:07 04:07 WBC 12.9 H (3.8-10.6) k/uL Hgb 12.2 L (13.0-17.5) gm/dL Hct 38.4 L (39.0-53.0) % Plt Count 608 H (150-450) k/uL Neutrophils # (1.3-7.7) k/uL Neutrophils # (Manual) 9.90 H (1.3-7.7) k/uL Monocytes # (Manual) 1.16 H (0-1.0) k/uL ABG pCO2 (35-45) mmHg ABG HCO3 (21-25) mmol/L ABG Total CO2 (19-24) mmol/L VBG pCO2 (37-51) mmHg VBG HCO3 (24-28) mmol/L Hemoglobin (13.0-17.5) gm/dL Sodium 146 H (137-145) mmol/L Chloride 119 H (98-107) mmol/L Carbon Dioxide 13 L (22-30) mmol/L BUN 31 H (9-20) mg/dL Creatinine 1.68 H (0.66-1.25) mg/dL Glucose (74-99) mg/dL POC Glucose (mg/dL) 65 L (70-110) mg/dL Calcium (8.4-10.2) mg/dL C-Reactive Protein (0.00-0.80) mg/dL TSH 4.780 H (0.465-4.680) mIU/L Urine Protein (Negative) Urine Glucose (UA) (Negative) Urine Ketones (Negative) U Tricyclic Antidepress (NotDetected) SARS-CoV-2 (PCR) (Not Detectd) 04/03/24 04/03/24 04/03/24 Range/Units 04:07 04:53 06:00 WBC (3.8-10.6) k/uL Hgb (13.0-17.5) gm/dL Hct (39.0-53.0) % Plt Count (150-450) k/uL Neutrophils # (1.3-7.7) k/uL Neutrophils # (Manual) (1.3-7.7) k/uL Monocytes # (Manual) (0-1.0) k/uL ABG pCO2 (35-45) mmHg ABG HCO3 (21-25) mmol/L ABG Total CO2 (19-24) mmol/L VBG pCO2 (37-51) mmHg VBG HCO3 (24-28) mmol/L Hemoglobin (13.0-17.5) gm/dL Sodium (137-145) mmol/L Chloride (98-107) mmol/L Carbon Dioxide (22-30) mmol/L BUN (9-20) mg/dL Creatinine (0.66-1.25) mg/dL Glucose (74-99) mg/dL POC Glucose (mg/dL) 123 H 146 H (70-110) mg/dL Calcium (8.4-10.2) mg/dL C-Reactive Protein 1.90 H (0.00-0.80) mg/dL TSH (0.465-4.680) mIU/L Urine Protein (Negative) Urine Glucose (UA) (Negative) Urine Ketones (Negative) U Tricyclic Antidepress (NotDetected) SARS-CoV-2 (PCR) (Not Detectd) 04/03/24 04/03/24 04/03/24 Range/Units 06:51 07:18 07:19 WBC (3.8-10.6) k/uL Hgb (13.0-17.5) gm/dL Hct (39.0-53.0) % Plt Count (150-450) k/uL Neutrophils # (1.3-7.7) k/uL Neutrophils # (Manual) (1.3-7.7) k/uL Monocytes # (Manual) (0-1.0) k/uL ABG pCO2 (35-45) mmHg ABG HCO3 (21-25) mmol/L ABG Total CO2 (19-24) mmol/L VBG pCO2 33 L (37-51) mmHg VBG HCO3 18 L (24-28) mmol/L Hemoglobin (13.0-17.5) gm/dL Sodium (137-145) mmol/L Chloride (98-107) mmol/L Carbon Dioxide (22-30) mmol/L BUN (9-20) mg/dL Creatinine (0.66-1.25) mg/dL Glucose (74-99) mg/dL POC Glucose (mg/dL) 153 H 146 H (70-110) mg/dL Calcium (8.4-10.2) mg/dL C-Reactive Protein (0.00-0.80) mg/dL TSH (0.465-4.680) mIU/L Urine Protein (Negative) Urine Glucose (UA) (Negative) Urine Ketones (Negative) U Tricyclic Antidepress (NotDetected) SARS-CoV-2 (PCR) (Not Detectd) 04/03/24 04/03/24 Range/Units 09:54 09:59 WBC (3.8-10.6) k/uL Hgb (13.0-17.5) gm/dL Hct (39.0-53.0) % Plt Count (150-450) k/uL Neutrophils # (1.3-7.7) k/uL Neutrophils # (Manual) (1.3-7.7) k/uL Monocytes # (Manual) (0-1.0) k/uL ABG pCO2 (35-45) mmHg ABG HCO3 (21-25) mmol/L ABG Total CO2 (19-24) mmol/L VBG pCO2 (37-51) mmHg VBG HCO3 (24-28) mmol/L Hemoglobin (13.0-17.5) gm/dL Sodium (137-145) mmol/L Chloride (98-107) mmol/L Carbon Dioxide (22-30) mmol/L BUN (9-20) mg/dL Creatinine (0.66-1.25) mg/dL Glucose (74-99) mg/dL POC Glucose (mg/dL) 136 H (70-110) mg/dL Calcium (8.4-10.2) mg/dL C-Reactive Protein (0.00-0.80) mg/dL TSH (0.465-4.680) mIU/L Urine Protein (Negative) Urine Glucose (UA) (Negative) Urine Ketones (Negative) U Tricyclic Antidepress (NotDetected) SARS-CoV-2 (PCR) Detected A (Not Detectd)
[2024-04-03 11:00] LABS: Glucose,Whole Blood 130 mg/dL (70-110)
[2024-04-03 11:55] LABS: Glucose,Whole Blood 129 mg/dL (70-110)
[2024-04-03 13:15] LABS: Glucose,Whole Blood 146 mg/dL (70-110)
[2024-04-03 14:18] LABS: Glucose,Whole Blood 138 mg/dL (70-110)
[2024-04-03 15:30] LABS: VBG PH 7.38 (7.31-7.41)
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
[2024-04-03 15:46] LABS: African American GFR (CKD) 59 (>60 ml/min/1.73 sqM); Anion Gap 9 mmol/L; Blood Urea Nitrogen 22 mg/dL (9-20); Calcium 8.4 mg/dL (8.4-10.2); Carbon Dioxide 18 mmol/L (22-30); Chloride 115 mmol/L (98-107); Glucose 132 mg/dL (74-99); Non-African American GFR(CKD) 51 (>60 ml/min/1.73 sqM); Potassium 4.3 mmol/L (3.5-5.1); Sodium 142 mmol/L (137-145)
[2024-04-03 16:37] LABS: Glucose,Whole Blood 108 mg/dL (70-110)
[2024-04-03] MEDS: CHOLECALCIFEROL 25 MCG (1000 IU) TABLET PO SCH (17:00)
[2024-04-03] MEDS: LIPASE 20,000/PROTEASE 63,000/AMYLASE 84,000 PO SCH (17:00)
[2024-04-03] MEDS: ASPIRIN 81 MG PO SCH (17:00)
[2024-04-03] MEDS: CLOTRIMAZOLE 1% CREAM 30 GM TUBE TOPICAL SCH (17:00)
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
[2024-04-03] MEDS: ESCITALOPRAM 20 MG TAB PO SCH (18:50)
[2024-04-03] MEDS: ACYCLOVIR SODIUM 500 MG in SODIUM CHLORIDE 0.9% 100 ML IVPB SCH (19:10)
[2024-04-03] MEDS: busPIRone HCl 5 MG TAB PO SCH (20:22)
[2024-04-03] MEDS: PRAZOSIN 1 MG CAP PO SCH (20:22)
[2024-04-03] MEDS: PRAVASTATIN SODIUM 40 MG TAB PO SCH (20:22)
[2024-04-03] MEDS: MELATONIN 5 MG TABLET PO SCH (20:22)
[2024-04-03] MEDS: QUEtiapine 200 MG TAB PO SCH (20:22)
[2024-04-03 20:23] LABS: Glucose,Whole Blood 128 mg/dL (70-110)
[2024-04-03] MEDS: VANCOMYCIN 1,500 MG in SODIUM CHLORIDE 0.9% 500 ML 500 ML IVPB SCH (22:26)
[2024-04-04 06:17] LABS: Glucose,Whole Blood 117 mg/dL (70-110)
[2024-04-04] MEDS: THIAMINE 100 MG TAB PO SCH (08:04)
[2024-04-04] MEDS: PROPRANOLOL 20 MG TAB PO SCH (08:05)
[2024-04-04 11:33] LABS: Glucose,Whole Blood 260 mg/dL (70-110)
[2024-04-04 12:10] LABS: Basophils # (A) 0.1 k/uL (0-0.2); Basophils % (A) 1 %; Eosinophils # (A) 0.8 k/uL (0-0.7); Eosinophils % (A) 9 %; HCT 35.3 % (39.0-53.0); HGB 11.2 gm/dL (13.0-17.5); Lymphocytes # (A) 1.3 k/uL (1.0-4.8); Lymphocytes % (A) 16 %; MCH 29.1 pg (25.0-35.0); MCHC 31.8 g/dL (31.0-37.0); MCV 91.4 fL (80.0-100.0); Mean Platelet Volume 7.1; Monocytes # (A) 0.5 k/uL (0-1.0); Monocytes % (A) 6 %; Neutrophils # (A) 5.5 k/uL (1.3-7.7); Neutrophils % (A) 65 %; Platelet Count 477 k/uL (150-450); RBC 3.87 m/uL (4.30-5.90); WBC 8.4 k/uL (3.8-10.6)
[2024-04-04 13:33] LABS: Ethanol Negative (Negative); Isopropanol Negative (Negative)
[2024-04-04 14:32] LABS: African American GFR (CKD) 81 (>60 ml/min/1.73 sqM); Anion Gap 11 mmol/L; Blood Urea Nitrogen 14 mg/dL (9-20); Calcium 8.5 mg/dL (8.4-10.2); Carbon Dioxide 15 mmol/L (22-30); Chloride 115 mmol/L (98-107); Glucose 91 mg/dL (74-99); Non-African American GFR(CKD) 70 (>60 ml/min/1.73 sqM); Potassium 4.2 mmol/L (3.5-5.1); Sodium 141 mmol/L (137-145)
--- NOTE | 2024-04-04 14:34 | P.PN ---
Progress Note - Text Progress Note Date: 04/04/24 Interval history: Patient was seen today for psychiatric follow-up regarding patient's delirium. Patient continues on a one-to-one sitter. Patient was agreeable to speak to scientific technical writer at the bedside. He did not recognize scientific technical writer from yesterday. He appeared to be fairly calm and cooperative. Continues to have difficulty with word recall and mild impairments in attention. He does appear to be improving since yesterday however and his mental status. He is denying any depression or anxiety. He was asking for an increase in his Seroquel and claims that he takes 300 mg prescribed by his psychiatrist Dr. Paredes which helps him sleep through the night. Claims that he was not sleeping last night very well. Denies any problems with appetite, denies any other issues or side effects. He did appear to be fairly polite, more awake today. MENTAL STATUS EXAM: General Appearance: Patient appears to be bald, has a goatee, several tattoos, stated age is alert, attempts to cooperate, less confused today. Patient appears to have fair hygiene and grooming wearing hospital gown with fair eye contact. Behavior: Patient is calmly lying in bed without any agita concrete, hesitant, improving Mood/Affect: Patient reports their mood is "fine", affect is incongruent and constricted Suicidality/Homicidality: Patient denies having any suicidal or homicidal ideation intent or plan. Perceptions: Patient denies any visual hallucinations and denies any auditory hallucinations Though content/process: Poverty of content, not endorsing any delusions. [place] Memory and concentration: AOX2, doesnt not know the date, Cannot spell "WORLD" backwards Judgment and insight: Improving mildly IMPRESSIONS: Delirium unknown etiology History of bipolar disorder Generalized anxiety disorder with panic attacks History of inhalant abuse Nicotine dependence PLAN: -At this time patient DOES NOT meet criteria for inpatient psychiatric admission. -Patient DOES NOT have decision making capacity at this time and is unable to reason through and communicate/appreciate the risks, benefits and alternatives to treatment. -Delirium precautions recommended with patient including - avoiding use of narcotics and ASPHALT TAMPER sedatives, limit anticholinergic medications when possible, frequent re-orientation, minimize use of restraints, open window shades during the day and close them at night -Would recommend the following medication changes/additions: increase Seroquel to 300 mg qhs for mood stabilization/sleep, seroquel 50 mg tid prn for agitation/psychosis, Lexapro 20 mg daily for mood/anxiety, BuSpar 15 mg twice daily for anxiety. inderal 20 mg daily, decrease minipress 1 mg qhs for nightmares. -CIWA protocol with PRN Ativan for alcohol withdrawal. Continue to monitor vital signs. -ship worker to provide patient substance use treatment resources including AA/NA meetings in the community. -ship worker to provide patient with access line number to call for inpatient substance rehab -Communicated plan to patient's nurse -at this time psychiatry will sign off, if patients condition worsens or team has further questions please call MHU or psychiatrist covering -Please contact with any questions.
[2024-04-04 15:10] VITALS: BMI 24.2
--- NOTE | 2024-04-04 15:38 | P.PN ---
Subjective Progress Note Date: 04/04/24 Subjective: Patient seen and examined at the bedside. No acute events overnight. Patient is more awake and stable compared to yesterday but continues to be AO x 2. Patient not complaining of shortness of breath, chest pain, nausea, vomiting, abdominal pain, numbness or tingling in upper or lower extremities. Objective: Vital signs reviewed. General: non toxic, nondistressed, older than stated age Derm: no unusual rashes/lesions, warm Head: atraumatic, normocephalic, symmetric Eyes: EOMI, no lid lag, anicteric sclera, pupils equal round reactive to light ENT: Nose and ears atraumatic Neck: No cervical lymphadenopathy, trachea midline, supple, no nuchal rigidity noted, Brudzinski sign negative Mouth: no lip lesion, mucus membranes moist Cardiovascular: S1S2 reg, no murmur, positive dorsalis pedis pulse bilateral, no edema Lungs: CTA bilateral, no rhonchi, no rales, no accessory muscle use Abdominal: soft, nontender to palpation, no guarding Ext: muscle strength 5 out of 5 in all 4 extremities grossly, no gross muscle atrophy, no contractures, Neuro: CN II-XI grossly intact, no gross focal neuro deficits Psych: AO x 2, Data reviewed today: Labs: WBC 8.4, hemoglobin 11.2, platelet count 477, sodium 141, potassium 4.2, chloride 115, bicarb 15, BUN 14, creatinine 1.14, calcium 8.5, magnesium 2.0 Images: No new imaging Assessment and Plan: 59-year-old male with a past medical history of diabetes mellitus, hypertension, mood disorder, and hyperlipidemia presents with symptoms of altered mental status. Patient is admitted to the internal medicine service for further workup of current altered state. #COVID-19 positive #Acute toxic-metabolic encephalopathy #?COVID-19 encephalopathy #Polypharmacy #History of psychiatric disorders #High anion gap metabolic acidosis, resolved #History of alcohol dependence [facility] protocol, IV Ativan as needed Daily thiamine 100 mg p.o. Discontinue D5 normal saline Head CT and chest x-ray in the ED were noncontributory Neurology on consult, brain MRI and EEG pending, discussed management, low suspicion for encephalitis/meningitis, antibiotics discontinued TSH 4.78 with free T4 of 1.33, vitamin B12 is pending Serum alcohol negative Serum osmolality 306 Negative volatiles screening: c/w Fall precautions Low threshold for seizures, c/w seizure precautions Psychiatry consulted, note reviewed, Seroquel increased to 300 mg nightly, Seroquel 50 mg 3 times daily as needed, Lexapro 20 mg daily, BuSpar 15 mg twice daily, Inderal 20 mg daily, Minipress increased to 1 mg nightly Gabapentin was decreased to 300 3 times daily #SIRS, without obvious infectious etiology WBC down trended to 8.4 CXR shows no acute cardiopulmonary process Vital signs stable Procalcitonin is 0.12, negative At this time low suspicion for encephalitis, meningitis and any other underlying bacterial infection Discontinue IV vancomycin, IV ceftriaxone and IV ampicillin and IV acyclovir Will consider restarting empiric treatment if patient shows signs and symptoms of infection Continue monitor vital signs, CBC Neurology on board, brain MRI and EEG is pending Will not consider LP at this time # Acute kidney injury, resolved No episodes of hypotension since admission, on losartan at home, no other n ephrotoxic agents and home medication list. Creatinine improved to 1.14 at baseline Continue monitor BMP Chronic: #Hypertension: Hold home losartan in setting of JACKIE #Hyperlipidemia: Continue home medications F: oral intake E: None N: Regular diet A: Normally ambulates unassisted at home DVT ppx: Heparin subq GI ppx: Famotidine 40 mg p.o. daily Code Status: Not identified yet Anticipated discharge place: Pending clinical course Anticipated discharge date: Pending clinical course I have seen and evaluated the patient today. Discussed with the resident and agree with the residents finding and plan as documented in the resident's note. Changes highlighted in blue font. Objective - Vital Signs Vital signs: Vital Signs Temp 98.4 F 04/04/24 11:49 Pulse 81 04/04/24 11:49 Resp 16 04/04/24 11:49 BP 129/73 04/04/24 11:49 Pulse Ox 94 L 04/04/24 11:49 FiO2 Intake & Output 04/03/24 04/04/24 04/04/24 18:59 06:59 18:59 Intake Total 118 120 Balance 118 120 Weight 68.039 kg 68 kg 68 kg Intake: Oral 118 120 - Labs CBC & Chem 7: 04/04/24 11:51 04/04/24 14:02 Labs: Abnormal Lab Results - Last 24 Hours (Table) 04/03/24 04/03/24 04/03/24 Range/Units 10:09 15:09 15:09 RBC (4.30-5.90) m/uL Hgb (13.0-17.5) gm/dL Hct (39.0-53.0) % Plt Count (150-450) k/uL Eosinophils # (0-0.7) k/uL VBG pCO2 30 L (37-51) mmHg VBG HCO3 18 L (24-28) mmol/L Chloride 115 H (98-107) mmol/L Carbon Dioxide 18 L (22-30) mmol/L BUN 22 H (9-20) mg/dL Creatinine 1.47 H (0.66-1.25) mg/dL Glucose 132 H (74-99) mg/dL POC Glucose (mg/dL) (70-110) mg/dL Osmolality 306 H (275-295) mOsm/kg 04/03/24 04/04/24 04/04/24 Range/Units 20:20 06:16 11:32 RBC (4.30-5.90) m/uL Hgb (13.0-17.5) gm/dL Hct (39.0-53.0) % Plt Count (150-450) k/uL Eosinophils # (0-0.7) k/uL VBG pCO2 (37-51) mmHg VBG HCO3 (24-28) mmol/L Chloride (98-107) mmol/L Carbon Dioxide (22-30) mmol/L BUN (9-20) mg/dL Creatinine (0.66-1.25) mg/dL Glucose (74-99) mg/dL POC Glucose (mg/dL) 128 H 117 H 260 H (70-110) mg/dL Osmolality (275-295) mOsm/kg 04/04/24 04/04/24 Range/Units 11:51 14:02 RBC 3.87 L (4.30-5.90) m/uL Hgb 11.2 L (13.0-17.5) gm/dL Hct 35.3 L (39.0-53.0) % Plt Count 477 H (150-450) k/uL Eosinophils # 0.8 H (0-0.7) k/uL VBG pCO2 (37-51) mmHg VBG HCO3 (24-28) mmol/L Chloride 115 H (98-107) mmol/L Carbon Dioxide 15 L (22-30) mmol/L BUN (9-20) mg/dL Creatinine (0.66-1.25) mg/dL Glucose (74-99) mg/dL POC Glucose (mg/dL) (70-110) mg/dL Osmolality (275-295) mOsm/kg
[2024-04-04 16:03] LABS: Glucose,Whole Blood 157 mg/dL (70-110)
[2024-04-04 19:49] LABS: Glucose,Whole Blood 147 mg/dL (70-110)
--- NOTE | 2024-04-04 19:49 | P.PN ---
Subjective Progress Note Date: 04/04/24 I am following-up with patient and he feels he is doing better. It seems he has COVID-19. Primary team feels he is doing well. Objective - Vital Signs Vital signs: Vital Signs Temp 98.1 F 04/04/24 16:00 Pulse 79 04/04/24 16:00 Resp 16 04/04/24 16:00 BP 109/73 04/04/24 16:00 Pulse Ox 95 04/04/24 16:00 FiO2 Intake & Output 04/04/24 04/04/24 04/05/24 06:59 18:59 06:59 Intake Total 240 Balance 240 Weight 68 kg 68 kg Intake: Oral 240 Other: # Voids 2 - Exam General: Lying in bed and is not in acute distress. Neuro: Patient is awake alert oriented to self place and time. He is following simple commands. He is more awake and responsive today compared to yesterday. No facial weakness. No dysarthria Motor is lifting in all extremities above gravity equally. Some of the workup during this hospital visit consisted of: Patient is afebrile White blood cell is 16,000, and it neutrophilic. Repeated white blood cells 12.9 thousand TSH is 4.78 and the free T4 is 1.33, vitamin B12 is pending Ammonia level is 14 SARS-CoV-2 is detected. I reviewed rest of the lab workup Urine drug screen is positive for tricyclic antidepressant otherwise rest is not detected. Acetone is positive. Serum alcohol is less than 10. CT head is negative for any acute intracranial process. I personally reviewed the CT and agree with the report. - Labs CBC & Chem 7: 04/04/24 11:51 04/04/24 14:02 Labs: Abnormal Lab Results - Last 24 Hours (Table) 04/03/24 04/04/24 04/04/24 Range/Units 20:20 06:16 11:32 RBC (4.30-5.90) m/uL Hgb (13.0-17.5) gm/dL Hct (39.0-53.0) % Plt Count (150-450) k/uL Eosinophils # (0-0.7) k/uL Chloride (98-107) mmol/L Carbon Dioxide (22-30) mmol/L POC Glucose (mg/dL) 128 H 117 H 260 H (70-110) mg/dL 11/08/24 11/08/24 11/08/24 Range/Units 11:51 14:02 16:02 RBC 3.87 L (4.30-5.90) m/uL Hgb 11.2 L (13.0-17.5) gm/dL Hct 35.3 L (39.0-53.0) % Plt Count 477 H (150-450) k/uL Eosinophils # 0.8 H (0-0.7) k/uL Chloride 115 H (98-107) mmol/L Carbon Dioxide 15 L (22-30) mmol/L POC Glucose (mg/dL) 157 H (70-110) mg/dL Assessment and Plan Assessment: This is a 59-year-old gentleman who presented emergency department because of altered mental status. Seems that he had similar presentation of confusion about 2 weeks ago. He has leukocytosis as high as 16,000 and is afebrile. He has acute on chronic kidney injury. Altered mental status and seems due to multifactorial: Acute COVID-19 and metabolic encephalopathy--mentation is drastically better. Acute on chronic kidney insufficiency Acute COVID-19 History of diabetes mellitus Hypertension Hyperlipidemia Underlying history of alcohol use and he is in alcohol Anonymous and denies any further alcohol use History of mood disorder Plan: Patient was started on ampicillin, ceftriaxone 2 g every 12 hours, vancomycin and Acyclovir by the primary team but since he was found to have COVID-19 he was discontinued. Recommend ID consultation Pending MRI of the brain as well as routine EEG. Psychiatry team is consulted Will defer the rest of the medical management to primary and other specialist. Plan discussed with the primary team. Will follow-up with patient sporadically. Time with Patient: Less than 30
[2024-04-04] MEDS: PRAZOSIN 1 MG CAP PO SCH (20:56)
[2024-04-04] MEDS: QUEtiapine 100 MG TAB PO SCH (20:56)
--- NOTE | 2024-04-04 23:21 | EEG ---
ELECTROENCEPHALOGRAM REPORT CLINICAL HISTORY: This is a 59-year-old gentleman with altered mental status. The video EEG is obtained to evaluate for seizure epileptiform activity. RELEVANT MEDICATIONS: 1. Gabapentin. 2. Lyrica. EEG TYPE: This is a routine 21-channel EEG with video using the 10/20 electrode placement system. DESCRIPTION: Wakefulness and drowsiness are obtained. During awake state, the posterior-dominant rhythm consists of boy-ce-jjredbba voltage of 8.5 hertz activity. There was no physiological stage 2 sleep architecture. There is no focal slowing. Interictal and ictal is none. ACTIVATION PROCEDURE: Photic stimulation did not evoke a posterior driving response. There is no abnormality during the photic stimulation. Hyperventilation is not performed. CLINICAL INTERPRETATION: This is a normal routine EEG. There is no focal slowing, epileptiform discharge, or seizure on the EEG. A normal routine EEG does not rule out underlying epilepsy. Clinical correlation is recommended. MINI / HALEY: [id number] /
[2024-04-05] MEDS ORDERED: VANCOMYCIN TROUGH DUE 1 EACH MISC MISCELLANE ONE (05:00)
[2024-04-05 06:18] LABS: Glucose,Whole Blood 123 mg/dL (70-110)
[2024-04-05 09:12] LABS: Basophils # (A) 0.1 k/uL (0-0.2); Basophils % (A) 1 %; Eosinophils # (A) 0.6 k/uL (0-0.7); Eosinophils % (A) 9 %; HCT 37.8 % (39.0-53.0); HGB 11.8 gm/dL (13.0-17.5); Lymphocytes # (A) 1.2 k/uL (1.0-4.8); Lymphocytes % (A) 16 %; MCH 28.6 pg (25.0-35.0); MCHC 31.3 g/dL (31.0-37.0); MCV 91.2 fL (80.0-100.0); Mean Platelet Volume 8.3; Monocytes # (A) 0.4 k/uL (0-1.0); Monocytes % (A) 6 %; Neutrophils # (A) 4.9 k/uL (1.3-7.7); Neutrophils % (A) 65 %; Platelet Count 483 k/uL (150-450); RBC 4.14 m/uL (4.30-5.90); RDW 13.8 % (11.5-15.5); WBC 7.5 k/uL (3.8-10.6)
[2024-04-05 09:24] LABS: African American GFR (CKD) 82 (>60 ml/min/1.73 sqM); Anion Gap 9 mmol/L; Blood Urea Nitrogen 12 mg/dL (9-20); Carbon Dioxide 18 mmol/L (22-30); Chloride 112 mmol/L (98-107); Glucose 102 mg/dL (74-99); Non-African American GFR(CKD) 71 (>60 ml/min/1.73 sqM); Potassium 4.5 mmol/L (3.5-5.1); Sodium 139 mmol/L (137-145)
[2024-04-05 11:19] LABS: Glucose,Whole Blood 78 mg/dL (70-110)
--- NOTE | 2024-04-05 11:27 | P.PN ---
Subjective Progress Note Date: 04/05/24 Subjective: Patient seen and examined at the bedside. No acute events overnight. Sitter at bedside. Patient is more awake, much improved and stable compared to yesterday but continues to be AO x 3. Likely at baseline mentation. Patient not complaining of shortness of breath, chest pain, nausea, vomiting, abdominal pain, numbness or tingling in upper or lower extremities. Objective: Vital signs reviewed. General: non toxic, nondistressed, older than stated age Derm: no unusual rashes/lesions, warm Head: atraumatic, normocephalic, symmetric Eyes: EOMI, no lid lag, anicteric sclera, pupils equal round reactive to light ENT: Nose and ears atraumatic Neck: No cervical lymphadenopathy, trachea midline, supple, Mouth: no lip lesion, mucus membranes moist Cardiovascular: S1S2 reg, no murmur, positive dorsalis pedis pulse bilateral, no edema Lungs: CTA bilateral, no rhonchi, no rales, no accessory muscle use Abdominal: soft, nontender to palpation, no guarding Ext: muscle strength 5 out of 5 in all 4 extremities grossly, no gross muscle atrophy, no contractures, Neuro: CN II-XI grossly intact, no gross focal neuro deficits Psych: AOx3, calm, Data reviewed today: Labs: WBC 7.5, hemoglobin 11.8, platelet count 483, sodium 139, potassium 4.9, chloride 112, bicarb 18, creatinine 1.12, glucose 102, calcium 9.0, magnesium 2.0, Images: No new imaging Assessment and Plan: 59-year-old male with a past medical history of diabetes mellitus, hypertension, mood disorder, and hyperlipidemia presents with symptoms of altered mental status. Patient is admitted to the internal medicine service for further workup of current altered state. #COVID-19 positive #Acute toxic-metabolic encephalopathy, resolved #?COVID-19 encephalopathy #Polypharmacy #History of psychiatric disorders #High anion gap metabolic acidosis, resolved #History of alcohol dependence [facility] protocol, IV Ativan as needed Daily thiamine [address] and chest x-ray in the ED were noncontributory Neurology on consult, EEG normal, brain MRI pending, discussed management, low suspicion for encephalitis/meningitis, antibiotics discontinued TSH 4.78 with free T4 of 1.33, vitamin B12 is pending Serum alcohol negative Serum osmolality 306 Negative volatiles screening: Negative c/w Fall precautions Low threshold for seizures, c/w seizure precautions Psychiatry following, Seroquel increased to 300 mg nightly, Seroquel 50 mg 3 times daily as needed, Lexapro 20 mg daily, BuSpar 15 mg twice daily, Inderal 20 mg daily, Minipress increased to 1 mg nightly Gabapentin was decreased to 300 3 times daily #SIRS, without obvious infectious etiology, resolved WBC down trended, within normal limit CXR showed no acute cardiopulmonary process Vital signs stable Procalcitonin is unremarkable At this time low suspicion for encephalitis, meningitis and any other underlying bacterial infection Discontinue IV vancomycin, IV ceftriaxone and IV ampicillin and IV acyclovir Will consider restarting empiric treatment if patient shows signs and symptoms of infection Continue monitor vital signs, CBC Neurology on board, brain MRI and EEG is unremarkable Will not consider LP at this time # Acute kidney injury, resolved No episodes of hypotension since admission, on losartan at home, no other nephrotoxic agents and home medication list. Creatinine improved; at baseline Continue monitor BMP Continue losartan with blood pressure seemingly within normal range However resume losartan, if blood pressure is consistently high and with JACKIE being resolved Chronic: #Hypertension: Hold home losartan for now #Hyperlipidemia: Continue home medications F: oral intake E: None N: Regular diet A: Normally ambulates unassisted at home DVT ppx: Heparin subq GI ppx: Famotidine 40 mg p.o. daily Code Status: Not identified yet Anticipated discharge place: Pending clinical course Anticipated discharge date: Pending clinical course I have seen and evaluated the patient today. Discussed with the resident and agree with the residents finding and plan as documented in the resident's note. Changes highlighted in blue font. Objective - Vital Signs Vital signs: Vital Signs Temp 97.6 F 04/05/24 08:00 Pulse 98 04/05/24 08:00 Resp 18 04/05/24 08:00 BP 112/76 04/05/24 08:00 Pulse Ox 99 04/05/24 08:00 FiO2 Intake & Output 04/04/24 04/05/24 04/05/24 18:59 06:59 18:59 Intake Total 240 20 240 Balance 240 20 240 Weight 68 kg 76.3 kg Intake: IV 20 Invasive Line 4 20 Oral 240 240 Other: Voiding Method Toilet Toilet # Voids 2 3 - Labs CBC & Chem 7: 04/05/24 07:51 04/05/24 07:51 Labs: Abnormal Lab Results - Last 24 Hours (Table) 04/04/24 04/04/24 04/04/24 Range/Units 11:32 11:51 14:02 RBC 3.87 L (4.30-5.90) m/uL Hgb 11.2 L (13.0-17.5) gm/dL Hct 35.3 L (39.0-53.0) % Plt Count 477 H (150-450) k/uL Eosinophils # 0.8 H (0-0.7) k/uL Chloride 115 H (98-107) mmol/L Carbon Dioxide 15 L (22-30) mmol/L Glucose (74-99) mg/dL POC Glucose (mg/dL) 260 H (70-110) mg/dL 04/04/24 04/04/24 04/05/24 Range/Units 16:02 19:47 06:15 RBC (4.30-5.90) m/uL Hgb (13.0-17.5) gm/dL Hct (39.0-53.0) % Plt Count (150-450) k/uL Eosinophils # (0-0.7) k/uL Chloride (98-107) mmol/L Carbon Dioxide (22-30) mmol/L Glucose (74-99) mg/dL POC Glucose (mg/dL) 157 H 147 H 123 H (70-110) mg/dL 04/05/24 04/05/24 Range/Units 07:51 07:51 RBC 4.14 L (4.30-5.90) m/uL Hgb 11.8 L (13.0-17.5) gm/dL Hct 37.8 L (39.0-53.0) % Plt Count 483 H (150-450) k/uL Eosinophils # (0-0.7) k/uL Chloride 112 H (98-107) mmol/L Carbon Dioxide 18 L (22-30) mmol/L Glucose 102 H (74-99) mg/dL POC Glucose (mg/dL) (70-110) mg/dL
[2024-04-05 16:20] LABS: Glucose,Whole Blood 61 mg/dL (70-110)
[2024-04-05 16:40] LABS: Glucose,Whole Blood 62 mg/dL (70-110)
[2024-04-05 17:11] LABS: Glucose,Whole Blood 93 mg/dL (70-110)
[2024-04-05] MEDS: ACETAMINOPHEN TAB 325 MG TAB PO PRN (18:28)
[2024-04-05 20:20] LABS: Glucose,Whole Blood 125 mg/dL (70-110)
[2024-04-06 06:03] LABS: Glucose,Whole Blood 138 mg/dL (70-110)
[2024-04-06] MEDS: QUEtiapine 50 MG TAB PO PRN (09:34)
[2024-04-06 11:17] LABS: Glucose,Whole Blood 189 mg/dL (70-110)
[2024-04-06 11:24] LABS: Basophils # (A) 0.1 k/uL (0-0.2); Basophils % (A) 1 %; Eosinophils # (A) 0.6 k/uL (0-0.7); Eosinophils % (A) 5 %; HCT 38.6 % (39.0-53.0); HGB 12.1 gm/dL (13.0-17.5); Lymphocytes # (A) 1.1 k/uL (1.0-4.8); Lymphocytes % (A) 11 %; MCH 28.3 pg (25.0-35.0); MCHC 31.3 g/dL (31.0-37.0); MCV 90.5 fL (80.0-100.0); Mean Platelet Volume 6.7; Monocytes # (A) 0.4 k/uL (0-1.0); Monocytes % (A) 4 %; Neutrophils # (A) 7.9 k/uL (1.3-7.7); Neutrophils % (A) 76 %; Platelet Count 515 k/uL (150-450); RBC 4.26 m/uL (4.30-5.90); RDW 13.4 % (11.5-15.5); WBC 10.4 k/uL (3.8-10.6)
[2024-04-06 11:39] LABS: African American GFR (CKD) 85 (>60 ml/min/1.73 sqM); Anion Gap 9 mmol/L; Blood Urea Nitrogen 11 mg/dL (9-20); Calcium 9.3 mg/dL (8.4-10.2); Carbon Dioxide 22 mmol/L (22-30); Chloride 106 mmol/L (98-107); Glucose 161 mg/dL (74-99); Magnesium 1.7 mg/dL (1.6-2.3); Non-African American GFR(CKD) 73 (>60 ml/min/1.73 sqM); Potassium 4.3 mmol/L (3.5-5.1); Sodium 137 mmol/L (137-145)
--- NOTE | 2024-04-06 14:51 | P.PN ---
Subjective Progress Note Date: 04/06/24 Subjective: Patient seen and examined at the bedside. No acute events overnight. Patient not complaining of shortness of breath, chest pain, nausea, vomiting, abdominal pain, numbness or tingling in upper or lower extremities. Objective: Vital signs reviewed. General: non toxic, nondistressed, older than stated age Derm: no unusual rashes/lesions, warm Head: atraumatic, normocephalic, symmetric Eyes: EOMI, no lid lag, anicteric sclera, pupils equal round reactive to light ENT: Nose and ears atraumatic Neck: No cervical lymphadenopathy, trachea midline, supple, Mouth: no lip lesion, mucus membranes moist Cardiovascular: S1S2 reg, no murmur, positive dorsalis pedis pulse bilateral, no edema Lungs: CTA bilateral, no rhonchi, no rales, no accessory muscle use Abdominal: soft, nontender to palpation, no guarding Ext: muscle strength 5 out of 5 in all 4 extremities grossly, no gross muscle atrophy, no contractures, Neuro: CN II-XI grossly intact, no gross focal neuro deficits Psych: AOx3, calm, Data reviewed today: Labs: WBC 10.4, hemoglobin 12.1, platelet 515, creatinine 1.09, bicarb 22, blood sugars range between 1 25-1 89, magnesium 1.7 Images: No new imaging Assessment and Plan: 59-year-old male with a past medical history of diabetes mellitus, hypertension, mood disorder, and hyperlipidemia presents with symptoms of altered mental status. Patient is admitted to the internal medicine service for further workup of current altered state. #COVID-19 positive #Acute toxic-metabolic encephalopathy, resolved #?COVID-19 encephalopathy #Polypharmacy #History of psychiatric disorders #High anion gap metabolic acidosis, resolved #History of alcohol dependence [facility] protocol, IV Ativan as needed Daily thiamine [address] and chest x-ray in the ED were noncontributory Neurology on consult, EEG normal, brain MRI pending TSH 4.78 with free T4 of 1.33, vitamin B12 is pending c/w Fall precautions c/w seizure precautions Psychiatry following, Seroquel increased to 300 mg nightly, Seroquel 50 mg 3 times daily as needed, Lexapro 20 mg daily, BuSpar 15 mg twice daily, Inderal 20 mg daily, Minipress increased to 1 mg nightly Gabapentin was decreased to 300 3 times daily #SIRS, without obvious infectious etiology, resolved Antibiotics discontinued # Acute kidney injury, resolved No episodes of hypotension since admission, on losartan at home, no other nephrotoxic agents and home medication list. Hold losartan Chronic: #Hypertension: Hold home losartan for now #Hyperlipidemia: Continue home medications F: oral intake E: None N: Regular diet A: Normally ambulates unassisted at home DVT ppx: Heparin subq GI ppx: Famotidine 40 mg p.o. daily Code Status: FC Anticipated discharge place: Pending clinical course Anticipated discharge date: Pending clinical course Objective - Vital Signs Vital signs: Vital Signs Temp 98 F 04/06/24 08:00 Pulse 85 04/06/24 12:00 Resp 16 04/06/24 12:00 BP 113/62 04/06/24 12:00 Pulse Ox 92 L 04/06/24 12:00 FiO2 Intake & Output 04/05/24 04/06/24 04/06/24 18:59 06:59 18:59 Intake Total 1560 900 Balance 1560 900 Weight 72.7 kg Intake: Oral 1560 900 Other: Voiding Method Toilet Toilet Toilet # Voids 2 1 - Labs CBC & Chem 7: 04/06/24 11:11 04/06/24 11:11 Labs: Abnormal Lab Results - Last 24 Hours (Table) 04/05/24 04/05/24 04/05/24 Range/Units 16:18 16:39 20:18 RBC (4.30-5.90) m/uL Hgb (13.0-17.5) gm/dL Hct (39.0-53.0) % Plt Count (150-450) k/uL Neutrophils # (1.3-7.7) k/uL Glucose (74-99) mg/dL POC Glucose (mg/dL) 61 L 62 L 125 H (70-110) mg/dL 04/06/24 04/06/24 04/06/24 Range/Units 06:02 11:11 11:11 RBC 4.26 L (4.30-5.90) m/uL Hgb 12.1 L (13.0-17.5) gm/dL Hct 38.6 L (39.0-53.0) % Plt Count 515 H (150-450) k/uL Neutrophils # 7.9 H (1.3-7.7) k/uL Glucose 161 H (74-99) mg/dL POC Glucose (mg/dL) 138 H (70-110) mg/dL 04/06/24 Range/Units 11:15 RBC (4.30-5.90) m/uL Hgb (13.0-17.5) gm/dL Hct (39.0-53.0) % Plt Count (150-450) k/uL Neutrophils # (1.3-7.7) k/uL Glucose (74-99) mg/dL POC Glucose (mg/dL) 189 H (70-110) mg/dL
[2024-04-06 16:54] LABS: Glucose,Whole Blood 130 mg/dL (70-110)
[2024-04-06 20:00] LABS: Glucose,Whole Blood 164 mg/dL (70-110)
[2024-04-07 06:04] LABS: Glucose,Whole Blood 170 mg/dL (70-110)
[2024-04-07 11:40] LABS: Glucose,Whole Blood 111 mg/dL (70-110)
--- NOTE | 2024-04-07 12:05 | P.PN ---
Subjective Progress Note Date: 04/07/24 Hospital course: 59-year-old male with a past medical history of psychiatric disorder, diabetes mellitus, hypertension, mood disorder, and hyperlipidemia admitted to the hospital for acute toxicmetabolic encephalopathy. Initial lab evaluation in the ER was significant for WBC 16, hemoglobin 14.1, MCV 89.1, platelet count 691, neutrophils 12.2, sodium 143, potassium 4.4, bicarb 11, creatinine 1.4, glu cose 126, calcium 10.4, and troponin less than 0.012. EKG done in the ER showed heart rate of 121 bpm, no ST segment elevation or depression seen, no T-wave inversions seen. Sinus tachycardia, QTc 396. Chest x-ray shows no acute cardiopulmonary process. CT head shows no acute intracranial process. Urine drug screen positive for TCA. COVID-19 positive on PCR. Patient was started empirically on IV antibiotic and IV antiviral for meningitis versus encephalitis. Neurology and psychiatry were consulted. Medication adjusted as follows: Seroquel increased to 300 mg nightly, Seroquel 50 mg 3 times daily as needed, Lexapro 20 mg daily, BuSpar 15 mg twice daily, Inderal 20 mg daily, Minipress increased to 1 mg nightly. Gabapentin was decreased to 300 3 times daily. Subsequently mental status of patient continued to improve and WBC trended down with negative procalcitonin and normal vital sign. Therefore, empiric treatment was discontinued with low suspicion for meningitis and/or encephalitis. Additionally, EEG normal, brain MRI is pending. Other etiologies of acute toxicmetabolic encephalopathy ruled out. Patient returned back to his baseline mentation with encephalopathy resolved. Subjective: Patient seen and examined at the bedside. No acute events overnight. Patient not complaining of shortness of breath, chest pain, nausea, vomiting, abdominal pain, numbness or tingling in upper or lower extremities. Objective: Vital signs reviewed. General: non toxic, nondistressed, older than stated age Derm: no unusual rashes/lesions, warm Head: atraumatic, normocephalic, symmetric Eyes: EOMI, no lid lag, anicteric sclera, pupils equal round reactive to light ENT: Nose and ears atraumatic Neck: No cervical lymphadenopathy, trachea midline, supple, Mouth: no lip lesion, mucus membranes moist Cardiovascular: S1S2 reg, no murmur, positive dorsalis pedis pulse bilateral, no edema Lungs: CTA bilateral, no rhonchi, no rales, no accessory muscle use Abdominal: soft, nontender to palpation, no guarding Ext: muscle strength 5 out of 5 in all 4 extremities grossly, no gross muscle atrophy, no contractures, Neuro: CN II-XI grossly intact, no gross focal neuro deficits Psych: AOx3, calm, good affect, stable mood Data reviewed today: Labs: No new labs Images: No new imaging Assessment and Plan: 59-year-old male with a past medical history of diabetes mellitus, hypertension, mood disorder, and hyperlipidemia presents with symptoms of altered mental status. Patient is admitted to the internal medicine service for further workup of current altered state. #COVID-19 positive #Acute toxic-metabolic encephalopathy, resolved #?COVID-19 encephalopathy #Polypharmacy #History of psychiatric disorders #High anion gap metabolic acidosis, resolved #History of alcohol dependence [facility] protocol, IV Ativan as needed Daily thiamine [address] and chest x-ray in the ED were noncontributory Neurology on consult, EEG normal, brain MRI pending TSH 4.78 with free T4 of 1.33, vitamin B12 554 c/w Fall precautions c/w seizure precautions Psychiatry following, Seroquel increased to 300 mg nightly, Seroquel 50 mg 3 times daily as needed, Lexapro 20 mg daily, BuSpar 15 mg twice daily, Inderal 20 mg daily, Minipress increased to 1 mg nightly Gabapentin was decreased to 300 3 times daily Psychiatric evaluation for mental capacity to make decisions #SIRS, without obvious infectious etiology, resolved Antibiotics discontinued # Acute kidney injury, resolved No episodes of hypotension since admission, on losartan at home, no other nephrotoxic agents and home medication list. Hold losartan Chronic: #Hypertension: Hold home losartan for now #Hyperlipidemia: Continue home medications F: oral intake E: None N: Regular diet A: Normally ambulates unassisted at home DVT ppx: Heparin subq GI ppx: Famotidine 40 mg p.o. daily Code Status: FC Anticipated discharge place: Home Anticipated discharge date: Anticipated discharge today if brain MRI negative Had extensive discussion with neurology, due to brain MRI showing increased signal within the left vertebral artery concerning for possible occlusion, CTA head and neck is pending. I have seen and evaluated the patient today. Discussed with the resident and agree with the residents finding and plan as documented in the resident's note. Changes highlighted in blue font. Objective - Vital Signs Vital signs: Vital Signs Temp 98.4 F 04/07/24 08:00 Pulse 99 04/07/24 08:00 Resp 16 04/07/24 08:00 BP 91/64 04/07/24 08:00 Pulse Ox 98 04/07/24 08:00 FiO2 Intake & Output 04/06/24 04/07/24 04/07/24 18:59 06:59 18:59 Intake Total 1140 240 Balance 1140 240 Weight 71.9 kg Intake: Oral 1140 240 Other: Voiding Method Toilet Toilet # Voids 1 3 - Labs CBC & Chem 7: 04/06/24 11:11 04/06/24 11:11 Labs: Abnormal Lab Results - Last 24 Hours (Table) 04/06/24 04/06/24 04/07/24 Range/Units 16:53 19:58 06:03 POC Glucose (mg/dL) 130 H 164 H 170 H (70-110) mg/dL 04/07/24 Range/Units 11:37 POC Glucose (mg/dL) 111 H (70-110) mg/dL
--- NOTE | 2024-04-07 12:11 | MR ---
EXAMINATION TYPE: MR brain wo con DATE OF EXAM: 04/07/2024 11:31 AM COMPARISON: CT brain 04/02/2024 . CLINICAL INDICATION: Male, 59 years old with history of encephalopathy of unknown etiology; PHH, AMS, encephalopathy of unknown etiology. TECHNIQUE: Multi planar, multi sequence imaging was performed through the brain including: T1, T2, In version recovery, Diffusion weighted imaging, and gradient echo imaging. No gadolinium was given. FINDINGS: Loss of the flow void within the left vertebral artery as it exits the C1 vertebrae into the intracra nial portion. The troncoso-white junctions, ventricular system, basal cisterns appear unremarkable. Sca ttered foci of high T2 signal intensity are seen within the periventricular white matter. Midline str uctures show no abnormality. Diffusion-weighted imaging shows no evidence of restricted diffusion. Th e susceptibility weighted images do not reveal any evidence for micro-hemorrhage. The bone marrow signal is within normal limits. Paranasal sinuses and mastoid air cells: Mild scattered paranasal sinus disease. Visualized orbits: Bilaterally aphakia. IMPRESSION: 1. Increased signal within the left vertebral artery concerning for slow flow versus occlusion. Furt her workup with CTA head and neck recommended. 2. No evidence of intracranial mass or acute/subacute infarct. 3. Nonspecific white matter changes, likely secondary to small vessel ischemic disease. Findings communicated to Dr. Ruiz on 04/07/2024 12:[address] Jose Guadalupe Duvall. [facility], , 04/07/2024 12:09 PM
[2024-04-07] MEDS: NICOTINE 14MG/24HR PATCH TRANSDERM SCH (14:56)
[2024-04-07 16:32] LABS: Glucose,Whole Blood 167 mg/dL (70-110)
[2024-04-07 19:45] VITALS: RESP 18
[2024-04-07 20:03] LABS: Glucose,Whole Blood 182 mg/dL (70-110)
[2024-04-07] MEDS: guaiFENesin-DM 100-10MG/5ML 10 ML CUP PO PRN (21:41)
[2024-04-08 06:12] LABS: Glucose,Whole Blood 204 mg/dL (70-110)
[2024-04-08 07:02] LABS: Basophils # (A) 0.1 k/uL (0-0.2); Basophils % (A) 1 %; Eosinophils # (A) 0.4 k/uL (0-0.7); Eosinophils % (A) 4 %; HCT 42.4 % (39.0-53.0); Hypochromasia Slight; Lymphocytes # (A) 1.2 k/uL (1.0-4.8); Lymphocytes % (A) 15 %; MCH 28.2 pg (25.0-35.0); MCHC 30.6 g/dL (31.0-37.0); MCV 92.4 fL (80.0-100.0); Mean Platelet Volume 6.9; Monocytes # (A) 0.6 k/uL (0-1.0); Monocytes % (A) 8 %; Neutrophils # (A) 5.3 k/uL (1.3-7.7); Neutrophils % (A) 68 %; Platelet Count 380 k/uL (150-450); RBC 4.59 m/uL (4.30-5.90); RDW 13.7 % (11.5-15.5); WBC 7.9 k/uL (3.8-10.6)
[2024-04-08 07:06] LABS: African American GFR (CKD) 78 (>60 ml/min/1.73 sqM); Anion Gap 10 mmol/L; Blood Urea Nitrogen 15 mg/dL (9-20); Calcium 9.4 mg/dL (8.4-10.2); Carbon Dioxide 22 mmol/L (22-30); Chloride 103 mmol/L (98-107); Glucose 171 mg/dL (74-99); Magnesium 1.8 mg/dL (1.6-2.3); Non-African American GFR(CKD) 67 (>60 ml/min/1.73 sqM); Potassium 4.4 mmol/L (3.5-5.1); Sodium 135 mmol/L (137-145)
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
[2024-04-08 09:14] VITALS: TEMP 97.9
[2024-04-08] MEDS: KETOROLAC 15 MG/ML 1 ML VIAL IVP PRN (09:22)
[2024-04-08] MEDS: NICOTINE 21MG/24HR PATCH TRANSDERM SCH (09:23)
--- NOTE | 2024-04-08 11:03 | CT ---
EXAMINATION TYPE: CT angio head neck DATE OF EXAM: 04/07/2024 9:40 PM COMPARISON: None. CLINICAL INDICATION: Male, 59 years old with history of Left vertebral occlusion/stenosis., Left vert ebral occlusion/stenosis. TECHNIQUE: CTA scan is performed with axial images are obtained, coronal and sagittal reformatted denia ges are reviewed. 3-D reconstructed images are created on an independent workstation and reviewed. [place] [facility] [place] reviewed. NASCET criteria was used in interpretation of this exam? Contrast used:65ml mL of Isovue 370 with IV Contrast, (none if empty) Oral contrast used: (none if empty) CT DLP: 478.8 mGycm, Automated exposure control for dose reduction was used. FINDINGS: Carotid/Vascular Structures: There is a two-vessel arch with a common origin of the right subclavian common carotid artery from the innominate. Common carotid arteries bifurcate into internal and external carotid arteries without significant rae w limiting stenosis. Right vertebral artery is dominant. The proximal left vertebral artery lacks intravenous contrast. Th ere may be reconstitution within the left vertebral foramen Internal carotid arteries and vertebral arteries are patent to the skull base. Cervical of [place]: Vertebral basilar system appears normal. Posterior cerebral vasculature is unrema rkable. Internal carotid arteries bifurcate normally into A1 and M1 segments. A2 segments are normal. The anterior communicating artery is small but patent. The right posterior communicating artery is absent. The left posterior communicating artery is absent. IMPRESSION: 1. No flow-limiting stenosis bilateral carotid bifurcations. 2. Normal [place] [facility] [place] [facility], , 04/08/2024 11:00 AM
[2024-04-08 11:53] LABS: Glucose,Whole Blood 152 mg/dL (70-110)
--- NOTE | 2024-04-08 12:18 | P.DS ---
Providers Date of admission: 04/02/24 20:59 Expected date of discharge: 04/08/24 Attending physician: Patrizia Dc MD Consults: 04/02/24 20:58 Consult Physician Urgent Consulting Provider: Conrado David Consult Reason/Comments: Altered mental status Do you want consulting provider notified?: Yes 04/03/24 00:39 Consult Physician Routine Consulting Provider: Rodrigo Foster Consult Reason/Comments: AMS Do you want consulting provider notified?: Yes, Notify in am Primary care physician: [facility] Course: Discharge Diagnosis: #COVID-19 positive #Acute toxic-metabolic encephalopathy, resolved #?COVID-19 encephalopathy #Polypharmacy #History of psychiatric disorders #High anion gap metabolic acidosis, resolved #History of alcohol dependence #SIRS, without obvious infectious etiology, resolved # Acute kidney injury, resolved Hospital Course: 59-year-old male with a past medical history of psychiatric disorder, diabetes mellitus, hypertension, mood disorder, and hyperlipidemia admitted to the hospital for acute toxic-metabolic encephalopathy. Initial lab evaluation in the ER was significant for WBC 16, hemoglobin 14.1, MCV 89.1, platelet count 691, neutrophils 12.2, sodium 143, potassium 4.4, bicarb 11, creatinine 1.4, glucose 126, calcium 10.4, and troponin less than 0.012. EKG done in the ER showed heart rate of 121 bpm, no ST segment elevation or depression seen, no T- wave inversions seen. Sinus tachycardia, QTc 396. Chest x-ray shows no acute cardiopulmonary process. CT head shows no acute intracranial process. Urine drug screen positive for TCA. COVID-19 positive on PCR. Patient was started empirically on IV antibiotic and IV antiviral for meningitis versus encephalitis. Neurology and psychiatry were consulted. Medication adjusted as follows: Seroquel increased to 300 mg nightly, Seroquel 50 mg 3 times daily as needed, Lexapro 20 mg daily, BuSpar 15 mg twice daily, Inderal 20 mg daily, Minipress increased to 1 mg nightly. Gabapentin was decreased to 300 3 times daily. Subsequently mental status of patient continued to improve and WBC trended down with negative procalcitonin and normal vital sign. Therefore, em piric treatment was discontinued with low suspicion for meningitis and/or encephalitis. Additionally, EEG was normal, brain MRI did show concern for left vertebral artery occlusion. Follow-up CT angio shows patent bilateral carotid arteries and patent dominant right vertebral artery with a possible reconstitution within the left vertebral foramen. Other etiologies of acute toxicmetabolic encephalopathy ruled out. Patient's mental status is at baseline with encephalopathy being resolved. Patient is hemodynamically stable and medically optimized for discharge. Discharge instruction: Patient is to continue with gabapentin at 300 mg p.o. 3 times daily, reduced dose Jardiance and glipizide are discontinued, continue with metformin 1000 mg p.o. twice daily Patient to continue with psychiatric medications as directed: BuSpar 15 mg p.o. twice daily, Lexapro 20 mg p.o. daily, Seroquel 200 mg p.o. at bedtime, Seroquel 100 mg p.o. at bedtime as needed Patient is advised to follow-up with PCP and psychiatry Patient provided instruction on encephalopathy and COVID-19 Vital signs reviewed. Gen: in no apparent distress, resting comfortably in bed Eyes: PERRL, no scleral injection or icterus HENT: normocephalic, atraumatic, good hearing acuity, moist mucous membranes Neck: full range of motion Resp: CTAB, no rales, rhonchi, or wheezes CVS: normal S1 and S2, no murmurs, rubs or gallops, no edema GI: soft, NTTP, ND, no hepatosplenomegaly : no suprapubic tenderness, no CVAT, camarena catheter is not present MSK: no clubbing, no cyanosis, no noted contractures of extremities Skin: no noted rashes, petechiae; temperature of skin is appropriate Neuro: moving all extremities without signs of weakness, CN II-XII intact Psych: cooperative, euthymic mood, insight and judgment intact A total of 36 minutes of time were spent preparing this complex discharge summary. Patient was discharged on 04/08/2024 at 1153. I have seen and evaluated the patient today. Discussed with the resident and agree with the residents finding and plan as documented in the resident's note. Changes highlighted in blue font. Patient Condition at Discharge: Stable Plan - Discharge Summary New Discharge Prescriptions: New Gabapentin [Neurontin] 300 mg PO TID cap Continue Ketoconazole 2% Cream [Nizoral 2%] 1 applic TOPICAL DAILY Aspirin/Acetaminophen/Caffeine [Excedrin Migraine Caplet] 1 tab PO DAILY PRN PRN Reason: Migraine Headache busPIRone HCL 15 mg PO BID Dulaglutide [Trulicity] 4.5 mg SQ Q7D Escitalopram [Lexapro] 20 mg PO DAILY Famotidine 40 mg PO DAILY Fenofibrate [Lofibra] 160 mg PO DAILY Ferrous Sulfate [Iron (65 MG Elemental)] 325 mg PO DIRECTED Ibuprofen [Motrin] 800 mg PO Q8H PRN PRN Reason: Pain Or Fever > 100.5 metFORMIN HCL [Glucophage] 1,000 mg PO BID Ondansetron Odt [Zofran ODT] 4 mg PO TID PRN PRN Reason: Nausea Pravastatin Sodium [Pravachol] 40 mg PO HS QUEtiapine [SEROquel] 200 mg PO HS Lidocaine 5% Patch [Lidoderm 5% Patch] 1 patch TOPICAL DAILY PRN PRN Reason: Pain Lipase/Protease/Amylase [Cory Cheema 24,000 Unit Capsule] 1 cap PO TID-W/MEALS Melatonin 10 mg PO HS Vitamin D(Unknown Dose) 1 tab PO DAILY Aspirin EC [Ecotrin Low Dose] 81 mg PO DAILY Thiamine [Vitamin B-1] 100 mg PO DAILY Magnesium Oxide [Mag-Ox] 400 mg PO DAILY Pantoprazole Sodium [Protonix] 20 mg PO BID Propranolol HCl 20 mg PO DAILY QUEtiapine [SEROquel] 100 mg PO HS PRN PRN Reason: upon waking in middle of night Changed Prazosin HCl [Minipress] 1 mg PO HS #0 Discontinued Gabapentin 1,200 mg PO TID glipiZIDE [Glucotrol] 20 mg PO BID hydrOXYzine pamoate [Vistaril] 50 mg PO TID PRN PRN Reason: Anxiety Losartan [Cozaar] 25 mg PO BID Pregabalin [Lyrica] 150 mg PO BID Baclofen 10 mg PO HS Cyclobenzaprine [Flexeril] 10 mg PO TID PRN PRN Reason: Muscle Spasm Empagliflozin [Jardiance] 25 mg PO DAILY modafiniL [Provigil] 200 mg PO DAILY Discharge Medication List Lipase/Protease/Amylase [Cory Dr 24,000 Unit Capsule] 1 cap PO TID-W/MEALS 12/15/22 [History] Ketoconazole 2% Cream [Nizoral 2%] 1 applic TOPICAL DAILY 12/29/23 [History] Melatonin 10 mg PO HS 12/29/23 [History] Aspirin EC [Ecotrin Low Dose] 81 mg PO DAILY 03/05/24 [History] Aspirin/Acetaminophen/Caffeine [Excedrin Migraine Caplet] 1 tab PO DAILY PRN 03/05/24 [History] Thiamine [Vitamin B-1] 100 mg PO DAILY 03/05/24 [History] Vitamin D(Unknown Dose) 1 tab PO DAILY 03/05/24 [History] Dulaglutide [Trulicity] 4.5 mg SQ Q7D 04/02/24 [History] Escitalopram [Lexapro] 20 mg PO DAILY 04/02/24 [History] Famotidine 40 mg PO DAILY 04/02/24 [History] Fenofibrate [Lofibra] 160 mg PO DAILY 04/02/24 [History] Ferrous Sulfate [Iron (65 MG Elemental)] 325 mg PO DIRECTED 04/02/24 [History] Ibuprofen [Motrin] 800 mg PO Q8H PRN 04/02/24 [History] Lidocaine 5% Patch [Lidoderm 5% Patch] 1 patch TOPICAL DAILY PRN 04/02/24 [History] Magnesium Oxide [Mag-Ox] 400 mg PO DAILY 04/02/24 [History] Ondansetron Odt [Zofran ODT] 4 mg PO TID PRN 04/02/24 [History] Pantoprazole Sodium [Protonix] 20 mg PO BID 04/02/24 [History] Pravastatin Sodium [Pravachol] 40 mg PO HS 04/02/24 [History] Propranolol HCl 20 mg PO DAILY 04/02/24 [History] QUEtiapine [SEROquel] 100 mg PO HS PRN 04/02/24 [History] QUEtiapine [SEROquel] 200 mg PO HS 04/02/24 [History] busPIRone HCL 15 mg PO BID 04/02/24 [History] metFORMIN HCL [Glucophage] 1,000 mg PO BID 04/02/24 [History] Gabapentin [Neurontin] 300 mg PO TID cap 04/08/24 [Rx] Prazosin HCl [Minipress] 1 mg PO HS #0 04/08/24 [Rx] Follow up Appointment(s)/Referral(s): Marlen Mobley MD [Primary Care Provider] - 1-[address] [facility] [NON-STAFF] - 1 Week Patient Instructions/Handouts: Encephalopathy (DC), COVID-19 (Coronavirus Disease 2019) (DC) Activity/Diet/Wound Care/Special Instructions: Please see your PCP and psychiatry. Discharge Disposition: HOME SELF-CARE
[2024-04-08] MEDS: SENNOSIDES 8.6 MG TAB PO SCH (12:20)
[2024-04-08 12:26] VITALS: BP 122/87; PULSE 93
--- NOTE | 2024-04-08 13:42 | CDI ---
Documentation Clarification Form Date: 04/08/2024 01:28:14 PM From: Pat Roland RN CCDS Phone: [phone] Admit Date: 04/02/2024 08:59:00 PM Patient Name: Andrea Elliott Visit Number: [id number] Discharge Date: ATTENTION: The Clinical Documentation Specialists (CDI) and [facility] Coding Staff appreciate your assistance in clarifying documentation. Please respond to the clarification below the line at the bottom and electronically sign. The CDI & [facility] Coding staff will review the response and follow-up if needed. Please note: Queries are made part of the Legal Health Record. If you have any questions, please contact the author of this message via ITS. Doctor: Jalen Del Toro Euglycemic DKA is last documented on 04/03, Medicine note, but is not noted in subsequent documentation. Clarification is requested. History/Risk Factors: 59 year old male presents to the ED with altered mental state. Medical History: Type 2DM, HTN, Alcohol abuse, cirrhosis and history of euglycemic DKA. 04/02, HP Clinical Indicators: 04/02, Labs: Glucose 126, Lactic acid 1.9, Acetone, Qual Positive, Carbon dioxide 8, Chl 109, BUN 32 Cr 1.78. 04/02, Urine: Protein trace, Glucose 4+, Ketones 2+ 04/03 Blood gas right radial: ph 7.45, pCO2 20, pO2 92, HCO3 14, Total CO2 15 Treatment: 04/02 0.9NS 1L IVF x 1; Vitamin B1 IM x 1; 04/03 04/04 D5% NS 100cc/hr;; 04/03 0.9NS 1L IVF x 1; Please clarify if the Euglycemic DKA is: [ ] Euglycemic DKA confirmed, resolved [ x ] Other condition, please specify ___starvation ketoacidosis___ [ ] Unable to determine (Template Last Revised: July 2020) MTDD
[2024-04-08 23:32] LABS: Chol/HDL Ratio 4.94 Ratio; LDL Cholesterol,Calculated 101.3 mg/dL (0.0-131.0)
== END 2024-04-08 13:44 | disposition home or self-care (01) | DRG 177 ==
LOC: EC 18:19 → MERGE 20:59 → 5NMEDONC 20:59 → 3SCARD 04-03 01:25
PROVIDERS: ADMIT Internal Medicine; ATTEND Internal Medicine
DX: U07.1 COVID-19 (principal); G92.8 Other toxic encephalopathy; N17.9 Acute kidney failure, unspecified; E87.29 Other acidosis; E87.1 Hypo-osmolality and hyponatremia; R65.10 Systemic inflammatory response syndrome (SIRS) of non-infectious origin without acute organ dysfunction; E78.5 Hyperlipidemia, unspecified; I12.9 Hypertensive chronic kidney disease with stage 1 through stage 4 chronic kidney disease, or unspecified chronic kidney disease; N18.9 Chronic kidney disease, unspecified; K74.60 Unspecified cirrhosis of liver; V89.2XXA Person injured in unspecified motor-vehicle accident, traffic, initial encounter; Y92.410 Unspecified street and highway as the place of occurrence of the external cause; Z96.643 Presence of artificial hip joint, bilateral; F41.0 Panic disorder [episodic paroxysmal anxiety]; F40.10 Social phobia, unspecified; F31.9 Bipolar disorder, unspecified; F41.1 Generalized anxiety disorder; F17.200 Nicotine dependence, unspecified, uncomplicated; F25.9 Schizoaffective disorder, unspecified; E11.22 Type 2 diabetes mellitus with diabetic chronic kidney disease; E83.52 Hypercalcemia; F10.10 Alcohol abuse, uncomplicated; F43.10 Post-traumatic stress disorder, unspecified; G25.2 Other specified forms of tremor; Z79.82 Long term (current) use of aspirin; Z79.84 Long term (current) use of oral hypoglycemic drugs; Z79.899 Other long term (current) drug therapy
CPT/HCPCS: 36415; 36600; 70450; 70496; 70498; 70551; 71046; 80048; 80053; 80061; 80179; 80306; 80320; 81003; 82009; 82140; 82607; 82803; 82805; 83605; 83735; 83930; 84145; 84439; 84443; 84484; 84600; 85025; 85610; 85730; 86140; 87636; 93005; 95816; 96365; 96366; 96367; 96368; 96372; 96375; 96376; 99285

== ENCOUNTER 2024-04-21 00:25 | Emergency (ER) | payer MEDICARE ==
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
[2024-04-21] MEDS: CYCLOBENZAPRINE 10 MG TAB PO STA (01:10)
[2024-04-21] MEDS: diazePAM 2 MG TAB PO STA (01:10)
[2024-04-21] MEDS: KETOROLAC 15 MG/ML 1 ML VIAL IM STA (01:10)
--- NOTE | 2024-04-21 01:25 | US ---
EXAMINATION TYPE: US venous doppler duplex LE LT DATE OF EXAM: 04/21/2024 12:57 AM COMPARISON: NONE CLINICAL INDICATION: Male, 59 years old with history of left groin pain; Left groin pain, TECHNIQUE: The lower extremity deep venous system is examined utilizing real time linear array sonog anastasiia with graded compression, color doppler sonography, and spectral doppler. SIDE PERFORMED: Left FINDINGS: VESSELS IMAGED: Common Femoral Vein Deep Femoral Vein Greater Saphenous Vein * Femoral Vein Popliteal Vein Small Saphenous Vein * Proximal Calf Veins (* superficial vessels) Left Leg: Negative for DVT, Color Doppler imaging shows patency of the vessels. Spectral waveforms a re within normal limits. IMPRESSION: 1. No evidence of deep vein thrombosis of the left lower extremity. [facility], , 04/21/2024 1:22 AM
--- NOTE | 2024-04-21 01:38 | XR ---
EXAMINATION TYPE: XR pelvis AP view, XR femur LT DATE OF EXAM: 04/21/2024 CLINICAL HISTORY: Left hip/groin pain for one day. TECHNIQUE: A single AP view of the pelvis is obtained. Two views of the left femur are obtained. COMPARISON: Prior whole body CT March 28, 2024. FINDINGS: Surgical change to the lumbar spine extending into the sacrum and bilateral iliac bones is partially imaged. Metallic artifact from bilateral total hip arthroplasty is redemonstrated. No acute displaced fracture in the pelvis or left femur. Pubic symphysis is intact. Left-sided pelvic phleboliths are s een otherwise overlying soft tissues unremarkable IMPRESSION: There is no acute findings in the pelvis or left femur. [facility], , 04/21/2024 1:36 AM
[2024-04-21 03:09] VITALS: BP 148/97; PULSE 87; RESP 16; TEMP 97.2
== END 2024-04-21 03:16 | disposition home or self-care (01) ==
LOC: EC 00:25
DX: M62.838 Other muscle spasm (principal); R10.32 Left lower quadrant pain; I10 Essential (primary) hypertension; E11.9 Type 2 diabetes mellitus without complications; E78.5 Hyperlipidemia, unspecified; F17.290 Nicotine dependence, other tobacco product, uncomplicated; Z88.1 Allergy status to other antibiotic agents; Z88.8 Allergy status to other drugs, medicaments and biological substances
CPT/HCPCS: 99284; 96372; 72170; 73552; 93971; J1885

== ENCOUNTER 2024-04-22 05:35 | Emergency (ER) | payer MEDICARE ==
[2024-04-22 05:41] VITALS: TEMP 98.3
--- NOTE | 2024-04-22 06:30 | ED ---
Recheck HPI - General Chief Complaint: Recheck/Abnormal Lab/Rx Stated Complaint: Low Back Pain Time Seen by Provider: 04/22/24 05:50 Source: patient, EMS, RN notes reviewed Mode of arrival: EMS - History of Present Illness Initial Comments: This is a 59-year-old male presenting to the emergency department via EMS for chief complaint of lumbar back pain with radiation into his left hip and groin that started yesterday. Patient states that he was evaluated yesterday evening for similar symptoms. States that today he is having paresthesias of his left lower extremity most notable to his left calf. Patient denies any known recent falls/traumas or injuries. Denies loss of bladder or bowel continence or saddle anesthesias. Patient had previous lumbar procedure with Dr. Schuster's and completed last year. Patient's recent follow-up was about 1 week ago. Denies hematuria, dysuria, increased urinary frequency or urgency. 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 - Related Data Home Medications Medication Instructions Recorded Confirmed Lipase/Protease/Amylase [Cory Cheema 1 cap PO TID-W/MEALS 12/15/22 04/03/24 24,000 Unit Capsule] Ketoconazole 2% Cream [Nizoral 2%] 1 applic TOPICAL DAILY 12/29/23 04/03/24 Melatonin 10 mg PO HS 12/29/23 04/03/24 Aspirin EC [Ecotrin Low Dose] 81 mg PO DAILY 03/05/24 04/03/24 Aspirin/Acetaminophen/Caffeine 1 tab PO DAILY PRN 03/05/24 04/03/24 [Excedrin Migraine Caplet] Thiamine [Vitamin B-1] 100 mg PO DAILY 03/05/24 04/03/24 Vitamin D(Unknown Dose) 1 tab PO DAILY 03/05/24 04/03/24 Dulaglutide [Trulicity] 4.5 mg SQ Q7D 04/02/24 04/03/24 Escitalopram [Lexapro] 20 mg PO DAILY 04/02/24 04/02/24 Famotidine 40 mg PO DAILY 04/02/24 04/03/24 Fenofibrate [Lofibra] 160 mg PO DAILY 04/02/24 04/03/24 Ferrous Sulfate [Iron (65 MG 325 mg PO DIRECTED 04/02/24 04/03/24 Elemental)] Ibuprofen [Motrin] 800 mg PO Q8H PRN 04/02/24 04/03/24 Lidocaine 5% Patch [Lidoderm 5% 1 patch TOPICAL DAILY PRN 04/02/24 04/03/24 Patch] Magnesium Oxide [Mag-Ox] 400 mg PO DAILY 04/02/24 04/02/24 Ondansetron Odt [Zofran ODT] 4 mg PO TID PRN 04/02/24 04/03/24 Pantoprazole Sodium [Protonix] 20 mg PO BID 04/02/24 04/02/24 Pravastatin Sodium [Pravachol] 40 mg PO HS 04/02/24 04/02/24 Propranolol HCl 20 mg PO DAILY 04/02/24 04/02/24 QUEtiapine [SEROquel] 100 mg PO HS PRN 04/02/24 04/02/24 QUEtiapine [SEROquel] 200 mg PO HS 04/02/24 04/02/24 busPIRone HCL 15 mg PO BID 04/02/24 04/02/24 metFORMIN HCL [Glucophage] 1,000 mg PO BID 04/02/24 04/02/24 Previous Rx's Medication Instructions Recorded Gabapentin [Neurontin] 300 mg PO TID cap 04/08/24 Prazosin HCl [Minipress] 1 mg PO HS #0 04/08/24 Cyclobenzaprine [Flexeril] 10 mg PO BID PRN #10 tab 04/21/24 Cyclobenzaprine [Flexeril] 10 mg PO TID PRN #15 tab 04/22/24 Ketorolac [Toradol] 10 mg PO Q8HR #15 tab 04/22/24 Allergies Allergy/AdvReac Type Severity Reaction Status Date / Time thimerosal Allergy Severe Rash/Hives/throat Verified 04/21/24 00:30 swelling neomycin Allergy Rash/Hives Verified 04/21/24 00:30 Review of Systems ROS Statement: Those systems with pertinent positive or pertinent negative responses have been documented in the HPI. ROS Other: All systems not noted in ROS Statement are negative. Past Medical History Past Medical History: Diabetes Mellitus, GERD/Reflux, Hyperlipidemia, Hypertension, Liver Disease, Renal Disease Additional Past Medical History / Comment(s): Neuropathy, back pain raditating to legs, Cirrhosis, "kidneys don't always work right." , pancreatitis History of Any Multi-Drug Resistant Organisms: None Reported Past Surgical History: Heart Catheterization, Joint Replacement, Orthopedic Surgery Additional Past Surgical History / Comment(s): Bilateral cataracts removed, bilateral hip replacements, right heal surgery with screws/plates/pins placed, L2-L4 cage fussion Past Anesthesia/Blood Transfusion Reactions: No Reported Reaction Past Psychological History: Anxiety, Bipolar, Depression, PTSD, Schizoaffective Disorder Smoking Status: Vaper Past Alcohol Use History: None Reported Past Drug Use History: None Reported - Past Family History Father Family Medical History: Myocardial Infarction (SD) Additional Family Medical History / Comment(s): [place] in mid 30's. Mother Family Medical History: Dementia family Additional Family Medical History / Comment(s): Anxiety. General Exam General appearance: alert, in no apparent distress Eye exam: Present: normal appearance, PERRL, EOMI. Absent: scleral icterus, conjunctival injection, periorbital swelling Neck exam: Present: normal inspection. Absent: tenderness, meningismus, lymphadenopathy Respiratory exam: Present: normal lung sounds bilaterally. Absent: respiratory distress, wheezes, rales, rhonchi, stridor Cardiovascular Exam: Present: regular rate, normal rhythm, normal heart sounds. Absent: systolic murmur, diastolic murmur, rubs, gallop, clicks GI/Abdominal exam: Present: soft, normal bowel sounds. Absent: distended, tenderness, guarding, rebound, rigid Extremities exam: Present: normal inspection, full ROM, normal capillary refill, other (parasthesias to LLE). Absent: tenderness, pedal edema, joint swelling, calf tenderness Back exam: Present: normal inspection, tenderness (lumbar spine). Absent: CVA tenderness (R), CVA tenderness (L) Neurological exam: Present: alert, oriented X3, CN II-XII intact Skin exam: Present: warm, dry, intact, normal color. Absent: rash Course Vital Signs 04/22/24 04/22/24 05:37 07:35 Temperature 98.3 F Pulse Rate 99 105 H Respiratory 16 18 Rate Blood Pressure 133/58 114/89 O2 Sat by Pulse 102 H 98 Oximetry Medical Decision Making - Medical Decision Making Was pt. sent in by a medical professional or institution (, PA, TECHNICAL PUBLICATIONS MANAGER, urgent care, hospital, or penitentiary...) When possible be specific @ -No Did you speak to anyone other than the patient for history (EMS, parent, family, police, friend...)? What history was obtained from this source @ -No Did you review nursing and triage notes (agree or disagree)? Why? @ -I reviewed and agree with nursing and triage notes Were old charts reviewed (outside hosp., previous admission, EMS record, old EKG, old radiological studies, urgent care reports/EKG's, penitentiary records)? Report findings @ -Start note from 04/22/2025 were undermined x-ray imaging ultrasound that were unremarkable. Patient was discharged home in stable condition with muscle relaxers to take as needed for pain. Differential Diagnosis (chest pain, altered mental status, abdominal pain women, abdominal pain men, vaginal bleeding, weakness, fever, dyspnea, syncope, headache, dizziness, GI bleed, back pain, seizure, CVA, palpatations, mental health, musculoskeletal)? @ -Differential Back Pain: Strain, zoster, cauda equina syndrome, epidural abscess, vertebral osteomyelitis, discitis, fracture, subluxation, disc herniation, DJD, spinal stenosis, dissection, AAA, pancreatitis, peptic ulcer disease, pyelonephritis, kidney stone, this is not meant to be an all-inclusive list. EKG interpreted by me (3pts min.). @ -none X-rays interpreted by me (1pt min.). @ -None done CT interpreted by me (1pt min.). @ -None done U/S interpreted by me (1pt. min.). @ -None done What testing was considered but not performed or refused? (CT, X-rays, U/S, labs)? Why? @ -None What meds were considered but not given or refused? Why? @ -None Did you discuss the management of the patient with other professionals (professionals i.e. , PA, TECHNICAL PUBLICATIONS MANAGER, lab, RT, psych nurse, social worker delinquency prevention, national stormwater leader, teacher, employment security officer, showcase maker)? Give summary @ -No Was smoking cessation discussed for >3mins.? @ -No Was critical care preformed (if so, how long)? @ -No Were there social determinants of health that impacted care today? How? (Homelessness, low income, unemployed, alcoholism, drug addiction, transportation, low edu. Level, literacy, decrease access to med. care, skilled nursing, rehab)? @ -No Was there de-escalation of care discussed even if they declined (Discuss DNR or withdrawal of care, Hospice)? DNR status @ -No What co-morbidities impacted this encounter? (DM, HTN, Smoking, COPD, CAD, Cancer, CVA, ARF, Chemo, Hep., AIDS, mental health diagnosis, sleep apnea, morbid obesity)? @ -None Was patient admitted / discharged? Hospital course, mention meds given and route, prescriptions, significant lab abnormalities, going to OR and other pertinent info. @ -Discharge. 59-year-old male with lumbar back pain. On evaluation patient noted to have full range of motion lumbar spine that is exacerbated with palpation and on range of motion. Patient has strength of bilateral lower extremities with no acute neurological deficits. Patient is provided with dose of muscle relaxer and pain medication. On reevaluation states that he is feeling markedly better. Sent a prescription for Flexeril to take only as needed. Recommend that he continue to take Tylenol and Motrin and follow-up with point of care specialist for further evaluation. Discussed with Dr. Woods Undiagnosed new problem with uncertain prognosis? @ -No Drug Therapy requiring intensive monitoring for toxicity (Heparin, Nitro, Insulin, Cardizem)? @ -No Were any procedures done? @ -No Diagnosis/symptom? @ -lumbar back pain Acute, or Chronic, or Acute on Chronic? @ -acute Uncomplicated (without systemic symptoms) or Complicated (systemic symptoms)? @ -uncomplicated Side effects of treatment? @ -No Exacerbation, Progression, or Severe Exacerbation? @ -No Poses a threat to life or bodily function? How? (Chest pain, USA, [place], pneumonia, PE, COPD, DKA, ARF, appy, cholecystitis, CVA, Diverticulitis, Homicidal, Suicidal, threat to staff... and all critical care pts) @ -No Disposition Clinical Impression: Back pain Disposition: HOME SELF-CARE Condition: Good Additional Instructions: Please return to the Emergency Department if symptoms worsen or any other concerns. Flexeril as needed for muscle spasms. Take Toradol as needed for pain. Do not combine Toradol with Motrin. Prescriptions: Cyclobenzaprine [Flexeril] 10 mg PO TID PRN #15 tab PRN Reason: Muscle Spasm Ketorolac [Toradol] 10 mg PO Q8HR #15 tab Is patient prescribed a controlled substance at d/c from ED?: No Referrals: Marlen Mobley MD [Primary Care Provider] - 1-2 days Time of Disposition: 07:26
[2024-04-22] MEDS: KETOROLAC 15 MG/ML 1 ML VIAL IM STA (06:39)
[2024-04-22] MEDS: ORPHENADRINE 30 MG/ML 2 ML VIAL IM STA (06:39)
[2024-04-22 07:37] VITALS: BP 114/89; PULSE 105; RESP 18
== END 2024-04-22 07:38 | disposition home or self-care (01) ==
LOC: EC 05:35
DX: M54.50 Low back pain, unspecified (principal); F17.290 Nicotine dependence, other tobacco product, uncomplicated; Z88.8 Allergy status to other drugs, medicaments and biological substances
CPT/HCPCS: 99283 ×2; 96372 ×3; J2360; J1885

== ENCOUNTER 2024-05-01 14:36 | Inpatient (IN) | payer MEDICARE ==
--- NOTE | 2024-05-01 15:34 | ED ---
Back Pain HPI - General Chief Complaint: Back Pain/Injury Stated Complaint: BACK PAIN Time Seen by Provider: 05/01/24 15:19 Source: patient, RN notes reviewed, old records reviewed Limitations: no limitations - History of Present Illness Initial Comments: This is a 59-year-old male to the ER for evaluation patient presents today for evaluation regards to back pain severe back pain with recent hospital admission for same. Patient spoke with his back surgeon who did send him to the ER today MD Complaint: back pain -: week(s) Similar Symptoms Previously: Yes Place: home Radiation: none Severity: severe Severity scale (1-10): 10 Quality: sharp Consistency: constant Improves With: none Worsens With: none Associated Symptoms: denies other symptoms Treatments Prior to Arrival: other (0) - Related Data Home Medications Medication Instructions Recorded Confirmed Lipase/Protease/Amylase [Creon Dr 1 cap PO TID-W/MEALS 12/15/22 05/01/24 24,000 Unit Capsule] Ketoconazole 2% Cream [Nizoral 2%] 1 applic TOPICAL DAILY 12/29/23 05/01/24 Melatonin 10 mg PO HS 12/29/23 05/01/24 Aspirin EC [Ecotrin Low Dose] 81 mg PO DAILY 03/05/24 05/01/24 Aspirin/Acetaminophen/Caffeine 1 tab PO DAILY PRN 03/05/24 05/01/24 [Excedrin Migraine Caplet] Thiamine [Vitamin B-1] 100 mg PO DAILY 03/05/24 05/01/24 Vitamin D(Unknown Dose) 1 tab PO DAILY 03/05/24 05/01/24 Escitalopram [Lexapro] 20 mg PO DAILY 04/02/24 05/01/24 Famotidine 40 mg PO DAILY 04/02/24 05/01/24 Fenofibrate [Lofibra] 160 mg PO DAILY 04/02/24 05/01/24 Ferrous Sulfate [Iron (65 MG 325 mg PO MOWEFR 04/02/24 05/01/24 Elemental)] Ibuprofen [Motrin] 800 mg PO Q8H PRN 04/02/24 05/01/24 Lidocaine 5% Patch [Lidoderm 5% 1 patch TOPICAL DAILY PRN 04/02/24 05/01/24 Patch] Magnesium Oxide [Mag-Ox] 400 mg PO DAILY 04/02/24 05/01/24 Ondansetron Odt [Zofran ODT] 4 mg PO TID PRN 04/02/24 05/01/24 Pantoprazole Sodium [Protonix] 20 mg PO BID 04/02/24 05/01/24 Pravastatin Sodium [Pravachol] 40 mg PO HS 04/02/24 05/01/24 QUEtiapine [SEROquel] 100 mg PO HS PRN 04/02/24 05/01/24 QUEtiapine [SEROquel] 200 mg PO HS 04/02/24 05/01/24 busPIRone HCL 15 mg PO BID 04/02/24 05/01/24 metFORMIN HCL [Glucophage] 1,000 mg PO BID 04/02/24 05/01/24 Celecoxib 200 mg PO BID 05/01/24 05/01/24 Gabapentin 1,200 mg PO TID 05/01/24 05/01/24 Prazosin HCl [Minipress] 2 mg PO HS 05/01/24 05/01/24 modafiniL [Provigil] 200 mg PO DAILY PRN 05/01/24 05/01/24 Previous Rx's Medication Instructions Recorded Cyclobenzaprine [Flexeril] 10 mg PO TID PRN #15 tab 04/22/24 Allergies Allergy/AdvReac Type Severity Reaction Status Date / Time thimerosal Allergy Severe Rash/Hives/throat Verified 05/01/24 17:59 swelling neomycin Allergy Rash/Hives Verified 05/01/24 17:59 Review of Systems ROS Statement: Those systems with pertinent positive or pertinent negative responses have been documented in the HPI. ROS Other: All systems not noted in ROS Statement are negative. Past Medical History Past Medical History: Diabetes Mellitus, GERD/Reflux, Hyperlipidemia, Hypertension, Liver Disease, Renal Disease Additional Past Medical History / Comment(s): Neuropathy, back pain raditating to legs, Cirrhosis, "kidneys don't always work right." , pancreatitis History of Any Multi-Drug Resistant Organisms: None Reported Past Surgical History: Heart Catheterization, Joint Replacement, Orthopedic Surgery Additional Past Surgical History / Comment(s): Bilateral cataracts removed, bilateral hip replacements, right heal surgery with screws/plates/pins placed, L2-L4 cage fussion Past Anesthesia/Blood Transfusion Reactions: No Reported Reaction Past Psychological History: Anxiety, Bipolar, Depression, PTSD, Schizoaffective Disorder Smoking Status: Vaper Past Alcohol Use History: None Reported Past Drug Use History: None Reported - Past Family History Father Family Medical History: Myocardial Infarction (SC) Additional Family Medical History / Comment(s): [place] in mid 30's. Mother Family Medical History: Dementia family Additional Family Medical History / Comment(s): Anxiety. General Exam Limitations: no limitations General appearance: alert, in no apparent distress Head exam: Present: atraumatic, normocephalic, normal inspection Eye exam: Present: normal appearance, PERRL, EOMI. Absent: scleral icterus, conjunctival injection, periorbital swelling ENT exam: Present: normal exam, mucous membranes moist Neck exam: Present: normal inspection. Absent: tenderness, meningismus, lymphadenopathy Respiratory exam: Present: normal lung sounds bilaterally. Absent: respiratory distress, wheezes, rales, rhonchi, stridor Cardiovascular Exam: Present: regular rate, normal rhythm, normal heart sounds. Absent: systolic murmur, diastolic murmur, rubs, gallop, clicks GI/Abdominal exam: Present: soft, normal bowel sounds. Absent: distended, t enderness, guarding, rebound, rigid Extremities exam: Present: normal inspection, full ROM, normal capillary refill. Absent: tenderness, pedal edema, joint swelling, calf tenderness Back exam: Present: normal inspection Neurological exam: Present: alert, oriented X3, CN II-XII intact Psychiatric exam: Present: normal affect, normal mood Skin exam: Present: warm, dry, intact, normal color. Absent: rash Course Vital Signs 05/01/24 05/01/24 05/01/24 14:40 18:28 22:46 Temperature 97.7 F 97.3 F L Pulse Rate 111 H 66 72 Pulse Rate [ Pulse Oximetery ] Respiratory 15 18 18 Rate Blood Pressure 105/65 97/67 118/80 Blood Pressure [Right Arm] O2 Sat by Pulse 97 98 99 Oximetry 05/01/24 23:02 Temperature 97.8 F Pulse Rate Pulse Rate [ 86 Pulse Oximetery ] Respiratory 16 Rate Blood Pressure Blood Pressure 112/74 [Right Arm] O2 Sat by Pulse 94 L Oximetry - Reevaluation(s) Reevaluation #1: 05/01/24 17:52 Medical records reviewed Reevaluation #2: 05/01/24 17:52 Patient symptoms improved Reevaluation #3: 12/05/24 17:52 Patient informed of results and questions answered Reevaluation #4: Was pt. sent in by a medical professional or institution (JACQUES Bryan, READING PROFESSOR, urgent care, hospital, or jail...) When possible be specific @ -no Did you speak to anyone other than the patient for history (EMS, parent, family, police, friend...)? What history was obtained from this source @ -no Did you review nursing and triage notes (agree or disagree)? Why? @ -agree Are old charts reviewed (outside hosp., previous admission, EMS record, old EKG, old radiological studies, urgent care reports/EKG's, jail records)? Report findings @ -yes Differential Diagnosis (chest pain, altered mental status, abdominal pain women, abdominal pain men, vaginal bleeding, weakness, fever, dyspnea, syncope, headache, dizziness, GI bleed, back pain, seizure, CVA, palpatations, mental health, musculoskeletal)? @ -prior EKG interpreted by me (3pts min.). @ -yes X-rays interpreted by me (1pt min.). @ -no CT interpreted by me (1pt min.). @ -no U/S interpreted by me (1pt. min.). @ -no What testing was considered but not performed or refused? (CT, X-rays, U/S, labs)? Why? @ -none What meds were considered but not given or refused? Why? @ -none Did you discuss the management of the patient with other professionals (carin bridges i.e. JACQUES Bryan, READING PROFESSOR, lab, RT, psych nurse, director of social work, quality eng, teacher, police commanding officer, caser up)? Give summary @ -no Was smoking cessation discussed for >3mins.? @ -no Was critical care preformed (if so, how long)? @ -no Were there social determinants of health that impacted care today? How? (Homelessness, low income, unemployed, alcoholism, drug addiction, transportation, low edu. Level, literacy, decrease access to med. care, fpc, rehab)? @ -none Was there de-escalation of care discussed even if they declined (Discuss DNR or withdrawal of care, Hospice)? DNR status @ -no What co-morbidities impacted this encounter? (DM, HTN, Smoking, COPD, CAD, Cancer, CVA, ARF, Chemo, Hep., AIDS, mental health diagnosis, sleep apnea, morbid obesity)? @ -none Was patient admitted / discharged? Hospital course, mention meds given and route, prescriptions, significant lab abnormalities, going to OR and other pertinent info. @ - 59 male to the ED co acute on chronic severe back pain. Patient will be admitted for pain control Admitted Undiagnosed new problem with uncertain prognosis? @ -no Drug Therapy requiring intensive monitoring for toxicity (Heparin, Nitro, Insulin, Cardizem)? @ -no Were any procedures done? @ -no Diagnosis/symptom? @ -Chronic back pain Acute, or Chronic, or Acute on Chronic? @ -Acute Uncomplicated (without systemic symptoms) or Complicated (systemic symptoms)? @ -Complicated Side effects of treatment? @ -no Exacerbation, Progression, or Severe Exacerbation? @ -exacerbation Poses a threat to life or bodily function? How? (Chest pain, USA, [place], pneumonia, PE, COPD, DKA, ARF, appy, cholecystitis, CVA, Diverticulitis, Homicidal, Suicidal, threat to staff... and all critical care pts) @ -no Reevaluation #5: Differential Back Pain: Strain, zoster, cauda equina syndrome, epidural abscess, vertebral osteomyelitis, discitis, fracture, subluxation, disc herniation, DJD, spinal stenosis, dissection, AAA, pancreatitis, peptic ulcer disease, pyelonephritis, kidney stone, this is not meant to be an all-inclusive list. - Consultations Consultation #1: Spoke with [facility] who agrees to admit this patient Medical Decision Making - Medical Decision Making 59 male to the ED co acute on chronic severe back pain. Patient will be a dmitted for pain control - Lab Data Result diagrams: 05/04/24 06:56 05/04/24 06:56 Lab Results 05/01/24 05/01/24 05/01/24 Range/Units 16:47 16:58 16:58 WBC 10.8 H (3.8-10.6) k/uL RBC 4.24 L (4.30-5.90) m/uL Hgb 12.3 L (13.0-17.5) gm/dL Hct 37.7 L (39.0-53.0) % MCV 89.1 (80.0-100.0) fL MCH 29.0 (25.0-35.0) pg MCHC 32.5 (31.0-37.0) g/dL RDW 13.8 (11.5-15.5) % Plt Count 591 H (150-450) k/uL MPV 7.4 Neutrophils % 73 % Lymphocytes % 16 % Monocytes % 6 % Eosinophils % 4 % Basophils % 1 % Neutrophils # 7.9 H (1.3-7.7) k/uL Lymphocytes # 1.7 (1.0-4.8) k/uL Monocytes # 0.6 (0-1.0) k/uL Eosinophils # 0.4 (0-0.7) k/uL Basophils # 0.1 (0-0.2) k/uL PT 10.1 (10.0-12.5) sec INR 0.9 (<1.2) APTT 24.5 (22.0-30.0) sec Sodium (137-145) mmol/L Potassium (3.5-5.1) mmol/L Chloride (98-107) mmol/L Carbon Dioxide (22-30) mmol/L Anion Gap mmol/L BUN (9-20) mg/dL Creatinine (0.66-1.25) mg/dL Est GFR (CKD-EPI)AfAm (>60 ml/min/1.73 sqM) Est GFR (CKD-EPI)NonAf (>60 ml/min/1.73 sqM) Glucose (74-99) mg/dL Plasma Lactic Acid Ender (0.7-2.0) mmol/L Calcium (8.4-10.2) mg/dL Phosphorus (2.5-4.5) mg/dL Magnesium (1.6-2.3) mg/dL Total Bilirubin (0.2-1.3) mg/dL AST (17-59) U/L ALT (4-49) U/L Alkaline Phosphatase (38-126) U/L Troponin I (0.000-0.034) ng/mL NT-Pro-B Natriuret Pep pg/mL Total Protein (6.3-8.2) g/dL Albumin (3.5-5.0) g/dL Urine Color Yellow Urine Appearance Clear (Clear) Urine pH 5.5 (5.0-8.0) Ur Specific [place] 1.019 (1.001-1.035) Urine Protein Negative (Negative) Urine Glucose (UA) Negative (Negative) Urine Ketones Negative (Negative) Urine Blood Negative (Negative) Urine Nitrite Negative (Negative) Urine Bilirubin Negative (Negative) Urine Urobilinogen <2.0 (<2.0) mg/dL Ur Leukocyte Esterase Negative (Negative) 05/01/24 05/01/24 05/01/24 Range/Units 16:58 16:58 16:58 WBC (3.8-10.6) k/uL RBC (4.30-5.90) m/uL Hgb (13.0-17.5) gm/dL Hct (39.0-53.0) % MCV (80.0-100.0) fL MCH (25.0-35.0) pg MCHC (31.0-37.0) g/dL RDW (11.5-15.5) % Plt Count (150-450) k/uL MPV Neutrophils % % Lymphocytes % % Monocytes % % Eosinophils % % Basophils % % Neutrophils # (1.3-7.7) k/uL Lymphocytes # (1.0-4.8) k/uL Monocytes # (0-1.0) k/uL Eosinophils # (0-0.7) k/uL Basophils # (0-0.2) k/uL PT (10.0-12.5) sec INR (<1.2) APTT (22.0-30.0) sec Sodium 139 (137-145) mmol/L Potassium 4.8 (3.5-5.1) mmol/L Chloride 104 (98-107) mmol/L Carbon Dioxide 24 (22-30) mmol/L Anion Gap 11 mmol/L BUN 40 H (9-20) mg/dL Creatinine 1.58 H (0.66-1.25) mg/dL Est GFR (CKD-EPI)AfAm 54 (>60 ml/min/1.73 sqM) Est GFR (CKD-EPI)NonAf 47 (>60 ml/min/1.73 sqM) Glucose 136 H (74-99) mg/dL Plasma Lactic Acid Ender 1.4 (0.7-2.0) mmol/L Calcium 9.5 (8.4-10.2) mg/dL Phosphorus 3.7 (2.5-4.5) mg/dL Magnesium 2.0 (1.6-2.3) mg/dL Total Bilirubin 0.4 (0.2-1.3) mg/dL AST 20 (17-59) U/L ALT 24 (4-49) U/L Alkaline Phosphatase 85 (38-126) U/L Troponin I <0.012 (0.000-0.034) ng/mL NT-Pro-B Natriuret Pep 246 pg/mL Total Protein 7.7 (6.3-8.2) g/dL Albumin 4.7 (3.5-5.0) g/dL Urine Color Urine Appearance (Clear) Urine pH (5.0-8.0) Ur Specific [place] (1.001-1.035) Urine Protein (Negative) Urine Glucose (UA) (Negative) Urine Ketones (Negative) Urine Blood (Negative) Urine Nitrite (Negative) Urine Bilirubin (Negative) Urine Urobilinogen (<2.0) mg/dL Ur Leukocyte Esterase (Negative) - EKG Data -: EKG Interpreted by Me (This EKG is sinus 96 MT 135 QRS 105 QTc 388) Disposition Clinical Impression: Back pain, Muscle spasm, Mid back pain, Sciatica Disposition: ADMITTED IP TO THIS HOSP Condition: Fair Is patient prescribed a controlled substance at d/c from ED?: No Time of Disposition: 17:50
[2024-05-01 16:54] LABS: Appearance,Urine Clear (Clear); Bilirubin,Urine Negative (Negative); Blood,Urine Negative (Negative); Color,Urine Yellow; Glucose,Urine (UA) Negative (Negative); Ketones,Urine Negative (Negative); Leukocyte Esterase,Urine Negative (Negative); Nitrite,Urine Negative (Negative); PH, Urine 5.5 (5.0-8.0); Protein,Urine Negative (Negative); Specific Gravity,Urine 1.019 (1.001-1.035); Urobilinogen,Urine <2.0 mg/dL (<2.0)
[2024-05-01 17:12] LABS: Basophils # (A) 0.1 k/uL (0-0.2); Basophils % (A) 1 %; Eosinophils # (A) 0.4 k/uL (0-0.7); Eosinophils % (A) 4 %; HCT 37.7 % (39.0-53.0); HGB 12.3 gm/dL (13.0-17.5); Lymphocytes # (A) 1.7 k/uL (1.0-4.8); Lymphocytes % (A) 16 %; MCHC 32.5 g/dL (31.0-37.0); MCV 89.1 fL (80.0-100.0); Mean Platelet Volume 7.4; Monocytes # (A) 0.6 k/uL (0-1.0); Monocytes % (A) 6 %; Neutrophils # (A) 7.9 k/uL (1.3-7.7); Neutrophils % (A) 73 %; Platelet Count 591 k/uL (150-450); RBC 4.24 m/uL (4.30-5.90); RDW 13.8 % (11.5-15.5); WBC 10.8 k/uL (3.8-10.6)
[2024-05-01] MEDS: HYDROmorphone 1 MG/ML 1 ML SYRINGE IVP STA (17:18)
[2024-05-01 17:19] LABS: ALT 24 U/L (4-49); AST 20 U/L (17-59); African American GFR (CKD) 54 (>60 ml/min/1.73 sqM); Albumin 4.7 g/dL (3.5-5.0); Alkaline Phosphatase 85 U/L (38-126); Anion Gap 11 mmol/L; Blood Urea Nitrogen 40 mg/dL (9-20); Calcium 9.5 mg/dL (8.4-10.2); Carbon Dioxide 24 mmol/L (22-30); Chloride 104 mmol/L (98-107); Glucose 136 mg/dL (74-99); Non-African American GFR(CKD) 47 (>60 ml/min/1.73 sqM); Phosphorus 3.7 mg/dL (2.5-4.5); Potassium 4.8 mmol/L (3.5-5.1); Sodium 139 mmol/L (137-145); Total Bilirubin 0.4 mg/dL (0.2-1.3); Total Protein 7.7 g/dL (6.3-8.2)
[2024-05-01 17:29] LABS: INR 0.9 (<1.2); Partial Thromboplastin Time 24.5 sec (22.0-30.0); Prothrombin Time 10.1 sec (10.0-12.5)
[2024-05-01 17:30] LABS: NT-Pro-B-Type Natriuretic Pept 246 pg/mL
[2024-05-01] MEDS ORDERED: NALOXONE 0.4 MG/ML 1 ML VIAL IV PRN (17:49)
[2024-05-01] MEDS ORDERED: ONDANSETRON 4 MG/2 ML VIAL IVP PRN (17:49)
[2024-05-01] MEDS: SODIUM CHLORIDE 0.9% 1,000 ML IV STA (18:17)
[2024-05-01] MEDS: ONDANSETRON 4 MG/2 ML VIAL IVP STA (18:21)
[2024-05-01] MEDS: KETOROLAC 15 MG/ML 1 ML VIAL IVP STA (18:21)
[2024-05-01] MEDS: SODIUM CHLORIDE 0.9% 1,000 ML IV SCH (18:27)
[2024-05-01] MEDS: PANTOPRAZOLE 40 MG TABLET PO SCH (21:12)
[2024-05-01] MEDS: GABAPENTIN 400 MG CAP PO SCH (21:13)
[2024-05-01] MEDS: busPIRone HCl 5 MG TAB PO SCH (21:13)
[2024-05-01] MEDS: QUEtiapine 200 MG TAB PO SCH (21:13)
[2024-05-01] MEDS: PRAVASTATIN SODIUM 40 MG TAB PO SCH (21:14)
[2024-05-01] MEDS: PRAZOSIN 1 MG CAP PO SCH (21:14)
[2024-05-01] MEDS: MELATONIN 5 MG TABLET PO SCH (21:14)
--- NOTE | 2024-05-02 00:07 | P.CONS ---
History of Present Illness - Reason for Consult Consult date: 05/01/24 Medical management Requesting physician: Jose F Tate - Chief Complaint Back pain - History of Present Illness Patient is a 59 year old male with past medical history of diabetes mellitus, GERD, hyperlipidemia, hypertension, alcoholic liver cirrhosis, CKD IIIa, bi lateral hip replacement, L2-L4 fusion presented to the ED with back pain. He has had a chronic back pain since 2 years after he had L2-L4 cage fusion surgery. Over the past 2 months the pain has started worsen in the lower left back. Since a few days the pain also shoots down the left leg and into his groin. He reports numbness of his left leg. He tried taking muscle relaxers, but it didn't help with his symptoms. The patient has been to the ER a couple times in the past week with similar symptoms. He was sent home both times with a script for Flexeril. He then went to [facility] and was admitted there for the last 3 days. But they didn't perform any surgery. Today the patient talked to his surgeon (Dr Landers) who performed the fusion surgery 2 years ago. His surgeon advised him to go to the ER and get admitted for a spinal surgery. He states that he lives alone and has had to use a walker for the past month as it has been difficult for him to ambulate due to the pain and he has also sustained a couple of falls, but he didn't hit his head. Additionally when he was at [facility], he was found to have urinary retention. The patient mentions there were several failed attempts at placing a urinary catheterisation. He denies low stream of urine, dysuria, hematuria, suprapubic pain, flank pain. He denies having prostatic hyperplasia. He also reports having 2 episodes of altered mental status in the past 3 months. He mentions getting several tests done at [facility] but none were conclusive. Denies fever, chills, chest pain, shortness of breath, cough, chest pain, palpitations, abdominal pain, nausea, vomiting, hematochezia, melena, headache, slurred speech. ED documentation reviewed. In the ED patient was treated with Dilaudid 1 mg, ketorolac 15 mg, ondansetron 4 mg, 0.9 normal saline bolus. Vitals on admission T 97.7 F, IL 111 bpm, RR 15, BP 105/65, O2 sat 97% on room air EKG independently interpreted as sinus rhythm, rate 96 bpm, QTc 388 ms CBC show WBC 10.8, hemoglobin 12.3, hematocrit 37.7, platelet count 591 Coagulation panel shows PT 10.1, INR 0.9, APTT 24.5 CMP shows sodium 139, potassium 4.8, BUN 40, creatinine 1.58 troponin I <0.012, pro-BNP 246 UA is unremarkable Review of systems: Pertinent positives and negatives as discussed in HPI, a complete review of systems was performed and all other systems are negative. PMH: Diabetes mellitus, GERD, hyperlipidemia, hypertension, liver cirrhosis, CKD PSH: Bilateral hip replacement, heart catheterization FMH: OR Social history: Tobacco: Vaper Alcohol: Quit 1 year ago Recreational drugs: Quit 1 year ago Travel: No recent travel history Sick contacts: None Physical examination: Vital signs reviewed General: nontoxic, no distress, appears at stated age Derm: warm, dry, intact Head: atraumatic, normocephalic, symmetric Eyes: EOMI, anicteric sclera Mouth: no lip lesion, mucus membranes moist Cardiovascular: S1 S2 reg, no murmur Lungs: CTA bilateral, no rhonchi, no rales, no accessory muscle use Abdominal: soft, non-tender to palpation Extremities: No edema, strength 5/5 in b/l UE and right LE, strength left LE 3/5, left foot drop, persistent b/l UE fine tremor at rest with b/l LE coarse tremor at rest Neuro: Alert, Oriented, Gross neurological examination did not reveal any focal deficits. Psych: well appearing, appropriate affect Assessment/Plan: Patient is a 59 year old male with PMH of diabetes mellitus, GERD, hyperlipidemia, hypertension, bilateral hip replacement who presented to the ED with chronic back pain worsening over the past few days and shooting down his left leg. He has been admitted for a spinal surgery. Medicine has been consulted for medical management. #. JACKIE on CKD stage IIIa, likely prerenal #. H/o Urinary retention -BUN 40, creatinine 1.58 -UA is unremarkable -Continue IV fluids 0.9 normal saline at 75 ml/hr -Bladder scan #. Leukocytosis, -Likely secondary to acute stressor with no signs of active infection at this time -Monitor CBC #. Normocytic anemia and thrombocytosis -Similar to baseline -Monitor CBC #. Hypertension -Continue home med prazosin 2 mg p.o. at bedtime #. Hyperlipidemia -Continue home meds pravastatin 40 mg PO HS, fenofibrate 160 mg p.o. daily #. Non-insulin dependent diabetes mellitus -Insulin sliding scale with blood glucose monitoring -A1c ordered #. History of bipolar and schizoaffective disorder -Continue home meds buspirone 15 mg p.o. twice daily, escitalopram 20 mg p.o. daily, Seroquel 200 mg p.o. at bedtime #. Insomnia -Continue home med melatonin 10 mg p.o. at bedtime #. Neuropathy -Continue home med gabapentin 100 mg p.o. 3 times daily #. GERD -Continue home med famotidine 40 mg p.o. daily and pantoprazole 20 mg p.o. twice daily #. Pancreatitis -Continue home med Creon Dr 24,000 unit 1 capsule p.o. 3 times daily with meals #. Liver cirrhosis -Liver enzymes unremarkable -Continue home med thiamine 100 mg p.o. daily #. Chronic Back pain with new onset shooting left leg pain -Currently on Dilaudid 1 mg IV every 3 hours as needed for pain management per primary surgical team -Continue home meds Flexeril 10 mg PO TID #. Nausea and vomiting -Continue Ondansetron 4 mg IVP Q8HR PRN DVT prophylaxis: Per primary surgical team GI prophylaxis: Famotidine 40 mg p.o. daily and pantoprazole 20 mg p.o. twice daily Past Medical History Past Medical History: Diabetes Mellitus, GERD/Reflux, Hyperlipidemia, Hypertension, Liver Disease, Renal Disease Additional Past Medical History / Comment(s): Neuropathy, back pain raditating to legs, Cirrhosis, "kidneys don't always work right." , pancreatitis History of Any Multi-Drug Resistant Organisms: None Reported Past Surgical History: Heart Catheterization, Joint Replacement, Orthopedic Surgery Additional Past Surgical History / Comment(s): Bilateral cataracts removed, bilateral hip replacements, right heal surgery with screws/plates/pins placed, L2-L4 cage fussion Past Anesthesia/Blood Transfusion Reactions: No Reported Reaction Past Psychological History: Anxiety, Bipolar, Depression, PTSD, Schizoaffective Disorder Smoking Status: Vaper Past Alcohol Use History: None Reported Past Drug Use History: None Reported - Past Family History Father Family Medical History: Myocardial Infarction ([place]) Additional Family Medical History / Comment(s): [place] in mid 30's. Mother Family Medical History: Dementia family Additional Family Medical History / Comment(s): Anxiety. Medications and Allergies Home Medications Medication Instructions Recorded Confirmed Type Lipase/Protease/Amylase [Creon Dr 1 cap PO TID-W/MEALS 12/15/22 05/01/24 History 24,000 Unit Capsule] Ketoconazole 2% Cream [Nizoral 2%] 1 applic TOPICAL DAILY 12/29/23 05/01/24 History Melatonin 10 mg PO HS 12/29/23 05/01/24 History Aspirin EC [Ecotrin Low Dose] 81 mg PO DAILY 03/05/24 05/01/24 History Aspirin/Acetaminophen/Caffeine 1 tab PO DAILY PRN 03/05/24 05/01/24 History [Excedrin Migraine Caplet] Thiamine [Vitamin B-1] 100 mg PO DAILY 03/05/24 05/01/24 History Vitamin D(Unknown Dose) 1 tab PO DAILY 03/05/24 05/01/24 History Escitalopram [Lexapro] 20 mg PO DAILY 04/02/24 05/01/24 History Famotidine 40 mg PO DAILY 04/02/24 05/01/24 History Fenofibrate [Lofibra] 160 mg PO DAILY 04/02/24 05/01/24 History Ferrous Sulfate [Iron (65 MG 325 mg PO MOWEFR 04/02/24 05/01/24 History Elemental)] Ibuprofen [Motrin] 800 mg PO Q8H PRN 04/02/24 05/01/24 History Lidocaine 5% Patch [Lidoderm 5% 1 patch TOPICAL DAILY PRN 04/02/24 05/01/24 History Patch] Magnesium Oxide [Mag-Ox] 400 mg PO DAILY 04/02/24 05/01/24 History Ondansetron Odt [Zofran ODT] 4 mg PO TID PRN 04/02/24 05/01/24 History Pantoprazole Sodium [Protonix] 20 mg PO BID 04/02/24 05/01/24 History Pravastatin Sodium [Pravachol] 40 mg PO HS 04/02/24 05/01/24 History QUEtiapine [SEROquel] 100 mg PO HS PRN 04/02/24 05/01/24 History QUEtiapine [SEROquel] 200 mg PO HS 04/02/24 05/01/24 History busPIRone HCL 15 mg PO BID 04/02/24 05/01/24 History metFORMIN HCL [Glucophage] 1,000 mg PO BID 04/02/24 05/01/24 History Cyclobenzaprine [Flexeril] 10 mg PO TID PRN #15 tab 04/22/24 05/01/24 Rx Celecoxib 200 mg PO BID 05/01/24 05/01/24 History Gabapentin 1,200 mg PO TID 05/01/24 05/01/24 History Prazosin HCl [Minipress] 2 mg PO HS 05/01/24 05/01/24 History modafiniL [Provigil] 200 mg PO DAILY PRN 05/01/24 05/01/24 History Allergies Allergy/AdvReac Type Severity Reaction Status Date / Time thimerosal Allergy Severe Rash/Hives/throat Verified 05/01/24 17:59 swelling neomycin Allergy Rash/Hives Verified 05/01/24 17:59 Physical Exam Vitals: Vital Signs Temp Pulse Resp BP Pulse Ox 05/01/24 18:28 66 18 97/67 98 05/01/24 14:40 97.7 F 111 H 15 105/65 97 Intake and Output 05/01/24 05/01/24 05/01/24 06:59 14:59 22:59 Other: Weight 74.843 kg Results CBC & Chem 7: 05/01/24 16:58 05/01/24 16:58 Labs: Abnormal Lab Results - Last 24 Hours (Table) 05/01/24 05/01/24 Range/Units 16:58 16:58 WBC 10.8 H (3.8-10.6) k/uL RBC 4.24 L (4.30-5.90) m/uL Hgb 12.3 L (13.0-17.5) gm/dL Hct 37.7 L (39.0-53.0) % Plt Count 591 H (150-450) k/uL Neutrophils # 7.9 H (1.3-7.7) k/uL BUN 40 H (9-20) mg/dL Creatinine 1.58 H (0.66-1.25) mg/dL Glucose 136 H (74-99) mg/dL
[2024-05-02] MEDS ORDERED: DEXTROSE 50% SYRINGE 50 ML IVP PRN ×2 (00:42)
[2024-05-02] MEDS ORDERED: ACETAMINOPHEN TAB 325 MG TAB PO PRN (00:45)
[2024-05-02 05:54] LABS: Glucose,Whole Blood 201 mg/dL (70-110)
[2024-05-02] MEDS: INSULIN ASPART (NovoLOG) 100 UNIT/ML VIAL SQ SCH (06:16)
[2024-05-02] MEDS: HYDROmorphone 1 MG/ML 1 ML SYRINGE IVP PRN (06:21)
[2024-05-02] MEDS: LIPASE PO SCH (08:31)
[2024-05-02] MEDS: PROTEASE PO SCH (08:31)
[2024-05-02] MEDS: AMYLASE PO SCH (08:31)
[2024-05-02] MEDS: [UNRECOGNIZED DRUG - OTHER] PO SCH (08:31)
[2024-05-02] MEDS: ESCITALOPRAM 20 MG TAB PO SCH (08:32)
[2024-05-02] MEDS: ASPIRIN 81 MG PO SCH (08:32)
[2024-05-02] MEDS: FAMOTIDINE 20 MG TAB PO SCH (08:32)
[2024-05-02] MEDS: THIAMINE 100 MG TAB PO SCH (08:32)
[2024-05-02] MEDS: FENOFIBRATE 160 MG TAB PO SCH (08:34)
[2024-05-02] MEDS: CYCLOBENZAPRINE 10 MG TAB PO PRN (11:30)
[2024-05-02 11:45] LABS: Glucose,Whole Blood 132 mg/dL (70-110)
[2024-05-02] MEDS: HYDROmorphone 1 MG/ML 1 ML SYRINGE IVP STA (12:12)
--- NOTE | 2024-05-02 12:28 | P.HPOR ---
History of Present Illness H&P Date: 05/02/24 Chief Complaint: Acute on chronic low back pain, left lower extremity weakness Patient is a 59-year-old male who is known to our orthopedic practice. Patient underwent a L3-S1 posterior lateral decompression and fusion with Dr. Seay and back in July 2022. We have seen the patient on a few different occasions recently in the office with regards to worsening back pain and bilateral lower extremity symptoms worse on the left, this to include numbness and tingling, radiating pain and gait instability. Patient did end up down at in [place] for evaluation of his worsening pain, he states that he reported to [facility] ER on a few different occasions and felt they were not doing anything for him. Patient was last seen in our office on 04/11/[address] Goodman Romano, patient was scheduled for a cervical and lumbar MRI for further evaluation of the symptoms. While at [facility], they did contact our practice regarding the patient, patient was possibly can undergo a revision surgery to his lumbar spine versus being transferred up to our hospital for further care. Patient ended up leaving after being discharged, he then reported to [facility] where he was admitted after discussion with our orthopedic service with plan for likely surgical intervention. Patient was evaluated today, he was admitted to the medical/surgical floor. He is lying in bed, he appears comfortable. He does note some severe discomfort to the lower back that extends into the left lower extremity. Patient has been dealing with a lot of weakness in that left lower extremity mainly with lifting the leg off the bed. He admits to some numbness and tingling to that left lower extremity worse than the right. Since his initial back surgery he does have occasional numbness and tingling but nothing like prior to his original surgery. Apparently there was questions of some urinary incontinence while at [facility], he states that he was not receiving much care there this to include f luids. Since being in our hospital, he has had 2 separate instances where he has been urinating with no difficulties. He denies any loss of bowel or function at this time. He denies any new onset weakness to the bilateral upper extremities. He denies any recent falls at this time. His fevers, headaches, lightheadedness, chest pain or shortness of breath Review of Systems Constitutional: Reports as per HPI Past Medical History Past Medical History: Diabetes Mellitus, GERD/Reflux, Hyperlipidemia, Hypertension, Liver Disease, Renal Disease Additional Past Medical History / Comment(s): Neuropathy, back pain raditating to legs, Cirrhosis, "kidneys don't always work right." , pancreatitis History of Any Multi-Drug Resistant Organisms: None Reported Past Surgical History: Heart Catheterization, Joint Replacement, Orthopedic Surgery Additional Past Surgical History / Comment(s): Bilateral cataracts removed, b ilateral hip replacements, right heal surgery with screws/plates/pins placed, L2-L4 cage fussion Past Anesthesia/Blood Transfusion Reactions: No Reported Reaction Past Psychological History: Anxiety, Bipolar, Depression, PTSD, Schizoaffective Disorder Smoking Status: Vaper Past Alcohol Use History: None Reported Past Drug Use History: None Reported - Past Family History Father Family Medical History: Myocardial Infarction ([place]) Additional Family Medical History / Comment(s): [place] in mid 30's. Mother Family Medical History: Dementia family Additional Family Medical History / Comment(s): Anxiety. Medications and Allergies Home Medications Medication Instructions Recorded Confirmed Type Lipase/Protease/Amylase [Creon Dr 1 cap PO TID-W/MEALS 12/15/22 05/01/24 History 24,000 Unit Capsule] Ketoconazole 2% Cream [Nizoral 2%] 1 applic TOPICAL DAILY 12/29/23 05/01/24 History Melatonin 10 mg PO HS 12/29/23 05/01/24 History Aspirin EC [Ecotrin Low Dose] 81 mg PO DAILY 03/05/24 05/01/24 History Aspirin/Acetaminophen/Caffeine 1 tab PO DAILY PRN 03/05/24 05/01/24 History [Excedrin Migraine Caplet] Thiamine [Vitamin B-1] 100 mg PO DAILY 03/05/24 05/01/24 History Vitamin D(Unknown Dose) 1 tab PO DAILY 03/05/24 05/01/24 History Escitalopram [Lexapro] 20 mg PO DAILY 04/02/24 05/01/24 History Famotidine 40 mg PO DAILY 04/02/24 05/01/24 History Fenofibrate [Lofibra] 160 mg PO DAILY 04/02/24 05/01/24 History Ferrous Sulfate [Iron (65 MG 325 mg PO MOWEFR 04/02/24 05/01/24 History Elemental)] Ibuprofen [Motrin] 800 mg PO Q8H PRN 04/02/24 05/01/24 History Lidocaine 5% Patch [Lidoderm 5% 1 patch TOPICAL DAILY PRN 04/02/24 05/01/24 History Patch] Magnesium Oxide [Mag-Ox] 400 mg PO DAILY 04/02/24 05/01/24 History Ondansetron Odt [Zofran ODT] 4 mg PO TID PRN 04/02/24 05/01/24 History Pantoprazole Sodium [Protonix] 20 mg PO BID 04/02/24 05/01/24 History Pravastatin Sodium [Pravachol] 40 mg PO HS 04/02/24 05/01/24 History QUEtiapine [SEROquel] 100 mg PO HS PRN 04/02/24 05/01/24 History QUEtiapine [SEROquel] 200 mg PO HS 04/02/24 05/01/24 History busPIRone HCL 15 mg PO BID 04/02/24 05/01/24 History metFORMIN HCL [Glucophage] 1,000 mg PO BID 04/02/24 05/01/24 History Cyclobenzaprine [Flexeril] 10 mg PO TID PRN #15 tab 04/22/24 05/01/24 Rx Celecoxib 200 mg PO BID 05/01/24 05/01/24 History Gabapentin 1,200 mg PO TID 05/01/24 05/01/24 History Prazosin HCl [Minipress] 2 mg PO HS 05/01/24 05/01/24 History modafiniL [Provigil] 200 mg PO DAILY PRN 05/01/24 05/01/24 History Allergies Allergy/AdvReac Type Severity Reaction Status Date / Time thimerosal Allergy Severe Rash/Hives/throat Verified 05/01/24 17:59 swelling neomycin Allergy Rash/Hives Verified 05/01/24 17:59 Physical Examination Gen: AOx3, NAD VSS stable at this time Integument: No open lesions, sores or areas of erythema to the cervical, thoracic or lumbar spine. There are well-healed incision over the midline lower lumbar spine Palpation: tenderness with palpation is noted to the midline and paraspinal region of the lumbar spine also into the SI joint on the left side ROM: full range of motion in all major muscle groups of the bilateral upper extremity, no focal deficits full range of motion in all major muscle groups of the bilateral lower extremities, this excluding hip flexion on the left, this is significantly decreased Sensory Exam: Senory exam to light touch is intact C5-T1 Senosry exam to light touch is intact L2-S1 Motor: 4+/5 strength of the bilateral upper extremities with shoulder elevation, shoulder abduction, elbow extension, elbow flexion, wrist extension, wrist flexion, foreign correspondent 4/5 strength appreciated to the right lower extremity with hip flexion, knee extension, knee flexion, plantarflexion, dorsiflexion, EHL, FHL 4/5 strength appreciated in the left lower extremity with knee flexion, plantarflexion, dorsiflexion, EHL, FHL 3/5 strength appreciate the left lower extremity with knee extension 3-/5 strength appreciate the left lower extremity with hip flexion Reflexes: 2/4 in all UE and LE negative Jeremias's bilaterally negative clonus bilaterally Special Test: positive straight leg raise left lower extremity logroll maneuver of the bilateral lower extremities reproduces no groin pain Results - Labs Labs: Abnormal Lab Results - Last 24 Hours (Table) 05/01/24 05/01/24 05/02/24 Range/Units 16:58 16:58 05:51 WBC 10.8 H (3.8-10.6) k/uL RBC 4.24 L (4.30-5.90) m/uL Hgb 12.3 L (13.0-17.5) gm/dL Hct 37.7 L (39.0-53.0) % Plt Count 591 H (150-450) k/uL Neutrophils # 7.9 H (1.3-7.7) k/uL BUN 40 H (9-20) mg/dL Creatinine 1.58 H (0.66-1.25) mg/dL Glucose 136 H (74-99) mg/dL POC Glucose (mg/dL) 201 H (70-110) mg/dL 05/02/24 Range/Units 11:43 WBC (3.8-10.6) k/uL RBC (4.30-5.90) m/uL Hgb (13.0-17.5) gm/dL Hct (39.0-53.0) % Plt Count (150-450) k/uL Neutrophils # (1.3-7.7) k/uL BUN (9-20) mg/dL Creatinine (0.66-1.25) mg/dL Glucose (74-99) mg/dL POC Glucose (mg/dL) 132 H (70-110) mg/dL H & H 05/01/24 Range/Units 16:58 Hgb 12.3 L (13.0-17.5) gm/dL Hct 37.7 L (39.0-53.0) % Coagulation 05/01/24 Range/Units 16:58 INR 0.9 (<1.2) Result Diagrams: 05/01/24 16:58 05/01/24 16:58 Assessment and Plan Assessment: acute on chronic back pain status post [id number] decompression and fusion adjacent segment disease L2-L3 with stenosis lower extremity weakness other medical comorbidities Plan: Dr. Landers was able to speak with the emergency room staff prior to the patient being admitted regarding the likely surgical intervention that we would be proceeding with. Patient is scheduled for a revision [id number] decompression and fusion for 05/03/2024 I was able to speak with the patient today regarding the surgery, this to include risk and benefits. Patient is in good understanding and would like to proceed. Consent will be obtained prior to procedure pain control, continue with current medications medical recommendations appreciated GI DVT prophylaxis, aspirin 81 mg twice daily 24 hours after surgery. Utilize compression stockings/SCDs until then PT/OT evaluation after surgery n.p.o. after midnight further recommendations to follow Time with Patient: Less than 30
[2024-05-02 12:34] LABS: Basophils # (A) 0.1 k/uL (0-0.2); Basophils % (A) 1 %; Eosinophils # (A) 0.3 k/uL (0-0.7); Eosinophils % (A) 4 %; HCT 35.8 % (39.0-53.0); HGB 11.3 gm/dL (13.0-17.5); Hypochromasia Slight; Lymphocytes # (A) 1.5 k/uL (1.0-4.8); Lymphocytes % (A) 18 %; MCH 28.8 pg (25.0-35.0); MCHC 31.5 g/dL (31.0-37.0); MCV 91.3 fL (80.0-100.0); Mean Platelet Volume 6.6; Monocytes # (A) 0.6 k/uL (0-1.0); Monocytes % (A) 7 %; Neutrophils # (A) 5.6 k/uL (1.3-7.7); Neutrophils % (A) 68 %; Platelet Count 421 k/uL (150-450); RBC 3.92 m/uL (4.30-5.90); RDW 13.8 % (11.5-15.5); WBC 8.3 k/uL (3.8-10.6)
[2024-05-02 12:59] LABS: ALT 19 U/L (4-49); AST 21 U/L (17-59); African American GFR (CKD) 83 (>60 ml/min/1.73 sqM); Albumin 3.9 g/dL (3.5-5.0); Albumin/Globulin Ratio 1.6; Alkaline Phosphatase 76 U/L (38-126); Anion Gap 9 mmol/L; Blood Urea Nitrogen 26 mg/dL (9-20); Calcium 9.1 mg/dL (8.4-10.2); Carbon Dioxide 22 mmol/L (22-30); Chloride 106 mmol/L (98-107); Globulin 2.5 g/dL; Glucose 146 mg/dL (74-99); Non-African American GFR(CKD) 72 (>60 ml/min/1.73 sqM); Phosphorus 3.5 mg/dL (2.5-4.5); Potassium 5.2 mmol/L (3.5-5.1); Sodium 137 mmol/L (137-145); Total Bilirubin 0.4 mg/dL (0.2-1.3); Total Protein 6.4 g/dL (6.3-8.2)
[2024-05-02] MEDS: NICOTINE 14MG/24HR PATCH TRANSDERM SCH (13:13)
--- NOTE | 2024-05-02 14:27 | P.PN ---
Subjective Progress Note Date: 05/02/24 59 year old male with past medical history of diabetes mellitus, GERD, hyperlipidemia, hypertension, alcoholic liver cirrhosis, CKD IIIa, bilateral hip replacement, L2-L4 fusion presented to the ED with back pain. He has had a chronic back pain since 2 years after he had L2-L4 cage fusion surgery. Over the past 2 months the pain has started worsen in the lower left back. Since a few days the pain also shoots down the left leg and into his groin. He reports numbness of his left leg. Today the patient talked to his surgeon (Dr Landers) who performed the fusion surgery 2 years ago. His surgeon advised him to go to the ER and get admitted for a spinal surgery. Vitals on admission T 97.7 F, HR 111, RR 15, BP 105/65, O2 sat 97% on RA. CBC, Coag panel, CMP significant for WBC 10.8, RBC 4.24, Hg 12.3, Hct 37.7, Plt 591, BUN 40, Cr 1.58, glu 136. Lactic acid 1.4. Trop < 0.012. BNP 246. UA neg. EKG NSR. 05/02 Patient was seen and examined. Continue back pain. Plans for surgery tomorrow per Ortho. CBC, CMP significant for RBC 3.92, Hg 11.3, Hct 35.8, K 5.2, BUN 26, glu 146. General: non toxic, no distress, appears at stated age Derm: warm, dry Head: atraumatic, normocephalic, symmetric Eyes: EOMI, no lid lag, anicteric sclera Mouth: no lip lesion, mucus membranes moist Cardiovascular: S1S2 reg, no murmur Lungs: CTA bilateral, no rhonchi, no rales , no accessory muscle use Ext: no gross muscle atrophy, no edema, no contractures Neuro: no focal neuro deficits Psych: Alert, oriented, appropriate affect Based on my assessment of this patient, this patient meets a high complexity level of care. JACKIE on CKD: Improved with IV hydration. Hyperkalemia: K 5.2. Mild. Monitor. Normocytic anemia: Likely AOCD from CKD. No signs of active bleeding. Monitor. Hypertension Dyslipidemia: Pravastatin 40 mg PO QHS. Fenofibrate 160 mg PO QD. DM: ISS. Accuchecks ACHS. Hypoglycemic precautions. Bipolar disorder: Buspar 15 mg PO BID. Lexapro 20 mg PO QD. Seroquel 200 mg PO QHS. Insomnia: Melatonin 10 mg PO QHS. Peripheral neuropathy: Gabapentin 1200 mg PO TID. GERD: Pepcid 20 mg PO QD. Protonix 40 mg PO BID. Pancreatitis: Creon 31148 unit PO TID. Resolved: Leukocytosis CODE STATUS: FULL CODE DVT Prophylaxis: SCD GI Prophylaxis: Pepcid, Protonix Designated medical POA if patient is not able to make medical decisions for themselves: I have reviewed the following therapeutic consultant notes: Ortho note. I have reviewed the results of the following tests: As above. I have ordered the following tests: As above. I have discussed the care of this patient with the following independent historian: I have independently interpreted the following test below: I have discussed the management of this patient with the following physician: Objective - Vital Signs Vital signs: Vital Signs Temp 97.9 F 05/02/24 14:16 Pulse 99 05/02/24 14:16 Resp 16 05/02/24 14:16 BP 98/65 05/02/24 14:16 Pulse Ox 98 05/02/24 14:16 FiO2 Intake & Output 05/01/24 05/02/24 05/02/24 18:59 06:59 18:59 Intake Total 472 Output Total 800 1700 Balance -800 -1228 Weight 74.843 kg 74.843 kg Intake: Oral 472 Output: Urine 800 1700 Other: Voiding Method Urinal Urinal - Labs CBC & Chem 7: 05/02/24 12:06 05/02/24 12:06 Labs: Abnormal Lab Results - Last 24 Hours (Table) 05/01/24 05/01/24 05/02/24 Range/Units 16:58 16:58 05:51 WBC 10.8 H (3.8-10.6) k/uL RBC 4.24 L (4.30-5.90) m/uL Hgb 12.3 L (13.0-17.5) gm/dL Hct 37.7 L (39.0-53.0) % Plt Count 591 H (150-450) k/uL Neutrophils # 7.9 H (1.3-7.7) k/uL Potassium (3.5-5.1) mmol/L BUN 40 H (9-20) mg/dL Creatinine 1.58 H (0.66-1.25) mg/dL Glucose 136 H (74-99) mg/dL POC Glucose (mg/dL) 201 H (70-110) mg/dL 05/02/24 05/02/24 05/02/24 Range/Units 11:43 12:06 12:06 WBC (3.8-10.6) k/uL RBC 3.92 L (4.30-5.90) m/uL Hgb 11.3 L (13.0-17.5) gm/dL Hct 35.8 L (39.0-53.0) % Plt Count (150-450) k/uL Neutrophils # (1.3-7.7) k/uL Potassium 5.2 H (3.5-5.1) mmol/L BUN 26 H (9-20) mg/dL Creatinine (0.66-1.25) mg/dL Glucose 146 H (74-99) mg/dL POC Glucose (mg/dL) 132 H (70-110) mg/dL
[2024-05-02] MEDS: KETOROLAC 15 MG/ML 1 ML VIAL IVP PRN (14:56)
[2024-05-02 17:38] LABS: Glucose,Whole Blood 159 mg/dL (70-110)
[2024-05-02 20:24] LABS: Glucose,Whole Blood 185 mg/dL (70-110)
[2024-05-03 05:40] LABS: Glucose,Whole Blood 221 mg/dL (70-110)
[2024-05-03] MEDS: FAMOTIDINE 20 MG TAB PO SCH (07:48)
[2024-05-03 09:44] LABS: African American GFR (CKD) 80 (>60 ml/min/1.73 sqM); Anion Gap 9 mmol/L; Blood Urea Nitrogen 26 mg/dL (9-20); Calcium 8.9 mg/dL (8.4-10.2); Carbon Dioxide 22 mmol/L (22-30); Chloride 104 mmol/L (98-107); Glucose 160 mg/dL (74-99); Non-African American GFR(CKD) 69 (>60 ml/min/1.73 sqM); Potassium 5.2 mmol/L (3.5-5.1); Sodium 135 mmol/L (137-145)
[2024-05-03] MEDS: LORazepam 2 MG/ML INJ IV PRN (10:51)
--- NOTE | 2024-05-03 10:51 | P.PN ---
Subjective Progress Note Date: 05/03/24 59 year old male with past medical history of diabetes mellitus, GERD, hyperlipidemia, hypertension, alcoholic liver cirrhosis, CKD IIIa, bilateral hip replacement, L2-L4 fusion presented to the ED with back pain. He has had a chronic back pain since 2 years after he had L2-L4 cage fusion surgery. Over the past 2 months the pain has started worsen in the lower left back. Since a few days the pain also shoots down the left leg and into his groin. He reports numbness of his left leg. Today the patient talked to his surgeon (Dr Landers) who performed the fusion surgery 2 years ago. His surgeon advised him to go to the ER and get admitted for a spinal surgery. Vitals on admission T 97.7 F, HR 111, RR 15, BP 105/65, O2 sat 97% on RA. CBC, Coag panel, CMP significant for WBC 10.8, RBC 4.24, Hg 12.3, Hct 37.7, Plt 591, BUN 40, Cr 1.58, glu 136. Lactic acid 1.4. Trop < 0.012. BNP 246. UA neg. EKG NSR. 05/02 Patient was seen and examined. Continue back pain. Plans for surgery tomorrow per Ortho. CBC, CMP significant for RBC 3.92, Hg 11.3, Hct 35.8, K 5.2, BUN 26, glu 146. 05/03 Patient was seen and examined. Continued back pain. Anxious related to upcoming surgery later on today. BMP Na 135, K 5.2, BUN 26, glu 160. General: non toxic, no distress, appears at stated age Derm: warm, dry Head: atraumatic, normocephalic, symmetric Eyes: EOMI, no lid lag, anicteric sclera Mouth: no lip lesion, mucus membranes moist Cardiovascular: S1S2 reg, no murmur Lungs: CTA bilateral, no rhonchi, no rales , no accessory muscle use Ext: no gross muscle atrophy, no edema, no contractures Neuro: no focal neuro deficits Psych: Alert, oriented, appropriate affect Based on my assessment of this patient, this patient meets a high complexity level of care. JACKIE on CKD: Improved with IV hydration. Hyperkalemia: K 5.2. Mild. Monitor. Normocytic anemia: Likely AOCD from CKD. No signs of active bleeding. Monitor. Dyslipidemia: Pravastatin 40 mg PO QHS. Fenofibrate 160 mg PO QD. DM: ISS. Accuchecks ACHS. Hypoglycemic precautions. Bipolar disorder: Buspar 15 mg PO BID. Lexapro 20 mg PO QD. Seroquel 200 mg PO QHS. Insomnia: Melatonin 10 mg PO QHS. Peripheral neuropathy: Gabapentin 1200 mg PO TID. GERD: Pepcid 20 mg PO QD. Protonix 40 mg PO BID. Pancreatitis: Creon 63586 unit PO TID. Resolved: Leukocytosis CODE STATUS: FULL CODE DVT Prophylaxis: SCD GI Prophylaxis: Pepcid, Protonix Designated medical POA if patient is not able to make medical decisions for themselves: I have reviewed the following hr business partner consultant notes: I have reviewed the results of the following tests: BMP. I have ordered the following tests: CBC and BMP in the AM. I have discussed the care of this patient with the following independent historian: BOBY. I have independently interpreted the following test below: I have discussed the management of this patient with the following physician: Objective - Vital Signs Vital signs: Vital Signs Temp 98.2 F 05/03/24 07:00 Pulse 113 H 05/03/24 07:00 Resp 17 05/03/24 07:43 BP 94/59 05/03/24 07:00 Pulse Ox 97 05/03/24 07:00 FiO2 Intake & Output 05/02/24 05/03/24 05/03/24 18:59 06:59 18:59 Intake Total 590 Output Total 1700 Balance -1110 Intake: Oral 590 Output: Urine 1700 Other: Voiding Method Urinal Urinal Urinal # Voids 2 - Labs CBC & Chem 7: 05/02/24 12:06 05/03/24 09:11 Labs: Abnormal Lab Results - Last 24 Hours (Table) 05/02/24 05/02/24 05/02/24 Range/Units 11:43 12:06 12:06 RBC 3.92 L (4.30-5.90) m/uL Hgb 11.3 L (13.0-17.5) gm/dL Hct 35.8 L (39.0-53.0) % Sodium (137-145) mmol/L Potassium 5.2 H (3.5-5.1) mmol/L BUN 26 H (9-20) mg/dL Glucose 146 H (74-99) mg/dL POC Glucose (mg/dL) 132 H (70-110) mg/dL 05/02/24 05/02/24 05/03/24 Range/Units 17:37 20:15 05:39 RBC (4.30-5.90) m/uL Hgb (13.0-17.5) gm/dL Hct (39.0-53.0) % Sodium (137-145) mmol/L Potassium (3.5-5.1) mmol/L BUN (9-20) mg/dL Glucose (74-99) mg/dL POC Glucose (mg/dL) 159 H 185 H 221 H (70-110) mg/dL 05/03/24 Range/Units 09:11 RBC (4.30-5.90) m/uL Hgb (13.0-17.5) gm/dL Hct (39.0-53.0) % Sodium 135 L (137-145) mmol/L Potassium 5.2 H (3.5-5.1) mmol/L BUN 26 H (9-20) mg/dL Glucose 160 H (74-99) mg/dL POC Glucose (mg/dL) (70-110) mg/dL
--- NOTE | 2024-05-03 11:49 | P.PN ---
Progress Note - Text Progress Note Date: 05/03/24 Spine Surgery Clinical and Risk Review Andrea Elliott is a 59 yo male presenting for evaluation of low back pain, LE weakness acute with increasing LE pain and back pain as well as perineal sx. It was my pleasure to have seen and examined Andrea Elliott. In our visit today we have had a chance to go over subjective complaints, physical examination findings and treatments including the natural course history without intervention and various interventional options. The patients imaging demonstrates L2-3 ASD, severe with severe stenosis, spondylosis, collapse and degenerative changes. On physical exam, Andrea Elliott demonstrates LE tensioning signs with +SLR, pain with ROM, Radiculopathy, weakness 4/5 all major muscle groups as well as diffculty with ambuation and starting with difficulty with UI and BMs. I have explained to the patient that as their condition progresses it will cause further neurological deficits and eventual paralysis. Based on the patients imaging, physical exam, and the rapid progression and disabling nature of their symptoms, at this time I recommend surgery in the form or a: Revision L2-Pelvis with L2-3 posterolateral and interbody fusion I discussed the risk and benefits of this procedure at length with Andrea Elliott. The patient agreed to considered pursuing the procedure abovementioned. Prior to surgery, she should follow up with her PCP (Cardio, ID, IM etc) for clearance. Questions were invit ed and answered, and the patient wishes to proceed as outlined below. Currently, I am recommendin. L2-3 POSTEROLATERAL AND INTERBODY FUSION WITH DECOMPRESSION AND REVISION L2-PELVIS DECOMPRESSION AND FUSION 2. Follow up with PCP for surgical clearance 3. Review of surgical risks and benefits as well as an educational packet on the proposed surgical procedure. Risks: All surgical procedures come with inherent risks, including those related to positioning, anesthesia, intraoperative findings, and postoperative complica tions. It is important to understand that surgery does not come with any guarantee of a successful outcome as complications and adverse events are always possible. The patient was given a handout in office today discussing the surgical procedure and risks associated with the intervention, both of which were discussed with the patient. These risks include but are not limited to the following: * Experiencing same, different or even worse symptoms in back, neck, arms, or legs compared to before surgery. * Requiring further surgery or other forms of treatment presently or at some time in the future at same or other levels of the intended spine surgery. * On an extreme but fortunately relatively rare basis severe complication such as blindness, stroke, heart attack, temporary and/or permanent nerve injury, paralysis, coma, or may occur, sometimes without known explanation. * Surgical complications may include but are not limited to risk of infection, fluid accumulation in the surgical dissection site, including a seroma or hematoma, that requires additional surgery, wound drainage, bleeding, new numbness or weakness, vision changes/loss, spinal fluid leakage, non-healing and/or infected incision, headaches, difficulty or inability to swallow, hoarseness, hemopneumothorax, pneumothorax, impotence, retrograde ejaculation, vaginal dryness; injury to nerves, spinal cord, blood vessels, lymphatics or other vital organs (i.e., bowel injury, injury to the great vessels); heterotopic bone formation; complications related to the hardware such as screws, rods, cages including misplaced hardware, device failure, instrumentation at the wrong spine level, hardware fracture/breakage, or hardware loosening; vertebral failure of the spinal column above or below the newly placed hardware; retained surgical instrumentations or devices and the need for further surgery. * Medical risks of the planned spine surgery include but are not limited to generalized Infections to the whole body or local areas outside of the surgical site (sepsis), heart attack, bleeding, anaphylaxis, meningitis, seizure, epilepsy, hearing loss, burn du, laceration of the head or other areas of the body, bruising, hypersensitivity of the skin, bladder over distension; allergic reaction; shoulder injury related to positioning; fat, blood and air clots to other areas of the body like heart, lungs, brain; failure of internal organs such as lungs, kidneys, liver and excessive bleeding. If blood transfusions are necessary, note that transfusions may cause intolerance reactions such as anaphylaxis or other complex reactions. * Despite best efforts, the results of spine surgery might not heal in terms of bone, soft tissues such as skin, fascia, ligaments, and joints. Additionally, in order to achieve best possible results, spine surgery may be carried out beyond the initially planned levels and involve decompression, fusion including insertion of hardware at levels other than the original intended area of surgical interest change some portions of the procedure in order to ensure the best possible outcomes. * With spine surgery and spinal fusion, there are different off label uses of instrumentation (devices, implants and hardware) as well as biological substances (bone morphogenic proteins, demineralized bone matrix) as well as using extra bone from allograft sources (i.e. cadaver bone) or autograft (iliac crest bone, ribs, or the spine itself). The patient has been given information about these practices and their inherent risks and benefits. The patient has had a chance to review all the listed information, has been given print outs detailing this information, and has had all his/her questions answered to their satisfaction. It was my pleasure to have seen and examined Andrea Elliott. In our visit today we have had a chance to go over my understanding of our patient's current condition, the natural course history without intervention and various interventional options. Questions were invited and answered, and the patient wishes to proceed as outlined above. I have seen and examined the patient for 25 minutes and we have spent more than 50% of the time in repeat and detailed counseling about the patient's condition, its natural course history with out and as much as can be predicted with surgery and re-review of various surgical treatment options. In conclusion, Andrea Elliott and spouse requested we proceed with the above suggested surgery and are willing to accept risks and limitations of the suggested surgery as nature of the disease process and our best attempts at treatment for the condition. Thank you again for allowing us to be part of your patient's care. Please don't hesitate to contact me if you have any further questions. Signed and authenticated by: Ulices [facility] [address] [facility], [address] [address]
[2024-05-03] MEDS ORDERED: GLYCOPYRROLATE 0.2 MG/ML 2 ML VIAL ONE (12:20)
[2024-05-03] MEDS ORDERED: TRANEXAMIC 1,000 MG/100ML-NACL PREMIX BAG ONE (12:20)
[2024-05-03] MEDS ORDERED: PROPOFOL 10 MG/ML 20 ML VIAL IV ONE (12:20)
[2024-05-03] MEDS ORDERED: fentaNYL (PF) 50 MCG/ML 2 ML AMP ONE (12:20)
[2024-05-03] MEDS ORDERED: ROCURONIUM 10 MG/ML (5 ML VIAL) IV ONE (12:20)
[2024-05-03] MEDS ORDERED: MIDAZOLAM 2 MG/2 ML VIAL ONE (12:20)
[2024-05-03] MEDS ORDERED: KETAMINE HCL IN 0.9 % NACL 50 MG/5 ML SYRINGE ONE (12:20)
[2024-05-03] MEDS ORDERED: LIDOCAINE 1% INJ 10MG/ML (20 ML MDV) ONE (12:20)
[2024-05-03] MEDS ORDERED: ALBUMIN HUMAN 5% (25gm) 500 ML VIAL IVPB ONE (12:20)
[2024-05-03] MEDS ORDERED: SUCCINYLCHOLINE CHLORIDE 200 MG/10 ML VIAL IV ONE (12:20)
[2024-05-03] MEDS ORDERED: PHENYLEPHRINE 10 MG/ML VIAL ONE (12:20)
[2024-05-03] MEDS ORDERED: NEOSTIGMINE 1 MG/ML 10 ML VIAL ONE (12:20)
[2024-05-03] MEDS ORDERED: LIDOCAINE 4% LTA KIT (4 ML) TOPICAL ONE (12:20)
[2024-05-03] MEDS: LACTATED RINGERS 1,000 ML IV ONE ×2 (12:21→13:24)
[2024-05-03] MEDS: THROMBIN (BOVINE) 5,000 UNIT VIAL TOPICAL ONE (13:26)
[2024-05-03] MEDS: TRANEXAMIC ACID 1,000 MG in SODIUM CHLORIDE 0.9% 100 ML IVPB ONE ×2 (15:02→15:03)
[2024-05-03] MEDS: PROTEASE PO SCH (15:04)
[2024-05-03] MEDS: [UNRECOGNIZED DRUG - OTHER] PO SCH (15:04)
[2024-05-03] MEDS: AMYLASE PO SCH (15:04)
[2024-05-03] MEDS: LIPASE PO SCH (15:04)
[2024-05-03] MEDS: VANCOMYCIN 1,000 MG VIAL MISCELLANE ONE (15:10)
[2024-05-03] MEDS ORDERED: NALOXONE 0.4 MG/ML 1 ML VIAL IV PRN (15:44)
--- NOTE | 2024-05-03 16:06 | XR ---
EXAMINATION TYPE: XR lumbar spine 2 or 3V DATE OF EXAM: 05/03/2024 3:46 PM COMPARISON: Previous radiograph 08/07/2022. CLINICAL INDICATION: Male, 59 years old with history of L2-3 Fusion; [facility] TECHNIQUE: XR lumbar spine 2 or 3V - Frontal, lateral and coned in L5-S1 lateral views of the spine. FINDINGS: Intraoperative fluoroscopic radiograph disease of the lumbosacral spine were submitted to r adiology for interpretation. Multilevel posterior fusion hardware which has particular screw and tawnya fixation and multilevel intervertebral disc spacer devices. Osseous structures not well evaluated on this limited fluoroscopy scopic view. Surgical instruments noted on the AP view overlying the lumbosa cral spine. Partially visualized hip arthroplasty. IMPRESSION: Intraoperative fluoroscopic views of the lumbosacral spine as above. [facility], , 05/03/2024 4:04 PM
[2024-05-03] MEDS: SODIUM CHLORIDE 0.9% 1,000 ML IV ONE (16:22)
[2024-05-03 16:26] LABS: Glucose,Whole Blood 158 mg/dL (70-110)
[2024-05-03 17:01] LABS: Glucose,Whole Blood 155 mg/dL (70-110)
[2024-05-03] MEDS: HYDROmorphone PCA 10 MG/50 ML BAG IV PRN (17:13)
[2024-05-03 19:54] LABS: Glucose,Whole Blood 181 mg/dL (70-110)
[2024-05-03] MEDS: SENNOSIDES-DOCUSATE SODIUM 1 EACH TAB PO SCH (22:42)
[2024-05-04 06:09] LABS: Glucose,Whole Blood 226 mg/dL (70-110)
[2024-05-04 07:14] LABS: MCH 29.2 pg (25.0-35.0); MCHC 32.8 g/dL (31.0-37.0); MCV 88.8 fL (80.0-100.0); Mean Platelet Volume 7.5; Platelet Count 385 k/uL (150-450); RBC 3.04 m/uL (4.30-5.90); RDW 14.2 % (11.5-15.5); WBC 8.7 k/uL (3.8-10.6)
[2024-05-04 07:15] LABS: HGB 8.9 gm/dL (13.0-17.5)
[2024-05-04 07:23] LABS: African American GFR (CKD) 88 (>60 ml/min/1.73 sqM); Anion Gap 10 mmol/L; Blood Urea Nitrogen 18 mg/dL (9-20); Calcium 8.4 mg/dL (8.4-10.2); Carbon Dioxide 20 mmol/L (22-30); Chloride 103 mmol/L (98-107); Glucose 226 mg/dL (74-99); Non-African American GFR(CKD) 76 (>60 ml/min/1.73 sqM); Potassium 4.9 mmol/L (3.5-5.1); Sodium 133 mmol/L (137-145)
--- NOTE | 2024-05-04 10:38 | P.PN ---
Subjective Progress Note Date: 05/04/24 Principal diagnosis: acute on chronic back pain status post [id number] decompression and fusion adjacent segment disease L2-L3 with stenosis lower extremity weakness Patient was seen at bedside this morning lying in the semirecumbent position on 4 S. with dressing and drain in place as well as Cunningham/catheter. Patient says his pain is controlled okay with oral medication. Patient says she is looking forward to working with therapy this morning. Patient states there are no new symptoms since surgery was performed. Patient denies any other orthopedic complaints at this time. Objective - Vital Signs Vital signs: Vital Signs Temp 99.6 F 05/04/24 07:25 Pulse 119 H 05/04/24 07:25 Resp 20 05/04/24 09:32 BP 125/80 05/04/24 07:25 Pulse Ox 97 05/04/24 07:25 FiO2 Intake & Output 05/03/24 05/04/24 05/04/24 18:59 06:59 18:59 Intake Total 2200 250 Output Total 620 820 720 Balance 1580 -820 -470 Intake: IV 2200 Oral 250 Output: Drainage 20 20 Lower Posterior Back 20 20 Urine 450 800 700 Estimated Blood Loss 170 Other: Voiding Method Urinal Indwelling Catheter Indwelling Catheter # Voids 2 - Exam Gen: AOx3, NAD VSS stable at this time Integument: No open lesions, sores or areas of erythema to the cervical, thoracic or lumbar spine. There are well-healed incision over the midline lower lumbar spine Palpation: tenderness with palpation is noted to the midline and paraspinal region of the lumbar spine also into the SI joint on the left side ROM: full range of motion in all major muscle groups of the bilateral upper extremity, no focal deficits full range of motion in all major muscle groups of the bilateral lower extremities, this excluding hip flexion on the left, this is significantly decreased Sensory Exam: Senory exam to light touch is intact C5-T1 Senosry exam to light touch is intact L2-S1 Motor: 4+/5 strength of the bilateral upper extremities with shoulder elevation, shoulder abduction, elbow extension, elbow flexion, wrist extension, wrist flexion, p d driver 4/5 strength appreciated to the right lower extremity with hip flexion, knee extension, knee flexion, plantarflexion, dorsiflexion, EHL, FHL 4/5 strength appreciated in the left lower extremity with knee flexion, plantarflexion, dorsiflexion, EHL, FHL 3/5 strength appreciate the left lower extremity with knee extension 3-/5 strength appreciate the left lower extremity with hip flexion Reflexes: 2/4 in all UE and LE negative Jeremias's bilaterally negative clonus bilaterally Special Test: positive straight leg raise left lower extremity logroll maneuver of the bilateral lower extremities reproduces no groin pain - Labs CBC & Chem 7: 05/04/24 06:56 05/04/24 06:56 Labs: Abnormal Lab Results - Last 24 Hours (Table) 05/02/24 05/03/24 05/03/24 Range/Units 12:06 16:25 17:00 RBC (4.30-5.90) m/uL Hgb (13.0-17.5) gm/dL Hct (39.0-53.0) % Sodium (137-145) mmol/L Carbon Dioxide (22-30) mmol/L Glucose (74-99) mg/dL POC Glucose (mg/dL) 158 H 155 H (70-110) mg/dL Hemoglobin A1c 7.3 H (<=6.0) % 05/03/24 05/04/24 05/04/24 Range/Units 19:49 06:08 06:56 RBC 3.04 L (4.30-5.90) m/uL Hgb 8.9 L D (13.0-17.5) gm/dL Hct 27.0 L (39.0-53.0) % Sodium (137-145) mmol/L Carbon Dioxide (22-30) mmol/L Glucose (74-99) mg/dL POC Glucose (mg/dL) 181 H 226 H (70-110) mg/dL Hemoglobin A1c (<=6.0) % 05/04/24 Range/Units 06:56 RBC (4.30-5.90) m/uL Hgb (13.0-17.5) gm/dL Hct (39.0-53.0) % Sodium 133 L (137-145) mmol/L Carbon Dioxide 20 L (22-30) mmol/L Glucose 226 H (74-99) mg/dL POC Glucose (mg/dL) (70-110) mg/dL Hemoglobin A1c (<=6.0) % Assessment and Plan Assessment: acute on chronic back pain. status post [id number] decompression and fusion; adjacent segment disease L2-L3 with stenosis; lower extremity weakness -Postop day #1 status post L2-3 posterolateral and interbody fusion with decompression and revision L2 to pelvis decompression and fusion Plan: 1. acute on chronic back pain. status post [id number] decompression and fusion; adjacent segment disease L2-L3 with stenosis; lower extremity weakness- surgery performed yesterday, 05/03/2024 L2-3 posterolateral and interbody fusion with decompression and revision L2 to pelvis decompression and fusion. Patient stable bedside this morning with dressing and drain in place. Cunningham/catheter in place as well. Monitor and record output in drain. Maintain dressing clean, dry, intact. Plan for possible dressing/drain removal tomorrow. Pain medication as needed. Weightbearing as tolerated with walker and assistance as needed. We will continue to follow patient during stay in hospital. 2. Appreciate medical management 3. Pain management - tylenol; flexeril; gabapentin 4. DVT prophylaxis - aspirin 5. GI prophylaxis - protonix 6. PT/OT -weight-bearing as tolerated with walker and assistance as needed 7. Encourage incentive spirometer use 8. Discharge planning -pending Time with Patient: Less than 30
[2024-05-04 11:33] LABS: Glucose,Whole Blood 214 mg/dL (70-110)
--- NOTE | 2024-05-04 12:11 | FL ---
EXAMINATION TYPE: FL guidance operating room DATE OF EXAM: 05/03/2024 3:46 PM COMPARISON: Pre Operative Images if available both CT/MRI or plain film CLINICAL INDICATION: Male, 59 years old with history of L2-3 Fusion; TECHNIQUE: FL guidance operating room, multiple fluoroscopic images provided for procedure. Total fluoroscopy time: 40.7 seconds Total submitted images to PACS: 5 DAP: 3.0358 mGym2 Gycm2 uGym2 cGycm2 or equivalent. FINDINGS: IMPRESSION: 1. Report was generated for administrative purposes only. 2. Please see the operative/procedural note for further details. [facility], , 05/04/2024 12:09 PM
--- NOTE | 2024-05-04 12:18 | P.PN ---
Subjective Progress Note Date: 05/04/24 59 year old male with past medical history of diabetes mellitus, GERD, hyperlipidemia, hypertension, alcoholic liver cirrhosis, CKD IIIa, bilateral hip replacement, L2-L4 fusion presented to the ED with back pain. He has had a chronic back pain since 2 years after he had L2-L4 cage fusion surgery. Over the past 2 months the pain has started worsen in the lower left back. Since a few days the pain also shoots down the left leg and into his groin. He reports numbness of his left leg. Today the patient talked to his surgeon (Dr Landers) who performed the fusion surgery 2 years ago. His surgeon advised him to go to the ER and get admitted for a spinal surgery. Vitals on admission T 97.7 F, HR 111, RR 15, BP 105/65, O2 sat 97% on RA. CBC, Coag panel, CMP significant for WBC 10.8, RBC 4.24, Hg 12.3, Hct 37.7, Plt 591, BUN 40, Cr 1.58, glu 136. Lactic acid 1.4. Trop < 0.012. BNP 246. UA neg. EKG NSR. Underwent L2-3 fusion with decompression and revision L2-pelvis decompression and fusion with Dr. Landers on 05/03. 05/04 Patient was seen and examined. 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 CBC and BMP significant for RBC 3.04, Hg 8.9, Hct 27, Na 133, bicarb 20, glu 226. General: non toxic, no distress, appears at stated age Derm: warm, dry Head: atraumatic, normocephalic, symmetric Eyes: EOMI, no lid lag, anicteric sclera Mouth: no lip lesion, mucus membranes moist Cardiovascular: S1S2 reg, no murmur Lungs: CTA bilateral, no rhonchi, no rales , no accessory muscle use Ext: no gross muscle atrophy, no edema, no contractures Neuro: no focal neuro deficits Psych: Alert, oriented, appropriate affect +Cunningham Based on my assessment of this patient, this patient meets a high complexity level of care. Acute blood loss anemia: Expected result of surgery. Repeat CBC in the AM. Transfuse if Hg < 7. CKD: At baseline. Continue to monitor. Dyslipidemia: Pravastatin 40 mg PO QHS. Fenofibrate 160 mg PO QD. DM: ISS. Accuchecks ACHS. Hypoglycemic precautions. Bipolar disorder: Buspar 15 mg PO BID. Lexapro 20 mg PO QD. Seroquel 200 mg PO QHS. Insomnia: Melatonin 10 mg PO QHS. Peripheral neuropathy: Gabapentin 1200 mg PO TID. GERD: Pepcid 20 mg PO QD. Protonix 40 mg PO BID. Pancreatitis: Creon 56572 unit PO TID. Resolved: Leukocytosis, JACKIE, HyperK CODE STATUS: FULL CODE DVT Prophylaxis: SCD GI Prophylaxis: Pepcid, Protonix Designated medical POA if patient is not able to make medical decisions for themselves: I have reviewed the following sap ppm consultant notes: Ortho note. I have reviewed the results of the following tests: CBC, BMP. I have ordered the following tests: CBC in the AM. I have discussed the care of this patient with the following independent historian: I have independently interpreted the following test below: I have discussed the management of this patient with the following physician: Objective - Vital Signs Vital signs: Vital Signs Temp 99.6 F 05/04/24 07:25 Pulse 119 H 05/04/24 07:25 Resp 18 05/04/24 07:25 BP 125/80 05/04/24 07:25 Pulse Ox 97 05/04/24 07:25 FiO2 Intake & Output 05/03/24 05/04/24 05/04/24 18:59 06:59 18:59 Intake Total 2200 Output Total 620 820 Balance 1580 -820 Intake: IV 2200 Output: Drainage 20 Lower Posterior Back 20 Urine 450 800 Estimated Blood Loss 170 Other: Voiding Method Urinal Indwelling Catheter - Labs CBC & Chem 7: 05/04/24 06:56 05/04/24 06:56 Labs: Abnormal Lab Results - Last 24 Hours (Table) 05/02/24 05/03/24 05/03/24 Range/Units 12: 09:11 16:25 RBC (4.30-5.90) m/uL Hgb (13.0-17.5) gm/dL Hct (39.0-53.0) % Sodium 135 L (137-145) mmol/L Potassium 5.2 H (3.5-5.1) mmol/L Carbon Dioxide (22-30) mmol/L BUN 26 H (9-20) mg/dL Glucose 160 H (74-99) mg/dL POC Glucose (mg/dL) 158 H (70-110) mg/dL Hemoglobin A1c 7.3 H (<=6.0) % 05/03/24 05/03/24 05/04/24 Range/Units 17:00 19:49 06:08 RBC (4.30-5.90) m/uL Hgb (13.0-17.5) gm/dL Hct (39.0-53.0) % Sodium (137-145) mmol/L Potassium (3.5-5.1) mmol/L Carbon Dioxide (22-30) mmol/L BUN (9-20) mg/dL Glucose (74-99) mg/dL POC Glucose (mg/dL) 155 H 181 H 226 H (70-110) mg/dL Hemoglobin A1c (<=6.0) % 05/04/24 05/04/24 Range/Units 06:56 06:56 RBC 3.04 L (4.30-5.90) m/uL Hgb 8.9 L D (13.0-17.5) gm/dL Hct 27.0 L (39.0-53.0) % Sodium 133 L (137-145) mmol/L Potassium (3.5-5.1) mmol/L Carbon Dioxide 20 L (22-30) mmol/L BUN (9-20) mg/dL Glucose 226 H (74-99) mg/dL POC Glucose (mg/dL) (70-110) mg/dL Hemoglobin A1c (<=6.0) %
[2024-05-04 16:34] LABS: Glucose,Whole Blood 268 mg/dL (70-110)
--- NOTE | 2024-05-04 16:36 | P.OP ---
Date of Procedure: 05/03/24 Preoperative Diagnosis: 1. 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 L2-3 INSTABILITY 3. L2-3 STENOSIS, SEVERE WITH NEUROGENIC CLAUDICATION 4. LOW BACK PAIN Postoperative Diagnosis: 1. 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 L2-3 INSTABILITY 3. L2-3 STENOSIS, SEVERE WITH NEUROGENIC CLAUDICATION 4. LOW BACK PAIN Procedure(s) Performed: 1. L2-3 POSTEROLATERAL AND INTERBODY FUSION 2. L2-L4 SEGMENTAL INSTRUMENTATION 3. L2-3 BILATERAL LAMINECTOMY, COMPLETE FACETECTOMY AND FORAMINOTOMY 4. L2-3 INSERTION OF BIOMECHANICAL DEVICE 5. REMOVAL OF HARDWARE, CROSSLINKS X2 L2-3 AND L4-5 6. EXPLORATION OF FUSION L3-PELVIS USE OF IONM Implants: GLOBUS CREO RODS AND SCREWS LIFE SPINE PROLIFT CAGE 9 MM AUTOGRAFT, CONTOUR, DBM AND DBM BOATS. Anesthesia: GETA Surgeon: Ulices Landers Estimated Blood Loss (ml): 150 IV fluids (ml): 1,200 Urine output (ml): 200 Pathology: none sent Condition: stable Disposition: PACU Indications for Procedure: Andrea Elliott is a 59 yo male presenting for evaluation of low back pain, LE weakness acute with increasing LE pain and back pain as well as perineal sx. It was my pleasure to have seen and examined Andrea Elliott. In our visit today we have had a chance to go over subjective complaints, physical examination findings and treatments including the natural course history without intervention and various interventional options. The patients imaging demonstrates L2-3 ASD, severe with severe stenosis, spondylosis, collapse and degenerative changes. On physical exam, Andrea Elliott demonstrates LE tensioning signs with +SLR, pain with ROM, Radiculopathy, weakness 4/5 all major muscle groups as well as diffculty with ambuation and starting with difficulty with UI and BMs. I have explained to the patient that as their condition progresses it will cause further neurological deficits and eventual paralysis. Based on the patients imaging, physical exam, and the rapid progression and disabling nature of their symptoms, at this time I recommend surgery in the form or a: Revision L2-Pelvis with L2-3 posterolateral and interbody fusion I discussed the risk and benefits of this procedure at length with Andrea Elliott. The patient agreed to considered pursuing the procedure abovementioned. Prior to surgery, she should follow up with her PCP (Cardio, ID, IM etc) for clearance. Questions were invited and answered, and the patient wishes to proceed as outlined below. Currently, I am recommendin. L2-3 POSTEROLATERAL AND INTERBODY FUSION WITH DECOMPRESSION AND REVISION L2-PELVIS DECOMPRESSION AND FUSION Description of Procedure: L2-3 open laminectomy with posterolateral and interbody fusion (REVISION) The patient was seen and examined in the preoperative area. All preoperative protocols were followed. Informed consent was obtained, risks and benefits of the procedure were discussed at length. Risks including bleeding infection damage to the surrounding tissue and risk of reoperation were discussed with the patient. Risk of anesthesia up to and including was discussed with the patient. These are outlined in the risk review. They were willing to accept these risks and all of the risks of surgery. The patient was given a weight-base d dose of antibiotics in the form of [Ancef]. The patient was seen and evaluated by the anesthesia team who deemed them fit for surgery. The site was marked, the patient was willing to proceed with the procedure. The patient was transferred to the operative suite by the Department of anesthesia. They were then drifted off to sleep by the department anesthesia and [GETA] was performed. The patient tolerated this well. [Cunningham catheter was placed by nursing staff, atraumatically]. Once confirmation of lines and ventilation the patient was transferred to a [prone Larry table very carefully]. All bony prominences including wrists, elbows, axilla, chest, hips, and thighs, and feet were padded very well. Special attention was paid to the genitalia and these were padded accordingly. SCDs were placed on bilateral lower extremities and were connected. Arms were well padded and placed [on arm boards up and out in the 90/90 position]. Once in position, again we confirmed good ventilation capabilities and that lines were running appropriately. The patient's [Lumbar] spine was then exposed. 1010s were placed outlining the incision site. Standard alcohol was used to clean the incision site and allowed to dry. C-arm was used to biomark the patient and confirm level for incision which was marked with a skin marker. Operative briefing was performed with all teams and everyone in agreement to proceed. The patient was then prepped and draped in a normal sterile fashion. Timeout was then performed and all parties were in agreement with the procedure to be performed. Midline skin incision made and subperiosteal dissection taken down over the lamina of L1-4. The previous fusion mass from L3-S1 was carefully explored and found to be solid with good incorporation of bone graft. The crosslinks at L3-4 and L5-S1 were identified and found to be causing soft tissue irritation. These were carefully dissected free from surrounding tissue and removed without disruption to the existing fusion construct. Of note, this was the adjacent level above a prior L3-Pelvis fusion which demonstrated significant instability and stenosis due to facet overgrowth and hypertrophy, with ligamental hypertro phy causing lateral recess, severe foraminal stenosis, and central stenosis. All previous hardware was found to be well-fixed with no evidence of loosening. Crosslinks were removed from L3-4 region and L5-S1 region due to irritation of the surrounding tissues. Facet joints located and protected. Laneview 4 was placed at the pars of L2 to kasey and lateral image taken to confirm levels for operation. Bilateral laminectomy, partial medial facetectomy and foraminotomies were then performed at L2-3 using high speed alfredo, 2-0 upbiting curette, 6-0 kerrison and 4-0 kerrison rongeurs. Ligamentum was removed. Deep facet joints capsule was removed along with cysts that were found deep from the facets. Foraminotomies done with kerrison and checked with a Lunsford ball probe. After adequate decompression was achieved, attention was turned to instrumentation. Under AP and lateral fluoroscopic guidance, entry points for pedicle screws were identified at L2 and L3. Using a high-speed alfredo, corporation pilot holes were created. Trajectory was confirmed with AP and lateral imaging. A pedicle finder was then used to establish the tract, followed by careful palpation with a ball-tipped feeler to confirm intact bony borders. Appropriate size pedicle screws were then placed using a screwdriver under fluoroscopic guidance. Satisfactory position was confirmed with AP and lateral imaging. The disc space at L2-3 was then prepared. Following complete discectomy and endplate preparation, an appropriately sized interbody cage packed with local autograft and allograft was inserted under fluoroscopic guidance. Rods were then cut to appropriate length, contoured, and secured to the screws. Local autograft mixed with allograft was then placed in the posterolateral gutters after decortication of the transverse processes. Once fusion was completed, meticulous hemostasis was done with floseal, paddies and gel foam. The wound bed was then irrigated with 6 L Abx Anfect and Gen followed by 6L NSS. The wound was inspected. Good decompression and hardware position noted with no injury. X Ray taken AP and lateral with markers to `confirm hardware position and decompression. Surgicel was placed on the dura. 2g Vanco powder placed in the wound. Deep drain placed and secured with a stitch to the skin. We then proceeded with closure. #1 PDS placed in the facia. 0 Vicryl placed in the deep subq and 2-0 in the superficial. Kulwant placed in the skin. Wound edges approximated very well. The wound was then cleaned and dressed sterilly with Optifoam dressing, drain sponge and tegaderm. The patient was transferred back to their hospital bed atraumatically. [Drain continued to hold suction and was in a good position]. Patient was then awakened and extubated by the department of anesthesia having tolerated the procedure very well with no complications. They were transferred to the postoperative care unit in stable condition.
[2024-05-04 20:11] LABS: Glucose,Whole Blood 214 mg/dL (70-110)
[2024-05-05 03:17] LABS: HGB 9.1 gm/dL (13.0-17.5); MCH 28.9 pg (25.0-35.0); MCHC 33.8 g/dL (31.0-37.0); MCV 85.4 fL (80.0-100.0); Mean Platelet Volume 8.8; Platelet Count 414 k/uL (150-450); RBC 3.16 m/uL (4.30-5.90); RDW 13.9 % (11.5-15.5); WBC 12.4 k/uL (3.8-10.6)
[2024-05-05 05:58] LABS: Glucose,Whole Blood 220 mg/dL (70-110)
--- NOTE | 2024-05-05 09:44 | P.PN ---
Subjective Progress Note Date: 05/05/24 Principal diagnosis: acute on chronic back pain status post [id number] decompression and fusion adjacent segment disease L2-L3 with stenosis lower extremity weakness Patient was seen at bedside this morning lying in the semirecumbent position on 4 S. with dressing and drain in place as well as Cunningham/catheter. Patient says his pain is controlled okay with oral medication. Patient says she is looking forward to working with therapy this morning. Patient states there are no new symptoms since surgery was performed. Patient denies any other orthopedic complaints at this time. Objective - Vital Signs Vital signs: Vital Signs Temp 98.4 F 05/05/24 07:00 Pulse 106 H 05/05/24 07:00 Resp 18 05/05/24 07:00 BP 100/66 05/05/24 07:00 Pulse Ox 90 L 05/05/24 07:00 FiO2 Intake & Output 05/04/24 05/05/24 05/05/24 18:59 06:59 18:59 Intake Total 800 Output Total 4560 3635 Balance -8264 -3633 Intake: Oral 800 Output: Drainage 40 35 Lower Posterior Back 40 35 Urine 4520 3600 Other: Voiding Method Indwelling Catheter Indwelling Catheter # Voids 4 # Bowel Movements 1 - Exam Gen: AOx3, NAD VSS stable at this time Integument: No open lesions, sores or areas of erythema to the cervical, thoracic or lumbar spine. Drain removed at bedside and dressing changed. incision healing well. stapled well aligned and intact. Palpation: tenderness with palpation is noted to the midline around incision and paraspinal region of the lumbar spine also into the SI joint on the left side ROM: full range of motion in all major muscle groups of the bilateral upper extremity, no focal deficits full range of motion in all major muscle groups of the bilateral lower extremities, this excluding hip flexion on the left, this is significantly decreased Sensory Exam: Senory exam to light touch is intact C5-T1 Senosry exam to light touch is intact L2-S1 Motor: 4+/5 strength of the bilateral upper extremities with shoulder elevation, shoulder abduction, elbow extension, elbow flexion, wrist extension, wrist flexion, open shank coverer 4/5 strength appreciated to the right lower extremity with hip flexion, knee extension, knee flexion, plantarflexion, dorsiflexion, EHL, FHL 4/5 strength appreciated in the left lower extremity with knee flexion, plantarflexion, dorsiflexion, EHL, FHL 3/5 strength appreciate the left lower extremity with knee extension 3-/5 strength appreciate the left lower extremity with hip flexion Reflexes: 2/4 in all UE and LE negative Jeremias's bilaterally negative clonus bilaterally Special Test: positive straight leg raise left lower extremity logroll maneuver of the bilateral lower extremities reproduces no groin pain - Labs CBC & Chem 7: 05/05/24 02:52 05/04/24 06:56 Labs: Abnormal Lab Results - Last 24 Hours (Table) 05/04/24 05/04/24 05/04/24 Range/Units 11:31 16:32 20:09 WBC (3.8-10.6) k/uL RBC (4.30-5.90) m/uL Hgb (13.0-17.5) gm/dL Hct (39.0-53.0) % POC Glucose (mg/dL) 214 H 268 H 214 H (70-110) mg/dL 05/05/24 05/05/24 Range/Units 02:52 05:56 WBC 12.4 H (3.8-10.6) k/uL RBC 3.16 L (4.30-5.90) m/uL Hgb 9.1 L (13.0-17.5) gm/dL Hct 27.0 L (39.0-53.0) % POC Glucose (mg/dL) 220 H (70-110) mg/dL Assessment and Plan Assessment: acute on chronic back pain. status post [id number] decompression and fusion; adjacent segment disease L2-L3 with stenosis; lower extremity weakness -Postop day #2 status post L2-3 posterolateral and interbody fusion with decompression and revision L2 to pelvis decompression and fusion Plan: 1. acute on chronic back pain. status post [id number] decompression and fusion; adjacent segment disease L2-L3 with stenosis; lower extremity weakness- surgery performed 05/03/2024 L2-3 posterolateral and interbody fusion with decompression and revision L2 to pelvis decompression and fusion. Patient stable bedside this morning with dressing and drain in place. Minimal output in drain. Drain removed at bedside. Dressing changed. Incision healing well. Cunningham/catheter in place as well. Pain medication as needed. Weightbearing as tolerated with walker and assistance as needed. We will continue to follow patient during stay in hospital. 2. Appreciate medical management 3. Pain management - tylenol; flexeril; gabapentin 4. DVT prophylaxis - aspirin 5. GI prophylaxis - protonix 6. PT/OT -weight-bearing as tolerated with walker and assistance as needed 7. Encourage incentive spirometer use 8. Discharge planning -pending Time with Patient: Less than 30
[2024-05-05 11:20] LABS: Glucose,Whole Blood 269 mg/dL (70-110)
--- NOTE | 2024-05-05 11:46 | P.PN ---
Subjective Progress Note Date: 05/05/24 59 year old male with past medical history of diabetes mellitus, GERD, hyperlipidemia, hypertension, alcoholic liver cirrhosis, CKD IIIa, bilateral hip replacement, L2-L4 fusion presented to the ED with back pain. He has had a chronic back pain since 2 years after he had L2-L4 cage fusion surgery. Over the past 2 months the pain has started worsen in the lower left back. Since a few days the pain also shoots down the left leg and into his groin. He reports numbness of his left leg. Today the patient talked to his surgeon (Dr Landers) who performed the fusion surgery 2 years ago. His surgeon advised him to go to the ER and get admitted for a spinal surgery. Vitals on admission T 97.7 F, HR 111, RR 15, BP 105/65, O2 sat 97% on RA. CBC, Coag panel, CMP significant for WBC 10.8, RBC 4.24, Hg 12.3, Hct 37.7, Plt 591, BUN 40, Cr 1.58, glu 136. Lactic acid 1.4. Trop < 0.012. BNP 246. UA neg. EKG NSR. Underwent L2-3 fusion with decompression and revision L2-pelvis decompression and fusion with Dr. Landers on 05/03. 05/04 Patient was seen and examined. Pain well controlled on PHARMACOLOGY ASSOCIATE pump. CBC and BMP significant for RBC 3.04, Hg 8.9, Hct 27, Na 133, bicarb 20, glu 226. 05/05 Patient was seen and examined. Able to have a bowel movement. Still with PHARMACOLOGY ASSOCIATE pump for pain control. CBC WBC 12.4, RBC 3.16, Hg 9.1, Hct 27. He is 90% on RA. General: non toxic, no distress, appears at stated age Derm: warm, dry Head: atraumatic, normocephalic, symmetric Eyes: EOMI, no lid lag, anicteric sclera Mouth: no lip lesion, mucus membranes moist Cardiovascular: S1S2 reg, no murmur Lungs: CTA bilateral, no rhonchi, no rales , no accessory muscle use Ext: no gross muscle atrophy, no edema, no contractures Neuro: no focal neuro deficits Psych: Alert, oriented, appropriate affect +Cunningham Based on my assessment of this patient, this patient meets a high complexity level of care. Acute blood loss anemia: Expected result of surgery. Transfuse if Hg < 7. Hypoxia: Possible atelectasis. CXR ordered. IS ordered. CKD: At baseline. Continue to monitor. Dyslipidemia: Pravastatin 40 mg PO QHS. Fenofibrate 160 mg PO QD. DM: ISS. Accuchecks ACHS. Hypoglycemic precautions. Bipolar disorder: Buspar 15 mg PO BID. Lexapro 20 mg PO QD. Seroquel 200 mg PO QHS. Insomnia: Melatonin 10 mg PO QHS. Peripheral neuropathy: Gabapentin 1200 mg PO TID. GERD: Pepcid 20 mg PO QD. Protonix 40 mg PO BID. Pancreatitis: Creon 94184 unit PO TID. Resolved: Leukocytosis, JACKIE, HyperK PT and OT consulted. Discussed with case management, will likely need SNF on discharge. CODE STATUS: FULL CODE DVT Prophylaxis: SCD GI Prophylaxis: Pepcid, Protonix Designated medical POA if patient is not able to make medical decisions for themselves: I have reviewed the following testing consultant notes: Ortho note. I have reviewed the results of the following tests: CBC I have ordered the following tests: I have discussed the care of this patient with the following independent historian: Case management. I have independently interpreted the following test below: I have discussed the management of this patient with the following physician: Objective - Vital Signs Vital signs: Vital Signs Temp 98.4 F 05/05/24 07:00 Pulse 106 H 05/05/24 07:00 Resp 18 05/05/24 07:00 BP 100/66 05/05/24 07:00 Pulse Ox 90 L 05/05/24 07:00 FiO2 Intake & Output 05/04/24 05/05/24 05/05/24 18:59 06:59 18:59 Intake Total 800 Output Total 9884 3394 Balance -0593 -3282 Intake: Oral 800 Output: Drainage 40 35 Lower Posterior Back 40 35 Urine 4520 3600 Other: Voiding Method Indwelling Catheter Indwelling Catheter # Voids 4 # Bowel Movements 1 - Labs CBC & Chem 7: 05/05/24 02:52 05/04/24 06:56 Labs: Abnormal Lab Results - Last 24 Hours (Table) 05/04/24 05/04/24 05/05/24 Range/Units 16:32 20:09 02:52 WBC 12.4 H (3.8-10.6) k/uL RBC 3.16 L (4.30-5.90) m/uL Hgb 9.1 L (13.0-17.5) gm/dL Hct 27.0 L (39.0-53.0) % POC Glucose (mg/dL) 268 H 214 H (70-110) mg/dL 05/05/24 05/05/24 Range/Units 05:56 11:19 WBC (3.8-10.6) k/uL RBC (4.30-5.90) m/uL Hgb (13.0-17.5) gm/dL Hct (39.0-53.0) % POC Glucose (mg/dL) 220 H 269 H (70-110) mg/dL
--- NOTE | 2024-05-05 12:19 | XR ---
EXAMINATION TYPE: XR chest 1V portable DATE OF EXAM: 05/05/2024 11:54 AM COMPARISON: Chest radiographs from 04/02/2024 CLINICAL INDICATION: Male, 59 years old with history of hypoxia; TECHNIQUE: XR chest 1V portable Frontal view of the chest. FINDINGS: Lungs/Pleura: There is no evidence of pleural effusion, focal consolidation, or pneumothorax. Pulmonary vascularity: Unremarkable. Heart/mediastinum: Cardiomediastinal silhouette is unremarkable. Musculoskeletal: No acute osseous pathology. IMPRESSION: No acute cardiopulmonary disease/process. [facility], , 05/05/2024 12:16 PM
[2024-05-05 16:50] LABS: Glucose,Whole Blood 205 mg/dL (70-110)
[2024-05-05 20:06] LABS: Glucose,Whole Blood 260 mg/dL (70-110)
[2024-05-05 21:37] VITALS: RESP 16
[2024-05-05] MEDS ORDERED: ETODOLAC 400 MG TAB PO PRN (22:45)
[2024-05-05] MEDS: HYDROmorphone 2 MG TAB PO PRN (23:06)
[2024-05-05] MEDS: LORazepam 1 MG TAB PO PRN (23:07)
[2024-05-06 02:24] VITALS: TEMP 98.4
[2024-05-06 06:26] LABS: Glucose,Whole Blood 251 mg/dL (70-110)
--- NOTE | 2024-05-06 11:45 | CDI ---
Documentation Clarification Form Date: 05/06/2024 11:08:38 AM From: Pat Roland RN CCDS Phone: [phone] Admit Date: 05/03/2024 03:36:00 PM Patient Name: Andrea Elliott Visit Number: [id number] Discharge Date: ATTENTION: The Clinical Documentation Specialists (CDI) and [facility] Coding Staff appreciate your assistance in clarifying documentation. Please respond to the clarification below the line at the bottom and electronically sign. The CDI & [facility] Coding staff will review the response and follow-up if needed. Please note: Queries are made part of the Legal Health Record. If you have any questions, please contact the author of this message via ITS. Doctor: Cameron Cross There is documentation of pancreatitis, 05/05 Medicine note. Additional clarification of the acuity of the condition is requested. History/Risk Factors: 59 y/o male presents to the ED with left lower extremity weakness and numbness. Medical History: DM, GERD, HLD, HTN, Alcoholic liver cirrhosis, CKD 3a and prior back surgery. 05/01, Medical consult. Clinical Indicators: VSS, 05/01: B/P 105/65; HR 111; Temp 97.7F Oral, RR 15, SpO2 97% LABS 05/01: Wbc 10.8, Hgb 12.3, RBC 4.24, Neutrophils 7.9, BUN 40, CR 1.48, Glucose 136, Calcium 9.5 Treatment: 05/01 0.9NS 1L IVFL, 05/02 Creon capsule 1 cap po TID with meals Can you please clarify the acuity of the Pancreatitis? [x ] Chronic Pancreatitis [ ] Other, please specify [ ] Unable to determine (Template Last Reviewed: June 2022) MTDD
[2024-05-06 11:52] LABS: Glucose,Whole Blood 314 mg/dL (70-110)
--- NOTE | 2024-05-06 11:52 | P.PN ---
Subjective Progress Note Date: 05/06/24 Principal diagnosis: acute on chronic back pain status post [id number] decompression and fusion adjacent segment disease L2-L3 with stenosis lower extremity weakness Patient was seen at bedside this morning sitting up in chair on 4 S. with dressing and drain in place. Patient says his pain is controlled okay with oral medication. Patient says she is looking forward to working with therapy this morning. Patient states there are no new symptoms since surgery was performed. Patient denies any other orthopedic complaints at this time. Objective - Vital Signs Vital signs: Vital Signs Temp 98.4 F 05/06/24 08:08 Pulse 103 H 05/06/24 08:08 Resp 16 05/06/24 08:08 BP 100/71 05/06/24 08:08 Pulse Ox 94 L 05/06/24 08:08 FiO2 Intake & Output 05/05/24 05/06/24 05/06/24 18:59 06:59 18:59 Output Total 1899 1949 Balance -1899 -1949 Output: Urine 1899 1949 Other: Voiding Method Indwelling Catheter - Exam Gen: AOx3, NAD VSS stable at this time Integument: No open lesions, sores or areas of erythema to the cervical, thoracic or lumbar spine. Dressing CDI Palpation: tenderness with palpation is noted to the midline around incision and paraspinal region of the lumbar spine also into the SI joint on the left side ROM: full range of motion in all major muscle groups of the bilateral upper extremity, no focal deficits full range of motion in all major muscle groups of the bilateral lower extremities, this excluding hip flexion on the left, this is significantly decreased Sensory Exam: Senory exam to light touch is intact C5-T1 Senosry exam to light touch is intact L2-S1 Motor: 4+/5 strength of the bilateral upper extremities with shoulder elevation, shoulder abduction, elbow extension, elbow flexion, wrist extension, wrist flexion, rolling down machine operator 4/5 strength appreciated to the right lower extremity with hip flexion, knee extension, knee flexion, plantarflexion, dorsiflexion, EHL, FHL 4/5 strength appreciated in the left lower extremity with knee flexion, plantarflexion, dorsiflexion, EHL, FHL 3/5 strength appreciate the left lower extremity with knee extension 3-/5 strength appreciate the left lower extremity with hip flexion Reflexes: 2/4 in all UE and LE negative Jeremias's bilaterally negative clonus bilaterally Special Test: positive straight leg raise left lower extremity logroll maneuver of the bilateral lower extremities reproduces no groin pain - Labs CBC & Chem 7: 05/05/24 02:52 05/04/24 06:56 Labs: Abnormal Lab Results - Last 24 Hours (Table) 05/05/24 05/05/24 05/06/24 Range/Units 16:49 20:03 06:23 POC Glucose (mg/dL) 205 H 260 H 251 H (70-110) mg/dL Assessment and Plan Assessment: acute on chronic back pain. status post [id number] decompression and fusion; adjacent segment disease L2-L3 with stenosis; lower extremity weakness -Postop day #3 status post L2-3 posterolateral and interbody fusion with decompression and revision L2 to pelvis decompression and fusion Plan: 1. acute on chronic back pain. status post [id number] decompression and fusion; adjacent segment disease L2-L3 with stenosis; lower extremity weakness- surgery performed 05/03/2024 L2-3 posterolateral and interbody fusion with decompression and revision L2 to pelvis decompression and fusion. Patient stable bedside this morning with dressing in place. Dressing CDI. Pain medication as needed. Weightbearing as tolerated with walker and assistance as needed. Discharge to rehab today. 2. Appreciate medical management 3. Pain management - tylenol; flexeril; gabapentin 4. DVT prophylaxis - aspirin 5. GI prophylaxis - protonix 6. PT/OT -weight-bearing as tolerated with walker and assistance as needed 7. Encourage incentive spirometer use 8. Discharge planning -to rehab today Time with Patient: Less than 30
--- NOTE | 2024-05-06 11:57 | P.PN ---
Subjective Progress Note Date: 05/06/24 59 year old male with past medical history of diabetes mellitus, GERD, hyperlipidemia, hypertension, alcoholic liver cirrhosis, CKD IIIa, bilateral hip replacement, L2-L4 fusion presented to the ED with back pain. He has had a chronic back pain since 2 years after he had L2-L4 cage fusion surgery. Over the past 2 months the pain has started worsen in the lower left back. Since a few days the pain also shoots down the left leg and into his groin. He reports numbness of his left leg. Today the patient talked to his surgeon (Dr Landers) who performed the fusion surgery 2 years ago. His surgeon advised him to go to the ER and get admitted for a spinal surgery. Vitals on admission T 97.7 F, HR 111, RR 15, BP 105/65, O2 sat 97% on RA. CBC, Coag panel, CMP significant for WBC 10.8, RBC 4.24, Hg 12.3, Hct 37.7, Plt 591, BUN 40, Cr 1.58, glu 136. Lactic acid 1.4. Trop < 0.012. BNP 246. UA neg. EKG NSR. Underwent L2-3 fusion with decompression and revision L2-pelvis decompression and fusion with Dr. Landers on 05/03. 05/04 Patient was seen and examined. Pain well controlled on SUPERVISOR MAPPING pump. CBC and BMP significant for RBC 3.04, Hg 8.9, Hct 27, Na 133, bicarb 20, glu 226. 05/05 Patient was seen and examined. Able to have a bowel movement. Still with SUPERVISOR [employer] pump for pain control. CBC WBC 12.4, RBC 3.16, Hg 9.1, Hct 27. He is 90% on RA. 05/06 Patient was seen and examined. Cunningham catheter discontinued. SUPERVISOR MAP[employer] pump discontinued. Pain well controlled. Working with PT and OT. Hopeful plans for SNF on discharge. CXR done yesterday negative for acute process. General: non toxic, no distress, appears at stated age Derm: warm, dry Head: atraumatic, normocephalic, symmetric Eyes: EOMI, no lid lag, anicteric sclera Mouth: no lip lesion, mucus membranes moist Cardiovascular: S1S2 reg, no murmur Lungs: CTA bilateral, no rhonchi, no rales , no accessory muscle use Ext: no gross muscle atrophy, no edema, no contractures Neuro: no focal neuro deficits Psych: Alert, oriented, appropriate affect +Cunningham Based on my assessment of this patient, this patient meets a high complexity level of care. Acute blood loss anemia: Expected result of surgery. Transfuse if Hg < 7. Leukocytosis: Likely reactive. No signs of active infection. Monitor fever profile. Hypoxia: Improved. Possible atelectasis. CXR ordered. IS ordered. CKD: At baseline. Continue to monitor. Dyslipidemia: Pravastatin 40 mg PO QHS. Fenofibrate 160 mg PO QD. DM: ISS. Accuchecks ACHS. Hypoglycemic precautions. Bipolar disorder: Buspar 15 mg PO BID. Lexapro 20 mg PO QD. Seroquel 200 mg PO QHS. Insomnia: Melatonin 10 mg PO QHS. Peripheral neuropathy: Gabapentin 1200 mg PO TID. GERD: Pepcid 20 mg PO QD. Protonix 40 mg PO BID. Pancreatitis: Creon 24641 unit PO TID. Resolved: Leukocytosis, JACKIE, HyperK Plans for SNF on discharge. Insurance auth pending. Medically stable. CODE STATUS: FULL CODE DVT Prophylaxis: SCD GI Prophylaxis: Pepcid, Protonix Designated medical POA if patient is not able to make medical decisions for themselves: I have reviewed the following spa consultant notes: Ortho note. I have reviewed the results of the following tests: I have ordered the following tests: I have discussed the care of this patient with the following independent historian: Case management. I have independently interpreted the following test below: CXR I have discussed the management of this patient with the following physician: Objective - Vital Signs Vital signs: Vital Signs Temp 98.4 F 05/06/24 08:08 Pulse 103 H 05/06/24 08:08 Resp 16 05/06/24 08:08 BP 100/71 05/06/24 08:08 Pulse Ox 94 L 05/06/24 08:08 FiO2 Intake & Output 05/05/24 05/06/24 05/06/24 18:59 06:59 18:59 Output Total 1899 1949 Balance -1899 -1949 Output: Urine 1899 1949 Other: Voiding Method Indwelling Catheter - Labs CBC & Chem 7: 05/05/24 02:52 05/04/24 06:56 Labs: Abnormal Lab Results - Last 24 Hours (Table) 05/05/24 05/05/24 05/06/24 Range/Units 16:49 20:03 06:23 POC Glucose (mg/dL) 205 H 260 H 251 H (70-110) mg/dL 05/06/24 Range/Units 11:51 POC Glucose (mg/dL) 314 H (70-110) mg/dL
--- NOTE | 2024-05-06 12:04 | P.DS ---
Providers Date of admission: 05/03/24 15:36 Expected date of discharge: 05/06/24 Attending physician: Ulices Landers DO Consults: 05/01/24 17:49 Consult Physician Routine Consulting Provider: Ezio Smith Consult Reason/Comments: back pain Do you want consulting provider notified?: Yes Primary care physician: [facility] Course: Date of admission: 05/02/2024 Date of discharge: 05/06/2024 Admission diagnosis: Acute on chronic back pain. status post [id number] decompression and fusion; adjacent segment disease L2-L3 with stenosis; lower extremity weakness Discharge diagnosis: Same Attending physician: Dr. Landers Surgical procedures: L2-3 posterolateral and interbody fusion with decompression and revision L2 to pelvis decompression and fusion Brief history: Patient is a 59-year-old male with a history of acute on chronic back pain; adjacent segment disease L2-L3 with stenosis; lower extremity weakness. At this point patient has failed conservative treatment measures and has opted to proceed with a elective L2-3 posterior lateral interbody fusion with decompression and revision L2 to pelvis decompression and fusion. Hospital course: Details of patient's surgery can be found in operative report. Patient tolerated the procedure well and was subsequently transported to orthopedic floor. Patient's orthopeidc and medical care was provided daily. Patient had daily laboratory tests performed for evaluation of overall blood counts. Patient had daily physical therapy to include strengthening range of motion as well as education with walker ambulation. Patient was treated with aspirin for their postoperative DVT prophylaxis during their inpatient stay. Patient was noted to have a relatively uneventful postoperative course. Patient reported satisfactory pain control with oral pain medications by postoperative day 3. Patient showed satisfactory progress with physical therapy. Patient moved steadily through the program and had no difficulty meeting the goals by postoperative day 3. Given patient's otherwise satisfactory course and having met physical therapy goals, plan is to discharge patient to rehab on postope rative day 3. Discharge condition/disposition: Patient will be discharged to rehab in stable condition. Discharge medications: Instructions are given on resumption of patient's normal daily medications per primary care recommendation, in addition patient will be prescribed Ativan; senna; gabapentin; Flexeril; Duricef. Spine Discharge and Recovery Instructions Date of Surgery: 05/03/2024 Diagnosis: Acute on chronic back pain. status post [id number] decompression and fusion; adjacent segment disease L2-L3 with stenosis; lower extremity weakness Procedure: L2-3 posterolateral and interbody fusion with decompression and revision L2 to pelvis decompression and fusion Medications: See medication list All medication refills should be obtained through your primary care doctor or your clinic spine surgeon. Please discuss prescription refills at your follow up appointment. Do not call the hospital for medication refills. Dressing: Leave your dressing in place for a total of 5 days post operatively. Then you may remove your dressing and leave open to air. Keep the area clean and if not able to keep area clean, then cover with sterile gauze and tape. Showering: You may shower 3 days after your procedure allowing soap and water to run over incision. Do not scrub. Do not soak. Blot dry. Follow up: Please confirm a follow up appointment with your surgeon 3 weeks post operatively. Please make an appointment to follow up with your PCP in 1-2 weeks after surgery for evaluation '3 phase, 3-week plan' POST OP WEEKS 1-3 1. Lifting/carrying/pushing/pulling limited to less than 5 pounds. 2. Do not sit for longer than 15 minutes at one time. Get up and walk around. Prolonged sitting is NOT advised. If you lay down, see if you can tolerate laying down on you front (belly side) 3. Walk for periods of 15 minutes = 1 mile but no longer; do it multiple times times each day. 4. Ice your low back after activity. POST OP WEEKS 3-6 1. Lifting limited to less than 20 pounds. 2. Do not sit for longer than 30 minutes at a time. Frequently change positions. Use a sit-to stand workstation or take frequent breaks from sitting if you have returned to work. 3. Walk for 30 minutes each day. If possible, do these three or more times a day POST OP WEEKS 6+ At your 6-week appointment we will give you a physical therapy referral to focus on a core stabilization and strengthening program. You should also work on leg & buttock strengthening, hamstring & quadriceps stretching, and continue a low impact aerobic activity program such as swimming, walking, or riding a stationary bicycle. During the initial 6 weeks after your surgery, you are at the highest risk of re-injuring your spine. You should generally avoid BLT's (bending, lifting and twisting combination motions) and follow the above guidelines to reduce the chance of reinjury. You can anticipate post op appointments in our office at approximately 3 weeks and 6 weeks after your surgery. INCISION CARE: If your incision is not draining you do NOT need to cover it with a dressing. Keep your incision clean, dry and intact. In most cases, we apply skin glue, kasi or sutures to the incision at the time of surgery. This will be like a crust or have the appearance of a scab and will fall off in time on its own. The stitches or kasi need to be removed at 3 weeks post op appointment. You may begin to shower 3 days after surgery (this allows the glue to mcmullen well). However, please avoid scrubbing the incision site or peeling off any of the skin glue. This will ensure optimal healing of your incision. Also, during this time avoid soaking the incision area in water - this includes swimming pools, hot tubs or baths. No ointments, lotions or oils on the incision until your surgeon allows. Leave kasi, sutures or glue in place. Neurological dysfunction that comes on suddenly can also be a sign of a stroke. Below some common symptoms of a stroke are listed: B - balance difficulty such as sudden onset walking or leaning to one side - NEW E - eye problem such as sudden double vision or trouble seeing on one side - NEW F - Facial weakness or numbness on one side - NEW A - Arm or leg weakness or numbness on one side - NEW S - Slurred speech or difficulty with word finding - NEW T - Time is BRAIN! Call 911 as soon as you recognize these symptoms Diet: Consume a regular diet rich in vegetables and lean protein such as chicken or fish. You should consume in a ratio of approximately 20% fats|40% carbohydrates|40%protein. Vegetables, sweet potatoes, brown rice or quinoa are examples of good carbohydrates. Chips, white bread, cookies and sweets/sugar are examples of bad carbohydrates. Limit your bad carbs, go wild with good carbs. "Life's Simple 7" Guidelines as per [employer] These will help you reclaim your life after surgery and [employer] in your recovery, keeping in mind your restrictions. (1) Get Active. Physical activity can help people lose weight, control high blood pressure and cholesterol, feel emotionally better, and sleep better. (2) Control Cholesterol. Avoid a diet high in saturated fat, trans fat, & cholesterol. Limit whole milk & cream, ice cream, butter, egg yolks, processed meats (like sausage and hot dogs), and fatty meats. Choose healthy foods that are low in saturated fat, trans fat and cholesterol which include: Fruits and vegetables, fiber rich grain products (like whole grain pasta and brown rice), lean meat such as chicken, fish, nuts, seeds, and legumes. (3) Eat Better. Eat small portions. Shop at the grocery with a list and do not stray from it. Tips for a healthy diet include: Limit sodium intake to less than 1500mg daily, avoid prepackaged, processed, and fast foods, choose a diet rich in fruits, vegetables, and whole grain, high fiber foods, and limit saturated & cholesterol in your diet. (4) Manage Blood Pressure. If you have high blood pressure, you should have a cuff at home so that you can check your blood pressure regularly. Be sure you have a good cuff. An arm one is generally better than a wrist one. Bring the cuff to a doctor's appointment to validate that the measurements that your cuff are taking are accurate. Take your blood pressure twice daily when you are sitting down and relaxing. Record the numbers in a log and bring this log with you to your doctors' appointments. (5) Lose Weight if your BMI is above 25. A healthy BMI is between 19-25. To calculate Your BMI, you may use a Standard BMI Calculator on the NIH BMI website: <www.nhlbi.nih.gov/guidelines/obesity/BMI/bmicalc.htm>. Weigh oneself daily. If you are overweight, set a goal to lose weight. A pound a week loss if needed is a good target. (6) Reduce Blood Sugar. Limit foods and liquids with "added sugars." (Added sugars include sucrose, fructose, glucose, maltose, dextrose, high fructose corn syrup, corn syrup, concentrated fruit juice and honey). (7) Stop Smoking. If you smoke, quitting smoking is one of the best things that you can do for your health. Smoking increases your risk of heart attack, stroke, and peripheral vascular disease, which is a build-up of plaque in your arteries. Please discard all the cigarettes and lighters in your house. Have a plan for what you will do when you have the urge to smoke. Direct and second- hand smoke shortens your life as well as the lives of your family, friends and others around you. For your health and the health of those around you, please consider quitting! Proper Bending Body Mechanics: Maintain a wide stance with one foot slightly in front of the other. Keep your back straight. Bend utilizing the strength in your hips and knees. Do not bend at the waist. Maintain the lifted object at your waist-level close to your body. Avoid lifting weight that causes immediately pain or pain anywhere in the body afterwards. Smoking/Nicotine If there was ever one thing that you could do to increase your overall health, decrease your risk of cardiovascular problems by about 39% the second you make the choice, it is to STOP SMOKING. Your body's most instant gratification is the second you stop smoking. We have all heard the studies, read the articles but it is true, smoking is extremely bad for your overall health, and moreover it is detrimental to your bone health. Nicotine, IN ANY FORM, kills bone cells, prevents your body from healing fractures, and significantly prolongs healing after surgery. In spine surgery specifically, it increases your risk of not healing your bones to create a fusion and increases your risk of having a revision surgery due to this up to 60%. I know it is hard. I know it feels impossible. But there are ways. Take control of your life. We are here to help you through it. And when you are ready, ask us and we can direct you to help if you desire. Use the START Plan to Quit Smoking (please visit the [employer].org website listed below for more information): S = Set a quit date. Choose a date within the next 2 weeks, so you have enough time to prepare without losing your motivation to quit. If you mainly smoke at work, quit on the weekend, so you have a few days to adjust to the change. T = Tell family, friends, and co-workers that you plan to quit. Let your friends and family in on your plan to quit smoking and tell them you need their support and encouragement to stop. Look for a quit blanca who wants to stop smoking as well. You can help each other get through the rough times. A = Anticipate and plan for the challenges you'll face while quitting. Most people who begin smoking again do so within the first 3 months. You can help yourself make it through by preparing ahead for common challenges, such as nicotine withdrawal and cigarette cravings. R = Remove cigarettes and other tobacco products from your home, car, and work. Throw away all your cigarettes (no emergency pack!), lighters, ashtrays, and matches. Wash your clothes and freshen up anything that smells like smoke. Shampoo your car, clean your drapes and carpet, and steam your furniture. T = Talk to your doctor about getting help to quit. Your doctor can prescribe medication to help with withdrawal and suggest other alternatives. If you can't see a doctor, you can get many products over the counter at your local pharmacy or grocery store, including the nicotine patch, nicotine lozenges, and nicotine gum. Resources for Quitting Smoking: <https://www.[facility].gov/documents/[facility]/Quit_Tobacco_Resources_for_patients_313480_7.pdf> Supplementation: Take recommended dosages of Vitamin D and Calcium to help fortify your bones and help them to heal. See your health maintenance packet for dosages and recommended levels. DVT/VTE prophylaxis: You will be given compression stockings from the hospital. Wear these daily for the first two weeks after surgery. You may take them off at night. You may be prescribed a medication to help thin your blood. Take this as directed. If you are not prescribed this medication, early and frequent ambulation has been shown to be the best prophylaxis to deep vein thrombosis and sequelae related to this event. Assessment: Acute on chronic back pain. status post [id number] decompression and fusion; adjacent segment disease L2-L3 with stenosis; lower extremity weakness Procedures: L2-3 posterolateral and interbody fusion with decompression and revision L2 to pelvis decompression and fusion Patient Condition at Discharge: Fair Plan - Discharge Summary Discharge Rx Participant: No New Discharge Prescriptions: New LORazepam 1 mg PO TID 3 Days #9 tab cefaDROXiL [Duricef] 500 mg PO Q12HR 5 Days #10 cap Cyclobenzaprine [Flexeril] 10 mg PO TID #21 tab Sennosides/Docusate Sodium [Senna Plus 8.6-50 mg Softgel] 1 each PO DAILY #20 capsule Continue Gabapentin 1,200 mg PO TID No Action Ketoconazole 2% Cream [Nizoral 2%] 1 applic TOPICAL DAILY Aspirin/Acetaminophen/Caffeine [Excedrin Migraine Caplet] 1 tab PO DAILY PRN PRN Reason: Migraine Headache busPIRone HCL 15 mg PO BID Escitalopram [Lexapro] 20 mg PO DAILY Famotidine 40 mg PO DAILY Fenofibrate [Lofibra] 160 mg PO DAILY Ferrous Sulfate [Iron (65 MG Elemental)] 325 mg PO MOWEFR Ibuprofen [Motrin] 800 mg PO Q8H PRN PRN Reason: Pain Or Fever > 100.5 metFORMIN HCL [Glucophage] 1,000 mg PO BID Ondansetron Odt [Zofran ODT] 4 mg PO TID PRN PRN Reason: Nausea Pravastatin Sodium [Pravachol] 40 mg PO HS QUEtiapine [SEROquel] 200 mg PO HS Lidocaine 5% Patch [Lidoderm 5% Patch] 1 patch TOPICAL DAILY PRN PRN Reason: Pain Lipase/Protease/Amylase [Cory Cheema 24,000 Unit Capsule] 1 cap PO TID-W/MEALS Melatonin 10 mg PO HS Vitamin D(Unknown Dose) 1 tab PO DAILY Aspirin EC [Ecotrin Low Dose] 81 mg PO DAILY Thiamine [Vitamin B-1] 100 mg PO DAILY Magnesium Oxide [Mag-Ox] 400 mg PO DAILY Pantoprazole Sodium [Protonix] 20 mg PO BID QUEtiapine [SEROquel] 100 mg PO HS PRN PRN Reason: upon waking in middle of night Cyclobenzaprine [Flexeril] 10 mg PO TID PRN #15 tab PRN Reason: Muscle Spasm Celecoxib 200 mg PO BID modafiniL [Provigil] 200 mg PO DAILY PRN PRN Reason: wakefulness Prazosin HCl [Minipress] 2 mg PO HS Discharge Medication List Lipase/Protease/Amylase [Cory Cheema 24,000 Unit Capsule] 1 cap PO TID-W/MEALS 12/15/22 [History] Ketoconazole 2% Cream [Nizoral 2%] 1 applic TOPICAL DAILY 12/29/23 [History] Melatonin 10 mg PO HS 12/29/23 [History] Aspirin EC [Ecotrin Low Dose] 81 mg PO DAILY 03/05/24 [History] Aspirin/Acetaminophen/Caffeine [Excedrin Migraine Caplet] 1 tab PO DAILY PRN 03/05/24 [History] Thiamine [Vitamin B-1] 100 mg PO DAILY 03/05/24 [History] Vitamin D(Unknown Dose) 1 tab PO DAILY 03/05/24 [History] Escitalopram [Lexapro] 20 mg PO DAILY 04/02/24 [History] Famotidine 40 mg PO DAILY 04/02/24 [History] Fenofibrate [Lofibra] 160 mg PO DAILY 04/02/24 [History] Ferrous Sulfate [Iron (65 MG Elemental)] 325 mg PO MOWEFR 04/02/24 [History] Ibuprofen [Motrin] 800 mg PO Q8H PRN 04/02/24 [History] Lidocaine 5% Patch [Lidoderm 5% Patch] 1 patch TOPICAL DAILY PRN 04/02/24 [History] Magnesium Oxide [Mag-Ox] 400 mg PO DAILY 04/02/24 [History] Ondansetron Odt [Zofran ODT] 4 mg PO TID PRN 04/02/24 [History] Pantoprazole Sodium [Protonix] 20 mg PO BID 04/02/24 [History] Pravastatin Sodium [Pravachol] 40 mg PO HS 04/02/24 [History] QUEtiapine [SEROquel] 100 mg PO HS PRN 04/02/24 [History] QUEtiapine [SEROquel] 200 mg PO HS 04/02/24 [History] busPIRone HCL 15 mg PO BID 04/02/24 [History] metFORMIN HCL [Glucophage] 1,000 mg PO BID 04/02/24 [History] Cyclobenzaprine [Flexeril] 10 mg PO TID PRN #15 tab 04/22/24 [Rx] Celecoxib 200 mg PO BID 05/01/24 [History] Gabapentin 1,200 mg PO TID 05/01/24 [History] Prazosin HCl [Minipress] 2 mg PO HS 05/01/24 [History] modafiniL [Provigil] 200 mg PO DAILY PRN 05/01/24 [History] Cyclobenzaprine [Flexeril] 10 mg PO TID #21 tab 05/06/24 [Rx] LORazepam 1 mg PO TID 3 Days #9 tab 05/06/24 [Rx] Sennosides/Docusate Sodium [Senna Plus 8.6-50 mg Softgel] 1 each PO DAILY #20 capsule 05/06/24 [Rx] cefaDROXiL [Duricef] 500 mg PO Q12HR 5 Days #10 cap 05/06/24 [Rx] Follow up Appointment(s)/Referral(s): Marlen Mobley MD [Primary Care Provider] - 1-2 days Ulices Landers DO [Doctor of Osteopathic Medicine] - 2 Weeks Activity/Diet/Wound Care/Special Instructions: 1. weight bear as tolerated with walker. 2. keep dressing on until 05/08/2024. Once dressing is removed on 05/08/2024 it is okay to shower directly over incision without dressing on. 3. see rest of ortho-spine discharge instructions below for discharge Spine Discharge and Recovery Instructions Date of Surgery: 05/03/2024 Diagnosis: Acute on chronic back pain. status post [id number] decompression and fusion; adjacent segment disease L2-L3 with stenosis; lower extremity weakness Procedure: L2-3 posterolateral and interbody fusion with decompression and revision L2 to pelvis decompression and fusion Medications: See medication list All medication refills should be obtained through your primary care doctor or your clinic spine surgeon. Please discuss prescription refills at your follow up appointment. Do not call the hospital for medication refills. Dressing: Leave your dressing in place for a total of 5 days post operatively. Then you may remove your dressing and leave open to air. Keep the area clean and if not able to keep area clean, then cover with sterile gauze and tape. Showering: You may shower 3 days after your procedure allowing soap and water to run over incision. Do not scrub. Do not soak. Blot dry. Follow up: Please confirm a follow up appointment with your surgeon 3 weeks post operatively. Please make an appointment to follow up with your PCP in 1-2 weeks after surgery for evaluation '3 phase, 3-week plan' POST OP WEEKS 1-3 1. Lifting/carrying/pushing/pulling limited to less than 5 pounds. 2. Do not sit for longer than 15 minutes at one time. Get up and walk around. Prolonged sitting is NOT advised. If you lay down, see if you can tolerate laying down on you front (belly side) 3. Walk for periods of 15 minutes = 1 mile but no longer; do it multiple times times each day. 4. Ice your low back after activity. POST OP WEEKS 3-6 1. Lifting limited to less than 20 pounds. 2. Do not sit for longer than 30 minutes at a time. Frequently change positions. Use a sit-to stand workstation or take frequent breaks from sitting if you have returned to work. 3. Walk for 30 minutes each day. If possible, do these three or more times a day POST OP WEEKS 6+ At your 6-week appointment we will give you a physical therapy referral to focus on a core stabilization and strengthening program. You should also work on leg & buttock strengthening, hamstring & quadriceps stretching, and continue a low impact aerobic activity program such as swimming, walking, or riding a stationary bicycle. During the initial 6 weeks after your surgery, you are at the highest risk of re-injuring your spine. You should generally avoid BLT's (bending, lifting and twisting combination motions) and follow the above guidelines to reduce the chance of reinjury. You can anticipate post op appointments in our office at approximately 3 weeks and 6 weeks after your surgery. INCISION CARE: If your incision is not draining you do NOT need to cover it with a dressing. Keep your incision clean, dry and intact. In most cases, we apply skin glue, kasi or sutures to the incision at the time of surgery. This will be like a crust or have the appearance of a scab and will fall off in time on its own. The stitches or kasi need to be removed at 3 weeks post op appointment. You may begin to shower 3 days after surgery (this allows the glue to mcmullen well). However, please avoid scrubbing the incision site or peeling off any of the skin glue. This will ensure optimal healing of your incision. Also, during this time avoid soaking the incision area in water - this includes swimming pools, hot tubs or baths. No ointments, lotions or oils on the incision until your surgeon allows. Leave kasi, sutures or glue in place. Neurological dysfunction that comes on suddenly can also be a sign of a stroke. Below some common symptoms of a stroke are listed: B - balance difficulty such as sudden onset walking or leaning to one side - NEW E - eye problem such as sudden double vision or trouble seeing on one side - NEW F - Facial weakness or numbness on one side - NEW A - Arm or leg weakness or numbness on one side - NEW S - Slurred speech or difficulty with word finding - NEW T - Time is BRAIN! Call 911 as soon as you recognize these symptoms Diet: Consume a regular diet rich in vegetables and lean protein such as chicken or fish. You should consume in a ratio of approximately 20% fats|40% carbohydrates|40%protein. Vegetables, sweet potatoes, brown rice or quinoa are examples of good carbohydrates. Chips, white bread, cookies and sweets/sugar ar e examples of bad carbohydrates. Limit your bad carbs, go wild with good carbs. "Life's Simple 7" Guidelines as per [employer] These will help you reclaim your life after surgery and [employer] in your recovery, keeping in mind your restrictions. (1) Get Active. Physical activity can help people lose weight, control high blood pressure and cholesterol, feel emotionally better, and sleep better. (2) Control Cholesterol. Avoid a diet high in saturated fat, trans fat, & cholesterol. Limit whole milk & cream, ice cream, butter, egg yolks, processed meats (like sausage and hot dogs), and fatty meats. Choose healthy foods that are low in saturated fat, trans fat and cholesterol which include: Fruits and vegetables, fiber rich grain products (like whole g rain pasta and brown rice), lean meat such as chicken, fish, nuts, seeds, and legumes. (3) Eat Better. Eat small portions. Shop at the grocery with a list and do not stray from it. Tips for a healthy diet include: Limit sodium intake to less than 1500mg daily, avoid prepackaged, processed, and fast foods, choose a diet rich in fruits, vegetables, and whole grain, high fiber foods, and limit saturated & cholesterol in your diet. (4) Manage Blood Pressure. If you have high blood pressure, you should have a cuff at home so that you can check your blood pressure regularly. Be sure you have a good cuff. An arm one is generally better than a wrist one. Bring the cuff to a doctor's appointment to validate that the measurements that your cuff are taking are accurate. Take your blood pressure twice daily when you are sitting down and relaxing. Record the numbers in a log and bring this log with you to your doctors' appointments. (5) Lose Weight if your BMI is above 25. A healthy BMI is between 19-25. To calculate Your BMI, you may use a Standard BMI Calculator on the NIH BMI website: <www.nhlbi.nih.gov/guidelines/obesity/BMI/bmicalc.htm>. Weigh oneself daily. If you are overweight, set a goal to lose weight. A pound a week loss if needed is a good target. (6) Reduce Blood Sugar. Limit foods and liquids with "added sugars." (Added sugars include sucrose, fructose, glucose, maltose, dextrose, high fructose corn syrup, corn syrup, concentrated fruit juice and honey). (7) Stop Smoking. If you smoke, quitting smoking is one of the best things that you can do for your health. Smoking increases your risk of heart attack, stroke, and peripheral vascular disease, which is a build-up of plaque in your arteries. Please discard all the cigarettes and lighters in your house. Have a plan for what you will do when you have the urge to smoke. Direct and second- hand smoke shortens your life as well as the lives of your family, friends and others around you. For your health and the health of those around you, please consider quitting! Proper Bending Body Mechanics: Maintain a wide stance with one foot slightly in front of the other. Keep your back straight. Bend utilizing the strength in your hips and knees. Do not bend at the waist. Maintain the lifted object at your waist-level close to your body. Avoid lifting weight that causes immediately pain or pain anywhere in the body afterwards. Smoking/Nicotine If there was ever one thing that you could do to increase your overall health, decrease your risk of cardiovascular problems by about 39% the second you make the choice, it is to STOP SMOKING. Your body's most instant gratification is the second you stop smoking. We have all heard the studies, read the articles but it is true, smoking is extremely bad for your overall health, and moreover it is detrimental to your bone health. Nicotine, IN ANY FORM, kills bone cells, prevents your body from healing fractures, and significantly prolongs healing after surgery. In spine surgery specifically, it increases your risk of not healing your bones to create a fusio n and increases your risk of having a revision surgery due to this up to 60%. I know it is hard. I know it feels impossible. But there are ways. Take control of your life. We are here to help you through it. And when you are ready, ask us and we can direct you to help if you desire. Use the START Plan to Quit Smoking (please visit the Helpguide.org website listed below for more information): S = Set a quit date. Choose a date within the next 2 weeks, so you have enough time to prepare without losing your motivation to quit. If you mainly smoke at work, quit on the weekend, so you have a few days to adjust to the change. T = Tell family, friends, and co-workers that you plan to quit. Let your friends and family in on your plan to quit smoking and tell them you need their support and encouragement to stop. Look for a quit blanca who wants to stop smoking as well. You can help each other get through the rough times. A = Anticipate and plan for the challenges you'll face while quitting. Most people who begin smoking again do so within the first 3 months. You can help yourself make it through by preparing ahead for common challenges, such as nicotine withdrawal and cigarette cravings. R = Remove cigarettes and other tobacco products from your home, car, and work. Throw away all your cigarettes (no emergency pack!), lighters, ashtrays, and matches. Wash your clothes and freshen up anything that smells like smoke. Shampoo your car, clean your drapes and carpet, and steam your furniture. T = Talk to your doctor about getting help to quit. Your doctor can prescribe medication to help with withdrawal and suggest other alternatives. If you can't see a doctor, you can get many products over the counter at your local pharmacy or grocery store, including the nicotine patch, nicotine lozenges, and nicotine gum. Resources for Quitting Smoking: <https://www.[place].gov/documents/[facility]/Quit_Tobacco_Resources_for_patients_313 480_7.pdf> Supplementation: Take recommended dosages of Vitamin D and Calcium to help fortify your bones and help them to heal. See your health maintenance packet for dosages and recommended levels. DVT/VTE prophylaxis: You will be given compression stockings from the hospital. Wear these daily for the first two weeks after surgery. You may take them off at night. You may be prescribed a medication to help thin your blood. Take this as directed. If you are not prescribed this medication, early and frequent ambulation has been shown to be the best prophylaxis to deep vein thrombosis and sequelae related to this event. Discharge Disposition: TRANSFER TO SNF/ECF
[2024-05-06 15:16] VITALS: BP 111/71; PULSE 102
[2024-05-06 16:47] LABS: Glucose,Whole Blood 274 mg/dL (70-110)
== END 2024-05-06 17:58 | DRG 451 ==
LOC: EC 14:36 → 6NMEDSUR 17:51 → 4SSUR 05-03 12:48 → OBSVTOIN 05-03 15:36
PROVIDERS: ADMIT Orthopaedic Surgery; ATTEND Orthopaedic Surgery
PROC: 01NB0ZZ Release Lumbar Nerve, Open Approach (ICD-10-PCS; 2024-05-03)
PROC: 00NY0ZZ Release Lumbar Spinal Cord, Open Approach (ICD-10-PCS; 2024-05-03)
PROC: 0SP004Z Removal of Internal Fixation Device from Lumbar Vertebral Joint, Open Approach (ICD-10-PCS; 2024-05-03)
PROC: 0SG00AJ Fusion of Lumbar Vertebral Joint with Interbody Fusion Device, Posterior Approach, Anterior Column, Open Approach (ICD-10-PCS; principal; 2024-05-03 12:00)
DX: M48.062 Spinal stenosis, lumbar region with neurogenic claudication (principal); D62 Acute posthemorrhagic anemia; N17.9 Acute kidney failure, unspecified; M47.16 Other spondylosis with myelopathy, lumbar region; K86.1 Other chronic pancreatitis; K70.30 Alcoholic cirrhosis of liver without ascites; G89.29 Other chronic pain; I12.9 Hypertensive chronic kidney disease with stage 1 through stage 4 chronic kidney disease, or unspecified chronic kidney disease; N18.31 Chronic kidney disease, stage 3a; E78.5 Hyperlipidemia, unspecified; E11.22 Type 2 diabetes mellitus with diabetic chronic kidney disease; D63.1 Anemia in chronic kidney disease; D75.839 Thrombocytosis, unspecified; E11.40 Type 2 diabetes mellitus with diabetic neuropathy, unspecified; G47.00 Insomnia, unspecified; F41.9 Anxiety disorder, unspecified; F31.9 Bipolar disorder, unspecified; F25.9 Schizoaffective disorder, unspecified; K21.9 Gastro-esophageal reflux disease without esophagitis; M54.30 Sciatica, unspecified side; M53.2X6 Spinal instabilities, lumbar region; M43.16 Spondylolisthesis, lumbar region; E87.5 Hyperkalemia; M47.26 Other spondylosis with radiculopathy, lumbar region; Z96.643 Presence of artificial hip joint, bilateral; Z79.82 Long term (current) use of aspirin; Z79.84 Long term (current) use of oral hypoglycemic drugs; Z79.899 Other long term (current) drug therapy; Z88.1 Allergy status to other antibiotic agents; Z88.8 Allergy status to other drugs, medicaments and biological substances
CPT/HCPCS: 36415; 71045; 72100; 80048; 80053; 81003; 83036; 83605; 83735; 83880; 84100; 84484; 85025; 85027; 85610; 85730; 88304; 96361; 96374; 96375; 99285

== ENCOUNTER → 2024-08-05 | Outpatient (CLI) | payer MEDICARE ==
[2024-08-05 08:29] LABS: Appearance,Urine Clear (Clear); Bilirubin,Urine Negative (Negative); Blood,Urine Negative (Negative); Color,Urine Colorless; Glucose,Urine (UA) 4+ (Negative); Ketones,Urine Negative (Negative); Leukocyte Esterase,Urine Negative (Negative); Nitrite,Urine Negative (Negative); PH, Urine 5.5 (5.0-8.0); Protein,Urine Trace (Negative); Specific Gravity,Urine 1.017 (1.001-1.035); Urobilinogen,Urine <2.0 mg/dL (<2.0)
[2024-08-05 09:02] LABS: Creatinine,Urine Random 43.8 mg/dL; Protein/Creatinine Ratio,Urine 0.708
[2024-08-05 12:48] LABS: Basophils # (A) 0.09 X 10*3/uL (0.00-0.10); Basophils % (A) 0.5 %; Eosinophils % (A) 1.2 %; HCT 34.5 % (39.6-50.0); Lymphocytes # (A) 1.69 X 10*3/uL (0.90-5.00); Lymphocytes % (A) 9.9 %; MCH 27.7 pg (27.0-32.0); MCHC 31.9 g/dL (32.0-37.0); MCV 86.9 FL (80.0-97.0); Mean Platelet Volume 10.6 FL (9.5-12.2); Monocytes % (A) 7.6 %; NRBC Per 100 WBC 0 X 10*3/uL (0.00-0.01); Neutrophils # (A) 13.69 X 10*3/uL (1.80-7.70); Neutrophils % (A) 79.9 %; Platelet Count 503 X 10*3/uL (140-440); RBC 3.97 X 10*6/uL (4.40-5.60); RDW 14.1 % (11.5-14.5); WBC 17.12 X 10*3/uL (4.50-10.00)
[2024-08-05 13:17] LABS: ALT 21 U/L (10-49); AST 18 U/L (14-35); Albumin 3.9 g/dL (3.8-4.9); Albumin/Globulin Ratio 1.39 Ratio (1.60-3.17); Alkaline Phosphatase 89 U/L (41-126); BUN/Creat Ratio 13.15 Ratio (12.00-20.00); Blood Urea Nitrogen 17.1 mg/dL (9.0-27.0); Carbon Dioxide 22.9 mmol/L (21.6-31.8); Chloride 101 mmol/L (96-109); Chol/HDL Ratio 3.84 Ratio; Globulin 2.8 g/dL (1.6-3.3); Glucose 211 mg/dL (70-110); LDL Cholesterol,Calculated 85.3 mg/dL (0.0-131.0); Magnesium 1.7 mg/dL (1.5-2.4); PSA Annual Screen 0.705 ng/mL (0.000-4.000); Phosphorus 3.4 mg/dL (2.4-5.1); Sodium 139 mmol/L (135-145); Total Bilirubin 0.3 mg/dL (0.3-1.2); Total Protein 6.7 g/dL (6.2-8.2)
[2024-08-05 13:21] LABS: Urine Creatinine 44.8 mg/dL (39.0-259.0)
== END | disposition home or self-care (01) ==
LOC: LABWHC1 07:19
PROVIDERS: ATTEND Psychiatry & Neurology Psychiatry
DX: Z00.00 Encounter for general adult medical examination without abnormal findings (principal); Z12.5 Encounter for screening for malignant neoplasm of prostate; I10 Essential (primary) hypertension; E78.5 Hyperlipidemia, unspecified; E11.9 Type 2 diabetes mellitus without complications; D64.9 Anemia, unspecified; F33.2 Major depressive disorder, recurrent severe without psychotic features; N39.0 Urinary tract infection, site not specified; R80.9 Proteinuria, unspecified; Z79.899 Other long term (current) drug therapy
CPT/HCPCS: 84439; 82570 ×2; 80061; 80053; 84443; 84156; 82607; 82746; 83735; 84100; 85025; 81003; 82306; 82043; 83036; 36415; G0103

== ENCOUNTER 2024-08-25 13:03 | Inpatient (IN) | payer MEDICARE ==
--- NOTE | 2024-08-25 13:45 | ED ---
General Adult HPI - General Chief complaint: Shortness of Breath Stated complaint: SOB Time Seen by Provider: 08/25/24 13:12 Source: patient, EMS, RN notes reviewed Mode of arrival: EMS Limitations: no limitations - History of Present Illness Initial comments: 59-year-old male presents emergency department complaint of shortness of breath. Patient states been having increasing cough congestion states that he felt like he coughed up some phlegm and some blood noted in it. Patient states that he does have a history of COPD. Patient denies any fever. Patient states that he did have some recent blood work which showed an elevated white count. Patient denies any nausea vomiting diarrhea constipation. Patient states he does have a long history of anxiety, liver kidney issues. - Related Data Home Medications Medication Instructions Recorded Confirmed Lipase/Protease/Amylase [Analiaon Dr 1 cap PO TID-W/MEALS 12/15/22 08/25/24 24,000 Unit Capsule] Escitalopram [Lexapro] 20 mg PO DAILY 04/02/24 08/25/24 Famotidine 40 mg PO HS 04/02/24 08/25/24 Fenofibrate [Lofibra] 160 mg PO DAILY 04/02/24 08/25/24 Ferrous Sulfate [Iron (65 MG 325 mg PO DAILY 04/02/24 08/25/24 Elemental)] Pantoprazole Sodium [Protonix] 20 mg PO BID 04/02/24 08/25/24 Pravastatin Sodium [Pravachol] 40 mg PO HS 04/02/24 08/25/24 busPIRone HCL 15 mg PO BID 04/02/24 08/25/24 metFORMIN HCL [Glucophage] 1,000 mg PO BID 04/02/24 08/25/24 Gabapentin 1,200 mg PO TID 05/01/24 08/25/24 Calcium Carbonate/Vitamin D3 1 tab PO DAILY 08/25/24 08/25/24 [Calcium 600-D3 20 mcg (800 Unit)] Celecoxib [CeleBREX] 200 mg PO BID 08/25/24 08/25/24 Cyclobenzaprine [Flexeril] 10 mg PO Q8H 08/25/24 08/25/24 Deutetrabenazine [Austedo Xr] 6 mg PO DAILY 08/25/24 08/25/24 Empagliflozin [Jardiance] 25 mg PO DAILY 08/25/24 08/25/24 Fluticasone Nasal [place] [Flonase 1 spray EA NOSTRIL DAILY 08/25/24 08/25/24 Nasal [place]] Lidocaine 4% Patch 3 patch TOPICAL DAILY 08/25/24 08/25/24 Magnesium Oxide [Magnesium] 500 mg PO DAILY 08/25/24 08/25/24 Midodrine HCl [ProAmatine] 5 mg PO BID 08/25/24 08/25/24 Multivitamins, Thera [Multivitamin 1 tab PO DAILY 08/25/24 08/25/24 (formulary)] [place]-3/Dha/Epa/Fish Oil [Fish Oil 2 cap PO BID 08/25/24 08/25/24 1,000 mg Softgel] QUEtiapine [SEROquel] 400 mg PO HS 08/25/24 08/25/24 Sennosides [Senokot] 17.2 mg PO HS 08/25/24 08/25/24 Vitamin B Complex 1 cap PO DAILY 08/25/24 08/25/24 glipiZIDE [Glucotrol] 20 mg PO BID 08/25/24 08/25/24 hydrOXYzine pamoate [Vistaril] 50 mg PO TID PRN 08/25/24 08/25/24 oxyCODONE-APAP 5-325MG [Percocet 1 tab PO DAILY 08/25/24 08/25/24 5-325 mg] Allergies Allergy/AdvReac Type Severity Reaction Status Date / Time thimerosal Allergy Severe Rash/Hives/throat Verified 08/25/24 13:57 swelling neomycin Allergy Rash/Hives Verified 08/25/24 13:57 Review of Systems ROS Statement: Those systems with pertinent positive or pertinent negative responses have been documented in the HPI. ROS Other: All systems not noted in ROS Statement are negative. Past Medical History Past Medical History: Diabetes Mellitus, GERD/Reflux, Hyperlipidemia, Hypertension, Liver Disease, Renal Disease Additional Past Medical History / Comment(s): Neuropathy, back pain raditating to legs, Cirrhosis, "kidneys don't always work right." , pancreatitis History of Any Multi-Drug Resistant Organisms: None Reported Past Surgical History: Heart Catheterization, Joint Replacement, Orthopedic Surgery Additional Past Surgical History / Comment(s): Bilateral cataracts removed, bilateral hip replacements, right heal surgery with screws/plates/pins placed, L2-L4 cage fussion Past Anesthesia/Blood Transfusion Reactions: No Reported Reaction Past Psychological History: Anxiety, Bipolar, Depression, PTSD, Schizoaffective Disorder Smoking Status: Vaper Past Alcohol Use History: None Reported Past Drug Use History: None Reported - Past Family History Father Family Medical History: Myocardial Infarction ([place]) Additional Family Medical History / Comment(s): [place] in mid 30's. Mother Family Medical History: Dementia family Additional Family Medical History / Comment(s): Anxiety. General Exam Limitations: no limitations General appearance: alert, in no apparent distress Head exam: Present: atraumatic, normocephalic, normal inspection Eye exam: Present: normal appearance, PERRL, EOMI. Absent: scleral icterus, conjunctival injection, periorbital swelling ENT exam: Present: normal exam, normal oropharynx, mucous membranes moist Neck exam: Present: normal inspection, full ROM. Absent: tenderness, meningismus, lymphadenopathy Respiratory exam: Present: wheezes, rhonchi. Absent: normal lung sounds bilaterally, respiratory distress, rales, stridor Cardiovascular Exam: Present: normal rhythm, tachycardia, normal heart sounds. Absent: systolic murmur, diastolic murmur, rubs, gallop, clicks GI/Abdominal exam: Present: soft, normal bowel sounds. Absent: distended, tenderness, guarding, rebound, rigid Neurological exam: Present: alert Skin exam: Present: warm, dry, intact, normal color. Absent: rash Course Vital Signs 08/25/24 08/25/24 13:04 13:12 Temperature 98.9 F Pulse Rate 115 H Respiratory 20 Rate Blood Pressure 117/69 O2 Sat by Pulse 88 L 92 L Oximetry EKG Findings - EKG Comments: EKG Findings:: EKG performed at 13: 11 sinus tachycardia rate of 114 QRS 124 QRS 102/411 - EKG Results: EKG: interpreted by ERMD Medical Decision Making - Medical Decision Making Was pt. sent in by a medical professional or institution (, JACQUES, [employer] OPERATOR, urgent care, hospital, or half-way...) When possible be specific @ -[No] Did you speak to anyone other than the patient for history (EMS, parent, family, police, friend...)? What history was obtained from this source @ -[No] Did you review nursing and triage notes (agree or disagree)? Why? @ -[I reviewed and agree with nursing and triage notes] Were old charts reviewed (outside hosp., previous admission, EMS record, old EKG, old radiological studies, urgent care reports/EKG's, half-way records)? Report findings @ -[No old charts were reviewed] Differential Diagnosis (chest pain, altered mental status, abdominal pain women, abdominal pain men, vaginal bleeding, weakness, fever, dyspnea, syncope, headache, dizziness, GI bleed, back pain, seizure, CVA, palpatations, mental health, musculoskeletal)? @ -Differential Dyspnea: Coronary syndrome, arrhythmia, tamponade, asthma, COPD, pulmonary embolism, pneumonia, pneumothorax, pulmonary effusion, anaphylaxis, diabetic ketoacidosis, flailed chest, pulmonary contusion, diaphragmatic rupture, anemia, neuromuscular, this is not meant to be an all-inclusive list. EKG interpreted by me (3pts min.). @ -[As above] X-rays interpreted by me (1pt min.). @ -[Chest x-ray shows left lower lobe pneumonia, possible atypical infection CT interpreted by me (1pt min.). @ -[None done] U/S interpreted by me (1pt. min.). @ -[None done] What testing was considered but not performed or refused? (CT, X-rays, U/S, labs)? Why? @ -[None] What meds were considered but not given or refused? Why? @ -[None] Did you discuss the management of the patient with other professionals (professionals i.e. , PA, [employer] OPERATOR, lab, RT, psych nurse, social media specialist, fax machine repairer, teacher, commanding officer traffic division, nurse case management)? Give summary @ -sound for admission Was smoking cessation discussed for >3mins.? @ -[No] Was critical care preformed (if so, how long)? @ -[No] Were there social determinants of health that impacted care today? How? (Homelessness, low income, unemployed, alcoholism, drug addiction, transportation, low edu. Level, literacy, decrease access to med. care, fdc, rehab)? @ -[No] Was there de-escalation of care discussed even if they declined (Discuss DNR or withdrawal of care, Hospice)? DNR status @ -[No] What co-morbidities impacted this encounter? (DM, HTN, Smoking, COPD, CAD, Cancer, CVA, ARF, Chemo, Hep., AIDS, mental health diagnosis, sleep apnea, morbid obesity)? @ -COPD, liver disease, renal disease Was patient admitted / discharged? Hospital course, mention meds given and route, prescriptions, significant lab abnormalities, going to OR and other pertinent info. @ -Admitted patient found to have left lower lobe pneumonia, COPD exacerbation with hypoxia. Patient was given Rocephin, azithromycin. Patient be admitted with pulmonary consult. Undiagnosed new problem with uncertain prognosis? @ -[No] Drug Therapy requiring intensive monitoring for toxicity (Heparin, Nitro, Insulin, Cardizem)? @ -[No] Were any procedures done? @ -[No] Diagnosis/symptom? @ -Pneumonia Acute, or Chronic, or Acute on Chronic? @ -Acute Uncomplicated (without systemic symptoms) or Complicated (systemic symptoms)? @ -Complicated Side effects of treatment? @ -[No] Exacerbation, Progression, or Severe Exacerbation? @ -[No] Poses a threat to life or bodily function? How? (Chest pain, [place], [place], pneumonia, PE, COPD, DKA, ARF, appy, cholecystitis, CVA, Diverticulitis, Homicidal, Suicidal, threat to staff... and all critical care pts) @ -Yes pneumonia, respiratory failure, hypoxia Disposition Clinical Impression: Pneumonia, COPD exacerbation, Hypoxia Disposition: ADMITTED IP TO THIS [facility] Condition: Poor Referrals: None,Stated [Primary Care Provider] - 1-2 days Time of Disposition: 14:56
--- NOTE | 2024-08-25 14:13 | XR ---
EXAMINATION TYPE: XR chest 2V DATE OF EXAM: 08/25/2024 CLINICAL INDICATION: Male, 59 years old with history of difficulty breathing, TECHNIQUE: Frontal and lateral views of the chest are obtained. COMPARISON: Chest x-ray May 05, 2024 FINDINGS: There is increased markings throughout the left lung greatest in the left lower lung. Rig ht lung is clear. The cardiac silhouette size remains within normal limits. The osseous structures are intact. IMPRESSION: New diffuse left lung acute infiltrates and/or edema. More prominent left lower lung acut e pneumonic infiltrate with air bronchograms. [facility], , 08/25/2024 2:11 PM
[2024-08-25 15:09] LABS: Influenza A Not Detected (Not Detectd); Influenza B Not Detected (Not Detectd); RSV Not Detected (Not Detectd)
[2024-08-25 15:14] LABS: ALT 79 U/L (4-49); AST 60 U/L (17-59); African American GFR (CKD) >90 (>60 ml/min/1.73 sqM); Albumin 3.5 g/dL (3.5-5.0); Alkaline Phosphatase 176 U/L (38-126); Anion Gap 20 mmol/L; Blood Urea Nitrogen 23 mg/dL (9-20); Calcium 9.3 mg/dL (8.4-10.2); Carbon Dioxide 20 mmol/L (22-30); Chloride 87 mmol/L (98-107); Glucose 174 mg/dL (74-99); Magnesium 2.1 mg/dL (1.6-2.3); Non-African American GFR(CKD) 82 (>60 ml/min/1.73 sqM); Potassium 4.8 mmol/L (3.5-5.1); Sodium 127 mmol/L (137-145); Total Bilirubin 0.7 mg/dL (0.2-1.3); Total Protein 6.7 g/dL (6.3-8.2)
[2024-08-25 15:23] LABS: INR 1.2 (<1.2); NT-Pro-B-Type Natriuretic Pept 486 pg/mL; Partial Thromboplastin Time 24.1 sec (22.0-30.0); Prothrombin Time 12.4 sec (10.0-12.5)
[2024-08-25] MEDS: IPRATROPIUM-ALBUTEROL 3 ML NEB INHALATION STA (15:25)
[2024-08-25 15:29] LABS: Basophils # (A) 0.1 k/uL (0-0.2); Basophils % (A) 0 %; Eosinophils # (A) 0.1 k/uL (0-0.7); Eosinophils % (A) 1 %; HCT 31.1 % (39.0-53.0); HGB 9.8 gm/dL (13.0-17.5); Hypochromasia Slight; Lymphocytes # (A) 1.3 k/uL (1.0-4.8); Lymphocytes % (A) 6 %; MCH 26.2 pg (25.0-35.0); MCHC 31.7 g/dL (31.0-37.0); MCV 82.7 fL (80.0-100.0); Mean Platelet Volume 7.1; Monocytes % (A) 4 %; Neutrophils # (A) 19.8 k/uL (1.3-7.7); Neutrophils % (A) 87 %; RBC 3.76 m/uL (4.30-5.90); RDW 14.5 % (11.5-15.5); WBC 22.7 k/uL (3.8-10.6)
[2024-08-25] MEDS ORDERED: IPRATROPIUM-ALBUTEROL 3 ML NEB INHALATION PRN (15:34)
[2024-08-25] MEDS ORDERED: ACETAMINOPHEN TAB 325 MG TAB PO PRN (15:34)
[2024-08-25] MEDS ORDERED: PNEUMONIA PROTOCOL UTILIZED 1 EACH MISC PO PRN (15:34)
[2024-08-25 15:35] LABS: Platelet Count 1173 k/uL (150-450)
[2024-08-25] MEDS: SODIUM CHLORIDE 0.9% 1,000 ML IV SCH (15:58)
[2024-08-25] MEDS: LORazepam 1 MG TAB PO STA (15:58)
[2024-08-25] MEDS: AZITHROMYCIN 500 MG in SODIUM CHLORIDE 0.9% 250 ML IVPB STA (15:59)
--- NOTE | 2024-08-25 17:48 | P.HPIM ---
History of Present Illness H&P Date: 08/25/24 History of present illness; 59-year-old male with PMH of, pancreatitis secondary to alcohol abuse (sober for 22 months now), tardive dyskinesia, chronic low back pain with multiple surgeries (most recently being last year). Presents emergency department with worsening shortness of breath, cough, and overall feeling of being unwell. He states that he felt he had a chest cold approximately 2 weeks ago which had been getting better, however over the past 3 days he has noticed it progressively getting worse. He has noted a worsening cough, the presence of hemoptysis on 2 occasions a couple of days ago however nothing since. Additionally, he notes that he has not been taking his medications as regularly as he normally does due to feeling so poorly. He also notes having had a history of previous episodes of bladder retention, mostly associated with a previous back surgery, however states no difficulties or changes in urination at this time. He does not utilize oxygen at home, however is currently utilizing 5 L via nasal cannula and saturating high 90%. Labratory review: -WBCs 22.7, hemoglobin 9.8, hematocrit 31.1, platelet 1173; sodium 127, potassium 4.8, chloride 87, bicarb 20, anion gap 20, BUN 23, creatinine 0.99, lactic acid 1.5, calcium 9.3, magnesium 2.1, total bilirubin 0.7, AST 60, ALT 79, alkaline phosphatase 176, troponin <0.012, proBNP 486 -Respiratory viral panel all negative Imaging: -Chest x-ray done in the ER independently read and reviewed showed new diffuse left lung acute infiltrates and/or edema; more prominent left lower lung -EKG done in the ER showed heart rate of 114, sinus tachycardia, no ST segment elevation or depression seen, no T-wave inversions seen. Vitals: Afebrile, blood pressure 110/82, heart rate 116, respiratory rate 20, SpO2 92% on 5 L nasal cannula Patient admitted to internal medicine service REVIEW OF SYSTEMS: Pertinent positives and negatives noted in HPI. The rest of the 14-point review of systems is negative. Physical Exam: General: nontoxic, no distress, appears at stated age; currently on 5 L nasal cannula Derm: warm, dry, intact Head: atraumatic, normocephalic, symmetric Eyes: EOMI, anicteric sclera Mouth: no lip lesion, mucus membranes moist Cardiovascular: S1 S2 reg, no murmur, rubs, or gallops Lungs: CTA bilateral, no rales, no accessory muscle use Abdominal: soft, non-tender to palpataion, no appreciable organomegaly, with some distention noted Extremities: no gross muscle atrophy, no edema, no contractures Neuro: Alert, Oriented, CNII-XII grossly intact, gait normal; resting tremor which she attributes to tardive dyskinesia Psych: well appearing, appropriate affect Assessment and plan 59-year-old male with PMH of pancreatitis secondary alcohol abuse (sober for 20 months now, tardive dyskinesia, chronic low back pain with multiple surgeries (most recently being last year). Presented to the emergency department after having what he thought was a chest cold for approximately 2 weeks which had improved, however worsened over the last 3 days. With a worsening cough and shortness of breath. #Sepsis #Acute hypoxic respiratory failure, secondary to likely community acquired pneumonia #Thrombocytosis, likely reactive to above #Hypovolemic hyponatremia #Elevated anion gap metabolic acidosis #Transaminitis, secondary to above -Chest x-ray independently read and interpreted -Initiate LR bolus of 2,000 cc -Recheck BMP later tonight, following LR bolus to monitor hyponatremia -Continue with Rocephin 2 g every 24 hours, received 1 dose in the ED -Continue with Zithromax 500 mg daily for 2 more doses -Blood culture ordered, currently pending -Sputum culture ordered, currently pending -Legionella antigen ordered, currently pending -Procalcitonin ordered, currently pending #Normocytic anemia -Continue to monitor CBC -Not currently bleeding -Transfuse if Hgb <7 #Tardive dyskinesia -Continue home [place] XR Chronic: Chronic pancreatitis secondary to call dependence Significant psychiatric history Chronic low back pain with multiple surgeries Hypotension on midodrine GERD GI prophylaxis: Famotidine & Protinix DVT prophylaxis: Heparin 5,000 units subcu twice daily The patient is admitted with an anticipated more than than 2 midnight stay for evaluation of community-acquired pneumonia CODE STATUS: Full code Discussed with: Patient Anticipated discharge place: Pending clinical course Dictation was produced using gamigo dictation software. please excuse any grammatical, word or spelling errors. Sandeep Reid MD PGY-1 IM I have seen and evaluated the patient today. Discussed with the resident and agree with the residents finding and plan as documented in the resident's note. Changes highlighted in blue font. Past Medical History Past Medical History: Diabetes Mellitus, GERD/Reflux, Hyperlipidemia, Hyperten kassandra, Liver Disease, Renal Disease Additional Past Medical History / Comment(s): Neuropathy, back pain raditating to legs, Cirrhosis, "kidneys don't always work right." , pancreatitis History of Any Multi-Drug Resistant Organisms: None Reported Past Surgical History: Heart Catheterization, Joint Replacement, Orthopedic Giancarlo mendy Additional Past Surgical History / Comment(s): Bilateral cataracts removed, bilateral hip replacements, right heal surgery with screws/plates/pins placed, L2-L4 cage fussion Past Anesthesia/Blood Transfusion Reactions: No Reported Reaction Past Psychological History: Anxiety, Bipolar, Depression, PTSD, Schizoaffective Disorder Smoking Status: Vaper Past Alcohol Use History: None Reported Past Drug Use History: None Reported - Past Family History Father Family Medical History: Myocardial Infarction ([place]) Additional Family Medical History / Comment(s): [place] in mid 30s. Mother Family Medical History: Dementia family Additional Family Medical History / Comment(s): Anxiety. Medications and Allergies Home Medications Medication Instructions Recorded Confirmed Type Lipase/Protease/Amylase [[place] Dr 1 cap PO TID-W/MEALS 12/15/22 08/25/24 History 24,000 Unit Capsule] Escitalopram [Lexapro] 20 mg PO DAILY 04/02/24 08/25/24 History Famotidine 40 mg PO HS 04/02/24 08/25/24 History Fenofibrate [Lofibra] 160 mg PO DAILY 04/02/24 08/25/24 History Ferrous Sulfate [Iron (65 MG 325 mg PO DAILY 04/02/24 08/25/24 History Elemental)] Pantoprazole Sodium [Protonix] 20 mg PO BID 04/02/24 08/25/24 History Pravastatin Sodium [Pravachol] 40 mg PO HS 04/02/24 08/25/24 History busPIRone HCL 15 mg PO BID 04/02/24 08/25/24 History metFORMIN HCL [Glucophage] 1,000 mg PO BID 04/02/24 08/25/24 History Gabapentin 1,200 mg PO TID 05/01/24 08/25/24 History Calcium Carbonate/Vitamin D3 1 tab PO DAILY 08/25/24 08/25/24 History [Calcium 600-D3 20 mcg (800 Unit)] Celecoxib [CeleBREX] 200 mg PO BID 08/25/24 08/25/24 History Cyclobenzaprine [Flexeril] 10 mg PO Q8H 08/25/24 08/25/24 History Deutetrabenazine [Austedo Xr] 6 mg PO DAILY 08/25/24 08/25/24 History Empagliflozin [Jardiance] 25 mg PO DAILY 08/25/24 08/25/24 History Fluticasone Nasal [place] [Flonase 1 spray EA NOSTRIL DAILY 08/25/24 08/25/24 History Nasal [place]] Lidocaine 4% Patch 3 patch TOPICAL DAILY 08/25/24 08/25/24 History Magnesium Oxide [Magnesium] 500 mg PO DAILY 08/25/24 08/25/24 History Midodrine HCl [ProAmatine] 5 mg PO BID 08/25/24 08/25/24 History Multivitamins, Thera [Multivitamin 1 tab PO DAILY 08/25/24 08/25/24 History (formulary)] [place]-3/Dha/Epa/Fish Oil [Fish Oil 2 cap PO BID 08/25/24 08/25/24 History 1,000 mg Softgel] QUEtiapine [SEROquel] 400 mg PO HS 08/25/24 08/25/24 History Sennosides [Senokot] 17.2 mg PO HS 08/25/24 08/25/24 History Vitamin B Complex 1 cap PO DAILY 08/25/24 08/25/24 History glipiZIDE [Glucotrol] 20 mg PO BID 08/25/24 08/25/24 History hydrOXYzine pamoate [Vistaril] 50 mg PO TID PRN 08/25/24 08/25/24 History oxyCODONE-APAP 5-325MG [Percocet 1 tab PO DAILY 08/25/24 08/25/24 History 5-325 mg] Allergies Allergy/AdvReac Type Severity Reaction Status Date / Time thimerosal Allergy Severe Rash/Hives/throat Verified 08/25/24 13:57 swelling neomycin Allergy Rash/Hives Verified 08/25/24 13:57 Physical Exam Vitals: Vital Signs Temp Pulse Resp BP Pulse Ox 08/25/24 16:00 116 H 20 110/82 92 L 08/25/24 15:39 112 H 08/25/24 15:25 110 H 08/25/24 14:59 112 H 18 113/103 96 08/25/24 14:15 116 H 20 104/66 99 08/25/24 13:12 92 L 08/25/24 13:04 98.9 F 115 H 20 117/69 88 L Intake and Output 08/25/24 08/25/24 08/25/24 06:59 14:59 22:59 Other: Weight 70.307 kg Results CBC & Chem 7: 08/25/24 14:51 08/25/24 14:51 Labs: Abnormal Lab Results - Last 24 Hours (Table) 08/25/24 08/25/24 08/25/24 Range/Units 14:51 14:51 14:51 WBC 22.7 H (3.8-10.6) k/uL RBC 3.76 L (4.30-5.90) m/uL Hgb 9.8 L (13.0-17.5) gm/dL Hct 31.1 L (39.0-53.0) % Plt Count 1173 H* (150-450) k/uL Neutrophils # 19.8 H (1.3-7.7) k/uL INR 1.2 H (<1.2) Sodium 127 L (137-145) mmol/L Chloride 87 L (98-107) mmol/L Carbon Dioxide 20 L (22-30) mmol/L BUN 23 H (9-20) mg/dL Glucose 174 H (74-99) mg/dL AST 60 H (17-59) U/L ALT 79 H (4-49) U/L Alkaline Phosphatase 176 H (38-126) U/L
[2024-08-25] MEDS: LACTATED RINGERS 1,000 ML IV SCH (17:54)
[2024-08-25 20:41] LABS: Glucose,Whole Blood 231 mg/dL (70-110)
[2024-08-25] MEDS: LIPASE 20,000/PROTEASE 63,000/AMYLASE 84,000 PO SCH (21:52)
[2024-08-25] MEDS: GABAPENTIN 400 MG CAP PO SCH (22:04)
[2024-08-25] MEDS: PANTOPRAZOLE 40 MG TABLET PO SCH (22:04)
[2024-08-25] MEDS: FAMOTIDINE 20 MG TAB PO SCH (22:04)
[2024-08-25] MEDS: MIDODRINE 5 MG TAB PO SCH (22:04)
[2024-08-25] MEDS: busPIRone HCl 5 MG TAB PO SCH (22:04)
[2024-08-25] MEDS: SENNOSIDES 8.6 MG TAB PO SCH (22:04)
[2024-08-25] MEDS: PRAVASTATIN SODIUM 40 MG TAB PO SCH (22:05)
[2024-08-25] MEDS: QUEtiapine 400 MG TAB PO SCH (22:05)
[2024-08-25] MEDS: HEPARIN SODIUM,PORCINE 5,000 UNIT/ML 1 ML VIAL SQ SCH (22:05)
[2024-08-26 00:33] LABS: African American GFR (CKD) >90 (>60 ml/min/1.73 sqM); Anion Gap 15 mmol/L; Blood Urea Nitrogen 21 mg/dL (9-20); Carbon Dioxide 21 mmol/L (22-30); Chloride 91 mmol/L (98-107); Glucose 183 mg/dL (74-99); Non-African American GFR(CKD) 89 (>60 ml/min/1.73 sqM); Potassium 4.7 mmol/L (3.5-5.1); Sodium 127 mmol/L (137-145)
[2024-08-26 04:36] LABS: ALT 90 U/L (4-49); AST 106 U/L (17-59); African American GFR (CKD) >90 (>60 ml/min/1.73 sqM); Alkaline Phosphatase 154 U/L (38-126); Anion Gap 14 mmol/L; Blood Urea Nitrogen 21 mg/dL (9-20); Carbon Dioxide 22 mmol/L (22-30); Chloride 93 mmol/L (98-107); Glucose 198 mg/dL (74-99); Non-African American GFR(CKD) >90 (>60 ml/min/1.73 sqM); Sodium 129 mmol/L (137-145); Total Bilirubin 0.5 mg/dL (0.2-1.3)
[2024-08-26 05:18] LABS: Basophils # (A) 0.1 k/uL (0-0.2); Basophils % (A) 1 %; Eosinophils # (A) 0.2 k/uL (0-0.7); Eosinophils % (A) 1 %; HCT 30.7 % (39.0-53.0); HGB 9.2 gm/dL (13.0-17.5); Hypochromasia Slight; Lymphocytes # (A) 1.4 k/uL (1.0-4.8); Lymphocytes % (A) 7 %; MCH 25.7 pg (25.0-35.0); MCHC 29.9 g/dL (31.0-37.0); MCV 85.8 fL (80.0-100.0); Monocytes # (A) 0.8 k/uL (0-1.0); Monocytes % (A) 4 %; Neutrophils # (A) 15.2 k/uL (1.3-7.7); Neutrophils % (A) 84 %; Platelet Count 960 k/uL (150-450); RBC 3.58 m/uL (4.30-5.90); RDW 14.5 % (11.5-15.5); WBC 18.2 k/uL (3.8-10.6)
[2024-08-26 06:23] LABS: Glucose,Whole Blood 297 mg/dL (70-110)
[2024-08-26] MEDS ORDERED: DEXTROSE 50% SYRINGE 50 ML IVP PRN ×2 (06:51)
--- NOTE | 2024-08-26 07:12 | XR ---
EXAMINATION TYPE: XR chest 1V portable DATE OF EXAM: 08/26/2024 CLINICAL INDICATION: Male, 59 years old with history of pneumonia, progress study. TECHNIQUE: Single AP portable upright view of the chest is obtained. COMPARISON: Chest x-ray from one day earlier and older studies. FINDINGS: There is increased opacity throughout the left lung greatest in the left lower lung. Righ t lung remains clear. The cardiac silhouette size remains within normal limits. The osseous structu res are intact. IMPRESSION: Persistent diffuse left lung acute infiltrates and/or edema most prominent inferiorly. [facility], , 08/26/2024 7:09 AM
[2024-08-26] MEDS: oxyCODONE-APAP 5-325MG 1 EACH TAB PO SCH (08:02)
[2024-08-26] MEDS: FENOFIBRATE 160 MG TAB PO SCH (08:03)
[2024-08-26] MEDS: ESCITALOPRAM 20 MG TAB PO SCH (08:03)
[2024-08-26] MEDS: INSULIN LISPRO (HumaLOG) 100 UNIT/ML 10 mL VL SQ SCH (08:04)
[2024-08-26] MEDS: DEUTETRABENAZINE 6 MG PO SCH (08:25)
[2024-08-26] MEDS: MULTIVITAMINS, THERA 1 EACH TAB PO SCH (08:28)
[2024-08-26] MEDS ORDERED: NON FORMULARY DRUG (Vitamin B Complex [Vitamin B Complex] 1 EACH Capsule) PO SCH (09:00)
[2024-08-26] MEDS: SODIUM CHLORIDE 0.9% 1,000 ML IV SCH (09:38)
--- NOTE | 2024-08-26 10:51 | P.PN ---
Subjective Progress Note Date: 08/26/24 59-year-old male with PMH of, pancreatitis secondary to alcohol abuse (sober for 22 months now), tardive dyskinesia, chronic low back pain with multiple surgeries (most recently being last year). Presents emergency department with worsening shortness of breath, cough, and overall feeling of being unwell. He states that he felt he had a chest cold approximately 2 weeks ago which had been getting better, however over the past 3 days he has noticed it progressively getting worse. He has noted a worsening cough, the presence of hemoptysis on 2 occasions a couple of days ago however nothing since. Additionally, he notes that he has not been taking his medications as regularly as he normally does due to feeling so poorly. He also notes having had a history of previous episodes of bladder retention, mostly associated with a previous back surgery, however states no difficulties or changes in urination at this time. He does not utilize oxygen at home, however is currently utilizing 5 L via nasal cannula and saturating high 90%. 08/26 - He is seen and examined at bedside this morning, now on the fourth floor. Procalcitonin shown to be 0.38, as a result we will continue with antibiotics. REVIEW OF SYSTEMS: Pertinent positives and negatives noted in HPI. Physical Exam: General: nontoxic, no distress, appears at stated age; currently on 5 L nasal cannula Derm: warm, dry, intact Head: atraumatic, normocephalic, symmetric Eyes: EOMI, anicteric sclera Mouth: no lip lesion, mucus membranes moist Cardiovascular: S1 S2 reg, no murmur, rubs, or gallops Lungs: Diminished breath sounds in the left lower lobe Abdominal: soft, non-tender to palpataion, no appreciable organomegaly, with some distention noted Extremities: no gross muscle atrophy, no edema, no contractures Neuro: Alert, Oriented, CNII-XII grossly intact, gait normal; resting tremor which she attributes to tardive dyskinesia Psych: well appearing, appropriate affect Data Received Today: Labs: WBCs 18.2, hemoglobin 9.2, hematocrit 30.7, platelet 960; sodium 129, potassium 5.0, chloride 93, bicarb 22, anion gap 14, BUN 21, creatinine 0.83, AST 106, ALT 90, alkaline phosphatase 154 Imagining: Chest x-ray independently interpreted today showed persistent diffuse left lung infiltrates most prominent inferiorly Assessment and plan 59-year-old male with PMH of pancreatitis secondary alcohol abuse (sober for 20 months now, tardive dyskinesia, chronic low back pain with multiple surgeries (most recently being last year). Presented to the emergency department after having what he thought was a chest cold for approximately 2 weeks which had improved, however worsened over the last 3 days. With a worsening cough and shortness of breath. #Sepsis #Acute hypoxic respiratory failure, secondary to likely community acquired pneumonia #Thrombocytosis, likely reactive to above, improving #Hypovolemic hyponatremia, improving #Elevated anion gap metabolic acidosis, improving #Transaminitis, secondary to above -Chest x-ray independently read and interpreted -Received 2 L LR bolus yesterday -Recheck BMP later tonight, following LR bolus to monitor hyponatremia -Continue with Rocephin 2 g every 24 hours (day 2 today) for total of 5 doses -Continue with Zithromax 500 mg daily (day 2 today) for total of 3 doses -Blood culture ordered, currently pending -Sputum culture ordered, currently pending -Legionella antigen negative -Procalcitonin 0.38, will continue with antibiotics -Initiated on NS at 130 cc/h, sodium this morning 129 -Liver ultrasound ordered, currently pending -Hepatitis panel ordered, currently pending -Continue to wean oxygen as tolerated #Normocytic anemia -Continue to monitor CBC -Not currently bleeding -Transfuse if Hgb <7 #Tardive dyskinesia -Continue home [place] XR #Wlm-[id number] type 2 diabetes mellitus -Accu-Cheks -Sliding scale initiated -Hemoglobin A1c pending -Monitor for hypoglycemia Chronic: #Chronic pancreatitis secondary to alcohol dependence #Significant psychiatric history #Chronic low back pain with multiple surgeries #Hypertension on midodrine #GERD DVT ppx: Heparin 5000 units subcu twice daily GI PPx: Famotidine and Protonix Code status: Full code F: NS at 130 cc/h E: Replete as needed N: Heart healthy diet with carb consistent A: Ambulatory Anticipated discharge place: Pending clinical course Anticipated discharge time: Pending clinical course Dictation was produced using [employer] dictation software. please excuse any grammatical, word or spelling errors. Sandeep Reid MD PGY-1 IM I have seen and evaluated the patient today. Discussed with the resident and agree with the residents finding and plan as documented in the resident's note. Changes highlighted in blue font. Objective - Vital Signs Vital signs: Vital Signs Temp 98.3 F 08/26/24 01:52 Pulse 106 H 08/26/24 01:52 Resp 17 08/26/24 01:52 BP 99/51 08/26/24 01:52 Pulse Ox 93 L 08/26/24 01:52 FiO2 Intake & Output 08/25/24 08/26/24 08/26/24 18:59 06:59 18:59 Weight 70.307 kg Other: Voiding Method Urinal # Voids 1 - Labs CBC & Chem 7: 08/26/24 03:33 08/26/24 03:33 Labs: Abnormal Lab Results - Last 24 Hours (Table) 08/25/24 08/25/24 08/25/24 Range/Units 14:51 14:51 14:51 WBC 22.7 H (3.8-10.6) k/uL RBC 3.76 L (4.30-5.90) m/uL Hgb 9.8 L (13.0-17.5) gm/dL Hct 31.1 L (39.0-53.0) % MCHC (31.0-37.0) g/dL Plt Count 1173 H* (150-450) k/uL Neutrophils # 19.8 H (1.3-7.7) k/uL INR 1.2 H (<1.2) Sodium 127 L (137-145) mmol/L Chloride 87 L (98-107) mmol/L Carbon Dioxide 20 L (22-30) mmol/L BUN 23 H (9-20) mg/dL Glucose 174 H (74-99) mg/dL POC Glucose (mg/dL) (70-110) mg/dL AST 60 H (17-59) U/L ALT 79 H (4-49) U/L Alkaline Phosphatase 176 H (38-126) U/L Total Protein (6.3-8.2) g/dL Albumin (3.5-5.0) g/dL 08/25/24 08/25/24 08/26/24 Range/Units 20:40 23:55 03:33 WBC 18.2 H (3.8-10.6) k/uL RBC 3.58 L (4.30-5.90) m/uL Hgb 9.2 L (13.0-17.5) gm/dL Hct 30.7 L (39.0-53.0) % MCHC 29.9 L (31.0-37.0) g/dL Plt Count 960 H (150-450) k/uL Neutrophils # 15.2 H (1.3-7.7) k/uL INR (<1.2) Sodium 127 L (137-145) mmol/L Chloride 91 L (98-107) mmol/L Carbon Dioxide 21 L (22-30) mmol/L BUN 21 H (9-20) mg/dL Glucose 183 H (74-99) mg/dL POC Glucose (mg/dL) 231 H (70-110) mg/dL AST (17-59) U/L ALT (4-49) U/L Alkaline Phosphatase (38-126) U/L Total Protein (6.3-8.2) g/dL Albumin (3.5-5.0) g/dL 08/26/24 08/26/24 Range/Units 03:33 06:22 WBC (3.8-10.6) k/uL RBC (4.30-5.90) m/uL Hgb (13.0-17.5) gm/dL Hct (39.0-53.0) % MCHC (31.0-37.0) g/dL Plt Count (150-450) k/uL Neutrophils # (1.3-7.7) k/uL INR (<1.2) Sodium 129 L (137-145) mmol/L Chloride 93 L (98-107) mmol/L Carbon Dioxide (22-30) mmol/L BUN 21 H (9-20) mg/dL Glucose 198 H (74-99) mg/dL POC Glucose (mg/dL) 297 H (70-110) mg/dL AST 106 H (17-59) U/L ALT 90 H (4-49) U/L Alkaline Phosphatase 154 H (38-126) U/L Total Protein 6.0 L (6.3-8.2) g/dL Albumin 3.0 L (3.5-5.0) g/dL
[2024-08-26 11:22] LABS: Glucose,Whole Blood 277 mg/dL (70-110)
[2024-08-26] MEDS: LORazepam 1 MG TAB PO PRN (11:47)
--- NOTE | 2024-08-26 14:30 | US ---
EXAMINATION TYPE: US liver DATE OF EXAM: 08/26/2024 COMPARISON: CT March 28, 2020 CLINICAL INDICATION: Male, 59 years old with history of transaminitis; abn labs, h/o cirrhosis, no sy mptoms today TECHNIQUE: Grayscale and color Doppler imaging of the right upper quadrant was performed. FINDINGS: EXAM MEASUREMENTS: Liver Length: 19.1 cm Gallbladder Wall: 0.2 cm CBD: 1.0 cm Right Kidney: 10.4 x 5.4 x 5.9 cm Pancreas: prominent duct = 0.5cm Liver: Increased attenuation Gallbladder: mild dependant sludge Evidence for sonographic Lunsford's sign: no CBD: dilated with no obvious obstruction Right Kidney: wnl Mild hepatomegaly is present. Visualized liver is heterogeneously hyperechoic. Evaluation for focal m asses suboptimal due to the heterogeneity. There is new mild extrahepatic dilatation. Gallbladder has distended margins. New mild pancreatic ductal dilatation. IMPRESSION: There is new biliary and pancreatic ductal dilatation. Obstructing CBD stone or lesion needs to be co nsidered. Further investigation with ERCP or MRCP follow-up is advised. [facility], , 08/26/2024 2:27 PM
[2024-08-26 15:27] LABS: African American GFR (CKD) >90 (>60 ml/min/1.73 sqM); Anion Gap 11 mmol/L; Blood Urea Nitrogen 21 mg/dL (9-20); Carbon Dioxide 25 mmol/L (22-30); Chloride 94 mmol/L (98-107); Glucose 200 mg/dL (74-99); Non-African American GFR(CKD) >90 (>60 ml/min/1.73 sqM); Potassium 4.7 mmol/L (3.5-5.1); Sodium 130 mmol/L (137-145)
[2024-08-26 16:48] LABS: Glucose,Whole Blood 483 mg/dL (70-110)
[2024-08-26] MEDS: AZITHROMYCIN 500 MG in SODIUM CHLORIDE 0.9% 250 ML IVPB SCH (18:48)
[2024-08-26 18:52] LABS: Hepatitis B Core IgM Nonreactive (Nonreactive); Hepatitis B Surface Antigen Nonreactive (Nonreactive); Hepatitis C IgG Antibody Nonreactive (Nonreactive)
[2024-08-26 20:38] LABS: Glucose,Whole Blood 231 mg/dL (70-110)
[2024-08-27 04:37] LABS: Basophils # (A) 0.1 k/uL (0-0.2); Basophils % (A) 1 %; Eosinophils # (A) 0.4 k/uL (0-0.7); Eosinophils % (A) 2 %; HCT 30.1 % (39.0-53.0); HGB 9.6 gm/dL (13.0-17.5); Hypochromasia Slight; Lymphocytes # (A) 2.1 k/uL (1.0-4.8); Lymphocytes % (A) 11 %; MCH 26.3 pg (25.0-35.0); MCHC 31.8 g/dL (31.0-37.0); MCV 82.7 fL (80.0-100.0); Monocytes # (A) 1.2 k/uL (0-1.0); Monocytes % (A) 6 %; Neutrophils % (A) 79 %; Platelet Count 981 k/uL (150-450); RBC 3.63 m/uL (4.30-5.90); RDW 14.4 % (11.5-15.5); WBC 20.3 k/uL (3.8-10.6)
[2024-08-27 04:53] LABS: ALT 110 U/L (4-49); African American GFR (CKD) >90 (>60 ml/min/1.73 sqM); Albumin/Globulin Ratio 0.9; Anion Gap 12 mmol/L; Blood Urea Nitrogen 21 mg/dL (9-20); Calcium 8.8 mg/dL (8.4-10.2); Carbon Dioxide 23 mmol/L (22-30); Chloride 98 mmol/L (98-107); Globulin 3.1 g/dL; Glucose 238 mg/dL (74-99); Non-African American GFR(CKD) >90 (>60 ml/min/1.73 sqM); Sodium 133 mmol/L (137-145); Total Bilirubin 0.7 mg/dL (0.2-1.3)
[2024-08-27 04:57] LABS: Albumin 2.8 g/dL (3.5-5.0); Potassium 5.5 mmol/L (3.5-5.1); Total Protein 5.9 g/dL (6.3-8.2)
[2024-08-27 04:58] LABS: AST 115 U/L (17-59); Alkaline Phosphatase 134 U/L (38-126)
[2024-08-27 06:03] LABS: Glucose,Whole Blood 230 mg/dL (70-110)
[2024-08-27 10:37] LABS: Glucose,Whole Blood 302 mg/dL (70-110)
[2024-08-27] MEDS: INSULIN GLARGINE (LANTUS) 100 UNIT/ML SYR SQ STA (10:45)
[2024-08-27] MEDS: metroNIDAZOLE-NS PMX 500 MG in SALINE 1 100ML.BAG IVPB SCH (11:34)
[2024-08-27 11:39] LABS: Glucose,Whole Blood 326 mg/dL (70-110)
--- NOTE | 2024-08-27 11:47 | P.PN ---
Subjective Progress Note Date: 08/27/24 59-year-old male with PMH of, pancreatitis secondary to alcohol abuse (sober for 22 months now), tardive dyskinesia, chronic low back pain with multiple surgeries (most recently being last year). Presents emergency department with worsening shortness of breath, cough, and overall feeling of being unwell. He states that he felt he had a chest cold approximately 2 weeks ago which had been getting better, however over the past 3 days he has noticed it progressively getting worse. He has noted a worsening cough, the presence of hemoptysis on 2 occasions a couple of days ago however nothing since. Additionally, he notes that he has not been taking his medications as regularly as he normally does due to feeling so poorly. He also notes having had a history of previous episodes of bladder retention, mostly associated with a previous back surgery, however states no difficulties or changes in urination at this time. He does not utilize oxygen at home, however is currently utilizing 5 L via nasal cannula and saturating high 90%. 08/26 - He is seen and examined at bedside this morning, now on the fourth floor. Procalcitonin shown to be 0.38, as a result we will continue with antibiotics. 08/27 - He is seen and examined at bedside this morning. Overnight it was reported that he was beginning to pull his lines and expressed worsening confusion. This morning there was a slight increase in his leukocytosis, as well as his thrombocytosis. He has no acute complaints at this time. He was noted to have increased fatigue this morning, unable to consistently stay awake throughout the entirety of the conversation. REVIEW OF SYSTEMS: Pertinent positives and negatives noted in HPI. Physical Exam: General: nontoxic, no distress, appears at stated age; currently on 2 L nasal ca nnula Derm: warm, dry, intact Head: atraumatic, normocephalic, symmetric Eyes: EOMI, anicteric sclera Mouth: no lip lesion, mucus membranes moist Cardiovascular: S1 S2 reg, no murmur, rubs, or gallops Lungs: Diminished breath sounds in the left lower lobe Abdominal: soft, non-tender to palpataion, no appreciable organomegaly, with some distention noted Extremities: no gross muscle atrophy, no edema, no contractures Neuro: Alert, Oriented, CNII-XII grossly intact, gait normal; resting tremor which she attributes to tardive dyskinesia Psych: well appearing, appropriate affect Data Received Today: Labs: WBCs 20.3, hemoglobin 9.6 hematocrit 30.1, platelet 981; sodium 133, potassium 5.5, BUN 21, creatinine 0.89, total bilirubin 0.7, AST 115, ALT 110, alkaline phosphatase 134 -Hepatitis panel all nonreactive Imagining: Chest x-ray today showed persistent diffuse left lung infiltrates most prominent inferiorly Assessment and plan 59-year-old male with PMH of pancreatitis secondary alcohol abuse (sober for 20 months now, tardive dyskinesia, chronic low back pain with multiple surgeries (most recently being last year). Presented to the emergency department after having what he thought was a chest cold for approximately 2 weeks which had improved, however worsened over the last 3 days. With a worsening cough and shortness of breath. #Sepsis likely secondary to community-acquired pneumonia vs suspected choledocholithiasis #Acute encephalopathy possibly secondary to above #Acute hypoxic respiratory failure, secondary to likely community acquired pneumonia #Thrombocytosis, likely reactive to above, improving #Hypovolemic hyponatremia, improving #Elevated anion gap metabolic acidosis, improving #Transaminitis, possibly secondary to above -Chest x-ray independently read and interpreted -Continue with Rocephin 2 g every 24 hours (day 3 today) for total of 5 doses -Continue with Zithromax 500 mg daily (day 3 today) for total of 3 doses -Blood culture preliminarily negative -Sputum culture preliminarily negative -Continuing NS at 130 cc/h -Continue to wean oxygen as tolerated #Suspected choledocolethiasis vs cholangitis #History of chronic pancreatitis secondary to alcohol dependence #Transaminitis, possibly secondary to above -Liver ultrasound showed new biliary and pancreatic ductal dilation, obstructing CBD stone or lesion should be considered; ERCP/MRCP follow-up is advised -Hepatitis panel all nonreactive -Initiate on Flagyl 500 mg every 8 hours -MRCP ordered, currently pending to evaluate for presence of a stone #Normocytic anemia -Continue to monitor CBC -Not currently bleeding -Transfuse if Hgb <7 #Tardive dyskinesia -Continue home [place] XR #Nbq-taapikz-rurvoqofs type 2 diabetes mellitus -Accu-Cheks -Glucoses remained elevated regularly > 200 -Initiated with a one-time dose Lantus 15 units this morning; will continue with Lantus 15 units every morning -Sliding scale initiated -Hemoglobin A1c pending -Monitor for hypoglycemia Chronic: #Significant psychiatric history #Chronic low back pain with multiple surgeries #Hypertension on midodrine #GERD DVT ppx: Heparin 5000 units subcu twice daily GI PPx: Famotidine and Protonix Code status: Full code F: NS at 130 cc/h E: Replete as needed N: Heart healthy diet with carb consistent A: Ambulatory Anticipated discharge place: Pending clinical course Anticipated discharge time: Pending clinical course Dictation was produced using [employer] dictation software. please excuse any grammatical, word or spelling errors. Sandeep Reid MD PGY-1 IM I have seen and evaluated the patient today. Discussed with the resident and agree with the residents finding and plan as documented in the resident's note. Changes highlighted in blue font. Objective - Vital Signs Vital signs: Vital Signs Temp 98.5 F 08/27/24 07:30 Pulse 105 H 08/27/24 07:30 Resp 17 08/27/24 07:30 BP 100/67 08/27/24 07:30 Pulse Ox 94 L 08/27/24 07:30 FiO2 Intake & Output 08/26/24 08/27/24 08/27/24 18:59 06:59 18:59 Other: Voiding Method Urinal # Voids 1 - Labs CBC & Chem 7: 08/27/24 03:54 08/27/24 06:24 Labs: Abnormal Lab Results - Last 24 Hours (Table) 08/26/24 08/26/24 08/26/24 Range/Units 11:20 14:29 16:47 WBC (3.8-10.6) k/uL RBC (4.30-5.90) m/uL Hgb (13.0-17.5) gm/dL Hct (39.0-53.0) % Plt Count (150-450) k/uL Neutrophils # (1.3-7.7) k/uL Monocytes # (0-1.0) k/uL Sodium 130 L (137-145) mmol/L Potassium (3.5-5.1) mmol/L Chloride 94 L (98-107) mmol/L BUN 21 H (9-20) mg/dL Glucose 200 H (74-99) mg/dL POC Glucose (mg/dL) 277 H 483 H (70-110) mg/dL AST (17-59) U/L ALT (4-49) U/L Alkaline Phosphatase (38-126) U/L Total Protein (6.3-8.2) g/dL Albumin (3.5-5.0) g/dL 08/26/24 08/27/24 08/27/24 Range/Units 20:36 03:54 03:54 WBC 20.3 H (3.8-10.6) k/uL RBC 3.63 L (4.30-5.90) m/uL Hgb 9.6 L (13.0-17.5) gm/dL Hct 30.1 L (39.0-53.0) % Plt Count 981 H (150-450) k/uL Neutrophils # 16.0 H (1.3-7.7) k/uL Monocytes # 1.2 H (0-1.0) k/uL Sodium 133 L (137-145) mmol/L Potassium 5.5 H (3.5-5.1) mmol/L Chloride (98-107) mmol/L BUN 21 H (9-20) mg/dL Glucose 238 H (74-99) mg/dL POC Glucose (mg/dL) 231 H (70-110) mg/dL AST 115 H (17-59) U/L ALT 110 H (4-49) U/L Alkaline Phosphatase 134 H (38-126) U/L Total Protein 5.9 L (6.3-8.2) g/dL Albumin 2.8 L (3.5-5.0) g/dL 08/27/24 Range/Units 06:02 WBC (3.8-10.6) k/uL RBC (4.30-5.90) m/uL Hgb (13.0-17.5) gm/dL Hct (39.0-53.0) % Plt Count (150-450) k/uL Neutrophils # (1.3-7.7) k/uL Monocytes # (0-1.0) k/uL Sodium (137-145) mmol/L Potassium (3.5-5.1) mmol/L Chloride (98-107) mmol/L BUN (9-20) mg/dL Glucose (74-99) mg/dL POC Glucose (mg/dL) 230 H (70-110) mg/dL AST (17-59) U/L ALT (4-49) U/L Alkaline Phosphatase (38-126) U/L Total Protein (6.3-8.2) g/dL Albumin (3.5-5.0) g/dL Microbiology - Last 24 Hours (Table) 08/25/24 15:58 Gram Stain - Preliminary Sputum 08/25/24 14:51 Blood Culture - Preliminary Blood
--- NOTE | 2024-08-27 14:10 | CDI ---
Documentation Clarification Form Date: 08/27/2024 01:52:32 PM From: Pat Roland RN CCDS Phone: [phone] Admit Date: 08/25/2024 03:02:00 PM Patient Name: Andrea Elliott Visit Number: [id number] Discharge Date: ATTENTION: The Clinical Documentation Specialists (CDI) and [facility] Coding Staff appreciate your assistance in clarifying documentation. Please respond to the clarification below the line at the bottom and electronically sign. The CDI & [facility] Coding staff will review the response and follow-up if needed. Please note: Queries are made part of the Legal Health Record. If you have any questions, please contact the author of this message via ITS. Doctor: Jalen Del Toro Encephalopathy is documented 08/27, Medicine note. Additional clarification regarding the type of encephalopathy is requested. History/Risk Factors: 59 year old male presents to the ED with chest cold for two weeks which improved however worsened over the last three days with cough and shortness of breath. Medical History: Pancreatitis secondary to alcohol abuse sobor for 20months, tardive dyskinesia, DM2, HTN, Chronic back pain with surgery. 08/27, Medicine note. Clinical Indicators: Medicine note, 08/27: #Sepsis likely secondary to community acquired pneumonia vs suspected choldedocholithiasis. Acute encephalopathy possibly secondary to above. VSS, 08/25 : B/P 117/69, HR 115, Temp 98.9 F oral, RR 20, SpO2 88% room air Labs, 08/25 : Wbc 22.7, Neutorpihls 19.8, AST 60, ALT 79, Alk Phos 176 CXR, 08/25: New diffuse left lung acute infiltrates and/or edema. More prominent left lower lung acute pneumonic infiltrate with air bronchograms Liver US, 08/26: There is new biliary and pancreatic ductal dilation. Obstructing CBD stone or lesion needs to be considered. Treatment: 08/25 Ceftriaxone Ivpb x 1; 08/25 Azithromycin ivpb x1; 08/26 08/27 eftriaxone Ivpb Q24H x 4 bags; 08/26 Azithromycin IVPB Daily x 2 bags; 08/27 Metronidazole IVPB Q8H Fluids: 08/25 Lactated Ringers 1L @ 999mls/hr x 2 bags, 08/26 0.9NS IV @ 130MLS/HR Please clarify the type of encephalopathy, if known: [ ] Septic Encephalopathy [ x ] Metabolic Encephalopathy [ ] Other, please specify [ ] Unable to determine (Template Last Revised: July 2020) MTDD
[2024-08-27] MEDS: hydrOXYzine HCL 25 MG TAB PO PRN (15:05)
--- NOTE | 2024-08-27 16:32 | MR ---
EXAMINATION TYPE: MR MRCP DATE OF EXAM: 08/27/2024 4:19 PM COMPARISON: Chest radiograph. CLINICAL INDICATION: Male, 59 years old with history of CBD dilatation; PHH, CBD dilation TECHNIQUE: Multi planar, T2-weighted imaging with and without fat saturation and chemical shift imag ing was performed of the abdomen. Then, heavily T2 weighted imaging (half-Fourier acquisition single- shot turbo spin-echo) was utilized in order to study the biliary system. Maximum intensity projectio n images were reconstructed from the original data of the biliary tree. 3D images were created on [employer] work station. No Gadolinium given. FINDINGS: Left lower lung airspace consolidation/increased signal. MRCP: * The intrahepatic ducts have a normal appearance. * The extrahepatic ducts aren't dilated.. * The common hepatic duct measures 6 mm in size. * The common bile duct at the level of the pancreatic head measures 10 mm in size. * The pancreatic duct is demonstrates pancreatic divisum morphology. * The gallbladder appears unremarkable. Abdomen: Liver: No evidence for hepatic steatosis or cirrhosis. Signal dropout on chemical shift in phase imag ing. Pancreas: No ductal dilation. No evidence for solid mass. Spleen: Normal for size. Signal dropout on chemical shift in phase imaging. Adrenal glands: Unremarkable. Kidneys: No evidence for obstructive uropathy. No suspicious renal masses. Stomach and Bowel: No evidence for bowel wall thickening or evidence for obstruction. Scattered colon ic diverticula. Retroperitoneum/Peritoneum: No evidence of pneumoperitoneum or free fluid. Vasculature: No aortic aneurysm. Musculoskeletal: The osseous structures appear intact. Multilevel degeneration changes in the lower c ervical spine. Lymph Nodes: No gross evidence for lymphadenopathy. Abdominal wall: Unremarkable. IMPRESSION: 1. Biliary dilation without evidence for choledocholithiasis. No ductal stricture definitively visua lized. Consider ERCP to rule out ampullary mass. 2. Pancreatic divisum morphology. 3. Lower left lung airspace consolidation correlate for pneumonia. Consider cross-sectional imaging of the chest with IV contrast to exclude underlying mass. [facility], , 08/27/2024 4:30 PM
[2024-08-27 16:33] LABS: Glucose,Whole Blood 97 mg/dL (70-110)
[2024-08-27 20:36] LABS: Glucose,Whole Blood 283 mg/dL (70-110)
[2024-08-27] MEDS: guaiFENesin SYRUP 100MG/5ML 200 MG/10 ML CUP PO PRN (22:10)
[2024-08-28 05:39] LABS: Basophils # (A) 0.2 k/uL (0-0.2); Basophils % (A) 1 %; Eosinophils # (A) 0.7 k/uL (0-0.7); Eosinophils % (A) 4 %; HGB 8.9 gm/dL (13.0-17.5); Hypochromasia Moderate; Lymphocytes # (A) 1.9 k/uL (1.0-4.8); Lymphocytes % (A) 11 %; MCH 25.6 pg (25.0-35.0); MCHC 29.6 g/dL (31.0-37.0); MCV 86.4 fL (80.0-100.0); Mean Platelet Volume 7.3; Monocytes # (A) 0.6 k/uL (0-1.0); Monocytes % (A) 4 %; Neutrophils # (A) 13.9 k/uL (1.3-7.7); Neutrophils % (A) 78 %; Platelet Count 980 k/uL (150-450); RBC 3.47 m/uL (4.30-5.90); RDW 14.6 % (11.5-15.5); WBC 17.8 k/uL (3.8-10.6)
[2024-08-28 05:45] LABS: African American GFR (CKD) >90 (>60 ml/min/1.73 sqM); Anion Gap 8 mmol/L; Blood Urea Nitrogen 15 mg/dL (9-20); Calcium 8.4 mg/dL (8.4-10.2); Carbon Dioxide 24 mmol/L (22-30); Chloride 99 mmol/L (98-107); Glucose 187 mg/dL (74-99); Non-African American GFR(CKD) >90 (>60 ml/min/1.73 sqM); Potassium 4.1 mmol/L (3.5-5.1); Sodium 131 mmol/L (137-145)
[2024-08-28 06:18] LABS: Glucose,Whole Blood 266 mg/dL (70-110)
[2024-08-28] MEDS: INSULIN GLARGINE (LANTUS) 100 UNIT/ML SYR SQ SCH (06:59)
[2024-08-28 08:21] VITALS: RESP 18
[2024-08-28 11:43] LABS: Glucose,Whole Blood 305 mg/dL (70-110)
[2024-08-28 13:16] VITALS: BMI 24.3
[2024-08-28 13:43] LABS: ALT 99 U/L (4-49); AST 71 U/L (17-59); Albumin 2.5 g/dL (3.5-5.0); Albumin/Globulin Ratio 0.9; Alkaline Phosphatase 123 U/L (38-126); Globulin 2.9 g/dL; Total Bilirubin 0.3 mg/dL (0.2-1.3); Total Protein 5.4 g/dL (6.3-8.2)
--- NOTE | 2024-08-28 14:39 | P.DS ---
Providers Date of admission: 08/25/24 15:02 Expected date of discharge: 08/28/24 Attending physician: Jalen Del Toro Primary care physician: Stated None Hospital Course: Discharge diagnoses; #Sepsis secondary to community-acquired pneumonia #Acute encephalopathy secondary to above #Acute hypoxic respiratory failure, secondary to above #Thrombocytosis, likely reactive to above, improving #Hypovolemic hyponatremia, improving #Elevated anion gap metabolic acidosis, improving #Transaminitis, possibly secondary to above #Suspected choledocolethiasis vs cholangitis - ruled out #History of chronic pancreatitis secondary to alcohol dependence #Transaminitis, possibly secondary to above #Normocytic anemia #Tardive dyskinesia #[id number] type 2 diabetes mellitus Hospital course; 59-year-old male with PMH of, pancreatitis secondary to alcohol abuse (sober for 22 months now), tardive dyskinesia, chronic low back pain with multiple surgeries (most recently being last year). Presents emergency department with worsening shortness of breath, cough, and overall feeling of being unwell. He states that he felt he had a chest cold approximately 2 weeks ago which had been getting better, however over the past 3 days he has noticed it progressively getting worse. He has noted a worsening cough, the presence of hemoptysis on 2 occasions a couple of days ago however nothing since. During his stay he received 2 different antibiotics he has IV. Additionally, received oxygen supplementation as needed, and requires it for ambulation. During routine follow-up with labs he was noted to have elevated liver enzymes, which was thought could be attributing to his infectious process and was further evaluated. He underwent a liver ultrasound which showed evidence of new biliary and pancreatic ductal dilation, and recommended further evaluation with MRCP. He underwent an MRCP which showed biliary dilation without evidence for choledocholithiasis. Discussed with the patient, he endorsed having gone through a similar episode approximately 20 years ago in which elevated liver enzymes were similarly explored and they never found an obstructive stone at that time. He will require home oxygen upon discharge, which was evaluated and ordered for him. Upon discharge, he will need to complete 1 additional day of antibiotics. Discussed with him the importance of following up regularly with his primary care physician, and encouraged him to follow-up with gastroenterology for further evaluation of his dilated ducts. He states that he is feeling better and excited to be discharged today. He will also need follow- up with PCP for workup of essential thrombocytosis. Physical Exam: General: nontoxic, no distress, appears at stated age; currently on 2 L nasal cannula Derm: warm, dry, intact Head: atraumatic, normocephalic, symmetric Eyes: EOMI, anicteric sclera Mouth: no lip lesion, mucus membranes moist Cardiovascular: S1 S2 reg, no murmur, rubs, or gallops Lungs: Diminished breath sounds in the left lower lobe Abdominal: soft, non-tender to palpataion, no appreciable organomegaly, with some distention noted Extremities: no gross muscle atrophy, no edema, no contractures Neuro: Alert, Oriented, CNII-XII grossly intact, gait normal; resting tremor which she attributes to tardive dyskinesia Psych: well appearing, appropriate affect Dictation was produced using [employer] dictation software. please excuse any grammatical, word or spelling errors. Sandeep Reid MD PGY-1 IM A total of [38] minutes of time were spent preparing this complex discharge summary. Patient was discharged on 08/28/24 at at 1356. I have seen and evaluated the patient today. Discussed with the resident and agree with the residents finding and plan as documented in the resident's note. Changes highlighted in blue font. Plan - Discharge Summary Discharge Rx Participant: No New Discharge Prescriptions: New Cefdinir 300 mg PO Q12HR #2 cap Continue busPIRone HCL 15 mg PO BID Escitalopram [Lexapro] 20 mg PO DAILY Famotidine 40 mg PO HS Fenofibrate [Lofibra] 160 mg PO DAILY Ferrous Sulfate [Iron (65 MG Elemental)] 325 mg PO DAILY metFORMIN HCL [Glucophage] 1,000 mg PO BID Pravastatin Sodium [Pravachol] 40 mg PO HS Cyclobenzaprine [Flexeril] 10 mg PO Q8H [place]-3/Dha/Epa/Fish Oil [Fish Oil 1,000 mg Softgel] 2 cap PO BID Magnesium Oxide [Magnesium] 500 mg PO DAILY Sennosides [Senokot] 17.2 mg PO HS Calcium Carbonate/Vitamin D3 [Calcium 600-D3 20 mcg (800 Unit)] 1 tab PO DAILY glipiZIDE [Glucotrol] 20 mg PO BID Celecoxib [CeleBREX] 200 mg PO BID oxyCODONE-APAP 5-325MG [Percocet 5-325 mg] 1 tab PO DAILY Midodrine HCl [ProAmatine] 5 mg PO BID QUEtiapine [SEROquel] 400 mg PO HS Deutetrabenazine [Austedo Xr] 6 mg PO DAILY Lipase/Protease/Amylase [[place] 24,000 Unit Capsule] 1 cap PO TID-W/MEALS Pantoprazole Sodium [Protonix] 20 mg PO BID Gabapentin 1,200 mg PO TID Multivitamins, Thera [Multivitamin (formulary)] 1 tab PO DAILY Fluticasone Nasal [place] [Flonase Nasal [place]] 1 spray EA NOSTRIL DAILY Vitamin B Complex 1 cap PO DAILY Lidocaine 4% Patch 3 patch TOPICAL DAILY Empagliflozin [Jardiance] 25 mg PO DAILY hydrOXYzine pamoate [Vistaril] 50 mg PO TID PRN PRN Reason: Anxiety Discharge Medication List Lipase/Protease/Amylase [[place] 24,000 Unit Capsule] 1 cap PO TID-W/MEALS 12/15/22 [History] Escitalopram [Lexapro] 20 mg PO DAILY 04/02/24 [History] Famotidine 40 mg PO HS 04/02/24 [History] Fenofibrate [Lofibra] 160 mg PO DAILY 04/02/24 [History] Ferrous Sulfate [Iron (65 MG Elemental)] 325 mg PO DAILY 04/02/24 [History] Pantoprazole Sodium [Protonix] 20 mg PO BID 04/02/24 [History] Pravastatin Sodium [Pravachol] 40 mg PO HS 04/02/24 [History] busPIRone HCL 15 mg PO BID 04/02/24 [History] metFORMIN HCL [Glucophage] 1,000 mg PO BID 04/02/24 [History] Gabapentin 1,200 mg PO TID 05/01/24 [History] Calcium Carbonate/Vitamin D3 [Calcium 600-D3 20 mcg (800 Unit)] 1 tab PO DAILY 08/25/24 [History] Celecoxib [CeleBREX] 200 mg PO BID 08/25/24 [History] Cyclobenzaprine [Flexeril] 10 mg PO Q8H 08/25/24 [History] Deutetrabenazine [Austedo Xr] 6 mg PO DAILY 08/25/24 [History] Empagliflozin [Jardiance] 25 mg PO DAILY 08/25/24 [History] Fluticasone Nasal [place] [Flonase Nasal [place]] 1 spray EA NOSTRIL DAILY 08/25/24 [History] Lidocaine 4% Patch 3 patch TOPICAL DAILY 08/25/24 [History] Magnesium Oxide [Magnesium] 500 mg PO DAILY 08/25/24 [History] Midodrine HCl [ProAmatine] 5 mg PO BID 08/25/24 [History] Multivitamins, Thera [Multivitamin (formulary)] 1 tab PO DAILY 08/25/24 [History] [place]-3/Dha/Epa/Fish Oil [Fish Oil 1,000 mg Softgel] 2 cap PO BID 08/25/24 [History] QUEtiapine [SEROquel] 400 mg PO HS 08/25/24 [History] Sennosides [Senokot] 17.2 mg PO HS 08/25/24 [History] Vitamin B Complex 1 cap PO DAILY 08/25/24 [History] glipiZIDE [Glucotrol] 20 mg PO BID 08/25/24 [History] hydrOXYzine pamoate [Vistaril] 50 mg PO TID PRN 08/25/24 [History] oxyCODONE-APAP 5-325MG [Percocet 5-325 mg] 1 tab PO DAILY 08/25/24 [History] Cefdinir 300 mg PO Q12HR #2 cap 08/28/24 [Rx] Follow up Appointment(s)/Referral(s): [facility], [NON-STAFF] - 1 Week [facility],Equipment [NON-STAFF] - As Needed (*Call [facility] today to set up home oxygen concentrator*) Beti Sheppard MD [STAFF PHYSICIAN] - 09/02/24 2:00 pm [facility] [NON-STAFF] - 1-2 Days (Office is not answering at time of discharge. Please call for follow-up appointment.) Patient Instructions/Handouts: Community Acquired Pneumonia (GEN) Activity/Diet/Wound Care/Special Instructions: Follow up with gastroenterology and your primary care physician please. Repeat BMP in 3-4 days to monitor sodium closely. Discharge Disposition: HOME WITH HOME HEALTH SERVICES
[2024-08-28 16:01] VITALS: BP 100/61; PULSE 99; TEMP 98.8
[2024-08-29 16:29] LABS: Hepatitis A Antibody IgM Nonreactive (Nonreactive)
== END 2024-08-28 17:38 | disposition home health service (06) | DRG 871 ==
LOC: EC 13:03 → 4SSUR 15:02
PROVIDERS: ADMIT Student in an Organized Health Care Education/Training Program; ATTEND Student in an Organized Health Care Education/Training Program
PROC: 05H933Z Insertion of Infusion Device into Right Brachial Vein, Percutaneous Approach (ICD-10-PCS; principal; 2024-08-27)
DX: A41.9 Sepsis, unspecified organism (principal); G93.41 Metabolic encephalopathy; J18.9 Pneumonia, unspecified organism; J96.01 Acute respiratory failure with hypoxia; E87.20 Acidosis, unspecified; K86.0 Alcohol-induced chronic pancreatitis; J44.0 Chronic obstructive pulmonary disease with (acute) lower respiratory infection; E11.9 Type 2 diabetes mellitus without complications; F25.9 Schizoaffective disorder, unspecified; F10.20 Alcohol dependence, uncomplicated; K74.60 Unspecified cirrhosis of liver; D64.9 Anemia, unspecified; I10 Essential (primary) hypertension; J44.1 Chronic obstructive pulmonary disease with (acute) exacerbation; E87.1 Hypo-osmolality and hyponatremia; F31.9 Bipolar disorder, unspecified; Z79.4 Long term (current) use of insulin; Z11.52 Encounter for screening for COVID-19; E86.0 Dehydration; D75.839 Thrombocytosis, unspecified; E86.1 Hypovolemia; G24.01 Drug induced subacute dyskinesia; G89.29 Other chronic pain; M54.50 Low back pain, unspecified; K21.9 Gastro-esophageal reflux disease without esophagitis; E78.5 Hyperlipidemia, unspecified; F41.9 Anxiety disorder, unspecified; F43.10 Post-traumatic stress disorder, unspecified; Z79.1 Long term (current) use of non-steroidal anti-inflammatories (NSAID); Z79.84 Long term (current) use of oral hypoglycemic drugs; Z79.899 Other long term (current) drug therapy; Z82.49 Family history of ischemic heart disease and other diseases of the circulatory system; R74.01 Elevation of levels of liver transaminase levels; Z91.148 Patient's other noncompliance with medication regimen for other reason; Z96.643 Presence of artificial hip joint, bilateral; Z98.42 Cataract extraction status, left eye; Z98.41 Cataract extraction status, right eye
CPT/HCPCS: 36415; 71045; 71046; 74181; 76705; 80048; 80053; 80074; 83036; 83605; 83735; 83880; 84132; 84145; 84484; 85025; 85610; 85730; 87040; 87070; 87205; 87449; 87636; 93005; 94640; 94760; 96365; 96366; 96367; 99285

== ENCOUNTER → 2024-09-15 | Outpatient (CLI) | payer MEDICARE ==
[2024-09-15 14:47] LABS: African American GFR (CKD) 68 (>60 ml/min/1.73 sqM); Blood Urea Nitrogen 35 mg/dL (9-20); Non-African American GFR(CKD) 59 (>60 ml/min/1.73 sqM)
--- NOTE | 2024-09-16 09:02 | CT ---
EXAMINATION TYPE: CT chest w con CT DLP: 273.8 mGycm, Automated exposure control for dose reduction was used. DATE OF EXAM: 09/15/2024 3:38 PM COMPARISON: Chest radiograph 08/26/2024, 08/25/2024, CT chest abdomen and pelvis 03/28/2024 CLINICAL INDICATION:Male, 59 years old with history of J18.9 PNEUMONIA UNSPEC ORGANISM; PHH, f/u pneu monia TECHNIQUE: Multiple axial images were obtained through the chest following the administration of 100 cc of Isovue 300. . Coronal and sagittal reformats reviewed. FINDINGS: LUNGS/ PLEURA: No pneumothorax. Scattered subpleural reticular fibrotic changes. No honeycombing. Tra ce left pleural effusion with left basilar consolidation with air bronchograms. Patchy groundglass op acities within the left upper lobe. No suspicious pulmonary nodule or mass. AIRWAY: Patent and unremarkable.. HEART: Size within normal limits.Mitral annulus calcifications.. Small pericardial effusion. Minimal coronary artery calcifications present. MEDIASTINUM: Enlarged subcarinal lymph node measuring 1.2 cm short axis. VASCULATURE: Aneurysmal dilatation of the aortic root measuring up to 4.2 cm. The ascending thoracic aorta measures up to 3.4 cm. The descending thoracic aorta measures up to 2.4 cm. MUSCULOSKELETAL: No acute osseous abnormalities. Partial visualization of lumbar fusion hardware at L 2. Chronic superior endplate compression deformity of the L1 vertebral body with approximately 20% he ight loss. No retropulsion. Grade 1 retrolisthesis of L1 on L2. SOFT TISSUES/LYMPH NODES: Unremarkable. LOWER NECK: No significant findings. UPPER ABDOMEN: No significant findings. IMPRESSION: 1. Left lower lobe pneumonia with trace left pleural effusion. Additional groundglass infectious/infl ammatory regions within the left upper lobe. 2. Enlarged subcarinal lymph node which is likely reactive to #1. 3. Aortic root aneurysmal dilatation measuring up to 4.2 cm. 4. Small pericardial effusion. [facility], , 09/16/2024 9:00 AM
== END | disposition home or self-care (01) ==
LOC: RADCTMAIN 13:37
PROVIDERS: ATTEND Internal Medicine
DX: J18.9 Pneumonia, unspecified organism (principal); I31.39 Other pericardial effusion (noninflammatory); R59.0 Localized enlarged lymph nodes; J90 Pleural effusion, not elsewhere classified; I77.810 Thoracic aortic ectasia
CPT/HCPCS: 82565; 84520; 71260; 36415; Q9967

== ENCOUNTER 2024-11-10 08:35 | Observation (INO) | payer MEDICARE ==
--- NOTE | 2024-11-10 09:07 | ED ---
General Adult HPI - General Chief complaint: Chest Pain Stated complaint: Chest pain, high blood pressure Time Seen by Provider: 11/10/24 08:40 Source: patient, RN notes reviewed, old records reviewed Mode of arrival: ambulatory Limitations: no limitations - History of Present Illness Initial comments: This is a 59-year-old male who presents to the emergency department with a past medical history sick for high blood pressure, high cholesterol, diabetes, cirrhosis, renal issues and back surgery. Patient comes in today complaining that his blood pressure was high this morning took propranolol twice and it did not bring it down plus he has a significant headache and chest pressure. Patient denies any radiation of the pain. Patient [place] shortness of breath or difficulty breathing. Patient denies any abdominal pain patient has nausea vomiting diarrhea. Patient states he has had back pain ever since his surgery and that persists its no different today. Patient states the headache is worse than normal when he has high blood pressure. - Related Data Home Medications Medication Instructions Recorded Confirmed Lipase/Protease/Amylase [Creon Dr 24,000 units PO TID-W/MEALS 12/15/22 11/10/24 24,000 Unit Capsule] Escitalopram [Lexapro] 20 mg PO DAILY 04/02/24 11/10/24 Famotidine 40 mg PO HS 04/02/24 11/10/24 Fenofibrate [Lofibra] 160 mg PO DAILY 04/02/24 11/10/24 Ferrous Sulfate [Iron (65 MG 325 mg PO DAILY 04/02/24 11/10/24 Elemental)] Pantoprazole Sodium [Protonix] 20 mg PO BID 04/02/24 11/10/24 Pravastatin Sodium [Pravachol] 40 mg PO HS 04/02/24 11/10/24 busPIRone HCL 15 mg PO BID 04/02/24 11/10/24 metFORMIN HCL [Glucophage] 1,000 mg PO BID 04/02/24 11/10/24 Gabapentin 1,200 mg PO TID 05/01/24 11/10/24 Calcium Carbonate/Vitamin D3 1 tab PO DAILY 08/25/24 11/10/24 [Calcium 600-D3 20 mcg (800 Unit)] Celecoxib [CeleBREX] 200 mg PO BID 08/25/24 11/10/24 Cyclobenzaprine [Flexeril] 10 mg PO Q8H 08/25/24 11/10/24 Empagliflozin [Jardiance] 25 mg PO DAILY 08/25/24 11/10/24 Fluticasone Nasal [place] [Flonase 1 spray EA NOSTRIL DAILY 08/25/24 11/10/24 Nasal [place]] Lidocaine 4% Patch 3 patch TOPICAL DAILY 08/25/24 11/10/24 Magnesium Oxide [Magnesium] 500 mg PO DAILY 08/25/24 11/10/24 Midodrine HCl [ProAmatine] 5 mg PO BID 08/25/24 11/10/24 Multivitamins, Thera [Multivitamin 1 tab PO DAILY 08/25/24 11/10/24 (formulary)] [place]-3/Dha/Epa/Fish Oil [Fish Oil 2 cap PO BID 08/25/24 11/10/24 1,000 mg Softgel] QUEtiapine [SEROquel] 400 mg PO HS 08/25/24 11/10/24 Sennosides [Senokot] 17.2 mg PO HS 08/25/24 11/10/24 Vitamin B Complex 1 cap PO DAILY 08/25/24 11/10/24 glipiZIDE [Glucotrol] 20 mg PO BID 08/25/24 11/10/24 hydrOXYzine pamoate [Vistaril] 50 mg PO TID PRN 08/25/24 11/10/24 oxyCODONE-APAP 5-325MG [Percocet 1 tab PO DAILY 08/25/24 11/10/24 5-325 mg] Allergies Allergy/AdvReac Type Severity Reaction Status Date / Time thimerosal Allergy Severe Rash/Hives/throat Verified 11/10/24 11:22 swelling neomycin Allergy Rash/Hives Verified 11/10/24 11:22 Review of Systems ROS Statement: Those systems with pertinent positive or pertinent negative responses have been documented in the HPI. ROS Other: All systems not noted in ROS Statement are negative. Past Medical History Past Medical History: Diabetes Mellitus, GERD/Reflux, Hyperlipidemia, Hypertension, Liver Disease, Renal Disease Additional Past Medical History / Comment(s): Neuropathy, back pain raditating to legs, Cirrhosis, "kidneys don't always work right." , pancreatitis History of Any Multi-Drug Resistant Organisms: None Reported Past Surgical History: Heart Catheterization, Joint Replacement, Orthopedic Surgery Additional Past Surgical History / Comment(s): Bilateral cataracts removed, bilateral hip replacements, right heal surgery with screws/plates/pins placed, L2-L4 cage fussion Past Anesthesia/Blood Transfusion Reactions: No Reported Reaction Past Psychological History: Anxiety, Bipolar, Depression, PTSD, Schizoaffective Disorder Smoking Status: Vaper Past Alcohol Use History: None Reported Past Drug Use History: None Reported - Past Family History Father Family Medical History: Myocardial Infarction ([place]) Additional Family Medical History / Comment(s): [place] in mid 30's. Mother Family Medical History: Dementia family Additional Family Medical History / Comment(s): Anxiety. General Exam - General Exam Comments Initial Comments: GENERAL: Patient is well-developed and well-nourished. Patient is nontoxic and well- hydrated and is in mild distress. ENT: Neck is soft and supple. No significant lymphadenopathy is noted. Oropharynx is clear. Moist mucous membranes. Neck has full range of motion without eliciting any pain. EYES: The sclera were anicteric and conjunctiva were pink and moist. Extraocular movements were intact and pupils were equal round and reactive to light. Eyelids were unremarkable. PULMONARY: Unlabored respirations. Good breath sounds bilaterally. No audible rales rhonchi or wheezing was noted. CARDIOVASCULAR: There is a regular rate and rhythm without any murmurs gallops or rubs. ABDOMEN: Soft and nontender with normal bowel sounds. SKIN: Skin is clear with no lesions or rashes and otherwise unremarkable. NEUROLOGIC: Patient is alert and oriented x3. Cranial nerves II through XII are grossly i ntact. Motor and sensory are also intact. Normal speech, volume and content. Symmetrical smile. MUSCULOSKELETAL: Normal extremities with adequate strength and full range of motion. No lower extremity swelling or edema. No calf tenderness. LYMPHATICS: No significant lymphadenopathy is noted PSYCHIATRIC: Normal psychiatric evaluation. Limitations: no limitations Course Vital Signs 11/10/24 11/10/24 11/10/24 08:39 09:01 09:28 Temperature 97.4 F L Pulse Rate 88 83 Respiratory 18 Rate Blood Pressure 202/132 140/106 132/104 O2 Sat by Pulse 100 99 Oximetry 11/10/24 11/10/24 11/10/24 10:07 10:42 11:56 Temperature Pulse Rate 87 88 91 Respiratory 18 16 19 Rate Blood Pressure 141/106 143/97 154/111 O2 Sat by Pulse 96 96 95 Oximetry Medical Decision Making - Medical Decision Making EKG is interpreted by myself her EKG shows sinus rhythm 84 bpm NC 166 QRS is 100 QT interval is 374 QTc is 415. Patient's EKG shows no ST segment elevation or depression Was pt. sent in by a medical professional or institution ([facility], [facility], urgent care, hospital, or [facility]...) When possible be specific @ -No Did you speak to anyone other than the patient for history (EMS, parent, family, police, friend...)? What history was obtained from this source @ -No Did you review nursing and triage notes (agree or disagree)? Why? @ -I reviewed and agree with nursing and triage notes Were old charts reviewed (outside hosp., previous admission, EMS record, old EKG, old radiological studies, urgent care reports/EKG's, [facility] records)? Report findings @ -No old charts were reviewed Differential Diagnosis? @ -Differential Chest Pain: Stable Angina, Unstable Angina, STEMI, NSTEMI Aortic Dissection, Pneumothorax, Musculoskeletal, Esophageal Spasm GERD, Cholecystitis, Pancreatitis, Zoster, this is not meant to be an all-inclusive list. EKG interpreted by me (3pts min.). @ -As above X-rays interpreted by me (1pt min.). @ -Chest x-ray shows no acute abnormality CT interpreted by me (1pt min.). @ -None done U/S interpreted by me (1pt. min.). @ -None done What testing was considered but not performed or refused? (CT, X-rays, U/S, labs)? Why? @ -None What meds were considered but not given or refused? Why? @ -None Did you discuss the management of the patient with other professionals (professionals i.e. [facility], [facility], lab, RT, psych nurse, perinatal social worker, audio visual coordinator, teacher, examining officer, case manager specialist)? Give summary @ -I spoke with sound physicians they agreed to admit the patient admit the patient wrote admitting orders Was smoking cessation discussed for >3mins.? @ -No Was critical care preformed (if so, how long)? @ -No Were there social determinants of health that impacted care today? How? (H omelessness, low income, unemployed, alcoholism, drug addiction, transportation, low edu. Level, literacy, decrease access to med. care, nursing home, rehab)? @ -No Was there de-escalation of care discussed even if they declined (Discuss DNR or withdrawal of care, Hospice)? DNR status @ -No What co-morbidities impacted this encounter? (DM, HTN, Smoking, COPD, CAD, Cancer, CVA, ARF, Chemo, Hep., AIDS, mental health diagnosis, sleep apnea, morbid obesity)? @ -None Was patient admitted / discharged? Hospital course, mention meds given and route, prescriptions, significant lab abnormalities, going to OR and other pertinent info. @ -Patient's lab work came back within normal range however he is still exp eriencing some chest discomfort so I spoke with sound physicians they agreed to admit the patient I admitted the patient recommending orders and consult to cardiology Undiagnosed new problem with uncertain prognosis? @ -No Drug Therapy requiring intensive monitoring for toxicity (Heparin, Nitro, Ins ulin, Cardizem)? @ -No Were any procedures done? @ -No Diagnosis/symptom? @ -Chest pain Acute, or Chronic, or Acute on Chronic? @ -Acute Uncomplicated (without systemic symptoms) or Complicated (systemic symptoms)? @ -Comp Side effects of treatment? @ -No Exacerbation, Progression, or Severe Exacerbation? @ -No Poses a threat to life or bodily function? How? (Chest pain, [place], [place], pneumonia, PE, COPD, DKA, ARF, appy, cholecystitis, CVA, Diverticulitis, Homicidal, Suicidal, threat to staff... and all critical care pts) @ -Yes this can lead to an MN and endorgan dysfunction - Lab Data Result diagrams: 11/10/24 09:56 11/10/24 09:56 Lab Results 11/10/24 11/10/24 11/10/24 Range/Units 09:56 09:56 09:56 WBC 11.04 H (4.50-10.00) 10*3/uL RBC 4.36 L (4.40-5.60) 10*6/uL Hgb 12.4 L (13.0-17.0) g/dL Hct 37.9 L (39.6-50.0) % MCV 86.9 (80.0-97.0) fL MCH 28.4 (27.0-32.0) pg MCHC 32.7 (32.0-37.0) g/dL Plt Count 427 (140-440) 10*3/uL MPV 8.8 L (9.5-12.2) fL Immature Gran % (Auto) 0.5 % Neutrophils % 65.9 % Lymphocytes % 20.8 % Monocytes % 8.0 % Eosinophils % 3.6 % Basophils % 1.2 % Immature Gran # 0.05 H (0.00-0.04) 10*3/uL Neutrophils # 7.28 (1.80-7.70) 10*3/uL Lymphocytes # 2.30 (0.90-5.00) 10*3/uL Monocytes # 0.88 (0.20-1.00) 10*3/uL Eosinophils # 0.40 H (0.04-0.35) 10*3/uL Basophils # 0.13 H (0.00-0.10) 10*3/uL PT 10.2 (10.0-12.5) sec INR 0.9 (<1.2) APTT 24.2 (22.0-30.0) sec Sodium 137 (137-145) mmol/L Potassium 5.8 H (3.5-5.1) mmol/L Chloride 103 (98-107) mmol/L Carbon Dioxide 22 (22-30) mmol/L Anion Gap 12 mmol/L BUN 33 H (9-20) mg/dL Creatinine 1.29 H (0.66-1.25) mg/dL Est GFR (CKD-EPI)AfAm 69 (>60 ml/min/1.73 sqM) Est GFR (CKD-EPI)NonAf 60 (>60 ml/min/1.73 sqM) Glucose 152 H (74-99) mg/dL Calcium 9.7 (8.4-10.2) mg/dL Magnesium 1.9 (1.6-2.3) mg/dL Total Bilirubin 0.4 (0.2-1.3) mg/dL AST 32 (17-59) U/L ALT 42 (4-49) U/L Alkaline Phosphatase 103 (38-126) U/L Troponin I (0.000-0.034) ng/mL Total Protein 7.9 (6.3-8.2) g/dL Albumin 4.8 (3.5-5.0) g/dL 06/16/25 Range/Units 09:56 WBC (4.50-10.00) 10*3/uL RBC (4.40-5.60) 10*6/uL Hgb (13.0-17.0) g/dL Hct (39.6-50.0) % MCV (80.0-97.0) fL MCH (27.0-32.0) pg MCHC (32.0-37.0) g/dL Plt Count (140-440) 10*3/uL MPV (9.5-12.2) fL Immature Gran % (Auto) % Neutrophils % % Lymphocytes % % Monocytes % % Eosinophils % % Basophils % % Immature Gran # (0.00-0.04) 10*3/uL Neutrophils # (1.80-7.70) 10*3/uL Lymphocytes # (0.90-5.00) 10*3/uL Monocytes # (0.20-1.00) 10*3/uL Eosinophils # (0.04-0.35) 10*3/uL Basophils # (0.00-0.10) 10*3/uL PT (10.0-12.5) sec INR (<1.2) APTT (22.0-30.0) sec Sodium (137-145) mmol/L Potassium (3.5-5.1) mmol/L Chloride (98-107) mmol/L Carbon Dioxide (22-30) mmol/L Anion Gap mmol/L BUN (9-20) mg/dL Creatinine (0.66-1.25) mg/dL Est GFR (CKD-EPI)AfAm (>60 ml/min/1.73 sqM) Est GFR (CKD-EPI)NonAf (>60 ml/min/1.73 sqM) Glucose (74-99) mg/dL Calcium (8.4-10.2) mg/dL Magnesium (1.6-2.3) mg/dL Total Bilirubin (0.2-1.3) mg/dL AST (17-59) U/L ALT (4-49) U/L Alkaline Phosphatase (38-126) U/L Troponin I <0.012 (0.000-0.034) ng/mL Total Protein (6.3-8.2) g/dL Albumin (3.5-5.0) g/dL Disposition Clinical Impression: Chest pain Disposition: ADMITTED IP TO THIS HOSP Referrals: Agustina Yeung MD [Primary Care Provider] - 1-2 days Time of Disposition: 12:20
--- NOTE | 2024-11-10 09:50 | XR ---
EXAMINATION TYPE: XR chest 2V DATE OF EXAM: 11/10/2024 9:33 AM COMPARISON: 08/26/2024 CLINICAL INDICATION: Male, 59 years old with history of Chest Pain, TECHNIQUE: XR chest 2V view(s) obtained. FINDINGS: The heart size is normal. The pulmonary vasculature is normal. Mild left lower lobe infiltrate is present. Atelectasis or resolving pneumonia could be considered. F indings have improved from comparison. IMPRESSION: 1. Improved left lower lobe infiltrate. Residual remains. Follow-up exam within 3 months is recommend ed. [facility], , 11/10/2024 9:47 AM
--- NOTE | 2024-11-10 09:52 | CT ---
EXAMINATION TYPE: CT brain wo con DATE OF EXAM: 11/10/2024 9:43 AM COMPARISON: None. CLINICAL INDICATION: Male, 59 years old with history of Headache with high blood pressure, Headache w ith high blood pressure TECHNIQUE: CT of the brain is performed utilizing 3 mm thick sections through the posterior fossa and 3 mm thick sections through the remaining calvarium. Study is performed within 24 hours of arrival to the hospital. Contrast used: mL of , (none if empty) CT DLP: 1140.4 mGycm, Automated exposure control for dose reduction was used. FINDINGS: No abnormal hyperdensity is present to suggest an acute intracranial hemorrhage. No mass lesion is evident. No acute infarcts are evident. Ventricles and sulci are appropriate for the patient age. Paranasal sinuses and mastoid air cells within the [id number] are clear. IMPRESSION: 1. No acute intracranial process. Follow up MRI can be performed as clinically indicated. [facility], , 11/10/2024 9:50 AM
[2024-11-10] MEDS: ASPIRIN 81 MG PO STA (10:02)
[2024-11-10] MEDS: NITROGLYCERIN OINT 1 INCH/GM PACKET TOPICAL STA (10:03)
[2024-11-10] MEDS: LORazepam 1 MG/0.5 ML VIAL IV STA (10:03)
[2024-11-10] MEDS: HYDROmorphone 0.5 MG/0.5 ML SYRINGE IVP STA (10:03)
[2024-11-10] MEDS: SODIUM CHLORIDE 0.9% 500 ML 500 ML IV STA (10:08)
[2024-11-10 10:12] LABS: Basophils # (A) 0.13 10*3/uL (0.00-0.10); Basophils % (A) 1.2 %; Eosinophils % (A) 3.6 %; HCT 37.9 % (39.6-50.0); HGB 12.4 g/dL (13.0-17.0); Lymphocytes % (A) 20.8 %; MCH 28.4 pg (27.0-32.0); MCHC 32.7 g/dL (32.0-37.0); MCV 86.9 fL (80.0-97.0); Mean Platelet Volume 8.8 fL (9.5-12.2); Monocytes # (A) 0.88 10*3/uL (0.20-1.00); Neutrophils # (A) 7.28 10*3/uL (1.80-7.70); Neutrophils % (A) 65.9 %; Platelet Count 427 10*3/uL (140-440); RBC 4.36 10*6/uL (4.40-5.60); RDW 16.4 % (11.5-14.5); WBC 11.04 10*3/uL (4.50-10.00)
[2024-11-10 10:24] LABS: INR 0.9 (<1.2); Partial Thromboplastin Time 24.2 sec (22.0-30.0); Prothrombin Time 10.2 sec (10.0-12.5)
[2024-11-10 10:27] LABS: ALT 42 U/L (4-49); AST 32 U/L (17-59); African American GFR (CKD) 69 (>60 ml/min/1.73 sqM); Albumin 4.8 g/dL (3.5-5.0); Alkaline Phosphatase 103 U/L (38-126); Anion Gap 12 mmol/L; Blood Urea Nitrogen 33 mg/dL (9-20); Calcium 9.7 mg/dL (8.4-10.2); Carbon Dioxide 22 mmol/L (22-30); Chloride 103 mmol/L (98-107); Glucose 152 mg/dL (74-99); Magnesium 1.9 mg/dL (1.6-2.3); Non-African American GFR(CKD) 60 (>60 ml/min/1.73 sqM); Potassium 5.8 mmol/L (3.5-5.1); Sodium 137 mmol/L (137-145); Total Bilirubin 0.4 mg/dL (0.2-1.3); Total Protein 7.9 g/dL (6.3-8.2)
[2024-11-10] MEDS: SODIUM ZIRCONIUM CYCLOSILICATE 10 GM PACKET PO ONE (11:49)
[2024-11-10] MEDS: CALCIUM CHLORIDE 100 MG/ML 10 ML SYRINGE IVP STA (11:49)
[2024-11-10] MEDS ORDERED: NITROGLYCERIN SL TABS 0.4 MG TAB SUBLINGUAL PRN (12:20)
[2024-11-10] MEDS ORDERED: DEXTROSE 50% SYRINGE 50 ML IVP PRN ×2 (13:28)
[2024-11-10 14:00] LABS: Glucose,Whole Blood 106 mg/dL (70-110)
[2024-11-10] MEDS ORDERED: NALOXONE 0.4 MG/ML 1 ML VIAL IV PRN (14:23)
--- NOTE | 2024-11-10 14:25 | P.HPIM ---
History of Present Illness H&P Date: 11/10/24 Patient is a 59-year-old male with past medical history of alcoholic cirrhosis, alcohol induced pancreatitis, history of alcohol use disorder in remission, tardive dyskinesia, chronic low back pain with history of multiple back surgeries, type II DM (last A1c 9.3 on 08/26/2024,), GERD, hyperlipidemia, hypertension, CKD 3a, who presented to the ER on 11/10 due to elevated blood pressure with associated headache and chest pressure. Chest pressure was nonradiating, no diaphoresis, no shortness of breath, abdominal pain, nausea, vomiting, fever, chills. Patient states that his blood pressure normally runs at 100 over 70s, he previously was on midodrine 5 twice daily for symptomatic hypotension, however, his symptoms resolved and blood pressure improved, thus, around 1 month ago he stopped midodrine. Today he noted his blood pressure to be going up to 160s systolic, he took propranolol 20 3 times with no improvement and decided to come for further evaluation On arrival afebrile, heart rate in 80s, initial BP 202/132, SpO2 99% on room air. Blood work showed mild leukocytosis 11.04, hemoglobin 12.4, stable from August, platelet count 427, normal coagulation panel, creatinine 1.29 around baseline, potassium 5.8, normal sodium, bicarb, chloride, magnesium, troponin negative, normal AST, ALT, total bilirubin. EKG nonischemic, QTc 415. CT head showed no signs of bleeding patient was loaded with aspirin, admitted under observation status with cardiology consultation. Pertinent positives and negatives as discussed in HPI, a complete review of systems was performed and all other systems are negative. Patient seen and examined at bedside. Vital signs reviewed General: nontoxic, no distress, appears at stated age Derm: warm, dry Head: atraumatic, normocephalic, symmetric Eyes: EOMI, no lid lag, anicteric sclera, pupils equal round reactive to light ENT: Nose and ears atraumatic Neck: No thyromegaly, supple Mouth: no lip lesion, mucus membranes moist Cardiovascular: S1S2 reg, no murmur, no edema Lungs: clear to auscultation bilateral, no rhonchi, no rales, no wheeze, no accessory muscle use Abdominal: soft, nontender to palpation, no guarding, no appreciable orga nomegaly Ext: no gross muscle atrophy, muscle strength muscle strength 5 out of 5 in all 4 extremities, no contractures, signs of tardive dyskinesia Neuro: CN II-XII grossly intact Psych: Alert, oriented, appropriate affect Assessment/Plan: Hypertensive urgency Chest pressure Hypertension Headache -Cardiology consulted, appreciate recommendations -Start aspirin 81 mg daily, A1c and lipid panel ordered, ordered TSH -Trend troponins Hyperkalemia -Recheck BMP ordered hx if chronic alcohol induced pancreatitis history of alcohol use disorder in remission tardive dyskinesia chronic low back pain with history of multiple back surgeries:Flexeril 10 mg p.o. every 8 hours added morphine 1 mg every 4 hours as needed for breakthrough pain, patient has scheduled pain clinic appointment next week. - Continue buspirone 15 mg p.o. twice daily, - Continue Lexapro 20 mg p.o. daily, gabapentin 1200 p.o. 3 times daily, lidocaine patch, Percocet 5 1 tablet daily, quetiapine 400 mg nightly -Continue home [id number],0000 unit 3 times daily with meals type II DM (last A1c 9.3 on 08/26/2024,: Hold home metformin 100 mg twice daily, glipizide 20 mg p.o. twice daily, continue Jardiance 25 mg p.o. daily, start Accu-Cheks, low intensity SSI, basal bolus with Lantus 10 and mealtime 3 units, hypoglycemia precautions GERD: Continue Protonix 20 twice daily, famotidine 40 mg nightly hyperlipidemia: Continue home fenofibrate 160 mg p.o. daily, pravastatin 40 mg p.o. nightly hypertension: Patient takes midodrine at home, will hold CKD 3a: At baseline, monitor BMP The patient is admitted with an anticipated less than 2 midnight stay as observation status for evaluation of chest pain. CODE STATUS: DNR/DNI DVT prophylaxis: Heparin Anticipated discharge date: 11/[address]: Home A total of 40 minutes was spent on the care of this complex patient more than 50% of the time was spent in counseling and care coordination. Past Medical History Past Medical History: Diabetes Mellitus, GERD/Reflux, Hyperlipidemia, Hypertension, Liver Disease, Renal Disease Additional Past Medical History / Comment(s): Neuropathy, back pain raditating to legs, Cirrhosis, "kidneys don't always work right." , pancreatitis History of Any Multi-Drug Resistant Organisms: None Reported Past Surgical History: Heart Catheterization, Joint Replacement, Orthopedic Surgery Additional Past Surgical History / Comment(s): Bilateral cataracts removed, bilateral hip replacements, right heal surgery with screws/plates/pins placed, L2-L4 cage fussion Past Anesthesia/Blood Transfusion Reactions: No Reported Reaction Past Psychological History: Anxiety, Bipolar, Depression, PTSD, Schizoaffective Disorder Smoking Status: Vaper Past Alcohol Use History: None Reported Past Drug Use History: None Reported - Past Family History Father Family Medical History: Myocardial Infarction ([place]) Additional Family Medical History / Comment(s): [place] in mid 30's. Mother Family Medical History: Dementia family Additional Family Medical History / Comment(s): Anxiety. Medications and Allergies Home Medications Medication Instructions Recorded Confirmed Type Lipase/Protease/Amylase [Creon Dr 24,000 units PO TID-W/MEALS 12/15/22 11/10/24 History 24,000 Unit Capsule] Escitalopram [Lexapro] 20 mg PO DAILY 04/02/24 11/10/24 History Famotidine 40 mg PO HS 04/02/24 11/10/24 History Fenofibrate [Lofibra] 160 mg PO DAILY 04/02/24 11/10/24 History Ferrous Sulfate [Iron (65 MG 325 mg PO DAILY 04/02/24 11/10/24 History Elemental)] Pantoprazole Sodium [Protonix] 20 mg PO BID 04/02/24 11/10/24 History Pravastatin Sodium [Pravachol] 40 mg PO HS 04/02/24 11/10/24 History busPIRone HCL 15 mg PO BID 04/02/24 11/10/24 History metFORMIN HCL [Glucophage] 1,000 mg PO BID 04/02/24 11/10/24 History Gabapentin 1,200 mg PO TID 05/01/24 11/10/24 History Calcium Carbonate/Vitamin D3 1 tab PO DAILY 08/25/24 11/10/24 History [Calcium 600-D3 20 mcg (800 Unit)] Celecoxib [CeleBREX] 200 mg PO BID 08/25/24 11/10/24 History Cyclobenzaprine [Flexeril] 10 mg PO Q8H 08/25/24 11/10/24 History Empagliflozin [Jardiance] 25 mg PO DAILY 08/25/24 11/10/24 History Fluticasone Nasal [place] [Flonase 1 spray EA NOSTRIL DAILY 08/25/24 11/10/24 History Nasal [place]] Lidocaine 4% Patch 3 patch TOPICAL DAILY 08/25/24 11/10/24 History Magnesium Oxide [Magnesium] 500 mg PO DAILY 08/25/24 11/10/24 History Midodrine HCl [ProAmatine] 5 mg PO BID 08/25/24 11/10/24 History Multivitamins, Thera [Multivitamin 1 tab PO DAILY 08/25/24 11/10/24 History (formulary)] [place]-3/Dha/Epa/Fish Oil [Fish Oil 2 cap PO BID 08/25/24 11/10/24 History 1,000 mg Softgel] QUEtiapine [SEROquel] 400 mg PO HS 08/25/24 11/10/24 History Sennosides [Senokot] 17.2 mg PO HS 08/25/24 11/10/24 History Vitamin B Complex 1 cap PO DAILY 08/25/24 11/10/24 History glipiZIDE [Glucotrol] 20 mg PO BID 08/25/24 11/10/24 History hydrOXYzine pamoate [Vistaril] 50 mg PO TID PRN 08/25/24 11/10/24 History oxyCODONE-APAP 5-325MG [Percocet 1 tab PO DAILY 08/25/24 11/10/24 History 5-325 mg] Allergies Allergy/AdvReac Type Severity Reaction Status Date / Time thimerosal Allergy Severe Rash/Hives/throat Verified 11/10/24 11:22 swelling neomycin Allergy Rash/Hives Verified 11/10/24 11:22 Physical Exam Vitals: Vital Signs Temp Pulse Resp BP Pulse Ox 11/10/24 12:42 87 19 138/88 97 11/10/24 11:56 91 19 154/111 95 11/10/24 10:42 88 16 143/97 96 11/10/24 10:07 87 18 141/106 96 11/10/24 09:28 83 132/104 99 11/10/24 09:01 140/106 11/10/24 08:39 97.4 F L 88 18 202/132 100 Intake and Output 11/09/24 11/10/24 11/10/24 22:59 06:59 14:59 Other: Weight 70.307 kg Results CBC & Chem 7: 11/10/24 09:56 11/10/24 09:56 Labs: Abnormal Lab Results - Last 24 Hours (Table) 11/10/24 11/10/24 Range/Units 09:56 09:56 WBC 11.04 H (4.50-10.00) 10*3/uL RBC 4.36 L (4.40-5.60) 10*6/uL Hgb 12.4 L (13.0-17.0) g/dL Hct 37.9 L (39.6-50.0) % MPV 8.8 L (9.5-12.2) fL Immature Gran # 0.05 H (0.00-0.04) 10*3/uL Eosinophils # 0.40 H (0.04-0.35) 10*3/uL Basophils # 0.13 H (0.00-0.10) 10*3/uL Potassium 5.8 H (3.5-5.1) mmol/L BUN 33 H (9-20) mg/dL Creatinine 1.29 H (0.66-1.25) mg/dL Glucose 152 H (74-99) mg/dL
[2024-11-10 14:53] LABS: African American GFR (CKD) 76 (>60 ml/min/1.73 sqM); Anion Gap 10 mmol/L; Blood Urea Nitrogen 29 mg/dL (9-20); Calcium 10.7 mg/dL (8.4-10.2); Carbon Dioxide 22 mmol/L (22-30); Chloride 105 mmol/L (98-107); Glucose 107 mg/dL (74-99); Non-African American GFR(CKD) 66 (>60 ml/min/1.73 sqM); Potassium 4.6 mmol/L (3.5-5.1); Sodium 137 mmol/L (137-145)
[2024-11-10] MEDS: CYCLOBENZAPRINE 10 MG TAB PO SCH (15:51)
[2024-11-10] MEDS: GABAPENTIN 400 MG CAP PO SCH (15:52)
[2024-11-10] MEDS: HEPARIN SODIUM,PORCINE 5,000 UNIT/ML 1 ML VIAL SQ SCH (15:52)
[2024-11-10] MEDS: hydrOXYzine pamoate 25 MG CAP PO PRN (16:05)
[2024-11-10] MEDS: MORPHINE SULFATE 2 MG/ML SYRINGE IVP PRN (16:06)
[2024-11-10] MEDS: ALPRAZolam 1 MG TAB PO STA (17:35)
[2024-11-10 17:53] LABS: Glucose,Whole Blood 215 mg/dL (70-110)
[2024-11-10] MEDS: INSULIN LISPRO (HumaLOG) 100 UNIT/ML 10 mL VL SQ SCH ×2 (18:10→18:11)
[2024-11-10] MEDS: LIPASE 20,000/PROTEASE 63,000/AMYLASE 84,000 PO SCH (18:11)
[2024-11-10] MEDS: NITROGLYCERIN OINT 1 INCH/GM PACKET TOPICAL SCH (18:12)
[2024-11-10 21:29] LABS: Glucose,Whole Blood 185 mg/dL (70-110)
[2024-11-10 22:02] LABS: Glucose,Whole Blood 176 mg/dL (70-110)
[2024-11-10] MEDS: FAMOTIDINE 20 MG TAB PO SCH (22:28)
[2024-11-10] MEDS: SENNOSIDES 8.6 MG TAB PO SCH (22:28)
[2024-11-10] MEDS: INSULIN GLARGINE (LANTUS) 100 UNIT/ML SYR SQ SCH (22:46)
[2024-11-10] MEDS: QUEtiapine 400 MG TAB PO SCH (23:14)
[2024-11-10] MEDS: busPIRone HCl 10 MG TAB PO SCH (23:14)
[2024-11-10] MEDS: PRAVASTATIN SODIUM 40 MG TAB PO SCH (23:14)
[2024-11-11 06:03] LABS: Glucose,Whole Blood 196 mg/dL (70-110)
[2024-11-11] MEDS: PANTOPRAZOLE 40 MG TABLET PO SCH (06:58)
[2024-11-11 08:03] LABS: Basophils # (A) 0.11 X 10*3/uL (0.00-0.10); Basophils % (A) 1.3 %; Eosinophils # (A) 0.56 X 10*3/uL (0.04-0.35); Eosinophils % (A) 6.5 %; HCT 38.7 % (39.6-50.0); HGB 12.2 g/dL (13.0-17.0); Lymphocytes # (A) 2.55 X 10*3/uL (0.90-5.00); Lymphocytes % (A) 29.5 %; MCH 27.7 pg (27.0-32.0); MCHC 31.5 g/dL (32.0-37.0); MCV 87.8 FL (80.0-97.0); Mean Platelet Volume 9.4 FL (9.5-12.2); Monocytes # (A) 0.81 X 10*3/uL (0.20-1.00); Monocytes % (A) 9.4 %; NRBC Per 100 WBC 0 X 10*3/uL (0.00-0.01); Neutrophils # (A) 4.58 X 10*3/uL (1.80-7.70); Neutrophils % (A) 52.8 %; Platelet Count 434 X 10*3/uL (140-440); RBC 4.41 X 10*6/uL (4.40-5.60); RDW 16.6 % (11.5-14.5); WBC 8.65 X 10*3/uL (4.50-10.00)
[2024-11-11 08:55] LABS: BUN/Creat Ratio 20.14 Ratio (12.00-20.00); Blood Urea Nitrogen 28.2 mg/dL (9.0-27.0); Chloride 99 mmol/L (96-109); Chol/HDL Ratio 4.64 Ratio; Glucose 205 mg/dL (70-110); Sodium 134 mmol/L (135-145)
[2024-11-11 08:56] LABS: Calcium 9.9 mg/dL (8.7-10.3); Carbon Dioxide 20.9 mmol/L (21.6-31.8)
[2024-11-11] MEDS ORDERED: ASPIRIN 325 MG TAB PO SCH (09:00)
[2024-11-11] MEDS ORDERED: NON FORMULARY DRUG (Vitamin B Complex [Vitamin B Complex] 1 EACH Capsule) PO SCH (09:00)
[2024-11-11] MEDS: LIDOCAINE 4% PATCH TOPICAL SCH (09:30)
[2024-11-11] MEDS: oxyCODONE-APAP 5-325MG 1 EACH TAB PO SCH (09:32)
[2024-11-11] MEDS: ASPIRIN 81 MG PO SCH (10:58)
[2024-11-11] MEDS: FENOFIBRATE 160 MG TAB PO SCH (10:59)
[2024-11-11] MEDS: ESCITALOPRAM 20 MG TAB PO SCH (10:59)
[2024-11-11] MEDS: FERROUS SULFATE 325 MG TAB PO SCH (10:59)
[2024-11-11] MEDS: DAPAGLIFLOZIN PROPANEDIOL 10 MG TABLET PO SCH (10:59)
[2024-11-11] MEDS: NICOTINE 21MG/24HR PATCH TRANSDERM SCH (11:04)
[2024-11-11] MEDS: FLUTICASONE NASAL 50MCG/SPRAY 16GM BTL EA NOSTRIL SCH (12:00)
[2024-11-11 12:15] LABS: Glucose,Whole Blood 203 mg/dL (70-110)
--- NOTE | 2024-11-11 12:57 | P.CRDCN ---
History of Present Illness History of present illness: HISTORY OF PRESENT ILLNESS: This is a 59-year-old male with a past medical history significant for hypertension, hyperlipidemia, diabetes, chronic kidney disease, and alcohol abuse. Patient follows in the office with Dr. Garcia but has not been seen since November 2023. We have been asked to see the patient in consultation for chest pain. Patient examined at the bedside. Patient states he was having anxiety yesterday and alot of stress in his life. He checked his BP which was in the 160s. He took a propanolol and checked it in 2 hours but it was still high so he took another one and then came to the hospital for further evaluation. He reports mild CP. This morning he reports anxiety but no further chest pain or shortness of breath. DIAGNOSTICS: - EKG reveals sinus mechanism with no signs of acute ischemia. - Chest xray improved left lower lobe infiltrate. Residual remains.. - Laboratory data: WBC 8.65. Hemoglobin 12.2. Platelet count 434. Sodium 137. Potassium 4.6. BUN 29. Creatinine 1.19. Troponin negative x 3 - Current home cardiac medications include fenofibrate 160 mg daily, midodrine 5 mg twice a day, Pravachol 40 mg at night,. - Most recent echocardiogram obtained in September 2021 revealing ejection fraction 60 to 65%, mild TR - Cardiac catheterization history: May 2020 revealing normal coronary arteries REVIEW OF SYSTEMS: At the time of my exam: CONSTITUTIONAL: Denies fever or chills. HEENT: Denies blurred vision, vision changes, or eye pain. Denies hemoptysis CARDIOVASCULAR: Denies chest pain. Denies orthopnea. Denies PND. Denies palpitations RESPIRATORY: Denies shortness of breath. GASTROINTESTINAL: Denies abdominal pain. Denies nausea or vomiting. HEMATOLOGIC: Denies bleeding disorders. GENITOURINARY: Denies any blood in urine. SKIN: Denies pruitis. Denies rash. PHYSICAL EXAM: VITAL SIGNS: Reviewed. GENERAL: Well-developed in no acute distress. HEENT: Head is normocephalic. Pupils are equal, round. Sclerae anicteric. Mucous membranes of the mouth are moist. Neck supple. No JVD or thyromegaly LUNGS: Respirations even and unlabored. Lungs essentially clear to auscultation bilaterally. HEART: Regular rate and rhythm. S1 and S2 heard. ABDOMEN: Soft. Nondistended. Nontender. EXTREMITIES: Normal range of motion. No clubbing or cyanosis. Peripheral pulses intact. No lower extremity edema NEUROLOGIC: Awake and alert. Oriented x 3. ASSESSMENT: Hypertensive emergency 202/132 on admission Chest pain, ACS ruled out History of hypertension History of hyperlipidemia History of diabetes Chronic kidney disease History of alcohol abuse, currently sober Chronic low back pain with previous surgery PLAN: An acute coronary event has been ruled out Obtain 2D echo to assess cardiac structure and function Hold midodrine. Do not resume upon discharge. Continue to monitor blood pressure Treatment of anxiety per primary medicine May discharge home today pending echo results Further recommendations pending patient course Nurse practitioner note has been reviewed by physician. Signing provider agrees with the documented findings, assessment, and plan of care documented by SKID MACHINE OPERATOR as a scribe. Past Medical History Past Medical History: Diabetes Mellitus, GERD/Reflux, Hyperlipidemia, Hypert ension, Liver Disease, Renal Disease Additional Past Medical History / Comment(s): Neuropathy, back pain raditating to legs, Cirrhosis, "kidneys don't always work right." , pancreatitis History of Any Multi-Drug Resistant Organisms: None Reported Past Surgical History: Heart Catheterization, Joint Replacement, Orthopedic S urgery Additional Past Surgical History / Comment(s): Bilateral cataracts removed, bilateral hip replacements, right heal surgery with screws/plates/pins placed, L2-L4 cage fussion Past Anesthesia/Blood Transfusion Reactions: No Reported Reaction Past Psychological History: Anxiety, Bipolar, Depression, PTSD, Schizoaffective Disorder Smoking Status: Vaper Past Alcohol Use History: None Reported Additional Past Alcohol Use History / Comment(s): Per sister, pt has been clean for about a year and was drinking heavily, using street drugs (mainly huffing) prior. Past Drug Use History: None Reported Additional Drug Use History / Comment(s): Pt's sister states that pt has been using illicit drugs since he was a child but has been clean for about a year. - Past Family History Father Family Medical History: Myocardial Infarction ([place]) Additional Family Medical History / Comment(s): [place] in mid 30's. Mother Family Medical History: Dementia family Additional Family Medical History / Comment(s): Anxiety. Medications and Allergies Home Medications Medication Instructions Recorded Confirmed Type Lipase/Protease/Amylase [[place] 24,000 units PO TID-W/MEALS 12/15/22 11/10/24 History 24,000 Unit Capsule] Escitalopram [Lexapro] 20 mg PO DAILY 04/02/24 11/10/24 History Famotidine 40 mg PO HS 04/02/24 11/10/24 History Fenofibrate [Lofibra] 160 mg PO DAILY 04/02/24 11/10/24 History Ferrous Sulfate [Iron (65 MG 325 mg PO DAILY 04/02/24 11/10/24 History Elemental)] Pantoprazole Sodium [Protonix] 20 mg PO BID 04/02/24 11/10/24 History Pravastatin Sodium [Pravachol] 40 mg PO HS 04/02/24 11/10/24 History busPIRone HCL 15 mg PO BID 04/02/24 11/10/24 History metFORMIN HCL [Glucophage] 1,000 mg PO BID 04/02/24 11/10/24 History Gabapentin 1,200 mg PO TID 05/01/24 11/10/24 History Calcium Carbonate/Vitamin D3 1 tab PO DAILY 08/25/24 11/10/24 History [Calcium 600-D3 20 mcg (800 Unit)] Celecoxib [CeleBREX] 200 mg PO BID 08/25/24 11/10/24 History Cyclobenzaprine [Flexeril] 10 mg PO Q8H 08/25/24 11/10/24 History Empagliflozin [Jardiance] 25 mg PO DAILY 08/25/24 11/10/24 History Fluticasone Nasal [place] [Flonase 1 spray EA NOSTRIL DAILY 08/25/24 11/10/24 History Nasal [place]] Lidocaine 4% Patch 3 patch TOPICAL DAILY 08/25/24 11/10/24 History Magnesium Oxide [Magnesium] 500 mg PO DAILY 08/25/24 11/10/24 History Midodrine HCl [ProAmatine] 5 mg PO BID 08/25/24 11/10/24 History Multivitamins, Thera [Multivitamin 1 tab PO DAILY 08/25/24 11/10/24 History (formulary)] [place]-3/Dha/Epa/Fish Oil [Fish Oil 2 cap PO BID 08/25/24 11/10/24 History 1,000 mg Softgel] QUEtiapine [SEROquel] 400 mg PO HS 08/25/24 11/10/24 History Sennosides [Senokot] 17.2 mg PO HS 08/25/24 11/10/24 History Vitamin B Complex 1 cap PO DAILY 08/25/24 11/10/24 History glipiZIDE [Glucotrol] 20 mg PO BID 08/25/24 11/10/24 History hydrOXYzine pamoate [Vistaril] 50 mg PO TID PRN 08/25/24 11/10/24 History oxyCODONE-APAP 5-325MG [Percocet 1 tab PO DAILY 08/25/24 11/10/24 History 5-325 mg] Allergies Allergy/AdvReac Type Severity Reaction Status Date / Time thimerosal Allergy Severe Rash/Hives/throat Verified 11/10/24 11:22 swelling neomycin Allergy Rash/Hives Verified 11/10/24 11:22 Physical Exam Vitals: Vital Signs Temp Pulse Pulse Pulse Resp BP BP 11/11/24 07:00 97.6 F 97 15 11/11/24 01:28 98.1 F 105 H 17 111/70 11/10/24 21:50 98.1 F 98 17 117/73 11/10/24 20:48 98.7 F 93 12 133/97 11/10/24 15:55 97.6 F 94 18 114/87 11/10/24 12:42 87 19 138/88 11/10/24 11:56 91 19 154/111 11/10/24 10:42 88 16 143/97 11/10/24 10:07 87 18 141/106 11/10/24 09:28 83 132/104 11/10/24 09:01 140/106 11/10/24 08:39 97.4 F L 88 18 202/132 BP Pulse Ox 11/11/24 07:00 113/75 98 11/11/24 01:28 98 11/10/24 21:50 96 11/10/24 20:48 97 11/10/24 15:55 96 11/10/24 12:42 97 11/10/24 11:56 95 11/10/24 10:42 96 11/10/24 10:07 96 11/10/24 09:28 99 11/10/24 09:01 11/10/24 08:39 100 Intake and Output 11/10/24 11/11/24 11/11/24 22:59 06:59 14:59 Other: Voiding Method Toilet # Voids 1 2 Weight 70.307 kg Results 11/11/24 04:50 11/11/24 04:50 Cardiac Enzymes 11/10/24 11/10/24 11/10/24 Range/Units 09:56 09:56 12:57 AST 32 (17-59) U/L Troponin I <0.012 <0.012 (0.000-0.034) ng/mL 11/10/24 Range/Units 16:21 AST (17-59) U/L Troponin I <0.012 (0.000-0.034) ng/mL Coagulation 11/10/24 Range/Units 09:56 PT 10.2 (10.0-12.5) sec APTT 24.2 (22.0-30.0) sec CBC 11/10/24 11/11/24 Range/Units 09:56 04:50 WBC 11.04 H 8.65 (4.50-10.00) 10*3/uL RBC 4.36 L 4.41 (4.40-5.60) 10*6/uL Hgb 12.4 L 12.2 L (13.0-17.0) g/dL Hct 37.9 L 38.7 L (39.6-50.0) % Plt Count 427 434 (140-440) 10*3/uL Comprehensive Metabolic Panel 11/10/24 11/10/24 Range/Units 09:56 14:23 Sodium 137 137 (137-145) mmol/L Potassium 5.8 H 4.6 (3.5-5.1) mmol/L Chloride 103 105 (98-107) mmol/L Carbon Dioxide 22 22 (22-30) mmol/L BUN 33 H 29 H (9-20) mg/dL Creatinine 1.29 H 1.19 (0.66-1.25) mg/dL Glucose 152 H 107 H (74-99) mg/dL Calcium 9.7 10.7 H (8.4-10.2) mg/dL AST 32 (17-59) U/L ALT 42 (4-49) U/L Alkaline Phosphatase 103 (38-126) U/L Total Protein 7.9 (6.3-8.2) g/dL Albumin 4.8 (3.5-5.0) g/dL Current Medications Generic Name Dose Route Start Last Admin Trade Name Freq PRN Reason Stop Dose Admin Lipase/Protease/Amylase 1 each 11/10/24 17:30 11/11/24 06:58 Lipase 20,000/Protease 63,000/Amylase 84,000 PO 1 each TID-W/MEALS HEMANTH Administration Aspirin 81 mg 11/11/24 09:00 Aspirin 81 Mg PO DAILY HEMANTH Buspirone HCl 15 mg 11/10/24 21:00 11/10/24 23:14 Buspirone Hcl 10 Mg Tab PO 15 mg BID HEMANTH Administration Cyclobenzaprine HCl 10 mg 11/10/24 16:00 11/11/24 01:26 Cyclobenzaprine 10 Mg Tab PO 10 mg Q8HR HEMANTH Administration Dapagliflozin 10 mg 11/11/24 09:00 Dapagliflozin Propanediol 10 Mg Tablet PO DAILY HEMANTH Dextrose/Water 25 ml 11/10/24 13:28 Dextrose 50% Syringe 50 Ml IVP PER PROTOCOL PRN Hypoglycemia Protocol Dextrose/Water 50 ml 11/10/24 13:28 Dextrose 50% Syringe 50 Ml IVP PER PROTOCOL PRN Hypoglycemia Protocol Escitalopram Oxalate 20 mg 11/11/24 09:00 Escitalopram 20 Mg Tab PO DAILY HEMANTH Famotidine 40 mg 11/10/24 21:00 11/10/24 22:28 Famotidine 20 Mg Tab PO 40 mg HS HEMANTH Administration Fenofibrate 160 mg 11/11/24 09:00 Fenofibrate 160 Mg Tab PO DAILY HEMANTH Ferrous Sulfate 325 mg 11/11/24 09:00 Ferrous Sulfate 325 Mg Tab PO DAILY [facility] Fluticasone Propionate 1 spray 11/11/24 09:00 Fluticasone Nasal 50mcg/[place] 16gm Btl EA NOSTRIL DAILY [facility] Gabapentin 1,200 mg 11/10/24 16:00 11/10/24 22:28 Gabapentin 400 Mg Cap PO 1,200 mg TID HEMANTH Administration Heparin Sodium (Porcine) 5,000 unit 11/10/24 16:00 11/11/24 01:26 Heparin Sodium,Porcine 5,000 Unit/Ml 1 Ml Vial SQ 5,000 unit Q8HR HEMANTH Administration Hydroxyzine Pamoate 50 mg 11/10/24 13:21 11/10/24 16:05 Hydroxyzine Pamoate 25 Mg Cap PO 50 mg TID PRN Administration Anxiety Insulin Glargine 10 unit 11/10/24 21:00 11/10/24 22:46 Insulin Glargine (Lantus) 100 Unit/Ml Syr SQ 10 unit HS [facility] Administration Insulin Human Lispro 3 unit 11/10/24 17:30 11/10/24 18:10 Insulin Lispro (Humalog) 100 Unit/Ml 10 Ml Vl SQ 3 unit AC-TID HEMANTH Administration Insulin Human Lispro 0 unit 11/10/24 17:30 11/11/24 06:08 Insulin Lispro (Humalog) 100 Unit/Ml 10 Ml Vl SQ Not Given ACHS [facility] Protocol Lidocaine 3 patch 11/11/24 09:00 Lidocaine 4% Patch TOPICAL DAILY [facility] Protocol Morphine Sulfate 1 mg 11/10/24 14:23 11/10/24 22:45 Morphine Sulfate 2 Mg/Ml Syringe IVP 1 mg Q4HR PRN Administration Pain/Discomfort Naloxone HCl 0.2 mg 11/10/24 14:23 Naloxone 0.4 Mg/Ml 1 Ml Vial IV Q2M PRN Opioid Reversal Nitroglycerin 0.4 mg 11/10/24 12:20 Nitroglycerin Sl Tabs 0.4 Mg Tab SUBLINGUAL Q5M PRN Chest Pain Nitroglycerin 1 inch 11/10/24 18:00 11/11/24 05:54 Nitroglycerin Oint 1 Inch/Gm Packet TOPICAL Not Given Q6HR [facility] Oxycodone/Acetaminophen 1 each 11/11/24 09:00 Oxycodone-Apap 5-325mg 1 Each Tab PO DAILY [facility] Pantoprazole Sodium 40 mg 11/11/24 07:30 11/11/24 06:58 Pantoprazole 40 Mg Tablet PO 40 mg [id number] [facility] Administration Pravastatin Sodium 40 mg 11/10/24 21:00 11/10/24 23:14 Pravastatin Sodium 40 Mg Tab PO 40 mg HS [facility] Administration Quetiapine Fumarate 400 mg 11/10/24 21:00 11/10/24 23:14 Quetiapine 400 Mg Tab PO 400 mg HS [facility] Administration Senna 17.2 mg 11/10/24 21:00 11/10/24 22:28 Sennosides 8.6 Mg Tab PO 17.2 mg HS [facility] Administration Intake and Output 11/10/24 11/11/24 11/11/24 22:59 06:59 14:59 Other: Voiding Method Toilet # Voids 1 2 Weight 70.307 kg 11/11/24 04:50 11/10/24 14:23
--- NOTE | 2024-11-11 17:08 | P.PN ---
Subjective Progress Note Date: 11/11/24 Hospital Course: [] Pertinent Imaging: Patient is a 59-year-old male with past medical history of alcoholic cirrhosis, alcohol induced pancreatitis, history of alcohol use disorder in remission, tardive dyskinesia, chronic low back pain with history of multiple back surgeries, type II DM (last A1c 9.3 on 08/26/2024,), GERD, hyperlipidemia, hypertension, CKD 3a, who presented to the ER on 11/10 due to elevated blood pressure with associated headache and chest pressure. Chest pressure was no nradiating, no diaphoresis, no shortness of breath, abdominal pain, nausea, vomiting, fever, chills. Patient states that his blood pressure normally runs at 100 over 70s, he previously was on midodrine 5 twice daily for symptomatic hypotension, however, his symptoms resolved and blood pressure improved, thus, around 1 month ago he stopped midodrine. Today he noted his blood pressure to be going up to 160s systolic, he took propranolol 20 3 times with no improvement and decided to come for further evaluation On arrival afebrile, heart rate in 80s, initial BP 202/132, SpO2 99% on room air. Blood work showed mild leukocytosis 11.04, hemoglobin 12.4, stable from August, platelet count 427, normal coagulation panel, creatinine 1.29 around baseline, potassium 5.8, normal sodium, bicarb, chloride, magnesium, troponin negative, normal AST, ALT, total bilirubin. EKG nonischemic, QTc 415. CT head showed no signs of bleeding patient was loaded with aspirin, admitted under observation status with cardiology consultation. ACS has been ruled out, cardiology recommended TTE, discontinuation of midodrine. TTE is pending 11/11: Patient examined at bedside, no active chest pain Subjective: Pertinent positives and negatives as discussed above, a complete review of systems was performed and all other systems are negative. Vitals Signs Reviewed. General: [nontoxic], [no distress], [appears at stated age] Derm: [warm], [dry] Head: [atraumatic], [normocephalic], [symmetric] Eyes: [EOMI], [no lid lag], [anicteric sclera] Mouth: [no lip lesion], [mucus membranes moist] Cardiovascular: [S1S2 reg], [no murmur] Lungs: [CTA bilateral], [no rhonchi, no rales] , [no accessory muscle use] Abdominal: [soft], [ nontender to palpation], [no guarding], [no appreciable organomegaly] Ext: [no gross muscle atrophy], [no edema], [no contractures] Neuro: [ CN II-XI grossly intact], [no focal neuro deficits] Psych: [Alert], [oriented], [appropriate affect] Assessment and Plan:Hypertensive urgency Chest pressure Hypertension Headache Cardiology consulted, appreciate recommendations, plan for TTE, pending, glucose noted elevated to 424, LDL 136, A1c pending, TSH normal 2.5 -Continue aspirin 81 mg daily, fenofibrate 160 p.o. daily pravastatin 40 Hyperkalemia -Recheck BMP ordered hx if chronic alcohol induced pancreatitis history of alcohol use disorder in remission tardive dyskinesia chronic low back pain with history of multiple back surgeries:Flexeril 10 mg p.o. every 8 hours added morphine 1 mg every 4 hours as needed for breakthrough pain, patient has scheduled pain clinic appointment next week. - Continue buspirone 15 mg p.o. twice daily, - Continue Lexapro 20 mg p.o. daily, gabapentin 1200 p.o. 3 times daily, lidocaine patch, Percocet 5 1 tablet daily, quetiapine 400 mg nightly -Continue home [id number],0000 unit 3 times daily with meals type II DM (last A1c 9.3 on 08/26/2024,: Hold home metformin 100 mg twice daily, glipizide 20 mg p.o. twice daily, continue Jardiance 25 mg p.o. daily, start Accu-Cheks, low intensity SSI, basal bolus with Lantus 10 and mealtime 3 units, hypoglycemia precautions GERD: Continue Protonix 20 twice daily, famotidine 40 mg nightly hyperlipidemia: Continue home fenofibrate 160 mg p.o. daily, pravastatin 40 mg p.o. nightly hypertension: Patient takes midodrine at home, will hold CKD 3a: At baseline, monitor BMP CODE STATUS: DNR/DNI DVT prophylaxis: Heparin Anticipated discharge date: 11/[address]: Home Objective - Vital Signs Vital signs: Vital Signs Temp 97.8 F 11/11/24 14:36 Pulse 104 H 11/11/24 14:36 Resp 16 11/11/24 14:36 BP 90/62 11/11/24 14:36 Pulse Ox 97 11/11/24 14:36 FiO2 Intake & Output 11/10/24 11/11/24 11/11/24 18:59 06:59 18:59 Intake Total 118 Balance 118 Weight 70.307 kg 70.307 kg Intake: Oral 118 Other: Voiding Method Toilet # Voids 2 4 - Labs CBC & Chem 7: 11/11/24 04:50 11/11/24 04:50 Labs: Abnormal Lab Results - Last 24 Hours (Table) 11/10/24 11/10/24 11/10/24 Range/Units 17:52 21:27 21:59 Hgb (13.0-17.0) g/dL Hct (39.6-50.0) % MCHC (32.0-37.0) g/dL RDW (11.5-14.5) % MPV (9.5-12.2) FL Eosinophils # (0.04-0.35) X 10*3/uL Basophils # (0.00-0.10) X 10*3/uL Sodium (135-145) mmol/L Carbon Dioxide (21.6-31.8) mmol/L Anion Gap (4.00-12.00) mmol/L BUN (9.0-27.0) mg/dL Est GFR (CKD-EPI) (>=60) BUN/Creatinine Ratio (12.00-20.00) Ratio Glucose (70-110) mg/dL POC Glucose (mg/dL) 215 H 185 H 176 H (70-110) mg/dL Triglycerides (0.00-149.00) mg/dL Cholesterol (0.00-200.00) mg/dL LDL Cholesterol Direct (0.00-129.00) mg/dL VLDL Cholesterol, Calc (5.00-40.00) mg/dL 11/11/24 11/11/24 11/11/24 Range/Units 04:50 04:50 06:01 Hgb 12.2 L (13.0-17.0) g/dL Hct 38.7 L (39.6-50.0) % MCHC 31.5 L (32.0-37.0) g/dL RDW 16.6 H (11.5-14.5) % MPV 9.4 L (9.5-12.2) FL Eosinophils # 0.56 H (0.04-0.35) X 10*3/uL Basophils # 0.11 H (0.00-0.10) X 10*3/uL Sodium 134 L (135-145) mmol/L Carbon Dioxide 20.9 L (21.6-31.8) mmol/L Anion Gap 14.10 H (4.00-12.00) mmol/L BUN 28.2 H (9.0-27.0) mg/dL Est GFR (CKD-EPI) 58 L (>=60) BUN/Creatinine Ratio 20.14 H (12.00-20.00) Ratio Glucose 205 H (70-110) mg/dL POC Glucose (mg/dL) 196 H (70-110) mg/dL Triglycerides 424.00 H (0.00-149.00) mg/dL Cholesterol 248.00 H (0.00-200.00) mg/dL LDL Cholesterol Direct 136.00 H (0.00-129.00) mg/dL VLDL Cholesterol, Calc 84.80 H (5.00-40.00) mg/dL 11/11/24 Range/Units 12:13 Hgb (13.0-17.0) g/dL Hct (39.6-50.0) % MCHC (32.0-37.0) g/dL RDW (11.5-14.5) % MPV (9.5-12.2) FL Eosinophils # (0.04-0.35) X 10*3/uL Basophils # (0.00-0.10) X 10*3/uL Sodium (135-145) mmol/L Carbon Dioxide (21.6-31.8) mmol/L Anion Gap (4.00-12.00) mmol/L BUN (9.0-27.0) mg/dL Est GFR (CKD-EPI) (>=60) BUN/Creatinine Ratio (12.00-20.00) Ratio Glucose (70-110) mg/dL POC Glucose (mg/dL) 203 H (70-110) mg/dL Triglycerides (0.00-149.00) mg/dL Cholesterol (0.00-200.00) mg/dL LDL Cholesterol Direct (0.00-129.00) mg/dL VLDL Cholesterol, Calc (5.00-40.00) mg/dL
[2024-11-11 17:35] LABS: Glucose,Whole Blood 172 mg/dL (70-110)
[2024-11-11 19:52] LABS: Glucose,Whole Blood 157 mg/dL (70-110)
[2024-11-12 06:12] LABS: Glucose,Whole Blood 183 mg/dL (70-110)
--- NOTE | 2024-11-12 11:10 | P.PN ---
Subjective HISTORY OF PRESENT ILLNESS: This is a 59-year-old male with a past medical history significant for hypertension, hyperlipidemia, diabetes, chronic kidney disease, and alcohol abuse. Patient follows in the office with Dr. Garcia but has not been seen since November 2023. We have been asked to see the patient in consultation for chest pain. Patient examined at the bedside. Patient states he was having anxiety yesterday and alot of stress in his life. He checked his BP which was in the 160s. He took a propanolol and checked it in 2 hours but it was still high so he took another one and then came to the hospital for further evaluation. He reports mild CP. This morning he reports anxiety but no further chest pain or shortness of breath. DIAGNOSTICS: - EKG reveals sinus mechanism with no signs of acute ischemia. - Chest xray improved left lower lobe infiltrate. Residual remains.. - Laboratory data: WBC 8.65. Hemoglobin 12.2. Platelet count 434. Sodium 137. Potassium 4.6. BUN 29. Creatinine 1.19. Troponin negative x 3 - Current home cardiac medications include fenofibrate 160 mg daily, midodrine 5 mg twice a day, Pravachol 40 mg at night,. - Most recent echocardiogram obtained in September 2021 revealing ejection fraction 60 to 65%, mild TR - Cardiac catheterization history: May 2020 revealing normal coronary arteries 11/12/2024 Patient examined this morning at the bedside. Patient currently denies chest pain or pressure. He denies shortness of breath. Patient is concerned because he states his blood pressures were low overnight. Blood pressure charted overnight with systolic greater than 90s. Blood pressure this morning 105/74. Patient without complaints of dizziness or lightheadedness. PHYSICAL EXAM: VITAL SIGNS: Reviewed. GENERAL: Well-developed in no acute distress. HEENT: Head is normocephalic. Pupils are equal, round. Sclerae anicteric. Mucous membranes of the mouth are moist. Neck supple. No JVD or thyromegaly LUNGS: Respirations even and unlabored. Lungs essentially clear to auscultation bilaterally. HEART: Regular rate and rhythm. S1 and S2 heard. ABDOMEN: Soft. Nondistended. Nontender. EXTREMITIES: Normal range of motion. No clubbing or cyanosis. Peripheral pulses intact. No lower extremity edema NEUROLOGIC: Awake and alert. Oriented x 3. ASSESSMENT: Hypertensive emergency 202/132 on admission Chest pain, ACS ruled out History of hypertension History of hyperlipidemia History of diabetes Chronic kidney disease History of alcohol abuse, currently sober Chronic low back pain with previous surgery PLAN: An acute coronary event has been ruled out 2D echo ordered. Await results. Hold midodrine. Do not resume upon discharge. Continue to monitor blood pressure May discharge home today pending echo results Further recommendations pending patient course Nurse practitioner note has been reviewed by physician. Signing provider agrees with the documented findings, assessment, and plan of care documented by [employer]IST as a scribe. Objective - Vital Signs Vital signs: Vital Signs Temp 97.7 F 11/12/24 07:00 Pulse 106 H 11/12/24 07:00 Resp 16 11/12/24 08:00 BP 105/74 11/12/24 07:00 Pulse Ox 98 11/12/24 07:00 FiO2 Intake & Output 11/11/24 11/12/24 11/12/24 18:59 06:59 18:59 Intake Total 118 118 Balance 118 118 Intake: Oral 118 118 Other: Voiding Method Toilet Toilet # Voids 4 2 - Labs CBC & Chem 7: 11/11/24 04:50 11/11/24 04:50 Labs: Abnormal Lab Results - Last 24 Hours (Table) 11/11/24 11/11/24 11/11/24 Range/Units 12:13 17:34 19:51 POC Glucose (mg/dL) 203 H 172 H 157 H (70-110) mg/dL 11/12/24 Range/Units 06:10 POC Glucose (mg/dL) 183 H (70-110) mg/dL
[2024-11-12 11:32] LABS: Glucose,Whole Blood 187 mg/dL (70-110)
--- NOTE | 2024-11-12 13:52 | P.DS ---
Providers Date of admission: 11/10/24 12:21 Attending physician: Ezio Smith MD Consults: 11/10/24 12:20 Consult Physician Urgent Consulting Provider: [facility] Consult Reason/Comments: Chest pain Do you want consulting provider notified?: Yes Primary care physician: Agustina Yeung MD Hospital Course: Discharge Diagnosis: Hypertensive emergency, resolved Chest pain, ACS has been ruled out Chest pressure, resolved hx if chronic alcohol induced pancreatitis history of alcohol use disorder in remission tardive dyskinesia chronic low back pain with history of multiple back surgeries Type II DM GERD Hyperlipidemia Hypertension CKD 3 Hospital Course: Patient is a 59-year-old male with past medical history of alcoholic cirrhosis, alcohol induced pancreatitis, history of alcohol use disorder in remission, tardive dyskinesia, chronic low back pain with history of multiple back surgeries, type II DM (last A1c 9.3 on 08/26/2024,), GERD, hyperlipidemia, hypertension, CKD 3a, who presented to the ER on 11/10 due to elevated blood pressure with associated headache and chest pressure. Chest pressure was nonradiating, no diaphoresis, no shortness of breath, abdominal pain, nausea, vomiting, fever, chills. Patient states that his blood pressure normally runs at 100 over 70s, he previously was on midodrine 5 twice daily for symptomatic hypotension, however, his symptoms resolved and blood pressure improved, thus, around 1 month ago he stopped midodrine. Today he noted his blood pressure to be going up to 160s systolic, he took propranolol 20 3 times with no improvement and decided to come for further evaluation On arrival afebrile, heart rate in 80s, initial BP 202/132, SpO2 99% on room air. Blood work showed mild leukocytosis 11.04, hemoglobin 12.4, stable from A pril, platelet count 427, normal coagulation panel, creatinine 1.29 around baseline, potassium 5.8, normal sodium, bicarb, chloride, magnesium, troponin negative, normal AST, ALT, total bilirubin. EKG nonischemic, QTc 415. CT head showed no signs of bleeding patient was loaded with aspirin, admitted under observation status with cardiology consultation. ACS has been ruled out, cardiology recommended TTE, discontinuation of midodrine. TTE was performed however could not be read due to EMR downtime, discussed with cardiology, patient can be discharged with outpatient follow-up Patient will be discharged home with PCP and cardiology follow-up Patient seen and examined at bedside. Vital signs reviewed and stable. General: [nontoxic], [no distress], [appears at stated age] Derm: [warm], [dry] Head: [atraumatic], [normocephalic], [symmetric] Eyes: [EOMI], [no lid lag], [anicteric sclera] Mouth: [no lip lesion], [mucus membranes moist] Cardiovascular: [S1S2 reg], [no murmur] Lungs: [CTA bilateral], [no rhonchi, no rales] , [no accessory muscle use] Abdominal: [soft], [ nontender to palpation], [no guarding], [no appreciable organomegaly] Ext: [no gross muscle atrophy], [no edema], [no contractures] Neuro: [ CN II-XI grossly intact], [no focal neuro deficits] Psych: [Alert], [oriented], [appropriate affect] A total of 40 minutes of time were spent preparing this complex discharge summary. Patient was discharged on 11/12/2024. Plan - Discharge Summary Discharge Rx Participant: No New Discharge Prescriptions: New Nitroglycerin Sl Tabs [Nitrostat] 0.4 mg SUBLINGUAL Q5M PRN #30 tab PRN Reason: Chest Pain Continue busPIRone HCL 15 mg PO BID Escitalopram [Lexapro] 20 mg PO DAILY Famotidine 40 mg PO HS Fenofibrate [Lofibra] 160 mg PO DAILY Ferrous Sulfate [Iron (65 MG Elemental)] 325 mg PO DAILY metFORMIN HCL [Glucophage] 1,000 mg PO BID Pravastatin Sodium [Pravachol] 40 mg PO HS Cyclobenzaprine [Flexeril] 10 mg PO Q8H [place]-3/Dha/Epa/Fish Oil [Fish Oil 1,000 mg Softgel] 2 cap PO BID Magnesium Oxide [Magnesium] 500 mg PO DAILY Sennosides [Senokot] 17.2 mg PO HS Calcium Carbonate/Vitamin D3 [Calcium 600-D3 20 mcg (800 Unit)] 1 tab PO DAILY glipiZIDE [Glucotrol] 20 mg PO BID Celecoxib [CeleBREX] 200 mg PO BID oxyCODONE-APAP 5-325MG [Percocet 5-325 mg] 1 tab PO DAILY QUEtiapine [SEROquel] 400 mg PO HS Lipase/Protease/Amylase [Cory Cheema 24,000 Unit Capsule] 24,000 units PO TID- W/MEALS Pantoprazole Sodium [Protonix] 20 mg PO BID Gabapentin 1,200 mg PO TID Multivitamins, Thera [Multivitamin (formulary)] 1 tab PO DAILY Fluticasone Nasal [place] [Flonase Nasal [place]] 1 spray EA NOSTRIL DAILY Vitamin B Complex 1 cap PO DAILY Lidocaine 4% Patch 3 patch TOPICAL DAILY Empagliflozin [Jardiance] 25 mg PO DAILY hydrOXYzine pamoate [Vistaril] 50 mg PO TID PRN PRN Reason: Anxiety Discontinued Midodrine HCl [ProAmatine] 5 mg PO BID Discharge Medication List Lipase/Protease/Amylase [Cory Cheema 24,000 Unit Capsule] 24,000 units PO TID- W/MEALS 12/15/22 [History] Escitalopram [Lexapro] 20 mg PO DAILY 04/02/24 [History] Famotidine 40 mg PO HS 04/02/24 [History] Fenofibrate [Lofibra] 160 mg PO DAILY 04/02/24 [History] Ferrous Sulfate [Iron (65 MG Elemental)] 325 mg PO DAILY 04/02/24 [History] Pantoprazole Sodium [Protonix] 20 mg PO BID 04/02/24 [History] Pravastatin Sodium [Pravachol] 40 mg PO HS 04/02/24 [History] busPIRone HCL 15 mg PO BID 04/02/24 [History] metFORMIN HCL [Glucophage] 1,000 mg PO BID 04/02/24 [History] Gabapentin 1,200 mg PO TID 05/01/24 [History] Calcium Carbonate/Vitamin D3 [Calcium 600-D3 20 mcg (800 Unit)] 1 tab PO DAILY 08/25/24 [History] Celecoxib [CeleBREX] 200 mg PO BID 08/25/24 [History] Cyclobenzaprine [Flexeril] 10 mg PO Q8H 08/25/24 [History] Empagliflozin [Jardiance] 25 mg PO DAILY 08/25/24 [History] Fluticasone Nasal [place] [Flonase Nasal [place]] 1 spray EA NOSTRIL DAILY 08/25/24 [History] Lidocaine 4% Patch 3 patch TOPICAL DAILY 08/25/24 [History] Magnesium Oxide [Magnesium] 500 mg PO DAILY 08/25/24 [History] Multivitamins, Thera [Multivitamin (formulary)] 1 tab PO DAILY 08/25/24 [History] [place]-3/Dha/Epa/Fish Oil [Fish Oil 1,000 mg Softgel] 2 cap PO BID 08/25/24 [History] QUEtiapine [SEROquel] 400 mg PO HS 08/25/24 [History] Sennosides [Senokot] 17.2 mg PO HS 08/25/24 [History] Vitamin B Complex 1 cap PO DAILY 08/25/24 [History] glipiZIDE [Glucotrol] 20 mg PO BID 08/25/24 [History] hydrOXYzine pamoate [Vistaril] 50 mg PO TID PRN 08/25/24 [History] oxyCODONE-APAP 5-325MG [Percocet 5-325 mg] 1 tab PO DAILY 08/25/24 [History] Nitroglycerin Sl Tabs [Nitrostat] 0.4 mg SUBLINGUAL Q5M PRN #30 tab 11/11/24 [Rx] Follow up Appointment(s)/Referral(s): Agustina Yeung MD [Primary Care Provider] - 1-2 days Fiordaliza Morton MD [STAFF PHYSICIAN] - 1 Week Patient Instructions/Handouts: Chest Pain (DC) Activity/Diet/Wound Care/Special Instructions: Please, follow-up with your primary care physician, follow-up with cardiology regarding your echo results that are currently pending Please, monitor your blood pressure daily, keep a log of the readings to discuss with your primary care physician and hip hop performers. Discharge Disposition: HOME SELF-CARE
[2024-11-12 17:09] LABS: Glucose,Whole Blood 199 mg/dL (70-110)
[2024-11-12 19:13] LABS: Glucose,Whole Blood 177 mg/dL (70-110)
[2024-11-13 02:00] VITALS: RESP 16
[2024-11-13 05:38] LABS: Glucose,Whole Blood 193 mg/dL (70-110)
--- NOTE | 2024-11-13 07:56 | P.DS ---
Providers Date of admission: 11/10/24 12:21 Attending physician: Ezio Smith MD Consults: 11/10/24 12:20 Consult Physician Urgent Consulting Provider: [facility] Consult Reason/Comments: Chest pain Do you want consulting provider notified?: Yes Primary care physician: Agustina Yeung MD Hospital Course: Discharge Diagnosis: Hypertensive emergency, resolved Chest pain, ACS has been ruled out Chest pressure, resolved hx if chronic alcohol induced pancreatitis history of alcohol use disorder in remission tardive dyskinesia chronic low back pain with history of multiple back surgeries Type II DM GERD Hyperlipidemia Hypertension CKD 3 Hospital Course: Patient is a 59-year-old male with past medical history of alcoholic cirrhosis, alcohol induced pancreatitis, history of alcohol use disorder in remission, tardive dyskinesia, chronic low back pain with history of multiple back surgeries, type II DM (last A1c 9.3 on 08/26/2024,), GERD, hyperlipidemia, hypertension, CKD 3a, who presented to the ER on 11/10 due to elevated blood pressure with associated headache and chest pressure. Chest pressure was nonradiating, no diaphoresis, no shortness of breath, abdominal pain, nausea, vomiting, fever, chills. Patient states that his blood pressure normally runs at 100 over 70s, he previously was on midodrine 5 twice daily for symptomatic hypotension, however, his symptoms resolved and blood pressure improved, thus, around 1 month ago he stopped midodrine. Today he noted his blood pressure to be going up to 160s systolic, he took propranolol 20 3 times with no improvement and decided to come for further evaluation On arrival afebrile, heart rate in 80s, initial BP 202/132, SpO2 99% on room air. Blood work showed mild leukocytosis 11.04, hemoglobin 12.4, stable from A pril, platelet count 427, normal coagulation panel, creatinine 1.29 around baseline, potassium 5.8, normal sodium, bicarb, chloride, magnesium, troponin negative, normal AST, ALT, total bilirubin. EKG nonischemic, QTc 415. CT head showed no signs of bleeding patient was loaded with aspirin, admitted under observation status with cardiology consultation. ACS has been ruled out, cardiology recommended TTE, discontinuation of midodrine. TTE was performed, discussed with cardiology, patient can be discharged without waiting for the results with outpatient follow-up Patient will be discharged home with PCP and cardiology follow-up Patient seen and examined at bedside. Vital signs reviewed and stable. General: [nontoxic], [no distress], [appears at stated age] Derm: [warm], [dry] Head: [atraumatic], [normocephalic], [symmetric] Eyes: [EOMI], [no lid lag], [anicteric sclera] Mouth: [no lip lesion], [mucus membranes moist] Cardiovascular: [S1S2 reg], [no murmur] Lungs: [CTA bilateral], [no rhonchi, no rales] , [no accessory muscle use] Abdominal: [soft], [ nontender to palpation], [no guarding], [no appreciable organomegaly] Ext: [no gross muscle atrophy], [no edema], [no contractures] Neuro: [ CN II-XI grossly intact], [no focal neuro deficits] Psych: [Alert], [oriented], [appropriate affect] A total of 40 minutes of time were spent preparing this complex discharge summary. Patient was discharged on 11/13/2024. Plan - Discharge Summary Discharge Rx Participant: No New Discharge Prescriptions: New Nitroglycerin Sl Tabs [Nitrostat] 0.4 mg SUBLINGUAL Q5M PRN #30 tab PRN Reason: Chest Pain Continue busPIRone HCL 15 mg PO BID Escitalopram [Lexapro] 20 mg PO DAILY Famotidine 40 mg PO HS Fenofibrate [Lofibra] 160 mg PO DAILY Ferrous Sulfate [Iron (65 MG Elemental)] 325 mg PO DAILY metFORMIN HCL [Glucophage] 1,000 mg PO BID Pravastatin Sodium [Pravachol] 40 mg PO HS Cyclobenzaprine [Flexeril] 10 mg PO Q8H [place]-3/Dha/Epa/Fish Oil [Fish Oil 1,000 mg Softgel] 2 cap PO BID Magnesium Oxide [Magnesium] 500 mg PO DAILY Sennosides [Senokot] 17.2 mg PO HS Calcium Carbonate/Vitamin D3 [Calcium 600-D3 20 mcg (800 Unit)] 1 tab PO DAILY glipiZIDE [Glucotrol] 20 mg PO BID Celecoxib [CeleBREX] 200 mg PO BID oxyCODONE-APAP 5-325MG [Percocet 5-325 mg] 1 tab PO DAILY QUEtiapine [SEROquel] 400 mg PO HS Lipase/Protease/Amylase [Creon Dr 24,000 Unit Capsule] 24,000 units PO TID- W/MEALS Pantoprazole Sodium [Protonix] 20 mg PO BID Gabapentin 1,200 mg PO TID Multivitamins, Thera [Multivitamin (formulary)] 1 tab PO DAILY Fluticasone Nasal [place] [Flonase Nasal [place]] 1 spray EA NOSTRIL DAILY Vitamin B Complex 1 cap PO DAILY Lidocaine 4% Patch 3 patch TOPICAL DAILY Empagliflozin [Jardiance] 25 mg PO DAILY hydrOXYzine pamoate [Vistaril] 50 mg PO TID PRN PRN Reason: Anxiety Discontinued Midodrine HCl [ProAmatine] 5 mg PO BID Discharge Medication List Lipase/Protease/Amylase [Cory Cheema 24,000 Unit Capsule] 24,000 units PO TID-W/MEALS 12/15/22 [History] Escitalopram [Lexapro] 20 mg PO DAILY 04/02/24 [History] Famotidine 40 mg PO HS 04/02/24 [History] Fenofibrate [Lofibra] 160 mg PO DAILY 04/02/24 [History] Ferrous Sulfate [Iron (65 MG Elemental)] 325 mg PO DAILY 04/02/24 [History] Pantoprazole Sodium [Protonix] 20 mg PO BID 04/02/24 [History] Pravastatin Sodium [Pravachol] 40 mg PO HS 04/02/24 [History] busPIRone HCL 15 mg PO BID 04/02/24 [History] metFORMIN HCL [Glucophage] 1,000 mg PO BID 04/02/24 [History] Gabapentin 1,200 mg PO TID 05/01/24 [History] Calcium Carbonate/Vitamin D3 [Calcium 600-D3 20 mcg (800 Unit)] 1 tab PO DAILY 08/25/24 [History] Celecoxib [CeleBREX] 200 mg PO BID 08/25/24 [History] Cyclobenzaprine [Flexeril] 10 mg PO Q8H 08/25/24 [History] Empagliflozin [Jardiance] 25 mg PO DAILY 08/25/24 [History] Fluticasone Nasal [place] [Flonase Nasal [place]] 1 spray EA NOSTRIL DAILY 08/25/24 [History] Lidocaine 4% Patch 3 patch TOPICAL DAILY 08/25/24 [History] Magnesium Oxide [Magnesium] 500 mg PO DAILY 08/25/24 [History] Multivitamins, Thera [Multivitamin (formulary)] 1 tab PO DAILY 08/25/24 [History] [place]-3/Dha/Epa/Fish Oil [Fish Oil 1,000 mg Softgel] 2 cap PO BID 08/25/24 [History] QUEtiapine [SEROquel] 400 mg PO HS 08/25/24 [History] Sennosides [Senokot] 17.2 mg PO HS 08/25/24 [History] Vitamin B Complex 1 cap PO DAILY 08/25/24 [History] glipiZIDE [Glucotrol] 20 mg PO BID 08/25/24 [History] hydrOXYzine pamoate [Vistaril] 50 mg PO TID PRN 08/25/24 [History] oxyCODONE-APAP 5-325MG [Percocet 5-325 mg] 1 tab PO DAILY 08/25/24 [History] Nitroglycerin Sl Tabs [Nitrostat] 0.4 mg SUBLINGUAL Q5M PRN #30 tab 11/11/24 [Rx] Follow up Appointment(s)/Referral(s): Fiordaliza Morton MD [STAFF PHYSICIAN] - 1 Week Agustina Yeung MD [Primary Care Provider] - 1-2 days Patient Instructions/Handouts: Chest Pain (DC) Activity/Diet/Wound Care/Special Instructions: Please, follow-up with your primary care physician, follow-up with cardiology regarding your echo results that are currently pending Please, monitor your blood pressure daily, keep a log of the readings to discuss with your primary care physician and nursing clerk. Discharge Disposition: HOME SELF-CARE
[2024-11-13 10:32] VITALS: BP 124/85; PULSE 113; TEMP 97.7
--- NOTE | 2024-11-13 10:42 | P.PN ---
Subjective HISTORY OF PRESENT ILLNESS: This is a 59-year-old male with a past medical history significant for hypertension, hyperlipidemia, diabetes, chronic kidney disease, and alcohol abuse. Patient follows in the office with Dr. Garcia but has not been seen since November 2023. We have been asked to see the patient in consultation for chest pain. Patient examined at the bedside. Patient states he was having anxiety yesterday and alot of stress in his life. He checked his BP which was in the 160s. He took a propanolol and checked it in 2 hours but it was still high so he took another one and then came to the hospital for further evaluation. He reports mild CP. This morning he reports anxiety but no further chest pain or shortness of breath. DIAGNOSTICS: - EKG reveals sinus mechanism with no signs of acute ischemia. - Chest xray improved left lower lobe infiltrate. Residual remains.. - Laboratory data: WBC 8.65. Hemoglobin 12.2. Platelet count 434. Sodium 137. Potassium 4.6. BUN 29. Creatinine 1.19. Troponin negative x 3 - Current home cardiac medications include fenofibrate 160 mg daily, midodrine 5 mg twice a day, Pravachol 40 mg at night,. - Most recent echocardiogram obtained in September 2021 revealing ejection fraction 60 to 65%, mild TR - Cardiac catheterization history: May 2020 revealing normal coronary arteries 11/12/2024 Patient examined this morning at the bedside. Patient currently denies chest pain or pressure. He denies shortness of breath. Patient is concerned because he states his blood pressures were low overnight. Blood pressure charted overnight with systolic greater than 90s. Blood pressure this morning 105/74. Patient without complaints of dizziness or lightheadedness. 11/13/2024 Patient examined this morning at the bedside. Patient without complaints of chest pain or pressure. He denies shortness of breath. Denies any dizziness or lightheadedness. Blood pressure is stable with a systolic around 100. PHYSICAL EXAM: VITAL SIGNS: Reviewed. GENERAL: Well-developed in no acute distress. HEENT: Head is normocephalic. Pupils are equal, round. Sclerae anicteric. Mucous membranes of the mouth are moist. Neck supple. No JVD or thyromegaly LUNGS: Respirations even and unlabored. Lungs essentially clear to auscultation bilaterally. HEART: Regular rate and rhythm. S1 and S2 heard. ABDOMEN: Soft. Nondistended. Nontender. EXTREMITIES: Normal range of motion. No clubbing or cyanosis. Peripheral pulses intact. No lower extremity edema NEUROLOGIC: Awake and alert. Oriented x 3. ASSESSMENT: Hypertensive emergency 202/132 on admission Chest pain, ACS ruled out History of hypertension History of hyperlipidemia History of diabetes Chronic kidney disease History of alcohol abuse, currently sober Chronic low back pain with previous surgery PLAN: An acute coronary event has been ruled out 2D echo ordered. Await results. Hold midodrine. Do not resume upon discharge. Continue to monitor blood pressure May discharge home today pending echo results Further recommendations pending patient course Nurse practitioner note has been reviewed by physician. Signing provider agrees with the documented findings, assessment, and plan of care documented by [facility] SPECIALIST as a scribe. Objective - Vital Signs Vital signs: Vital Signs Temp 97.7 F 11/13/24 08:30 Pulse 113 H 11/13/24 08:30 Resp 16 11/13/24 08:30 BP 124/85 11/13/24 08:30 Pulse Ox 96 11/13/24 08:30 FiO2 Intake & Output 11/12/24 11/13/24 11/13/24 18:59 06:59 18:59 Intake Total 118 Output Total 600 620 Balance -482 -620 Intake: Oral 118 Output: Urine 600 620 Other: Voiding Method Toilet Toilet Toilet Urinal Urinal # Bowel Movements 0 - Labs CBC & Chem 7: 11/11/24 04:50 11/11/24 04:50 Labs: Abnormal Lab Results - Last 24 Hours (Table) 11/12/24 11/12/24 11/12/24 Range/Units 11:30 17:07 19:11 POC Glucose (mg/dL) 187 H 199 H 177 H (70-110) mg/dL 11/13/24 Range/Units 05:37 POC Glucose (mg/dL) 193 H (70-110) mg/dL
--- NOTE | 2024-11-13 12:17 | CA ---
Transthoracic Echo Report Name: Andrea Elliott Age: 59 Gender: M : 1965 Exam Date: 11/13/2024 07:28 Exam Location: [facility] [facility] Ht (in): 67 Wt (lb): 155 Ordering Physician: Ashley Max Attending/Referring Phys: [id number], [employer] Repair Technician Tereza Al, RDTOY Procedure CPT: Indications: Chest pain, uncontrolled hypertension Cardiac Hx: Technical Quality: Fair Contrast 1: Total Dose (mL): Contrast 2: Total Dose (mL): MEASUREMENTS (Male / Female) Normal Values 2D ECHO LV Diastolic Diameter PLAX 4.1 cm 4.2 - 5.9 / 3.9 - 5.3 cm LV Systolic Diameter PLAX 3.0 cm IVS Diastolic Thickness 1.1 cm 0.6 - 1.0 / 0.6 - 0.9 cm LVPW Diastolic Thickness 1.4 cm 0.6 - 1.0 / 0.6 - 0.9 cm LV Relative Wall Thickness 0.6 RV Internal Dim ED PLAX 2.4 cm LVOT Diameter 1.8 cm LA Systolic Diameter LX 4.2 cm 3.0 - 4.0 / 2.7 - 3.8 cm LV Diastolic Volume MOD 2C 32.9 cm??? LV Systolic Volume MOD 2C 10.5 cm??? LV Ejection Fraction MOD 2C 68.1 % LV Cardiac Index MOD 2C 1309.7 cm???/min???m??? LV Diastolic Length 2C 6.7 cm LV Systolic Length 2C 5.4 cm M-MODE Aortic Root Diameter MM 3.5 cm LA Systolic Diameter MM 3.9 cm LA Ao Ratio MM 1.1 AV Cusp Separation MM 1.5 cm DOPPLER AV Peak Velocity 123.2 cm/s AV Peak Gradient 6.1 mmHg AV Mean Velocity 86.9 cm/s AV Mean Gradient 3.5 mmHg AV Velocity Time Integral 20.7 cm MV Peak Velocity 172.8 cm/s MV Peak Gradient 11.9 mmHg MV Mean Velocity 83.0 cm/s MV Mean Gradient 3.6 mmHg MV Velocity Time Integral 25.6 cm MV Area PHT 3.2 cm??? Mitral E Point Velocity 72.9 cm/s Mitral A Point Velocity 158.6 cm/s Mitral E to A Ratio 0.5 MV Deceleration Time 237.4 ms TR Peak Velocity 201.7 cm/s TR Peak Gradient 16.3 mmHg FINDINGS Left Ventricle Left ventricular ejection fraction is estimated at 55-60 %. Normal left ventricular systolic function with no obvious regional wall motion abnormalities. Left ventricular cavity size normal. Mildly increased left ventricular wall thickness. Right Ventricle Normal right ventricular size and function. Right ventricular systolic pressure within normal limits. Right Atrium Normal right atrial size. Left Atrium Mildly increased left atrial diameter. Mitral Valve Mitral valve thickened. Mitral annular calcification. Mild mitral stenosis, MV Mean PG 3.6mmHg. Mild mitral regurgitation. Aortic Valve Trileaflet aortic valve. No aortic stenosis. No aortic regurgitation. Diffuse thickening (sclerosis) of the aortic valve cusps without reduced excursion. Tricuspid Valve Structurally normal tricuspid valve. mild tricuspid regurgitation. No tricuspid stenosis. Pulmonic Valve Structurally normal pulmonic valve. Trace pulmonic regurgitation. No pulmonic stenosis. Pericardium Echo free space anterior to the right ventricle likely represents a fat pad. Aorta Aorta at upper limits of normal. CONCLUSIONS 1. Normal ventricular size and systolic function 2. Mild mitral regurgitation 3. Mild tricuspid regurgitation with no evidence of pulmonary hypertension Previewed by: Dr. Fiordaliza Morton MD (Electronically Signed) Final Date: 13 November 2024 12:17
== END 2024-11-13 09:12 | disposition home or self-care (01) ==
LOC: EC 08:35 → 6NMEDSUR 12:21
PROVIDERS: ADMIT Internal Medicine; ATTEND Internal Medicine
DX: I16.1 Hypertensive emergency (principal); I12.9 Hypertensive chronic kidney disease with stage 1 through stage 4 chronic kidney disease, or unspecified chronic kidney disease; N18.31 Chronic kidney disease, stage 3a; E11.22 Type 2 diabetes mellitus with diabetic chronic kidney disease; E78.00 Pure hypercholesterolemia, unspecified; E87.5 Hyperkalemia; K21.9 Gastro-esophageal reflux disease without esophagitis; E11.40 Type 2 diabetes mellitus with diabetic neuropathy, unspecified; F25.9 Schizoaffective disorder, unspecified; F31.9 Bipolar disorder, unspecified; F43.10 Post-traumatic stress disorder, unspecified; G89.29 Other chronic pain; M54.50 Low back pain, unspecified; G24.01 Drug induced subacute dyskinesia; F10.11 Alcohol abuse, in remission; F17.290 Nicotine dependence, other tobacco product, uncomplicated; Z66 Do not resuscitate; Z79.1 Long term (current) use of non-steroidal anti-inflammatories (NSAID); Z79.51 Long term (current) use of inhaled steroids; Z79.82 Long term (current) use of aspirin; Z79.84 Long term (current) use of oral hypoglycemic drugs; Z79.899 Other long term (current) drug therapy; Z88.1 Allergy status to other antibiotic agents
CPT/HCPCS: 96376 ×4; 96372 ×4; 96374; 96375; 99285; 36415; 93005; 93306; 80061; 80053; 80048 ×2; 84443; 83735; 84484; 85025 ×2; 85610; 85730; 83721; 71046; 70450; G0378 ×4; S4990 ×3; J2060; J1644 ×4; J2270 ×4; J1171

== ENCOUNTER → 2024-11-17 | Outpatient (CLI) | payer MEDICARE ==
[2024-11-17 07:51] VITALS: BP 88/64; PULSE 99; RESP 16; TEMP 97.7
--- NOTE | 2024-11-17 15:55 | P.PN ---
Progress Note - Text Progress Note Date: 11/17/24 Paper charting 11/17/24
== END ==
LOC: PNWHC3 07:03
PROVIDERS: ATTEND Specialist
DX: M54.9 Dorsalgia, unspecified (principal); F17.200 Nicotine dependence, unspecified, uncomplicated; Z88.1 Allergy status to other antibiotic agents; Z88.8 Allergy status to other drugs, medicaments and biological substances
CPT/HCPCS: 99202

== ENCOUNTER 2024-12-01 22:58 | Emergency (ER) | payer MEDICARE ==
--- NOTE | 2024-12-01 23:24 | ED ---
Recheck HPI - General Chief Complaint: Recheck/Abnormal Lab/Rx Stated Complaint: High Blood pressure Time Seen by Provider: 12/01/24 23:05 Source: patient, EMS, RN notes reviewed, old records reviewed Mode of arrival: EMS Limitations: no limitations - History of Present Illness Initial Comments: This is a 59-year-old male to the ER for evaluation today. This patient presents today for evaluation regards to some anxiety feels like he is having elevated blood pressure blood pressure at home has been elevated, patient has took an extra blood pressure medication prior to arrival but blood pressure still elevated. I did look at patient's blood pressure list I do not see blood pressure medication MD Complaint: abnormal lab (elevated bloood pressure) Returns Today for: other Symptoms Since Prior Visit: no new symptoms Associated Symptoms: none Treatments Prior to Arrival: other (anxiety) - Related Data Home Medications Medication Instructions Recorded Confirmed Lipase/Protease/Amylase [Creon Dr 24,000 units PO TID-W/MEALS 12/15/22 11/17/24 24,000 Unit Capsule] Escitalopram [Lexapro] 20 mg PO DAILY 04/02/24 11/17/24 Famotidine 40 mg PO HS 04/02/24 11/17/24 Fenofibrate [Lofibra] 160 mg PO DAILY 04/02/24 11/17/24 Ferrous Sulfate [Iron (65 MG 325 mg PO DAILY 04/02/24 11/17/24 Elemental)] Pantoprazole Sodium [Protonix] 20 mg PO BID 04/02/24 11/17/24 Pravastatin Sodium [Pravachol] 40 mg PO HS 04/02/24 11/17/24 busPIRone HCL 15 mg PO BID 04/02/24 11/17/24 metFORMIN HCL [Glucophage] 1,000 mg PO BID 04/02/24 11/17/24 Gabapentin 1,200 mg PO TID 05/01/24 11/17/24 Calcium Carbonate/Vitamin D3 1 tab PO DAILY 08/25/24 11/17/24 [Calcium 600-D3 20 mcg (800 Unit)] Celecoxib [CeleBREX] 200 mg PO BID 08/25/24 11/17/24 Cyclobenzaprine [Flexeril] 10 mg PO Q8H 08/25/24 11/17/24 Empagliflozin [Jardiance] 25 mg PO DAILY 08/25/24 11/17/24 Fluticasone Nasal [place] [Flonase 1 spray EA NOSTRIL DAILY 08/25/24 11/17/24 Nasal [place]] Lidocaine 4% Patch 3 patch TOPICAL DAILY 08/25/24 11/17/24 Magnesium Oxide [Magnesium] 500 mg PO DAILY 08/25/24 11/17/24 Multivitamins, Thera [Multivitamin 1 tab PO DAILY 08/25/24 11/17/24 (formulary)] [place]-3/Dha/Epa/Fish Oil [Fish Oil 2 cap PO BID 08/25/24 11/17/24 1,000 mg Softgel] QUEtiapine [SEROquel] 400 mg PO HS 08/25/24 11/17/24 Sennosides [Senokot] 17.2 mg PO HS 08/25/24 11/17/24 Vitamin B Complex 1 cap PO DAILY 08/25/24 11/17/24 glipiZIDE [Glucotrol] 20 mg PO BID 08/25/24 11/17/24 hydrOXYzine pamoate [Vistaril] 50 mg PO TID PRN 08/25/24 11/17/24 oxyCODONE-APAP 5-325MG [Percocet 1 tab PO DAILY 08/25/24 11/17/24 5-325 mg] Previous Rx's Medication Instructions Recorded Nitroglycerin Sl Tabs [Nitrostat] 0.4 mg SUBLINGUAL Q5M PRN #30 tab 11/11/24 Allergies Allergy/AdvReac Type Severity Reaction Status Date / Time thimerosal Allergy Severe Rash/Hives/throat Verified 12/01/24 23:01 swelling neomycin Allergy Rash/Hives Verified 12/01/24 23:01 Review of Systems ROS Statement: Those systems with pertinent positive or pertinent negative responses have been documented in the HPI. ROS Other: All systems not noted in ROS Statement are negative. Past Medical History Past Medical History: Diabetes Mellitus, GERD/Reflux, Hyperlipidemia, Hypertension, Liver Disease, Renal Disease Additional Past Medical History / Comment(s): Neuropathy, back pain raditating to legs, Cirrhosis, "kidneys don't always work right." , pancreatitis History of Any Multi-Drug Resistant Organisms: None Reported Past Surgical History: Heart Catheterization, Joint Replacement, Orthopedic Surgery Additional Past Surgical History / Comment(s): Bilateral cataracts removed, bilateral hip replacements, right heal surgery with screws/plates/pins placed, L2-L4 cage fussion Past Anesthesia/Blood Transfusion Reactions: No Reported Reaction Past Psychological History: Anxiety, Bipolar, Depression, PTSD, Schizoaffective Disorder Smoking Status: Vaper Past Alcohol Use History: None Reported Past Drug Use History: None Reported - Past Family History Father Family Medical History: Myocardial Infarction (NE) Additional Family Medical History / Comment(s): NE in mid 30's. Mother Family Medical History: Dementia family Additional Family Medical History / Comment(s): Anxiety. General Exam General appearance: alert, in no apparent distress Head exam: Present: atraumatic, normocephalic, normal inspection Eye exam: Present: normal appearance, PERRL, EOMI. Absent: scleral icterus, conjunctival injection, periorbital swelling ENT exam: Present: normal exam, mucous membranes moist Neck exam: Present: normal inspection. Absent: tenderness, meningismus, lymphadenopathy Respiratory exam: Present: normal lung sounds bilaterally. Absent: respiratory distress, wheezes, rales, rhonchi, stridor Cardiovascular Exam: Present: regular rate, normal rhythm, normal heart sounds. Absent: systolic murmur, diastolic murmur, rubs, gallop, clicks GI/Abdominal exam: Present: soft, normal bowel sounds. Absent: distended, tenderness, guarding, rebound, rigid Extremities exam: Present: normal inspection, full ROM, normal capillary refill. Absent: tenderness, pedal edema, joint swelling, calf tenderness Back exam: Present: normal inspection Neurological exam: Present: alert, oriented X3, CN II-XII intact Psychiatric exam: Present: normal affect, normal mood Skin exam: Present: warm, dry, intact, normal color. Absent: rash Course Vital Signs 12/01/24 23:02 Temperature 97.9 F Pulse Rate 70 Respiratory 22 Rate Blood Pressure 128/98 O2 Sat by Pulse 92 L Oximetry - Reevaluation(s) Reevaluation #1: 12/01/24 23:22 Medical records reviewed Reevaluation #2: 12/01/24 23:22 Blood pressure improving throughout ER stay patient has no headache chest pain shortness of breath abdominal pain Reevaluation #3: 12/01/24 23:22 Patient informed of results and questions answered Reevaluation #4: Was pt. sent in by a medical professional or institution ([facility], [facility], urgent care, hospital, or residential...) When possible be specific @ -no Did you speak to anyone other than the patient for history (EMS, parent, family, police, friend...)? What history was obtained from this source @ -no Did you review nursing and triage notes (agree or disagree)? Why? @ -agree Are old charts reviewed (outside hosp., previous admission, EMS record, old EKG, old radiological studies, urgent care reports/EKG's, residential records)? Report findings @ -yes Differential Diagnosis (chest pain, altered mental status, abdominal pain women, abdominal pain men, vaginal bleeding, weakness, fever, dyspnea, syncope, headache, dizziness, GI bleed, back pain, seizure, CVA, palpatations, mental health, musculoskeletal)? @ -prior EKG interpreted by me (3pts min.). @ -yes X-rays interpreted by me (1pt min.). @ -yes negative for acute disease CT interpreted by me (1pt min.). @ -no U/S interpreted by me (1pt. min.). @ -no What testing was considered but not performed or refused? (CT, X-rays, U/S, labs)? Why? @ -none What meds were considered but not given or refused? Why? @ -none Did you discuss the management of the patient with other professionals (professionals i.e. [facility], [facility], lab, RT, psych nurse, social work msw, brush maker machine, teacher, hospital chief executive officer, case finishing machine adjuster)? Give summary @ -no Was smoking cessation discussed for >3mins.? @ -no Was critical care preformed (if so, how long)? @ -no Were there social determinants of health that impacted care today? How? (Homelessness, low income, unemployed, alcoholism, drug addiction, transportation, low edu. Level, literacy, decrease access to med. care, detention, rehab)? @ -none Was there de-escalation of care discussed even if they declined (Discuss DNR or withdrawal of care, Hospice)? DNR status @ -no What co-morbidities impacted this encounter? (DM, HTN, Smoking, COPD, CAD, Cancer, CVA, ARF, Chemo, Hep., AIDS, mental health diagnosis, sleep apnea, morbi d obesity)? @ -none Was patient admitted / discharged? Hospital course, mention meds given and route, prescriptions, significant lab abnormalities, going to OR and other pertinent info. @ - Undiagnosed new problem with uncertain prognosis? @ -no Drug Therapy requiring intensive monitoring for toxicity (Heparin, Nitro, Insulin, Cardizem)? @ -no Were any procedures done? @ -no Diagnosis/symptom? @ - Acute, or Chronic, or Acute on Chronic? @ -Acute Uncomplicated (without systemic symptoms) or Complicated (systemic symptoms)? @ -Complicated Side effects of treatment? @ -no Exacerbation, Progression, or Severe Exacerbation? @ -exacerbation Poses a threat to life or bodily function? How? (Chest pain, [place], [place], pneumonia, PE, COPD, DKA, ARF, appy, cholecystitis, CVA, Diverticulitis, Homicidal, Suicidal, threat to staff... and all critical care pts) @ -yes Medical Decision Making - Medical Decision Making 59 male severe anxiety anxiety reaction. Concern for elevated blood pressure blood pressure normal here in the ER patient is asymptomatic otherwise and can be discharged home - EKG Data -: EKG Interpreted by Me (EKG sinus 71 OK 154 QRS 105 QTc 410) Disposition Clinical Impression: Hypertension, Anxiety Disposition: HOME SELF-CARE Condition: Fair Instructions (If sedation given, give patient instructions): Hypertension (ED), Anxiety (ED) Is patient prescribed a controlled substance at d/c from ED?: No Referrals: Agustina Yeung MD [Primary Care Provider] - 1-2 days Time of Disposition: 23:45
[2024-12-01] MEDS: ONDANSETRON ODT 4 MG TAB PO STA (23:26)
[2024-12-01] MEDS: GABAPENTIN 400 MG CAP PO STA (23:26)
[2024-12-01] MEDS: LORazepam 1 MG TAB PO STA (23:26)
[2024-12-01] MEDS: cloNIDine 0.1 MG/24HR PATCH TRANSDERM STA (23:40)
[2024-12-01 23:50] VITALS: RESP 18; TEMP 97.9
[2024-12-02 00:51] VITALS: BP 104/80; PULSE 68
== END 2024-12-02 00:51 | disposition home or self-care (01) ==
LOC: EC 22:58
DX: I10 Essential (primary) hypertension (principal); F41.9 Anxiety disorder, unspecified; F17.290 Nicotine dependence, other tobacco product, uncomplicated; Z88.7 Allergy status to serum and vaccine; Z88.1 Allergy status to other antibiotic agents
CPT/HCPCS: 99283; 99284

== ENCOUNTER → 2024-12-17 | Outpatient (CLI) | payer MEDICARE ==
[2024-12-17 14:21] LABS: Protein/Creatinine Ratio,Urine 0.197
[2024-12-17 15:48] LABS: Basophils # (A) 0.13 X 10*3/uL (0.00-0.10); Basophils % (A) 1.2 %; Eosinophils # (A) 0.40 X 10*3/uL (0.04-0.35); Eosinophils % (A) 3.7 %; HCT 40.9 % (39.6-50.0); HGB 12.7 g/dL (13.0-17.0); Immature Grans, Automated 0.50 %; Lymphocytes # (A) 2.32 X 10*3/uL (0.90-5.00); Lymphocytes % (A) 21.6 %; MCH 27.9 pg (27.0-32.0); MCHC 31.1 g/dL (32.0-37.0); MCV 89.9 FL (80.0-97.0); Monocytes # (A) 0.59 X 10*3/uL (0.20-1.00); Monocytes % (A) 5.5 %; NRBC Per 100 WBC 0 X 10*3/uL (0.00-0.01); Neutrophils # (A) 7.26 X 10*3/uL (1.80-7.70); Neutrophils % (A) 67.5 %; Platelet Count 402 X 10*3/uL (140-440); RBC 4.55 X 10*6/uL (4.40-5.60); RDW 13.4 % (11.5-14.5); WBC 10.75 X 10*3/uL (4.50-10.00)
[2024-12-17 15:59] LABS: ALT 30 U/L (10-49); AST 22 U/L (14-35); Albumin 4.4 g/dL (3.8-4.9); Albumin/Globulin Ratio 1.69 Ratio (1.60-3.17); Alkaline Phosphatase 112 U/L (41-126); Anion Gap 14.80 mmol/L (4.00-12.00); BUN/Creat Ratio 26.17 Ratio (12.00-20.00); Blood Urea Nitrogen 31.4 mg/dL (9.0-27.0); Calcium 9.7 mg/dL (8.7-10.3); Carbon Dioxide 19.2 mmol/L (21.6-31.8); Chloride 104 mmol/L (96-109); Globulin 2.6 g/dL (1.6-3.3); Glucose 156 mg/dL (70-110); Magnesium 1.9 mg/dL (1.5-2.4); Potassium 5.6 mmol/L (3.5-5.5); Sodium 138 mmol/L (135-145); Total Protein 7.0 g/dL (6.2-8.2)
[2024-12-17 16:00] LABS: Bilirubin,Urine Negative (Negative); Blood,Urine Negative (Negative); Color,Urine Yellow (Yellow); Ketones,Urine Negative (Negative); Nitrite,Urine Negative (Negative); PH, Urine 5.0; Specific Gravity,Urine 1.024 (1.001-1.030); Urobilinogen,Urine 0.2 E.U./DL
== END | disposition home or self-care (01) ==
LOC: LABWHC1 10:46
PROVIDERS: ATTEND Nurse Practitioner Acute Care
DX: N18.31 Chronic kidney disease, stage 3a (principal)
CPT/HCPCS: 36415; 80053; 81003; 82043; 82570; 83735; 84100; 84156; 85025